=== PATIENT | female | born 1990 | race African-American/Black ===

== ENCOUNTER 2020-01-13 15:50 | Observation (INO) | payer MEDICAID, SELFPAY ==
[2020-01-14 03:30] VITALS: BMI 24.0
--- NOTE | 2020-01-14 03:34 | ECG_ITS ---
Test Reason : ALTER MENTAL Blood Pressure : / mmHG Vent. Rate : 083 BPM Atrial Rate : 083 BPM P-R Int : 136 ms QRS Dur : 074 ms QT Int : 416 ms P-R-T Axes : 060 027 055 degrees QTc Int : 488 ms Normal sinus rhythm Prolonged QT Abnormal ECG When compared with ECG of 17-AUG-2019 01:55, Nonspecific T wave abnormality is no longer Present Referred By: Rosalva Pennington Electronically Signed By:TYSON SANCHEZ
[2020-01-15] MEDS: diphenhydrAMINE HCL 50 MG/ML VIAL 25 MG IVPUSH (03:35)
[2020-01-15 04:00] VITALS: BP 165/85; PULSE 82; RESP 18; TEMP 36.6; O2SAT 100
[2020-01-15 08:00] VITALS: BP 149/80; PULSE 80; RESP 18; TEMP 36.7; O2SAT 100
[2020-01-15 09:10] VITALS: PULSE 81
[2020-01-15] MEDS: Insulin Lispro 100 UNIT/ML 3 ML VIAL SUBCUT ×2 (09:10→13:13)
[2020-01-15] MEDS: amLODIPine Besylate 10 MG TABLET PO (09:10)
[2020-01-15 09:11] VITALS: PULSE 81
[2020-01-15] MEDS: carvediloL 12.5 MG TABLET 37.5 MG PO (09:11)
[2020-01-15] MEDS: hydrOXYzine HCL 10 MG TABLET PO (09:12)
[2020-01-15] MEDS: Docusate Sodium 100 MG CAPSULE PO (09:12)
[2020-01-15] MEDS: Insulin Glargine,Hum.rec.anlog 100 UNIT/ML 10 ML VIAL 10 UNIT SUBCUT (09:12)
[2020-01-15] MEDS: Multivitamin TABLET 1 TAB PO (09:13)
[2020-01-15] MEDS: levETIRAcetam 500 MG TABLET 750 MG PO (09:13)
[2020-01-15] MEDS: 0.9 % Sodium Chloride Flush 3 ML SYRINGE 2 ML IVFLUSH ×3 (09:22→17:07)
[2020-01-15 09:47] LABS: Glucose, Whole Blood 485 mg/dL (60-115)
--- NOTE | 2020-01-15 10:36 | PM.PNNEP ---
Subjective Subjective Principal diagnosis: ESRD Interval history: Overall doing OK Had HD yesterday- uneventful Physical Exam Vital Signs and I&O and Narrative: Vital Signs and I&O: Vital Signs Temp 98.0 F 01/15/20 08:00 Pulse 81 01/15/20 09:11 Resp 18 01/15/20 08:00 BP 149/80 H 01/15/20 08:00 Pulse Ox 100 01/15/20 08:00 Intake & Output 01/14/20 01/15/20 01/15/20 18:59 06:59 18:59 Intake Total 240 / 240 240 / 240 Balance 240 / 240 240 / 240 Intake: Intake, Oral [place] unt 240 / 240 240 / 240 Other: Breakfast % Eate n 100% Urine Bathroom Body Mass Index 24.0 Const: General: cooperative HENMT: Head: Yes normal to inspection Neck: Neck: Yes supple Resp: Effort & Inspection: normal respiratory effort Cardio: Jugular venous distension: no JVD Heart sounds: no murmurs Skin: General skin exam: no rashes or lesions noted Neuro: Motor exam (neuro): no asterixis Assessment & Plan Assessment and plan (1) ESRD (end stage renal disease) on dialysis: Status: Chronic Assessment and Plan: HAd HD yesterday No s/s of uremia HAd again on Sunday Time Spent With Patient Time: Total time spent is greater than 50% in coordination of care (as documented) at patient's floor/unit and/or counseling patient:
[2020-01-15 11:19] LABS: Glucose, Whole Blood 225 mg/dL (60-115)
[2020-01-15 11:58] VITALS: BP 153/81; PULSE 82; RESP 18; TEMP 36.6; O2SAT 100
[2020-01-15 12:33] LABS: Anion Gap 19 (12-20); Blood Urea Nitrogen 33 mg/dL (9-16); Calcium 9.2 mg/dL (8.4-10.2); Carbon Dioxide 21 mmol/L (22-29); Chloride 95 mmol/L (96-108); Creatinine Clr Calc Pharmacy 9.9; Estimated Glomerular Filt Rate 7; Glucose Random 206 mg/dL (60-115); Potassium 4.5 mmol/l (3.3-5.1); Sodium 130 mmol/L (135-145)
--- NOTE | 2020-01-15 14:02 | PM.DS ---
DS: Providers Provider Date of admission: 01/13/20 15:50 Primary care physician: [facility] Consults: 01/14/20 03:37 Consult to Nephrology Routine Consulting Provider: Atul Burton Reason for consultation: Dialysis M, W, F Has provider been notified: Yes 01/14/20 03:39 Consult to Infectious Diseases Routine Consulting Provider: Griselda Castillo Reason for consultation: Right foot wound, on augmentin at home Has provider been notified: Yes DS: Diagnosis Discharge Diagnosis (1) ESRD (end stage renal disease) on dialysis: Status: Chronic (2) Hypoglycemia: Status: Acute (3) Hypothermia: Status: Acute DS: Summary Hospital Course Hospital Course: 29-year-old female with ESRD on hemodialysis admitted with hypoglycemia and seizure likely secondary to hypoglycemia and hypothermia, patient's blood glucose improved, hypothermia resolved, patient received hemodialysis, patient's hypoglycemia initially was resolved, again found to be hypoglycemia with blood glucose dropped to 19 on day of discharge, patient received 2 doses of dextrose 50 with improvement in blood sugar and repeat blood glucose was 110 mg , patient was making monitored for hypoglycemia, but patient refused to stay in the hospital, explained to patient hypoglycemia getting worse further and including and seizure, patient understands the risk, but still left against medical advise, patient was instructed to come to emergency room if she has any symptoms and instructed to check blood glucose frequently Time Spent with Patient Time attestation: Total time spent providing and/or coordinating discharge services: Physical Exam Vital Signs and I&O and Narrative: Vital Signs and I&O: Vital Signs Temp 97.8 F 01/15/20 11:58 Pulse 82 01/15/20 11:58 Resp 18 01/15/20 11:58 BP 153/81 H 01/15/20 11:58 Pulse Ox 100 01/15/20 11:58 Intake & Output 01/14/20 01/15/20 01/15/20 18:59 06:59 18:59 Intake Total 240 / 240 480 / 480 Balance 240 / 240 480 / 480 Intake: Intake, Oral [place] unt 240 / 240 480 / 480 Other: Breakfast % Eate n 100% Lunch % Eaten 100% Urine Bathroom Stool Bathroom Body Mass Index 24.0 Const: General: comfortable Resp: Effort & Inspection: normal respiratory effort DS: Data Data Completed and Pending Labs on day of discharge: Labs from last 24 hours 01/15/20 01/15/20 01/15/20 11:22 11:11 07:22 WBC RBC Hgb Hct MCV MCH MCHC RDW Coeff of [place] Plt Count MPV Immature Gran % (Auto) Neut % (Auto) Lymph % (Auto) Vance % (Auto) Eos % (Auto) Baso % (Auto) Abs Immat Gran (auto) Absolute Lymphs (auto) Absolute Monos (auto) Absolute Eos (auto) Absolute Basos (auto) Absolute Nucleated RBC Nucleated RBC % (auto) Absolute Neutrophils ESR PT INR APTT Sodium 130 L Potassium 4.5 Chloride 95 L Carbon Dioxide 21 L Bicarbonate Anion Gap 19 BUN 33 H Creatinine Estimated Creat Clear Estim Creat Clear Calc 9.9 Estimated GFR 7 Est GFR (Non-Af Amer) POC Glucose 225 H 485 H* Random Glucose 206 H Fasting Glucose Lactic Acid Calcium 9.2 Magnesium Total Bilirubin Direct Bilirubin AST ALT Alkaline Phosphatase Ammonia Creatine Kinase Troponin I High Sens C-Reactive Protein Total Protein Albumin Lipase TSH 3rd Generation Urine Color Urine Appearance Urine pH Ur Specific [place] Urine Protein Urine Glucose (UA) Urine Ketones Urine Blood Urine Nitrite Urine WBC (Auto) Urine RBC Urine WBC Ur Epithelial Cells Urine Bacteria Urine Yeast Salicylates Urine Opiates Screen Acetaminophen Ur Barbiturates Screen Phencyclidine Screen Ur Amphetamines Screen U Benzodiazepines Scrn Urine Cocaine Screen U Cannabinoids Screen Ethyl Alcohol 01/14/20 01/14/20 01/14/20 21:11 17:20 16:16 WBC RBC Hgb Hct MCV MCH MCHC RDW Coeff of [place] Plt Count MPV Immature Gran % (Auto) Neut % (Auto) Lymph % (Auto) Vance % (Auto) Eos % (Auto) Baso % (Auto) Abs Immat Gran (auto) Absolute Lymphs (auto) Absolute Monos (auto) Absolute Eos (auto) Absolute Basos (auto) Absolute Nucleated RBC Nucleated RBC % (auto) Absolute Neutrophils ESR PT INR APTT Sodium Potassium Chloride Carbon Dioxide Bicarbonate Anion Gap BUN Creatinine Estimated Creat Clear Estim Creat Clear Calc Estimated GFR Est GFR (Non-Af Amer) POC Glucose 372 H* 127 H 91 Random Glucose Fasting Glucose Lactic Acid Calcium Magnesium Total Bilirubin Direct Bilirubin AST ALT Alkaline Phosphatase Ammonia Creatine Kinase Troponin I High Sens C-Reactive Protein Total Protein Albumin Lipase TSH 3rd Generation Urine Color Urine Appearance Urine pH Ur Specific [place] Urine Protein Urine Glucose (UA) Urine Ketones Urine Blood Urine Nitrite Urine WBC (Auto) Urine RBC Urine WBC Ur Epithelial Cells Urine Bacteria Urine Yeast Salicylates Urine Opiates Screen Acetaminophen Ur Barbiturates Screen Phencyclidine Screen Ur Amphetamines Screen U Benzodiazepines Scrn Urine Cocaine Screen U Cannabinoids Screen Ethyl Alcohol 01/14/20 01/14/20 01/14/20 15:31 13:52 11:12 WBC RBC Hgb Hct MCV MCH MCHC RDW Coeff of [place] Plt Count MPV Immature Gran % (Auto) Neut % (Auto) Lymph % (Auto) Vance % (Auto) Eos % (Auto) Baso % (Auto) Abs Immat Gran (auto) Absolute Lymphs (auto) Absolute Monos (auto) Absolute Eos (auto) Absolute Basos (auto) Absolute Nucleated RBC Nucleated RBC % (auto) Absolute Neutrophils ESR PT INR APTT Sodium Potassium Chloride Carbon Dioxide Bicarbonate Anion Gap BUN Creatinine Estimated Creat Clear Estim Creat Clear Calc Estimated GFR Est GFR (Non-Af Amer) POC Glucose 113 70 324 H Random Glucose Fasting Glucose Lactic Acid Calcium Magnesium Total Bilirubin Direct Bilirubin AST ALT Alkaline Phosphatase Ammonia Creatine Kinase Troponin I High Sens C-Reactive Protein Total Protein Albumin Lipase TSH 3rd Generation Urine Color Urine Appearance Urine pH Ur Specific [place] Urine Protein Urine Glucose (UA) Urine Ketones Urine Blood Urine Nitrite Urine WBC (Auto) Urine RBC Urine WBC Ur Epithelial Cells Urine Bacteria Urine Yeast Salicylates Urine Opiates Screen Acetaminophen Ur Barbiturates Screen Phencyclidine Screen Ur Amphetamines Screen U Benzodiazepines Scrn Urine Cocaine Screen U Cannabinoids Screen Ethyl Alcohol 01/14/20 01/14/20 01/14/20 09:46 07:19 05:45 WBC 10.3 RBC 4.24 Hgb 11.1 L Hct 35.0 L MCV 82.5 MCH 26.2 L MCHC 31.7 RDW Coeff of [place] 22.5 H Plt Count 435 H MPV 10.7 Immature Gran % (Auto) 0.4 Neut % (Auto) 58.7 Lymph % (Auto) 30.6 Vance % (Auto) 7.0 Eos % (Auto) 2.4 Baso % (Auto) 0.9 Abs Immat Gran (auto) 0.04 H Absolute Lymphs (auto) 3.2 Absolute Monos (auto) 0.7 Absolute Eos (auto) 0.3 Absolute Basos (auto) 0.1 Absolute Nucleated RBC 0.000 Nucleated RBC % (auto) 0.0 Absolute Neutrophils 6.1 ESR PT INR APTT Sodium Potassium Chloride Carbon Dioxide Bicarbonate Anion Gap BUN Creatinine Estimated Creat Clear Estim Creat Clear Calc Estimated GFR Est GFR (Non-Af Amer) POC Glucose 427 H* 379 H* Random Glucose Fasting Glucose Lactic Acid Calcium Magnesium Total Bilirubin Direct Bilirubin AST ALT Alkaline Phosphatase Ammonia Creatine Kinase Troponin I High Sens C-Reactive Protein Total Protein Albumin Lipase TSH 3rd Generation Urine Color Urine Appearance Urine pH Ur Specific [place] Urine Protein Urine Glucose (UA) Urine Ketones Urine Blood Urine Nitrite Urine WBC (Auto) Urine RBC Urine WBC Ur Epithelial Cells Urine Bacteria Urine Yeast Salicylates Urine Opiates Screen Acetaminophen Ur Barbiturates Screen Phencyclidine Screen Ur Amphetamines Screen U Benzodiazepines Scrn Urine Cocaine Screen U Cannabinoids Screen Ethyl Alcohol 01/14/20 01/14/20 01/13/20 05:45 01:25 21:37 WBC RBC Hgb Hct MCV MCH MCHC RDW Coeff of [place] Plt Count MPV Immature Gran % (Auto) Neut % (Auto) Lymph % (Auto) Vance % (Auto) Eos % (Auto) Baso % (Auto) Abs Immat Gran (auto) Absolute Lymphs (auto) Absolute Monos (auto) Absolute Eos (auto) Absolute Basos (auto) Absolute Nucleated RBC Nucleated RBC % (auto) Absolute Neutrophils ESR PT INR APTT Sodium 132 L Potassium 5.6 H Chloride 90 L Carbon Dioxide Bicarbonate 22 Anion Gap 26 H BUN 58 H Creatinine 10.23 H* Estimated Creat Clear 6.6 Estim Creat Clear Calc Estimated GFR Est GFR (Non-Af Amer) 5 POC Glucose 86 170 H Random Glucose Fasting Glucose 370 H* D Lactic Acid Calcium 8.9 Magnesium Total Bilirubin Direct Bilirubin AST ALT Alkaline Phosphatase Ammonia Creatine Kinase Troponin I High Sens C-Reactive Protein Total Protein Albumin Lipase TSH 3rd Generation Urine Color Urine Appearance Urine pH Ur Specific [place] Urine Protein Urine Glucose (UA) Urine Ketones Urine Blood Urine Nitrite Urine WBC (Auto) Urine RBC Urine WBC Ur Epithelial Cells Urine Bacteria Urine Yeast Salicylates Urine Opiates Screen Acetaminophen Ur Barbiturates Screen Phencyclidine Screen Ur Amphetamines Screen U Benzodiazepines Scrn Urine Cocaine Screen U Cannabinoids Screen Ethyl Alcohol 01/13/20 01/13/20 01/13/20 17:44 17:44 17:43 WBC RBC Hgb Hct MCV MCH MCHC RDW Coeff of [place] Plt Count MPV Immature Gran % (Auto) Neut % (Auto) Lymph % (Auto) Vance % (Auto) Eos % (Auto) Baso % (Auto) Abs Immat Gran (auto) Absolute Lymphs (auto) Absolute Monos (auto) Absolute Eos (auto) Absolute Basos (auto) Absolute Nucleated RBC Nucleated RBC % (auto) Absolute Neutrophils ESR PT INR APTT Sodium Potassium Chloride Carbon Dioxide Bicarbonate Anion Gap BUN Creatinine Estimated Creat Clear Estim Creat Clear Calc Estimated GFR Est GFR (Non-Af Amer) POC Glucose 282 H Random Glucose Fasting Glucose Lactic Acid Calcium Magnesium Total Bilirubin Direct Bilirubin AST ALT Alkaline Phosphatase Ammonia Creatine Kinase Troponin I High Sens C-Reactive Protein Total Protein Albumin Lipase TSH 3rd Generation Urine Color YELLOW Urine Appearance HAZY Urine pH 8.5 H Ur Specific [place] 1.015 Urine Protein 3+ H Urine Glucose (UA) 500 H Urine Ketones NEG Urine Blood 1+ H Urine Nitrite NEG Urine WBC (Auto) NEG Urine RBC 1-4 Urine WBC 1-4 Ur Epithelial Cells 3+ Urine Bacteria TRACE Urine Yeast TRACE Salicylates Urine Opiates Screen NOT DETECTED Acetaminophen Ur Barbiturates Screen NOT DETECTED Phencyclidine Screen NOT DETECTED Ur Amphetamines Screen NOT DETECTED U Benzodiazepines Scrn NOT DETECTED Urine Cocaine Screen NOT DETECTED U Cannabinoids Screen NOT DETECTED Ethyl Alcohol 01/13/20 01/13/20 01/13/20 14:58 11:26 11:26 WBC RBC Hgb Hct MCV MCH MCHC RDW Coeff of [place] Plt Count MPV Immature Gran % (Auto) Neut % (Auto) Lymph % (Auto) Vance % (Auto) Eos % (Auto) Baso % (Auto) Abs Immat Gran (auto) Absolute Lymphs (auto) Absolute Monos (auto) Absolute Eos (auto) Absolute Basos (auto) Absolute Nucleated RBC Nucleated RBC % (auto) Absolute Neutrophils ESR 59 H PT 13.7 H INR 1.2 H APTT 45.7 H Sodium Potassium Chloride Carbon Dioxide Bicarbonate Anion Gap BUN Creatinine Estimated Creat Clear Estim Creat Clear Calc Estimated GFR Est GFR (Non-Af Amer) POC Glucose 265 H Random Glucose Fasting Glucose Lactic Acid Calcium Magnesium Total Bilirubin Direct Bilirubin AST ALT Alkaline Phosphatase Ammonia Creatine Kinase Troponin I High Sens C-Reactive Protein Total Protein Albumin Lipase TSH 3rd Generation Urine Color Urine Appearance Urine pH Ur Specific [place] Urine Protein Urine Glucose (UA) Urine Ketones Urine Blood Urine Nitrite Urine WBC (Auto) Urine RBC Urine WBC Ur Epithelial Cells Urine Bacteria Urine Yeast Salicylates Urine Opiates Screen Acetaminophen Ur Barbiturates Screen Phencyclidine Screen Ur Amphetamines Screen U Benzodiazepines Scrn Urine Cocaine Screen U Cannabinoids Screen Ethyl Alcohol 01/13/20 01/13/20 01/13/20 11:26 11:26 11:26 WBC 19.0 H RBC 5.08 Hgb 13.2 Hct 42.4 MCV 83.5 MCH 26.0 L MCHC 31.1 RDW Coeff of [place] 22.6 H Plt Count 468 H MPV 10.1 Immature Gran % (Auto) 0.6 H Neut % (Auto) 88.6 H Lymph % (Auto) 7.6 L Vance % (Auto) 2.2 Eos % (Auto) 0.6 Baso % (Auto) 0.4 Abs Immat Gran (auto) 0.12 H Absolute Lymphs (auto) 1.5 Absolute Monos (auto) 0.4 Absolute Eos (auto) 0.1 Absolute Basos (auto) 0.1 Absolute Nucleated RBC 0.000 Nucleated RBC % (auto) 0.0 Absolute Neutrophils 16.8 H ESR PT INR APTT Sodium Potassium Chloride Carbon Dioxide Bicarbonate Anion Gap BUN Creatinine Estimated Creat Clear Estim Creat Clear Calc Estimated GFR Est GFR (Non-Af Amer) POC Glucose Random Glucose Fasting Glucose Lactic Acid Calcium Magnesium Total Bilirubin Direct Bilirubin AST ALT Alkaline Phosphatase Ammonia Creatine Kinase Troponin I High Sens 5.3 C-Reactive Protein Total Protein Albumin Lipase TSH 3rd Generation Urine Color Urine Appearance Urine pH Ur Specific [place] Urine Protein Urine Glucose (UA) Urine Ketones Urine Blood Urine Nitrite Urine WBC (Auto) Urine RBC Urine WBC Ur Epithelial Cells Urine Bacteria Urine Yeast Salicylates Urine Opiates Screen Acetaminophen Ur Barbiturates Screen Phencyclidine Screen Ur Amphetamines Screen U Benzodiazepines Scrn Urine Cocaine Screen U Cannabinoids Screen Ethyl Alcohol < 10 01/13/20 01/13/20 01/13/20 11:26 11:26 11:26 WBC RBC Hgb Hct MCV MCH MCHC RDW Coeff of [place] Plt Count MPV Immature Gran % (Auto) Neut % (Auto) Lymph % (Auto) Vance % (Auto) Eos % (Auto) Baso % (Auto) Abs Immat Gran (auto) Absolute Lymphs (auto) Absolute Monos (auto) Absolute Eos (auto) Absolute Basos (auto) Absolute Nucleated RBC Nucleated RBC % (auto) Absolute Neutrophils ESR PT INR APTT Sodium Potassium Chloride Carbon Dioxide Bicarbonate Anion Gap BUN Creatinine Estimated Creat Clear Estim Creat Clear Calc Estimated GFR Est GFR (Non-Af Amer) POC Glucose Random Glucose Fasting Glucose Lactic Acid 1.3 Calcium Magnesium Total Bilirubin Direct Bilirubin AST ALT Alkaline Phosphatase Ammonia 33 Creatine Kinase 188 H Troponin I High Sens C-Reactive Protein Total Protein Albumin Lipase TSH 3rd Generation Urine Color Urine Appearance Urine pH Ur Specific [place] Urine Protein Urine Glucose (UA) Urine Ketones Urine Blood Urine Nitrite Urine WBC (Auto) Urine RBC Urine WBC Ur Epithelial Cells Urine Bacteria Urine Yeast Salicylates Urine Opiates Screen Acetaminophen Ur Barbiturates Screen Phencyclidine Screen Ur Amphetamines Screen U Benzodiazepines Scrn Urine Cocaine Screen U Cannabinoids Screen Ethyl Alcohol 01/13/20 01/13/20 11:26 10:34 WBC RBC Hgb Hct MCV MCH MCHC RDW Coeff of [place] Plt Count MPV Immature Gran % (Auto) Neut % (Auto) Lymph % (Auto) Vance % (Auto) Eos % (Auto) Baso % (Auto) Abs Immat Gran (auto) Absolute Lymphs (auto) Absolute Monos (auto) Absolute Eos (auto) Absolute Basos (auto) Absolute Nucleated RBC Nucleated RBC % (auto) Absolute Neutrophils ESR PT INR APTT Sodium 138 Potassium 5.0 Chloride 92 L Carbon Dioxide Bicarbonate 29 Anion Gap 22 H BUN 40 H Creatinine 8.53 H* Estimated Creat Clear 8.0 Estim Creat Clear Calc Estimated GFR Est GFR (Non-Af Amer) 6 POC Glucose 84 Random Glucose 144 H D Fasting Glucose Lactic Acid Calcium Magnesium 2.5 Total Bilirubin 0.5 Direct Bilirubin 0.2 AST 18 D ALT 14 Alkaline Phosphatase 143 H D Ammonia Creatine Kinase Troponin I High Sens C-Reactive Protein 1.85 H Total Protein 9.0 H Albumin 4.3 D Lipase 32 TSH 3rd Generation 1.83 Urine Color Urine Appearance Urine pH Ur Specific [place] Urine Protein Urine Glucose (UA) Urine Ketones Urine Blood Urine Nitrite Urine WBC (Auto) Urine RBC Urine WBC Ur Epithelial Cells Urine Bacteria Urine Yeast Salicylates < 5.0 L Urine Opiates Screen Acetaminophen < 1 Ur Barbiturates Screen Phencyclidine Screen Ur Amphetamines Screen U Benzodiazepines Scrn Urine Cocaine Screen U Cannabinoids Screen Ethyl Alcohol Discharge Plan Discharge Anticipated Discharge Date/Time: 01/15/20 13:58 Patient Disposition: Left Against Medical Advice Referrals: [facility] [Primary Care Provider] - Discharge Medications: Continued LiquaCel 100 15-100 gram-kcal/30 mL Liquid 30 ea PO BID RF: 0 amlodipine 10 mg Tablet 10 mg PO DAILY RF: 0 amoxicillin-pot clavulanate [Augmentin] 500-125 mg Tablet 1 tab PO Q24H RF: 0 carvedilol 25 mg Tablet 37.5 mg PO BID RF: 0 cetirizine 10 mg Tablet 10 mg PO DAILY RF: 0 cinacalcet 30 mg Tablet 30 mg PO MOWEFR@1000 RF: 0 docusate sodium 100 mg Capsule 100 mg PO DAILY RF: 0 ergocalciferol (vitamin D2) 1,250 mcg (50,000 unit) Capsule 1,250 mcg PO MO@1000 RF: 0 Lantus U-100 Insulin 100 unit/mL Solution 10 unit SUBCUT QAM RF: 0 hydroxyzine HCl 10 mg Tablet 10 mg PO TID RF: 0 multivitamin [Daily-Alyx] Tablet 1 tab PO DAILY RF: 0 levetiracetam 750 mg Tablet 750 mg PO BID RF: 0 insulin lispro [Humalog U-100 Insulin] 100 unit/mL Solution 1 sliding scale dose SUBCUT USEASDIRECTD RF: 0 Velphoro 500 mg Tablet,Chewable 500 mg PO TIDWMEAL RF: 0 Discharge Orders: Discharge Order (Routine); Ordered 01/16/20 Ordered By: Igor Ramirez Activity on Discharge: As tolerated Discharge Date/Time: 01/15/20 17:27 Care Plan Goals: see discharge instruction Health Concerns: see discharge instructions Plan of Treatment: see discharge instructions
[2020-01-15] MEDS: Dextrose 50 % 25 GM/50 ML SYRINGE IVPUSH ×2 (14:45→15:27)
[2020-01-15 14:48] LABS: Glucose, Whole Blood 19 mg/dL (60-115)
[2020-01-15 14:48] LABS: Glucose, Whole Blood 19 mg/dL (60-115)
--- NOTE | 2020-01-15 15:05 | P.PNIM_ITS ---
Subjective Subjective Date of Service: 01/15/20 Interval History: patient seen and examined at bedside patient reported feeling better patient became hypoglycemia later in the afternoon Physical Exam Vital Signs and I&O and Narrative: Vital Signs and I&O: Vital Signs Temp 97.8 F 01/15/20 11:58 Pulse 82 01/15/20 11:58 Resp 18 01/15/20 11:58 BP 153/81 H 01/15/20 11:58 Pulse Ox 100 01/15/20 11:58 Intake & Output 01/14/20 01/15/20 01/15/20 18:59 06:59 18:59 Intake Total 240 / 240 480 / 480 Balance 240 / 240 480 / 480 Intake: Intake, Oral Ramez unt 240 / 240 480 / 480 Other: Breakfast % Eate n 100% Lunch % Eaten 100% Urine Bathroom Stool Bathroom Body Mass Index 24.0 Resp: Effort & Inspection: normal respiratory effort Cardio: Jugular venous distension: no JVD GI: Inspection: Yes normal to inspection and Yes distended Objective Data Current Medications Generic Name Dose Route Start Last Admin Trade Name Keyonq PRN Reason Stop Dose Admin Acetaminophen 650 mg 01/15/20 00:01 Acetaminophen 325 Mg Tablet PO Q6H PRN FEVER/PAIN, MILD (SCALE 1-3) Amlodipine Besylate 10 mg 01/15/20 09:00 01/15/20 09:10 Amlodipine Besylate 10 Mg Tablet PO 10 mg DAILY [facility] Administration Protocol Carvedilol 37.5 mg 01/15/20 09:00 01/15/20 09:11 Carvedilol 12.5 Mg Tablet PO 37.5 mg BID [facility] Administration Protocol Cinacalcet 30 mg 01/16/20 09:00 Cinacalcet Hcl 30 Mg Tablet PO MOWEFR@0900 [facility] Dextrose 25 gm 01/15/20 14:58 Dextrose 50 % 25 Gm/50 Ml Syringe IVPUSH 01/15/20 14:59 STAT STA Dextrose 25 gm 01/15/20 14:58 Dextrose 50 % 25 Gm/50 Ml Syringe IVPUSH 01/15/20 14:59 STAT STA Diphenhydramine HCl 25 mg 01/15/20 00:01 01/15/20 03:35 Diphenhydramine Hcl 50 Mg/Ml Vial IVPUSH 25 mg Q8H PRN Administration Itching Docusate Sodium 100 mg 01/15/20 09:00 01/15/20 09:12 Docusate Sodium 100 Mg Capsule PO 100 mg DAILY [facility] Administration Ergocalciferol 1.25 mg 01/19/20 09:00 Ergocalciferol (Vitamin D2) 1.25 Mg Capsule PO Mo@0900 [facility] Heparin Sodium (Porcine) 5,000 unit 01/16/20 16:45 Heparin Sodium,Porcine 5,000 Unit/Ml Vial INTRACATH MOWEFR@1645 [facility] Heparin Sodium (Porcine) 5,000 unit 01/15/20 04:00 01/15/20 04:01 Heparin Sodium,Porcine 5,000 Unit/Ml Vial SUBCUT Not Given Q12H [facility] Hydroxyzine HCl 10 mg 01/15/20 09:00 01/15/20 09:12 Hydroxyzine Hcl 10 Mg Tablet PO 10 mg TID [facility] Administration Insulin Glargine 10 unit 01/15/20 09:00 01/15/20 09:12 Insulin Glargine,Hum.Rec.Anlog 100 Unit/Ml 10 Ml Vial SUBCUT 10 unit DAILY [facility] Administration Insulin Human Lispro 0 unit 01/15/20 08:00 01/15/20 13:13 Insulin Lispro 100 Unit/Ml 3 Ml Vial SUBCUT 6 unit QIDACHS [facility] Administration Protocol Levetiracetam 750 mg 01/15/20 09:00 01/15/20 09:13 Levetiracetam 500 Mg Tablet PO 750 mg BID [facility] Administration Multivitamins/Vitamin C 1 tab 01/15/20 09:00 01/15/20 09:13 Multivitamin Tablet PO 1 tab DAILY [facility] Administration Ondansetron HCl 4 mg 01/15/20 00:01 Ondansetron Hcl 4 Mg/2 Ml Vial IVPUSH Q8H PRN Nausea and Vomiting Oxycodone HCl 5 mg 01/15/20 00:01 Oxycodone Hcl Immed Release 5 Mg Tablet PO Q4H PRN Pain, Mild (Pain Scale 1-3) Senna 17.2 mg 01/15/20 00:01 Sennosides 8.6 Mg Tablet PO BEDTIME PRN Constipation Sodium Chloride 2 ml 01/15/20 00:00 01/15/20 09:22 0.9 % Sodium Chloride Flush 3 Ml Syringe IVFLUSH 2 ml QSHIFT [facility] Administration Labs CBC & Chem 7: 01/14/20 05:45 01/15/20 11:22 Labs: Laboratory Results - last 24 hr 01/13/20 01/13/20 01/13/20 10:34 11:26 11:26 MCV MCH MCHC RDW Coeff of [place] Plt Count MPV Immature Gran % (Auto) Neut % (Auto) Lymph % (Auto) Mayes % (Auto) Eos % (Auto) Baso % (Auto) Abs Immat Gran (auto) Absolute Lymphs (auto) Absolute Monos (auto) Absolute Eos (auto) Absolute Basos (auto) Absolute Nucleated RBC Nucleated RBC % (auto) Absolute Neutrophils ESR PT INR APTT Bicarbonate 29 Anion Gap 22 H Estimated Creat Clear 8.0 Estim Creat Clear Calc Estimated GFR Est GFR (Non-Af Amer) 6 POC Glucose 84 Random Glucose 144 H D Fasting Glucose Lactic Acid Calcium Magnesium 2.5 Total Bilirubin 0.5 Direct Bilirubin 0.2 AST 18 D ALT 14 Alkaline Phosphatase 143 H D Ammonia 33 Troponin I High Sens C-Reactive Protein 1.85 H Total Protein 9.0 H Albumin 4.3 D Lipase 32 TSH 3rd Generation 1.83 Urine Color Urine Appearance Urine pH Ur Specific [place] Urine Protein Urine Glucose (UA) Urine Ketones Urine Blood Urine Nitrite Urine WBC (Auto) Urine RBC Urine WBC Ur Epithelial Cells Urine Bacteria Urine Yeast Salicylates < 5.0 L Urine Opiates Screen Acetaminophen < 1 Ur Barbiturates Screen Phencyclidine Screen Ur Amphetamines Screen U Benzodiazepines Scrn Urine Cocaine Screen U Cannabinoids Screen Ethyl Alcohol 01/13/20 01/13/20 01/13/20 11:26 11:26 11:26 MCV MCH MCHC RDW Coeff of [place] Plt Count MPV Immature Gran % (Auto) Neut % (Auto) Lymph % (Auto) Mayes % (Auto) Eos % (Auto) Baso % (Auto) Abs Immat Gran (auto) Absolute Lymphs (auto) Absolute Monos (auto) Absolute Eos (auto) Absolute Basos (auto) Absolute Nucleated RBC Nucleated RBC % (auto) Absolute Neutrophils ESR PT INR APTT Bicarbonate Anion Gap Estimated Creat Clear Estim Creat Clear Calc Estimated GFR Est GFR (Non-Af Amer) POC Glucose Random Glucose Fasting Glucose Lactic Acid 1.3 Calcium Magnesium Total Bilirubin Direct Bilirubin AST ALT Alkaline Phosphatase Ammonia Troponin I High Sens 5.3 C-Reactive Protein Total Protein Albumin Lipase TSH 3rd Generation Urine Color Urine Appearance Urine pH Ur Specific [place] Urine Protein Urine Glucose (UA) Urine Ketones Urine Blood Urine Nitrite Urine WBC (Auto) Urine RBC Urine WBC Ur Epithelial Cells Urine Bacteria Urine Yeast Salicylates Urine Opiates Screen Acetaminophen Ur Barbiturates Screen Phencyclidine Screen Ur Amphetamines Screen U Benzodiazepines Scrn Urine Cocaine Screen U Cannabinoids Screen Ethyl Alcohol < 10 01/13/20 01/13/20 01/13/20 11:26 11:26 11:26 MCV 83.5 MCH 26.0 L MCHC 31.1 RDW Coeff of [place] 22.6 H Plt Count 468 H MPV 10.1 Immature Gran % (Auto) 0.6 H Neut % (Auto) 88.6 H Lymph % (Auto) 7.6 L Mayes % (Auto) 2.2 Eos % (Auto) 0.6 Baso % (Auto) 0.4 Abs Immat Gran (auto) 0.12 H Absolute Lymphs (auto) 1.5 Absolute Monos (auto) 0.4 Absolute Eos (auto) 0.1 Absolute Basos (auto) 0.1 Absolute Nucleated RBC 0.000 Nucleated RBC % (auto) 0.0 Absolute Neutrophils 16.8 H ESR 59 H PT 13.7 H INR 1.2 H APTT 45.7 H Bicarbonate Anion Gap Estimated Creat Clear Estim Creat Clear Calc Estimated GFR Est GFR (Non-Af Amer) POC Glucose Random Glucose Fasting Glucose Lactic Acid Calcium Magnesium Total Bilirubin Direct Bilirubin AST ALT Alkaline Phosphatase Ammonia Troponin I High Sens C-Reactive Protein Total Protein Albumin Lipase TSH 3rd Generation Urine Color Urine Appearance Urine pH Ur Specific [place] Urine Protein Urine Glucose (UA) Urine Ketones Urine Blood Urine Nitrite Urine WBC (Auto) Urine RBC Urine WBC Ur Epithelial Cells Urine Bacteria Urine Yeast Salicylates Urine Opiates Screen Acetaminophen Ur Barbiturates Screen Phencyclidine Screen Ur Amphetamines Screen U Benzodiazepines Scrn Urine Cocaine Screen U Cannabinoids Screen Ethyl Alcohol 01/13/20 01/13/20 01/13/20 14:58 17:43 17:44 MCV MCH MCHC RDW Coeff of [place] Plt Count MPV Immature Gran % (Auto) Neut % (Auto) Lymph % (Auto) Mayes % (Auto) Eos % (Auto) Baso % (Auto) Abs Immat Gran (auto) Absolute Lymphs (auto) Absolute Monos (auto) Absolute Eos (auto) Absolute Basos (auto) Absolute Nucleated RBC Nucleated RBC % (auto) Absolute Neutrophils ESR PT INR APTT Bicarbonate Anion Gap Estimated Creat Clear Estim Creat Clear Calc Estimated GFR Est GFR (Non-Af Amer) POC Glucose 265 H 282 H Random Glucose Fasting Glucose Lactic Acid Calcium Magnesium Total Bilirubin Direct Bilirubin AST ALT Alkaline Phosphatase Ammonia Troponin I High Sens C-Reactive Protein Total Protein Albumin Lipase TSH 3rd Generation Urine Color Urine Appearance Urine pH Ur Specific [place] Urine Protein Urine Glucose (UA) Urine Ketones Urine Blood Urine Nitrite Urine WBC (Auto) Urine RBC Urine WBC Ur Epithelial Cells Urine Bacteria Urine Yeast Salicylates Urine Opiates Screen NOT DETECTED Acetaminophen Ur Barbiturates Screen NOT DETECTED Phencyclidine Screen NOT DETECTED Ur Amphetamines Screen NOT DETECTED U Benzodiazepines Scrn NOT DETECTED Urine Cocaine Screen NOT DETECTED U Cannabinoids Screen NOT DETECTED Ethyl Alcohol 01/13/20 01/13/20 01/14/20 17:44 21:37 01:25 MCV MCH MCHC RDW Coeff of [place] Plt Count MPV Immature Gran % (Auto) Neut % (Auto) Lymph % (Auto) Mayes % (Auto) Eos % (Auto) Baso % (Auto) Abs Immat Gran (auto) Absolute Lymphs (auto) Absolute Monos (auto) Absolute Eos (auto) Absolute Basos (auto) Absolute Nucleated RBC Nucleated RBC % (auto) Absolute Neutrophils ESR PT INR APTT Bicarbonate Anion Gap Estimated Creat Clear Estim Creat Clear Calc Estimated GFR Est GFR (Non-Af Amer) POC Glucose 170 H 86 Random Glucose Fasting Glucose Lactic Acid Calcium Magnesium Total Bilirubin Direct Bilirubin AST ALT Alkaline Phosphatase Ammonia Troponin I High Sens C-Reactive Protein Total Protein Albumin Lipase TSH 3rd Generation Urine Color YELLOW Urine Appearance HAZY Urine pH 8.5 H Ur Specific [place] 1.015 Urine Protein 3+ H Urine Glucose (UA) 500 H Urine Ketones NEG Urine Blood 1+ H Urine Nitrite NEG Urine WBC (Auto) NEG Urine RBC 1-4 Urine WBC 1-4 Ur Epithelial Cells 3+ Urine Bacteria TRACE Urine Yeast TRACE Salicylates Urine Opiates Screen Acetaminophen Ur Barbiturates Screen Phencyclidine Screen Ur Amphetamines Screen U Benzodiazepines Scrn Urine Cocaine Screen U Cannabinoids Screen Ethyl Alcohol 01/14/20 01/14/20 01/14/20 05:45 05:45 07:19 MCV 82.5 MCH 26.2 L MCHC 31.7 RDW Coeff of [place] 22.5 H Plt Count 435 H MPV 10.7 Immature Gran % (Auto) 0.4 Neut % (Auto) 58.7 Lymph % (Auto) 30.6 Mayes % (Auto) 7.0 Eos % (Auto) 2.4 Baso % (Auto) 0.9 Abs Immat Gran (auto) 0.04 H Absolute Lymphs (auto) 3.2 Absolute Monos (auto) 0.7 Absolute Eos (auto) 0.3 Absolute Basos (auto) 0.1 Absolute Nucleated RBC 0.000 Nucleated RBC % (auto) 0.0 Absolute Neutrophils 6.1 ESR PT INR APTT Bicarbonate 22 Anion Gap 26 H Estimated Creat Clear 6.6 Estim Creat Clear Calc Estimated GFR Est GFR (Non-Af Amer) 5 POC Glucose 379 H* Random Glucose Fasting Glucose 370 H* D Lactic Acid Calcium 8.9 Magnesium Total Bilirubin Direct Bilirubin AST ALT Alkaline Phosphatase Ammonia Troponin I High Sens C-Reactive Protein Total Protein Albumin Lipase TSH 3rd Generation Urine Color Urine Appearance Urine pH Ur Specific [place] Urine Protein Urine Glucose (UA) Urine Ketones Urine Blood Urine Nitrite Urine WBC (Auto) Urine RBC Urine WBC Ur Epithelial Cells Urine Bacteria Urine Yeast Salicylates Urine Opiates Screen Acetaminophen Ur Barbiturates Screen Phencyclidine Screen Ur Amphetamines Screen U Benzodiazepines Scrn Urine Cocaine Screen U Cannabinoids Screen Ethyl Alcohol 01/14/20 01/14/20 01/14/20 09:46 11:12 13:52 MCV MCH MCHC RDW Coeff of [place] Plt Count MPV Immature Gran % (Auto) Neut % (Auto) Lymph % (Auto) Mayes % (Auto) Eos % (Auto) Baso % (Auto) Abs Immat Gran (auto) Absolute Lymphs (auto) Absolute Monos (auto) Absolute Eos (auto) Absolute Basos (auto) Absolute Nucleated RBC Nucleated RBC % (auto) Absolute Neutrophils ESR PT INR APTT Bicarbonate Anion Gap Estimated Creat Clear Estim Creat Clear Calc Estimated GFR Est GFR (Non-Af Amer) POC Glucose 427 H* 324 H 70 Random Glucose Fasting Glucose Lactic Acid Calcium Magnesium Total Bilirubin Direct Bilirubin AST ALT Alkaline Phosphatase Ammonia Troponin I High Sens C-Reactive Protein Total Protein Albumin Lipase TSH 3rd Generation Urine Color Urine Appearance Urine pH Ur Specific [place] Urine Protein Urine Glucose (UA) Urine Ketones Urine Blood Urine Nitrite Urine WBC (Auto) Urine RBC Urine WBC Ur Epithelial Cells Urine Bacteria Urine Yeast Salicylates Urine Opiates Screen Acetaminophen Ur Barbiturates Screen Phencyclidine Screen Ur Amphetamines Screen U Benzodiazepines Scrn Urine Cocaine Screen U Cannabinoids Screen Ethyl Alcohol 01/14/20 01/14/20 01/14/20 15:31 16:16 17:20 MCV MCH MCHC RDW Coeff of [place] Plt Count MPV Immature Gran % (Auto) Neut % (Auto) Lymph % (Auto) Mayes % (Auto) Eos % (Auto) Baso % (Auto) Abs Immat Gran (auto) Absolute Lymphs (auto) Absolute Monos (auto) Absolute Eos (auto) Absolute Basos (auto) Absolute Nucleated RBC Nucleated RBC % (auto) Absolute Neutrophils ESR PT INR APTT Bicarbonate Anion Gap Estimated Creat Clear Estim Creat Clear Calc Estimated GFR Est GFR (Non-Af Amer) POC Glucose 113 91 127 H Random Glucose Fasting Glucose Lactic Acid Calcium Magnesium Total Bilirubin Direct Bilirubin AST ALT Alkaline Phosphatase Ammonia Troponin I High Sens C-Reactive Protein Total Protein Albumin Lipase TSH 3rd Generation Urine Color Urine Appearance Urine pH Ur Specific [place] Urine Protein Urine Glucose (UA) Urine Ketones Urine Blood Urine Nitrite Urine WBC (Auto) Urine RBC Urine WBC Ur Epithelial Cells Urine Bacteria Urine Yeast Salicylates Urine Opiates Screen Acetaminophen Ur Barbiturates Screen Phencyclidine Screen Ur Amphetamines Screen U Benzodiazepines Scrn Urine Cocaine Screen U Cannabinoids Screen Ethyl Alcohol 01/14/20 01/15/20 01/15/20 21:11 07:22 11:11 MCV MCH MCHC RDW Coeff of [place] Plt Count MPV Immature Gran % (Auto) Neut % (Auto) Lymph % (Auto) Mayes % (Auto) Eos % (Auto) Baso % (Auto) Abs Immat Gran (auto) Absolute Lymphs (auto) Absolute Monos (auto) Absolute Eos (auto) Absolute Basos (auto) Absolute Nucleated RBC Nucleated RBC % (auto) Absolute Neutrophils ESR PT INR APTT Bicarbonate Anion Gap Estimated Creat Clear Estim Creat Clear Calc Estimated GFR Est GFR (Non-Af Amer) POC Glucose 372 H* 485 H* 225 H Random Glucose Fasting Glucose Lactic Acid Calcium Magnesium Total Bilirubin Direct Bilirubin AST ALT Alkaline Phosphatase Ammonia Troponin I High Sens C-Reactive Protein Total Protein Albumin Lipase TSH 3rd Generation Urine Color Urine Appearance Urine pH Ur Specific [place] Urine Protein Urine Glucose (UA) Urine Ketones Urine Blood Urine Nitrite Urine WBC (Auto) Urine RBC Urine WBC Ur Epithelial Cells Urine Bacteria Urine Yeast Salicylates Urine Opiates Screen Acetaminophen Ur Barbiturates Screen Phencyclidine Screen Ur Amphetamines Screen U Benzodiazepines Scrn Urine Cocaine Screen U Cannabinoids Screen Ethyl Alcohol 01/15/20 01/15/20 01/15/20 11:22 14:41 14:45 MCV MCH MCHC RDW Coeff of [place] Plt Count MPV Immature Gran % (Auto) Neut % (Auto) Lymph % (Auto) Mayes % (Auto) Eos % (Auto) Baso % (Auto) Abs Immat Gran (auto) Absolute Lymphs (auto) Absolute Monos (auto) Absolute Eos (auto) Absolute Basos (auto) Absolute Nucleated RBC Nucleated RBC % (auto) Absolute Neutrophils ESR PT INR APTT Bicarbonate Anion Gap 19 Estimated Creat Clear Estim Creat Clear Calc 9.9 Estimated GFR 7 Est GFR (Non-Af Amer) POC Glucose 19 L* 19 L* Random Glucose 206 H Fasting Glucose Lactic Acid Calcium 9.2 Magnesium Total Bilirubin Direct Bilirubin AST ALT Alkaline Phosphatase Ammonia Troponin I High Sens C-Reactive Protein Total Protein Albumin Lipase TSH 3rd Generation Urine Color Urine Appearance Urine pH Ur Specific [place] Urine Protein Urine Glucose (UA) Urine Ketones Urine Blood Urine Nitrite Urine WBC (Auto) Urine RBC Urine WBC Ur Epithelial Cells Urine Bacteria Urine Yeast Salicylates Urine Opiates Screen Acetaminophen Ur Barbiturates Screen Phencyclidine Screen Ur Amphetamines Screen U Benzodiazepines Scrn Urine Cocaine Screen U Cannabinoids Screen Ethyl Alcohol
[2020-01-15 15:20] LABS: Glucose, Whole Blood 124 mg/dL (60-115)
[2020-01-15 15:20] LABS: Glucose, Whole Blood 227 mg/dL (60-115)
[2020-01-15 15:41] VITALS: BP 136/78; PULSE 74; RESP 18; TEMP 36.4; O2SAT 100
--- NOTE | 2020-01-15 16:14 | PC.NURSE ---
poc prior to dc 19, pt symptomatic with hypoglycemia: diaphoretic and lethargic, remained alert. pt taking po orange juice. md colon aware, 2 amps d50 given as ordered. pt responded well, see labs for documentation. 227 after initial amp, 124 prior to second. pt alert and oriented x 3, dr colon notified. dc on hold at this time.
[2020-01-15 16:25] LABS: Glucose, Whole Blood 171 mg/dL (60-115)
--- NOTE | 2020-03-24 00:11 | CONS_ITS ---
DATE OF SERVICE: 01/14/2020 HISTORY OF PRESENT ILLNESS: I am asked to see this patient for evaluation for concern over infection of foot. The patient presents to the hospital with mental status changes, concern over hypoglycemia. She has end-stage renal disease and symptoms are present for a day. She has no nausea, vomiting, diarrhea, or rash. PAST MEDICAL HISTORY: Significant for end-stage renal disease, hypertension, and seizure. MEDICATIONS: Include insulin, Augmentin, and Tylenol. ALLERGIES: NO ANTIBIOTIC ALLERGIES. SOCIAL HISTORY: No smoking, alcohol, or HIV risk. FAMILY HISTORY: Noncontributory. REVIEW OF SYSTEMS: GENERAL: Fatigue. HEENT: Negative. LUNGS: Negative. HEART: Negative. ABDOMEN: Negative. EXTREMITIES: Negative. PHYSICAL EXAMINATION: VITAL SIGNS: Stable. Afebrile. HEENT: Pupils equally round, reactive to light and accommodation. Oropharynx clear. LUNGS: Clear. HEART: Regular rate and rhythm. ABDOMEN: Soft and nontender. EXTREMITIES: Nontender. There is a small lateral foot wound near 5th toe. SKIN: Clear. LABORATORY DATA: Shows creatinine is 4. White count is 8. X-ray, no acute osteomyelitis. IMPRESSION: 1. Hypoglycemia, likely cause of seizures. The patient has foot wound, does not appear to be osteomyelitis. 2. End-stage renal disease. 3. Allergies as listed. SUGGESTION: Continue Augmentin. Duration to be likely 10 days. Follow up wound care. MD MONIKA Grimm/[place] / [phone]
== END 2020-01-15 17:27 | disposition left against medical advice (07) ==
PROVIDERS: Admitting Provider Internal Medicine; Emergency Provider Emergency Medicine; Visit Provider Internal Medicine
DX: E11.649 Type 2 diabetes mellitus with hypoglycemia without coma (principal); E11.22 Type 2 diabetes mellitus with diabetic chronic kidney disease; N18.6 End stage renal disease; R41.82 Altered mental status, unspecified; I45.81 Long QT syndrome; T68.XXXA Hypothermia, initial encounter; Z88.8 Allergy status to other drugs, medicaments and biological substances; Z99.2 Dependence on renal dialysis; Z79.4 Long term (current) use of insulin; Z79.899 Other long term (current) drug therapy
CPT/HCPCS: 36415; 70450; 71045; 74176; 80048; 80051; 80076; 80307; 80320; 81001; 82140; 82550; 82565; 82947; 83605; 83690; 83735; 84443; 84484; 84520; 85025; 85610; 85652; 85730; 86140; 87040; 93005; 93010; 99219; G0480; J0692; J1200; J1953

== ENCOUNTER → 2020-05-04 13:55 | Outpatient (BNVA) | payer MEDICAID, SELFPAY | PROVIDERS: PCP Nurse Practitioner Family; Referring Provider Nurse Practitioner Family; Visit Provider Internal Medicine Endocrinology, Diabetes & Metabolism | DX: E10.42 Type 1 diabetes mellitus with diabetic polyneuropathy (principal); E10.649 Type 1 diabetes mellitus with hypoglycemia without coma; E10.22 Type 1 diabetes mellitus with diabetic chronic kidney disease; I12.9 Hypertensive chronic kidney disease with stage 1 through stage 4 chronic kidney disease, or unspecified chronic kidney disease; N18.6 End stage renal disease; Z99.2 Dependence on renal dialysis; E78.5 Hyperlipidemia, unspecified | CPT/HCPCS: 82947; 99212 ==

== ENCOUNTER → 2020-06-17 13:51 | Outpatient (BNVA) | payer MEDICAID, SELFPAY | PROVIDERS: PCP Internal Medicine; Visit Provider Dietitian, Registered ==

== ENCOUNTER 2020-09-27 12:32 | Outpatient (REF) | payer MEDICAID, SELFPAY ==
[2020-09-27 12:35] VITALS: BMI 25.7
[2020-09-27 12:36] VITALS: BP 172/97; PULSE 100; RESP 16; TEMP 36.6; O2SAT 98
== END 2020-09-27 12:33 | disposition home or self-care (01) ==
LOC: HO.MS 12:32
PROVIDERS: PCP Internal Medicine; Visit Provider Ophthalmology
PROC: (CPT 66821; principal; 2020-09-27 15:10)
DX: H26.492 Other secondary cataract, left eye (principal); E10.42 Type 1 diabetes mellitus with diabetic polyneuropathy; E10.22 Type 1 diabetes mellitus with diabetic chronic kidney disease; I12.0 Hypertensive chronic kidney disease with stage 5 chronic kidney disease or end stage renal disease; N18.6 End stage renal disease; Z79.4 Long term (current) use of insulin; Z79.899 Other long term (current) drug therapy; Z99.2 Dependence on renal dialysis
CPT/HCPCS: 66821

== ENCOUNTER 2021-02-10 14:46 | Outpatient (REF) | payer MEDICARE, MEDICAID, SELFPAY ==
--- NOTE | ~2021-02-10 | MM_ITS ---
EXAMINATION: MM DIAGNOSTIC DIGITAL BREAST TOMOSYNTHESIS, BILATERAL US DIAGNOSTIC ULTRASOUND BREAST, RIGHT CLINICAL INFORMATION: 30-year-old with palpable concern outer right breast, also noted at clinical exam. Burning pain outer right breast. No prior breast imaging. History insulin-dependent diabetes, hypertension, and renal vascular disease. Family history breast cancer maternal grandmother. The lifetime risk of breast cancer based on the Tyrer-Cuzick Model is 19.1%. COMPARISON: None (current study represents initial baseline exam). TECHNIQUE: Targeted ultrasound right breast is initially performed of the outer quadrants using grayscale imaging and color Doppler without and with harmonics. At real-time evaluation, comparison scanning outer left breast also performed by radiologist. Digital breast tomosynthesis is performed following the ultrasound. Bilateral craniocaudal and mediolateral oblique views are obtained along with computer-aided detection (CAD). Synthesized 2D images are generated from the tomosynthesis. FINDINGS: The breasts are extremely dense, which lowers the sensitivity of mammography (ACR BI-RADS breast composition Category d). There are numerous bilateral vascular calcifications consistent with the clinical history. There is no mass or architectural abnormality or suspicious calcifications. The skin contours are smooth. There is no coarsening of the Chris's ligaments or skin thickening. There are punctate densities overlying the skin at both axilla likely deodorant artifact. The axilla are otherwise unremarkable. Ultrasound demonstrates no cystic or solid mass or architectural abnormality. No focal duct ectasia. No skin thickening or edema tracking in soft tissue planes. Results are discussed with the patient at time of visit. MM/MM tomosynthesis diagnostic BI IMPRESSION: 1. No mammographic evidence of malignancy or inflammatory changes. 2. Unremarkable targeted right breast ultrasound. ASSESSMENT: BI-RADS 2: Benign RECOMMENDATION: 1. Patient should be managed based on the clinical impression. If clinically indicated, further evaluation may be considered with surgical consult. Decision to proceed with biopsy should be based on clinical grounds and degree of clinical concern. 2. Otherwise, annual bilateral mammography, beginning age 40 or earlier as clinical risk factors warrant. This patient's information was entered into a reminder system with a target due date for their next mammogram.
== END 2021-02-10 14:47 | disposition home or self-care (01) ==
LOC: HO.MAMMO 14:46
PROVIDERS: PCP Internal Medicine; Visit Provider Advanced Practice Midwife
DX: N63.13 Unspecified lump in the right breast, lower outer quadrant (principal)
CPT/HCPCS: 76642; 77062; 77066

== ENCOUNTER 2021-04-17 19:17 | Inpatient (IN) | payer MEDICARE, MEDICAID, SELFPAY ==
--- NOTE | ~2021-04-17 | XR_ITS ---
EXAMINATION: XR CHEST CLINICAL INFORMATION: Pneumonia. COMPARISON: Chest radiograph dated from 01/13/2020. TECHNIQUE: AP view of the chest was obtained. FINDINGS: Multifocal airspace opacities. Suspect small right pleural effusion. No pneumothorax. Stable appearance of the cardiomediastinal silhouette. No acute osseous findings. Left axillary/brachial vascular stents. XR/XR chest 1V IMPRESSION: Multifocal airspace opacities concerning for a diffuse infectious or inflammatory process. Small right pleural effusion.
--- NOTE | ~2021-04-17 | XR_ITS ---
EXAMINATION: XR CHEST CLINICAL INFORMATION: Follow-up opacities after dialysis COMPARISON: Previous chest x-ray 04/17/2021 TECHNIQUE: Frontal view of the chest was obtained. FINDINGS: The cardiac and mediastinal contours are stable. There is slight interval improvement in pulmonary venous redistribution and perihilar airspace disease compared to 04/17/2021 exam. This probably represents improving pulmonary edema. There are some small bilateral pleural effusions that appears new. Bony structures are unremarkable. Stents in the left upper arm are noted. XR/XR chest 1V IMPRESSION: Interval decrease in pulmonary venous redistribution and perihilar airspace disease probably representing improving pulmonary edema as opposed to pneumonia from 04/17/2021 exam. Small bilateral pleural effusions.
[2021-04-17 19:26] VITALS: BP 210/105; PULSE 81; RESP 20; O2SAT 97; BMI 25.3
[2021-04-17 19:29] LABS: Glucose, Whole Blood 124 mg/dL (60-115)
--- NOTE | 2021-04-17 19:39 | ED.AMS ---
HPI - Altered Mental Status General Chief Complaint: Recheck/Abnormal Lab/Rx Stated Complaint: unresponsive Time Seen by Provider: 04/17/21 19:30 Source: EMS Mode of arrival: EMS Limitations: altered mental status History of Present Illness HPI narrative: Patient diabetic with end-stage renal disease on hemodialysis supposed to get dialysis tomorrow was in driveway of [facility] when she passed out EMS came noticed her blood sugar less than 40 was given dextrose patient responded to it back to normal no seizure no injuries prior to this patient was not behaving normal patient according to patient did not take her insulin today. Patient already received COVID-19 vaccine no fever no cough no urinary complaints no nausea no vomiting Related Data Home Medications Medication Instructions Recorded Confirmed amino acids-protein hydrolysate 15 30 ea PO BID 01/14/20 04/18/21 gram-100 kcal/30 mL oral liquid (LiquaCel 100) amlodipine 10 mg tablet 10 mg PO DAILY 01/14/20 04/18/21 cetirizine 10 mg tablet 10 mg PO DAILY 01/14/20 04/18/21 cinacalcet 30 mg tablet 30 mg PO MOWEFR@1000 01/14/20 05/04/20 docusate sodium 100 mg capsule 100 mg PO DAILY 01/14/20 05/04/20 ergocalciferol (vitamin D2) 1,250 1,250 mcg PO MO@1000 01/14/20 04/18/21 mcg (50,000 unit) capsule hydroxyzine HCl 10 mg tablet 10 mg PO TID 01/14/20 04/18/21 levetiracetam 750 mg tablet 750 mg PO BID 01/14/20 04/18/21 multivitamin (Daily-Alyx) 1 tab PO DAILY 01/14/20 04/18/21 sucroferric oxyhydroxide 500 mg 500 mg PO TIDWMEAL 01/14/20 04/18/21 chewable tablet (Velphoro) carvedilol 25 mg tablet 12.5 mg PO BID tab 05/04/20 04/18/21 cinacalcet 30 mg tablet (Sensipar) 30 mg PO DAILY 05/04/20 04/18/21 insulin glargine 100 unit/mL 10 unit SUBCUT QAM ml 05/04/20 04/18/21 subcutaneous solution (Lantus U-100 Insulin) insulin lispro 100 unit/mL See Rx Instructions SUBCUT 05/04/20 04/18/21 subcutaneous solution (Humalog USEASDIRECTD ml U-100 Insulin) losartan 25 mg tablet 25 mg PO DAILY 05/04/20 04/18/21 sevelamer carbonate 800 mg tablet 800 mg PO TID 05/04/20 04/18/21 (Renvela) vitamin B complex-vitamin C 100 1 tab PO DAILY 05/04/20 04/18/21 mg-folic acid 1 mg tablet (Dialyvite) Previous Rx's Medication Instructions Recorded blood sugar diagnostic (FreeStyle #50 ea 05/04/20 Precision Ian Strips) flash glucose scanning reader #1 ea 05/04/20 (FreeStyle Lola 2 [place]) flash glucose sensor (FreeStyle #2 ea 05/04/20 Lola 2 Sensor) Allergies Allergy/AdvReac Type Severity Reaction Status Date / Time icodextrin Allergy Mild Rash Verified 05/04/20 14:21 CLOROXINE Allergy Unknown RASH Uncoded 01/13/20 11:01 Review of Systems Review of Systems: Yes all other systems are reviewed and are negative PMF Past Medical History Medical History Diabetes type 1, uncontrolled Diabetic polyneuropathy associated with type 1 diabetes mellitus Dyslipidemia ESRD (end stage renal disease) Hypertension Hypoglycemia due to type 1 diabetes mellitus 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 Surgical History History of hemodialysis Hx of amputation Hx of section Hx of eye surgery Family History Family History Father Diabetes mellitus Mother Thyroid disease Pre-diabetes HTN (hypertension) Acute depression Arthritis Social History Social History Alcohol intake: never Patient Tobacco Use Status: Never used Tobacco Use of substances other than those prescribed or required for medical reasons: No Advance Directives: No Advance Directives Information Provided: No Physical Exam Vital Signs: Vital Signs: Last Vital Signs Temp 98.5 F 04/17/21 21:28 Pulse 79 04/17/21 22:58 Resp 22 H 04/17/21 22:58 BP 188/100 H 04/17/21 22:58 Pulse Ox 97 04/17/21 22:58 BMI result Body Mass Index 25.3 Appearance: Alert. Oriented X3. No acute distress. Slow to respond Eyes: PERRLA, No Nystagmus ENT: Pharynx normal. Oral Mucosa moist Neck: Normal inspection. Neck supple. No carotid Doppler CVS: Normal heart rate and rhythm. Pulses normal. Respiratory: No respiratory distress. Equal air entry bilateral, no wheezing/rhonchi, bilateral rales++ Abdomen: Soft and nontender. Bowel sounds are present, no mass palpable, no CVA tenderness Skin: Skin warm and dry. Normal skin color. Normal skin turgor. Extremities: No lower extremity edema. No calf tenderness: Av shunt in the left arm Neuro: Oriented X 3. No motor deficit. No sensory deficit.No cerebellar signs , cranial nerves II-XII intact Course Reevaluation(s) Reevaluation #1: Patient diabetic renal failure lately been having low blood sugar noticed to have elevated WBC count says that she has not taken her insulin today and blood sugar persistently low will admit patient for pneumonia with hyperglycemia, although chest x-ray looks like infiltrate but clinically patient is fluid overloaded patient does make urine very little will give IV Lasix plan for dialysis tomorrow Time: 00:05 MDM - Altered Mental Status MDM Narrative Medical decision making narrative: Patient has significant hyoglycemia responded dextrose at this time blood sugar is 124 patient states that she has not taken her insulin today will watch check the other labs patient is more alert and awake at this time Lab Data Attestation: I reviewed the patient's lab results. Result diagrams: 04/17/21 21:46 04/17/21 21:46 Labs: Lab Results 04/17/21 04/17/21 04/17/21 Range/Units 19:25 20:39 21:26 WBC (4.8-10.8) X10*3/uL RBC (4.20-5.50) X10*6/uL Hgb (12.0-16.0) g/dl Hct (37.0-47.0) % MCV (80.0-98.0) fL MCH (27.0-33.0) pg MCHC (31.0-35.0) g/dl RDW (11.0-16.0) % Plt Count (160-400) X10*3/uL MPV (9.4-12.3) fL Immature Gran % (Auto) (0.0-0.4) % Neut % (Auto) (45-73) % Lymph % (Auto) (20-40) % [place] % (Auto) (2-11) % Eos % (Auto) (0-4) % Baso % (Auto) (0-2) % Lymph # (Auto) (1.2-4.9) X10*3/uL [place] # (Auto) (0.1-1.2) X10*3/uL Eos # (Auto) (0.0-0.4) X10*3/uL Baso # (Auto) (0.0-0.2) X10*3/uL Abs Immat Gran (auto) (0.00-0.03) X10*3/uL Absolute Neuts (auto) (2.0-8.3) x10*3/uL Absolute Nucleated RBC (0.0-0.012) X10*3/uL Nucleated RBC % (auto) (0.0-0.2) /100WBC Sodium (135-145) mmol/L Potassium (3.3-5.1) mmol/L Chloride (96-108) mmol/L Carbon Dioxide (22-29) mmol/L Anion Gap (12-20) BUN (9-16) mg/dL Creatinine (0.5-1.4) mg/dL Estim Creat Clear Calc Estimated GFR POC Glucose 124 H 54 L* 95 (60-115) mg/dL Random Glucose (60-115) mg/dL Lactic Acid (0.5-2.0) mmol/L Calcium (8.4-10.2) mg/dL Total Bilirubin (0.0-1.0) mg/dL AST (5-31) U/L ALT (0-31) U/L Alkaline Phosphatase (39-117) U/L Total Protein (6.5-8.0) g/dL Albumin (3.5-5.0) g/dL COVID-19 (CHRISTINE) (Negative) COVID-19 Clin Com 04/17/21 04/17/21 04/17/21 Range/Units 21:34 21:46 21:46 WBC 13.3 H (4.8-10.8) X10*3/uL RBC 4.02 L (4.20-5.50) X10*6/uL Hgb 12.8 (12.0-16.0) g/dl Hct 37.6 (37.0-47.0) % MCV 93.5 (80.0-98.0) fL MCH 31.8 (27.0-33.0) pg MCHC 34.0 (31.0-35.0) g/dl RDW 14.3 (11.0-16.0) % Plt Count 237 (160-400) X10*3/uL MPV 11.6 (9.4-12.3) fL Immature Gran % (Auto) 0.5 H (0.0-0.4) % Neut % (Auto) 75.8 H (45-73) % Lymph % (Auto) 17.8 L (20-40) % [place] % (Auto) 4.2 (2-11) % Eos % (Auto) 1.2 (0-4) % Baso % (Auto) 0.5 (0-2) % Lymph # (Auto) 2.4 (1.2-4.9) X10*3/uL [place] # (Auto) 0.6 (0.1-1.2) X10*3/uL Eos # (Auto) 0.2 (0.0-0.4) X10*3/uL Baso # (Auto) 0.1 (0.0-0.2) X10*3/uL Abs Immat Gran (auto) 0.07 H (0.00-0.03) X10*3/uL Absolute Neuts (auto) 10.1 H (2.0-8.3) x10*3/uL Absolute Nucleated RBC 0.030 H (0.0-0.012) X10*3/uL Nucleated RBC % (auto) 0.2 (0.0-0.2) /100WBC Sodium 132 L (135-145) mmol/L Potassium 4.3 (3.3-5.1) mmol/L Chloride 92 L (96-108) mmol/L Carbon Dioxide 26 (22-29) mmol/L Anion Gap 18 (12-20) BUN 60 H (9-16) mg/dL Creatinine 9.75 H* (0.5-1.4) mg/dL Estim Creat Clear Calc 7.1 Estimated GFR 5 POC Glucose (60-115) mg/dL Random Glucose 84 (60-115) mg/dL Lactic Acid (0.5-2.0) mmol/L Calcium 9.8 D (8.4-10.2) mg/dL Total Bilirubin 0.7 (0.0-1.0) mg/dL AST 21 (5-31) U/L ALT 26 (0-31) U/L Alkaline Phosphatase 206 H (39-117) U/L Total Protein 8.0 (6.5-8.0) g/dL Albumin 4.1 (3.5-5.0) g/dL COVID-19 (CHRISTINE) Negative (Negative) COVID-19 Clin Com See Note 04/17/21 Range/Units 21:46 WBC (4.8-10.8) X10*3/uL RBC (4.20-5.50) X10*6/uL Hgb (12.0-16.0) g/dl Hct (37.0-47.0) % MCV (80.0-98.0) fL MCH (27.0-33.0) pg MCHC (31.0-35.0) g/dl RDW (11.0-16.0) % Plt Count (160-400) X10*3/uL MPV (9.4-12.3) fL Immature Gran % (Auto) (0.0-0.4) % Neut % (Auto) (45-73) % Lymph % (Auto) (20-40) % [place] % (Auto) (2-11) % Eos % (Auto) (0-4) % Baso % (Auto) (0-2) % Lymph # (Auto) (1.2-4.9) X10*3/uL [place] # (Auto) (0.1-1.2) X10*3/uL Eos # (Auto) (0.0-0.4) X10*3/uL Baso # (Auto) (0.0-0.2) X10*3/uL Abs Immat Gran (auto) (0.00-0.03) X10*3/uL Absolute Neuts (auto) (2.0-8.3) x10*3/uL Absolute Nucleated RBC (0.0-0.012) X10*3/uL Nucleated RBC % (auto) (0.0-0.2) /100WBC Sodium (135-145) mmol/L Potassium (3.3-5.1) mmol/L Chloride (96-108) mmol/L Carbon Dioxide (22-29) mmol/L Anion Gap (12-20) BUN (9-16) mg/dL Creatinine (0.5-1.4) mg/dL Estim Creat Clear Calc Estimated GFR POC Glucose (60-115) mg/dL Random Glucose (60-115) mg/dL Lactic Acid 1.2 (0.5-2.0) mmol/L Calcium (8.4-10.2) mg/dL Total Bilirubin (0.0-1.0) mg/dL AST (5-31) U/L ALT (0-31) U/L Alkaline Phosphatase (39-117) U/L Total Protein (6.5-8.0) g/dL Albumin (3.5-5.0) g/dL COVID-19 (CHRISTINE) (Negative) COVID-19 Clin Com Discharge Plan Discharge Clinical Impression: ESRD (end stage renal disease) on dialysis, Hypoglycemia Bilateral pneumonia Qualifiers: Pneumonia type: due to unspecified organism Lung location: unspecified part of lung Qualified Code(s): J18.9 - Pneumonia, unspecified organism Clinical Impression: (Ruled Out): Diabetes type 1, uncontrolled Patient Disposition: Admitted As Inpatient
[2021-04-17 20:45] LABS: Glucose, Whole Blood 54 mg/dL (60-115)
[2021-04-17 21:28] VITALS: BP 208/107; PULSE 81; RESP 18; TEMP 36.9; O2SAT 91
[2021-04-17 21:47] VITALS: BP 208/109; PULSE 78; RESP 22; O2SAT 97
[2021-04-17 21:55] LABS: Glucose, Whole Blood 95 mg/dL (60-115)
[2021-04-17 21:55] LABS: MANUAL DIFF FLAG NO
[2021-04-17 21:57] LABS: Basophils Absolute Auto 0.1 X10*3/uL (0.0-0.2); Basophils Percent Auto 0.5 % (0-2); Eosinophils Absolute Auto 0.2 X10*3/uL (0.0-0.4); Eosinophils Percent Auto 1.2 % (0-4); Hematocrit 37.6 % (37.0-47.0); Hemoglobin 12.8 g/dl (12.0-16.0); Imm Gran Abs Auto 0.07 X10*3/uL (0.00-0.03); Imm Gran Pct Auto 0.5 % (0.0-0.4); Lymphocytes Absolute Auto 2.4 X10*3/uL (1.2-4.9); Lymphocytes Percent Auto 17.8 % (20-40); Mean Corpuscular Hemoglobin 31.8 pg (27.0-33.0); Mean Corpuscular Volume 93.5 fL (80.0-98.0); Mean Platelet Volume 11.6 fL (9.4-12.3); Monocytes Absolute Auto 0.6 X10*3/uL (0.1-1.2); Monocytes Percent Auto 4.2 % (2-11); NRBC Pct Auto 0.2 /100WBC (0.0-0.2); Neutrophils Absolute Auto 10.1 x10*3/uL (2.0-8.3); Neutrophils Percent Auto 75.8 % (45-73); Platelet Count 237 X10*3/uL (160-400); Red Blood Count 4.02 X10*6/uL (4.20-5.50); Red Cell Distribution Width 14.3 % (11.0-16.0); White Blood Count 13.3 X10*3/uL (4.8-10.8)
[2021-04-17 22:06] LABS: Lactic Acid 1.2 mmol/L (0.5-2.0)
[2021-04-17 22:08] LABS: COVID-19 Test Negative (Negative)
[2021-04-17 22:19] LABS: Alanine Aminotransferase 26 U/L (0-31); Albumin Level 4.1 g/dL (3.5-5.0); Alkaline Phosphatase 206 U/L (39-117); Anion Gap 18 (12-20); Aspartate Amino Transferase 21 U/L (5-31); Bilirubin Total 0.7 mg/dL (0.0-1.0); Blood Urea Nitrogen 60 mg/dL (9-16); Calcium 9.8 mg/dL (8.4-10.2); Carbon Dioxide 26 mmol/L (22-29); Chloride 92 mmol/L (96-108); Creatinine Clr Calc Pharmacy 7.1; Estimated Glomerular Filt Rate 5; Glucose Random 84 mg/dL (60-115); Potassium 4.3 mmol/L (3.3-5.1); Sodium 132 mmol/L (135-145)
[2021-04-17 22:52] VITALS: BP 206/103; PULSE 81
[2021-04-17] MEDS: hydrALAZINE HCl 20 MG/ML VIAL IVPUSH (22:52)
[2021-04-17] MEDS: cefTRIAXone sodium 1 GM in 0.9 % Sodium Chloride 50 ML IV (22:57)
[2021-04-17 22:58] VITALS: BP 188/100; PULSE 79; RESP 22; O2SAT 97
[2021-04-17] MEDS: Doxycycline Hyclate 100 MG in 0.9 % Sodium Chloride 250 ML 166.67 MG IV (23:53)
[2021-04-18] VITALS (9 sets, daily range): BP systolic 139–199; BP diastolic 76–102; PULSE 81–92; RESP 16–19; TEMP 36.6–36.8; O2SAT 95–99
--- NOTE | 2021-04-18 01:07 | P.HPHOSP_ITS ---
History of Present Illness Date of Service: 04/18/21 Chief Complaint: syncope 30F with pmh of DM type 1 (brittle), ESRD on HD, HTN, seizures, presented with syncope. patient is a vague historian. she reports several days of not feeling well . reports shortness of breath, fatigue, abdominal pain, loss of appetite. she was at a [facility] on day of presentation and prior to getting her food she syncopized. EMS noted glucose in the 40s, required dextrose infusion. patient was not reported to have had seizure. she did not take her insulin yet that day. in ED, was still hypoglycemic, given more dextrose, was lethargic. was noted to by hypoxic to 85% on room air and placed on oxygen, hypertensive with systolic BP 210, CXR with bilateral opacities, covid negative. Review of Systems Review of Systems: Constitutional: Denies fever, denies Chills Eyes: denies blurry vision ENT: denies sore throat CVS: denies chest pain Respiratory: dyspnea GI: abdominal pain : denies dysuria MSK: denies neck pain Skin: denies rash Neuro: denies specific motor weakness Psych: denies suicidal ideation Endocrine: denies heat/cold intolerance Hematologic: denies easy bleeding Allergy: denies hives [facility] Medical History Diabetes type 1, uncontrolled Diabetic polyneuropathy associated with type 1 diabetes mellitus Dyslipidemia ESRD (end stage renal disease) Hypertension Hypoglycemia due to type 1 diabetes mellitus 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 Family History Father Diabetes mellitus Mother Thyroid disease Pre-diabetes HTN (hypertension) Acute depression Arthritis Surgical History History of hemodialysis Hx of amputation Hx of section Hx of eye surgery Social History Alcohol intake: never Patient Tobacco Use Status: Never used Tobacco Use of substances other than those prescribed or required for medical reasons: No Advance Directives: No Advance Directives Information Provided: No Meds Allergies Allergy/AdvReac Type Severity Reaction Status Date / Time icodextrin Allergy Mild Rash Verified 05/04/20 14:21 CLOROXINE Allergy Unknown RASH Uncoded 01/13/20 11:01 Active Medications: Current Medications Amlodipine Besylate (Amlodipine Besylate 10 Mg Tablet) 10 mg PO DAILY [facility]; Protocol Carvedilol (Carvedilol 12.5 Mg Tablet) 12.5 mg PO BID [facility]; Protocol Cinacalcet (Cinacalcet Hcl 30 Mg Tablet) 30 mg PO DAILY [facility] Dextrose (Dextrose 50 % 25 Gm/50 Ml Vial) 25 gm IVPUSH Q15M PRN; Protocol PRN Reason: per Hypoglycemia Standing Ord. Ergocalciferol (Ergocalciferol (Vitamin D2) 1,250 Mcg Capsule) 1,250 mcg PO MO@1000 [facility] Glucose (Glucose Gel 15 Gm Gel..Gram.) 15 gm PO Q15M PRN; Protocol PRN Reason: per Hypoglycemia Standing Ord. Hydroxyzine HCl (Hydroxyzine Hcl 10 Mg Tablet) 10 mg PO TID [facility] Ceftriaxone Sodium 1 gm/ (Sodium Chloride) 50 mls @ 100 mls/hr IV Q24H [facility] Doxycycline Hyclate 100 mg/ (Sodium Chloride) 250 mls @ 166.67 mls/hr IV Q12H [facility] Insulin Human Lispro (Insulin Lispro 100 Unit/Ml 3 Ml Vial) 0 - 10 unit SUBCUT QIDACHS [facility]; Protocol Levetiracetam (Levetiracetam 250 Mg Tablet) 750 mg PO BID [facility] Loratadine (Loratadine 10 Mg Tablet) 10 mg PO DAILY [facility] Losartan Potassium (Losartan Potassium 25 Mg Tablet) 25 mg PO DAILY [facility]; Protocol Multivitamins/Vitamin C (Multivitamin Tablet) 1 tab PO DAILY [facility] Non-Formulary Medication (Amino Acids-Protein Hydrolys [Liquacel 100]) 30 each PO BID [facility] Non-Formulary Medication (Sucroferric Oxyhydroxide [Velphoro]) 500 mg PO TIDWM [facility] Sevelamer Carbonate (Sevelamer Carbonate Tablet 800 Mg Tablet) 800 mg PO TID [facility] Home Medications Medication Instructions Recorded Confirmed Last Taken Type amino acids-protein hydrolysate 15 30 ea PO BID 01/14/20 04/18/21 Unknown History gram-100 kcal/30 mL oral liquid (LiquaCel 100) amlodipine 10 mg tablet 10 mg PO DAILY 01/14/20 04/18/21 Unknown History cetirizine 10 mg tablet 10 mg PO DAILY 01/14/20 04/18/21 Unknown History cinacalcet 30 mg tablet 30 mg PO MOWEFR@1000 01/14/20 05/04/20 Unknown History docusate sodium 100 mg capsule 100 mg PO DAILY 01/14/20 05/04/20 Unknown History ergocalciferol (vitamin D2) 1,250 1,250 mcg PO MO@1000 01/14/20 04/18/21 Unknown History mcg (50,000 unit) capsule hydroxyzine HCl 10 mg tablet 10 mg PO TID 01/14/20 04/18/21 Unknown History levetiracetam 750 mg tablet 750 mg PO BID 01/14/20 04/18/21 Unknown History multivitamin (Daily-Alyx) 1 tab PO DAILY 01/14/20 04/18/21 Unknown History sucroferric oxyhydroxide 500 mg 500 mg PO TIDWMEAL 01/14/20 04/18/21 Unknown History chewable tablet (Velphoro) carvedilol 25 mg tablet 12.5 mg PO BID tab 05/04/20 04/18/21 Unknown History cinacalcet 30 mg tablet (Sensipar) 30 mg PO DAILY 05/04/20 04/18/21 Unknown History insulin glargine 100 unit/mL 10 unit SUBCUT QAM ml 05/04/20 04/18/21 Unknown History subcutaneous solution (Lantus U-100 Insulin) insulin lispro 100 unit/mL See Rx Instructions SUBCUT 05/04/20 04/18/21 Unknown History subcutaneous solution (Humalog USEASDIRECTD ml U-100 Insulin) losartan 25 mg tablet 25 mg PO DAILY 05/04/20 04/18/21 Unknown History sevelamer carbonate 800 mg tablet 800 mg PO TID 05/04/20 04/18/21 Unknown History (Renvela) vitamin B complex-vitamin C 100 1 tab PO DAILY 05/04/20 04/18/21 Unknown History mg-folic acid 1 mg tablet (Dialyvite) Physical Exam Vital Signs and Narrative: Vital Signs: Last Vital Signs Temp 98.5 F 04/17/21 21:28 Pulse 79 04/17/21 22:58 Resp 22 H 04/17/21 22:58 BP 188/100 H 04/17/21 22:58 Pulse Ox 97 04/17/21 22:58 BMI result Body Mass Index 25.3 General: ill appearing HEENT: atraumatic Neck: normal to visual inspection CVS: S1, S2, RRR Resp: CTA bilateral Chest: non tender GI: soft, non tender, non distended : no CVA tenderness Skin: no rashes Extremities: no edema Neuro: lethargic Oriented X3, grossly intact Psych: flat affect Results Labs CBC and Chem 7: 04/17/21 21:46 04/17/21 21:46 Labs: Laboratory Results - last 24 hr 04/17/21 04/17/21 04/17/21 19:25 20:39 21:26 MCV MCH MCHC RDW Plt Count MPV Immature Gran % (Auto) Neut % (Auto) Lymph % (Auto) [place] % (Auto) Eos % (Auto) Baso % (Auto) Lymph # (Auto) [place] # (Auto) Eos # (Auto) Baso # (Auto) Abs Immat Gran (auto) Absolute Neuts (auto) Absolute Nucleated RBC Nucleated RBC % (auto) Anion Gap Estim Creat Clear Calc Estimated GFR POC Glucose 124 H 54 L* 95 Random Glucose Lactic Acid Calcium Total Bilirubin AST ALT Alkaline Phosphatase Total Protein Albumin COVID-19 (CHRISTINE) COVID-Pivotshare 04/17/21 04/17/21 04/17/21 21:34 21:46 21:46 MCV 93.5 MCH 31.8 MCHC 34.0 RDW 14.3 Plt Count 237 MPV 11.6 Immature Gran % (Auto) 0.5 H Neut % (Auto) 75.8 H Lymph % (Auto) 17.8 L [place] % (Auto) 4.2 Eos % (Auto) 1.2 Baso % (Auto) 0.5 Lymph # (Auto) 2.4 [place] # (Auto) 0.6 Eos # (Auto) 0.2 Baso # (Auto) 0.1 Abs Immat Gran (auto) 0.07 H Absolute Neuts (auto) 10.1 H Absolute Nucleated RBC 0.030 H Nucleated RBC % (auto) 0.2 Anion Gap 18 Estim Creat Clear Calc 7.1 Estimated GFR 5 POC Glucose Random Glucose 84 Lactic Acid Calcium 9.8 D Total Bilirubin 0.7 AST 21 ALT 26 Alkaline Phosphatase 206 H Total Protein 8.0 Albumin 4.1 COVID-19 (CHRISTINE) Negative COVID-19 Clin Com See Note 04/17/21 21:46 MCV MCH MCHC RDW Plt Count MPV Immature Gran % (Auto) Neut % (Auto) Lymph % (Auto) [place] % (Auto) Eos % (Auto) Baso % (Auto) Lymph # (Auto) [place] # (Auto) Eos # (Auto) Baso # (Auto) Abs Immat Gran (auto) Absolute Neuts (auto) Absolute Nucleated RBC Nucleated RBC % (auto) Anion Gap Estim Creat Clear Calc Estimated GFR POC Glucose Random Glucose Lactic Acid 1.2 Calcium Total Bilirubin AST ALT Alkaline Phosphatase Total Protein Albumin COVID-19 (CHRISTINE) COVID-19 Clin Com Imaging Radiologist's Impressions: Impressions Chest X-Ray 04/17/21 21:24 IMPRESSION: Multifocal airspace opacities concerning for a diffuse infectious or inflammatory process. Small right pleural effusion. Assessment and Plan (1) Hypoglycemia: Status: Acute 30F presented with syncope found to have hypoglycemia, hypertensive urgeny, hypoxia syncope due to DM 1 with hypoglycemia monitor FS closely, patient is known to have brittle diabetes with history of both DKA and hypoglcyemia sliding scale insulin hypertensive urgency improved with iv hydralazine in ED cotninue coreg, losartan, amlodipine acute hypoxic respiratory failure possible bilateral pneumonia likely viral, less likel bacterial vs acute pulmonary edema from fluid overload in ESRD will cover empirically with rocephin, doxy, check resp viral panel, cultures nephro eval for HD wean o2 as toelrated ESRD HD phosphate binders epilepsy keppra dvt prophylaxis - heparin full code Quality Stroke Does the patient have a stroke diagnosis?: No VTE Prior VTE?: No VTE Risk Level:: Medical - moderate - high VTE Device Contraindication: Treatment Not Indicated VTE Drug Contraindication: N/A - Med Ordered
[2021-04-18] MEDS: Furosemide 100 MG/10 ML VIAL IVPUSH (01:26)
[2021-04-18] MEDS: carvediloL 12.5 MG TABLET PO (01:26)
[2021-04-18 07:54] LABS: Glucose, Whole Blood 145 mg/dL (60-115)
--- NOTE | 2021-04-18 08:20 | PHA.MEDREC ---
Pharmacy Consult ? Medication Reconciliation Pharmacy has reviewed the medication reconciliation completed by Adina. Multiple medications were enter and order that patient was not on including amlodpine, cetirizine, cinacalcet, vitamin d2. Carvediol was enter as 12.5 mg BID but patient take 25 mg BID. Losartan was enter as 25 mg daily but patient take 100 mg daily. Sevelamer was enter at 800 mg TID but patient take 2400 mg TIDAC. Valtrex and vitamin d3 were not included on the home medication list. Dr Pereira was informed. All medications were updated. Jolanta Ponce, pharmD
--- NOTE | 2021-04-18 08:56 | PC.NURSE ---
Patient only had coffee and toast for breakfast.
[2021-04-18] MEDS: levETIRAcetam 250 MG TABLET 750 MG PO ×2 (09:57→20:33)
[2021-04-18] MEDS: Losartan Potassium 50 MG TABLET 100 MG PO (09:58)
[2021-04-18] MEDS: Multivitamin TABLET 1 TAB PO (09:59)
[2021-04-18] MEDS: Cholecalciferol (Vitamin D3) 25 MCG TABLET PO (09:59)
[2021-04-18] MEDS: hydrOXYzine HCL 10 MG TABLET PO ×2 (10:00→20:33)
[2021-04-18] MEDS: Sevelamer Carbonate Tablet 800 MG TABLET 2400 MG PO ×2 (10:00→18:29)
[2021-04-18] MEDS: carvediloL 25 MG TABLET PO ×2 (10:00→20:33)
[2021-04-18] MEDS: Heparin Sodium,Porcine 5,000 UNIT/ML VIAL 5000 UNIT SUBCUT ×2 (10:02→18:31)
[2021-04-18] MEDS: Insulin Glargine,Hum.rec.anlog 100 UNIT/ML 10 ML VIAL 10 UNIT SUBCUT (10:02)
[2021-04-18] MEDS: diphenhydrAMINE HCL 50 MG/ML VIAL 25 MG IVPUSH ×2 (10:10→20:33)
--- NOTE | 2021-04-18 10:25 | MHC.CM.PN ---
CM MET WITH PT IN ED20. PT REPORTS SHE LIVES ALONE AND IS FULLY INDEPENDENT PT DENIES USE OF DME OR HOME/COMMUNITY SERVICES PT DECLINES TO COMPLETE A HCP PT REPORTS HER PCP IS AT [facility], SHE DOES NOT KNOW THE NAME IMM DELIVERED, ORIGINAL GIVEN TO PT, COPY SENT TO [facility] CURRENT DC PLAN IS HOME WITH NO SERVICES PT WILL SELF ARRANGE TRANSPORT
--- NOTE | 2021-04-18 11:26 | P.CONNP_ITS ---
History of Present Illness Reason for Consult Consult date: 04/18/21 Chief Complaint Chief complaint: Syncope hypoglycemia, hypoxia History of Present Illness Narrative: 30F with h/o DM type 1 (brittle), ESRD on HD, HTN, seizures, presented with syncope. patient is a vague historian. she reports several days of not feeling well . reports shortness of breath, fatigue, abdominal pain, loss of appetite. she was at a [facility] on day of presentation and prior to getting her food she syncopized. EMS noted glucose in the 40s, required dextrose infusion. patient was not reported to have had seizure. she did not take her insulin yet that day. in ED, was still hypoglycemic, given more dextrose, was lethargic. was noted to by hypoxic to 85% on room air and placed on oxygen, hypertensive with systolic BP 210, CXR with bilateral opacities, covid negative. She is due to dialysis today Usually gets HD at [facility] Review of Systems Review of Systems Constitutional: Denies fever, denies Chills Eyes: denies blurry vision ENT: denies sore throat CVS: denies chest pain Respiratory: dyspnea GI: abdominal pain : denies dysuria MSK: denies neck pain Skin: denies rash Neuro: denies specific motor weakness Psych: denies suicidal ideation Endocrine: denies heat/cold intolerance Hematologic: denies easy bleeding Allergy: denies hives Yes all other systems are reviewed and are negative [facility] Past Medical History Medical History Diabetes type 1, uncontrolled Diabetic polyneuropathy associated with type 1 diabetes mellitus Dyslipidemia ESRD (end stage renal disease) Hypertension Hypoglycemia due to type 1 diabetes mellitus 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 Family History Family History Father Diabetes mellitus Mother Thyroid disease Pre-diabetes HTN (hypertension) Acute depression Arthritis Surgical History Surgical History History of hemodialysis Hx of amputation Hx of section Hx of eye surgery Social History Social History Household Members: Significant Other and Children Housing: Apartment Do you presently have visiting nurse or other home services: No Alcohol intake: never Patient Tobacco Use Status: Never used Tobacco service: No Current occupational status: unemployed Meds Allergies Allergy/AdvReac Type Severity Reaction Status Date / Time icodextrin Allergy Mild Rash Verified 05/04/20 14:21 CLOROXINE Allergy Unknown RASH Uncoded 01/13/20 11:01 Active Medications: Current Medications Carvedilol (Carvedilol 25 Mg Tablet) 25 mg PO BID [facility]; Protocol Last Admin: 04/18/21 10:00 Dose: 25 mg Documented by: Dextrose (Dextrose 50 % 25 Gm/50 Ml Vial) 25 gm IVPUSH Q15M PRN; Protocol PRN Reason: per Hypoglycemia Standing Ord. Diphenhydramine HCl (Diphenhydramine Hcl 50 Mg/Ml Vial) 25 mg IVPUSH Q6H PRN PRN Reason: Allergic Reaction Last Admin: 04/18/21 10:10 Dose: 25 mg Documented by: Glucose (Glucose Gel 15 Gm Gel..Gram.) 15 gm PO Q15M PRN; Protocol PRN Reason: per Hypoglycemia Standing Ord. Heparin Sodium (Porcine) (Heparin Sodium,Porcine 5,000 Unit/Ml Vial) 5,000 unit SUBCUT Q8H [facility] Last Admin: 04/18/21 10:02 Dose: 5,000 unit Documented by: Hydroxyzine HCl (Hydroxyzine Hcl 10 Mg Tablet) 10 mg PO TID [facility] Last Admin: 04/18/21 10:00 Dose: 10 mg Documented by: Ceftriaxone Sodium 1 gm/ (Sodium Chloride) 50 mls @ 100 mls/hr IV Q24H [facility] Doxycycline Hyclate 100 mg/ (Sodium Chloride) 250 mls @ 166.67 mls/hr IV 0000,1200 [facility] Insulin Glargine (Insulin Glargine,Hum.Rec.Anlog 100 Unit/Ml 10 Ml Vial) 10 unit SUBCUT DAILY [facility] Last Admin: 04/18/21 10:02 Dose: 10 unit Documented by: Insulin Human Lispro (Insulin Lispro 100 Unit/Ml 3 Ml Vial) 0 - 10 unit SUBCUT QIDACHS [facility]; Protocol Last Admin: 04/18/21 07:41 Dose: Not Given Documented by: Levetiracetam (Levetiracetam 250 Mg Tablet) 750 mg PO BID [facility] Last Admin: 04/18/21 09:57 Dose: 750 mg Documented by: Losartan Potassium (Losartan Potassium 50 Mg Tablet) 100 mg PO DAILY [facility]; Protocol Last Admin: 04/18/21 09:58 Dose: 100 mg Documented by: Multivitamins/Vitamin C (Multivitamin Tablet) 1 tab PO DAILY [facility] Last Admin: 04/18/21 09:59 Dose: 1 tab Documented by: Pharmacy Consult (Consult Rx Perform Med Rec) 1 each MISCELLANE ONCE PRN PRN Reason: Consult order Sevelamer Carbonate (Sevelamer Carbonate Tablet 800 Mg Tablet) 2,400 mg PO TIDWM [facility] Last Admin: 04/18/21 10:00 Dose: 2,400 mg Documented by: Valacyclovir HCl (Valacycyclovir Hcl 500 Mg Tablet) 500 mg PO DAILY [facility] Last Admin: 04/18/21 10:00 Dose: 500 mg Documented by: Vitamin D (Cholecalciferol (Vitamin D3) 25 Mcg Tablet) 25 mcg PO DAILY [facility] Last Admin: 04/18/21 09:59 Dose: 25 mcg Documented by: Home Medications Medication Instructions Recorded Confirmed Last Taken Type hydroxyzine HCl 10 mg tablet 10 mg PO TID 01/14/20 04/18/21 04/17/21 History levetiracetam 750 mg tablet 750 mg PO BID 01/14/20 04/18/21 04/17/21 History multivitamin (Daily-Alyx) 1 tab PO DAILY 01/14/20 04/18/21 04/17/21 History insulin glargine 100 unit/mL 10 unit SUBCUT QAM ml 05/04/20 04/18/21 04/17/21 History subcutaneous solution (Lantus U-100 Insulin) insulin lispro 100 unit/mL See Protocol SUBCUT QIDACHS ml 05/04/20 04/18/21 04/17/21 History subcutaneous solution (Humalog U-100 Insulin) sevelamer carbonate 800 mg tablet 2,400 mg PO TIDAC 05/04/20 04/18/21 04/17/21 History (Renvela) acetaminophen 500 mg tablet 500 mg PO Q6H PRN 04/18/21 04/18/21 Unknown History carvedilol 25 mg tablet 25 mg PO BID 04/18/21 04/18/21 04/17/21 History cholecalciferol (vitamin D3) 25 25 mcg PO DAILY 01/03/22 01/03/22 01/02/21 H istory mcg (1,000 unit) tablet (Vitamin D3) losartan 100 mg tablet 1 tab PO DAILY 04/18/21 04/18/21 04/17/21 History valacyclovir 500 mg tablet 1 tab PO DAILY 04/18/21 04/18/21 04/17/21 History Physical Exam Vital Signs: Last Vital Signs Temp 97.8 F 04/18/21 11:15 Pulse 89 04/18/21 11:15 Resp 18 04/18/21 11:15 BP 199/90 H 04/18/21 11:15 Pulse Ox 95 04/18/21 11:15 BMI result Body Mass Index 25.3 Results Lab Results Result Diagrams: 04/19/21 07:03 04/19/21 07:03 Lab results: Chemistry 04/17/21 21:46 Sodium 132 L Potassium 4.3 Carbon Dioxide 26 BUN 60 H Creatinine 9.75 H* Calcium 9.8 D Hematology 04/17/21 21:46 WBC 13.3 H Hgb 12.8 Plt Count 237 Assessment and Plan (1) Hypoglycemia: Status: Acute (2) ESRD (end stage renal disease) on dialysis: Status: Chronic 30F presented with syncope found to have hypoglycemia, hypertensive urgency, hypoxia ESRD No overt s/s of uremia Will arrange for HD today Remove fluid as tolerated Syncope due to DM 1 with hypoglycemia monitor FS closely, patient is known to have brittle diabetes with history of davis th DKA and hypoglcyemia sliding scale insulin Accelerated HTN continue coreg, losartan, amlodipine Would Avoid IV anti hypertensives Bilateral pneumonia likely viral, less likely bacterial vs acute pulmonary edema from fluid overload in ESRD Remove fluid with HD and reassess Procedures Date of Service Date of Service: 04/18/21
--- NOTE | 2021-04-18 11:32 | PC.NURSE ---
rn to rn given to joao (overflow unit).
--- NOTE | 2021-04-18 13:01 | PC.NURSE ---
pt in dialysis at time medications due
[2021-04-18 18:14] LABS: Glucose, Whole Blood 129 mg/dL (60-115)
[2021-04-18] MEDS: amLODIPine Besylate 10 MG TABLET PO (18:29)
[2021-04-18] MEDS: cefTRIAXone sodium 1 GM in 0.9 % Sodium Chloride 50 ML IV (18:31)
[2021-04-18 20:25] LABS: Glucose, Whole Blood 148 mg/dL (60-115)
[2021-04-18] MEDS: Doxycycline Hyclate 100 MG in 0.9 % Sodium Chloride 250 ML 166.67 MG IV (20:32)
[2021-04-19] MEDS: Acetaminophen 325 MG TABLET 650 MG PO (02:57)
[2021-04-19 03:39] VITALS: BP 156/84; PULSE 98; RESP 18; TEMP 37.1; O2SAT 98
[2021-04-19 03:55] LABS: Glucose, Whole Blood 46 mg/dL (60-115)
[2021-04-19 04:03] LABS: Glucose, Whole Blood 59 mg/dL (60-115)
[2021-04-19 04:24] LABS: Glucose, Whole Blood 105 mg/dL (60-115)
[2021-04-19 07:01] VITALS: BP 161/76; PULSE 85; RESP 21; TEMP 37; O2SAT 95
[2021-04-19 07:19] LABS: Hemoglobin 11.5 g/dl (12.0-16.0); Mean Corpuscular HGB Conc 33.8 g/dl (31.0-35.0); Mean Corpuscular Hemoglobin 30.7 pg (27.0-33.0); Mean Corpuscular Volume 90.9 fL (80.0-98.0); Mean Platelet Volume 11.9 fL (9.4-12.3); NRBC Pct Auto 0.3 /100WBC (0.0-0.2); Platelet Count 217 X10*3/uL (160-400); Red Blood Count 3.74 X10*6/uL (4.20-5.50); Red Cell Distribution Width 14.4 % (11.0-16.0); White Blood Count 9.7 X10*3/uL (4.8-10.8)
[2021-04-19 07:23] LABS: Glucose, Whole Blood 252 mg/dL (60-115)
[2021-04-19 07:36] LABS: Anion Gap 16 (12-20); Blood Urea Nitrogen 29 mg/dL (9-16); Calcium 9.2 mg/dL (8.4-10.2); Carbon Dioxide 21 mmol/L (22-29); Chloride 96 mmol/L (96-108); Creatinine Clr Calc Pharmacy 9.8; Estimated Glomerular Filt Rate 7; Glucose Fasting 278 mg/dL (60-99); Potassium 5.1 mmol/L (3.3-5.1); Sodium 128 mmol/L (135-145)
[2021-04-19] MEDS: Doxycycline Hyclate 100 MG in 0.9 % Sodium Chloride 250 ML 166.67 MG IV ×2 (08:20→20:21)
[2021-04-19] MEDS: Heparin Sodium,Porcine 5,000 UNIT/ML VIAL 5000 UNIT SUBCUT ×2 (08:21→17:45)
[2021-04-19] MEDS: Insulin Lispro 100 UNIT/ML 3 ML VIAL SUBCUT ×3 (08:21→20:20)
[2021-04-19] MEDS: levETIRAcetam 250 MG TABLET 750 MG PO ×2 (08:22→20:19)
[2021-04-19] MEDS: Sevelamer Carbonate Tablet 800 MG TABLET 2400 MG PO ×3 (08:22→15:56)
[2021-04-19] MEDS: Losartan Potassium 50 MG TABLET 100 MG PO (08:23)
[2021-04-19] MEDS: Cholecalciferol (Vitamin D3) 25 MCG TABLET PO (08:23)
[2021-04-19] MEDS: carvediloL 25 MG TABLET PO ×2 (08:23→20:20)
[2021-04-19] MEDS: amLODIPine Besylate 10 MG TABLET PO (08:23)
[2021-04-19] MEDS: Multivitamin TABLET 1 TAB PO (08:23)
[2021-04-19] MEDS: hydrOXYzine HCL 10 MG TABLET PO ×2 (08:23→15:56)
--- NOTE | 2021-04-19 09:37 | MHC.CDI.CONC ---
CDI Concurrent Query Documentation Clarification: PHYSICIAN'S DOCUMENTATION REQUEST Date of Query: 04/19/21 0937 Patient Name: Natali Mtz Admit Date: 04/18/21 Dear Doctor, A review of the medical record indicates additional documentation may be needed. Please review below and update the documentation accordingly. Risk Factors/Clinical Indicators/Treatments LAB FINDINGS: sodium 128 L Based on the above, could you clarify in the Progress Notes the appropriate diagnosis, if significant, that supports the above abnormalities and additional evaluation, monitoring, and/or treatment rendered: Hyponatremia or other etiology of lab findings Labs indicate a diagnosis of (please specify) Other Unable to determine Use of terms such as suspected, likely, concern for, or probable (associated with a specific diagnosis that is being evaluated, monitored, or treated as if it exists) are acceptable and can be coded in the inpatient setting, when documented at the time of discharge. Thank you, Usha Monsalve [facility], CDIS Extension: [phone] Please use your independent medical judgment in providing your response. THIS QUERY IS PART OF THE PERMANENT MEDICAL RECORD Provider Response: Other Other Diagnosis: Hyponatremia
--- NOTE | 2021-04-19 10:26 | PM.PNNEP ---
Subjective Subjective Date of Service: 04/21/21 Interval history: Events noted Feels better Physical Exam Vital Signs: Vital Signs: Last Vital Signs Temp 98.6 F 04/19/21 07:01 Pulse 85 04/19/21 07:01 Resp 21 H 04/19/21 07:01 BP 161/76 H 04/19/21 07:01 Pulse Ox 95 04/19/21 07:01 BMI result Body Mass Index 25.3 Neck: Neck: Yes supple Resp: Auscultation: rhonchi Cardio: Jugular venous distension: no JVD Heart sounds: no murmurs and no rubs GI: Palpation (GI): Soft to palpation Auscultation: normal bowel sounds Neuro: Motor exam (neuro): no asterixis Objective Data Labs CBC & Chem 7: 04/20/21 05:59 04/20/21 05:59 Labs: Laboratory Results - last 24 hr 04/18/21 04/18/21 04/19/21 18:04 20:18 03:40 WBC RBC Hgb Hct MCV MCH MCHC RDW Plt Count MPV Absolute Nucleated RBC Nucleated RBC % (auto) Sodium Potassium Chloride Carbon Dioxide Anion Gap BUN Creatinine Estim Creat Clear Calc Estimated GFR POC Glucose 129 H 148 H 46 L* Fasting Glucose Calcium 04/19/21 04/19/21 04/19/21 03:59 04:21 07:02 WBC RBC Hgb Hct MCV MCH MCHC RDW Plt Count MPV Absolute Nucleated RBC Nucleated RBC % (auto) Sodium Potassium Chloride Carbon Dioxide Anion Gap BUN Creatinine Estim Creat Clear Calc Estimated GFR POC Glucose 59 L* 105 252 H Fasting Glucose Calcium 04/19/21 04/19/21 07:03 07:03 WBC 9.7 RBC 3.74 L Hgb 11.5 L Hct 34.0 L MCV 90.9 MCH 30.7 MCHC 33.8 RDW 14.4 Plt Count 217 MPV 11.9 Absolute Nucleated RBC 0.030 H Nucleated RBC % (auto) 0.3 H Sodium 128 L Potassium 5.1 Chloride 96 Carbon Dioxide 21 L Anion Gap 16 BUN 29 H D Creatinine 7.10 H* Estim Creat Clear Calc 9.8 Estimated GFR 7 POC Glucose Fasting Glucose 278 H Calcium 9.2 D Microbiology Microbiology Results: Microbiology 04/17/21 21:46 Blood - Venous Blood Culture - Preliminary No growth after 24 hours. 04/17/21 21:46 Blood - Venous Blood Culture - Preliminary No growth after 24 hours. Procedures Date of Service Date of Service: 04/19/21 Assessment & Plan Assessment and plan (1) Hypoglycemia: Status: Acute (2) ESRD (end stage renal disease) on dialysis: Status: Chronic Assessment and Plan: 30F presented with syncope found to have hypoglycemia, hypertensive urgency, hypoxia ESRD No overt s/s of uremia HD [facility] Remove fluid as tolerated Syncope due to DM 1 with hypoglycemia monitor FS closely, patient is known to have brittle diabetes with history of both DKA and hypoglcyemia sliding scale insulin Accelerated HTN continue coreg, losartan, amlodipine Would Avoid IV anti hypertensives Bilateral pneumonia likely viral, less likely bacterial vs acute pulmonary edema from fluid overload in ESRD Remove fluid with HD and reassess Mild hyponatremia Restrict PO water intake Time Spent With Patient Time: Total time spent is greater than 50% in coordination of care (as documented) at patient's floor/unit and/or counseling patient: Time with patient: 15 - 24 minutes Progress Note: Quality Stroke Does the patient have a stroke diagnosis?: No
[2021-04-19 10:56] VITALS: BP 176/89; PULSE 83; RESP 19; TEMP 36.6; O2SAT 95
[2021-04-19 11:12] LABS: Glucose, Whole Blood 242 mg/dL (60-115)
--- NOTE | 2021-04-19 12:10 | HO.PM.IMPN ---
Subjective Subjective Date of Service: 04/19/21 Interval History: the patient was seen and evaluated this morning Laying in bed, feels some room input still complaining of dyspnea with minimal exertion Developed hypoglycemia overnight No reported other overnight events. Systemic review: No fever, chills or weakness No chest pain, palpitation dyspnea on exertion and coughing No abdominal pain, nausea or vomiting No urinary symptoms No any rash or wounds Physical Exam Vital Signs: Vital Signs: Last Vital Signs Temp 97.9 F 04/19/21 10:56 Pulse 83 04/19/21 10:56 Resp 19 04/19/21 10:56 BP 176/89 H 04/19/21 10:56 Pulse Ox 95 04/19/21 10:56 BMI result Body Mass Index 25.3 Const: Other: Constitutional : Alert, oriented, not in distress Neck : Normal inspection, Supple Cardiovascular : RRR, S1 S2, no lower extremity edema Respiratory : fair bilateral air entry decreased at the bases with bilateral basal fine crackles Gastrointestinal: soft, lax, Normal bowel sounds, Non tender Skin : Warm, Dry Neurological : Alert & oriented x3, No focal deficit Objective Data Active Medications Amlodipine Besylate (Amlodipine Besylate 10 Mg Tablet) 10 mg PO DAILY [facility]; Protocol Last Admin: 04/19/21 08:23 Dose: 10 mg Documented by: CATHY Carvedilol (Carvedilol 25 Mg Tablet) 25 mg PO BID [facility]; Protocol Last Admin: 04/19/21 08:23 Dose: 25 mg Documented by: CATHY Dextrose (Dextrose 50 % 25 Gm/50 Ml Vial) 25 gm IVPUSH Q15M PRN; Protocol PRN Reason: per Hypoglycemia Standing Ord. Diphenhydramine HCl (Diphenhydramine Hcl 50 Mg/Ml Vial) 25 mg IVPUSH Q6H PRN PRN Reason: Allergic Reaction Last Admin: 04/18/21 20:33 Dose: 25 mg Documented by: DARCY Glucose (Glucose Gel 15 Gm Gel..Gram.) 15 gm PO Q15M PRN; Protocol PRN Reason: per Hypoglycemia Standing Ord. Heparin Sodium (Porcine) (Heparin Sodium,Porcine 5,000 Unit/Ml Vial) 5,000 unit SUBCUT Q8H [facility] Last Admin: 04/19/21 08:21 Dose: 5,000 unit Documented by: CATHY Hydroxyzine HCl (Hydroxyzine Hcl 10 Mg Tablet) 10 mg PO TID [facility] Last Admin: 04/19/21 08:23 Dose: 10 mg Documented by: CATHY Ceftriaxone Sodium 1 gm/ (Sodium Chloride) 50 mls @ 100 mls/hr IV Q24H [facility] Last Infusion: 04/18/21 19:48 Dose: 0 mls/hr Documented by: CATHY Doxycycline Hyclate 100 mg/ (Sodium Chloride) 250 mls @ 166.67 mls/hr IV 0800,2000 [facility] Last Admin: 04/19/21 08:20 Dose: 166.67 mls/hr Documented by: CATHY Insulin Glargine (Insulin Glargine,Hum.Rec.Anlog 100 Unit/Ml 10 Ml Vial) 5 unit SUBCUT DAILY [facility] Insulin Human Lispro (Insulin Lispro 100 Unit/Ml 3 Ml Vial) 0 - 10 unit SUBCUT QIDACHS [facility]; Protocol Last Admin: 04/19/21 08:21 Dose: 6 unit Documented by: CATHY Levetiracetam (Levetiracetam 250 Mg Tablet) 750 mg PO BID [facility] Last Admin: 04/19/21 08:22 Dose: 750 mg Documented by: CATHY Losartan Potassium (Losartan Potassium 50 Mg Tablet) 100 mg PO DAILY [facility]; Protocol Last Admin: 04/19/21 08:23 Dose: 100 mg Documented by: CATHY Multivitamins/Vitamin C (Multivitamin Tablet) 1 tab PO DAILY [facility] Last Admin: 04/19/21 08:23 Dose: 1 tab Documented by: CATHY Pharmacy Consult (Consult Rx Perform Med Rec) 1 each MISCELLANE ONCE PRN PRN Reason: Consult order Sevelamer Carbonate (Sevelamer Carbonate Tablet 800 Mg Tablet) 2,400 mg PO TIDWM [facility] Last Admin: 04/19/21 08:22 Dose: 2,400 mg Documented by: CATHY Valacyclovir HCl (Valacycyclovir Hcl 500 Mg Tablet) 500 mg PO DAILY [facility] Last Admin: 04/19/21 08:23 Dose: 500 mg Documented by: CATHY Vitamin D (Cholecalciferol (Vitamin D3) 25 Mcg Tablet) 25 mcg PO DAILY [facility] Last Admin: 04/19/21 08:23 Dose: 25 mcg Documented by: CATHY Labs CBC & Chem 7: 04/19/21 07:03 04/19/21 07:03 Labs: Laboratory Results - last 24 hr 04/18/21 04/18/21 04/19/21 18:04 20:18 03:40 MCV MCH MCHC RDW Plt Count MPV Absolute Nucleated RBC Nucleated RBC % (auto) Anion Gap Estim Creat Clear Calc Estimated GFR POC Glucose 129 H 148 H 46 L* Fasting Glucose Calcium 04/19/21 04/19/21 04/19/21 03:59 04:21 07:02 MCV MCH MCHC RDW Plt Count MPV Absolute Nucleated RBC Nucleated RBC % (auto) Anion Gap Estim Creat Clear Calc Estimated GFR POC Glucose 59 L* 105 252 H Fasting Glucose Calcium 04/19/21 04/19/21 04/19/21 07:03 07:03 10:56 MCV 90.9 MCH 30.7 MCHC 33.8 RDW 14.4 Plt Count 217 MPV 11.9 Absolute Nucleated RBC 0.030 H Nucleated RBC % (auto) 0.3 H Anion Gap 16 Estim Creat Clear Calc 9.8 Estimated GFR 7 POC Glucose 242 H Fasting Glucose 278 H Calcium 9.2 D Microbiology Microbiology Results: Microbiology 04/17/21 21:46 Blood Culture - Preliminary Blood - Venous No growth after 24 hours. 04/17/21 21:46 Blood Culture - Preliminary Blood - Venous No growth after 24 hours. Assessment and Plan (1) Bilateral pneumonia: Status: Acute (2) 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: Status: Acute (3) Hypertensive urgency: Status: Acute (4) Hyponatremia: Status: Acute Assessment and Plan: 30F presented with syncope found to have hypoglycemia, hypertensive urgeny, hypoxia DM 1 with hypoglycemia cut Lantus down to 5 units starting tomorrow, hold today patient is known to have brittle diabetes with history of both DKA and hypoglcyemia sliding scale insulin Hyponatremia Chronic, fluctuate between 128-133Depending on glucose readings To be corrected by dialysis Follow BMP hypertensive urgency improved with iv hydralazine in ED cotninue coreg, losartan Started on 10 mg amlodipine bilateral pneumonia continue rocephin, doxy negative cultures on room ESRD HD as scheduled, Nephrology following phosphate binders epilepsy keppra dvt prophylaxis - heparin full code Quality Stroke Does the patient have a stroke diagnosis?: No VTE Prior VTE?: No VTE Risk Level:: Medical - moderate - high VTE Device Contraindication: Treatment Not Indicated VTE Drug Contraindication: N/A - Med Ordered
[2021-04-19] MEDS: diphenhydrAMINE HCL 50 MG/ML VIAL 25 MG IVPUSH ×2 (12:53→18:53)
[2021-04-19 14:51] LABS: Glucose, Whole Blood 25 mg/dL (60-115)
[2021-04-19 15:00] LABS: Glucose, Whole Blood 321 mg/dL (60-115)
[2021-04-19 15:11] VITALS: BP 157/83; PULSE 78; RESP 20; TEMP 36.1; O2SAT 92
[2021-04-19 15:46] LABS: Glucose, Whole Blood 134 mg/dL (60-115)
[2021-04-19 15:46] LABS: Glucose, Whole Blood 147 mg/dL (60-115)
[2021-04-19 16:11] LABS: Glucose, Whole Blood 143 mg/dL (60-115)
[2021-04-19] MEDS: cefTRIAXone sodium 1 GM in 0.9 % Sodium Chloride 50 ML IV (17:44)
[2021-04-19 19:06] VITALS: BP 162/75; PULSE 82; RESP 20; TEMP 36.6; O2SAT 97
[2021-04-19 19:47] LABS: Glucose, Whole Blood 291 mg/dL (60-115)
--- NOTE | 2021-04-19 20:06 | PC.NURSE ---
Pt in bed and had increased drowsiness and lethargy. Pt drinking juice and states she feels her blood sugar is low. Pt drank two 120 ml orange juices. Pt had difficulty keeping eyes open. POC glucose checked and was 25 at 14:48. MD notified. [employer] Supervisor and MD at bedside. D50 IVP given. POC glucose at 14:56 was 321. Pt became alert, awake, eyes spontaneously open. Subsequent q15min POC glucose checked were 147, 134. PT condition improved, will monitor and pass on to next nurse.
[2021-04-19] MEDS: oxyCODONE HCl Immed Release 5 MG TABLET PO (20:45)
[2021-04-19 22:20] LABS: Glucose, Whole Blood 216 mg/dL (60-115)
[2021-04-19 23:34] VITALS: BP 163/86; PULSE 89; RESP 18; TEMP 37; O2SAT 93
[2021-04-20] MEDS: diphenhydrAMINE HCL 50 MG/ML VIAL 25 MG IVPUSH ×2 (00:20→08:39)
[2021-04-20 04:00] VITALS: BP 160/97; PULSE 76; RESP 20; TEMP 36.8; O2SAT 93
[2021-04-20 06:44] LABS: Hematocrit 33.5 % (37.0-47.0); Hemoglobin 11.4 g/dl (12.0-16.0); Mean Corpuscular Hemoglobin 31.5 pg (27.0-33.0); Mean Corpuscular Volume 92.5 fL (80.0-98.0); Mean Platelet Volume 12.3 fL (9.4-12.3); Platelet Count 193 X10*3/uL (160-400); Red Blood Count 3.62 X10*6/uL (4.20-5.50); Red Cell Distribution Width 14.2 % (11.0-16.0); White Blood Count 9.7 X10*3/uL (4.8-10.8)
[2021-04-20 06:48] LABS: Anion Gap 21 (12-20); Blood Urea Nitrogen 43 mg/dL (9-16); Calcium 9.2 mg/dL (8.4-10.2); Carbon Dioxide 16 mmol/L (22-29); Chloride 96 mmol/L (96-108); Creatinine Clr Calc Pharmacy 7.4; Estimated Glomerular Filt Rate 5; Glucose Random 300 mg/dL (60-115); Potassium 5.7 mmol/L (3.3-5.1); Sodium 127 mmol/L (135-145)
[2021-04-20 07:14] LABS: Glucose, Whole Blood 310 mg/dL (60-115)
[2021-04-20 07:16] VITALS: BP 160/77; PULSE 83; RESP 20; TEMP 37.1; O2SAT 94
[2021-04-20] MEDS: levETIRAcetam 250 MG TABLET 750 MG PO (08:18)
[2021-04-20] MEDS: Multivitamin TABLET 1 TAB PO (08:18)
[2021-04-20] MEDS: Sevelamer Carbonate Tablet 800 MG TABLET 2400 MG PO ×2 (08:18→12:06)
[2021-04-20] MEDS: Cholecalciferol (Vitamin D3) 25 MCG TABLET PO (08:18)
[2021-04-20] MEDS: Losartan Potassium 50 MG TABLET 100 MG PO (08:18)
[2021-04-20] MEDS: amLODIPine Besylate 10 MG TABLET PO (08:18)
[2021-04-20] MEDS: Insulin Glargine,Hum.rec.anlog 100 UNIT/ML 10 ML VIAL SUBCUT (08:19)
[2021-04-20] MEDS: Insulin Lispro 100 UNIT/ML 3 ML VIAL SUBCUT ×2 (08:19→12:06)
[2021-04-20] MEDS: carvediloL 25 MG TABLET PO (08:21)
[2021-04-20] MEDS: Doxycycline Hyclate 100 MG in 0.9 % Sodium Chloride 250 ML 166.67 MG IV (08:39)
--- NOTE | 2021-04-20 10:41 | PM.PNNEP ---
Subjective Subjective Date of Service: 04/21/21 Interval history: Events noted Physical Exam Vital Signs: Vital Signs: Last Vital Signs Temp 98.8 F 04/20/21 07:16 Pulse 83 04/20/21 07:16 Resp 20 04/20/21 07:16 BP 160/77 H 04/20/21 07:16 Pulse Ox 94 04/20/21 07:16 BMI result Body Mass Index 25.3 Neck: Neck: Yes supple Resp: Auscultation: rhonchi Cardio: Jugular venous distension: no JVD Heart sounds: no murmurs and no rubs GI: Palpation (GI): Soft to palpation Auscultation: normal bowel sounds Neuro: Motor exam (neuro): no asterixis Objective Data Labs CBC & Chem 7: 04/20/21 05:59 04/20/21 05:59 Labs: Laboratory Results - last 24 hr 04/19/21 04/19/21 04/19/21 10:56 14:48 14:56 WBC RBC Hgb Hct MCV MCH MCHC RDW Plt Count MPV Absolute Nucleated RBC Nucleated RBC % (auto) Sodium Potassium Chloride Carbon Dioxide Anion Gap BUN Creatinine Estim Creat Clear Calc Estimated GFR POC Glucose 242 H 25 L* 321 H Random Glucose Calcium 04/19/21 04/19/21 04/19/21 15:16 15:42 16:05 WBC RBC Hgb Hct MCV MCH MCHC RDW Plt Count MPV Absolute Nucleated RBC Nucleated RBC % (auto) Sodium Potassium Chloride Carbon Dioxide Anion Gap BUN Creatinine Estim Creat Clear Calc Estimated GFR POC Glucose 147 H 134 H 143 H Random Glucose Calcium 04/19/21 04/19/21 04/20/21 19:35 22:17 05:59 WBC 9.7 RBC 3.62 L Hgb 11.4 L Hct 33.5 L MCV 92.5 MCH 31.5 MCHC 34.0 RDW 14.2 Plt Count 193 MPV 12.3 Absolute Nucleated RBC 0.000 Nucleated RBC % (auto) 0.0 Sodium Potassium Chloride Carbon Dioxide Anion Gap BUN Creatinine Estim Creat Clear Calc Estimated GFR POC Glucose 291 H 216 H Random Glucose Calcium 04/20/21 04/20/21 05:59 07:10 WBC RBC Hgb Hct MCV MCH MCHC RDW Plt Count MPV Absolute Nucleated RBC Nucleated RBC % (auto) Sodium 127 L Potassium 5.7 H Chloride 96 Carbon Dioxide 16 L Anion Gap 21 H BUN 43 H Creatinine 9.34 H* Estim Creat Clear Calc 7.4 Estimated GFR 5 POC Glucose 310 H Random Glucose 300 H Calcium 9.2 Microbiology Microbiology Results: Microbiology 04/17/21 21:46 Blood - Venous Blood Culture - Preliminary No growth after 48 hours. 04/17/21 21:46 Blood - Venous Blood Culture - Preliminary No growth after 48 hours. Procedures Date of Service Date of Service: 04/20/21 Assessment & Plan Assessment and plan (1) Hypoglycemia: Status: Acute (2) ESRD (end stage renal disease) on dialysis: Status: Chronic Assessment and Plan: 30F presented with syncope found to have hypoglycemia, hypertensive urgency, hypoxia ESRD No overt s/s of uremia HD today Remove fluid as tolerated Syncope due to DM 1 with hypoglycemia monitor FS closely, patient is known to have brittle diabetes with history of both DKA and hypoglcyemia sliding scale insulin Accelerated HTN continue coreg, losartan, amlodipine Would Avoid IV anti hypertensives Watch BP after fluid removal with HD Bilateral pneumonia likely viral, less likely bacterial vs acute pulmonary edema from fluid overload in ESRD Remove fluid with HD and reassess Time Spent With Patient Time: Total time spent is greater than 50% in coordination of care (as documented) at patient's floor/unit and/or counseling patient: Time with patient: 15 - 24 minutes Progress Note: Quality Stroke Does the patient have a stroke diagnosis?: No
[2021-04-20 11:02] VITALS: BP 135/65; PULSE 83; RESP 20; TEMP 37.1; O2SAT 95
[2021-04-20 11:16] LABS: Glucose, Whole Blood 223 mg/dL (60-115)
--- NOTE | 2021-04-20 13:17 | PM.DS ---
DS: Providers Provider Date of Service: 04/20/21 Date of admission: 04/18/21 01:06 Primary care physician: Unknown Physician Consults: 04/18/21 01:03 Consult to Nephrology Routine Consulting Provider: Bc Posada Reason for consultation: esrd DS: Diagnosis Discharge Diagnosis (1) Hypoglycemia: Status: Acute (2) ESRD (end stage renal disease) on dialysis: Status: Chronic DS: Summary Hospital Course Hospital Course: Patient was admitted for acute hypoxic respiratory failure secondary to possible bilateral pneumonia viral versus bacterial and pulmonary edema in the setting of end-stage renal disease and hypertensive urgency, as well as syncope due to type 1 diabetes with hypoglycemia. Patient's sugars were monitored closely, patient has a known brittle diabetic. Sugars are much more stable now. For her hypertensive urgency she was given amlodipine, carvedilol, losartan. Her blood pressures have improved. For fluid overload she underwent hemodialysis which improved. Patient will be discharged home on 5 more days of doxycycline and continue new medication of amlodipine. Time Spent with Patient Time attestation: Total time spent providing and/or coordinating discharge services: Discharge coordination time: Greater than 30 minutes Quality: Stroke Does the patient have a stroke diagnosis?: No Physical Exam Vital Signs: Vital Signs: Last Vital Signs Temp 98.7 F 04/20/21 11:02 Pulse 83 04/20/21 11:02 Resp 20 04/20/21 11:02 BP 135/65 04/20/21 11:02 Pulse Ox 95 04/20/21 11:02 BMI result Body Mass Index 25.3 General: AO X 3, no acute distress Resp: CTA bilateral, no accessory muscles used CVS: S1,S2,RRR GI: soft, non tender, non distended Neuro: motor grossly intact, alert Psych: appropriate affect, appropriate insight DS: Data Data Completed and Pending Labs on day of discharge: Laboratory Results - last 24 hr 04/19/21 04/19/21 04/19/21 14:48 14:56 15:16 WBC RBC Hgb Hct MCV MCH MCHC RDW Plt Count MPV Absolute Nucleated RBC Nucleated RBC % (auto) Sodium Potassium Chloride Carbon Dioxide Anion Gap BUN Creatinine Estim Creat Clear Calc Estimated GFR POC Glucose 25 L* 321 H 147 H Random Glucose Calcium 04/19/21 04/19/21 04/19/21 15:42 16:05 19:35 WBC RBC Hgb Hct MCV MCH MCHC RDW Plt Count MPV Absolute Nucleated RBC Nucleated RBC % (auto) Sodium Potassium Chloride Carbon Dioxide Anion Gap BUN Creatinine Estim Creat Clear Calc Estimated GFR POC Glucose 134 H 143 H 291 H Random Glucose Calcium 04/19/21 04/20/21 04/20/21 22:17 05:59 05:59 WBC 9.7 RBC 3.62 L Hgb 11.4 L Hct 33.5 L MCV 92.5 MCH 31.5 MCHC 34.0 RDW 14.2 Plt Count 193 MPV 12.3 Absolute Nucleated RBC 0.000 Nucleated RBC % (auto) 0.0 Sodium 127 L Potassium 5.7 H Chloride 96 Carbon Dioxide 16 L Anion Gap 21 H BUN 43 H Creatinine 9.34 H* Estim Creat Clear Calc 7.4 Estimated GFR 5 POC Glucose 216 H Random Glucose 300 H Calcium 9.2 04/20/21 04/20/21 07:10 11:00 WBC RBC Hgb Hct MCV MCH MCHC RDW Plt Count MPV Absolute Nucleated RBC Nucleated RBC % (auto) Sodium Potassium Chloride Carbon Dioxide Anion Gap BUN Creatinine Estim Creat Clear Calc Estimated GFR POC Glucose 310 H 223 H Random Glucose Calcium Preliminary micro results at discharge 04/17/21 21:46 Blood Culture - Preliminary Blood - Venous No growth after 48 hours. 04/17/21 21:46 Blood Culture - Preliminary Blood - Venous No growth after 48 hours. Discharge Plan Discharge Patient Disposition: Home, Self-Care Discharge Diagnosis: hypoglycemia Referrals: Physician,Unknown J [Primary Care Provider] - 1 Week Discharge Medications: New amlodipine 10 mg Tablet 10 mg PO DAILY Qty: 30 RF: 0 doxycycline hyclate 100 mg capsule 100 mg PO BID Qty: 10 RF: 0 Continued hydroxyzine HCl 10 mg Tablet 10 mg PO TID RF: 0 multivitamin [Daily-Alyx] Tablet 1 tab PO DAILY RF: 0 levetiracetam 750 mg Tablet 750 mg PO BID RF: 0 insulin lispro [Humalog U-100 Insulin] 100 unit/mL solution See Protocol sliding scale dose SUBCUT QIDACHS RF: 0 valacyclovir 500 mg tablet 1 tab PO DAILY RF: 0 losartan 100 mg tablet 1 tab PO DAILY RF: 0 carvedilol 25 mg tablet 25 mg PO BID RF: 0 acetaminophen 500 mg Tablet 500 mg PO Q6H PRN (Reason: Pain) RF: 0 cholecalciferol (vitamin D3) [Vitamin D3] 25 mcg (1,000 unit) Tablet 25 mcg PO DAILY RF: 0 sevelamer carbonate [Renvela] 800 mg tablet 2,400 mg PO TIDAC RF: 0 Lantus U-100 Insulin 100 unit/mL solution 10 unit SUBCUT QAM RF: 0 (DME) FreeStyle Lola 2 Sensor Kit See Rx Instructions .ROUTE .MEDSUPPLY Qty: 2 RF: 12 (DME) FreeStyle Lola 2 [place] Misc See Rx Instructions .ROUTE .MEDSUPPLY Qty: 1 RF: 0 (DME) FreeStyle Precision Ian Strips Strip See Rx Instructions .ROUTE .MEDSUPPLY Qty: 50 RF: 7 Discharge Orders: Discharge Order (Routine); Ordered 04/20/21 Ordered By: Abhi Walsh Diet: advance to usual diet Activity on Discharge: As tolerated Stand Alone Forms: Patient Portal Discharge page Care Plan Goals: reocvery Health Concerns: fluid overload, htn, possible pneumonia, hypoglycemia Plan of Treatment: 5 more days doxy, monitor sugars, started on amldoipnie, follow up nephro Assessment: see above
--- NOTE | 2021-04-20 13:40 | MHC.CM.PN ---
Female 30 DX ESRD She is discharged today to home. No home services ordered or required. She has arranged for transportation home.
[2021-04-20 18:46] VITALS: BP 150/80; PULSE 88; RESP 15; TEMP 36.6; O2SAT 98
== END 2021-04-20 19:42 | disposition home or self-care (01) | DRG 682 ==
LOC: HO.ED 04-18 00:47 → HO.EDOVER 04-18 01:11 → HO.IMC 04-18 16:43
PROVIDERS: Student in an Organized Health Care Education/Training Program; Admitting Provider Internal Medicine; Emergency Provider Internal Medicine; PCP Internal Medicine; Visit Provider Internal Medicine
DX: I12.0 Hypertensive chronic kidney disease with stage 5 chronic kidney disease or end stage renal disease (principal); N18.6 End stage renal disease; J96.01 Acute respiratory failure with hypoxia; J18.9 Pneumonia, unspecified organism; E87.1 Hypo-osmolality and hyponatremia; I16.0 Hypertensive urgency; Z99.2 Dependence on renal dialysis; E10.649 Type 1 diabetes mellitus with hypoglycemia without coma; G40.909 Epilepsy, unspecified, not intractable, without status epilepticus; E10.22 Type 1 diabetes mellitus with diabetic chronic kidney disease; Z91.14 Patient's other noncompliance with medication regimen; Z20.822 Contact with and (suspected) exposure to COVID-19; Z79.4 Long term (current) use of insulin; Z79.899 Other long term (current) drug therapy
CPT/HCPCS: 36415; 71045; 80048; 80053; 82947; 83605; 85025; 85027; 87040; 87635; 90999; 99285; J0696; J1200; J1940

== ENCOUNTER 2021-06-02 04:07 | Inpatient (IN) | payer MEDICARE, MEDICAID, SELFPAY ==
[2021-06-02] VITALS (12 sets, daily range): BP systolic 124–207; BP diastolic 65–98; PULSE 67–82; RESP 13–23; TEMP 35.1–36.7; O2SAT 95–100; BMI 25.4; BMI 26.6
--- NOTE | ~2021-06-02 | XR_ITS ---
EXAMINATION: XR CHEST CLINICAL INFORMATION: Cough COMPARISON: 04/20/2021 TECHNIQUE: Frontal view of the chest was obtained. XR/XR chest 1V FINDINGS/IMPRESSION: Following venous congestion and mild interstitial edema. Small right pleural effusion and accompanying atelectasis. No pleural effusion on the left. No pneumothorax. No acute osseous abnormalities.
--- NOTE | ~2021-06-02 | CT_ITS ---
EXAMINATION: CT CHEST WITHOUT CONTRAST CLINICAL INFORMATION: Pneumonia versus pulmonary edema COMPARISON: Chest x-ray of same day and studies dating back to CT study of July 16, 2019 TECHNIQUE: Multidetector volumetric CT imaging of the chest was done. Axial MIP volume rendering provided. Sagittal and coronal reformatted images were obtained. This CT examination was performed using dose optimization techniques as appropriate, variously including the following: *Automated exposure control *Adjustment of mA and/or kV according to patient size (this includes techniques or standardized protocols for targeted exams where dose is matched to indication/reason for exam; i.e. extremities or head) *Use of iterative reconstruction technique DLP: 181 mGy-cm FINDINGS: LUNGS: Central airways are patent. There is some bronchial wall thickening present without evidence of bronchiectasis. There is a small right pleural effusion with basilar airspace disease. No evidence of airspace pulmonary edema. There may be some degree of interstitial edema. There is some thickening of the fissures which may be related to some fluid being present. There are some scattered sub-4 mm densities noted. There is a 5 mm calcified granuloma seen within the right lower lobe. A small calcified granulomas are scattered within the lungs bilaterally. Within the right upper lobe on image 96 of 404 in series #5 there is a 4.5 mm subpleural noncalcified density. MEDIASTINUM: There is some residual thymic tissue present. Visualized thyroid gland appears unremarkable. There are a few nonenlarged calcified mediastinal lymph nodes. Heart normal size. No pericardial effusion. No coronary artery calcifications appreciated. PLEURA: There is a small right pleural effusion. AXILLA: No lymphadenopathy. UPPER ABDOMEN: Splenic artery calcifications present. OSSEOUS STRUCTURES: No acute destructive bony lesions identified. CT/CT chest wo con IMPRESSION: Increased interstitial prominence consistent with some degree of interstitial edema with no airspace edema appreciated. Small right pleural effusion with basilar atelectasis. Old granulomatous disease.
[2021-06-02 04:22] LABS: Glucose, Whole Blood 114 mg/dL (60-115)
--- NOTE | 2021-06-02 04:26 | ECG_ITS ---
Test Reason : LOW BLOOD SUGAR Blood Pressure : / mmHG Vent. Rate : 067 BPM Atrial Rate : 067 BPM P-R Int : 156 ms QRS Dur : 074 ms QT Int : 512 ms P-R-T Axes : 058 024 030 degrees QTc Int : 541 ms Normal sinus rhythm Cannot rule out Inferior infarct , age undetermined Cannot rule out Anterior infarct , age undetermined Prolonged QT Abnormal ECG When compared with ECG of 13-JAN-2020 11:30, T wave amplitude has decreased in Anterior leads QT has lengthened Referred By: Marianne Prieto Electronically Signed By:OSMAN HUYNH MD
[2021-06-02 04:57] LABS: Basophils Absolute Auto 0.1 X10*3/uL (0.0-0.2); Basophils Percent Auto 0.3 % (0-2); Eosinophils Absolute Auto 0.2 X10*3/uL (0.0-0.4); Hemoglobin 11.1 g/dl (12.0-16.0); Imm Gran Abs Auto 0.05 X10*3/uL (0.00-0.03); Imm Gran Pct Auto 0.3 % (0.0-0.4); Lymphocytes Absolute Auto 1.8 X10*3/uL (1.2-4.9); Lymphocytes Percent Auto 10.4 % (20-40); MANUAL DIFF FLAG NO; Mean Corpuscular HGB Conc 34.7 g/dl (31.0-35.0); Mean Corpuscular Hemoglobin 31.6 pg (27.0-33.0); Mean Corpuscular Volume 91.2 fL (80.0-98.0); Mean Platelet Volume 12.5 fL (9.4-12.3); Monocytes Absolute Auto 0.6 X10*3/uL (0.1-1.2); Monocytes Percent Auto 3.7 % (2-11); Neutrophils Absolute Auto 14.6 x10*3/uL (2.0-8.3); Neutrophils Percent Auto 84.3 % (45-73); Platelet Count 202 X10*3/uL (160-400); Red Blood Count 3.51 X10*6/uL (4.20-5.50); Red Cell Distribution Width 13.6 % (11.0-16.0); White Blood Count 17.3 X10*3/uL (4.8-10.8)
[2021-06-02 05:06] LABS: Lactic Acid 0.9 mmol/L (0.5-2.0)
[2021-06-02 05:08] LABS: Acetone, serum QL Negative (Negative)
[2021-06-02 05:16] LABS: Alanine Aminotransferase 40 U/L (0-31); Albumin Level 3.7 g/dL (3.5-5.0); Alkaline Phosphatase 365 U/L (39-117); Anion Gap 18 (12-20); Aspartate Amino Transferase 39 U/L (5-31); B Type Natriuretic Peptide 2957 pg/mL (<100); Bilirubin Total 0.7 mg/dL (0.0-1.0); Blood Urea Nitrogen 36 mg/dL (9-16); Calcium 8.6 mg/dL (8.4-10.2); Carbon Dioxide 29 mmol/L (22-29); Chloride 94 mmol/L (96-108); Creatinine Clr Calc Pharmacy 10.4; Estimated Glomerular Filt Rate 7; Glucose Random 135 mg/dL (60-115); Lipase 18 U/L (8-78); Potassium 3.3 mmol/L (3.3-5.1); Sodium 138 mmol/L (135-145); Total Protein 7.7 g/dL (6.5-8.0)
[2021-06-02 05:20] LABS: HCG Quantitative < 2 mIU/mL
--- NOTE | 2021-06-02 05:25 | ED_ITS ---
HPI - General Adult General Chief complaint: Recheck/Abnormal Lab/Rx Stated complaint: hypoglycemia Time Seen by Provider: 06/02/21 04:26 Source: patient Mode of arrival: EMS History of Present Illness HPI narrative: 30-year-old female with history diabetes, ESRD on hemodialysis, who is brought in by EMS from home for point of care of 60 and patient stating ?I do not remember what happened?. Patient states that she has had no ability to use her glucose sensor due to change in insurance companies. She does endorse that she has recently been ill with pneumonia and is not been feeling well, complaints of body aches as well as feeling chilled. Related Data Home Medications Medication Instructions Recorded Confirmed hydroxyzine HCl 10 mg tablet 10 mg PO TID 01/14/20 04/18/21 levetiracetam 750 mg tablet 750 mg PO BID 01/14/20 04/18/21 multivitamin (Daily-Alyx) 1 tab PO DAILY 01/14/20 04/18/21 insulin glargine 100 unit/mL 10 unit SUBCUT QAM ml 05/04/20 04/18/21 subcutaneous solution (Lantus U-100 Insulin) insulin lispro 100 unit/mL See Protocol SUBCUT QIDACHS ml 05/04/20 04/18/21 subcutaneous solution (Humalog U-100 Insulin) sevelamer carbonate 800 mg tablet 2,400 mg PO TIDAC 05/04/20 04/18/21 (Renvela) acetaminophen 500 mg tablet 500 mg PO Q6H PRN 04/18/21 04/18/21 carvedilol 25 mg tablet 25 mg PO BID 04/18/21 04/18/21 cholecalciferol (vitamin D3) 25 25 mcg PO DAILY 04/18/21 04/18/21 mcg (1,000 unit) tablet (Vitamin D3) losartan 100 mg tablet 1 tab PO DAILY 04/18/21 04/18/21 valacyclovir 500 mg tablet 1 tab PO DAILY 04/18/21 04/18/21 Previous Rx's Medication Instructions Recorded blood sugar diagnostic (FreeStyle #50 ea 05/04/20 Precision Ian Strips) flash glucose scanning reader #1 ea 05/04/20 (FreeStyle Lola 2 [place]) flash glucose sensor (FreeStyle #2 ea 05/04/20 Lola 2 Sensor) amlodipine 10 mg tablet 10 mg PO DAILY #30 tab 04/20/21 doxycycline hyclate 100 mg capsule 100 mg PO BID #10 cap 04/20/21 Allergies Allergy/AdvReac Type Severity Reaction Status Date / Time icodextrin Allergy Mild Rash Verified 05/04/20 14:21 CLOROXINE Allergy Unknown RASH Uncoded 01/13/20 11:01 Review of Systems Review of Systems: Pertinent positives and negatives as stated in HPI 10 point review of systems is otherwise negative. [facility] Past Medical History Source: nursing notes reviewed Medical History Diabetes type 1, uncontrolled Diabetic polyneuropathy associated with type 1 diabetes mellitus Dyslipidemia ESRD (end stage renal disease) Hypertension Hypoglycemia due to type 1 diabetes mellitus 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 Surgical History History of hemodialysis Hx of amputation Hx of section Hx of eye surgery Family History Family History Father Diabetes mellitus Mother Thyroid disease Pre-diabetes HTN (hypertension) Acute depression Arthritis Social History Social History Household Members: Significant Other and Children Housing: Apartment Do you presently have visiting nurse or other home services: No Alcohol intake: never Patient Tobacco Use Status: Never used Tobacco Advance Directives: No Patient : No service: No Current occupational status: unemployed Physical Exam ED Vital Signs: Vital Signs - 24 hr 06/02/21 04:13 06/02/21 05:11 Temperature 95.1 F L Pulse Rate 67 67 Respiratory Rate 23 H 18 Blood Pressure 179/97 H 182/96 H Pulse Oximetry 98 98 BMI result Body Mass Index 25.4 VITAL SIGNS: Reviewed. GENERAL: Well developed, well nourished, in no acute distress. HEAD: Normocephalic/atraumatic EYES: PERRLA, EOMI OROPHARYNX: no oral lesions noted, posterior pharynx clear LUNGS: Normal breath sounds. No adventitious sounds or accessory muscle use. SpO2<98> CARDIOVASCULAR: Regular rate and rhythm without noted murmurs, no JVD or lower extremity edema. ABDOMEN: Soft, non-tender, non-distended with bowel sounds. No rigidity. No guarding. No palpable masses or hernias noted MUSCULOSKELETAL: No tenderness, deformities, or effusions noted on gross inspection; EXTREMITIES: No cyanosis, clubbing or edema; LEFT UPPER EXTREMITY: Fistula with both thrill and bruit noted SKIN: Inspection of the skin reveals no rashes NEUROLOGIC: Alert and oriented x 4. Strength and sensation to light touch were grossly intact x 4. Course Course Course Narrative: 30-year-old female with history and clinical presentation suggestive of possible infectious etiology as well as inability to use her glucose sensing system. Patient is otherwise awake and alert. 0530: Suspect infection. Review of all investigations significant for sepsis, pulmonary edema, hypoglycemia. Patient is otherwise hemodynamically stable and this case was discussed with the inpatient hospitalist who accepts admission. Medical Decision Making Lab Data Result diagrams: 06/02/21 04:51 06/02/21 04:51 Labs: Lab Results 06/02/21 06/02/21 06/02/21 Range/Units 04:18 04:51 04:51 WBC 17.3 H (4.8-10.8) X10*3/uL RBC 3.51 L (4.20-5.50) X10*6/uL Hgb 11.1 L (12.0-16.0) g/dl Hct 32.0 L (37.0-47.0) % MCV 91.2 (80.0-98.0) fL MCH 31.6 (27.0-33.0) pg MCHC 34.7 (31.0-35.0) g/dl RDW 13.6 (11.0-16.0) % Plt Count 202 (160-400) X10*3/uL MPV 12.5 H (9.4-12.3) fL Immature Gran % (Auto) 0.3 (0.0-0.4) % Neut % (Auto) 84.3 H (45-73) % Lymph % (Auto) 10.4 L (20-40) % Petroleum % (Auto) 3.7 (2-11) % Eos % (Auto) 1.0 (0-4) % Baso % (Auto) 0.3 (0-2) % Lymph # (Auto) 1.8 (1.2-4.9) X10*3/uL [place] # (Auto) 0.6 (0.1-1.2) X10*3/uL Eos # (Auto) 0.2 (0.0-0.4) X10*3/uL Baso # (Auto) 0.1 (0.0-0.2) X10*3/uL Abs Immat Gran (auto) 0.05 H (0.00-0.03) X10*3/uL Absolute Neuts (auto) 14.6 H (2.0-8.3) x10*3/uL Absolute Nucleated RBC 0.000 (0.0-0.012) X10*3/uL Nucleated RBC % (auto) 0.0 (0.0-0.2) /100WBC Sodium 138 (135-145) mmol/L Potassium 3.3 D (3.3-5.1) mmol/L Chloride 94 L (96-108) mmol/L Carbon Dioxide 29 (22-29) mmol/L Anion Gap 18 (12-20) BUN 36 H (9-16) mg/dL Creatinine 6.68 H* (0.5-1.4) mg/dL Estim Creat Clear Calc 10.4 Estimated GFR 7 POC Glucose 114 (60-115) mg/dL Random Glucose 135 H (60-115) mg/dL Lactic Acid (0.5-2.0) mmol/L Calcium 8.6 D (8.4-10.2) mg/dL Magnesium 2.0 (1.6-2.6) mg/dL Total Bilirubin 0.7 (0.0-1.0) mg/dL AST 39 H D (5-31) U/L ALT 40 H (0-31) U/L Alkaline Phosphatase 365 H D (39-117) U/L B-Natriuretic Peptide (<100) pg/mL Total Protein 7.7 (6.5-8.0) g/dL Albumin 3.7 (3.5-5.0) g/dL Lipase 18 (8-78) U/L Beta HCG, Quant < 2 mIU/mL Acetone, Qual Negative (Negative) 06/02/21 06/02/21 Range/Units 04:51 04:51 WBC (4.8-10.8) X10*3/uL RBC (4.20-5.50) X10*6/uL Hgb (12.0-16.0) g/dl Hct (37.0-47.0) % MCV (80.0-98.0) fL MCH (27.0-33.0) pg MCHC (31.0-35.0) g/dl RDW (11.0-16.0) % Plt Count (160-400) X10*3/uL MPV (9.4-12.3) fL Immature Gran % (Auto) (0.0-0.4) % Neut % (Auto) (45-73) % Lymph % (Auto) (20-40) % [place] % (Auto) (2-11) % Eos % (Auto) (0-4) % Baso % (Auto) (0-2) % Lymph # (Auto) (1.2-4.9) X10*3/uL [place] # (Auto) (0.1-1.2) X10*3/uL Eos # (Auto) (0.0-0.4) X10*3/uL Baso # (Auto) (0.0-0.2) X10*3/uL Abs Immat Gran (auto) (0.00-0.03) X10*3/uL Absolute Neuts (auto) (2.0-8.3) x10*3/uL Absolute Nucleated RBC (0.0-0.012) X10*3/uL Nucleated RBC % (auto) (0.0-0.2) /100WBC Sodium (135-145) mmol/L Potassium (3.3-5.1) mmol/L Chloride (96-108) mmol/L Carbon Dioxide (22-29) mmol/L Anion Gap (12-20) BUN (9-16) mg/dL Creatinine (0.5-1.4) mg/dL Estim Creat Clear Calc Estimated GFR POC Glucose (60-115) mg/dL Random Glucose (60-115) mg/dL Lactic Acid 0.9 (0.5-2.0) mmol/L Calcium (8.4-10.2) mg/dL Magnesium (1.6-2.6) mg/dL Total Bilirubin (0.0-1.0) mg/dL AST (5-31) U/L ALT (0-31) U/L Alkaline Phosphatase (39-117) U/L B-Natriuretic Peptide 2957 H (<100) pg/mL Total Protein (6.5-8.0) g/dL Albumin (3.5-5.0) g/dL Lipase (8-78) U/L Beta HCG, Quant mIU/mL Acetone, Qual (Negative) ECG Data Attestation: I personally reviewed and interpreted this ECG as follows: Prior ECG tracings: available for review Interpretation: Normal sinus rhythm, HR-67, no STEMI, HI/QRS within normal limits and noted prolonged QT. Critical Care Time Critical Care Time Critical Care Time: Yes Total Critical Care Time: 30 Attestation: I personally attest to this time spent taking care of the patient. Discharge Plan Discharge Clinical Impression: Hypoglycemia, ESRD (end stage renal disease) on dialysis, Sepsis, Pulmonary edema Patient Disposition: Admitted As Inpatient
[2021-06-02] MEDS: cefTRIAXone sodium 1 GM in 0.9 % Sodium Chloride 50 ML IV (05:43)
[2021-06-02] MEDS: Nitroglycerin 2 % Oint 1 GM Packet 0.5 INCH TRANSDERMA (05:47)
[2021-06-02 06:02] LABS: COVID-19 Test Negative (Negative)
[2021-06-02 07:12] LABS: Glucose, Whole Blood 210 mg/dL (60-115)
--- NOTE | 2021-06-02 10:03 | PHA.MEDREC ---
MED REC COMPLETE, NO ISSUES Pharmacy Consult ? Medication Reconciliation Pharmacy has completed the medication reconciliation.
[2021-06-02 11:13] LABS: Procalcitonin 1.48 ng/mL
--- NOTE | 2021-06-02 11:20 | PM.IMHP ---
History of Present Illness Date of Service: 06/02/21 Chief Complaint: low blood sugars, cough, shortness of breath This is a 30 yo F with a PMH of Type 1 DM, ESRD on HD MWF (since age 11), HTN, Epilepsy on Keppra who presents to the ED after a hypoglycemic episode this morning. Patient reports that her significant other attempted to wake her this morning but she was lethargic and has no recollection of the events. Paramdics were called and her sugars were around 60,. she was given dextrose/glucose and brought to the ED. She reports that she take 5 units of lantus on dilaysis days and 10 on non-dialysis days. She reports that she ate a normal meal at dinner time the evening prior. Upon further questiong, she reports that she has had a cough for the last 7-10 days, non-productive with no fevers or chills. She further endorses that she is being treated for a pnumonia and has been complaint with her antibiotics (Augmetin) as prescribed. She reports orthopnea symptoms and some exertional dyspnea. Upon arrival to the ED, she was noted to have Leukocytosis with a left shift (17 k, 14 bands). Her procalcitonin is elevated at 1.48. Her CXR shows mild venous congestion and mild interstitial edema. There is a small R pleural effusion with accomapnying atelectasis. She has had cultures drawn, given IV rocephin and admissions is requested. Review of Systems Review of Systems: negative except HPI [facility] Medical History Diabetes type 1, uncontrolled Diabetic polyneuropathy associated with type 1 diabetes mellitus Dyslipidemia ESRD (end stage renal disease) Hypertension Hypoglycemia due to type 1 diabetes mellitus 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 Family History Father Diabetes mellitus Mother Thyroid disease Pre-diabetes HTN (hypertension) Acute depression Arthritis Surgical History History of hemodialysis Hx of amputation Hx of section Hx of eye surgery Social History Household Members: Significant Other and Children Housing: Apartment Do you presently have visiting nurse or other home services: No Alcohol intake: never Patient Tobacco Use Status: Never used Tobacco Advance Directives: No Patient : No service: No Current occupational status: unemployed Meds Allergies Allergy/AdvReac Type Severity Reaction Status Date / Time icodextrin Allergy Mild Rash Verified 05/04/20 14:21 CLOROXINE Allergy Unknown RASH Uncoded 01/13/20 11:01 Active Medications: Current Medications Carvedilol (Carvedilol 12.5 Mg Tablet) 37.5 mg PO BID VASILE; Protocol Pharmacy Consult (Consult Rx Perform Med Rec) 1 each MISCELLANE ONCE PRN PRN Reason: Consult order Home Medications Medication Instructions Recorded Confirmed Last Taken Type levetiracetam 750 mg tablet 750 mg PO BID 01/14/20 06/02/21 04/17/21 History multivitamin (Daily-Alyx) 1 tab PO DAILY 01/14/20 06/02/21 04/17/21 History insulin glargine 100 unit/mL 10 unit SUBCUT SUTUTHSA@0900 ml 05/04/20 06/02/21 04/17/21 History subcutaneous solution (Lantus U-100 Insulin) carvedilol 25 mg tablet 37.5 mg PO BID 04/18/21 06/02/21 04/17/21 History cholecalciferol (vitamin D3) 25 25 mcg PO DAILY 04/18/21 06/02/21 04/17/20 History mcg (1,000 unit) tablet (Vitamin D3) losartan 100 mg tablet 1 tab PO BID 04/18/21 06/02/21 04/17/21 History valacyclovir 500 mg tablet 1 tab PO DAILY 04/18/21 06/02/21 04/17/21 History amoxicillin 875 mg-potassium 1 tab PO Q12H 06/02/21 06/02/21 Unknown History clavulanate 125 mg tablet cinacalcet 60 mg tablet (Sensipar) 60 mg PO MOWEFR@0800 06/02/21 06/02/21 Unknown History ferric citrate 210 mg iron tablet 420 mg PO TIDWM 06/02/21 06/02/21 Unknown History (Auryxia) fluticasone propionate 50 2 spray INTRANASAL DAILY 06/02/21 06/02/21 Unknown History mcg/actuation nasal spray,suspension insulin glargine 100 unit/mL (3 5 unit SUBCUT MOWEFR@0900 06/02/21 06/02/21 Unknown History mL) subcutaneous pen (Lantus Solostar U-100 Insulin) nifedipine 30 mg tablet,extended 30 mg PO DAILY 06/02/21 06/02/21 Unknown History release Physical Exam Vital Signs and Narrative: Vital Signs: Last Vital Signs Temp 95.2 F L 06/02/21 06:18 Pulse 78 06/02/21 11:11 Resp 13 06/02/21 11:11 BP 176/80 H 06/02/21 11:11 Pulse Ox 97 06/02/21 11:11 BMI result Body Mass Index 25.4 Const: Other: Constitutional - Awake and Alert, No apparent distress Eyes - PERRLA, EOMI Cardiovascular - S1S2, RRR, No edema Respiratory -Dim sounds on the R, otherwise clear lungs Gastrointestinal - NT / ND; +BS; No rebound or guarding - No CVA tenderness Extremities - no calf tenderness bilaterally, no swelling; LUE fistula +thrill/bruit Musculoskeletal - Normal inspection, normal ROM Skin - Warm/Dry Neurological - Alert & oriented x3, No focal deficit Psychological - Appropriate affect Results Labs CBC and Chem 7: 06/02/21 04:51 06/02/21 04:51 Labs: Laboratory Results - last 24 hr 06/02/21 06/02/21 06/02/21 04:18 04:51 04:51 MCV 91.2 MCH 31.6 MCHC 34.7 RDW 13.6 Plt Count 202 MPV 12.5 H Immature Gran % (Auto) 0.3 Neut % (Auto) 84.3 H Lymph % (Auto) 10.4 L [place] % (Auto) 3.7 Eos % (Auto) 1.0 Baso % (Auto) 0.3 Lymph # (Auto) 1.8 [place] # (Auto) 0.6 Eos # (Auto) 0.2 Baso # (Auto) 0.1 Abs Immat Gran (auto) 0.05 H Absolute Neuts (auto) 14.6 H Absolute Nucleated RBC 0.000 Nucleated RBC % (auto) 0.0 Anion Gap 18 Estim Creat Clear Calc 10.4 Estimated GFR 7 POC Glucose 114 Random Glucose 135 H Lactic Acid Calcium 8.6 D Magnesium 2.0 Total Bilirubin 0.7 AST 39 H D ALT 40 H Alkaline Phosphatase 365 H D B-Natriuretic Peptide Total Protein 7.7 Albumin 3.7 Lipase 18 Procalcitonin Beta HCG, Quant < 2 Acetone, Qual Negative COVID-19 (CHRISTINE) COVID-19 Clin Com 06/02/21 06/02/21 06/02/21 04:51 04:51 04:51 MCV MCH MCHC RDW Plt Count MPV Immature Gran % (Auto) Neut % (Auto) Lymph % (Auto) [place] % (Auto) Eos % (Auto) Baso % (Auto) Lymph # (Auto) [place] # (Auto) Eos # (Auto) Baso # (Auto) Abs Immat Gran (auto) Absolute Neuts (auto) Absolute Nucleated RBC Nucleated RBC % (auto) Anion Gap Estim Creat Clear Calc Estimated GFR POC Glucose Random Glucose Lactic Acid 0.9 Calcium Magnesium Total Bilirubin AST ALT Alkaline Phosphatase B-Natriuretic Peptide 2957 H Total Protein Albumin Lipase Procalcitonin 1.48 Beta HCG, Quant Acetone, Qual COVID-19 (CHRISTINE) COVID-19 Clin Com 06/02/21 06/02/21 05:40 07:04 MCV MCH MCHC RDW Plt Count MPV Immature Gran % (Auto) Neut % (Auto) Lymph % (Auto) [place] % (Auto) Eos % (Auto) Baso % (Auto) Lymph # (Auto) [place] # (Auto) Eos # (Auto) Baso # (Auto) Abs Immat Gran (auto) Absolute Neuts (auto) Absolute Nucleated RBC Nucleated RBC % (auto) Anion Gap Estim Creat Clear Calc Estimated GFR POC Glucose 210 H Random Glucose Lactic Acid Calcium Magnesium Total Bilirubin AST ALT Alkaline Phosphatase B-Natriuretic Peptide Total Protein Albumin Lipase Procalcitonin Beta HCG, Quant Acetone, Qual COVID-19 (CHRISTINE) Negative COVID-19 Clin Com See Note Imaging Radiologist's Impressions: Impressions Chest X-Ray 06/02/21 05:02 FINDINGS/IMPRESSION: Following venous congestion and mild interstitial edema. Small right pleural effusion and accompanying atelectasis. No pleural effusion on the left. No pneumothorax. No acute osseous abnormalities. Assessment and Plan (1) Hypoglycemia: Status: Acute (2) Pneumonia: Status: Acute Plan This is a 30 yo F with a PMH of Type 1 DM, ESRD on HD MWF (since age 11), HTN, Epilepsy on Keppra who presents to the ED after a hypoglycemic episode this morning. Her blood work and imaging studies indicate a possible infectious etiology. She will be admitted for further work up. 1. Hypoglycemia secondary to uncontrolled DM type 1 Hold long acting insulin POC QIDAC, use sliding scale Possibly related to acute infection as no changes in her insulin regime or diet reported 2. Possible Pneumonia She was being treated as an outpatient for this per history; Chest imaging shows an effusion, but no dense consolidation; However, the procalcitonin is elevated and she does have leukocytosis with bandemia. Will Check CT chest Cover with IV rocephin and doxycycline follow up cultures no evidence of sepsis at this time - her SCr is related to ESRD and not severe sepsis 3. Uncontrolled HTN reports compliance with all meds minus Noravsc which she ran out ago several days ago. resume baseline meds, if remains uncontrolled on these, will need further titration 4. Seizure disorder keppra 5. ESRD on HD MWF -- nephrology consulted continue baseline meds Full Code DVT pptx, subcut. Heparin Given her immune compromised status with ESRD/Type 1 DM with suspected pneumonia/infection + brittle DM, I anticipate 2 midnights in the hospital to treat and monitor response. Quality Stroke Does the patient have a stroke diagnosis?: No VTE Prior VTE?: No VTE Risk Level:: Medical - moderate - high VTE Device Contraindication: Treatment Not Indicated VTE Drug Contraindication: N/A - Med Ordered
[2021-06-02] MEDS: Losartan Potassium 50 MG TABLET 100 MG PO ×2 (12:01→21:38)
[2021-06-02] MEDS: Doxycycline Hyclate 100 MG in 0.9 % Sodium Chloride 250 ML 166.67 MG IV ×2 (12:01→22:58)
[2021-06-02] MEDS: carvediloL 12.5 MG TABLET 37.5 MG PO ×2 (12:01→21:39)
--- NOTE | 2021-06-02 12:21 | PC.NURSE ---
this nurse took over for bull RN, patient a&ox3, pt c/o itchiness-and requested benadryl which she takes at home and at dialysis, paged dr. cortez requesting order for patient, pt has lt av fistula + bruit/thrill, pt medicatd per order, iv antibiotics given per order, will continue to monitor.
[2021-06-02 13:02] LABS: Glucose, Whole Blood 149 mg/dL (60-115)
[2021-06-02] MEDS: Acetaminophen 325 MG TABLET 650 MG PO ×2 (13:59→19:27)
--- NOTE | 2021-06-02 14:05 | PC.NURSE ---
patient refused heparin, patient also refused po benadryl tablets and asked for the provider to order liquid po or ivp because tablets dont work for her. umang texted dr. cortez will continue to monitor.
[2021-06-02] MEDS: diphenhydrAMINE HCL 50 MG/ML VIAL 25 MG IVPUSH ×2 (15:13→21:36)
--- NOTE | 2021-06-02 15:19 | P.CONNP_ITS ---
History of Present Illness Reason for Consult Consult date: 06/02/21 Reason for consult: ESRD Chief Complaint Chief complaint: hypoglycemia, suspected pneumonia History of Present Illness Narrative: 30 yr old woman with ESRD on HD MWF Well dialyzed Admitted with an episode of hypoglycemia Last dialysis was yesterday ( sunday) Review of Systems Review of Systems negative except HPI PMFSH Past Medical History Medical History Diabetes type 1, uncontrolled Diabetic polyneuropathy associated with type 1 diabetes mellitus Dyslipidemia ESRD (end stage renal disease) Hypertension Hypoglycemia due to type 1 diabetes mellitus 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 Family History Family History Father Diabetes mellitus Mother Thyroid disease Pre-diabetes HTN (hypertension) Acute depression Arthritis Surgical History Surgical History History of hemodialysis Hx of amputation Hx of section Hx of eye surgery Social History Social History Household Members: Significant Other Housing: Apartment Do you presently have visiting nurse or other home services: No Alcohol intake: never Patient Tobacco Use Status: Never used Tobacco service: No Current occupational status: unemployed Meds Allergies Allergy/AdvReac Type Severity Reaction Status Date / Time icodextrin Allergy Mild Rash Verified 05/04/20 14:21 CLOROXINE Allergy Unknown RASH Uncoded 01/13/20 11:01 Active Medications: Current Medications Acetaminophen (Acetaminophen 325 Mg Tablet) 650 mg PO Q6H PRN PRN Reason: Pain, Mild (Pain Scale 1-3) Last Admin: 06/02/21 13:59 Dose: 650 mg Documented by: Carvedilol (Carvedilol 12.5 Mg Tablet) 37.5 mg PO BID [facility]; Protocol Last Admin: 06/02/21 12:01 Dose: 37.5 mg Documented by: Cinacalcet (Cinacalcet Hcl 30 Mg Tablet) 60 mg PO MOWEFR@0800 [facility] Heparin Sodium (Porcine) (Heparin Sodium,Porcine 5,000 Unit/Ml Vial) 5,000 unit SUBCUT Q8H [facility] Last Admin: 06/02/21 14:00 Dose: Not Given Documented by: Ceftriaxone Sodium 1 gm/ (Sodium Chloride) 50 mls @ 100 mls/hr IV Q12H [facility] Doxycycline Hyclate 100 mg/ (Sodium Chloride) 250 mls @ 166.67 mls/hr IV Q12H [facility] Last Infusion: 06/02/21 13:31 Dose: Infused Documented by: Levetiracetam (Levetiracetam 250 Mg Tablet) 750 mg PO BID [facility] Losartan Potassium (Losartan Potassium 50 Mg Tablet) 100 mg PO BID [facility]; Protocol Last Admin: 06/02/21 12:01 Dose: 100 mg Documented by: Pharmacy Consult (Consult Rx Perform Med Rec) 1 each MISCELLANE ONCE PRN PRN Reason: Consult order Sodium Chloride (0.9 % Sodium Chloride Flush 3 Ml Syringe) 3 ml IVFLUSH QSHIFT [facility] Last Admin: 06/02/21 15:16 Dose: Not Given Documented by: Valacyclovir HCl (Valacycyclovir Hcl 500 Mg Tablet) 500 mg PO DAILY [facility] Home Medications Medication Instructions Recorded Confirmed Last Taken Type levetiracetam 750 mg tablet 750 mg PO BID 01/14/20 06/02/21 04/17/21 History multivitamin (Daily-Alyx) 1 tab PO DAILY 01/14/20 06/02/21 04/17/21 History carvedilol 25 mg tablet 37.5 mg PO BID 04/18/21 06/02/21 04/17/21 History cholecalciferol (vitamin D3) 25 25 mcg PO DAILY 04/18/21 06/02/21 04/17/20 History mcg (1,000 unit) tablet (Vitamin D3) losartan 100 mg tablet 1 tab PO BID 04/18/21 06/02/21 04/17/21 History valacyclovir 500 mg tablet 1 tab PO DAILY 04/18/21 06/02/21 04/17/21 History cinacalcet 60 mg tablet (Sensipar) 60 mg PO MOWEFR@0800 06/02/21 06/02/21 Unknown History ferric citrate 210 mg iron tablet 420 mg PO TIDWM 06/02/21 06/02/21 Unknown History (Auryxia) fluticasone propionate 50 2 spray INTRANASAL DAILY 06/02/21 06/02/21 Unknown History mcg/actuation nasal spray,suspension insulin glargine 100 unit/mL (3 5 unit SUBCUT MOWEFR@0900 06/02/21 06/02/21 Unknown History mL) subcutaneous pen (Lantus Solostar U-100 Insulin) nifedipine 30 mg tablet,extended 30 mg PO DAILY 06/02/21 06/02/21 Unknown History release Physical Exam Vital Signs: Last Vital Signs Temp 95.2 F L 06/02/21 06:18 Pulse 79 06/02/21 13:45 Resp 22 H 06/02/21 13:45 BP 191/98 H 06/02/21 13:45 Pulse Ox 97 06/02/21 13:45 BMI result Body Mass Index 25.4 Const Other: Constitutional - Awake and Alert, No apparent distress Eyes - PERRLA, EOMI Cardiovascular - S1S2, RRR, No edema Respiratory -Dim sounds on the R, otherwise clear lungs Gastrointestinal - NT / ND; +BS; No rebound or guarding - No CVA tenderness Extremities - no calf tenderness bilaterally, no swelling; LUE fistula +thrill/bruit Musculoskeletal - Normal inspection, normal ROM Skin - Warm/Dry Neurological - Alert & oriented x3, No focal deficit Psychological - Appropriate affect Results Lab Results Result Diagrams: 06/03/21 05:43 06/03/21 05:43 Lab results: Chemistry 06/02/21 04:51 Sodium 138 Potassium 3.3 D Carbon Dioxide 29 BUN 36 H Creatinine 6.68 H* Calcium 8.6 D Hematology 06/02/21 04:51 WBC 17.3 H Hgb 11.1 L Plt Count 202 Assessment and Plan (1) Hypoglycemia: Status: Resolved (2) Pneumonia: Status: Acute Plan 30 yo F with a PMH of Type 1 DM, ESRD on HD MWF (since age 11), HTN, Epilepsy on Keppra who presents to the ED after a hypoglycemic episode this morning. Her blood work and imaging studies indicate a possible infectious etiology. She will be admitted for further work up. ESRD HD MWF No s/s of uremia HD via left AVG Uncontrolled HTN reports compliance with all meds minus Noravsc which she ran out ago several days ago. resume baseline meds, Remove fluid with HD and reassess Mild Anemia no need for Epogen today Procedures Date of Service Date of Service: 06/02/21
--- NOTE | 2021-06-02 15:51 | PC.NURSE ---
Pt received from main ER: Pt AOX4 and offers no complaints at this time. Heart sounds normal and lungs clear. R AV fistula noted to upper arm + bruit and +thrill Pt abd soft and non-tender. Pt appears to be slightly anxious with intermittent leg shaking.
--- NOTE | 2021-06-02 16:01 | PC.NURSE ---
Md Clark made aware of recently taken vitals: BP 196/98 and HR 81. New orders received for procardia and carrried out. Pt denies any current complaints. RN will continue to monitor.
[2021-06-02] MEDS: NIFEdipine ER 60 MG TAB.ER.24 PO (16:19)
[2021-06-02] MEDS: hydrALAZINE HCl 20 MG/ML VIAL 5 MG IVPUSH (17:42)
--- NOTE | 2021-06-02 17:42 | PC.NURSE ---
MD Clark made aware of repeat vitals: BP 207/96, HR 80- pt remains asymptomatic. Orders received for IVP hydralazine 5mg PRN. Orders carried out. RN will continue to monitor. Pt ambulatory to BR with steady gait.
[2021-06-02 18:08] LABS: Glucose, Whole Blood 330 mg/dL (60-115)
--- NOTE | 2021-06-02 18:21 | PC.NURSE ---
MD Clark made aware of vitals reassessment post hydralazine IVP: BP 212/101,HR 81- pt remains asymptomatic. No new orders received. RN cameron continue to monitor. also made aware of B/S 330. Order received for insulin sliding scale.
[2021-06-02] MEDS: Insulin Lispro 100 UNIT/ML 3 ML VIAL SUBCUT ×2 (18:27→21:38)
--- NOTE | 2021-06-02 19:01 | PC.NURSE ---
Assumed care of pt at 1900. Pt resting in bed, in NAD, respirations even and non-labored. Awaiting inpatient bed assignment
--- NOTE | 2021-06-02 20:39 | PC.NURSE ---
Report called to inpt RN. Pt to floor via wc in stable condition w/ all belongings
[2021-06-02 21:24] LABS: Glucose, Whole Blood 227 mg/dL (60-115)
[2021-06-02] MEDS: levETIRAcetam 250 MG TABLET 750 MG PO (21:39)
[2021-06-02] MEDS: 0.9 % Sodium Chloride Flush 3 ML SYRINGE IVFLUSH ×2 (21:41→22:57)
[2021-06-02 23:41] LABS: Glucose, Whole Blood 28 mg/dL (60-115)
[2021-06-02 23:55] LABS: Glucose, Whole Blood 36 mg/dL (60-115)
[2021-06-03] MEDS: Dextrose 50 % 25 GM/50 ML SYRINGE IVPUSH (00:06)
--- NOTE | 2021-06-03 00:16 | MHC.PIE ---
p; pt c/o feeling hot and wants poc checked. poc at 2333 28. pt alert and awake. oj x2 and pudding given. i; dr gama notified. new order dextrose 50 25mg iv prn, dextrose 50 po prn. p; poc at 2351 36. ojx2 given, pudding given. i; notified; given dextrose now. e; 0020 poc 154. will cont to monitor
[2021-06-03 00:25] LABS: Glucose, Whole Blood 154 mg/dL (60-115)
[2021-06-03 01:35] LABS: Glucose, Whole Blood 110 mg/dL (60-115)
[2021-06-03 03:04] LABS: Glucose, Whole Blood 103 mg/dL (60-115)
[2021-06-03 04:00] VITALS: BP 115/65; PULSE 72; RESP 16; TEMP 36.6; O2SAT 96
[2021-06-03] MEDS: cefTRIAXone sodium 1 GM in 0.9 % Sodium Chloride 50 ML IV ×2 (05:05→18:27)
[2021-06-03 05:06] LABS: Glucose, Whole Blood 183 mg/dL (60-115)
[2021-06-03 06:11] LABS: Hematocrit 29.3 % (37.0-47.0); Mean Corpuscular HGB Conc 34.1 g/dl (31.0-35.0); Mean Corpuscular Volume 90.7 fL (80.0-98.0); Mean Platelet Volume 12.1 fL (9.4-12.3); Platelet Count 199 X10*3/uL (160-400); Red Blood Count 3.23 X10*6/uL (4.20-5.50); Red Cell Distribution Width 13.7 % (11.0-16.0)
[2021-06-03 06:36] LABS: Anion Gap 22 (12-20); Blood Urea Nitrogen 55 mg/dL (9-16); Calcium 8.3 mg/dL (8.4-10.2); Carbon Dioxide 24 mmol/L (22-29); Chloride 93 mmol/L (96-108); Creatinine Clr Calc Pharmacy 8.2; Estimated Glomerular Filt Rate 6; Glucose Random 197 mg/dL (60-115); Potassium 4.6 mmol/L (3.3-5.1); Sodium 134 mmol/L (135-145)
[2021-06-03] MEDS: diphenhydrAMINE HCL 50 MG/ML VIAL 25 MG IVPUSH ×3 (06:38→21:13)
[2021-06-03 06:41] LABS: Glucose, Whole Blood 238 mg/dL (60-115)
[2021-06-03 07:17] VITALS: BP 118/70; PULSE 74; RESP 16; TEMP 36.1; O2SAT 96
[2021-06-03 08:01] LABS: Glucose, Whole Blood 254 mg/dL (60-115)
[2021-06-03] MEDS: 0.9 % Sodium Chloride Flush 3 ML SYRINGE IVFLUSH ×3 (08:04→21:06)
[2021-06-03] MEDS: Insulin Lispro 100 UNIT/ML 3 ML VIAL SUBCUT ×3 (08:04→21:05)
[2021-06-03] MEDS: levETIRAcetam 250 MG TABLET 750 MG PO ×2 (08:04→21:05)
[2021-06-03] MEDS: Losartan Potassium 50 MG TABLET 100 MG PO ×2 (08:05→21:05)
[2021-06-03] MEDS: NIFEdipine ER 60 MG TAB.ER.24 PO (08:05)
[2021-06-03] MEDS: carvediloL 12.5 MG TABLET 37.5 MG PO ×2 (08:05→21:05)
[2021-06-03 11:33] LABS: Glucose, Whole Blood 130 mg/dL (60-115)
[2021-06-03] MEDS: Cinacalcet HCl 30 MG TABLET 60 MG PO (12:28)
[2021-06-03] MEDS: Doxycycline Hyclate 100 MG in 0.9 % Sodium Chloride 250 ML 166.67 MG IV ×2 (12:57→23:28)
--- NOTE | 2021-06-03 13:00 | P.PNIM_ITS ---
Subjective Subjective Date of Service: 06/03/21 Interval History: seen and examined this morning reported orthopnea overnight had HD this am, still with some sob, dry cough denies fever, chills Review of Systems Review of Systems: Yes all other systems are reviewed and are negative Constitutional Constitutional: Denies chills and Denies fatigue Cardiovascular Cardiovascular: Denies chest pain and Reports dyspnea Respiratory Respiratory: Reports cough and Reports dyspnea Endocrine Endocrine: Denies fatigue Physical Exam Vital Signs: Vital Signs: Last Vital Signs Temp 96.9 F 06/03/21 07:17 Pulse 74 06/03/21 07:17 Resp 16 06/03/21 07:17 BP 118/70 06/03/21 07:17 Pulse Ox 96 06/03/21 07:17 BMI result Body Mass Index 26.6 Const: General: cooperative, comfortable, alert and awake Nutritional Appearance: average body habitus Eyes: Pupils: Equal, round and reactive pupils present Resp: Effort & Inspection: normal respiratory effort and able to speak in complete sentences Auscultation: clear to auscultation bilaterally Cardio: Rate: regular rate Heart sounds: S1 normal heart sound present and S2 normal heart sound present GI: Inspection: No distended Palpation (GI): Soft to palpation and nontender Neuro: Cranial nerves: Yes Equal, round and reactive pupils present Extrem: Other: no leg edema Objective Data Active Medications Acetaminophen (Acetaminophen 325 Mg Tablet) 650 mg PO Q6H PRN PRN Reason: Pain, Mild (Pain Scale 1-3) Last Admin: 06/02/21 19:27 Dose: 650 mg Documented by: ALEXANDR Carvedilol (Carvedilol 12.5 Mg Tablet) 37.5 mg PO BID [facility]; Protocol Last Admin: 06/03/21 08:05 Dose: 37.5 mg Documented by: MARYCRUZ Cinacalcet (Cinacalcet Hcl 30 Mg Tablet) 60 mg PO MOWEFR@0800 [facility] Last Admin: 06/03/21 12:28 Dose: 60 mg Documented by: MARYCRUZ Dextrose (Dextrose 50 % 25 Gm/50 Ml Syringe) 25 gm IVPUSH Q15M PRN; Protocol PRN Reason: per Hypoglycemia Standing Ord. Last Admin: 06/03/21 00:06 Dose: 25 gm Documented by: JHOAN Comments: overide per md request Glucose (Glucose Gel 15 Gm Gel..Gram.) 15 gm PO Q15M PRN; Protocol PRN Reason: per Hypoglycemia Standing Ord. Heparin Sodium (Porcine) (Heparin Sodium,Porcine 5,000 Unit/Ml Vial) 5,000 unit SUBCUT Q8H [facility] Last Admin: 06/03/21 12:44 Dose: Not Given Documented by: MARYCRUZ Non-Admin Reason: Patient Refused Hydralazine HCl (Hydralazine Hcl 20 Mg/Ml Vial) 5 mg IVPUSH Q6H PRN; Protocol PRN Reason: SBP>200 Last Admin: 06/02/21 17:42 Dose: 5 mg Documented by: TONO-MALANKUR Ceftriaxone Sodium 1 gm/ (Sodium Chloride) 50 mls @ 100 mls/hr IV Q12H [facility] Last Infusion: 06/03/21 05:37 Dose: 0 mls/hr Documented by: JHOAN Doxycycline Hyclate 100 mg/ (Sodium Chloride) 250 mls @ 166.67 mls/hr IV Q12H [facility] Last Infusion: 06/03/21 00:31 Dose: 0 mls/hr Documented by: JHOAN Insulin Human Lispro (Insulin Lispro 100 Unit/Ml 3 Ml Vial) 0 unit SUBCUT QIDACHS [facility]; Protocol Last Admin: 06/03/21 11:41 Dose: Not Given Documented by: MARYCRUZ Non-Admin Reason: No Insulin Coverage Levetiracetam (Levetiracetam 250 Mg Tablet) 750 mg PO BID [facility] Last Admin: 06/03/21 08:04 Dose: 750 mg Documented by: COTEMA Losartan Potassium (Losartan Potassium 50 Mg Tablet) 100 mg PO BID [facility]; Protocol Last Admin: 06/03/21 08:05 Dose: 100 mg Documented by: MEGAEMA Nifedipine (Nifedipine Er 60 Mg Tab.Er.24) 60 mg PO DAILY [facility]; Protocol Last Admin: 06/03/21 08:05 Dose: 60 mg Documented by: MARYCRUZ Pharmacy Consult (Consult Rx Perform Med Rec) 1 each MISCELLANE ONCE PRN PRN Reason: Consult order Sodium Chloride (0.9 % Sodium Chloride Flush 3 Ml Syringe) 3 ml IVFLUSH QSHIFT [facility] Last Admin: 06/03/21 08:04 Dose: 3 ml Documented by: COTEMA Valacyclovir HCl (Valacycyclovir Hcl 500 Mg Tablet) 500 mg PO DAILY [facility] Last Admin: 06/03/21 08:05 Dose: 500 mg Documented by: MARYCRUZ Labs CBC & Chem 7: 06/03/21 05:43 06/03/21 05:43 Labs: Laboratory Results - last 24 hr 06/02/21 06/02/21 06/02/21 12:57 18:05 21:16 MCV MCH MCHC RDW Plt Count MPV Absolute Nucleated RBC Nucleated RBC % (auto) Anion Gap Estim Creat Clear Calc Estimated GFR POC Glucose 149 H 330 H 227 H Random Glucose Calcium 06/02/21 06/02/21 06/03/21 23:33 23:51 00:20 MCV MCH MCHC RDW Plt Count MPV Absolute Nucleated RBC Nucleated RBC % (auto) Anion Gap Estim Creat Clear Calc Estimated GFR POC Glucose 28 L* 36 L* 154 H Random Glucose Calcium 06/03/21 06/03/21 06/03/21 01:30 02:59 05:02 MCV MCH MCHC RDW Plt Count MPV Absolute Nucleated RBC Nucleated RBC % (auto) Anion Gap Estim Creat Clear Calc Estimated GFR POC Glucose 110 103 183 H Random Glucose Calcium 06/03/21 06/03/21 06/03/21 05:43 05:43 06:36 MCV 90.7 MCH 31.0 MCHC 34.1 RDW 13.7 Plt Count 199 MPV 12.1 Absolute Nucleated RBC 0.000 Nucleated RBC % (auto) 0.0 Anion Gap 22 H Estim Creat Clear Calc 8.2 Estimated GFR 6 POC Glucose 238 H Random Glucose 197 H Calcium 8.3 L 06/03/21 06/03/21 07:19 11:29 MCV MCH MCHC RDW Plt Count MPV Absolute Nucleated RBC Nucleated RBC % (auto) Anion Gap Estim Creat Clear Calc Estimated GFR POC Glucose 254 H 130 H Random Glucose Calcium Microbiology Microbiology Results: Microbiology 06/02/21 04:52 Blood Culture - Preliminary Blood - Venous No growth after 24 hours. 06/02/21 04:51 Blood Culture - Preliminary Blood - Venous No growth after 24 hours. Assessment and Plan (1) Hypoglycemia: Status: Acute Plan This is a 30 yo F with a PMH of Type 1 DM, ESRD on HD MWF (since age 11), HTN, Epilepsy on Keppra who presents to the ED after a hypoglycemic episode this morning. Her blood work and imaging studies indicate a possible infectious etiology. She will be admitted for further work up. Hypoglycemia secondary to uncontrolled DM type 1 Hold long acting insulin POC QIDAC, use sliding scale Possibly related to acute infection as no changes in her insulin regime or diet reported Possible Pneumonia She was being treated as an outpatient for this per history; Chest imaging shows an effusion, but no dense consolidation; However, the procalcitonin is elevated and she does have leukocytosis with bandemia. Continue IV rocephin and doxycycline; likely d/c with ceftin/doxy for total 5 days blood cultures negative to date no evidence of sepsis at this time - her SCr is related to ESRD and not severe sepsis Uncontrolled HTN BP improved this am reports compliance with all meds minus Noravsc which she ran out ago several d ays ago. resume baseline meds, if remains uncontrolled on these, will need further titration Seizure disorder keppra ESRD on HD MWF -- nephrology consulted continue baseline meds Full Code DVT pptx, subcut. Heparin Attending: dr. cortez Quality Stroke Does the patient have a stroke diagnosis?: No VTE Prior VTE?: No VTE Risk Level:: Medical - moderate - high VTE Device Contraindication: Treatment Not Indicated VTE Drug Contraindication: N/A - Med Ordered
--- NOTE | 2021-06-03 14:15 | MHC.CM.PN ---
NURSE SHALE MINER NOTE ELECTRONIC MEDICAL RECORD REVIEWED ALONG WITH CASE DISUCSSED WITH STAFF NURSE , MET WITH PATIENT SHE LIVES WITH HER SIGNIFICANT OTHER SHE HAS A LITTLE GIRL AGE 6YRS BEING CARED FOR BY HER FATHER WHILE MOM IS HOSPITLAZED , EDDI IS ACTIVE , UUINDEPENDENT IN [facility] D[facility] AND MOBILITY , DRIVES A CARE , SHE IS NOT WORKING , SHE HAS HAD DIABETES SINCE THE AGE OF 11 YEARS , AND IS FOLLOWED BY THE [facility] M BELÉN DUNNSO IDS FOLLOWED BY [facility] [address] [place] [address] , SHE HAS NO VNA NO DME SERVICES IN THE HOME, EDUCATED ABOUT THE IMPORTANCE OF HAVING A HCP , HAS HAD THE COVID MODERNA X2 VACINATIONS DISCHARGE PLAN HOME NO ADDITIONAL SERVICES CITIZEN OF [place] [employer] ([facility]) [facility] FOR HER HEMODIALYSIS SCHEDULE PATIENT REPORTS FOR 8AM SHE DRIVES HERSELF THERE OR CAN TAKE THE PT-[facility] TRANSPORTATION IF NEEDED PCP DR BUCHANAN AT THE [facility]
--- NOTE | 2021-06-03 14:39 | PM.PNNEP ---
Subjective Subjective Date of Service: 06/03/21 Interval history: seen and examined no complaints Physical Exam Vital Signs: Vital Signs: Last Vital Signs Temp 96.9 F 06/03/21 07:17 Pulse 74 06/03/21 07:17 Resp 16 06/03/21 07:17 BP 118/70 06/03/21 07:17 Pulse Ox 96 06/03/21 07:17 BMI result Body Mass Index 26.6 Const: General: no acute distress HENMT: Head: Yes normocephalic and Yes atraumatic Neck: Neck: Yes supple Resp: Auscultation: diminished lung sounds Cardio: Heart sounds: S1 normal heart sound present and S2 normal heart sound present GI: Palpation (GI): Soft to palpation and nontender Psych: Appearance: grossly normal Objective Data Labs CBC & Chem 7: 06/03/21 05:43 06/03/21 05:43 Labs: Laboratory Results - last 24 hr 06/02/21 06/02/21 06/02/21 18:05 21:16 23:33 WBC RBC Hgb Hct MCV MCH MCHC RDW Plt Count MPV Absolute Nucleated RBC Nucleated RBC % (auto) Sodium Potassium Chloride Carbon Dioxide Anion Gap BUN Creatinine Estim Creat Clear Calc Estimated GFR POC Glucose 330 H 227 H 28 L* Random Glucose Calcium 06/02/21 06/03/21 06/03/21 23:51 00:20 01:30 WBC RBC Hgb Hct MCV MCH MCHC RDW Plt Count MPV Absolute Nucleated RBC Nucleated RBC % (auto) Sodium Potassium Chloride Carbon Dioxide Anion Gap BUN Creatinine Estim Creat Clear Calc Estimated GFR POC Glucose 36 L* 154 H 110 Random Glucose Calcium 06/03/21 06/03/21 06/03/21 02:59 05:02 05:43 WBC 9.0 RBC 3.23 L Hgb 10.0 L Hct 29.3 L MCV 90.7 MCH 31.0 MCHC 34.1 RDW 13.7 Plt Count 199 MPV 12.1 Absolute Nucleated RBC 0.000 Nucleated RBC % (auto) 0.0 Sodium Potassium Chloride Carbon Dioxide Anion Gap BUN Creatinine Estim Creat Clear Calc Estimated GFR POC Glucose 103 183 H Random Glucose Calcium 06/03/21 06/03/21 06/03/21 05:43 06:36 07:19 WBC RBC Hgb Hct MCV MCH MCHC RDW Plt Count MPV Absolute Nucleated RBC Nucleated RBC % (auto) Sodium 134 L Potassium 4.6 D Chloride 93 L Carbon Dioxide 24 Anion Gap 22 H BUN 55 H D Creatinine 8.55 H* Estim Creat Clear Calc 8.2 Estimated GFR 6 POC Glucose 238 H 254 H Random Glucose 197 H Calcium 8.3 L 06/03/21 11:29 WBC RBC Hgb Hct MCV MCH MCHC RDW Plt Count MPV Absolute Nucleated RBC Nucleated RBC % (auto) Sodium Potassium Chloride Carbon Dioxide Anion Gap BUN Creatinine Estim Creat Clear Calc Estimated GFR POC Glucose 130 H Random Glucose Calcium Microbiology Microbiology Results: Microbiology 06/02/21 04:52 Blood - Venous Blood Culture - Preliminary No growth after 24 hours. 06/02/21 04:51 Blood - Venous Blood Culture - Preliminary No growth after 24 hours. Procedures Date of Service Date of Service: 06/03/21 Assessment & Plan Assessment and plan (1) ESRD (end stage renal disease): Status: Acute (2) Pneumonia: Status: Acute (3) HTN (hypertension): Status: Acute (4) Anemia: Status: Acute Plan HD today optimize volume status Abx per primary team renal diet phosphate binders AMY per protocol Time Spent With Patient Time: Total time spent is greater than 50% in coordination of care (as documented) at patient's floor/unit and/or counseling patient: Progress Note: Quality Stroke Does the patient have a stroke diagnosis?: No
[2021-06-03 15:40] VITALS: BP 140/80; PULSE 73; RESP 18; TEMP 36.4; O2SAT 96
[2021-06-03 16:40] LABS: Glucose, Whole Blood 294 mg/dL (60-115)
[2021-06-03 19:10] VITALS: BP 160/96; PULSE 80; RESP 18; TEMP 36.6; O2SAT 97
[2021-06-03] MEDS: Acetaminophen 325 MG TABLET 650 MG PO (19:31)
[2021-06-03 20:07] LABS: Glucose, Whole Blood 253 mg/dL (60-115)
[2021-06-04] VITALS: BP 132/75; PULSE 75; RESP 16; TEMP 36.8; O2SAT 95
[2021-06-04 04:00] VITALS: BP 129/69; PULSE 72; RESP 16; TEMP 36.1; O2SAT 97
[2021-06-04] MEDS: cefTRIAXone sodium 1 GM in 0.9 % Sodium Chloride 50 ML IV (06:27)
[2021-06-04 07:51] VITALS: BP 144/78; PULSE 74; RESP 18; TEMP 36.2; O2SAT 96
[2021-06-04 08:03] LABS: Glucose, Whole Blood 270 mg/dL (60-115)
[2021-06-04] MEDS: Insulin Lispro 100 UNIT/ML 3 ML VIAL SUBCUT (08:29)
[2021-06-04] MEDS: levETIRAcetam 250 MG TABLET 750 MG PO (08:29)
[2021-06-04] MEDS: 0.9 % Sodium Chloride Flush 3 ML SYRINGE IVFLUSH (08:30)
[2021-06-04] MEDS: Losartan Potassium 50 MG TABLET 100 MG PO (08:30)
[2021-06-04] MEDS: carvediloL 12.5 MG TABLET 37.5 MG PO (08:30)
[2021-06-04] MEDS: NIFEdipine ER 60 MG TAB.ER.24 PO (08:30)
[2021-06-04] MEDS: diphenhydrAMINE HCL 50 MG/ML VIAL 25 MG IVPUSH (08:36)
--- NOTE | 2021-06-04 11:16 | PM.DS ---
DS: Providers Provider Date of Service: 06/04/21 <Mahsa Zabala NP - Last Filed: 06/04/21 11:28> Date of admission: 06/02/21 11:13 <Mahsa Zabala NP - Last Filed: 06/04/21 11:28> Primary care physician: Unknown Physician <Mahsa Zabala NP - Last Filed: 06/04/21 11:28> Consults: 06/02/21 10:13 Consult to Nephrology Routine Consulting Provider: Bc Posada Reason for consultation: ESRD <Mahsa Zabala NP - Last Filed: 06/04/21 11:28> Attending physician on discharge: Mushtaq Garber <Mahsa Zabala NP - Last Filed: 06/04/21 11:28> Discharging clinician: Mahsa Zabala <Mahsa Zabala NP - Last Filed: 06/04/21 11:28> DS: Diagnosis Discharge Diagnosis (1) Hypoglycemia: Status: Acute <Mahsa Zabala NP - Last Filed: 06/04/21 11:28> (2) Pneumonia: Status: Acute <Mahsa Zabala NP - Last Filed: 06/04/21 11:28> (3) ESRD (end stage renal disease): Status: Acute <Mahsa Zabala NP - Last Filed: 06/04/21 11:28> DS: Summary Hospital Course Hospital Course: HP as per admitting provider This is a 30 yo F with a PMH of Type 1 DM, ESRD on HD MWF (since age 11), HTN, Epilepsy on Keppra who presents to the ED after a hypoglycemic episode this morning. Patient reports that her significant other attempted to wake her this morning but she was lethargic and has no recollection of the events. Paramdics were called and her sugars were around 60,. she was given dextrose/glucose and brought to the ED. She reports that she take 5 units of lantus on dilaysis days and 10 on non-dialysis days. She reports that she ate a normal meal at dinner time the evening prior. Upon further questiong, she reports that she has had a cough for the last 7-10 days, non-productive with no fevers or chills. She further endorses that she is being treated for a pnumonia and has been complaint with her antibiotics (Augmetin) as prescribed. She reports orthopnea symptoms and some exertional dyspnea. Upon arrival to the ED, she was noted to have Leukocytosis with a left shift (17 k, 14 bands). Her procalcitonin is elevated at 1.48. Her CXR shows mild venous congestion and mild interstitial edema. There is a small R pleural effusion with accomapnying atelectasis. She has had cultures drawn, given IV rocephin and admissions is requested . Hypoglycemia secondary to uncontrolled DM type, Long acting insulin held with good effect. Sliding scale continued. Likely secondary to acute infection. CAP. Treated with Rocephin and Doxycycline. Blood cultures negative. Continue Ceftin and doxycycline for 4 more days. Uncontrolled HTN/ BP improved. Recume baseline medication. ESRD on HD MWF -- nephrology consulted. continue baseline meds <Mahsa Zabala NP - Last Filed: 06/04/21 11:28> Time Spent with Patient Time attestation: Total time spent providing and/or coordinating discharge services: <Mahsa Zabala NP - Last Filed: 06/04/21 11:28> Discharge coordination time: Greater than 30 minutes <Mahsa Zabala NP - Last Filed: 06/04/21 11:28> Quality: Stroke Does the patient have a stroke diagnosis?: No <Mahsa Zabala NP - Last Filed: 06/04/21 11:28> Physical Exam Vital Signs: Vital Signs: Last Vital Signs Temp 97.2 F 06/04/21 07:51 Pulse 74 06/04/21 07:51 Resp 18 06/04/21 07:51 BP 144/78 H 06/04/21 07:51 Pulse Ox 96 06/04/21 07:51 BMI result Body Mass Index 26.6 <Mahsa Zabala NP - Last Filed: 06/04/21 11:28> Appearing in no acute distress head is normocephalic atraumatic eyes pupils are PERRLA sclera is anicteric mouth throat mucous membranes are intact and moist neck is supple no lymphadenopathy, no JVD noted lung sounds are clear to auscultation heart regular rate rhythm, clear S1, S2 positive bowel sounds, abdomen is soft, nontender neuro patient is alert x3, no focal deficits <Mahsa Zabala NP - Last Filed: 06/04/21 11:28> DS: Data Data Completed and Pending Completed studies during hospitalization [Text1]: Procedures Performance of Urinary Filtration, Intermittent, Less than 6 Hours Per Day (04/18/21) <Mahsa Zabala NP - Last Filed: 06/04/21 11:28> Labs on day of discharge: Laboratory Results - last 24 hr 06/03/21 06/03/21 06/03/21 11:29 16:37 20:03 POC Glucose 130 H 294 H 253 H 06/04/21 07:53 POC Glucose 270 H Preliminary micro results at discharge 06/02/21 04:52 Blood Culture - Preliminary Blood - Venous No growth after 48 hours. 06/02/21 04:51 Blood Culture - Preliminary Blood - Venous No growth after 48 hours. <Mahsa Zabala NP - Last Filed: 06/04/21 11:28> Discharge Plan Discharge Anticipated Discharge Date/Time: 06/04/21 11:05 <Mahsa Zabala NP - Last Filed: 06/04/21 11:28> Patient Disposition: Home, Self-Care <Mahsa Zabala NP - Last Filed: 06/04/21 11:28> Discharge Diagnosis: Hypoglycemia CAP <Mahsa Zabala NP - Last Filed: 06/04/21 11:28> Referrals: [facility] [Other] - 1 Week (patient to self resume her hemodialysis schedule at [facility] hem dialysis tino Bai she reports she goes at 8am pcp [facility] ?DR ISIDRO , INSTRUCTED TO CALL FOR [facility] DISCHARGE FOLLOW UP TRANSPORTATION FAMILY ) <Mahsa Zabala NP - Last Filed: 06/04/21 11:28> Discharge Medications: New doxycycline hyclate 100 mg tablet 100 mg PO BID Qty: 8 0RF cefuroxime axetil 500 mg tablet 500 mg PO Q12H Qty: 8 0RF Continued multivitamin [Daily-Alyx] Tablet 1 tab PO DAILY 0RF levetiracetam 750 mg Tablet 750 mg PO BID 0RF Auryxia 210 mg iron Tablet 420 mg PO TIDWM 0RF Label Comments: PATIENT RECEIVED A SAMPLE FROM DIALYSIS Rx Instructions: administer with a meal nifedipine 30 mg Tablet Extended Release 30 mg PO DAILY 0RF fluticasone propionate 50 mcg/actuation [place],Suspension 2 spray INTRANASAL DAILY 0RF Rx Instructions: administer into each nostril cinacalcet [Sensipar] 60 mg Tablet 60 mg PO MOWEFR@0800 0RF Rx Instructions: PATIENT GETS THIS ON DIALYSIS DAYS ONLY Lantus Solostar U-100 Insulin 100 unit/mL (3 mL) Insulin Pen 5 unit SUBCUT MOWEFR@0900 0RF valacyclovir 500 mg tablet 1 tab PO DAILY 0RF losartan 100 mg tablet 1 tab PO BID 0RF carvedilol 25 mg tablet 37.5 mg PO BID 0RF cholecalciferol (vitamin D3) [Vitamin D3] 25 mcg (1,000 unit) Tablet 25 mcg PO DAILY 0RF (DME) FreeStyle Lola 2 Sensor Kit See Rx Instructions .ROUTE .MEDSUPPLY Qty: 2 12RF Rx Instructions: Every 14 days (DME) FreeStyle Lola 2 [place] Misc See Rx Instructions .ROUTE .MEDSUPPLY Qty: 1 0RF Rx Instructions: As directed (DME) FreeStyle Precision Ian Strips Strip See Rx Instructions .ROUTE .MEDSUPPLY Qty: 50 7RF Rx Instructions: once a day for calibration Changed Lantus U-100 Insulin 100 unit/mL solution 5 unit SUBCUT SUTUTHSA@0900 Qty: 0 0RF Discontinued amoxicillin-pot clavulanate [Augmentin] 875-125 mg Tablet 1 tab PO Q12H 0RF Rx Instructions: ORDERED FOR 10 DAY SUPPLY ON May <Mahsa Zabala NP - Last Filed: 06/04/21 11:28> Discharge Orders: Discharge Order (Routine); Ordered 06/04/21 Ordered By: Mahsa Zabala <Mahsa Zabala NP - Last Filed: 06/04/21 11:28> Diet: advance to usual diet <Mahsa Zabala NP - Last Filed: 06/04/21 11:28> Activity on Discharge: As tolerated <Mahsa Zabala NP - Last Filed: 06/04/21 11:28> Stand Alone Forms: Patient Portal Discharge page <Mahsa Zabala NP - Last Filed: 06/04/21 11:28> Care Plan Goals: Follow blood sugars closely to avoid hypoglycemia <CHARLES Johnson Last Filed: 06/04/21 11:28> Health Concerns: Hypoglycemia CAP <Mahsa Zabala NP - Last Filed: 06/04/21 11:28> Plan of Treatment: Continue antibiotics as prescribed follow up with your [employer] for diabetic medication management Sliding scale ? *111 to 150 Give (units):0 ? *151 to 200 Give (units):2 ? *201 to 250 Give (units):4 ? *251 to 300 Give (units):6 ? *301 to 350 Give (units):8 ? *Greater than 350 Give (units):10 <Mahsa Zabala NP - Last Filed: 06/04/21 11:28> Assessment: See discharge summary I personally saw and examined this patient and discussed discharge planning and disposition with FIELD SPEC and I agree with the above. <Mahsa Zabala NP - Last Filed: 06/04/21 11:28>
[2021-06-04 11:32] LABS: Glucose, Whole Blood 190 mg/dL (60-115)
== END 2021-06-04 12:24 | disposition home or self-care (01) | DRG 637 ==
LOC: HO.ED 07:33 → HO.EDOVER 11:24 → HO.S3 19:26
PROVIDERS: Physician Assistant Medical; Admitting Provider Family Medicine; Emergency Provider Student in an Organized Health Care Education/Training Program; PCP Internal Medicine; Visit Provider Nurse Practitioner Acute Care
DX: E10.649 Type 1 diabetes mellitus with hypoglycemia without coma (principal); J18.9 Pneumonia, unspecified organism; I12.0 Hypertensive chronic kidney disease with stage 5 chronic kidney disease or end stage renal disease; N18.6 End stage renal disease; G40.909 Epilepsy, unspecified, not intractable, without status epilepticus; D63.1 Anemia in chronic kidney disease; E10.42 Type 1 diabetes mellitus with diabetic polyneuropathy; E10.22 Type 1 diabetes mellitus with diabetic chronic kidney disease; Z99.2 Dependence on renal dialysis; Z91.19 Patient's noncompliance with other medical treatment and regimen; Z20.822 Contact with and (suspected) exposure to COVID-19; Z79.4 Long term (current) use of insulin; Z79.51 Long term (current) use of inhaled steroids; Z79.899 Other long term (current) drug therapy
CPT/HCPCS: 36415; 71045; 71250; 80048; 80053; 82009; 82947; 83605; 83690; 83735; 83880; 84145; 84702; 85025; 85027; 87040; 87635; 90999; 93005; 96365; 99284; 99285; J0696; J1200; Q0163

== ENCOUNTER 2021-07-25 20:51 | Inpatient (IN) | payer MEDICARE, MEDICAID, SELFPAY ==
--- NOTE | ~2021-07-25 | XR_ITS ---
EXAMINATION: XR CHEST CLINICAL INFORMATION: Altered mental status COMPARISON: CT chest and chest radiograph dated 06/02/2021 TECHNIQUE: Frontal view of the chest was obtained. FINDINGS: The heart appears mildly enlarged a right pleural effusion is present which has increased in size slightly still remains small. A tiny left pleural effusion may be present. There is mild upper zone redistribution and findings may represent CHF with interstitial edema. Similar findings were present previously. No focal consolidations. Incidental note made of bilateral supraspinatus tendon calcification consistent with rotator cuff disease. XR/XR chest 1V IMPRESSION: Small right effusion has increased in size with a tiny left effusion now present. There is still evidence of vascular congestion and mild interstitial edema.
--- NOTE | 2021-07-25 21:08 | ECG_ITS ---
Test Reason : AMS Blood Pressure : / mmHG Vent. Rate : 062 BPM Atrial Rate : 062 BPM P-R Int : 142 ms QRS Dur : 080 ms QT Int : 512 ms P-R-T Axes : 056 028 033 degrees QTc Int : 519 ms Normal sinus rhythm Cannot rule out Anterior infarct (cited on or before 02-JUN-2021) Abnormal ECG When compared with ECG of 02-JUN-2021 04:39, No significant change was found Referred By: Shawn Urrutia Electronically Signed By:Ricardo Nixon
[2021-07-25 21:12] LABS: Glucose, Whole Blood 101 mg/dL (60-115)
--- NOTE | 2021-07-25 21:13 | ED_ITS ---
HPI - Altered Mental Status General Chief Complaint: Altered Mental Status Stated Complaint: AMS Time Seen by Provider: 07/25/21 21:08 Source: patient and EMS Mode of arrival: EMS Limitations: no limitations History of Present Illness HPI narrative: Patient is 30 years old with past medical history of type 1 diabetes, end-stage renal disease on hemodialysis since age 11 hypertension epilepsy came here because of hypoglycemic episode after dialysis. Patient had dialysis today and she went home was found confused lethargic by her daughter who called the EMS EMS came and checked the blood sugar was 20 initially they gave Narcan as the eyes were pinpoint without any response. Patient started on dextrose 10 and became more awake patient takes 5 units of Lantus on dialysis day and 10 units on non dialysis days denies any fever chills cough. Patient was admitted to the hospital for similar presentation in 06/07 level patient was complaining of feeling cold rectal temperature was 93.1 degrees no witnessed seizures per EMS Related Data Home Medications Medication Instructions Recorded Confirmed levetiracetam 750 mg tablet 750 mg PO BID 01/14/20 06/02/21 multivitamin (Daily-Alyx) 1 tab PO DAILY 01/14/20 06/02/21 carvedilol 25 mg tablet 37.5 mg PO BID 04/18/21 06/02/21 cholecalciferol (vitamin D3) 25 25 mcg PO DAILY 04/18/21 06/02/21 mcg (1,000 unit) tablet (Vitamin D3) losartan 100 mg tablet 1 tab PO BID 04/18/21 06/02/21 valacyclovir 500 mg tablet 1 tab PO DAILY 04/18/21 06/02/21 cinacalcet 60 mg tablet (Sensipar) 60 mg PO MOWEFR@0800 06/02/21 06/02/21 ferric citrate 210 mg iron tablet 420 mg PO TIDWM 06/02/21 06/02/21 (Auryxia) fluticasone propionate 50 2 spray INTRANASAL DAILY 06/02/21 06/02/21 mcg/actuation nasal spray,suspension insulin glargine 100 unit/mL (3 5 unit SUBCUT MOWEFR@0900 06/02/21 06/02/21 mL) subcutaneous pen (Lantus Solostar U-100 Insulin) nifedipine 30 mg tablet,extended 30 mg PO DAILY 06/02/21 06/02/21 release Previous Rx's Medication Instructions Recorded blood sugar diagnostic (FreeStyle #50 ea 05/04/20 Precision Ian Strips) flash glucose scanning reader #1 ea 05/04/20 (FreeStyle Lola 2 [place]) flash glucose sensor (FreeStyle #2 ea 05/04/20 Lola 2 Sensor) cefuroxime axetil 500 mg tablet 500 mg PO Q12H #8 tab 06/04/21 doxycycline hyclate 100 mg tablet 100 mg PO BID #8 tab 06/04/21 insulin glargine 100 unit/mL 5 unit (0.05 mL) SUBCUT 06/04/21 subcutaneous solution (Lantus SUTUTHSA@0900 #0 ml U-100 Insulin) Allergies Allergy/AdvReac Type Severity Reaction Status Date / Time icodextrin Allergy Mild Rash Verified 05/04/20 14:21 CLOROXINE Allergy Unknown RASH Uncoded 01/13/20 11:01 Review of Systems Review of Systems: Patient poor historian does not want to share much details says she does not remember what happened Yes all other systems are reviewed and are negative REPLACED BY [facility] Past Medical History Medical History Anemia Diabetes type 1, uncontrolled Diabetic polyneuropathy associated with type 1 diabetes mellitus Dyslipidemia ESRD (end stage renal disease) ESRD (end stage renal disease) ESRD (end stage renal disease) on dialysis HTN (hypertension) Hypertension Hypoglycemia due to type 1 diabetes mellitus 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 Surgical History History of hemodialysis Hx of amputation Hx of section Hx of eye surgery Family History Family History Father Diabetes mellitus Mother Thyroid disease Pre-diabetes HTN (hypertension) Acute depression Arthritis Social History Social History Household Members: Significant Other Housing: Apartment Do you presently have visiting nurse or other home services: No Alcohol intake: never Patient Tobacco Use Status: Never used Tobacco Advance Directives: No Advance Directives Information Provided: No service: No Current occupational status: unemployed Physical Exam ED Vital Signs: Vital Signs - 24 hr 07/25/21 21:14 07/25/21 21:30 07/25/21 23:10 Temperature 97.9 F 93.1 F L Pulse Rate 60 62 66 Respiratory Rate 14 16 14 Blood Pressure 166/80 H 154/87 H 134/68 Pulse Oximetry 98 96 07/25/21 23:57 Temperature 97.4 F Pulse Rate 65 Respiratory Rate 16 Blood Pressure 149/75 H Pulse Oximetry 93 BMI result Body Mass Index 29.1 Appearance: Alert. Oriented X3. No acute distress. Lethargic and sleepy Eyes: PERRLA, ENT: Pharynx normal. Oral Mucosa moist Neck: Normal inspection. Neck supple. CVS: Normal heart rate and rhythm. Pulses normal. Respiratory: No respiratory distress. Equal air entry bilateral, no wheezing/rales/rhonchi Abdomen: Soft and nontender. Bowel sounds are present, no mass palpable, no CVA tenderness Skin: Skin warm and dry. Normal skin color. Normal skin turgor. Extremities: No lower extremity edema. No calf tenderness left arm fistula with bruit++ Neuro: Oriented X 3. No motor deficit. No sensory deficit.No cerebellar signs , cranial nerves II-XII intact MDM - Altered Mental Status MDM Narrative Medical decision making narrative: Patient with hypothermia and hypoglycemia on dialysis etiology not very clear possible bacteremia will admit patient to rule out bacteremia will give IV vancomycin and Rocephin Lab Data Attestation: I reviewed the patient's lab results. Result diagrams: 07/25/21 22:55 07/25/21 22:55 Labs: Lab Results 07/25/21 07/25/21 07/25/21 Range/Units 21:09 22:20 22:54 WBC (4.8-10.8) X10*3/uL RBC (4.20-5.50) X10*6/uL Hgb (12.0-16.0) g/dl Hct (37.0-47.0) % MCV (80.0-98.0) fL MCH (27.0-33.0) pg MCHC (31.0-35.0) g/dl RDW (11.0-16.0) % Plt Count (160-400) X10*3/uL MPV (9.4-12.3) fL Immature Gran % (Auto) (0.0-0.4) % Neut % (Auto) (45-73) % Lymph % (Auto) (20-40) % Jerome % (Auto) (2-11) % Eos % (Auto) (0-4) % Baso % (Auto) (0-2) % Lymph # (Auto) (1.2-4.9) X10*3/uL Jerome # (Auto) (0.1-1.2) X10*3/uL Eos # (Auto) (0.0-0.4) X10*3/uL Baso # (Auto) (0.0-0.2) X10*3/uL Abs Immat Gran (auto) (0.00-0.03) X10*3/uL Absolute Neuts (auto) (2.0-8.3) x10*3/uL Absolute Nucleated RBC (0.0-0.012) X10*3/uL Nucleated RBC % (auto) (0.0-0.2) /100WBC Sodium (135-145) mmol/L Potassium (3.3-5.1) mmol/L Chloride (96-108) mmol/L Carbon Dioxide (22-29) mmol/L Anion Gap (12-20) BUN (9-16) mg/dL Creatinine (0.5-1.4) mg/dL Estim Creat Clear Calc Estimated GFR POC Glucose 101 84 (60-115) mg/dL Random Glucose (60-115) mg/dL Lactic Acid (0.5-2.0) mmol/L Calcium (8.4-10.2) mg/dL Total Bilirubin (0.0-1.0) mg/dL AST (5-31) U/L ALT (0-31) U/L Alkaline Phosphatase (39-117) U/L Total Protein (6.5-8.0) g/dL Albumin (3.5-5.0) g/dL Influenza Type A (PCR) NEGATIVE (Negative) Influenza Type B (PCR) NEGATIVE (Negative) RSV RNA Qual (PCR) NEGATIVE (Negative) SARS-CoV-2 RNA (RT-PCR) NEGATIVE (Negative) 07/25/21 07/25/21 07/25/21 Range/Units 22:55 22:55 22:55 WBC 7.2 (4.8-10.8) X10*3/uL RBC 3.46 L (4.20-5.50) X10*6/uL Hgb 10.9 L (12.0-16.0) g/dl Hct 31.1 L (37.0-47.0) % MCV 89.9 (80.0-98.0) fL MCH 31.5 (27.0-33.0) pg MCHC 35.0 (31.0-35.0) g/dl RDW 13.3 (11.0-16.0) % Plt Count 190 (160-400) X10*3/uL MPV 12.3 (9.4-12.3) fL Immature Gran % (Auto) 0.4 (0.0-0.4) % Neut % (Auto) 80.4 H (45-73) % Lymph % (Auto) 12.6 L (20-40) % Jerome % (Auto) 5.3 (2-11) % Eos % (Auto) 1.0 (0-4) % Baso % (Auto) 0.3 (0-2) % Lymph # (Auto) 0.9 L (1.2-4.9) X10*3/uL Jerome # (Auto) 0.4 (0.1-1.2) X10*3/uL Eos # (Auto) 0.1 (0.0-0.4) X10*3/uL Baso # (Auto) 0.0 (0.0-0.2) X10*3/uL Abs Immat Gran (auto) 0.03 (0.00-0.03) X10*3/uL Absolute Neuts (auto) 5.8 (2.0-8.3) x10*3/uL Absolute Nucleated RBC 0.000 (0.0-0.012) X10*3/uL Nucleated RBC % (auto) 0.0 (0.0-0.2) /100WBC Sodium 139 (135-145) mmol/L Potassium 4.1 (3.3-5.1) mmol/L Chloride 94 L (96-108) mmol/L Carbon Dioxide 29 (22-29) mmol/L Anion Gap 20 (12-20) BUN 33 H (9-16) mg/dL Creatinine 5.64 H* (0.5-1.4) mg/dL Estim Creat Clear Calc 15.3 Estimated GFR 9 POC Glucose (60-115) mg/dL Random Glucose 80 (60-115) mg/dL Lactic Acid 0.8 (0.5-2.0) mmol/L Calcium 8.8 D (8.4-10.2) mg/dL Total Bilirubin 0.6 (0.0-1.0) mg/dL AST 33 H (5-31) U/L ALT 37 H (0-31) U/L Alkaline Phosphatase 463 H D (39-117) U/L Total Protein 7.4 (6.5-8.0) g/dL Albumin 3.6 (3.5-5.0) g/dL Influenza Type A (PCR) (Negative) Influenza Type B (PCR) (Negative) RSV RNA Qual (PCR) (Negative) SARS-CoV-2 RNA (RT-PCR) (Negative) Discharge Plan Discharge Clinical Impression: Hypoglycemia, Hypothermia Patient Disposition: Admitted As Inpatient
[2021-07-25 21:14] VITALS: BP 166/80; PULSE 60; RESP 14; TEMP 36.6; O2SAT 98; BMI 29.1
[2021-07-25 21:30] VITALS: BP 154/87; PULSE 62; RESP 16; TEMP 33.9; O2SAT 96
[2021-07-25 23:01] LABS: Glucose, Whole Blood 84 mg/dL (60-115)
[2021-07-25] MEDS: cefTRIAXone sodium 1 GM in 0.9 % Sodium Chloride 50 ML IV (23:01)
[2021-07-25 23:03] LABS: Basophils Percent Auto 0.3 % (0-2); Eosinophils Absolute Auto 0.1 X10*3/uL (0.0-0.4); Hematocrit 31.1 % (37.0-47.0); Hemoglobin 10.9 g/dl (12.0-16.0); Imm Gran Abs Auto 0.03 X10*3/uL (0.00-0.03); Imm Gran Pct Auto 0.4 % (0.0-0.4); Lymphocytes Absolute Auto 0.9 X10*3/uL (1.2-4.9); Lymphocytes Percent Auto 12.6 % (20-40); MANUAL DIFF FLAG NO; Mean Corpuscular Hemoglobin 31.5 pg (27.0-33.0); Mean Corpuscular Volume 89.9 fL (80.0-98.0); Mean Platelet Volume 12.3 fL (9.4-12.3); Monocytes Absolute Auto 0.4 X10*3/uL (0.1-1.2); Monocytes Percent Auto 5.3 % (2-11); Neutrophils Absolute Auto 5.8 x10*3/uL (2.0-8.3); Neutrophils Percent Auto 80.4 % (45-73); Platelet Count 190 X10*3/uL (160-400); Red Blood Count 3.46 X10*6/uL (4.20-5.50); Red Cell Distribution Width 13.3 % (11.0-16.0); White Blood Count 7.2 X10*3/uL (4.8-10.8)
[2021-07-25] MEDS: vancomycin HCL 1,000 MG in 0.9 % Sodium Chloride 250 ML 270 MG IV (23:04)
[2021-07-25 23:06] LABS: Influenza A PCR NEGATIVE (Negative); Influenza B PCR NEGATIVE (Negative); Resp Syncy Virus RNA Qual PCR NEGATIVE (Negative); SARS COV2 PCR INHOUSE NEGATIVE (Negative)
[2021-07-25 23:10] VITALS: BP 134/68; PULSE 66; RESP 14
[2021-07-25 23:16] LABS: Lactic Acid 0.8 mmol/L (0.5-2.0)
[2021-07-25 23:24] LABS: Alanine Aminotransferase 37 U/L (0-31); Albumin Level 3.6 g/dL (3.5-5.0); Alkaline Phosphatase 463 U/L (39-117); Anion Gap 20 (12-20); Aspartate Amino Transferase 33 U/L (5-31); Bilirubin Total 0.6 mg/dL (0.0-1.0); Blood Urea Nitrogen 33 mg/dL (9-16); Calcium 8.8 mg/dL (8.4-10.2); Carbon Dioxide 29 mmol/L (22-29); Chloride 94 mmol/L (96-108); Creatinine Clr Calc Pharmacy 15.3; Estimated Glomerular Filt Rate 9; Glucose Random 80 mg/dL (60-115); Potassium 4.1 mmol/L (3.3-5.1); Sodium 139 mmol/L (135-145); Total Protein 7.4 g/dL (6.5-8.0)
--- NOTE | 2021-07-25 23:48 | PC.NURSE ---
critical lab reported to RUTH ANN Sanz 5.6
[2021-07-25 23:57] VITALS: BP 149/75; PULSE 65; RESP 16; TEMP 36.3; O2SAT 93
[2021-07-26] VITALS (12 sets, daily range): BP systolic 177–216; BP diastolic 64–106; PULSE 81–86; RESP 10–24; TEMP 36.4–37.1; O2SAT 93–98
--- NOTE | 2021-07-26 | ECG_ITS ---
Test Reason : diabetes Blood Pressure : / mmHG Vent. Rate : 077 BPM Atrial Rate : 077 BPM P-R Int : 152 ms QRS Dur : 076 ms QT Int : 444 ms P-R-T Axes : 057 022 034 degrees QTc Int : 502 ms Normal sinus rhythm Cannot rule out Anterior infarct (cited on or before 02-JUN-2021) Prolonged QT Abnormal ECG When compared with ECG of 25-JUL-2021 21:24, No significant change was found Referred By: Stephan Winters Electronically Signed By:Ricardo Nixon
--- NOTE | 2021-07-26 05:28 | PC.NURSE ---
I assumed nursing care of Natali upon her arrival to bed 18. She arrived for evaluation of unresponsivesness/hypoglycemia. On arrival pt was somnolent but arousable to loud verbal stimuli. her blood sugar on arrival was 101 after EMS found her to have a blood sugar of 20 in the field and administered 500cc of D10 intravenously. Also, on arrival her rectal temp was 93. A Bairhugger was applied and within tow hours her body temperature returned to normal and we removed the Bairhugger. At this time she is alert, oriented x 3, calm and cooperative and makes eye contact with RN. Respirations are non-labored, no cyanosis, she speaks in full sentences, room air sat's are WNL. No nausea or vomiting. She has taken PO food and fluids without difficulty. We were initially unable to obtain IV access on this pt, therefore Mia RIVERA placed a L IJ #20 gauge without difficulty and labs were obtained and IVF's were administered. At this time pt is sitting upright attempting to contact family members. She is unsure why her blood sugar was 20 on EMS arrival, other than to say I had dialysis and my sugar always drops after dialysis to the point that when I get home from dialysis I eat a lot of carbs. She recalls eating food with her daughter before coming to the ER. We will continue to monitor Natali.
[2021-07-26 05:41] LABS: Glucose, Whole Blood 149 mg/dL (60-115)
--- NOTE | 2021-07-26 05:44 | PM.IMHP ---
History of Present Illness Date of Service: 07/26/21 Chief Complaint: Hypoglycemia 30-year-old female with a past medical history of hypertension, hyperlipidemia, diabetes, ESRD-on hemodialysis; history of hypoglycemic episodes; epilepsy, history of DKA presented to the hospital today with a chief complaint of confusion/drowsiness/lethargy. Upon questioning patient mentioned that the last thing she remembers was taking a nap with her daughter after she came back from her dialysis in the afternoon. Currently denies any symptoms. Denies any fever chills cough. Denies any GI symptoms. Mentions that she usually takes 5 units of Lantus on dialysis days and 10 units of Lantus on non dialysis days. denies taking any extra dose of insulin. Denies any chest pain or palpitations. Denies any seizure-like activity. Review of all other systems is negative except mentioned above ER course: Per ER team patient was sent to the hospital because patient was noted to be drowsy and lethargic by her daughter who called the ambulance; EMS people noted that her fingerstick glucose was 26 and has pinpoint pupils; given Narcan without any improvement and dextrose; denied noticing any seizures. Also noted to have a rectal temperature 93.1 degrees F; After presentation to the ER patient noted to have blood pressure of 154/87, temperature 93.1 degrees F, pulse rate 62; patient became more alert but still drowsy; no focal deficits noted; on labs noted to have he was a glucose of 84; CBC within the normal limits; chemistry noted to have sodium 139 potassium 4.1, creatinine 5.6, random glucose 80, mildly upper above normal limits of ALT AST. Elevated alk-phos. COVID-19 negative. Chest x-ray showed mild congestion. Concern for infection-given Zosyn empirically. Admitted to the hospital for further management [facility] Medical History Anemia Diabetes type 1, uncontrolled Diabetic polyneuropathy associated with type 1 diabetes mellitus Dyslipidemia ESRD (end stage renal disease) ESRD (end stage renal disease) ESRD (end stage renal disease) on dialysis HTN (hypertension) Hypertension Hypoglycemia due to type 1 diabetes mellitus 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 Family History Father Diabetes mellitus Mother Thyroid disease Pre-diabetes HTN (hypertension) Acute depression Arthritis Surgical History History of hemodialysis Hx of amputation Hx of section Hx of eye surgery Social History Household Members: Significant Other Housing: Apartment Do you presently have visiting nurse or other home services: No Alcohol intake: never Patient Tobacco Use Status: Never used Tobacco Use of substances other than those prescribed or required for medical reasons: No Advance Directives: No Advance Directives Information Provided: No service: No Current occupational status: unemployed Meds Allergies Allergy/AdvReac Type Severity Reaction Status Date / Time icodextrin Allergy Mild Rash Verified 05/04/20 14:21 CLOROXINE Allergy Unknown RASH Uncoded 01/13/20 11:01 Active Medications: Current Medications Acetaminophen (Acetaminophen 325 Mg Tablet) 650 mg PO Q6H PRN PRN Reason: Pain, Mild (Pain Scale 1-3) Dextrose (Dextrose 50 % 25 Gm/50 Ml Syringe) 25 gm IVPUSH Q15M PRN; Protocol PRN Reason: per Hypoglycemia Standing Ord. Glucose (Glucose Gel 15 Gm Gel..Gram.) 15 gm PO Q15M PRN; Protocol PRN Reason: per Hypoglycemia Standing Ord. Heparin Sodium (Porcine) (Heparin Sodium,Porcine 5,000 Unit/Ml Vial) 5,000 unit SUBCUT Q8H [facility] Hydralazine HCl (Hydralazine Hcl 20 Mg/Ml Vial) 5 mg IVPUSH Q4H PRN; Protocol PRN Reason: BP>170/90 Insulin Human Lispro (Insulin Lispro 100 Unit/Ml 3 Ml Vial) 0 unit SUBCUT QIDACHS [facility]; Protocol Melatonin (Melatonin 3 Mg Tablet) 6 mg PO BEDTIME PRN PRN Reason: Insomnia Senna (Sennosides 8.6 Mg Tablet) 17.2 mg PO BEDTIME PRN PRN Reason: Constipation Sodium Chloride (0.9 % Sodium Chloride Flush 3 Ml Syringe) 3 ml IVFLUSH [facility] Home Medications Medication Instructions Recorded Confirmed Last Taken Type levetiracetam 750 mg tablet 750 mg PO BID 01/14/20 07/26/21 04/17/21 History multivitamin (Daily-Alyx) 1 tab PO DAILY 01/14/20 07/26/2104/17/22 History carvedilol 25 mg tablet 37.5 mg PO BID 04/18/21 07/26/21 04/17/21 History losartan 100 mg tablet 1 tab PO BID 04/18/21 07/26/21 04/17/21 History valacyclovir 500 mg tablet 1 tab PO DAILY 04/18/21 07/26/21 04/17/21 History fluticasone propionate 50 2 spray INTRANASAL DAILY 06/02/21 07/26/21 Unknown History mcg/actuation nasal spray,suspension insulin glargine 100 unit/mL (3 5 unit SUBCUT MOWEFR@0900 06/02/21 07/26/21 Unknown History mL) subcutaneous pen (Lantus Solostar U-100 Insulin) nifedipine 30 mg tablet,extended 30 mg PO DAILY 06/02/21 07/26/21 Unknown History release Physical Exam Vital Signs and Narrative: Vital Signs: Last Vital Signs Temp 98.3 F 07/26/21 03:56 Pulse 83 07/26/21 03:56 Resp 16 07/26/21 03:56 BP 200/93 H 07/26/21 03:56 Pulse Ox 93 07/26/21 03:56 BMI result Body Mass Index 29.1 Gen: Appears be in no acute distress HEENT: NCAT, Moist mucosa. Pulmonary: Vesicular breath sounds, fair air entry CVS: Normal S1-S2 Abdomen: BS+, Soft, Nontender Extremities: Warm well perfused Neuro: Alert and awake. Results Labs CBC and Chem 7: 07/25/21 22:55 07/25/21 22:55 Labs: Laboratory Results - last 24 hr 07/25/21 07/25/21 07/25/21 21:09 22:20 22:54 MCV MCH MCHC RDW Plt Count MPV Immature Gran % (Auto) Neut % (Auto) Lymph % (Auto) [place] % (Auto) Eos % (Auto) Baso % (Auto) Lymph # (Auto) [place] # (Auto) Eos # (Auto) Baso # (Auto) Abs Immat Gran (auto) Absolute Neuts (auto) Absolute Nucleated RBC Nucleated RBC % (auto) Anion Gap Estim Creat Clear Calc Estimated GFR POC Glucose 101 84 Random Glucose Lactic Acid Calcium Total Bilirubin AST ALT Alkaline Phosphatase Total Protein Albumin Influenza Type A (PCR) NEGATIVE Influenza Type B (PCR) NEGATIVE RSV RNA Qual (PCR) NEGATIVE SARS-CoV-2 RNA (RT-PCR) NEGATIVE 07/25/21 07/25/21 07/25/21 22:55 22:55 22:55 MCV 89.9 MCH 31.5 MCHC 35.0 RDW 13.3 Plt Count 190 MPV 12.3 Immature Gran % (Auto) 0.4 Neut % (Auto) 80.4 H Lymph % (Auto) 12.6 L [place] % (Auto) 5.3 Eos % (Auto) 1.0 Baso % (Auto) 0.3 Lymph # (Auto) 0.9 L [place] # (Auto) 0.4 Eos # (Auto) 0.1 Baso # (Auto) 0.0 Abs Immat Gran (auto) 0.03 Absolute Neuts (auto) 5.8 Absolute Nucleated RBC 0.000 Nucleated RBC % (auto) 0.0 Anion Gap 20 Estim Creat Clear Calc 15.3 Estimated GFR 9 POC Glucose Random Glucose 80 Lactic Acid 0.8 Calcium 8.8 D Total Bilirubin 0.6 AST 33 H ALT 37 H Alkaline Phosphatase 463 H D Total Protein 7.4 Albumin 3.6 Influenza Type A (PCR) Influenza Type B (PCR) RSV RNA Qual (PCR) SARS-CoV-2 RNA (RT-PCR) 07/26/21 05:37 MCV MCH MCHC RDW Plt Count MPV Immature Gran % (Auto) Neut % (Auto) Lymph % (Auto) [place] % (Auto) Eos % (Auto) Baso % (Auto) Lymph # (Auto) [place] # (Auto) Eos # (Auto) Baso # (Auto) Abs Immat Gran (auto) Absolute Neuts (auto) Absolute Nucleated RBC Nucleated RBC % (auto) Anion Gap Estim Creat Clear Calc Estimated GFR POC Glucose 149 H Random Glucose Lactic Acid Calcium Total Bilirubin AST ALT Alkaline Phosphatase Total Protein Albumin Influenza Type A (PCR) Influenza Type B (PCR) RSV RNA Qual (PCR) SARS-CoV-2 RNA (RT-PCR) Imaging Radiologist's Impressions: Impressions Chest X-Ray 07/25/21 21:24 IMPRESSION: Small right effusion has increased in size with a tiny left effusion now present. There is still evidence of vascular congestion and mild interstitial edema. Assessment and Plan (1) Hypothermia: Status: Acute (2) Hypoglycemia: Status: Acute Plan 30-year-old female with a past medical history of hypertension, hyperlipidemia, diabetes, ESRD-on hemodialysis; history of hypoglycemic episodes; epilepsy, history of DKA presented to the hospital today with a chief complaint of confusion/drowsiness/lethargy. Noted to have hypothermia to 93.1 F, hypoglycemic to 20, mildly tachycardic; concern for infection. Admitted for further management. Hypothermia:? Infection. Unclear source. Chest x-ray negative. Patient makes very little urine. Denies any urinary symptoms. Empirically given Zosyn. Follow up cultures. Lactate within normal limits. No leukocytosis. Temperature normalized to 98.3f. Hypoglycemia: Patient has brittle diabetes. Has known history of hypoglycemia in the past. Patient is on small dose of Lantus. Will hold Lantus for now. Fingerstick glucose improving. Encourage p.o. diet. Patient did report that she ate food after she came back from a dialysis yesterday. Drowsiness/lethargy: In the setting of hypoglycemia. Currently patient is alert and awake. Oriented x3. Denies any symptoms. History of type 1 diabetes: Patient has known history of very brittle diabetes. Monitor fingerstick glucose -if remained stable; resume Lantus/insulin sliding scale. Emergency hypoglycemia protocol in place. Hypertensive urgency: Patient asymptomatic. Continue home losartan, nifedipine, carvedilol. Hydralazine p.r.n.. History of seizures: Continue home Keppra 750 mg b.i.d. DVT prophylaxis: Lovenox Code status: Full code Quality Stroke Does the patient have a stroke diagnosis?: No VTE Prior VTE?: No VTE Risk Level:: Medical - moderate - high VTE Device Contraindication: Treatment Not Indicated VTE Drug Contraindication: N/A - Med Ordered
[2021-07-26 06:38] LABS: Procalcitonin 1.09 ng/mL
[2021-07-26] MEDS: Heparin Sodium,Porcine 5,000 UNIT/ML VIAL 5000 UNIT SUBCUT (06:40)
[2021-07-26] MEDS: Piperacillin Sodium/Tazobactam 2.25 GM in 0.9 % Sodium Chloride 50 ML IV (06:41)
[2021-07-26 07:19] LABS: Glucose, Whole Blood 202 mg/dL (60-115)
[2021-07-26] MEDS: Insulin Lispro 100 UNIT/ML 3 ML VIAL SUBCUT ×3 (07:32→18:08)
[2021-07-26] MEDS: hydrALAZINE HCl 20 MG/ML VIAL 5 MG IVPUSH ×3 (07:33→19:50)
[2021-07-26] MEDS: 0.9 % Sodium Chloride Flush 3 ML SYRINGE IVFLUSH (07:35)
[2021-07-26] MEDS: Labetalol HCL 100 MG/20 ML VIAL 10 MG IVPUSH (08:50)
[2021-07-26] MEDS: diphenhydrAMINE HCL 50 MG/ML VIAL 25 MG IVPUSH ×3 (08:50→21:41)
--- NOTE | 2021-07-26 08:50 | PHA.MEDREC ---
Pharmacy Consult ? Medication Reconciliation Pharmacy has completed the medication reconciliation. Spoke with pt. takes different lantus doses based on dialysis days or not.
--- NOTE | 2021-07-26 10:34 | MHC.CM.PN ---
Met with patient in regards to discharge planning. Patient is primarily Marshallese speaking but is able to speak and understand Ukrainian. Patient is declining an land checker at this time. Patient lives alone, ambulates independently and goes to dialysis at [facility] in [place] on Mon, Weds and Fri. PCP verified. Copy of HCP obtained from [facility]. Patient received 3 Moderna vaccines. IMM explained and signed. Patient will arrange transportation home when medically stable. Continue to monitor for d/c needs.
[2021-07-26 13:06] LABS: Glucose, Whole Blood 242 mg/dL (60-115)
--- NOTE | 2021-07-26 14:57 | PC.NURSE ---
This ad copy writer spoke to Dr. Bey-reported to MD persistent hypertension-systolic BP's running 180-220-pt denies headache, burry vision-reported pt receiving Hydralazine 5 mg IV PRN at 2:14 p with no changes in BP-MD to put the in order for additional Hydralaizine 10 mg IV.
[2021-07-26] MEDS: Multivitamin TABLET 1 TAB PO (15:17)
[2021-07-26] MEDS: hydrALAZINE HCl 20 MG/ML VIAL 10 MG IVPUSH (15:17)
[2021-07-26] MEDS: valACYclovir HCL 500 MG TABLET PO (16:41)
[2021-07-26] MEDS: Fluticasone Propionate Nasal 16 GM SPRAY 2 SPRAY NOSTRIL-B (16:41)
--- NOTE | 2021-07-26 17:23 | PM.CNNEP ---
History of Present Illness Reason for Consult Consult date: 07/26/21 Reason for consult: ESRD Chief Complaint Chief complaint: hypoglycemia History of Present Illness Narrative: 30-year-old female with ESRD on hemodialysis ( MWF) presented to the hospital with confusion/drowsiness/lethargy.?Currently denies any symptoms.? Denies any fever chills cough.? Denies any GI symptoms. Mentions that she usually takes 5 units of Lantus on dialysis days and 10 units of Lantus on non dialysis days.? Denies taking any extra dose of insulin. Denies any chest pain or palpitations.?Denies any seizure-like activity.? EMS noted that her fingerstick glucose was 26 .She was admitted for further management. Nephrology has been consulted to assist in her clinical care during her current hospital stay. Review of Systems Review of Systems Yes all other systems are reviewed and are negative PMF Past Medical History Medical History Anemia Diabetes type 1, uncontrolled Diabetic polyneuropathy associated with type 1 diabetes mellitus Dyslipidemia ESRD (end stage renal disease) ESRD (end stage renal disease) ESRD (end stage renal disease) on dialysis HTN (hypertension) Hypertension Hypoglycemia due to type 1 diabetes mellitus 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 Family History Family History Father Diabetes mellitus Mother Thyroid disease Pre-diabetes HTN (hypertension) Acute depression Arthritis Surgical History Surgical History History of hemodialysis Hx of amputation Hx of section Hx of eye surgery Social History Social History Household Members: Significant Other Housing: Apartment Do you presently have visiting nurse or other home services: No Alcohol intake: never Patient Tobacco Use Status: Never used Tobacco Use of substances other than those prescribed or required for medical reasons: No Advance Directives: No Advance Directives Information Provided: No service: No Current occupational status: disabled Meds Allergies Allergy/AdvReac Type Severity Reaction Status Date / Time icodextrin Allergy Mild Rash Verified 05/04/20 14:21 CLOROXINE Allergy Unknown RASH Uncoded 01/13/20 11:01 Active Medications: Current Medications Acetaminophen (Acetaminophen 325 Mg Tablet) 650 mg PO Q6H PRN PRN Reason: Pain, Mild (Pain Scale 1-3) Carvedilol (Carvedilol 12.5 Mg Tablet) 37.5 mg PO BID [facility]; Protocol Dextrose (Dextrose 50 % 25 Gm/50 Ml Syringe) 25 gm IVPUSH Q15M PRN; Protocol PRN Reason: per Hypoglycemia Standing Ord. Diphenhydramine HCl (Diphenhydramine Hcl 50 Mg/Ml Vial) 25 mg IVPUSH Q6H PRN PRN Reason: itchyness Last Admin: 07/26/21 14:14 Dose: 25 mg Documented by: Fluticasone Propionate (Fluticasone Propionate Nasal 16 Gm [place]) 2 spray NOSTRIL-B DAILY [facility] Last Admin: 07/26/21 16:41 Dose: 2 spray Documented by: Glucose (Glucose Gel 15 Gm Gel..Gram.) 15 gm PO Q15M PRN; Protocol PRN Reason: per Hypoglycemia Standing Ord. Heparin Sodium (Porcine) (Heparin Sodium,Porcine 5,000 Unit/Ml Vial) 5,000 unit SUBCUT Q8H [facility] Last Admin: 07/26/21 13:20 Dose: Not Given Documented by: Hydralazine HCl (Hydralazine Hcl 20 Mg/Ml Vial) 5 mg IVPUSH Q4H PRN; Protocol PRN Reason: BP>170/90 Last Admin: 07/26/21 14:14 Dose: 5 mg Documented by: Hydralazine HCl (Hydralazine Hcl 50 Mg Tablet) 50 mg PO BID [facility]; Protocol Hydroxyzine HCl (Hydroxyzine Hcl 10 Mg Tablet) 10 mg PO TID PRN PRN Reason: Anxiety Insulin Glargine (Insulin Glargine,Hum.Rec.Anlog 100 Unit/Ml 10 Ml Vial) 10 unit SUBCUT SUTUTHSA@0900 [facility] Insulin Glargine (Insulin Glargine,Hum.Rec.Anlog 100 Unit/Ml 10 Ml Vial) 5 unit SUBCUT MOWEFR@0900 [facility] Insulin Human Lispro (Insulin Lispro 100 Unit/Ml 3 Ml Vial) 0.1 - 10 unit SUBCUT QIDACHS [facility]; Protocol Last Admin: 07/26/21 13:17 Dose: 4 unit Documented by: Levetiracetam (Levetiracetam 250 Mg Tablet) 750 mg PO BID [facility] Losartan Potassium (Losartan Potassium 50 Mg Tablet) 100 mg PO BID [facility]; Protocol Melatonin (Melatonin 3 Mg Tablet) 6 mg PO BEDTIME PRN PRN Reason: Insomnia Multivitamins/Vitamin C (Multivitamin Tablet) 1 tab PO DAILY [facility] Last Admin: 07/26/21 15:17 Dose: 1 tab Documented by: Nifedipine (Nifedipine Er 60 Mg Tab.Er.24) 60 mg PO DAILY [facility] Senna (Sennosides 8.6 Mg Tablet) 17.2 mg PO BEDTIME PRN PRN Reason: Constipation Sodium Chloride (0.9 % Sodium Chloride Flush 3 Ml Syringe) 3 ml IVFLUSH QSHIFT [facility] Last Admin: 07/26/21 17:18 Dose: Not Given Documented by: Valacyclovir HCl (Valacyclovir Hcl 500 Mg Tablet) 500 mg PO DAILY [facility] Last Admin: 07/26/21 16:41 Dose: 500 mg Documented by: Home Medications Medication Instructions Recorded Confirmed Last Taken Type levetiracetam 750 mg tablet 750 mg PO BID 01/14/20 07/26/21 07/25/21 History multivitamin (Daily-Alyx) 1 tab PO DAILY 01/14/20 07/26/21 07/25/21 History carvedilol 25 mg tablet 37.5 mg PO BID 04/18/21 07/26/21 07/25/21 History losartan 100 mg tablet 1 tab PO BID 04/18/21 07/26/21 07/25/21 History valacyclovir 500 mg tablet 1 tab PO DAILY 04/18/21 07/26/21 07/25/21 History fluticasone propionate 50 2 spray INTRANASAL DAILY 06/02/21 07/26/21 07/25/21 History mcg/actuation nasal spray,suspension insulin glargine 100 unit/mL (3 5 unit SUBCUT MOWEFR@0900 06/02/21 07/26/21 07/25/21 History mL) subcutaneous pen (Lantus Solostar U-100 Insulin) nifedipine 30 mg tablet,extended 60 mg PO DAILY 06/02/21 07/26/21 07/25/21 History release hydralazine 50 mg tablet 1 tab PO BID 07/26/21 07/26/21 07/25/21 History hydroxyzine HCl 10 mg tablet 1 tab PO TID PRN 07/26/21 07/26/21 Unknown History insulin glargine 100 unit/mL 10 unit SUBCUT BONILLA@0900 07/26/21 07/26/21 07/25/21 History subcutaneous solution (Lantus U-100 Insulin) Physical Exam Vital Signs: Last Vital Signs Temp 98.5 F 07/26/21 16:34 Pulse 84 07/26/21 16:34 Resp 19 07/26/21 16:34 BP 198/98 H 07/26/21 16:34 Pulse Ox 96 07/26/21 16:34 BMI result Body Mass Index 29.1 Const General: no acute distress Orientation/consciousness: patient oriented x3 Eyes EOM: EOMs intact bilaterally Neck Neck: Yes supple Resp Auscultation: diminished lung sounds Cardio Rate: regular rate GI Palpation (GI): Soft to palpation Neuro General: patient oriented x3 and moves all extremities Results Lab Results Result Diagrams: 07/25/21 22:55 07/25/21 22:55 Lab results: Chemistry 07/25/21 22:55 Sodium 139 Potassium 4.1 Carbon Dioxide 29 BUN 33 H Creatinine 5.64 H* Calcium 8.8 D Hematology 07/25/21 22:55 WBC 7.2 Hgb 10.9 L Plt Count 190 Assessment and Plan (1) ESRD (end stage renal disease) on dialysis: Status: Acute Plan Usually gets HD on MWF( DUe tomorrow- ordered) Renal Diet( 2 Gram Na/K/Phos restricted diet with fluid restriction) Phos binders with meals; Seizure medications after HD on HD days Increase hydralazine to 100 mg tid; May have increase Nifedipine Continue current dose of Coreg ; Losartan 100 mg daily Shall try to bring dry weight down; Shall closely F/U Procedures Date of Service Date of Service: 07/26/21
[2021-07-26 17:52] LABS: Glucose, Whole Blood > 600 mg/dL (60-115)
[2021-07-26 17:57] LABS: Glucose, Whole Blood > 600 mg/dL (60-115)
[2021-07-26] MEDS: Insulin Lispro 100 UNIT/ML 3 ML VIAL 7 UNIT SUBCUT (18:08)
--- NOTE | 2021-07-26 18:16 | PC.NURSE ---
Blood sugar reading HI on glucometer at 17:50. Dr. Garber notified via [employer]. Verbal order received to administer Humalog 17 units, recheck blood sugar in 1 hour. This senior grant writer administered Humalog 17 units to left upper arm.Pt denies s/s of hyperglycemia.
[2021-07-26] MEDS: NIFEdipine ER 60 MG TAB.ER.24 PO (18:32)
--- NOTE | 2021-07-26 19:44 | PC.NURSE ---
POC 596 Dr. Garber notified, awaiting new orders.
[2021-07-26 19:50] LABS: Glucose, Whole Blood 596 mg/dL (60-115)
[2021-07-26] MEDS: Losartan Potassium 50 MG TABLET 100 MG PO (20:25)
[2021-07-26] MEDS: carvediloL 12.5 MG TABLET 37.5 MG PO (20:26)
[2021-07-26] MEDS: levETIRAcetam 250 MG TABLET 750 MG PO (20:26)
[2021-07-26] MEDS: hydrALAZINE HCl 50 MG TABLET PO (20:26)
[2021-07-26] MEDS: Insulin Lispro 100 UNIT/ML 3 ML VIAL 10 UNIT SUBCUT (20:27)
[2021-07-26 21:05] LABS: Anion Gap 21 (12-20); Blood Urea Nitrogen 53 mg/dL (9-16); Calcium 8.5 mg/dL (8.4-10.2); Carbon Dioxide 24 mmol/L (22-29); Chloride 88 mmol/L (96-108); Estimated Glomerular Filt Rate 6; Glucose Random 723 mg/dL (60-115); Potassium 4.5 mmol/L (3.3-5.1); Sodium 128 mmol/L (135-145)
--- NOTE | 2021-07-26 21:15 | PC.NURSE ---
Critical lab value, glucose [address] Stephan Winters notified, awaiting new orders. Patient reports having dialysis yesterday and will have it again tomorrow.
[2021-07-26] MEDS: Insulin Regular, Human 100 UNIT/ML 3 ML VIAL 10 UNIT IVPUSH (21:41)
--- NOTE | 2021-07-26 22:41 | PM.EVENT ---
Event Note Date of Service: 07/26/21 Event Note: Hyperglycemia: Patient's glucose levels elevated to 700s. Bicarb 24, anion gap 21. Does not appear to be in DKA. Given regular insulin IV push. Patient has diabetes. Will monitor fingerstick glucose closely. Left forearm pain: Exam benign. Range of motion intact and other joints. Denies any chest pain per se. Will obtain EKG and cycle troponins. Morphine x1.
[2021-07-26] MEDS: Morphine Sulfate 2 MG/ML CARTRIDGE 1 MG IVPUSH (22:59)
[2021-07-26 23:09] LABS: Glucose, Whole Blood 443 mg/dL (60-115)
[2021-07-26 23:52] LABS: Troponin-I High Sensitivity 28.2 ng/L (<3.5-17.0)
[2021-07-27 00:30] VITALS: BP 137/71; PULSE 79; RESP 18; TEMP 36.6; O2SAT 98
[2021-07-27 01:05] LABS: Glucose, Whole Blood 202 mg/dL (60-115)
[2021-07-27 02:06] LABS: Troponin-I High Sensitivity 27.2 ng/L (<3.5-17.0)
[2021-07-27 02:26] VITALS: BP 119/63; PULSE 84; RESP 12; O2SAT 98
[2021-07-27] MEDS: 0.9 % Sodium Chloride Flush 3 ML SYRINGE IVFLUSH (02:27)
[2021-07-27 03:11] LABS: Glucose, Whole Blood 119 mg/dL (60-115)
[2021-07-27 05:11] LABS: Glucose, Whole Blood 182 mg/dL (60-115)
[2021-07-27 07:05] LABS: MANUAL DIFF FLAG NO
[2021-07-27 07:10] LABS: Glucose, Whole Blood 267 mg/dL (60-115)
[2021-07-27 07:18] LABS: Basophils Absolute Auto 0.1 X10*3/uL (0.0-0.2); Basophils Percent Auto 0.9 % (0-2); Eosinophils Absolute Auto 0.2 X10*3/uL (0.0-0.4); Eosinophils Percent Auto 2.3 % (0-4); Hematocrit 29.2 % (37.0-47.0); Hemoglobin 10.4 g/dl (12.0-16.0); Imm Gran Abs Auto 0.03 X10*3/uL (0.00-0.03); Imm Gran Pct Auto 0.4 % (0.0-0.4); Lymphocytes Absolute Auto 1.8 X10*3/uL (1.2-4.9); Lymphocytes Percent Auto 21.4 % (20-40); Mean Corpuscular HGB Conc 35.6 g/dl (31.0-35.0); Mean Corpuscular Hemoglobin 31.5 pg (27.0-33.0); Mean Corpuscular Volume 88.5 fL (80.0-98.0); Mean Platelet Volume 12.8 fL (9.4-12.3); Monocytes Absolute Auto 0.7 X10*3/uL (0.1-1.2); Monocytes Percent Auto 7.8 % (2-11); Neutrophils Absolute Auto 5.7 x10*3/uL (2.0-8.3); Neutrophils Percent Auto 67.2 % (45-73); Platelet Count 179 X10*3/uL (160-400); Red Cell Distribution Width 13.8 % (11.0-16.0); White Blood Count 8.4 X10*3/uL (4.8-10.8)
[2021-07-27 07:32] LABS: Anion Gap 23 (12-20); Blood Urea Nitrogen 59 mg/dL (9-16); Calcium 8.7 mg/dL (8.4-10.2); Carbon Dioxide 25 mmol/L (22-29); Chloride 90 mmol/L (96-108); Estimated Glomerular Filt Rate 5; Glucose Random 280 mg/dL (60-115); Potassium 4.7 mmol/L (3.3-5.1); Sodium 133 mmol/L (135-145)
[2021-07-27] MEDS: carvediloL 12.5 MG TABLET 37.5 MG PO (07:40)
[2021-07-27] MEDS: Losartan Potassium 50 MG TABLET 100 MG PO (07:41)
[2021-07-27] MEDS: levETIRAcetam 250 MG TABLET 750 MG PO (07:41)
[2021-07-27] MEDS: Insulin Lispro 100 UNIT/ML 3 ML VIAL SUBCUT (07:42)
[2021-07-27] MEDS: Multivitamin TABLET 1 TAB PO ×2 (07:42→16:28)
[2021-07-27] MEDS: Insulin Glargine,Hum.rec.anlog 100 UNIT/ML 10 ML VIAL 10 UNIT SUBCUT (07:43)
[2021-07-27] MEDS: Fluticasone Propionate Nasal 16 GM SPRAY 2 SPRAY NOSTRIL-B (07:48)
--- NOTE | 2021-07-27 08:40 | PC.NURSE ---
taken to dialysis via stretcher
--- NOTE | 2021-07-27 10:11 | PM.PNNEP ---
Subjective Subjective Date of Service: 07/27/21 Interval history: Seen on HD. BP well controlled. No new issues. Tolerating HD well Physical Exam Vital Signs: Vital Signs: Last Vital Signs Temp 98 F 07/27/21 00:30 Pulse 84 07/27/21 02:26 Resp 12 07/27/21 02:26 BP 119/63 07/27/21 02:26 Pulse Ox 98 07/27/21 02:26 BMI result Body Mass Index 29.1 Const: General: comfortable Orientation/consciousness: patient oriented x3 Eyes: EOM: EOMs intact bilaterally Resp: Auscultation: diminished lung sounds Cardio: Rate: regular rate GI: Palpation (GI): Soft to palpation Neuro: General: patient oriented x3 Objective Data Labs CBC & Chem 7: 07/27/21 06:49 07/27/21 06:49 Labs: Laboratory Results - last 24 hr 07/26/21 07/26/21 07/26/21 13:03 17:48 17:52 WBC RBC Hgb Hct MCV MCH MCHC RDW Plt Count MPV Immature Gran % (Auto) Neut % (Auto) Lymph % (Auto) Major % (Auto) Eos % (Auto) Baso % (Auto) Lymph # (Auto) Major # (Auto) Eos # (Auto) Baso # (Auto) Abs Immat Gran (auto) Absolute Neuts (auto) Absolute Nucleated RBC Nucleated RBC % (auto) Sodium Potassium Chloride Carbon Dioxide Anion Gap BUN Creatinine Estim Creat Clear Calc Estimated GFR POC Glucose 242 H > 600 H* > 600 H* Random Glucose Calcium Troponin I High Sens 07/26/21 07/26/21 07/26/21 19:37 20:26 22:55 WBC RBC Hgb Hct MCV MCH MCHC RDW Plt Count MPV Immature Gran % (Auto) Neut % (Auto) Lymph % (Auto) Major % (Auto) Eos % (Auto) Baso % (Auto) Lymph # (Auto) Major # (Auto) Eos # (Auto) Baso # (Auto) Abs Immat Gran (auto) Absolute Neuts (auto) Absolute Nucleated RBC Nucleated RBC % (auto) Sodium 128 L Potassium 4.5 Chloride 88 L Carbon Dioxide 24 Anion Gap 21 H BUN 53 H D Creatinine 7.84 H* Estim Creat Clear Calc 11.0 Estimated GFR 6 POC Glucose 596 H* 443 H* Random Glucose 723 H* D Calcium 8.5 Troponin I High Sens 07/26/21 07/27/21 07/27/21 23:11 01:01 01:36 WBC RBC Hgb Hct MCV MCH MCHC RDW Plt Count MPV Immature Gran % (Auto) Neut % (Auto) Lymph % (Auto) Major % (Auto) Eos % (Auto) Baso % (Auto) Lymph # (Auto) Major # (Auto) Eos # (Auto) Baso # (Auto) Abs Immat Gran (auto) Absolute Neuts (auto) Absolute Nucleated RBC Nucleated RBC % (auto) Sodium Potassium Chloride Carbon Dioxide Anion Gap BUN Creatinine Estim Creat Clear Calc Estimated GFR POC Glucose 202 H Random Glucose Calcium Troponin I High Sens 28.2 H 27.2 H 07/27/21 07/27/21 07/27/21 03:07 05:07 06:49 WBC 8.4 RBC 3.30 L Hgb 10.4 L Hct 29.2 L MCV 88.5 MCH 31.5 MCHC 35.6 H RDW 13.8 Plt Count 179 MPV 12.8 H Immature Gran % (Auto) 0.4 Neut % (Auto) 67.2 Lymph % (Auto) 21.4 Major % (Auto) 7.8 Eos % (Auto) 2.3 Baso % (Auto) 0.9 Lymph # (Auto) 1.8 Major # (Auto) 0.7 Eos # (Auto) 0.2 Baso # (Auto) 0.1 Abs Immat Gran (auto) 0.03 Absolute Neuts (auto) 5.7 Absolute Nucleated RBC 0.000 Nucleated RBC % (auto) 0.0 Sodium Potassium Chloride Carbon Dioxide Anion Gap BUN Creatinine Estim Creat Clear Calc Estimated GFR POC Glucose 119 H 182 H Random Glucose Calcium Troponin I High Sens 07/27/21 07/27/21 06:49 06:59 WBC RBC Hgb Hct MCV MCH MCHC RDW Plt Count MPV Immature Gran % (Auto) Neut % (Auto) Lymph % (Auto) Major % (Auto) Eos % (Auto) Baso % (Auto) Lymph # (Auto) Major # (Auto) Eos # (Auto) Baso # (Auto) Abs Immat Gran (auto) Absolute Neuts (auto) Absolute Nucleated RBC Nucleated RBC % (auto) Sodium 133 L Potassium 4.7 Chloride 90 L Carbon Dioxide 25 Anion Gap 23 H BUN 59 H Creatinine 8.58 H* Estim Creat Clear Calc 10.0 Estimated GFR 5 POC Glucose 267 H Random Glucose 280 H D Calcium 8.7 Troponin I High Sens Microbiology Microbiology Results: Microbiology 07/25/21 22:55 Blood - Venous Blood Culture - Preliminary No growth after 24 hours. 07/25/21 22:55 Blood - Venous Blood Culture - Preliminary No growth after 24 hours. Procedures Date of Service Date of Service: 07/27/21 Assessment & Plan Assessment and plan (1) ESRD (end stage renal disease) on dialysis: Status: Acute Assessment and Plan: Usually gets HD on MWF. Seen on HD AM Renal Diet( 2 Gram Na/K/Phos restricted diet with fluid restriction) Phos binders with meals; Seizure medications after HD on HD days Continue current dose of antihypertensive medications Shall try to bring dry weight down; Shall closely F/U Time Spent With Patient Time: Total time spent is greater than 50% in coordination of care (as documented) at patient's floor/unit and/or counseling patient: Progress Note: Quality Stroke Does the patient have a stroke diagnosis?: No
--- NOTE | 2021-07-27 11:45 | MHC.CM.PN ---
Pt will be discharging to home after completion of hemodialysis. She will contact family or friend to transport her to home. No additional needs or services have been identified.
[2021-07-27 13:35] LABS: Glucose, Whole Blood 129 mg/dL (60-115)
[2021-07-27 15:04] VITALS: BP 152/82; PULSE 75; RESP 13; TEMP 37; O2SAT 98
--- NOTE | 2021-07-27 15:38 | P.DS_ITS ---
DS: Providers Provider Date of Service: 07/27/21 Date of admission: 07/26/21 05:41 Primary care physician: Mt Hooker MD Consults: 07/26/21 10:20 Consult to Nephrology Routine Consulting Provider: Forrest Adamson Reason for consultation: uncontrolled HTN DS: Diagnosis Discharge Diagnosis (1) ESRD (end stage renal disease) on dialysis: Status: Acute DS: Summary Hospital Course Hospital Course: Chief Complaint: Hypoglycemia 30-year-old female with a past medical history of hypertension, hyperlipidemia, diabetes, ESRD-on hemodialysis; history of hypoglycemic episodes; epilepsy, history of DKA presented to the hospital today with a chief complaint of confusion/drowsiness/lethargy.? Upon questioning patient mentioned that the last thing she remembers was taking a nap with her daughter after she came back from her dialysis in the afternoon. Currently denies any symptoms.? Denies any fever chills cough.? Denies any GI symptoms. Mentions that she usually takes 5 units of Lantus on dialysis days and 10 units of Lantus on non dialysis days.? denies taking any extra dose of insulin.? Denies any chest pain or palpitations.? Denies any seizure-like activity.? Review of all other systems is negative except mentioned above ER course: Per ER team patient was sent to the hospital because patient was noted to be drowsy and lethargic by her daughter who called the ambulance; EMS people noted that her fingerstick glucose was 26 and has pinpoint pupils; given Narcan without any improvement and dextrose; denied noticing any seizures. Also noted to have a rectal temperature 93.1 degrees F; After presentation to the ER patient noted to have blood pressure of 154/87, temperature 93.1 degrees F, pulse rate 62; patient became more alert but still drowsy; no focal deficits noted; on labs noted to have he was a glucose of 84; CBC? within the normal limits; chemistry noted to have sodium 139 potassium 4.1, creatinine 5.6, random glucose 80, mildly upper above normal limits of ALT AST.? Elevated alk-phos.? COVID-19 negative.? Chest x-ray showed mild congestion.? Concern for infection-given Zosyn empirically.? Admitted to the hospital for further management Hospital course: Patient was admitted overnight, hypoglycemia and hypothermia resolved. There was no evidence of infection so antibiotics were discontinued. Her blood pressures were very high probably due to not taking her medications and improved once her blood pressure medication were restarted. She had dialysis on scheduled dialysis day. She Time Spent with Patient Time attestation: Total time spent providing and/or coordinating discharge services: Discharge coordination time: Greater than 30 minutes Quality: Safe Use of Opioids Does Pt have an Active Cancer Diagnosis on the Problem List?: No Quality: Stroke Does the patient have a stroke diagnosis?: No Physical Exam Vital Signs: Vital Signs: Last Vital Signs Temp 98.6 F 07/27/21 15:04 Pulse 75 07/27/21 15:04 Resp 13 07/27/21 15:04 BP 152/82 H 07/27/21 15:04 Pulse Ox 98 07/27/21 15:04 BMI result Body Mass Index 29.1 DS: Data Data Completed and Pending Completed studies during hospitalization [Text1]: Procedures Performance of Urinary Filtration, Intermittent, Less than 6 Hours Per Day (06/02/21) Labs on day of discharge: Laboratory Results - last 24 hr 07/26/21 07/26/21 07/26/21 17:48 17:52 19:37 WBC RBC Hgb Hct MCV MCH MCHC RDW Plt Count MPV Immature Gran % (Auto) Neut % (Auto) Lymph % (Auto) [place] % (Auto) Eos % (Auto) Baso % (Auto) Lymph # (Auto) [place] # (Auto) Eos # (Auto) Baso # (Auto) Abs Immat Gran (auto) Absolute Neuts (auto) Absolute Nucleated RBC Nucleated RBC % (auto) Sodium Potassium Chloride Carbon Dioxide Anion Gap BUN Creatinine Estim Creat Clear Calc Estimated GFR POC Glucose > 600 H* > 600 H* 596 H* Random Glucose Calcium Troponin I High Sens 07/26/21 07/26/21 07/26/21 20:26 22:55 23:11 WBC RBC Hgb Hct MCV MCH MCHC RDW Plt Count MPV Immature Gran % (Auto) Neut % (Auto) Lymph % (Auto) [place] % (Auto) Eos % (Auto) Baso % (Auto) Lymph # (Auto) [place] # (Auto) Eos # (Auto) Baso # (Auto) Abs Immat Gran (auto) Absolute Neuts (auto) Absolute Nucleated RBC Nucleated RBC % (auto) Sodium 128 L Potassium 4.5 Chloride 88 L Carbon Dioxide 24 Anion Gap 21 H BUN 53 H D Creatinine 7.84 H* Estim Creat Clear Calc 11.0 Estimated GFR 6 POC Glucose 443 H* Random Glucose 723 H* D Calcium 8.5 Troponin I High Sens 28.2 H 07/27/21 07/27/21 07/27/21 01:01 01:36 03:07 WBC RBC Hgb Hct MCV MCH MCHC RDW Plt Count MPV Immature Gran % (Auto) Neut % (Auto) Lymph % (Auto) [place] % (Auto) Eos % (Auto) Baso % (Auto) Lymph # (Auto) [place] # (Auto) Eos # (Auto) Baso # (Auto) Abs Immat Gran (auto) Absolute Neuts (auto) Absolute Nucleated RBC Nucleated RBC % (auto) Sodium Potassium Chloride Carbon Dioxide Anion Gap BUN Creatinine Estim Creat Clear Calc Estimated GFR POC Glucose 202 H 119 H Random Glucose Calcium Troponin I High Sens 27.2 H 07/27/21 07/27/21 07/27/21 05:07 06:49 06:49 WBC 8.4 RBC 3.30 L Hgb 10.4 L Hct 29.2 L MCV 88.5 MCH 31.5 MCHC 35.6 H RDW 13.8 Plt Count 179 MPV 12.8 H Immature Gran % (Auto) 0.4 Neut % (Auto) 67.2 Lymph % (Auto) 21.4 [place] % (Auto) 7.8 Eos % (Auto) 2.3 Baso % (Auto) 0.9 Lymph # (Auto) 1.8 [place] # (Auto) 0.7 Eos # (Auto) 0.2 Baso # (Auto) 0.1 Abs Immat Gran (auto) 0.03 Absolute Neuts (auto) 5.7 Absolute Nucleated RBC 0.000 Nucleated RBC % (auto) 0.0 Sodium 133 L Potassium 4.7 Chloride 90 L Carbon Dioxide 25 Anion Gap 23 H BUN 59 H Creatinine 8.58 H* Estim Creat Clear Calc 10.0 Estimated GFR 5 POC Glucose 182 H Random Glucose 280 H D Calcium 8.7 Troponin I High Sens 07/27/21 07/27/21 06:59 13:31 WBC RBC Hgb Hct MCV MCH MCHC RDW Plt Count MPV Immature Gran % (Auto) Neut % (Auto) Lymph % (Auto) [place] % (Auto) Eos % (Auto) Baso % (Auto) Lymph # (Auto) [place] # (Auto) Eos # (Auto) Baso # (Auto) Abs Immat Gran (auto) Absolute Neuts (auto) Absolute Nucleated RBC Nucleated RBC % (auto) Sodium Potassium Chloride Carbon Dioxide Anion Gap BUN Creatinine Estim Creat Clear Calc Estimated GFR POC Glucose 267 H 129 H Random Glucose Calcium Troponin I High Sens Preliminary micro results at discharge 07/25/21 22:55 Blood Culture - Preliminary Blood - Venous No growth after 24 hours. 07/25/21 22:55 Blood Culture - Preliminary Blood - Venous No growth after 24 hours. Discharge Plan Discharge Anticipated Discharge Date/Time: 07/27/21 15:34 Patient Disposition: Home, Self-Care Discharge Diagnosis: Hypoglycemia Referrals: Mt Hooker MD [Primary Care Provider] - 1 Week Discharge Medications: Continued multivitamin [Daily-Alyx] Tablet 1 tab PO DAILY 0RF levetiracetam 750 mg Tablet 750 mg PO BID 0RF nifedipine 30 mg Tablet Extended Release 60 mg PO DAILY 0RF fluticasone propionate 50 mcg/actuation [place],Suspension 2 spray INTRANASAL DAILY 0RF Rx Instructions: administer into each nostril Lantus Solostar U-100 Insulin 100 unit/mL (3 mL) Insulin Pen 5 unit SUBCUT MOWEFR@0900 0RF valacyclovir 500 mg tablet 1 tab PO DAILY 0RF losartan 100 mg tablet 1 tab PO BID 0RF carvedilol 25 mg tablet 37.5 mg PO BID 0RF hydralazine 50 mg tablet 1 tab PO BID 0RF hydroxyzine HCl 10 mg tablet 1 tab PO TID PRN (Reason: Anxiety) 0RF Lantus U-100 Insulin 100 unit/mL solution 10 unit SUBCUT SUTUTHSA@0900 0RF (DME) FreeStyle Lola 2 Sensor Kit See Rx Instructions .ROUTE .MEDSUPPLY Qty: 2 12RF Rx Instructions: Every 14 days (DME) FreeStyle Lola 2 [place] Misc See Rx Instructions .ROUTE .MEDSUPPLY Qty: 1 0RF Rx Instructions: As directed (DME) FreeStyle Precision Ian Strips Strip See Rx Instructions .ROUTE .MEDSUPPLY Qty: 50 7RF Rx Instructions: once a day for calibration Discharge Orders: Discharge Order (Routine); Ordered 07/27/21 Ordered By: Mushtaq Garber Diet: advance to usual diet Activity on Discharge: As tolerated Stand Alone Forms: Patient Portal Discharge page Care Plan Goals: prevent rehospitalization Health Concerns: Chronic kidney disease Plan of Treatment: Take all your medication as directed, follow up with dialsyis as usual Assessment: as
[2021-07-27] MEDS: Insulin Glargine,Hum.rec.anlog 100 UNIT/ML 10 ML VIAL SUBCUT (16:28)
== END 2021-07-27 19:04 | disposition home or self-care (01) | DRG 638 ==
LOC: HO.ED 07-26 00:39 → HO.EDOVER 07-26 06:00 → HO.IMC 07-27 09:05 → HO.EDOVER 07-27 09:11
PROVIDERS: Admitting Provider Hospitalist; Emergency Provider Internal Medicine; PCP Internal Medicine; Visit Provider Internal Medicine
DX: E10.649 Type 1 diabetes mellitus with hypoglycemia without coma (principal); I12.0 Hypertensive chronic kidney disease with stage 5 chronic kidney disease or end stage renal disease; G40.909 Epilepsy, unspecified, not intractable, without status epilepticus; R68.0 Hypothermia, not associated with low environmental temperature; I16.0 Hypertensive urgency; E10.65 Type 1 diabetes mellitus with hyperglycemia; N18.6 End stage renal disease; E10.22 Type 1 diabetes mellitus with diabetic chronic kidney disease; Z99.2 Dependence on renal dialysis; Z20.822 Contact with and (suspected) exposure to COVID-19; Z88.8 Allergy status to other drugs, medicaments and biological substances; Z79.4 Long term (current) use of insulin; Z79.51 Long term (current) use of inhaled steroids; Z79.899 Other long term (current) drug therapy
CPT/HCPCS: 0241U; 36415; 71045; 80048; 80053; 82947; 83605; 84145; 84484; 85025; 87040; 90999; 93005; 96365; 96375; 99285; J0696; J1200; J2270; J2543; J3370

== ENCOUNTER 2021-08-08 14:07 | Outpatient (REF) | payer MEDICARE, MEDICAID, SELFPAY ==
[2021-08-08 16:54] LABS: HCG Quantitative < 2 mIU/mL
== END 2021-08-08 14:08 | disposition home or self-care (01) ==
LOC: HO.LAB 14:07
PROVIDERS: PCP Internal Medicine; Visit Provider Advanced Practice Midwife
DX: E10.65 Type 1 diabetes mellitus with hyperglycemia (principal); N18.6 End stage renal disease; N92.6 Irregular menstruation, unspecified; Z99.2 Dependence on renal dialysis
CPT/HCPCS: 36415; 84702; 99202

== ENCOUNTER 2021-08-25 13:35 | Outpatient (REF) | payer MEDICARE, MEDICAID, SELFPAY ==
--- NOTE | ~2021-08-25 | US_ITS ---
EXAMINATION: US PELVIS CLINICAL INFORMATION: Irregular menstruation COMPARISON: CT abdomen pelvis 01/13/2020 TECHNIQUE: Ultrasound of the pelvis is performed using both transabdominal and transvaginal transducers along with Doppler. Transvaginal imaging is performed due to inadequate visualization transabdominally. FINDINGS: Uterus: The uterus is anteverted and measures 10.3 x 4.1 x 5.3 cm The double wall endometrial thickness is 0.6 cm. The uterus is smooth in contour and has normal myometrial echogenicity. There are multiple echogenic large calcifications. No visible fibroid. Adnexa: Both ovaries are visualized. There is normal color flow to the adnexa. There is no ovarian torsion. There is no pelvic ascites or fluid collection. Right ovary measures 2.7 x 2.0 x 1.8 CM and volume 5.1 mL. Left ovary measures 3.9 x 3.0 x 2.9 cm and volume 17.8 mL. There is a simple cyst measuring 2.5 x 2.7 x 2.8 cm. There is large amount of free fluid in the cul-de-sac US/US pelvic and transvaginal IMPRESSION: Simple left ovarian cyst. The uterus is unremarkable except for multiple large echogenic calcifications. No visible fibroid seen. Large amount of free fluid in the cul-de-sac.
== END 2021-08-25 13:36 | disposition home or self-care (01) ==
LOC: HO.US 13:35
PROVIDERS: Visit Provider Advanced Practice Midwife
DX: N92.6 Irregular menstruation, unspecified (principal); N83.292 Other ovarian cyst, left side
CPT/HCPCS: 76830; 76856

== ENCOUNTER → 2021-09-13 13:23 | Outpatient (BNVA) | payer MEDICARE, MEDICAID, SELFPAY | PROVIDERS: Visit Provider Advanced Practice Midwife | DX: Z13.89 Encounter for screening for other disorder (principal) | CPT/HCPCS: Q3014 ==

== ENCOUNTER → 2022-02-28 09:07 | Outpatient (BNVA) | payer MEDICARE, MEDICAID, SELFPAY | PROVIDERS: PCP Internal Medicine; Referring Provider Internal Medicine; Visit Provider Physician Assistant | DX: N18.6 End stage renal disease (principal); Z99.2 Dependence on renal dialysis | CPT/HCPCS: 99202 ==

== ENCOUNTER → 2022-03-14 09:23 | Outpatient (BNVA) | payer MEDICARE, MEDICAID, SELFPAY | PROVIDERS: PCP Internal Medicine; Visit Provider Surgery Vascular Surgery | DX: I83.11 Varicose veins of right lower extremity with inflammation (principal) | CPT/HCPCS: 99212 ==

== ENCOUNTER 2022-03-23 08:45 | Outpatient (REF) | payer MEDICARE, MEDICAID, SELFPAY ==
[2022-03-23 09:59] LABS: Cholesterol 198 mg/dL; HDL Cholesterol 76 mg/dL; LDL Cholesterol Calculated 108 mg/dl; Triglycerides 70 mg/dL
== END 2022-03-23 08:46 | disposition home or self-care (01) ==
LOC: HO.LAB 08:45
PROVIDERS: PCP Internal Medicine; Visit Provider Internal Medicine Endocrinology, Diabetes & Metabolism
DX: E10.65 Type 1 diabetes mellitus with hyperglycemia (principal)
CPT/HCPCS: 36415; 80061; 82947; 83036; 99212

== ENCOUNTER 2022-05-19 08:20 | Outpatient (REF) | payer MEDICARE, MEDICAID, SELFPAY ==
--- NOTE | ~2022-05-19 | US_ITS ---
EXAMINATION: US VENOUS BILATERAL LOWER EXTREMITIES (REFLUX EXAM) CLINICAL INDICATION: Leg pain and varicose veins. COMPARISON: None TECHNIQUE: Color flow triplex imaging and compression Doppler was performed to evaluate both the deep and the superficial systems bilaterally. To evaluate the superficial system, the examination was performed in the upright position. Color-flow Doppler ultrasound and compression ultrasound were utilized. In addition, maneuvers were utilized to demonstrate reflux. FINDINGS: 1. DEEP VENOUS ULTRASOUND OF THE RIGHT LOWER EXTREMITY: Respiratory variation, normal compression and augmented flow are noted in the right common femoral vein as well as the right popliteal vein and there is no evidence of deep venous thrombosis at these locations. There is no evidence of reflux in the deep system in either the common femoral vein or the popliteal vein. There is no evidence of a Calderon's cyst. 2. SUPERFICIAL ULTRASOUND WITH DOPPLER OF RIGHT LOWER EXTREMITY: The right great saphenous vein at the saphenofemoral junction measures 7 mm, at the proximal thigh 6 mm, at the mid thigh 3 mm, above the knee 3 mm, at the knee 4 mm, [id number] 2 mm, midcalf 2 mm and at the ankle measures 2 mm. There is 1.8 seconds of reflux seen below the knee. Duplicated Right Great Saphenous Vein: There is a lateral accessory saphenous measuring 3 mm without reflux. The right small saphenous vein measures 2 mm and shows no reflux. Accessory Vein of Giacomini: None Incompetent Perforators: None Varices Present: Varices are present which measure 0.3 cm. 3. DEEP VENOUS ULTRASOUND OF THE LEFT LOWER EXTREMITY: Respiratory variation, normal compression and augmented flow are noted in the left common femoral vein as well as the left popliteal vein and there is no evidence of deep venous thrombosis at these locations. There is no evidence of reflux in the deep system in either the common femoral vein or the popliteal vein. There is no evidence of a Calderon's cyst. 4. SUPERFICIAL ULTRASOUND WITH DOPPLER OF LEFT LOWER EXTREMITY: Left great saphenous vein at the saphenofemoral junction measures 7 mm, at the proximal thigh 6 mm, at the mid thigh 3 mm, above the knee 4 mm, at the knee 5 mm, [id number] 3 mm, midcalf 2 mm and at the ankle measures 2 mm. There is no reflux demonstrated in the left great saphenous vein. Duplicated Left Great Saphenous Vein: There is a 4 mm accessory lateral saphenous that does not reflux. The left small saphenous vein measures 4 mm and shows no reflux. Accessory Vein of Giacomini: None Incompetent Perforators: None. Varices Present: None US/US venous duplex LE BI IMPRESSION: 1. No evidence of reflux or thrombus in the common femoral veins or popliteal veins bilaterally. 2. The saphenous systems are competent bilaterally with the exception of 1.8 seconds in the right great saphenous below the knee.
== END 2022-05-19 08:21 | disposition home or self-care (01) ==
LOC: HO.US 08:20
PROVIDERS: PCP Internal Medicine; Visit Provider Surgery Vascular Surgery
DX: I83.11 Varicose veins of right lower extremity with inflammation (principal); I83.893 Varicose veins of bilateral lower extremities with other complications
CPT/HCPCS: 93970

== ENCOUNTER → 2022-06-08 14:36 | Outpatient (BNVA) | payer MEDICARE, MEDICAID, SELFPAY | PROVIDERS: PCP Internal Medicine; Visit Provider Surgery Vascular Surgery | DX: I83.11 Varicose veins of right lower extremity with inflammation (principal); I73.9 Peripheral vascular disease, unspecified; E10.65 Type 1 diabetes mellitus with hyperglycemia; E10.42 Type 1 diabetes mellitus with diabetic polyneuropathy; E10.22 Type 1 diabetes mellitus with diabetic chronic kidney disease; I12.0 Hypertensive chronic kidney disease with stage 5 chronic kidney disease or end stage renal disease; N18.6 End stage renal disease; Z99.2 Dependence on renal dialysis | CPT/HCPCS: 99212 ==

== ENCOUNTER 2022-06-13 09:42 | Outpatient (REF) | payer MEDICARE, MEDICAID, SELFPAY ==
--- NOTE | ~2022-06-13 | US_ITS ---
EXAMINATION: US LOWER EXTREMITY DUPLEX, BILATERAL CLINICAL INFORMATION: Peripheral vascular disease TECHNIQUE: Real-time ultrasound and Doppler techniques (integrating B-mode 2-D vascular images, Doppler spectral analysis and color flow Doppler imaging) were utilized to interrogate the lower extremities. COMPARISON: None FINDINGS: RIGHT LEG: Common femoral artery: 146 cm/s, Monophasic Profunda femoris artery: 110 cm/s, Monophasic Superficial femoral artery (proximal): 107 cm/s, Triphasic Superficial femoral artery (mid): 110 cm/s, Triphasic Superficial femoral artery (distal): 100 cm/s, Monophasic Popliteal artery: 91 cm/s, Monophasic Posterior tibial artery: 152 cm/s, Monophasic Peroneal artery: 62 cm/s, Monophasic LEFT LEG: Common femoral artery: 123 cm/s, Monophasic Profunda femoris artery: 86 cm/s, Monophasic Superficial femoral artery (proximal): 97 cm/s, Triphasic Superficial femoral artery (mid): 130 cm/s, Monophasic Superficial femoral artery (distal): 89.7 cm/s, Monophasic Popliteal artery: 92 cm/s, Monophasic Posterior tibial artery: 99 cm/s, Monophasic Peroneal artery: Occluded US/US KELLEN complete IMPRESSION: 1. Monophasic waveforms throughout bilateral lower extremities suggesting inflow disease. 2. Occluded left peroneal artery. 3. Elevated velocity in the right posterior tibial artery suggesting a mild stenosis. Nondiagnostic KELLEN due to inability to obtain left brachial blood pressure and calcified tibial vessels.
--- NOTE | ~2022-06-13 | US_ITS ---
EXAMINATION: US LOWER EXTREMITY DUPLEX, BILATERAL CLINICAL INFORMATION: Peripheral vascular disease TECHNIQUE: Real-time ultrasound and Doppler techniques (integrating B-mode 2-D vascular images, Doppler spectral analysis and color flow Doppler imaging) were utilized to interrogate the lower extremities. COMPARISON: None FINDINGS: RIGHT LEG: Common femoral artery: 146 cm/s, Monophasic Profunda femoris artery: 110 cm/s, Monophasic Superficial femoral artery (proximal): 107 cm/s, Triphasic Superficial femoral artery (mid): 110 cm/s, Triphasic Superficial femoral artery (distal): 100 cm/s, Monophasic Popliteal artery: 91 cm/s, Monophasic Posterior tibial artery: 152 cm/s, Monophasic Peroneal artery: 62 cm/s, Monophasic LEFT LEG: Common femoral artery: 123 cm/s, Monophasic Profunda femoris artery: 86 cm/s, Monophasic Superficial femoral artery (proximal): 97 cm/s, Triphasic Superficial femoral artery (mid): 130 cm/s, Monophasic Superficial femoral artery (distal): 89.7 cm/s, Monophasic Popliteal artery: 92 cm/s, Monophasic Posterior tibial artery: 99 cm/s, Monophasic Peroneal artery: Occluded US/US arterial duplex LE BI IMPRESSION: 1. Monophasic waveforms throughout bilateral lower extremities suggesting inflow disease. 2. Occluded left peroneal artery. 3. Elevated velocity in the right posterior tibial artery suggesting a mild stenosis. Nondiagnostic KELLEN due to inability to obtain left brachial blood pressure and calcified tibial vessels.
== END 2022-06-13 09:43 | disposition home or self-care (01) ==
LOC: HO.US 09:42
PROVIDERS: PCP Internal Medicine; Visit Provider Surgery Vascular Surgery
DX: I70.213 Atherosclerosis of native arteries of extremities with intermittent claudication, bilateral legs (principal)
CPT/HCPCS: 93923; 93925

== ENCOUNTER → 2022-07-25 10:31 | Outpatient (BNVA) | payer MEDICARE, MEDICAID, SELFPAY | PROVIDERS: PCP Internal Medicine; Visit Provider Internal Medicine Endocrinology, Diabetes & Metabolism | DX: E10.65 Type 1 diabetes mellitus with hyperglycemia (principal) | CPT/HCPCS: 82947; 83036; 99212 ==

== ENCOUNTER 2022-10-26 10:06 | Outpatient (AMB) | payer MEDICARE, MEDICAID, SELFPAY ==
[2022-10-26 10:11] VITALS: BP 108/62; PULSE 84; O2SAT 98; BMI 26.1
--- NOTE | 2022-10-26 10:11 | MHC.OFFVIS ---
Intake Vital Signs 10/26/22 10:11 Height 5 ft 1 in Weight 138 lb 0.15 oz BMI 26.1 BP 108/62 Blood Pressure Location Rt brachial Position Sitting Pulse 84 Pulse Source Pulse Oximeter Pulse Oximetry (%) 98 Oxygen Delivery Method Room Air Intake Visit Reasons: f/u Type 1 DM Intake Note: Patient present today to follow up on Type 1 Diabetes Mellitus. Patient receives DME supplies through: Last Diabetic Eye exam: 2021 Last Podiatry Visit: Doesn't see a channel man Random Glucose:431mg/dl 10:19 AM, 224 mg/dl 11:39 AM HgA1C: 9.7% Desolderer Required: No Accompanied by: Self / Same As Patient Allergies icodextrin Allergy (Mild, Verified 10/26/22 10:11) Rash CLOROXINE Allergy (Unknown, Uncoded 10/26/22 10:11) RASH Medication List - Last Reconciled 10/26/22 by Shiva Perez MD blood sugar diagnostic (FreeStyle Precision Ian Strips) once a day for calibration carvedilol 37.5 mg PO BID flash glucose scanning reader (FreeStyle Lola 2 [place]) As directed flash glucose sensor (FreeStyle Lola 2 Sensor kit) Every 14 days fluticasone propionate 50 mcg/actuation 2 sprays intranasal DAILY hydralazine 1 tab PO BID hydroxyzine HCl 1 tab PO TID PRN insulin aspart U-100 (Novolog U-100 Insulin aspart) 4-10 units TID insulin glargine (Lantus Solostar U-100 Insulin) 5 units subcut MOWEFR@0900 insulin glargine (Lantus U-100 Insulin) 10 units subcut SUTUTHSA@0900 lancets (FreeStyle Lancets) As directed 3 times a day levetiracetam 750 mg PO BID losartan 1 tab PO BID multivitamin (Daily-Alyx tablet) 1 tab PO DAILY nifedipine ER 60 mg PO DAILY nifedipine ER 90 mg PO DAILY sevelamer carbonate 2.4 grams PO TID HPI HPI Comments History of Present Illness Details 31year-old female today for follow-up visit, for diabetes type 1 management in the setting of end-stage renal disease. She has been using Lantus 10 units at bedtime and 5 units on dialysis days and Humalog 6-8 units with meals. Lola download from 10/03/2022 to 10/16/2022 shows Lola is active 77% of the time. Average glucose is 298 with G mi of 10.4% and variability 31.8%. 14% in target range with 83% hyperglycemia no hypoglycemia. Pattern shows hyperglycemia throughout the with increases after breakfast and after dinner Had hypoglycemia She has type 1 diabetes diagnosed at age 11. Diabetes has been complicated with diabetic nephropathy with end-stage renal disease and hemodialysis. She has diabetic neuropathy, hypertension dyslipidemia. She had recent amputation of the right food 4th and 5th toes. She has been on hemodialysis Sunday and Fridays for about 2 years. saw optho this yr last visit last yr. neds to make appt - no retinopathy Laboratory Tests 07/09/18 06/26/19 08/12/19 11:01 15:07 05:59 Hgb Hct Sodium Potassium Carbon Dioxide BUN Creatinine Estim Creat Clear Calc Random Glucose Fasting Glucose Hemoglobin A1c 9.3 Hgb A1c Fingerstic k 10.9 Calcium AST ALT 25-OH Vitamin D To komal 4.2 TSH 3rd Generation 01/13/20 01/14/20 01/14/20 11:26 05:45 05:45 Hgb 11.1 L Hct 35.0 L Sodium Potassium Carbon Dioxide BUN Creatinine 8.53 H* 10.23 H* Estim Creat Clear Calc Random Glucose Fasting Glucose 370 H* D Hemoglobin A1c Hgb A1c Fingerstic k Calcium AST 18 D ALT 14 25-OH Vitamin D To komal TSH 3rd Generation 1.83 01/15/20 11:22 Hgb Hct Sodium 130 L Potassium 4.5 Carbon Dioxide 21 L BUN 33 H Creatinine Estim Creat Clear Calc 9.9 Random Glucose 206 H Fasting Glucose Hemoglobin A1c Hgb A1c Fingerstic k Calcium 9.2 AST ALT 25-OH Vitamin D To komal [facility] 3rd Generation [facility] Medical History Anemia Diabetes type 1, uncontrolled Diabetic polyneuropathy associated with type 1 diabetes mellitus Dyslipidemia ESRD (end stage renal disease) ESRD (end stage renal disease) ESRD (end stage renal disease) on dialysis ESRD (end stage renal disease) on dialysis HTN (hypertension) Hypertension Hypoglycemia due to type 1 diabetes mellitus 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 Kidney failure Surgical History History of hemodialysis Hx of amputation Hx of section Hx of eye surgery Family History Father Diabetes mellitus Mother Thyroid disease Pre-diabetes HTN (hypertension) Acute depression Arthritis Social History Household Members: Significant Other Household Members Other:: / - 6 y/o daughter Housing: Apartment Do you presently have visiting nurse or other home services: No Alcohol intake: never Patient Tobacco Use Status: Never used Tobacco service: No Current occupational status: disabled Physical Exam Vital Signs: Last Vital Signs Pulse 84 10/26/22 10:11 BP 108/62 10/26/22 10:11 Pulse Ox 98 10/26/22 10:11 Oxygen Delivery Method Room Air 10/26/22 10:11 BMI result Body Mass Index 26.1 Absence of Cushingoid features. Absence of acromegalic features. Neck exam reveals nl size thyroid about 15 gms. No thyroid nodules palpable. No carotid bruits present. Lungs CTA. Heart S1 S2, Reg R/R. No M/R/ G. Skin exam reveals absence of vitiligo or acanthosis nigricans. Abdominal exam reveals Soft NT/ND with NA BS. No organomegaly present. Extrem Other: There is amputation of the right 4th and 5th toes. Visual exam of foot performed. No ulcerations or open lesions. No onchomycosis, no callouses.Pulses 2 + distally. Sensation intact to monofilament exam. Vibratory sensation sensed 10 seconds in right, 10 seconds in left with 128 Hz tuning fork Office Meds Humalog U-100 Insulin Performing Provider: Shiva Perez MD Administered by: Ivy Ng LPN on 10/26/22 10:44 Dose Route Admin Location Lot Number Expiration Date [facility] Director Of Restaurants 10 unit subcut right upper arm [id number] 01/25/24 8613-7121-85 [employer] Results AMB Hemoglobin A1c AMB Hemoglobin A1c 9.7 % Last Edit by Isamar Lopez MA on 10/26/22 10:29 Results Reviewed Results Reviewed: 10/26/22 10:19 Glucose, Whole Blood Routine 10/26/22 11:39 Glucose, Whole Blood Routine Laboratory Last Values Glucose (Clinic) 224 mg/dL (60-115) H 10/26/22 11:39 Hgb A1c (Clinic) 9.7 % (4.0-6.0) H 10/26/22 10:25 Assessment & Plan Assessment & Plan (1) Diabetes type 1, uncontrolled: Code(s): E10.65 - Type 1 diabetes mellitus with hyperglycemia Plan: This is a 32-year-old female with a history of type 1 diabetes longstanding treated with basal-bolus insulin with poor glycemic control and known microvascular complications namely diabetic nephropathy with end-stage renal disease and hemodialysis.and diabetic neuropathy. H The plan is to give 10 units of Humalog insulin now for point care >400 . Repeat point care was 224. Will increase Lantus to 14 units and have patient take an extra 2 or 3 units of Humalog prior to breakfast and dinner. Will reinstate Lola. Will also have her see our book salesman . I once again went over the correlation of poor glycemic control with progression of complications. We talked about possible integration of the Dexcom with tandem or Omnipod pump. . Orders: Orders AMB Insulin Lispro Injection Practice Supplied Today E10.65 - Type 1 diabetes mellitus with hyperglycemia AMB Hemoglobin A1c Today Z13.9 - Encounter for screening, unspecified Coding Level of Care Code Est Pt Level 4 (14455) Diagnoses Diabetes type 1, uncontrolled E10.65
[2022-10-26 10:23] LABS: Glucose, Whole Blood 431 mg/dL (60-115)
[2022-10-26 13:01] LABS: Glucose, Whole Blood 224 mg/dL (60-115)
== END 2022-10-26 10:42 | disposition home or self-care (01) ==
PROVIDERS: PCP Student in an Organized Health Care Education/Training Program; Visit Provider Internal Medicine Endocrinology, Diabetes & Metabolism
DX: E10.65 Type 1 diabetes mellitus with hyperglycemia (principal); Z13.9 Encounter for screening, unspecified
CPT/HCPCS: 99214

== ENCOUNTER → 2022-10-26 10:06 | Outpatient (BNVA) | payer MEDICARE, MEDICAID, SELFPAY | PROVIDERS: Visit Provider Internal Medicine Endocrinology, Diabetes & Metabolism | DX: E10.65 Type 1 diabetes mellitus with hyperglycemia (principal); Z79.4 Long term (current) use of insulin | CPT/HCPCS: 82947; 83036; 96372; 99212; J1815 ==

== ENCOUNTER 2022-11-09 09:18 | Outpatient (REF) | payer MEDICARE, MEDICAID, SELFPAY ==
--- NOTE | ~2022-11-09 | CT_ITS ---
EXAMINATION: CT ABDOMEN AND PELVIS WITHOUT CONTRAST CLINICAL INFORMATION: Ascites COMPARISON: CT abdomen pelvis from 01/13/2020, ultrasound pelvis from 08/25/2021, CT chest from nd 06/02/ TECHNIQUE: Multidetector volumetric imaging was performed from the superior aspect of the liver through the pubic symphysis. Sagittal and coronal reformatted images were obtained on the technologist's workstation. This CT examination was performed using dose optimization techniques as appropriate, variously including the following: *Automated exposure control *Adjustment of mA and/or kV according to patient size (this includes techniques or standardized protocols for targeted exams where dose is matched to indication/reason for exam; i.e. extremities or head) *Use of iterative reconstruction technique DLP: 370 mGy-cm FINDINGS: LUNG BASES: L-spine granuloma right lower lobe measuring 4 mm. A few partially visualized bilateral pulmonary nodules are redemonstrated in the right middle lobe measuring up to 2 mm, mostly subsolid stable. Slight tree-in-bud nodularity involving the right middle lobe which may reflect evolving infectious/inflammatory etiology. No pneumothorax. Valvular and coronary artery calcifications are noted. LIVER, GALLBLADDER, AND BILIARY TREE: Liver is mildly enlarged. No focal hepatic lesion or biliary ductal dilatation is present. The gallbladder is unremarkable with no evidence of radiopaque gallstones, gallbladder wall thickening, or obvious pericholecystic inflammatory changes. PANCREAS: Unremarkable. SPLEEN: Unremarkable. ADRENAL GLANDS: Unremarkable. KIDNEYS AND URETERS: The kidneys are normal in size, shape, and attenuation. No hydronephrosis, hydroureter, or calculi seen. No perinephric stranding. BLADDER: Unremarkable. GASTROINTESTINAL TRACT: Mild fecal loading throughout the colon. The small and large bowel are unremarkable. The appendix is unremarkable. PERITONEUM: No ascites noted. ABDOMINAL WALL: Small fat filled umbilical hernia. LYMPH NODES: A few mildly prominent though nonenlarged bilateral inguinal mesenteric and periaortic lymph nodes are noted, not enlarged per size criteria. VASCULAR: Severe atherosclerotic calcifications of all visualized vasculature, far advanced for patient's age. PELVIC VISCERA: Anteverted uterus. Left adnexal/ovarian hypodense focus measuring 2.6 cm. Findings are overwhelmingly likely to represent a normal ovarian follicle. No follow-up imaging recommended. OSSEOUS STRUCTURES: Unremarkable. CT/CT abdomen pelvis wo IV con IMPRESSION: 1. No acute process of the abdomen or pelvis identified. 2. A few partially visualized bilateral pulmonary nodules are redemonstrated in the right middle lobe measuring up to 2 mm, mostly subsolid stable. Slight tree-in-bud nodularity involving the right middle lobe which may reflect evolving versus resolving infectious/inflammatory etiology. 3. Severe atherosclerotic calcifications of all visualized vasculature, far advanced for patient's age. 4. Left adnexal/ovarian hypodense focus measuring 2.6 cm. Findings are overwhelmingly likely to represent a normal ovarian follicle. No follow-up imaging recommended. 5. No ascites visualized.
[2022-11-09] MEDS: Barium Sulfate Oral (Vanilla) 450 ML ORAL.SUSP 900 ML PO (12:13)
== END 2022-11-09 09:19 | disposition home or self-care (01) ==
LOC: HO.CT 09:18
PROVIDERS: PCP Student in an Organized Health Care Education/Training Program; Visit Provider Student in an Organized Health Care Education/Training Program
DX: R18.8 Other ascites (principal)
CPT/HCPCS: 74176

== ENCOUNTER 2022-11-21 16:30 | Outpatient (REF) | payer MEDICARE, MEDICAID, SELFPAY ==
[2022-11-21 16:44] LABS: MANUAL DIFF FLAG NO
[2022-11-21 18:00] LABS: Basophils Absolute Auto 0.1 X10*3/uL (0.0-0.2); Basophils Percent Auto 0.8 % (0-2); Eosinophils Absolute Auto 0.5 X10*3/uL (0.0-0.4); Eosinophils Percent Auto 4.5 % (0-4); Hematocrit 35.2 % (37.0-47.0); Hemoglobin 11.7 g/dl (12.0-16.0); Imm Gran Abs Auto 0.06 X10*3/uL (0.00-0.03); Imm Gran Pct Auto 0.5 % (0.0-0.4); Lymphocytes Absolute Auto 2.6 X10*3/uL (1.2-4.9); Lymphocytes Percent Auto 21.5 % (20-40); Mean Corpuscular HGB Conc 33.2 g/dl (31.0-35.0); Mean Corpuscular Hemoglobin 30.7 pg (27.0-33.0); Mean Corpuscular Volume 92.4 fL (80.0-98.0); Mean Platelet Volume 11.1 fL (9.4-12.3); Monocytes Absolute Auto 1.2 X10*3/uL (0.1-1.2); Monocytes Percent Auto 9.9 % (2-11); Neutrophils Absolute Auto 7.5 x10*3/uL (2.0-8.3); Neutrophils Percent Auto 62.8 % (45-73); Platelet Count 279 X10*3/uL (160-400); Red Blood Count 3.81 X10*6/uL (4.20-5.50); Red Cell Distribution Width 13.4 % (11.0-16.0); White Blood Count 11.9 X10*3/uL (4.8-10.8)
[2022-11-21 18:04] LABS: INTERNATIONAL NORM RATIO 1.2 (0.9-1.1); Prothrombin Time 14.2 SEC (11.1-13.3)
[2022-11-21 19:38] LABS: Alanine Aminotransferase 28 U/L (0-31); Alkaline Phosphatase 167 U/L (39-117); Anion Gap 19 (12-20); Aspartate Amino Transferase 23 U/L (5-31); Bilirubin Total 0.4 mg/dL (0.0-1.0); Blood Urea Nitrogen 42 mg/dL (9-16); Calcium 9.2 mg/dL (8.4-10.2); Carbon Dioxide 29 mmol/L (22-29); Chloride 90 mmol/L (96-108); Gamma Glutamyl Transpeptidase 116 U/L (7-33); Glucose Random 206 mg/dL (60-115); Potassium 4.2 mmol/L (3.3-5.1); Sodium 134 mmol/L (135-145); Total Protein 8.7 g/dL (6.5-8.0)
[2022-11-21 19:53] LABS: Estimated Glomerular Filt Rate 6
== END 2022-11-21 16:31 | disposition home or self-care (01) ==
LOC: HO.LAB 16:30
PROVIDERS: PCP Student in an Organized Health Care Education/Training Program; Visit Provider Internal Medicine
DX: R74.8 Abnormal levels of other serum enzymes (principal)
CPT/HCPCS: 36415; 80053; 82977; 85025; 85610

== ENCOUNTER 2023-01-25 08:54 | Outpatient (AMB) | payer MEDICARE, MEDICAID, SELFPAY ==
[2023-01-25 08:56] VITALS: BP 110/82; PULSE 88; BMI 26.6
--- NOTE | 2023-01-25 08:56 | A.OFFVIS_ITS ---
Intake Vital Signs 01/25/23 08:56 Height 5 ft 1 in Weight 140 lb 10.479 oz BMI 26.6 BP 110/82 Blood Pressure Location Lt brachial Position Sitting Pulse 88 Pulse Source Pulse Oximeter Intake Visit Reasons: DM Intake Note: Patient present today to follow up on Type 1 Diabetes Mellitus. Patient receives DME supplies through: [employer] Last Diabetic Eye exam: 11/2022 Last Podiatry Visit: None Random Glucose: 221mg/dl HgA1C: 10.6% Air Dispatcher Required: No Accompanied by: Self / Same As Patient Allergies icodextrin Allergy (Mild, Verified 01/25/23 09:08) Rash CLOROXINE Allergy (Unknown, Uncoded 10/26/22 10:11) RASH HPI HPI Comments History of Present Illness Details 32year-old female today for follow-up vi sit, for diabetes type 1 management in the setting of end-stage renal disease. She has been using Lantus 18 units at bedtime and 5 units on dialysis days and Humalog 6-8 units with meals. Lola download from 01/12/23-01/25/23 shows Lola is active 83% of the time. Ave rage glucose is 290 with G mi of 10.2% and variability 31.1%. 14% in target range with 86% hyperglycemia no hypoglycemia. Pattern shows hyperglycemia throughout the with increases after breakfast and after dinner Had rare hypoglycemia She has type 1 diabetes diagnosed at age 11. Diabetes has been complicated with diabetic nephropathy with end-stage renal disease and hemodialysis. She has di abetic neuropathy, hypertension dyslipidemia. She had recent amputation of the right food 4th and 5th toes. She has been on hemodialysis Sunday and Fridays for about 2 years. saw optho this yr last visit 2 mos ago . - no retinopathy Laboratory Tests 07/09/18 06/26/19 08/12/19 11:01 15:07 05:59 Hgb Hct Sodium Potassium Carbon Dioxide BUN Creatinine Estim Creat Clear Calc Random Glucose Fasting Glucose Hemoglobin A1c 9.3 Hgb A1c Fingerstic k 10.9 Calcium AST ALT 25-OH Vitamin D To komal 4.2 TSH 3rd Generation 01/13/20 01/14/20 01/14/20 11:26 05:45 05:45 Hgb 11.1 L Hct 35.0 L Sodium Potassium Carbon Dioxide BUN Creatinine 8.53 H* 10.23 H* Estim Creat Clear Calc Random Glucose Fasting Glucose 370 H* D Hemoglobin A1c Hgb A1c Fingerstic k Calcium AST 18 D ALT 14 25-OH Vitamin D To komal TSH 3rd Generation 1.83 01/15/20 11:22 Hgb Hct Sodium 130 L Potassium 4.5 Carbon Dioxide 21 L BUN 33 H Creatinine Estim Creat Clear Calc 9.9 Random Glucose 206 H Fasting Glucose Hemoglobin A1c Hgb A1c Fingerstic k Calcium 9.2 AST ALT 25-OH Vitamin D To komal TSH 3rd Generation [facility] Medical History Anemia Diabetes type 1, uncontrolled Diabetic polyneuropathy associated with type 1 diabetes mellitus Dyslipidemia ESRD (end stage renal disease) ESRD (end stage renal disease) ESRD (end stage renal disease) on dialysis ESRD (end stage renal disease) on dialysis HTN (hypertension) Hypertension Hypoglycemia due to type 1 diabetes mellitus 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 Kidney failure Surgical History History of hemodialysis Hx of amputation Hx of section Hx of eye surgery Family History Father Diabetes mellitus Mother Thyroid disease Pre-diabetes HTN (hypertension) Acute depression Arthritis Social History Household Members: Significant Other Household Members Other:: / - 6 y/o daughter Housing: Apartment Do you presently have visiting nurse or other home services: No Alcohol intake: never Patient Tobacco Use Status: Never used Tobacco service: No Current occupational status: disabled Physical Exam Absence of Cushingoid features. Absence of acromegalic features. Neck exam reveals nl size thyroid about 15 gms. No thyroid nodules palpable. No carotid bruits present. Lungs CTA. Heart S1 S2, Reg R/R. No M/R/ G. Skin exam reveals absence of vitiligo or acanthosis nigricans. Abdominal exam reveals Soft NT/ND with NA BS. No organomegaly present. Extrem Other: There is amputation of the right 4th and 5th toes. Visual exam of foot performed. No ulcerations or open lesions. No onchomycosis, no callouses.Pulses 2 + distally. Sensation intact to monofilament exam. Vibratory sensation sensed 10 seconds in right, 10 seconds in left with 128 Hz tuning fork Results AMB Hemoglobin A1c AMB Hemoglobin A1c 10.6 % Last Edit by Iliana Clifton on 01/25/23 09:15 Assessment & Plan Assessment & Plan (1) Diabetes type 1, uncontrolled: Code(s): E10.65 - Type 1 diabetes mellitus with hyperglycemia Plan: This is a 32-year-old female with a history of type 1 diabetes longstanding treated with basal-bolus insulin with poor glycemic control and known microvascular complications namely diabetic nephropathy with end-stage renal disease and hemodialysis.and diabetic neuropathy. H The plan is to increase Lantus to 18 units and by 4 units every 3 days to bring point care <180 fasting. . Will also have her see our tobacco prevention health educator . I once again went over the correlation of poor glycemic control with progression of complications. We talked about possible integration of the Dexcom with tandem or Omnipod pump. . Because, currently, there is no tobacco prevention health educator here and we are short staffed, I did refer the patient for 2nd opinion and follow-up to [facility] discuss pump initiation going forward Orders: Orders AMB Hemoglobin A1c Today E10.649 - Type 1 diabetes mellitus with hypoglycemia without coma Referrals Podiatry Referral E10.65 - Type 1 diabetes mellitus with hyperglycemia Endocrinology Referral E10.65 - Type 1 diabetes mellitus with hyperglycemia Coding Level of Care Code Est Pt Level 4 (36498) Diagnoses Diabetes type 1, uncontrolled E10.65
[2023-01-25 09:10] LABS: Glucose, Whole Blood 221 mg/dL (60-115)
== END 2023-01-25 09:17 | disposition home or self-care (01) ==
PROVIDERS: PCP Internal Medicine; Visit Provider Internal Medicine Endocrinology, Diabetes & Metabolism
DX: E10.65 Type 1 diabetes mellitus with hyperglycemia (principal); E10.649 Type 1 diabetes mellitus with hypoglycemia without coma
CPT/HCPCS: 99214

== ENCOUNTER → 2023-01-25 08:54 | Outpatient (BNVA) | payer MEDICARE, MEDICAID, SELFPAY | PROVIDERS: PCP Internal Medicine; Visit Provider Internal Medicine Endocrinology, Diabetes & Metabolism | DX: E10.65 Type 1 diabetes mellitus with hyperglycemia (principal) | CPT/HCPCS: 82947; 83036; 99212 ==

== ENCOUNTER 2023-02-08 10:46 | Outpatient (REF) | payer MEDICARE, MEDICAID, SELFPAY ==
[2023-02-08 11:40] LABS: MANUAL DIFF FLAG NO
[2023-02-08 11:43] LABS: Basophils Absolute Auto 0.1 X10*3/uL (0.0-0.2); Basophils Percent Auto 0.6 % (0-2); Eosinophils Absolute Auto 1.2 X10*3/uL (0.0-0.4); Eosinophils Percent Auto 9.3 % (0-4); Hematocrit 30.6 % (37.0-47.0); Imm Gran Abs Auto 0.06 X10*3/uL (0.00-0.03); Imm Gran Pct Auto 0.5 % (0.0-0.4); Lymphocytes Absolute Auto 2.6 X10*3/uL (1.2-4.9); Lymphocytes Percent Auto 19.6 % (20-40); Mean Corpuscular HGB Conc 32.7 g/dl (31.0-35.0); Mean Corpuscular Hemoglobin 30.5 pg (27.0-33.0); Mean Corpuscular Volume 93.3 fL (80.0-98.0); Mean Platelet Volume 10.7 fL (9.4-12.3); Monocytes Absolute Auto 1.1 X10*3/uL (0.1-1.2); Monocytes Percent Auto 8.1 % (2-11); Neutrophils Absolute Auto 8.1 x10*3/uL (2.0-8.3); Neutrophils Percent Auto 61.9 % (45-73); Platelet Count 379 X10*3/uL (160-400); Red Blood Count 3.28 X10*6/uL (4.20-5.50); Red Cell Distribution Width 14.6 % (11.0-16.0); White Blood Count 13.1 X10*3/uL (4.8-10.8)
[2023-02-08 12:26] LABS: HCG Quantitative < 2 mIU/mL; TSH reflex Free T4 0.27 uIU/mL (0.32-4.0)
[2023-02-08 13:01] LABS: Free T4 (Free Thyroxine) 1.49 ng/dL (0.71-1.85)
[2023-02-08 18:10] LABS: CT PCR NOT DETECTED (Not Detect.); NG PCR NOT DETECTED (Not Detect.)
[2023-02-09 14:10] LABS: BV Int Neg Control Negative (Negative); BV Int Pos Control Positive (Positive)
== END 2023-02-08 10:47 | disposition home or self-care (01) ==
LOC: HO.HHCL 10:46
PROVIDERS: Visit Provider Advanced Practice Midwife
DX: Z30.09 Encounter for other general counseling and advice on contraception (principal); N93.9 Abnormal uterine and vaginal bleeding, unspecified; Z20.2 Contact with and (suspected) exposure to infections with a predominantly sexual mode of transmission; N94.89 Other specified conditions associated with female genital organs and menstrual cycle
CPT/HCPCS: 0353U; 36415; 84439; 84443; 84702; 85025; 87480; 87510; 87660

== ENCOUNTER 2023-02-20 12:38 | Outpatient (REF) | payer MEDICARE, MEDICAID, SELFPAY ==
[2023-02-20 14:05] LABS: MANUAL DIFF FLAG NO
[2023-02-20 14:15] LABS: Basophils Absolute Auto 0.1 X10*3/uL (0.0-0.2); Basophils Percent Auto 0.9 % (0-2); Eosinophils Absolute Auto 0.6 X10*3/uL (0.0-0.4); Eosinophils Percent Auto 4.9 % (0-4); Hematocrit 33.1 % (37.0-47.0); Hemoglobin 10.8 g/dl (12.0-16.0); Imm Gran Abs Auto 0.05 X10*3/uL (0.00-0.03); Imm Gran Pct Auto 0.4 % (0.0-0.4); Lymphocytes Absolute Auto 2.4 X10*3/uL (1.2-4.9); Lymphocytes Percent Auto 18.9 % (20-40); Mean Corpuscular HGB Conc 32.6 g/dl (31.0-35.0); Mean Corpuscular Hemoglobin 30.5 pg (27.0-33.0); Mean Corpuscular Volume 93.5 fL (80.0-98.0); Mean Platelet Volume 10.7 fL (9.4-12.3); Monocytes Absolute Auto 0.8 X10*3/uL (0.1-1.2); Monocytes Percent Auto 6.4 % (2-11); Neutrophils Absolute Auto 8.8 x10*3/uL (2.0-8.3); Neutrophils Percent Auto 68.5 % (45-73); Platelet Count 391 X10*3/uL (160-400); Red Blood Count 3.54 X10*6/uL (4.20-5.50); Red Cell Distribution Width 14.4 % (11.0-16.0); White Blood Count 12.9 X10*3/uL (4.8-10.8)
[2023-02-20 14:58] LABS: Erythrocyte Sedimentation Rate 82 MM/HR (0-20)
[2023-02-22 02:20] LABS: Immunoglobulin E 61 kU/L (<OR=114)
== END 2023-02-20 12:39 | disposition home or self-care (01) ==
LOC: HO.LAB 12:38
PROVIDERS: PCP Student in an Organized Health Care Education/Training Program; Referring Provider Student in an Organized Health Care Education/Training Program; Visit Provider Hospitalist
DX: J45.909 Unspecified asthma, uncomplicated (principal); T78.40XA Allergy, unspecified, initial encounter; R91.8 Other nonspecific abnormal finding of lung field; N18.6 End stage renal disease; Z99.2 Dependence on renal dialysis; Z79.899 Other long term (current) drug therapy
CPT/HCPCS: 36415; 82785; 85025; 85652; 86003; 99202

== ENCOUNTER 2023-02-20 12:38 | Outpatient (AMB) | payer MEDICARE, MEDICAID, SELFPAY ==
[2023-02-20 13:17] VITALS: BP 130/78; PULSE 94; RESP 12; O2SAT 98; BMI 27.4
--- NOTE | 2023-02-20 13:17 | MHC.OFFVIS ---
Intake Vital Signs 02/20/23 13:17 Height 5 ft 1 in Weight 145 lb BMI 27.4 BP 130/78 Blood Pressure Location Rt brachial Position Sitting Respiration 12 Pulse 94 Pulse Source Pulse Oximeter Pulse Oximetry (%) 98 Oxygen Delivery Method Room Air Intake Visit Reasons: Abnormal CT scan Allergies icodextrin Allergy (Mild, Verified 02/20/23 13:20) Rash oxycodone Adverse Reaction (Severe, Verified 02/20/23 13:20) rash tramadol Adverse Reaction (Severe, Verified 02/20/23 13:20) rash CLOROXINE Allergy (Unknown, Uncoded 02/20/23 13:20) RASH Medication List - Last Reconciled 02/20/23 by Martha Teague LPN blood sugar diagnostic (Mobile [employer] Precision Ian Strips) once a day for calibration carvedilol 37.5 mg PO BID flash glucose scanning reader ([place] PaintStyle Lola 2 Chinle) As directed flash glucose sensor (FreeStyle Lola 2 Sensor kit) Every 14 days hydralazine 1 tab PO BID insulin aspart U-100 (Novolog U-100 Insulin aspart) 4-10 units TID insulin glargine (Lantus Solostar U-100 Insulin) 18 units (0.18 mL) subcut DAILY lancets (FreeStyle Lancets) As directed 3 times a day losartan 1 tab PO BID multivitamin (Daily-Alyx tablet) 1 tab PO DAILY nifedipine ER 90 mg PO DAILY HPI HPI Comments History of Present Illness Details the patient is here for pulmonary evaluation. The patient is a 32 year woman with known end-stage renal disease on dialysis who apparently has been evaluated for kidney transplantation. As part of the workup the patient did undergo CT scan of the abdomen noting some small right lower lobe pulmonary nodules on the lung windows. Some of the nodules appear to be more of 3 in but. Therefore, the patient was referred to Pulmonary. Currently patient denies any significant shortness of breath. She does have significant nasal congestion and she does have underlying allergies. She has a hard time breathing because of the significant nasal congestion. The patient had been receiving allergy shots in the past. She denies any significant wheezing. The patient does not have any inhalers at this time. I did review her CT scan of the chest demonstrating evidence of tree-in-bud suggesting bronchiolitis. It could have been related to a viral syndrome. The patient also had a CT scan of the chest from October 2021 which white also personally reviewed. At that point the patient had Significant right lower lobe pneumonia. no pulmonary nodules were identified but there were in the however by the airspace disease. The patient will need a formal CT scan of the chest in the near future. [facility] Medical History (Updated 02/20/23 @ 19:15 by Maico Zabala MD) Pulmonary nodules Chronic allergic rhinitis Allergies Kidney failure ESRD (end stage renal disease) on dialysis Anemia HTN (hypertension) ESRD (end stage renal disease) 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 Hypoglycemia due to type 1 diabetes mellitus Hypertension Dyslipidemia Diabetic polyneuropathy associated with type 1 diabetes mellitus Diabetes type 1, uncontrolled ESRD (end stage renal disease) on dialysis ESRD (end stage renal disease) Surgical History History of hemodialysis Hx of amputation Hx of eye surgery Hx of section Family History Father Diabetes mellitus Mother Thyroid disease Pre-diabetes HTN (hypertension) Acute depression Arthritis Social History Household Members: Significant Other Household Members Other:: / - 6 y/o daughter Housing: Apartment Do you presently have visiting nurse or other home services: No Alcohol intake: never Patient Tobacco Use Status: Never used Tobacco service: No Current occupational status: disabled Review of Systems Const Denies fever(s) Eyes Denies change in vision ENT Reports nasal congestion, Reports nasal discharge, Reports nasal obstruction and Reports post nasal drip Card Denies chest pain Resp Reports cough and Denies wheezing GI Reports no additional complaints Reports as per HPI Musc Reports no additional complaints Skin/Breast Denies rash Neuro Reports no additional complaints Binh/Lymph Denies lymphadenopathy Aller/Immun Denies wheezing Physical Exam Vital Signs: Last Vital Signs Pulse 94 02/20/23 13:17 Resp 12 02/20/23 13:17 BP 130/78 02/20/23 13:17 Pulse Ox 98 02/20/23 13:17 Oxygen Delivery Method Room Air 02/20/23 13:17 BMI result Body Mass Index 27.4 Const General: comfortable HEENT General nose exam: Abnormal mucous membranes and turbinates present erythematous and no nasal polyps Neck Neck: Yes supple Chest Chest palpation & inspection: normal inspection of the chest Resp Effort & Inspection: normal respiratory effort Auscultation: clear to auscultation bilaterally Cardio Heart sounds: S1 normal heart sound present and S2 normal heart sound present GI Palpation (GI): Soft to palpation Skin General skin exam: no rashes or lesions noted Extrem General: Yes no clubbing, cyanosis or edema Assessment & Plan Assessment & Plan (1) Chronic allergic rhinitis: Code(s): J30.9 - Allergic rhinitis, unspecified (2) Allergies: Code(s): T78.40XA - Allergy, unspecified, initial encounter Qualifiers: Encounter type: initial encounter Qualified Code(s): T78.40XA - Allergy, unspecified, initial encounter (3) Pulmonary nodules: Code(s): R91.8 - Other nonspecific abnormal finding of lung field Plan start claritin start Singulair start fluticasone nasal spray bloodwork/ allergy testing plan to repeat CT chest next year. We will schedule during her f/u consider pulmonary function studies F/U 2-3 months Orders: Orders Rast Allergen Today J30.9 - Allergic rhinitis, unspecified, T78.40XA - Allergy, unspecified, initial encounter Complete Blood Count Auto Diff Today J30.9 - Allergic rhinitis, unspecified, T78.40XA - Allergy, unspecified, initial encounter Erythrocyte Sedimentation Rate Today J30.9 - Allergic rhinitis, unspecified, T78.40XA - Allergy, unspecified, initial encounter Immunoglobulin E Today J30.9 - Allergic rhinitis, unspecified, T78.40XA - Allergy, unspecified, initial encounter Medications: New fluticasone propionate 50 mcg/actuation 2 sprays intranasal DAILY 30 days 15.8 mL 11RF J31.0 - Chronic rhinitis montelukast (Singulair) 10 mg PO BEDTIME 30 days 30 tabs 11RF J45.909 - Unspecified asthma, uncomplicated loratadine (Claritin) 10 mg PO DAILY 30 days 30 tabs 11RF J30.2 - Other seasonal allergic rhinitis, J45.909 - Unspecified asthma, uncomplicated Coding Level of Care Code New Pt Level 4 (25872) Diagnoses Chronic allergic rhinitis J30.9 Allergy, initial encounter T78.40XA Encounter type: initial encounter Pulmonary nodules R91.8 Time Spent (min) 35
== END 2023-02-20 13:47 | disposition home or self-care (01) ==
PROVIDERS: PCP Student in an Organized Health Care Education/Training Program; Referring Provider Student in an Organized Health Care Education/Training Program; Visit Provider Hospitalist
DX: J30.9 Allergic rhinitis, unspecified (principal); T78.40XA Allergy, unspecified, initial encounter; R91.8 Other nonspecific abnormal finding of lung field
CPT/HCPCS: 99204

== ENCOUNTER 2023-02-28 08:48 | Outpatient (REF) | payer MEDICARE, MEDICAID, SELFPAY ==
[2023-02-28 09:49] LABS: MANUAL DIFF FLAG NO
[2023-02-28 10:16] LABS: Basophils Absolute Auto 0.1 X10*3/uL (0.0-0.2); Basophils Percent Auto 0.6 % (0-2); Eosinophils Absolute Auto 0.6 X10*3/uL (0.0-0.4); Eosinophils Percent Auto 4.5 % (0-4); Hematocrit 30.5 % (37.0-47.0); Hemoglobin 9.9 g/dl (12.0-16.0); Imm Gran Abs Auto 0.04 X10*3/uL (0.00-0.03); Imm Gran Pct Auto 0.3 % (0.0-0.4); Lymphocytes Absolute Auto 2.4 X10*3/uL (1.2-4.9); Lymphocytes Percent Auto 18.4 % (20-40); Mean Corpuscular HGB Conc 32.5 g/dl (31.0-35.0); Mean Corpuscular Hemoglobin 30.3 pg (27.0-33.0); Mean Corpuscular Volume 93.3 fL (80.0-98.0); Mean Platelet Volume 11.3 fL (9.4-12.3); Monocytes Absolute Auto 0.8 X10*3/uL (0.1-1.2); Monocytes Percent Auto 6.3 % (2-11); Neutrophils Percent Auto 69.9 % (45-73); Platelet Count 264 X10*3/uL (160-400); Red Blood Count 3.27 X10*6/uL (4.20-5.50); Red Cell Distribution Width 14.6 % (11.0-16.0); White Blood Count 12.8 X10*3/uL (4.8-10.8)
[2023-02-28 11:07] LABS: HCG Quantitative < 2 mIU/mL; TSH reflex Free T4 0.99 uIU/mL (0.32-4.0)
[2023-03-06 20:18] LABS: Strongyloides Antibody IgG NEGATIVE
== END 2023-02-28 08:49 | disposition home or self-care (01) ==
LOC: HO.HHCL 08:48
PROVIDERS: Visit Provider Student in an Organized Health Care Education/Training Program
DX: D72.829 Elevated white blood cell count, unspecified (principal); N93.9 Abnormal uterine and vaginal bleeding, unspecified; N94.89 Other specified conditions associated with female genital organs and menstrual cycle; Z11.3 Encounter for screening for infections with a predominantly sexual mode of transmission; Z13.29 Encounter for screening for other suspected endocrine disorder
CPT/HCPCS: 36415; 84443; 84702; 85025; 86682

== ENCOUNTER 2023-03-15 10:30 | Outpatient (REF) | payer MEDICARE, MEDICAID, SELFPAY ==
--- NOTE | ~2023-03-15 | MM_ITS ---
EXAMINATION: MM DIAGNOSTIC DIGITAL BREAST TOMOSYNTHESIS, BILATERAL US BREAST LIMITED, BILATERAL MAMMOGRAPHY: CLINICAL INFORMATION: 32-year-old diabetic complaining of palpable foci of abnormality, 2 in the right breast and 2 in the left breast. These have been marked by BBs. COMPARISON: Mammography: 02/10/2021 TECHNIQUE: Digital breast tomosynthesis is performed in both the craniocaudal and mediolateral oblique views along with computer-aided detection (CAD). Synthesized 2D images are generated from the tomosynthesis. FINDINGS: The breasts are extremely dense, which lowers the sensitivity of mammography (ACR BI-RADS breast composition Category d). There are extensive vascular calcifications throughout both breasts, as well as dystrophic calcifications. Previously seen punctate pseudocalcifications in the axillary regions are no longer present. No definite correlate to the bilateral palpable foci of concern are identified on mammography in either breast. Parenchymal pattern is stable but extremely dense. No definite masses or areas of architectural distortion identified. No suspicious calcifications seen. ULTRASOUND: CLINICAL INFORMATION: 32-year-old diabetic complaining of palpable foci of abnormality, 2 in the right breast and 2 in the left breast. These have been marked by BBs. COMPARISON: None TECHNIQUE: Targeted sonographic evaluation was performed using a high frequency linear transducer. Attention was given to the palpable foci. Selected archived documentation. FINDINGS: RIGHT BREAST: There is no discrete mass or cystic abnormality. Extensively heterogeneous parenchyma is noted throughout the right breast, with alternating regions of hyper and hypoechoic foci in a configuration most consistent with extensive diabetic mastopathy. LEFT BREAST: There is no discrete mass or cystic abnormality. Extensively heterogeneous parenchyma is noted throughout the right breast, with alternating regions of hyper and hypoechoic foci in a configuration most consistent with extensive diabetic mastopathy. MM/MM tomosynthesis diagnostic BI IMPRESSION: There are no findings suspicious for malignancy in either breast. Extensive bilateral vascular and dystrophic calcifications, and extremely dense breast tissue present, which on ultrasound has a fairly characteristic appearance of diffuse diabetic mastopathy. There is no sonographic or mammographic correlate to the regions of palpable concern. These likely represent foci of diabetic mastopathy. Recommend clinical management. OVERALL ASSESSMENT: Mammography: BI-RADS 2 - Benign Findings Ultrasound: BI-RADS 2 - Benign Findings RECOMMENDATION: 1. Patient should be managed based on the clinical impression. Decision to proceed with biopsy should be based on clinical grounds and degree of clinical concern. 2. Otherwise, routine annual screening mammography. This patient's information was entered into a reminder system with a target due date for their next mammogram.
--- NOTE | ~2023-03-15 | US_ITS ---
EXAMINATION: US PELVIC COMPLETE WITH TV CLINICAL INFORMATION: Abnormal vaginal bleeding COMPARISON: Ultrasound pelvis on 08/25/2021 TECHNIQUE: Real-time transabdominal and transvaginal ultrasound scanning. FINDINGS: Transabdominal and transvaginal ultrasound examination of the pelvis were performed. Uterus: Anteverted; measuring 7.8 cm in length, 3.9 cm in AP diameter and 4.7 cm in width. Uterine cervix measures 4.4 cm in length. Hypoechoic fluid is seen in the cervical canal. Echotexture: Markedly heterogeneous echotexture with extensive echogenic foci compatible with calcifications Endometrial Thickness: 0.21 cm. Right ovary: 3.9 x 2.0 x 2.3 cm (SAG x AP x TRV), calculated volume of 9.5 mL, with normal echotexture. Previously 2.7 x 2.0 x 1.8 cm (SAG x AP x TRV), calculated volume of 5.1 mL Left ovary: 3.8 x 2.2 x 2.3 cm (SAG x AP x TRV), calculated volume of 9.8mL, with normal echotexture. Previously 3.9 x 3.0 x 2.9 cm (SAG x AP x TRV), calculated volume of 17.8 mL No free fluid is present. Limited view of the urinary bladder shows no abnormality. US/US pelvic and transvaginal IMPRESSION: 1. Interval development of markedly heterogeneous echotexture of uterus with possible extensive calcifications, but no discrete mass lesion could be found. 2. Interval appearance of trace hypoechoic fluid in the uterine cervix. 3. Unchanged Normal sonographic appearance of bilateral ovaries. 4. No abnormal pelvic fluid collection is seen.
== END 2023-03-15 10:31 | disposition home or self-care (01) ==
LOC: HO.US 10:30
PROVIDERS: PCP Student in an Organized Health Care Education/Training Program; Visit Provider Advanced Practice Midwife
DX: N93.9 Abnormal uterine and vaginal bleeding, unspecified (principal); N63.25 Unspecified lump in the left breast, overlapping quadrants; N63.15 Unspecified lump in the right breast, overlapping quadrants
CPT/HCPCS: 76642; 76830; 76856; 77062; 77066

== ENCOUNTER 2023-03-15 12:48 | Outpatient (REF) | payer MEDICARE, MEDICAID, SELFPAY | END 2023-03-15 12:49 | disposition home or self-care (01) | LOC: HO.MAMMO 12:48 | PROVIDERS: PCP Student in an Organized Health Care Education/Training Program; Visit Provider Advanced Practice Midwife | DX: Z13.89 Encounter for screening for other disorder (principal) ==

== ENCOUNTER → 2023-03-15 14:30 | Outpatient (BNV) | payer MEDICARE, MEDICAID, SELFPAY | PROVIDERS: PCP Student in an Organized Health Care Education/Training Program; Visit Provider Radiology Diagnostic Radiology | DX: R92.343 Mammographic extreme density, bilateral breasts (principal); R92.1 Mammographic calcification found on diagnostic imaging of breast; N60.11 Diffuse cystic mastopathy of right breast; N60.12 Diffuse cystic mastopathy of left breast | CPT/HCPCS: 76642; 77062; 77066 ==

== ENCOUNTER 2023-05-22 13:56 | Outpatient (REF) | payer MEDICARE, MEDICAID, SELFPAY ==
--- NOTE | ~2023-05-22 | US_ITS ---
EXAMINATION: US CHEST CLINICAL INFORMATION: Upper back lump COMPARISON: None available. TECHNIQUE: Targeted sonographic evaluation of area of palpable lump on the left FINDINGS: There is hypoechoic spindle-shaped 2.8 x 0.7 x 2.9 cm structure suggestive for an appearance of subcutaneous lipoma. The lesion is not vascular. US/US chest IMPRESSION: Subcutaneous lipoma.
== END 2023-05-22 13:57 | disposition home or self-care (01) ==
LOC: HO.US 13:56
PROVIDERS: PCP Student in an Organized Health Care Education/Training Program; Visit Provider Student in an Organized Health Care Education/Training Program
DX: R22.2 Localized swelling, mass and lump, trunk (principal)
CPT/HCPCS: 76604

== ENCOUNTER 2023-06-14 15:08 | Outpatient (AMB) | payer MEDICARE, MEDICAID, SELFPAY ==
--- NOTE | 2023-06-14 15:19 | A.OFFVIS_ITS ---
Intake Vital Signs 06/14/23 15:21 Height 5 ft 1 in Weight 140 lb BMI 26.4 BP 128/60 Blood Pressure Location Rt brachial Position Sitting Pulse 82 Pulse Source Pulse Oximeter Pulse Oximetry (%) 98 Oxygen Delivery Method Room Air Intake Visit Reasons: Pulmonary Nodules Rod Puller Required: No Allergies icodextrin Allergy (Mild, Verified 06/14/23 15:25) Rash oxycodone Adverse Reaction (Severe, Verified 06/14/23 15:25) rash tramadol Adverse Reaction (Severe, Verified 06/14/23 15:25) rash CLOROXINE Allergy (Unknown, Uncoded 06/14/23 15:25) RASH HPI HPI Comments History of Present Illness Details The patient is a 32 year woman with known end-stage renal disease on dialysis who apparently has been evaluated for kidney transplantation. As part of the workup the patient did undergo CT scan of the abdomen noting some small right lower lobe pulmonary nodules on the lung windows. Some of the nodules appear to be more of 3 in but. Therefore, the patient was referred to Pulmonary. Currently patient denies any significant shortness of breath. She does have significant nasal congestion and she does have underlying allergies. She has a hard time breathing because of the significant nasal congestion. The patient had been receiving allergy shots in the past. She denies any significant wheezing. The patient does not have any inhalers at this time. I did review her CT scan of the chest demonstrating evidence of tree-in-bud suggesting bronchiolitis. It could have been related to a viral syndrome. The patient also had a CT scan of the chest from October 2021 which white dulce mahmood reviewed. At that point the patient had Significant right lower lobe pneumonia. no pulmonary nodules were identified but there were in the however by the airspace disease. The patient will need a formal CT scan of the chest in the near future. 06/14/2023 the patient is here for a pulmonary follow-up visit. The patient overall has been feeling better. The singular in the antihistamine therapy has improved his her symptoms significantly. We did evaluate her blood work she continues to have this persistent eosinophilia consistent with eosinophilic asthma. based on the fact that she did better on the allergy medication she does not need to consider biologics at this time. Explained to her that if her symptoms were to worsen biologic injection will be very effective for her. In addition to that we did review her last CT scans. She had a CT scan back in 2021 demonstrating calcified and noncalcified pulmonary nodules and also the CT scan of the abdomen. Will plan to have her return in 6 months and will repeat the CT scan prior to that visit. Meantime she continues to form the peritoneal dialysis. She is still working closely with the [facility] Nephrology transplant team and still awaiting for a donor kidney. 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 Hypoglycemia due to type 1 diabetes mellitus Hypertension Dyslipidemia Diabetic polyneuropathy associated with type 1 diabetes mellitus Diabetes type 1, uncontrolled ESRD (end stage renal disease) on dialysis ESRD (end stage renal disease) Surgical History History of hemodialysis Hx of amputation Hx of eye surgery Hx of section Family History Father Diabetes mellitus Mother Thyroid disease Pre-diabetes HTN (hypertension) Acute depression Arthritis Social History Household Members: Significant Other Household Members Other:: / - 6 y/o daughter Housing: Apartment Do you presently have visiting nurse or other home services: No Alcohol intake: never Patient Tobacco Use Status: Never used Tobacco service: No Current occupational status: disabled Review of Systems Const Denies fever(s) Eyes Denies change in vision ENT Reports nasal congestion, Reports nasal discharge, Reports nasal obstruction and Reports post nasal drip Card Denies chest pain Resp Reports cough and Denies wheezing GI Reports no additional complaints Reports as per HPI Musc Reports no additional complaints Skin/Breast Denies rash Neuro Reports no additional complaints Binh/Lymph Denies lymphadenopathy Aller/Immun Denies wheezing Physical Exam Vital Signs: Last Vital Signs Pulse 82 06/14/23 15:21 BP 128/60 06/14/23 15:21 Pulse Ox 98 06/14/23 15:21 Oxygen Delivery Method Room Air 06/14/23 15:21 BMI result Body Mass Index 26.4 Const General: comfortable HEENT General nose exam: Abnormal mucous membranes and turbinates present erythematous and no nasal polyps Neck Neck: Yes supple Chest Chest palpation & inspection: normal inspection of the chest Resp Effort & Inspection: normal respiratory effort Auscultation: clear to auscultation bilaterally Cardio Heart sounds: S1 normal heart sound present and S2 normal heart sound present GI Palpation (GI): Soft to palpation Skin General skin exam: no rashes or lesions noted Extrem General: Yes no clubbing, cyanosis or edema Assessment & Plan Assessment & Plan (1) Chronic allergic rhinitis: Code(s): J30.9 - Allergic rhinitis, unspecified (2) Allergies: Code(s): T78.40XA - Allergy, unspecified, initial encounter Qualifiers: Encounter type: initial encounter Qualified Code(s): T78.40XA - Allergy, unspecified, initial encounter (3) Pulmonary nodules: Code(s): R91.8 - Other nonspecific abnormal finding of lung field Plan continue claritin continue Singulair continue fluticasone nasal spray bloodwork/ allergy testing CT chest in 6 months F/U 6 months Orders: Orders [address] chest wo IV con 5 Months R91.8 - Other nonspecific abnormal finding of lung field Coding Level of Care Code Est Pt Level 4 (29329) Diagnoses Chronic allergic rhinitis J30.9 Allergy, initial encounter T78.40XA Encounter type: initial encounter Pulmonary nodules R91.8 Time Spent (min) 17
[2023-06-14 15:21] VITALS: BP 128/60; PULSE 82; O2SAT 98; BMI 26.4
== END 2023-06-14 15:46 | disposition home or self-care (01) ==
PROVIDERS: PCP Student in an Organized Health Care Education/Training Program; Visit Provider Hospitalist
DX: J30.9 Allergic rhinitis, unspecified (principal); T78.40XA Allergy, unspecified, initial encounter; R91.8 Other nonspecific abnormal finding of lung field
CPT/HCPCS: 99214

== ENCOUNTER → 2023-06-14 15:08 | Outpatient (BNVA) | payer MEDICARE, MEDICAID, SELFPAY | PROVIDERS: PCP Student in an Organized Health Care Education/Training Program; Visit Provider Hospitalist | DX: R91.8 Other nonspecific abnormal finding of lung field (principal); J30.9 Allergic rhinitis, unspecified; Z79.899 Other long term (current) drug therapy | CPT/HCPCS: 99212 ==

== ENCOUNTER 2023-07-23 07:36 | Outpatient (REF) | payer MEDICARE, MEDICAID, SELFPAY ==
[2023-07-23 08:16] LABS: Cholesterol 168 mg/dL (<200); HDL Cholesterol 25 mg/dL (>40); LDL Cholesterol Calculated 91 mg/dL (<100); Triglycerides 260 mg/dL (<150)
== END 2023-07-23 07:37 | disposition home or self-care (01) ==
LOC: HO.LAB 07:36
PROVIDERS: PCP Student in an Organized Health Care Education/Training Program; Visit Provider Internal Medicine Endocrinology, Diabetes & Metabolism
DX: E10.65 Type 1 diabetes mellitus with hyperglycemia (principal)
CPT/HCPCS: 36415; 80061

== ENCOUNTER 2023-07-24 10:16 | Outpatient (AMB) | payer MEDICARE, MEDICAID, SELFPAY ==
[2023-07-24 10:20] VITALS: BP 122/86; PULSE 79; BMI 28.0
--- NOTE | 2023-07-24 10:20 | A.OFFVIS_ITS ---
Intake Vital Signs 07/24/23 10:20 Height 5 ft 1 in Weight 148 lb 2.41 oz BMI 28.0 BP 122/86 Blood Pressure Location Rt brachial Position Sitting Pulse 79 Pulse Source Pulse Oximeter Intake Visit Reasons: Type1 DM-confirmed Intake Note: Patient present today to follow up on Type 1 Diabetes Mellitus. Last Diabetic Eye exam: 06/2023 Last Podiatry Visit: 06/2023 Random Glucose:195 mg/dl HgA1C: 9.9% Expediter Service Order Required: No Accompanied by: Self / Same As Patient Allergies icodextrin Allergy (Mild, Verified 07/24/23 10:26) Rash oxycodone Adverse Reaction (Severe, Verified 07/24/23 10:26) rash tramadol Adverse Reaction (Severe, Verified 07/24/23 10:26) rash CLOROXINE Allergy (Unknown, Uncoded 07/24/23 10:26) RASH HPI HPI Comments History of Present Illness Details 32year-old female today for follow-up vi sit, for diabetes type 1 management in the setting of end-stage renal disease. She has been using Lantus 18 units at bedtime and 5 units on dialysis days and Humalog 6-8 units with meals. Unable to download Dexcom today Had rare hypoglycemia She has type 1 diabetes diagnosed at age 11. Diabetes has been complicated with diabetic nephropathy with end-stage renal disease and hemodialysis. She has diabetic neuropathy, hypertension dyslipidemia. She had recent amputation of the right food 4th and 5th toes. She has been on hemodialysis Sunday and Fridays for about 2 years. saw optho this yr last visit last mo . - no retinopathy Laboratory Tests 07/09/18 06/26/19 08/12/19 11:01 15:07 05:59 Hgb Hct Sodium Potassium Carbon Dioxide BUN Creatinine Estim Creat Clear Calc Random Glucose Fasting Glucose Hemoglobin A1c 9.3 Hgb A1c Fingerstic k 10.9 Calcium AST ALT 25-OH Vitamin D To komal 4.2 TSH 3rd Generation 01/13/20 01/14/20 01/14/20 11:26 05:45 05:45 Hgb 11.1 L Hct 35.0 L Sodium Potassium Carbon Dioxide BUN Creatinine 8.53 H* 10.23 H* Estim Creat Clear Calc Random Glucose Fasting Glucose 370 H* D Hemoglobin A1c Hgb A1c Fingerstic k Calcium AST 18 D ALT 14 25-OH Vitamin D To komal TSH 3rd Generation 1.83 01/15/20 11:22 Hgb Hct Sodium 130 L Potassium 4.5 Carbon Dioxide 21 L BUN 33 H Creatinine Estim Creat Clear Calc 9.9 Random Glucose 206 H Fasting Glucose Hemoglobin A1c Hgb A1c Fingerstic k Calcium 9.2 AST ALT 25-OH Vitamin D To komal TSH 3rd Generation [facility] Medical History (Updated 02/20/23 @ 19:15 by Maico Zabala MD) Pulmonary nodules Chronic allergic rhinitis Allergies Kidney failure ESRD (end stage renal disease) on dialysis Anemia HTN (hypertension) ESRD (end stage renal disease) 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 Hypoglycemia due to type 1 diabetes mellitus Hypertension Dyslipidemia Diabetic polyneuropathy associated with type 1 diabetes mellitus Diabetes type 1, uncontrolled ESRD (end stage renal disease) on dialysis ESRD (end stage renal disease) Surgical History History of hemodialysis Hx of amputation Hx of eye surgery Hx of section Family History Father Diabetes mellitus Mother Thyroid disease Pre-diabetes HTN (hypertension) Acute depression Arthritis Social History Household Members: Significant Other Household Members Other:: / - 6 y/o daughter Housing: Apartment Do you presently have visiting nurse or other home services: No Alcohol intake: never Patient Tobacco Use Status: Never used Tobacco service: No Current occupational status: disabled Physical Exam Vital Signs: Last Vital Signs Pulse 79 07/24/23 10:20 BP 122/86 07/24/23 10:20 BMI result Body Mass Index 28.0 Absence of Cushingoid features. Absence of acromegalic features. Neck exam reveals nl size thyroid about 15 gms. No thyroid nodules palpable. No carotid bruits present. Lungs CTA. Heart S1 S2, Reg R/R. No M/R/ G. Skin exam reveals absence of vitiligo or acanthosis nigricans. Abdominal exam reveals Soft NT/ND with NA BS. No organomegaly present. Extrem Other: There is amputation of the right 4th and 5th toes. Visual exam of foot performed. No ulcerations or open lesions. No onchomycosis, no callouses.Pulses 2 + distally. Sensation intact to monofilament exam. Vibratory sensation sensed 10 seconds in right, 10 seconds in left with 128 Hz tuning fork Results AMB Hemoglobin A1c AMB Hemoglobin A1c 9.9 % Last Edit by BUNNY Zambrano on 07/24/23 10:47 Results Reviewed Results Reviewed: Laboratory Last Values Glucose (Clinic) 195 mg/dL (60-115) H 07/24/23 10:29 Hgb A1c (Clinic) 9.9 % (4.0-6.0) H 07/24/23 10:31 Assessment & Plan Assessment & Plan (1) Diabetes type 1, uncontrolled: Code(s): E10.65 - Type 1 diabetes mellitus with hyperglycemia Plan: This is a 32-year-old female with a history of type 1 diabetes longstanding treated with basal-bolus insulin with poor glycemic control and known microvascular complications namely diabetic nephropathy with end-stage renal disease and hemodialysis.and diabetic neuropathy. Unfortunately, could not make any changes to insulin regimen today because of lack of data . However, once again told her to schedule appointment with the particle board supervisor here so that she can share her Dexcom and make adjustments to her insulin regimen and possibly discuss the idea of an insulin pump which would be helpful . Orders: Orders AMB Hemoglobin A1c Today E10.65 - Type 1 diabetes mellitus with hyperglycemia, Z13.9 - Encounter for screening, unspecified Referrals Diabetes Education Referral E10.65 - Type 1 diabetes mellitus with hyperglycemia Coding Level of Care Code Est Pt Level 4 (45805) Diagnoses Diabetes type 1, uncontrolled E10.65
[2023-07-24 10:33] LABS: Glucose, Whole Blood 195 mg/dL (60-115)
== END 2023-07-24 10:42 | disposition home or self-care (01) ==
PROVIDERS: PCP Student in an Organized Health Care Education/Training Program; Visit Provider Internal Medicine Endocrinology, Diabetes & Metabolism
DX: Z13.9 Encounter for screening, unspecified (principal); E10.65 Type 1 diabetes mellitus with hyperglycemia
CPT/HCPCS: 99214

== ENCOUNTER → 2023-07-24 10:16 | Outpatient (BNVA) | payer MEDICARE, MEDICAID, SELFPAY | PROVIDERS: PCP Student in an Organized Health Care Education/Training Program; Visit Provider Internal Medicine Endocrinology, Diabetes & Metabolism | DX: E10.65 Type 1 diabetes mellitus with hyperglycemia (principal) | CPT/HCPCS: 82947; 83036; 99212 ==

== ENCOUNTER 2023-08-09 10:48 | Outpatient (AMB) | payer MEDICARE, MEDICAID, SELFPAY ==
--- NOTE | 2023-08-09 11:23 | A.OFFVIS_ITS ---
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: T1DM/CONFIRMED Proration Clerk Required: No Accompanied by: Self / Same As Patient Allergies icodextrin Allergy (Mild, Verified 07/24/23 10:26) Rash oxycodone Adverse Reaction (Severe, Verified 07/24/23 10:26) rash tramadol Adverse Reaction (Severe, Verified 07/24/23 10:26) rash CLOROXINE Allergy (Unknown, Uncoded 07/24/23 10:26) RASH HPI Comprehensive Diabetes Asmnt Most Recent Diabetes Results: Hemoglobin A1c 9.3 % 08/12/19 Cholesterol 168 mg/dL (<200) 07/23/23 HDL Cholesterol 25 mg/dL (>40) L 07/23/23 Triglycerides 260 mg/dL (<150) H 07/23/23 Creatinine 8.04 mg/dL (0.5-1.4) H* 11/21/22 Blood Urea Nitrogen 42 mg/dL (9-16) H 11/21/22 Sodium 134 mmol/L (135-145) L 11/21/22 Potassium 4.2 mmol/L (3.3-5.1) 11/21/22 Chloride 90 mmol/L (96-108) L 11/21/22 Carbon Dioxide 29 mmol/L (22-29) 11/21/22 Calcium 9.2 mg/dL (8.4-10.2) 11/21/22 AST 23 U/L (5-31) 11/21/22 ALT 28 U/L (0-31) 11/21/22 Total Protein 8.7 g/dL (6.5-8.0) H 11/21/22 Albumin 4.0 g/dL (3.5-5.0) 11/21/22 [facility] Medical History (Updated 02/20/23 @ 19:15 by Maico Zabala MD) Pulmonary nodules Chronic allergic rhinitis Allergies Kidney failure ESRD (end stage renal disease) on dialysis Anemia HTN (hypertension) ESRD (end stage renal disease) 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 Hypoglycemia due to type 1 diabetes mellitus Hypertension Dyslipidemia Diabetic polyneuropathy associated with type 1 diabetes mellitus Diabetes type 1, uncontrolled ESRD (end stage renal disease) on dialysis ESRD (end stage renal disease) Surgical History History of hemodialysis Hx of amputation Hx of eye surgery Hx of section Family History Father Diabetes mellitus Mother Thyroid disease Pre-diabetes HTN (hypertension) Acute depression Arthritis Social History Household Members: Significant Other Household Members Other:: / - 6 y/o daughter Housing: Apartment Do you presently have visiting nurse or other home services: No Alcohol intake: never Patient Tobacco Use Status: Never used Tobacco service: No Current occupational status: disabled Assessment & Plan Assessment & Plan (1) 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 checks BG was Dexcom G6 Downloaded meter today? Yes Patient's average glucose for the past 14 days 300 mg/dL Patient above target 87% Patient below target 1% Patient at target 13% Patient? reports glycemic control as: Poor Most recent Hgb A1C: 9.9% July 2023 Frequency of low B-2 weekly Low BG treatment: glucose tabs Frequency of high BG: daily Does patient check Ketones? no Has pt been on a pump in the past? no Reviewed insulin pump basics today with Patient. Explained pros and cons of insulin pumps. Showed pt various pumps, infusion sets, and cgms currently available. Reviewed need to wear pump 24/7 and need to change infusion set every 3 days. Also stressed importance of frequent BG checks, 4x daily minimum or use pump that is integrated with CGM.? TDD: 44 units I:CHO 10 Sensitivity Factor: 1:35 Bolus calc nicole downloaded onto patient's phone Patient demonstrated motivation for continued insulin pump education and understands the need to complete education prior to starting insulin pump for best outcome. Will follow up for continued education. Next visit will include review of Advanced Carb Counting. Patient Instructions: Practice carb counting, using bolus calc nicole on phone for mealtime doses of insulin Increase Lantus to 27 units daily Follow-up with staff development educator in 2 weeks Coding Level of Care Code Est Pt Level 1 (39602) Diagnoses 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 E10.649
== END 2023-08-09 11:47 | disposition home or self-care (01) ==
PROVIDERS: PCP Student in an Organized Health Care Education/Training Program; Visit Provider Registered Nurse Diabetes Educator
DX: E10.649 Type 1 diabetes mellitus with hypoglycemia without coma (principal)

== ENCOUNTER → 2023-08-09 10:48 | Outpatient (BNVA) | payer MEDICARE, MEDICAID, SELFPAY | PROVIDERS: PCP Student in an Organized Health Care Education/Training Program; Visit Provider Registered Nurse Diabetes Educator | DX: Z46.81 Encounter for fitting and adjustment of insulin pump (principal); E10.649 Type 1 diabetes mellitus with hypoglycemia without coma | CPT/HCPCS: 99211 ==

== ENCOUNTER 2023-08-23 12:28 | Outpatient (AMB) | payer MEDICARE, MEDICAID, SELFPAY ==
--- NOTE | 2023-08-23 13:02 | A.OFFVIS_ITS ---
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: T1DM/Carb counting Customer Experience Manager Required: No Accompanied by: Self / Same As Patient Allergies icodextrin Allergy (Mild, Verified 07/24/23 10:26) Rash oxycodone Adverse Reaction (Severe, Verified 07/24/23 10:26) rash tramadol Adverse Reaction (Severe, Verified 07/24/23 10:26) rash CLOROXINE Allergy (Unknown, Uncoded 07/24/23 10:26) RASH HPI Comprehensive Diabetes Asmnt Most Recent Diabetes Results: Hemoglobin A1c 9.3 % 08/12/19 Cholesterol 168 mg/dL (<200) 07/23/23 HDL Cholesterol 25 mg/dL (>40) L 07/23/23 Triglycerides 260 mg/dL (<150) H 07/23/23 Creatinine 8.04 mg/dL (0.5-1.4) H* 11/21/22 Blood Urea Nitrogen 42 mg/dL (9-16) H 11/21/22 Sodium 134 mmol/L (135-145) L 11/21/22 Potassium 4.2 mmol/L (3.3-5.1) 11/21/22 Chloride 90 mmol/L (96-108) L 11/21/22 Carbon Dioxide 29 mmol/L (22-29) 11/21/22 Calcium 9.2 mg/dL (8.4-10.2) 11/21/22 AST 23 U/L (5-31) 11/21/22 ALT 28 U/L (0-31) 11/21/22 Total Protein 8.7 g/dL (6.5-8.0) H 11/21/22 Albumin 4.0 g/dL (3.5-5.0) 11/21/22 [facility] Medical History (Updated 02/20/23 @ 19:15 by Maico Zabala MD) Pulmonary nodules Chronic allergic rhinitis Allergies Kidney failure ESRD (end stage renal disease) on dialysis Anemia HTN (hypertension) ESRD (end stage renal disease) 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 Hypoglycemia due to type 1 diabetes mellitus Hypertension Dyslipidemia Diabetic polyneuropathy associated with type 1 diabetes mellitus Diabetes type 1, uncontrolled ESRD (end stage renal disease) on dialysis ESRD (end stage renal disease) Surgical History History of hemodialysis Hx of amputation Hx of eye surgery Hx of section Family History Father Diabetes mellitus Mother Thyroid disease Pre-diabetes HTN (hypertension) Acute depression Arthritis Social History Household Members: Significant Other Household Members Other:: / - 6 y/o daughter Housing: Apartment Do you presently have visiting nurse or other home services: No Alcohol intake: never Patient Tobacco Use Status: Never used Tobacco service: No Current occupational status: disabled Assessment & Plan Assessment & Plan (1) 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 Reviewed the basic principles of carbohydrate counting.? Insulin to carb ratio, and insulin sensitivity factor calculated based on rule of 450 for insulin to carb ratio, and rule of 1500 for insulin sensitivity factor. Instructed patient on the importance of accurate calculation of the amount of carbs per meal for optimal glucose control Reviewed how to calculate mealtime bolus with insulin to carb ratio Reviewed how to calculate correction dose with insulin sensitivity factor Patient's TDD estimate 50 units Insulin to Carbohydrate ratio:1:10 Correction factor:1:35 Patient did come in with insulin pump we did not have time to set it up today, we created [employer] account, and linked patient's account 2 [email or web address] ID: [email or web address] Patient given healthy plate handout, for resource for carbohydrate counting Encourage patient to fill out food logs, estimating carbohydrates at meals, noting glucose number prior to meal, and how many units of insulin taken prior to meals Pt able to calculated needed insulin based on estimated carbohydrate content Instructed patient that there may need to be adjustment to insulin to carb ratio and sensitivity factor based on blood glucose trends. Patient Instructions: Continue to practice with carb counting nicole Return in 2 weeks, for Omnipod 5 training. Be sure to bring insulin to that appt Coding Level of Care Code Est Pt Level 1 (92947) Diagnoses 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 E10.649
== END 2023-08-23 13:42 | disposition home or self-care (01) ==
PROVIDERS: PCP Student in an Organized Health Care Education/Training Program; Visit Provider Registered Nurse Diabetes Educator
DX: E10.649 Type 1 diabetes mellitus with hypoglycemia without coma (principal)

== ENCOUNTER → 2023-08-23 12:28 | Outpatient (BNVA) | payer MEDICARE, MEDICAID, SELFPAY | PROVIDERS: PCP Student in an Organized Health Care Education/Training Program; Visit Provider Registered Nurse Diabetes Educator | DX: E10.649 Type 1 diabetes mellitus with hypoglycemia without coma (principal) | CPT/HCPCS: 99211 ==

== ENCOUNTER 2023-09-04 12:09 | Outpatient (AMB) | payer MEDICARE, MEDICAID, SELFPAY ==
--- NOTE | 2023-09-04 13:21 | MHC.AMDMED ---
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: Omnipod pump training cont./LVM Commissioned Fire Officer Required: No Accompanied by: Self / Same As Patient Allergies icodextrin Allergy (Mild, Verified 07/24/23 10:26) Rash oxycodone Adverse Reaction (Severe, Verified 07/24/23 10:26) rash tramadol Adverse Reaction (Severe, Verified 07/24/23 10:26) rash CLOROXINE Allergy (Unknown, Uncoded 07/24/23 10:26) RASH HPI Comprehensive Diabetes Asmnt Most Recent Diabetes Results: Cholesterol 168 mg/dL (<200) 07/23/23 HDL Cholesterol 25 mg/dL (>40) L 07/23/23 Triglycerides 260 mg/dL (<150) H 07/23/23 [facility] Medical History (Updated 02/20/23 @ 19:15 by Maico Zabala MD) Pulmonary nodules Chronic allergic rhinitis Allergies Kidney failure ESRD (end stage renal disease) on dialysis Anemia HTN (hypertension) ESRD (end stage renal disease) 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 Hypoglycemia due to type 1 diabetes mellitus Hypertension Dyslipidemia Diabetic polyneuropathy associated with type 1 diabetes mellitus Diabetes type 1, uncontrolled ESRD (end stage renal disease) on dialysis ESRD (end stage renal disease) Surgical History History of hemodialysis Hx of amputation Hx of eye surgery Hx of section Family History Father Diabetes mellitus Mother Thyroid disease Pre-diabetes HTN (hypertension) Acute depression Arthritis Social History Household Members: Significant Other Household Members Other:: / - 6 y/o daughter Housing: Apartment Do you presently have visiting nurse or other home services: No Alcohol intake: never Patient Tobacco Use Status: Never used Tobacco service: No Current occupational status: disabled Assessment & Plan Assessment & Plan (1) 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 The following topics were reviewed today: -Pump therapy basic concepts: Basal/bolus, insulin to carb ratio, correction factor, insulin on board -Device settings: Bluetooth/mobile connection (if applicable), correct date and time, sound volume -CGM settings(if integrated system): CGM graft views and trend arrows, alerts and alarms, Start new sensor ??? High Alert: Off ??? Low Alert: 70 mg/dl Insulin delivery settings Program insulin to carb ratio, correction factor, target blood glucose, suspend or resume insulin delivery, bolus limit and basal limit settings Instructed patient to only use room temperature insulin, how to load cartridge or fill pod, with insulin. Fill tubing and cannula (if applicable) Inserting infusion set or starting pod Troubleshooting after starting new pod or inserting new insulin set: Occlusion, adhesive tape sensitivity, redness Check BG 2 hours after site change Safety information: Importance of a backup plan, for manual injections, proper prescriptions and emergency supplies ketone strips, and rules for testing for ketones Patient was able to insert insulin set today without difficulty. Patient understands the basic concepts of pump therapy, how to give insulin for meals and snacks, how to troubleshoot for hyper and hypoglycemia. Setting verified by CDCES Basal rate(s) (units/hour) : 12 AM? to 12 AM 1 units / hr Bolus setting Insulin Carbohydrate Ratio (s) 12 AM? to 12 AM 1:10 Correction Factor / Sensitivity Factor 12 AM? to 12 AM? 1:35 Active Insulin Time:? 4 hours Target(s): 12 AM? to 12 AM 120 mg/dL Correction Threshold 12 AM? to 12 AM 130 mg/dL Patient will follow up with CDE as instructed Patient will contact CDE with questions or concerns, patient given IT number to support in any technical issues related to insulin pump Patient Instructions: Patient will follow-up in 1 week Coding Level of Care Code Est Pt Level 1 (28396) Diagnoses 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 E10.649
== END 2023-09-04 13:28 | disposition home or self-care (01) ==
PROVIDERS: PCP Student in an Organized Health Care Education/Training Program; Visit Provider Registered Nurse Diabetes Educator
DX: E10.649 Type 1 diabetes mellitus with hypoglycemia without coma (principal)

== ENCOUNTER → 2023-09-04 12:09 | Outpatient (BNVA) | payer MEDICARE, MEDICAID, SELFPAY | PROVIDERS: PCP Student in an Organized Health Care Education/Training Program; Visit Provider Registered Nurse Diabetes Educator | DX: Z46.81 Encounter for fitting and adjustment of insulin pump (principal); E10.649 Type 1 diabetes mellitus with hypoglycemia without coma; Z79.4 Long term (current) use of insulin | CPT/HCPCS: 99211 ==

== ENCOUNTER 2023-09-06 10:27 | Outpatient (REF) | payer MEDICARE, MEDICAID, SELFPAY ==
[2023-09-06 10:48] LABS: MANUAL DIFF FLAG NO
[2023-09-06 11:34] LABS: Basophils Absolute Auto 0.1 X10*3/uL (0.0-0.2); Basophils Percent Auto 0.8 % (0-2); Eosinophils Absolute Auto 0.4 X10*3/uL (0.0-0.4); Eosinophils Percent Auto 3.5 % (0-4); Hematocrit 37.4 % (37.0-47.0); Hemoglobin 12.1 g/dl (12.0-16.0); Imm Gran Abs Auto 0.04 X10*3/uL (0.00-0.03); Imm Gran Pct Auto 0.4 % (0.0-0.4); Lymphocytes Absolute Auto 2.5 X10*3/uL (1.2-4.9); Mean Corpuscular HGB Conc 32.4 g/dl (31.0-35.0); Mean Corpuscular Hemoglobin 30.9 pg (27.0-33.0); Mean Corpuscular Volume 95.7 fL (80.0-98.0); Mean Platelet Volume 11.6 fL (9.4-12.3); Monocytes Absolute Auto 0.6 X10*3/uL (0.1-1.2); Monocytes Percent Auto 6.3 % (2-11); Neutrophils Absolute Auto 6.3 x10*3/uL (2.0-8.3); Platelet Count 227 X10*3/uL (160-400); Red Blood Count 3.91 X10*6/uL (4.20-5.50); Red Cell Distribution Width 14.2 % (11.0-16.0); White Blood Count 9.9 X10*3/uL (4.8-10.8)
[2023-09-06 11:39] LABS: Estimated Average Glucose 223 mg/dL; Hemoglobin A1c % 9.4 % (<6.0)
[2023-09-06 12:03] LABS: Alanine Aminotransferase 31 U/L (0-31); Alkaline Phosphatase 111 U/L (39-117); Anion Gap 19 (12-20); Aspartate Amino Transferase 26 U/L (5-31); Bilirubin Total 0.3 mg/dL (0.0-1.0); Blood Urea Nitrogen 22 mg/dL (9-16); Calcium 9.5 mg/dL (8.4-10.2); Carbon Dioxide 36 mmol/L (22-29); Chloride 90 mmol/L (96-108); Cholesterol 203 mg/dL (<200); Glucose Random 113 mg/dL (60-115); HDL Cholesterol 29 mg/dL (>40); LDL Cholesterol Calculated 123 mg/dL (<100); Potassium 4.4 mmol/L (3.3-5.1); Sodium 141 mmol/L (135-145); Total Protein 8.4 g/dL (6.5-8.0); Triglycerides 256 mg/dL (<150)
[2023-09-06 12:06] LABS: Estimated Glomerular Filt Rate 7
[2023-09-06 12:15] LABS: HBS Num1 146.61 mIU/mL (0-7.99); HBc Num1 0.12 S/CO (0.00-0.79); HBsAGNum1 0.23 S/CO (0.00-0.99); HIV AB/AG Nonreactive (Nonreactive); HIV Num 1 0.05 S/CO (0.00-0.99); Hepatitis B Core Antibody Nonreactive (Nonreactive); Hepatitis B Surface Antigen Negative (Negative); ~HepC Num1 0.14 S/CO (0.00-0.79); ~Hepatitis B Surface Antibody REACTIVE (Nonreactive); ~Hepatitis C Antibody Nonreactive (Nonreactive)
[2023-09-06 12:17] LABS: Syphilis Screen Nonreactive (Nonreactive)
[2023-09-06 12:21] LABS: TSH reflex Free T4 0.72 uIU/mL (0.32-4.0)
[2023-09-06 13:54] LABS: Folate 17.5 ng/mL (> or = 4.0); Vitamin B12 > 2000 pg/mL (200-900)
== END 2023-09-06 10:28 | disposition home or self-care (01) ==
LOC: HO.LAB 10:27
PROVIDERS: PCP Student in an Organized Health Care Education/Training Program; Visit Provider Student in an Organized Health Care Education/Training Program
DX: Z00.00 Encounter for general adult medical examination without abnormal findings (principal); Z11.59 Encounter for screening for other viral diseases; D72.829 Elevated white blood cell count, unspecified; Z72.89 Other problems related to lifestyle
CPT/HCPCS: 36415; 80053; 80061; 82607; 82746; 83036; 84443; 85025; 85027; 86704; 86706; 86780; 86803; 87340; 87389

== ENCOUNTER 2023-09-13 15:46 | Outpatient (AMB) | payer MEDICARE, MEDICAID, SELFPAY ==
--- NOTE | 2023-09-13 16:04 | A.OFFVIS_ITS ---
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: Pump review 60 minutes/lvm Allergies icodextrin Allergy (Mild, Verified 07/24/23 10:26) Rash oxycodone Adverse Reaction (Severe, Verified 07/24/23 10:26) rash tramadol Adverse Reaction (Severe, Verified 07/24/23 10:26) rash CLOROXINE Allergy (Unknown, Uncoded 07/24/23 10:26) RASH HPI Comprehensive Diabetes Asmnt Most Recent Diabetes Results: Cholesterol 203 mg/dL (<200) H 09/06/23 HDL Cholesterol 29 mg/dL (>40) L 09/06/23 Triglycerides 256 mg/dL (<150) H 09/06/23 Creatinine 6.66 mg/dL (0.5-1.4) H* 09/06/23 Blood Urea Nitrogen 22 mg/dL (9-16) H 09/06/23 Sodium 141 mmol/L (135-145) 09/06/23 Potassium 4.4 mmol/L (3.3-5.1) 09/06/23 Chloride 90 mmol/L (96-108) L 09/06/23 Carbon Dioxide 36 mmol/L (22-29) H 09/06/23 Calcium 9.5 mg/dL (8.4-10.2) 09/06/23 AST 26 U/L (5-31) 09/06/23 ALT 31 U/L (0-31) 09/06/23 Total Protein 8.4 g/dL (6.5-8.0) H 09/06/23 Albumin 4.0 g/dL (3.5-5.0) 09/06/23 [facility] Medical History (Updated 02/20/23 @ 19:15 by Maico Zabala MD) Pulmonary nodules Chronic allergic rhinitis Allergies Kidney failure ESRD (end stage renal disease) on dialysis Anemia HTN (hypertension) ESRD (end stage renal disease) 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 Hypoglycemia due to type 1 diabetes mellitus Hypertension Dyslipidemia Diabetic polyneuropathy associated with type 1 diabetes mellitus Diabetes type 1, uncontrolled ESRD (end stage renal disease) on dialysis ESRD (end stage renal disease) Surgical History History of hemodialysis Hx of amputation Hx of eye surgery Hx of section Family History Father Diabetes mellitus Mother Thyroid disease Pre-diabetes HTN (hypertension) Acute depression Arthritis Social History Household Members: Significant Other Household Members Other:: / - 6 y/o daughter Housing: Apartment Do you presently have visiting nurse or other home services: No Alcohol intake: never Patient Tobacco Use Status: Never used Tobacco service: No Current occupational status: disabled Assessment & Plan Assessment & Plan (1) 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 The following topics were reviewed today: - action time of rapid insulin - importance of bolusing 15 minutes before meals ??? High Alert: Off ??? Low Alert: 70 mg/dl CGM Patient above target 55% At target 45% Below target 0% Patient's average glucose for the past 7 days 204 mg/dL Even though patient's average glucose still above target range, 204 mg/dL is an improvement over previous average glucose of 303 mg/dL. Discussed with patient the importance of bolusing for meals 15 minutes before eating Patient does not eat frequently but is using the correction, we tightened the correction from 1-35 to 1-30 Reviewed with patient if hypoglycemic events increase, to contact art educator Reviewed rule of 15 to treat hypoglycemia Troubleshooting after starting new pod or inserting new insulin set: Occlusion, adhesive tape sensitivity, redness Check BG 2 hours after site change Safety information: Importance of a backup plan, for manual injections, proper prescriptions and emergency supplies ketone strips, and rules for testing for ketones Patient understands the basic concepts of pump therapy, how to give insulin for meals and snacks, how to troubleshoot for hyper and hypoglycemia. Setting verified by CDCES Basal rate(s) (units/hour) : 12 AM? to 12 AM 1 units / hr Bolus setting Insulin Carbohydrate Ratio (s) 12 AM? to 12 AM 1:10 Correction Factor / Sensitivity Factor 12 AM? to 12 AM? 1:35 New 12 AM? to 12 AM? 1:30 Active Insulin Time:? 4 hours Target(s): 12 AM? to 12 AM 120 mg/dL Correction Threshold 12 AM? to 12 AM 130 mg/dL Patient will follow up with CDE as instructed Patient will contact CDE with questions or concerns, patient given IT number to support in any technical issues related to insulin pump Coding Level of Care Code Est Pt Level 1 (28790) Diagnoses 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 E10.649
== END 2023-09-13 16:09 | disposition home or self-care (01) ==
PROVIDERS: PCP Student in an Organized Health Care Education/Training Program; Visit Provider Registered Nurse Diabetes Educator
DX: E10.649 Type 1 diabetes mellitus with hypoglycemia without coma (principal)

== ENCOUNTER → 2023-09-13 15:46 | Outpatient (BNVA) | payer MEDICARE, MEDICAID, SELFPAY | PROVIDERS: PCP Student in an Organized Health Care Education/Training Program; Visit Provider Registered Nurse Diabetes Educator | DX: Z46.81 Encounter for fitting and adjustment of insulin pump (principal); E10.649 Type 1 diabetes mellitus with hypoglycemia without coma; Z79.4 Long term (current) use of insulin | CPT/HCPCS: 99211 ==

== ENCOUNTER 2023-10-30 09:34 | Outpatient (REF) | payer MEDICARE, MEDICAID, SELFPAY | END 2023-10-30 09:35 | disposition home or self-care (01) | LOC: HO.LAB 09:34 | PROVIDERS: PCP Student in an Organized Health Care Education/Training Program; Visit Provider Internal Medicine Endocrinology, Diabetes & Metabolism | DX: E10.65 Type 1 diabetes mellitus with hyperglycemia (principal); E10.22 Type 1 diabetes mellitus with diabetic chronic kidney disease; N18.6 End stage renal disease; Z99.2 Dependence on renal dialysis; Z96.41 Presence of insulin pump (external) (internal) | CPT/HCPCS: 82947; 99212 ==

== ENCOUNTER 2023-10-30 10:01 | Outpatient (AMB) | payer MEDICARE, MEDICAID, SELFPAY ==
--- NOTE | 2023-10-30 10:04 | A.OFFVIS_ITS ---
Vital Signs 10/30/23 10:11 Height 5 ft 1 in Weight 145 lb 8.081 oz BMI 27.5 BP 114/70 Blood Pressure Location Rt brachial Position Sitting Pulse 75 Pulse Source Pulse Oximeter Intake Visit Reasons: T1DM/CONFIRMED Intake Note: New Patient presents today to establish treatment for Type 1 Diabetes Mellitus: Last Diabetic Eye exam: 06/2023 Last Podiatry Exam: 06/2023 Most recent HbA1c: 9.4%, 09/06/2023 Random Glucose- 184 mg/dL, Today Suction Plate Roller Hand Required: No Accompanied by: Self / Same As Patient Allergies icodextrin Allergy (Mild, Verified 10/30/23 10:05) Rash oxycodone Adverse Reaction (Severe, Verified 10/30/23 10:05) rash tramadol Adverse Reaction (Severe, Verified 10/30/23 10:05) rash CLOROXINE Allergy (Unknown, Uncoded 10/30/23 10:05) RASH HPI Comments Details: I sent you a on Tegretol GI from the now normal I just sent distant so it a have on chronic kidney failure you cover hemodialysis diet as well and either on dialysis anymore or actually he was on dialysis see just had low EGFR 80 year old okay on her own down Today in the office we discussed V-Go mealtime insulin patch which will deliver both basal and bolus insulin for 24 hours. The patient would be a good candidate and is interested in starting this. An order for the V-Go was sent to pharmacy and the patient agrees to schedule an appointment with Elena ARRIOLA for V-Go start up. Okay The patient was advised to make the following changes in medication: In sudden the dietitian facilities he has that is just it free he I just wanted to make sure I was in pain I follow your preference 33 year-old female today for follow-up visit, for diabetes type 1 management in the setting of end-stage renal disease. She was started on an omni pod 5 3 months ago. She reports she had a recent A1C of 9.4%. The staff was unable to download her pump today. She is putting in for activiy (exercise) when she corrects at dialysis which she states has take care of lows in dialysis. If her sugar is normal she has not been bolusing for meals. Avg glucose: 232 cgm active 94.7%. She states she has been using the sensor consistently now that she has a supply of sensors. The trend of her sugars is overall high after meals. She has not been bolusing when her sugars are in normal range she waits for them to become high and then boluses. G6 Download: GMI 8.9% [38 ] % very high (above 250) 33 % high (181-250) [28 ] % in range (70-180] Less than 1 % low (69-55) [Less than 1 ] % very low (below 54) Eighty-four Standard Deviation Previous settings: not confirmed today Basal rate(s) (units/hour) : 12 AM? to 12 AM 1 units / hr Bolus setting Insulin Carbohydrate Ratio (s) 12 AM? to 12 AM 1:10 Correction Factor / Sensitivity Factor 12 AM? to 12 AM? 1:35 New 12 AM? to 12 AM? 1:30 Active Insulin Time:? 4 hours Target(s): 12 AM? to 12 AM 120 mg/dL Correction Threshold 12 AM? to 12 AM 130 mg/dL Had rare hypoglycemia She has type 1 diabetes diagnosed at age 11. Diabetes has been complicated with diabetic nephropathy with end-stage renal disease and hemodialysis. She has diabetic neuropathy, hypertension dyslipidemia. 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 She sees the paper machine operator regularly. She has follow-up December 03. She recently had the nail on her right 1st toe removed. The paper machine operator had instructed her to apply an antibiotic cream for several weeks and after that time cleanse daily and cover with a Band-Aid. She states that she has no symptoms of infection to the area. She has been on hemodialysis Sunday and Fridays for about 2 years. saw optho this yr . - no retinopathy per patient reports [facility] Medical History Pulmonary nodules Chronic allergic rhinitis Allergies Kidney failure ESRD (end stage renal disease) on dialysis Anemia HTN (hypertension) ESRD (end stage renal disease) 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 Hypoglycemia due to type 1 diabetes mellitus Hypertension Dyslipidemia Diabetic polyneuropathy associated with type 1 diabetes mellitus Diabetes type 1, uncontrolled ESRD (end stage renal disease) on dialysis ESRD (end stage renal disease) Surgical History History of hemodialysis Hx of amputation Hx of eye surgery Hx of section Family History Father Diabetes mellitus Mother Thyroid disease Pre-diabetes HTN (hypertension) Acute depression Arthritis Social History Household Members: Significant Other Household Members Other:: / - 6 y/o daughter Housing: Apartment Do you presently have visiting nurse or other home services: No Alcohol intake: never Patient Tobacco Use Status: Never used Tobacco service: No Current occupational status: disabled Physical Exam Vital Signs: Last Vital Signs Pulse 75 10/30/23 10:11 BP 114/70 10/30/23 10:11 BMI result Body Mass Index 27.5 Const Other: Absence of Cushingoid features. Absence of acromegalic features. Neck exam reveals nl size thyroid about 15 gms. No thyroid nodules palpable. Heart S1 S2, Reg R/R. No M/R/ G. Skin exam reveals absence of vitiligo or acanthosis nigricans. Extrem Other: There is amputation of the right 4th and 5th toes. Visual exam of foot performed. No ulcerations or open lesions with exception of right 1st toe. Band-aid removed there is no nail. The area has good granulation tissue and there is no discharge or redness No onchomycosis, no callouses.Pulses 2 + distally. Sensation intact diminished monofilament exam. Results Reviewed Results Reviewed: Laboratory Last Values Glucose (Clinic) 184 mg/dL (60-115) H 10/30/23 10:17 Laboratory Tests 07/24/23 09/06/23 10:31 10:47 Potassium 4.4 Creatinine 6.66 H* Random Glucose 113 Estimat Average Glucose 223 Hgb A1c (Clinic) 9.9 H Hemoglobin A1c % 9.4 H Calcium 9.5 Total Bilirubin 0.3 AST 26 ALT 31 Alkaline Phosphatase 111 Triglycerides 256 H Cholesterol 203 H HDL Cholesterol 29 L Vitamin B12 > 2000 H TSH 0.72 Assessment & Plan Assessment & Plan (1) Diabetes type 1, uncontrolled: Code(s): E10.65 - Type 1 diabetes mellitus with hyperglycemia Category: Medical Plan: see below Plan This is a 33-year-old female with a history of type 1 diabetes longstanding previously treated with basal-bolus insulin who switched to omnipod insulin pump. She has had poor glycemic control and known microvascular complications namely diabetic nephropathy with end-stage renal disease and hemodialysis.and diabetic neuropathy. Her last A1c at dialysis was 9.4%. Dexcom sensor shows consistent trend of hyperglycemia with meals. She is entering her carbs but not until her sugars are highl and not before the meals. She was counseled to count carbohydrates prior to the meal and to enter them into the pump and deliver insulin prior to eating. She will do this consistently for 1 week and follow up with Elena ARRIOLA for review of pump download ad to get her account sharing with our office. If she is dropping post meal correction and her insulin to carb ratio can be adjusted at the next visit. She does report that her lows have greatly improved in dialysis with adding activity to her pump. Patient education: Rule of 15's The patient was counseled to achieve a target A1C of 7% (154 avg) the fasting blood sugars should be 90-130 in the morning and less than 180 two hours after meals. Risks of uncontrolled diabetes discussed with the patient. Need for bolus correction prior to eating. DKA prevention and high glucose protocol. Patient is anuric on HD and will need to purchase precision xtra otc in order to test for ketones. Coding Level of Care Code Est Pt Level 5 (36875) Complex EM visit Add On G2211 Diagnoses Diabetes type 1, uncontrolled E10.65 Time Spent (min) 60 Comment Time spent reviewing labs/previous provider notes, face to face, chart documentation
[2023-10-30 10:11] VITALS: BP 114/70; PULSE 75; BMI 27.5
[2023-10-30 10:22] LABS: Glucose, Whole Blood 184 mg/dL (60-115)
== END 2023-10-30 11:09 | disposition home or self-care (01) ==
PROVIDERS: PCP Student in an Organized Health Care Education/Training Program; Visit Provider Nurse Practitioner Adult Health
DX: E10.65 Type 1 diabetes mellitus with hyperglycemia (principal)
CPT/HCPCS: 99215; G2211; G2212

== ENCOUNTER 2023-11-01 09:10 | Outpatient (REF) | payer MEDICARE, MEDICAID, SELFPAY ==
--- NOTE | ~2023-11-01 | CT_ITS ---
EXAMINATION: CT CHEST WITHOUT CONTRAST CLINICAL INFORMATION: Other nonspecific abnormal finding of lung field. COMPARISON: CT chest 06/02/2021. TECHNIQUE: Multidetector volumetric CT imaging of the chest was done. Axial MIP volume rendering provided. Sagittal and coronal reformatted images were obtained. This CT examination was performed using dose optimization techniques as appropriate, variously including the following: *Automated exposure control *Adjustment of mA and/or kV according to patient size (this includes techniques or standardized protocols for targeted exams where dose is matched to indication/reason for exam; i.e. extremities or head) *Use of iterative reconstruction technique DLP: 155 mGy-cm Please note, due to [facility] contractual, systems, and staffing issues, an [facility] [place]ologist was not available for review and dictation of this case until 12/12/2023. FINDINGS: PULMONARY NODULES: -Numerous bilateral scattered micronodules, many calcified and consistent with granulomata, unchanged. -4 mm pleural nodule right upper lobe laterally (series 5, antral and 13), stable and unchanged. -6 mm pleural nodule superior segment left lower lobe posteriorly (series 5, image 150), stable and unchanged. -5 mm calcified granuloma right lower lobe (series 5, image 302), stable. -3 mm nodule left lower lobe posterolaterally (series 5, image 264), stable. LUNGS: -Tree-in-bud grouped nodules in the anterior right middle lobe, and posterior right lower lobe, as well as the posterior left lower lobe, consistent with endobronchial spread of infection. -Motion artifact limits detection of subtle findings in the left lower lobe and lingula. -Linear scarring or atelectasis medial left lower lobe. -Previously seen pleural effusions have resolved. Previously seen pulmonary edema has resolved. -Previously seen bronchial wall thickening has resolved. No bronchiectasis. MEDIASTINUM: -Minimal prominence of the thyroid gland without discrete nodule. -No abnormal lymphadenopathy in the mediastinum. A couple calcified nodes abutting the SVC. -Aorta is normal in caliber and course without aneurysm. -Triangular-shaped soft tissue density in the anterior mediastinum is consistent with residual thymus or thymic rebound. -Heart is mildly enlarged. Dense calcification of the mitral annulus. No pericardial effusion. -Mildly patulous esophagus. CORONARY ARTERY CALCIFICATION: Heavy three-vessel coronary calcification. AXILLA/CHEST WALL: No masses or abnormal lymph nodes. Numerous calcifications in the breasts which are quite dense, suggestive of diabetic mastopathy. UPPER ABDOMEN: -Heavy calcification of the arterial vasculature including the splenic artery, celiac artery, hepatic artery left gastric artery, and bilateral renal arteries. OSSEOUS STRUCTURES: Normal. CT/CT chest wo IV con IMPRESSION: 1. Scattered tyax-kq-tvl-type micronodules in the anterior right middle lobe, posterior right lower lobe, and posterior left lower lobe suggestive of endobronchial spread of infection. 2. Previously seen pulmonary edema with small pleural effusions as resolves. 3. Stable scattered micronodules, many of which are calcified granulomata. These are benign. No new or enlarging suspicious nodules. 4. Heavy coronary calcifications and extensive abdominal arterial calcifications in keeping with diabetes. 5. Evidence of prior granulomatous exposure. 6. Additional ancillary findings as discussed in the body of the report. Fleischner guidelines were followed. Electronically signed by: Michelet Troncoso MD 12/12/2023 01:12 PM EDT
== END 2023-11-01 09:11 | disposition home or self-care (01) ==
LOC: HO.CT 09:10
PROVIDERS: PCP Student in an Organized Health Care Education/Training Program; Visit Provider Hospitalist
DX: R91.8 Other nonspecific abnormal finding of lung field (principal)
CPT/HCPCS: 71250

== ENCOUNTER → 2023-11-01 10:08 | Outpatient (BNV) | payer MEDICARE, MEDICAID, SELFPAY | PROVIDERS: PCP Student in an Organized Health Care Education/Training Program; Visit Provider Radiology Diagnostic Radiology | DX: R91.8 Other nonspecific abnormal finding of lung field (principal) | CPT/HCPCS: 71250 ==

== ENCOUNTER 2023-11-13 14:25 | Outpatient (AMB) | payer MEDICARE, MEDICAID, SELFPAY ==
--- NOTE | 2023-11-13 14:34 | A.OFFVIS_ITS ---
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: Omnipod 5 Pneumatic Tube Fitter Required: No Accompanied by: Self / Same As Patient Allergies icodextrin Allergy (Mild, Verified 10/30/23 10:05) Rash oxycodone Adverse Reaction (Severe, Verified 10/30/23 10:05) rash tramadol Adverse Reaction (Severe, Verified 10/30/23 10:05) rash CLOROXINE Allergy (Unknown, Uncoded 10/30/23 10:05) RASH HPI Comprehensive Diabetes Asmnt Most Recent Diabetes Results: Hemoglobin A1c 9.3 % 08/12/19 Cholesterol 203 mg/dL (<200) H 09/06/23 HDL Cholesterol 29 mg/dL (>40) L 09/06/23 Triglycerides 256 mg/dL (<150) H 09/06/23 Creatinine 6.66 mg/dL (0.5-1.4) H* 09/06/23 Blood Urea Nitrogen 22 mg/dL (9-16) H 09/06/23 Sodium 141 mmol/L (135-145) 09/06/23 Potassium 4.4 mmol/L (3.3-5.1) 09/06/23 Chloride 90 mmol/L (96-108) L 09/06/23 Carbon Dioxide 36 mmol/L (22-29) H 09/06/23 Calcium 9.5 mg/dL (8.4-10.2) 09/06/23 AST 26 U/L (5-31) 09/06/23 ALT 31 U/L (0-31) 09/06/23 Total Protein 8.4 g/dL (6.5-8.0) H 09/06/23 Albumin 4.0 g/dL (3.5-5.0) 09/06/23 [facility] Medical History Pulmonary nodules Chronic allergic rhinitis Allergies Kidney failure ESRD (end stage renal disease) on dialysis Anemia HTN (hypertension) ESRD (end stage renal disease) 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 Hypoglycemia due to type 1 diabetes mellitus Hypertension Dyslipidemia Diabetic polyneuropathy associated with type 1 diabetes mellitus Diabetes type 1, uncontrolled ESRD (end stage renal disease) on dialysis ESRD (end stage renal disease) Surgical History History of hemodialysis Hx of amputation Hx of eye surgery Hx of section Family History Father Diabetes mellitus Mother Thyroid disease Pre-diabetes HTN (hypertension) Acute depression Arthritis Social History Household Members: Significant Other Household Members Other:: / - 6 y/o daughter Housing: Apartment Do you presently have visiting nurse or other home services: No Alcohol intake: never Patient Tobacco Use Status: Never used Tobacco service: No Current occupational status: disabled Assessment & Plan Assessment & Plan (1) 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 The following topics were reviewed today: - action time of rapid insulin - importance of bolusing 15 minutes before meals ??? High Alert: Off ??? Low Alert: 70 mg/dl CGM Patient above target 77% At target 22% Below target 1% Patient's average glucose for the past 14 days 258 mg/dL Patient rarely is bolusing for meals. when she does bolus for meals she generally boluses after her glucose is already increasing. reinforced with patient the importance of bolusing for meals 15 minutes before eating Patient is having some hypoglycemia after correcting adjusted correction factor see below explained to patient if he is going to be successful with insulin pump therapy it is important that she enter all carbohydrates into insulin pump before she eats Reviewed with patient if hypoglycemic events increase, to contact environmental educator Reviewed rule of 15 to treat hypoglycemia Troubleshooting after starting new pod or inserting new insulin set: Occlusion, adhesive tape sensitivity, redness Check BG 2 hours after site change Safety information: Importance of a backup plan, for manual injections, proper prescriptions and emergency supplies ketone strips, and rules for testing for ketones Patient understands the basic concepts of pump therapy, how to give insulin for meals and snacks, how to troubleshoot for hyper and hypoglycemia. Setting verified by CDCES Basal rate(s) (units/hour) : 12 AM? to 12 AM 1 units / hr Bolus setting Insulin Carbohydrate Ratio (s) 12 AM? to 12 AM 1:10 Correction Factor / Sensitivity Factor 12 AM? to 12 AM? 1:30 New 12 AM? to 12 AM? 1:32 Active Insulin Time:? 4 hours New 3.5 hours Target(s): 12 AM? to 12 AM 120 mg/dL Correction Threshold 12 AM? to 12 AM 120 mg/dL Patient will follow up with CDE as instructed Patient will contact CDE with questions or concerns, patient given IT number to support in any technical issues related to insulin pump Patient Instructions: patient will follow-up with environmental educator in 6 weeks Coding Level of Care Code Est Pt Level 1 (70989) Diagnoses 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 E10.649
== END 2023-11-13 15:03 | disposition home or self-care (01) ==
PROVIDERS: PCP Student in an Organized Health Care Education/Training Program; Visit Provider Registered Nurse Diabetes Educator
DX: E10.649 Type 1 diabetes mellitus with hypoglycemia without coma (principal)

== ENCOUNTER → 2023-11-13 14:25 | Outpatient (BNVA) | payer MEDICARE, MEDICAID, SELFPAY | PROVIDERS: PCP Student in an Organized Health Care Education/Training Program; Visit Provider Registered Nurse Diabetes Educator | DX: E10.649 Type 1 diabetes mellitus with hypoglycemia without coma (principal); E10.42 Type 1 diabetes mellitus with diabetic polyneuropathy; E10.65 Type 1 diabetes mellitus with hyperglycemia; E10.22 Type 1 diabetes mellitus with diabetic chronic kidney disease; I12.0 Hypertensive chronic kidney disease with stage 5 chronic kidney disease or end stage renal disease; N18.6 End stage renal disease; Z99.2 Dependence on renal dialysis; Z79.4 Long term (current) use of insulin; Z96.41 Presence of insulin pump (external) (internal); Z46.81 Encounter for fitting and adjustment of insulin pump | CPT/HCPCS: 99211 ==

== ENCOUNTER 2023-11-27 10:17 | Outpatient (AMB) | payer MEDICARE, MEDICAID, SELFPAY ==
--- NOTE | 2023-11-27 10:21 | A.OFFVIS_ITS ---
Vital Signs 11/27/23 10:23 Height 5 ft 1 in Weight 145 lb 8.081 oz BMI 27.5 BP 120/78 Blood Pressure Location Rt brachial Position Sitting Pulse 83 Pulse Source Pulse Oximeter Intake Visit Reasons: T1DM/LVM Intake Note: Patient presents today for a 4 weeks follow-up on Type 1 Diabetes Mellitus: Last Diabetic Eye exam: 06/2023 Last Podiatry Exam: 06/2023 Most recent HbA1c: 9.4%, 09/06/2023 Random Glucose- 182mg/dL, Today Core Stripper Required: No Accompanied by: Self / Same As Patient Allergies icodextrin Allergy (Mild, Verified 11/27/23 10:28) Rash oxycodone Adverse Reaction (Severe, Verified 11/27/23 10:28) rash tramadol Adverse Reaction (Severe, Verified 11/27/23 10:28) rash CLOROXINE Allergy (Unknown, Uncoded 11/27/23 10:28) RASH HPI Comments Details: 33 year-old female today for follow-up visit, for diabetes type 1 management in the setting of end-stage renal disease. She was started on an omni pod 5 3 months ago. She reports she had a recent A1C of 9.4%. Dexcom average glucose: [231 ] Glucose Managment indicator [ n/a] % TIme in range: Okay so see [ 39] % very high (above 250) [ 26 he takes computer] % high ?(181-250) [ 35] % in range ?(70-180] [0 ] % low (69-55) [0 ] % ?very low (below 54) [ 83] % TIme CGM Active Details [She is running high after meals and after not correcting for juice. She tends to eat one meal daily and has frequent juice throughout the day. Sh eis currently entering 27 carbs per day ] She has type 1 diabetes diagnosed at age 11. Diabetes has been complicated with diabetic nephropathy with end-stage renal disease and hemodialysis. She has diabetic neuropathy, hypertension dyslipidemia. 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 She sees the mold stamper regularly. She has follow-up December 03. She recently had the nail on her right 1st toe removed. The mold stamper had instructed her to apply an antibiotic cream for several weeks and after that time cleanse daily and cover with a Band-Aid. She states that she has no symptoms of infection to the area. She has been on hemodialysis Sunday and Fridays for about 2 years. saw optho this yr . - no retinopathy per patient reports Most Recent Diabetes Results: Hemoglobin A1c 9.3 % 08/12/19 Cholesterol 203 mg/dL (<200) H 09/06/23 HDL Cholesterol 29 mg/dL (>40) L 09/06/23 Triglycerides 256 mg/dL (<150) H 09/06/23 Creatinine 6.66 mg/dL (0.5-1.4) H* 09/06/23 Blood Urea Nitrogen 22 mg/dL (9-16) H 09/06/23 Sodium 141 mmol/L (135-145) 09/06/23 Potassium 4.4 mmol/L (3.3-5.1) 09/06/23 Chloride 90 mmol/L (96-108) L 09/06/23 Carbon Dioxide 36 mmol/L (22-29) H 09/06/23 Calcium 9.5 mg/dL (8.4-10.2) 09/06/23 AST 26 U/L (5-31) 09/06/23 ALT 31 U/L (0-31) 09/06/23 Total Protein 8.4 g/dL (6.5-8.0) H 09/06/23 Albumin 4.0 g/dL (3.5-5.0) 09/06/23 Basal rate(s) (units/hour) : 12 AM? to 12 AM 1 units / hr Bolus setting Insulin Carbohydrate Ratio (s) 12 AM? to 12 AM 1:10 New 9.5 Correction Factor / Sensitivity Factor 12 AM? to 12 AM? 1:32 NEW 1:30 Active Insulin Time:? 3.5 hours Target(s): 12 AM? to 12 AM 120 mg/dL Correction Threshold 12 AM? to 12 AM 120 mg/dL [facility] Medical History Pulmonary nodules Chronic allergic rhinitis Allergies Kidney failure ESRD (end stage renal disease) on dialysis Anemia HTN (hypertension) ESRD (end stage renal disease) 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 Hypoglycemia due to type 1 diabetes mellitus Hypertension Dyslipidemia Diabetic polyneuropathy associated with type 1 diabetes mellitus Diabetes type 1, uncontrolled ESRD (end stage renal disease) on dialysis ESRD (end stage renal disease) Surgical History History of hemodialysis Hx of amputation Hx of eye surgery Hx of section Family History Father Diabetes mellitus Mother Thyroid disease Pre-diabetes HTN (hypertension) Acute depression Arthritis Social History Household Members: Significant Other Household Members Other:: / - 6 y/o daughter Housing: Apartment Do you presently have visiting nurse or other home services: No Alcohol intake: never Patient Tobacco Use Status: Never used Tobacco service: No Current occupational status: disabled Physical Exam Vital Signs: Last Vital Signs Pulse 83 11/27/23 10:23 BP 120/78 11/27/23 10:23 BMI result Body Mass Index 27.5 Const Other: Absence of Cushingoid features. Absence of acromegalic features. Neck exam reveals nl size thyroid about 15 gms. No thyroid nodules palpable. No carotid bruits present. Heart S1 S2, Reg R/R. No M/R G. Skin exam reveals absence of vitiligo or acanthosis nigricans. Results Reviewed Results Reviewed: Laboratory Last Values Glucose (Clinic) 182 mg/dL (60-115) H 11/27/23 10:25 Laboratory Tests 07/24/23 09/06/23 10:31 10:47 Potassium 4.4 Hgb A1c (Clinic) 9.9 H Hemoglobin A1c % 9.4 H AST 26 ALT 31 Triglycerides 256 H Cholesterol 203 H LDL Cholesterol, Calc 123 H HDL Cholesterol 29 L TSH 0.72 Assessment & Plan Assessment & Plan (1) 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: Code(s): E10.649 - Type 1 diabetes mellitus with hypoglycemia without coma Category: Medical Plan: Type 1 diabetic on an insulin pump with the current average of 231. She is only entering 27 carbs per day. She was encouraged to eat several meals per day and to make sure she adds the carbohydrates for any juice and caloried beverages that she drinks. Her insulin to carb ratio and correction factor were adjusted to give her more insulin with her carbohydrates and she was encouraged to try to stay in auto mode at all times. Her current auto mode is 83 % of the time. She will return in several more weeks to readjust her settings based on her numbers. Coding Level of Care Code Est Pt Level 4 (95142) Complex EM visit Add On G2211 Diagnoses 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 E10.649 Time Spent (min) 30 Comment Time spent reviewing labs/provider notes, sensor reports, face to face, chart doc
[2023-11-27 10:23] VITALS: BP 120/78; PULSE 83; BMI 27.5
[2023-11-27 10:30] LABS: Glucose, Whole Blood 182 mg/dL (60-115)
== END 2023-11-27 12:39 | disposition home or self-care (01) ==
PROVIDERS: PCP Student in an Organized Health Care Education/Training Program; Visit Provider Nurse Practitioner Adult Health
DX: E10.649 Type 1 diabetes mellitus with hypoglycemia without coma (principal)
CPT/HCPCS: 99214; G2211

== ENCOUNTER → 2023-11-27 10:17 | Outpatient (BNVA) | payer MEDICARE, MEDICAID, SELFPAY | PROVIDERS: PCP Student in an Organized Health Care Education/Training Program; Visit Provider Nurse Practitioner Adult Health | DX: E10.65 Type 1 diabetes mellitus with hyperglycemia (principal); E10.649 Type 1 diabetes mellitus with hypoglycemia without coma; E10.21 Type 1 diabetes mellitus with diabetic nephropathy; E10.22 Type 1 diabetes mellitus with diabetic chronic kidney disease; E10.42 Type 1 diabetes mellitus with diabetic polyneuropathy; N18.6 End stage renal disease; Z99.2 Dependence on renal dialysis | CPT/HCPCS: 82947; 99212 ==

== ENCOUNTER 2023-12-13 10:50 | Outpatient (AMB) | payer MEDICARE, MEDICAID, SELFPAY ==
--- NOTE | 2023-12-13 11:04 | A.OFFVIS_ITS ---
Vital Signs 12/13/23 11:10 Height 5 ft 1 in Weight 149 lb 14.629 oz BMI 28.3 BP 122/74 Blood Pressure Location Rt brachial Position Sitting Pulse 92 Pulse Source Pulse Oximeter Intake Visit Reasons: Dm1 Intake Note: Patient presents today for a follow-up for Type 1 Diabetes Mellitus: Last Diabetic Eye exam: 06/2023 Last Podiatry Exam: 06/2023 Most recent HbA1c: 8.1%, 12/13/2023 Random Glucose- 163mg/dL, Today Acting Section Chief Required: No Accompanied by: Self / Same As Patient Allergies icodextrin Allergy (Mild, Verified 12/13/23 13:01) Rash oxycodone Adverse Reaction (Severe, Verified 12/13/23 13:01) rash tramadol Adverse Reaction (Severe, Verified 12/13/23 13:01) rash CLOROXINE Allergy (Unknown, Uncoded 12/13/23 13:01) RASH HPI Comments Details: 33 year-old female today for follow-up visit, for diabetes type 1 management in the setting of end-stage renal disease. She was started on an omni pod 5 3 months ago. A1C is the office today is 8.4%. This is down from July of 9.4% She has type 1 diabetes diagnosed at age 11. Diabetes has been complicated with diabetic nephropathy with end-stage renal disease and hemodialysis. She has diabetic neuropathy, hypertension dyslipidemia. 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 She sees the rental car porter regularly and was last seen earlier this month. She recently had the nail on her right 1st toe removed. The rental car porter had instructed her to apply an antibiotic cream for several weeks and after that time cleanse daily and cover with a Band-Aid. She states that she has no symptoms of infection to the area and this had resolved by the time she saw the rental car porter. Thin diffuse She has been on hemodialysis Sunday and Fridays for about 2 years. She had a full cardiac workup at [facility] 2 years ago and has been on the transplant list at [facility]. saw optho this yr . - no retinopathy per patient reports Most Recent Diabetes Results: Hemoglobin A1c 9.3 % 08/12/19 Cholesterol 203 mg/dL (<200) H 09/06/23 HDL Cholesterol 29 mg/dL (>40) L 09/06/23 Triglycerides 256 mg/dL (<150) H 09/06/23 Creatinine 6.66 mg/dL (0.5-1.4) H* 09/06/23 Blood Urea Nitrogen 22 mg/dL (9-16) H 09/06/23 Sodium 141 mmol/L (135-145) 09/06/23 Potassium 4.4 mmol/L (3.3-5.1) 09/06/23 Chloride 90 mmol/L (96-108) L 09/06/23 Carbon Dioxide 36 mmol/L (22-29) H 09/06/23 Calcium 9.5 mg/dL (8.4-10.2) 09/06/23 AST 26 U/L (5-31) 09/06/23 ALT 31 U/L (0-31) 09/06/23 Total Protein 8.4 g/dL (6.5-8.0) H 09/06/23 Albumin 4.0 g/dL (3.5-5.0) 09/06/23 Basal rate(s) (units/hour) : 12 AM? to 12 AM 1 units / hr Bolus setting Insulin Carbohydrate Ratio (s) 12 AM? to 12 AM 1:9 new 1.8 Correction Factor / Sensitivity Factor 12 AM? to 12 AM? 1:30 Active Insulin Time:? 3.5 hours Target(s): 12 AM? to 12 AM 120 mg/dL Correction Threshold 12 AM? to 12 AM 120 mg/dL [facility] Medical History (Updated 12/13/23 @ 13:34 by Maico Zabala MD) Dyspnea Pulmonary nodules Chronic allergic rhinitis Allergies Kidney failure ESRD (end stage renal disease) on dialysis Anemia HTN (hypertension) ESRD (end stage renal disease) 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 Hypoglycemia due to type 1 diabetes mellitus Hypertension Dyslipidemia Diabetic polyneuropathy associated with type 1 diabetes mellitus Diabetes type 1, uncontrolled ESRD (end stage renal disease) on dialysis ESRD (end stage renal disease) Surgical History History of hemodialysis Hx of amputation Hx of eye surgery Hx of section Family History Father Diabetes mellitus Mother Thyroid disease Pre-diabetes HTN (hypertension) Acute depression Arthritis Social History Household Members: Significant Other Household Members Other:: / - 6 y/o daughter Housing: Apartment Do you presently have visiting nurse or other home services: No Alcohol intake: never Patient Tobacco Use Status: Never used Tobacco service: No Current occupational status: disabled Physical Exam Vital Signs: Last Vital Signs Pulse 92 12/13/23 11:10 BP 122/74 12/13/23 11:10 BMI result Body Mass Index 28.3 Const Other: Absence of Cushingoid features. Absence of acromegalic features. Neck exam reveals nl size thyroid about 15 gms. No thyroid nodules palpable. Heart S1 S2, Reg R/R. No M/R G. Skin exam reveals absence of vitiligo or acanthosis nigricans. Extrem Other: Visual exam of foot performed. No ulcerations or open lesions. No onchomycosis, no callouses. No interdigit fissuring or maceration. Results AMB Hemoglobin A1c AMB Hemoglobin A1c 8.1 % Last Edit by BUNNY Aragon on 12/13/23 11:24 Results Reviewed Results Reviewed: Laboratory Last Values Glucose (Clinic) 163 mg/dL (60-115) H 12/13/23 11:15 Hgb A1c (Clinic) 8.1 % (4.0-6.0) H 12/13/23 11:06 Laboratory Tests 09/06/23 10:47 Plt Count 227 Potassium 4.4 Creatinine 6.66 H* Estimated GFR 7 Random Glucose 113 Estimat Average Glucose 223 Hemoglobin A1c % 9.4 H AST 26 ALT 31 Triglycerides 256 H Cholesterol 203 H LDL Cholesterol, Calc 123 H Vitamin B12 > 2000 H TSH 0.72 Assessment & Plan Assessment & Plan (1) Diabetes type 1, uncontrolled: Code(s): E10.65 - Type 1 diabetes mellitus with hyperglycemia Category: Medical Plan: Patient is a 33-year-old type 1 diabetic on an insulin pump with Dexcom sensor. Her most recent A1c is down to 8.1%. Changes were made to her pump to give him more insulin for carbohydrates which will lower her postprandial meal sugars. Plan The patient was counseled to achieve a target A1C of 7% (154 avg). Fasting blood sugars should be 90-130 in the morning and less than 180 two hours after meals. Reviewed the relationship between poor diabetic control and the developement of complications The patient was counseled to wear closed toe shoes, never walk barefooted and to inspect the feet daily. For any signs of infection or open wound patient should notify PCP or go to urgent care. Symptoms of DKA were reviewed: early: frequent urination, dry mouth, fatigue, feeling ill, severe symptoms: ketones in the urine, abdominal pain, nausea, vomiting and weakness. It is important to hydrate with sugar free liquids every 30 minutes and bring the sugars down to normal levels. Troubleshooting after starting new pod or inserting new insulin set: Occlusion, adhesive tape sensitivity, redness Check BG 2 hours after site change Safety information: Importance of a backup plan, for manual injections, proper prescriptions and emergency supplies ketone strips, and rules for testing for ketones Orders: Orders AMB Hemoglobin A1c Today E10.649 - Type 1 diabetes mellitus with hypoglycemia without coma Coding Level of Care Code Est Pt Level 5 (78877) Diagnoses Diabetes type 1, uncontrolled E10.65 Time Spent (min) 45 Comment Reviewing labs/provider notes, glucose sensor/pump reports, face to face, chart doc
[2023-12-13 11:10] VITALS: BP 122/74; PULSE 92; BMI 28.3
[2023-12-13 11:19] LABS: Glucose, Whole Blood 163 mg/dL (60-115)
== END 2023-12-13 11:49 | disposition home or self-care (01) ==
PROVIDERS: PCP Student in an Organized Health Care Education/Training Program; Visit Provider Nurse Practitioner Adult Health
DX: E10.65 Type 1 diabetes mellitus with hyperglycemia (principal); E10.649 Type 1 diabetes mellitus with hypoglycemia without coma
CPT/HCPCS: 99215

== ENCOUNTER → 2023-12-13 10:50 | Outpatient (BNVA) | payer MEDICARE, MEDICAID, SELFPAY | PROVIDERS: PCP Student in an Organized Health Care Education/Training Program; Visit Provider Nurse Practitioner Adult Health | DX: R06.09 Other forms of dyspnea (principal); J30.9 Allergic rhinitis, unspecified; T78.40XA Allergy, unspecified, initial encounter; R91.8 Other nonspecific abnormal finding of lung field; E10.65 Type 1 diabetes mellitus with hyperglycemia; E10.649 Type 1 diabetes mellitus with hypoglycemia without coma; E10.22 Type 1 diabetes mellitus with diabetic chronic kidney disease; E10.21 Type 1 diabetes mellitus with diabetic nephropathy; N18.6 End stage renal disease; Z99.2 Dependence on renal dialysis; Z79.4 Long term (current) use of insulin; Z96.41 Presence of insulin pump (external) (internal) | CPT/HCPCS: 82947; 83036; 99212 ==

== ENCOUNTER 2023-12-13 12:55 | Outpatient (AMB) | payer MEDICARE, MEDICAID, SELFPAY ==
--- NOTE | 2023-12-13 12:57 | A.OFFVIS_ITS ---
Vital Signs 12/13/23 12:59 Height 5 ft 1 in Weight 149 lb 14.629 oz BMI 28.3 BP 128/70 Blood Pressure Location Rt brachial Position Sitting Pulse 90 Pulse Source Pulse Oximeter Pulse Oximetry (%) 100 Oxygen Delivery Method Room Air Intake Visit Reasons: Pulmonary Nodules Button Facing Machine Operator Required: No Allergies icodextrin Allergy (Mild, Verified 12/13/23 13:01) Rash oxycodone Adverse Reaction (Severe, Verified 12/13/23 13:01) rash tramadol Adverse Reaction (Severe, Verified 12/13/23 13:01) rash CLOROXINE Allergy (Unknown, Uncoded 12/13/23 13:01) RASH HPI Comments Details: The patient is a 33 year woman with known end-stage renal disease on dialysis who apparently has been evaluated for kidney transplantation. As part of the workup the patient did undergo CT scan of the abdomen noting some small right lower lobe pulmonary nodules on the lung windows. Some of the nodules appear to be more of 3 in but. Therefore, the patient was referred to Pulmonary. Currently patient denies any significant shortness of breath. She does have significant nasal congestion and she does have underlying allergies. She has a hard time breathing because of the significant nasal congestion. The patient had been receiving allergy shots in the past. She denies any significant wheezing. The patient does not have any inhalers at this time. I did review her CT scan of the chest demonstrating evidence of tree-in-bud suggesting bronchiolitis. It could have been related to a viral syndrome. The patient also had a CT scan of the chest from October 2021 which white also personally reviewed. At that point the patient had Significant right lower lobe pneumonia. no pulmonary nodules were identified but there were in the however by the airspace disease. The patient will need a formal CT scan of the chest in the near future. 06/14/2023 the patient is here for a pulmonary follow-up visit. The patient overall has been feeling better. The singular in the antihistamine therapy has improved his her symptoms significantly. We did evaluate her blood work she continues to have this persistent eosinophilia consistent with eosinophilic asthma. based on the fact that she did better on the allergy medication she does not need to consider biologics at this time. Explained to her that if her symptoms were to worsen biologic injection will be very effective for her. In addition to that we did review her last CT scans. She had a CT scan back in 2021 demonstrating calcified and noncalcified pulmonary nodules and also the CT scan of the abdomen. Will plan to have her return in 6 months and will repeat the CT scan prior to that visit. Meantime she continues to form the peritoneal dialysis. She is still working closely with the [facility] transplant team and still awaiting for a donor kidney. 12/13/2023 the patient is here for a pulmonary follow-up visit. Overall she is doing okay. She does complaint of nasal congestion postnasal drip. Sometimes he can be embarrassing for her. Moderate severity. She does get some relief from the singular but not completely. She has been using her respiratory inhalers with good effect. She did have a CT scan of the chest which I personally reviewed. She does have pulmonary nodules. Also has some areas of calcifications likely secondary to her dialysis. She is working on her diabetes control now has an insulin pump and her hemoglobin A1c is improved. The pulmonary nodules do not appear to be concerning she does have some areas of bronchiolitis but minimal. I do not see anything on the CT scan that would explain her back pain. As unlikely to be related to any pleural or pulmonary manifestation. However, she does have some shortness of breath with activity. Sometimes shortness of breath and chest tightness. Will provide her with a rescue inhaler that she can use as needed. In the meantime she also have a pulm onary function study which will review when she comes back for follow-up. [facility] Medical History (Updated 12/13/23 @ 21:10 by Maico Zabala MD) Dyspnea Pulmonary nodules Chronic allergic rhinitis Allergies Kidney failure ESRD (end stage renal disease) on dialysis Anemia HTN (hypertension) ESRD (end stage renal disease) 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 Hypoglycemia due to type 1 diabetes mellitus Hypertension Dyslipidemia Diabetic polyneuropathy associated with type 1 diabetes mellitus Diabetes type 1, uncontrolled ESRD (end stage renal disease) on dialysis ESRD (end stage renal disease) Surgical History History of hemodialysis Hx of amputation Hx of eye surgery Hx of section Family History Father Diabetes mellitus Mother Thyroid disease Pre-diabetes HTN (hypertension) Acute depression Arthritis Social History Household Members: Significant Other Household Members Other:: / - 6 y/o daughter Housing: Apartment Do you presently have visiting nurse or other home services: No Alcohol intake: never Patient Tobacco Use Status: Never used Tobacco service: No Current occupational status: disabled Review of Systems Const Denies fever(s) Eyes Denies change in vision ENT Reports nasal congestion, Reports nasal discharge, Reports nasal obstruction and Reports post nasal drip Card Denies chest pain Resp Reports cough and Denies wheezing GI Reports no additional complaints Reports as per HPI Musc Reports no additional complaints Skin/Breast Denies rash Neuro Reports no additional complaints Binh/Lymph Denies lymphadenopathy Aller/Immun Denies wheezing Physical Exam Vital Signs: Last Vital Signs Pulse 90 12/13/23 12:59 BP 128/70 12/13/23 12:59 Pulse Ox 100 12/13/23 12:59 Oxygen Delivery Method Room Air 12/13/23 12:59 BMI result Body Mass Index 28.3 Const General: comfortable HEENT General nose exam: Abnormal mucous membranes and turbinates present erythematous and no nasal polyps Neck Neck: Yes supple Chest Chest palpation & inspection: normal inspection of the chest Resp Effort & Inspection: normal respiratory effort Auscultation: clear to auscultation bilaterally Cardio Heart sounds: S1 normal heart sound present and S2 normal heart sound present GI Palpation (GI): Soft to palpation Skin General skin exam: no rashes or lesions noted Extrem General: Yes no clubbing, cyanosis or edema Results AMB Hemoglobin A1c AMB Hemoglobin A1c 8.1 % Last Edit by BUNNY Aragon on 12/13/23 11:24 Assessment & Plan Assessment & Plan (1) Chronic allergic rhinitis: Code(s): J30.9 - Allergic rhinitis, unspecified Category: Medical (2) Allergies: Code(s): T78.40XA - Allergy, unspecified, initial encounter Category: Medical Qualifiers: Encounter type: initial encounter Qualified Code(s): T78.40XA - Allergy, unspecified, initial encounter (3) Pulmonary nodules: Code(s): R91.8 - Other nonspecific abnormal finding of lung field Category: Medical (4) Dyspnea: Code(s): R06.00 - Dyspnea, unspecified Category: Medical Qualifiers: Dyspnea type: dyspnea on exertion Qualified Code(s): R06.09 - Other forms of dyspnea Plan continue claritin continue Singulair continue fluticasone nasal spray start Ipratropium nasal spray MATI as needed PFTs F/U 4-6 months Orders: Orders PFT pulmonary function test Today R06.00 - Dyspnea, unspecified Medications: New ipratropium bromide administer into each nostril 2 sprays intranasal TID PRN 15 mL 6RF allergy symptoms levalbuterol tartrate 45 mcg/actuation 2 puffs inhalation Q4H PRN 15 ea 11RF for wheezing Refilled loratadine (Claritin) 10 mg PO DAILY 30 tabs 11RF 30 days J30.2 - Other seasonal allergic rhinitis, J45.909 - Unspecified asthma, uncomplicated Coding Level of Care Code Est Pt Level 4 (93987) Diagnoses Chronic allergic rhinitis J30.9 Allergy, initial encounter T78.40XA Encounter type: initial encounter Pulmonary nodules R91.8 Dyspnea on exertion R06.09 Dyspnea type: dyspnea on exertion Time Spent (min) 17
[2023-12-13 12:59] VITALS: BP 128/70; PULSE 90; O2SAT 100; BMI 28.3
== END 2023-12-13 13:35 | disposition home or self-care (01) ==
PROVIDERS: PCP Student in an Organized Health Care Education/Training Program; Visit Provider Hospitalist
DX: J30.9 Allergic rhinitis, unspecified (principal); T78.40XA Allergy, unspecified, initial encounter; R91.8 Other nonspecific abnormal finding of lung field; R06.09 Other forms of dyspnea
CPT/HCPCS: 99214

== ENCOUNTER 2023-12-25 10:49 | Outpatient (AMB) | payer MEDICARE, MEDICAID, SELFPAY ==
--- NOTE | 2023-12-25 11:20 | A.OFFVIS_ITS ---
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: 60 min-conf Crystal Inspector Required: No Accompanied by: Self / Same As Patient Allergies icodextrin Allergy (Mild, Verified 12/13/23 13:01) Rash oxycodone Adverse Reaction (Severe, Verified 12/13/23 13:01) rash tramadol Adverse Reaction (Severe, Verified 12/13/23 13:01) rash CLOROXINE Allergy (Unknown, Uncoded 12/13/23 13:01) RASH HPI Comprehensive Diabetes Asmnt Most Recent Diabetes Results: Hemoglobin A1c 9.3 % 08/12/19 Cholesterol 203 mg/dL (<200) H 09/06/23 HDL Cholesterol 29 mg/dL (>40) L 09/06/23 Triglycerides 256 mg/dL (<150) H 09/06/23 Creatinine 6.66 mg/dL (0.5-1.4) H* 09/06/23 Blood Urea Nitrogen 22 mg/dL (9-16) H 09/06/23 Sodium 141 mmol/L (135-145) 09/06/23 Potassium 4.4 mmol/L (3.3-5.1) 09/06/23 Chloride 90 mmol/L (96-108) L 09/06/23 Carbon Dioxide 36 mmol/L (22-29) H 09/06/23 Calcium 9.5 mg/dL (8.4-10.2) 09/06/23 AST 26 U/L (5-31) 09/06/23 ALT 31 U/L (0-31) 09/06/23 Total Protein 8.4 g/dL (6.5-8.0) H 09/06/23 Albumin 4.0 g/dL (3.5-5.0) 09/06/23 [facility] Medical History (Updated 12/13/23 @ 21:10 by Maico Zabala MD) Dyspnea Pulmonary nodules Chronic allergic rhinitis Allergies Kidney failure ESRD (end stage renal disease) on dialysis Anemia HTN (hypertension) ESRD (end stage renal disease) 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 Hypoglycemia due to type 1 diabetes mellitus Hypertension Dyslipidemia Diabetic polyneuropathy associated with type 1 diabetes mellitus Diabetes type 1, uncontrolled ESRD (end stage renal disease) on dialysis ESRD (end stage renal disease) Surgical History History of hemodialysis Hx of amputation Hx of eye surgery Hx of section Family History Father Diabetes mellitus Mother Thyroid disease Pre-diabetes HTN (hypertension) Acute depression Arthritis Social History Household Members: Significant Other Household Members Other:: / - 6 y/o daughter Housing: Apartment Do you presently have visiting nurse or other home services: No Alcohol intake: never Patient Tobacco Use Status: Never used Tobacco service: No Current occupational status: disabled Assessment & Plan Assessment & Plan (1) 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 The following topics were reviewed today: - activity mode - correcting high glucose numbers through insulin ??? High Alert: Off ??? Low Alert: 70 mg/dl CGM Patient above target 68% At target 31% Below target 1% Patient's average glucose for the past 14 days 235 mg/dL Automode 95% Patient is using Activity 37% of the time Patient continues to struggle bolusing for meals. when she does bolus for meals she generally boluses after her glucose is already increasing. Patient is also using activity mode when she feels her glucose levels are dropping to low. Suggested to patient is did of using activity mode we could change pump settings so she does not have to use the activity mode to try and prevent hypoglycemia. At this time patient wants to leave pump settings as they are Reinforced with patient the importance of bolusing for meals 15 minutes before eating Patient is having some hypoglycemia after correcting adjusted correction factor see below Explained to patient to be successful with insulin pump therapy it is important that she enter all carbohydrates into insulin pump before she eats, and does co rrection when glucose levels are elevated instead of waiting for insulin pump to correct high glucose. Reviewed with patient if hypoglycemic events increase, to contact personal development educator Reviewed rule of 15 to treat hypoglycemia Troubleshooting after starting new pod or inserting new insulin set: Occlusion, adhesive tape sensitivity, redness Check BG 2 hours after site change Safety information: Importance of a backup plan, for manual injections, proper prescriptions and emergency supplies ketone strips, and rules for testing for ketones Patient understands the basic concepts of pump therapy, how to give insulin for meals and snacks, how to troubleshoot for hyper and hypoglycemia. Setting verified by CDCES Basal rate(s) (units/hour) : 12 AM? to 12 AM 1.1 units / hr Bolus setting Insulin Carbohydrate Ratio (s) 12 AM? to 12 AM 1:8 Correction Factor / Sensitivity Factor 12 AM? to 12 AM? 1:30 Active Insulin Time:?3.5 hours Target(s): 12 AM? to 12 AM 120 mg/dL Correction Threshold 12 AM? to 12 AM 120 mg/dL Patient will follow up with CDE as instructed Patient will contact CDE with questions or concerns, patient given IT number to support in any technical issues related to insulin pump Patient Instructions: Patient will follow-up with personal development educator in 3 months Patient will contact personal development educator with questions or concerns Coding Level of Care Code Est Pt Level 1 (00085) Diagnoses 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 E10.649
== END 2023-12-25 11:21 | disposition home or self-care (01) ==
PROVIDERS: PCP Student in an Organized Health Care Education/Training Program; Visit Provider Registered Nurse Diabetes Educator
DX: E10.649 Type 1 diabetes mellitus with hypoglycemia without coma (principal)

== ENCOUNTER → 2023-12-25 10:49 | Outpatient (BNVA) | payer MEDICARE, MEDICAID, SELFPAY | PROVIDERS: PCP Student in an Organized Health Care Education/Training Program; Visit Provider Registered Nurse Diabetes Educator | DX: Z46.81 Encounter for fitting and adjustment of insulin pump (principal); E10.649 Type 1 diabetes mellitus with hypoglycemia without coma; Z79.4 Long term (current) use of insulin | CPT/HCPCS: 99211 ==

== ENCOUNTER 2024-01-24 09:53 | Outpatient (AMB) | payer MEDICARE, MEDICAID, SELFPAY ==
--- NOTE | 2024-01-24 10:01 | A.OFFVIS_ITS ---
Vital Signs 01/24/24 10:10 Height 5 ft 1 in Weight 145 lb 8.081 oz BMI 27.5 BP 132/78 Blood Pressure Location Rt brachial Position Sitting Pulse 75 Pulse Source Pulse Oximeter Intake Visit Reasons: dm/CONFIRMED Intake Note: Patient presents today for a follow-up for Type 1 Diabetes Mellitus: Last Diabetic Eye exam: 06/2023 Last Podiatry Exam: 06/2023 Most recent HbA1c: 8.1%, 12/13/2023 Random Glucose- 139mg/dL, Today Utility Sales And Service Manager Required: No Accompanied by: Self / Same As Patient Allergies icodextrin Allergy (Mild, Verified 01/24/24 10:14) Rash oxycodone Adverse Reaction (Severe, Verified 01/24/24 10:14) rash tramadol Adverse Reaction (Severe, Verified 01/24/24 10:14) rash CLOROXINE Allergy (Unknown, Uncoded 01/24/24 10:14) RASH HPI Comments Details: 33 year-old female today for follow-up visit, for diabetes type 1 management in the setting of end-stage renal disease. She was started on an omni pod earlier this year. Hgb A1C 12/08/23 8.1% This is down from July of 9.9% pre pump She has type 1 diabetes diagnosed at age 11. Diabetes has been complicated with diabetic nephropathy with end-stage renal disease and hemodialysis. She has diabetic neuropathy, hypertension dyslipidemia. Dexcom average glucose: [ 231] 14 day continuous glucose monitor report reviewed Days with CGM data [46.4 ] % TIme in ranges: 35 % very high (above 250) 32 % high ?(181-250) 32 % in range ?(70-180] 1 % low (69-55) 0 % ?very low (below 54) Auto mode 87% of the time entering in only 35 coverage per day Basal 57% 16.8 units bolus 43% 12.8 units total daily dose 29.6 Interpretation [ escalation in glucose with meals which she is often not entering carbs or entering the carbs after she rises. When she does have an increase postprandial the corrections do take her down to a good range] Basal rate(s) (units/hour) : 12 AM? to 12 AM 1.1 units / hr new 1.25 Bolus setting Insulin Carbohydrate Ratio (s) 12 AM? to 12 AM 1:8 new 1.7 Correction Factor / Sensitivity Factor 12 AM? to 12 AM? 1:30 Active Insulin Time:? 3.5 hours Target(s): 12 AM? to 12 AM 120 mg/dL Correction Threshold 12 AM? to 12 AM 120 mg/dL [facility] Medical History (Updated 12/13/23 @ 21:10 by Maico Zabala MD) Dyspnea Pulmonary nodules Chronic allergic rhinitis Allergies Kidney failure ESRD (end stage renal disease) on dialysis Anemia HTN (hypertension) ESRD (end stage renal disease) 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 Hypoglycemia due to type 1 diabetes mellitus Hypertension Dyslipidemia Diabetic polyneuropathy associated with type 1 diabetes mellitus Diabetes type 1, uncontrolled ESRD (end stage renal disease) on dialysis ESRD (end stage renal disease) Surgical History History of hemodialysis Hx of amputation Hx of eye surgery Hx of section Family History Father Diabetes mellitus Mother Thyroid disease Pre-diabetes HTN (hypertension) Acute depression Arthritis Social History Household Members: Significant Other Household Members Other:: / - 6 y/o daughter Housing: Apartment Do you presently have visiting nurse or other home services: No Alcohol intake: never Patient Tobacco Use Status: Never used Tobacco service: No Current occupational status: disabled Physical Exam Vital Signs: Last Vital Signs Pulse 75 01/24/24 10:10 BP 132/78 01/24/24 10:10 BMI result Body Mass Index 27.5 Const Other: Absence of Cushingoid features. Absence of acromegalic features. Neck exam reveals nl size thyroid about 15 gms. No thyroid nodules palpable. Skin exam reveals absence of vitiligo or acanthosis nigricans. No edema Office Procedures Glucose Monitoring Details Details: See HPI 80310 - Glucose monitoring, continuous-physician I&R Procedure code (CPT) selection complete Results Reviewed Results Reviewed: Laboratory Last Values Glucose (Clinic) 139 mg/dL (60-115) H 01/24/24 10:13 Assessment & Plan Assessment & Plan (1) Diabetes type 1, uncontrolled: Code(s): E10.65 - Type 1 diabetes mellitus with hyperglycemia Category: Medical Plan: Type 1 diabetic with end-stage renal disease on HD on [facility] transplant list presents for follow up visit. To slight instruction at her last visit she is not entering in all of her carbs in his only entering in 35 per day and these are often entered after her sugars start to rise. She reports she is comfortable with carb counting in his agreed to start entering the carbs 15 minutes before the today I increased her background so that if she has thrown out of auto mode she will get a more insulin in carb ratio was adjusted. She will call for adjustment if she is running too low and has a follow up with the Elena Centeno CDE as she is having some problems with the pump go into manual mode. She is anuric and I have ordered blood ketone monitor and strips. I will request a medical collections specialist do a prior authorization to obtain these. Orders: Orders AMB Glucose Monitoring Today E10.65 - Type 1 diabetes mellitus with hyperg lycemia Medications: New blood ketone glucose monitor (Precision Xtra Ketone-Glucose Monitor kit) prn glucose over 250, illness, nausea or vomiting 1 ea 0RF ketone blood test (Precision Xtra B-Ketone strips) prn glucose over 250, illness, nausea or vomiting 30 ea 3RF E10.65 - Type 1 diabetes mellitus with hyperglycemia Patient Instructions: Symptoms of DKA were reviewed: early: frequent urination, dry mouth, fatigue, feeling ill, severe symptoms: ketones in the urine, abdominal pain, nausea, vomiting and weakness. It is important to hydrate with sugar free liquids every 30 minutes and bring the sugars down to normal levels. Troubleshooting after starting new pod or inserting new insulin set: Occlusion, adhesive tape sensitivity, redness Check BG 2 hours after site change Safety information: Importance of a backup plan, for manual injections, proper prescriptions and emergency supplies ketone strips, and rules for testing for ketones Coding Level of Care Code Est Pt Level 4 (36137) Diagnoses Diabetes type 1, uncontrolled E10.65 CPT Codes Details - CPT: 80942 - Glucose monitoring, continuous-physician I&R ([id number]) Time Spent (min) 30 Comment Reviewing labs/provider notes, glucose sensor/pump reports, face to face, chart doc
[2024-01-24 10:10] VITALS: BP 132/78; PULSE 75; BMI 27.5
[2024-01-24 10:17] LABS: Glucose, Whole Blood 139 mg/dL (60-115)
== END 2024-01-24 10:35 | disposition home or self-care (01) ==
PROVIDERS: PCP Student in an Organized Health Care Education/Training Program; Visit Provider Nurse Practitioner Adult Health
DX: E10.65 Type 1 diabetes mellitus with hyperglycemia (principal)
CPT/HCPCS: 95251; 99214

== ENCOUNTER → 2024-01-24 09:53 | Outpatient (BNVA) | payer MEDICARE, MEDICAID, SELFPAY | PROVIDERS: PCP Student in an Organized Health Care Education/Training Program; Visit Provider Nurse Practitioner Adult Health | DX: E10.22 Type 1 diabetes mellitus with diabetic chronic kidney disease (principal); E10.21 Type 1 diabetes mellitus with diabetic nephropathy; E10.65 Type 1 diabetes mellitus with hyperglycemia; I12.0 Hypertensive chronic kidney disease with stage 5 chronic kidney disease or end stage renal disease; N18.6 End stage renal disease; Z99.2 Dependence on renal dialysis; E78.5 Hyperlipidemia, unspecified | CPT/HCPCS: 82947; 99212 ==

== ENCOUNTER 2024-02-28 09:19 | Outpatient (AMB) | payer MEDICARE, MEDICAID, SELFPAY ==
--- NOTE | 2024-02-27 07:57 | A.OFFVIS_ITS ---
Vital Signs 02/28/24 09:26 Height 5 ft 1 in Weight 144 lb 2.917 oz BMI 27.2 BP 144/84 H Blood Pressure Location Rt brachial Position Sitting Pulse 87 Pulse Source Pulse Oximeter Intake Visit Reasons: DM Intake Note: Patient present today to follow up on Type 1 Diabetes Mellitus. Last Diabetic Eye exam: 06/2023 Last Podiatry Visit: 06/2023 Random Glucose: 157 mg/dl HgA1C: 8.1% 12/13/23 Certified Master Safe Technician Required: No Accompanied by: Self / Same As Patient Allergies icodextrin Allergy (Mild, Verified 02/28/24 09:26) Rash oxycodone Adverse Reaction (Severe, Verified 02/28/24 09:26) rash tramadol Adverse Reaction (Severe, Verified 02/28/24 09:) rash CLOROXINE Allergy (Unknown, Uncoded 02/28/24 09:26) RASH HPI Comments Details: 33 year-old female today for follow-up visit, for diabetes type 1 management in the setting of end-stage renal disease. She was started on an omni pod earlier this year. Hgb A1C 12/08/23 8.1% This is down from July of 9.9% pre pump. She was last seen by myself 01/24/2024 at which time insulin pump settings were changed to give her more pre meal insulin. She has type 1 diabetes diagnosed at age 11. Diabetes has been complicated with diabetic nephropathy with end-stage renal disease and hemodialysis. She has diabetic neuropathy, hypertension dyslipidemia. The patient is in uric and was given a prescription last visit for precision blood ketone monitoring. She was unable to obtain this through her pharmacy. She has been on hemodialysis Sunday and Fridays for about 2 years. She had a full cardiac workup at [facility] 2 years ago and has been on the transplant list at [facility]. saw optho this yr - no retinopathy per patient reports Has neuropathy: Symptoms include numbness, tingling she is followed by Podiatry has an appt coming up Last LDL 123 not on statin contol: Dexcom average glucose: 227 14 day continuous glucose monitor report reviewed Glucose Managment indicator 8.7 % Days with CGM data 93 % TIme in ranges: 36 % very high (above 250) 25 % high ?(181-250) 38 % in range ?(70-180] 1 % low (69-55) Less than 1 % ?very low (below 54) 70 Standard Deviation Interpretation: Occasional low at 07:00 correction does bring her down to baseline and at times too low but does stay up for quite some time after meals. Basal rate(s) (units/hour) : 12 AM? to 12 AM 1.25units / hr Bolus setting Insulin Carbohydrate Ratio (s) 12 AM? to 12 AM 1:7 new Correction Factor / Sensitivity Factor 12 AM? to 12 AM? 1:30 new 1:32 Active Insulin Time:? 3.5 hours Target(s): 12 AM? to 12 AM 120 mg/dL Correction Threshold 12 AM? to 12 AM 120 mg/dL [facility] Medical History (Updated 12/13/23 @ 21:10 by Maico Zabala MD) Dyspnea Pulmonary nodules Chronic allergic rhinitis Allergies Kidney failure ESRD (end stage renal disease) on dialysis Anemia HTN (hypertension) ESRD (end stage renal disease) 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 Hypoglycemia due to type 1 diabetes mellitus Hypertension Dyslipidemia Diabetic polyneuropathy associated with type 1 diabetes mellitus Diabetes type 1, uncontrolled ESRD (end stage renal disease) on dialysis ESRD (end stage renal disease) Surgical History History of hemodialysis Hx of amputation Hx of eye surgery Hx of section Family History Father Diabetes mellitus Mother Thyroid disease Pre-diabetes HTN (hypertension) Acute depression Arthritis Social History Household Members: Significant Other Household Members Other:: / - 6 y/o daughter Housing: Apartment Do you presently have visiting nurse or other home services: No Alcohol intake: never Patient Tobacco Use Status: Never used Tobacco service: No Current occupational status: disabled Physical Exam Vital Signs: Last Vital Signs Pulse 87 02/28/24 09:26 BP 144/84 H 02/28/24 09:26 BMI result Body Mass Index 27.2 Const Other: Absence of Cushingoid features. Absence of acromegalic features. Neck exam reveals nl size thyroid about 15 gms. No thyroid nodules palpable. Heart S1 S2, Reg R/R. No M/R G. Skin exam reveals absence of vitiligo or acanthosis nigricans. Office Procedures Glucose Monitoring Details Details: See HPI 14811 - Glucose monitoring, continuous-physician I&R Procedure code (CPT) selection complete Results Reviewed Results Reviewed: Laboratory Last Values Glucose (Clinic) 157 mg/dL (60-115) H 02/28/24 09:31 Assessment & Plan Assessment & Plan (1) Diabetes type 1, uncontrolled: Code(s): E10.65 - Type 1 diabetes mellitus with hyperglycemia Category: Medical Plan: Type 1 diabetic with end-stage renal disease and neuropathy on HD on [facility] transplant list presents for follow up visit. Her A1cs have gradually been improving with the last 8.1 down from 9.9% Pump settings were changed to give her more pre meal insulin for carbohydrates but with a slight change in correction factor to prevent her from becoming low when she rises too high. She will follow up with Elena ARRIOLA in 4 weeks and see me the month afterwards. We will ask staff to submit a prior authorization for precision meter and blood ketone strips as she is anuric and has had prior history of DKA and is unable to use urine ketone test strips The patient had an opportunity to ask questions regarding treatment plan. The patient expressed understanding and agreement with the above treatment plan. The patient is aware they should contact our office by phone for worsening glucose readings or for any low blood sugars which may warrant a change in diabetes medication. Compliance is encouraged with medications and any followup testing/consults which may have been ordered. Orders: Orders AMB Glucose Monitoring Today E10.65 - Type 1 diabetes mellitus with hyperglycemia Patient Instructions: The patient was counseled to achieve a target A1C of 7% (154 avg). Fasting blood sugars should be 90-130 in the morning and less than 180 two hours after meals. Reviewed the relationship between poor diabetic control and the development of complications. Troubleshooting after starting new pod or inserting new insulin set: Occlusion, adhesive tape sensitivity, redness Check BG 2 hours after site change Safety information: Importance of a backup plan, for manual injections, proper prescriptions and emergency supplies ketone strips, and rules for testing for ketones Coding Level of Care Code Est Pt Level 4 (58165) Diagnoses Diabetes type 1, uncontrolled E10.65 CPT Codes Details - CPT: 86506 - Glucose monitoring, continuous-physician I&R ([id number]) Time Spent (min) 30 Comment Reviewing labs/provider notes, glucose sensor/pump reports, face to face, chart doc
[2024-02-28 09:26] VITALS: BP 144/84; PULSE 87; BMI 27.2
[2024-02-28 09:35] LABS: Glucose, Whole Blood 157 mg/dL (60-115)
== END 2024-02-28 09:42 | disposition home or self-care (01) ==
PROVIDERS: PCP Student in an Organized Health Care Education/Training Program; Visit Provider Nurse Practitioner Adult Health
DX: E10.65 Type 1 diabetes mellitus with hyperglycemia (principal)
CPT/HCPCS: 95251; 99214

== ENCOUNTER → 2024-02-28 09:19 | Outpatient (BNVA) | payer MEDICARE, MEDICAID, SELFPAY | PROVIDERS: PCP Student in an Organized Health Care Education/Training Program; Visit Provider Nurse Practitioner Adult Health | DX: E10.65 Type 1 diabetes mellitus with hyperglycemia (principal); E10.40 Type 1 diabetes mellitus with diabetic neuropathy, unspecified; E10.22 Type 1 diabetes mellitus with diabetic chronic kidney disease; N18.6 End stage renal disease | CPT/HCPCS: 82947; 99212 ==

== ENCOUNTER 2024-03-25 10:22 | Outpatient (AMB) | payer MEDICARE, MEDICAID, SELFPAY ==
--- NOTE | 2024-03-25 10:42 | A.OFFVIS_ITS ---
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: 30 min Adjudication Specialist Required: No Accompanied by: Self / Same As Patient Allergies icodextrin Allergy (Mild, Verified 02/28/24 09:) Rash oxycodone Adverse Reaction (Severe, Verified 02/28/24 09:) rash tramadol Adverse Reaction (Severe, Verified 02/28/24:) rash CLOROXINE Allergy (Unknown, Uncoded 02/28/24 09:) RASH HPI Comprehensive Diabetes Asmnt Most Recent Diabetes Results: Hemoglobin A1c 9.3 % 08/12/19 Cholesterol 203 mg/dL (<200) H 09/06/23 HDL Cholesterol 29 mg/dL (>40) L 09/06/23 Triglycerides 256 mg/dL (<150) H 09/06/23 Creatinine 6.66 mg/dL (0.5-1.4) H* 09/06/23 Blood Urea Nitrogen 22 mg/dL (9-16) H 09/06/23 Sodium 141 mmol/L (135-145) 09/06/23 Potassium 4.4 mmol/L (3.3-5.1) 09/06/23 Chloride 90 mmol/L (96-108) L 09/06/23 Carbon Dioxide 36 mmol/L (22-29) H 09/06/23 Calcium 9.5 mg/dL (8.4-10.2) 09/06/23 AST 26 U/L (5-31) 09/06/23 ALT 31 U/L (0-31) 09/06/23 Total Protein 8.4 g/dL (6.5-8.0) H 09/06/23 Albumin 4.0 g/dL (3.5-5.0) 09/06/23 [facility] Medical History (Updated 12/13/23 @ 21:10 by Maico Zabala MD) Dyspnea Pulmonary nodules Chronic allergic rhinitis Allergies Kidney failure ESRD (end stage renal disease) on dialysis Anemia HTN (hypertension) ESRD (end stage renal disease) 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 Hypoglycemia due to type 1 diabetes mellitus Hypertension Dyslipidemia Diabetic polyneuropathy associated with type 1 diabetes mellitus Diabetes type 1, uncontrolled ESRD (end stage renal disease) on dialysis ESRD (end stage renal disease) Surgical History History of hemodialysis Hx of amputation Hx of eye surgery Hx of section Family History Father Diabetes mellitus Mother Thyroid disease Pre-diabetes HTN (hypertension) Acute depression Arthritis Social History Household Members: Significant Other Household Members Other:: / - 6 y/o daughter Housing: Apartment Do you presently have visiting nurse or other home services: No Alcohol intake: never Patient Tobacco Use Status: Never used Tobacco service: No Current occupational status: disabled Assessment & Plan Assessment & Plan (1) Diabetes type 1, uncontrolled: Code(s): E10.65 - Type 1 diabetes mellitus with hyperglycemia Plan: Patient presents for pump training for Omnipod 5 pump and CGM training today. The following topics were reviewed today: - transitioning from Dexcom G6 to Dexcom G7 - importance of entering all carbohydrates into insulin pump ??? High Alert: Off ??? Low Alert: 70 mg/dl CGM Patient above target 66% At target 35% Below target 1% Patient's average glucose for the past 14 days 210 mg/dL Automode 99% Basal: 59% Bolus:41% Patient continues to struggle bolusing prior to meals. when she does bolus for meals she generally boluses after her glucose is already increasing. Reinforced with patient the importance of bolusing for meals 15 minutes before eating Patient is having some hypoglycemia after correcting adjusted correction factor see below Explained to patient to be successful with insulin pump therapy it is important that she enter all carbohydrates into insulin pump before she eats or drinks high carbohydrate fluids, and does correction when glucose levels are elevated instead of waiting for insulin pump to correct high glucose. Reviewed with patient if hypoglycemic events increase, to contact rn diabetes educator Reviewed rule of 15 to treat hypoglycemia Encourage patient to check to see if she is receiving pods that are compatible with Dexcom G7 sensors, when she has used remaining Dexcom G6 sensors and she has compatible pods we can upgrade to Dexcom G7 Troubleshooting after starting new pod or inserting new insulin set: Occlusion, adhesive tape sensitivity, redness Check BG 2 hours after site change Patient understands the basic concepts of pump therapy, how to give insulin for meals and snacks, how to troubleshoot for hyper and hypoglycemia. Setting verified by CDCES, no changes made to patient's pump settings at today's visit Basal rate(s) (units/hour) : 12 AM? to 12 AM 1.25 units / hr Bolus setting Insulin Carbohydrate Ratio (s) 12 AM? to 12 AM 1:6.8 Correction Factor / Sensitivity Factor 12 AM? to 12 AM? 1:32 Active Insulin Time:?3.5 hours Target(s): 12 AM? to 12 AM 120 mg/dL Correction Threshold 12 AM? to 12 AM 120 mg/dL Patient will follow up with CDE as instructed Patient will contact CDE with questions or concerns, patient given IT number to support in any technical issues related to insulin pump Patient Instructions: Patient will contact rn diabetes educator if she wishes to move appointment up to switch from Dexcom G6 to Dexcom G7 sensors Coding Level of Care Code Est Pt Level 1 (76215) Diagnoses Diabetes type 1, uncontrolled E10.65
--- OUTSIDE RECORDS SUMMARY | 2024-03-26 19:49 | XMS_ITS ---
Author Organization [facility] Address [address] [place] [address] Care Team Providers Care Foundation Maker Name Role Phone Dory Martin Unavailable [phone] Encounters Encounter Location Date Provider Diagnosis [facility] [address] [place] [address] 02/13/2023 Dory Martin Plan Of Treatment No Information Progress Notes * Mansoor MTZlDOB: 2 (33 yo F)Acc No.[id number]:02/13/2023 Progress Notes Patient:?Natali MTZ Provider:?Dory Martin DPM :1990???Age:32 Y???Sex:Female D ate:02/13/2023 [id number] Subjective: * Chief Complaints: * ??? * Medical History:? Objective: * Vitals:? Assessment: Plan: * Treatment: * Images: * The named appointment provid er may or may not be the originator of this progress note, and it is not deemed complete until electronically signed by the appointment provider. Sign off status: Pending * Provider:?Dory Martin DPM Date:? Generated for Enoc mckinney/Siri/Erickitting on:?03/26/2024 07:49 PM EST
--- OUTSIDE RECORDS SUMMARY | 2024-03-26 19:50 | XMS_ITS | Patient Health Record ---
Author Organization [facility] Address [address] [facility] [place] [address] Care Team Providers Care Counter Caser Name Role Phone Dory Martin Unavailable [phone] Reason For Referral No Information Plan Of Treatment No Information Insurance Providers Payer Name Payer Address Payer Phone Subscriber Number Group Number Insured Name Patient Relationship to Insured Coverage Start Date Coverage End Date Medicare National [employer] [address] [place] [address] [phone] Natali Mtz Self - patient is the insured
== END 2024-03-25 10:45 | disposition home or self-care (01) ==
PROVIDERS: PCP Student in an Organized Health Care Education/Training Program; Visit Provider Registered Nurse Diabetes Educator
DX: E10.65 Type 1 diabetes mellitus with hyperglycemia (principal)

== ENCOUNTER → 2024-03-25 10:22 | Outpatient (BNVA) | payer MEDICARE, MEDICAID, SELFPAY | PROVIDERS: PCP Student in an Organized Health Care Education/Training Program; Visit Provider Registered Nurse Diabetes Educator | DX: Z46.81 Encounter for fitting and adjustment of insulin pump (principal); E10.65 Type 1 diabetes mellitus with hyperglycemia | CPT/HCPCS: 99211 ==

== ENCOUNTER 2024-04-24 10:04 | Outpatient (AMB) | payer MEDICARE, MEDICAID, SELFPAY ==
[2024-04-24 10:06] VITALS: BP 132/86; PULSE 82; BMI 29.6
--- NOTE | 2024-04-24 10:06 | A.OFFVIS_ITS ---
Vital Signs 04/24/24 10:06 Height 5 ft 1 in Weight 156 lb 8.451 oz BMI 29.6 BP 132/86 Blood Pressure Location Rt brachial Position Sitting Pulse 82 Pulse Source Pulse Oximeter Intake Visit Reasons: DM Intake Note: Patient present today to follow up on Type 1 Diabetes Mellitus. Last Diabetic Eye exam: 06/2023 Last Podiatry Visit: 06/2023 Most Recent HgA1C: 8.0%, 04/24/2024 Random Glucose: 168 mg/dL, Today Customer Advocate Required: No Accompanied by: Self / Same As Patient Allergies icodextrin Allergy (Mild, Verified 02/28/24 09:26) Rash oxycodone Adverse Reaction (Severe, Verified 02/28/24 09:26) rash tramadol Adverse Reaction (Severe, Verified 02/28/24 09:26) rash CLOROXINE Allergy (Unknown, Uncoded 02/28/24 09:26) RASH HPI Comments Details: 33 year-old female today for follow-up visit, for diabetes type 1 management in the setting of end-stage renal disease. She was started on an omni pod earlier this year. Hgb A1C 12/08/23 8.1% This is down from July of 9.9% pre pump. She was last seen by myself 01/24/2024 at which time insulin pump settings were changed to give her more pre meal insulin. She has type 1 diabetes diagnosed at age 11. Diabetes has been complicated with diabetic nephropathy with end-stage renal disease and hemodialysis. She has diabetic neuropathy, hypertension dyslipidemia. The patient is in uric and was given a prescription last visit for precision blood ketone monitoring. She was unable to obtain this through her pharmacy. She has been on hemodialysis Sunday and Fridays for about 2 years. She had a full cardiac workup at [facility] 2 years ago and has been on the transplant list at [facility]. saw optho this yr - no retinopathy per patient reports Has neuropathy: Symptoms include numbness, tingling she is followed by Podiatry has an appt coming up Last LDL 123 not on statin contol: Dexcom average glucose: 211 14 day continuous glucose monitor report reviewed Glucose Managment indicator [ 8.4] % Days with CGM data 90 % TIme in ranges: 31 % very high (above 250) 28% high ?(181-250) 38% in range ?(70-180] 0 2 % low (69-55) [1] % ?very low (below 54) Interpretation she is having consistent postprandial elevations often triggered by not bolusing pre meal Auto mode 96% of the time average daily carbs 44.6 with 1.2 entries Total daily dose of insulin 35.2 Basal 65% 22.9 units Bolus 35% 12.3 units Basal rate(s) (units/hour) : 12 AM? to 12 AM 1.25units / hr Bolus setting Insulin Carbohydrate Ratio (s) 12 AM? to 12 AM 1:7 new Correction Factor / Sensitivity Factor 12 AM? to 12 AM? 1:30 new 1:32 Active Insulin Time:? 3.5 hours Target(s): 12 AM? to 12 AM 120 mg/dL Correction Threshold 12 AM? 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 Hypoglycemia due to type 1 diabetes mellitus Hypertension Dyslipidemia Diabetic polyneuropathy associated with type 1 diabetes mellitus Diabetes type 1, uncontrolled ESRD (end stage renal disease) on dialysis ESRD (end stage renal disease) Surgical History History of hemodialysis Hx of amputation Hx of eye surgery Hx of section Family History Father Diabetes mellitus Mother Thyroid disease Pre-diabetes HTN (hypertension) Acute depression Arthritis Social History Household Members: Significant Other Household Members Other:: / - 6 y/o daughter Housing: Apartment Do you presently have visiting nurse or other home services: No Alcohol intake: never Patient Tobacco Use Status: Never used Tobacco service: No Current occupational status: disabled Physical Exam Vital Signs: Last Vital Signs Pulse 82 04/24/24 10:06 BP 132/86 04/24/24 10:06 BMI result Body Mass Index 29.6 Results AMB Hemoglobin A1c AMB Hemoglobin A1c 8.0 % Last Edit by BUNNY Aragon on 04/24/24 10:22 Results Reviewed Results Reviewed: Laboratory Last Values Glucose (Clinic) 168 mg/dL (60-115) H 04/24/24 10:12 Hgb A1c (Clinic) 8.0 % (4.0-6.0) H 04/24/24 10:21 Assessment & Plan Assessment & Plan Orders: Orders AMB Hemoglobin A1c Today E10.65 - Type 1 diabetes mellitus with hyperglycemia Coding
[2024-04-24 10:16] LABS: Glucose, Whole Blood 168 mg/dL (60-115)
--- OUTSIDE RECORDS SUMMARY | 2024-04-24 10:36 | XMS_ITS | Patient Health Record ---
Author Organization [facility] choi Moran Address [address] [facility] [address] Care Team Providers Care Cryptographic Vulnerability Analyst Name Role Phone Dory Martin Unavailable [phone] Reason For Referral No Information Plan Of Treatment No Information Insurance Providers Payer Name Payer Address Payer Phone Subscriber Number Group Number Insured Name Patient Relationship to Insured Coverage Start Date Coverage End Date Medicare National [employer] [address] [place] [address] [phone] Natali Mtz Self - patient is the insured
--- OUTSIDE RECORDS SUMMARY | 2024-04-24 10:36 | XMS_ITS ---
Author Organization [facility] Address [address] [place] [address] Care Team Providers Care Consumer Insights Specialist Name Role Phone Dory Martin Unavailable [phone] Encounters Encounter Location Date Provider Diagnosis [facility] [address] [place] [address] 02/13/2023 Dory Martin Plan Of Treatment No Information Progress Notes * Mansoor MTZlDOB: 2 (33 yo F)Acc No.[id number]:02/13/2023 Progress Notes Patient:?Natali MTZ Provider:?Dory Mratin DPM :1990???Age:32 Y???Sex:Female D ate:02/13/2023 [place] Subjective: * Chief Complaints: * ??? * Medical History:? Objective: * Vitals:? Assessment: Plan: * Treatment: * Images: * The named appointment provid er may or may not be the originator of this progress note, and it is not deemed complete until electronically signed by the appointment provider. Sign off status: Pending * Provider:?Dory Martin DPM Date:? Generated for Enoc mckinney/Siri/Erickitting on:?04/24/2024 10:35 AM EST
== END 2024-04-24 10:51 | disposition home or self-care (01) ==
PROVIDERS: PCP Student in an Organized Health Care Education/Training Program; Visit Provider Nurse Practitioner Adult Health
DX: E10.65 Type 1 diabetes mellitus with hyperglycemia (principal)

== ENCOUNTER → 2024-04-24 10:04 | Outpatient (BNVA) | payer MEDICARE, MEDICAID, SELFPAY | PROVIDERS: PCP Student in an Organized Health Care Education/Training Program; Visit Provider Nurse Practitioner Adult Health | DX: E10.65 Type 1 diabetes mellitus with hyperglycemia (principal); Z46.81 Encounter for fitting and adjustment of insulin pump; E10.42 Type 1 diabetes mellitus with diabetic polyneuropathy; Z79.4 Long term (current) use of insulin; Z99.2 Dependence on renal dialysis | CPT/HCPCS: 82947; 83036; 99212 ==

== ENCOUNTER 2024-06-26 10:08 | Outpatient (AMB) | payer MEDICARE, MEDICAID, SELFPAY ==
--- NOTE | 2024-06-26 10:46 | MHC.AMDMED ---
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: 60 min Allergies icodextrin Allergy (Mild, Verified 06/26/24 10:16) Rash oxycodone Adverse Reaction (Severe, Verified 06/26/24 10:16) rash tramadol Adverse Reaction (Severe, Verified 06/26/24 10:16) rash CLOROXINE Allergy (Unknown, Uncoded 06/26/24 10:16) RASH HPI Comprehensive Diabetes Asmnt Most Recent Diabetes Results: Hemoglobin A1c 9.3 % 08/12/19 Cholesterol 203 mg/dL (<200) H 09/06/23 HDL Cholesterol 29 mg/dL (>40) L 09/06/23 Triglycerides 256 mg/dL (<150) H 09/06/23 Creatinine 6.66 mg/dL (0.5-1.4) H* 09/06/23 Blood Urea Nitrogen 22 mg/dL (9-16) H 09/06/23 Sodium 141 mmol/L (135-145) 09/06/23 Potassium 4.4 mmol/L (3.3-5.1) 09/06/23 Chloride 90 mmol/L (96-108) L 09/06/23 Carbon Dioxide 36 mmol/L (22-29) H 09/06/23 Calcium 9.5 mg/dL (8.4-10.2) 09/06/23 AST 26 U/L (5-31) 09/06/23 ALT 31 U/L (0-31) 09/06/23 Total Protein 8.4 g/dL (6.5-8.0) H 09/06/23 Albumin 4.0 g/dL (3.5-5.0) 09/06/23 [facility] Medical History Dyspnea Pulmonary nodules Chronic allergic rhinitis Allergies Kidney failure ESRD (end stage renal disease) on dialysis Anemia HTN (hypertension) ESRD (end stage renal disease) 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 Hypoglycemia due to type 1 diabetes mellitus Hypertension Dyslipidemia Diabetic polyneuropathy associated with type 1 diabetes mellitus Diabetes type 1, uncontrolled ESRD (end stage renal disease) on dialysis ESRD (end stage renal disease) Surgical History History of hemodialysis Hx of amputation Hx of eye surgery Hx of section Family History Father Diabetes mellitus Mother Thyroid disease Pre-diabetes HTN (hypertension) Acute depression Arthritis Social History Household Members: Significant Other Household Members Other:: / - 6 y/o daughter Housing: Apartment Do you presently have visiting nurse or other home services: No Alcohol intake: never Patient Tobacco Use Status: Never used Tobacco service: No Current occupational status: disabled Assessment & Plan Assessment & Plan (1) Diabetes type 1, uncontrolled: Code(s): E10.65 - Type 1 diabetes mellitus with hyperglycemia Plan: Patient presents for pump training for Omnipod 5 pump and CGM training today. The following topics were reviewed today: - transitioning from Dexcom G6 to Dexcom G7 - importance of entering all carbohydrates into insulin pump ??? High Alert: Off ??? Low Alert: 70 mg/dl Automode 99% Basal: 59% Bolus:41% Patient continues to struggle bolusing prior to meals. when she does bolus for meals she generally boluses after her glucose is already increasing. Reinforced with patient the importance of bolusing for meals 15 minutes before eating Show patient on Omnipod 5 orthotics prosthetics assistant how to switch from Dexcom G 6 sensor to Dexcom G7 sensor Troubleshooting after starting new pod or inserting new insulin set: Occlusion, adhesive tape sensitivity, redness Check BG 2 hours after site change Patient understands the basic concepts of pump therapy, how to give insulin for meals and snacks, how to troubleshoot for hyper and hypoglycemia. Setting verified by CDCES, no changes made to patient's pump settings at today's visit Basal rate(s) (units/hour) : 12 AM? to 12 AM 1.25 units / hr Bolus setting Insulin Carbohydrate Ratio (s) 12 AM? to 12 AM 1:6.2 Correction Factor / Sensitivity Factor 12 AM? to 12 AM? 1:30 Active Insulin Time:?3.5 hours Target(s): 12 AM? to 12 AM 120 mg/dL Correction Threshold 12 AM? to 12 AM 120 mg/dL Patient will follow up with CDE as instructed Patient will contact CDE with questions or concerns, patient given IT number to support in any technical issues related to insulin pump Coding Level of Care Code Est Pt Level 1 (12085) Diagnoses Diabetes type 1, uncontrolled E10.65
--- OUTSIDE RECORDS SUMMARY | 2024-06-26 12:34 | XMS_ITS | Encounter Summary ---
Author Organization [facility] Address [address] [place] [address] Care Team Providers Care Acetylene Gas Compressor Name Role Phone Ally Ferreira Primary Care Provider [phone] Encounter Details Date Type Department Care Team (Late st Contact Info) Description 02/09/2021 Orders Only [facility] Nuclear Medicine [address] [place] [id number] Shiva Duran MD [address] [place] [phone] Social History Tobacco Use Types Packs/Day Years Used Date Smoking Tobacco: Never Assessed Comments Unknown Sex and Gender Information Value Date Recorded Sex Assigned at Female 01/31/2024 11:22 AM EDT Legal Sex Female 1:45 PM EDT Gender Identity Female 03/04/2024 12:21 PM EST Sexual Orientation Straight 03/04/2024 12 :21 PM EST documented as of this encounter Plan of Treatment Upcoming Encounters Date Type Department Care Team (Late st Contact Info) Description 01/27/2025 11:00 AM EDT Social Work [facility] Renal Transplant [address] [place] [id number] Chani Vargas LICSW [address] [place] [phone] 02/24/2025 10:20 AM EST Follow-Up [facility] Renal Transplant [address] [place] [address] Vinicio Harris MD [address] [place] [address] documented as of this encounter Visit Diagnoses Not on filedocumented in this encounter Care Teams Acetylene Gas Compressor Relationship Specialty Start Date End Date Ally Ferreira [address] [place] [phone] PCP - General 02/04/24 documented as of this encounter
--- OUTSIDE RECORDS SUMMARY | 2024-06-26 12:34 | XMS_ITS | Encounter Summary ---
Author Organization [facility] Address [address] [place] [address] Phone Care Team Providers Care Business Services Coordinator Name Role Phone Azucena Bradley MD Primary Care Provider [phone] Reason for Visit * Reason Comments Med Refill Encounter Details Date Type Department Care Team (Late st Contact Info) Description 03/06/2021 Refill [facility] [address] [place] [address] Forrest Adamson MD Social History Tobacco Use Types Packs/Day Years Used Date Smoking Tobacco: Never Alcohol Use Standard Drinks/Week Comments No 0 (1 standard drink = 0.6 oz pur e alcohol) Comments Unknown Sex and Gender Information Value Date Recorded Sex Assigned at Not on file Legal Sex Female 5:10 PM EST Gender Identity Not on file Sexual Orientation Not on file documented as of this encounter Plan of Treatment Not on file documented as of this encounter Visit Diagnoses Not on filedocumented in this encounter Care Teams Business Services Coordinator Relationship Specialty Start Date End Date Azucena Bradley MD [address] [place] [address], [facility] [address] [place] [address] PCP - General Internal Medicine 01/22/24 documented as of this encounter
--- OUTSIDE RECORDS SUMMARY | 2024-06-26 12:34 | XMS_ITS | Encounter Summary ---
Author Organization [facility] Address [address] [place] [address] Care Team Providers Care Manager Casino Name Role Phone Mt Hooker MD Primary Care Provider + [phone] Reason for Visit * Reason Comments Wound Check Encounter Details Date Type Department Care Team ([facility] st Contact Info) Description 06/17/2024 10:15 AM EST Office Visit Orthopedic Surgery - [place] [address] [phone] Siva Lino DPM [address] [address] Controlled type 2 diabetes with neuropathy (CMS/HCC) (Primary Dx); Hammertoes of both feet; Dermatophytosis, nail; Ulcer of right heel, with fat layer exposed (CMS/HCC) Social History Tobacco Use Types Packs/Day Years Used Date Smoking Tobacco: Never Smokeless Tobacco: Never Alcohol Use Standard Drinks/Week Comments No 0 (1 standard drink = 0.6 oz pur e alcohol) Comments Unknown Sex and Gender Information Value Date Recorded Sex Assigned at Not on file Legal Sex Female 1:13 PM EST Gender Identity Not on file Sexual Orientation Not on file documented as of this encounter Last Filed Vital Signs Vital Sign Reading Time Taken Comments Blood Pressure - - Pulse - - Temperature - - Respiratory Rate - - Oxygen Saturation - - Inhaled Oxygen Concentration - - Weight 67.1 kg (148 lb) 06/17/2024 10:18 AM EST Height - - Body Mass Index 27.98 06/03/2024 10:29 AM EST documented in this encounter Progress Notes * Siva Lino DPM - 06/17/2024 10:15 AM EST Referring MD: Morro Last PCP visit: 03/29/2024 IDENTIFIER: @SARI@ Smith is a 33 y.o. year old female who presents for consultation. CC: Bilateral foot pain HPI: 33-year-old female returns office status post right foot wound debridement and offloading. Patient is kept the dressing clean dry and intact to the right foot. Patient notes that she been experiencing some pain within the digits due to thickness of her nails. Patient denies fever nausea vomit shortness of breath. Patient is here for evaluation treatment ROS: GENERAL: Pt denies nausea, fever, vomiting, chills, or shortness of breath. Pt in NAD. CARDIOLOGY: pt denies chest pain, palpitations LUNGS: pt denies shortness of breath MUSCULOSKELETAL: See HPI, otherwise no joint pain or swelling, back pain, or muscle pain. SKIN: see HPI, otherwise no lesions, rash or itching NEURO: No persistent headache, weakness or numbness The remainder of the review of systems is noncontributory PAST MEDICAL HISTORY: There is no problem list on file for this patient. SOCIAL HISTORY: Social History Tobacco Use Smoking status: Never Smokeless tobacco: Never Substance Use Topics Alcohol use: No ACTIVE MEDICATIONS: No outpatient medications have been marked as taking for the 06/17/24 encounter (Office Visit) with Siva Lino DPM. ALLERGIES: @ALL@ PHYSICAL EXAM: Weight 67.1 kg (148 lb). PODIATRIC EXAMINATION: GENERAL: Patient appears well nourished, with NAD. VASCULAR: Dorsalis pedis pulses are 2/4 bilaterally and Posterior tibial pulses are 2/4 bilaterally. Capillary filling time within normal limits the digits. No pallor on elevation or rubor on dependency. Positive hair growth. No varicosities. Denies rest pain or claudication pain. NEUROLOGICAL: Sharp/dull sensation diminished, protective sensation diminished on [place]. Multipleperipheral neuropathies bilaterally. ORTHOPEDIC: Good muscle strength 5/5 of all flexors and extensors. Dorsi flexion of ankle ,10 degrees, plantar flexion WNL. No muscle atrophy. 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 Contracture of digits 2 through 5 on the left with increased splitting at the sulcus of the fourth digit of the left foot with callus formation DERMATOLOGICAL:.Continued wound to the lateral heel of the right foot that is 0.5 cm in diameter with a hyperkeratotic rim. There is some undermining to the 12:00 to 3 o'clock position. No fluctuanceor purulence. No deep tracking past the subcutaneous base. Fibrogranular base Wound to the posterior aspect of the right leg over the mid substance of the Achilles tendon is healed with some overlying callus formation. BIOMECHANICS: STJ ROM wnl, MTJ ROM wnl, 1st MPJ ROM wnl. IMPRESSION: 1. Controlled type 2 diabetes with neuropathy (CMS/HCC) 2. Hammertoes of both feet 3. Dermatophytosis, nail 4. Ulcer of right heel, with fat layer exposed (CMS/HCC) PLAN: Pt was seen and examined, history reviewed. Patient was once again educated on the importance of keeping consistent tight glucose control in order to allow for the healing process to take place to the right foot and ankle wounds. Patient may noted that she understands but is having difficulty controlling the pain with proper diet and medication to control Patient was educated that the previous amputations of the fourth and fifth metatarsal are causing her foot to lean into a varus position and increasing pressure to the lateral heel. Patient was encouraged to wear more supportive wide set sneaker to position the foot properly and offload the lateralcolumn. Patient continues to have a wound to the lateral aspect of the foot but though it is decreased in size. Patient was instructed to continue with the offloading pads around the wound for daily activityfor the next 3 weeks and to return at that time. Open wound selective debridement of devitalized soft tissue, fibrin, epidermis, dermis, thru skin and subcutaneous tissue, first 20 sq cm or less, using sterile sharp dissection #15 scalpel blade of the right foot lateral heel wound. Pt. deferred anesthesia. . Devitalized tissue was not sent to pathology. Siva Lino DPM documented in this encounter Plan of Treatment Upcoming Encounters Date Type Department Care Team (Late st Contact Info) Description 07/01/2024 1:30 PM EDT Office Visit Orthopedic Surgery - [address] [phone] Siva Lino DPM [address] [address] 07/08/2024 10:30 AM EDT Office Visit Orthopedic Surgery - [place] [address] [phone] Siva Lino DPM [address] [address] documented as of this encounter Visit Diagnoses Diagnosis Controlled type 2 diabetes with neuropathy (CMS/HCC)- Primary Type II or unspecified type diabetes mellitus with neurological manifestations, not stated as uncontrolled Hammertoes of both feet Dermatophytosis, nail Dermatophytosis of nail Ulcer of right heel, with fat layer exposed (CMS/HCC) documented in this encounter Care Teams Manager Casino Relationship Specialty Start Date End Date Mt Hooker MD [address] [place] [phone] PCP - General Internal Medicine 09/26/21 documented as of this encounter
--- OUTSIDE RECORDS SUMMARY | 2024-06-26 12:34 | XMS_ITS | Clinical Summary ---
Author Organization [facility] Address [address] [place] [address] Phone Care Team Providers Care Crew Caller Name Role Phone Mt Hooker MD Primary Care Provider [phone] Allergies No known active allergies Medications CALCITRIOL ORAL Take by mouth. Active silver sulfADIAZINE (SILVADENE, SSD) 1 % cream Apply small amount to the wound once daily before dressing with bandaid 4 Active polyethylene glycol (Golytely) 236-22.74-6.74 -5.86 gram solution Take by mouth. Activ e METOPROLOL SUCCINATE ORAL Take by mouth. Active sevelamer carbonate (RENVELA) 800 mg tablet Take 800 mg by mouth 3 times daily (with meals). Active gabapentin (NEURONTIN) 100 mg capsule Take 100 mg by mouth daily. Active insulin glargine (Lantus U-100 Insulin) 100 unit/mL injection Inject into the skin. Active carvediloL (COREG) 25 mg tablet Take 25 mg by mouth 2 times daily (with meals). Active losartan (COZAAR) 50 mg tablet Take 50 mg by mouth daily. Active docusate sodium (COLACE) 100 mg capsule Take 100 mg by mouth 2 times daily. Active amLODIPine (NORVASC) 5 mg tablet Take 5 mg by mouth daily. Active acetaminophen (TYLENOL) 325 mg tablet Take 650 mg by mouth every 6 hours as needed. Active cholecalciferol (VITAMIN D-3) 5,000 Units tablet Take by mouth. Activ e valacyclovir HCl (VALACYCLOVIR ORAL) Take by mouth. Activ e insulin lispro in sterile water injection Inject into the skin. Active FUROSEMIDE ORAL Take by mouth. Active ammonium lactate (AmLactin) 12 % lotion Apply topically if needed for dry skin. 400 g 2 5 05/06/19 Active Encounters Date Type Department Care Team Description 06/17/2024 10:15 AM EST Office Visit Orthopedic Surgery [facility] [address] [phone] Siva Lino DPM Controlled type 2 diabetes with neuropathy (CMS/HCC) (Primary Dx); Hammertoes of both feet; Dermatophytosis, nail; Ulcer of right heel, with fat layer exposed (CMS/HCC) 06/10/2024 10:00 AM EST Office Visit Orthopedic Surgery [facility] [address] [phone] Siva Lino DPM Controlled type 2 diabetes with neuropathy (CMS/HCC) (Primary Dx); Ulcer of right heel, with fat layer exposed (CMS/HCC); Non-pressure chronic ulcer of right ankle with fat layer exposed (CMS/HCC) 06/03/2024 10:15 AM EST Office Visit Orthopedic Surgery [facility] [address] [phone] Siva Lino DPM Hammertoes of both feet (Primary Dx); Controlled type 2 diabetes with neuropathy (CMS/HCC); Ulcer of right heel, with fat layer exposed (CMS/HCC) 05/06/2024 1:00 PM EST Office Visit Orthopedic Surgery [facility] [address] [address] Siva Lino DPM Controlled type 2 diabetes with neuropathy (CMS/HCC) (Primary Dx); Hammertoes of both feet; Xerosis cutis; Ulcer of right heel, limited to breakdown of skin (CMS/HCC); Dermatophytosis, nail from Last 3 Months Immunizations Name Administration Dates Next Due COVID-19 (Moderna/Spikevax) 12yo and older 01/26 Moderna SARS-CoV-2 COVID-19, mRNA, LNP-S, preservative free 07/09/2020,05/26/2020 Medical History Medical History Date Comments Kidney failure DX:Kidney failur e Diabetes mellitus ([facility]) DX:D iabetes mellitus ([facility]) Diabetic neuropathy ([facility]) DX :Diabetic neuropathy ([facility]) Type 1 diabetes ([facility]) DX:Typ e 1 diabetes ([facility]) Hypertension DX:Hypertension Social History Tobacco Use Types Packs/Day Years Used Date Smoking Tobacco: Never Smokeless Tobacco: Never Tobacco Cessation:Counseling Given: Not Answered Alcohol Use Standard Drinks/Week Comments No 0 (1 standard drink = 0.6 oz pur e alcohol) Comments Unknown Sex and Gender Information Value Date Recorded Sex Assigned at Not on file Legal Sex Female 1:13 PM EST Gender Identity Not on file Sexual Orientation Not on file Obstetrics History Last Filed Vital Signs Vital Sign Reading Time Taken Comments Blood Pressure - - Pulse - - Temperature - - Respiratory Rate - - Oxygen Saturation - - Inhaled Oxygen Concentration - - Weight 67.1 kg (148 lb) 06/17/2024 10:18 AM EST Height 154.9 cm (5' 0.98 ) 06/03/2024 10:[address] Body Mass Index 27.98 06/03/2024 10:29 AM EST Plan of Treatment Upcoming Encounters Date Type Department Care Team (Late st Contact Info) Description 07/01/2024 1:30 PM EDT Office Visit Orthopedic Surgery [place] [address] [phone] Siva Lino DPM [address] [address] 07/08/2024 10:30 AM EDT Office Visit Orthopedic Surgery [facility] [address] [phone] Siva Lino DPM [address] [address] Health Maintenance Due Date Last Done Comments Diabetes: Annual Foot Exam 09/09/2001 Diabetes: Annual Retina Eye Exam 09/09/2001 Medicare Annual Wellness Visit 03/14/2022 Social Influencers of Health Screening 03/14/2022 Diabetes: Annual GFR (Glomerular Filtration Rate) 04/06/2023 04/06/2022 Diabetes: Annual Urine Albumin-Creatinine Ratio (uACR) 05/06/2024 Hypertension/CHF/CAD Annual BMP Blood Test 05/06/2024 04/06/2022 Depression Screening 07/30/2024 07/31/2023 Diabetes: Blood Sugar Control Test (HGBA1C) 10/21/2024 04/23/2024, 04/23/2024, 09/06/2023, Additional history exists Cervical Cancer Screening: Pap Smear 05/17/2026 05/17/2023 Cholesterol Screening (Lipid Panel) 04/23/2029 04/23/2024, 09/06/2023 DTaP,Tdap,and Td Vaccines (10 - Td or Tdap) 12/15/2029 12/16/2019, 03/24/2015, 01/31/2012, Additional history exists Pneumococcal Vaccine: Pediatrics (0 to 5 Years) and At-Risk Patients (6 to 64 Years) (3 of 3 - PCV20 or PCV21) 09/09/2041 04/26/2023, 08/21/2018, 08/02/2018, Additional history exists MMR Vaccines Completed 12/22/1992, 1992 HIB Vaccines Completed 05/05/1993, 12/1992, 12/22/1992 IPV Vaccines Completed 09/11/1995, 04/17, 02/22/1993, Additional history exists Varicella Vaccines Completed 07/06/2005, 12/27/2004 Meningococcal ACWY Vaccine Aged Out 04/26/2007 N o longer eligible based on patient's age to complete this topic HPV Vaccines Completed 03/31/2008, 02/14, 01/22/2007 Hepatitis B Vaccines Completed 04/16/2019, 09/27/2018, 07/29/2018, Additional history exists Hepatitis A Vaccines Aged Out 12/16/2019 No long er eligible based on patient's age to complete this topic HIV Screening Completed 09/06/2023 Hepatitis C Screening Completed 09/06/2023 , 10/13/2021, 11/30/2020, Additional history exists Influenza Vaccine Completed 02/08/2024, , 05/27/2019, Additional history exists COVID-19 Vaccine Completed 05/13/2024, , 01/26/2022, Additional history exists Meningococcal B Vacine Aged Out No lo nger eligible based on patient's age to complete this topic RSV Immunization Patients Under 20 months Aged Out No longer eligible based on patient's age to complete this topic Procedures Procedure Name Priority Date/Time Associated Diagnosis Comments HEMOGLOBIN A1C Routine 02/27/2023 ANNUAL BMP BLOOD TEST Routine 04/06/2022 HEPATITIS C SCREENING Routine 11/30/2020 from Last 3 Months or Most Recently Relevant to Health Maintenance Results * Annual BMP Blood Test (04/06/2022) Annual BMP Blood Test abstracted [facility] Provider HEALTH MAINTENANCE Final Result * Hepatitis C Screening (11/30/2020) Hepatitis C Screening abstracted Historical Provider HEALTH MAINTENANCE Final Result from Last 3 Months or Most Recently Relevant to Health Maintenance Insurance MEDICAID - [place] MEDICARE Care Teams Crew Caller Relationship Specialty Start Date End Date Mt Hooker MD [address] [place], [place] [address] [phone] PCP - General Internal Medicine 09/26/21
--- OUTSIDE RECORDS SUMMARY | 2024-06-26 12:34 | XMS_ITS | Encounter Summary ---
Author Organization [facility] Address [address] [facility] [address] [place] [address] Phone Care Team Providers Care Hoop Driving Machine Operator Helper Name Role Phone Azucena Bradley MD Primary Care Provider [phone] Reason for Visit * Reason Comments Med Refill Encounter Details Date Type Department Care Team (Late st Contact Info) Description 09/02/2023 Refill [facility] [address] [place] [address] [place] [phone] Paul Brothers MD [address] [facility] [address] [place] [phone] Social History Tobacco Use Types Packs/Day Years [...] on filedocumented in this encounter Care Teams Hoop Driving Machine Operator Helper Relationship Specialty Start Date End Date Azucena Bradley MD [address] [place] [address], Floor [address] [place] [address] PCP - General Internal Medicine 01/22/24 documented as of this encounter
--- OUTSIDE RECORDS SUMMARY | 2024-06-26 12:34 | XMS_ITS | Encounter Summary ---
Author Organization [facility] Address [address] [place] [address] Phone Care Team Providers Care Faculty Head Name Role Phone Azucena Bradley MD Primary Care Provider [phone] Reason for Visit * Reason Comments Med Refill Encounter Details Date Type Department Care Team (Late st Contact Info) Description 06/22/2022 Refill [facility] [address] [place] [address] [place] [phone] Forrest Adamson MD Social History Tobacco [...] on filedocumented in this encounter Care Teams Faculty Head Relationship Specialty Start Date End Date Azucena Bradley MD [address] [place] [address], [facility] 3 [place] [address] PCP - General Internal Medicine 01/22/24 documented as of this encounter
--- OUTSIDE RECORDS SUMMARY | 2024-06-26 12:34 | XMS_ITS | Patient Health Record ---
Author Organization [facility] Address [address] [place] [address] Care Team Providers Care Online Marketing Analyst Name Role Phone Dory Martin Unavailable [phone] Reason For Referral No Information Plan Of Treatment No Information Insurance Providers Payer Name Payer Address Payer Phone Subscriber Number Group Number Insured Name Patient Relationship to Insured Coverage Start Date Coverage End Date Medicare [employer] [address] [place] [address] Natali Mtz Self - patient is the insured
--- OUTSIDE RECORDS SUMMARY | 2024-06-26 12:34 | XMS_ITS | Encounter Summary ---
Author Organization [facility] Address [address] [facility] [address] [place] [address] Phone Care Team Providers Care Biomedical Field Service Engineer Name Role Phone Azucena Bradley MD Primary Care Provider [phone] Reason for Visit * Reason Comments Med Refill Encounter Details Date Type Department Care Team ([facility] st Contact Info) Description 06/04/2023 Refill [facility] [address] [place] [address] [place] [phone] Wesley Pagan MD [address] [facility] [address] [place] [phone] Social History Tobacco Use Types Packs/Day Years [...] on filedocumented in this encounter Care Teams Biomedical Field Service Engineer Relationship Specialty Start Date End Date Azucena Bradley MD [address] [place] [address], [address] [place] [address] PCP - General Internal Medicine 01/22/24 documented as of this encounter
--- OUTSIDE RECORDS SUMMARY | 2024-06-26 12:34 | XMS_ITS | Encounter Summary ---
Author Organization [facility] Address [address] [place] [address] Care Team Providers Care Mileage Clerk Name Role Phone Mt Hooker MD Primary Care Provider + [phone] Reason for Visit * Reason Comments DM Foot Care Poorly controlled ty pe 2 diabetes mellitus with neuropathy (HCC) (Primary Dx); Hammertoes of both feet; Dermatophytosis, nail Encounter Details Date Type Department Care Team (Late st Contact Info) Description 06/03/2024 10:15 AM EST Office Visit Orthopedic Surgery - [place] [address] [phone] Siva Lino, DPM [address] [address] Hammertoes of both feet (Primary Dx); Controlled [...] - - Weight 67.1 kg (148 lb) 06/03/2024 10:29 AM EST Height 154.9 cm (5' 0.98 ) 06/03/2024 10:29 AM Marcello DELGADO Body Mass Index 27.98 06/03/2024 10:29 AM EST documented in this encounter Progress Notes * Siva Lino DPM - 06/03/2024 10:15 AM EST Referring MD: Morro Last PCP visit: 03/29/2024 IDENTIFIER: @TITLE@ Smith is a 33 y.o. year old female who presents for consultation. CC: Bilateral foot pain HPI: Patient returns office with chief complaint of right foot wound. Patient is diabetic with on and off again controlled sugars with recent sugar as high as 20 to 50 mg/dL. Patient notes that she has continued to use a pumice stone and recently accidentally nicked the lateral aspect of her right heel.Patient notes that its gotten worse and was starting to drain. Patient is concerned that she has had amputation in the past secondary to clotting. Patient is here for evaluation treatment ROS: [...] Use Topics Alcohol use: No ACTIVE MEDICATIONS: Outpatient Medications Marked as Taking for the 06/03/24 encounter (Office Visit) with Siva Lino DPM Medication Sig Dispense Refill acetaminophen (TYLENOL) 325 mg tablet Take 650 mg by mouth every 6 hours as needed. amLODIPine (NORVASC) 5 mg tablet Take 5 mg by mouth daily. ammonium lactate (AmLactin) 12 % lotion Apply topically if needed for dry skin. 400 g 2 CALCITRIOL ORAL Take by mouth. carvediloL (COREG) 25 mg tablet Take 25 mg by mouth 2 times daily (with meals). cholecalciferol (VITAMIN D-3) 5,000 Units tablet Take by mouth. docusate sodium (COLACE) 100 mg capsule Take 100 mg by mouth 2 times daily. FUROSEMIDE ORAL Take by mouth. gabapentin (NEURONTIN) 100 mg capsule Take 100 mg by mouth daily. insulin glargine (Lantus U-100 Insulin) 100 unit/mL injection Inject into the skin. insulin lispro in sterile water injection Inject into the skin. losartan (COZAAR) 50 mg tablet Take 50 mg by mouth daily. METOPROLOL SUCCINATE ORAL Take by mouth. polyethylene glycol (Golytely) 236-22.74-6.74 -5.86 gram solution Take by mouth. sevelamer carbonate (RENVELA) 800 mg tablet Take 800 mg by mouth 3 times daily (with meals). silver sulfADIAZINE (SILVADENE, SSD) 1 % cream Apply small amount to the wound once daily before dressing with bandaid valacyclovir HCl (VALACYCLOVIR ORAL) Take by mouth. ALLERGIES: @ALL@ PHYSICAL EXAM: Height 1.549 m (60.98 ), weight 67.1 kg (148 lb). PODIATRIC EXAMINATION: GENERAL: Patient appears well nourished, with NAD. VASCULAR: Dorsalis pedis pulses are 2/4 bilaterally and Posterior tibial pulses are 2/4 bilaterally. Capillary filling time within normal limits the digits. No pallor on elevation or rubor on dependency. Positive hair growth. No varicosities. Denies rest pain or claudication pain. NEUROLOGICAL: Sharp/dull sensation diminished, protective sensation diminished on [place]. Multipleperipheral neuropathies bilaterally. ORTHOPEDIC: Good muscle strength 5/5 of all flexors and extensors. Dorsi flexion of ankle ,10 degrees, plantar flexion WNL. No muscle atrophy. 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 Contracture of digits 2 through 5 on the left with increased splitting at the sulcus of the fourth digit of the left foot with callus formation DERMATOLOGICAL:.Wound to the lateral heel of the right foot that is 1.5 cm in diameter with a hyperkeratotic rim. There is some undermining to the 12:00 to 3 o'clock position. No fluctuance or purulence. No deep tracking past the subcutaneous base. Fibrogranular base BIOMECHANICS: STJ ROM wnl, MTJ ROM wnl, 1st MPJ ROM wnl. IMPRESSION: 1. Hammertoes of both feet 2. Controlled type 2 diabetes with neuropathy (CMS/HCC) 3. Ulcer of right heel, with fat layer exposed (CMS/HCC) PLAN: Pt was seen and examined, history reviewed. Was educated on the importance of using ammonium lactate daily rather than a pumice stone for removing thickened or scaly tissue to the feet Patient was educated that with the wound present in her right foot she needs to focus on controlling her sugar as well as possible to limit nonhealing nature of the right lateral foot wound Patient has a new wound to the lateral aspect of the right foot. Patient instructed to keep an offloading pad and a dry sterile dressing with Betadine over the area. Patient's wound required debridement as described below. Patient will focus on decreasing pressure to the foot stay nonweightbearing is much as possible and will be reevaluated in 1 week .Open wound selective debridement of devitalized soft tissue, fibrin, epidermis, dermis, thru skin and subcutaneous tissue, first 20 sq cm or less, using sterile sharp dissection #15 scalpel blade ofthe right foot ulcer. Pt. deferred anesthesia. . Devitalized tissue was not sent to pathology. Siva Lino DPM documented in this encounter Plan of Treatment Upcoming Encounters Date Type Department Care Team (Late st Contact Info) Description 07/01/2024 1:30 PM EDT Office Visit Orthopedic Surgery [address] [phone] Siva Lino DPM [address] [phone] 07/08/2024 10:30 AM EDT Office Visit Orthopedic Surgery [address] [phone] Siva Lino DPM [address] [address] documented as of this encounter Visit Diagnoses Diagnosis Hammertoes of both feet- Primary Controlled type 2 diabetes with neuropathy (CMS/HCC) Type II or unspecified type diabetes mellitus with neurological manifestations, not stated as uncontrolled Ulcer of right heel, with fat layer exposed (CMS/HCC) documented in this encounter Care Teams Mileage Clerk Relationship Specialty Start Date End Date Mt Hooker MD [address] [place] [phone] PCP - General Internal Medicine 09/26/21 documented as of this encounter
--- OUTSIDE RECORDS SUMMARY | 2024-06-26 12:34 | XMS_ITS | Encounter Summary ---
Author Organization [facility] Address [address] [place] [address] Care Team Providers Care Tire Bladder Maker Name Role Phone Mt Hooker MD Primary Care Provider + [phone] Reason for Visit * Reason Comments DM Foot Care Encounter Details Date Type Department Care Team ([facility] st Contact Info) Description 06/10/2024 10:00 AM EST Office Visit Orthopedic Surgery - [place] [address] [phone] Siva Lino, DPM [address] [address] Controlled type 2 diabetes with neuropathy (CMS/HCC) (Primary Dx); Ulcer of right heel, with fat layer exposed (CMS/HCC); Non-pressure chronic ulcer of right ankle with fat layer exposed (CMS/HCC) Social History [...] - - Weight 67.1 kg (148 lb) 06/10/2024 10:17 AM EST Height - - Body Mass Index 27.98 06/03/2024 10:29 AM EST documented in this encounter Progress Notes * Siva Lino DPM - 06/10/2024 10:00 AM EST Referring MD: Morro Last PCP visit: 03/29/2024 IDENTIFIER: @TITLE@ Smith is a 33 y.o. year old female who presents for consultation. CC: Bilateral foot pain HPI: 33-year-old female returns office for right foot wound. Patient denies any fever nausea vomiting shortness of breath. Patient notes that she did use the offloading pad recently but did not use it consistently over the past week. Patient has a Band-Aid over the wound but is not using a dressing. Patient's most recent A1c is 7%. Patient notes her sugar does shoot up from a 122 at 250 throughout theday. Patient is not wearing supportive shoes. Patient is here for evaluation treatment ROS: [...] have been marked as taking for the 06/10/24 encounter (Office Visit) with Siva Lino DPM. [...] Sharp/dull sensation diminished, protective sensation diminished on [place]. Multipleperipheral neuropathies bilaterally. ORTHOPEDIC: Good muscle strength [...] the mid substance of the Achilles tendon that is 1.5 cm x 1 cm in size with a regular hyperkeratotic rim extending into the subcutaneous fibrogranular base. No purulence or necrosis. No malodor. No streaking cellulitis BIOMECHANICS: STJ ROM wnl, MTJ ROM wnl, 1st MPJ ROM wnl. IMPRESSION: 1. Controlled type 2 diabetes with neuropathy (CMS/HCC) 2. Ulcer of right heel, with fat layer exposed (CMS/HCC) 3. Non-pressure chronic ulcer of right ankle with fat layer exposed (CMS/HCC) PLAN: Pt [...] foot properly and offload the lateralcolumn. Patient has continued wound to the lateral aspect of the right foot. Patient instructed to keep an offloading pad and a dry sterile dressing with Betadine over the area. Patient's wounds required debridement as described below. Patient will focus on decreasing pressure to the foot stay nonweightbearing is much as possible and will be reevaluated in 1 week Open wound selective debridement of devitalized soft tissue, fibrin, epidermis, dermis, thru skin and subcutaneous tissue, first 20 sq cm or less, using sterile sharp dissection #15 scalpel blade of the right foot and posterior ankle ulcer. Pt. deferred anesthesia. . Devitalized tissue was not sentto pathology. Siva Lino DPM documented in this encounter Plan of Treatment Upcoming Encounters Date Type Department Care Team (Late st Contact Info) Description 07/01/2024 1:30 PM EDT Office Visit Orthopedic Surgery - [place] [address] [phone] Siva Lino DPM [address] [address] 07/08/2024 10:30 AM EDT Office Visit Orthopedic Surgery [place] [address] [phone] Siva Lino DPM [address] [address] documented as of this encounter Visit Diagnoses Diagnosis Controlled type 2 diabetes with neuropathy (CMS/HCC)- Primary Type II or unspecified type diabetes mellitus with neurological manifestations, not stated as uncontrolled Ulcer of right heel, with fat layer exposed (CMS/HCC) Non-pressure chronic ulcer of right ankle with fat layer exposed (CMS/HCC) documented in this encounter Care Teams Tire Bladder Maker Relationship Specialty Start Date End Date Mt Hooker MD [address] [place] [phone] PCP - General Internal Medicine 09/26/21 documented as of this encounter
--- OUTSIDE RECORDS SUMMARY | 2024-06-26 12:35 | XMS_ITS ---
Author Organization [facility] Address [address] [place] [address] Care Team Providers Care Gathering Machine Setter Name Role Phone Dory Martin Unavailable [phone] Encounters Encounter Location Date Provider Diagnosis [facility] [address] [place] [address] 02/13/2023 Dory Martin Plan Of Treatment No Information Progress Notes * Mansoor MTZlDOB: 2 (33 yo F)Acc No.[id number]:02/13/2023 Progress Notes Patient:?Natali MTZ Provider:?Dory Martin DPM :1990???Age:32 Y???Sex:Female D ate:02/13/2023 [id number] Subjective: * Chief Complaints: * ??? * Medical History:? Objective: * Vitals:? Assessment: Plan: * Treatment: * Images: * The named appointment provid er may or may not be the originator of this progress note, and it is not deemed complete until electronically signed by the appointment provider. Sign off status: Pending * Provider:?Dory Martin DPM Date:? Generated for Enoc mckinney/Siri/Erickitting on:?06/26/2024 12:34 PM EDT
--- OUTSIDE RECORDS SUMMARY | 2024-06-26 12:35 | XMS_ITS | Encounter Summary ---
Author Organization [facility] Address [address] [place] [phone] Phone Care Team Providers Care Prefabricator Name Role Phone Azucena Bradley MD Primary Care Provider [phone] Encounter Details Date Type Department Care Team (Late st Contact Info) Description 05/26/2024 Treatment [facility] [address] [phone] Edwina Min MD [address] [phone] Social History Tobacco Use Types Packs/Day Years [...] on file documented as of this encounter Miscellaneous Notes * Dialysis Note - Edwina Min MD - 05/26/2024 12:00 AM EST Patient: Natali Mtz : 1990 Note Type: Dialysis Rounds-Basic Service Date: 05/26/2024 This patient was personally seen for a basic visit as part of routine monthly dialysis care for end stage renal disease. Attending Machining Technician: EDWINA MIN MD Dialysis Location: DIALYSIS Schedule: Shift: 2 ADEQUACY ASSESSMENT Kt/V, Natural Log 1.89 (05/21/24) 1.86 (04/23/24) 1.75 (03/19/24) UREA REDUCTION RATIO (%) 78 (05/21/24) 77 (04/23/24) 76 (03/19/24) BUN 65 (05/21/24) 69 (04/23/24) 45 (03/19/24) BUN Post Dialysis 14 (05/21/24) 16 (04/23/24) 11 (03/19/24) Creatinine 10.37 (05/21/24) 9.26 (04/23/24) 9.30 (03/19/24) Bicarbonate (CO2) 27 (05/21/24) 23 (04/23/24) 25 (03/19/24) Sodium 135 (05/21/24) 134 (04/23/24) 133 (03/19/24) ANEMIA ASSESSMENT Hgb 11.3 (05/21/24) 10.0 (05/07/24) 9.2 (04/23/24) Iron Saturation (TSat) 25 (05/21/24) 31 (04/23/24) 17 (03/19/24) Ferritin 973 (05/21/24) 852 (04/23/24) 1,259 (02/20/24) Iron 46 (05/21/24) 60 (04/23/24) 31 (03/19/24) TIBC 186 (05/21/24) 193 (04/23/24) 186 (03/19/24) MCV 94.1 (05/21/24) 92.4 (04/23/24) 97.8 (03/19/24) Platelets 351 (05/21/24) 257 (04/23/24) 366 (03/19/24) BMM ASSESSMENT Calcium, Adjusted Total 10.0 05/21/24 9.3 04/23/24 9.3 03/19/24 Calcium 10.0 05/21/24 9.3 04/23/24 9.3 03/19/24 Phosphorus, Serum 7.8 05/21/24 9.1 05/07/24 8.0 04/23/24 Ca*PO4 78.0 05/21/24 74.4 04/23/24 67.0 03/19/24 PTH, Intact 404 04/23/24 412 02/20/24 Magnesium 2.6 05/21/24 2.3 04/23/24 2.1 03/19/24 Alkaline Phosphatase 138 05/21/24 163 04/23/24 176 03/19/24 Aluminum 7 04/23/24 NUTRITION ASSESSMENT Albumin 4.3 05/21/24 4.4 04/23/24 4.2 03/19/24 Potassium 5.0 05/21/24 5.7 04/23/24 5.2 03/19/24 Hemoglobin A1C 7.6 04/23/24 ADDITIONAL LABS White Blood Cells 14.0 (05/21/24) 9.8 (04/23/24) 12.2 (03/19/24) Cholesterol 130 (04/23/24) HDL 34 (04/23/24) LDL-Calc 81 (04/23/24) Triglycerides 75 (04/23/24) Hep B Surface Antibody 124 (04/23/24) Uric Acid 5.1 (04/23/24) ADDITIONAL COMMENT COMMENTS: 05/26/24 stable 05/28/24 incr bp and meds adj, incr phos binders 04/15/24 stable 04/18/24 doing well 12/19/23 Stable Awaiting [facility] xplant response to get her active xolant list 12/24/23 no new issues 12/31/23 stable 01/07/24 no new issues 01/21/24 c/o tingling and high K level, start lokema on TTS 01/28/24 stable 02/13/24 doing ok 02/18/24 stable 02/25/24 doing ok 03/03/24 stable 03/10/24 stable 03/17/24 no new issues 03/24/24 stable 04/08/24 stable 05/07/24 doing well, has appt with Dentist 05/16/24 stable Signed by: EDWINA MIN MD on 05/29/2024 at 06:04:42 AM documented in this encounter Plan of Treatment Not on file documented as of this encounter Visit Diagnoses Not on filedocumented in this encounter Care Teams Prefabricator Relationship Specialty Start Date End Date Azucena Bradley MD [address] [place] [address], [address] [place] [address] PCP - General Internal Medicine 01/22/24 documented as of this encounter
--- OUTSIDE RECORDS SUMMARY | 2024-06-26 12:35 | XMS_ITS | Encounter Summary ---
Author Organization [facility] Address [address] [place] [address] Phone Care Team Providers Care Digital Business Analyst Name Role Phone Azucena Bradley MD Primary Care Provider Reason for Visit * Reason Comments Med Refill Encounter Details Date Type Department Care Team (Late st Contact Info) Description 12/25/2021 Refill [facility] [address] [place] [phone] Forrest Adamson MD Social History Tobacco [...] on filedocumented in this encounter Care Teams Digital Business Analyst Relationship Specialty Start Date End Date Azucena Bradley MD [address] [place] [address], [facility] [address] [place] [address] PCP - General Internal Medicine 01/22/24 documented as of this encounter
--- OUTSIDE RECORDS SUMMARY | 2024-06-26 12:35 | XMS_ITS | Clinical Summary ---
Author Organization [employer] Address [address] [facility] [place] [address] Care Team Providers Care Tank Calibrator Name Role Phone Ally Ferreira MD Primary Care Pro vider Allergies Active Allergy Reactions Criticality Noted Date Comments Chlorhexidine 03/07/2022 Other reaction(s): skin sensitivity Other reaction(s): skin sensitivity Iodinated Contrast Media Itching 04/06/2022 Oxycodone Itching,Rash Low 10/13/2021 Skin irritation Tramadol 05/25/2022 Other reaction(s): seizures Medications * This document contains information received from the source organization and may not represent a complete record from that organization. Multiple Vitamin (Daily-Alyx Multivitamin) tablet Take 1 tablet by mouth in the morning. 022 Active hydrALAZINE (Apresoline) 100 MG tablet Take 0.5 tablets (50 mg) by mouth 2 times daily. 30 tablet 1 023 Active [facility] Saline Nasal Randolph 0.65 % nasal spray ADMINISTER 1 SPRAY INTO EACH NOSTRIL IF NEEDED FOR CONGESTION. 44 mL 1 023 Active pyridoxine (Vitamin B-6) 100 MG tablet Take 100 mg by mouth in the morning. 023 Active Cyanocobalamin 1000 MCG capsule Take 1 tablet by mouth in the morning. 90 capsule 024 Active folic acid (Folvite) 800 MCG tablet Take by mouth in the morning. Active carvedilol (Coreg) 25 MG tabletIndicatio ns:Primary hypertension TAKE 1 + 1/2 TABLET BY MOUTH TWICE A DAY WITH FOOD 270 tablet 1 02/29/2 024 Active NIFEdipine XL (Procardia XL) 90 MG 24 hr tabletIndicatio ns:Hypertension , unspecified type TAKE 1 TABLET BY MOUTH IN THE MORNING DO NOT CRUSH, CHEW, OR SPLIT. 90 tablet 1 Active Continuous Glucose Lithographic Artist (Dexcom G6 scale expert) device Use as directed. E10.65 Active Fiasp FlexTouch 100 UNIT/ML injection 4-10 UNITS SUBCUTANEOUSLY 3 TIMES A DAY Active Liletta, 52 MG, 20.1 MCG/DAY intrauterine device 52 mg by Intrauterine route. Active loratadine (Claritin) 10 MG tablet Take 10 mg by mouth in the morning. Active montelukast (Singulair) 10 MG tablet Take 10 mg by mouth at bedtime. Active LORazepam (Ativan) 0.5 MG tablet Take 0.5 mg by mouth Once per day. Active valACYclovir (Valtrex) 500 MG tabletIndicatio ns:History of SIVAKUMAR positive for HSV TAKE 1 TABLET BY MOUTH THREE TIMES A WEEK. GIVE 1 TABLET AFTER DIALYSIS WHEN GIVEN ON DIALYSIS DAY. 36 tablet 2 Active Insulin Disposable Pump (Omnipod 5 [id number] Pods Gen 5) misc 1 each every 3rd (third) day. Change pod every 72 hours Active ipratropium (Atrovent) 0.06 % nasal spray Administer 2 sprays into each nostril if needed in the morning, at noon, and at bedtime (allergies). Active levalbuterol (Xopenex) 45 MCG/ACT inhaler Inhale 2 puffs every 4 (four) hours if needed for wheezing. Active ammonium lactate (Lac-Hydrin) 12 % lotion Apply 1 Application. topically if needed for dry skin. Active Basaglar KwikPen 100 UNIT/ML pen Inject 24 Units under the skin Once per day. Active sevelamer carbonate (Renvela) 800 MG tablet Take 4 tablets by mouth with breakfast, with lunch, and with evening meal. Active Lokelma 10 g packet TAKE 10 GRAMS BY MOUTH 2X A WEEK ON NON DIALYSIS DAYS Active Velphoro 500 MG chewable tablet Chew 1 tablet with breakfast, with lunch, and with evening meal. Active pregabalin (Lyrica) 25 MG capsule Take 1 capsule (25 mg) by mouth 2 times daily. 60 capsule 025 2024 Active Amino Acid Infusion (Prosol) 20 % solution 023 2024 Discontinued(M ed list cleanup (will not trigger notification to Pharmacy)) calcium acetate (Phoslo) 667 MG capsule TAKE 1 CAPSULE BY MOUTH 4 (FOUR) TIMES A DAY (WITH MEALS AND SNACK) 023 2024 Discontinued(M ed list cleanup (will not trigger notification to Pharmacy)) Insulin Glargine-yfgn 100 UNIT/ML solution pen-injector INJECT 18 UNITS SUBCUTANEOUSLY DAILY 2024 Discontinued(M ed list cleanup (will not trigger notification to Pharmacy)) pregabalin (Lyrica) 25 MG capsule Take 1 capsule by mouth 2 times daily. 024 2024 Discontinued(R eorder (will not trigger notification to Pharmacy)) Active Problems Problem Noted Date Diagnosed Date Ascites 09/05/2023 Lung nodule seen on imaging study 01/11/2023 Assessment & Plan (01/11/2023 7:39 PM EDT): -CT ABDOMEN AND PELVIS WITHOUT CONTRAST 11/09/2022 LUNG BASES: L-spine granuloma right lower lobe measuring 4 mm. A few partially visualized bilateral pulmonary nodules are redemonstrated in the right middle lobe measuring up to 2 mm, mostly subsolid stable. Slight tree-in-bud nodularity involving the right middle lobe which may reflect evolving infectious/inflammatory etiology. No pneumothorax. Valvular and coronary artery calcifications are noted. LIVER, GALLBLADDER, AND BILIARY TREE: Liver is mildly enlarged. No focal hepatic lesion or biliary ductal dilatation is present. The gallbladder is unremarkable with no evidence of radiopaque gallstones, gallbladder wall thickening, or obvious pericholecystic inflammatory changes. PANCREAS: Unremarkable. SPLEEN: Unremarkable. ADRENAL GLANDS: Unremarkable. KIDNEYS AND URETERS: The kidneys are normal in size, shape, and attenuation. No hydronephrosis, hydroureter, or calculi seen. No perinephric stranding. BLADDER: Unremarkable. GASTROINTESTINAL TRACT: Mild fecal loading throughout the colon. The small and large bowel are unremarkable. The appendix is unremarkable. PERITONEUM: No ascites noted. ABDOMINAL WALL: Small fat filled umbilical hernia. LYMPH NODES: A few mildly prominent though nonenlarged bilateral inguinal mesenteric and periaortic lymph nodes are noted, not enlarged per size criteria. VASCULAR: Severe atherosclerotic calcifications of all visualized vasculature, far advanced for patient's age. PELVIC VISCERA: Anteverted uterus. Left adnexal/ovarian hypodense focus measuring 2.6 cm. Findings are overwhelmingly likely to represent a normal ovarian follicle. No follow-up imaging recommended. OSSEOUS STRUCTURES: Unremarkable. IMPRESSION: 1. No acute process of the abdomen or pelvis identified. 2. A few partially visualized bilateral pulmonary nodules are redemonstrated in the right middle lobe measuring up to 2 mm, mostly subsolid stable. Slight tree-in-bud nodularity involving the right middle lobe which may reflect evolving versus resolving infectious/inflammatory etiology. 3. Severe atherosclerotic calcifications of all visualized vasculature, far advanced for patient's age. 4. Left adnexal/ovarian hypodense focus measuring 2.6 cm. Findings are overwhelmingly likely to represent a normal ovarian follicle. No follow-up imaging recommended. 5. No ascites visualized. -pt denies any respiratory symptoms but with tree in bud findings and possible transplant in the future would like district claims manager to evaluate pt -referred today Seasonal allergies 01/11/2023 Assessment & Plan (01/11/2023 7:58 PM EDT): Reports seasonal allergies symptoms -px ocean spray,cetirizine 5 mg max 3 times a week Anemia 01/11/2023 Assessment & Plan (01/11/2023 8:03 PM EDT): 07/2022 Hb 9.9, AEC 597 Anemia from chronic dx f w ceramic saw tender -states getting tx w ceramic saw tender- removed from iron pills Peripheral vascular disorder 08/10/2022 Assessment & Plan (01/11/2023 8:06 PM EDT): -CT ABDOMEN AND PELVIS WITHOUT CONTRAST 11/09/2022 LUNG BASES: VASCULAR: Severe atherosclerotic calcifications of all visualized vasculature, far advanced for patient's age. PELVIC VISCERA: Anteverted uterus. Left adnexal/ovarian hypodense focus measuring 2.6 cm. Findings are overwhelmingly likely to represent a normal ovarian follicle. No follow-up imaging recommended. OSSEOUS STRUCTURES: Unremarkable. -pt reports to be following with vascular at [facility] --- ---- requested record to Yariel Verma -continue care w specialist -pt not on ASA nor statins -pathology from renal dx and w normal lipids from last labs in 07/2022 -will check vascular note if was rec by specialist Assessment & Plan (08/10/2022 12:44 PM EDT): f w vascular -reports recent visit was told to have normal LE US Overweight 08/10/2022 Assessment & Plan (08/10/2022 12:49 PM EDT): Advised pt to improve diet and exercise,discussed healthy life style -to see control system computer scientist referred by her endoc Abnormal EKG 08/10/2022 Assessment & Plan (01/11/2023 7:44 PM EDT): -EKG 07/2022 showed now acute ischemic findings there is QTC prolonged to 491 but noted in the past as well -states was seen by cards before unsure reason but w no major findings -found inconclusive stress test done in 2020 -Per pt has been seen by cards at [facility] -sounds possible was evaluated by cards in the ER in the past -- ---- requested record to Yariel Verma Assessment & Plan (08/10/2022 1:03 PM EDT): -EKG today showed now acute ischemic findings there is QTC prolonged to 491 but noted in the past as well -states was seen by cards before unsure reason but w no major findings -found inconclusive stress test done in 2020 -will discuss at next visit about cards referral Health care maintenance 08/10/2022 Assessment & Plan (01/11/2023 8:03 PM EDT): -pap smear last here 01/2021: ASCUS , NEG hpv-To repeat in 3 y -contraception: none-advised pt to start contraception pt interested in implatn option --referred today w Damaris. -reports hx of neg PPD done at her job in the past -vaccine: -tdap 2019 ,covid 19 monov x 3, Bivalent x1 , HPV x3, hep B x3-immune, [id number] x2 and later p13 in 2019 -will offer p20 in 2023,MMRx2,varicellax2,flu vaccine today ------- -from annual labs 07/2022 -Pt not produce urine so not able to get UA sample for Gn/Ch for screening but denies concern for infection -there is a note about cirrhosis hx??? 07/2022 Alk phos 246,AST 37,ALT 40 -f w GI--from last CT scan no findings of cirrhosis nor ascitis -will discuss w pt about this at next apt--- ---- requested record to Yariel Verma Assessment & Plan (08/10/2022 1:05 PM EDT): -labs x annual exam -not in fasting -pap smear last here 01/2021: ASCUS , NEG hpv-To repeat in 3 y -reports hx of neg PPD done at her job in the past -vaccine: ---tdap 2011-to offer at future visit ,covid 19 monov x 3, Bivalent x1 ( 01/2022) ---Will discuss about booster w Bivalent x chronic ESRD at nxt visit , HPV x3, hep B x3, [id number] x2 and later p13 in 2019 ,MMRx2,varicellax2 -will discuss about Contraception at her next apt -there is a note about cirrhosis hx??? -f w GI--has f up apt w GI in 11/2022-Will discuss about this w pt at her next apt ASCUS of cervix with negative high risk HPV 07/16 Assessment & Plan (08/10/2022 1:00 PM EDT): Pap smear 01/2021 ASCUS neg HPV---per guidelines to repeat in 3 years Anxiety 05/25/2022 Assessment & Plan (05/01/2023 1:13 PM EST): During IBH Consult Natali presenting with excessive worry/anxiety, difficulty controlling worry, easily fatigued, and difficulty concentrating/Mind going blank ; for a period of 18+ mo, for all symptoms in the context of illness or family illness. Natali endorsed chronic medic conditions that lead to anxiety and sense of isolation. She's currently waiting for kidney transplant and gets dialysis being this the main cause for anxiety and distress. PLAN: (check all that apply) New/Additional Services needed PCP management Off-site services for . Natali was offered same-day appointments with [facility]/intake. Patient prefers a referral outside the HC. If needed, clinician will be available during next physical appointment to provide extra support. Assessment & Plan (01/16/2023 8:35 AM EDT): Assessment: Patient with nervousness, trouble relaxing, restlessness and anxiety attacks (tight chest, feels as she can't breathe) in the context of current health (waiting to be placed on Kidney transplant list). Patient will benefit from a referral for OP therapy. At this time Natali Mtz meets criteria for Visit Diagnoses: Problem List Items Addressed This Visit Other Anxiety Patient ready to address current needs Yes Strengths include advocating for self PLAN: 1. Follow up with [facility]: Not recommended for follow-up 2. Patient goal is improve medical health 3. Behavioral Recommendations a. Will engage in therapy, once established b. Will continue complying with medical recommendations c. Utilize coping techniques provided d. May reach out to [facility], if needed Assessment & Plan (01/11/2023 7:57 PM EDT): Denies depression but feeling anxious for all her chronic dx -Referred today to -seen at office today -pt interested to start care as outpt Assessment & Plan (08/10/2022 12:50 PM EDT): Denies depression Referred today to -monitor ESRD on hemodialysis 05/25/2022 Assessment & Plan (01/11/2023 7:48 PM EDT): cara rowland ceramic saw tender on HD ( [facility]) In eval x renal/pancreatic transplant----however From note from transplant team in system from 12/27/2022: Major concern for transplant candidacy is the severe vascular disease as documented objectively by the abdominal/pelvic CT and surgical review. Overall, the risks of undergoing a transplant surpass the potential benefits for this patient. Therefore, the committee decided to decline for transplant. -Pt states was evaluated by vascular and was told that there is no contraindication for the transplant. -I called today CM from the hospital # [id number]-Fcfwck and discussed pt's concern to be taken out from transplant list . CM states she is in process to discuss w transplant team to see if decision can be reevaluated -pt will greatly benefit from pancreatic-renal transplant to improve survival in this young pt --Mahsa said that she will contact pt this week or max next with information --I gave my phone number to be contacted if needed as well advised pt to call if transplant is denied to investigate options for a second opinion . Assessment & Plan (08/10/2022 1:01 PM EDT): f w ceramic saw tender on HD ( [facility]) In eval x renal/pancreatic transplant Hypertension 05/25/2022 Assessment & Plan (01/11/2023 7:44 PM EDT): BP at home better controlled at home per pt and from all renal HD visit notes --here elevated today but not took this am yet meds EKG 07/2022 w only QTc prolongation to 491 w no ischemic changes -previous one QTc in was 483 in 2020 -Continue hydralazine 50 mg BID-BUT ONLY on days that is NOT having HD -her sessions are on --pt taking after checking BP -if low BP holds dose -continue losartan per pt taking 2 tab of 100 mg?? --px by her ceramic saw tender --advised pt to follow w her specialist to confirm dose of med Assessment & Plan (08/10/2022 12:41 PM EDT): BP at home per pt <140/90 Stopped hydralazine by her ceramic saw tender for hypotensive episodes after HD Currently denies any CV nor neurologic acute complaints w normal exam eKG today w only notde QTc prolongation to 491 w no ischemic changes -previous one QTc in was 483 in 2020 -resume hydralazine 50 mg to start daily but if BP elevated to go to BID BUT ONLY on days that is NOT having HD -her sessions are on -- -alarm signs and symptoms explained to pt -will need to clarify w pt if taking losartan ? -all meds refilled by her ceramic saw tender ,states dont need any meds refilled -f BP at her next apt -advised to check at home and bring readings Hyperlipidemia 09/06/2012 Proteinuria 01/09/2012 03/07/2023 DM (diabetes mellitus), type 1 with renal compli cations 04/16/1958 Assessment & Plan (01/11/2023 8:05 PM EDT): dxed w DM1 at age 11 y of age c/w nephropathy -ESRD on HD complicated w hypoglycemic events f w bilingual administrative assistant -Dr Morro Amor on novolog SS ( 6 to 8 u TID)and lantus 18 u HS Hb1AC capillary today is 12.3<---12, LDL 86,CBG elevated today at 235 -gas usage meter clerk referred today -ry has apt for 05/2023 -sent glucose tab-before and would discuss about gluconate at next visit x emergency -continue care w her bilingual administrative assistant -will hold on doing Changes per pt her CBGS are better controlled at home compare w before since incased lantus to 18 u from 10 ----will check w pt why not on insulin pump at next visit? -CBG elevated today at 235 but pt has not eat yet -pt states will get home and eat and will inj insulin then Assessment & Plan (08/10/2022 1:02 PM EDT): dxed w DM1 at age 11 y of age c/w nephropathy -ESRD on HD complicated w hypoglycemic events f w bilingual administrative assistant -Dr Morro Amor on novolog SS ( 6 to 8 u TID)and lantus 10 u HS --got today records of her last visit w endo in 07/2022 Hb1AC capillary 12 today --from last endo note had hb1AC in 07/2022 10.9? -gas usage meter clerk referred already by her bilingual administrative assistant -pd to abigail apt -opthalmo referral today Pt has continuous capillary glucose check marking bw 55 to 400s ----pt takes her readings to her endo office to do changes in meds -to take tomorrow to endo's office -Pd to see a electronic tech and control system computer scientist referred by her bilingual administrative assistant ----pt recently got the CGM by her endo and plan is to f up this week recent glucose to do changes and also in plan x insulin pump -today here in office had initially glucose in 180s but w her machine was in 50s and pt was feeling slight shaking -states its common for her to have this elevated and low CBgs ,gave here glucose gel and 30 m late still low so gave another gel---rechecked was in 100s-pt feeling well -alarm signs and symptoms discusses -sent glucose tab and would discuss about gluconate at next visit x emergency Resolved Problems Problem Noted Date Diagnosed Date Resolved Date Leukocytosis 04/28/2023 10/23/2023 Ear pain, right 08/10/2022 01/11/2023 Assessment & Plan (08/10/2022 12:38 PM EDT): Possible small swelling could be a tiny pimple forming ? No alarming findings -warm compresses -doxy BID x 5 days ESRD (end stage renal disease) on dialysis 05/25/2022 08/10/2022 Acute osteomyelitis of left foot 12/17/2019 08/10/2022 Encounters Date Type Department Care Team Description 06/26/2024 Orders Only GENERIC EXTERNAL DATA DEPARTMENT Provider, Generic External Data 06/23/2024 Telephone [facility] [address] [place] [id number] Ally Ferreira MD May recalls 06/03/2024 Refill [facility] [address] [place] [address] Ally Ferreira MD 05/30/2024 11:00 AM EST Telemedicine [facility] [address] [place] [address] Randi Marcelino, PharmD Type 1 diabetes mellitus with chronic kidney disease on chronic dialysis ([facility]) (Primary Dx); Hypertension, unspecified type; Hyperlipidemia, unspecified hyperlipidemia type 05/13/2024 10:30 AM EST Office Visit [facility] [place] [address] Rosy Dawson ANP Hospital discharge follow-up (Primary Dx); Hyperkalemia; Type 1 diabetes mellitus with chronic kidney disease on chronic dialysis ([facility]); Arm DVT (deep venous thromboembolism), acute, right ([facility]); ESRD on hemodialysis ([facility]); Elevated brain natriuretic peptide (BNP) level 05/13/2024 Travel 05/12/2024 Telephone [facility] [address] [place] [address] Ally Ferreira MD 04/25/2024 Telephone [facility] [address] [place] [address] Onur Rice PharmD [facility] Follow-up 04/24/2024 Orders Only GENERIC EXTERNAL DATA DEPARTMENT Provider, Generic External Data 04/19/2024 Refill [facility] [address] [facility] [place] [address] Ally Ferreira MD History of SIVAKUMAR positive for HSV 04/14/[address] [address] Ally Ferreira MD 04/07/2024 Patient Outreach [address] [address] Ally Ferreira MD Transition Of Care (Tcm) (HDF- Scheduled) 04/03/[address] [address] Lucie Hope RN 04/02/2024 Patient Outreach [address] [phone] Ally Ferreira MD Transition Of Care (Tcm) (HDF- unscheduled) from Last 3 Months Immunizations Name Administration Dates Next Due DTP 09/11/1995,01/23/1994 DTaP 09/11/1995,01/23/1994 DTaP / HiB / IPV 05/05/1993,02/22/1993, 3 HPV, Quadrivalent 03/31/2008,02/26/2007,01/23/20 07 Hep A, Adult 12/16/2019 Hep B, Adolescent or Pediatric 8,07/25/1996,10/24/1995,09/16 Hep B, Unspecified 04/16/2019,09/27/2018, 019 Hep B, adult 05/13/2007, 7,10/24/1995,09/16 IPV 09/11/1995 Influenza Whole 01/20/2015 Influenza injectable quadriv alent preservative free 01/11/2023 Influenza, IIV3, injectable 02/08/2024, 0,04/02/2014 Influenza, Split (incl. maria e fied surface antigen) 01/30/2013,01/08/2012 Influenza, Unspecified 01/30/2013,01/08/2012 MMR 12/22/1992,1992 Meningococcal ACWY, unspecified 04/26/2007 Meningococcal MCV4P ACYW-135 04/26/2007 Pfizer Covid-19 Vaccine 12+ 05/13/2024, 4 Pneumococcal Conjugate PCV 13 08/02/2018 Pneumococcal Conjugate PCV 20 04/26/2023 Pneumococcal Polysaccharide PPSV23 08/21/2018,,01/30/2013 TD (adult), 2 Lf tetanus tox oid, preservative free, adsorbed 12/27/2004 Td (adult), unspecified 12/27/2004 Tdap 12/16/2019,03/24/2015,01/31/2012 Varicella 07/06/2005,12/27/2004 Family History Medical History Relation Name Comments Diabetes type II Father unspecified ca Paternal Grandfather Relation Name Status Comments Father Paternal Grandfather Social History Tobacco Use Types Packs/Day Years Used Date Smoking Tobacco: Never Smokeless Tobacco: Never Tobacco Cessation:Counseling Given: Not Answered Alcohol Use Standard Drinks/Week Comments Not Currently 0 (1 standard drink = 0.6 oz pur e alcohol) Depression Answer Date Recorded Patient Health Questionnaire-9 Score 0 07/31/2023 Patient Health Questionnaire-9 Score 0 07/31/2023 Last PHQ-9: Questionnaire Data Not on file 0 07/31/2023 Housing Stability Answer Date Recorded What is your housing situation today? I have hermann miramontes 01/29/[address] you li ve. Do you have problems with any of the following? None of the above 01/29/2023 Food Insecurity Answer Date Recorded Within the past 12 months, y ou worried that your food would run out before you got money to buy more: Never True 01/29/2023 Within the past 12 months,th e food you bought just didn't last and you didn't have enough money to get more: Never True Transportation Answer Date Recorded In the past 12 months, has l ack of transportation kept you from medical appts, meetings, work or from getting things needed for daily living? No 01/29/2023 Utilities Answer Date Recorded In the past 12 months, has t he electric, gas, oil or water company threatened to shut off services in your home? No 01/29/2023 Depression Answer Date Recorded Patient Health Questionnaire-2 Score 0 07/31/2023 Comments No Sex and Gender Information Value Date Recorded Sex Assigned at Female 02/13/2022 10:17 AM EDT Legal Sex Female 10:17 AM EDT Gender Identity Female 02/13/2022 10:17 AM EDT Sexual Orientation Straight 04/26/2023 9: 30 AM EST Last Filed Vital Signs Vital Sign Reading Time Taken Comments Blood Pressure 169/85 05/13/2024 10:39 AM EST Pulse 88 05/13/2024 10:39 AM EST Temperature 36.3 ??C (97.3 ??F) 05/13/2024 1 0:39 AM EST Respiratory Rate 14 05/13/2024 10:3 9 AM EST Oxygen Saturation 98% 05/13/2024 10: 39 AM EST Inhaled Oxygen Concentration - - Weight 71.6 kg (157 lb 12.8 oz) 025 10:39 AM EST Height 154.9 cm (5' 1 ) 10/23/2023 11:4 0 AM EDT Body Mass Index 29.82 10/23/2023 11:40 AM EDT Plan of Treatment Upcoming Encounters Date Type Department Care Team (Late st Contact Info) Description 09/02/2024 10:15 AM EDT Office Visit [facility] [address] [place] [address] Ally Ferreira MD [address] [place], [place] [phone] Health Maintenance Due Date Last Done Comments Diabetes: Foot Exam 09/09/2001 Alcohol/Substance Use Screening 2003 Family Planning (PISQ) 09/09/2006 Diabetes: Hemoglobin A1C 12/07/2023 024, 04/26/2023, 01/11/2023, Additional history exists Eye Exam 06/18/2024 06/19/2023, 030 08/2023, 06/19/2023, Additional history exists SDOH Screening 07/18/2024 07/19/2023 Depression Screening 07/30/2024 07/31/2023, 07/31/19 24 Lipid Panel 09/05/2024 09/06/2023, 040 11/2023, 08/11/2022, Additional history exists Tobacco Screening 05/13/2025 05/13/2024 Cervical Cancer Screening 05/17/2028 HPV/Cotest 05/17/2028 02/03/2021 Pap Smear 05/17/2028 05/17/2023, 02/03/2021 DTaP/Tdap/Td Vaccines (9 - Td or Tdap) 12/15/2029 12/16/2019, 03/24/2015, 01/31/2012, Additional history exists Pneumococcal Vaccine: Pediatrics (0 to 5 Years) and At-Risk Patients (6 to 49) Years) (3 of 3 - PCV20 or PCV21) 09/09/2041 04/26/2023, 08/21/2018, 08/02/2018, Additional history exists Zoster Vaccines (1 of 2) 09/09/2041 RSV Patients and Patients Aged 60 years or older (1 - 1-dose 75+ series) 09/09/2066 HIB Vaccines Completed 05/05/1993, 12/1992, 12/22/1992 IPV Vaccines Completed 09/11/1995, 04/17, 02/22/1993, Additional history exists Meningococcal Vaccine Aged Out 04/26/2007, 008 No longer eligible based on patient's age to complete this topic HPV Vaccines Completed 03/31/2008, 02/14, 01/22/2007 Hepatitis B Vaccines Completed 04/16/2019, 09/27/2018, 07/29/2018, Additional history exists Hepatitis A Vaccines Aged Out 12/16/2019 No long er eligible based on patient's age to complete this topic HIV Screening Completed 09/06/2023, 08/11/2022 Hepatitis C Screening Completed 09/06/2023, 023 Influenza Vaccine Completed 02/08/2024, , 05/27/2019, Additional history exists COVID-19 Vaccine Completed 05/13/2024, , 01/26/2022, Additional history exists RSV under 20 months Aged Out No longe r eligible based on patient's age to complete this topic Rotavirus Vaccines Aged Out No longer eligible based on patient's age to complete this topic Procedures Procedure Name Priority Date/Time Associated Diagnosis Comments GLUCOSE, WHOLE BLOOD Routine 06/26/2024 10:22 AM EDT GLUCOSE, WHOLE BLOOD Routine 04/24/2024 10:12 AM EST HEPATITIS C AB W/REFL TO HCV RNA, QN, PCR Routine 09/06/2023 10:47 AM EDT Annual physical exam HIV 1/2 ANTIGEN/ANTIBODY, FOURTH GENERATION W/RFL Routine 09/06/2023 10:47 AM EDT Annual physical exam HEMOGLOBIN A1C Routine 09/06/2023 10:47 AM EDT Annual physical exam LIPID PANEL, STANDARD Routine 09/06/2023 10:47 AM EDT Annual physical exam PAP SMEAR Routine 05/17/2023 12:00 AM EST HPV MRNA E6/E7 Routine 02/03/2021 9:37 AM EDT from Last 3 Months or Most Recently Relevant to Health Maintenance Results * (ABNORMAL) Glucose, Whole Blood (06/26/2024 10:22 AM EDT) Only the most recent of2 resultswithin the time period is included. Glucose, Whole Blood 188(H) 60 - 115 mg/dL [facility] Comment:METER #: [id number] Testing performed in the Endocrinology Department [address] , [address], [facility]. 06/26/2024 10:2 2 AM EDT 06/26/2024 10:24 AM EDT us Generic External Data Provider LAB BLOOD ORDERAB LES Final Result Performing Organization Address [facility]/ZIP Co de Phone Number [facility] [address] [place] [address] [phone] * Hepatitis C Antibody with Reflex to HCV, RNA, Quantitative, Real-Time PCR (09/06/2023 10:47 AM EDT) Pathologist [facility] Hepatitis C Antibody Nonreactive Nonreactive [facility] Comment:Antibodies to HCV no t detected; does not exclude early acuteHCV infection. Blood Venous blood specimen / Unknown 09/06/2023 10:47 AM EDT 09/06/2023 10:47 AM EDT us Ally Ferguson MD LAB BLOOD ORDERAB LES Final Result Performing Organization Address [facility] Co de Phone Number [facility] [address] [place] [address] [phone] * HIV-1/2 Antigen and Antibodies, Fourth Generation, with Reflexes (09/06/2023 10:47 AM EDT) HIV AB/AG Nonreactive Nonreactive [facility] Comment:HIV-1 p24 Ag and/or HIV-1/HIV-2 Ab not detected.A test result that is nonreactive does not exclude thepossibility of exposure to or infection with HIV-1 and/orHIV-2. Nonreactive results in this assay for individualswith prior exposure to HIV-1 and/or HIV-2 may be due toantigen and antibody levels that are below the limit ofdetection of this assay.The scribleniThinkCERCA HIV Ag/Ab Combo assay result andsupplemental assay results should be interpreted inconjunction with the patient's clinical presentation,history and other laboratory results. If the results areinconsistent with clinical evidence, additional testing issuggested to confirm the result. Blood Venous blood specimen / Unknown 09/06/2023 10:47 AM EDT 09/06/2023 10:47 AM EDT us Ally Ferguson MD LAB BLOOD ORDERAB LES Final Result Performing Organization Address [facility] Co de Phone Number [facility] [address] [place] [address] [phone] * (ABNORMAL) Hemoglobin A1c (09/06/2023 10:47 AM EDT) Hemoglobin A1c 9.4(H) <6.0 % [facility] Comment:Hemoglobin A1C Refer ence Range Adults: 4.8 - 6.0 % Non diabetic: < 6.0 % Goal: < 7.0 %Additional Action Suggested: > 8.0 %Note: Hemoglobin A1c results are invalid for patients with abnormal amounts of HbF. Blood transfusions may impact the HbA1c concentration in the patient sample. Estimated Average Glucose 223 mg/dL [facility] Comment:eAG = Estimated ave rage glucose which is %A1C expressed asaverage glucose, using the formula of the [id number] Glucose study (ADAG), Diabetes Care, Vol.31,#8,Nov. 2007 Blood Venous blood specimen / Unknown 09/06/2023 10:47 AM EDT 09/06/2023 10:47 AM EDT us Ally Ferguson MD LAB BLOOD ORDERAB LES Final Result Performing Organization Address [facility] Co de Phone Number [facility] [address] [place] [phone] * (ABNORMAL) Lipid Panel, Standard (09/06/2023 10:47 AM EDT) Triglycerides 256(H) <150 mg/dL [facility] Comment:Desirable Triglyceri de: less than 150 mg/dLBorderline High Triglyceride 150-199 mg/dLHigh Triglyceride: 200-499 mg/dLVery High Triglyceride: greater than or equal to 5OO mg/dL Cholesterol 203(H) <200 mg/dL [facility] Comment:Desirable Cholestero l: less than 200 mg/dLBorderline High Cholesterol: 200-239 mg/dLHigh Cholesterol: greater than 239 mg/dL LDL Cholesterol Calculated 123(H) <100 mg/dL [facility] Comment:Desirable LDL: less than 100 mg/dLNear Optimal/Above Optimal LDL: 110- 129 mg/dLBorderline High LDL: 130-159 mg/dLHigh LDL: 160-189 mg/dLVery High LDL: greater than or equal to 190 mg/dL HDL Cholesterol 29(L) >40 mg/dL [facility] Comment:Desirable HDL: great er than 40 mg/dL Note: This HDL assay may give artificially low results in patients with liver disease. Blood Venous blood specimen / Unknown 09/06/2023 10:47 AM EDT 09/06/2023 10:47 AM EDT Ally Ferguson MD LAB BLOOD ORDERAB LES Final Result [facility] [address] [place] [phone] * Pap Smear (05/17/2023 12:00 AM EST) Swab us Historical Provider LAB CYTOLOGY ORDERABLES F inal Result [facility] [address] [place] [phone] * HPV mRNA E6/E7 (02/03/2021 9:37 AM EDT) HPV nRNA E6/E7 Not Detected Not Detected [facility] Comment: Methodology: Manager Floral-Mediated Amplification This assay detects E6/E7 viral messenger RNA (mRNA) from 14 high-risk HPV types (16,18,31,33,35,39,45,51,52,56,58,59,66,68). ? The analytical performance characteristics of this assay have been determined by [employer]. The modifications have not been cleared or approved by the FDA. This assay has been validated pursuant to the CLIA regulations and is used for clinical purposes. ?? For additional information, please refer to http://education.[employer]/faq/GPE392y2 (This link if provided for information/ educational purposes only.) HPV nRNA E6/E7 Not Detected Not Detected [facility] Comment: Methodology: Manager Floral-Mediated Amplification This assay detects E6/E7 viral messenger RNA (mRNA) from 14 high-risk HPV types (16,18,31,33,35,39,45,51,52,56,58,59,66,68). ? The analytical performance characteristics of this assay have been determined by [employer]. The modifications have not been cleared or approved by the FDA. This assay has been validated pursuant to the CLIA regulations and is used for clinical purposes. ?? For additional information, please refer to http://rubberit.[employer]/faq/ULJ395b8 (This link if provided for information/ educational purposes only.) 02/03/2021 9:37 AM EDT [facility] LAB BLOOD ORDERABLES Araceli maher Result [facility] [address] from Last 3 Months or Most Recently Relevant to Health Maintenance Insurance MEDICARE Care Teams Tank Calibrator Relationship Specialty Start Date End Date Ally Ferreira MD [address] [place] [phone] PCP - General Internal Medicine 07/25/22
--- OUTSIDE RECORDS SUMMARY | 2024-06-26 12:35 | XMS_ITS | Encounter Summary ---
Author Organization [employer] Address [address] [facility] 7 [place] [address] Care Team Providers Care Supervisor Filling And Packing Name Role Phone Ally Ferreira MD Primary Care Pro vider Reason for Visit * Reason Onset Date Comments c/b request 01/19/2023 Encounter Details Date Type Department Care Team ([facility] st Contact Info) Description 01/19/2023 Telephone [facility] [address] [place], [place] [phone] Ally Ferreira MD [address] [place] [address] c/b request Social History Tobacco Use Types Packs/Day Years Used Date Smoking Tobacco: Never Smokeless Tobacco: Never Alcohol Use Standard Drinks/Week Comments Not Currently 0 (1 standard drink = 0.6 oz pur e alcohol) Depression Answer Date Recorded Patient Health Questionnaire-9 Score 0 08/10/2022 Housing Stability Answer Date Recorded What is your housing situation today? I have hermann miramontes 01/20/[address] you li ve. Do you have problems with any of the following? None of the above 01/20/2023 Food Insecurity Answer Date Recorded Within the past 12 months, y ou worried that your food would run out before you got money to buy more: Never True 01/20/2023 Within the past 12 months,th e food you bought just didn't last and you didn't have enough money to get more: Never True 10/2022 Transportation Answer Date Recorded In the past 12 months, has l ack of transportation kept you from medical appts, meetings, work or from getting things needed for daily living? No 01/20/2023 Utilities Answer Date Recorded In the past 12 months, has t he electric, gas, oil or water company threatened to shut off services in your home? No 01/20/2023 Depression Answer Date Recorded Patient Health Questionnaire-2 Score 0 08/10/2022 Comments Unknown Sex and Gender Information Value Date Recorded Sex Assigned at Female 02/13/2022 10:17 AM EDT Legal Sex Female 10:17 AM EDT Gender Identity Female 02/13/2022 10:17 AM EDT Sexual Orientation Straight 04/26/2023 9: 30 AM EST documented as of this encounter Miscellaneous Notes * Telephone Encounter - Radha Hernandez RN - 01/29/2023 11:52 AM EDT Telephone call returned to patient in regards to below message. Patient stated she was not evaluated was just denied. Patient verbalized understanding and denied having any further questions or concerns at this time. * Telephone Encounter - Jessi Casey - 01/23/2023 3:14 PM EDT Tc from patient returning call back, in regards to kidney transplant denial. Patient states it was at [facility] that it was denied, due to vascular problems. * Telephone Encounter - Yasmin Krishna RN - 01/23/2023 10:59 AM EDT Telephone call to regarding the following message from Dr. Perry : Please can you check with pt denial was from [facility] or from [facility]? No answer. Message was left to return call to the green team nurses. * Telephone Encounter - Jacinta Porras - 01/19/2023 1:45 PM EDT Tc from pt advising PCP pt was denied for kidney transplant. Please contact pt at [phone] documented in this encounter Plan of Treatment Upcoming Encounters Date Type Department Care Team (Late st Contact Info) Description 09/02/2024 10:15 AM EDT Office Visit [facility] [address] [place] [address] Ally Ferreira MD [address] [place] [address] documented as of this encounter Visit Diagnoses Not on filedocumented in this encounter Additional Health Concerns Assessment Noted Time PHQ-9 Depression Total Score: 0 08/11/19 9:11 AM EDT documented as of this encounter Care Teams Supervisor Filling And Packing Relationship Specialty Start Date End Date Ally Ferreira MD [address] [place] [phone] PCP - General Internal Medicine 07/25/22 documented as of this encounter
--- OUTSIDE RECORDS SUMMARY | 2024-06-26 12:35 | XMS_ITS | Encounter Summary ---
Author Organization [facility] Address [address] [place] [phone] Phone Care Team Providers Care Fur Vault Attendant Name Role Phone Azucena Bradley MD Primary Care Provider + [phone] Encounter Details Date Type Department Care Team (Late st Contact Info) Description 06/13/2024 Treatment [facility]. [address] [phone] Edwina Min MD [address] [address] End stage renal disease; Dependence on renal dialysis Social History Tobacco Use Types Packs/Day Years [...] Dialysis Note - Edwina Min MD - 06/13/2024 12:00 AM EST Patient: Natali Mtz : 1990 Note Type: Dialysis Rounds-Basic Telehealth Service Date: 06/13/2024 Telehealth encounter using audiovisual technology, performed according to state requirements. Appropriate patient consent obtained. This patient was personally seen for a basic visit as part of routine monthly dialysis care for end stage renal disease. Attending Vehicle And Equipment Cleaner: EDWINA MIN MD Dialysis Location: [facility] Schedule: M-W-F Shift: 2 ADEQUACY ASSESSMENT Kt/V, Natural Log [...] 134 (04/23/24) 133 (03/19/24) ANEMIA ASSESSMENT Hgb 8.1 (06/09/24) 9.7 (06/04/24) 11.3 (05/21/24) Iron Saturation (TSat) 25 (05/21/24) 31 (04/23/24) [...] 05/21/24 9.3 04/23/24 9.3 03/19/24 Phosphorus, Serum 8.5 06/04/24 7.8 05/21/24 9.1 05/07/24 Ca*PO4 78.0 05/21/24 74.4 04/23/24 67.0 03/19/24 [...] bp and meds adj, incr phos binders 06/13/24 stable, msg sent to [facility] looking for update as to status 04/15/24 stable 04/18/24 doing well 12/19/23 Stable [...] stable Signed by: EDWINA MIN MD on 06/13/2024 at 10:25:21 PM documented in this encounter Plan of Treatment Not on file documented as of this encounter Visit Diagnoses Diagnosis End stage renal disease Dependence on renal dialysis documented in this encounter Care Teams Fur Vault Attendant Relationship Specialty Start Date End Date Azucena Bradley MD [address] [place] [address], Floor [address] [place] [address] PCP - General Internal Medicine 01/22/24 documented as of this encounter
--- OUTSIDE RECORDS SUMMARY | 2024-06-26 12:35 | XMS_ITS | Encounter Summary ---
Author Organization [employer] Address [address] 7t [place] [address] Care Team Providers Care Plant Associate Name Role Phone Ally Ferreira MD Primary Care Pro vider Reason for Visit * Reason Comments Med Refill Encounter Details Date Type Department Care Team ([facility] Contact Info) Description 09/02/2022 Refill [facility] [address] [place] [address] Blair Lopez AGNP Hypertension, unspecified type Social History Tobacco Use Types Packs/Day Years Used Date Smoking Tobacco: Never Smokeless Tobacco: Never Alcohol Use Standard Drinks/Week Comments Not Currently 0 (1 standard drink = 0.6 oz pur e alcohol) Depression Answer Date Recorded Patient Health Questionnaire-9 Score 0 08/10/2022 Depression Answer Date Recorded Patient Health Questionnaire-2 Score 0 08/10/2022 Comments Unknown Sex and Gender Information Value Date Recorded Sex Assigned at Female 02/13/2022 10:17 AM EDT Legal Sex Female 10:17 AM EDT Gender Identity Female 02/13/2022 10:17 AM EDT Sexual Orientation Straight 04/26/2023 9: 30 AM EST COVID-19 Exposure Response Date Recorded In the last 10 days, have yo u been in contact with someone who was confirmed or suspected to have Coronavirus/COVID-19? No / Unsure 08/10/2022 8:55 AM EDT documented as of this encounter Plan of Treatment Upcoming Encounters Date Type Department Care Team ([facility] Contact Info) Description 09/02/2024 10:15 AM EDT Office Visit [facility] [address] [place] [address] Ally Ferreira MD [address] [place] [address] documented as of this encounter Visit Diagnoses Diagnosis Hypertension, unspecified type documented in this encounter Additional Health Concerns Assessment Noted Time PHQ-9 Depression Total Score: 0 08/11/19 9:11 AM EDT documented as of this encounter Care Teams Plant Associate Relationship Specialty Start Date End Date Ally Ferreira MD [address] [place] [address] PCP - General Internal Medicine 07/25/22 documented as of this encounter
--- OUTSIDE RECORDS SUMMARY | 2024-06-26 12:35 | XMS_ITS | Encounter Summary ---
Author Organization [facility] Address [address] [place] [phone] Phone Care Team Providers Care Floatman Name Role Phone Azucena Bradley MD Primary Care Provider + [phone] Encounter Details Date Type Department Care Team (Late st Contact Info) Description 06/18/2024 Treatment [facility]. [address] [phone] Edwina Min MD [address] [phone] End stage renal disease; Dependence [...] Dialysis Note - Edwina Min MD - 06/18/2024 12:00 AM EST Patient: Natali Mtz : 1990 Note Type: Dialysis Rounds-Basic Telehealth Service Date: 06/18/2024 Telehealth encounter using audiovisual technology, performed according to state requirements. Appropriate patient consent obtained. This patient was personally seen for a basic visit as part of routine monthly dialysis care for end stage renal disease. Attending Director Workforce Management: EDWINA MIN MD Dialysis Location: [facility] Schedule: M-W-F Shift: 2 ADEQUACY [...] phos binders 06/13/24 stable, msg sent to [facility] looking for update as to status 06/18/24 stable 04/15/24 stable 04/18/24 doing well 12/19/23 Stable [...] stable Signed by: EDWINA MIN MD on 06/18/2024 at 01:19:38 PM documented in this encounter Plan of Treatment Not on file documented as of this encounter Visit Diagnoses Diagnosis End stage renal disease Dependence on renal dialysis documented in this encounter Care Teams Floatman Relationship Specialty Start Date End Date Azucena Bradley MD [address] [place] [address], Floor [address] [place] [address] PCP - General Internal Medicine 01/22/24 documented as of this encounter
--- OUTSIDE RECORDS SUMMARY | 2024-06-26 12:35 | XMS_ITS | Encounter Summary ---
Author Organization [employer] Address [address] [facility] 7 [place] [address] Care Team Providers Care Local Company Hazmat Driver Name Role Phone Ally Ferreira MD Primary Care Pro vider Reason for Visit * Reason Onset Date Comments May recalls 06/23/2024 Encounter Details Date Type Department Care Team ([facility] st Contact Info) Description 06/23/2024 Telephone [facility] [address] [place], [place] [phone] Ally Ferreira MD [address] [place] [address] May recalls Social History Tobacco Use Types Packs/Day Years [...] encounter Miscellaneous Notes * Telephone Encounter - Misty Gamez MA - 06/23/2024 3:37 PM EDT Telephone call to patient to schedule the following recall: Visit type: Physical Appointment notes: Physical Patient agree to appointment on 09/02/24 at 10:15 AM with [place]. documented in this encounter Plan of Treatment Upcoming Encounters Date Type Department Care Team (Late st Contact Info) Description 09/02/2024 10:15 AM EDT Office Visit [facility] [address] [place] [phone] Ally Ferreira MD [address] [place] [phone] documented as of this encounter Visit Diagnoses Not on filedocumented in this encounter Additional Health Concerns Assessment Noted Time PHQ-9 Depression Total Score: 0 07/31/19 24 11:09 AM EDT documented as of this encounter Care Teams Local Company Hazmat Driver Relationship Specialty Start Date End Date Ally Ferreira MD [address] [place] [phone] PCP - General Internal Medicine 07/25/22 documented as of this encounter
--- OUTSIDE RECORDS SUMMARY | 2024-06-26 12:35 | XMS_ITS | Encounter Summary ---
Author Organization [facility] Address [address] [place] [address] Care Team Providers Care Motor Vehicle Compliance Analyst Name Role Phone Ally Ferreira Primary Care Provider [phone] Encounter Details Date Type Department Care Team (Late st Contact Info) Description 12/02/2019 Orders Only [facility] Nuclear Medicine [address] [place] [phone] Sihva Duran MD [address] [place] [phone] Social History Tobacco Use Types Packs/Day Years [...] Description 01/27/2025 11:00 AM EDT Social Work [facility] Renal Transplant [address] [place] [address] Chani Vargas LICSW [address] [place] [address] 02/24/2025 10:20 AM EST Follow-Up [facility] Renal Transplant [address] [place] [address] Vinicio Harris MD [address] [place] [address] documented as of this encounter Visit Diagnoses Not on filedocumented in this encounter Care Teams Motor Vehicle Compliance Analyst Relationship Specialty Start Date End Date Ally Ferreira [address] [place] [phone] PCP - General 02/04/24 documented as of this encounter
--- OUTSIDE RECORDS SUMMARY | 2024-06-26 12:35 | XMS_ITS | Encounter Summary ---
Author Organization [facility] Address [address] [place] [phone] Phone Care Team Providers Care Garment Liner Name Role Phone Azucena Bradley MD Primary Care Provider [phone] Encounter Details Date Type Department Care Team (Late st Contact Info) Description 05/19/2024 Treatment [facility] [address] [phone] Edwina Min MD [address] [address] Social History Tobacco Use Types [...] Dialysis Note - Edwina Min MD - 05/19/2024 12:00 AM EST Patient: Natali Mtz : 1990 Note Type: Dialysis Rounds-Basic Service Date: 05/19/2024 This patient was personally seen for a basic visit as part of routine monthly dialysis care for end stage renal disease. Attending Fork Truck Operator: EDWINA MIN MD Dialysis Location: [facility] Schedule: Shift: 2 ADEQUACY ASSESSMENT Kt/V, [...] Uric Acid 5.1 (04/23/24) ADDITIONAL COMMENT COMMENTS: 05/19/24 stable 05/26/24 stable 05/28/24 incr bp and meds [...] stable Signed by: EDWINA MIN MD on 06/12/2024 at 03:33:46 AM documented in this encounter Plan of Treatment Not on file documented as of this encounter Visit Diagnoses Not on filedocumented in this encounter Care Teams Garment Liner Relationship Specialty Start Date End Date Azucena Bradley MD [address] [place] [address], Floor [address] [place] [address] PCP - General Internal Medicine 01/22/24 documented as of this encounter
--- OUTSIDE RECORDS SUMMARY | 2024-06-26 12:35 | XMS_ITS | Encounter Summary ---
Author Organization [facility] Address [address] [place] [address] Phone Care Team Providers Care Insurance Claims Clerk Name Role Phone Azucena Bradley MD Primary Care Provider [phone] Reason for Visit * Reason Comments Med Refill Encounter Details Date Type Department Care Team (Late st Contact Info) Description 12/24/2021 Refill [facility] [address] [place] [address] Forrest Adamson MD Social History Tobacco [...] on filedocumented in this encounter Care Teams Insurance Claims Clerk Relationship Specialty Start Date End Date Azucena Bradley MD [address] [place] [address], [facility] [address] [place] [address] PCP - General Internal Medicine 01/22/24 documented as of this encounter
--- OUTSIDE RECORDS SUMMARY | 2024-06-26 12:35 | XMS_ITS | Encounter Summary ---
Author Organization [facility] Address [address] [place] [address] Care Team Providers Care Correspondence Analyst Name Role Phone Ally Ferreira Primary Care Provider [phone] Encounter Details Date Type Department Care Team (Late st Contact Info) Description 06/20/2024 Orders Only [facility] Transplant Department [address] [place] [address] Sabina Velázquez RN [address] [place], [place] [phone] ESRD (end stage renal disease) (HCC) (Primary Dx); Pre-transplant evaluation for kidney transplant Social History Tobacco Use Types Packs/Day Years Used Date Smoking Tobacco: Never Passive Smoke Exposure: Never Alcohol Use Standard Drinks/Week Comments Never 0 (1 standard drink = 0.6 oz pur e alcohol) Comments No Sex and Gender Information Value [...] Description 01/27/2025 11:00 AM EDT Social Work [facility] Renal Transplant [address] [place] [address] Chani aVrgas LICSW [address] [place] [address] 02/24/2025 10:20 AM EST Follow-Up [facility] Renal Transplant [address] [place] [address] Vinicio Harris MD [address] [place], [place] [phone] documented as of this encounter Visit Diagnoses Diagnosis ESRD (end stage renal disease) (HCC)- Primary End stage renal disease Pre-transplant evaluation for kidney transplant documented in this encounter Care Teams Correspondence Analyst Relationship Specialty Start Date End Date Ally Ferreira [address] [place] [address] PCP - General 02/04/24 documented as of this encounter
--- OUTSIDE RECORDS SUMMARY | 2024-06-26 12:35 | XMS_ITS | Referral Summary ---
Author Organization [facility] Address [address] [place] [address] Care Team Providers Care Relay Checker Name Role Phone Ally Ferreira Primary Care Provider [phone] Encounters Date Type Department Care Team Description 06/20/2024 Orders Only [facility] Transplant Department [address] [place] [address] Sabina Velázquez, RUTH ANN ESRD (end stage renal disease) (HCC) (Primary Dx); Pre-transplant evaluation for kidney transplant 06/20/2024 Telephone [facility] Department [address] [place] [address] Sabina Velázquez RN 04/03/2024 Orders Only [facility] [address] [place] [address] Sabina Velázquez, RUTH ANN Pre-transplant evaluation for kidney transplant (Primary Dx); ESRD (end stage renal disease) (HCC) from Last 3 Months Allergies Active Allergy Reactions Criticality Noted Date Comments Chlorhexidine Photosensitivity rash 03/07/2022 Other reaction(s): skin sensitivity Other reaction(s): skin sensitivity Other reaction(s): skin sensitivity Iodinated Contrast Media Itching 04/06/2022 Oxycodone Itching,Other (see comments),Rash Low 10/13/2021 Skin irritation Tramadol Seizure High 05/25/2022 Other reaction(s): seizures Medications Freestyle lancets 28 gauge USE TO TEST SIX TIMES A DAY USE DIRECTED 30 DAYS 0 Active Lantus Solostar U-100 Insulin 100 unit/mL (3 mL) insulin pen Inject 18 units in the AM if no dialysis and only 5 units on dialysis days or as directed. 0 Active valACYclovir (VALTREX) 500 mg tablet Take 500 mg by mouth daily. 0 Active BD Ultra-Fine Melissa Pen Needle 4 mm x 32 g USE DIRECTED SIX TIMES A DAY USE DIRECTED 30 DAYS 0 Active carvediloL (COREG) 25 mg tablet 0 Active Daily-Alyx tablet Take 1 tablet by mouth daily. 0 Active acetaminophen (TYLENOL) 325 mg tablet Take 650 mg by mouth. Active Sensipar 30 mg tablet TAKE 1 TABLET BY MOUTH THREE TIMES A WEEK DIRECTED 0 Active calcium acetate,phosphat bind, (PHOSLO) 667 mg capsule Take 2,001 mg by mouth 3 times a day with meals. 3 Active NovoLOG U-100 Insulin aspart 100 unit/mL injection Inject under the skin 3 times a day with meals. Inject 4 units three times a day before meals plus 2 extra units for every 50 mg/dL above 150. 3 Active losartan (COZAAR) 50 mg tablet Take 50 mg by mouth once a day. Active NIFEdipine XL (PROCARDIA XL) 90 mg tablet Take 90 mg by mouth once a day. 3 Active flash glucose sensor (FreeStyle Lola 2 Sensor) kit Change sensor every 14 days. Active Dexcom G6 Sensor device Change sensor every 10 days. E10.65 9 each 3 10/17/2023 12:06 PM EDT 3 Active Dexcom G6 Transmitter device Use as directed. Change every 90 days. E10.65 1 each 3 3 Active Dexcom G6 Geek Squad Manager misc Use as directed. E10.65 1 each 03/06/2023 4:02 PM EST 3 Active loratadine (CLARITIN) 10 mg tablet SMARTSI Tablet(s) By Mouth Daily 4 Active Eliquis DVT-PE Treat 30D Start starter pack (74 tabs) TAKE 2 TABLETS BY MOUTH 2 TIMES A DAY X7 DAYS FOLLOWED BY 1 TABLET TWICE DAILY X23 DAYS 4 Active Active Problems Problem Noted Date Diagnosed Date Intra-dialytic hypotension 01/31/2024 Primary hypertension 03/02/2023 Assessment & Plan (03/02/2023 5:56 AM EST): Her pressure is good today . She is taking carvedilol 37.5 mg twice a day, nifedipine XL 90 mg a day, and losartan 50 mg a day. Diabetic nephropathy associa hannah with type 1 diabetes mellitus ([facility]) 03/02/2023 PAD (peripheral artery disease) 02/27/2023 Assessment & Plan (03/02/2023 5:55 AM EST): She is being seen today by vascular surgery. Assessment & Plan (02/27/2023 6:57 PM EST): She appears to be asymptomatic from her PAD with toe pressures above 100 mmHg and no new wounds or claudication symptoms. 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 She does not appear to have any vascular contraindications to undergoing transplant surgery. She seems to have significant reserve with respect to her perfusion. - No further vascular follow up necessary - No vascular contraindication to kidney transplantation Pre-transplant evaluation for kidney transplant 03/16/2022 ESRD (end stage renal disease) on dialysis Type 1 diabetes mellitus with hyperglycemia Assessment & Plan (03/02/2023 5:54 AM EST): Her diabetes is out of control with an A1c of 10.6% today. However, her A1c today is significantly better than her previous result of 12.3% from late December. We have no blood glucose data on her other than her random sugar of 299 mg/dL at 1PM today. She needs to use a CGM, so we can review her BG data. She met with ROGERS Guzman today and was shown how to use a DexCom G6. I will prescribe one for her and she will use her phone as the reader. This will allow us to see her data remotely, so we can review her blood sugars. She would be a good candidate to use a hybrid closed loop insulin delivery system. We discussed options and she is interested in trying one. She will discuss her choices further with diabetes education. I think she would be a good candidate for an iLet. Resolved Problems Problem Noted Date Diagnosed Date Resolved Date Acute osteomyelitis of left foot 12/17/2019 03/02/2023 Immunizations Immunization Administration Dates Next Due Covid-19 Monovalent Vaccine, Moderna, mRNA, PF 07/09/2020,05/26/2020 [id number] 05/05/1993,02/22/1993,12/22/1992 Diphtheria, Tetanus Toxoids and Acellular Pertussis Vaccine 09/11/1995,01/23/1994 Hep B, Unspecified 04/16/2019,09/27/2018, 019 Hepatitis A Vaccine, Adult Dosage 12/16/2019 Hepatitis B adult (ENGERIX-B/RECOMBIVAX HB ADULT) vaccine 1 mL IM 05/13/2007,07/25/1996,10/24/1995,09/16 Human Papilloma Virus Vaccin e, Quadrivalent 03/31/2008,02/26/2007,01/22/2007 Influenza, Trivalent, MDV, Injectable 04/02/2014 Influenza, Unspecified 01/30/2013,01/08/2012 Measles, Mumps, and Rubella Vaccine 12/22/1992,0 1992 Meningococcal Polysaccharide (Groups A, C, Y and W-135) Diphtheria Toxoid Conjugate Vaccine (MCV4P) 04/26/2007 Pneumococcal Conjugate Vacci ne, 13 Valent 08/02/2018 Pneumococcal Polysaccharide Vaccine, 23 Valent 04/16/2013,01/30/2013 Poliovirus Vaccine, Inactivated 09/11/1995 Tetanus Toxoid, Reduced Diph theria Toxoid, and Acellular Pertussis Vaccine, Adsorbed 12/16/2019,01/31/2012 Tetanus and Diphtheria Toxoi ds, Adsorbed, Preservative Free (2 Lf of Tetanus Toxoid and 2 Lf of Diphtheria Toxoid) 12/27/2004 Varicella Virus Vaccine 07/06/2005,12/27/2004 Social History Tobacco Use Types Packs/Day Years Used Date Smoking Tobacco: Never Passive Smoke Exposure: Never Tobacco Cessation:Counseling Given: Not Answered Alcohol Use Standard Drinks/Week Comments Never 0 (1 standard drink = 0.6 oz pur e alcohol) Comments No Sex and Gender Information Value Date Recorded Sex Assigned at Female 01/31/2024 11:22 AM EDT Legal Sex Female 1:45 PM EDT Gender Identity Female 03/04/2024 12:21 PM EST Sexual Orientation Straight 03/04/2024 12 :21 PM EST Last Filed Vital Signs Vital Sign Reading Time Taken Comments Blood Pressure 120/75 02/27/2024 2:48 PM EST Pulse 88 02/27/2024 2:48 PM EST Temperature 36.7 ??C (98.1 ??F) 02/21/2024 10:[address] Respiratory Rate 16 02/27/2024 2:48 PM EST Oxygen Saturation 98% 02/27/2024 2:48 PM EST Inhaled Oxygen Concentration - - Weight 67.1 kg (148 lb) 02/27/2024 2:48 PM EST Height 154.9 cm (5' 1 ) 02/27/2024 2:48 PM EST Body Mass Index 27.96 02/27/2024 2:48 PM EST Plan of Treatment Upcoming Encounters Date Type Department Care Team (Late st Contact Info) Description 01/27/2025 11:00 AM EDT Social Work [facility] [address] [place] [address] Chani Vargas LICSW [address] [place] [address] 02/24/2025 10:20 AM EST Follow-Up [facility] [address] [place] [address] Vinicio Harris MD [address] [place] [address] Procedures * Due to [place] state law, this organization might not be sharing negative HIV tests. Procedure Name Priority Date/Time Associated Diagnosis Comments HLA MONTHLY ANTIBODY IDENTIFICATION - CLASS I Routine 05/21/2024 1:23 PM EST Pre-transplant evaluation for kidney transplant ESRD (end stage renal disease) ([facility]) HLA MONTHYLY ANTIBODY IDENTIFICATION - CLASS II Routine 05/21/2024 1:23 PM EST Pre-transplant evaluation for kidney transplant ESRD (end stage renal disease) ([facility]) HLA MONTHYLY ANTIBODY IDENTIFICATION - CLASS II Routine 04/15/2024 11:01 AM EST Pre-transplant evaluation for kidney transplant ESRD (end stage renal disease) ([facility]) HLA MONTHLY ANTIBODY IDENTIFICATION - CLASS I Routine 04/15/2024 11:01 AM EST Pre-transplant evaluation for kidney transplant ESRD (end stage renal disease) ([facility]) POCT GLYCOSYLATED HEMOGLOBIN (HGB A1C) Routine 02/27/2023 1:05 PM EST BASIC METABOLIC PANEL, OUTSIDE LAB Routine 11/21/2022 HEPATITIS C ANTIBODY W/REFLEX TO HCV RNA, QUANTITATIVE PCR Routine 11/30/2020 11:09 AM EDT ESRD (end stage renal disease) on dialysis (CMS/HCC) (HCC) Pre-transplant evaluation for kidney transplant from Last 3 Months or Most Recently Relevant to Health Maintenance Results * Due to [place] state law, this organization might not be sharing negative HIV tests. * (ABNORMAL) POCT Glycosylated Hemoglobin (HGB A1C), interfaced (02/27/2023 1:05 PM EST) Hemoglobin A1C, POCT 10.6(H) <=5.6 % 02/27/2023 1:20 PM EST [facility] Comment: A1C Recommendation for Non- Adults with Diabetes: <7.0% ADA 2011 Standards of Medical Care in Diabetes Blood 02/27/2023 1:05 PM EST 02/27/2023 1:20 PM EST us Robert Meredith MD LAB POCT ORDERABLES - DEVICE Final Result [facility] [address] [place] [address], * (ABNORMAL) Basic Metabolic Panel, Outside Lab (11/21/2022) Sodium 134 mmol/L Potassium 4.2 Chloride 90 Carbon Dioxide 29 BUN 42(H) mg/dL Creatinine 8.04(H) mg/dL Calcium 9.2 mg/dL Blood Structure of peripheral vein / Unknown 11/21/2022 us Gucci Provider LAB BLOOD ORDERABLES Final R esult * Hepatitis C Antibody w/Reflex to HCV RNA, Quantitative PCR (11/30/2020 11:09 AM EDT) Hepatitis C Antibody NON-REACT JOSE RAFAEL NON-REACT JOSE RAFAEL 12/01/2020 8:37 AM EDT Topple Track [facility] Signal To Cut-Off 0.02 <1.00 12/01/2020 8:37 AM EDT [facility] Comment: HCV antibody was non-reactive. There is no laboratory evidence of HCV infection. In most cases, no further action is required. However, if recent HCV exposure is suspected, a test for HCV RNA (test code 45996) is suggested. For additional information please refer to http://education.STEERads/faq/HDR12g5 (This link is being provided for informational/ educational purposes only.) Blood Structure of peripheral vein / Unknown Venipuncture / Unknown 11/30/2020 11:09 AM EDT 11/30/2020 11:33 AM EDT Narrative [facility] - 12/01/2020 8:37 AM EDT [facility] Received Date: Stefan Robbins MD LAB BLOOD ORDERABLES Final Result [address] [facility], [place] [address], Topple Track [facility] [address] [place] [address], from Last 3 Months or Most Recently Relevant to Health Maintenance Insurance MEDICARE [facility] Advance Directives Documents on File Type Date Recorded Patient Quill Cleaner Expl anation Health Care Proxy 01/26/2023 10:42 AM 01/18/23 Health Care Proxy 12/11/2019 8:18 AM 11/30 Care Teams Relay Checker Relationship Specialty Start Date End Date Ally Ferreira [address] [place] [address] [phone] PCP - General 02/04/24
--- OUTSIDE RECORDS SUMMARY | 2024-06-26 12:35 | XMS_ITS | Encounter Summary ---
Author Organization [facility] Address [address] [place] [address] Phone Care Team Providers Care Bacon Stringer Name Role Phone Azucena Bradley MD Primary Care Provider [phone] Reason for Visit * Reason Comments Med Refill Encounter Details Date Type Department Care Team (Late st Contact Info) Description 06/14/2021 Refill [facility] [address] [place] [address] Forrest Adamson MD Social History [...] on filedocumented in this encounter Care Teams Bacon Stringer Relationship Specialty Start Date End Date Azucena Bradley MD [address] [place] [address], [facility] [address] [place] [address] PCP - General Internal Medicine 01/22/24 documented as of this encounter
--- OUTSIDE RECORDS SUMMARY | 2024-06-26 12:35 | XMS_ITS | Encounter Summary ---
Author Organization [employer] Address [address] [place] [address] Care Team Providers Care Marriage And Family Counselor Name Role Phone Ally Ferreira MD Primary Care Pro vider Reason for Visit * Reason Comments Med Refill Encounter Details Date Type Department Care Team ([facility] st Contact Info) Description 05/01/2023 Refill [facility] MEDICINE [address] [place], [place] [phone] Jen Lozoya, [facility] [address] [place] [address] Social History Tobacco Use Types Packs/Day Years [...] encounter Miscellaneous Notes * Telephone Encounter - Jen Lozoya CNM - 05/02/2023 9:11 AM EST Approving, but needs appt for additional refills. * Telephone Encounter - Jen Lozoya CNM - 05/02/2023 9:10 AM EST Please schedule followup with me. I did send in 3m supply of her pill. Thanks! documented in this encounter Plan of Treatment Upcoming Encounters Date Type Department Care Team (Late st Contact Info) Description 09/02/2024 10:15 AM EDT Office Visit [facility] MEDICINE [address] [place] [address] Ally Ferreira MD [address] [place] [address] documented as of this encounter Visit Diagnoses Not on filedocumented in this encounter Additional Health Concerns Assessment Noted Time PHQ-9 Depression Total Score: 0 08/11/19 9:11 AM EDT documented as of this encounter Care Teams Marriage And Family Counselor Relationship Specialty Start Date End Date Ally Ferreira MD [address] [place] [phone] PCP - General Internal Medicine 07/25/22 documented as of this encounter
--- OUTSIDE RECORDS SUMMARY | 2024-06-26 12:35 | XMS_ITS | Encounter Summary ---
Author Organization [employer] Address [address] [place] [address] Care Team Providers Care Air Export Operations Agent Name Role Phone Viri Wall Primary Care Provider [phone] Ally Ferreira MD Primary Care Pro vider Reason for Visit * Reason Comments Med Refill Encounter Details Date Type Department Care Team (Late st Contact Info) Description 06/06/[address] [facility] MEDICINE [address] [place] [address] Adelaide Cano DO [address] [place] [address] Social History Tobacco Use Types Packs/Day Years Used Date Smoking Tobacco: Never Smokeless Tobacco: Never Comments Unknown Sex and Gender Information Value Date Recorded Sex Assigned at Female 02/13/2022 10:17 AM EDT Legal Sex Female 10:17 AM EDT Gender Identity Female 02/13/2022 10:17 AM EDT Sexual Orientation Straight 04/26/2023 9 :30 AM EST COVID-19 Exposure Response Date Recorded In the last 10 days, have yo u been in contact with someone who was confirmed or suspected to have Coronavirus/COVID-19? No / Unsure 05/25/2022 10:22 AM EST documented as of this encounter Miscellaneous Notes * Telephone Encounter - Lucie Hope RN - 06/07/2022 9:33 AM EST T/C placed to pt via [place] [employer] Operator Carlos #[id number]. 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 Advised will update provider. documented in this encounter Plan of Treatment Upcoming Encounters Date Type Department Care Team (Late st Contact Info) Description 09/02/2024 10:15 AM EDT Office Visit [facility] MED[facility]INE [address] [place] [address] Ally Ferreira MD [address] [place] [address] [phone] documented as of this encounter Visit Diagnoses Not on filedocumented in this encounter Care Teams Air Export Operations Agent Relationship Specialty Start Date End Date Viri Wall FNP [address] [place] [address] [phone] PCP - General Family Medicine 06/06/22 07/24/22 Ally Ferreira MD [address] [place] [address] [phone] PCP - General Internal Medicine 07/25/22 documented as of this encounter
--- OUTSIDE RECORDS SUMMARY | 2024-06-26 12:35 | XMS_ITS | Encounter Summary ---
Author Organization [employer] Address [address] [facility] 7 [place] [address] Care Team Providers Care Big Data Lead Name Role Phone Ally Ferreira MD Primary Care Pro vider Reason for Visit * Reason Onset Date Comments Referral 05/01/2023 Encounter Details Date Type Department Care Team ([facility] st Contact Info) Description 05/01/2023 Telephone [facility] [address] [place], [place] [phone] Ally Ferreira MD [address] [place] [address] Referral Social History Tobacco Use Types Packs/Day Years [...] encounter Miscellaneous Notes * Telephone Encounter - Jacinta Porras - 05/01/2023 9:07 AM EST Tc from pt calling in regards to podiatry referral. Pt was advised by office, Dr. Casas has retired. documented in this encounter Plan of Treatment Upcoming Encounters Date Type Department Care Team (Late st Contact Info) Description 09/02/2024 10:15 AM EDT Office Visit [facility] [address] [place] [phone] Ally Ferreira MD [address] [place] [address] documented as of this encounter Visit Diagnoses Not on filedocumented in this encounter Additional Health Concerns Assessment Noted Time PHQ-9 Depression Total Score: 0 08/11/19 9:11 AM EDT documented as of this encounter Care Teams Big Data Lead Relationship Specialty Start Date End Date Ally Ferreira MD [address] [place] [phone] PCP - General Internal Medicine 07/25/22 documented as of this encounter
--- OUTSIDE RECORDS SUMMARY | 2024-06-26 12:35 | XMS_ITS | Encounter Summary ---
Author Organization [email or web address] Address [address] [place] [address] [address] [place] [address] Care Team Providers Care Marzipan Maker Name Role Phone Ally Ferreira MD Primary Care Pro vider Reason for Visit * Reason Comments Med Change Request Encounter Details Date Type Department Care Team (Late Contact Info) Description 01/13/2023 Refill [facility] MEDICINE [address] [place] [address] [phone] Ally Ferreira MD [address] [place] [address] [phone] Social History Tobacco Use Types Packs/Day Years [...] AM EST documented as of this encounter Plan of Treatment Upcoming Encounters Date Type Department Care Team (Late Contact Info) Description 09/02/2024 10:15 AM EDT Office Visit [facility] MEDICINE [address] [place] [address] [phone] Ally Ferreira MD [address] [place], [place] [phone] documented as of this encounter Visit Diagnoses Not on filedocumented in this encounter Additional Health Concerns Assessment Noted Time PHQ-9 Depression Total Score: 0 08/11/19 9:11 AM EDT documented as of this encounter Care Teams Marzipan Maker Relationship Specialty Start Date End Date Ally Ferreira MD [address] [place] [id number] PCP - General Internal Medicine 07/25/22 documented as of this encounter
--- OUTSIDE RECORDS SUMMARY | 2024-06-26 12:35 | XMS_ITS | Encounter Summary ---
Author Organization [employer] Address [address] [place] [address] Care Team Providers Care Store Merchandiser Name Role Phone Ally Ferreira MD Primary Care Pro vider Encounter Details Date Type Department Care Team (Late st Contact Info) Description 06/26/2024 Orders Only GENERIC EXTERNAL DATA DEPARTMENT Provider, Generic External Data Social History Tobacco Use Types Packs/Day Years [...] Description 09/02/2024 10:15 AM EDT Office Visit [facility] MED[facility]INE [address] [place] [address] Ally Ferreira MD [address] [place], [place] [phone] documented as of this encounter Procedures Procedure Name Priority Date/Time Associated Diagnosis Comments GLUCOSE, WHOLE BLOOD Routine 06/26/2024 10:22 AM EDT documented in this encounter Results * (ABNORMAL) Glucose, Whole Blood (06/26/2024 10:22 AM EDT) Glucose, Whole Blood 188(H) 60 - 115 mg/dL [facility] Comment:METER #: [id number] Testing performed in the Endocrinology Department [address] , [address], [facility]. 06/26/2024 10:2 2 AM EDT 06/26/2024 10:24 AM EDT us Generic External Data Provider LAB BLOOD ORDERAB LES Final Result [facility] [address] [place] [phone] [phone] documented in this encounter Visit Diagnoses Not on filedocumented in this encounter Additional Health Concerns Assessment Noted Time PHQ-9 Depression Total Score: 0 07/31/19 24 11:09 AM EDT documented as of this encounter Care Teams Store Merchandiser Relationship Specialty Start Date End Date Ally Ferreira MD [address] [place] [phone] PCP - General Internal Medicine 07/25/22 documented as of this encounter
--- OUTSIDE RECORDS SUMMARY | 2024-06-26 12:35 | XMS_ITS | Encounter Summary ---
Author Organization [employer] Address [address] [place] [address] 7 [place] [address] Care Team Providers Care Visual C Developer Name Role Phone Ally Ferreira MD Primary Care Pro vider Reason for Visit * Consultation (Routine) - Authorized Specialty Diagnoses / Procedures Referred By Contac t Referred To Contact Pharmacy Diagnoses Type 1 diabetes mellitus with chronic kidney disease on chronic dialysis (CMS/HCC) Rosy Dawson, ZUHAIR [address] [place] [address] Phone: tel: fax: Referral ID Status Reason Start Date Expiration Date Visits Requested Visits Authorized [id number] Authorized Continuity of Care 05/13/2024 05/13/2025 6 6 Encounter Details Date Type Department Care Team (Latest Contact Info) Description 05/30/2024 11:00 AM EST Telemedicine [facility] [address] [place] [address] Randi Marcelino, IgnacioD [address] [place], [place] [phone] Type 1 diabetes mellitus with chronic kidney disease on chronic dialysis ([facility]/HCC) (Primary Dx); Hypertension, unspecified type; Hyperlipidemia, unspecified hyperlipidemia type Social History Tobacco Use Types Packs/Day [...] AM EST documented as of this encounter Progress Notes * Randi Marcelino PharmD - 05/30/2024 11:00 AM EST Pharmacy Consult Visit Type: MTM Visit Pharmacist: Randi Marcelino PharmD Referral Diagnosis: E10.22,N18.6,Z99.2 (ICD-10-CM) - Type 1 diabetes mellitus with chronic kidney disease on chronic dialysis ([facility]) Referral Expiration: 05/13/2025 Referring Provider: ZUHAIR Galvin Pharmacy Recommendations for Provider: Begin medboxes per patient request. Please contact medbox pharmacist with any medication changes (initiations, discontinuation, dose adjustments). Please consider assessing BP. If BP remains > 140/90 mmHg, can consider initiation of clonidine 0.1 mg twice daily and reassessing BP in 1 week Please consider initiation of atorvastatin 10 mg once daily, followed by FLP + LFT in 4 to 12 weeks 2023 ADA standards of care state it may be reasonable to initiate statin therapy in people with diabetes aged 20-39 years with additional ASCVD risk factors (hyperlipidemia, hypertension, overweight,CKD) Background/ Visit Intake Natali Mtz is a 33 y.o. patient here for a new patient visit. Visit completed over the phone. Allergies: is allergic to chlorhexidine, iodinated contrast media, tramadol, and oxycodone. Preferred Pharmacy: [facility]/pharmacy #[id number] [place] [address] Medbox: No. Assessment & Plan Adherence: History: Medication Reconciliation: Denies use of the following medications that are active in [facility] medlist: Folic acid: patient denies use Amino acid infusion solution: denies use Insulin glargine: reports using Basaglar Kwikpen OTC medication, vitamin, supplement use: denies Adherence: Medication Organization: Takes from vials Reports satisfaction with vials and declines interest in [facility] medbox program Missed doses: Denies missed doses Read/Write: Yes, in Ukrainian Goals of therapy: Improve adherence & minimize missed doses (<2 missed doses/week) Recommendations/Monitoring: Pharmacy updated medlist in [facility] to match patients current medication use Chronic Kidney Disease (stage 5 (eGFR <15)) Pharmacologic Therapy: Sevelamer 800 mg by mouth three times daily Lokelma 10 grams by mouth 2 times per week on nondialysis days Velphoro 500 mg by mouth three times daily History Patient following with transplant (Adam Carrero RN) on 05/16/2024 and is being considered for renal transplantation Labs monitoring: Lab Results Component Value Date EGFR 7 09/06/2023 EGFR 6 (L) 08/11/2022 EGFR 9 07/25/2021 CREATININE 6.66 (HH) 09/06/2023 CREATININE 8.95 (H) 08/11/2022 CREATININE 5.64 (HH) 07/25/2021 CrCl (AdjBW = 11.0 mL/min on 09/06/2023 Goals of Therapy: Ensure safe & appropriate medication use in the setting of declining renal function. Plan: Pharmacist reviewed current medications for renal dose adjustments Pharmacy contacted [facility] pulmonology 2 times (message left with Benji) to recommend a dose reduction of loratadine from 10 mg once daily to 10 mg every 48 hours (prescribed by Maico Zabala MD), recommended per [facility] as the medication is not dialyzable Hyperlipidemia Pharmacologic Therapy: none History: Patient was previously taking atorvastatin, however there is no note as to why it was discontinued Patient reports the medication was discontinued because their cholesterol levels were good and denies MARIO Patient reports that they are open to restarting statin therapy if needed Lab monitoring: Lab Results Component Value Date CHOL 203 (H) 09/06/2023 LDLCHOLCAL 123 (H) 09/06/2023 HDL 29 (L) 09/06/2023 TRIG 256 (H) 09/06/2023 AST 26 09/06/2023 ALT 31 09/06/2023 ALKPHOS 246 (H) 08/11/2022 The ASCVD Risk score (Sami DK, et al., 2019) failed to calculate for the following reasons: The 2019 ASCVD risk score is only valid for ages 40 to 79 Goals of Therapy: ACC/AHA 2018 Cholesterol Guidelines: Ensure evidence based and safe use of medications for primary prevention of ASCVD. Plan: Please consider initiation of atorvastatin 10 mg once daily, followed by FLP + LFT in 4 to 12 weeks 2023 ADA standards of care state it may be reasonable to initiate statin therapy in people with diabetes aged 20-39 years with additional ASCVD risk factors (hyperlipidemia, hypertension, overweight,CKD) Education Pharmacy educated the patient on the importance of HDL and provided guidance on dietary considerations to help increase HDL levels Hypertension: Pharmacologic Therapy: Carvedilol 37.5 mg by mouth twice daily Nifedipine 90 mg by mouth once daily History: Pertinent negatives include chest pain, head ache, blurry vision. Recent Blood Pressure values: BP Readings from Last 4 Encounters: 05/13/24 (!) 169/85 10/23/23 (!) 159/84 07/31/23 110/80 04/26/23 122/70 Pulse Readings from Last 4 Encounters: 05/13/24 88 10/23/23 86 07/31/23 76 04/26/23 81 Lab monitoring Lab Results Component Value Date NA 141 09/06/2023 K 4.4 09/06/2023 CREATININE 6.66 (HH) 09/06/2023 EGFR 7 09/06/2023 Goals of Therapy per JNC 8: Achieve & maintain BP <140/90mmHg Plan: Please consider assessing BP. If BP remains > 140/90 mmHg, can consider initiation of clonidine 0.1 mg twice daily and reassessing BP in 1 week Education: Counseling provided to SMBP Type 1 Diabetes Pharmacologic Therapy: Fiasp Flextouch 100 unit/mL: 4 to 10 units subcutaneously 3 times daily Basaglar Kwikpen 100 unit/mL: 24 units subcutaneously once daily History: Per PCP progress note (10/23/2023) vitamin B12 was elevated as of 08/2023 and cyanocobalamin was reduced from daily to weekly Plan to recheck in 3 months and if B12 remains elevated will discontinue supplementation Patient reports taking vitamin B12 daily Patient follows with [facility] (Elena Centeno RN), last appointment 03/25/2024 Per encounter note, the patient struggles with bolusing prior to meals and entering all carbohydrates into their insulin pump, which has resulted in hypoglycemia Per transplant services note, A1C 8.3% on 05/15/2024 SMBG: Patient reports testing daily. Reports average BG range 150 to 200 mg/dL Lab monitoring: Lab Results Component Value Date K 4.4 09/06/2023 NA 141 09/06/2023 VITB12 >2,000 (H) 09/06/2023 CREATININE 6.66 (HH) 09/06/2023 EGFR 7 09/06/2023 HGBA1C 9.4 (H) 09/06/2023 HGBA1C 10.7 (A) 04/26/2023 HGBA1C 12.3 (A) 01/11/2023 Additional recommendations per ADA: On ACEI/ARB: No On Aspirin: No On Statin: No Dental exam in the past 6 months: unknown Eye Exam in the past 12 months: Yes, 06/19/2023 Goals of therapy: Per the ADA Standards of Medical Care in Diabetes - 2023 Achieve A1c of <7% while also minimizing episodes of hypoBG (<70 mg/dL) Plan: Patient was reminded to complete pending B12. Patient is agreeable to taking vitamin B12 weekly, not daily Patient due for annual Urine microalbumin. Pharmacist ordered via standing order Education: Discussed role of A1c monitoring, A1c and SMBG goals Immunizations History: Immunization History Administered Date(s) Administered DTP 01/23/1994, 09/11/1995 DTaP 01/23/1994, 09/11/1995 DTaP / HiB / IPV 12/22/1992, 02/22/1993, 05/05/1993 HPV, Quadrivalent 01/22/2007, 02/26/2007, 03/31/2008 Hep A, Adult 12/16/2019 Hep B, Adolescent or Pediatric 09/17/1995, 10/24/1995, 07/25/1996, 05/13/2007 Hep B, Unspecified 07/29/2018, 09/27/2018, 04/16/2019 Hep B, adult 09/17/1995, 10/24/1995, 07/25/1996, 05/13/2007 IPV 09/11/1995 Influenza Whole 01/20/2015 Influenza injectable quadrivalent preservative free 01/11/2023 Influenza, IIV3, injectable 04/02/2014, 05/27/2019, 02/08/2024 Influenza, Split (incl. purified surface antigen) 01/08/2012, 01/30/2013 Influenza, Unspecified 01/08/2012, 01/30/2013 MMR 1992, 12/22/1992 Meningococcal ACWY, unspecified 04/26/2007 Meningococcal MCV4P ACYW-135 04/26/2007 Moderna Covid-19 Vaccine 12+ 05/26/2020, 07/09/2020, 03/30/2021 Pfizer Covid-19 Vaccine 12+ 06/12/2023, 05/13/2024 Pfizer Covid-19 Vaccine 12+ Bivalent 01/26/2022 Pneumococcal Conjugate PCV 13 08/02/2018 Pneumococcal Conjugate PCV 20 04/26/2023 Pneumococcal Polysaccharide PPSV23 01/30/2013, 04/16/2013, 08/21/2018 TD (adult), 2 Lf tetanus toxoid, preservative free, adsorbed 12/27/2004 Td (adult), unspecified 12/27/2004 Tdap 01/31/2012, 03/24/2015, 12/16/2019 Varicella 12/27/2004, 07/06/2005 Goals of therapy: Ensure patient is up to date per the CDC Adult Immunization Schedule. Assessment/Plan: Plan: Pharmacist reviewed immunization record and no vaccination gaps exist at this time. Patient Action Plan At this time patient does not have a need to follow-up with the MTM Program. If further medication therapy management is needed, please consider referring patient back. Thank you for your care in this patient. Continue to adhere to medication Monitor blood sugar and blood pressure as directed Receive all recommended vaccinations Complete pending vitamin B12 and urine microalbumin at [facility] lab Attend follow up appointments documented in this encounter Plan of Treatment Upcoming Encounters Date Type Department Care Team (Late st Contact Info) Description 09/02/2024 10:15 AM EDT Office Visit [facility] [address] [place] [address] Ally Ferreira MD [address] [place], [place] [phone] Scheduled Orders Name Type Priority Associated Diagnoses Orde r Schedule Albumin, Random Urine W/Creatinine Lab Routine Type 1 diabetes mellitus with chronic kidney disease on chronic dialysis ([facility]) Expected: 06/10/2024 (Approximate), Expires: 05/29/2025 documented as of this encounter Visit Diagnoses Diagnosis Type 1 diabetes mellitus with chronic kidney disease on chronic dialysis ([facility])- Primary Hypertension, unspecified type Hyperlipidemia, unspecified hyperlipidemia type documented in this encounter Additional Health Concerns Assessment Noted Time PHQ-9 Depression Total Score: 0 07/31/19 24 11:09 AM EDT documented as of this encounter Care Teams Visual C Developer Relationship Specialty Start Date End Date Ally Ferreira MD [address] [place] [address] PCP - General Internal Medicine 07/25/22 documented as of this encounter
--- OUTSIDE RECORDS SUMMARY | 2024-06-26 12:35 | XMS_ITS ---
Author Organization [facility] Address [address] [place] [address] Care Team Providers Care University Manager Name Role Phone Ally Ferreira Primary Care Provider [phone] Transplant Episode Kidney Candidate [facility] ([place], [place]) - [facility] waitlisted on 12/29/2019 Marked as Active on 03/21/2023 Kidney CoordinatorTadwain Velázquez RN Email: N/A Scores Score Value Updated Exceptions/Reas ons CPRA 3 06/23/2024 EPTS (Calc) 35 06/26/2024 [place] Organ Diagnosis Organ Primary Contributory Kidney Diabetes Mellitus - Type I Infection History Noted Survival Infection Treatment Organism Resolved 12/17/2019 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/02/2023 Care Team Name Role Phone Fax Email Sabina Velázquez RN Kidney Coordinator [phone] N/A Vinicio Harris MD Inclusion Internship [phone] [email or web address] [facility] Spinner Operator [phone] [email or web address] Forrest Adamson Referring Physician [phone] N/A Events Pre-Transplant Referred: 06/26/2019 Evaluation began: 12/01/2019 Committee: 12/03/2019 UNOS qualified: 07/15/2018 Center waitlisted: 12/29/2019 Dialysis History Dialysis History Start End Type Comments Center 07/15/2018 In-center Hemodialysis [facility] A [facility] Dialysis Center Information Center Phone Fax Address JOANIE [facility] [phone] [address] [facility] [address] SHANIQUE CONSTANTINO [address]
--- OUTSIDE RECORDS SUMMARY | 2024-06-26 12:35 | XMS_ITS | Encounter Summary ---
Author Organization [employer] Address [address] [place] [address] Care Team Providers Care Tire Finisher Name Role Phone Viri Wall Primary Care Provider [phone] Ally Ferreira MD Primary Care Pro vider Reason for Visit * Reason Comments Med Refill Encounter Details Date Type Department Care Team (Late st Contact Info) Description 06/06/2022 Refill [facility] [address] [place], [place] [phone] Name, MD Dain [address] [place] [address] Primary hypertension (Primary Dx) Social History Tobacco Use Types Packs/Day Years [...] encounter Miscellaneous Notes * Telephone Encounter - LIZZETH Aguillon - 06/06/2022 3:38 PM EST Approving, but needs appt for additional refills. documented in this encounter Plan of Treatment Upcoming Encounters Date Type Department Care Team (Late st Contact Info) Description 09/02/2024 10:15 AM EDT Office Visit [facility] [address] [place] [address] Ally Ferreira MD [address] [place], [place] [phone] documented as of this encounter Visit Diagnoses Diagnosis Primary hypertension- Primary Unspecified essential hypertension documented in this encounter Care Teams Tire Finisher Relationship Specialty Start Date End Date Viri Wall FNP [address] [place] [address] [phone] PCP - General Family Medicine 06/06/22 07/24/22 Ally Ferreira MD [address] [place] [address] [phone] PCP - General Internal Medicine 07/25/22 documented as of this encounter
--- OUTSIDE RECORDS SUMMARY | 2024-06-26 12:35 | XMS_ITS | Encounter Summary ---
Author Organization [facility] Address [address] [place] [address] Care Team Providers Care Fiberglass Roller Name Role Phone Ally Ferreira Primary Care Provider [phone] Encounter Details Date Type Department Care Team (Late st Contact Info) Description 02/22/2024 Orders Only [facility] Nuclear Medicine [address] [place] [address] Victor Manuel Corado MD PhD [address] [place], [place] [phone] Social History Tobacco Use Types Packs/Day Years [...] Description 01/27/2025 11:00 AM EDT Social Work [facility] Renal Transplant [address] [place] [address] Chani Vargas LICSW [address] [place] [address] 02/24/2025 10:20 AM EST Follow-Up [facility] Renal Transplant [address] [place] [address] Vinicio Harris MD [address] [place] [address] documented as of this encounter Visit Diagnoses Not on filedocumented in this encounter Care Teams Fiberglass Roller Relationship Specialty Start Date End Date Ally Ferreira [address] [place] [address] PCP - General 02/04/24 documented as of this encounter
--- OUTSIDE RECORDS SUMMARY | 2024-06-26 12:35 | XMS_ITS | Encounter Summary ---
Author Organization [facility] Address [address] [place] [address] Care Team Providers Care Acute Care Registered Nurse Name Role Phone Ally Ferreira Primary Care Provider [phone] Encounter Details Date Type Department Care Team (Late st Contact Info) Description 01/11/2021 Orders Only [facility] Nuclear Medicine [address] [place] [address] Shiva Duran MD [address] [place] [address] Social History Tobacco Use Types Packs/Day Years [...] Description 01/27/2025 11:00 AM EDT Social Work [facility] Renal Transplant [address] [place] [address] Chani Vargas LICSW [address] [place] [address] 02/24/2025 10:20 AM EST Follow-Up [facility] Renal Transplant [address] [place] [address] Vinicio Harris MD [address] [place] [address] documented as of this encounter Visit Diagnoses Not on filedocumented in this encounter Care Teams Acute Care Registered Nurse Relationship Specialty Start Date End Date Ally Ferreira [address] [place] [address] PCP - General 02/04/24 documented as of this encounter
--- OUTSIDE RECORDS SUMMARY | 2024-06-26 12:35 | XMS_ITS | Encounter Summary ---
Author Organization [facility] Address [address] [place] [phone] Phone Care Team Providers Care Oracle Erp Architect Name Role Phone Azucena Bradley MD Primary Care Provider [phone] Encounter Details Date Type Department Care Team (Late st Contact Info) Description 05/28/2024 Treatment [facility] [address] [phone] Edwina Min MD [address] [address] Social History Tobacco Use Types [...] Dialysis Note - Edwina Min MD - 05/28/2024 12:00 AM EST Patient: Natali Mtz : 1990 Note Type: Dialysis Rounds-Comp Service Date: 05/28/2024 This patient was personally seen for a complete visit as part of routine monthly dialysis care for end stage renal disease. Attending Tactical Air Defense Controller: EDWINA MIN MD Dialysis Location: [facility] Schedule: Shift: 2 ADEQUACY ASSESSMENT Kt/V, [...] by: EDWINA MIN MD on 05/29/2024 at 06:04:29 AM documented in this encounter Plan of Treatment Not on file documented as of this encounter Visit Diagnoses Not on filedocumented in this encounter Care Teams Oracle Erp Architect Relationship Specialty Start Date End Date Azucena Bradley MD [address] [place] [address], Floor [address] [place] [address] PCP - General Internal Medicine 01/22/24 documented as of this encounter
--- OUTSIDE RECORDS SUMMARY | 2024-06-26 12:35 | XMS_ITS | Encounter Summary ---
Author Organization [employer] Address [address] [place] [address] 7 [place] [address] Care Team Providers Care Clinical Staff Rn Name Role Phone Ally Ferreira MD Primary Care Pro vider Reason for Visit * Reason Comments Med Refill Encounter Details Date Type Department Care Team (Late Contact Info) Description 09/02/2022 Refill [facility] [address] [place], [place] [phone] Ally Ferreira MD [address] [place] [address] Social History Tobacco Use Types Packs/Day Years [...] Description 09/02/2024 10:15 AM EDT Office Visit [facility] [address] [place] [address] Ally Ferreira MD [address] [place] [address] documented as of this encounter Visit Diagnoses Not on filedocumented in this encounter Additional Health Concerns Assessment Noted Time PHQ-9 Depression Total Score: 0 08/11/19 9:11 AM EDT documented as of this encounter Care Teams Clinical Staff Rn Relationship Specialty Start Date End Date Ally Ferreira MD [address] [place] [address] PCP - General Internal Medicine 07/25/22 documented as of this encounter
--- OUTSIDE RECORDS SUMMARY | 2024-06-26 12:35 | XMS_ITS | Encounter Summary ---
Author Organization [facility] Address [address] [place] [address] Care Team Providers Care Behavior Specialist Name Role Phone Ally Ferreira Primary Care Provider [phone] Encounter Details Date Type Department Care Team (Late st Contact Info) Description 05/07/2023 Orders Only [facility] Nuclear Medicine [address] [place] [address] Shiva Duran MD [address] [place] [address] Social History Tobacco Use Types Packs/Day Years Used Date Smoking Tobacco: Never Passive Smoke Exposure: Never Comments Unknown Sex and Gender Information [...] Description 01/27/2025 11:00 AM EDT Social Work [facility] Renal Transplant [address] [place] [address] Chani Vagras LICSW [address] [place] [address] 02/24/2025 10:20 AM EST Follow-Up [facility] Renal Transplant [address] [place] [address] Vinicio Harris MD [address] [place] [address] documented as of this encounter Visit Diagnoses Not on filedocumented in this encounter Care Teams Behavior Specialist Relationship Specialty Start Date End Date Ally Ferreira [address] [place] [address] PCP - General 02/04/24 documented as of this encounter
--- OUTSIDE RECORDS SUMMARY | 2024-06-26 12:35 | XMS_ITS | Encounter Summary ---
Author Organization [facility] Address [address] [place] [address] Care Team Providers Care Safety Instructor Name Role Phone Ally Ferreira Primary Care Provider [phone] Encounter Details Date Type Department Care Team (Late Contact Info) Description 06/20/2024 Telephone [facility] Transplant Department [address] [place], [place] [phone] Sabina Velázquez RN [address] [place], [place] [phone] Social History Tobacco Use Types Packs/Day Years [...] PM EST documented as of this encounter Miscellaneous Notes * Telephone Encounter - Sabina Velázquez RN - 06/20/2024 4:05 PM EST Called [facility] to follow up on delinquent Monthly Sample for transplant and [facility]. Detailed message left with request to draw the sample as soon as possible if it has notbeen drawn. One time order placed documented in this encounter Plan of Treatment Upcoming Encounters Date Type Department Care Team (Late st Contact Info) Description 01/27/2025 11:00 AM EDT Social Work [facility] Renal Transplant [address] [place] [address] Chani Vargas LICSW [address] [place] [address] 02/24/2025 10:20 AM EST Follow-Up [facility] Renal Transplant [address] [place] [address] Vinicio Harris MD [address] [place] [address] documented as of this encounter Visit Diagnoses Not on filedocumented in this encounter Care Teams Safety Instructor Relationship Specialty Start Date End Date Ally Ferreira [address] [place] [address] PCP - General 02/04/24 documented as of this encounter
--- OUTSIDE RECORDS SUMMARY | 2024-06-26 12:35 | XMS_ITS | Clinical Summary ---
Author Organization [facility] Address [address] [place] [address] Care Team Providers Care Sales Administration Specialist Name Role Phone Ally Ferreira Primary Care Provider [phone] Allergies Active Allergy Reactions Criticality Noted Date [...] 1 each 3 3 Active Dexcom G6 Integrated Campaign Manager misc Use as directed. E10.65 1 [...] associa hannah with type 1 diabetes mellitus ([facility]) 03/02/2023 PAD (peripheral artery disease) 02/27/2023 Assessment [...] Acute osteomyelitis of left foot 12/17/2019 03/02/2023 Encounters Date Type Department Care Team Description 06/20/2024 Orders Only [facility] Transplant Department [address] [place] [address] Sabina Velázquez, RN ESRD (end stage renal disease) (HCC) (Primary Dx); Pre-transplant evaluation for kidney transplant 06/20/2024 Telephone [facility] Transplant Department [address] [place] [address] Sabina Velázquez, RN 04/03/2024 Orders Only [facility] Transplant Department [address] [place] [address] Sabina Velázquez, RN Pre-transplant evaluation for kidney transplant (Primary Dx); ESRD (end stage renal disease) (HCC) from Last 3 Months Immunizations Immunization Administration Dates Next Due Covid-19 Monovalent Vaccine, Moderna, mRNA, PF 07/09/2020,05/26/2020 [id number] 05/05/1993,02/22/1993,12/22/1992 Diphtheria, Tetanus Toxoids and Acellular Pertussis [...] Diphtheria Toxoid) 12/27/2004 Varicella Virus Vaccine 07/06/2005,12/27/2004 Family History Medical History Relation Name Comments Diabetes type I Father Relation Name Status Comments Father Social History Tobacco Use Types Packs/Day Years [...] Description 01/27/2025 11:00 AM EDT Social Work [facility] Renal Transplant [address] [place] [address] Chani Vargas LICSW [address] [place] [address] 02/24/2025 10:20 AM EST Follow-Up [facility] Renal Transplant [address] [place] [address] Vinicio Harris MD [address] [place] [address] Health Maintenance Due Date Last Done Comments HPV and Pap Smear 1991 Medicare AWV 09/09/1992 Ophthalmology Exam 09/09/2001 Alcohol/Substance Use Screening 04/16/2024 Depression Screening and Follow-Up 04/16/2024 Social Drivers of Health Kalie ual Screening 04/16/2024 Hemoglobin A1C 07/22/2024 04/23/2024, 02/14, 01/11/2023, Additional history exists Basic Metabolic Panel 09/05/2024 09/06/2023 , 11/21/2022, 04/06/2022, Additional history exists Cervical Cancer Screening 05/17/2026 Pap Smear 05/17/2026 05/17/2023 DTaP,Tdap,and Td Vaccines (9 - Td or Tdap) 12/15/2029 12/16/2019, 03/24/2015, 01/31/2012, Additional history exists Pneumococcal Vaccine: Pediat lucero (0-5 Years) and At-Risk Patients (6-50 Years) (3 of 3 - PCV20 or PCV21) 09/09/2041 04/26/2023, 08/21/2018, 08/02/2018, Additional history exists RSV Vaccine (60+ years old a nd patients) (1 - 1-dose 75+ series) 09/09/2066 Varicella Vaccines Completed 07/06/2005, 12/27/2004 Hepatitis B Vaccines Completed 04/16/2019, 09/27/2018, 07/29/2018, Additional history exists HIV Screening Completed 09/06/2023, 11/14, 12/01/2019 Hepatitis C Screening Completed 09/06/2023 , 10/13/2021, 11/30/2020, Additional history exists Influenza Vaccine Completed 02/08/2024, , 05/27/2019, Additional history exists COVID-19 Vaccine Completed 05/13/2024, , 01/26/2022, Additional history exists Procedures * Due to [place] state law, this organization might not be sharing negative HIV tests. Procedure Name Priority Date/Time Associated Diagnosis Comments HLA MONTHLY ANTIBODY IDENTIFICATION - CLASS I Routine 05/21/2024 1:23 PM EST Pre-transplant evaluation for kidney transplant ESRD (end stage renal disease) ([facility]) HLA MONTHYLY ANTIBODY IDENTIFICATION - CLASS II Routine 05/21/2024 1:23 PM EST Pre-transplant evaluation for kidney transplant ESRD (end stage renal disease) ([facility]) HLA MONTHYLY ANTIBODY IDENTIFICATION - CLASS II Routine 04/15/2024 11:01 AM EST Pre-transplant evaluation for kidney transplant ESRD (end stage renal disease) ([facility]) HLA MONTHLY ANTIBODY IDENTIFICATION - CLASS I Routine 04/15/2024 11:01 AM EST Pre-transplant evaluation for kidney transplant ESRD (end stage renal disease) ([facility]) POCT GLYCOSYLATED HEMOGLOBIN (HGB A1C) Routine 02/27/2023 1:05 PM EST BASIC METABOLIC PANEL, OUTSIDE LAB Routine 11/21/2022 HEPATITIS C ANTIBODY W/REFLEX TO HCV RNA, QUANTITATIVE PCR Routine 11/30/2020 11:09 AM EDT ESRD (end stage renal disease) on dialysis (CMS/HCC) (HCC) Pre-transplant evaluation for kidney transplant from Last 3 Months or Most Recently Relevant to Health Maintenance Results * Due to [place] state law, this organization might not be sharing negative HIV tests. * (ABNORMAL) POCT Glycosylated Hemoglobin (HGB A1C), interfaced (02/27/2023 1:05 PM EST) Hemoglobin A1C, POCT 10.6(H) <=5.6 % 02/27/2023 1:20 PM EST [facility] Comment: A1C Recommendation for Non- Adults with Diabetes: <7.0% ADA 2011 Standards of Medical Care in Diabetes Blood 02/27/2023 1:05 PM EST 02/27/2023 1:20 PM EST Robert Meredith MD LAB POCT ORDERABLES - DEVICE Final Result [facility], [facility] [address] [place] [address], * (ABNORMAL) Basic Metabolic Panel, Outside Lab [...] NON-REACT JOSE RAFAEL 12/01/2020 8:37 AM EDT [employer] Signal To Cut-Off 0.02 <1.00 12/01/2020 8:37 AM EDT [employer] Comment: HCV antibody was non-reactive. There is no laboratory evidence of HCV infection. In most cases, no further action is required. However, if recent HCV exposure is suspected, a test for HCV RNA (test code 45373) is suggested. For additional information please refer to http://education.[employer]vestigo/faq/NIH94i2 (This link is being provided for informational/ educational purposes only.) Blood Structure of peripheral vein / Unknown Venipuncture / Unknown 11/30/2020 11:09 AM EDT 11/30/2020 11:33 AM EDT Narrative [facility] - 12/01/2020 8:37 AM EDT [facility] Received Date: Stefan Robbins MD LAB BLOOD ORDERABLES Final Result [facility] [address], [place] [address], [employer] [facility] [address], [place] [address], from Last 3 Months or Most Recently Relevant to Health Maintenance Insurance MEDICARE [facility] MEDICARE [facility] Advance Directives Documents on File Type Date Recorded Patient Maintenance Services Dispatcher Expl anation Health Care Proxy 01/26/2023 10:42 AM 01/18/23 Health Care Proxy 12/11/2019 8:18 AM 11/30 Care Teams Sales Administration Specialist Relationship Specialty Start Date End Date Ally Ferreira [address] [place] [address] [phone] PCP - General 02/04/24
--- OUTSIDE RECORDS SUMMARY | 2024-06-26 12:35 | XMS_ITS | Encounter Summary ---
Author Organization [employer] Address [address] [place] [address] Care Team Providers Care Warehouse Technician Name Role Phone Ally Ferreira MD Primary Care Pro vider Reason for Visit * Reason Onset Date Comments New Med Request 06/03/2024 Encounter Details Date Type Department Care Team (Late st Contact Info) Description 06/03/2024 Refill [facility] [address] [place], [place] [phone] Ally Ferreira MD [address] [place] [address] Social History Tobacco Use Types Packs/Day Years [...] encounter Miscellaneous Notes * Telephone Encounter - Candy Brito RN - 06/03/2024 1:25 PM EST TC placed to pt who is requesting a refill on the pregabalin (Lyrica) 25 MG capsules. This medication was prescribed by [facility] during recent hospital stay from 03/31-04/01. 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 The pt does confirm that this medication has been helping her symptoms and ADL's have been much easier. This is documented under [facility] appt the pt had with Rosy Dawson on 05/13/2024. Pt has never been prescribed this by a [facility] provider and Rosy Dawson and Dr. Perry are outof the office. Will send this to covering provider for review. * Telephone Encounter - Jessica Concepcion - 06/03/2024 11:40 AM EST Tc from pt requesting medication pregabalin (Lyrica) 25 MG capsule as she has taken it before and will like to keep taking medication as it helps her out pt indicate. documented in this encounter Plan of Treatment Upcoming Encounters Date Type Department Care Team (Late st Contact Info) Description 09/02/2024 10:15 AM EDT Office Visit [facility] [address] [place] [phone] Ally Ferreira MD [address] [place] [address] documented as of this encounter Visit Diagnoses Not on filedocumented in this encounter Additional Health Concerns Assessment Noted Time PHQ-9 Depression Total Score: 0 07/31/19 24 11:09 AM EDT documented as of this encounter Care Teams Warehouse Technician Relationship Specialty Start Date End Date Ally Ferreira MD [address] [place], [place] [phone] PCP - General Internal Medicine 07/25/22 documented as of this encounter
--- OUTSIDE RECORDS SUMMARY | 2024-06-26 12:36 | XMS_ITS | Clinical Summary ---
Author Organization [facility] Address [address] [place] [phone] Phone Care Team Providers Care Mathematics Professor Name Role Phone Azucena Bradley MD Primary Care Provider [phone] Medications losartan (COZAAR) 50 MG tablet TAKE 1 TABLET BY MOUTH TWICE A DAY 60 tablet 3 1 Active lactulose (CHRONULAC) 10 GM/15ML solution TAKE 30 ML BY MOUTH ONCE A DAY 946 mL 3 1 Active NIFEdipine XL (PROCARDIA XL) 30 MG 24 hr tablet TAKE 1 TABLET BY MOUTH EVERY DAY 30 tablet 1 2 Active valACYclovir (VALTREX) 500 MG tablet Take 1 tablet by mouth 1 (one) time Active NIFEdipine XL (Procardia XL) 90 MG 24 hr tablet Take 1 tablet by mouth in the morning and 1 tablet in the evening. 1 Active losartan (COZAAR) 100 MG tablet TAKE 1 TABLET BY MOUTH TWICE A DAY 1 Active losartan (COZAAR) 25 MG tablet Take 1 tablet by mouth in the morning and 1 tablet in the evening. 0 Active levETIRAcetam (KEPPRA) 750 MG tablet Take 1 tablet by mouth 0 Active insulin lispro (HumaLOG) 100 UNIT/ML injection Comments: Filled Date: Mar 21 2019 12:00AM Patient Notes: sliding scale diabetes mellitus Duration: 28 9 Active Insulin Lispro (HumaLOG) 100 UNIT/ML solution See Instructions, Subcutaneous Injection 3 times a day before meals per sliding scale, 2-6 units 100-159: 2 units 160-219: 3 units 220-279: 4 units 280-339: 5 units 340-400: 6 units Call provider if sugar is higher, # 10 mL, 11 Refills, Maintena... 0 Active insulin glargine (Lantus) 100 UNIT/ML injection Inject 12 Units under the skin at bed time 9 Active hydrALAZINE 25 MG tablet Take 50 mg by mouth 2 Active escitalopram (LEXAPRO) 5 MG tablet Take 5 mg by mouth 2 Active Docusate Sodium (DSS) 100 MG capsule Take 100 mg by mouth 9 Active Multiple Vitamins-Iron (DAILY-JULIUS/IRO N/BETA-CAROTENE PO) Take 1 tablet by mouth 9 Active Nutritional Supplements (Boost Glucose Control) liquid Take 237 mL by mouth 1 (one) time each day 7110 mL 11 2 Active hydrOXYzine (ATARAX) 10 MG tablet TAKE 1 TABLET BY MOUTH THREE TIMES A DAY 270 tablet 1 3 Active hydrALAZINE 100 MG tablet TAKE 1 TABLET BY MOUTH IN THE MORNING AND 1 TABLET IN THE EVENING AND 1 TABLET BEFORE BEDTIME. DO ALL THIS FOR 90 DOSES. 270 tablet 1 3 Active Multiple Vitamin (Daily-Julius Multivitamin) tablet TAKE 1 TABLET BY MOUTH EVERY DAY 90 tablet 3 3 Active losartan (COZAAR) 100 MG tablet TAKE 1 TABLET BY MOUTH TWICE A DAY 180 tablet 3 3 Active LORazepam (ATIVAN) 0.5 MG tablet TAKE 1 TABLET BY MOUTH EVERY DAY NEEDED 15 tablet 4 Active Encounters Date Type Department Care Team Description 06/18/2024 Treatment [facility] [address] [phone] Atul Burton MD End stage renal disease; Dependence on renal dialysis 06/13/2024 Treatment [facility] [address] [phone] Atul Burton MD End stage renal disease; Dependence on renal dialysis 05/28/2024 Treatment [facility] [address] [phone] Atul Burton MD 05/26/2024 Treatment [facility] [address] [phone] Atul Burton MD 05/21/2024 Orders Only [facility] [address] [phone] Atul Burton MD 05/19/2024 Treatment [facility] [address] [phone] Atul Burton MD 05/16/2024 Treatment [facility] [address] [phone] Atul Burton MD 05/14/2024 Treatment [facility] [address] [phone] Atul Burton MD 05/07/2024 Treatment [facility] [address] [phone] Atul Burton MD 04/18/2024 Treatment [facility] [address] [phone] Atul Burton MD 04/15/2024 Treatment [facility] [address] [phone] Atul Burton MD 04/08/2024 Treatment [facility] [address] [phone] Atul Burton MD from Last 3 Months Family History Medical History Relation Comments Diabetes Father Relation Status Comments Father Alive Mother Alive Social History Tobacco Use Types Packs/Day Years Used Date Smoking Tobacco: Never Alcohol Use Standard Drinks/Week Comments No 0 (1 standard drink = 0.6 oz pur e alcohol) Comments Unknown Sex and Gender Information Value Date Recorded Sex Assigned at Not on file Legal Sex Female 5:10 PM EST Gender Identity Not on file Sexual Orientation Not on file Last Filed Vital Signs Vital Sign Reading Time Taken Comments Blood Pressure 130/80 07/10/2018 12:01 PM EDT Pulse 88 07/10/2018 12:01 PM EDT Temperature - - Respiratory Rate - - Oxygen Saturation - - Inhaled Oxygen Concentration - - Weight 67.6 kg (149 lb) 07/10/2018 12:01 PM EDT Height 154.9 cm (5' 1 ) 07/10/2018 12:01 PM EDT Body Mass Index 28.15 07/10/2018 12:01 PM EDT Plan of Treatment Health Maintenance Due Date Last Done Comments Hepatitis B Vaccine (5 of 5 - Risk Dialysis 4-dose series) 04/16/2020 04/16/2019, 09/27/2018, 07/29/2018, Additional history exists Diabetes: Ophthalmology Exam 05/17/2020 Diabetes: Pedal Pulse Checked 05/17/2020 Diabetes: Sensory Foot Exam 05/17/2020 Diabetes: Visual Foot Exam 05/17/2020 Influenza Vaccine (#1) 2023 3, 01/20/2015, 01/30/2013, Additional history exists Diabetes: Hemoglobin A1C 07/22/2024 025, 09/06/2023, 02/27/2023, Additional history exists Pneumococcal Vaccine: Pediat rics (0 to 5 Years) and At-Risk Patients (6 to 64 Years) Completed 04/26/2023, 08/21/2018, 08/02/2018, Additional history exists Procedures Procedure Name Priority Date/Time Associated Diagnosis Comments TRANSFERRIN SATURATION Routine 3:00 AM EST PROTEIN, TOTAL, SERUM Routine 06/18/2024 3:00 AM EST LIH (HC) Routine 06/18/2024 3:00 AM EST MAGNESIUM Routine 06/18/2024 3:00 AM EST ELECTROLYTE PANEL Routine 06/18/2024 3:0 0 AM EST GLUCOSE, RANDOM Routine 06/18/2024 3:00 AM EST LACTATE DEHYDROGENASE Routine 06/18/2024 3:00 AM EST CREATININE, SERUM Routine 06/18/2024 3:0 0 AM EST AST Routine 06/18/2024 3:00 AM EST ALT Routine 06/18/2024 3:00 AM EST ALKALINE PHOSPHATASE Routine 06/18/2024 3:00 AM EST BILIRUBIN, TOTAL Routine 06/18/2024 3:00 AM EST CALCIUM PHOSPHORUS PRODUCT, ADJUSTED (HC) Routine 06/18/2024 3:00 AM EST FERRITIN Routine 06/18/2024 3:00 AM EST CBC AND DIFFERENTIAL Routine 06/18/2024 3:00 AM EST KT/V NATURAL LOG, URR (HC) Routine 06/18/2024 3:00 AM EST HEMOGLOBIN Routine 06/09/2024 3:00 AM EST PHOSPHATE ( PHOSPHORUS) Routine 06/04/2024 3:00 AM EST LIH (HC) Routine 06/04/2024 3:00 AM EST HEMOGLOBIN Routine 06/04/2024 3:00 AM EST TRANSFERRIN SATURATION Routine 3:00 AM EST MAGNESIUM Routine 05/21/2024 3:00 AM EST PROTEIN, TOTAL, SERUM Routine 05/21/2024 3:00 AM EST ELECTROLYTE PANEL Routine 05/21/2024 3:0 0 AM EST LACTATE DEHYDROGENASE Routine 05/21/2024 3:00 AM EST LIH (HC) Routine 05/21/2024 3:00 AM EST GLUCOSE, RANDOM Routine 05/21/2024 3:00 AM EST CREATININE, SERUM Routine 05/21/2024 3:0 0 AM EST AST Routine 05/21/2024 3:00 AM EST BILIRUBIN, TOTAL Routine 05/21/2024 3:00 AM EST ALKALINE PHOSPHATASE Routine 05/21/2024 3:00 AM EST ALT Routine 05/21/2024 3:00 AM EST CALCIUM PHOSPHORUS PRODUCT, ADJUSTED (HC) Routine 05/21/2024 3:00 AM EST FERRITIN Routine 05/21/2024 3:00 AM EST KT/V NATURAL LOG, URR (HC) Routine 05/21/2024 3:00 AM EST CBC AND DIFFERENTIAL Routine 05/21/2024 3:00 AM EST PHOSPHATE ( PHOSPHORUS) Routine 05/07/2024 3:00 AM EST LIH (HC) Routine 05/07/2024 3:00 AM EST HEMOGLOBIN Routine 05/07/2024 3:00 AM EST ALUMINUM LEVEL Routine 04/23/2024 3:00 AM EST HEPATITIS B SURFACE ANTIGEN W/REFL CONFIRM Routine 04/23/2024 3:00 AM EST HEPATITIS C ABS W/REFLEX RNA DETECTR Routine 04/23/2024 3:00 AM EST CONFIRMATION TEST HCV Routine 04/23/2024 3:00 AM EST FERRITIN Routine 04/23/2024 3:00 AM EST HEPATITIS B SURFACE ANTIBODY QUANT Routine 04/23/2024 3:00 AM EST PTH, INTACT Routine 04/23/2024 3:00 AM EST PROTEIN, TOTAL, SERUM Routine 04/23/2024 3:00 AM EST URIC ACID Routine 04/23/2024 3:00 AM EST TRANSFERRIN SATURATION Routine 3:00 AM EST MAGNESIUM Routine 04/23/2024 3:00 AM EST ELECTROLYTE PANEL Routine 04/23/2024 3:0 0 AM EST LIPID PANEL Routine 04/23/2024 3:00 AM EST LIH (HC) Routine 04/23/2024 3:00 AM EST LACTATE DEHYDROGENASE Routine 04/23/2024 3:00 AM EST GLUCOSE, RANDOM Routine 04/23/2024 3:00 AM EST BILIRUBIN, TOTAL Routine 04/23/2024 3:00 AM EST CREATININE, SERUM Routine 04/23/2024 3:0 0 AM EST AST Routine 04/23/2024 3:00 AM EST ALT Routine 04/23/2024 3:00 AM EST CALCIUM PHOSPHORUS PRODUCT, ADJUSTED (HC) Routine 04/23/2024 3:00 AM EST ALKALINE PHOSPHATASE Routine 04/23/2024 3:00 AM EST KT/V NATURAL LOG, URR (HC) Routine 04/23/2024 3:00 AM EST HEMOGLOBIN A1C Routine 04/23/2024 3:00 AM EST CBC AND DIFFERENTIAL Routine 04/23/2024 3:00 AM EST LIH (HC) Routine 04/02/2024 3:00 AM EST PHOSPHATE ( PHOSPHORUS) Routine 04/02/2024 3:00 AM EST HEMOGLOBIN Routine 04/02/2024 3:00 AM EST from Last 3 Months Results * LIH (06/18/2024 3:00 AM EST) Only the most recent of6 resultswithin the time period is included. Lipemia Normal Normal [facility] Icterus Normal Normal [facility] Hemolysis Normal Normal [facility] 06/18/2024 3:00 AM EST 06/19/2024 2:53 PM EST us Atul Burton MD LAB [id number] SOLICITED RESULTS Final Result [facility] [address] [place] [address] * (ABNORMAL) Kt/V Natural Log, URR (06/18/2024 3:00 AM EST) Only the most recent of3 resultswithin the time period is included. Treatment Time 207 min [facility] Pre-Weight, lb 72.8 kg [facility] Post-Weight, lb 69.1 kg [facility] Ultrafiltration Rate 16(H) <=13 mL/kg/hr [facility] Comment: Recommend achieving Ultrafiltration Rate (UFR) <=10 mL/kg/hr References: Naomy BRITO et al. Kidney Int. 2010; 79(2):250-257 BUN 50(H) 7 - 25 mg/dL [facility] BUN Post Dialysis 14 7 - 25 mg/dL [facility] UREA REDUCTION RATIO (%) 72 >=65 % [facility] Kt/V Natural Log 1.54 >=1.2 [facility] 06/18/2024 3:00 AM EST 06/19/2024 2:50 PM EST Atul Burton MD LAB [id number] SOLICITED RESULTS Final Result Performing Organization Address [facility] [place] Co de Phone Number [facility] [address] [place] [address] * (ABNORMAL) Calcium Phosphorus Product, Adjusted (06/18/2024 3:00 AM EST) Only the most recent of3 resultswithin the time period is included. Albumin 4.2 3.6 - 5.4 g/dL [facility] Calcium 10.1 8.6 - 10.3 mg/dL [facility] Phosphorus, Serum 6.7(H) 2.5 - 5.0 mg/dL [facility] Ca*PO4 67.7(A) <55.0 mg2/dL2 [facility] Calcium, Adjusted Total 10.1 8.6 - 10.3 mg/dL [facility] CA*PO4 CORRCTD 67.7(A) <55.0 mg2/dL2 [facility] 06/18/2024 3:00 AM EST 06/19/2024 2:53 PM EST Atul Burton MD LAB [id number] SOLICITED RESULTS Final Result Performing Organization Address [facility] [place] de Phone Number [facility] [address] [place] [address] * (ABNORMAL) TSAT (06/18/2024 3:00 AM EST) Only the most recent of3 resultswithin the time period is included. Iron 47(L) 50 - 170 ug/dL [facility] Transferrin 112(L) 250 - 380 mg/dL [facility] TIBC 157(L) 211 - 406 ug/dL [facility] Iron Saturation (TSat) 30 22 - 52 % [facility] 06/18/2024 3:00 AM EST 06/19/2024 2:53 PM EST Atul Burton MD LAB BLOOD ORDERABLES Final Re sult Performing Organization Address City/[facility] Co de Phone Number [facility] [address] [place] [address] * (ABNORMAL) CBC and Differential (06/18/2024 3:00 AM EST) Only the most recent of3 resultswithin the time period is included. DIFFERENTIAL MANUAL, 2 Not Indicated [facility] White Blood Cells 13.6(H) 4.0 - 10.0 K/uL [facility] RBC 2.81(L) 3.93 - 5.22 M/uL [facility] Hgb 8.4(L) 11.2 - 15.7 g/dL [facility] Hemoglobin x 3 25.2(L) 33.6 - 47.1 g/dL [facility] Hematocrit 26.1(L) 34.1 - 44.9 % [facility] MCV 92.9 79.4 - 94.8 fL [facility] MCH 29.9 25.6 - 32.2 pg [facility] MCHC 32.2 32.2 - 35.5 g/dL [facility] Platelets 325 182 - 369 K/uL [facility] RDW 16.6(H) 11.7 - 14.4 % [facility] Neutrophils Relative 72.7(H) 34.0 - 71.1 % [facility] Lymphocytes Relative 14.6(L) 19.3 - 51.7 % [facility] Monocytes 6.0 4.7 - 12.5 % [facility] Eosinophils Relative 5.3 0.7 - 5.8 % [facility] Basophils Relative 0.8 0.1 - 1.2 % [facility] Immature Granulocytes 0.6 0.0 - 1.0 % [facility] 06/18/2024 3:00 AM EST 06/19/2024 3:27 PM EST Atul Burton MD LAB BLOOD ORDERABLES Final Re sult Performing Organization Address City/[facility]/ZIP Co de Phone Number [facility] [address] [place] [address] * ALT (06/18/2024 3:00 AM EST) Only the most recent of3 resultswithin the time period is included. ALT (SGPT) 18 10 - 49 U/L [facility] 06/18/2024 3:00 AM EST 06/19/2024 2:53 PM EST Atul Burton MD LAB BLOOD ORDERABLES Final Re sult Performing Organization Address [facility] [place] Co de Phone Number [facility] [address] [place] [address] * AST (06/18/2024 3:00 AM EST) Only the most recent of3 resultswithin the time period is included. AST (SGOT) 15 <34 U/L [facility] 06/18/2024 3:00 AM EST 06/19/2024 2:53 PM EST Atul Burton MD LAB BLOOD ORDERABLES Final Re sult Performing Organization Address [facility] [place]/[facility] Co de Phone Number [facility] [address] [address] * Protein, total (06/18/2024 3:00 AM EST) Only the most recent of3 resultswithin the time period is included. Total Protein 7.6 6.4 - 8.9 g/dL [facility] 06/18/2024 3:00 AM EST 06/19/2024 2:53 PM EST Atul Burton MD LAB BLOOD ORDERABLES Final Re sult Performing Organization Address [facility] [place] Co de Phone Number [facility] [address] [address] * Alkaline phosphatase (06/18/2024 3:00 AM EST) Only the most recent of3 resultswithin the time period is included. Alkaline Phosphatase 111 46 - 116 U/L [facility] 06/18/2024 3:00 AM EST 06/19/2024 2:53 PM EST us Atul Burton MD LAB BLOOD ORDERABLES Final Re sult Performing Organization Address [facility] [place] Co de Phone Number [facility] [address] [place] [address] * Magnesium (06/18/2024 3:00 AM EST) Only the most recent of3 resultswithin the time period is included. Magnesium 2.4 1.9 - 2.7 mg/dL [facility] 06/18/2024 3:00 AM EST 06/19/2024 2:53 PM EST us Atul Burton MD LAB BLOOD ORDERABLES Final Re sult Performing Organization Address [facility] de Phone Number [facility] [address] [place] [address] * (ABNORMAL) Lactate dehydrogenase (06/18/2024 3:00 AM EST) Only the most recent of3 resultswithin the time period is included. LDH 283(H) 120 - 246 U/L [facility] 06/18/2024 3:00 AM EST 06/19/2024 2:53 PM EST us Atul Burton MD LAB BLOOD ORDERABLES Final Re sult Performing Organization Address [facility] [place] de Phone Number [facility] [address] [place] [address] * (ABNORMAL) Glucose, random (06/18/2024 3:00 AM EST) Only the most recent of3 resultswithin the time period is included. Glucose 182(H) 74 - 109 mg/dL [facility] 06/18/2024 3:00 AM EST 06/19/2024 2:53 PM EST us Atul Burton MD LAB BLOOD ORDERABLES Final Re sult Performing Organization Address [facility] [place] de Phone Number [facility] [address] [place] [address] * (ABNORMAL) Ferritin (06/18/2024 3:00 AM EST) Only the most recent of3 resultswithin the time period is included. Ferritin 1,023(H) 10 - 291 ng/mL [facility] 06/18/2024 3:00 AM EST 06/19/2024 2:53 PM EST Atul Burton MD LAB BLOOD ORDERABLES Final Re sult Performing Organization Address [facility] de Phone Number [facility] [address] [place] [address] * (ABNORMAL) Creatinine, serum (06/18/2024 3:00 AM EST) Only the most recent of3 resultswithin the time period is included. Creatinine 10.15(H) 0.55 - 1.02 mg/dL [facility] 06/18/2024 3:00 AM EST 06/19/2024 2:53 PM EST Atul Burton MD LAB BLOOD ORDERABLES Final Re sult Performing Organization Address [facility] de Phone Number [facility] [address] [place] [address] * (ABNORMAL) Bilirubin, total (06/18/2024 3:00 AM EST) Only the most recent of3 resultswithin the time period is included. Total Bilirubin <0.2(L) 0.3 - 1.2 mg/dL [facility] 06/18/2024 3:00 AM EST 06/19/2024 2:53 PM EST Atul Burton MD LAB BLOOD ORDERABLES Final Re sult Performing Organization Address [facility] [place] de Phone Number [facility] [address] [place] [address] * (ABNORMAL) Electrolyte panel (06/18/2024 3:00 AM EST) Only the most recent of3 resultswithin the time period is included. Sodium 136 136 - 145 mEq/L [facility] Potassium 5.4(H) 3.4 - 5.0 mEq/L [facility] Chloride 93(L) 98 - 107 mEq/L [facility] Bicarbonate (CO2) 28 21 - 31 mEq/L [facility] Anion Gap 15(H) 3 - 14 mEq/L [facility] 06/18/2024 3:00 AM EST 06/19/2024 2:53 PM EST us Atul Burton MD LAB BLOOD ORDERABLES Final Re sult Performing Organization Address [facility] [place] Co de Phone Number [facility] [address] [place] [address] * (ABNORMAL) Hemoglobin (06/09/2024 3:00 AM EST) Only the most recent of4 resultswithin the time period is included. Hgb 8.1(L) 11.2 - 15.7 g/dL [facility] Hemoglobin x 3 24.3(L) 33.6 - 47.1 g/dL [facility] 06/09/2024 3:00 AM EST 06/10/2024 12:25 PM EST us Atul Burton MD LAB BLOOD ORDERABLES Final Re sult Performing Organization Address [facility] Co de Phone Number [facility] [address] [place] [address] * (ABNORMAL) Phosphorus (06/04/2024 3:00 AM EST) Only the most recent of3 resultswithin the time period is included. Phosphorus, Serum 8.5(H) 2.5 - 5.0 mg/dL [facility] 06/04/2024 3:00 AM EST 06/06/2024 12:39 PM EST us Atul Burton MD LAB BLOOD ORDERABLES Final Re sult Performing Organization Address City/[facility]/ZIP Co de Phone Number [facility] [address] [place] [address] * Confirmation Test HCV (04/23/2024 3:00 AM EST) Pathologist [facility] Hep C Ab Confirmation Not needed [facility] 04/23/2024 3:00 AM EST 04/24/2024 1:05 PM EST Atul Burton MD LAB BLOOD ORDERABLES Final Re sult Performing Organization Address [facility] [place] de Phone Number [facility] [address] [place] [address] * HEPATITIS C ABS W/REFLEX RNA DETECTR (04/23/2024 3:00 AM EST) Pathologist [facility] Hep C Virus Ab Non-Reacti ve Non-Reacti ve [facility] 04/23/2024 3:00 AM EST 04/24/2024 1:15 PM EST Atul Burton MD LAB [id number] SOLICITED RESULTS Final Result Performing Organization Address [facility] de Phone Number [facility] [address] [place] [address] * Hepatitis B Surface Ag w/Reflex Confirmation (04/23/2024 3:00 AM EST) Pathologist [facility] Hep B Surface Antigen Negative Negative [facility] 04/23/2024 3:00 AM EST 04/24/2024 1:15 PM EST Atul Burton MD LAB BLOOD ORDERABLES Final Re sult Performing Organization Address [facility] [place] de Phone Number [facility] [address] [place] [address] * Aluminum level (04/23/2024 3:00 AM EST) Pathologist [facility] Aluminum 7 1 - 20 ug/L [facility] 04/23/2024 3:00 AM EST 04/24/2024 1:14 PM EST us Atul Burton MD LAB BLOOD ORDERABLES Final Re sult Performing Organization Address [facility] de Phone Number [facility] [address] [place] [address] * Hepatitis B Surface Antibody (04/23/2024 3:00 AM EST) Hep B Surface Antibody 124 mIU/mL [facility] Comment: Interpretation: <10: No Immunity >=10: Probable Immunity 04/23/2024 3:00 AM EST 04/24/2024 1:15 PM EST Atul Burton MD LAB BLOOD ORDERABLES Final Re sult Performing Organization Address [facility] Phone Number [facility] [address] [place] [address] * Uric Acid (04/23/2024 3:00 AM EST) Uric Acid 5.1 2.3 - 6.6 mg/dL [facility] 04/23/2024 3:00 AM EST 04/24/2024 1:15 PM EST Atul Burton MD LAB BLOOD ORDERABLES Final Re sult Performing Organization Address [facility] Phone Number [facility] [address] [place] [address] * PTH, Intact (04/23/2024 3:00 AM EST) PTH, Intact 404 160 - 721 pg/mL [facility] Comment: Suggested (KDIGO) ESRD maintenance range is two to nine times the upper normal limit (80.1 pg/mL) for the laboratory. 04/23/2024 3:00 AM EST 04/24/2024 1:15 PM EST us Atul Burton MD LAB BLOOD ORDERABLES Final Re sult Performing Organization Address [facility] de Phone Number [facility] [address] [place] [address] * (ABNORMAL) Hemoglobin A1c (04/23/2024 3:00 AM EST) Hemoglobin A1C 7.6(H) <5.7 % [facility] Comment: Methodology: Enzymatic HbA1c (NGSP %) ?Suggested Diagnosis >6.4% ? Diabetic 5.7-6.4% ?Pre-Diabetic <5.7% ? Non-Diabetic Diabetic Glucose Control Evaluation: Therapeutic action suggested at >8.0% ADA recommends a glycemic goal of <7.0% 04/23/2024 3:00 AM EST 04/24/2024 1:05 PM EST us Atul Burton MD LAB BLOOD ORDERABLES Final Re sult Performing Organization Address [facility] [place] de Phone Number [facility] [address] [place] [address] * (ABNORMAL) Lipid panel (04/23/2024 3:00 AM EST) Cholesterol 130 <200 mg/dL [facility] Comment: Optimal: ?<200 Borderline: ? 200-239 Higher Risk: ?>239 Triglycerides 75 <150 mg/dL [facility] Comment: Optimal: ?<150 Borderline High: ??150-199 High: ? 200-499 Very High: ?>499 HDL 34(A) >59 mg/dL [facility] Comment: Desirable: ?>59 Higher Risk: ?<40 LDL-Calc 81 <100 mg/dL [facility] Comment: Optimal: ?<100 Above Optimal: ?100-129 Borderline High: ??130-159 High: ? 160-189 Very High: ?>189 VLDL Cholesterol Moody 15 <30 mg/dL [facility] Comment: Optimal: ?<30 Borderline High: ??30-39 High: ? 40-99 Very High: ?>99 Chol/HDL Ratio 3.8(A) <3.3 [facility] Comment: Optimal: ?<3.3 Higher Risk: ?>6.2 04/23/2024 3:00 AM EST 04/24/2024 1:15 PM EST us Atul Burton MD LAB BLOOD ORDERABLES Final Re sult [facility] [address] [place] [address] from Last 3 Months Insurance [place] Care Teams Mathematics Professor Relationship Specialty Start Date End Date Azucena Bradley MD [address] [place] [address], [address] [place] [address] PCP - General Internal Medicine 01/22/24
== END 2024-06-26 10:48 | disposition home or self-care (01) ==
LOC: HO.ENCR 10:09
PROVIDERS: PCP Student in an Organized Health Care Education/Training Program; Visit Provider Registered Nurse Diabetes Educator
DX: E10.65 Type 1 diabetes mellitus with hyperglycemia (principal)

== ENCOUNTER 2024-06-26 10:08 | Outpatient (AMB) | payer MEDICARE, MEDICAID, SELFPAY ==
--- NOTE | 2024-06-25 14:48 | A.OFFVIS_ITS ---
Vital Signs 06/26/24 10:16 Height 5 ft 1 in Weight 154 lb 5.177 oz BMI 29.2 BP 120/78 Blood Pressure Location Rt brachial Position Sitting Pulse 96 Pulse Source Pulse Oximeter Pulse Oximetry (%) 96 Oxygen Delivery Method Room Air Intake Visit Reasons: DM Intake Note: Patient present today to follow up on Type 1 Diabetes Mellitus. Last Diabetic Eye exam: 06/2023 Last Podiatry Visit: 06/2023 Most Recent HgA1C: 8.0%, 04/24/2024 Random Glucose: 188 mg/dL, Today Piano Builder Required: No Accompanied by: Self / Same As Patient Allergies icodextrin Allergy (Mild, Verified 06/26/24 10:16) Rash oxycodone Adverse Reaction (Severe, Verified 06/26/24 10:16) rash tramadol Adverse Reaction (Severe, Verified 06/26/24 10:16) rash CLOROXINE Allergy (Unknown, Uncoded 06/26/24 10:16) RASH HPI Comments Details: 33 year-old female today for follow-up visit, for diabetes type 1 management in the setting of end-stage renal disease. She was started on an omni pod earlier last year. Hgb A1C 04/24/24 8% 12/08/23 8.1% This is down from July of 9.9% pre pump. She was last seen by myself 04/24/24 and has appt with cde today She has type 1 diabetes diagnosed at age 11. Diabetes has been complicated with diabetic nephropathy with end-stage renal disease and hemodialysis. She has diabetic neuropathy, hypertension dyslipidemia. The patient is anuric. She has been on hemodialysis Sunday and Fridays for several years.. She had a full cardiac workup at [facility] 2 years ago and has been on the transplant list at [facility]. saw optho 07/07 - no retinopathy per patient reports She will schedule seen at [facility] Has neuropathy: Symptoms include numbness, tingling she is followed by Podiatry tingling much better since on pregalabin Last LDL 123 not on statin contol: IUD not planning for she would like to wait for transplant first seen at [facility] regulary has appt next month Dexcom average glucose: 220 14 day continuous glucose monitor report reviewed Glucose Managment indicator 8.7 % Days with CGM data 91.6 % TIme in ranges: 30 % very high (above 250) 37 % high ?(181-250) 33 % in range ?(70-180] 0 % low (69-55) 0 % ?very low (below 54) Interpretation [ overall readings 60 points higher than target with some bumps after meals] Interpretation she is having consistent postprandial elevations often triggered by not bolusing pre meal Auto mode 96% of the time average daily carbs 44.6 with 1.2 entries Total daily dose of insulin 35.2 Basal 65% 22.9 units Bolus 35% 12.3 units Basal rate(s) (units/hour) : 12 AM? to 12 AM 1.25units / hr Bolus setting Insulin Carbohydrate Ratio (s) 12 AM? to 12 AM 1:6.8 New 6.2 Correction Factor / Sensitivity Factor 12 AM? to 12 AM? 1:32 NEW 3.0 Active Insulin Time:? 3.5 hours Target(s): 12 AM? to 12 AM 120 mg/dL Correction Threshold 12 AM? 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 Hypoglycemia due to type 1 diabetes mellitus Hypertension Dyslipidemia Diabetic polyneuropathy associated with type 1 diabetes mellitus Diabetes type 1, uncontrolled ESRD (end stage renal disease) on dialysis ESRD (end stage renal disease) Surgical History History of hemodialysis Hx of amputation Hx of eye surgery Hx of section Family History Father Diabetes mellitus Mother Thyroid disease Pre-diabetes HTN (hypertension) Acute depression Arthritis Social History Household Members: Significant Other Household Members Other:: / - 6 y/o daughter Housing: Apartment Do you presently have visiting nurse or other home services: No Alcohol intake: never Patient Tobacco Use Status: Never used Tobacco service: No Current occupational status: disabled Physical Exam Vital Signs: Last Vital Signs Pulse 96 06/26/24 10:16 BP 120/78 06/26/24 10:16 Pulse Ox 96 06/26/24 10:16 Oxygen Delivery Method Room Air 06/26/24 10:16 BMI result Body Mass Index 29.2 Const Other: Absence of Cushingoid features. Absence of acromegalic features. Heart S1 S2, Reg R/R. No M/R G. Skin exam reveals absence of vitiligo or acanthosis nigricans. No edema Office Procedures Glucose Monitoring Details Details: see hpi 55079 - Glucose monitoring, continuous-physician I&R Procedure code (CPT) selection complete Results Reviewed Results Reviewed: Laboratory Last Values Glucose (Clinic) 188 mg/dL (60-115) H 06/26/24 10:22 Assessment & Plan Assessment & Plan (1) Diabetes type 1, uncontrolled: Code(s): E10.65 - Type 1 diabetes mellitus with hyperglycemia Category: Medical Plan: 33-year-old type 1 diabetic with end-stage renal disease on hemodialysi s/transplant list, neuropathy and hypoglycemia unawareness on an insulin pump. A1C 8% 04/24/24 Settings changed to reduce glucose after meals. Neuropathy doing better on Lyrica. She will schedule eye exam at [facility]. The patient had an opportunity to ask questions regarding treatment plan. The patient expressed understanding and agreement with the above treatment plan. The patient is aware they should contact our office by phone for worsening glucose readings or for any low blood sugars which may warrant a change in diabetes medication. Compliance is encouraged with medications and any followup testing/consults which may have been ordered. Orders: Orders Fructosamine 06/25/24 E10.65 - Type 1 diabetes mellitus with hyperglycemia AMB Glucose Monitoring Today E10.65 - Type 1 diabetes mellitus with hyperglycemia Coding Level of Care Code Est Pt Level 3 (29749) Complex EM visit Add On G2211 Diagnoses Diabetes type 1, uncontrolled E10.65 CPT Codes Details - CPT: 36109 - Glucose monitoring, continuous-physician I&R ([id number]) Time Spent (min) 20 Comment Reviewing labs/provider notes, glucose sensor/pump reports, face to face, chart doc
[2024-06-26 10:16] VITALS: BP 120/78; PULSE 96; O2SAT 96; BMI 29.2
[2024-06-26 10:25] LABS: Glucose, Whole Blood 188 mg/dL (60-115)
== END 2024-06-26 10:47 | disposition home or self-care (01) ==
LOC: HO.ENCR 10:09
PROVIDERS: PCP Student in an Organized Health Care Education/Training Program; Visit Provider Nurse Practitioner Adult Health
DX: E10.65 Type 1 diabetes mellitus with hyperglycemia (principal)
CPT/HCPCS: 95251; 99213; G2211

== ENCOUNTER → 2024-06-26 10:08 | Outpatient (BNVA) | payer MEDICARE, MEDICAID, SELFPAY | PROVIDERS: PCP Student in an Organized Health Care Education/Training Program; Visit Provider Registered Nurse Diabetes Educator | DX: E10.65 Type 1 diabetes mellitus with hyperglycemia (principal) | CPT/HCPCS: 82947; 99211; 99212 ==

== ENCOUNTER 2024-07-03 11:02 | Outpatient (REF) | payer MEDICARE, MEDICAID, SELFPAY ==
--- NOTE | 2024-07-03 11:24 | PFT_ITS ---
Flows: FEV1: 60 % of predicted at 1.71 L FVC: 54 % of predicted at 1.82 L FEV1/FVC: 94 % Bronchodilator response: Present in small to medium airways only Volumes: Total lung capacity: 65 % of predicted at 3.02 L Residual volume: 112 % of predicted at 1.21 L Slow vital capacity: 50 % of predicted at 1.82 L Expiratory reserve volume: 20 % of predicted at 0.23 L Diffusion capacity: Moderately decreased, corrects to normal after adjustment for alveolar ventilation. Impression: Moderate restrictive ventilatory defect with bronchodilator response present in small to medium airways only. Decreased expiratory reserve volume suggests extrathoracic restriction likely secondary to abdominal obesity. Combination of restrictive ventilatory defect with decreased diffusion capacity suggests underlying pulmonary parenchymal disease. Clinical correlation is advised. [facility]
[2024-07-03 12:02] VITALS: PULSE 86; O2SAT 99
--- OUTSIDE RECORDS SUMMARY | 2024-07-03 13:02 | XMS_ITS | Encounter Summary ---
Author Organization [facility] Address [address] [place] [phone] Phone Care Team Providers Care Commercial Parts Professional Name Role Phone Azucena Bradley MD Primary Care Provider [phone] Encounter Details Date Type Department Care Team (Late st Contact Info) Description 05/19/2024 Treatment [facility] [address] [address] Edwina Min MD [address] [address] Social History Tobacco Use Types [...] care for end stage renal disease. Attending Automotive Parts Interpreter: EDWINA MIN MD Dialysis Location: [facility] Schedule: Shift: 2 ADEQUACY [...] on filedocumented in this encounter Care Teams Commercial Parts Professional Relationship Specialty Start Date End Date Azucena Bradley MD [address] [place] [address], Floor 3 [place] [address] PCP - General Internal Medicine 01/22/24 documented as of this encounter
--- OUTSIDE RECORDS SUMMARY | 2024-07-03 13:02 | XMS_ITS | Encounter Summary ---
Author Organization [facility] Address [address] [place] [address] Care Team Providers Care Html Web Developer Name Role Phone Mt Hooker MD Primary Care Provider + [phone] Reason for Visit * Reason Comments DM Foot Care Poorly controlled ty pe 2 diabetes mellitus with neuropathy (HCC) (Primary Dx); Hammertoes of both feet; Dermatophytosis, nail Encounter Details Date Type Department Care Team (Late st Contact Info) Description 07/01/2024 1:30 PM EDT Office Visit Orthopedic Surgery - [place] [address] [phone] Siva Lino, DPM [address] [address] Poorly controlled type 2 diabetes mellitus with neuropathy (CMS/HCC) (Primary Dx); Neuropathy; Callus; Localized edema; Hammertoes of both feet; Ulcer of right heel, with fat layer [...] - - Weight 67.1 kg (148 lb) 07/01/2024 1:54 PM EDT Height 154.9 cm (5' 0.98 ) 07/01/2024 1:54 PM ED T Body Mass Index 27.98 07/01/2024 1:54 PM EDT documented in this encounter Progress Notes * Siva Lino DPM - 07/01/2024 1:30 PM EDT Referring MD: Morro Last PCP visit: 03/29/2024 IDENTIFIER: @TITLE@ Smith is a 33 y.o. year old female who presents for consultation. CC: Bilateral foot pain HPI: 73-year-old female returns office for chief complaint of the right lateral foot wound. Patient has been keeping an offloading pad to the area and notes her pain has subsided. Patient notes that the Scar tissue over the previous amputation site has been increasingly painful wearing close toed shoes and socks. Patient is here for evaluation treatment ROS: [...] Outpatient Medications Marked as Taking for the 07/01/24 encounter (Office Visit) with Siva Lino DPM [...] Sharp/dull sensation diminished, protective sensation diminished on [place]. Multipleperipheral neuropathies bilaterally. ORTHOPEDIC: Good muscle strength 5/5 of all flexors and extensors. Dorsi flexion of ankle ,10 degrees, plantar flexion WNL. No muscle atrophy. 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 Contracture of digits 2 through 5 on the left with increased splitting at the sulcus of the fourth digit of the left foot with callus formation DERMATOLOGICAL:.There is a small remaining area of subcutaneous tissue over the lateral portion of the right heel. Skin has mostly healed. Granular eschar overlying the wound. No streaking cellulitisor clinical signs of infection Wound is healed to the posterior aspect of the right Achilles BIOMECHANICS: Patient ambulates with increased pressure over the lateral aspect of the right foot IMPRESSION: 1. Poorly controlled type 2 diabetes mellitus with neuropathy (CMS/HCC) 2. Neuropathy 3. Callus 4. Localized edema 5. Hammertoes of both feet 6. Ulcer of right heel, with fat layer [...] diet and medication to control Patient was once again educated that due to the multitude of amputations her foot is sliding to thesupinated position during stance which is causing increased pressure to the lateral calcaneal area and continuing to reopen the wound. Patient was given a prescription for diabetic shoe with Plastizote insole in order to create a lateral flange to keep the foot in proper positioning when ambulating. Patient continues to have a wound to [...] Upcoming Encounters Date Type Department Care Team ([facility] Contact Info) Description 08/19/2024 10:30 AM EDT Office Visit Orthopedic Surgery - [place] [address] [phone] Siva Lino DPM [address] [address] documented as of this encounter Visit Diagnoses Diagnosis Poorly controlled type 2 diabetes mellitus with neuropathy (CMS/HCC)- Primary Neuropathy Mononeuritis of unspecified site Callus Corns and callosities Localized edema Edema Hammertoes of both feet Ulcer of right heel, with fat layer exposed (CMS/HCC) documented in this encounter Orders General Supply Count Last Ordered Date First Or dered Date DIABETIC CUSTOM MOLDED SHOE WITH INSERTS 1 07/01/2024 documented in this encounter Care Teams Html Web Developer Relationship Specialty Start Date End Date Mt Hooker MD [address] [place] [phone] PCP - General Internal Medicine 09/26/21 documented as of this encounter
--- OUTSIDE RECORDS SUMMARY | 2024-07-03 13:02 | XMS_ITS | Patient Health Record ---
Author Organization [facility] Address [address] [facility] [place] [address] Care Team Providers Care Compliance Program Manager Name Role Phone Dory Martin Unavailable [phone] Reason For Referral No Information Plan Of Treatment No Information Insurance Providers Payer Name Payer Address Payer Phone Subscriber Number Group Number Insured Name Patient Relationship to Insured Coverage Start Date Coverage End Date Medicare National [employer] [address] [place] [address] [phone] Natali Mtz Self - patient is the insured
--- OUTSIDE RECORDS SUMMARY | 2024-07-03 13:02 | XMS_ITS | Encounter Summary ---
Author Organization [facility] Address [address] [place] [phone] Phone Care Team Providers Care Fashion Marketer Name Role Phone Azucena Bradley MD Primary Care Provider + [phone] Encounter Details Date Type Department Care Team (Late st Contact Info) Description 06/18/2024 Treatment [facility]. [address] [phone] Edwina Min MD [address] [address] End stage renal disease; Dependence [...] care for end stage renal disease. Attending Coach Cleaner: EDWINA MIN MD Dialysis Location: [facility] Schedule: M-W-F Shift: 2 ADEQUACY ASSESSMENT [...] phos binders 06/13/24 stable, msg sent to [facility] looking for update as to status [...] dialysis documented in this encounter Care Teams Fashion Marketer Relationship Specialty Start Date End Date Azucena Bradley MD [address] [place] [address], Floor 3 [place] [address] PCP - General Internal Medicine 01/22/24 documented as of this encounter
--- OUTSIDE RECORDS SUMMARY | 2024-07-03 13:02 | XMS_ITS | Clinical Summary ---
Author Organization [facility] Address 175 [place] [address] Phone Care Team Providers Care Time Clock Inspector Name Role Phone Mt Hooker MD Primary Care Provider [phone] Allergies No known active allergies Medications CALCITRIOL [...] dry skin. 400 g 2 5 05/06/19 26 Active Encounters Date Type Department Care Team Description 07/01/2024 1:30 PM EDT Office Visit Orthopedic Surgery [facility] [address] [phone] Siva Lino DPM Poorly controlled type 2 diabetes mellitus with neuropathy (CMS/HCC) (Primary Dx); Neuropathy; Callus; Localized edema; Hammertoes of both feet; Ulcer of right heel, with fat layer exposed (CMS/HCC) 06/17/2024 10:15 AM EST Office Visit Orthopedic Surgery [place] [address] [address] Siva Lino DPTristin Controlled type 2 diabetes with neuropathy (CMS/HCC) (Primary Dx); Hammertoes of both feet; Dermatophytosis, nail; Ulcer of right heel, with fat layer exposed (CMS/HCC) 06/10/2024 10:00 AM EST Office Visit Orthopedic [facility] [address] [address] Siva Lino DPTristin Controlled type 2 diabetes with neuropathy (CMS/HCC) (Primary Dx); Ulcer of right heel, with fat layer exposed (CMS/HCC); Non-pressure chronic ulcer of right ankle with fat layer exposed (CMS/HCC) 06/03/2024 10:15 AM EST Office Visit Orthopedic Surgery [facility] [address] [phone] Siva Lino, DPM Hammertoes of both feet (Primary Dx); Controlled type 2 diabetes with neuropathy (CMS/HCC); Ulcer of right heel, with fat layer exposed (CMS/HCC) 05/06/2024 1:00 PM EST Office Visit Orthopedic Surgery [facility] [address] [phone] Siva Lino DPTristin Controlled type 2 diabetes with neuropathy (CMS/HCC) (Primary Dx); Hammertoes of both feet; Xerosis cutis; Ulcer of right heel, limited to breakdown of skin ([facility]); Dermatophytosis, nail from Last 3 Months Immunizations Name Administration Dates Next Due COVID-19 (Moderna/Spikevax) 12yo and older 01/26 Moderna SARS-CoV-2 COVID-19, mRNA, LNP-S, preservative free 07/09/2020,05/26/2020 Medical History Medical History Date Comments Kidney failure DX:Kidney failur e Diabetes mellitus ([facility]) DX:D iabetes mellitus ([facility]) Diabetic neuropathy ([facility]) DX :Diabetic neuropathy ([facility]) Type 1 diabetes ([facility]) DX:Typ e 1 diabetes ([facility]) Hypertension DX:Hypertension Social History Tobacco Use [...] Mass Index 27.98 07/01/2024 1:54 PM EDT Plan of Treatment Upcoming Encounters Date Type Department Care Team (Late st Contact Info) Description 08/19/2024 10:30 AM EDT Office Visit Orthopedic Surgery - [place] [address] [address] Siva Lino DPM 175 [facility] 250 [place] [address] Health Maintenance Due Date Last Done Comments [...] Test (04/06/2022) Annual BMP Blood Test abstracted [facility] Provider HEALTH MAINTENANCE Final Result * Hepatitis C Screening (11/30/2020) Hepatitis C Screening abstracted Historical Provider MD HEALTH MAINTENANCE Final Result from Last 3 Months or Most Recently Relevant to Health Maintenance Insurance MEDICAID - [place] MEDICARE Care Teams Time Clock Inspector Relationship Specialty Start Date End Date Mt Hooker MD [address] [place] [address] [place] [phone] PCP - General Internal Medicine 09/26/21
--- OUTSIDE RECORDS SUMMARY | 2024-07-03 13:02 | XMS_ITS | Clinical Summary ---
Author Organization [facility] Address [address] [place] [address] Care Team Providers Care Odd Piece Checker Name Role Phone Ally Ferreira Primary Care Provider [phone] Allergies Active Allergy Reactions Criticality Noted Date [...] 1 each 3 3 Active Dexcom G6 Learning Coordinator misc Use as directed. E10.65 1 each [...] associa hannah with type 1 diabetes mellitus 03/02/2023 PAD (peripheral artery disease) 02/27/2023 Assessment [...] Department Care Team Description 06/20/2024 Orders Only [facility] Transplant Department [address] [place] [address] Sabina Velázquez, RN ESRD (end stage renal disease) (Primary Dx); Pre-transplant evaluation for kidney transplant 06/20/2024 Telephone [facility] Transplant Department [address] [place] [address] Sabina Velázquez, RN from Last 3 Months Immunizations Immunization Administration Dates Next Due Covid-19 Monovalent Vaccine, Moderna, mRNA, PF 07/09/2020,05/26/2020 GHbX-Eby-SFR 05/05/1993,02/22/1993,12/22/1992 Diphtheria, Tetanus Toxoids and Acellular Pertussis [...] Description 01/27/2025 11:00 AM EDT Social Work [facility] Renal Transplant [address] [place] [address] Chani Vargas LICSW [address] [place] [address] 02/24/2025 10:20 AM EST Follow-Up [facility] Renal Transplant [address] [place] [address] Vinicio Harris MD [address] [place] [address] Health Maintenance Due Date Last Done Comments [...] Additional history exists Procedures * Due to [place] state law, this organization might not be sharing negative HIV tests. Procedure Name Priority Date/Time Associated Diagnosis Comments HLA MONTHLY ANTIBODY IDENTIFICATION - CLASS I Routine 06/20/2024 11:40 AM EST ESRD (end stage renal disease) Pre-transplant evaluation for kidney transplant HLA MONTHLY ANTIBODY IDENTIFICATION - CLASS I Routine 05/21/2024 1:23 PM EST Pre-transplant evaluation for kidney transplant ESRD (end stage renal disease) HLA MONTHYLY ANTIBODY IDENTIFICATION - CLASS II Routine 05/21/2024 1:23 PM EST Pre-transplant evaluation for kidney transplant ESRD (end stage renal disease) HLA MONTHYLY ANTIBODY IDENTIFICATION - CLASS II Routine 04/15/2024 11:01 AM EST Pre-transplant evaluation for kidney transplant ESRD (end stage renal disease) HLA MONTHLY ANTIBODY IDENTIFICATION - CLASS I Routine 04/15/2024 11:01 AM EST Pre-transplant evaluation for kidney transplant ESRD (end stage renal disease) POCT GLYCOSYLATED HEMOGLOBIN (HGB A1C) Routine 02/27/2023 1:05 PM EST BASIC METABOLIC PANEL, OUTSIDE LAB Routine 11/21/2022 HEPATITIS C ANTIBODY W/REFLEX TO HCV RNA, QUANTITATIVE PCR Routine 11/30/2020 11:09 AM EDT ESRD (end stage renal disease) on dialysis Pre-transplant evaluation for kidney transplant from Last 3 Months or Most Recently Relevant to Health Maintenance Results * Due to [place] state law, this organization might not be sharing negative HIV tests. * (ABNORMAL) POCT Glycosylated Hemoglobin (HGB A1C), interfaced (02/27/2023 1:05 PM EST) Pathologist [facility] Hemoglobin A1C, POCT 10.6(H) <=5.6 % 02/27/2023 1:20 PM EST [facility] Comment: A1C Recommendation for Non- Adults with Diabetes: <7.0% ADA 2011 Standards of Medical Care in Diabetes Blood 02/27/2023 1:05 PM EST 02/27/2023 1:20 PM EST Robert Meredith MD LAB POCT ORDERABLES - DEVICE Final Result [facility], POC [address] [place] [address], * (ABNORMAL) Basic Metabolic Panel, Outside Lab (11/21/2022) Pathologist [facility] Sodium 134 mmol/L Potassium 4.2 Chloride 90 Carbon Dioxide 29 BUN 42(H) mg/dL Creatinine 8.04(H) mg/dL Calcium 9.2 mg/dL Blood Structure of peripheral vein / Unknown 11/21/2022 Unknown Provider LAB BLOOD ORDERABLES Final R esult * Hepatitis C Antibody w/Reflex to HCV RNA, Quantitative PCR (11/30/2020 11:09 AM EDT) Hepatitis C Antibody NON-REACT JOSE RAFAEL NON-REACT JOSE RAFAEL 12/01/2020 8:37 AM EDT [employer] [facility] Signal To Cut-Off 0.02 <1.00 12/01/2020 8:37 AM EDT [employer] [facility] Comment: HCV antibody was non-reactive. There is no laboratory evidence of HCV infection. In most cases, no further action is required. However, if recent HCV exposure is suspected, a test for HCV RNA (test code 86668) is suggested. For additional information please refer to http://education.Trapmine/faq/NUF56g1 (This link is being provided for informational/ educational purposes only.) Blood Structure of peripheral vein / Unknown Venipuncture / Unknown 11/30/2020 11:09 AM EDT 11/30/2020 11:33 AM EDT Narrative [facility] - 12/01/2020 8:37 AM EDT [facility] Received Date: Stefan Robbins MD LAB BLOOD ORDERABLES Final Result [facility] [address] [facility] [address] [facility], [place] [address], [employer] [facility] [address] [facility] 3rd Floor, [place] [address], from Last 3 Months or Most Recently Relevant to Health Maintenance Insurance MEDICARE [facility] MEDICARE [facility] Advance Directives Documents on File Type Date Recorded Patient School Photographs Detailer Expl anation Health Care Proxy 01/26/2023 10:42 AM 01/18/23 Health Care Proxy 12/11/2019 8:18 AM 11/30 Care Teams Odd Piece Checker Relationship Specialty Start Date End Date Ally Ferreira [address] [place] [address] PCP - General 02/04/24
--- OUTSIDE RECORDS SUMMARY | 2024-07-03 13:02 | XMS_ITS | Encounter Summary ---
Author Organization [facility] Address [address] [facility] [address] [place] [address] Phone Care Team Providers Care Inspector Open Die Name Role Phone Azucena Bradley MD Primary Care Provider [phone] Reason for Visit * Reason Comments Med Refill Encounter Details Date Type Department Care Team (Late st Contact Info) Description 09/02/2023 Refill [facility] [address] [place] [address] [place] [phone] Paul Brothers MD [address] [facility] [address] [place] [phone] Social History Tobacco Use Types Packs/Day Years [...] on filedocumented in this encounter Care Teams Inspector Open Die Relationship Specialty Start Date End Date Azucena Bradley MD [address] [place] [address], Floor 3 [place] [address] PCP - General Internal Medicine 01/22/24 documented as of this encounter
--- OUTSIDE RECORDS SUMMARY | 2024-07-03 13:02 | XMS_ITS | Encounter Summary ---
Author Organization [facility] Address [address] [place] [phone] Phone Care Team Providers Care Hemmer Automatic Name Role Phone Azucena Bradley MD Primary Care Provider [phone] Encounter Details Date Type Department Care Team (Late st Contact Info) Description 06/30/2024 Treatment [facility]. [address] [address] Edwina Min MD [address] [address] End stage renal disease; Dependence [...] Dialysis Note - Edwina Min MD - 06/30/2024 12:00 AM EDT Patient: Natali Mtz : 1990 Note Type: Dialysis Rounds-Comp Service Date: 06/30/2024 This patient was personally seen for a complete visit as part of routine monthly dialysis care for end stage renal disease. Attending Podiatry Assistant: EDWINA MIN MD Dialysis Location: [facility] Schedule: Shift: 2 ADEQUACY ASSESSMENT Kt/V, Natural Log 1.54 (06/18/24) 1.89 (05/21/24) 1.86 (04/23/24) UREA REDUCTION RATIO (%) 72 (06/18/24) 78 (05/21/24) 77 (04/23/24) BUN 50 (06/18/24) 65 (05/21/24) 69 (04/23/24) BUN Post Dialysis 14 (06/18/24) 14 (05/21/24) 16 (04/23/24) Creatinine 10.15 (06/18/24) 10.37 (05/21/24) 9.26 (04/23/24) Bicarbonate (CO2) 28 (06/18/24) 27 (05/21/24) 23 (04/23/24) Sodium 136 (06/18/24) 135 (05/21/24) 134 (04/23/24) ANEMIA ASSESSMENT Hgb 8.4 (06/18/24) 8.1 (06/09/24) 9.7 (06/04/24) Iron Saturation (TSat) 30 (06/18/24) 25 (05/21/24) 31 (04/23/24) Ferritin 1,023 (06/18/24) 973 (05/21/24) 852 (04/23/24) Iron 47 (06/18/24) 46 (05/21/24) 60 (04/23/24) TIBC 157 (06/18/24) 186 (05/21/24) 193 (04/23/24) MCV 92.9 (06/18/24) 94.1 (05/21/24) 92.4 (04/23/24) Platelets 325 (06/18/24) 351 (05/21/24) 257 (04/23/24) BMM ASSESSMENT Calcium, Adjusted Total 10.1 06/18/24 10.0 05/21/24 9.3 04/23/24 Calcium 10.1 06/18/24 10.0 05/21/24 9.3 04/23/24 Phosphorus, Serum 6.7 06/18/24 8.5 06/04/24 7.8 05/21/24 Ca*PO4 67.7 06/18/24 78.0 05/21/24 74.4 04/23/24 PTH, Intact 404 04/23/24 412 02/20/24 Magnesium 2.4 06/18/24 2.6 05/21/24 2.3 04/23/24 Alkaline Phosphatase 111 06/18/24 138 05/21/24 163 04/23/24 Aluminum 7 04/23/24 NUTRITION ASSESSMENT Albumin 4.2 06/18/24 4.3 05/21/24 4.4 04/23/24 Potassium 5.4 06/18/24 5.0 05/21/24 5.7 04/23/24 Hemoglobin A1C 7.6 04/23/24 ADDITIONAL LABS White Blood Cells 13.6 (06/18/24) 14.0 (05/21/24) 9.8 (04/23/24) Cholesterol 130 (04/23/24) HDL 34 (04/23/24) LDL-Calc 81 (04/23/24) Triglycerides 75 (04/23/24) Hep B Surface Antibody 124 (04/23/24) Uric Acid 5.1 (04/23/24) ADDITIONAL COMMENT COMMENTS: 05/26/24 stable 05/28/24 incr bp and meds adj, incr phos binders 06/13/24 stable, msg sent to [facility] looking for update as to status 06/18/24 stable 06/30/24 doing ok, getting w/u to get on xplannt list 04/15/24 stable 04/18/24 doing well 12/19/23 Stable [...] stable Signed by: EDWINA MIN MD on 06/30/2024 at 05:46:17 PM documented in this encounter Plan of Treatment Not on file documented as of this encounter Visit Diagnoses Diagnosis End stage renal disease Dependence on renal dialysis documented in this encounter Care Teams Hemmer Automatic Relationship Specialty Start Date End Date Azucena Bradley MD [address] [place] [address], Floor 3 [place] [address] PCP - General Internal Medicine 01/22/24 documented as of this encounter
--- OUTSIDE RECORDS SUMMARY | 2024-07-03 13:02 | XMS_ITS | Encounter Summary ---
Author Organization [facility] Address [address] [facility] [address] [place] [address] Phone Care Team Providers Care Pole Cutter Name Role Phone Azucena Bradley MD Primary Care Provider [phone] Reason for Visit * Reason Comments Med Refill Encounter Details Date Type Department Care Team ([facility] st Contact Info) Description 06/04/2023 Refill [facility] [address] [place] [address] [place] [phone] Wesley Pagan MD [address] [facility] [address] [place] [phone] Social History Tobacco Use Types Packs/Day Years [...] on filedocumented in this encounter Care Teams Pole Cutter Relationship Specialty Start Date End Date Azucean Bradley MD [address] [place] [address], Floor 3 [place] [address] PCP - General Internal Medicine 01/22/24 documented as of this encounter
--- OUTSIDE RECORDS SUMMARY | 2024-07-03 13:02 | XMS_ITS | Encounter Summary ---
Author Organization [facility] Address [address] [place] [address] Care Team Providers Care Trademark Attorney Name Role Phone Ally Ferreira Primary Care Provider [phone] Encounter Details Date Type Department Care Team (Late st Contact Info) Description 05/07/2023 Orders Only [facility] Nuclear Medicine [address] [place] [address] Shiva Duran MD [address] [place] [address] Social History Tobacco Use Types Packs/Day Years [...] Description 01/27/2025 11:00 AM EDT Social Work [facility] Renal Transplant [address] [place] [address] Chani Vargas LICSW [address] [place] [address] 02/24/2025 10:20 AM EST Follow-Up [facility] Renal Transplant [address] [place] [address] Vinicio Harris MD [address] [place] [address] documented as of this encounter Visit Diagnoses Not on filedocumented in this encounter Care Teams Trademark Attorney Relationship Specialty Start Date End Date Ally Ferreira [address] [place] [address] PCP - General 02/04/24 documented as of this encounter
--- OUTSIDE RECORDS SUMMARY | 2024-07-03 13:02 | XMS_ITS | Encounter Summary ---
Author Organization [facility] Address [address] [place] [address] Care Team Providers Care Drama Director Name Role Phone Mt Hookre MD Primary Care Provider + [phone] Reason for Visit * Reason Comments DM Foot Care Encounter Details Date Type Department Care Team ([facility] st Contact Info) Description 06/10/2024 10:00 AM EST Office Visit Orthopedic Surgery - [place] [address] [phone] Siva Lino, DPM [address] [address] Controlled type 2 diabetes with neuropathy (CMS/HCC) [...] Sharp/dull sensation diminished, protective sensation diminished on [place]. Multipleperipheral neuropathies bilaterally. ORTHOPEDIC: Good muscle strength [...] AM EDT Office Visit Orthopedic Surgery - [place] [address] [phone] Siva Lino DPM [address] [address] documented as of this encounter Visit Diagnoses Diagnosis Controlled type 2 diabetes with neuropathy (CMS/HCC)- Primary Type II or unspecified type diabetes mellitus with neurological manifestations, not stated as uncontrolled Ulcer of right heel, with fat layer exposed (CMS/HCC) Non-pressure chronic ulcer of right ankle with fat layer exposed (CMS/HCC) documented in this encounter Care Teams Drama Director Relationship Specialty Start Date End Date Mt Hooker MD [address] [place] [phone] PCP - General Internal Medicine 09/26/21 documented as of this encounter
--- OUTSIDE RECORDS SUMMARY | 2024-07-03 13:02 | XMS_ITS | Encounter Summary ---
Author Organization [facility] Address [address] [place] [address] Phone Care Team Providers Care Healthcare Interpreter Name Role Phone Azucena Bradley MD Primary Care Provider Reason for Visit * Reason Comments Med Refill Encounter Details Date Type Department Care Team (Late st Contact Info) Description 06/22/2022 Refill [facility] [address] [place] [address] Forrest Adamson MD Social History Tobacco [...] on filedocumented in this encounter Care Teams Healthcare Interpreter Relationship Specialty Start Date End Date Azucena Bradley MD [address] [place] [address], [facility] 3 [place] [address] PCP - General Internal Medicine 01/22/24 documented as of this encounter
--- OUTSIDE RECORDS SUMMARY | 2024-07-03 13:02 | XMS_ITS | Encounter Summary ---
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 Multipleperipheral neuropathies bilaterally. ORTHOPEDIC: Good muscle strength [...] AM EDT Office Visit Orthopedic Surgery - [place] [address] [phone] Siva Lino DPM [address] [address] documented as of this encounter Visit Diagnoses Diagnosis Hammertoes of both feet- Primary Controlled type 2 diabetes with neuropathy (CMS/HCC) Type II or unspecified type diabetes mellitus with neurological manifestations, not stated as uncontrolled Ulcer of right heel, with fat layer exposed (CMS/HCC) documented in this encounter Care Teams Coating Mixer Tender Relationship Specialty Start Date End Date Mt Hooker MD [address] [place] [phone] PCP - General Internal Medicine 09/26/21 documented as of this encounter
--- OUTSIDE RECORDS SUMMARY | 2024-07-03 13:02 | XMS_ITS | Encounter Summary ---
Author Organization [facility] Address [address] [place] [address] Phone Care Team Providers Care Bran Mixer Name Role Phone Azucena Bradley MD Primary Care Provider [phone] Reason for Visit * Reason Comments Med Refill Encounter Details Date Type Department Care Team (Late st Contact Info) Description 03/06/2021 Refill [facility] [address] [place] [address] Forrest Adamson MD Social History Tobacco [...] on filedocumented in this encounter Care Teams Bran Mixer Relationship Specialty Start Date End Date Azucena Bradley MD [address] [place] [address], [facility] 3 [place] [address] PCP - General Internal Medicine 01/22/24 documented as of this encounter
--- OUTSIDE RECORDS SUMMARY | 2024-07-03 13:02 | XMS_ITS | Encounter Summary ---
Author Organization [facility] Address [address] [place] [address] Care Team Providers Care Park Interpreter Name Role Phone Ally Ferreira Primary Care Provider [phone] Encounter Details Date Type Department Care Team (Late st Contact Info) Description 02/09/2021 Orders Only [facility] Nuclear Medicine [address] [place] [address] Shiva Duran MD [address] [place] [address] Social History Tobacco Use Types Packs/Day Years [...] Description 01/27/2025 11:00 AM EDT Social Work [facility] Renal Transplant [address] [place] [address] Chani Vargas LICSW [address] [place] [address] 02/24/2025 10:20 AM EST Follow-Up [facility] Renal Transplant [address] [place] [address] Vinicio Harris MD 55 [place] [address] documented as of this encounter Visit Diagnoses Not on filedocumented in this encounter Care Teams Park Interpreter Relationship Specialty Start Date End Date Ally Ferreira [address] [place] [address] PCP - General 02/04/24 documented as of this encounter
--- OUTSIDE RECORDS SUMMARY | 2024-07-03 13:02 | XMS_ITS | Encounter Summary ---
Author Organization [facility] Address [address] [place] [phone] Phone Care Team Providers Care Communications Clerk Name Role Phone Azucena Bradley MD Primary Care Provider + [phone] Encounter Details Date Type Department Care Team (Late st Contact Info) Description 06/13/2024 Treatment [facility]. [address] [address] Edwina Min MD [address] [address] End stage renal disease; Dependence [...] care for end stage renal disease. Attending Help Desk Consultant: EDWINA MIN MD Dialysis Location: [facility] DIALYSIS Schedule: M-W-F Shift: 2 ADEQUACY ASSESSMENT [...] dialysis documented in this encounter Care Teams Communications Clerk Relationship Specialty Start Date End Date Azucena Bradley MD [address] [place] [address], Floor [address] [place] [address] PCP - General Internal Medicine 01/22/24 documented as of this encounter
--- OUTSIDE RECORDS SUMMARY | 2024-07-03 13:02 | XMS_ITS | Encounter Summary ---
Author Organization [facility] Address [address] [place] [address] Care Team Providers Care Pyrometer Mechanic Name Role Phone Mt Hooker MD Primary Care Provider + [phone] Reason for Visit * Reason Comments Wound Check Encounter Details Date Type Department Care Team ([facility] st Contact Info) Description 06/17/2024 10:15 AM EST Office Visit Orthopedic Surgery - [place] [address] [phone] Siva Lino DPM [address] [address] Controlled type 2 diabetes with neuropathy (CMS/HCC) [...] Sharp/dull sensation diminished, protective sensation diminished on [place]. Multipleperipheral neuropathies bilaterally. ORTHOPEDIC: Good muscle strength [...] AM EDT Office Visit Orthopedic Surgery - [address] [phone] Siva Lino, DPTristin 175 [facility] 250 [place] [address] documented as of this encounter Visit Diagnoses Diagnosis Controlled type 2 diabetes with neuropathy (CMS/HCC)- Primary Type II or unspecified type diabetes mellitus with neurological manifestations, not stated as uncontrolled Hammertoes of both feet Dermatophytosis, nail Dermatophytosis of nail Ulcer of right heel, with fat layer exposed (CMS/[facility]) documented in this encounter Care Teams Pyrometer Mechanic Relationship Specialty Start Date End Date Mt Hooker MD 230 [facility] 1 [place] [phone] PCP - General Internal Medicine 09/26/21 documented as of this encounter
--- OUTSIDE RECORDS SUMMARY | 2024-07-03 13:03 | XMS_ITS | Encounter Summary ---
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) Rosy Dawson, ZUHAIR [address] [place] [address] Phone: tel: fax: Referral ID Status Reason Start Date Expiration Date Visits Requested Visits Authorized [id number] Authorized Continuity of Care 05/13/2024 05/13/2025 6 6 Encounter Details Date Type Department Care Team (Latest Contact Info) Description 05/30/2024 11:00 AM EST Telemedicine [facility] MEDICINE 230 [place] [address] Randi Marcelino, IgnacioD 230 [place], [place] [phone] Type 1 diabetes mellitus with chronic kidney disease on chronic dialysis ([facility]/HCC) (Primary Dx); Hypertension, unspecified type; Hyperlipidemia, unspecified [...] with chronic kidney disease on chronic dialysis ([facility]) Referral Expiration: 05/13/2025 Referring Provider: ZUHAIR Galvin [...] contrast media, tramadol, and oxycodone. Preferred Pharmacy: [facility]/pharmacy #[id number] [place] [address] Medbox: No. Assessment & Plan Adherence: History: Medication Reconciliation: Denies use of the following medications that are active in [facility] medlist: Folic acid: patient denies use Amino acid infusion solution: denies use Insulin glargine: reports using Basaglar Kwikpen OTC medication, vitamin, supplement use: denies Adherence: Medication Organization: Takes from vials Reports satisfaction with vials and declines interest in [facility] medbox program Missed doses: Denies missed doses Read/Write: Yes, in [place] Goals of therapy: Improve adherence & minimize missed doses (<2 missed doses/week) Recommendations/Monitoring: Pharmacy updated medlist in [facility] to match patients current medication use Chronic [...] medications for renal dose adjustments Pharmacy contacted [facility] pulmonology 2 times (message left with [...] taking vitamin B12 daily Patient follows with [facility] (Elena Centeno RN), last appointment 03/25/2024 [...] pending vitamin B12 and urine microalbumin at [facility] lab Attend follow up appointments documented in this encounter Plan of Treatment Upcoming Encounters Date Type Department Care Team (Late st Contact Info) Description 09/02/2024 10:15 AM EDT Office Visit [facility] MEDICINE [address] [place] [address] Ally Ferreira MD 230 [place], [place] [phone] Scheduled Orders Name Type Priority Associated Diagnoses Orde r Schedule Albumin, Random Urine W/Creatinine Lab Routine Type 1 diabetes mellitus with chronic kidney disease on chronic dialysis ([facility]) Expected: 06/10/2024 (Approximate), Expires: 05/29/2025 documented as of this encounter Visit Diagnoses Diagnosis Type 1 diabetes mellitus with chronic kidney disease on chronic dialysis ([facility])- Primary Hypertension, unspecified type Hyperlipidemia, unspecified hyperlipidemia type documented in this encounter Additional Health Concerns Assessment Noted Time PHQ-9 Depression Total Score: 0 07/31/19 24 11:09 AM EDT documented as of this encounter Care Teams Automotive Light Mechanic Relationship Specialty Start Date End Date Ally Ferreira MD [address] [place] [address] PCP - General Internal Medicine 07/25/22 documented as of this encounter
--- OUTSIDE RECORDS SUMMARY | 2024-07-03 13:03 | XMS_ITS | Encounter Summary ---
Author Organization [facility] Address [address] [place] [address] Care Team Providers Care Bark Scaler Name Role Phone Ally Ferreira Primary Care Provider [phone] Encounter Details Date Type Department Care Team (Late st Contact Info) Description 06/20/2024 Orders Only [facility] Transplant Department [address] [place] [address] Sabina Velázquez RN 55 [place], [place] [phone] ESRD (end stage renal disease) (Primary Dx); [...] Description 01/27/2025 11:00 AM EDT Social Work [facility] Renal Transplant [address] [place] [phone] Chani Vargas LICSW 55 [place] [address] 02/24/2025 10:20 AM EST Follow-Up [facility] Renal Transplant [address] [place], [place] [phone] Vinicio Harris MD [address] [place], [place] [phone] documented as of this encounter Procedures * Due to [place] state law, this organization might not be sharing negative HIV tests. Procedure Name Priority Date/Time Associated Diagnosis Comments HLA MONTHLY ANTIBODY IDENTIFICATION - CLASS I Routine 06/20/2024 11:40 AM EST ESRD (end stage renal disease) Pre-transplant evaluation for kidney transplant documented in this encounter Visit Diagnoses Diagnosis ESRD (end stage renal disease) (HCC)- Primary End stage renal disease Pre-transplant evaluation for kidney transplant documented in this encounter Care Teams Bark Scaler Relationship Specialty Start Date End Date Ally Ferreira [address] [place] [address] PCP - General 02/04/24 documented as of this encounter
--- OUTSIDE RECORDS SUMMARY | 2024-07-03 13:03 | XMS_ITS | Encounter Summary ---
Author Organization [employer] [facility] Address [address] 7[address] [place] [address] Care Team Providers Care Hand Mixer Name Role Phone Ally Ferreira MD Primary [...] 10:15 AM EDT Office Visit [facility] MED[facility]INE 230 [place] [address] Ally Ferreira MD 230 [place], [place] [phone] documented as of this encounter Procedures Procedure Name Priority Date/Time Associated Diagnosis Comments GLUCOSE, WHOLE BLOOD Routine 06/26/2024 10:22 AM EDT documented in this encounter Results * (ABNORMAL) Glucose, Whole Blood (06/26/2024 10:22 AM EDT) Glucose, Whole Blood 188(H) 60 - 115 mg/dL [facility] Comment:METER #: [id number] Testing performed in the Endocrinology Department [address] , [address], [facility]. 06/26/2024 10:2 2 AM EDT 06/26/2024 10:24 AM EDT us Generic External Data Provider LAB BLOOD ORDERAB LES Final Result [facility] [address] [place] [phone] documented in this encounter Visit Diagnoses Not on filedocumented in this encounter Additional Health Concerns Assessment Noted Time PHQ-9 Depression Total Score: 0 07/31/19 24 11:09 AM EDT documented as of this encounter Care Teams Hand Mixer Relationship Specialty Start Date End Date Ally Ferreira MD [address] [place] [address] PCP - General Internal Medicine 07/25/22 documented as of this encounter
--- OUTSIDE RECORDS SUMMARY | 2024-07-03 13:03 | XMS_ITS | Encounter Summary ---
Author Organization [facility] Address [address] [place] [address] 7 [place] [address] Care Team Providers Care Stack Clerk Name Role Phone Ally Ferreira MD Primary Care Pro vider Reason for Visit * Reason Comments Med Refill Encounter Details Date Type Department Care Team (Late Contact Info) Description 09/02/2022 Refill [facility] MEDICINE [address] [place], [place] [phone] Ally Ferreira MD 230 [place] [address] Social History Tobacco Use Types Packs/Day Years [...] 10:15 AM EDT Office Visit [facility] MEDICINE [address] [place] [address] Ally Ferreira MD 230 [place] [address] documented as of this encounter Visit Diagnoses Not on filedocumented in this encounter Additional Health Concerns Assessment Noted Time PHQ-9 Depression Total Score: 0 08/11/19 9:11 AM EDT documented as of this encounter Care Teams Stack Clerk Relationship Specialty Start Date End Date Ally Ferreira MD [address] [place] [address] PCP - General Internal Medicine 07/25/22 documented as of this encounter
--- OUTSIDE RECORDS SUMMARY | 2024-07-03 13:03 | XMS_ITS | Encounter Summary ---
Author Organization [facility] Address [address] [place] [address] Care Team Providers Care Patrol Inspector Name Role Phone Ally Ferreira Primary Care Provider [phone] Encounter Details Date Type Department Care Team (Late st Contact Info) Description 01/11/2021 Orders Only [facility] Nuclear Medicine [address] [place] [address] Shiva Duran MD [address] [place] [address] Social History Tobacco Use Types Packs/Day Years [...] Description 01/27/2025 11:00 AM EDT Social Work [facility] Renal Transplant [address] [place] [address] Chani Vargas LICSW [address] [place] [address] 02/24/2025 10:20 AM EST Follow-Up [facility] Renal Transplant [address] [place] [address] Vinicio Harris MD 55 [place] [address] documented as of this encounter Visit Diagnoses Not on filedocumented in this encounter Care Teams Patrol Inspector Relationship Specialty Start Date End Date Ally Ferreira [address] [place] [address] PCP - General 02/04/24 documented as of this encounter
--- OUTSIDE RECORDS SUMMARY | 2024-07-03 13:03 | XMS_ITS | Clinical Summary ---
Author Organization [employer] Address [address] [place] [address] Care Team Providers Care Motor Vehicle Lecturer Name Role Phone Ally Ferreira MD Primary [...] 1 tablet by mouth in the morning. 12/27/19 22 Active hydrALAZINE (Apresoline) 100 MG tablet Take 0.5 tablets (50 mg) by mouth 2 times daily. 30 tablet 1 08/11/19 23 Active [facility] Saline Nasal Flanagan 0.65 % nasal spray ADMINISTER 1 SPRAY INTO EACH NOSTRIL IF NEEDED FOR CONGESTION. 44 mL 1 03/20/20 23 Active pyridoxine (Vitamin B-6) 100 MG tablet Take 100 mg by mouth in the morning. 03/10/20 23 Active Cyanocobalamin 1000 MCG capsule Take 1 tablet by mouth in the morning. 90 capsule 04/26/19 24 Active folic acid (Folvite) 800 MCG tablet Take by mouth in the morning. Active carvedilol (Coreg) 25 MG tabletIndication s:Primary hypertension TAKE 1 + 1/2 TABLET BY MOUTH TWICE A DAY WITH FOOD 270 tablet 1 06/14/19 24 Active NIFEdipine XL (Procardia XL) 90 MG 24 hr tabletIndication s:Hypertension, unspecified type TAKE 1 TABLET BY MOUTH IN THE MORNING DO NOT CRUSH, CHEW, OR SPLIT. 90 tablet 1 06/14/19 24 Active Continuous Glucose Press Clippings Cutter And Paster (Dexcom G6 manufacturing support engineer) device Use as directed. E10.65 03/02/20 23 Active Fiasp FlexTouch 100 UNIT/ML injection 4-10 UNITS SUBCUTANEOUSLY 3 TIMES A DAY 07/17/19 24 Active Liletta, 52 MG, 20.1 MCG/DAY intrauterine device 52 mg by Intrauterine route. 05/17/19 24 Active loratadine (Claritin) 10 MG tablet Take 10 mg by mouth in the morning. 04/11/20 23 Active montelukast (Singulair) 10 MG tablet Take 10 mg by mouth at bedtime. 05/20/19 24 Active LORazepam (Ativan) 0.5 MG tablet Take 0.5 mg by mouth Once per day. Active valACYclovir (Valtrex) 500 MG tabletIndication s:History of SIVAKUMAR positive for HSV TAKE 1 TABLET BY MOUTH THREE TIMES A WEEK. GIVE 1 TABLET AFTER DIALYSIS WHEN GIVEN ON DIALYSIS DAY. 36 tablet 2 04/21/19 25 Active Insulin Disposable Pump (Omnipod 5 [id number] Pods Gen 5) misc 1 each every 3rd (third) day. Change pod every 72 hours 04/01/20 24 Active ipratropium (Atrovent) 0.06 % nasal spray Administer 2 sprays into each nostril if needed in the morning, at noon, and at bedtime (allergies). 03/20/20 24 Active levalbuterol (Xopenex) 45 MCG/ACT inhaler Inhale 2 puffs every 4 (four) hours if needed for wheezing. 12/13/19 24 Active ammonium lactate (Lac-Hydrin) 12 % lotion Apply 1 Application. topically if needed for dry skin. 05/06/19 25 Active Basaglar KwikPen 100 UNIT/ML pen Inject 24 Units under the skin Once per day. 05/22/19 25 Active sevelamer carbonate (Renvela) 800 MG tablet Take 4 tablets by mouth with breakfast, with lunch, and with evening meal. 09/02/19 24 Active Lokelma 10 g packet TAKE 10 GRAMS BY MOUTH 2X A WEEK ON NON DIALYSIS DAYS 01/21/20 24 Active Velphoro 500 MG chewable tablet Chew 1 tablet with breakfast, with lunch, and with evening meal. 02/21/20 24 Active pregabalin (Lyrica) 25 MG capsule Take 1 capsule (25 mg) by mouth 2 times daily. 60 capsule 06/03/19 25 025 Active Active Problems Problem Noted Date Diagnosed [...] possible transplant in the future would like solar sales estimator to evaluate pt -referred today Seasonal allergies 01/11/2023 Assessment & Plan (01/11/2023 7:58 PM EDT): Reports seasonal allergies symptoms -px ocean spray,cetirizine 5 mg max 3 times a week Anemia 01/11/2023 Assessment & Plan (01/11/2023 8:03 PM EDT): 07/2022 Hb 9.9, AEC 597 Anemia from chronic dx f w forge helper -states getting tx w forge helper- removed from iron pills Peripheral vascular disorder [...] reports to be following with vascular at [facility] --- ---- requested record to Yariel Verma [...] and exercise,discussed healthy life style -to see manufacturing engineer supervisor referred by her endoc Abnormal EKG 08/10/2022 Assessment & Plan (01/11/2023 7:44 PM EDT): -EKG 07/2022 showed now acute ischemic findings there is QTC prolonged to 491 but noted in the past as well -states was seen by cards before unsure reason but w no major findings -found inconclusive stress test done in 2020 -Per pt has been seen by cards at [facility] -sounds possible was evaluated by cards [...] interested in implatn option --referred today w Andrea -reports hx of neg PPD done at her job in the past -vaccine: -tdap 2020 ,covid 19 monov x 3, Bivalent x1 , HPV x3, hep B x3-immune, [id number] x2 and later p13 in 2018 -will offer p20 in 2023,MMRx2,varicellax2,flu vaccine today [...] visit , HPV x3, hep B x3, [id number] x2 and later p13 in 2019 ,MMRx2,varicellax2 [...] Services needed PCP management Off-site services for [facility] was offered same-day appointments with [facility]/intake. Patient [...] self PLAN: 1. Follow up with [facility]: Not recommended for follow-up 2. Patient goal [...] Plan (01/11/2023 7:48 PM EDT): cara rowland forge helper on HD ( [place]) In eval x [...] called today CM from the hospital # [id number] and discussed pt's concern to be taken out from transplant list . EMILY states she is in process to discuss [...] Plan (08/10/2022 1:01 PM EDT): f w forge helper on HD ( ) In eval x renal/pancreatic transplant Hypertension 05/25/2022 [...] tab of 100 mg?? --px by her forge helper --advised pt to follow w her specialist to confirm dose of med Assessment & Plan (08/10/2022 12:41 PM EDT): BP at home per pt <140/90 Stopped hydralazine by her forge helper for hypotensive episodes after HD Currently denies [...] NOT having HD -her sessions are on -alarm signs and symptoms explained to pt -will need to clarify w pt if taking losartan ? -all meds refilled by her forge helper ,states dont need any meds refilled -f BP at her next apt -advised to check at home and bring readings Hyperlipidemia 09/06/2012 Proteinuria 01/09/2012 03/07/2023 DM (diabetes mellitus), type 1 with renal compli cations 04/16/1958 Assessment & Plan (01/11/2023 8:05 PM EDT): dxed w DM1 at age 11 y of age c/w nephropathy -ESRD on HD complicated w hypoglycemic events f w supervisor orchard -Dr Morro Amor on novolog SS ( 6 to 8 u TID)and lantus 18 u HS Hb1AC capillary today is 12.3<---12, LDL 86,CBG elevated today at 235 -stitcher utility referred today -opthalmo has apt for 05/2023 -sent glucose tab-before and would discuss about gluconate at next visit x emergency -continue care w her supervisor orchard -will hold on doing Changes per pt [...] HD complicated w hypoglycemic events f w supervisor orchard -Dr Morro Amor on novolog SS ( 6 to 8 u TID)and lantus 10 u HS --got today records of her last visit w endo in 07/2022 Hb1AC capillary 12 today --from last endo note had hb1AC in 07/2022 10.9? -stitcher utility referred already by her supervisor orchard -pd to abigail apt -opthalmo referral today Pt has continuous capillary glucose check marking bw 55 to 400s ----pt takes her readings to her endo office to do changes in meds -to take tomorrow to endo's office -Pd to see a coal trimmer machine operator and manufacturing engineer supervisor referred by her supervisor orchard ----pt recently got the CGM by her [...] Encounters Date Type Department Care Team Description 06/27/2024 Population Health Risk Score [facility] () Department [address] [phone] Provider, Population Health Generic 06/26/2024 Orders Only GENERIC EXTERNAL DATA DEPARTMENT Provider, Generic External Data 06/23/[address] [address] Ally Ferreira MD May recalls 06/03/[address] [address] Ally Ferreira MD 05/30/2024 11:00 AM EST Telemedicine [address] [address] Randi Marcelino, Trinh Type 1 diabetes mellitus with chronic kidney disease on chronic dialysis ([facility]) (Primary Dx); Hypertension, unspecified type; Hyperlipidemia, unspecified hyperlipidemia type 05/13/2024 10:30 AM EST Office Visit [address] [address] Rosy Dawson ANP Hospital discharge follow-up (Primary Dx); Hyperkalemia; Type 1 diabetes mellitus with chronic kidney disease on chronic dialysis ([facility]); Arm DVT (deep venous thromboembolism), acute, right ([facility]); ESRD on hemodialysis ([facility]); Elevated brain natriuretic peptide (BNP) level 05/13/2024 Travel 05/12/[address] [address] Ally Ferreira MD 04/25/[address] [address] Onur Rice PharmD [facility] Follow-up 04/24/2024 Orders Only GENERIC EXTERNAL DATA DEPARTMENT Provider, Generic External Data 04/19/[address] [address] Ally Ferreira MD History of SIVAKUMAR positive for HSV 04/14/[address] [phone] Ally Ferreira MD 04/07/2024 Patient Outreach [address] [phone] Ally Ferreira MD Transition Of Care (Tcm) (HDF- Scheduled) from Last 3 Months Immunizations Name Administration [...] [id number]-135 04/26/2007 Pfizer Covid-19 Vaccine 12+ 05/13/2024, Pneumococcal Conjugate PCV 13 08/02/2018 Pneumococcal Conjugate [...] [facility] [address] [place] [address] [phone] Ally Ferreira MD [address] [place], [place] [phone] Health Maintenance Due Date Last Done Comments Diabetes: Foot Exam 09/09/2001 Alcohol/Substance Use Screening 2003 Family Planning (PISQ) 09/09/2006 Diabetes: Hemoglobin A1C 12/07/2023 024, 04/26/2023, 01/11/2023, Additional history exists Eye Exam 06/18/2024 06/19/2023, 03/0 08/2023, 06/19/2023, Additional history exists SDOH Screening 07/18/2024 07/19/2023 Depression Screening 07/30/2024 07/31/2023, 07/31/19 24 Lipid Panel 09/05/2024 09/06/2023, 04/0 11/2023, 08/11/2022, Additional history exists Tobacco Screening [...] Whole Blood 188(H) 60 - 115 mg/dL [facility] Comment:METER #: [id number] Testing performed in the Endocrinology Department [address] , [address], [facility]. 06/26/2024 10:2 2 AM EDT 06/26/2024 10:24 AM EDT us Generic External Data Provider LAB BLOOD ORDERAB LES Final Result [facility] [address] [place] [phone] * Hepatitis C Antibody with Reflex to HCV, RNA, Quantitative, Real-Time PCR (09/06/2023 10:47 AM EDT) Hepatitis C Antibody Nonreactive Nonreactive [facility] Comment:Antibodies to HCV no t detected; does not exclude early acuteHCV infection. Blood Venous blood specimen / Unknown 09/06/2023 10:47 AM EDT 09/06/2023 10:47 AM EDT us Ally Ferguson MD LAB BLOOD ORDERAB LES Final Result Performing Organization Address [facility] Co de Phone Number [facility] [address] [place] [phone] * HIV-1/2 Antigen and Antibodies, Fourth Generation, with Reflexes (09/06/2023 10:47 AM EDT) HIV AB/AG Nonreactive Nonreactive [facility] Comment:HIV-1 p24 Ag and/or HIV-1/HIV-2 Ab not detected.A test result that is nonreactive does not exclude thepossibility of exposure to or infection with HIV-1 and/orHIV-2. Nonreactive results in this assay for individualswith prior exposure to HIV-1 and/or HIV-2 may be due toantigen and antibody levels that are below the limit ofdetection of this assay.The [facility] HIV Ag/Ab Combo assay result andsupplemental assay results should be interpreted inconjunction with the patient's clinical presentation,history and other laboratory results. If the results areinconsistent with clinical evidence, additional testing issuggested to confirm the result. Blood Venous blood specimen / Unknown 09/06/2023 10:47 AM EDT 09/06/2023 10:47 AM EDT us Ally Ferguson MD LAB BLOOD ORDERAB LES Final Result Performing Organization Address [facility]/ZIP Co de Phone Number [facility] [address] [place] [phone] * (ABNORMAL) Hemoglobin A1c (09/06/2023 10:47 AM EDT) Hemoglobin A1c 9.4(H) <6.0 % [facility] Comment:Hemoglobin A1C Refer ence Range Adults: 4.8 - 6.0 % Non diabetic: < 6.0 % Goal: < 7.0 %Additional Action Suggested: > 8.0 %Note: Hemoglobin A1c results are invalid for patients with abnormal amounts of HbF. Blood transfusions may impact the HbA1c concentration in the patient sample. Estimated Average Glucose 223 mg/dL [facility] Comment:eAG = Estimated ave rage glucose which is %A1C expressed asaverage glucose, using the formula of the N3J-TzhxsivTewtmya Glucose study (ADAG), Diabetes Care, Vol.31,#8,2007 Blood Venous blood specimen / Unknown 09/06/2023 10:47 AM EDT 09/06/2023 10:47 AM EDT us Ally Ferguson MD LAB BLOOD ORDERAB LES Final Result [facility] [address] [place] [phone] * (ABNORMAL) Lipid Panel, Standard (09/06/2023 10:47 AM EDT) Triglycerides 256(H) <150 mg/dL [facility] Comment:Desirable Triglyceri de: less than 150 mg/dLBorderline High Triglyceride 150-199 mg/dLHigh Triglyceride: 200-499 mg/dLVery High Triglyceride: greater than or equal to 5OO mg/dL Cholesterol 203(H) <200 mg/dL [facility] Comment:Desirable Cholestero l: less than 200 mg/dLBorderline High Cholesterol: 200-239 mg/dLHigh Cholesterol: greater than 239 mg/dL LDL Cholesterol Calculated 123(H) <100 mg/dL [facility] Comment:Desirable LDL: less than 100 mg/dLNear Optimal/Above Optimal LDL: 110- 129 mg/dLBorderline High LDL: 130-159 mg/dLHigh LDL: 160-189 mg/dLVery High LDL: greater than or equal to 190 mg/dL HDL Cholesterol 29(L) >40 mg/dL [facility] Comment:Desirable HDL: great er than 40 mg/dL Note: This HDL assay may give artificially low results in patients with liver disease. Blood Venous blood specimen / Unknown 09/06/2023 10:47 AM EDT 09/06/2023 10:47 AM EDT Ally Ferguson MD LAB BLOOD ORDERAB LES Final Result [facility] [address] [place] [phone] * Pap Smear (05/17/2023 12:00 AM EST) Swab [place]olia Provider LAB CYTOLOGY ORDERABLES F inal Result Performing Organization Address City/[facility]/ZIP Co de Phone Number [facility] [address] [place] [address] * HPV mRNA E6/E7 (02/03/2021 9:37 AM EDT) HPV nRNA E6/E7 Not Detected Not Detected [facility] Comment: Methodology: Stock Broker-Mediated Amplification This assay detects E6/E7 viral messenger RNA (mRNA) from 14 high-risk HPV types (16,18,31,33,35,39,45,51,52,56,58,59,66,68). ? The analytical performance characteristics of this assay have been determined by [employer]. The modifications have not been cleared or approved by the FDA. This assay has been validated pursuant to the CLIA regulations and is used for clinical purposes. ?? For additional information, please refer to http://education.weezim.com/faq/HZZ486p3 (This link if provided for information/ educational purposes only.) HPV nRNA E6/E7 Not Detected Not Detected [facility] Comment: Methodology: Stock Broker-Mediated Amplification This assay detects E6/E7 viral messenger RNA (mRNA) from 14 high-risk HPV types (16,18,31,33,35,39,45,51,52,56,58,59,66,68). ? The analytical performance characteristics of this assay have been determined by [employer]. The modifications have not been cleared or approved by the FDA. This assay has been validated pursuant to the CLIA regulations and is used for clinical purposes. ?? For additional information, please refer to http://education.Max-Viz.inDinero/faq/JBN695t4 (This link if provided for information/ educational purposes only.) 02/03/2021 9:37 AM EDT us Jen Darell CNM LAB BLOOD ORDERABLES Araceli nika Result [facility] [address] from Last 3 Months or Most Recently Relevant to Health Maintenance Insurance [facility] STANDARD MEDICARE Care Teams Motor Vehicle Lecturer Relationship Specialty Start Date End Date Ally Ferreira MD [address] [place] [address] [phone] PCP - General Internal Medicine 07/25/22
--- OUTSIDE RECORDS SUMMARY | 2024-07-03 13:03 | XMS_ITS | Encounter Summary ---
Author Organization [employer] Address [address] [place] [address] Care Team Providers Care Grass Farm Laborer Name Role Phone Ally Ferreira MD Primary Care Pro vider Reason for Visit * Reason Comments Med Refill Encounter Details Date Type Department Care Team ([facility] st Contact Info) Description 05/01/2023 Refill [facility] [address] [place], [place] [phone] Jen Lozoya, [facility] [address] [place] [address] Social History Tobacco Use Types Packs/Day Years [...] Description 09/02/2024 10:15 AM EDT Office Visit [facility] [address] [place] [phone] Ally Ferreira MD [address] [place] [phone] documented as of this encounter Visit Diagnoses Not on filedocumented in this encounter Additional Health Concerns Assessment Noted Time PHQ-9 Depression Total Score: 0 08/11/19 9:11 AM EDT documented as of this encounter Care Teams Grass Farm Laborer Relationship Specialty Start Date End Date Ally Ferreira MD [address] [place] [phone] PCP - General Internal Medicine 07/25/22 documented as of this encounter
--- OUTSIDE RECORDS SUMMARY | 2024-07-03 13:03 | XMS_ITS | Encounter Summary ---
Author Organization [employer] Address [address] [facility] [address] 7 [place] [address] Care Team Providers Care Transporter Radiology Name Role Phone Ally Ferreira MD Primary Care Pro vider Reason for Visit * Reason Onset Date Comments c/b request 01/19/2023 Encounter Details Date Type Department Care Team ([facility] st Contact Info) Description 01/19/2023 Telephone [facility] [address] [place], [place] [phone] Ally Ferreira MD [address] [place] [address] c/b request Social History Tobacco Use Types [...] transplant denial. Patient states it was at [facility] that it was denied, due to vascular problems. * Telephone Encounter - Yasmin Krishna RN - 01/23/2023 10:59 AM EDT Telephone call to regarding the following message from Dr. Perry : Please can you check with pt denial was from [facility] or from [facility]? No answer. Message was left to return call to the green team nurses. * Telephone Encounter - Jacinta Porras - 01/19/2023 1:45 PM EDT Tc from pt advising PCP pt was denied for kidney transplant. Please contact pt at [phone] documented in this encounter Plan of Treatment Upcoming Encounters Date Type Department Care Team (Late st Contact Info) Description 09/02/2024 10:15 AM EDT Office Visit [facility] [address] [place] [address] Ally Ferreira MD [address] [place] [address] documented as of this encounter Visit Diagnoses Not on filedocumented in this encounter Additional Health Concerns Assessment Noted Time PHQ-9 Depression Total Score: 0 08/11/19 9:11 AM EDT documented as of this encounter Care Teams Transporter Radiology Relationship Specialty Start Date End Date Ally Ferreira MD [address] [place] [phone] PCP - General Internal Medicine 07/25/22 documented as of this encounter
--- OUTSIDE RECORDS SUMMARY | 2024-07-03 13:03 | XMS_ITS ---
Author Organization [facility] Address [address] [place] [address] Care Team Providers Care Assistant Engineer Name Role Phone Dory Martin Unavailable [phone] Encounters Encounter Location Date Provider Diagnosis [facility] [address] [place] [address] 02/13/2023 Dory Martin Plan Of Treatment No Information Progress Notes * Mansoor MTZlDOB: 2 (33 yo F)Acc No.[id number]:02/13/2023 Progress Notes Patient:?Natali MTZ Provider:?Dory Martin DPM :1990???Age:32 Y???Sex:Female D ate:02/13/2023 [facility] Subjective: * Chief Complaints: * ??? * Medical History:? Objective: * Vitals:? Assessment: Plan: * Treatment: * Images: * The named appointment provid er may or may not be the originator of this progress note, and it is not deemed complete until electronically signed by the appointment provider. Sign off status: Pending * Provider:?Dory Martin DPM Date:? Generated for Enoc mckinney/Siri/Erickitting on:?07/03/2024 01:02 PM EDT
--- OUTSIDE RECORDS SUMMARY | 2024-07-03 13:03 | XMS_ITS | Encounter Summary ---
Author Organization [facility] Address [address] [place] [address] Care Team Providers Care Navy Material Inspector Name Role Phone Ally Ferreira Primary Care Provider [phone] Encounter Details Date Type Department Care Team (Late st Contact Info) Description 12/02/2019 Orders Only [facility] Nuclear Medicine [address] [place] [address] Shiva Duran MD [address] [place] [phone] Social History Tobacco Use Types Packs/Day Years [...] Description 01/27/2025 11:00 AM EDT Social Work [facility] Renal Transplant [address] [place] [address] Chani Vargas LICSW [address] [place] [address] 02/24/2025 10:20 AM EST Follow-Up [facility] Renal Transplant [address] [place] [address] Vinicio Harris MD [address] [place] [address] documented as of this encounter Visit Diagnoses Not on filedocumented in this encounter Care Teams Navy Material Inspector Relationship Specialty Start Date End Date Ally Ferreira [address] [place] [phone] PCP - General 02/04/24 documented as of this encounter
--- OUTSIDE RECORDS SUMMARY | 2024-07-03 13:03 | XMS_ITS | Encounter Summary ---
Author Organization [facility] Address [address] [place] [address] Care Team Providers Care Mandarin Speaking Nanny Name Role Phone Ally Ferreira Primary Care Provider [phone] Encounter Details Date Type Department Care Team (Late st Contact Info) Description 02/22/2024 Orders Only [facility] Nuclear Medicine [address] [place] [phone] Victor Manuel Corado MD PhD [address] [place], [place] [phone] Social History Tobacco Use Types Packs/Day Years [...] EDT Social Work [facility] Renal Transplant [address] [place] [address] Chani Vargas LICSW [address] [place] [address] 02/24/2025 10:20 AM EST Follow-Up [facility] Renal Transplant [address] [place] [address] Vinicio Harris MD [address] [place] [address] documented as of this encounter Visit Diagnoses Not on filedocumented in this encounter Care Teams Mandarin Speaking Nanny Relationship Specialty Start Date End Date Ally Ferreira [address] [place] [phone] PCP - General 02/04/24 documented as of this encounter
--- OUTSIDE RECORDS SUMMARY | 2024-07-03 13:03 | XMS_ITS | Encounter Summary ---
Author Organization [facility] Address [address] [place] [address] Phone Care Team Providers Care Falafel Cart Cook Name Role Phone Azucena Bradley MD Primary Care Provider [phone] Reason for Visit * Reason Comments Med Refill Encounter Details Date Type Department Care Team (Late st Contact Info) Description 12/25/2021 Refill [facility] [address] [place] [address] Forrest Adamson MD Social History Tobacco [...] on filedocumented in this encounter Care Teams Falafel Cart Cook Relationship Specialty Start Date End Date Azucena Bradley MD [address] [place] [address], [facility] [address] [place] [address] PCP - General Internal Medicine 01/22/24 documented as of this encounter
--- OUTSIDE RECORDS SUMMARY | 2024-07-03 13:03 | XMS_ITS | Encounter Summary ---
Author Organization [employer] Address 75 [facility] 7 [place] [address] Care Team Providers Care Waterproofing Mixer Name Role Phone Ally Ferreira MD Primary Care Pro vider Reason for Visit * Reason Onset Date Comments May recalls 06/23/2024 Encounter Details Date Type Department Care Team ([facility] st Contact Info) Description 06/23/2024 Telephone [facility] MEDICINE [address] [place], [place] [phone] Ally Ferreira MD [address] [place] [address] May recalls Social History Tobacco Use Types [...] Description 09/02/2024 10:15 AM EDT Office Visit [facility] [address] [place] [address] Ally Ferreira MD [address] [place] [phone] documented as of this encounter Visit Diagnoses Not on filedocumented in this encounter Additional Health Concerns Assessment Noted Time PHQ-9 Depression Total Score: 0 07/31/19 24 11:09 AM EDT documented as of this encounter Care Teams Waterproofing Mixer Relationship Specialty Start Date End Date Ally Ferreira MD [address] [place] [phone] PCP - General Internal Medicine 07/25/22 documented as of this encounter
--- OUTSIDE RECORDS SUMMARY | 2024-07-03 13:03 | XMS_ITS | Encounter Summary ---
Author Organization [employer] Address 75 [facility] 7 [place] [address] Care Team Providers Care Regasification Plant Operator Name Role Phone Ally Ferreira MD Primary Care Pro vider Reason for Visit * Reason Onset Date Comments New Med Request 06/03/2024 Encounter Details Date Type Department Care Team (Late st Contact Info) Description 06/03/2024 Refill [facility] MEDICINE [address] [place], [place] [phone] Ally Ferreira MD [address] [place] [address] Social History Tobacco Use Types Packs/Day Years [...] MG capsules. This medication was prescribed by [facility] during recent hospital stay from 03/31-04/01. 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 The pt does confirm that this medication has been helping her symptoms and ADL's have been much easier. This is documented under HD[facility] appt the pt had with Rosy Dawson on 05/13/2024. Pt has never been prescribed this by a [facility] provider and Rosy Dawson and Dr. Perry [...] Description 09/02/2024 10:15 AM EDT Office Visit [facility] MEDICINE [address] [place] [address] Ally Ferreira MD [address] [place] [address] documented as of this encounter Visit Diagnoses Not on filedocumented in this encounter Additional Health Concerns Assessment Noted Time PHQ-9 Depression Total Score: 0 07/31/19 24 11:09 AM EDT documented as of this encounter Care Teams Regasification Plant Operator Relationship Specialty Start Date End Date Ally Ferreira MD [address] [place], [place] [phone] PCP - General Internal Medicine 07/25/22 documented as of this encounter
--- OUTSIDE RECORDS SUMMARY | 2024-07-03 13:03 | XMS_ITS | Encounter Summary ---
Author Organization [employer] Address 75 [facility] 7t [place] [address] Care Team Providers Care Cmo Name Role Phone Duke Viri LIZZETH Primary Care Provider [phone] Ally Ferreira MD Primary Care Pro vider Reason for Visit * Reason Comments Med Refill Encounter Details Date Type Department Care Team (Late st Contact Info) Description 06/06/2022 Refill [facility] MEDICINE 230 [place] [address] Adelaide Cano DO [address] [place] [address] Social History Tobacco Use Types Packs/Day Years [...] AM EST T/C placed to pt via [employer] #[id number]. 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 Advised will update provider. documented in this encounter Plan of Treatment Upcoming Encounters Date Type Department Care Team (Late st Contact Info) Description 09/02/2024 10:15 AM EDT Office Visit [facility] MEDICINE [address] [place] [address] Ally Ferreira MD [address] [place] [address] [phone] documented as of this encounter Visit Diagnoses Not on filedocumented in this encounter Care Teams Cmo Relationship Specialty Start Date End Date Viri Wall FNP [address] [place] [address] [phone] PCP - General Family Medicine 06/06/22 07/24/22 Ally Ferreira MD [address] [place] [address] [phone] PCP - General Internal Medicine 07/25/22 documented as of this encounter
--- OUTSIDE RECORDS SUMMARY | 2024-07-03 13:03 | XMS_ITS | Encounter Summary ---
Author Organization [employer] Address 75 [facility] 7 [place] [address] Care Team Providers Care Doughnut Icer Machine Name Role Phone Ally Ferreira MD Primary Care Pro vider Reason for Visit * Reason Onset Date Comments Referral 05/01/2023 Encounter Details Date Type Department Care Team ([facility] st Contact Info) Description 05/01/2023 Telephone [facility] MEDICINE [address] [place], [place] [phone] Ally Ferreira MD 230 [place] [address] Referral Social History Tobacco Use Types Packs/Day [...] Description 09/02/2024 10:15 AM EDT Office Visit [facility] MED[facility]INE [address] [place] [address] Ally Ferreira MD [address] [place] [phone] documented as of this encounter Visit Diagnoses Not on filedocumented in this encounter Additional Health Concerns Assessment Noted Time PHQ-9 Depression Total Score: 0 08/11/19 9:11 AM EDT documented as of this encounter Care Teams Doughnut Icer Machine Relationship Specialty Start Date End Date Ally Ferreira MD [address] [place] [phone] PCP - General Internal Medicine 07/25/22 documented as of this encounter
--- OUTSIDE RECORDS SUMMARY | 2024-07-03 13:03 | XMS_ITS | Encounter Summary ---
Author Organization [facility] Address [address] [place] [address] Phone Care Team Providers Care Character Impersonator Name Role Phone Azucena Bradley MD Primary Care Provider [phone] Reason for Visit * Reason Comments Med Refill Encounter Details Date Type Department Care Team (Late st Contact Info) Description 12/24/2021 Refill [facility] [address] [place] [address] Forrest Adamson MD Social History Tobacco [...] on filedocumented in this encounter Care Teams Character Impersonator Relationship Specialty Start Date End Date Azucena Bradley MD [address] [place] [address], [facility] 3 [place] [address] PCP - General Internal Medicine 01/22/24 documented as of this encounter
--- OUTSIDE RECORDS SUMMARY | 2024-07-03 13:03 | XMS_ITS | Encounter Summary ---
Author Organization [facility] Address [address] [place] [address] Phone Care Team Providers Care Telecommunication Tower Technician Name Role Phone Azucena Bradley MD Primary Care Provider [phone] Reason for Visit * Reason Comments Med Refill Encounter Details Date Type Department Care Team (Late st Contact Info) Description 06/14/2021 Refill [facility] [address] [place] [address] Forrest Adamson MD Social History Tobacco [...] on filedocumented in this encounter Care Teams Telecommunication Tower Technician Relationship Specialty Start Date End Date Azucena Bradley MD [address] [place] [address], [facility] 3 [place] [address] PCP - General Internal Medicine 01/22/24 documented as of this encounter
--- OUTSIDE RECORDS SUMMARY | 2024-07-03 13:03 | XMS_ITS | Encounter Summary ---
Author Organization [facility] Address [address] [place] [address] Care Team Providers Care Hearing Aid Technician Name Role Phone Ally Ferreira Primary Care Provider [phone] Encounter Details Date Type Department Care Team (Late Contact Info) Description 06/20/2024 Telephone [facility] Transplant Department [address] [place], [place] [phone] Sabina Velázquez RN 55 [place], [place] [phone] Social History Tobacco Use Types Packs/Day Years [...] RN - 06/20/2024 4:05 PM EST Called [facility] to follow up on delinquent Monthly Sample for transplant and went [employer] mail. Detailed message left with request to draw the sample as soon as possible if it has notbeen drawn. One time order placed documented in this encounter Plan of Treatment Upcoming Encounters Date Type Department Care Team (Late st Contact Info) Description 01/27/2025 11:00 AM EDT Social Work [facility]plant [address] [place] [address] Chani Vargas LICSW 55 [place] [address] 02/24/2025 10:20 AM EST Follow-Up [facility]plant [address] [place] [address] Vinicio Harris MD 55 [place] [address] documented as of this encounter Visit Diagnoses Not on filedocumented in this encounter Care Teams Hearing Aid Technician Relationship Specialty Start Date End Date Ally Ferreira [address] [place] [phone] PCP - General 02/04/24 documented as of this encounter
--- OUTSIDE RECORDS SUMMARY | 2024-07-03 13:03 | XMS_ITS | Encounter Summary ---
Author Organization [employer] [facility] Address 75 [facility] 7t [place] [address] Care Team Providers Care Master Cook Name Role Phone Ally Ferreira MD Primary Care Pro vider Encounter Details Date Type Department Care Team ([facility] st Contact Info) Description 06/27/2024 Population Health Risk Score [facility] (C3) Department 75 [facility] 7 [place] [address] Provider, Population Health Generic Social History Tobacco Use Types Packs/Day Years [...] [facility] MED[facility]INE [address] [place] [address] [phone] Ally Ferreira MD [address] [place] [address] [phone] documented as of this encounter Visit Diagnoses Not on filedocumented in this encounter Additional Health Concerns Assessment Noted Time PHQ-9 Depression Total Score: 0 07/31/19 24 11:09 AM EDT documented as of this encounter Care Teams Master Cook Relationship Specialty Start Date End Date Ally Ferreira MD [address] [place] [address] [phone] PCP - General Internal Medicine 07/25/22 documented as of this encounter
--- OUTSIDE RECORDS SUMMARY | 2024-07-03 13:03 | XMS_ITS | Clinical Summary ---
Author Organization [facility] Address [address] [place] [phone] Phone Care Team Providers Care Leaf Sorter Name Role Phone Azucena Bradley MD Primary Care Provider [phone] Medications losartan (COZAAR) 50 MG tablet TAKE [...] Encounters Date Type Department Care Team Description 07/02/2024 Treatment [facility] [address] [phone] Atul Burton MD End stage renal disease; Dependence on renal dialysis 06/30/2024 Treatment [facility] [address] [phone] Atul Burton MD End stage renal disease; Dependence on renal dialysis 06/18/2024 Treatment [facility] [address] [phone] Atul Burton MD End stage renal disease; Dependence on renal dialysis 06/13/2024 Treatment [facility] [address] [address] Atul Burton MD End stage renal disease; Dependence on renal dialysis 05/28/2024 Treatment [facility] [address] [address] Atul Burton MD 05/26/2024 Treatment [facility] [address] [address] Atul Burton MD 05/21/2024 Orders Only [facility] [address] [address] Atul Burton MD 05/19/2024 Treatment [facility] [address] [address] Atul Burton MD 05/16/2024 Treatment [facility] [address] [address] Atul Burton MD 05/14/2024 Treatment [facility] [address] [address] Atul Burton MD 05/07/2024 Treatment [facility] [address] [address] Atul Burton MD 04/18/2024 Treatment [facility] [address] [address] Atul Burton MD 04/15/2024 Treatment [facility] [address] [address] Atul Burton MD 04/08/2024 Treatment [facility] 3550 [facility] 204 [place] [address] Atul Burton MD from Last 3 Months [...] Procedure Name Priority Date/Time Associated Diagnosis Comments [facility] () Routine 06/30/2024 3:00 AM EDT PHOSPHATE ( PHOSPHORUS) Routine 06/30/2024 3:00 AM EDT TRANSFERRIN SATURATION Routine 3:00 AM EST PROTEIN, [...] AND DIFFERENTIAL Routine 04/23/2024 3:00 AM EST from Last 3 Months Results * LIH (06/30/2024 3:00 AM EDT) Only the most recent of6 resultswithin the time period is included. Lipemia Normal Normal [facility] Icterus Normal Normal [facility] Hemolysis Normal Normal [facility] 06/30/2024 3:00 AM EDT 07/01/2024 12:12 PM EDT us Atul Burton MD LAB [id number] SOLICITED RESULTS Final Result [facility]PS [facility] [address] [place] [address] * (ABNORMAL) Phosphorus (06/30/2024 3:00 AM EDT) Only the most recent of3 resultswithin the time period is included. Phosphorus, Serum 10.1(H) 2.5 - 5.0 mg/dL [facility] 06/30/2024 3:00 AM EDT 07/01/2024 12:12 PM EDT Atul Burton MD LAB BLOOD ORDERABLES Final Re sult Performing Organization Address [facility]/ZIP Co de Phone Number [facility] [address] [place] [address] * (ABNORMAL) Kt/V Natural Log, URR (06/18/2024 [...] 2:50 PM EST Atul Burton MD LAB [id number] SOLICITED RESULTS Final Result Performing Organization Address [facility]/ZIP Co de Phone Number [facility] [address] [place] [address] * (ABNORMAL) Calcium Phosphorus Product, Adjusted (06/18/2024 [...] 3:00 AM EST 06/19/2024 2:53 PM EST Autl Burton MD LAB [id number] SOLICITED RESULTS Final Result Performing Organization Address [facility] de Phone Number [facility] [address] [place] [address] * (ABNORMAL) TSAT (06/18/2024 3:00 AM EST) Only the most recent of3 resultswithin the time period is included. Pathologist [facility] Iron 47(L) 50 - 170 ug/dL [facility] Transferrin 112(L) 250 - 380 mg/dL [facility] TIBC 157(L) 211 - 406 ug/dL [facility] Iron Saturation (TSat) 30 22 - 52 % [facility] 06/18/2024 3:00 AM EST 06/19/2024 2:53 PM EST Atul Burton MD LAB BLOOD ORDERABLES Final Re sult Performing Organization Address [facility] de Phone Number [facility] [address] [place] [address] * (ABNORMAL) CBC and Differential (06/18/2024 3:00 [...] ORDERABLES Final Re sult Performing Organization Address [facility] de Phone Number [facility] [address] [place] [address] * ALT (06/18/2024 3:00 AM EST) Only the most recent of3 resultswithin the time period is included. ALT (SGPT) 18 10 - 49 U/L [facility] 06/18/2024 3:00 AM EST 06/19/2024 2:53 PM EST Atul Burton MD LAB BLOOD ORDERABLES Final Re sult Performing Organization Address [facility] de Phone Number [facility] [address] [place] [address] * AST (06/18/2024 3:00 AM EST) Only the most recent of3 resultswithin the time period is included. AST (SGOT) 15 <34 U/L [facility] 06/18/2024 3:00 AM EST 06/19/2024 2:53 PM EST Atul Burton MD LAB BLOOD ORDERABLES Final Re sult Performing Organization Address [facility] Co de Phone Number [facility] [address] [place] [address] * Protein, total (06/18/2024 3:00 AM EST) Only the most recent of3 resultswithin the time period is included. Total Protein 7.6 6.4 - 8.9 g/dL [facility] 06/18/2024 3:00 AM EST 06/19/2024 2:53 PM EST Atul Burton MD LAB BLOOD ORDERABLES Final Re sult Performing Organization Address [facility] de Phone Number [facility] [address] [place] [address] * Alkaline phosphatase (06/18/2024 3:00 AM EST) Only the most recent of3 resultswithin the time period is included. Alkaline Phosphatase 111 46 - 116 U/L [facility] 06/18/2024 3:00 AM EST 06/19/2024 2:53 PM EST Atul Burton MD LAB BLOOD ORDERABLES Final Re sult Performing Organization Address [facility] de Phone Number [facility] [address] [place] [address] * Magnesium (06/18/2024 3:00 AM EST) Only the most recent of3 resultswithin the time period is included. Magnesium 2.4 1.9 - 2.7 mg/dL [facility] 06/18/2024 3:00 AM EST 06/19/2024 2:53 PM EST Atul Burton MD LAB BLOOD ORDERABLES Final Re sult Performing Organization Address [facility] Co de Phone Number [facility] [address] [place] [address] * (ABNORMAL) Lactate dehydrogenase (06/18/2024 3:00 AM EST) Only the most recent of3 resultswithin the time period is included. LDH 283(H) 120 - 246 U/L [facility] 06/18/2024 3:00 AM EST 06/19/2024 2:53 PM EST Atul Burton MD LAB BLOOD ORDERABLES Final Re sult Performing Organization Address [facility] Co de Phone Number [facility] [address] [place] [address] * (ABNORMAL) Glucose, random (06/18/2024 3:00 AM EST) Only the most recent of3 resultswithin the time period is included. Glucose 182(H) 74 - 109 mg/dL [facility] 06/18/2024 3:00 AM EST 06/19/2024 2:53 PM EST Atul Burton MD LAB BLOOD ORDERABLES Final Re sult Performing Organization Address [facility] de Phone Number [facility] [address] [place] [address] * (ABNORMAL) Ferritin (06/18/2024 3:00 AM EST) Only the most recent of3 resultswithin the time period is included. Ferritin 1,023(H) 10 - 291 ng/mL [facility] 06/18/2024 3:0 0 AM EST 06/19/2024 2:53 PM EST Atul Burton MD LAB BLOOD ORDERABLES Final Re sult Performing Organization Address [facility] de Phone Number [facility] [address] [place] [address] * (ABNORMAL) Creatinine, serum (06/18/2024 3:00 AM EST) Only the most recent of3 resultswithin the time period is included. Creatinine 10.15(H) 0.55 - 1.02 mg/dL [facility] 06/18/2024 3:00 AM EST 06/19/2024 2:53 PM EST Atul Burton MD LAB BLOOD ORDERABLES Final Re sult Performing Organization Address [facility] de Phone Number [facility] [address] [place] [address] * (ABNORMAL) Bilirubin, total (06/18/2024 3:00 AM EST) Only the most recent of3 resultswithin the time period is included. Total Bilirubin <0.2(L) 0.3 - 1.2 mg/dL [facility] 06/18/2024 3:00 AM EST 06/19/2024 2:53 PM EST Atul Burton MD LAB BLOOD ORDERABLES Final Re sult Performing Organization Address [facility] de Phone Number [facility] [address] [place] [address] * (ABNORMAL) Electrolyte panel (06/18/2024 3:00 AM [...] ORDERABLES Final Re sult Performing Organization Address [facility] de Phone Number [facility] [address] [place] [address] * (ABNORMAL) Hemoglobin (06/09/2024 3:00 AM EST) Only the most recent of3 resultswithin the time period is included. [facility] Hgb 8.1(L) 11.2 - 15.7 g/dL [facility] Hemoglobin x 3 24.3(L) 33.6 - 47.1 g/dL [facility] 06/09/2024 3:00 AM EST 06/10/2024 12:25 PM EST Atul Burton MD LAB BLOOD ORDERABLES Final Re sult Performing Organization Address [facility] de Phone Number [facility] [address] [place] [address] * Confirmation Test HCV (04/23/2024 3:00 AM EST) [facility] Hep C Ab Confirmation Not needed [facility] 04/23/2024 3:00 AM EST 04/24/2024 1:05 PM EST Atul Burton MD LAB BLOOD ORDERABLES Final Re sult Performing Organization Address [facility] de Phone Number [facility] [address] [place] [address] * HEPATITIS C ABS W/REFLEX RNA DETECTR (04/23/2024 3:00 AM EST) [facility] Hep C Virus Ab Non-Reacti ve Non-Reacti ve [facility] 04/23/2024 3:00 AM EST 04/24/2024 1:15 PM EST Atul Burton MD LAB [id number] SOLICITED RESULTS Final Result Performing Organization Address [facility] de Phone Number [facility] [address] [place] [address] * Hepatitis B Surface Ag w/Reflex Confirmation (04/23/2024 3:00 AM EST) [facility] Hep B Surface Antigen Negative Negative [facility] 04/23/2024 3:00 AM EST 04/24/2024 1:15 PM EST us Atul Burton MD LAB BLOOD ORDERABLES Final Re sult Performing Organization Address [facility]/ZIP Co de Phone Number [facility] [address] [place] [address] * Aluminum level (04/23/2024 3:00 AM EST) Aluminum 7 1 - 20 ug/L [facility] 04/23/2024 3:00 AM EST 04/24/2024 1:14 PM EST Atul Burton MD LAB BLOOD ORDERABLES Final Re sult Performing Organization Address [facility] Co de Phone Number [facility] [address] [place] [address] * Hepatitis B Surface Antibody (04/23/2024 3:00 AM EST) Hep B Surface Antibody 124 mIU/mL [facility] Comment: Interpretation: <10: No Immunity >=10: Probable Immunity 04/23/2024 3:00 AM EST 04/24/2024 1:15 PM EST Atul Burton MD LAB BLOOD ORDERABLES Final Re sult Performing Organization Address [facility] de Phone Number [facility] [address] [place] [address] * Uric Acid (04/23/2024 3:00 AM EST) Uric Acid 5.1 2.3 - 6.6 mg/dL [facility] 04/23/2024 3:00 AM EST 04/24/2024 1:15 PM EST Atul Burton MD LAB BLOOD ORDERABLES Final Re sult Performing Organization Address [facility] Co de Phone Number [facility] [address] [place] [address] * PTH, Intact (04/23/2024 3:00 AM EST) PTH, Intact 404 160 - 721 pg/mL [facility] Comment: Suggested (KDIGO) ESRD maintenance range is two to nine times the upper normal limit (80.1 pg/mL) for the laboratory. 04/23/2024 3:00 AM EST 04/24/2024 1:15 PM EST Atul Burotn MD LAB BLOOD ORDERABLES Final Re sult Performing Organization Address [facility] de Phone Number [facility] [address] [place] [address] * (ABNORMAL) Hemoglobin A1c (04/23/2024 3:00 AM [...] ORDERABLES Final Re sult Performing Organization Address [facility] de Phone Number [facility] [address] [place] [address] * (ABNORMAL) Lipid panel (04/23/2024 3:00 AM [...] Final Re sult [facility] [address] [place] [address] from Last 3 Months Insurance [place]ICAID [place] MEDICARE [place]ICAID [place] MEDICARE Care Teams Leaf Sorter Relationship Specialty Start Date End Date Azucena Bradley MD [address] [place] [address], Floor [address] [place] [address] PCP - General Internal Medicine 01/22/24
--- OUTSIDE RECORDS SUMMARY | 2024-07-03 13:03 | XMS_ITS | Encounter Summary ---
Author Organization [employer] Address [address] [place] [address] [facility] [place] [address] Care Team Providers Care Pier Master Name Role Phone Ally Ferreira MD Primary Care Pro vider Reason for Visit * Reason Comments Med Change Request Encounter Details Date Type Department Care Team (Late Contact Info) Description 01/13/2023 Refill [facility] [address] [place] [address] [phone] Ally Ferreira MD [address] [place] [address] [phone] Social History Tobacco Use Types Packs/Day Years [...] Description 09/02/2024 10:15 AM EDT Office Visit [facility] [address] [place] [address] [phone] Ally Ferreira MD [address] [place], [place] [phone] documented as of this encounter Visit Diagnoses Not on filedocumented in this encounter Additional Health Concerns Assessment Noted Time PHQ-9 Depression Total Score: 0 08/11/19 9:11 AM EDT documented as of this encounter Care Teams Pier Master Relationship Specialty Start Date End Date Ally Ferreira MD [address] [place] [id number] PCP - General Internal Medicine 07/25/22 documented as of this encounter
--- OUTSIDE RECORDS SUMMARY | 2024-07-03 13:03 | XMS_ITS | Encounter Summary ---
Author Organization [employer] Address [address] 7[address] [place] [address] Care Team Providers Care Cell Tender Name Role Phone Viri Wall Primary Care Provider [phone] Ally Ferreira MD Primary Care Pro vider Reason for Visit * Reason Comments Med Refill Encounter Details Date Type Department Care Team (Late st Contact Info) Description 06/06/2022 Refill [facility] [address] [place], [place] [phone] Name, MD Dain [address] [place] [address] Primary hypertension (Primary Dx) Social History Tobacco [...] Description 09/02/2024 10:15 AM EDT Office Visit [facility] [address] [place] [address] Ally Ferreira MD [address] [place], [place] [phone] documented as of this encounter Visit Diagnoses Diagnosis Primary hypertension- Primary Unspecified essential hypertension documented in this encounter Care Teams Cell Tender Relationship Specialty Start Date End Date Viri Wall FNP [address] [place] [address] [phone] PCP - General Family Medicine 06/06/22 07/24/22 Ally Ferreira MD [address] [place] [address] [phone] PCP - General Internal Medicine 07/25/22 documented as of this encounter
--- OUTSIDE RECORDS SUMMARY | 2024-07-03 13:03 | XMS_ITS | Encounter Summary ---
Author Organization [employer] Address [address] [facility] [address] 7[address] [place] [address] Care Team Providers Care Gear Technician Name Role Phone Ally Ferreira MD Primary Care Pro vider Reason for Visit * Reason Comments Med Refill Encounter Details Date Type Department Care Team ([facility] Contact Info) Description 09/02/2022 Refill [facility] [address] [place] [address] Blair Lopez AGNP Hypertension, unspecified [...] Upcoming Encounters Date Type Department Care Team ([facility] Contact Info) Description 09/02/2024 10:15 AM EDT Office Visit [facility] [address] [place] [address] Ally Ferreira MD [address] [place] [address] documented as of this encounter Visit Diagnoses Diagnosis Hypertension, unspecified type documented in this encounter Additional Health Concerns Assessment Noted Time PHQ-9 Depression Total Score: 0 08/11/19 9:11 AM EDT documented as of this encounter Care Teams Gear Technician Relationship Specialty Start Date End Date Ally Ferreira MD [address] [place] [address] PCP - General Internal Medicine 07/25/22 documented as of this encounter
--- OUTSIDE RECORDS SUMMARY | 2024-07-03 13:03 | XMS_ITS | Referral Summary ---
Author Organization [facility] Address [address] [place] [address] Care Team Providers Care Tomographic Tech Name Role Phone Ally Ferreira Primary Care Provider [phone] Encounters Date Type Department Care Team Description 06/20/2024 Orders Only [facility] Transplant Department [address] [place] [address] Sabina Velázquez RN ESRD (end stage renal disease) (Primary Dx); Pre-transplant evaluation for kidney transplant 06/20/2024 Telephone [facility] Transplant Department [address] [place], [place] [phone] Sabina Velázquez RN from Last 3 Months Allergies Active Allergy [...] 1 each 3 3 Active Dexcom G6 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 E10.65 1 each [...] Covid-19 Monovalent Vaccine, Moderna, mRNA, PF 07/09/2020,05/26/2020 [id number] 05/05/1993,02/22/1993,12/22/1992 Diphtheria, Tetanus Toxoids and Acellular Pertussis [...] Description 01/27/2025 11:00 AM EDT Social Work [facility] Renal Transplant [address] [place] [address] Chani Vargas LICSW [address] [place] [address] 02/24/2025 10:20 AM EST Follow-Up [facility] Renal Transplant [address] [place] [address] Vinicio Harris MD [address] [place] [address] Procedures * Due to [place] state law, this organization might not be [...] to Health Maintenance Results * Due to [place] state law, this organization might not be sharing negative HIV tests. * (ABNORMAL) POCT Glycosylated Hemoglobin (HGB A1C), interfaced (02/27/2023 1:05 PM EST) Hemoglobin A1C, POCT 10.6(H) <=5.6 % 02/27/2023 1:20 PM EST [facility] Comment: A1C Recommendation for Non- Adults with Diabetes: <7.0% ADA 2011 Standards of Medical Care in Diabetes Blood 02/27/2023 1:05 PM EST 02/27/2023 1:20 PM EST us Robert Meredith MD LAB POCT ORDERABLES - DEVICE Final Result [facility], POC [address] [place] [address], * (ABNORMAL) Basic Metabolic Panel, Outside Lab (11/21/2022) Sodium 134 mmol/L Potassium 4.2 Chloride 90 Carbon Dioxide 29 BUN 42(H) mg/dL Creatinine 8.04(H) mg/dL Calcium 9.2 mg/dL Blood Structure of peripheral vein / Unknown 11/21/2022 us Unknown Provider LAB BLOOD ORDERABLES Final R esult * Hepatitis C Antibody w/Reflex to HCV RNA, Quantitative PCR (11/30/2020 11:09 AM EDT) Hepatitis C Antibody NON-REACT JOSE RAFAEL NON-REACT JOSE RAFAEL 12/01/2020 8:37 AM EDT [facility] Signal To Cut-Off 0.02 <1.00 12/01/2020 8:37 AM EDT [facility] Comment: HCV antibody was non-reactive. There is no laboratory evidence of HCV infection. In most cases, no further action is required. However, if recent HCV exposure is suspected, a test for HCV RNA (test code 71713) is suggested. For additional information please refer to http://education.FX Bridge/faq/ZZY32v4 (This link is being provided for informational/ educational purposes only.) Blood Structure of peripheral vein / Unknown Venipuncture / Unknown 11/30/2020 11:09 AM EDT 11/30/2020 11:33 AM EDT [facility] DILIP GILLETTE - 12/01/2020 8:37 AM EDT [facility] Received Date: Stefan Robbins MD LAB BLOOD ORDERABLES Final Result [facility] [address] [facility] 3rd [address], [place] [address], 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
--- OUTSIDE RECORDS SUMMARY | 2024-07-03 13:03 | XMS_ITS ---
Author Organization [facility] Address [address] [place] [address] Care Team Providers Care Nursing Care Partner Name Role Phone Ally Ferreira Primary Care Provider [phone] Transplant Episode Kidney Candidate [facility] ([place], [place]) - [facility] waitlisted on 12/29/2019 Marked as Active on 03/21/2023 Kidney CoordinatorTadwain Velázquez RN Email: N/A Scores Score Value Updated Exceptions/Reas ons CPRA 3 06/23/2024 EPTS (Calc) 35 07/03/2024 [place] Organ Diagnosis Organ Primary Contributory Kidney Diabetes Mellitus - Type I Infection History Noted Survival Infection Treatment Organism Resolved 12/17/2019 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 Geriatric Case Manager [phone] [email or web address] Forrest Adamson Referring Physician [phone] N/A Events Pre-Transplant Referred: 06/26/2019 Evaluation began: 12/01/2019 Committee: 12/03/2019 [facility] qualified: 07/15/2018 Center waitlisted: 12/29/2019 Dialysis History Dialysis History Start End Type Comments Center 07/15/2018 In-center Hemodialysis [facility] Dialysis Center Information Center Phone Fax Address [facility] [phone] [address] [facility] [address] SH[place] [address]
--- OUTSIDE RECORDS SUMMARY | 2024-07-03 13:03 | XMS_ITS | Encounter Summary ---
Author Organization [facility] Address [address] [place] [phone] Phone Care Team Providers Care Weigher Bulker Name Role Phone Azucena Bradley MD Primary Care Provider [phone] Encounter Details Date Type Department Care Team (Late st Contact Info) Description 07/02/2024 Treatment [facility]. [address] [address] Edwina Min MD [address] [address] End stage renal disease; Dependence [...] Dialysis Note - Edwina Min MD - 07/02/2024 12:00 AM EDT Patient: Natali Mtz : 1990 Note Type: Dialysis Rounds-Basic Service Date: 07/02/2024 This patient was personally seen for a basic visit as part of routine monthly dialysis care for end stage renal disease. Attending Clay Artisan: EDWINA MIN MD Dialysis Location: [facility] Schedule: Shift: 2 ADEQUACY ASSESSMENT Kt/V, [...] 06/18/24 10.0 05/21/24 9.3 04/23/24 Phosphorus, Serum 10.1 06/30/24 6.7 06/18/24 8.5 06/04/24 Ca*PO4 67.7 06/18/24 78.0 05/21/24 74.4 04/23/24 [...] getting w/u to get on xplannt list 07/02/24 stable 04/15/24 stable 04/18/24 doing well 12/19/23 [...] stable Signed by: EDWINA MIN MD on 07/03/2024 at 04:37:34 AM documented in this encounter Plan of Treatment Not on file documented as of this encounter Visit Diagnoses Diagnosis End stage renal disease Dependence on renal dialysis documented in this encounter Care Teams Weigher Bulker Relationship Specialty Start Date End Date Azucena Bradley MD [address] [place] [address], Floor [address] [place] [address] PCP - General Internal Medicine 01/22/24 documented as of this encounter
== END 2024-07-03 11:03 | disposition home or self-care (01) ==
LOC: HO.RESP 11:02
PROVIDERS: PCP Student in an Organized Health Care Education/Training Program; Visit Provider Hospitalist
DX: R06.00 Dyspnea, unspecified (principal)
CPT/HCPCS: 94010; 94640; 94727; 94729

== ENCOUNTER → 2024-07-03 11:24 | Outpatient (BNV) | payer MEDICARE, MEDICAID, SELFPAY | PROVIDERS: PCP Student in an Organized Health Care Education/Training Program; Visit Provider Internal Medicine Pulmonary Disease | DX: R06.00 Dyspnea, unspecified (principal) | CPT/HCPCS: 94060; 94727; 94729 ==

== ENCOUNTER 2024-07-17 10:24 | Outpatient (AMB) | payer MEDICARE, MEDICAID, SELFPAY ==
[2024-07-17 10:35] VITALS: BP 102/68; PULSE 83; O2SAT 99; BMI 29.8
--- NOTE | 2024-07-17 10:35 | A.OFFVIS_ITS ---
Vital Signs 07/17/24 10:35 Height 5 ft 1 in Weight 157 lb 10.088 oz BMI 29.8 BP 102/68 Blood Pressure Location Lt brachial Position Sitting Pulse 83 Pulse Source Pulse Oximeter Pulse Oximetry (%) 99 Oxygen Delivery Method Room Air Intake Visit Reasons: Pulmonary Nodules Grounds Manager Required: No Allergies icodextrin Allergy (Mild, Verified 07/17/24 10:37) Rash oxycodone Adverse Reaction (Severe, Verified 07/17/24 10:37) rash tramadol Adverse Reaction (Severe, Verified 07/17/24 10:37) rash CLOROXINE Allergy (Unknown, Uncoded 07/17/24 10:37) RASH HPI Comments Details: The patient is a 33 year woman with known end-stage renal disease on dialysis who apparently has been evaluated for kidney transplantation. As part of the workup the patient did undergo CT scan of the abdomen noting some small right lower lobe pulmonary nodules on the lung windows. Some of the nodules appear to be more of 3 in but. Therefore, the patient was referred to Pulmonary. Currently patient denies any significant shortness of breath. She does have significant nasal congestion and she does have underlying allergies. She has a hard time breathing because of the significant nasal congestion. The patient had been receiving allergy shots in the past. She denies any significant wheezing. The patient does not have any inhalers at this time. I did review her CT scan of the chest demonstrating evidence of tree-in-bud suggesting bronchiolitis. It could have been related to a viral syndrome. The patient also had a CT scan of the chest from October 2021 which white also personally reviewed. At that point the patient had Significant right lower lobe pneumonia. no pulmonary nodules were identified but there were in the however by the airspace disease. The patient will need a formal CT scan of the chest in the near future. 06/14/2023 the patient is here for a pulmonary follow-up visit. The patient overall has been feeling better. The singular in the antihistamine therapy has improved his her symptoms significantly. We did evaluate her blood work she continues to have this persistent eosinophilia consistent with eosinophilic asthma. based on the fact that she did better on the allergy medication she does not need to consider biologics at this time. Explained to her that if her symptoms were to worsen biologic injection will be very effective for her. In addition to that we did review her last CT scans. She had a CT scan back in 2021 demonstrating calcified and noncalcified pulmonary nodules and also the CT scan of the abdomen. Will plan to have her return in 6 months and will repeat the CT scan prior to that visit. Meantime she continues to form the peritoneal dialysis. She is still working closely with the [email or web address] Nephrology transplant team and still awaiting for a donor kidney. 12/13/2023 the patient is here for a pulmonary follow-up visit. Overall she is doing okay. She does complaint of nasal congestion postnasal drip. Sometimes he can be embarrassing for her. Moderate severity. She does get some relief from the singular but not completely. She has been using her respiratory inhalers with good effect. She did have a CT scan of the chest which I personally reviewed. She does have pulmonary nodules. Also has some areas of calcifications likely secondary to her dialysis. She is working on her diabetes control now has an insulin pump and her hemoglobin A1c is improved. The pulmonary nodules do not appear to be concerning she does have some areas of bronchiolitis but minimal. I do not see anything on the CT scan that would explain her back pain. As unlikely to be related to any pleural or pulmonary manifestation. However, she does have some shortness of breath with activity. Sometimes shortness of breath and chest tightness. Will provide her with a rescue inhaler that she can use as needed. In the meantime she also have a pulmonary function study which will review when she comes back for follow-up. 07/17/2024 the patient is here for a pulmonary follow-up visit. Patient continues to have significant respiratory symptoms. Significant nasal obstruction moderate severity and has hard time breathing through her nose. She also has a postnasal drip. She also complains of chest tightness and wheezing. She does use her rescue medication, albuterol but she does not have a maintenance inhaler. She also try the ipratropium nasal spray. She already tried and failed the fluticasone. She did have some allergies noted. The patient needs to start maintenance inhalers at this time. In addition to that she will continue with her allergy medication. She had been taking Zyrtec daily. Will increase it to twice a day. We have to be careful with her dialysis days. In addition to that will have her get some blood work to monitor and check her allergy levels. With her significant uncontrolled asthma and chronic rhinitis he may be a good candidate for biologic therapy. 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 Hypoglycemia due to type 1 diabetes mellitus Hypertension Dyslipidemia Diabetic polyneuropathy associated with type 1 diabetes mellitus Diabetes type 1, uncontrolled ESRD (end stage renal disease) on dialysis ESRD (end stage renal disease) Surgical History History of hemodialysis Hx of amputation Hx of eye surgery Hx of section Family History Father Diabetes mellitus Mother Thyroid disease Pre-diabetes HTN (hypertension) Acute depression Arthritis Social History Household Members: Significant Other Household Members Other:: / - 6 y/o daughter Housing: Apartment Do you presently have visiting nurse or other home services: No Alcohol intake: never Patient Tobacco Use Status: Never used Tobacco service: No Current occupational status: disabled Review of Systems Const Denies fever(s) Eyes Denies change in vision ENT Reports nasal congestion, Reports nasal discharge, Reports nasal obstruction and Reports post nasal drip Card Denies chest pain Resp Reports cough and Denies wheezing GI Reports no additional complaints Reports as per HPI Musc Reports no additional complaints Skin/Breast Denies rash Neuro Reports no additional complaints Binh/Lymph Denies lymphadenopathy Aller/Immun Denies wheezing Physical Exam Vital Signs: Last Vital Signs Pulse 83 07/17/24 10:35 BP 102/68 07/17/24 10:35 Pulse Ox 99 07/17/24 10:35 Oxygen Delivery Method Room Air 07/17/24 10:35 BMI result Body Mass Index 29.8 Const General: comfortable HEENT General nose exam: Abnormal mucous membranes and turbinates present erythematous and no nasal polyps Neck Neck: Yes supple Chest Chest palpation & inspection: normal inspection of the chest Resp Effort & Inspection: normal respiratory effort and prolonged expiratory phase Auscultation: diminished lung sounds Cardio Heart sounds: S1 normal heart sound present and S2 normal heart sound present GI Palpation (GI): Soft to palpation Skin General skin exam: no rashes or lesions noted Extrem General: Yes no clubbing, cyanosis or edema Assessment & Plan Assessment & Plan (1) Chronic allergic rhinitis: Code(s): J30.9 - Allergic rhinitis, unspecified Category: Medical (2) Allergies: Code(s): T78.40XA - Allergy, unspecified, initial encounter Category: Medical Qualifiers: Encounter type: initial encounter Qualified Code(s): T78.40XA - Allergy, unspecified, initial encounter (3) Pulmonary nodules: Code(s): R91.8 - Other nonspecific abnormal finding of lung field Category: Medical (4) Dyspnea: Code(s): R06.00 - Dyspnea, unspecified Category: Medical Qualifiers: Dyspnea type: dyspnea on exertion Qualified Code(s): R06.09 - Other forms of dyspnea (5) Asthma: Code(s): J45.909 - Unspecified asthma, uncomplicated Category: Medical Qualifiers: Asthma complication type: uncomplicated Asthma persistence: persistent Asthma severity: moderate Qualified Code(s): J45.40 - Moderate persistent asthma, uncomplicated Plan start Adhair HFA start Astelin nasal spray start flonase afrin x days continue claritin continue Singulair stop Ipratropium nasal spray MATI as needed bloodwork F/U 4-6 months Orders: Orders Resp Allergy Profile Region I 07/17/24 J30.9 - Allergic rhinitis, unspecified, R91.1 - Solitary pulmonary nodule, R91.8 - Other nonspecific abnormal finding of lung field, T78.40XA - Allergy, unspecified, initial encounter Immunoglobulin G Subclasses 07/17/24 J30.9 - Allergic rhinitis, unspecified, R91.8 - Other nonspecific abnormal finding of lung field, T78.40XA - Allergy, unspecified, initial encounter Erythrocyte Sedimentation Rate 07/17/24 J30.9 - Allergic rhinitis, unspecified, R91.8 - Other nonspecific abnormal finding of lung field, T78.40XA - Allergy, unspecified, initial encounter Complete Blood Count Auto Diff 07/17/24 J30.9 - Allergic rhinitis, unspecified, R91.8 - Other nonspecific abnormal finding of lung field, T78.40XA - Allergy, unspecified, initial encounter Immunoglobulins,IgG IgA IgM 07/17/24 J30.9 - Allergic rhinitis, unspecified, R91.8 - Other nonspecific abnormal finding of lung field, T78.40XA - Allergy, unspecified, initial encounter Immunoglobulin E 07/17/24 J30.9 - Allergic rhinitis, unspecified, R91.8 - Other nonspecific abnormal finding of lung field, T78.40XA - Allergy, unspecified, initial encounter Medications: New budesonide-formoterol 160-4.5 mcg/actuation (Symbicort) 2 puffs inhalation BID 10.2 grams 11RF 30 days J44.89 - Other specified chronic obstructive pulmonary disease albuterol sulfate 90 mcg/actuation 2 inhalations inhalation Q6H PRN 18 grams 12RF shortness of breath or wheezing 30 days J44.9 - Chronic obstructive pulmonary disease, unspecified oxymetazoline 0.05% (Afrin (oxymetazoline)) 2 sprays intranasal Q12H PRN 22 mL 0RF nasal congestion 5 days azelastine administer into each nostril 2 sprays intranasal BID 30 mL 6RF 30 days fluticasone propionate 50 mcg/actuation 2 sprays intranasal DAILY 15.8 mL 11RF 30 days J31.0 - Chronic rhinitis Changed From cetirizine (Zyrtec) 10 mg PO Q OTHER DAY 30 days 15 tabs 6RF allergy symptoms To cetirizine (Zyrtec) 10 mg PO BID 60 tabs 1RF allergy symptoms 30 days Coding Level of Care Code Est Pt Level 4 (44114) Diagnoses Chronic allergic rhinitis J30.9 Allergy, initial encounter T78.40XA Encounter type: initial encounter Pulmonary nodules R91.8 Dyspnea on exertion R06.09 Dyspnea type: dyspnea on exertion Moderate persistent asthma without complication J45.40 Asthma complication type: uncomplicated Asthma persistence: persistent Asthma severity: moderate Time Spent (min) 16
--- OUTSIDE RECORDS SUMMARY | 2024-07-17 11:25 | XMS_ITS | Encounter Summary ---
Author Organization [facility] Address [address] [place] [phone] Phone Care Team Providers Care Garment Manufacturing Supervisor Name Role Phone Azucena Bradley MD Primary Care Provider [phone] Encounter Details Date Type Department Care Team (Late st Contact Info) Description 07/16/2024 Treatment [facility]. [address] [address] Edwina Min MD [address] [address] End stage renal disease; Dependence [...] Dialysis Note - Edwina Min MD - 07/16/2024 12:00 AM EDT Patient: Natali Mtz : 1990 Note Type: Dialysis Rounds-Comp Service Date: 07/16/2024 This patient was personally seen for a complete visit as part of routine monthly dialysis care for end stage renal disease. Attending Occupational Analyst: EDWINA MIN Dialysis Location: [facility] Schedule: Shift: 2 OVERVIEW Patient is stable. ADEQUACY ASSESSMENT Kt/V, Natural Log 1.54 (06/18/24) 1.89 (05/21/24) 1.86 (04/23/24) UREA REDUCTION RATIO (%) 72 (06/18/24) 78 (05/21/24) 77 (04/23/24) BUN 50 (06/18/24) 65 (05/21/24) 69 (04/23/24) BUN Post Dialysis 14 (06/18/24) 14 (05/21/24) 16 (04/23/24) Creatinine 10.15 (06/18/24) 10.37 (05/21/24) 9.26 (04/23/24) Bicarbonate (CO2) 28 (06/18/24) 27 (05/21/24) 23 (04/23/24) Sodium 136 (06/18/24) 135 (05/21/24) 134 (04/23/24) ANEMIA ASSESSMENT Hgb 9.5 (07/11/24) 8.6 (07/02/24) 8.4 (06/18/24) Iron Saturation (TSat) 30 (06/18/24) 25 (05/21/24) [...] to get on xplannt list 07/02/24 stable 07/07/24 stable 07/16/24 no new issues 04/15/24 stable 04/18/24 doing well 12/19/23 Stable [...] stable Signed by: EDWINA MIN MD on 07/16/2024 at 09:15:16 PM Transcribed by: EDWINA MIN MD on 07/16/2024 at 09:15:16 PM documented in this encounter Plan of Treatment Not on file documented as of this encounter Visit Diagnoses Diagnosis End stage renal disease Dependence on renal dialysis documented in this encounter Care Teams Garment Manufacturing Supervisor Relationship Specialty Start Date End Date Azucena Bradley MD [address] [place] [address], [address] [place] [address] PCP - General Internal Medicine 01/22/24 documented as of this encounter
--- OUTSIDE RECORDS SUMMARY | 2024-07-17 11:25 | XMS_ITS | Clinical Summary ---
Author Organization [employer] Address [address] 7t [place] [address] Care Team Providers Care Analytical Manager Name Role Phone Ally Ferreira MD Primary [...] tablet 1 023 Active [facility] Saline Nasal [place] 0.65 % nasal spray ADMINISTER 1 SPRAY [...] FOOD 270 tablet 1 02/29/2 024 Active Continuous Glucose Litigation Assistant (Dexcom G6 grooming assistant) device Use as directed. E10.65 Active Fiasp [...] 2 Active Insulin Disposable Pump (Omnipod 5 OvhU3C5 Pods Gen 5) misc 1 each every [...] times daily. 60 capsule 025 2024 Active NIFEdipine XL (Procardia XL) 90 MG 24 hr tabletIndicatio ns:Hypertension , unspecified type TAKE 1 TABLET BY MOUTH EVERY MORNING. SWALLOW WHOLE. 90 tablet 025 Active NIFEdipine XL (Procardia XL) 90 MG 24 hr tabletIndicatio ns:Hypertension , unspecified type TAKE 1 TABLET BY MOUTH IN THE MORNING DO NOT CRUSH, CHEW, OR SPLIT. 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 -states getting tx w cancer registrar- removed from iron pills Peripheral vascular disorder [...] reports to be following with vascular at [facility] --- ---- requested record to Yariel Verma [...] and exercise,discussed healthy life style -to see paper coater referred by her endoc Abnormal EKG 08/10/2022 Assessment & Plan (01/11/2023 7:44 PM EDT): -EKG 07/2022 showed now acute ischemic findings there is QTC prolonged to 491 but noted in the past as well -states was seen by cards before unsure reason but w no major findings -found inconclusive stress test done in 2020 -Per pt has been seen by cards at [facility] -sounds possible was evaluated by cards [...] pt interested in implatn option --referred today kashif Mendez -reports hx of neg PPD done at her job in the past -vaccine: -tdap 2020 ,covid 19 monov x 3, Bivalent x1 , HPV x3, hep B x3-immune, [id number] x2 and later p13 in 2019 -will [...] visit , HPV x3, hep B x3, [id number] x2 and later p13 in 2019 ,MMRx2,varicellax2 [...] Services needed PCP management Off-site services for [facility]. [place] was offered same-day appointments with [facility]/intake. [...] for self PLAN: 1. Follow up with [facility]: Not recommended for follow-up 2. 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 --px by her cancer registrar --advised pt to follow w her specialist to confirm dose of med Assessment & Plan (08/10/2022 12:41 PM EDT): BP at home per pt <140/90 Stopped hydralazine by her cancer registrar for hypotensive episodes after HD Currently denies [...] losartan ? -all meds refilled by her cancer registrar ,states dont need any meds refilled -f BP at her next apt -advised to check at home and bring readings Hyperlipidemia 09/06/2012 Proteinuria 01/09/2012 03/07/2023 DM (diabetes mellitus), type 1 with renal compli cations 04/16/1958 Assessment & Plan (01/11/2023 8:05 PM EDT): dxed w DM1 at age 11 y of age c/w nephropathy -ESRD on HD complicated w hypoglycemic events f w rn intern -Dr Morro Amor on novolog SS ( 6 to 8 u TID)and lantus 18 u HS Hb1AC capillary today is 12.3<---12, LDL 86,CBG elevated today at 235 -shake out worker referred today -opthalmo has apt for 05/2023 -sent glucose tab-before and would discuss about gluconate at next visit x emergency -continue care w her rn intern -will hold on doing Changes per pt [...] HD complicated w hypoglycemic events f w rn intern -Dr Morro Amor on novolog SS ( 6 to 8 u TID)and lantus 10 u HS --got today records of her last visit w endo in 07/2022 Hb1AC capillary 12 today --from last endo note had hb1AC in 07/2022 10.9? -shake out worker referred already by her rn intern -pd to abigail apt -opthalmo referral today Pt has continuous capillary glucose check marking bw 55 to 400s ----pt takes her readings to her endo office to do changes in meds -to take tomorrow to endo's office -Pd to see a nursing educator and paper coater referred by her rn intern ----pt recently got the CGM by her [...] Encounters Date Type Department Care Team Description 07/14/2024 Refill [facility] MED[facility] [address] [facility] [place] [address] Ally Ferreira MD Hypertension, unspecified type 06/27/2024 Population Health Risk Score [facility] ([facility] Department [address] [phone] Provider, Population Health Generic 06/26/2024 Orders Only GENERIC EXTERNAL DATA DEPARTMENT Provider, Generic External Data 06/23/2024 Telephone [facility] MED[facility]INE [facility] [place] [address] Ally Ferreira MD May recalls 06/03/2024 Refill [facility] MEDICINE [address] [facility] [place] [address] Ally Ferreira MD 05/30/2024 11:00 AM EST Telemedicine [facility] MEDICINE [facility] [place] [address] Randi Marcelino, Trinh Type 1 diabetes mellitus with chronic kidney disease on chronic dialysis ([facility]) (Primary Dx); Hypertension, unspecified type; Hyperlipidemia, unspecified hyperlipidemia type 05/13/2024 10:30 AM EST Office Visit [facility] [place] [address] Rosy Dawson ANP Hospital discharge follow-up (Primary Dx); Hyperkalemia; Type 1 diabetes mellitus with chronic kidney disease on chronic dialysis ([facility]); Arm DVT (deep venous thromboembolism), acute, right ([facility]); ESRD on hemodialysis ([facility]); Elevated brain natriuretic peptide (BNP) level 05/13/2024 Travel 05/12/2024 Telephone [facility] MEDICINE [address] [place] [address] Ally Ferreira MD 04/25/2024 Telephone [facility] [address] [place] [address] Onur Rice PharmD Hospital Follow-up 04/24/2024 Orders Only GENERIC EXTERNAL DATA DEPARTMENT Provider, Generic External Data 04/19/2024 Refill [facility] [address] [place], [place] [phone] Ally Ferreira MD History of SIVAKUMAR positive for HSV from Last 3 Months Immunizations Name Administration [...] AM EDT Office Visit [facility] MEDICINE [address] [place] [phone] Ally Ferreira MD [address] [place] [address] Health Maintenance Due Date Last Done Comments [...] Whole Blood 188(H) 60 - 115 mg/dL [facility] Comment:METER #: [id number] Testing performed in the Endocrinology Department [address] , [address], [facility]. 06/26/2024 10:2 2 AM EDT 06/26/2024 10:24 AM EDT us Generic External Data Provider LAB BLOOD ORDERAB LES Final Result [facility] [address] [place] [phone] * Hepatitis C Antibody with Reflex to HCV, RNA, Quantitative, Real-Time PCR (09/06/2023 10:47 AM EDT) Pathologist [facility] Hepatitis C Antibody Nonreactive Nonreactive [facility] Comment:Antibodies to HCV no t detected; does not exclude early acuteHCV infection. Blood Venous blood specimen / Unknown 09/06/2023 10:47 AM EDT 09/06/2023 10:47 AM EDT us Ally Ferguson MD LAB BLOOD ORDERAB LES Final Result Performing Organization Address City/[facility]/ZIP Co de Phone Number [facility] [address] [place] [phone] * HIV-1/2 Antigen and Antibodies, Fourth Generation, with Reflexes (09/06/2023 10:47 AM EDT) HIV AB/AG Nonreactive Nonreactive [facility] Comment:HIV-1 p24 Ag and/or HIV-1/HIV-2 Ab not detected.A test result that is nonreactive does not exclude thepossibility of exposure to or infection with HIV-1 and/orHIV-2. Nonreactive results in this assay for individualswith prior exposure to HIV-1 and/or HIV-2 may be due toantigen and antibody levels that are below the limit ofdetection of this assay.[employer] HIV Ag/Ab Combo assay result andsupplemental assay results should be interpreted inconjunction with the patient's clinical presentation,history and other laboratory results. If the results areinconsistent with clinical evidence, additional testing issuggested to confirm the result. Blood Venous blood specimen / Unknown 09/06/2023 10:47 AM EDT 09/06/2023 10:47 AM EDT us Ally Ferguson MD LAB BLOOD ORDERAB LES Final Result Performing Organization Address [facility]/ZIP Co de Phone Number [facility] [address] [place] [address] [phone] * (ABNORMAL) Hemoglobin A1c (09/06/2023 10:47 AM EDT) Hemoglobin A1c 9.4(H) <6.0 % [facility] Comment:Hemoglobin A1C Refer ence Range Adults: 4.8 - 6.0 % Non diabetic: < 6.0 % Goal: < 7.0 %Additional Action Suggested: > 8.0 %Note: Hemoglobin A1c results are invalid for patients with abnormal amounts of HbF. Blood transfusions may impact the HbA1c concentration in the patient sample. Estimated Average Glucose 223 mg/dL [facility] Comment:eAG = Estimated ave rage glucose which is %A1C expressed asaverage glucose, using the formula of the S3O-MedsjzuYmoyzeg Glucose study (ADAG), Diabetes Care, Vol.31,#8,Nov. 2007 Blood Venous blood specimen / Unknown 09/06/2023 10:47 AM EDT 09/06/2023 10:47 AM EDT us Ally Ferguson MD LAB BLOOD ORDERAB LES Final Result [facility] [address] [place] [phone] * (ABNORMAL) Lipid Panel, Standard (09/06/2023 10:47 AM EDT) Triglycerides 256(H) <150 mg/dL [facility] Comment:Desirable Triglyceri de: less than 150 mg/dLBorderline High Triglyceride 150-199 mg/dLHigh Triglyceride: 200-499 mg/dLVery High Triglyceride: greater than or equal to 5OO mg/dL Cholesterol 203(H) <200 mg/dL [facility] Comment:Desirable Cholestero l: less than 200 mg/dLBorderline High Cholesterol: 200-239 mg/dLHigh Cholesterol: greater than 239 mg/dL LDL Cholesterol Calculated 123(H) <100 mg/dL [facility] Comment:Desirable LDL: less than 100 mg/dLNear Optimal/Above Optimal LDL: 110- 129 mg/dLBorderline High LDL: 130-159 mg/dLHigh LDL: 160-189 mg/dLVery High LDL: greater than or equal to 190 mg/dL HDL Cholesterol 29(L) >40 mg/dL [facility] Comment:Desirable HDL: great er than 40 mg/dL Note: This HDL assay may give artificially low results in patients with liver disease. Blood Venous blood specimen / Unknown 09/06/2023 10:47 AM EDT 09/06/2023 10:47 AM EDT Ally Ferguson MD LAB BLOOD ORDERAB LES Final Result [facility] [address] [place] [phone] [phone] * Pap Smear (05/17/2023 12:00 AM EST) Swab [facility] Provider LAB CYTOLOGY ORDERABLES F inal Result Performing Organization Address City/[facility]/ZIP Co de Phone Number [facility] [address] [place] [address] * HPV mRNA E6/E7 (02/03/2021 9:37 AM EDT) HPV nRNA E6/E7 Not Detected Not Detected [facility] [facility] Comment: Methodology: Director Advertising-Mediated Amplification This assay detects E6/E7 viral messenger RNA (mRNA) from 14 high-risk HPV types (16,18,31,33,35,39,45,51,52,56,58,59,66,68). ? The analytical performance characteristics of this assay have been determined by [employer]. The modifications have not been cleared or approved by the FDA. This assay has been validated pursuant to the CLIA regulations and is used for clinical purposes. ?? For additional information, please refer to http://education.[employer]faq/GBC498j7 (This link if provided for information/ educational purposes only.) HPV nRNA E6/E7 Not Detected Not Detected [employer] [facility] Comment: Methodology: Director Advertising-Mediated Amplification This assay detects E6/E7 viral messenger RNA (mRNA) from 14 high-risk HPV types (16,18,31,33,35,39,45,51,52,56,58,59,66,68). ? The analytical performance characteristics of this assay have been determined by [employer]. The modifications have not been cleared or approved by the FDA. This assay has been validated pursuant to the CLIA regulations and is used for clinical purposes. ?? For additional information, please refer to http://education.[employer]faq/DSZ826w3 (This link if provided for information/ educational purposes only.) 02/03/2021 9:37 AM EDT us Jen [facility] LAB BLOOD ORDERABLES Araceli maher Result [facility] Critical access hospital Anywhere [address] from Last 3 Months or Most Recently Relevant to Health Maintenance [place] [address] STANDARD MEDICARE Care Teams Analytical Manager Relationship Specialty Start Date End Date Ally Ferreira MD [address] [place] [phone] PCP - General Internal Medicine 07/25/22
--- OUTSIDE RECORDS SUMMARY | 2024-07-17 11:25 | XMS_ITS | Encounter Summary ---
Demographics Address [address] [place] [address] Mobile Phone Home Phone Preferred Language Italian Marital Status Gnosticism Affiliation Unknown Race White Ethnic Group Unknown Author Organization [facility] Address [address] [place] [address] Care Team Providers Care Student Activities Director Name Role Phone Ally Ferreira Primary Care Provider [phone] Encounter Details Date Type Department Care Team (Late st Contact Info) Description 01/11/2021 Orders Only [facility] Nuclear Medicine [address] [place] [address] Shiva Duran MD [address] [place] [address] Social History Tobacco Use Types Packs/Day Years [...] Care Team (Late st Contact Info) Description 02/05/2025 11:00 AM EDT Follow-Up [facility] Renal Transplant [address] [place] [address] Vinicio Harris MD [address] [place] [address] 02/05/2025 11:45 AM EDT Follow-Up [facility] Renal Transplant [address] [place] [address] 02/05/2025 12:30 PM EDT Social Work [facility] Renal Transplant [address] [place] [address] Michelet Swartz documented as of this encounter Visit Diagnoses Not on filedocumented in this encounter Care Teams Student Activities Director Relationship Specialty Start Date End Date Ally Ferreira [address] [place] [phone] PCP - General 02/04/24 documented as of this encounter
--- OUTSIDE RECORDS SUMMARY | 2024-07-17 11:25 | XMS_ITS | Patient Health Record ---
Author Organization [facility] Address [address] [place] [address] Care Team Providers Care Health Facilities Surveyor Name Role Phone Dory Martin Unavailable [phone] Reason For Referral No Information Plan Of Treatment No Information Insurance Providers Payer Name Payer Address Payer Phone Subscriber Number Group Number Insured Name Patient Relationship to Insured Coverage Start Date Coverage End Date Medicare National Govt Svcs Inc [address] [place] [address] [phone] Natali Mtz Self - patient is the insured
--- OUTSIDE RECORDS SUMMARY | 2024-07-17 11:25 | XMS_ITS | Encounter Summary ---
Author Organization [facility] Address [address] [place] [address] Phone Care Team Providers Care Angle Roll Operator Name Role Phone Azucena Bradley MD Primary Care Provider [phone] Reason for Visit * Reason Comments Med Refill Encounter Details Date Type Department Care Team (Late st Contact Info) Description 03/06/2021 Refill [facility] [address] [place] [address] Forrest Adamson MD Social History Tobacco [...] on filedocumented in this encounter Care Teams Angle Roll Operator Relationship Specialty Start Date End Date Azucena Bradley MD [address] [place] [address], [facility] [address] [place] [address] PCP - General Internal Medicine 01/22/24 documented as of this encounter
--- OUTSIDE RECORDS SUMMARY | 2024-07-17 11:25 | XMS_ITS | Encounter Summary ---
Author Organization [employer] Address [address] [place] [address] 7 [place] [address] Care Team Providers Care Tourist Camp Attendant Name Role Phone Ally Ferreira MD Primary Care Pro vider Reason for Visit * Reason Comments Med Refill Encounter Details Date Type Department Care Team (Late Contact Info) Description 09/02/2022 Refill [facility] MEDICINE [address] [place], [place] [phone] Ally Ferreira MD [address] [place] [address] Social History Tobacco Use Types Packs/Day Years [...] Description 09/02/2024 10:15 AM EDT Office Visit [facility] MEDICINE [address] [place] [address] Ally Ferreira MD [address] [place] [address] documented as of this encounter Visit Diagnoses Not on filedocumented in this encounter Additional Health Concerns Assessment Noted Time PHQ-9 Depression Total Score: 0 08/11/19 9:11 AM EDT documented as of this encounter Care Teams Tourist Camp Attendant Relationship Specialty Start Date End Date Ally Ferreira MD [address] [place] [address] PCP - General Internal Medicine 07/25/22 documented as of this encounter
--- OUTSIDE RECORDS SUMMARY | 2024-07-17 11:25 | XMS_ITS | Encounter Summary ---
Author Organization [employer] Address [address] [facility] 7 [place] [address] Care Team Providers Care Modern And Contemporary Art Curator Name Role Phone Ally Ferreira MD Primary Care Pro vider Reason for Visit * Reason Onset Date Comments Referral 05/01/2023 Encounter Details Date Type Department Care Team ([facility] st Contact Info) Description 05/01/2023 Telephone [facility] MEDICINE [address] [place], [place] [phone] Ally Ferreira MD [address] [place] [address] Referral Social History Tobacco Use Types Packs/Day [...] AM EDT Office Visit [facility] MEDICINE [address] [place] [address] Ally Ferreira MD [address] [place] [phone] documented as of this encounter Visit Diagnoses Not on filedocumented in this encounter Additional Health Concerns Assessment Noted Time PHQ-9 Depression Total Score: 0 08/11/19 9:11 AM EDT documented as of this encounter Care Teams Modern And Contemporary Art Curator Relationship Specialty Start Date End Date Ally Ferreira MD [address] [place] [phone] PCP - General Internal Medicine 07/25/22 documented as of this encounter
--- OUTSIDE RECORDS SUMMARY | 2024-07-17 11:25 | XMS_ITS | Encounter Summary ---
Author Organization [employer] Address [address] 7t [place] [address] Care Team Providers Care Social Worker Delinquency Prevention Name Role Phone Viri Wall Primary Care Provider [phone] Ally Ferreira MD Primary Care Pro vider Reason for Visit * Reason Comments Med Refill Encounter Details Date Type Department Care Team (Late st Contact Info) Description 06/06/2022 Refill [facility] MEDICINE [address] [place], [place] [phone] Name, MD Dain [address] [place] [address] Primary hypertension (Primary Dx) Social History Tobacco [...] Description 09/02/2024 10:15 AM EDT Office Visit [facility]ICINE [address] [place] [address] Ally Ferreira MD [address] [place], [place] [phone] documented as of this encounter Visit Diagnoses Diagnosis Primary hypertension- Primary Unspecified essential hypertension documented in this encounter Care Teams Social Worker Delinquency Prevention Relationship Specialty Start Date End Date Viri Wall FNP [address] [place] [address] [phone] PCP - General Family Medicine 06/06/22 07/24/22 Ally Ferreira MD [address] [place] [address] [phone] PCP - General Internal Medicine 07/25/22 documented as of this encounter
--- OUTSIDE RECORDS SUMMARY | 2024-07-17 11:25 | XMS_ITS | Encounter Summary ---
Author Organization [employer] Address [address] [place] [address] [address] [place] [address] Care Team Providers Care Nanotechnology Engineering Technician Name Role Phone Ally Ferreira MD Primary Care Pro vider Reason for Visit * Reason Comments Med Change Request Encounter Details Date Type Department Care Team (Late Contact Info) Description 01/13/2023 Refill [facility] MEDICINE [address] [place] [address] [phone] Ally Ferreira MD [address] [place] [address] [phone] Social History Tobacco Use Types Packs/Day Years [...] Description 09/02/2024 10:15 AM EDT Office Visit [facility] MEDICINE [address] [place] [address] [phone] Ally Ferreira MD [address] [place], [place] [phone] documented as of this encounter Visit Diagnoses Not on filedocumented in this encounter Additional Health Concerns Assessment Noted Time PHQ-9 Depression Total Score: 0 08/11/19 9:11 AM EDT documented as of this encounter Care Teams Nanotechnology Engineering Technician Relationship Specialty Start Date End Date Ally Ferreira MD [address] [place] [phone] PCP - General Internal Medicine 07/25/22 documented as of this encounter
--- OUTSIDE RECORDS SUMMARY | 2024-07-17 11:25 | XMS_ITS | Encounter Summary ---
Author Organization [facility] Address [address] [place] [address] Phone Care Team Providers Care News Reporter Name Role Phone Azucena Bradley MD Primary Care Provider [phone] Reason for Visit * Reason Comments Med Refill Encounter Details Date Type Department Care Team (Late st Contact Info) Description 12/25/2021 Refill [facility] [address] [place] [address] Forrest Adamson MD Social History Tobacco [...] on filedocumented in this encounter Care Teams News Reporter Relationship Specialty Start Date End Date Azucena Bradley MD [address] [place] [address], [facility] 3 [place] [address] PCP - General Internal Medicine 01/22/24 documented as of this encounter
--- OUTSIDE RECORDS SUMMARY | 2024-07-17 11:25 | XMS_ITS | Clinical Summary ---
Demographics Address [address] [place] [address] Mobile Phone Home Phone Preferred Language Kazakh Marital Status Catholic Affiliation Unknown Race White Ethnic Group Unknown Author Organization [facility] Address [address] [place] [address] Care Team Providers Care Pricing Actuary Name Role Phone Ally Ferreira Primary Care Provider [phone] Allergies Active Allergy Reactions Criticality Noted Date [...] mouth 3 times a day with meals. 05/11/202 3 Active NovoLOG U-100 Insulin aspart 100 [...] 1 each 3 3 Active Dexcom G6 Vamp Presser misc Use as directed. E10.65 1 each [...] Encounters Date Type Department Care Team Description 07/10/2024 Telephone [facility] Transplant Department [address] [place] [address] Sabina Velázquez, RN 06/20/2024 Orders Only [facility] Transplant Department [address] [place] [address] Sabina Velázquez, RN ESRD (end stage renal disease) (Primary Dx); Pre-transplant evaluation for kidney transplant 06/20/2024 Telephone [facility] Transplant Department [address] [place] [address] Sabina Velázquez, RN from Last 3 Months Immunizations Immunization Administration Dates Next Due Covid-19 Monovalent Vaccine, Moderna, mRNA, PF 07/09/2020,05/26/2020 [id number] 05/05/1993,02/22/1993,12/22/1992 Diphtheria, Tetanus Toxoids and Acellular Pertussis [...] Info) Description 02/05/2025 11:00 AM EDT Follow-Up [facility] Renal Transplant [address] [place] [address] Vinicio Harris MD [address] [place] [address] 02/05/2025 11:45 AM EDT Follow-Up [facility] Renal Transplant [address] [place] [address] 02/05/2025 12:30 PM EDT Social Work [facility] Renal Transplant [address] [place] [address] Michelet Swartz Health Maintenance Due Date Last Done Comments [...] Additional history exists HIV Screening Completed 09/06/2023, 08/15, 08/11/2022, Additional history exists Hepatitis C Screening Completed 09/06/2023 , 10/13/2021, 11/30/2020, Additional history exists Influenza Vaccine Completed 02/08/2024, , 05/27/2019, Additional history exists COVID-19 Vaccine Completed 05/13/2024, , 01/26/2022, Additional history exists Procedures * Due to [place] state law, this organization might not be sharing negative HIV tests. Procedure Name Priority Date/Time Associated Diagnosis Comments HLA MONTHYLY ANTIBODY IDENTIFICATION - CLASS II Routine 06/20/2024 11:40 AM EST ESRD (end stage renal disease) (HCC) Pre-transplant evaluation for kidney transplant HLA MONTHLY [...] to Health Maintenance Results * Due to [place] state law, this organization might not be sharing negative HIV tests. * (ABNORMAL) POCT Glycosylated Hemoglobin (HGB A1C), interfaced (02/27/2023 1:05 PM EST) Hemoglobin A1C, POCT 10.6(H) <=5.6 % 02/27/2023 1:20 PM EST [facility] Comment: A1C Recommendation for Non- Adults with Diabetes: <7.0% ADA 2011 Standards of Medical Care in Diabetes Blood 02/27/2023 1:05 PM EST 02/27/2023 1:20 PM EST us Robert Meredith MD LAB POCT ORDERABLES - DEVICE Final Result [facility], POC [address] [place] [address], * (ABNORMAL) Basic Metabolic Panel, Outside Lab [...] NON-REACT JOSE RAFAEL 12/01/2020 8:37 AM EDT [employer] Signal To Cut-Off 0.02 <1.00 12/01/2020 8:37 AM EDT [employer] Comment: HCV antibody was non-reactive. There is no laboratory evidence of HCV infection. In most cases, no further action is required. However, if recent HCV exposure is suspected, a test for HCV RNA (test code 90036) is suggested. For additional information please refer to http://[employer]/faq/MNR99y1 (This link is being provided for informational/ educational purposes only.) Blood Structure of peripheral vein / Unknown Venipuncture / Unknown 11/30/2020 11:09 AM EDT 11/30/2020 11:33 AM EDT Narrative [facility]ILIP GILLETTE - 12/01/2020 8:37 AM EDT [facility] Received Date: Stefan Robbins MD LAB BLOOD ORDERABLES Final Result [facility] [address] [facility] 3rd Floor, [place] [address], [employer] [facility] [address] [facility] 3rd Floor, [place] [address], from Last 3 Months or Most Recently Relevant to Health Maintenance Insurance * Guarantor: Natali Mtz Account Type Relation to Patient Date of Phone Billing Address Personal/Family Self 1990 [address] [place] [address] MEDICARE [facility] * Guarantor: Natali Mtz Account Type Relation to Patient Date of Phone Billing Address Transplant Self 1990 [address] [place] [address] MEDICARE [facility] Advance Directives Documents on File Type Date Recorded Patient Remedy Developer Expl anation Health Care Proxy 01/26/2023 10:42 AM 01/18/23 Health Care Proxy 12/11/2019 8:18 AM 11/30 Care Teams Pricing Actuary Relationship Specialty Start Date End Date Ally Ferreira [address] [place] [address] PCP - General 02/04/24
--- OUTSIDE RECORDS SUMMARY | 2024-07-17 11:25 | XMS_ITS | Encounter Summary ---
Author Organization [facility] Address [address] [facility] [address] [place] [address] Phone Care Team Providers Care Customer Retention Specialist Name Role Phone Azucena Bradley MD Primary Care Provider [phone] Reason for Visit * Reason Comments Med Refill Encounter Details Date Type Department Care Team (Late st Contact Info) Description 09/02/2023 Refill [facility] [address] [place] [phone] Paul Brothers MD [address] [facility] 204 [place] [phone] Social History Tobacco Use Types Packs/Day Years [...] on filedocumented in this encounter Care Teams Customer Retention Specialist Relationship Specialty Start Date End Date Azucena Bradley MD [address] [place] [address], Floor 3 [place] [address] PCP - General Internal Medicine 01/22/24 documented as of this encounter
--- OUTSIDE RECORDS SUMMARY | 2024-07-17 11:25 | XMS_ITS | Encounter Summary ---
Author Organization [employer] Address [address] [facility] [address] 7t [place] [address] Care Team Providers Care Grill Attendant Name Role Phone Ally Ferreira MD Primary Care Pro vider Reason for Visit * Reason Comments Med Refill Encounter Details Date Type Department Care Team ([facility] st Contact Info) Description 05/01/2023 Refill [facility] MEDICINE [address] [place], [place] [phone] Jen Lozoya, [facility] [address] [place] [address] Social History Tobacco Use Types Packs/Day Years [...] 10:15 AM EDT Office Visit [facility] MEDICINE [address] [place] [address] Ally Ferreira MD [address] [place] [address] documented as of this encounter Visit Diagnoses Not on filedocumented in this encounter Additional Health Concerns Assessment Noted Time PHQ-9 Depression Total Score: 0 08/11/19 9:11 AM EDT documented as of this encounter Care Teams Grill Attendant Relationship Specialty Start Date End Date Ally Ferreira MD [address] [place] [address] PCP - General Internal Medicine 07/25/22 documented as of this encounter
--- OUTSIDE RECORDS SUMMARY | 2024-07-17 11:25 | XMS_ITS | Encounter Summary ---
Author Organization [facility] Address [address] [place] [address] Phone Care Team Providers Care Bread Slicer Machine Name Role Phone Azucena Bradley MD Primary Care Provider [phone] Reason for Visit * Reason Comments Med Refill Encounter Details Date Type Department Care Team (Late st Contact Info) Description 12/24/2021 Refill [facility] [address] [place] [address] Forrest Adamson MD Social History Tobacco [...] on filedocumented in this encounter Care Teams Bread Slicer Machine Relationship Specialty Start Date End Date Azucena Bradley MD [address] [place] [address], [facility] 3 [place] [address] PCP - General Internal Medicine 01/22/24 documented as of this encounter
--- OUTSIDE RECORDS SUMMARY | 2024-07-17 11:25 | XMS_ITS | Referral Summary ---
Demographics Address [address] [place] [address] Mobile Phone Home Phone Preferred Language Lebanese Marital Status Restorationism Affiliation Unknown Race White Ethnic Group Unknown Author Organization [facility] Address [address] [place] [address] Care Team Providers Care Rail Flaw Detector Operator Name Role Phone Ally Ferreira Primary Care Provider [phone] Encounters Date Type Department Care Team Description 07/10/2024 Telephone [facility] Transplant Department [address] [place] [address] Sabina Velázquez RN 06/20/2024 Orders Only [facility] Transplant Department [address] [place] [address] Sabina Velázquez RN ESRD (end stage renal disease) (Primary Dx); Pre-transplant evaluation for kidney transplant 06/20/2024 Telephone [facility] Transplant Department [address] [place] [phone] Sabina Velázquez RN from Last 3 Months [...] 1 each 3 3 Active Dexcom G6 Shank Faker misc Use as directed. E10.65 1 each [...] Covid-19 Monovalent Vaccine, Moderna, mRNA, PF 07/09/2020,05/26/2020 [id number] 05/05/1993,02/22/1993,12/22/1992 Diphtheria, Tetanus Toxoids and Acellular Pertussis [...] Info) Description 02/05/2025 11:00 AM EDT Follow-Up [facility] Renal Transplant [address] [place] [address] Vinicio Harris MD 55 [place] [address] 02/05/2025 11:45 AM EDT Follow-Up [facility] Renal Transplant [address] [place] [address] 02/05/2025 12:30 PM EDT Social Work [facility] Renal Transplant [address] [place] [address] Michelet Swartz Procedures * Due to [place] state law, this organization might not be [...] to Health Maintenance Results * Due to [place] state law, this organization might not be sharing negative HIV tests. * (ABNORMAL) POCT Glycosylated Hemoglobin (HGB A1C), interfaced (02/27/2023 1:05 PM EST) Hemoglobin A1C, POCT 10.6(H) <=5.6 % 02/27/2023 1:20 PM EST [facility] Comment: A1C Recommendation for Non- Adults with Diabetes: <7.0% ADA 2011 Standards of Medical Care in Diabetes Blood 02/27/2023 1:05 PM EST 02/27/2023 1:20 PM EST us Robert Meredith MD LAB POCT ORDERABLES - DEVICE Final Result [facility], POC [address] [place] [address], * (ABNORMAL) Basic Metabolic Panel, Outside Lab [...] NON-REACT JOSE RAFAEL 12/01/2020 8:37 AM EDT [employer] [facility] Signal To Cut-Off 0.02 <1.00 12/01/2020 8:37 AM EDT [facility] Comment: HCV antibody was non-reactive. There is no laboratory evidence of HCV infection. In most cases, no further action is required. However, if recent HCV exposure is suspected, a test for HCV RNA (test code 77022) is suggested. For additional information please refer to http://education.[employer] Show/faq/SYY19l6 (This link is being provided for informational/ educational purposes only.) Blood Structure of peripheral vein / Unknown Venipuncture / Unknown 11/30/2020 11:09 AM EDT 11/30/2020 11:33 AM EDT [facility] 12/01/2020 8:37 AM EDT [facility] Received Date: Stefan Robbins MD LAB BLOOD ORDERABLES Final Result [facility] [address] [facility] 3rd Floor, [place] [address], [facility] [address] [facility] 3rd Floor, [place] [address], from Last 3 Months or Most Recently Relevant to Health Maintenance Insurance * Guarantor: Natali Mtz Account Type Relation to Patient Date of Phone Billing Address Personal/Family Self 1990 [address] [place] [address] MEDICARE [facility] * Guarantor: Natali Mtz Account Type Relation to Patient Date of Phone Billing Address Transplant Self 1990 [address] [place] [address] MEDICARE [facility] Advance Directives Documents on File Type Date Recorded Patient Plastic Boat Buffer Expl anation Health Care Proxy 01/26/2023 10:42 AM 01/18/23 Health Care Proxy 12/11/2019 8:18 AM 11/30 Care Teams Rail Flaw Detector Operator Relationship Specialty Start Date End Date Ally Ferreira [address] [place] [address] PCP - General 02/04/24
--- OUTSIDE RECORDS SUMMARY | 2024-07-17 11:25 | XMS_ITS | Encounter Summary ---
Author Organization [employer] Address [address] [facility] [address] 7t [place] [address] Care Team Providers Care Global Safety Officer Name Role Phone Ally Ferreira MD Primary Care Pro vider Reason for Visit * Reason Comments Med Refill Encounter Details Date Type Department Care Team ([facility] Contact Info) Description 09/02/[address] [facility] MEDICINE [address] [place] [address] Blair Lopez AGNP Hypertension, unspecified [...] Upcoming Encounters Date Type Department Care Team ([facility] Contact Info) Description 09/02/2024 10:15 AM EDT Office Visit [facility] MEDICINE [address] [place] [address] Ally Ferreira MD [address] [place] [address] documented as of this encounter Visit Diagnoses Diagnosis Hypertension, unspecified type documented in this encounter Additional Health Concerns Assessment Noted Time PHQ-9 Depression Total Score: 0 08/11/19 9:11 AM EDT documented as of this encounter Care Teams Global Safety Officer Relationship Specialty Start Date End Date Ally Ferreira MD [address] [place] [address] PCP - General Internal Medicine 07/25/22 documented as of this encounter
--- OUTSIDE RECORDS SUMMARY | 2024-07-17 11:25 | XMS_ITS ---
Demographics Address [address] [place] [address] Mobile Phone Home Phone Preferred Language Nepali Marital Status Cheondoism Affiliation Unknown Race White Ethnic Group Unknown Author Organization [facility] Address [address] [place] [address] Care Team Providers Care K 12 Principal Name Role Phone Ally Ferreira Primary Care Provider [phone] Transplant Episode Kidney Candidate [facility] ([place], [place]) [facility] waitlisted on 12/29/2019 Marked as Active on 03/21/2023 Kidney CoordinatorTadwain Velázquez RN Email: N/A Scores Score Value Updated Exceptions/Reas ons CPRA 3 06/23/2024 EPTS (Calc) 35 07/17/2024 [place] Organ Diagnosis Organ Primary Contributory Kidney Diabetes Mellitus - Type I Infection History Noted Survival Infection Treatment Organism Resolved 12/17/2019 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/02/2023 Care Team Name Role Phone Fax Email Sabina Velázquez RN Kidney Coordinator [phone] N/A Vinicio Harris MD Cloth Drier [phone] [email or web address] Strategic Debriefing Officer [phone] [email or web address] Forrest Adamson Referring Physician [phone] N/A Events Pre-Transplant Referred: 06/26/2019 Evaluation began: 12/01/2019 Committee: 12/03/2019 [facility] qualified: 07/15/2018 Center waitlisted: 12/29/2019 Dialysis History Dialysis History Start End Type Comments Center 07/15/2018 In-center Hemodialysis M/W/F [facility] Dialysis Center Information Center Phone Fax Address [facility] [phone] [place] [address] [address] SHANIQUE CONSTANTINO [address]
--- OUTSIDE RECORDS SUMMARY | 2024-07-17 11:25 | XMS_ITS | Encounter Summary ---
Author Organization [facility] Address [address] [place] [address] Phone Care Team Providers Care Commercial Estimator Name Role Phone Azucena Bradley MD Primary Care Provider [phone] Reason for Visit * Reason Comments Med Refill Encounter Details Date Type Department Care Team (Late st Contact Info) Description 06/14/2021 Refill [facility] [address] [place] [address] Forrest Adamson MD Social History [...] filedocumented in this encounter Care Teams Commercial Estimator Relationship Specialty Start Date End Date Azucena Bradley MD [address] [place] [address], [facility] 3 [place] [address] PCP - General Internal Medicine 01/22/24 documented as of this encounter
--- OUTSIDE RECORDS SUMMARY | 2024-07-17 11:25 | XMS_ITS | Encounter Summary ---
Demographics Address [address] [place] [address] Mobile Phone Home Phone Preferred Language Sami Marital Status Muslim Affiliation Unknown Race White Ethnic Group Unknown Author Organization [facility] Address [address] [place] [address] Care Team Providers Care Manufacturing Electrician Name Role Phone Ally Ferreira Primary Care Provider [phone] Encounter Details Date Type Department Care Team (Late st Contact Info) Description 02/22/2024 Orders Only [facility] Nuclear Medicine [address] [place] [phone] Victor Manuel Corado MD PhD [address] [place], [place] [phone] Social History Tobacco Use Types Packs/Day Years [...] Info) Description 02/05/2025 11:00 AM EDT Follow-Up [facility] Renal Transplant [address] [place], [place] [phone] Vinicio Harris MD [address] [place], [place] [phone] 02/05/2025 11:45 AM EDT Follow-Up [facility] Renal Transplant [address] [place] [address] 02/05/2025 12:30 PM EDT Social Work [facility] Renal Transplant [address] [place] [address] Michelet Swartz documented as of this encounter Visit Diagnoses Not on filedocumented in this encounter Care Teams Manufacturing Electrician Relationship Specialty Start Date End Date Ally Ferreira [address] [place] [address] PCP - General 02/04/24 documented as of this encounter
--- OUTSIDE RECORDS SUMMARY | 2024-07-17 11:25 | XMS_ITS | Encounter Summary ---
Demographics Address [address] [place] [address] Mobile Phone Home Phone Preferred Language French Marital Status Adventism Affiliation Unknown Race White Ethnic Group Unknown Author Organization [facility] Address [address] [place] [address] Care Team Providers Care Banking Services Officer Name Role Phone Ally Ferreira Primary Care Provider [phone] Encounter Details Date Type Department Care Team (Late st Contact Info) Description 05/07/2023 Orders Only [facility] Nuclear Medicine [address] [place] [address] Shiva Duran MD [address] [place] [address] Social History Tobacco Use Types Packs/Day Years [...] Info) Description 02/05/2025 11:00 AM EDT Follow-Up [facility] Renal Transplant [address] [place] [address] Vinicio Harris MD [address] [place] [address] 02/05/2025 11:45 AM EDT Follow-Up [facility] Renal Transplant [address] [place] [address] 02/05/2025 12:30 PM EDT Social Work [facility] Renal Transplant [address] [place] [address] Michelet Swartz documented as of this encounter Visit Diagnoses Not on filedocumented in this encounter Care Teams Banking Services Officer Relationship Specialty Start Date End Date Ally Ferreira [address] [place] [address] PCP - General 02/04/24 documented as of this encounter
--- OUTSIDE RECORDS SUMMARY | 2024-07-17 11:25 | XMS_ITS | Encounter Summary ---
Author Organization [facility] Address [address] [place] [address] Care Team Providers Care Napper Grinder Name Role Phone Ally Ferreira Primary Care Provider [phone] Encounter Details Date Type Department Care Team (Late st Contact Info) Description 02/09/2021 Orders Only [facility] Nuclear Medicine [address] [place] [address] Shiva Duran MD [address] [place] [address] Social History Tobacco Use Types Packs/Day Years [...] Info) Description 02/05/2025 11:00 AM EDT Follow-Up [facility] Renal Transplant [address] [place] [address] Vinicio Harris MD [address] [place] [address] 02/05/2025 11:45 AM EDT Follow-Up [facility] Renal Transplant [address] [place] [address] 02/05/2025 12:30 PM EDT Social Work [facility] Renal Transplant [address] [place] [address] Michelet Swartz documented as of this encounter Visit Diagnoses Not on filedocumented in this encounter Care Teams Napper Grinder Relationship Specialty Start Date End Date Ally Ferreira [address] [place] [address] PCP - General 02/04/24 documented as of this encounter
--- OUTSIDE RECORDS SUMMARY | 2024-07-17 11:25 | XMS_ITS | Encounter Summary ---
Author Organization [facility] Address [address] [facility] [address] [place] [address] Phone Care Team Providers Care Patent Legal Assistant Name Role Phone Azucena Bradley MD Primary Care Provider Reason for Visit * Reason Comments Med Refill Encounter Details Date Type Department Care Team ([facility] st Contact Info) Description 06/04/2023 Refill [facility] [address] [place] [phone] Wesley Pagan MD [address] [facility] [address] [place] [phone] Social History Tobacco Use Types Packs/Day Years [...] on filedocumented in this encounter Care Teams Patent Legal Assistant Relationship Specialty Start Date End Date Azucena Bradley MD [address] [place] [address], Floor [address] [place] [address] PCP - General Internal Medicine 01/22/24 documented as of this encounter
--- OUTSIDE RECORDS SUMMARY | 2024-07-17 11:25 | XMS_ITS | Encounter Summary ---
Author Organization [employer] Address [address] [facility] [address] [place] [address] Care Team Providers Care Reamer Hand Name Role Phone Viri Wall Primary Care Provider [phone] Ally Ferreira MD Primary Care Pro vider Reason for Visit * Reason Comments Med Refill Encounter Details Date Type Department Care Team (Late st Contact Info) Description 06/06/2022 Refill [facility] [address] [place] [address] Adelaide Cano DO [address] [place] [address] Social History Tobacco Use Types Packs/Day Years [...] AM EST T/C placed to pt via [facility] Worker Carlos #[id number]. 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 Advised will update provider. documented in this encounter Plan of Treatment Upcoming Encounters Date Type Department Care Team (Late st Contact Info) Description 09/02/2024 10:15 AM EDT Office Visit [facility] [address] [place] [phone] Ally Ferreira MD [address] [place] [address] [phone] documented as of this encounter Visit Diagnoses Not on filedocumented in this encounter Care Teams Reamer Hand Relationship Specialty Start Date End Date Viri Wall FNP [address] [place] [address] [phone] PCP - General Family Medicine 06/06/22 07/24/22 Ally Ferreira MD [address] [place] [address] [phone] PCP - General Internal Medicine 07/25/22 documented as of this encounter
--- OUTSIDE RECORDS SUMMARY | 2024-07-17 11:25 | XMS_ITS ---
Author Organization [facility] Address [address] [place] [address] Care Team Providers Care Armature Winder Repair Helper Name Role Phone Dory Martin Unavailable [phone] Encounters Encounter Location Date Provider Diagnosis [facility] [address] [place] [address] 02/13/2023 Dory Martin Plan Of Treatment No Information Progress Notes * Mansoor MTZlDOB: 2 (33 yo F)Acc No.[id number]:02/13/2023 Progress Notes Patient:?Natali MTZ Provider:?Dory Martin DPM :1990???Age:32 Y???Sex:Female D ate:02/13/2023 [id number] Subjective: * Chief Complaints: * ??? * Medical History:? Objective: * Vitals:? Assessment: Plan: * Treatment: * Images: * The named appointment provid er may or may not be the originator of this progress note, and it is not deemed complete until electronically signed by the appointment provider. Sign off status: Pending * Provider:?Dory Martin DPM Date:? Generated for Enoc mckinney/Siri/Erickitting on:?07/17/2024 11:25 AM EDT
--- OUTSIDE RECORDS SUMMARY | 2024-07-17 11:25 | XMS_ITS | Clinical Summary ---
Author Organization [facility] Address [address] [place] [address] Phone Care Team Providers Care Auto Vinyl Top Installer Name Role Phone Mt Hooker MD Primary Care Provider [phone] Allergies No known active allergies Medications CALCITRIOL [...] 1:30 PM EDT Office Visit Orthopedic Surgery [facility] [address] [address] Siva Lino DPM Poorly controlled type 2 diabetes mellitus with neuropathy (CMS/HCC) (Primary Dx); Neuropathy; Callus; Localized edema; Hammertoes of both feet; Ulcer of right heel, with fat layer exposed (CMS/HCC) 06/17/2024 10:15 AM EST Office Visit Orthopedic [place] [address] [address] Siva Lino DPTristin Controlled type 2 diabetes with neuropathy (CMS/HCC) (Primary Dx); Hammertoes of both feet; Dermatophytosis, nail; Ulcer of right heel, with fat layer exposed (CMS/HCC) 06/10/2024 10:00 AM EST Office Visit Orthopedic [facility] [address] [address] Siva Lino DPTristin Controlled type 2 diabetes with neuropathy (CMS/HCC) (Primary Dx); Ulcer of right heel, with fat layer exposed (CMS/HCC); Non-pressure chronic ulcer of right ankle with fat layer exposed (CMS/HCC) 06/03/2024 10:15 AM EST Office Visit Orthopedic Surgery [facility] [address] [address] Siva Lino, DPM Hammertoes of both feet (Primary Dx); Controlled type 2 diabetes with neuropathy (CMS/HCC); Ulcer of right heel, with fat layer exposed (CMS/HCC) 05/06/2024 1:00 PM EST Office Visit Orthopedic Surgery [facility] [address] [address] Siva Lino DPTristin Controlled type 2 diabetes with neuropathy (CMS/HCC) (Primary Dx); Hammertoes of both feet; Xerosis cutis; Ulcer of right heel, limited to breakdown of skin ([facility]); Dermatophytosis, nail from Last 3 Months Immunizations Name Administration Dates Next Due COVID-19 (Moderna/Spikevax) 12yo and older 01/26 Moderna SARS-CoV-2 COVID-19, mRNA, LNP-S, preservative free 07/09/2020,05/26/2020 Medical History Medical History Date Comments Kidney failure DX:Kidney failur e Diabetes mellitus ([facility]) DX:D iabetes mellitus ([facility]) Diabetic neuropathy ([facility]) DX :Diabetic neuropathy ([facility]) Type 1 diabetes ([facility]) DX:Typ e 1 diabetes ([facility]) Hypertension DX:Hypertension Social History Tobacco Use Types [...] AM EDT Office Visit [facility] [place] [address] [address] Siva Lino DPM 175 [facility] 250 [place] [address] Health Maintenance Due Date Last Done Comments [...] Test (04/06/2022) Annual BMP Blood Test abstracted [facility] Provider HEALTH MAINTENANCE Final Result * Hepatitis C Screening (11/30/2020) Hepatitis C Screening abstracted Historical Provider MD HEALTH MAINTENANCE Final Result from Last 3 Months or Most Recently Relevant to Health Maintenance Insurance MEDICAID - [place] MEDICARE Care Teams Auto Vinyl Top Installer Relationship Specialty Start Date End Date Mt Hooker MD [address] [place] [address] [place] [phone] PCP - General Internal Medicine 09/26/21
--- OUTSIDE RECORDS SUMMARY | 2024-07-17 11:25 | XMS_ITS | Encounter Summary ---
Author Organization [facility] Address [address] [place] [address] Phone Care Team Providers Care Inspector Wire Products Name Role Phone Azucena Bradley MD Primary Care Provider Reason for Visit * Reason Comments Med Refill Encounter Details Date Type Department Care Team (Late st Contact Info) Description 06/22/2022 Refill [facility] [address] [place] [address] Forrest Adamson MD Social History Tobacco [...] filedocumented in this encounter Care Teams Inspector Wire Products Relationship Specialty Start Date End Date Azucena Bradley MD [address] [place] [address], [facility] [address] [place] [address] PCP - General Internal Medicine 01/22/24 documented as of this encounter
--- OUTSIDE RECORDS SUMMARY | 2024-07-17 11:25 | XMS_ITS | Encounter Summary ---
Author Organization [employer] Address [address] [facility] 7 [place] [address] Care Team Providers Care Rn Access Name Role Phone Ally Ferreira MD Primary Care Pro vider Reason for Visit * Reason Onset Date Comments c/b request 01/19/2023 Encounter Details Date Type Department Care Team ([facility] st Contact Info) Description 01/19/2023 Telephone [facility] [address] [place], [place] [phone] Ally Ferreira MD [address] [place] [address] c/b request Social History Tobacco Use Types [...] transplant denial. Patient states it was at [facility] that it was denied, due to vascular problems. * Telephone Encounter - Yasmin Krishna RN - 01/23/2023 10:59 AM EDT Telephone call to regarding the following message from Dr. Perry : Please can you check with pt denial was from [facility] or from [facility]? No answer. Message was left to return call to the green team nurses. * Telephone Encounter - Jacinta Porras - 01/19/2023 1:45 PM EDT Tc from pt advising PCP pt was denied for kidney transplant. Please contact pt at [phone] documented in this encounter Plan of Treatment Upcoming Encounters Date Type Department Care Team (Late st Contact Info) Description 09/02/2024 10:15 AM EDT Office Visit [facility] [address] [place] [address] Ally Ferreira MD [address] [place] [address] documented as of this encounter Visit Diagnoses Not on filedocumented in this encounter Additional Health Concerns Assessment Noted Time PHQ-9 Depression Total Score: 0 08/11/19 9:11 AM EDT documented as of this encounter Care Teams Rn Access Relationship Specialty Start Date End Date Ally Ferreira MD [address] [place] [phone] PCP - General Internal Medicine 07/25/22 documented as of this encounter
--- OUTSIDE RECORDS SUMMARY | 2024-07-17 11:25 | XMS_ITS | Encounter Summary ---
Author Organization [employer] Address [address] [facility] 7 [place] [address] Care Team Providers Care Feeder Catcher Name Role Phone Ally Ferreira MD Primary Care Pro vider Reason for Visit * Reason Comments Med Refill Encounter Details Date Type Department Care Team (Late st Contact Info) Description 07/14/2024 Refill [facility] [address] [place], [place] [phone] Ally Ferreira MD [address] [place] [address] Hypertension, unspecified type Social History Tobacco Use [...] Description 09/02/2024 10:15 AM EDT Office Visit [facility] [address] [place] [phone] Ally Ferreira MD [address] [place] [phone] documented as of this encounter Visit Diagnoses Diagnosis Hypertension, unspecified type documented in this encounter Additional Health Concerns Assessment Noted Time PHQ-9 Depression Total Score: 0 07/31/19 24 11:09 AM EDT documented as of this encounter Care Teams Feeder Catcher Relationship Specialty Start Date End Date Ally Ferreira MD [address] [place] [phone] PCP - General Internal Medicine 07/25/22 documented as of this encounter
--- OUTSIDE RECORDS SUMMARY | 2024-07-17 11:25 | XMS_ITS | Encounter Summary ---
Demographics Address [address] [place] [address] Mobile Phone Home Phone Preferred Language Maltese Marital Status Mormonism Affiliation Unknown Race White Ethnic Group Unknown Author Organization [facility] Address [address] [place] [address] Care Team Providers Care Meat Process Worker Name Role Phone Ally Ferreira Primary Care Provider [phone] Encounter Details Date Type Department Care Team (Late st Contact Info) Description 12/02/2019 Orders Only [facility] Nuclear Medicine [address] [place] [address] Shiva Duran MD [address] [place] [address] Social History Tobacco Use Types Packs/Day Years [...] Info) Description 02/05/2025 11:00 AM EDT Follow-Up [facility] Renal Transplant [address] [place] [address] Vinicio Harris MD [address] [place] [address] 02/05/2025 11:45 AM EDT Follow-Up [facility]al Transplant [address] [place] [address] 02/05/2025 12:30 PM EDT Social Work [facility] Renal Transplant [address] [place] [address] Michelet Swartz documented as of this encounter Visit Diagnoses Not on filedocumented in this encounter Care Teams Meat Process Worker Relationship Specialty Start Date End Date Ally Ferreira [address] [place] [phone] PCP - General 02/04/24 documented as of this encounter
--- OUTSIDE RECORDS SUMMARY | 2024-07-17 11:26 | XMS_ITS | Clinical Summary ---
Author Organization [facility] Address [address] [place] [phone] Phone Care Team Providers Care Senior Cisco Network Engineer Name Role Phone Azucena Bradley MD Primary Care Provider [phone] Medications losartan (COZAAR) 50 MG tablet TAKE [...] Encounters Date Type Department Care Team Description 07/16/2024 Treatment [facility] [address] [place] [phone] Atul Burton MD End stage renal disease; Dependence on renal dialysis 07/07/2024 Treatment [facility] [address] [phone] Atul Burton MD End stage renal disease; Dependence on renal dialysis 07/02/2024 Treatment [facility] [address] [phone] Atul Burton MD End stage renal disease; Dependence on renal dialysis 06/30/2024 Treatment [facility] [address] [phone] Atul Burton MD End stage renal disease; Dependence on renal dialysis 06/18/2024 Treatment [facility] [address] [phone] Atul Burton MD End stage renal disease; Dependence on renal dialysis 06/13/2024 Treatment [facility] [address] [phone] Atul Burton MD End stage renal disease; Dependence on renal dialysis 05/28/2024 Treatment [facility] [address] [phone] Atul Burton MD 05/26/2024 Treatment [facility] [address] [phone] Atul Burton MD 05/21/2024 Orders Only [facility] [address] [phone] Atul uBrton MD 05/19/2024 Treatment [facility] [address] [phone] Atul Burton MD 05/16/2024 Treatment [facility] [address] [phone] Atul Burton MD 05/14/2024 Treatment [facility] [address] [phone] Atul Burton MD 05/07/2024 Treatment [facility] [address] [address] Atul Burton MD 04/18/2024 Treatment [facility] [address] [phone] Atul Burton MD from Last 3 Months [...] Exam 05/17/2020 Diabetes: Visual Foot Exam 05/17/2020 Diabetes: Hemoglobin A1C 07/22/2024 025, 09/06/2023, 02/27/2023, Additional history exists Influenza Vaccine (Season Ended) 2024 01/11/2023, 01/20/2015, 01/30/2013, Additional history exists Pneumococcal Vaccine: Pediat rics (0 to 5 Years) and At-Risk Patients (6 to 64 Years) Completed 04/26/2023, 08/21/2018, 08/02/2018, Additional history exists Procedures Procedure Name Priority Date/Time Associated Diagnosis Comments HEMOGLOBIN Routine 07/11/2024 3:00 AM EDT HEMOGLOBIN Routine 07/02/2024 3:00 AM EDT LIH (HC) Routine 06/30/2024 3:00 AM EDT PHOSPHATE ( [...] EST from Last 3 Months Results * (ABNORMAL) Hemoglobin (07/11/2024 3:00 AM EDT) Only the most recent of5 resultswithin the time period is included. Hgb 9.5(L) 11.2 - 15.7 g/dL [facility] Hemoglobin x 3 28.5(L) 33.6 - 47.1 g/dL [facility] 07/11/2024 3:00 AM EDT 07/12/2024 1:26 PM EDT us Atul Burton MD LAB BLOOD ORDERABLES Final Re sult Performing Organization Address [facility] Co de Phone Number [facility] [address] [place] [address] * LIH (06/30/2024 3:00 AM EDT) Only the most recent of6 resultswithin the time period is included. Lipemia Normal Normal [facility] Icterus Normal Normal [facility] Hemolysis Normal Normal [facility] 06/30/2024 3:00 AM EDT 07/01/2024 12:12 PM EDT Atul Burton MD LAB [id number] SOLICITED RESULTS Final Result Performing Organization Address [facility] de Phone Number [facility] [address] [place] [address] * (ABNORMAL) Phosphorus (06/30/2024 3:00 AM EDT) Only the most recent of3 resultswithin the time period is included. Phosphorus, Serum 10.1(H) 2.5 - 5.0 mg/dL [facility] 06/30/2024 3:00 AM EDT 07/01/2024 12:12 PM EDT Atul Burton MD LAB BLOOD ORDERABLES Final Re sult Performing Organization Address [facility] de Phone Number [facility] [address] [place] [address] * (ABNORMAL) Kt/V Natural Log, URR (06/18/2024 [...] 2:50 PM EST Atul Burton MD LAB [id number] SOLICITED RESULTS Final Result Performing Organization Address [facility] Co de Phone Number [facility] [address] [place] [address] * (ABNORMAL) Calcium Phosphorus Product, Adjusted (06/18/2024 [...] 2:53 PM EST Atul Burton MD LAB [id number] SOLICITED RESULTS Final Result Performing Organization Address [facility] de Phone Number [facility] [address] [place] [address] * (ABNORMAL) TSAT (06/18/2024 3:00 AM EST) [...] ORDERABLES Final Re sult Performing Organization Address [facility] Co de Phone Number [facility] [address] [place] [address] * (ABNORMAL) CBC and Differential (06/18/2024 3:00 [...] ORDERABLES Final Re sult Performing Organization Address [facility]/ZIP Co de Phone Number [facility] [address] [place] [address] * ALT (06/18/2024 3:00 AM EST) Only the most recent of3 resultswithin the time period is included. ALT (SGPT) 18 10 - 49 U/L [facility] 06/18/2024 3:00 AM EST 06/19/2024 2:53 PM EST Atul Burton MD LAB BLOOD ORDERABLES Final Re sult Performing Organization Address [facility] Co de Phone Number [facility] [address] [place] [address] * AST (06/18/2024 3:00 AM EST) Only the most recent of3 resultswithin the time period is included. AST (SGOT) 15 <34 U/L [facility] 06/18/2024 3:00 AM EST 06/19/2024 2:53 PM EST Atul Burton MD LAB BLOOD ORDERABLES Final Re sult Performing Organization Address [facility] Co de Phone Number [facility] [address] [address] * Protein, total (06/18/2024 3:00 AM EST) Only the most recent of3 resultswithin the time period is included. Total Protein 7.6 6.4 - 8.9 g/dL [facility] 06/18/2024 3:00 AM EST 06/19/2024 2:53 PM EST Atul Burton MD LAB BLOOD ORDERABLES Final Re sult Performing Organization Address [facility] Co de Phone Number [facility] [address] [address] * Alkaline phosphatase (06/18/2024 3:00 AM EST) Only the most recent of3 resultswithin the time period is included. Alkaline Phosphatase 111 46 - 116 U/L [facility] 06/18/2024 3:00 AM EST 06/19/2024 2:53 PM EST us Atul Burton MD LAB BLOOD ORDERABLES Final Re sult Performing Organization Address [facility] Co de Phone Number [facility] [address] [place] [address] * Magnesium (06/18/2024 3:00 AM EST) Only the most recent of3 resultswithin the time period is included. Magnesium 2.4 1.9 - 2.7 mg/dL [facility] 06/18/2024 3:00 AM EST 06/19/2024 2:53 PM EST us Atul Burton MD LAB BLOOD ORDERABLES Final Re sult Performing Organization Address [facility] de Phone Number [facility] [address] [place] [address] * (ABNORMAL) Lactate dehydrogenase (06/18/2024 3:00 AM EST) Only the most recent of3 resultswithin the time period is included. LDH 283(H) 120 - 246 U/L [facility] 06/18/2024 3:00 AM EST 06/19/2024 2:53 PM EST us Atul Burton MD LAB BLOOD ORDERABLES Final Re sult Performing Organization Address [facility] de Phone Number [facility] [address] [place] [address] * (ABNORMAL) Glucose, random (06/18/2024 3:00 AM EST) Only the most recent of3 resultswithin the time period is included. Glucose 182(H) 74 - 109 mg/dL [facility] 06/18/2024 3:00 AM EST 06/19/2024 2:53 PM EST us Atul Burton MD LAB BLOOD ORDERABLES Final Re sult Performing Organization Address [facility] de Phone Number [facility] [address] [place] [address] * (ABNORMAL) Ferritin (06/18/2024 3:00 AM EST) Only the most recent of3 resultswithin the time period is included. Ferritin 1,023(H) 10 - 291 ng/mL [facility] 06/18/2024 3:00 AM EST 06/19/2024 2:53 PM EST Atul Burton MD LAB BLOOD ORDERABLES Final Re sult Performing Organization Address [facility] de Phone Number [facility] [address] [place] [address] * (ABNORMAL) Creatinine, serum (06/18/2024 3:00 AM EST) Only the most recent of3 resultswithin the time period is included. Creatinine 10.15(H) 0.55 - 1.02 mg/dL [facility] 06/18/2024 3:00 AM EST 06/19/2024 2:53 PM EST Atul Burton MD LAB BLOOD ORDERABLES Final Re sult Performing Organization Address [facility] de Phone Number [facility] [address] [place] [address] * (ABNORMAL) Bilirubin, total (06/18/2024 3:00 AM EST) Only the most recent of3 resultswithin the time period is included. Total Bilirubin <0.2(L) 0.3 - 1.2 mg/dL [facility] 06/18/2024 3:00 AM EST 06/19/2024 2:53 PM EST Atul Burton MD LAB BLOOD ORDERABLES Final Re sult Performing Organization Address [facility] de Phone Number [facility] [address] [place] [address] * (ABNORMAL) Electrolyte panel (06/18/2024 3:00 AM [...] ORDERABLES Final Re sult Performing Organization Address [facility] de Phone Number [facility] [address] [place] [address] * Confirmation Test HCV (04/23/2024 3:00 AM EST) Pathologist [facility] Hep C Ab Confirmation Not needed [facility] 04/23/2024 3:00 AM EST 04/24/2024 1:05 PM EST Atul Burton MD LAB BLOOD ORDERABLES Final Re sult Performing Organization Address [facility] de Phone Number [facility] [address] [place] [address] * HEPATITIS C ABS W/REFLEX RNA DETECTR (04/23/2024 3:00 AM EST) Pathologist [facility] Hep C Virus Ab Non-Reacti ve Non-Reacti ve [facility] 04/23/2024 3:00 AM EST 04/24/2024 1:15 PM EST us Atul Burton MD LAB [id number] SOLICITED RESULTS Final Result Performing Organization Address [facility] de Phone Number [facility] [address] [place] [address] * Hepatitis B Surface Ag w/Reflex Confirmation (04/23/2024 3:00 AM EST) Hep B Surface Antigen Negative Negative [facility] 04/23/2024 3:00 AM EST 04/24/2024 1:15 PM EST Atul Burton MD LAB BLOOD ORDERABLES Final Re sult Performing Organization Address [facility] de Phone Number [facility] [address] [place] [address] * Aluminum level (04/23/2024 3:00 AM EST) Aluminum 7 1 - 20 ug/L [facility] 04/23/2024 3:00 AM EST 04/24/2024 1:14 PM EST Atul Burton MD LAB BLOOD ORDERABLES Final Re sult Performing Organization Address [facility] de Phone Number [facility] [address] [place] [address] * Hepatitis B Surface Antibody (04/23/2024 3:00 AM EST) Hep B Surface Antibody 124 mIU/mL [facility] Comment: Interpretation: <10: No Immunity >=10: Probable Immunity 04/23/2024 3:00 AM EST 04/24/2024 1:15 PM EST Atul Burton MD LAB BLOOD ORDERABLES Final Re sult Performing Organization Address [facility] de Phone Number [facility] [address] [place] [address] * Uric Acid (04/23/2024 3:00 AM EST) Uric Acid 5.1 2.3 - 6.6 mg/dL [facility] 04/23/2024 3:00 AM EST 04/24/2024 1:15 PM EST Atul Burton MD LAB BLOOD ORDERABLES Final Re sult Performing Organization Address [facility] de Phone Number [facility] [address] [place] [address] * PTH, Intact (04/23/2024 3:00 AM EST) PTH, Intact 404 160 - 721 pg/mL [facility] Comment: Suggested (KDIGO) ESRD maintenance range is two to nine times the upper normal limit (80.1 pg/mL) for the laboratory. 04/23/2024 3:00 AM EST 04/24/2024 1:15 PM EST Atul Burton MD LAB BLOOD ORDERABLES Final Re sult Performing Organization Address [facility] de Phone Number [facility] [address] [place] [address] * (ABNORMAL) Hemoglobin A1c (04/23/2024 3:00 AM [...] ORDERABLES Final Re sult Performing Organization Address [facility] de Phone Number [facility] [address] [place] [address] * (ABNORMAL) Lipid panel (04/23/2024 3:00 AM [...] Final Re sult [facility] [address] [place] [address] from Last 3 Months Insurance [place] Member Subscriber Plan / Payer ( fective 2020-) Name:Natali Mtz Relation to Subscriber:Self Name:Natali Mtz Payer ID:Not on file Group ID:Not on file Type:Not on file Address: [place] [phone] MEDICARE Care Teams Senior Cisco Network Engineer Relationship Specialty Start Date End Date Azucena Bradley MD [facility], Floor [address] [place] [address] PCP - General Internal Medicine 01/22/24
== END 2024-07-17 10:55 | disposition home or self-care (01) ==
LOC: HO.HPS 10:25
PROVIDERS: PCP Student in an Organized Health Care Education/Training Program; Visit Provider Hospitalist
DX: J30.9 Allergic rhinitis, unspecified (principal); T78.40XA Allergy, unspecified, initial encounter; R91.8 Other nonspecific abnormal finding of lung field; R06.09 Other forms of dyspnea; J45.40 Moderate persistent asthma, uncomplicated
CPT/HCPCS: 99214

== ENCOUNTER 2024-07-17 10:24 | Outpatient (REF) | payer MEDICARE, MEDICAID, SELFPAY ==
[2024-07-17 11:20] LABS: MANUAL DIFF FLAG NO
[2024-07-17 11:55] LABS: Basophils Absolute Auto 0.1 X10*3/uL (0.0-0.2); Basophils Percent Auto 0.9 % (0-2); Eosinophils Absolute Auto 0.9 X10*3/uL (0.0-0.4); Eosinophils Percent Auto 6.4 % (0-4); Hematocrit 29.7 % (37.0-47.0); Hemoglobin 9.7 g/dl (12.0-16.0); Imm Gran Abs Auto 0.09 X10*3/uL (0.00-0.03); Imm Gran Pct Auto 0.6 % (0.0-0.4); Lymphocytes Percent Auto 13.6 % (20-40); Mean Corpuscular HGB Conc 32.7 g/dl (31.0-35.0); Mean Corpuscular Hemoglobin 30.3 pg (27.0-33.0); Mean Corpuscular Volume 92.8 fL (80.0-98.0); Monocytes Absolute Auto 1.1 X10*3/uL (0.1-1.2); Monocytes Percent Auto 7.2 % (2-11); Neutrophils Absolute Auto 10.5 x10*3/uL (2.0-8.3); Neutrophils Percent Auto 71.3 % (45-73); Platelet Count 296 X10*3/uL (160-400); Red Cell Distribution Width 15.9 % (11.0-16.0); White Blood Count 14.8 X10*3/uL (4.8-10.8)
--- OUTSIDE RECORDS SUMMARY | 2024-07-17 12:20 | XMS_ITS | Clinical Summary ---
Demographics Address [address] [place] [address] Mobile Phone Home Phone Preferred Language Tongan Marital Status Sabianist Affiliation Unknown Race White Ethnic Group Unknown Author Organization [facility] Address [address] [place] [address] Care Team Providers Care Rabbit Fancier Name Role Phone Ally Ferreira Primary Care Provider [phone] Allergies Active Allergy Reactions Criticality Noted Date [...] 1 each 3 3 Active Dexcom G6 Mathematical Engineering Technician misc Use as directed. E10.65 1 each [...] Type Department Care Team Description 07/10/2024 Telephone [facility] Transplant Department [address] [place] [address] Sabina Velázquez, RN 06/20/2024 Orders Only [facility] Transplant Department [address] [place] [address] Sabina Velázquez, RN ESRD (end stage renal disease) (Primary Dx); Pre-transplant evaluation for kidney transplant 06/20/2024 Telephone [facility] Transplant Department [address] [place] [address] Sabina Velázquez, RN from Last 3 Months Immunizations Immunization Administration Dates Next Due Covid-19 Monovalent Vaccine, Moderna, mRNA, PF 07/09/2020,05/26/2020 [id number] 05/05/1993,02/22/1993,12/22/1992 Diphtheria, Tetanus Toxoids and Acellular Pertussis [...] Info) Description 02/05/2025 11:00 AM EDT Follow-Up [facility] Renal Transplant [address] [place] [address] Vinicio Harris MD [address] [place] [address] 02/05/2025 11:45 AM EDT Follow-Up [facility] Renal Transplant [address] [place] [address] 02/05/2025 12:30 PM EDT Social Work [facility] Ren[facility] Transplant [address] [place] [address] Michelet Swartz Health Maintenance Due Date Last [...] Additional history exists Procedures * Due to [place] state law, [...] 10.6(H) <=5.6 % 02/27/2023 1:20 PM EST [facility] Comment: A1C Recommendation for Non- Adults with Diabetes: <7.0% ADA 2011 Standards of Medical Care in Diabetes Blood 02/27/2023 1:05 PM EST 02/27/2023 1:20 PM EST us Robert Meredith MD LAB POCT ORDERABLES - DEVICE Final Result [facility], POC [address] [place] [address], * (ABNORMAL) Basic Metabolic Panel, Outside Lab [...] NON-REACT JOSE RAFAEL 12/01/2020 8:37 AM EDT [facility] Signal To Cut-Off 0.02 <1.00 12/01/2020 8:37 AM EDT [facility] Comment: HCV antibody was non-reactive. There is no laboratory evidence of HCV infection. In most cases, no further action is required. However, if recent HCV exposure is suspected, a test for HCV RNA (test code 86935) is suggested. For additional information please refer to http://[employer].Blipify/faq/UOA36g6 (This link is being provided for informational/ educational purposes only.) Blood Structure of peripheral vein / Unknown Venipuncture / Unknown 11/30/2020 11:09 AM EDT 11/30/2020 11:33 AM EDT Narrative DILIP GILLETTE - 12/01/2020 8:37 AM EDT [facility] Received Date: Stefan Robbins MD LAB BLOOD ORDERABLES Final Result [facility] [address]rd [address], [place] [address], Speak With Me [facility] [address] [facility] [address]rd [address], [place] [address], from Last 3 Months or Most Recently Relevant to Health Maintenance Insurance * Guarantor: Natali Mtz Account Type Relation to Patient Date of Phone Billing Address Personal/Family Self 1990 [address] [place] [address] MEDICARE [facility] * Guarantor: Natali Mtz Account Type Relation to Patient Date of Phone Billing Address Transplant Self 1990 [address] [place] [address] MEDICARE [facility] Advance Directives Documents on File Type Date Recorded Patient Business Development Specialist Expl anation Health Care Proxy 01/26/2023 10:42 AM 01/18/23 Health Care Proxy 12/11/2019 8:18 AM 11/30 Care Teams Rabbit Fancier Relationship Specialty Start Date End Date Ally Ferreira [address] [place] [address] PCP - General 02/04/24
--- OUTSIDE RECORDS SUMMARY | 2024-07-17 12:20 | XMS_ITS | Encounter Summary ---
Author Organization [facility] Address [address] [place] [address] Care Team Providers Care Textile Machinery Instructor Name Role Phone Ally Ferreira Primary Care Provider [phone] Encounter Details Date Type Department Care Team (Late st Contact Info) Description 02/09/2021 Orders Only [facility] Nuclear Medicine [address] [place] [address] Shiva Duran MD [address] [place] [address] Social History Tobacco Use Types Packs/Day Years [...] Info) Description 02/05/2025 11:00 AM EDT Follow-Up [facility] Renal Transplant [address] [place] [address] Vinicio Harris MD [address] [place] [address] 02/05/2025 11:45 AM EDT Follow-Up [facility] Renal Transplant [address] [place] [address] 02/05/2025 12:30 PM EDT Social Work [facility] Renal Transplant [address] [place] [address] Michelet Swartz documented as of this encounter Visit Diagnoses Not on filedocumented in this encounter Care Teams Textile Machinery Instructor Relationship Specialty Start Date End Date Ally Ferreira [address] [place] [phone] PCP - General 02/04/24 documented as of this encounter
--- OUTSIDE RECORDS SUMMARY | 2024-07-17 12:20 | XMS_ITS | Encounter Summary ---
Author Organization [employer] Address [address] [facility] 7 [place] [address] Care Team Providers Care Hunting Sales Associate Name Role Phone Ally Ferreira MD Primary Care Pro vider Reason for Visit * Reason Onset Date Comments c/b request 01/19/2023 Encounter Details Date Type Department Care Team ([facility] st Contact Info) Description 01/19/2023 Telephone [facility] [address] [place], [place] [phone] Ally Ferreira MD [address] [place] [address] c/b request Social History Tobacco Use Types [...] transplant denial. Patient states it was at [facility] that it was denied, due to vascular problems. * Telephone Encounter - Yasmin Krishna RN - 01/23/2023 10:59 AM EDT Telephone call to regarding the following message from Dr. Perry : Please can you check with pt denial was from [facility] or from [facility]? No answer. Message was left to return call to the green team nurses. * Telephone Encounter - Jacinta Porras - 01/19/2023 1:45 PM EDT Tc from pt advising PCP pt was denied for kidney transplant. Please contact pt at [phone] documented in this encounter Plan of Treatment Upcoming Encounters Date Type Department Care Team (Late st Contact Info) Description 09/02/2024 10:15 AM EDT Office Visit [facility] [address] [place] [address] Ally Ferreira MD [address] [place] [address] documented as of this encounter Visit Diagnoses Not on filedocumented in this encounter Additional Health Concerns Assessment Noted Time PHQ-9 Depression Total Score: 0 08/11/19 9:11 AM EDT documented as of this encounter Care Teams Hunting Sales Associate Relationship Specialty Start Date End Date Ally Ferreira MD [address] [place] [address] PCP - General Internal Medicine 07/25/22 documented as of this encounter
--- OUTSIDE RECORDS SUMMARY | 2024-07-17 12:20 | XMS_ITS | Encounter Summary ---
Demographics Address [address] [place] [address] Mobile Phone Home Phone Preferred Language Welsh Marital Status Mu-Ism Affiliation Unknown Race White Ethnic Group Unknown Author Organization [facility] Address [address] [place] [address] Care Team Providers Care Evp Chief Exploration Officer Name Role Phone Ally Ferriera Primary Care Provider [phone] Encounter Details Date Type Department Care Team (Late st Contact Info) Description 05/07/2023 Orders Only [facility] Nuclear Medicine [address] [place] [address] Shiva Duran MD [address] [place] [address] Social History Tobacco Use Types Packs/Day Years [...] Info) Description 02/05/2025 11:00 AM EDT Follow-Up [facility] Renal Transplant [address] [place] [address] Vinicio Harris MD [address] [place] [address] 02/05/2025 11:45 AM EDT Follow-Up [facility] Renal Transplant [address] [place] [address] 02/05/2025 12:30 PM EDT Social Work [facility]al Transplant [address] [place] [address] Michelet Swartz documented as of this encounter Visit Diagnoses Not on filedocumented in this encounter Care Teams Evp Chief Exploration Officer Relationship Specialty Start Date End Date Ally Ferreira [address] [place] [phone] PCP - General 02/04/24 documented as of this encounter
--- OUTSIDE RECORDS SUMMARY | 2024-07-17 12:20 | XMS_ITS | Referral Summary ---
Demographics Address [address] [place] [address] Mobile Phone Home Phone Preferred Language Dutch Marital Status Anglican Affiliation Unknown Race White Ethnic Group Unknown Author Organization [facility] Address [address] [place] [address] Care Team Providers Care Black Powder Glazing Operator Name Role Phone Ally Ferreira Primary Care Provider [phone] Encounters Date Type Department Care Team Description 07/10/2024 Telephone [facility] Transplant Department [address] [place] [address] Sabina Velázquez RN 06/20/2024 Orders Only [facility] Transplant Department [address] [place] [address] Sabina Velázquez RN ESRD (end stage renal disease) (Primary Dx); Pre-transplant evaluation for kidney transplant 06/20/2024 Telephone [facility] Transplant Department [address] [place] [address] [phone] Sabina Velázquez RN from Last 3 Months [...] 1 each 3 3 Active Dexcom G6 Professional Employer Consultant misc Use as directed. E10.65 1 each [...] Covid-19 Monovalent Vaccine, Moderna, mRNA, PF 07/09/2020,05/26/2020 [id number] 05/05/1993,02/22/1993,12/22/1992 Diphtheria, Tetanus Toxoids and Acellular Pertussis [...] Info) Description 02/05/2025 11:00 AM EDT Follow-Up [facility] Renal Transplant [address] [place] [address] Vinicio Harris MD [address] [place] [address] 02/05/2025 11:45 AM EDT Follow-Up [facility] Renal Transplant [address] [place] [address] 02/05/2025 12:30 PM EDT Social Work [facility] Renal Transplant [address] [place] [address] Michelet Swartz Procedures * Due to [place] state law, this organization might not be [...] to Health Maintenance Results * Due to [place] state law, this organization might not be sharing negative HIV tests. * (ABNORMAL) POCT Glycosylated Hemoglobin (HGB A1C), interfaced (02/27/2023 1:05 PM EST) Hemoglobin A1C, POCT 10.6(H) <=5.6 % 02/27/2023 1:20 PM EST [facility] Comment: A1C Recommendation for Non- Adults with Diabetes: <7.0% ADA 2011 Standards of Medical Care in Diabetes Blood 02/27/2023 1:05 PM EST 02/27/2023 1:20 PM EST us Robert Meredith MD LAB POCT ORDERABLES - DEVICE Final Result [facility], POC [address] [place] [address], * (ABNORMAL) Basic Metabolic Panel, Outside Lab [...] NON-REACT JOSE RAFAEL 12/01/2020 8:37 AM EDT [employer] [facility] Signal To Cut-Off 0.02 <1.00 12/01/2020 8:37 AM EDT [employer] [facility] Comment: HCV antibody was non-reactive. There is no laboratory evidence of HCV infection. In most cases, no further action is required. However, if recent HCV exposure is suspected, a test for HCV RNA (test code 65062) is suggested. For additional information please refer to http://education.People [employer]/faq/QCD02s4 (This link is being provided for informational/ educational purposes only.) Blood Structure of peripheral vein / Unknown Venipuncture / Unknown 11/30/2020 11:09 AM EDT 11/30/2020 11:33 AM EDT [facility] 12/01/2020 8:37 AM EDT [facility] Received Date: Stefan Robbins MD LAB BLOOD ORDERABLES Final Result [facility] [address] [facility] 3rd Floor, [place] [address], [employer] [facility] [address] [facility] 3rd Floor, [place] [address], from Last 3 Months or Most Recently Relevant to Health Maintenance Insurance * Guarantor: Natali Mtz Account Type Relation to Patient Date of Phone Billing Address Personal/Family Self 1990 [address] [place] [address] MEDICARE [facility] * Guarantor: Natali Mtz Account Type Relation to Patient Date of Phone Billing Address Transplant Self 1990 [address] [place] [address] MEDICARE [facility] Advance Directives Documents on File Type Date Recorded Patient Worm Sorter Expl anation Health Care Proxy 01/26/2023 10:42 AM 01/18/23 Health Care Proxy 12/11/2019 8:18 AM 11/30 Care Teams Black Powder Glazing Operator Relationship Specialty Start Date End Date Ally Ferreira [address] [place] [address] PCP - General 02/04/24
--- OUTSIDE RECORDS SUMMARY | 2024-07-17 12:20 | XMS_ITS | Encounter Summary ---
Demographics Address [address] [place] [address] Mobile Phone Home Phone Preferred Language Occitan Marital Status Scientologist Affiliation Unknown Race White Ethnic Group Unknown Author Organization [facility] Address [address] [place] [address] Care Team Providers Care Wet Finisher Wool Name Role Phone Ally Ferreira Primary Care Provider [phone] Encounter Details Date Type Department Care Team (Late st Contact Info) Description 01/11/2021 Orders Only [facility] Nuclear Medicine [address] [place] [address] Shiva Duran MD [address] [place] [address] Social History Tobacco Use Types Packs/Day Years [...] Info) Description 02/05/2025 11:00 AM EDT Follow-Up [facility] Renal Transplant [address] [place] [address] Vinicio Harris MD [address] [place] [address] 02/05/2025 11:45 AM EDT Follow-Up [facility] Renal Transplant [address] [place] [address] 02/05/2025 12:30 PM EDT Social Work [facility] Renal Transplant [address] [place] [address] Michelet Swartz documented as of this encounter Visit Diagnoses Not on filedocumented in this encounter Care Teams Wet Finisher Wool Relationship Specialty Start Date End Date Ally Ferreira [address] [place] [address] PCP - General 02/04/24 documented as of this encounter
--- OUTSIDE RECORDS SUMMARY | 2024-07-17 12:20 | XMS_ITS | Encounter Summary ---
Author Organization [facility] Address [address] [place] [address] Phone Care Team Providers Care Dough Puncher Name Role Phone Azucena Bradley MD Primary Care Provider [phone] Encounter Details Date Type Department Care Team (Late st Contact Info) Description 07/16/2024 Treatment [facility]. [address] [address] Edwina Min MD [address] [address] End stage renal disease; Dependence [...] care for end stage renal disease. Attending Upper Doubler: EDWINA MIN Dialysis Location: [facility] DIAL[facility] Schedule: Shift: 2 OVERVIEW Patient is [...] dialysis documented in this encounter Care Teams Dough Puncher Relationship Specialty Start Date End Date Azucena Bradley MD [address] [place] [address], Floor 3 [place] [address] PCP - General Internal Medicine 01/22/24 documented as of this encounter
--- OUTSIDE RECORDS SUMMARY | 2024-07-17 12:20 | XMS_ITS | Encounter Summary ---
Author Organization [facility] Address [address] [facility] [address] [place] [address] Phone Care Team Providers Care Shank Burnisher Name Role Phone Azucena Bradley MD Primary Care Provider Reason for Visit * Reason Comments Med Refill Encounter Details Date Type Department Care Team ([facility] st Contact Info) Description 06/04/2023 Refill [facility] [address] [place] [phone] Wesley Pagan MD [address] [facility] [address] [place] [phone] Social History Tobacco Use Types Packs/Day Years [...] on filedocumented in this encounter Care Teams Shank Burnisher Relationship Specialty Start Date End Date Azucena Bradley MD [address] [place] [address], Floor 3 [place] [address] PCP - General Internal Medicine 01/22/24 documented as of this encounter
--- OUTSIDE RECORDS SUMMARY | 2024-07-17 12:20 | XMS_ITS | Encounter Summary ---
Author Organization [facility] Address [address] [place] [address] Phone Care Team Providers Care Student Services Coordinator Name Role Phone Azucena Bradley MD Primary Care Provider [phone] Reason for Visit * Reason Comments Med Refill Encounter Details Date Type Department Care Team (Late st Contact Info) Description 06/22/2022 Refill [facility] [address] [place] [address] [place] [address] Forrest Adamson MD Social History Tobacco [...] filedocumented in this encounter Care Teams Student Services Coordinator Relationship Specialty Start Date End Date Azucena Bradley MD [address] [place] [address], [facility] 3 [place] [address] PCP - General Internal Medicine 01/22/24 documented as of this encounter
--- OUTSIDE RECORDS SUMMARY | 2024-07-17 12:20 | XMS_ITS ---
Demographics Address [address] [place] [address] Mobile Phone Home Phone Preferred Language Japanese Marital Status Tenriism Affiliation Unknown Race White Ethnic Group Unknown Author Organization [facility] Address [address] [place] [address] Care Team Providers Care Preanalytics Team Lead Name Role Phone Ally Ferreira Primary Care Provider [phone] Transplant Episode Kidney Candidate [facility] ([place], [place]) [facility] waitlisted on 12/29/2019 Marked as Active on 03/21/2023 Kidney CoordinatorTadwain Velázquez RN Email: N/A Scores Score Value Updated Exceptions/Reas ons CPRA 3 06/23/2024 EPTS (Calc) 35 07/17/2024 [place] Organ Diagnosis Organ Primary Contributory Kidney Diabetes Mellitus - Type I Infection History Noted Survival Infection Treatment Organism Resolved 12/17/2019 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/02/2023 Care Team Name Role Phone Fax Email Sabina Velázquez RN Kidney Coordinator [phone] N/A Vinicio Harris MD Knockdown Man [phone] [email or web address] [email or web address] Reporting Consultant [phone] [email or web address] Forrest Adamson Referring Physician [phone] N/A Events Pre-Transplant Referred: 06/26/2019 Evaluation began: 12/01/2019 Committee: 12/03/2019 UNOS qualified: 07/15/2018 Center waitlisted: 12/29/2019 Dialysis History Dialysis History Start End Type Comments Center 07/15/2018 In-center Hemodialysis M/W/F SRINI Kaur [facility] Information Center Phone Fax Address [facility] [phone] [place] [address] [address] SHANIQUE CONSTANTINO [address]
--- OUTSIDE RECORDS SUMMARY | 2024-07-17 12:20 | XMS_ITS | Encounter Summary ---
Demographics Address [address] [place] [address] Mobile Phone Home Phone Preferred Language Slovak Marital Status Caodaism Affiliation Unknown Race White Ethnic Group Unknown Author Organization [facility] Address [address] [place] [address] Care Team Providers Care Residential Treatment Counselor Name Role Phone Ally Ferreira Primary Care Provider [phone] Encounter Details Date Type Department Care Team (Late st Contact Info) Description 12/02/2019 Orders Only [facility] Nuclear Medicine [address] [place] [address] Shiva Duran MD [address] [place] [address] Social History Tobacco Use Types Packs/Day Years [...] Info) Description 02/05/2025 11:00 AM EDT Follow-Up [facility] Renal Transplant [address] [place] [address] Vinicio Harris MD [address] [place] [address] 02/05/2025 11:45 AM EDT Follow-Up [facility] Renal Transplant [address] [place] [address] 02/05/2025 12:30 PM EDT Social Work [facility] Renal Transplant [address] [place] [address] Michelet Swartz documented as of this encounter Visit Diagnoses Not on filedocumented in this encounter Care Teams Residential Treatment Counselor Relationship Specialty Start Date End Date Ally Ferreira [address] [place] [address] PCP - General 02/04/24 documented as of this encounter
--- OUTSIDE RECORDS SUMMARY | 2024-07-17 12:20 | XMS_ITS | Encounter Summary ---
Author Organization [facility] Address [address] [facility] [address] [place] [address] Phone Care Team Providers Care Jig Worker Name Role Phone Azucena Bradley MD Primary Care Provider [phone] Reason for Visit * Reason Comments Med Refill Encounter Details Date Type Department Care Team (Late st Contact Info) Description 09/02/2023 Refill [facility] [address] [place] [phone] Paul Brothers MD [address] [facility] [address] [place] [phone] Social History Tobacco Use Types Packs/Day Years [...] on filedocumented in this encounter Care Teams Jig Worker Relationship Specialty Start Date End Date Azucena Bradley MD [address] [place] [address], Floor 3 [place] [address] PCP - General Internal Medicine 01/22/24 documented as of this encounter
--- OUTSIDE RECORDS SUMMARY | 2024-07-17 12:20 | XMS_ITS | Encounter Summary ---
Author Organization [employer] Address [address] [place] [address] [facility] [place] [address] Care Team Providers Care Videogame Designer Name Role Phone Ally Ferreira MD Primary Care Pro vider Reason for Visit * Reason Comments Med Change Request Encounter Details Date Type Department Care Team (Late Contact Info) Description 01/13/2023 Refill [facility] MEDICINE [address] [place] [address] [phone] Ally Ferreira MD [address] [place] [address] [phone] Social History Tobacco Use Types Packs/Day Years [...] Description 09/02/2024 10:15 AM EDT Office Visit [facility] MEDICINE [address] [place] [address] [phone] Ally Ferreira MD [address] [place], [place] [phone] documented as of this encounter Visit Diagnoses Not on filedocumented in this encounter Additional Health Concerns Assessment Noted Time PHQ-9 Depression Total Score: 0 08/11/19 9:11 AM EDT documented as of this encounter Care Teams Videogame Designer Relationship Specialty Start Date End Date Ally Ferreira MD [address] [place] [address] PCP - General Internal Medicine 07/25/22 documented as of this encounter
--- OUTSIDE RECORDS SUMMARY | 2024-07-17 12:20 | XMS_ITS | Encounter Summary ---
Author Organization [employer] Address [address] [facility] [address] 7[address] [place] [address] Care Team Providers Care Supervisor Whipped Topping Name Role Phone Ally Ferreira MD Primary Care Pro vider Encounter Details Date Type Department Care Team (Late st Contact Info) Description 07/17/2024 Orders Only GENERIC EXTERNAL DATA DEPARTMENT Provider, [...] EDT Office Visit [facility] MEDICINE [address] [place], [place] [phone] Ally Ferreira MD [address] [place] [address] documented as of this encounter Procedures Procedure Name Priority Date/Time Associated Diagnosis Comments CBC WITH AUTO DIFFERENTIAL Routine 07/17/2024 11:19 AM EDT documented in this encounter Results * (ABNORMAL) CBC auto differential (07/17/2024 11:19 AM EDT) White Blood Count 14.8(H) 4.8 - 10.8 X10*3/uL [facility] Red Blood Count 3.20(L) 4.20 - 5.50 X10*6/uL [facility] Hemoglobin 9.7(L) 12.0 - 16.0 g/dl [facility] Hematocrit 29.7(L) 37.0 - 47.0 % [facility] Mean Corpuscular Volume 92.8 80.0 - 98.0 fL [facility] Mean Corpuscular Hemoglobin 30.3 27.0 - 33.0 pg [facility] Mean Corpuscular HGB Conc 32.7 31.0 - 35.0 g/dl [facility] Red Cell Distribution Width 15.9 11.0 - 16.0 % [facility] Platelet Count 296 160 - 400 X10*3/uL [facility] Mean Platelet Volume 11.0 9.4 - 12.3 fL [facility] Neutrophils Percent Auto 71.3 45 - 73 % [facility] Imm Gran Pct Auto 0.6(H) 0.0 - 0.4 % [facility] Lymphocytes Percent Auto 13.6(L) 20 - 40 % [facility] Monocytes Percent Auto 7.2 2 - 11 % [facility] Eosinophils Percent Auto 6.4(H) 0 - 4 % [facility] Basophils Percent Auto 0.9 0 - 2 % [facility] NRBC Pct Auto 0.0 0.0 - 0.2 /100WBC [facility] Neutrophils Absolute Auto 10.5(H) 2.0 - 8.3 x10*3/uL [facility] Imm Gran Abs Auto 0.09(H) 0.00 - 0.03 X10*3/uL [facility] Lymphocytes Absolute Auto 2.0 1.2 - 4.9 X10*3/uL [facility] Monocytes Absolute Auto 1.1 0.1 - 1.2 X10*3/uL [facility] Eosinophils Absolute Auto 0.9(H) 0.0 - 0.4 X10*3/uL [facility] Basophils Absolute Auto 0.1 0.0 - 0.2 X10*3/uL [facility] NRBC Abs Auto 0.000 0.0 - 0.012 X10*3/uL [facility] 07/17/2024 11:1 9 AM EDT 07/17/2024 11:19 AM EDT us Generic External Data Provider LAB BLOOD ORDERAB LES Final Result [facility] [address] [place] [address] [phone] documented in this encounter Visit Diagnoses Not on filedocumented in this encounter Additional Health Concerns Assessment Noted Time PHQ-9 Depression Total Score: 0 07/31/19 24 11:09 AM EDT documented as of this encounter Care Teams Supervisor Whipped Topping Relationship Specialty Start Date End Date Ally Ferreira MD [address] [place] [address] PCP - General Internal Medicine 07/25/22 documented as of this encounter
--- OUTSIDE RECORDS SUMMARY | 2024-07-17 12:20 | XMS_ITS | Encounter Summary ---
Author Organization [facility] Address [address] [place] [address] Phone Care Team Providers Care Wire Photo Operator Name Role Phone Azucena Bradley MD Primary Care Provider [phone] Reason for Visit * Reason Comments Med Refill Encounter Details Date Type Department Care Team (Late st Contact Info) Description 03/06/2021 Refill [facility] [address] [place] [address] [place] [address] Forrest Adamson MD Social History Tobacco [...] on filedocumented in this encounter Care Teams Wire Photo Operator Relationship Specialty Start Date End Date Azucena Bradley MD [address] [place] [address], [facility] 3 [place] [address] PCP - General Internal Medicine 01/22/24 documented as of this encounter
--- OUTSIDE RECORDS SUMMARY | 2024-07-17 12:20 | XMS_ITS | Encounter Summary ---
Demographics Address [address] [place] [address] Mobile Phone Home Phone Preferred Language Luxembourgish Marital Status Church Affiliation Unknown Race White Ethnic Group Unknown Author Organization [facility] Address [address] [place] [address] Care Team Providers Care Associate Juvenile Court Judge Name Role Phone Ally Ferreira Primary Care Provider [phone] Encounter Details Date Type Department Care Team (Late st Contact Info) Description 02/22/2024 Orders Only [facility] Nuclear Medicine [address] [place] [address] [phone] Victor Manuel Corado MD PhD [address] [place], [place] [phone] Social History Tobacco Use Types Packs/Day Years [...] Info) Description 02/05/2025 11:00 AM EDT Follow-Up [facility] Renal Transplant [address] [place], [place] [phone] Vinicio Harris MD [address] [place], [place] [phone] 02/05/2025 11:45 AM EDT Follow-Up [facility] Renal Transplant [address] [place] [address] 02/05/2025 12:30 PM EDT Social Work [facility] Renal Transplant [address] [place] [address] Michelet Swartz documented as of this encounter Visit Diagnoses Not on filedocumented in this encounter Care Teams Associate Juvenile Court Judge Relationship Specialty Start Date End Date Ally Ferreira [address] [place] [address] PCP - General 02/04/24 documented as of this encounter
--- OUTSIDE RECORDS SUMMARY | 2024-07-17 12:20 | XMS_ITS | Clinical Summary ---
Author Organization [facility] Address [address] [place] [address] Phone Care Team Providers Care Php Programmer Name Role Phone Mt Hooker MD Primary Care Provider [phone] Allergies No known active allergies Medications CALCITRIOL [...] 1:30 PM EDT Office Visit Orthopedic [facility] [address] [address] Siva Lino DPM Poorly controlled type 2 diabetes mellitus with neuropathy (CMS/HCC) (Primary Dx); Neuropathy; Callus; Localized edema; Hammertoes of both feet; Ulcer of right heel, with fat layer exposed (CMS/HCC) 06/17/2024 10:15 AM EST Office Visit Orthopedic Surgery [place] [address] [address] Siva Lino DPTristin Controlled type 2 diabetes with neuropathy (CMS/HCC) (Primary Dx); Hammertoes of both feet; Dermatophytosis, nail; Ulcer of right heel, with fat layer exposed (CMS/HCC) 06/10/2024 10:00 AM EST Office Visit Orthopedic [facility] [address] [address] Siva Lino DPTristin Controlled type 2 diabetes with neuropathy (CMS/HCC) (Primary Dx); Ulcer of right heel, with fat layer exposed (CMS/HCC); Non-pressure chronic ulcer of right ankle with fat layer exposed (CMS/HCC) 06/03/2024 10:15 AM EST Office Visit Orthopedic Surgery [facility] [address] [address] Siva Lino, DPM Hammertoes of both feet (Primary Dx); Controlled type 2 diabetes with neuropathy (CMS/HCC); Ulcer of right heel, with fat layer exposed (CMS/HCC) 05/06/2024 1:00 PM EST Office Visit Orthopedic Surgery [facility] [address] [address] Siva Lino DPTristin Controlled type 2 diabetes with neuropathy (CMS/HCC) (Primary Dx); Hammertoes of both feet; Xerosis cutis; Ulcer of right heel, limited to breakdown of skin ([facility]); Dermatophytosis, nail from Last 3 Months Immunizations Name Administration Dates Next Due COVID-19 (Moderna/Spikevax) 12yo and older 01/26 Moderna SARS-CoV-2 COVID-19, mRNA, LNP-S, preservative free 07/09/2020,05/26/2020 Medical History Medical History Date Comments Kidney failure DX:Kidney failur e Diabetes mellitus ([facility]) DX:D iabetes mellitus ([facility]) Diabetic neuropathy ([facility]) DX :Diabetic neuropathy ([facility]) Type 1 diabetes ([facility]) DX:Typ e 1 diabetes ([facility]) Hypertension DX:Hypertension Social History Tobacco Use [...] AM EDT Office Visit [facility] [place] [address] [address] Siva Lino DPM 175 [facility] 250 [place] [address] Health Maintenance Due Date Last Done Comments [...] Test (04/06/2022) Annual BMP Blood Test abstracted [facility] Provider HEALTH MAINTENANCE Final Result * Hepatitis C Screening (11/30/2020) Hepatitis C Screening abstracted Historical Provider MD HEALTH MAINTENANCE Final Result from Last 3 Months or Most Recently Relevant to Health Maintenance Insurance MEDICAID - [place] MEDICARE Care Teams Php Programmer Relationship Specialty Start Date End Date Mt Hooker MD [address] [place] [address] [place] [phone] PCP - General Internal Medicine 09/26/21
--- OUTSIDE RECORDS SUMMARY | 2024-07-17 12:20 | XMS_ITS | Encounter Summary ---
Author Organization [employer] Address [address] [facility] 7 [place] [address] Care Team Providers Care Animal Care Specialist Name Role Phone Ally Ferreira MD Primary Care Pro vider Reason for Visit * Reason Comments Med Refill Encounter Details Date Type Department Care Team (Late st Contact Info) Description 07/14/2024 Refill [facility] [address] [place], [place] [phone] Ally Ferreira MD [address] [place] [address] Hypertension, unspecified type Social History Tobacco Use [...] Description 09/02/2024 10:15 AM EDT Office Visit [facility] [address] [place] [phone] Ally Ferreira MD [address] [place] [phone] documented as of this encounter Visit Diagnoses Diagnosis Hypertension, unspecified type documented in this encounter Additional Health Concerns Assessment Noted Time PHQ-9 Depression Total Score: 0 07/31/19 24 11:09 AM EDT documented as of this encounter Care Teams Animal Care Specialist Relationship Specialty Start Date End Date lAly Ferreira MD [address] [place] [phone] PCP - General Internal Medicine 07/25/22 documented as of this encounter
--- OUTSIDE RECORDS SUMMARY | 2024-07-17 12:21 | XMS_ITS | Encounter Summary ---
Author Organization [facility] Address [address] [place] [address] Phone Care Team Providers Care Spool Sorter Name Role Phone Azucena Bradley MD Primary Care Provider [phone] Reason for Visit * Reason Comments Med Refill Encounter Details Date Type Department Care Team (Late st Contact Info) Description 12/24/2021 Refill [facility] [address] [place] [address] Forrest Adamson MD Social History [...] on filedocumented in this encounter Care Teams Spool Sorter Relationship Specialty Start Date End Date Azucena Bradley MD [address] [place] [address], [facility] [address] [place] [address] PCP - General Internal Medicine 01/22/24 documented as of this encounter
--- OUTSIDE RECORDS SUMMARY | 2024-07-17 12:21 | XMS_ITS | Clinical Summary ---
Author Organization [employer] Address [address] [facility] [address] 7t [place] [address] Care Team Providers Care Concrete Pouring Supervisor Name Role Phone Ally Ferreira MD Primary [...] tablet 1 023 Active [facility] Saline Nasal Seibert 0.65 % nasal spray ADMINISTER 1 SPRAY [...] tablet 1 02/29/2 024 Active Continuous Glucose License Clerk (Dexcom G6 car porter) device Use as directed. 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 -states getting tx w career development coordinator/teacher- removed from iron pills Peripheral vascular disorder [...] reports to be following with vascular at [facility] --- ---- requested record to [...] and exercise,discussed healthy life style -to see linen room custodian referred by her endoc Abnormal EKG 08/10/2022 Assessment & Plan (01/11/2023 7:44 PM EDT): -EKG 07/2022 showed now acute ischemic findings there is QTC prolonged to 491 but noted in the past as well -states was seen by cards before unsure reason but w no major findings -found inconclusive stress test done in 2020 -Per pt has been seen by cards at [facility] -sounds possible was evaluated by cards [...] x1 , HPV x3, hep B x3-immune, x2 and later p13 in 2019 -will [...] visit , HPV x3, hep B x3, x2 and later p13 in 2019 ,MMRx2,varicellax2 [...] self PLAN: 1. Follow up with [facility]: Not recommended for follow-up 2. 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 --px by her career development coordinator/teacher --advised pt to follow w her specialist to confirm dose of med Assessment & Plan (08/10/2022 12:41 PM EDT): BP at home per pt <140/90 Stopped hydralazine by her career development coordinator/teacher for hypotensive episodes after HD Currently denies [...] losartan ? -all meds refilled by her career development coordinator/teacher ,states dont need any meds refilled -f BP at her next apt -advised to check at home and bring readings Hyperlipidemia 09/06/2012 Proteinuria 01/09/2012 03/07/2023 DM (diabetes mellitus), type 1 with renal compli cations 04/16/1958 Assessment & Plan (01/11/2023 8:05 PM EDT): dxed w DM1 at age 11 y of age c/w nephropathy -ESRD on HD complicated w hypoglycemic events f w laboratory clerk -Dr Morro Amor on novolog SS ( 6 to 8 u TID)and lantus 18 u HS Hb1AC capillary today is 12.3<---12, LDL 86,CBG elevated today at 235 -registry np referred today -opthalmo has apt for 05/2023 -sent glucose tab-before and would discuss about gluconate at next visit x emergency -continue care w her laboratory clerk -will hold on doing Changes per pt [...] HD complicated w hypoglycemic events f w laboratory clerk -Dr Morro Amor on novolog SS ( 6 to 8 u TID)and lantus 10 u HS --got today records of her last visit w endo in 07/2022 Hb1AC capillary 12 today --from last endo note had hb1AC in 07/2022 10.9? -registry np referred already by her laboratory clerk -pd to abigail apt -opthalmo referral today Pt has continuous capillary glucose check marking bw 55 to 400s ----pt takes her readings to her endo office to do changes in meds -to take tomorrow to endo's office -Pd to see a certified diabetes educator and linen room custodian referred by her laboratory clerk ----pt recently got the CGM by her [...] Encounters Date Type Department Care Team Description 07/17/2024 Orders Only GENERIC EXTERNAL DATA DEPARTMENT Provider, Generic External Data 07/14/2024 Refill [facility] [place] [address] Ally Ferreira MD Hypertension, unspecified type 06/27/2024 Population Health Risk Score [facility] Department [address] [phone] Provider, Population Health Generic 06/26/2024 Orders Only GENERIC EXTERNAL DATA DEPARTMENT Provider, Generic External Data 06/23/2024 Telephone [facility] [address] [place] [address] Ally Ferreira MD May recalls 06/03/2024 Refill [facility] [place] [address] Ally Ferreira MD 05/30/2024 11:00 AM EST Telemedicine [facility] [address] Randi Marcelino, PharmD Type 1 diabetes mellitus with chronic kidney disease on chronic dialysis ([facility]) (Primary Dx); Hypertension, unspecified type; Hyperlipidemia, unspecified hyperlipidemia type 05/13/2024 10:30 AM EST Office [place] [facility] [address] Rosy Dawson ANP Hospital discharge follow-up (Primary Dx); Hyperkalemia; Type 1 diabetes mellitus with chronic kidney disease on chronic dialysis ([facility]); Arm DVT (deep venous thromboembolism), acute, right ([facility]); ESRD on hemodialysis ([facility]); Elevated brain natriuretic peptide (BNP) level 05/13/2024 Travel 05/12/2024 Telephone [facility] [address] [place], [place] [phone] Ally Ferreira MD 04/25/2024 Telephone [facility] [address] [place] [address] Onur Rice PharmD Hospital Follow-up 04/24/2024 Orders Only GENERIC EXTERNAL DATA DEPARTMENT Provider, Generic External Data 04/19/2024 Refill [facility] [address] [place] [address] Ally Ferreira MD History of SIVAKUMAR positive [...] 09/02/2024 10:15 AM EDT Office Visit [facility] [address] [place] [address] [phone] Ally Ferreira MD [address] [place], [place] [phone] Health Maintenance Due Date Last Done Comments [...] AUTO DIFFERENTIAL Routine 07/17/2024 11:19 AM EDT GLUCOSE, WHOLE BLOOD Routine 06/26/2024 10:22 AM [...] Relevant to Health Maintenance Results * (ABNORMAL) CBC auto differential (07/17/2024 11:19 AM EDT) White Blood Count 14.8(H) 4.8 - 10.8 X10*3/uL [facility] Red Blood Count 3.20(L) 4.20 - 5.50 X10*6/uL [facility] Hemoglobin 9.7(L) 12.0 - 16.0 g/dl [facility] Hematocrit 29.7(L) 37.0 - 47.0 % [facility] Mean Corpuscular Volume 92.8 80.0 - 98.0 fL [facility] Mean Corpuscular Hemoglobin 30.3 27.0 - 33.0 pg [facility] Mean Corpuscular HGB Conc 32.7 31.0 - 35.0 g/dl [facility] Red Cell Distribution Width 15.9 11.0 - 16.0 % [facility] Platelet Count 296 160 - 400 X10*3/uL [facility] Mean Platelet Volume 11.0 9.4 - 12.3 fL [facility] Neutrophils Percent Auto 71.3 45 - 73 % [facility] Imm Gran Pct Auto 0.6(H) 0.0 - 0.4 % [facility] Lymphocytes Percent Auto 13.6(L) 20 - 40 % [facility] Monocytes Percent Auto 7.2 2 - 11 % [facility] Eosinophils Percent Auto 6.4(H) 0 - 4 % [facility] Basophils Percent Auto 0.9 0 - 2 % [facility] NRBC Pct Auto 0.0 0.0 - 0.2 /100WBC [facility] Neutrophils Absolute Auto 10.5(H) 2.0 - 8.3 x10*3/uL [facility] Imm Gran Abs Auto 0.09(H) 0.00 - 0.03 X10*3/uL [facility] Lymphocytes Absolute Auto 2.0 1.2 - 4.9 X10*3/uL [facility] Monocytes Absolute Auto 1.1 0.1 - 1.2 X10*3/uL [facility] Eosinophils Absolute Auto 0.9(H) 0.0 - 0.4 X10*3/uL [facility] Basophils Absolute Auto 0.1 0.0 - 0.2 X10*3/uL [facility] NRBC Abs Auto 0.000 0.0 - 0.012 X10*3/uL [facility] 07/17/2024 11:1 9 AM EDT 07/17/2024 11:19 AM EDT us Generic External Data Provider LAB BLOOD ORDERAB LES Final Result [facility] [address] [place] [phone] [phone] * (ABNORMAL) Glucose, Whole Blood (06/26/2024 10:22 AM EDT) Only the most recent of2 resultswithin the time period is included. Glucose, Whole Blood 188(H) 60 - 115 mg/dL [facility] Comment:METER #: [id number] Testing performed in the Endocrinology Department [address] , [address], [facility]. 06/26/2024 10:2 2 AM EDT 06/26/2024 10:24 AM EDT us Generic External Data Provider LAB BLOOD ORDERAB LES Final Result Performing Organization Address [facility]/ZIP Co de Phone Number [facility] [address] [place] [address] [phone] * Hepatitis C Antibody with Reflex to HCV, RNA, Quantitative, Real-Time PCR (09/06/2023 10:47 AM EDT) Pathologist [facility] Hepatitis C Antibody Nonreactive Nonreactive [facility] Comment:Antibodies to HCV no t detected; does not exclude early acuteHCV infection. Blood Venous blood specimen / Unknown 09/06/2023 10:47 AM EDT 09/06/2023 10:47 AM EDT us Ally Ferguson MD LAB BLOOD ORDERAB LES Final Result Performing Organization Address [facility]/ZIP Co de Phone Number [facility] [address] [place] [address] [phone] * HIV-1/2 Antigen and Antibodies, Fourth Generation, with Reflexes (09/06/2023 10:47 AM EDT) HIV AB/AG Nonreactive Nonreactive [facility] Comment:HIV-1 p24 Ag and/or HIV-1/HIV-2 Ab not detected.A test result that is nonreactive does not exclude thepossibility of exposure to or infection with HIV-1 and/orHIV-2. Nonreactive results in this assay for individualswith prior exposure to HIV-1 and/or HIV-2 may be due toantigen and antibody levels that are below the limit ofdetection of this assay.[employer] HIV Ag/Ab Combo assay result andsupplemental assay results should be interpreted inconjunction with the patient's clinical presentation,history and other laboratory results. If the results areinconsistent with clinical evidence, additional testing issuggested to confirm the result. Blood Venous blood specimen / Unknown 09/06/2023 10:47 AM EDT 09/06/2023 10:47 AM EDT us Ally Ferguson MD LAB BLOOD ORDERAB LES Final Result Performing Organization Address [facility] Co de Phone Number [facility] [address] [place] [address] [phone] * (ABNORMAL) Hemoglobin A1c (09/06/2023 10:47 AM EDT) Hemoglobin A1c 9.4(H) <6.0 % [facility] Comment:Hemoglobin A1C Refer ence Range Adults: 4.8 - 6.0 % Non diabetic: < 6.0 % Goal: < 7.0 %Additional Action Suggested: > 8.0 %Note: Hemoglobin A1c results are invalid for patients with abnormal amounts of HbF. Blood transfusions may impact the HbA1c concentration in the patient sample. Estimated Average Glucose 223 mg/dL [facility] Comment:eAG = Estimated ave rage glucose which is %A1C expressed asaverage glucose, using the formula of the L4N-AqoyeasHwxsheg Glucose study (ADAG), Diabetes Care, Vol.31,#8,Nov. 2007 Blood Venous blood specimen / Unknown 09/06/2023 10:47 AM EDT 09/06/2023 10:47 AM EDT us Ally Ferguson MD LAB BLOOD ORDERAB LES Final Result Performing Organization Address [facility] Co de Phone Number [facility] [address] [place] [phone] * (ABNORMAL) Lipid Panel, Standard (09/06/2023 10:47 AM EDT) Triglycerides 256(H) <150 mg/dL [facility] Comment:Desirable Triglyceri de: less than 150 mg/dLBorderline High Triglyceride 150-199 mg/dLHigh Triglyceride: 200-499 mg/dLVery High Triglyceride: greater than or equal to 5OO mg/dL Cholesterol 203(H) <200 mg/dL [facility] Comment:Desirable Cholestero l: less than 200 mg/dLBorderline High Cholesterol: 200-239 mg/dLHigh Cholesterol: greater than 239 mg/dL LDL Cholesterol Calculated 123(H) <100 mg/dL [facility] Comment:Desirable LDL: less than 100 mg/dLNear Optimal/Above Optimal LDL: 110- 129 mg/dLBorderline High LDL: 130-159 mg/dLHigh LDL: 160-189 mg/dLVery High LDL: greater than or equal to 190 mg/dL HDL Cholesterol 29(L) >40 mg/dL [facility] Comment:Desirable HDL: great er than 40 mg/dL Note: This HDL assay may give artificially low results in patients with liver disease. Blood Venous blood specimen / Unknown 09/06/2023 10:47 AM EDT 09/06/2023 10:47 AM EDT Ally Ferguson MD LAB BLOOD ORDERAB LES Final Result [facility] [address] [place] [address] [phone] * Pap Smear (05/17/2023 12:00 AM EST) Swab us Historical Provider LAB CYTOLOGY ORDERABLES F inal Result [facility] [address] [place] [phone] * HPV mRNA E6/E7 (02/03/2021 9:37 AM EDT) HPV nRNA E6/E7 Not Detected Not Detected [facility] Comment: Methodology: [employer]-Mediated Amplification This assay detects E6/E7 viral messenger RNA (mRNA) from 14 high-risk HPV types (16,18,31,33,35,39,45,51,52,56,58,59,66,68). ? The analytical performance characteristics of this assay have been determined by [employer]. The modifications have not been cleared or approved by the FDA. This assay has been validated pursuant to the CLIA regulations and is used for clinical purposes. ?? For additional information, please refer to http://[employer].Support Your App/faq/XUZ874a2 (This link if provided for information/ educational purposes only.) HPV nRNA E6/E7 Not Detected Not Detected [facility] Comment: Methodology: [employer]-Mediated Amplification This assay detects E6/E7 viral messenger RNA (mRNA) from 14 high-risk HPV types (16,18,31,33,35,39,45,51,52,56,58,59,66,68). ? The analytical performance characteristics of this assay have been determined by [employer]. The modifications have not been cleared or approved by the FDA. This assay has been validated pursuant to the CLIA regulations and is used for clinical purposes. ?? For additional information, please refer to http://[employer].Support Your App/faq/RUI009x4 (This link if provided for information/ educational purposes only.) 02/03/2021 9:37 AM EDT us Jen Lozoya [facility] LAB BLOOD ORDERABLES Araceli maher Result [facility] [address] from Last 3 Months or Most Recently Relevant to Health Maintenance Insurance MEDICARE Care Teams Concrete Pouring Supervisor Relationship Specialty Start Date End Date Ally Ferreira MD [address] [place] [phone] PCP - General Internal Medicine 07/25/22
--- OUTSIDE RECORDS SUMMARY | 2024-07-17 12:21 | XMS_ITS | Encounter Summary ---
Author Organization [employer] Address [address] [place] [address] Care Team Providers Care Apprentice Instrument Technician Name Role Phone Ally Ferreira MD Primary Care Pro vider Reason for Visit * Reason Comments Med Refill Encounter Details Date Type Department Care Team ([facility] Contact Info) Description 09/02/2022 Refill [facility] [address] [place] [address] Blair Lopez AGNP Hypertension, unspecified [...] Upcoming Encounters Date Type Department Care Team ([facility] Contact Info) Description 09/02/2024 10:15 AM EDT Office Visit [facility] [address] [place] [address] Ally Ferreira MD [address] [place] [address] documented as of this encounter Visit Diagnoses Diagnosis Hypertension, unspecified type documented in this encounter Additional Health Concerns Assessment Noted Time PHQ-9 Depression Total Score: 0 08/11/19 9:11 AM EDT documented as of this encounter Care Teams Apprentice Instrument Technician Relationship Specialty Start Date End Date Ally Ferreira MD [address] [place] [address] PCP - General Internal Medicine 07/25/22 documented as of this encounter
--- OUTSIDE RECORDS SUMMARY | 2024-07-17 12:21 | XMS_ITS | Encounter Summary ---
Author Organization [facility] Address [address] [place] [address] Phone Care Team Providers Care Chief Investment Officer Name Role Phone Azucena Bradley MD Primary Care Provider [phone] Reason for Visit * Reason Comments Med Refill Encounter Details Date Type Department Care Team (Late st Contact Info) Description 06/14/2021 Refill [facility] [address] [place] [address] Forrest Adamson MD Social History Tobacco [...] on filedocumented in this encounter Care Teams Chief Investment Officer Relationship Specialty Start Date End Date Azucena Bradley MD [address] [place] [address], [facility] [address] [place] [address] PCP - General Internal Medicine 01/22/24 documented as of this encounter
--- OUTSIDE RECORDS SUMMARY | 2024-07-17 12:21 | XMS_ITS | Encounter Summary ---
Author Organization [employer] Address [address] [place] [address] Care Team Providers Care Sawdust Machine Operator Name Role Phone Viri Wall Primary Care Provider [phone] Ally Ferreira MD Primary Care Pro vider Reason for Visit * Reason Comments Med Refill Encounter Details Date Type Department Care Team (Late st Contact Info) Description 06/06/2022 Refill [facility] [address] [place] [address] Adelaide Cano DO [address] [place] [address] Social History Tobacco Use Types Packs/Day Years [...] AM EST T/C placed to pt via [facility] Carlos #[id number]. 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 Advised will update provider. documented in this encounter Plan of Treatment Upcoming Encounters Date Type Department Care Team (Late st Contact Info) Description 09/02/2024 10:15 AM EDT Office Visit [facility] [address] [place] [phone] Ally Ferreira MD [address] [place] [address] [phone] documented as of this encounter Visit Diagnoses Not on filedocumented in this encounter Care Teams Sawdust Machine Operator Relationship Specialty Start Date End Date Viri Wall FNP [address] [place] [address] [phone] PCP - General Family Medicine 06/06/22 07/24/22 Ally Ferreira MD [address] [place] [address] [phone] PCP - General Internal Medicine 07/25/22 documented as of this encounter
--- OUTSIDE RECORDS SUMMARY | 2024-07-17 12:21 | XMS_ITS | Clinical Summary ---
Author Organization [facility] Address [address] [place] [phone] Phone Care Team Providers Care Wharf Hand Name Role Phone Azucena Bradley MD Primary Care Provider [phone] Medications losartan (COZAAR) 50 MG tablet TAKE [...] 07/16/2024 Treatment [facility] [address] [place] [phone] Atul Burton MD End stage renal disease; Dependence on renal dialysis 07/07/2024 Treatment [facility] [address] [phone] Atul Burton MD End stage renal disease; Dependence on renal dialysis 07/02/2024 Treatment [facility] [address] [phone] Atul Burton MD End stage renal disease; Dependence on renal dialysis 06/30/2024 Treatment [facility] [address] [phone] Atul Burton MD End stage renal disease; Dependence on renal dialysis 06/18/2024 Treatment [facility] [address] [address] Atul Burton MD End stage renal disease; Dependence on renal dialysis 06/13/2024 Treatment [facility] [address] [address] Atul Burton MD End stage renal disease; Dependence on renal dialysis 05/28/2024 Treatment [facility] [address] [phone] Atul Burton MD 05/26/2024 Treatment [facility] [address] [phone] Atul Burton MD 05/21/2024 Orders Only [facility] [address] [phone] Atul Burtno MD 05/19/2024 Treatment [facility] [address] [phone] Atul Burton MD 05/16/2024 Treatment [facility] [address] [phone] Atul Burton MD 05/14/2024 Treatment [facility] [address] [address] Atul Burton MD 05/07/2024 Treatment [facility] [address] [phone] Atul Burton MD 04/18/2024 Treatment [facility] [address] [phone] Atul Burton MD from Last 3 Months [...] ORDERABLES Final Re sult Performing Organization Address [facility] Co de Phone Number [facility] [address] [place] [address] * LIH (06/30/2024 3:00 AM EDT) Only the most recent of6 resultswithin the time period is included. Lipemia Normal Normal [facility] Icterus Normal Normal [facility] Hemolysis Normal Normal [facility] 06/30/2024 3:00 AM EDT 07/01/2024 12:12 PM EDT Atul Burton MD LAB [id number] SOLICITED RESULTS Final Result Performing Organization Address [facility] de Phone Number [facility] [address] [place] [address] * (ABNORMAL) Phosphorus (06/30/2024 3:00 AM EDT) Only the most recent of3 resultswithin the time period is included. Phosphorus, Serum 10.1(H) 2.5 - 5.0 mg/dL [facility] 06/30/2024 3:00 AM EDT 07/01/2024 12:12 PM EDT Atul Burton MD LAB BLOOD ORDERABLES Final Re sult Performing Organization Address [facility] de Phone Number [facility] [address] [place] [address] * (ABNORMAL) Kt/V Natural Log, URR (06/18/2024 [...] 2:50 PM EST Atul Burton MD LAB [id number] SOLICITED RESULTS Final Result Performing Organization Address [facility] Co de Phone Number [facility] [address] [place] [address] * (ABNORMAL) Calcium Phosphorus Product, Adjusted (06/18/2024 [...] 2:53 PM EST Atul Burton MD LAB [id number] SOLICITED RESULTS Final Result Performing Organization Address [facility] de Phone Number [facility] [address] [place] [address] * (ABNORMAL) TSAT (06/18/2024 3:00 AM EST) [...] ORDERABLES Final Re sult Performing Organization Address City/[facility] Co de Phone Number [facility] [address] [place] [address] * (ABNORMAL) CBC and Differential (06/18/2024 3:00 [...] ORDERABLES Final Re sult Performing Organization Address City/[facility]/ZIP Co de Phone Number [facility] [address] [place] [address] * ALT (06/18/2024 3:00 AM EST) Only the most recent of3 resultswithin the time period is included. ALT (SGPT) 18 10 - 49 U/L [facility] 06/18/2024 3:00 AM EST 06/19/2024 2:53 PM EST Atul Burton MD LAB BLOOD ORDERABLES Final Re sult Performing Organization Address [facility] Co de Phone Number [facility] [address] [place] [address] * AST (06/18/2024 3:00 AM EST) Only the most recent of3 resultswithin the time period is included. AST (SGOT) 15 <34 U/L [facility] 06/18/2024 3:00 AM EST 06/19/2024 2:53 PM EST Atlu Burton MD LAB BLOOD ORDERABLES Final Re sult Performing Organization Address [facility] Co de Phone Number [facility] [address] [address] * Protein, total (06/18/2024 3:00 AM EST) Only the most recent of3 resultswithin the time period is included. Total Protein 7.6 6.4 - 8.9 g/dL [facility] 06/18/2024 3:00 AM EST 06/19/2024 2:53 PM EST Atul Burton MD LAB BLOOD ORDERABLES Final Re sult Performing Organization Address [facility] Co de Phone Number [facility] [address] [address] * Alkaline phosphatase (06/18/2024 3:00 AM EST) Only the most recent of3 resultswithin the time period is included. Alkaline Phosphatase 111 46 - 116 U/L [facility] 06/18/2024 3:00 AM EST 06/19/2024 2:53 PM EST us Atul Burton MD LAB BLOOD ORDERABLES Final Re sult Performing Organization Address [facility] Co de Phone Number [facility] [address] [place] [address] * Magnesium (06/18/2024 3:00 AM EST) Only the most recent of3 resultswithin the time period is included. Magnesium 2.4 1.9 - 2.7 mg/dL [facility] 06/18/2024 3:00 AM EST 06/19/2024 2:53 PM EST us Atul Burton MD LAB BLOOD ORDERABLES Final Re sult Performing Organization Address [facility] de Phone Number [facility] [address] [place] [address] * (ABNORMAL) Lactate dehydrogenase (06/18/2024 3:00 AM EST) Only the most recent of3 resultswithin the time period is included. LDH 283(H) 120 - 246 U/L [facility] 06/18/2024 3:00 AM EST 06/19/2024 2:53 PM EST us Atul Burton MD LAB BLOOD ORDERABLES Final Re sult Performing Organization Address [facility] de Phone Number [facility] [address] [place] [address] * (ABNORMAL) Glucose, random (06/18/2024 3:00 AM EST) Only the most recent of3 resultswithin the time period is included. Glucose 182(H) 74 - 109 mg/dL [facility] 06/18/2024 3:00 AM EST 06/19/2024 2:53 PM EST us Atul Burton MD LAB BLOOD ORDERABLES Final Re sult Performing Organization Address [facility] de Phone Number [facility] [address] [place] [address] * (ABNORMAL) Ferritin (06/18/2024 3:00 AM EST) Only the most recent of3 resultswithin the time period is included. Ferritin 1,023(H) 10 - 291 ng/mL [facility] 06/18/2024 3:00 AM EST 06/19/2024 2:53 PM EST Atul Burton MD LAB BLOOD ORDERABLES Final Re sult Performing Organization Address [facility] de Phone Number [facility] [address] [place] [address] * (ABNORMAL) Creatinine, serum (06/18/2024 3:00 AM EST) Only the most recent of3 resultswithin the time period is included. Creatinine 10.15(H) 0.55 - 1.02 mg/dL [facility] 06/18/2024 3:00 AM EST 06/19/2024 2:53 PM EST Atul Burton MD LAB BLOOD ORDERABLES Final Re sult Performing Organization Address [facility] de Phone Number [facility] [address] [place] [address] * (ABNORMAL) Bilirubin, total (06/18/2024 3:00 AM EST) Only the most recent of3 resultswithin the time period is included. Total Bilirubin <0.2(L) 0.3 - 1.2 mg/dL [facility] 06/18/2024 3:00 AM EST 06/19/2024 2:53 PM EST Atul Burton MD LAB BLOOD ORDERABLES Final Re sult Performing Organization Address [facility] de Phone Number [facility] [address] [place] [address] * (ABNORMAL) Electrolyte panel (06/18/2024 3:00 AM [...] ORDERABLES Final Re sult Performing Organization Address [facility] de Phone Number [facility] [address] [place] [address] * Confirmation Test HCV (04/23/2024 3:00 AM EST) Pathologist [facility] Hep C Ab Confirmation Not needed [facility] 04/23/2024 3:00 AM EST 04/24/2024 1:05 PM EST Atul Burton MD LAB BLOOD ORDERABLES Final Re sult Performing Organization Address [facility] de Phone Number [facility] [address] [place] [address] * HEPATITIS C ABS W/REFLEX RNA DETECTR (04/23/2024 3:00 AM EST) Pathologist [facility] Hep C Virus Ab Non-Reacti ve Non-Reacti ve [facility] 04/23/2024 3:00 AM EST 04/24/2024 1:15 PM EST us Atul Burton MD LAB [id number] SOLICITED RESULTS Final Result Performing Organization Address [facility] de Phone Number [facility] [address] [place] [address] * Hepatitis B Surface Ag w/Reflex Confirmation (04/23/2024 3:00 AM EST) Hep B Surface Antigen Negative Negative [facility] 04/23/2024 3:00 AM EST 04/24/2024 1:15 PM EST Atul Burton MD LAB BLOOD ORDERABLES Final Re sult Performing Organization Address [facility] de Phone Number [facility] [address] [place] [address] * Aluminum level (04/23/2024 3:00 AM EST) Aluminum 7 1 - 20 ug/L [facility] 04/23/2024 3:00 AM EST 04/24/2024 1:14 PM EST Atul Burton MD LAB BLOOD ORDERABLES Final Re sult Performing Organization Address [facility] de Phone Number [facility] [address] [place] [address] * Hepatitis B Surface Antibody (04/23/2024 3:00 AM EST) Hep B Surface Antibody 124 mIU/mL [facility] Comment: Interpretation: <10: No Immunity >=10: Probable Immunity 04/23/2024 3:00 AM EST 04/24/2024 1:15 PM EST Atul Burton MD LAB BLOOD ORDERABLES Final Re sult Performing Organization Address [facility] de Phone Number [facility] [address] [place] [address] * Uric Acid (04/23/2024 3:00 AM EST) Uric Acid 5.1 2.3 - 6.6 mg/dL [facility] 04/23/2024 3:00 AM EST 04/24/2024 1:15 PM EST Atul Burton MD LAB BLOOD ORDERABLES Final Re sult Performing Organization Address [facility] de Phone Number [facility] [address] [place] [address] * PTH, Intact (04/23/2024 3:00 AM EST) PTH, Intact 404 160 - 721 pg/mL [facility] Comment: Suggested (KDIGO) ESRD maintenance range is two to nine times the upper normal limit (80.1 pg/mL) for the laboratory. 04/23/2024 3:00 AM EST 04/24/2024 1:15 PM EST Atul Burton MD LAB BLOOD ORDERABLES Final Re sult Performing Organization Address [facility] de Phone Number [facility] [address] [place] [address] * (ABNORMAL) Hemoglobin A1c (04/23/2024 3:00 AM [...] Re sult Performing Organization Address [facility] de Phone Number [facility] [address] [place] [address] * (ABNORMAL) Lipid panel (04/23/2024 3:00 AM [...] Final Re sult [facility] [address] [place] [address] from Last 3 Months Insurance [place] Member Subscriber Plan / Payer ( fective 2020-) Name:Natali Mtz Relation to Subscriber:Self Name:Natali Mtz Payer ID:Not on file Group ID:Not on file Type:Not on file Address: [place] [id number] MEDICARE Care Teams Wharf Hand Relationship Specialty Start Date End Date Azucena Bradley MD [facility], Floor [address] [place] [address] PCP - General Internal Medicine 01/22/24
--- OUTSIDE RECORDS SUMMARY | 2024-07-17 12:21 | XMS_ITS | Encounter Summary ---
Author Organization [facility] Address [address] [place] [address] Phone Care Team Providers Care Counseling Center Director Name Role Phone Azucena Bradley MD Primary Care Provider [phone] Reason for Visit * Reason Comments Med Refill Encounter Details Date Type Department Care Team (Late st Contact Info) Description 12/25/2021 Refill [facility] [address] [place] [address] Forrest Adamson MD Social History Tobacco [...] on filedocumented in this encounter Care Teams Counseling Center Director Relationship Specialty Start Date End Date Azucena Bradley MD [address] [place] [address], [facility] [address] [place] [address] PCP - General Internal Medicine 01/22/24 documented as of this encounter
--- OUTSIDE RECORDS SUMMARY | 2024-07-17 12:21 | XMS_ITS | Encounter Summary ---
Author Organization [employer] Address [address] 7[address] [place] [address] Care Team Providers Care Commercial Pest Control Technician Name Role Phone Viri Wall Primary Care Provider [phone] Ally Ferreira MD Primary Care Pro vider Reason for Visit * Reason Comments Med Refill Encounter Details Date Type Department Care Team (Late st Contact Info) Description 06/06/2022 Refill [facility] [address] [place], [place] [phone] Name, MD Dain [address] [place] [address] Primary hypertension (Primary Dx) Social History Tobacco [...] 09/02/2024 10:15 AM EDT Office Visit [facility] [address] [place] [address] Ally Ferreira MD [address] [place], [place] [phone] documented as of this encounter Visit Diagnoses Diagnosis Primary hypertension- Primary Unspecified essential hypertension documented in this encounter Care Teams Commercial Pest Control Technician Relationship Specialty Start Date End Date Viri Wall FNP [address] [place] [address] [phone] PCP - General Family Medicine 06/06/22 07/24/22 Ally Ferreira MD [address] [place] [address] [phone] PCP - General Internal Medicine 07/25/22 documented as of this encounter
--- OUTSIDE RECORDS SUMMARY | 2024-07-17 12:21 | XMS_ITS | Encounter Summary ---
Author Organization [employer] Address [address] [facility] 7 [place] [address] Care Team Providers Care Transplant Case Manager Name Role Phone Ally Ferreira MD Primary Care Pro vider Reason for Visit * Reason Onset Date Comments Referral 05/01/2023 Encounter Details Date Type Department Care Team ([facility] st Contact Info) Description 05/01/2023 Telephone [facility] [address] [place], [place] [phone] Ally Ferreira MD [address] [place] [address] Referral Social History Tobacco Use Types Packs/Day [...] 10:15 AM EDT Office Visit [facility] [address] [place] [address] Ally Ferreira MD [address] [place] [address] documented as of this encounter Visit Diagnoses Not on filedocumented in this encounter Additional Health Concerns Assessment Noted Time PHQ-9 Depression Total Score: 0 08/11/19 9:11 AM EDT documented as of this encounter Care Teams Transplant Case Manager Relationship Specialty Start Date End Date Ally Ferreira MD [address] [place] [phone] PCP - General Internal Medicine 07/25/22 documented as of this encounter
--- OUTSIDE RECORDS SUMMARY | 2024-07-17 12:21 | XMS_ITS | Encounter Summary ---
Author Organization [employer] Address [address] [place] [address] 7 [place] [address] Care Team Providers Care Customer Service Trainer Name Role Phone Ally Ferreira MD Primary Care Pro vider Reason for Visit * Reason Comments Med Refill Encounter Details Date Type Department Care Team (Late Contact Info) Description 09/02/2022 Refill [facility] [address] [place], [place] [phone] Ally Ferreira MD [address] [place] [address] Social History Tobacco Use Types Packs/Day Years [...] Description 09/02/2024 10:15 AM EDT Office Visit [facility] [address] [place] [address] Ally Ferreira MD [address] [place] [phone] documented as of this encounter Visit Diagnoses Not on filedocumented in this encounter Additional Health Concerns Assessment Noted Time PHQ-9 Depression Total Score: 0 08/11/19 9:11 AM EDT documented as of this encounter Care Teams Customer Service Trainer Relationship Specialty Start Date End Date Ally Ferreira MD [address] [place] [address] PCP - General Internal Medicine 07/25/22 documented as of this encounter
--- OUTSIDE RECORDS SUMMARY | 2024-07-17 12:21 | XMS_ITS | Encounter Summary ---
Author Organization [employer] Address [address] 7[address] [place] [address] Care Team Providers Care Crusher Dry Ground Mica Name Role Phone Ally Ferreira MD Primary Care Pro vider Reason for Visit * Reason Comments Med Refill Encounter Details Date Type Department Care Team ([facility] st Contact Info) Description 05/01/2023 Refill [facility] [address] [place], [place] [phone] Jen Lozoya, [facility] [address] [place] [address] Social History Tobacco Use Types Packs/Day Years [...] Description 09/02/2024 10:15 AM EDT Office Visit [facility] [address] [place] [address] Ally Ferreira MD [address] [place] [address] documented as of this encounter Visit Diagnoses Not on filedocumented in this encounter Additional Health Concerns Assessment Noted Time PHQ-9 Depression Total Score: 0 08/11/19 9:11 AM EDT documented as of this encounter Care Teams Crusher Dry Ground Mica Relationship Specialty Start Date End Date Ally Ferreira MD [address] [place] [phone] PCP - General Internal Medicine 07/25/22 documented as of this encounter
[2024-07-17 12:29] LABS: Erythrocyte Sedimentation Rate 93 MM/HR (0-20)
[2024-07-18 20:08] LABS: IgA 462 mg/dL (47-310); IgG 1801 mg/dL (600-1640); IgM 106 mg/dL (50-300)
[2024-07-21 12:48] LABS: Fructosamine 510 umol/L (205-285)
[2024-07-21 15:23] LABS: Immunoglobulin G Subclass 1 734 mg/dL (382-929); Immunoglobulin G Subclass 2 724 mg/dL (241-700); Immunoglobulin G Subclass 3 96 mg/dL (22-178); Immunoglobulin G Subclass 4 37.1 mg/dL (4-86); Immunoglobulin G Total 1628 mg/dL (600-1640)
[2024-07-23 02:43] LABS: Class Alternaria alternata 0; Class Aspergillus fumigatus 0; Class Bermuda Grass 0; Class Birch 2; Class Cat Dander 0; Class Cladosporium herbarum 0; Class Cockroach 0; Class Common Ragweed 1; Class Cottonwood 0; Class Derm. pterony 2; Class Dermatophagoides farinae 2; Class Dog Dander 2; Class Elm 0; Class Maple Box Elder 0; Class Mountain Cedar 0; Class Mouse Urine Protein 0; Class Mugwort 1; Class Oak 2; Class Penicillium crysogenum 0; Class Rough Pigweed 0; Class Sheep Sorrel 0; Class Sycamore 0; Class Timothy Grass 0/1; Class Walnut Tree 0; Class White Ash 0; Class White Mulberry 0; D001 IgE D pteronyssinus 1.56 kU/L; D002 - IgE D farinae 1.28 kU/L; E001 - IgE Cat Dander <0.10 kU/L; E005 - IgE Dog Dander 1.19 kU/L; E072-IgE Mouse Urine <0.10 kU/L; G002 IgE Bermuda Grass <0.10 kU/L; G006 - IgE Timothy Grass 0.21 kU/L; I006-IgE Cockroach, German <0.10 kU/L; Immunoglobulin E 86 kU/L (<OR=114); M001 IgE Penicillium chrysogen <0.10 kU/L; M002 - IgE Cladosporium herbar <0.10 kU/L; M003 - IgE Aspergillus fumigat <0.10 kU/L; M006 - IgE Alternaria alternat <0.10 kU/L; T001 IgE Maple/Box Elder <0.10 kU/L; T003 IgE Common Silver Birch 1.57 kU/L; T006 - IgE Cedar, Mountain <0.10 kU/L; T007 - IgE Oak, White 1.46 kU/L; T008 IgE Elm, American <0.10 kU/L; T010 - IgE Walnut <0.10 kU/L; T011 - IgE Maple Leaf Sycamore <0.10 kU/L; T014 - IgE Cottonwood <0.10 kU/L; T015 - IgE Ash, White <0.10 kU/L; T070 - IgE White Mulberry <0.10 kU/L; W001 - IgE Ragweed, Short 0.67 kU/L; W006 - IgE Mugwort 0.41 kU/L; W014 IgE Pigweed, Common <0.10 kU/L; W018 IgE Sheep Sorrel <0.10 kU/L
== END 2024-07-17 10:25 | disposition home or self-care (01) ==
LOC: HO.LAB 10:24
PROVIDERS: Nurse Practitioner Adult Health; PCP Student in an Organized Health Care Education/Training Program; Visit Provider Hospitalist
DX: R91.1 Solitary pulmonary nodule (principal); T78.40XA Allergy, unspecified, initial encounter; J30.9 Allergic rhinitis, unspecified; R91.8 Other nonspecific abnormal finding of lung field; E10.65 Type 1 diabetes mellitus with hyperglycemia; J45.40 Moderate persistent asthma, uncomplicated
CPT/HCPCS: 36415; 82784; 82785; 82985; 85025; 85652; 86003; 99212

== ENCOUNTER 2024-07-24 12:58 | Outpatient (REF) | payer MEDICARE, MEDICAID, SELFPAY ==
--- NOTE | ~2024-07-24 | XR_ITS ---
EXAMINATION: XR FOOT, RIGHT CLINICAL INFORMATION: chronic ulcer right foot, patient is diabetic COMPARISON: None available. TECHNIQUE: AP, lateral, and oblique views of the right foot. FINDINGS: Has been prior resection of the fourth and fifth digits at the level of the proximal metatarsals. There has been partial resection of the third digit at the proximal phalanx level, versus resorptive changes related to old healed osteomyelitis . Normal bone mineralization. No fracture, dislocation, or suspicious bone lesion. No radiographic evidence of osteomyelitis or focal region of osteopenia. The midfoot and hindfoot have a normal imaging appearance. Soft tissue ulceration evident involving the lateral plantar heel. No subcutaneous emphysema. There are diffuse soft tissue vascular calcifications. XR/XR foot RT min 3V IMPRESSION: 1. Postop changes as detailed. 2. Soft tissue ulcer in the lateral plantar heel region. 3. No radiographic evidence of acute osteomyelitis. Electronically signed by: Michelet Troncoso MD 07/24/2024 03:27 PM EDT
--- OUTSIDE RECORDS SUMMARY | 2024-07-24 15:39 | XMS_ITS | Patient Health Record ---
Author Organization [facility] Address [address] [facility] [place] [address] Care Team Providers Care Animal Cytologist Name Role Phone Dory Martin Unavailable [phone] Reason For Referral No Information Plan Of Treatment No Information Insurance Providers Payer Name Payer Address Payer Phone Subscriber Number Group Number Insured Name Patient Relationship to Insured Coverage Start Date Coverage End Date Medicare National [employer] [address] [place] [address] Natali Mtz Self - patient is the insured
--- OUTSIDE RECORDS SUMMARY | 2024-07-24 15:39 | XMS_ITS | Clinical Summary ---
Author Organization [facility] Address [address] [place] [address] Phone Care Team Providers Care Ice Carver Name Role Phone Mt Hooker MD Primary Care Provider [phone] Allergies No known active allergies Medications CALCITRIOL [...] Orthopedic [facility] [address] [phone] Siva Lino DPTristin Poorly controlled type 2 diabetes mellitus with neuropathy (CMS/HCC V24, CMS/HCC V28) (Primary Dx); Neuropathy; Callus; Localized edema; Hammertoes of both feet; Ulcer of right heel, with fat layer exposed (CMS/HCC V24, CMS/HCC V28) 06/17/2024 10:15 AM EST Office Visit [facility] [address] [phone] Siva Lino, DPM Controlled type 2 diabetes with neuropathy (CMS/HCC V24, CMS/HCC V28) (Primary Dx); Hammertoes of both feet; Dermatophytosis, nail; Ulcer of right heel, with fat layer exposed (CMS/HCC V24, CMS/HCC V28) 06/10/2024 10:00 AM EST Office Visit [facility] [address] [phone] Siva Lino A, DPM Controlled type 2 diabetes with neuropathy (CMS/HCC V24, CMS/HCC V28) (Primary Dx); Ulcer of right heel, with fat layer exposed (CMS/HCC V24, CMS/HCC V28); Non-pressure chronic ulcer of right ankle with fat layer exposed (CMS/HCC V24, CMS/HCC V28) 06/03/2024 10:15 AM EST Office Visit [facility] [address] [phone] Siva Lino, DPM Hammertoes of both feet (Primary Dx); Controlled type 2 diabetes with neuropathy (CMS/HCC V24, CMS/HCC V28); Ulcer of right heel, with fat layer exposed (CMS/HCC V24, CMS/HCC V28) 05/06/2024 1:00 PM EST Office Visit Orthopedic [facility] [address] [facility] [address] [place] [phone] Siva Lino, HATTIE Controlled type 2 diabetes with neuropathy ([facility] V24, [facility] V28) (Primary Dx); Hammertoes of both feet; Xerosis cutis; Ulcer of right heel, limited to breakdown of skin ([facility] V24, [facility] V28); Dermatophytosis, nail from Last 3 Months Immunizations Name Administration Dates Next Due COVID-19 (Moderna/Spikevax) 12yo and older 01/26 Moderna SARS-CoV-2 COVID-19, mRNA, LNP-S, preservative free 07/09/2020,05/26/2020 Medical History Medical History Date Comments Kidney failure DX:Kidney failur e Diabetes mellitus ([facility] V24, [facility] V28) DX:Diabetes mellitus (HCC) Diabetic neuropathy ([facility] V24, [facility] V28) DX:Diabetic neuropathy (HCC) Type 1 diabetes ([facility] V24, [facility] V28) DX:Type 1 diabetes ([facility]) Hypertension DX:Hypertension Social History Tobacco Use Types [...] 10:30 AM EDT Office Visit [facility]opedic [facility] 250 175 [facility] 250 [place] [phone] Siva Lino, DPM [address] [facility] [address] [place] [address] Health Maintenance Due Date Last Done Comments [...] , 01/26/2022, Additional history exists Meningococcal B Vaccine Aged Out No l onger eligible based on patient's age to complete [...] Recently Relevant to Health Maintenance Results * Hemoglobin A1c (02/27/2023) [facility] Hemoglobin A1C 0.0 % Comment:no interpretation, a bstracted Blood Venous blood specimen / Unknown Historical Provider LAB BLOOD ORDERABLES Araceli l Result * Annual BMP Blood Test (04/06/2022) Pathologist [facility] Annual BMP Blood Test abstracted Historical Provider HEALTH MAINTENANCE Final Result * Hepatitis C Screening (11/30/2020) Pathologist [facility] Hepatitis C Screening abstracted Historical Provider HEALTH MAINTENANCE Final Result from Last 3 Months or Most Recently Relevant to Health Maintenance Insurance MEDICA[place] - [place] MEDICARE Care Teams Ice Carver Relationship Specialty Start Date End Date Mt Hooker MD [address] [place] [phone] PCP - General Internal Medicine 09/26/21
--- OUTSIDE RECORDS SUMMARY | 2024-07-24 15:39 | XMS_ITS | Encounter Summary ---
Author Organization [facility] Address [address] [place] [address] Care Team Providers Care Outside Rigger Name Role Phone Ally Ferreira Primary Care Provider [phone] Encounter Details Date Type Department Care Team (Late st Contact Info) Description 02/09/2021 Orders Only [facility] Nuclear Medicine [address] [place] [address] Shiva Duran MD [address] [place] [address] Social History Tobacco Use Types Packs/Day Years [...] Info) Description 02/05/2025 11:00 AM EDT Follow-Up [facility] Renal Transplant [address] [place] [address] Vinicio Harris MD [address] [place] [address] 02/05/2025 11:45 AM EDT Follow-Up [facility] Renal Transplant [address] [place] [address] 02/05/2025 12:30 PM EDT Social Work [facility] Renal Transplant [address] [place] [address] Michelet Swartz documented as of this encounter Visit Diagnoses Not on filedocumented in this encounter Care Teams Outside Rigger Relationship Specialty Start Date End Date Ally Ferreira [address] [place] [address] PCP - General 02/04/24 documented as of this encounter
--- OUTSIDE RECORDS SUMMARY | 2024-07-24 15:39 | XMS_ITS | Encounter Summary ---
Author Organization [facility] Address [address] [facility] [address] [place] [address] Phone Care Team Providers Care Fashion Model Name Role Phone Azucena Bradley MD Primary Care Provider [phone] Reason for Visit * Reason Comments Med Refill Encounter Details Date Type Department Care Team ([facility] st Contact Info) Description 06/04/2023 Refill [facility] [address] [place] [phone] Wesley Pagan MD [address] [facility] [address] [place] [phone] Social History Tobacco Use Types Packs/Day Years [...] on filedocumented in this encounter Care Teams Fashion Model Relationship Specialty Start Date End Date Azucena Bradley MD [address] [place] [address], Floor [address] [place] [address] PCP - General Internal Medicine 01/22/24 documented as of this encounter
--- OUTSIDE RECORDS SUMMARY | 2024-07-24 15:39 | XMS_ITS | Encounter Summary ---
Author Organization [facility] Address [address] [place] [address] Phone Care Team Providers Care Maintenance Controller Name Role Phone Azucena Bradley MD Primary Care Provider [phone] Reason for Visit * Reason Comments Med Refill Encounter Details Date Type Department Care Team (Late st Contact Info) Description 03/06/2021 Refill [facility] [address] [place] [address] Forrest Adamson MD Social History Tobacco [...] on filedocumented in this encounter Care Teams Maintenance Controller Relationship Specialty Start Date End Date Azucena Bradley MD [address] [place] [address], [facility] 3 [place] [address] PCP - General Internal Medicine 01/22/24 documented as of this encounter
--- OUTSIDE RECORDS SUMMARY | 2024-07-24 15:39 | XMS_ITS | Encounter Summary ---
Author Organization [employer] Address [address] [facility] 7t [place] [address] Care Team Providers Care Police Magistrate Name Role Phone Ally Ferreira MD Primary Care Pro vider Encounter Details Date Type Department Care Team (Late st Contact Info) Description 07/23/2024 Telephone [facility] MEDICINE [address] [place], [place] [phone] Ally Ferreira MD [address] [place] [address] Social History Tobacco Use Types Packs/Day Years [...] encounter Miscellaneous Notes * Telephone Encounter - Jody Le - 07/23/2024 4:31 PM EDT Tc from pt requesting appointment for wound. Pt stated she is on her way. Authorization Rep advise [facility] hours. documented in this encounter Plan of Treatment Upcoming Encounters Date Type Department Care Team (Late st Contact Info) Description 09/02/2024 10:15 AM EDT Office Visit [facility] [address] [place] [phone] Ally Ferreira MD [address] [place] [address] documented as of this encounter Visit Diagnoses Not on filedocumented in this encounter Additional Health Concerns Assessment Noted Time PHQ-9 Depression Total Score: 0 07/31/19 24 11:09 AM EDT documented as of this encounter Care Teams Police Magistrate Relationship Specialty Start Date End Date Ally Ferreira MD [address] [place], [place] [phone] PCP - General Internal Medicine 07/25/22 documented as of this encounter
--- OUTSIDE RECORDS SUMMARY | 2024-07-24 15:39 | XMS_ITS | Encounter Summary ---
Author Organization [facility] Address [address] [facility] [address] [place] [address] Phone Care Team Providers Care Bilingual Administrative Assistant Name Role Phone Azucena Bradley MD Primary Care Provider [phone] Reason for Visit * Reason Comments Med Refill Encounter Details Date Type Department Care Team (Late st Contact Info) Description 09/02/2023 Refill [facility] [address] [place] [phone] Paul Brothers MD [address] [facility] [address] [place] [phone] Social History Tobacco Use Types Packs/Day Years [...] on filedocumented in this encounter Care Teams Bilingual Administrative Assistant Relationship Specialty Start Date End Date Azucena Bradley MD [address] [place] [address], Floor 3 [place] [address] PCP - General Internal Medicine 01/22/24 documented as of this encounter
--- OUTSIDE RECORDS SUMMARY | 2024-07-24 15:39 | XMS_ITS | Encounter Summary ---
Author Organization [employer] Address [address] [facility] [address] 7t [place] [address] Care Team Providers Care [employer] Name Role Phone Ally Ferreira MD Primary Care Pro vider Reason for Visit * Reason Comments Wound Check Encounter Details Date Type Department Care Team (Late st Contact Info) Description 07/23/2024 5:20 PM EDT Office Visit [facility] [address] [place] [address] [phone] Kaur Hernandez MD [address] [place] [address] Ulcer of right foot with fat layer exposed (CMS/HCC) (Primary Dx) Social History Tobacco Use Types [...] AM EST documented as of this encounter Last Filed Vital Signs Vital Sign Reading Time Taken Comments Blood Pressure 163/73 07/23/2024 4:58 PM EDT Pulse 88 07/23/2024 4:58 PM EDT Temperature 36.3 ??C (97.4 ??F) 07/23/2024 4:58 PM ED T Respiratory Rate - - Oxygen Saturation 98% 07/23/2024 4:58 PM EDT Inhaled Oxygen Concentration - - Weight 70.8 kg (156 lb) 07/23/2024 4:58 PM EDT Height 154.9 cm (5' 1 ) 07/23/2024 4:58 PM EDT Body Mass Index 29.48 07/23/2024 4:58 PM EDT documented in this encounter Progress Notes * Kaur Hernandez MD - 07/23/2024 5:20 PM EDT Images from the original note were not included. SUBJECTIVE: Natali Mtz is a 33 y.o. year old female who presents for Walk In Center/foot wound . Denies recent illness, injury, or hospitalization. Acute Concerns: Patient complaining of persistent right foot ulceration for more than 4 weeks that is not improvingdespite daily dressing changes. She has mild right foot pain especially with ambulation, no fever, minimal ulcer discharge. She has been seen by area plant manager that reportedly discharged her to continue daily dressings. Her last A1c this week was 7.4 Social History Social History Narrative Not on file Patient Active Problem List Diagnosis Anxiety ESRD on hemodialysis ([facility]) Hyperlipidemia Hypertension DM (diabetes mellitus), type 1 with renal complications ([facility]) Peripheral vascular disorder ([facility]) Overweight Abnormal EKG Health care maintenance ASCUS of cervix with negative high risk HPV Lung nodule seen on imaging study Seasonal allergies Anemia Proteinuria Ascites Ulcer of right foot with fat layer exposed ([facility]) Family History Problem Relation Name Age of Onset Diabetes type II Father Other (unspecified ca) Paternal Grandfather Review of Systems Constitutional: Negative for chills, fatigue and fever. HENT: Negative for congestion, ear pain, nosebleeds, rhinorrhea, sinus pressure, sore throat and trouble swallowing. Eyes: Negative for pain and discharge. Respiratory: Negative for cough, chest tightness and shortness of breath. Cardiovascular: Negative for chest pain, palpitations and leg swelling. Gastrointestinal: Negative for abdominal pain, blood in stool, constipation, diarrhea and nausea. Endocrine: Negative for polydipsia and polyuria. Genitourinary: Negative for dysuria, frequency, genital sores, pelvic pain and vaginal discharge. Musculoskeletal: Negative for back pain and neck pain. Skin: Positive for wound. Negative for rash. Allergic/Immunologic: Negative for environmental allergies. Neurological: Negative for dizziness, seizures, weakness, light-headedness and headaches. Hematological: Negative for adenopathy. Psychiatric/Behavioral: Negative for agitation, behavioral problems, self-injury and suicidal ideas. OBJECTIVE: Vitals: 07/23/24 1658 BP: (!) 163/73 Pulse: 88 Temp: 97.4 ??F (36.3 ??C) SpO2: 98% Physical Exam Constitutional: Appearance: Normal appearance. HENT: Right Ear: Tympanic membrane and ear canal normal. Left Ear: Tympanic membrane and ear canal normal. Mouth/Throat: Mouth: Mucous membranes are moist. Pharynx: No oropharyngeal exudate or posterior oropharyngeal erythema. Eyes: Pupils: Pupils are equal, round, and reactive to light. Cardiovascular: Rate and Rhythm: Normal rate and regular rhythm. Pulses: Dorsalis pedis pulses are 2+ on the right side and 2+ on the left side. Posterior tibial pulses are 2+ on the right side and 2+ on the left side. Heart sounds: No murmur heard. Pulmonary: Breath sounds: Normal breath sounds. No wheezing. Abdominal: General: Bowel sounds are normal. Palpations: Abdomen is soft. Tenderness: There is no abdominal tenderness. Musculoskeletal: General: No tenderness. Normal range of motion. Cervical back: Normal range of motion. No tenderness. Right foot: No deformity. Left foot: No deformity. Right Lower Extremity: (4th and 5th toe) Feet: Right foot: Protective Sensation: 7 sites tested. 7 sites sensed. Skin integrity: Ulcer (1 x0.8 oval ulceration on the lateral aspect of right heel. The fibrinous material in the center, no foul-smelling and with peripheral callous, no erythema. Extreme heel dryness. No interdigital maceration or lesions) and dry skin present. No fissure. Toenail Condition: Right toenails are normal. Left foot: Protective Sensation: 7 sites tested. 7 sites sensed. Skin integrity: Callus and dry skin present. No ulcer or fissure. Toenail Condition: Left toenails are normal. Skin: General: Skin is warm. Neurological: General: No focal deficit present. Mental Status: She is alert and oriented to person, place, and time. Psychiatric: Mood and Affect: Mood normal. Problem List Items Addressed This Visit Ulcer of right foot with fat layer exposed (CMS/HCC) - Primary I do not see any signs of infection at this time, will order x-rays to check for bone changes. Follow-up with PCP Also dressing done by nurse today, she will continue doing dressings daily with topical antibiotic. Advised to use only soap and water, avoid Betadine solutions on the ulcer Advised to wear heel cushion to avoid friction on affected area Follow-up with PCP next month or earlier as needed Recommended importance of tight control of diabetes Relevant Orders XR Foot 3+ Views Right Follow Up: Current Outpatient Medications on File Prior to Visit Medication Sig Dispense Refill ammonium lactate (Lac-Hydrin) 12 % lotion Apply 1 Application. topically if needed for dry skin. Basaglar KwikPen 100 UNIT/ML pen Inject 24 Units under the skin Once per day. carvedilol (Coreg) 25 MG tablet TAKE 1 + 1/2 TABLET BY MOUTH TWICE A DAY WITH FOOD 270 tablet 1 Continuous Glucose Batch Records Clerk (Dexcom G6 load tester) device Use as directed. E10.65 [facility] Saline Nasal [place] 0.65 % nasal spray ADMINISTER 1 SPRAY INTO EACH NOSTRIL IF NEEDED FOR CONGESTION. 44 mL 1 Cyanocobalamin 1000 MCG capsule Take 1 tablet by mouth in the morning. 90 capsule 0 Fiasp FlexTouch 100 UNIT/ML injection 4-10 UNITS SUBCUTANEOUSLY 3 TIMES A DAY folic acid (Folvite) 800 MCG tablet Take by mouth in the morning. hydrALAZINE (Apresoline) 100 MG tablet Take 0.5 tablets (50 mg) by mouth 2 times daily. 30 tablet 1 Insulin Disposable Pump (Omnipod 5 [id number] Pods Gen 5) misc 1 each every 3rd (third) day. Change pod every 72 hours ipratropium (Atrovent) 0.06 % nasal spray Administer 2 sprays into each nostril if needed in the morning, at noon, and at bedtime (allergies). levalbuterol (Xopenex) 45 MCG/ACT inhaler Inhale 2 puffs every 4 (four) hours if needed for wheezing. Liletta, 52 MG, 20.1 MCG/DAY intrauterine device 52 mg by Intrauterine route. Lokelma 10 g packet TAKE 10 GRAMS BY MOUTH 2X A WEEK ON NON DIALYSIS DAYS loratadine (Claritin) 10 MG tablet Take 10 mg by mouth in the morning. LORazepam (Ativan) 0.5 MG tablet Take 0.5 mg by mouth Once per day. montelukast (Singulair) 10 MG tablet Take 10 mg by mouth at bedtime. Multiple Vitamin (Daily-Alyx Multivitamin) tablet Take 1 tablet by mouth in the morning. NIFEdipine XL (Procardia XL) 90 MG 24 hr tablet TAKE 1 TABLET BY MOUTH EVERY MORNING. SWALLOW WHOLE. 90 tablet 0 pregabalin (Lyrica) 25 MG capsule Take 1 capsule (25 mg) by mouth 2 times daily. 60 capsule 0 pyridoxine (Vitamin B-6) 100 MG tablet Take 100 mg by mouth in the morning. sevelamer carbonate (Renvela) 800 MG tablet Take 4 tablets by mouth with breakfast, with lunch, andwith evening meal. valACYclovir (Valtrex) 500 MG tablet TAKE 1 TABLET BY MOUTH THREE TIMES A WEEK. GIVE 1 TABLET AFTERDIALYSIS WHEN GIVEN ON DIALYSIS DAY. 36 tablet 2 Velphoro 500 MG chewable tablet Chew 1 tablet with breakfast, with lunch, and with evening meal. No current facility-administered medications on file prior to visit. * Bettye Llamas RN - 07/23/2024 5:20 PM EDTAssociated Order(s): Wound Care Post-Procedure Diagnose(s): Ulcer of right foot with fat layer exposed (CMS/HCC) Patient ID: Natali Mtz is a 33 y.o. female. Wound Care Date/Time: 07/23/2024 5:51 PM Performed by: Bettye Llamas RN Authorized by: Kaur Hernandez MD Consent: Consent obtained: Verbal Consent given by: Patient Procedure details: Wound location: Foot Foot location: R heel Dressing: Dressing applied: 2x2 Wrapped with: Dean 2 inch Post-procedure details: Procedure completion: Tolerated Comments: Pt with diabetic ulcer on right heel. Covered with sterile 2x2 gauze and wrapped with 1in stretch gauze to secure bandage. Went over wound care instructions. Advised to clean once daily with warm water and antibacterial soap, dry completely and cover with sterile dressing. Do not use rubbing alcohol, iodine, or hydrogen peroxide as this can kill good bacteria and delay wound healing. If S/Sx of infection (ie pustulant drainage, warmth, erythema, fever) come back to [facility] or call C. Try to keep pressure off of it if possible. documented in this encounter Miscellaneous Notes * Assessment & Plan Note - Kaur Hernandez MD - 07/23/2024 5:50 PM EDT Associated Problem(s): Ulcer of right foot with fat layer exposed (CMS/HCC) I do not see any signs of infection at this time, will order x-rays to check for bone changes. Follow-up with PCP Also dressing done by nurse today, she will continue doing dressings daily with topical antibiotic. Advised to use only soap and water, avoid Betadine solutions on the ulcer Advised to wear heel cushion to avoid friction on affected area Follow-up with PCP next month or earlier as needed Recommended importance of tight control of diabetes documented in this encounter Plan of Treatment Upcoming Encounters Date Type Department Care Team (Late st Contact Info) Description 09/02/2024 10:15 AM EDT Office Visit [facility] [address] [facility] [place] [address] Ally Ferreira MD [address] [place] [address] documented as of this encounter Procedures Procedure Name Priority Date/Time Associated Diagnosis Comments XR FOOT 3+ VIEWS RIGHT Routine 07/24/2024 1:06 PM EDT Ulcer of right foot with fat layer exposed (CMS/HCC) WOUND CARE Routine 07/23/2024 5:51 PM EDT Ulcer of right foot with fat layer exposed (CMS/HCC) documented in this encounter Results * XR Foot 3+ Views Right (07/24/2024 1:06 PM EDT) Anatomical Region Laterality Modality Lower Extremities, Foot Right [facility] 07/24/2024 1:06 PM EDT Narrative 07/24/2024 3:30 PM EDT ? [facility] ?[address] ?[place] [address] ?XRay Report ? Signed ? Patient: Smith,Natali L ?MR#: [id number] ?? 0620 ? : 1990 ?Acct:[id number] ? Age/Sex: 33 / F ?ADM Date: 07/24/24 ? Loc: HO.XRAY ? Attending Dr: Kaur Hernandez MD ? Ordering Physician: Kaur Hernandez MD ?? Date of Service: 07/24/24 ?? Procedure(s): XR foot RT min 3V ?? Accession Number(s): [id number] ? cc: Kaur Hernandez MD; Ally Ferreiar MD ? EXAMINATION: ?? XR FOOT, RIGHT ? CLINICAL INFORMATION: ?? chronic ulcer right foot, patient is diabetic ? COMPARISON: ?? None available. ? TECHNIQUE: ?? AP, lateral, and oblique views of the right foot. ? FINDINGS: ?? Has been prior resection of the fourth and fifth digits at the level of ?? the proximal metatarsals. ?? There has been partial resection of the third digit at the proximal ?? phalanx level, versus resorptive changes related to old healed ?? osteomyelitis . ?? Normal bone mineralization. No fracture, dislocation, or suspicious ?? bone lesion. ?? No radiographic evidence of osteomyelitis or focal region of ?? osteopenia. ?? The midfoot and hindfoot have a normal imaging appearance. ? Soft tissue ulceration evident involving the lateral plantar heel. No ?? subcutaneous emphysema. ?? There are diffuse soft tissue vascular calcifications. ? XR/XR foot RT min 3V ?? IMPRESSION: ?? 1. Postop changes as detailed. ?? 2. Soft tissue ulcer in the lateral plantar heel region. ?? 3. No radiographic evidence of acute osteomyelitis. ? Electronically signed by: ??Michelet Troncoso MD ??07/24/2024 03:27 PM EDT RP ? Dictated By: ?Michelet Troncoso MD ? Signed By: ?<Electronically signed by Michelet Troncoso MD in OV> ?07/24/24 1527 ? DD/ 1306 ? TD/TT: 07/24/24 1318 ? Aerospace Project Engineer: ? Procedure Note Chino Perkins - 07/24/2024 [place] [address] XRay Report Signed Patient: Natali Mtz LMR#: [id number] 0620 : 1990Acct:[id number] Age/Sex: 33 / FADM Date: 07/24/24 Loc: [facility] Attending Dr: Kaur Hernandez MD Ordering Physician: Kaur Hernandez MD Date of Service: 07/24/24 Procedure(s): XR foot RT min 3V Accession Number(s): [id number] cc: Kaur Hernandez MD; Ally Ferreira MD EXAMINATION: XR FOOT, RIGHT CLINICAL INFORMATION: chronic ulcer right foot, patient is diabetic COMPARISON: None available. TECHNIQUE: AP, lateral, and oblique views of the right foot. FINDINGS: Has been prior resection of the fourth and fifth digits at the level of the proximal metatarsals. There has been partial resection of the third digit at the proximal phalanx level, versus resorptive changes related to old healed osteomyelitis . Normal bone mineralization. No fracture, dislocation, or suspicious bone lesion. No radiographic evidence of osteomyelitis or focal region of osteopenia. The midfoot and hindfoot have a normal imaging appearance. Soft tissue ulceration evident involving the lateral plantar heel. No subcutaneous emphysema. There are diffuse soft tissue vascular calcifications. XR/XR foot RT min 3V IMPRESSION: 1. Postop changes as detailed. 2. Soft tissue ulcer in the lateral plantar heel region. 3. No radiographic evidence of acute osteomyelitis. Electronically signed by: Michelet Troncoso MD 07/24/2024 03:27 PM EDT RP Dictated By: Michelet Troncoso MD Signed By: <Electronically signed by Michelet Troncoso MD in OV> 07/24/24 1527 DD/ 1306 TD/TT: 07/24/24 1318 Aerospace Project Engineer: Kaur Hernandez MD IMG XR PROCEDURES Final Result * Wound Care (07/23/2024 5:51 PM EDT) Bettye House RN - 07/23/2024 5:51 PM EDT Bettye Llamas RN ? 07/23/2024 ??6:22 PM Wound Care Date/Time: 07/23/2024 5:51 PM Performed by: Bettye Llamas RN Authorized by: Kaur Hernandez MD ?? Consent: ??Consent obtained: ??Verbal ??Consent given by: ??Patient Procedure details: ??Wound location: ??Foot ??Foot location: ??R heel Dressing: ??Dressing applied: ??2x2 ??Wrapped with: ??Dean 2 inch Post-procedure details: ??Procedure completion: ??Tolerated Comments: ?? Pt with diabetic ulcer on right heel. Covered with sterile 2x2 gauze and wrapped with 1in stretch gauze to secure bandage. Went over wound care instructions. Advised to clean once daily with warm water and antibacterial soap, dry completely and cover with sterile dressing. Do not use rubbing alcohol, iodine, or hydrogen peroxide as this can kill good bacteria and delay wound healing. If S/Sx of infection (ie pustulant drainage, warmth, erythema, fever) come back to WIC or call HHC. Try to keep pressure off of it if possible. us Kaur Hernandez MD IN CLINIC/BEDSIDE ORDERA BLES Final Result documented in this encounter Visit Diagnoses Diagnosis Ulcer of right foot with fat layer exposed (CMS/HCC)- Primary documented in this encounter Additional Health Concerns Assessment Noted Time PHQ-9 Depression Total Score: 0 07/31/19 24 11:09 AM EDT documented as of this encounter Care Teams [employer] Relationship Specialty Start Date End Date Ally Ferreira MD [address] [place] [address] PCP - General Internal Medicine 07/25/22 documented as of this encounter
--- OUTSIDE RECORDS SUMMARY | 2024-07-24 15:39 | XMS_ITS | Encounter Summary ---
Author Organization [facility] Address [address] [place] [address] Phone Care Team Providers Care Consulting Practice Manager Name Role Phone Azucena Bradley MD Primary Care Provider [phone] Reason for Visit * Reason Comments Med Refill Encounter Details Date Type Department Care Team (Late st Contact Info) Description 06/22/2022 Refill [facility] [address] [place] [address] Forrest Adamson MD Social History Tobacco [...] on filedocumented in this encounter Care Teams Consulting Practice Manager Relationship Specialty Start Date End Date Azucena Bradley MD [address] [place] [address], [facility] 3 [place] [address] PCP - General Internal Medicine 01/22/24 documented as of this encounter
--- OUTSIDE RECORDS SUMMARY | 2024-07-24 15:40 | XMS_ITS | Clinical Summary ---
Author Organization [employer] Address [address] [place] [address] Care Team Providers Care Fur Sewer Name Role Phone Ally Ferreira MD Primary [...] tablet 1 023 Active [facility] Saline Nasal [place] 0.65 % nasal spray ADMINISTER 1 SPRAY [...] tablet 1 02/29/2 024 Active Continuous Glucose Residential Builder (Dexcom G6 computer technician) device Use as directed. E10.65 Active Fiasp [...] 2 Active Insulin Disposable Pump (Omnipod 5 FelB6U4 Pods Gen 5) misc 1 each every [...] MOUTH EVERY MORNING. SWALLOW WHOLE. 90 tablet Active neomycin-bacitr acin-polymyxin (Neosporin) 5-400-5000 ointment Apply topically 2 times daily. 14.2 g Active NIFEdipine XL (Procardia XL) 90 MG 24 hr tabletIndicatio ns:Hypertension , unspecified type TAKE 1 TABLET BY MOUTH IN THE MORNING DO NOT CRUSH, CHEW, OR SPLIT. 90 tablet 1 024 2024 Discontinued Active Problems Problem Noted Date Diagnosed Date Ulcer of right foot with fat layer exposed 07/23 Assessment & Plan (07/23/2024 5:50 PM EDT): I do not see any signs of [...] Recommended importance of tight control of diabetes Ascites 09/05/2023 Lung nodule seen on imaging [...] possible transplant in the future would like dye blender to evaluate pt -referred today Seasonal allergies 01/11/2023 Assessment & Plan (01/11/2023 7:58 PM EDT): Reports seasonal allergies symptoms -px ocean spray,cetirizine 5 mg max 3 times a week Anemia 01/11/2023 Assessment & Plan (01/11/2023 8:03 PM EDT): 07/2022 Hb 9.9, AEC 597 Anemia from chronic dx f w application support developer -states getting tx w application support developer- removed from iron pills Peripheral vascular disorder [...] reports to be following with vascular at [facility] --- ---- requested record to Yariel Verma [...] and exercise,discussed healthy life style -to see accounting bookkeeper referred by her endoc Abnormal EKG 08/10/2022 Assessment & Plan (01/11/2023 7:44 PM EDT): -EKG 07/2022 showed now acute ischemic findings there is QTC prolonged to 491 but noted in the past as well -states was seen by cards before unsure reason but w no major findings -found inconclusive stress test done in 2020 -Per pt has been seen by cards at [facility] -sounds possible was evaluated by cards [...] interested in implatn option --referred today w ConorKelleyMilka. -reports hx of neg PPD done at her job in the past -vaccine: -tdap 2019 ,covid 19 monov x 3, Bivalent x1 , HPV x3, hep B x3-immune, [id number] x2 and later p13 in 2018 -will [...] visit , HPV x3, hep B x3, [id number] x2 and later p13 in 2019 ,MMRx2,varicellax2 [...] . Natali was offered [facility]-day appointments [facility]. Patient prefers a referral outside the HC. [...] & Plan (01/11/2023 7:48 PM EDT): cara w application support developer on HD ( EstelleWEstelle) In eval x renal/pancreatic transplant----however From note [...] called today CM from the hospital # [phone] and discussed pt's concern to be taken [...] Assessment & Plan (08/10/2022 1:01 PM EDT): cara w application support developer on HD ( Kwesi) In eval x renal/pancreatic transplant Hypertension 05/25/2022 [...] NOT having HD -her sessions are on -Estelle--pt taking after checking BP -if low BP holds dose -continue losartan per pt taking 2 tab of 100 mg?? --px by her application support developer --advised pt to follow w her specialist to confirm dose of med Assessment & Plan (08/10/2022 12:41 PM EDT): BP at home per pt <140/90 Stopped hydralazine by her application support developer for hypotensive episodes after HD Currently denies [...] losartan ? -all meds refilled by her application support developer ,states dont need any meds refilled -f BP at her next apt -advised to check at home and bring readings Hyperlipidemia 09/06/2012 Proteinuria 01/09/2012 03/07/2023 DM (diabetes mellitus), type 1 with renal compli cations 04/16/1958 Assessment & Plan (01/11/2023 8:05 PM EDT): dxed w DM1 at age 11 y of age c/w nephropathy -ESRD on HD complicated w hypoglycemic events f w campaign specialist -Dr Morro Amor on novolog SS ( 6 to 8 u TID)and lantus 18 u HS Hb1AC capillary today is 12.3<---12, LDL 86,CBG elevated today at 235 -cupola tapper referred today -opthalmo has apt for 05/2023 -sent glucose tab-before and would discuss about gluconate at next visit x emergency -continue care w her campaign specialist -will hold on doing Changes per pt [...] HD complicated w hypoglycemic events f w campaign specialist -Dr Morro Amor on novolog SS ( 6 to 8 u TID)and lantus 10 u HS --got today records of her last visit w endo in 07/2022 Hb1AC capillary 12 today --from last endo note had hb1AC in 07/2022 10.9? -cupola tapper referred already by her campaign specialist -pd to abigail bryant -opthalmo referral today Pt has continuous capillary glucose check marking bw 55 to 400s ----pt takes her readings to her endo office to do changes in meds -to take tomorrow to endo's office -Pd to see a community engagement leader and accounting bookkeeper referred by her campaign specialist ----pt recently got the CGM by her [...] Encounters Date Type Department Care Team Description 07/23/2024 5:20 PM EDT Office Visit [facility] [address] [place] [address] Kaur Hernandez MD Ulcer of right foot with fat layer exposed (CMS/HCC) (Primary Dx) 07/23/2024 Telephone [facility] [address] [place] [address] Ally Ferreira MD 07/17/2024 Orders Only GENERIC EXTERNAL DATA DEPARTMENT Provider, Generic External Data 07/14/2024 Refill [facility] [address] [place] [address] Ally Ferreira MD Hypertension, unspecified type 06/27/2024 Population Health Risk Score [facility] (C3) Department [address] [phone] Provider, Population Health Generic 06/26/2024 Orders Only GENERIC EXTERNAL DATA DEPARTMENT Provider, Generic External Data 06/23/2024 Telephone [facility] [address] [place] [address] Ally Ferreira MD August recalls 06/03/2024 Refill [facility] [address] [place] [address] Ally Ferreira MD 05/30/2024 11:00 AM EST Telemedicine [facility] [place] [place] [address] Randi Marcelino, PharmD Type 1 diabetes mellitus with chronic kidney disease on chronic dialysis (CMS/HCC) (Primary Dx); Hypertension, unspecified type; Hyperlipidemia, unspecified hyperlipidemia type 05/13/2024 10:30 AM EST Office Visit [facility] [place] [address] Rosy Dawson ANP Hospital discharge follow-up (Primary Dx); Hyperkalemia; Type 1 diabetes mellitus with chronic kidney disease on chronic dialysis (CMS/HCC); Arm DVT (deep venous thromboembolism), acute, right (CMS/HCC); ESRD on hemodialysis (CMS/[facility]); Elevated brain natriuretic peptide (BNP) level 05/13/2024 Travel 05/12/2024 Telephone [facility] [place] [place] [address] Ally Ferreira MD 04/25/2024 Telephone [facility] [facility] [place] [address] Onur Rice, [facility] Follow-up from Last 3 Months Immunizations Name Administration [...] 07/23/2024 4:58 PM ED T Respiratory Rate 14 05/13/2024 10:39 AM EST Oxygen Saturation 98% 07/23/2024 4:58 PM EDT Inhaled Oxygen Concentration - - Weight 70.8 kg (156 lb) 07/23/2024 4:58 PM EDT Height 154.9 cm (5' 1 ) 07/23/2024 4:58 PM EDT Body Mass Index 29.48 07/23/2024 4:58 PM EDT Plan of Treatment Upcoming Encounters Date Type Department Care Team (Late st Contact Info) Description 09/02/2024 10:15 AM EDT Office Visit [facility] [address] [place] [address] Ally Ferreira MD [address] [place], [place] [phone] Health Maintenance Due Date Last Done Comments Alcohol/Substance Use Screening 2003 Family Planning (PISQ) 09/09/2006 Diabetes: Hemoglobin A1C 12/07/2023 024, 04/26/2023, 01/11/2023, Additional history exists Eye Exam 06/18/2024 06/19/2023, 03/0 08/2023, 06/19/2023, Additional history exists SDOH Screening 07/18/2024 07/19/2023 Depression Screening 07/30/2024 07/31/2023, 07/31/19 24 Lipid Panel 09/05/2024 09/06/2023, 040 11/2023, 08/11/2022, Additional history exists Diabetes: Foot Exam 07/23/2025 07/23/2024, 07/23/2024, 07/23/2024, Additional history exists Tobacco Screening 07/23/2025 07/23/2024 Cervical Cancer Screening 05/17/2028 HPV/Cotest 05/17/2028 02/03/2021 [...] Comments XR FOOT 3+ VIEWS RIGHT Routine 1:06 PM EDT Ulcer of right foot with fat layer exposed (CMS/HCC) WOUND CARE Routine 07/23/2024 5:51 PM EDT Ulcer of right foot with fat layer exposed (CMS/HCC) RESPIRATORY ALLERGY PROFILE REGION I Routine 07/17/2024 11:19 AM EDT IMMUNOGLOBULIN E Routine 07/17/2024 11:1 9 AM EDT IMMUNOGLOBULIN G SUBCLASSES PANEL Routine 07/17/2024 11:19 AM EDT FRUCTOSAMINE Routine 07/17/2024 11:19 AM EDT IMMUNOGLOBULINS, QUANTITATIVE, IGA, IGG, IGM Routine 07/17/2024 11:19 AM EDT SED RATE BY MODIFIED WESTERGREN Routine 07/17/2024 11:19 AM EDT CBC WITH AUTO DIFFERENTIAL Routine 07/17/2024 11:19 AM EDT GLUCOSE, WHOLE BLOOD Routine 06/26/2024 10:22 AM EDT HEPATITIS C AB W/REFL TO HCV RNA, [...] Recently Relevant to Health Maintenance Results * XR Foot 3+ Views Right (07/24/2024 1:06 PM EDT) Anatomical Region Laterality Modality Lower Extremities, Foot Right [facility] 07/24/2024 1:06 PM EDT Narrative 07/24/2024 3:30 PM EDT ? [facility] [place] ?[address] ?[place] [address] ?XRay Report ? Signed ? Patient: Smith,Natali L ?MR#: [id number] ?? 0620 ? : 1990 ?Acct:[id number] ? Age/Sex: 33 / F ?ADM Date: 04/10/25 ? Loc: HO.XRAY ? Attending Dr: Kaur Hernandez MD ? Ordering Physician: Kaur Hernandez MD ?? Date of Service: 07/24/24 ?? Procedure(s): XR foot RT min 3V ?? Accession Number(s): [id number] ? cc: Kaur Hernandez MD; Ally Ferreira MD ? EXAMINATION: ?? XR FOOT, RIGHT [...] DD/ 1306 ? TD/TT: 07/24/24 1318 ? Apartment Maintenance: ? Procedure Note Chino Perkins - 07/24/[address] [address] XRay Report Signed Patient: Natali Mtz LMR#: [id number] 0620 : 1990Acct:[id number] Age/Sex: 33 / FADM Date: 07/24/24 Loc: DWAIN Attending Dr: Kaur Hernandez MD Ordering Physician: Kaur Hernandez MD Date of Service: 07/24/24 Procedure(s): XR foot RT min 3V Accession Number(s): [id number] cc: Kaur Hernandez MD; Ally Ferreira MD [...] Michelet Troncoso MD 07/24/2024 03:27 PM EDT Dictated By: Michelet Troncoso MD Signed By: <Electronically signed by Michelet Troncoso MD in OV> 07/24/24 1527 DD/ 1306 TD/TT: 07/24/24 1318 Apartment Maintenance: Kaur Hernandez MD IMG XR PROCEDURES Final Result * Wound Care (07/23/2024 5:51 PM EDT) Narrative Bettye Llamas RN - 07/23/2024 5:51 PM EDT Bettye [...] drainage, warmth, erythema, fever) come back to [facility] or call [facility]. Try to keep pressure off of it if possible. us Kaur Hernandez MD IN CLINIC/BEDSIDE ORDERA BLES Final Result * (ABNORMAL) Respiratory Allergy Profile Region I (07/17/2024 11:19 AM EDT) Mouse Urine Proteins (E72) IgE <0.10 kU/L [facility] Class 0 [facility] Cockroach (I6) IgE <0.10 kU/L [facility] Class 0 [facility] Dermatophagoides farinae (D2) IgE 1.28(A) kU/L [facility] Class 2 [facility] Cat Dander (E1) IgE <0.10 kU/L [facility] Class 0 [facility] Comment:THIS TEST WAS PERFOR MED AT:[employer] [address] [phone] HUNTER MD Dog Dander (E5) IgE 1.19(A) kU/L [facility] Class 2 [facility] Comment:THIS TEST WAS PERFOR MED AT:[employer] [place] [phone] HUNTER MD Faisal Grass (G6) IgE 0.21(A) kU/L [facility] Class 0/1 [facility] Cladosporium herbarum (M2) IgE <0.10 kU/L [facility] Class 0 [facility] Aspergillus Fumigatis (M3) IgE <0.10 kU/L [facility] Class 0 [facility] Alternaria alternata (M6) IgE <0.10 kU/L [facility] Class 0 [facility] Comment:THIS TEST WAS PERFOR MED AT:[employer] [place] [phone] Parminder WILCOX Stone[place] (t6) IgE <0.10 kU/L [facility] Class 0 [facility] [place] (T7) IgE 1.46(A) kU/L [facility] Class 2 [facility] [place] Tree (T10) IgE <0.10 kU/L [facility] Class 0 [facility] [place] (T11) IgE <0.10 kU/L [facility] Class 0 [facility] [place] (T14) IgE <0.10 kU/L [facility] Class 0 [facility] [place] (t15) IgE <0.10 kU/L [facility] Class 0 [facility] [place] (T70) IgE <0.10 kU/L [facility] Class 0 [facility] Common Ragweed (Short) (W1) IgE 0.67(A) kU/L [facility] Class 1 [facility] Mugwort (w6) IgE 0.41(A) kU/L [facility] Class 1 [facility] Dermatophagoides pteronyssinus (D1) IgE 1.56(A) kU/L [facility] Class 2 [facility] Berm[place] Grass (g2) IgE <0.10 kU/L [facility] Class 0 [facility] Penicillium Notatum (M1) IgE <0.10 kU/L [facility] Class 0 [facility] Birch (T3) IgE 1.57(A) kU/L [facility] Class 2 [facility] Elm (t8) IgE <0.10 kU/L [facility] Class 0 [facility] Maple (Vigo) (T1) IgE <0.10 kU/L [facility] Class 0 [facility] Rough Pigweed (W14) IgE <0.10 kU/L [facility] Class 0 [facility] Sheep Maple [place] (W18) IgE <0.10 kU/L [facility] Class 0 [facility] Allergen Comment See Below [facility] Comment: Specific ?Level of AllergenIGE Class ?kU/L ? Specific IGE Antibody ----- ? --------- ?0 ?<0.10 ? Absent/Undetectable ??0/1 ?0.10-0.34 ? Very Low Level ??1 ?0.35-0.69 ? Low Level ??2 ?0.70-3.49 ? Moderate Level ??3 ?3.50-17.4 ? High Level ??4 ?17.5-49.9 ? Very High Level ??5 ?50-100 ?Very High Level ??6 ?>100 ?Very High LevelThe clinical relevance of allergen results of0.10-0.34 kU/L are undetermined and intended forspecialist use.Allergens denoted with a include results usingone or more analyte specific reagents. In thosecases, the test was developed and its analyticalperformance characteristics have been determined by[employer]. It has not been cleared or approvedby the U.S. Food and Drug Administration. This assayhas been validated pursuant to the CLIA regulationsand is used for clinical purposes.THIS TEST WAS PERFORMED AT:[employer] [place] [address] ??[phone] HUNTER MD 07/17/2024 11:1 9 AM EDT 07/17/2024 11:19 AM EDT us Generic External Data Provider LAB BLOOD ORDERAB LES Final Result [facility] [address] [place] [phone] [phone] * (ABNORMAL) CBC auto differential (07/17/2024 11:19 AM EDT) White Blood Count 14.8(H) 4.8 - 10.8 X10*3/uL [facility] Red Blood Count 3.20(L) 4.20 - 5.50 X10*6/uL [facility] Hemoglobin 9.7(L) 12.0 - 16.0 g/dl [facility] Hematocrit 29.7(L) 37.0 - 47.0 % [facility] Mean Corpuscular Volume 92.8 80.0 - 98.0 fL [facility] Mean Corpuscular Hemoglobin 30.3 27.0 - 33.0 pg [facility] Mean Corpuscular HGB Conc 32.7 31.0 - 35.0 g/dl [facility] Red Cell Distribution Width 15.9 11.0 - 16.0 % [facility] Platelet Count 296 160 - 400 X10*3/uL [facility] Mean Platelet Volume 11.0 9.4 - 12.3 fL [facility] Neutrophils Percent Auto 71.3 45 - 73 % [facility] Imm Gran Pct Auto 0.6(H) 0.0 - 0.4 % [facility] Lymphocytes Percent Auto 13.6(L) 20 - 40 % [facility] Monocytes Percent Auto 7.2 2 - 11 % [facility] Eosinophils Percent Auto 6.4(H) 0 - 4 % [facility] Basophils Percent Auto 0.9 0 - 2 % [facility] NRBC Pct Auto 0.0 0.0 - 0.2 /100WBC [facility] Neutrophils Absolute Auto 10.5(H) 2.0 - 8.3 x10*3/uL [facility] Imm Gran Abs Auto 0.09(H) 0.00 - 0.03 X10*3/uL [facility] Lymphocytes Absolute Auto 2.0 1.2 - 4.9 X10*3/uL [facility] Monocytes Absolute Auto 1.1 0.1 - 1.2 X10*3/uL [facility] Eosinophils Absolute Auto 0.9(H) 0.0 - 0.4 X10*3/uL [facility] Basophils Absolute Auto 0.1 0.0 - 0.2 X10*3/uL [facility] NRBC Abs Auto 0.000 0.0 - 0.012 X10*3/uL [facility] 07/17/2024 11:1 9 AM EDT 07/17/2024 11:19 AM EDT us Generic External Data Provider LAB BLOOD ORDERAB LES Final Result [facility] [address] [place] [phone] * (ABNORMAL) Fructosamine (07/17/2024 11:19 AM EDT) Fructosamine 510(A) 205 - 285 umol/L [facility] Comment:THIS TEST WAS PERFOR MED AT:[employer]/[facility] [place] [phone] BENITEZ MD,PHD 07/17/2024 11:1 9 AM EDT 07/17/2024 11:19 AM EDT us Generic External Data Provider LAB BLOOD ORDERAB LES Final Result Performing Organization Address [facility] Co de Phone Number [facility] [address] [place] [phone] * (ABNORMAL) Immunoglobulin G Subclasses Panel (07/17/2024 11:19 AM EDT) IgG Subclass 1 734 382 - 929 mg/dL [facility] IgG Subclass 2 724(A) 241 - 700 mg/dL [facility] IgG Subclass 3 96 22 - 178 mg/dL [facility] IgG Subclass 4 37.1 4 - 86 mg/dL [facility] Immunoglobulin G, Serum 1628 600 - 1640 mg/dL [facility] Comment:THIS TEST WAS PERFOR MED AT:[facility] [place] [phone] HUNTER MD 07/17/2024 11:1 9 AM EDT 07/17/2024 11:19 AM EDT Generic External Data Provider LAB BLOOD ORDERAB LES Final Result Performing Organization Address [facility] Co de Phone Number [facility] [address] [place] [phone] * (ABNORMAL) Sed Rate by Modified Usharen (07/17/2024 11:19 AM EDT) Erythrocyte Sedimentation Rate 93(H) 0 - 20 MM/HR [facility] Comment:Patients with polycy themia and many hemoglobin abnormalitiesmay have depressed sed rates whereas patients with anemiamay have elevated sed rates. 07/17/2024 11:1 9 AM EDT 07/17/2024 11:19 AM EDT Generic External Data Provider LAB BLOOD ORDERAB LES Final Result Performing Organization Address [facility] Co de Phone Number [facility] [address] [place] [phone] * (ABNORMAL) Immunoglobulins, Quantitative, IgA, IgG, IgM (07/17/2024 11:19 AM EDT) IMMUNOGLOBULIN G 1801(A) 600 - 1640 mg/dL [facility] IMMUNOGLOBULIN A 462(A) 47 - 310 mg/dL [facility] Immunoglobulin M 106 50 - 300 mg/dL [facility] Comment:THIS TEST WAS PERFOR MED AT:[facility] [employer] [place] [phone] HUNTER MD 07/17/2024 11:1 9 AM EDT 07/17/2024 11:19 AM EDT us Generic External Data Provider LAB BLOOD ORDERAB LES Final Result Performing Organization Address City/[facility]/ZIP Co de Phone Number [facility] [address] [place] [phone] * Immunoglobulin E (07/17/2024 11:19 AM EDT) Pathologist [facility] Immunoglobulin E 86 <KC=358 kU/L [facility] 07/17/2024 11:1 9 AM EDT 07/17/2024 11:19 AM EDT us Generic External Data Provider LAB BLOOD ORDERAB LES Final Result Performing Organization Address City/[facility]/ZIP Co de Phone Number [facility] [address] [place] [phone] * (ABNORMAL) Glucose, Whole Blood (06/26/2024 10:22 AM EDT) Glucose, Whole Blood 188(H) 60 - 115 mg/dL [facility] Comment:METER #: [id number] Testing performed in the Endocrinology Department [address] , [address], [facility]. 06/26/2024 10:2 2 AM EDT 06/26/2024 10:24 AM EDT us Generic External Data Provider LAB BLOOD ORDERAB LES Final Result Performing Organization Address [facility] Co de Phone Number [facility] [address] [place] [phone] * Hepatitis C Antibody with Reflex to HCV, RNA, Quantitative, Real-Time PCR (09/06/2023 10:47 AM EDT) Hepatitis C Antibody Nonreactive Nonreactive [facility] Comment:Antibodies to HCV no t detected; does not exclude early acuteHCV infection. Blood Venous blood specimen / Unknown 09/06/2023 10:47 AM EDT 09/06/2023 10:47 AM EDT Ally Ferguson MD LAB BLOOD ORDERAB LES Final Result Performing Organization Address [facility] Co de Phone Number [facility] [address] [place] [phone] * HIV-1/2 Antigen and Antibodies, Fourth Generation, with Reflexes (09/06/2023 10:47 AM EDT) HIV AB/AG Nonreactive Nonreactive [facility] Comment:HIV-1 p24 Ag and/or HIV-1/HIV-2 Ab not detected.A test result that is nonreactive does not exclude thepossibility of exposure to or infection with HIV-1 and/orHIV-2. Nonreactive results in this assay for individualswith prior exposure to HIV-1 and/or HIV-2 may be due toantigen and antibody levels that are below the limit ofdetection of this assay.The [employer] HIV Ag/Ab Combo assay result andsupplemental assay results should be interpreted inconjunction with the patient's clinical presentation,history and other laboratory results. If the results areinconsistent with clinical evidence, additional testing issuggested to confirm the result. Blood Venous blood specimen / Unknown 09/06/2023 10:47 AM EDT 09/06/2023 10:47 AM EDT Ally Ferguson MD LAB BLOOD ORDERAB LES Final Result Performing Organization Address [facility]/ZIP Co de Phone Number [facility] [address] [place] [phone] * (ABNORMAL) Hemoglobin A1c (09/06/2023 10:47 AM EDT) Hemoglobin A1c 9.4(H) <6.0 % [facility] Comment:Hemoglobin A1C Refer ence Range Adults: 4.8 - 6.0 % Non diabetic: < 6.0 % Goal: < 7.0 %Additional Action Suggested: > 8.0 %Note: Hemoglobin A1c results are invalid for patients with abnormal amounts of HbF. Blood transfusions may impact the HbA1c concentration in the patient sample. Estimated Average Glucose 223 mg/dL [facility] Comment:eAG = Estimated ave rage glucose which is %A1C expressed asaverage glucose, using the formula of the P9X-UrmjqgkDyvzedk Glucose study (ADAG), Diabetes Care, Vol.31,#8,Nov. 2007 Blood Venous blood specimen / Unknown 09/06/2023 10:47 AM EDT 09/06/2023 10:47 AM EDT us Ally Ferguson MD LAB BLOOD ORDERAB LES Final Result Performing Organization Address [facility] Co de Phone Number [facility] [address] [place] [phone] * (ABNORMAL) Lipid Panel, Standard (09/06/2023 10:47 AM EDT) Triglycerides 256(H) <150 mg/dL [facility] [facility] Comment:Desirable Triglyceri de: less than 150 mg/dLBorderline High Triglyceride 150-199 mg/dLHigh Triglyceride: 200-499 mg/dLVery High Triglyceride: greater than or equal to 5OO mg/dL Cholesterol 203(H) <200 mg/dL [facility] Comment:Desirable Cholestero l: less than 200 mg/dLBorderline High Cholesterol: 200-239 mg/dLHigh Cholesterol: greater than 239 mg/dL LDL Cholesterol Calculated 123(H) <100 mg/dL [facility] Comment:Desirable LDL: less than 100 mg/dLNear Optimal/Above Optimal LDL: 110- 129 mg/dLBorderline High LDL: 130-159 mg/dLHigh LDL: 160-189 mg/dLVery High LDL: greater than or equal to 190 mg/dL HDL Cholesterol 29(L) >40 mg/dL [facility] Comment:Desirable HDL: great er than 40 mg/dL Note: This HDL assay may give artificially low results in patients with liver disease. Blood Venous blood specimen / Unknown 09/06/2023 10:47 AM EDT 09/06/2023 10:47 AM EDT Ally Ferguson MD LAB BLOOD ORDERAB LES Final Result Performing Organization Address City/[facility]/ZIP Co de Phone Number [facility] [address] [place] [phone] * Pap Smear (05/17/2023 12:00 AM EST) Swab [facility] Provider LAB CYTOLOGY ORDERABLES F inal Result Performing Organization Address City/[facility]/ZIP Co de Phone Number [facility] [address] [place] [phone] * HPV mRNA E6/E7 (02/03/2021 9:37 AM EDT) HPV nRNA E6/E7 Not Detected Not Detected [facility] Comment: Methodology: Retail Office Manager-Mediated Amplification This assay detects E6/E7 viral messenger RNA (mRNA) from 14 high-risk HPV types (16,18,31,33,35,39,45,51,52,56,58,59,66,68). ? The analytical performance characteristics of this assay have been determined by [employer]. The modifications have not been cleared or approved by the FDA. This assay has been validated pursuant to the CLIA regulations and is used for clinical purposes. ?? For additional information, please refer to http://education.Insightpool/faq/RDF068l6 (This link if provided for information/ educational purposes only.) HPV nRNA E6/E7 Not Detected Not Detected [facility] Comment: Methodology: Retail Office Manager-Mediated Amplification This assay detects E6/E7 viral messenger RNA (mRNA) from 14 high-risk HPV types (16,18,31,33,35,39,45,51,52,56,58,59,66,68). ? The analytical performance characteristics of this assay have been determined by [employer]. The modifications have not been cleared or approved by the FDA. This assay has been validated pursuant to the CLIA regulations and is used for clinical purposes. ?? For additional information, please refer to http://education.buildabrand.Paymetric/faq/EKN388m3 (This link if provided for information/ educational purposes only.) 02/03/2021 9:37 AM EDT us Jen [facility] LAB BLOOD ORDERABLES Araceli maher Result [facility] [address] from Last 3 Months or Most Recently Relevant to Health Maintenance Insurance [facility] STANDARD MEDICARE Care Teams Fur Sewer Relationship Specialty Start Date End Date Ally Ferreira MD [address] [place] [phone] PCP - General Internal Medicine 07/25/22
--- OUTSIDE RECORDS SUMMARY | 2024-07-24 15:40 | XMS_ITS | Clinical Summary ---
Demographics Address [address] [place] [address] Mobile Phone Home Phone Preferred Language Serbian Marital Status Baptist Affiliation Unknown Race White Ethnic Group Unknown Author Organization [facility] Address [address] [place] [address] Care Team Providers Care Cook Ice Cream Name Role Phone Ally Ferreira Primary Care Provider [phone] Allergies Active Allergy Reactions Criticality Noted Date [...] 1 each 3 3 Active Dexcom G6 Assistant Hvac Mechanic misc Use as directed. E10.65 1 each [...] Type Department Care Team Description 07/10/2024 Telephone [facility] Transplant Department [address] [place] [address] Sabina Velázquez, RN 06/20/2024 Orders Only [facility] Transplant Department [address] [place] [address] Sabina Velázquez, RN ESRD (end stage renal disease) (Primary Dx); Pre-transplant evaluation for kidney transplant 06/20/2024 Telephone [facility] Transplant Department [address] [place] [address] Sabina Velázquez, RN from Last 3 Months Immunizations Immunization Administration Dates Next Due Covid-19 Monovalent Vaccine, Moderna, mRNA, PF 07/09/2020,05/26/2020 FAjF-Djw-AID 05/05/1993,02/22/1993,12/22/1992 Diphtheria, Tetanus Toxoids and Acellular Pertussis [...] Description 02/05/2025 11:00 AM EDT Follow-Up [facility] Renal Transplant [address] [place] [address] Vinicio Harris MD [address] [place] [address] 02/05/2025 11:45 AM EDT Follow-Up [facility] Renal Transplant [address] [place] [address] 02/05/2025 12:30 PM EDT Social Work [facility] Renal Transplant [address] [place] [address] Michelet Swartz Health Maintenance Due Date Last Done Comments HPV and Pap Smear 1990 Medicare AWV 09/09/1992 Ophthalmology Exam 09/09/2001 Alcohol/Substance Use Screening 04/16/2024 Depression Screening and Follow-Up 04/16/2024 Social Drivers of Health Kalie ual Screening 04/16/2024 Basic Metabolic Panel 09/05/2024 09/06/2023 , 11/21/2022, 04/06/2022, Additional history exists Hemoglobin A1C 10/15/2024 07/16/2024, 11/2024, 02/27/2023, Additional history exists Cervical Cancer Screening 05/17/2026 [...] Additional history exists Procedures * Due to [place] state law, this organization might not be [...] to Health Maintenance Results * Due to [place] state law, this organization might not be sharing negative HIV tests. * (ABNORMAL) POCT Glycosylated Hemoglobin (HGB A1C), interfaced (02/27/2023 1:05 PM EST) Hemoglobin A1C, POCT 10.6(H) <=5.6 % 02/27/2023 1:20 PM EST [facility] Comment: A1C Recommendation for Non- Adults with Diabetes: <7.0% ADA 2011 Standards of Medical Care in Diabetes Blood 02/27/2023 1:05 PM EST 02/27/2023 1:20 PM EST us Robert Meredith MD LAB POCT ORDERABLES - DEVICE Final Result [facility] [address] [place] [address], * (ABNORMAL) Basic Metabolic Panel, Outside Lab [...] NON-REACT JOSE RAFAEL 12/01/2020 8:37 AM EDT [employer] Signal To Cut-Off 0.02 <1.00 12/01/2020 8:37 AM EDT [employer] Comment: HCV antibody was non-reactive. There is no laboratory evidence of HCV infection. In most cases, no further action is required. However, if recent HCV exposure is suspected, a test for HCV RNA (test code 80616) is suggested. For additional information please refer to http://Outsell.[employer]/faq/JAO34q9 (This link is being provided for informational/ educational purposes only.) Blood Structure of peripheral vein / Unknown Venipuncture / Unknown 11/30/2020 11:09 AM EDT 11/30/2020 11:33 AM EDT Narrative DILIP GILLETTE - 12/01/2020 8:37 AM EDT [facility] Received Date: Stefan Robbins MD LAB BLOOD ORDERABLES Final Result [facility] [address] [facility] [address], [place] [address], [facility] [address] [facility] [address], [place] [address], from Last 3 Months or Most Recently Relevant to Health Maintenance Insurance * Guarantor: Natali Mtz Account Type Relation to Patient Date of Phone Billing Address Personal/Family Self 1990 [address] [place] [address] MEDICARE [facility] * Guarantor: Natali Mtz Account Type Relation to Patient Date of Phone Billing Address Transplant Self 1990 [address] [place] [address] MEDICARE [facility] Advance Directives Documents on File Type Date Recorded Patient Charge Hand Expl anation Health Care Proxy 01/26/2023 10:42 AM 01/18/23 Health Care Proxy 12/11/2019 8:18 AM 11/30 Care Teams Cook Ice Cream Relationship Specialty Start Date End Date Ally Ferreira [address] [place] [address] PCP - General 02/04/24
--- OUTSIDE RECORDS SUMMARY | 2024-07-24 15:40 | XMS_ITS | Encounter Summary ---
Author Organization [facility] Address [address] [place] [phone] Phone Care Team Providers Care Building Dismantler Name Role Phone Azucena Bradley MD Primary Care Provider [phone] Encounter Details Date Type Department Care Team (Late st Contact Info) Description 07/18/2024 Treatment [facility] [address] [address] Edwina Min MD [address] [address] End stage renal disease; Dependence [...] Dialysis Note - Edwina Min MD - 07/18/2024 12:00 AM EDT BASIC NOTE Patient: Natali Mtz : 1990 Note Author: EDWINA MIN MD Service Date: 07/18/2024 This patient was personally seen for a basic visit as part of routine monthly dialysis care for end stage renal disease. Attending Vacuum Cleaner Repairer: EDWINA MIN Dialysis Location: [facility] Schedule: Shift: 2 ADEQUACY ASSESSMENT Kt/V, [...] stable 07/07/24 stable 07/16/24 no new issues 07/18/24 stable 04/15/24 stable 04/18/24 doing well 12/19/23 [...] stable Signed by: EDWINA MIN MD on 07/18/2024 at 06:16:43 PM Transcribed by: EDWINA MIN MD on 07/18/2024 at 06:16:43 PM documented in this encounter Plan of Treatment Not on file documented as of this encounter Visit Diagnoses Diagnosis End stage renal disease Dependence on renal dialysis documented in this encounter Care Teams Building Dismantler Relationship Specialty Start Date End Date Azucena Bradley MD [address] [place] [address], Floor [address] [place] [address] PCP - General Internal Medicine 01/22/24 documented as of this encounter
--- OUTSIDE RECORDS SUMMARY | 2024-07-24 15:40 | XMS_ITS | Encounter Summary ---
Demographics Address [address] [place] [address] Mobile Phone Home Phone Preferred Language Telugu Marital Status Mosque Affiliation Unknown Race White Ethnic Group Unknown Author Organization [facility] Address [address] [place] [address] Care Team Providers Care Crop And Soil Scientist Name Role Phone Ally Ferreira Primary Care Provider [phone] Encounter Details Date Type Department Care Team (Late st Contact Info) Description 05/07/2023 Orders Only [facility] Nuclear Medicine [address] [place] [address] Shiva Duran MD [address] [place] [address] Social History Tobacco Use Types Packs/Day Years [...] Info) Description 02/05/2025 11:00 AM EDT Follow-Up [facility] Renal Transplant [address] [place] [address] Vinicio Harris MD [address] [place] [address] 02/05/2025 11:45 AM EDT Follow-Up [facility] Renal Transplant [address] [place] [address] 02/05/2025 12:30 PM EDT Social Work [facility] Renal Transplant [address] [place] [address] Michelet Swartz documented as of this encounter Visit Diagnoses Not on filedocumented in this encounter Care Teams Crop And Soil Scientist Relationship Specialty Start Date End Date Ally Ferreira [address] [place] [address] PCP - General 02/04/24 documented as of this encounter
--- OUTSIDE RECORDS SUMMARY | 2024-07-24 15:40 | XMS_ITS | Encounter Summary ---
Author Organization [facility] Address [address] [place] [address] Phone Care Team Providers Care Professor Of Food Biochemistry Name Role Phone Azucena Bradley MD Primary Care Provider [phone] Reason for Visit * Reason Comments Med Refill Encounter Details Date Type Department Care Team (Late st Contact Info) Description 12/25/2021 Refill [facility] [address] [place] [address] Forrest Adamson MD Social History Tobacco [...] on filedocumented in this encounter Care Teams Professor Of Food Biochemistry Relationship Specialty Start Date End Date Azucena Bradley MD [address] [place] [address], [facility] [address] [place] [address] PCP - General Internal Medicine 01/22/24 documented as of this encounter
--- OUTSIDE RECORDS SUMMARY | 2024-07-24 15:40 | XMS_ITS | Encounter Summary ---
Author Organization [employer] Address [address] [place] [address] 7 [place] [address] Care Team Providers Care Academic Affairs Specialist Name Role Phone Ally Ferreira MD Primary Care Pro vider Reason for Visit * Reason Comments Med Refill Encounter Details Date Type Department Care Team (Late Contact Info) Description 09/02/2022 Refill [facility] MEDICINE [address] [place], [place] [phone] Ally Ferreira MD [address] [place] [address] Social History Tobacco Use Types Packs/Day Years [...] 10:15 AM EDT Office Visit [facility] [address] [place] [address] Ally Ferreira MD [address] [place] [address] documented as of this encounter Visit Diagnoses Not on filedocumented in this encounter Additional Health Concerns Assessment Noted Time PHQ-9 Depression Total Score: 0 08/11/19 9:11 AM EDT documented as of this encounter Care Teams Academic Affairs Specialist Relationship Specialty Start Date End Date Ally Ferreira MD [address] [place] [address] PCP - General Internal Medicine 07/25/22 documented as of this encounter
--- OUTSIDE RECORDS SUMMARY | 2024-07-24 15:40 | XMS_ITS | Encounter Summary ---
Author Organization [employer] Address [address] 7[address] [place] [address] Care Team Providers Care Curtain Inspector Name Role Phone Viri Wall Primary Care Provider [phone] Ally Ferreira MD Primary Care Pro vider Reason for Visit * Reason Comments Med Refill Encounter Details Date Type Department Care Team (Late st Contact Info) Description 06/06/2022 Refill [facility] [address] [place], [place] [phone] Name, MD Dain [address] [place] [address] Primary hypertension (Primary Dx) Social History Tobacco [...] 10:15 AM EDT Office Visit [facility] [address] [place] [address] Ally Ferreira MD [address] [place], [place] [phone] documented as of this encounter Visit Diagnoses Diagnosis Primary hypertension- Primary Unspecified essential hypertension documented in this encounter Care Teams Curtain Inspector Relationship Specialty Start Date End Date Viri Wall FNP [address] [place] [address] [phone] PCP - General Family Medicine 06/06/22 07/24/22 Ally Ferreira MD [address] [place] [address] [phone] PCP - General Internal Medicine 07/25/22 documented as of this encounter
--- OUTSIDE RECORDS SUMMARY | 2024-07-24 15:40 | XMS_ITS | Encounter Summary ---
Author Organization [email or web address] Address [address] [facility] 7 [place] [address] Care Team Providers Care Assistant Professor Of Business Name Role Phone Ally Ferreira MD Primary Care Pro vider Reason for Visit * Reason Onset Date Comments Referral 05/01/2023 Encounter Details Date Type Department Care Team ([facility] st Contact Info) Description 05/01/2023 Telephone [facility] MEDICINE [address] [place], [place] [phone] Ally Ferreira MD [address] [place] [address] Referral Social History Tobacco Use Types Packs/Day [...] 10:15 AM EDT Office Visit [facility] [address] [place] [address] Ally Ferreira MD [address] [place] [address] documented as of this encounter Visit Diagnoses Not on filedocumented in this encounter Additional Health Concerns Assessment Noted Time PHQ-9 Depression Total Score: 0 08/11/19 9:11 AM EDT documented as of this encounter Care Teams Assistant Professor Of Business Relationship Specialty Start Date End Date Ally Ferreira MD [address] [place] [address] PCP - General Internal Medicine 07/25/22 documented as of this encounter
--- OUTSIDE RECORDS SUMMARY | 2024-07-24 15:40 | XMS_ITS | Encounter Summary ---
Demographics Address [address] [place] [address] Mobile Phone Home Phone Preferred Language Uzbek Marital Status Evangelical Affiliation Unknown Race White Ethnic Group Unknown Author Organization [facility] Address [address] [place] [address] Care Team Providers Care Miner Helper Name Role Phone Ally Ferreira Primary Care Provider [phone] Encounter Details Date Type Department Care Team (Late st Contact Info) Description 12/02/2019 Orders Only [facility] Nuclear Medicine [address] [place] [address] Shiva Duran MD [address] [place] [address] Social History Tobacco Use Types Packs/Day Years [...] Info) Description 02/05/2025 11:00 AM EDT Follow-Up [facility] Renal Transplant [address] [place] [address] Vinicio Harris MD [address] [place] [address] 02/05/2025 11:45 AM EDT Follow-Up [facility] Renal Transplant [address] [place] [address] 02/05/2025 12:30 PM EDT Social Work [facility] Renal Transplant [address] [place] [address] Michelet Swartz documented as of this encounter Visit Diagnoses Not on filedocumented in this encounter Care Teams Miner Helper Relationship Specialty Start Date End Date Ally Ferreira [address] [place] [phone] PCP - General 02/04/24 documented as of this encounter
--- OUTSIDE RECORDS SUMMARY | 2024-07-24 15:40 | XMS_ITS ---
Demographics Address [address] [place] [address] Mobile Phone Home Phone Preferred Language German Marital Status Judaism Affiliation Unknown Race White Ethnic Group Unknown Author Organization [facility] Address [address] [place] [address] Care Team Providers Care Lab Tester Name Role Phone Ally Ferreira Primary Care Provider [phone] Transplant Episode Kidney Candidate [facility] ([place], [place]) [facility] waitlisted on 12/29/2019 Marked as Active on 03/21/2023 Kidney CoordinatorTadwain Velázquez RN Email: N/A Scores Score Value Updated Exceptions/Reas ons CPRA 0 07/21/2024 EPTS (Calc) 35 07/24/2024 [place] Organ Diagnosis Organ Primary Contributory Kidney Diabetes Mellitus - Type I Infection History Noted Survival Infection Treatment Organism Resolved 12/17/2019 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 Vargas [facility] Senior Sales Operations Manager [phone] [email or web address] Forrest Adamson Referring Physician [phone] N/A Events Pre-Transplant Referred: 06/26/2019 Evaluation began: 12/01/2019 Committee: 12/03/2019 [facility] qualified: 07/15/2018 Center waitlisted: 12/29/2019 Dialysis History Dialysis History Start End Type Comments Center 07/15/2018 In-center Hemodialysis M/W/F SRINI Kaur [facility] D[facility] Information Center Phone Fax Address [facility] [phone] [place] [address] [address] SHANIQUE CONSTANTINO [address]
--- OUTSIDE RECORDS SUMMARY | 2024-07-24 15:40 | XMS_ITS | Encounter Summary ---
Author Organization [employer] Address [address] [facility] 7 [place] [address] Care Team Providers Care Hammer Shop Supervisor Name Role Phone Ally Ferreira MD Primary Care Pro vider Reason for Visit * Reason Onset Date Comments c/b request 01/19/2023 Encounter Details Date Type Department Care Team ([facility] st Contact Info) Description 01/19/2023 Telephone [facility] MEDICINE [address] [place], [place] [phone] Ally Ferreira MD [address] [place] [address] c/b request Social History Tobacco Use Types [...] transplant denial. Patient states it was at [facility] that it was denied, due to vascular problems. * Telephone Encounter - Yasmin Kirshna RN - 01/23/2023 10:59 AM EDT Telephone call to regarding the following message from Dr. Perry : Please can you check with pt denial was from [facility] or from [facility]? No answer. Message was left to return call to the green team nurses. * Telephone Encounter - Jacinta Porras - 01/19/2023 1:45 PM EDT Tc from pt advising PCP pt was denied for kidney transplant. Please contact pt at [phone] documented in this encounter Plan of Treatment Upcoming Encounters Date Type Department Care Team (Late st Contact Info) Description 09/02/2024 10:15 AM EDT Office Visit [facility] [address] [place] [address] Ally Ferreira MD [address] [place] [address] documented as of this encounter Visit Diagnoses Not on filedocumented in this encounter Additional Health Concerns Assessment Noted Time PHQ-9 Depression Total Score: 0 08/11/19 9:11 AM EDT documented as of this encounter Care Teams Hammer Shop Supervisor Relationship Specialty Start Date End Date Ally Ferreira MD [address] [place] [address] PCP - General Internal Medicine 07/25/22 documented as of this encounter
--- OUTSIDE RECORDS SUMMARY | 2024-07-24 15:40 | XMS_ITS | Referral Summary ---
Demographics Address [address] [place] [address] Mobile Phone Home Phone Preferred Language Togolese Marital Status Faith Affiliation Unknown Race White Ethnic Group Unknown Author Organization [facility] Address [address] [place] [address] Care Team Providers Care Projection Engineer Name Role Phone Ally Ferreira Primary Care Provider [phone] Encounters Date Type Department Care Team Description 07/10/2024 Telephone [facility] Transplant Department [address] [place] [phone] Sabina Velázquez RN 06/20/2024 Orders Only [facility] Transplant Department [address] [place] [address] Sabina Velázquez RN ESRD (end stage renal disease) (Primary Dx); Pre-transplant evaluation for kidney transplant 06/20/2024 Telephone [facility] Transplant Department [address] [place] [address] [phone] Sabina Velázquez RN from Last 3 Months [...] 1 each 3 3 Active Dexcom G6 Cad Developer misc Use as directed. E10.65 1 each [...] Covid-19 Monovalent Vaccine, Moderna, mRNA, PF 07/09/2020,05/26/2020 [id number] 05/05/1993,02/22/1993,12/22/1992 Diphtheria, Tetanus Toxoids and Acellular Pertussis [...] Info) Description 02/05/2025 11:00 AM EDT Follow-Up [facility] Renal Transplant [address] [place] [address] Vinicio Harris MD [address] [place] [address] 02/05/2025 11:45 AM EDT Follow-Up [facility] Renal Transplant [address] [place] [address] 02/05/2025 12:30 PM EDT Social Work [facility] Renal Transplant [address] [place] [address] Michelet Swartz Procedures * Due to [place] state law, [...] 10.6(H) <=5.6 % 02/27/2023 1:20 PM EST [facility] Comment: A1C Recommendation for Non- Adults with Diabetes: <7.0% ADA 2011 Standards of Medical Care in Diabetes Blood 02/27/2023 1:05 PM EST 02/27/2023 1:20 PM EST us Robert Meredith MD LAB POCT ORDERABLES - DEVICE Final Result [facility], POC [address] [place] [address], * (ABNORMAL) Basic Metabolic Panel, Outside Lab [...] NON-REACT JOSE RAFAEL 12/01/2020 8:37 AM EDT [facility] Signal To Cut-Off 0.02 <1.00 12/01/2020 8:37 AM EDT [facility] Comment: HCV antibody was non-reactive. There is no laboratory evidence of HCV infection. In most cases, no further action is required. However, if recent HCV exposure is suspected, a test for HCV RNA (test code 24565) is suggested. For additional information please refer to http://education.[employer]/faq/HXQ54g8 (This link is being provided for informational/ educational purposes only.) Blood Structure of peripheral vein / Unknown Venipuncture / Unknown 11/30/2020 11:09 AM EDT 11/30/2020 11:33 AM EDT [facility] 12/01/2020 8:37 AM EDT [facility] Received Date: Stefan Robbins MD LAB BLOOD ORDERABLES Final Result [facility] [address] [facility] [address], [place] [address], [employer] [facility] [address] [facility] [address], [place] [address], from Last 3 Months or Most Recently Relevant to Health Maintenance Insurance * Guarantor: Natali Mtz Account Type Relation to Patient Date of Phone Billing Address Personal/Family Self 1990 [address] [place] [address] MEDICARE [facility] * Guarantor: Natail Mtz Account Type Relation to Patient Date of Phone Billing Address Transplant Self 1990 [address] [place] [address] MEDICARE [facility] Advance Directives Documents on File Type Date Recorded Patient Offset Platemaker Expl anation Health Care Proxy 01/26/2023 10:42 AM 01/18/23 Health Care Proxy 12/11/2019 8:18 AM 11/30 Care Teams Projection Engineer Relationship Specialty Start Date End Date Ally Ferreira [address] [place] [id number] PCP - General 02/04/24
--- OUTSIDE RECORDS SUMMARY | 2024-07-24 15:40 | XMS_ITS | Encounter Summary ---
Author Organization [employer] Address [address] [place] [address] Care Team Providers Care Curve Cleaner Name Role Phone Ally Ferreira MD Primary Care Pro vider Reason for Visit * Reason Comments Med Refill Encounter Details Date Type Department Care Team ([facility] st Contact Info) Description 05/01/2023 Refill [facility] [address] [place], [place] [phone] Jen Lozoya, [facility] [address] [place] [address] Social History Tobacco Use Types Packs/Day Years [...] Description 09/02/2024 10:15 AM EDT Office Visit [facility] [address] [place] [address] Ally Ferreira MD [address] [place] [phone] documented as of this encounter Visit Diagnoses Not on filedocumented in this encounter Additional Health Concerns Assessment Noted Time PHQ-9 Depression Total Score: 0 08/11/19 9:11 AM EDT documented as of this encounter Care Teams Curve Cleaner Relationship Specialty Start Date End Date Ally Ferreira MD [address] [place] [id number] PCP - General Internal Medicine 07/25/22 documented as of this encounter
--- OUTSIDE RECORDS SUMMARY | 2024-07-24 15:40 | XMS_ITS | Encounter Summary ---
Demographics Address [address] [place] [address] Mobile Phone Home Phone Preferred Language Romanian Marital Status Holiness Affiliation Unknown Race White Ethnic Group Unknown Author Organization [facility] Address [address] [place] [address] Care Team Providers Care President [place] Name Role Phone Ally Ferreira Primary Care Provider [phone] Encounter Details Date Type Department Care Team (Late st Contact Info) Description 02/22/2024 Orders Only [facility] Nuclear Medicine [address] [place] [address] [phone] Victor Manuel Corado MD PhD [address] [place], [place] [phone] Social History Tobacco Use Types Packs/Day Years [...] Info) Description 02/05/2025 11:00 AM EDT Follow-Up [facility] Renal Transplant [address] [place], [place] [phone] Vinicio Harris MD [address] [place], [place] [phone] 02/05/2025 11:45 AM EDT Follow-Up [facility] Renal Transplant [address] [place] [address] 02/05/2025 12:30 PM EDT Social Work [facility] Renal Transplant [address] [place] [address] Michelet Swartz documented as of this encounter Visit Diagnoses Not on filedocumented in this encounter Care Teams President [place] Relationship Specialty Start Date End Date Ally Ferreira [address] [place] [phone] PCP - General 02/04/24 documented as of this encounter
--- OUTSIDE RECORDS SUMMARY | 2024-07-24 15:40 | XMS_ITS | Encounter Summary ---
Author Organization [facility] Address [address] [place] [address] Phone Care Team Providers Care Submarine Operator Name Role Phone Azucena Bradley MD Primary Care Provider [phone] Reason for Visit * Reason Comments Med Refill Encounter Details Date Type Department Care Team (Late st Contact Info) Description 12/24/2021 Refill [facility] [address] [place] [address] Forrest Adamson MD Social History [...] on filedocumented in this encounter Care Teams Submarine Operator Relationship Specialty Start Date End Date Azucena Bradley MD [address] [place] [address], [facility] [address] [place] [address] PCP - General Internal Medicine 01/22/24 documented as of this encounter
--- OUTSIDE RECORDS SUMMARY | 2024-07-24 15:40 | XMS_ITS | Encounter Summary ---
Author Organization [employer] Address [address] [place] [address] [facility] [place] [place] [address] Care Team Providers Care Glue Specialty Supervisor Name Role Phone Ally Ferreira MD Primary Care Pro vider Reason for Visit * Reason Comments Med Change Request Encounter Details Date Type Department Care Team (Late Contact Info) Description 01/13/2023 Refill [facility] MEDICINE [address] [place] [address] [phone] Ally Ferreira MD [address] [place] [address] [phone] Social History Tobacco Use Types Packs/Day Years [...] Description 09/02/2024 10:15 AM EDT Office Visit [facility] MEDICINE [address] [place] [address] [phone] Ally Ferreira MD [address] [place], [place] [phone] documented as of this encounter Visit Diagnoses Not on filedocumented in this encounter Additional Health Concerns Assessment Noted Time PHQ-9 Depression Total Score: 0 08/11/19 9:11 AM EDT documented as of this encounter Care Teams Glue Specialty Supervisor Relationship Specialty Start Date End Date Ally Ferreira MD [address] [place] [address] PCP - General Internal Medicine 07/25/22 documented as of this encounter
--- OUTSIDE RECORDS SUMMARY | 2024-07-24 15:40 | XMS_ITS | Encounter Summary ---
Author Organization [employer] Address [address] [facility] [address] [facility] [address] [facility] [address] [address] [place] [address] Care Team Providers Care Color Paste Mixer Name Role Phone Viri Wall Primary Care Provider [phone] Ally Ferreira MD Primary Care Pro vider Reason for Visit * Reason Comments Med Refill Encounter Details Date Type Department Care Team (Late st Contact Info) Description 06/06/2022 Refill [facility] [address] [place] [address] Adelaide Cano DO [address] [place] [address] Social History Tobacco Use Types Packs/Day Years [...] AM EST T/C placed to pt via [facility] Carlos #[id number]. 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 Advised will update provider. documented in this encounter Plan of Treatment Upcoming Encounters Date Type Department Care Team (Late st Contact Info) Description 09/02/2024 10:15 AM EDT Office Visit [facility] [address] [place] [address] Ally Ferreira MD [address] [place] [address] [phone] documented as of this encounter Visit Diagnoses Not on filedocumented in this encounter Care Teams Color Paste Mixer Relationship Specialty Start Date End Date Viri Wall FNP [address] [place] [address] [phone] PCP - General Family Medicine 06/06/22 07/24/22 Ally Ferreira MD [address] [place] [address] [phone] PCP - General Internal Medicine 07/25/22 documented as of this encounter
--- OUTSIDE RECORDS SUMMARY | 2024-07-24 15:40 | XMS_ITS | Encounter Summary ---
Author Organization [employer] Address [address] [place] [address] Care Team Providers Care Rn Icu Name Role Phone Ally Ferreira MD Primary Care Pro vider Reason for Visit * Reason Comments Med Refill Encounter Details Date Type Department Care Team ([facility] Contact Info) Description 09/02/[address] [facility] [address] [place] [address] Blair Lopez AGNP Hypertension, unspecified [...] Upcoming Encounters Date Type Department Care Team ([facility] Contact Info) Description 09/02/2024 10:15 AM EDT Office Visit [facility] [address] [place] [address] Ally Ferreira MD [address] [place] [address] documented as of this encounter Visit Diagnoses Diagnosis Hypertension, unspecified type documented in this encounter Additional Health Concerns Assessment Noted Time PHQ-9 Depression Total Score: 0 08/11/19 9:11 AM EDT documented as of this encounter Care Teams Rn Icu Relationship Specialty Start Date End Date Ally Ferreira MD [address] [place] [address] PCP - General Internal Medicine 07/25/22 documented as of this encounter
--- OUTSIDE RECORDS SUMMARY | 2024-07-24 15:40 | XMS_ITS ---
Author Organization [facility] Address [address] [place] [address] Care Team Providers Care Qa Consultant Name Role Phone Dory Martin Unavailable [phone] Encounters Encounter Location Date Provider Diagnosis [facility] [address] [place] [address] 02/13/2023 Dory Martin Plan Of Treatment No Information Progress Notes * Mansoor MTZlDOB: 2 (33 yo F)Acc No.[id number]:02/13/2023 Progress Notes Patient:?Natali MTZ Provider:?Dory Martin DPM :1990???Age:32 Y???Sex:Female D ate:02/13/2023 [facility] Subjective: * Chief Complaints: * ??? * Medical History:? Objective: * Vitals:? Assessment: Plan: * Treatment: * Images: * The named appointment provid er may or may not be the originator of this progress note, and it is not deemed complete until electronically signed by the appointment provider. Sign off status: Pending * Provider:?Dory Martin DPM Date:? Generated for Enoc mckinney/Siri/Erickitting on:?07/24/2024 03:40 PM EDT
--- OUTSIDE RECORDS SUMMARY | 2024-07-24 15:40 | XMS_ITS | Encounter Summary ---
Demographics Address [address] [place] [address] Mobile Phone Home Phone Preferred Language Portuguese Marital Status Sabianism Affiliation Unknown Race White Ethnic Group Unknown Author Organization [facility] Address [address] [place] [address] Care Team Providers Care Plant Associate Name Role Phone Ally Ferreira Primary Care Provider [phone] Encounter Details Date Type Department Care Team (Late st Contact Info) Description 01/11/2021 Orders Only [facility] Nuclear Medicine [address] [place] [address] Shiva Duran MD [address] [place] [address] Social History Tobacco Use Types Packs/Day Years [...] Info) Description 02/05/2025 11:00 AM EDT Follow-Up [facility] Renal Transplant [address] [place] [address] Vinicio Harris MD [address] [place] [address] 02/05/2025 11:45 AM EDT Follow-Up [facility] Renal Transplant [address] [place] [address] 02/05/2025 12:30 PM EDT Social Work [facility] Renal Transplant [address] [place] [address] Michelet Swartz documented as of this encounter Visit Diagnoses Not on filedocumented in this encounter Care Teams Plant Associate Relationship Specialty Start Date End Date Ally Ferreira [address] [place] [phone] PCP - General 02/04/24 documented as of this encounter
--- OUTSIDE RECORDS SUMMARY | 2024-07-24 15:40 | XMS_ITS | Encounter Summary ---
Author Organization [facility] Address [address] [place] [address] Phone Care Team Providers Care Vocational Childcare Teacher Name Role Phone Azucena Bradley MD Primary Care Provider [phone] Reason for Visit * Reason Comments Med Refill Encounter Details Date Type Department Care Team (Late st Contact Info) Description 06/14/2021 Refill [facility] [address] [place] [address] Forrest Adamson MD Social History Tobacco [...] on filedocumented in this encounter Care Teams Vocational Childcare Teacher Relationship Specialty Start Date End Date Azucena Bradley MD [address] [place] [address], [facility] [address] [place] [address] PCP - General Internal Medicine 01/22/24 documented as of this encounter
--- OUTSIDE RECORDS SUMMARY | 2024-07-24 15:41 | XMS_ITS | Clinical Summary ---
Author Organization [facility] Address [address] [place] [phone] Phone Care Team Providers Care Flower Shop Manager Name Role Phone Azucena Bradley MD Primary Care Provider + [phone] Medications losartan (COZAAR) 50 MG tablet TAKE [...] Encounters Date Type Department Care Team Description 07/18/2024 Treatment [facility] [address] [place] [phone] Atul Burton MD End stage renal disease; Dependence on renal dialysis 07/16/2024 Treatment [facility] [address] [phone] Atul Burton MD End stage renal disease; Dependence on renal dialysis 07/07/2024 Treatment [facility] [address] [phone] Atul Burton MD End stage renal disease; Dependence on renal dialysis 07/02/2024 Treatment [facility] [address] [phone] Atul Burton MD End stage renal disease; Dependence on renal dialysis 06/30/2024 Treatment [facility] [address] [address] Atul Burton MD End stage renal disease; Dependence on renal dialysis 06/18/2024 Treatment [facility] [address] [phone] Atul Burton MD End stage renal disease; Dependence on renal dialysis 06/13/2024 Treatment [facility] [address] [address] Atul Burton MD End stage renal disease; Dependence on renal dialysis 05/28/2024 Treatment [facility] [address] [phone] Atul Burton MD 05/26/2024 Treatment [facility] [address] [phone] Atul Burton MD 05/21/2024 Orders Only [facility] [address] [phone] Atul Burton MD 05/19/2024 Treatment [facility] [address] [phone] Atul Burton MD 05/16/2024 Treatment [facility] [address] [address] Atul Burton MD 05/14/2024 Treatment [facility] [address] [address] Atul Burton MD 05/07/2024 Treatment [facility] [address] [place] [address] Atul Burton MD from Last 3 Months [...] Visual Foot Exam 05/17/2020 Diabetes: Hemoglobin A1C 10/15/2024 04/ 025, 04/23/2024, 09/06/2023, Additional history exists Influenza Vaccine (Season Ended) 2024 01/11/2023, 01/20/2015, 01/30/2013, Additional history exists Pneumococcal Vaccine: Peds ( 0 to 5 Years) and At-Risk Patients (6 to 49 Years) Completed 04/26/2023, 08/21/2018, 08/02/2018, Additional history exists Procedures Procedure Name Priority Date/Time Associated Diagnosis Comments PROTEIN, TOTAL, SERUM Routine 07/16/2024 3:00 AM EDT TRANSFERRIN SATURATION Routine 3:00 AM EDT MAGNESIUM Routine 07/16/2024 3:00 AM EDT ELECTROLYTE PANEL Routine 07/16/2024 3:0 0 AM EDT LIPID PANEL Routine 07/16/2024 3:00 AM EDT LIH (HC) Routine 07/16/2024 3:00 AM EDT CREATININE, SERUM Routine 07/16/2024 3:0 0 AM EDT LACTATE DEHYDROGENASE Routine 07/16/2024 3:00 AM EDT GLUCOSE, RANDOM Routine 07/16/2024 3:00 AM EDT BILIRUBIN, TOTAL Routine 07/16/2024 3:00 AM EDT AST Routine 07/16/2024 3:00 AM EDT ALKALINE PHOSPHATASE Routine 07/16/2024 3:00 AM EDT ALT Routine 07/16/2024 3:00 AM EDT CALCIUM PHOSPHORUS PRODUCT, ADJUSTED (HC) Routine 07/16/2024 3:00 AM EDT FERRITIN Routine 07/16/2024 3:00 AM EDT PTH, INTACT Routine 07/16/2024 3:00 AM EDT HEMOGLOBIN A1C Routine 07/16/2024 3:00 AM EDT CBC AND DIFFERENTIAL Routine 07/16/2024 3:00 AM EDT KT/V NATURAL LOG, URR (HC) Routine 07/16/2024 3:00 AM EDT HEMOGLOBIN Routine 07/11/2024 3:00 AM EDT HEMOGLOBIN [...] EST HEMOGLOBIN Routine 05/07/2024 3:00 AM EST from Last 3 Months Results * LIH (07/16/2024 3:00 AM EDT) Only the most recent of6 resultswithin the time period is included. Lipemia Normal Normal [facility] Icterus Normal Normal [facility] Hemolysis Normal Normal [facility] 07/16/2024 3:00 AM EDT 07/18/2024 5:47 PM EDT us Atul Burton MD LAB [id number] SOLICITED RESULTS Final Result [facility] [address] [place] [address] * (ABNORMAL) Kt/V Natural Log, URR (07/16/2024 3:00 AM EDT) Only the most recent of3 resultswithin the time period is included. Treatment Time 226 min [facility] Pre-Weight, lb 71.8 kg [facility] Post-Weight, lb 69.2 kg [facility] Ultrafiltration Rate 10 <=13 mL/kg/hr [facility] Comment: Recommend achieving Ultrafiltration Rate (UFR) <=10 mL/kg/hr References: Naomy BRITO et al. Kidney Int. 2011 [place]; 79(2):250-257 BUN 70(H) 7 - 25 mg/dL [facility] BUN Post Dialysis 16 7 - 25 mg/dL [facility] UREA REDUCTION RATIO (%) 77 >=65 % [facility] Kt/V Natural Log 1.74 >=1.2 [facility] 07/16/2024 3:00 AM EDT 07/18/2024 4:57 PM EDT Atul Burton MD LAB [id number] SOLICITED RESULTS Final Result Performing Organization Address City/[facility]/ZIP Co de Phone Number [facility] [address] [place] [address] * (ABNORMAL) Calcium Phosphorus Product, Adjusted (07/16/2024 3:00 AM EDT) Only the most recent of3 resultswithin the time period is included. Albumin 4.4 3.6 - 5.4 g/dL [facility] Calcium 9.5 8.6 - 10.3 mg/dL [facility] Phosphorus, Serum 10.6(H) 2.5 - 5.0 mg/dL [facility] Ca*PO4 100.7(A) <55.0 mg2/dL2 [facility] Calcium, Adjusted Total 9.5 8.6 - 10.3 mg/dL [facility] CA*PO4 CORRCTD 100.7(A) <55.0 mg2/dL2 [facility] 07/16/2024 3:00 AM EDT 07/18/2024 5:47 PM EDT Atul Burton MD LAB [id number] SOLICITED RESULTS Final Result Performing Organization Address [facility]/ZIP Co de Phone Number [facility] [address] [place] [address] * (ABNORMAL) TSAT (07/16/2024 3:00 AM EDT) Only the most recent of3 resultswithin the time period is included. Iron 49(L) 50 - 170 ug/dL [facility] Transferrin 126(L) 250 - 380 mg/dL [facility] TIBC 176(L) 211 - 406 ug/dL [facility] Iron Saturation (TSat) 28 22 - 52 % [facility] 07/16/2024 3:00 AM EDT 07/18/2024 5:47 PM EDT Atul Burton MD LAB BLOOD ORDERABLES Final Re sult [facility] [address] [place] [address] * (ABNORMAL) CBC and Differential (07/16/2024 3:00 AM EDT) Only the most recent of3 resultswithin the time period is included. DIFFERENTIAL MANUAL, 2 Not Indicated [facility] White Blood Cells 14.2(H) 4.0 - 10.0 K/uL [facility] RBC 3.23(L) 3.93 - 5.22 M/uL [facility] Hgb 9.8(L) 11.2 - 15.7 g/dL [facility] Hemoglobin x 3 29.4(L) 33.6 - 47.1 g/dL [facility] Hematocrit 31.4(L) 34.1 - 44.9 % [facility] MCV 97.2(H) 79.4 - 94.8 fL [facility] MCH 30.3 25.6 - 32.2 pg [facility] MCHC 31.2(L) 32.2 - 35.5 g/dL [facility] Platelets 294 182 - 369 K/uL [facility] RDW 16.1(H) 11.7 - 14.4 % [facility] Neutrophils Relative 70.7 34.0 - 71.1 % [facility] Lymphocytes Relative 17.0(L) 19.3 - 51.7 % [facility] Monocytes 7.5 4.7 - 12.5 % [facility] Eosinophils Relative 3.5 0.7 - 5.8 % [facility] Basophils Relative 0.7 0.1 - 1.2 % [facility] Immature Granulocytes 0.6 0.0 - 1.0 % [facility] 07/16/2024 3:00 AM EDT 07/18/2024 5:43 PM EDT Atul Burton MD LAB BLOOD ORDERABLES Final Re sult Performing Organization Address [facility] Co de Phone Number [facility] [address] [place] [address] * ALT (07/16/2024 3:00 AM EDT) Only the most recent of3 resultswithin the time period is included. ALT (SGPT) 14 10 - 49 U/L [facility] 07/16/2024 3:00 AM EDT 07/18/2024 5:47 PM EDT Atul Burton MD LAB BLOOD ORDERABLES Final Re sult Performing Organization Address [facility] de Phone Number [facility] [address] [place] [address] * AST (07/16/2024 3:00 AM EDT) Only the most recent of3 resultswithin the time period is included. AST (SGOT) 17 <34 U/L [facility] 07/16/2024 3:00 AM EDT 07/18/2024 5:47 PM EDT Atul Burton MD LAB BLOOD ORDERABLES Final Re sult Performing Organization Address [facility] de Phone Number [facility] [address] [place] [address] * Protein, total (07/16/2024 3:00 AM EDT) Only the most recent of3 resultswithin the time period is included. Total Protein 7.9 6.4 - 8.9 g/dL [facility] 07/16/2024 3:00 AM EDT 07/18/2024 5:47 PM EDT us Atul Burton MD LAB BLOOD ORDERABLES Final Re sult Performing Organization Address [facility] Co de Phone Number [facility] [address] [place] [address] * (ABNORMAL) Alkaline phosphatase (07/16/2024 3:00 AM EDT) Only the most recent of3 resultswithin the time period is included. Alkaline Phosphatase 125(H) 46 - 116 U/L [facility] 07/16/2024 3:00 AM EDT 07/18/2024 5:47 PM EDT Atul Burton MD LAB BLOOD ORDERABLES Final Re sult Performing Organization Address [facility] Co de Phone Number [facility] [address] [place] [address] * PTH, Intact (07/16/2024 3:00 AM EDT) Pathologist [facility] PTH, Intact 364 160 - 721 pg/mL [facility] Comment: Suggested (KDIGO) ESRD maintenance range is two to nine times the upper normal limit (80.1 pg/mL) for the laboratory. 07/16/2024 3:00 AM EDT 07/18/2024 5:47 PM EDT Atul Burton MD LAB BLOOD ORDERABLES Final Re sult Performing Organization Address [facility] de Phone Number [facility] [address] [place] [address] * Magnesium (07/16/2024 3:00 AM EDT) Only the most recent of3 resultswithin the time period is included. Pathologist [facility] Magnesium 2.6 1.9 - 2.7 mg/dL [facility] 07/16/2024 3:00 AM EDT 07/18/2024 5:47 PM EDT Atul Burton MD LAB BLOOD ORDERABLES Final Re sult Performing Organization Address [facility] de Phone Number [facility] [address] [place] [address] * (ABNORMAL) Lactate dehydrogenase (07/16/2024 3:00 AM EDT) Only the most recent of3 resultswithin the time period is included. LDH 417(H) 120 - 246 U/L [facility] 07/16/2024 3:00 AM EDT 07/18/2024 5:47 PM EDT Atul Burton MD LAB BLOOD ORDERABLES Final Re sult Performing Organization Address [facility] de Phone Number [facility] [address] [place] [address] * (ABNORMAL) Hemoglobin A1c (07/16/2024 3:00 AM EDT) Hemoglobin A1C 7.4(H) <5.7 % [facility] Comment: Methodology: Enzymatic HbA1c (NGSP %) ?Suggested Diagnosis >6.4% ? Diabetic 5.7-6.4% ?Pre-Diabetic <5.7% ? Non-Diabetic Diabetic Glucose Control Evaluation: Therapeutic action suggested at >8.0% ADA recommends a glycemic goal of <7.0% 07/16/2024 3:00 AM EDT 07/18/2024 5:43 PM EDT Atul Burton MD LAB BLOOD ORDERABLES Final Re sult Performing Organization Address [facility] de Phone Number [facility] [address] [place] [address] * (ABNORMAL) Glucose, random (07/16/2024 3:00 AM EDT) Only the most recent of3 resultswithin the time period is included. Glucose 138(H) 74 - 109 mg/dL [facility] 07/16/2024 3:00 AM EDT 07/18/2024 5:47 PM EDT Atul Burton MD LAB BLOOD ORDERABLES Final Re sult Performing Organization Address [facility] de Phone Number [facility] [address] [place] [address] * (ABNORMAL) Ferritin (07/16/2024 3:00 AM EDT) Only the most recent of3 resultswithin the time period is included. Ferritin 1,075(H) 10 - 291 ng/mL [facility] 07/16/2024 3:00 AM EDT 07/18/2024 5:47 PM EDT Atul Burton MD LAB BLOOD ORDERABLES Final Re sult Performing Organization Address [facility] Co de Phone Number [facility] [address] [place] [address] * (ABNORMAL) Creatinine, serum (07/16/2024 3:00 AM EDT) Only the most recent of3 resultswithin the time period is included. Creatinine 11.13(H) 0.55 - 1.02 mg/dL [facility] 07/16/2024 3:00 AM EDT 07/18/2024 5:47 PM EDT Atul Burton MD LAB BLOOD ORDERABLES Final Re sult Performing Organization Address [facility] Co de Phone Number [facility] [address] [place] [address] * (ABNORMAL) Bilirubin, total (07/16/2024 3:00 AM EDT) Only the most recent of3 resultswithin the time period is included. Total Bilirubin <0.2(L) 0.3 - 1.2 mg/dL [facility] 07/16/2024 3:00 AM EDT 07/18/2024 5:47 PM EDT Atul Burton MD LAB BLOOD ORDERABLES Final Re sult Performing Organization Address [facility] Co de Phone Number [facility] [address] [place] [address] * (ABNORMAL) Lipid panel (07/16/2024 3:00 AM EDT) Cholesterol 168 <200 mg/dL [facility] Comment: Optimal: ?<200 Borderline: ? 200-239 Higher Risk: ?>239 Triglycerides 212(A) <150 mg/dL [facility] Comment: Optimal: ?<150 Borderline High: ??150-199 High: ? 200-499 Very High: ?>499 HDL 29(A) >59 mg/dL [facility] Comment: Desirable: ?>59 Higher Risk: ?<40 LDL-Calc 97 <100 mg/dL [facility] Comment: Optimal: ?<100 Above Optimal: ?100-129 Borderline High: ??130-159 High: ? 160-189 Very High: ?>189 VLDL Cholesterol Moody 42(A) <30 mg/dL [facility] Comment: Optimal: ?<30 Borderline High: ??30-39 High: ? 40-99 Very High: ?>99 Chol/HDL Ratio 5.8(A) <3.3 [facility] Comment: Optimal: ?<3.3 Higher Risk: ?>6.2 07/16/2024 3:00 AM EDT 07/18/2024 5:47 PM EDT us Atul Burton MD LAB BLOOD ORDERABLES Final Re sult [facility] [address] [place] [address] * (ABNORMAL) Electrolyte panel (07/16/2024 3:00 AM EDT) Only the most recent of3 resultswithin the time period is included. Sodium 134(L) 136 - 145 mEq/L [facility] Potassium 5.2(H) 3.4 - 5.0 mEq/L [facility] Chloride 96(L) 98 - 107 mEq/L [facility] Bicarbonate (CO2) 17(L) 21 - 31 mEq/L [facility] Anion Gap 21(H) 3 - 14 mEq/L [facility] 07/16/2024 3:00 AM EDT 07/18/2024 5:47 PM EDT Atul Burton MD LAB BLOOD ORDERABLES Final Re sult Performing Organization Address [facility] Co de Phone Number [facility] [address] [place] [address] * (ABNORMAL) Hemoglobin (07/11/2024 3:00 AM EDT) Only the most recent of5 resultswithin the time period is included. Hgb 9.5(L) 11.2 - 15.7 g/dL [facility] Hemoglobin x 3 28.5(L) 33.6 - 47.1 g/dL [facility] 07/11/2024 3:00 AM EDT 07/12/2024 1:26 PM EDT Atul Burton MD LAB BLOOD ORDERABLES Final Re sult Performing Organization Address [facility] Co de Phone Number [facility] [address] [place] [address] * (ABNORMAL) Phosphorus (06/30/2024 3:00 AM EDT) Only the most recent of3 resultswithin the time period is included. Phosphorus, Serum 10.1(H) 2.5 - 5.0 mg/dL [facility] 06/30/2024 3:00 AM EDT 07/01/2024 12:12 PM EDT Atul Burton MD LAB BLOOD ORDERABLES Final Re sult Performing Organization Address [facility] Co de Phone Number [facility] [address] [place] [address] from Last 3 Months Insurance [place] / Payer (Ef fective 2020-) Name:Mansoor Mtzl L Relation to Subscriber:Self Name:Mansoor Mtzl L Payer ID:Not on file Group ID:Not on file Type:Not on file Address: [address] [place] Plan / Payer (Ef fective 2020-) Name:Mansoor Mtzl L Relation to Subscriber:Self Name:Mansoor Mtzl L Payer ID:Not on file Group ID:Not on file Type:Not on file Address: [address] [place] [address] Care Teams Flower Shop Manager Relationship Specialty Start Date End Date Azucena Bradley MD [address] [place] [address], Floor [address] [place] [address] PCP - General Internal Medicine 01/22/24
== END 2024-07-24 12:59 | disposition home or self-care (01) ==
LOC: HO.XRAY 12:58
PROVIDERS: PCP Student in an Organized Health Care Education/Training Program; Visit Provider Internal Medicine
DX: L97.512 Non-pressure chronic ulcer of other part of right foot with fat layer exposed (principal)
CPT/HCPCS: 73630

== ENCOUNTER → 2024-07-24 13:06 | Outpatient (BNV) | payer MEDICARE, MEDICAID, SELFPAY | PROVIDERS: PCP Student in an Organized Health Care Education/Training Program; Visit Provider Radiology Diagnostic Radiology | DX: L97.519 Non-pressure chronic ulcer of other part of right foot with unspecified severity (principal); E11.9 Type 2 diabetes mellitus without complications | CPT/HCPCS: 73630 ==

== ENCOUNTER 2024-07-25 15:46 | Outpatient (AMB) | payer MEDICARE, MEDICAID, SELFPAY ==
--- OUTSIDE RECORDS SUMMARY | 2024-07-25 15:49 | XMS_ITS | Patient Health Record ---
Author Organization [facility] Address [address] [place] [address] Care Team Providers Care Property Underwriter Name Role Phone Dory Martin Unavailable [phone] Reason For Referral No Information Plan Of Treatment No Information Insurance Providers Payer Name Payer Address Payer Phone Subscriber Number Group Number Insured Name Patient Relationship to Insured Coverage Start Date Coverage End Date Medicare National [employer] [address] [place] [address] Natali Mtz Self - patient is the insured
--- OUTSIDE RECORDS SUMMARY | 2024-07-25 15:49 | XMS_ITS | Encounter Summary ---
Author Organization [facility] Address [address] [facility] [address] [place] [address] Phone Care Team Providers Care Liquor Department Manager Name Role Phone Azucena Bradley MD Primary Care Provider [phone] Reason for Visit * Reason Comments Med Refill Encounter Details Date Type Department Care Team (Late st Contact Info) Description 09/02/2023 Refill [facility] [address] [place] [phone] Paul Brothers MD [address] [facility] [address] [place] [phone] Social History Tobacco Use Types Packs/Day Years [...] on filedocumented in this encounter Care Teams Liquor Department Manager Relationship Specialty Start Date End Date Azucena Bradley MD [address] [place] [address], Floor [address] [place] [address] PCP - General Internal Medicine 01/22/24 documented as of this encounter
--- OUTSIDE RECORDS SUMMARY | 2024-07-25 15:49 | XMS_ITS | Referral Summary ---
Demographics Address [address] [place] [address] Mobile Phone Home Phone Preferred Language Tanzanian Marital Status Hindu Affiliation Unknown Race White Ethnic Group Unknown Author Organization [facility] Address [address] [place] [address] Care Team Providers Care Medical Radiation Dosimetrist Name Role Phone Ally Ferreira Primary Care Provider [phone] Encounters Date Type Department Care Team Description 07/10/2024 Telephone [facility] Transplant Department [address] [place] [phone] Sabina Velázquez RN 06/20/2024 Orders Only [facility] Transplant Department [address] [place] [address] Sabina Velázquez RN ESRD (end stage renal disease) (Primary Dx); Pre-transplant evaluation for kidney transplant 06/20/2024 Telephone [facility] Transplant Department [address] [place] [phone] Sabina Velázquez RN from Last 3 Months [...] 1 each 3 3 Active Dexcom G6 Sausage Mixer misc Use as directed. E10.65 1 each [...] Covid-19 Monovalent Vaccine, Moderna, mRNA, PF 07/09/2020,05/26/2020 [id number] 05/05/1993,02/22/1993,12/22/1992 Diphtheria, Tetanus Toxoids and Acellular Pertussis [...] Info) Description 02/05/2025 11:00 AM EDT Follow-Up [facility] Renal Transplant [address] [place] [address] Vinicio Harris MD [address] [place] [address] 02/05/2025 11:45 AM EDT Follow-Up [facility] Renal Transplant [address] [place] [address] 02/05/2025 12:30 PM EDT Social Work [facility] Transplant [address] [place] [address] Michelet Swartz Procedures * Due to [place] state law, this organization might not be [...] to Health Maintenance Results * Due to [place] state law, this organization might not be sharing negative HIV tests. * (ABNORMAL) POCT Glycosylated Hemoglobin (HGB A1C), interfaced (02/27/2023 1:05 PM EST) Hemoglobin A1C, POCT 10.6(H) <=5.6 % 02/27/2023 1:20 PM EST [facility] Comment: A1C Recommendation for Non- Adults with Diabetes: <7.0% ADA 2011 Standards of Medical Care in Diabetes Blood 02/27/2023 1:05 PM EST 02/27/2023 1:20 PM EST us Robert Meredith MD LAB POCT ORDERABLES - DEVICE Final Result [facility] [address] [place] [address], * (ABNORMAL) Basic Metabolic Panel, Outside Lab [...] NON-REACT JOSE RAFAEL 12/01/2020 8:37 AM EDT [facility] Signal To Cut-Off 0.02 <1.00 12/01/2020 8:37 AM EDT Front Flip [facility] Comment: HCV antibody was non-reactive. There is no laboratory evidence of HCV infection. In most cases, no further action is required. However, if recent HCV exposure is suspected, a test for HCV RNA (test code 09760) is suggested. For additional information please refer to http://education.[employer]/faq/ERP42y2 (This link is being provided for informational/ educational purposes only.) Blood Structure of peripheral vein / Unknown Venipuncture / Unknown 11/30/2020 11:09 AM EDT 11/30/2020 11:33 AM EDT [facility] 12/01/2020 8:37 AM EDT [facility] Received Date: Stefan Robbins MD LAB BLOOD ORDERABLES Final Result [facility] [address] [facility] [address], [place] [address], [facility] [address] [facility] [address], [place] [address], from Last 3 Months or Most Recently Relevant to Health Maintenance Insurance * Guarantor: Natali Mtz Account Type Relation to Patient Date of Phone Billing Address Personal/Family Self 1990 [address] [place] [address] MEDICARE [facility] * Guarantor: Natali Mtz Account Type Relation to Patient Date of Phone Billing Address Transplant Self 1990 [address] [place] [address] MEDICARE [facility] Advance Directives Documents on File Type Date Recorded Patient Leather Worker Expl anation Health Care Proxy 01/26/2023 10:42 AM 01/18/23 Health Care Proxy 12/11/2019 8:18 AM 11/30 Care Teams Medical Radiation Dosimetrist Relationship Specialty Start Date End Date Ally Ferreira [address] [place] [address] PCP - General 02/04/24
--- OUTSIDE RECORDS SUMMARY | 2024-07-25 15:49 | XMS_ITS | Encounter Summary ---
Author Organization [facility] Address [address] [place] [address] Care Team Providers Care Electronic System Engineer Name Role Phone Ally Ferreira Primary Care Provider [phone] Encounter Details Date Type Department Care Team (Late st Contact Info) Description 02/09/2021 Orders Only [facility] Nuclear Medicine [address] [place] [address] Shiva Duran MD [address] [place] [address] Social History Tobacco Use Types Packs/Day Years [...] Info) Description 02/05/2025 11:00 AM EDT Follow-Up [facility] Renal Transplant [address] [place] [address] Vinicio Harris MD [address] [place] [address] 02/05/2025 11:45 AM EDT Follow-Up [facility] Renal Transplant [address] [place] [address] 02/05/2025 12:30 PM EDT Social Work [facility] Renal Transplant [address] [place] [address] Michelet Swartz documented as of this encounter Visit Diagnoses Not on filedocumented in this encounter Care Teams Electronic System Engineer Relationship Specialty Start Date End Date Ally Ferreira [address] [place] [address] PCP - General 02/04/24 documented as of this encounter
--- OUTSIDE RECORDS SUMMARY | 2024-07-25 15:49 | XMS_ITS | Encounter Summary ---
Author Organization [employer] Address [address] [facility] 7t [place] [address] Care Team Providers Care Early Childhood Aide Classroom Name Role Phone Ally Ferreira MD Primary Care Pro vider Encounter Details Date Type Department Care Team (Late st Contact Info) Description 07/23/2024 Telephone [facility] [address] [place], [place] [phone] Ally Ferreira MD [address] [place] [address] Social History Tobacco Use Types Packs/Day Years [...] Pt stated she is on her way. Regional Vice President Life Sales advise [facility] hours. documented in this encounter Plan of Treatment Upcoming Encounters Date Type Department Care Team (Late st Contact Info) Description 09/02/2024 10:15 AM EDT Office Visit [facility] [address] [place] [address] [phone] Ally Ferreira MD [address] [place] [phone] documented as of this encounter Visit Diagnoses Not on filedocumented in this encounter Additional Health Concerns Assessment Noted Time PHQ-9 Depression Total Score: 0 07/31/19 24 11:09 AM EDT documented as of this encounter Care Teams Early Childhood Aide Classroom Relationship Specialty Start Date End Date Ally Ferreira MD [address] [place], [place] [phone] PCP - General Internal Medicine 07/25/22 documented as of this encounter
--- OUTSIDE RECORDS SUMMARY | 2024-07-25 15:49 | XMS_ITS | Encounter Summary ---
Author Organization [facility] Address [address] [place] [address] Phone Care Team Providers Care Wood Turner Name Role Phone Azucena Bradley MD Primary Care Provider [phone] Reason for Visit * Reason Comments Med Refill Encounter Details Date Type Department Care Team (Late st Contact Info) Description 03/06/2021 Refill [facility] [address] [place] [address] Forrest Adamson MD Social History Tobacco [...] on filedocumented in this encounter Care Teams Wood Turner Relationship Specialty Start Date End Date Azucena Bradley MD [address] [place] [address], [facility] 3 [place] [address] PCP - General Internal Medicine 01/22/24 documented as of this encounter
--- OUTSIDE RECORDS SUMMARY | 2024-07-25 15:49 | XMS_ITS | Clinical Summary ---
Demographics Address [address] [place] [address] Mobile Phone Home Phone Preferred Language Sudanese Marital Status Holiness Affiliation Unknown Race White Ethnic Group Unknown Author Organization [facility] Address [address] [place] [address] Care Team Providers Care Passenger Vessel Chef Name Role Phone Ally Ferreira Primary Care Provider [phone] Allergies Active Allergy Reactions Criticality Noted Date [...] 1 each 3 3 Active Dexcom G6 Multi Sensor Operator misc Use as directed. E10.65 1 each [...] Type Department Care Team Description 07/10/2024 Telephone [facility] Transplant Department [address] [place] [address] Sabina Velázquez, RN 06/20/2024 Orders Only [facility] Transplant Department [address] [place] [address] Sabina Velázquez, RN ESRD (end stage renal disease) (Primary Dx); Pre-transplant evaluation for kidney transplant 06/20/2024 Telephone [facility] Transplant Department [address] [place] [address] Sabina Velázquez, RN from Last 3 Months Immunizations Immunization Administration Dates Next Due Covid-19 Monovalent Vaccine, Moderna, mRNA, PF 07/09/2020,05/26/2020 [id number] 05/05/1993,02/22/1993,12/22/1992 Diphtheria, Tetanus Toxoids and Acellular Pertussis [...] Info) Description 02/05/2025 11:00 AM EDT Follow-Up [facility] Renal Transplant [address] [place] [address] Vinicio Harris MD [address] [place] [address] 02/05/2025 11:45 AM EDT Follow-Up [facility] Renal Transplant [address] [place] [address] 02/05/2025 12:30 PM EDT Social Work [facility] Renal Transplant [address] [place] [address] Michelet Swartz Health Maintenance Due Date Last [...] Additional history exists Procedures * Due to [place] state law, this organization might not be [...] to Health Maintenance Results * Due to [place] state law, this organization might not be sharing negative HIV tests. * (ABNORMAL) POCT Glycosylated Hemoglobin (HGB A1C), interfaced (02/27/2023 1:05 PM EST) Hemoglobin A1C, POCT 10.6(H) <=5.6 % 02/27/2023 1:20 PM EST [facility] Comment: A1C Recommendation for Non- Adults with Diabetes: <7.0% ADA 2011 Standards of Medical Care in Diabetes Blood 02/27/2023 1:05 PM EST 02/27/2023 1:20 PM EST us Robert Meredith MD LAB POCT ORDERABLES - DEVICE Final Result [facility], POC [address] [place] [address], * (ABNORMAL) Basic Metabolic Panel, Outside Lab [...] NON-REACT JOSE RAFAEL 12/01/2020 8:37 AM EDT [facility] Signal To Cut-Off 0.02 <1.00 12/01/2020 8:37 AM EDT [facility] Comment: HCV antibody was non-reactive. There is no laboratory evidence of HCV infection. In most cases, no further action is required. However, if recent HCV exposure is suspected, a test for HCV RNA (test code 24819) is suggested. For additional information please refer to [email or web address].Guarnic/faq/[email or web address] (This link is being provided for informational/ educational purposes only.) Blood Structure of peripheral vein / Unknown Venipuncture / Unknown 11/30/2020 11:09 AM EDT 11/30/2020 11:33 AM EDT Narrative DIL[facility] GILLETTE - 12/01/2020 8:37 AM EDT [facility] Received Date: Stefan Robbins MD LAB BLOOD ORDERABLES Final Result [facility] [address] [facility] 3rd Floor, [place] [address], [facility] [address] [facility] 3rd Floor, [place] [address], from Last 3 Months or Most Recently Relevant to Health Maintenance Insurance * Guarantor: Natali Mtz Account Type Relation to Patient Date of Phone Billing Address Personal/Family Self 1990 [address] [place] [address] MEDICARE [facility] * Guarantor: Natali Mtz Account Type Relation to Patient Date of Phone Billing Address Transplant Self 1990 [address] [place] [address] MEDICARE [facility] Advance Directives Documents on File Type Date Recorded Patient Student Services Advisor Expl anation Health Care Proxy 01/26/2023 10:42 AM 01/18/23 Health Care Proxy 12/11/2019 8:18 AM 11/30 Care Teams Passenger Vessel Chef Relationship Specialty Start Date End Date Ally Ferreira [address] [place] [address] PCP - General 02/04/24
--- OUTSIDE RECORDS SUMMARY | 2024-07-25 15:49 | XMS_ITS | Encounter Summary ---
Author Organization [facility] Address [address] [facility] [address] [place] [address] Phone Care Team Providers Care Re Recording Mixer Name Role Phone Azucena Bradley MD Primary Care Provider [phone] Reason for Visit * Reason Comments Med Refill Encounter Details Date Type Department Care Team ([facility] st Contact Info) Description 06/04/2023 Refill [facility] [address] [place] [phone] Wesley Pagan MD [address] [facility] [address] [place] [phone] Social History Tobacco Use Types Packs/Day Years [...] on filedocumented in this encounter Care Teams Re Recording Mixer Relationship Specialty Start Date End Date Azucena Bradley MD [address] [place] [address], Floor [address] [place] [address] PCP - General Internal Medicine 01/22/24 documented as of this encounter
--- OUTSIDE RECORDS SUMMARY | 2024-07-25 15:49 | XMS_ITS | Encounter Summary ---
Author Organization [employer] Address [address] [facility] [address] 7t [place] [address] Care Team Providers Care Storage Battery Charger Name Role Phone Ally Ferreira MD Primary Care Pro vider Reason for Visit * Reason Comments Wound Check Encounter Details Date Type Department Care Team (Late st Contact Info) Description 07/23/2024 5:20 PM EDT Office Visit [facility] [address] [place] [phone] Kaur Hernandez MD [address] [place] [address] Ulcer of right foot with fat layer [...] ulcer discharge. She has been seen by visual merchandising associate that reportedly discharged her to continue daily dressings. Her last A1c this week was 7.4 Social History Social History Narrative Not on file Patient Active Problem List Diagnosis Anxiety ESRD on hemodialysis ([facility]) Hyperlipidemia Hypertension DM (diabetes mellitus), type 1 with renal complications ([facility]) Peripheral vascular disorder ([facility]) Overweight Abnormal EKG Health care maintenance ASCUS of cervix with negative high risk HPV Lung nodule seen on imaging study Seasonal allergies Anemia Proteinuria Ascites Ulcer of right foot with fat layer exposed ([facility]) Family History Problem Relation Name Age of [...] WITH FOOD 270 tablet 1 Continuous Glucose Lift Slab Operator (Dexcom G6 staff radiographer) device Use as directed. E10.65 [facility] Saline Nasal Gaffney 0.65 % nasal spray ADMINISTER 1 SPRAY [...] tablet 1 Insulin Disposable Pump (Omnipod 5 [id number] Pods Gen 5) misc 1 each every [...] drainage, warmth, erythema, fever) come back to [facility] or call C. Try to keep pressure [...] Description 09/02/2024 10:15 AM EDT Office Visit [facility] [address] [facility] [place] [address] Ally Ferreira MD [address] [place] [address] documented as of this encounter Procedures Procedure [...] Laterality Modality Lower Extremities, Foot Right [facility] 07/24/2024 1:06 PM EDT Narrative 07/24/2024 3:30 PM EDT ? [facility] ?[address] ?[place]ise [place] [address] ?XRay Report ? Signed ? Patient: Smith,Natali L ?MR#: [id number] ?? 0620 ? : 1990 ?Acct:[id number] ? Age/Sex: 33 / F ?ADM Date: 07/24/24 ? Loc: HO.XRAY ? Attending Dr: Kaur Hernandez MD ? Ordering Physician: Kaur Hernandez MD ?? Date of Service: 07/24/24 ?? Procedure(s): XR foot RT min 3V ?? Accession Number(s): [id number] ? cc: Kaur Hernandez MD; Ally Ferreira [...] DD/ 1306 ? TD/TT: 07/24/24 1318 ? Ski Lift Attendant: ? Procedure Note Chino Perkins - 07/24/2024 [place] [address] XRay Report Signed Patient: Natali Mtz LMR#: [id number] 0620 : 1990Acct:[id number] Age/Sex: 33 / FADM Date: 07/24/24 Loc: [facility]WAIN Attending Dr: Kaur Hernandez MD Ordering Physician: Kaur Hernandez MD Date of Service: 07/24/24 Procedure(s): XR foot RT min 3V Accession Number(s): [id number] cc: Kaur Hernandez MD; Ally Ferreira MD [...] 07/24/24 1527 DD/ 1306 TD/TT: 07/24/24 1318 Ski Lift Attendant: Kaur Hernandez MD IMG XR PROCEDURES Final [...] documented as of this encounter Care Teams Storage Battery Charger Relationship Specialty Start Date End Date Ally Ferreira MD [address] [place] [address] PCP - General Internal Medicine 07/25/22 documented as of this encounter
--- OUTSIDE RECORDS SUMMARY | 2024-07-25 15:49 | XMS_ITS | Encounter Summary ---
Author Organization [facility] Address [address] [place] [address] Care Team Providers Care Reinforcing Iron Worker Helper Name Role Phone Ally Ferreira Primary Care Provider [phone] Encounter Details Date Type Department Care Team (Late st Contact Info) Description 05/07/2023 Orders Only [facility] Nuclear Medicine [address] [place] [address] Shiva Duran MD [address] [place] [address] Social History Tobacco Use Types Packs/Day Years [...] Info) Description 02/05/2025 11:00 AM EDT Follow-Up [facility] Renal Transplant [address] [place] [address] Vinicio Harris MD [address] [place] [address] 02/05/2025 11:45 AM EDT Follow-Up [facility] Renal Transplant [address] [place] [address] 02/05/2025 12:30 PM EDT Social Work [facility] Renal Transplant [address] [place] [address] Michelet Swartz documented as of this encounter Visit Diagnoses Not on filedocumented in this encounter Care Teams Reinforcing Iron Worker Helper Relationship Specialty Start Date End Date Ally Ferreira [address] [place] [address] PCP - General 02/04/24 documented as of this encounter
--- OUTSIDE RECORDS SUMMARY | 2024-07-25 15:49 | XMS_ITS | Encounter Summary ---
Author Organization [facility] Address [address] [place] [address] Phone Care Team Providers Care Director Internal Communications Name Role Phone Azucena Bradley MD Primary Care Provider [phone] Reason for Visit * Reason Comments Med Refill Encounter Details Date Type Department Care Team (Late st Contact Info) Description 06/22/2022 Refill [facility] [address] [place] [address] Forrest Adamson MD Social History Tobacco [...] on filedocumented in this encounter Care Teams Director Internal Communications Relationship Specialty Start Date End Date Azucena Bradley MD [address] [place] [address], [facility] 3 [place] [address] PCP - General Internal Medicine 01/22/24 documented as of this encounter
--- OUTSIDE RECORDS SUMMARY | 2024-07-25 15:49 | XMS_ITS | Clinical Summary ---
Author Organization [address] [facility] Address [address] [place] [address] Phone Care Team Providers Care Healthcare Educator Name Role Phone Mt Hooker MD Primary Care Provider [phone] Allergies No known active allergies Medications CALCITRIOL [...] 1:30 PM EDT Office Visit Orthopedic [facility] [address] [phone] Siva Lino DPTristin Poorly controlled type 2 diabetes mellitus with neuropathy (CMS/HCC V24, CMS/HCC V28) (Primary Dx); Neuropathy; Callus; Localized edema; Hammertoes of both feet; Ulcer of right heel, with fat layer exposed (CMS/HCC V24, CMS/HCC V28) 06/17/2024 10:15 AM EST Office Visit [facility]opedic [facility] [address] [phone] Siva Lino, DPM Controlled type 2 diabetes with neuropathy (CMS/HCC V24, CMS/HCC V28) (Primary Dx); Hammertoes of both feet; Dermatophytosis, nail; Ulcer of right heel, with fat layer exposed (CMS/HCC V24, CMS/HCC V28) 06/10/2024 10:00 AM EST Office Visit Orthopedic [facility] [address] [phone] Siva Lino A, DPM Controlled type 2 diabetes with neuropathy (CMS/HCC V24, CMS/HCC V28) (Primary Dx); Ulcer of right heel, with fat layer exposed (CMS/HCC V24, CMS/HCC V28); Non-pressure chronic ulcer of right ankle with fat layer exposed (CMS/HCC V24, CMS/HCC V28) 06/03/2024 10:15 AM EST Office Visit Orthopedic [facility] [address] [phone] Siva Lino, DPM Hammertoes of both feet (Primary Dx); Controlled type 2 diabetes with neuropathy (CMS/HCC V24, CMS/HCC V28); Ulcer of right heel, with fat layer exposed (CMS/HCC V24, CMS/HCC V28) 05/06/2024 1:00 PM EST Office Visit Orthopedic Surgery [facility] [address] [facility] [address] [place] [phone] Siva Lino, HATTIE Controlled type 2 diabetes with neuropathy ([facility] V24, [facility] V28) (Primary Dx); Hammertoes of both feet; Xerosis cutis; Ulcer of right heel, limited to breakdown of skin ([facility] V24, [facility] V28); Dermatophytosis, nail from Last 3 Months Immunizations Name Administration Dates Next Due COVID-19 (Moderna/Spikevax) 12yo and older 01/26 Moderna SARS-CoV-2 COVID-19, mRNA, LNP-S, preservative free 07/09/2020,05/26/2020 Medical History Medical History Date Comments Kidney failure DX:Kidney failur e Diabetes mellitus ([facility] V24, [facility] V28) DX:Diabetes mellitus (HCC) Diabetic neuropathy ([facility] V24, [facility] V28) DX:Diabetic neuropathy (HCC) Type 1 diabetes ([facility] V24, [facility] V28) DX:Type 1 diabetes ([facility]) Hypertension DX:Hypertension Social History Tobacco Use Types [...] 10:30 AM EDT Office Visit Orthopedic [facility] 250 175 [facility] 250 [place] [phone] Siva Lino, DPM 175 [facility] 250 [place] [address] Health Maintenance Due Date Last Done Comments [...] Health Maintenance Results * Hemoglobin A1c (02/27/2023) [facility] Hemoglobin A1C 0.0 % Comment:no interpretation, a bstracted Blood Venous blood specimen / Unknown Historical Provider LAB BLOOD ORDERABLES Araceli l Result * Annual BMP Blood Test (04/06/2022) Pathologist [facility] Annual BMP Blood Test abstracted Historical Provider HEALTH MAINTENANCE Final Result * Hepatitis C Screening (11/30/2020) Pathologist [facility] Hepatitis C Screening abstracted Historical Provider HEALTH MAINTENANCE Final Result from Last 3 Months or Most Recently Relevant to Health Maintenance Insurance MEDICAID - [place] MEDICARE Care Teams Healthcare Educator Relationship Specialty Start Date End Date Mt Hooker MD [address] [place] [phone] PCP - General Internal Medicine 09/26/21
--- OUTSIDE RECORDS SUMMARY | 2024-07-25 15:50 | XMS_ITS | Encounter Summary ---
Author Organization [facility] Address [address] [place] [address] Care Team Providers Care Advanced Practice Nurse Psychotherapist Name Role Phone Ally Ferreira Primary Care Provider [phone] Encounter Details Date Type Department Care Team (Late st Contact Info) Description 01/11/2021 Orders Only [facility] Nuclear Medicine [address] [place] [address] Shiva Duran MD [address] [place] [address] Social History Tobacco Use Types Packs/Day Years [...] Info) Description 02/05/2025 11:00 AM EDT Follow-Up [facility] Renal Transplant [address] [place] [address] Vinicio Harris MD [address] [place] [address] 02/05/2025 11:45 AM EDT Follow-Up [facility] Renal Transplant [address] [place] [address] 02/05/2025 12:30 PM EDT Social Work [facility] Renal Transplant [address] [place] [address] Michelet Swartz documented as of this encounter Visit Diagnoses Not on filedocumented in this encounter Care Teams Advanced Practice Nurse Psychotherapist Relationship Specialty Start Date End Date Ally Ferreira [address] [place] [address] PCP - General 02/04/24 documented as of this encounter
--- OUTSIDE RECORDS SUMMARY | 2024-07-25 15:50 | XMS_ITS | Clinical Summary ---
Author Organization [employer] Address [address] [place] [address] Care Team Providers Care Blanker Press Operator Name Role Phone Ally Ferreira MD [...] tablet 1 023 Active [facility] Saline Nasal [place] 0.65 % nasal spray ADMINISTER 1 SPRAY [...] tablet 1 02/29/2 024 Active Continuous Glucose Window Shade Cloth Sewer (Dexcom G6 warehouse receiver) device Use as directed. E10.65 Active Fiasp [...] 2 Active Insulin Disposable Pump (Omnipod 5 EvyI6N5 Pods Gen 5) misc 1 each every [...] possible transplant in the future would like hide mill worker to evaluate pt -referred today Seasonal allergies 01/11/2023 Assessment & Plan (01/11/2023 7:58 PM EDT): Reports seasonal allergies symptoms -px ocean spray,cetirizine 5 mg max 3 times a week Anemia 01/11/2023 Assessment & Plan (01/11/2023 8:03 PM EDT): 07/2022 Hb 9.9, AEC 597 Anemia from chronic dx f w special education supervisor -states getting tx w special education supervisor- removed from iron pills Peripheral vascular disorder [...] reports to be following with vascular at [facility] --- ---- requested record to Yariel [...] and exercise,discussed healthy life style -to see special education supervisor referred by her endoc Abnormal EKG 08/10/2022 Assessment & Plan (01/11/2023 7:44 PM EDT): -EKG 07/2022 showed now acute ischemic findings there is QTC prolonged to 491 but noted in the past as well -states was seen by cards before unsure reason but w no major findings -found inconclusive stress test done in 2020 -Per pt has been seen by cards at [facility] -sounds possible was evaluated by [...] x1 , HPV x3, hep B x3-immune, appspuigc54 x2 and later p13 in 2018 -will [...] visit , HPV x3, hep B x3, [id number] x2 and later p13 in 2019 ,MMRx2,varicellax2 [...] . Natali was offered same-day appointments with N/[facility]. Patient prefers a referral outside the [...] for self PLAN: 1. Follow up with [facility]: Not recommended for follow-up 2. Patient goal [...] Plan (01/11/2023 7:48 PM EDT): cara w special education supervisor on HD ( [facility]) In eval x [...] called today CM from the hospital # [id number] and discussed pt's concern to be taken [...] Plan (08/10/2022 1:01 PM EDT): cara w special education supervisor on HD ( Kwesi) In eval x [...] tab of 100 mg?? --px by her special education supervisor --advised pt to follow w her specialist to confirm dose of med Assessment & Plan (08/10/2022 12:41 PM EDT): BP at home per pt <140/90 Stopped hydralazine by her special education supervisor for hypotensive episodes after HD Currently denies [...] losartan ? -all meds refilled by her special education supervisor ,states dont need any meds refilled -f BP at her next apt -advised to check at home and bring readings Hyperlipidemia 09/06/2012 Proteinuria 01/09/2012 03/07/2023 DM (diabetes mellitus), type 1 with renal compli cations 04/16/1958 Assessment & Plan (01/11/2023 8:05 PM EDT): dxed w DM1 at age 11 y of age c/w nephropathy -ESRD on HD complicated w hypoglycemic events f w emergency room physician -Dr Morro Amor on novolog SS ( 6 to 8 u TID)and lantus 18 u HS Hb1AC capillary today is 12.3<---12, LDL 86,CBG elevated today at 235 -pediatric intensive physician referred today -opthalmo has apt for 05/2023 -sent glucose tab-before and would discuss about gluconate at next visit x emergency -continue care w her emergency room physician -will hold on doing Changes per pt [...] HD complicated w hypoglycemic events f w emergency room physician -Dr Morro Amor on novolog SS ( 6 to 8 u TID)and lantus 10 u HS --got today records of her last visit w endo in 07/2022 Hb1AC capillary 12 today --from last endo note had hb1AC in 07/2022 10.9? -pediatric intensive physician referred already by her emergency room physician -pd to abigail bryant -opthalmo referral today Pt has continuous capillary glucose check marking bw 55 to 400s ----pt takes her readings to her endo office to do changes in meds -to take tomorrow to endo's office -Pd to see a health educator and special education supervisor referred by her emergency room physician ----pt recently got the CGM by her [...] Description 07/23/2024 5:20 PM EDT Office Visit [facility] [address] [place] [address] Kaur Hernandez MD Ulcer of right foot with fat layer exposed (CMS/HCC) (Primary Dx) 07/23/[address] [facility] MED[facility] [address] [place] [address] Ally Ferreira MD 07/17/2024 Orders Only GENERIC EXTERNAL DATA DEPARTMENT Provider, Generic External Data 07/14/[address] [facility] [address] [place] [address] Ally Ferreira MD Hypertension, unspecified type 06/27/2024 Population Health Risk Score [facility] (C[facility]) Department [address] [phone] Provider, Population Health Generic 06/26/2024 Orders Only GENERIC EXTERNAL DATA DEPARTMENT Provider, Generic External Data 06/23/[address] [facility] [address] [place] [address] Ally Ferreira MD August recalls 06/03/[address] [facility] [address] [place] [address] Ally Ferreira MD 05/30/2024 11:00 AM EST Telemedicine [facility] [address] [facility] [place] [address] Randi Marcelino, PharmD Type 1 diabetes mellitus with chronic kidney disease on chronic dialysis (CMS/HCC) (Primary Dx); Hypertension, unspecified type; Hyperlipidemia, unspecified hyperlipidemia type 05/13/2024 10:30 AM EST Office Visit [facility] [address] [facility] [place] [address] Rosy Dawson ANP Hospital discharge follow-up (Primary Dx); Hyperkalemia; Type 1 diabetes mellitus with chronic kidney disease on chronic dialysis (CMS/HCC); Arm DVT (deep venous thromboembolism), acute, right (CMS/HCC); ESRD on hemodialysis (CMS/[facility]); Elevated brain natriuretic peptide (BNP) level 05/13/2024 Travel 05/12/[address] [facility] [address] [facility] [place] [address] Ally Ferreira MD from Last 3 Months Immunizations Name Administration [...] AM EDT Office Visit [facility] [address] [place] [phone] Ally Ferreira MD [address] [place] [address] Health Maintenance Due Date Last Done Comments Alcohol/Substance Use Screening 2003 Family Planning (PISQ) 09/09/2006 Diabetes: Hemoglobin A1C 12/07/2023 024, 04/26/2023, 01/11/2023, Additional history exists Eye Exam 06/18/2024 06/19/2023, 0 08/2023, 06/19/2023, Additional history exists SDOH Screening 07/18/2024 07/19/2023 Depression Screening 07/30/2024 07/31/2023, 07/31/19 24 Lipid Panel 09/05/2024 09/06/2023, 0 11/2023, 08/11/2022, Additional history exists Diabetes: Foot [...] Laterality Modality Lower Extremities, Foot Right [facility] 07/24/2024 1:06 PM EDT Narrative 07/24/2024 3:30 PM EDT ? [facility] ?[address] ?[place] [address] ?XRay Report ? Signed ? Patient: Smith,Natali L ?MR#: [id number] ?? 0620 ? : 1990 ?Acct:[id number] ? Age/Sex: 33 / F ?ADM Date: // ? Loc: HO.XRAY ? Attending Dr: Kaur Hernandez MD ? Ordering Physician: Kaur Hernandez MD ?? Date of Service: 07/24/24 ?? Procedure(s): XR foot RT min 3V ?? Accession Number(s): [id number] ? cc: Kaur Hernandez MD; Ally Ferreira [...] DD/ 1306 ? TD/TT: 07/24/24 1318 ? Marker Shipments: ? Procedure Note Darrylramosjosejames, Image - 07/24/2024 [place] [address] XRay Report Signed Patient: Natali Mtz LMR#: [id number] [id number] : 1990Acct:[id number] Age/Sex: 33 / FADM Date: 07/24/24 Loc: HO.TOÑITO Attending Dr: Kaur Hernandez MD Ordering Physician: Kaur Hernandez MD Date of Service: 07/24/24 Procedure(s): XR foot RT min 3V Accession Number(s): [id number] cc: Kaur Hernandez MD; Ally Ferreira MD [...] 07/24/24 1527 DD/ 1306 TD/TT: 07/24/24 1318 Marker Shipments: Kaur Hernandez MD IMG XR PROCEDURES Final [...] drainage, warmth, erythema, fever) come back to [facility] or call C. Try to keep pressure off of it if possible. us Kaur Hernandez MD IN CLINIC/BEDSIDE ORDERA BLES Final Result * (ABNORMAL) Respiratory Allergy Profile Region I (07/17/2024 11:19 AM EDT) Mouse Urine Proteins (E72) IgE <0.10 kU/L [facility] Class 0 [facility] Cockroach (I6) IgE <0.10 kU/L [facility] Class 0 [facility] Dermatophagoides farinae (D2) IgE 1.28(A) kU/L [facility] Class 2 [facility] Cat Dander (E1) IgE <0.10 kU/L [facility] Class 0 [facility] Comment:THIS TEST WAS PERFOR MED AT:[employer] [place] [phone] HUNTER MD Dog Dander (E5) IgE 1.19(A) kU/L [facility] Class 2 [facility] Comment:THIS TEST WAS PERFOR MED AT:[employer] [place] [address]SPVOQAYDEN HUNTER MD Faisal Grass (G6) IgE 0.21(A) kU/L [facility] Class 0/1 [facility] Cladosporium herbarum (M2) IgE <0.10 kU/L [facility] Class 0 [facility] Aspergillus Fumigatis (M3) IgE <0.10 kU/L [facility] Class 0 [facility] Alternaria alternata (M6) IgE <0.10 kU/L [facility] Class 0 [facility] Comment:THIS TEST WAS PERFOR MED AT:[employer] [address] [place] [address]GURAHAYDEN HUNTER MD [place] (t6) IgE <0.10 kU/L [facility] Class 0 [facility] [place] (T7) IgE 1.46(A) kU/L [facility] Class 2 [facility] [place] Tree (T10) IgE <0.10 kU/L [facility] Class 0 [facility] [place] (T11) IgE <0.10 kU/L [facility] Class 0 [facility] [place] (T14) IgE <0.10 kU/L [facility] Class 0 [facility] [place] (t15) IgE <0.10 kU/L [facility] Class 0 [facility] [place] (T70) IgE <0.10 kU/L [facility] Class 0 [facility] Common Ragweed (Short) (W1) IgE 0.67(A) kU/L [facility] Class 1 [facility] Mugwort (w6) IgE 0.41(A) kU/L [facility] Class 1 [facility] Dermatophagoides pteronyssinus (D1) IgE 1.56(A) kU/L [facility] Class 2 [facility] Berm[place] Grass (g2) IgE <0.10 kU/L [facility] Class 0 [facility] Penicillium Notatum (M1) IgE <0.10 kU/L [facility] Class 0 [facility] Birch (T3) IgE 1.57(A) kU/L [facility] Class 2 [facility] Elm (t8) IgE <0.10 kU/L [facility] Class 0 [facility] Maple (Shawnee) (T1) IgE <0.10 kU/L [facility] Class 0 [facility] Rough Pigweed (W14) IgE <0.10 kU/L [facility] Class 0 [facility] Sheep Hecker (W18) IgE <0.10 kU/L [facility] Class 0 [facility] Allergen Comment See Below [facility] Comment: Specific ?Level of [...] and its analyticalperformance characteristics have been determined byThe [employer] (AMI). It has not been cleared or approvedby the U.S. Food and Drug Administration. This assayhas been validated pursuant to the CLIA regulationsand is used for clinical purposes.THIS TEST WAS PERFORMED AT:[employer] [place] [address] ??[phone] HUNTER MD 07/17/2024 11:1 9 AM EDT 07/17/2024 11:19 AM EDT us Generic External Data Provider LAB BLOOD ORDERAB LES Final Result [facility] [address] [place] [phone] * (ABNORMAL) CBC auto differential (07/17/2024 11:19 AM EDT) White Blood Count 14.8(H) 4.8 - 10.8 X10*3/uL [facility] Red Blood Count 3.20(L) 4.20 - 5.50 X10*6/uL [facility] Hemoglobin 9.7(L) 12.0 - 16.0 g/dl [facility] Hematocrit 29.7(L) 37.0 - 47.0 % [facility] Mean Corpuscular Volume 92.8 80.0 - 98.0 fL [facility] Mean Corpuscular Hemoglobin 30.3 27.0 - 33.0 pg [facility] Mean Corpuscular HGB Conc 32.7 31.0 - 35.0 g/dl [facility] Red Cell Distribution Width 15.9 11.0 - 16.0 % [facility] Platelet Count 296 160 - 400 X10*3/uL [facility] Mean Platelet Volume 11.0 9.4 - 12.3 fL [facility] Neutrophils Percent Auto 71.3 45 - 73 % [facility] Imm Gran Pct Auto 0.6(H) 0.0 - 0.4 % [facility] Lymphocytes Percent Auto 13.6(L) 20 - 40 % [facility] Monocytes Percent Auto 7.2 2 - 11 % [facility] Eosinophils Percent Auto 6.4(H) 0 - 4 % [facility] Basophils Percent Auto 0.9 0 - 2 % [facility] NRBC Pct Auto 0.0 0.0 - 0.2 /100WBC [facility] Neutrophils Absolute Auto 10.5(H) 2.0 - 8.3 x10*3/uL [facility] Imm Gran Abs Auto 0.09(H) 0.00 - 0.03 X10*3/uL [facility] Lymphocytes Absolute Auto 2.0 1.2 - 4.9 X10*3/uL [facility] Monocytes Absolute Auto 1.1 0.1 - 1.2 X10*3/uL [facility] Eosinophils Absolute Auto 0.9(H) 0.0 - 0.4 X10*3/uL [facility] Basophils Absolute Auto 0.1 0.0 - 0.2 X10*3/uL [facility] NRBC Abs Auto 0.000 0.0 - 0.012 X10*3/uL [facility] 07/17/2024 11:1 9 AM EDT 07/17/2024 11:19 AM EDT us Generic External Data Provider LAB BLOOD ORDERAB LES Final Result Performing Organization Address City/[facility]/ZIP Co de Phone Number [facility] [address] [place] [phone] * (ABNORMAL) Fructosamine (07/17/2024 11:19 AM EDT) Fructosamine 510(A) 205 - 285 umol/L [facility] Comment:THIS TEST WAS PERFOR MED AT:[employer]/[facility] [place] [address]KJFFDGKANAYA BENITEZ MD,PHD 07/17/2024 11:1 9 AM EDT 07/17/2024 11:19 AM EDT us Generic External Data Provider LAB BLOOD ORDERAB LES Final Result Performing Organization Address City/[facility]/ZIP Co de Phone Number [facility] [address] [place] [phone] * (ABNORMAL) Immunoglobulin G Subclasses Panel (07/17/2024 11:19 AM EDT) Pathologist [facility] IgG Subclass 1 734 382 - 929 mg/dL [facility] IgG Subclass 2 724(A) 241 - 700 mg/dL [facility] IgG Subclass 3 96 22 - 178 mg/dL [facility] IgG Subclass 4 37.1 4 - 86 mg/dL [facility] Immunoglobulin G, Serum 1628 600 - 1640 mg/dL [facility] Comment:THIS TEST WAS PERFOR MED AT:[employer] [place] [phone] HUNTER MD 07/17/2024 11:1 9 AM EDT 07/17/2024 11:19 AM EDT Generic External Data Provider LAB BLOOD ORDERAB LES Final Result Performing Organization Address [facility]/ZIP Co de Phone Number [facility] [address] [place] [phone] * (ABNORMAL) Sed Rate by Modified Quincyergren (07/17/2024 11:19 AM EDT) [facility] Erythrocyte Sedimentation Rate 93(H) 0 - 20 MM/HR [facility] Comment:Patients with polycy themia and many hemoglobin abnormalitiesmay have depressed sed rates whereas patients with anemiamay have elevated sed rates. 07/17/2024 11:1 9 AM EDT 07/17/2024 11:19 AM EDT us Generic External Data Provider LAB BLOOD ORDERAB LES Final Result Performing Organization Address [facility] Co de Phone Number [facility] [address] [place] [phone] * (ABNORMAL) Immunoglobulins, Quantitative, IgA, IgG, IgM (07/17/2024 11:19 AM EDT) Pathologist [facility] IMMUNOGLOBULIN G 1801(A) 600 - 1640 mg/dL [facility] IMMUNOGLOBULIN A 462(A) 47 - 310 mg/dL [facility] Immunoglobulin M 106 50 - 300 mg/dL [facility] Comment:THIS TEST WAS PERFOR MED AT:[employer] [place] [phone] HUNTER MD 07/17/2024 11:1 9 AM EDT 07/17/2024 11:19 AM EDT us Generic External Data Provider LAB BLOOD ORDERAB LES Final Result Performing Organization Address [facility] Co de Phone Number [facility] [address] [place] [phone] * Immunoglobulin E (07/17/2024 11:19 AM EDT) Immunoglobulin E 86 <IP=343 kU/L [facility] 07/17/2024 11:1 9 AM EDT 07/17/2024 11:19 AM EDT Generic External Data Provider LAB BLOOD ORDERAB LES Final Result Performing Organization Address [facility] de Phone Number [facility] [address] [place] [phone] * (ABNORMAL) Glucose, Whole Blood (06/26/2024 10:22 AM EDT) Glucose, Whole Blood 188(H) 60 - 115 mg/dL [facility] Comment:METER #: [id number] Testing performed in the Endocrinology Department [address] , [address], [facility]. 06/26/2024 10:2 2 AM EDT 06/26/2024 10:24 AM EDT us Generic External Data Provider LAB BLOOD ORDERAB LES Final Result Performing Organization Address [facility] de Phone Number [facility] [address] [place] [phone] * Hepatitis C Antibody with Reflex to HCV, RNA, Quantitative, Real-Time PCR (09/06/2023 10:47 AM EDT) [facility] Hepatitis C Antibody Nonreactive Nonreactive [facility] Comment:Antibodies to HCV no t detected; does not exclude early acuteHCV infection. Blood Venous blood specimen / Unknown 09/06/2023 10:47 AM EDT 09/06/2023 10:47 AM EDT Ally Ferguson MD LAB BLOOD ORDERAB LES Final Result Performing Organization Address [facility] Co de Phone Number [facility] [address] [place] [phone] * HIV-1/2 Antigen and Antibodies, Fourth Generation, with Reflexes (09/06/2023 10:47 AM EDT) [facility] HIV AB/AG Nonreactive Nonreactive [facility] Comment:HIV-1 p24 Ag and/or HIV-1/HIV-2 Ab not detected.A test result that is nonreactive does not exclude thepossibility of exposure to or infection with HIV-1 and/orHIV-2. Nonreactive results in this assay for individualswith prior exposure to HIV-1 and/or HIV-2 may be due toantigen and antibody levels that are below the limit ofdetection of this assay.The [email or web address] HIV Ag/Ab Combo assay result andsupplemental assay results should be interpreted inconjunction with the patient's clinical presentation,history and other laboratory results. If the results areinconsistent with clinical evidence, additional testing issuggested to confirm the result. Blood Venous blood specimen / Unknown 09/06/2023 10:47 AM EDT 09/06/2023 10:47 AM EDT us Ally Ferguson MD LAB BLOOD ORDERAB LES Final Result Performing Organization Address City/[facility]/ZIP Co de Phone Number [facility] [address] [place] [address] [place] [phone] * (ABNORMAL) Hemoglobin A1c (09/06/2023 10:47 AM EDT) Hemoglobin A1c 9.4(H) <6.0 % [facility] Comment:Hemoglobin A1C Refer ence Range Adults: 4.8 - 6.0 % Non diabetic: < 6.0 % Goal: < 7.0 %Additional Action Suggested: > 8.0 %Note: Hemoglobin A1c results are invalid for patients with abnormal amounts of HbF. Blood transfusions may impact the HbA1c concentration in the patient sample. Estimated Average Glucose 223 mg/dL [facility] Comment:eAG = Estimated ave rage glucose which is %A1C expressed asaverage glucose, using the formula of the X3F-PmqzwigSqvlgfq Glucose study (ADAG), Diabetes Care, Vol.31,#8,Nov. 2007 Blood Venous blood specimen / Unknown 09/06/2023 10:47 AM EDT 09/06/2023 10:47 AM EDT us Ally Ferguson MD LAB BLOOD ORDERAB LES Final Result [facility] [address] [place] [phone] * (ABNORMAL) Lipid Panel, Standard (09/06/2023 10:47 AM EDT) Triglycerides 256(H) <150 mg/dL [facility] Comment:Desirable Triglyceri de: less than 150 mg/dLBorderline High Triglyceride 150-199 mg/dLHigh Triglyceride: 200-499 mg/dLVery High Triglyceride: greater than or equal to 5OO mg/dL Cholesterol 203(H) <200 mg/dL [facility] Comment:Desirable Cholestero l: less than 200 mg/dLBorderline High Cholesterol: 200-239 mg/dLHigh Cholesterol: greater than 239 mg/dL LDL Cholesterol Calculated 123(H) <100 mg/dL [facility] Comment:Desirable LDL: less than 100 mg/dLNear Optimal/Above Optimal LDL: 110- 129 mg/dLBorderline High LDL: 130-159 mg/dLHigh LDL: 160-189 mg/dLVery High LDL: greater than or equal to 190 mg/dL HDL Cholesterol 29(L) >40 mg/dL [facility] Comment:Desirable HDL: great er than 40 mg/dL Note: This HDL assay may give artificially low results in patients with liver disease. Blood Venous blood specimen / Unknown 09/06/2023 10:47 AM EDT 09/06/2023 10:47 AM EDT Ally Fergsuon MD LAB BLOOD ORDERAB LES Final Result [facility] [address] [place] [phone] * Pap Smear (05/17/2023 12:00 AM EST) Swab [facility] Provider LAB CYTOLOGY ORDERABLES F inal Result [facility] [address] [place] [address] * HPV mRNA E6/E7 (02/03/2021 9:37 AM EDT) HPV nRNA E6/E7 Not Detected Not Detected [facility] Comment: Methodology: Superintendent Stevedoring-Mediated Amplification This assay detects E6/E7 viral messenger RNA (mRNA) from 14 high-risk HPV types (16,18,31,33,35,39,45,51,52,56,58,59,66,68). ? The analytical performance characteristics of this assay have been determined by [employer] ([employer]). The modifications have not been cleared or approved by the FDA. This assay has been validated pursuant to the CLIA regulations and is used for clinical purposes. ?? For additional information, please refer to http://education.[employer]/faq/RQY003p6 (This link if provided for information/ educational purposes only.) HPV nRNA E6/E7 Not Detected Not Detected [facility] Comment: Methodology: Superintendent Stevedoring-Mediated Amplification This assay detects E6/E7 viral messenger RNA (mRNA) from 14 high-risk HPV types (16,18,31,33,35,39,45,51,52,56,58,59,66,68). ? The analytical performance characteristics of this assay have been determined by [employer] ([employer]). The modifications have not been cleared or approved by the FDA. This assay has been validated pursuant to the CLIA regulations and is used for clinical purposes. ?? For additional information, please refer to http://education.[employer]/faq/CMS684i7 (This link if provided for information/ educational purposes only.) 02/03/2021 9:37 AM EDT us Jen Lozoya CNM LAB BLOOD ORDERABLES Araceli maher Result [facility] [address] from Last 3 Months or Most Recently Relevant to Health Maintenance Insurance [facility] STANDARD MEDICARE Care Teams Blanker Press Operator Relationship Specialty Start Date End Date Ally Ferreira MD [address] [place] [phone] PCP - General Internal Medicine 07/25/22
--- OUTSIDE RECORDS SUMMARY | 2024-07-25 15:50 | XMS_ITS | Encounter Summary ---
Author Organization [facility] Address [address] [place] [address] Phone Care Team Providers Care Intensive Care Unit Nurse Name Role Phone Azucena Bradley MD Primary Care Provider [phone] Reason for Visit * Reason Comments Med Refill Encounter Details Date Type Department Care Team (Late st Contact Info) Description 12/24/2021 Refill [facility] [address] [place] [address] Forrest Adamson MD Social History Tobacco [...] on filedocumented in this encounter Care Teams Intensive Care Unit Nurse Relationship Specialty Start Date End Date Azucena Bradley MD [address] [place] [address], [facility] 3 [place] [address] PCP - General Internal Medicine 01/22/24 documented as of this encounter
--- OUTSIDE RECORDS SUMMARY | 2024-07-25 15:50 | XMS_ITS | Encounter Summary ---
Author Organization [employer] Address 75 [facility] 7 [place] [address] Care Team Providers Care Bleach Tester Name Role Phone Ally Ferreira MD Primary Care Pro vider Reason for Visit * Reason Onset Date Comments Referral 05/01/2023 Encounter Details Date Type Department Care Team ([facility] st Contact Info) Description 05/01/2023 Telephone [facility] MEDICINE [address] [place], [place] [phone] Ally Ferreira MD 230 [place] [address] Referral Social History Tobacco Use Types Packs/Day [...] Description 09/02/2024 10:15 AM EDT Office Visit [facility] MEDICINE [address] [place] [address] Ally Ferreira MD [address] [place] [address] documented as of this encounter Visit Diagnoses Not on filedocumented in this encounter Additional Health Concerns Assessment Noted Time PHQ-9 Depression Total Score: 0 08/11/19 9:11 AM EDT documented as of this encounter Care Teams Bleach Tester Relationship Specialty Start Date End Date Ally Ferreira MD [address] [place] [address] PCP - General Internal Medicine 07/25/22 documented as of this encounter
--- OUTSIDE RECORDS SUMMARY | 2024-07-25 15:50 | XMS_ITS | Encounter Summary ---
Demographics Address [address] [place] [address] Mobile Phone Home Phone Preferred Language Irish Marital Status Nondenominational Affiliation Unknown Race White Ethnic Group Unknown Author Organization [facility] Address [address] [place] [address] Care Team Providers Care Assembler Adjuster Name Role Phone Ally Ferreira Primary Care Provider [phone] Encounter Details Date Type Department Care Team (Late st Contact Info) Description 02/22/2024 Orders Only [facility] Nuclear Medicine [address] [place] [address] [phone] Victor Manuel Corado MD PhD [address] [place], [place] [phone] Social History Tobacco Use Types Packs/Day Years [...] Info) Description 02/05/2025 11:00 AM EDT Follow-Up [facility] Renal Transplant 55 [place], [place] [phone] Vinicio Harris MD [address] [place], [place] [phone] 02/05/2025 11:45 AM EDT Follow-Up [facility] Transplant 55 [place] [address] 02/05/2025 12:30 PM EDT Social Work [facility] Renal Transplant [address] [place] [address] Michelet Swartz documented as of this encounter Visit Diagnoses Not on filedocumented in this encounter Care Teams Assembler Adjuster Relationship Specialty Start Date End Date Ally Ferreira [address] [place] [address] PCP - General 02/04/24 documented as of this encounter
--- OUTSIDE RECORDS SUMMARY | 2024-07-25 15:50 | XMS_ITS | Encounter Summary ---
Author Organization [employer] Address [address] [facility] [address] 7t [place] [address] Care Team Providers Care Window Glass Cutter Off Name Role Phone Ally Ferreira MD Primary Care Pro vider Reason for Visit * Reason Comments Med Refill Encounter Details Date Type Department Care Team ([facility] Contact Info) Description 09/02/2022 Refill [facility] MEDICINE [address] [place] [address] Blair Lopez AGNP Hypertension, unspecified [...] Upcoming Encounters Date Type Department Care Team ([facility] Contact Info) Description 09/02/2024 10:15 AM EDT Office Visit [facility] MEDICINE [address] [place] [address] Ally Ferreira MD 230 [place] [address] documented as of this encounter Visit Diagnoses Diagnosis Hypertension, unspecified type documented in this encounter Additional Health Concerns Assessment Noted Time PHQ-9 Depression Total Score: 0 08/11/19 9:11 AM EDT documented as of this encounter Care Teams Window Glass Cutter Off Relationship Specialty Start Date End Date Ally Ferreira MD [address] [place] [address] PCP - General Internal Medicine 07/25/22 documented as of this encounter
--- OUTSIDE RECORDS SUMMARY | 2024-07-25 15:50 | XMS_ITS | Clinical Summary ---
Author Organization [facility] Address [address] [place] [phone] Phone Care Team Providers Care Linker Up Name Role Phone Azucena Bradley MD Primary Care Provider [phone] Medications losartan (COZAAR) 50 MG tablet TAKE [...] 07/18/2024 Treatment [facility] [address] [place] [phone] Atul Burton MD End stage renal disease; Dependence on renal dialysis 07/16/2024 Treatment [facility] [address] [phone] Atul Burton MD End stage renal disease; Dependence on renal dialysis 07/07/2024 Treatment [facility] [address] [phone] Atul Burton MD End stage renal disease; Dependence on renal dialysis 07/02/2024 Treatment [facility] [address] [address] Atul Burton MD End stage renal disease; Dependence on renal dialysis 06/30/2024 Treatment [facility] [address] [phone] Atul Burton MD End stage renal disease; Dependence on renal dialysis 06/18/2024 Treatment [facility] [address] [phone] Atul Burton MD End stage renal disease; Dependence on renal dialysis 06/13/2024 Treatment [facility] [address] [address] Atul Burton MD End stage renal disease; Dependence on renal dialysis 05/28/2024 Treatment [facility] [address] [address] Atul Burton MD 05/26/2024 Treatment [facility] [address] [phone] Atul Burton MD 05/21/2024 Orders Only [facility] [address] [address] Atul Burton MD 05/19/2024 Treatment [facility] [address] [phone] Atul Burton MD 05/16/2024 Treatment [facility] [address] [address] Atul Burton MD 05/14/2024 Treatment [facility] [address] [address] Atul Burton MD 05/07/2024 Treatment [facility] [address] [place] [address] Atul Burton MD from Last 3 Months [...] PM EDT us Atul Burton MD LAB [id number] SOLICITED RESULTS Final Result [facility] [address] [place] [address] * (ABNORMAL) Kt/V Natural Log, URR (07/16/2024 [...] 4:57 PM EDT Atul Burton MD LAB [id number] SOLICITED RESULTS Final Result Performing Organization Address City/[facility]/ZIP Co de Phone Number [facility] [address] [place] [address] * (ABNORMAL) Calcium Phosphorus Product, Adjusted (07/16/2024 [...] 5:47 PM EDT Atul Burton MD LAB [id number] SOLICITED RESULTS Final Result Performing Organization Address [facility]/ZIP Co de Phone Number [facility] [address] [place] [address] * (ABNORMAL) TSAT (07/16/2024 3:00 AM EDT) [...] Final Re sult [facility] [address] [place] [address] * (ABNORMAL) CBC and Differential (07/16/2024 3:00 [...] ORDERABLES Final Re sult Performing Organization Address [facility] Co de Phone Number [facility] [address] [place] [address] * ALT (07/16/2024 3:00 AM EDT) Only the most recent of3 resultswithin the time period is included. ALT (SGPT) 14 10 - 49 U/L [facility] 07/16/2024 3:00 AM EDT 07/18/2024 5:47 PM EDT Atul Burton MD LAB BLOOD ORDERABLES Final Re sult Performing Organization Address [facility] de Phone Number [facility] [address] [place] [address] * AST (07/16/2024 3:00 AM EDT) Only the most recent of3 resultswithin the time period is included. AST (SGOT) 17 <34 U/L [facility] 07/16/2024 3:00 AM EDT 07/18/2024 5:47 PM EDT Atul Burton MD LAB BLOOD ORDERABLES Final Re sult Performing Organization Address [facility] de Phone Number [facility] [address] [place] [address] * Protein, total (07/16/2024 3:00 AM EDT) Only the most recent of3 resultswithin the time period is included. Total Protein 7.9 6.4 - 8.9 g/dL [facility] 07/16/2024 3:00 AM EDT 07/18/2024 5:47 PM EDT us Atul Burton MD LAB BLOOD ORDERABLES Final Re sult Performing Organization Address [facility] Co de Phone Number [facility] [address] [place] [address] * (ABNORMAL) Alkaline phosphatase (07/16/2024 3:00 AM EDT) Only the most recent of3 resultswithin the time period is included. Alkaline Phosphatase 125(H) 46 - 116 U/L [facility] 07/16/2024 3:00 AM EDT 07/18/2024 5:47 PM EDT Atul Burton MD LAB BLOOD ORDERABLES Final Re sult Performing Organization Address [facility] Co de Phone Number [facility] [address] [place] [address] * PTH, Intact (07/16/2024 3:00 AM EDT) Pathologist [facility] PTH, Intact 364 160 - 721 pg/mL [facility] Comment: Suggested (KDIGO) ESRD maintenance range is two to nine times the upper normal limit (80.1 pg/mL) for the laboratory. 07/16/2024 3:00 AM EDT 07/18/2024 5:47 PM EDT Atul Burton MD LAB BLOOD ORDERABLES Final Re sult Performing Organization Address [facility] de Phone Number [facility] [address] [place] [address] * Magnesium (07/16/2024 3:00 AM EDT) Only the most recent of3 resultswithin the time period is included. Pathologist [facility] Magnesium 2.6 1.9 - 2.7 mg/dL [facility] 07/16/2024 3:00 AM EDT 07/18/2024 5:47 PM EDT Atul Burton MD LAB BLOOD ORDERABLES Final Re sult Performing Organization Address [facility] de Phone Number [facility] [address] [place] [address] * (ABNORMAL) Lactate dehydrogenase (07/16/2024 3:00 AM EDT) Only the most recent of3 resultswithin the time period is included. LDH 417(H) 120 - 246 U/L [facility] 07/16/2024 3:00 AM EDT 07/18/2024 5:47 PM EDT Atul Burton MD LAB BLOOD ORDERABLES Final Re sult Performing Organization Address [facility] de Phone Number [facility] [address] [place] [address] * (ABNORMAL) Hemoglobin A1c (07/16/2024 3:00 AM [...] ORDERABLES Final Re sult Performing Organization Address [facility] de Phone Number [facility] [address] [place] [address] * (ABNORMAL) Glucose, random (07/16/2024 3:00 AM EDT) Only the most recent of3 resultswithin the time period is included. Glucose 138(H) 74 - 109 mg/dL [facility] 07/16/2024 3:00 AM EDT 07/18/2024 5:47 PM EDT Atul Burton MD LAB BLOOD ORDERABLES Final Re sult Performing Organization Address [facility] de Phone Number [facility] [address] [place] [address] * (ABNORMAL) Ferritin (07/16/2024 3:00 AM EDT) Only the most recent of3 resultswithin the time period is included. Ferritin 1,075(H) 10 - 291 ng/mL [facility] 07/16/2024 3:00 AM EDT 07/18/2024 5:47 PM EDT Atul Burton MD LAB BLOOD ORDERABLES Final Re sult Performing Organization Address [facility] Co de Phone Number [facility] [address] [place] [address] * (ABNORMAL) Creatinine, serum (07/16/2024 3:00 AM EDT) Only the most recent of3 resultswithin the time period is included. Creatinine 11.13(H) 0.55 - 1.02 mg/dL [facility] 07/16/2024 3:00 AM EDT 07/18/2024 5:47 PM EDT Atul Burton MD LAB BLOOD ORDERABLES Final Re sult Performing Organization Address [facility] Co de Phone Number [facility] [address] [place] [address] * (ABNORMAL) Bilirubin, total (07/16/2024 3:00 AM EDT) Only the most recent of3 resultswithin the time period is included. Total Bilirubin <0.2(L) 0.3 - 1.2 mg/dL [facility] 07/16/2024 3:00 AM EDT 07/18/2024 5:47 PM EDT Atul Burton MD LAB BLOOD ORDERABLES Final Re sult Performing Organization Address [facility] Co de Phone Number [facility] [address] [place] [address] * (ABNORMAL) Lipid panel (07/16/2024 3:00 AM [...] Final Re sult [facility] [address] [place] [address] * (ABNORMAL) Electrolyte panel (07/16/2024 3:00 AM [...] ORDERABLES Final Re sult Performing Organization Address [facility] Co de Phone Number [facility] [address] [place] [address] * (ABNORMAL) Hemoglobin (07/11/2024 3:00 AM EDT) Only the most recent of5 resultswithin the time period is included. Hgb 9.5(L) 11.2 - 15.7 g/dL [facility] Hemoglobin x 3 28.5(L) 33.6 - 47.1 g/dL [facility] 07/11/2024 3:00 AM EDT 07/12/2024 1:26 PM EDT Atul Burton MD LAB BLOOD ORDERABLES Final Re sult Performing Organization Address [facility] Co de Phone Number [facility] [address] [place] [address] * (ABNORMAL) Phosphorus (06/30/2024 3:00 AM EDT) Only the most recent of3 resultswithin the time period is included. Phosphorus, Serum 10.1(H) 2.5 - 5.0 mg/dL [facility] 06/30/2024 3:00 AM EDT 07/01/2024 12:12 PM EDT Atul Burton MD LAB BLOOD ORDERABLES Final Re sult Performing Organization Address [facility] Co de Phone Number [facility] [address] [place] [address] from Last 3 Months Insurance [place] Member Subscriber Plan / Payer (Ef fective 2020-) Name:Mansoor Mtzl L Relation to Subscriber:Self Name:Mansoor Mtzl L Payer ID:Not on file Group ID:Not on file Type:Not on file Address: [address] Medicare Medicaid [place] Member Subscriber Plan / Payer (Ef fective 2020-) Name:Mansoor Mtzl L Relation to Subscriber:Self Name:Mansoor Mtzl L Payer ID:Not on file Group ID:Not on file Type:Not on file Address: [address] [place] [phone] Care Teams Linker Up Relationship Specialty Start Date End Date Azucena Bradley MD [address] [place] [address], Floor [address] [place] [address] PCP - General Internal Medicine 01/22/24
--- OUTSIDE RECORDS SUMMARY | 2024-07-25 15:50 | XMS_ITS | Encounter Summary ---
Author Organization [employer] Address [address] [place] [address] [facility] [place] [address] Care Team Providers Care Bi Developer Name Role Phone Ally Ferreira MD Primary Care Pro vider Reason for Visit * Reason Comments Med Change Request Encounter Details Date Type Department Care Team (Late Contact Info) Description 01/13/2023 Refill [facility] MEDICINE [address] [place] [address] [phone] Ally Ferreira MD [address] [place] [address] [phone] Social History Tobacco Use Types Packs/Day Years [...] Description 09/02/2024 10:15 AM EDT Office Visit [facility] MEDICINE [address] [place] [address] [phone] Ally Ferreira MD [address] [place], [place] [phone] documented as of this encounter Visit Diagnoses Not on filedocumented in this encounter Additional Health Concerns Assessment Noted Time PHQ-9 Depression Total Score: 0 08/11/19 9:11 AM EDT documented as of this encounter Care Teams Bi Developer Relationship Specialty Start Date End Date Ally Ferreira MD [address] [place] [address] PCP - General Internal Medicine 07/25/22 documented as of this encounter
--- OUTSIDE RECORDS SUMMARY | 2024-07-25 15:50 | XMS_ITS | Encounter Summary ---
Author Organization [employer] Address [address] [place] [address] 7 [place] [address] Care Team Providers Care Target Network Analyst Name Role Phone Ally Ferreira MD Primary Care Pro vider Reason for Visit * Reason Comments Med Refill Encounter Details Date Type Department Care Team (Late Contact Info) Description 09/02/2022 Refill [facility] MEDICINE [address] [place], [place] [phone] Ally Ferreira MD [address] [place] [address] Social History Tobacco Use Types Packs/Day Years [...] Description 09/02/2024 10:15 AM EDT Office Visit [facility] MEDICINE [address] [place] [address] Ally Ferreira MD [address] [place] [address] documented as of this encounter Visit Diagnoses Not on filedocumented in this encounter Additional Health Concerns Assessment Noted Time PHQ-9 Depression Total Score: 0 08/11/19 9:11 AM EDT documented as of this encounter Care Teams Target Network Analyst Relationship Specialty Start Date End Date Ally Ferreira MD [address] [place] [address] PCP - General Internal Medicine 07/25/22 documented as of this encounter
--- OUTSIDE RECORDS SUMMARY | 2024-07-25 15:50 | XMS_ITS ---
Author Organization [facility] Address [address] [place] [address] Care Team Providers Care Director Software Name Role Phone Dory Martin Unavailable [phone] Encounters Encounter Location Date Provider Diagnosis [facility] [address] [place] [address] 02/13/2023 Dory Martin Plan Of Treatment No Information Progress Notes * Mansoor MTZlDOB: 2 (33 yo F)Acc No.[id number]:02/13/2023 Progress Notes Patient:?Natali MTZ Provider:?Dory Martin DPM :1990???Age:32 Y???Sex:Female D ate:02/13/2023 [facility] Subjective: * Chief Complaints: * ??? * Medical History:? Objective: * Vitals:? Assessment: Plan: * Treatment: * Images: * The named appointment provid er may or may not be the originator of this progress note, and it is not deemed complete until electronically signed by the appointment provider. Sign off status: Pending * Provider:?Dory Martin DPM Date:? Generated for Enoc mckinney/Siri/Erickitting on:?07/25/2024 03:49 PM EDT
--- OUTSIDE RECORDS SUMMARY | 2024-07-25 15:50 | XMS_ITS | Encounter Summary ---
Author Organization [facility] Address [address] [place] [address] Phone Care Team Providers Care Loading Supervisor Name Role Phone Azucena Bradley MD Primary Care Provider Reason for Visit * Reason Comments Med Refill Encounter Details Date Type Department Care Team (Late st Contact Info) Description 12/25/2021 Refill [facility] [address] [place] [phone] Forrest Adamson MD Social History [...] on filedocumented in this encounter Care Teams Loading Supervisor Relationship Specialty Start Date End Date Azucena Bradley MD [address] [place] [address], [facility] 3 [place] [address] PCP - General Internal Medicine 01/22/24 documented as of this encounter
--- OUTSIDE RECORDS SUMMARY | 2024-07-25 15:50 | XMS_ITS | Encounter Summary ---
Author Organization [employer] Address [address] [facility] [address] 7t [place] [address] Care Team Providers Care Independent Beauty Consultant Name Role Phone Ally Ferreira MD Primary Care Pro vider Reason for Visit * Reason Comments Med Refill Encounter Details Date Type Department Care Team ([facility] st Contact Info) Description 05/01/2023 Refill [facility] MEDICINE [address] [place], [place] [phone] Jen Lozoya, [facility] [address] [place] [address] Social History Tobacco Use Types Packs/Day Years [...] AM EDT Office Visit [facility] MEDICINE [address] [place] [phone] Ally Ferreira MD [address] [place] [phone] documented as of this encounter Visit Diagnoses Not on filedocumented in this encounter Additional Health Concerns Assessment Noted Time PHQ-9 Depression Total Score: 0 08/11/19 9:11 AM EDT documented as of this encounter Care Teams Independent Beauty Consultant Relationship Specialty Start Date End Date Ally Ferreira MD [address] [place] [address] PCP - General Internal Medicine 07/25/22 documented as of this encounter
--- OUTSIDE RECORDS SUMMARY | 2024-07-25 15:50 | XMS_ITS | Encounter Summary ---
Author Organization [employer] Address [address] [facility] [address] 7[address] [place] [address] Care Team Providers Care Surfacer Name Role Phone Viri Wall Primary Care Provider [phone] Ally Ferreira MD Primary Care Pro vider Reason for Visit * Reason Comments Med Refill Encounter Details Date Type Department Care Team (Late st Contact Info) Description 06/06/2022 Refill [facility] MEDICINE 230 [place] [address] Adelaide Cano DO [address] [place] [address] Social History Tobacco Use Types Packs/Day Years [...] AM EST T/C placed to pt via [employer] Directional Surveyor Carlos #[id number]. 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 Advised will update provider. documented in this encounter Plan of Treatment Upcoming Encounters Date Type Department Care Team (Late st Contact Info) Description 09/02/2024 10:15 AM EDT Office Visit [facility] MEDICINE [address] [place] [address] Ally Ferreira MD [address] [place] [address] [phone] documented as of this encounter Visit Diagnoses Not on filedocumented in this encounter Care Teams Surfacer Relationship Specialty Start Date End Date Viri Wall FNP [address] [place] [address] [phone] PCP - General Family Medicine 06/06/22 07/24/22 Ally Ferreira MD [address] [place] [address] [phone] PCP - General Internal Medicine 07/25/22 documented as of this encounter
--- OUTSIDE RECORDS SUMMARY | 2024-07-25 15:50 | XMS_ITS ---
Demographics Address [address] [place] [address] Mobile Phone Home Phone Preferred Language Burkinan Marital Status Oriental Orthodox Affiliation Unknown Race White Ethnic Group Unknown Author Organization [facility] Address [address] [place] [address] Care Team Providers Care Manager Story Name Role Phone Ally Ferreira Primary Care Provider [phone] Transplant Episode Kidney Candidate [facility] ([place], [place]) [facility] waitlisted on 12/29/2019 Marked as Active on 03/21/2023 Kidney CoordinatorTadwain Velázquez RN Email: N/A Scores Score Value Updated Exceptions/Reas ons CPRA 0 07/21/2024 EPTS (Calc) 35 07/25/2024 Three Affiliated Organ Diagnosis Organ Primary Contributory Kidney Diabetes Mellitus - Type I Infection History Noted Survival Infection Treatment Organism Resolved 12/17/2019 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/02/2023 Care Team Name Role Phone Fax Email Sabina Velázquez RN Kidney Coordinator [phone] N/A Vinicio Harris MD Print Production Coordinator [phone] [email or web address] Residential Program Coordinator [phone] [email or web address] Forrest Adamson Referring Physician [phone] N/A Events Pre-Transplant Referred: 06/26/2019 Evaluation began: 12/01/2019 Committee: 12/03/2019 UNOS qualified: 07/15/2018 Center waitlisted: 12/29/2019 Dialysis History Dialysis History Start End Type Comments Center 07/15/2018 In-center Hemodialysis M/W/F [facility] D[facility] Center Information Center Phone Fax Address [facility] [phone] [place] [address] [address] SHANIQUE CONSTANTINO [id number]
--- OUTSIDE RECORDS SUMMARY | 2024-07-25 15:50 | XMS_ITS | Encounter Summary ---
Author Organization [facility] Address [address] [place] [address] Phone Care Team Providers Care Custom Miller Name Role Phone Azucena Bradley MD Primary Care Provider [phone] Reason for Visit * Reason Comments Med Refill Encounter Details Date Type Department Care Team (Late st Contact Info) Description 06/14/2021 Refill [facility] [address] [place] [address] Forrest Adamson MD Social History Tobacco [...] on filedocumented in this encounter Care Teams Custom Miller Relationship Specialty Start Date End Date Azucena Bradley MD [address] [place] [address], [facility] [address] [place] [address] PCP - General Internal Medicine 01/22/24 documented as of this encounter
--- OUTSIDE RECORDS SUMMARY | 2024-07-25 15:50 | XMS_ITS | Encounter Summary ---
Demographics Address [address] [place] [address] Mobile Phone Home Phone Preferred Language Thai Marital Status Rastafarian Affiliation Unknown Race White Ethnic Group Unknown Author Organization [facility] Address [address] [place] [address] Care Team Providers Care Dental Appliance Mechanic Name Role Phone Ally Ferreira Primary Care Provider [phone] Encounter Details Date Type Department Care Team (Late st Contact Info) Description 12/02/2019 Orders Only [facility] Nuclear Medicine [address] [place] [address] Shiva Duran MD [address] [place] [address] Social History Tobacco Use Types Packs/Day Years [...] Info) Description 02/05/2025 11:00 AM EDT Follow-Up [facility] Renal Transplant [address] [place] [address] Vinicio Harris MD [address] [place] [address] 02/05/2025 11:45 AM EDT Follow-Up [facility] Renal Transplant [address] [place] [address] 02/05/2025 12:30 PM EDT Social Work [facility] Renal Transplant [address] [place] [address] Michelet Swartz documented as of this encounter Visit Diagnoses Not on filedocumented in this encounter Care Teams Dental Appliance Mechanic Relationship Specialty Start Date End Date Ally Ferreira [address] [place] [address] PCP - General 02/04/24 documented as of this encounter
--- OUTSIDE RECORDS SUMMARY | 2024-07-25 15:50 | XMS_ITS | Encounter Summary ---
Author Organization [employer] Address [address] [place] [address] Care Team Providers Care Acting Manager Name Role Phone Viri Wall Primary Care Provider [phone] Ally Ferreira MD Primary Care Pro vider Reason for Visit * Reason Comments Med Refill Encounter Details Date Type Department Care Team (Late st Contact Info) Description 06/06/[address] [facility] MEDICINE [address] [place], [place] [phone] Name, MD Dain [address] [place] [address] Primary hypertension (Primary Dx) Social History Tobacco [...] [facility] [address] [place] [address] Ally Ferreira MD [address] [place], [place] [phone] documented as of this encounter Visit Diagnoses Diagnosis Primary hypertension- Primary Unspecified essential hypertension documented in this encounter Care Teams Acting Manager Relationship Specialty Start Date End Date Viri Wall FNP [address] [address] [phone] PCP - General Family Medicine 06/06/22 07/24/22 Ally Ferreira MD [address] [place] [address] [phone] PCP - General Internal Medicine 07/25/22 documented as of this encounter
--- OUTSIDE RECORDS SUMMARY | 2024-07-25 15:50 | XMS_ITS | Encounter Summary ---
Author Organization [employer] Address [address] [facility] 7 [place] [address] Care Team Providers Care Nurse Practitioner Physician Assistant Name Role Phone Ally Ferreira MD Primary Care Pro vider Reason for Visit * Reason Onset Date Comments c/b request 01/19/2023 Encounter Details Date Type Department Care Team ([facility] st Contact Info) Description 01/19/2023 Telephone [facility] MEDICINE [address] [place], [place] [phone] Ally Ferreira MD [address] [place] [address] c/b request Social History Tobacco Use Types [...] was from [facility] or from [facility]? No answer. Message was left to return call to the green team nurses. * Telephone Encounter - Jacinta Porras - 01/19/2023 1:45 PM EDT Tc from pt advising PCP pt was denied for kidney transplant. Please contact pt at [phone] documented in this encounter Plan of Treatment Upcoming Encounters Date Type Department Care Team (Late st Contact Info) Description 09/02/2024 10:15 AM EDT Office Visit [facility] MEDICINE [address] [place] [address] Ally Ferreira MD [address] [place] [address] documented as of this encounter Visit Diagnoses Not on filedocumented in this encounter Additional Health Concerns Assessment Noted Time PHQ-9 Depression Total Score: 0 08/11/19 9:11 AM EDT documented as of this encounter Care Teams Nurse Practitioner Physician Assistant Relationship Specialty Start Date End Date Ally Ferreira MD [address] [place] [id number] PCP - General Internal Medicine 07/25/22 documented as of this encounter
--- NOTE | 2024-07-25 15:52 | MHC.OFFVIS ---
Vital Signs 07/25/24 16:01 Height 5 ft 1 in Weight 151 lb 7.321 oz BMI 28.6 BP 94/64 Blood Pressure Location Rt brachial Position Sitting Pulse 86 Pulse Source Pulse Oximeter Pulse Oximetry (%) 98 Oxygen Delivery Method Room Air Intake Visit Reasons: Pump adjustment Intake Note: Patient present today for Type 1 DM. Last Diabetic Eye exam: 2023 Last Podiatry Visit: Patient states she was recently seen sometime this month. Random Glucose: 272 mg/dl HgA1C: 7.4% 07/16/2024 in Dialysis [place] Tally Clerk Required: No Accompanied by: Daughter Allergies icodextrin Allergy (Mild, Verified 08/07/24 11:39) Rash oxycodone Adverse Reaction (Severe, Verified 08/07/24 11:39) rash tramadol Adverse Reaction (Severe, Verified 08/07/24 11:39) rash CLOROXINE Allergy (Unknown, Uncoded 08/07/24 11:39) RASH HPI Comments Details: 33 year-old female today for follow-up visit, for diabetes type 1 management in the setting of end-stage renal disease. She was started on an omni pod earlier last year. Hgb A1C 07/25/24 %, 04/24/24 8% 12/08/23 8.1% This is down from July of 9.9% pre pump. She was last seen by myself 04/24/24 and has appt with cde today She has type 1 diabetes diagnosed at age 11. Diabetes has been complicated with diabetic nephropathy with end-stage renal disease and hemodialysis. She has diabetic neuropathy, hypertension dyslipidemia. The patient is anuric. She has been on hemodialysis Sunday and Fridays for several years.. She had a full cardiac workup at [facility] 2 years ago and has been on the transplant list at [facility]. saw optho 07/07 - no retinopathy per patient reports She will schedule through at [facility] Has neuropathy: Symptoms include numbness, tingling she is followed by Podiatry tingling much better since on pregalabin Last LDL 123 not on statin contol: IUD not planning for she would like to wait for transplant first seen at [facility] regulary has appt next month She recently changed from an omnipod to ilet pump and is doing much better with improved glycemic control [facility] Medical History (Updated 08/07/24 @ 13:27 by Tami Mcguire NP) Foot ulcer Asthma Dyspnea Pulmonary nodules Chronic allergic rhinitis Allergies Kidney failure ESRD (end stage renal disease) on dialysis Anemia HTN (hypertension) ESRD (end stage renal disease) 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 Hypoglycemia due to type 1 diabetes mellitus Hypertension Dyslipidemia Diabetic polyneuropathy associated with type 1 diabetes mellitus Diabetes type 1, uncontrolled ESRD (end stage renal disease) on dialysis ESRD (end stage renal disease) Surgical History History of hemodialysis Hx of amputation Hx of eye surgery Hx of section Family History Father Diabetes mellitus Mother Thyroid disease Pre-diabetes HTN (hypertension) Acute depression Arthritis Social History Household Members: Significant Other Household Members Other:: / - 6 y/o daughter Housing: Apartment Do you presently have visiting nurse or other home services: No Alcohol intake: never Patient Tobacco Use Status: Never used Tobacco service: No Current occupational status: disabled Physical Exam Vital Signs: Last Vital Signs Pulse 86 07/25/24 16:01 BP 94/64 07/25/24 16:01 Pulse Ox 98 07/25/24 16:01 Oxygen Delivery Method Room Air 07/25/24 16:01 BMI result Body Mass Index 28.6 Const Other: Absence of Cushingoid features. Absence of acromegalic features. Neck exam reveals nl size thyroid about 15 gms. No thyroid nodules palpable. Heart S1 S2, Reg R/R. No M/R G. Skin exam reveals absence of vitiligo or acanthosis nigricans. Results Reviewed Results Reviewed: Laboratory Last Values Glucose (Clinic) 272 mg/dL (60-115) H 07/25/24 16:07 Assessment & Plan Assessment & Plan (1) Diabetes type 1, uncontrolled: Code(s): E10.65 - Type 1 diabetes mellitus with hyperglycemia Category: Medical Plan: Type 1 diabetic with significant improvement in glycemic control since switching over to an ilet insulin pump. Hypoglycemia precautions reviewed The patient had an opportunity to ask questions regarding treatment plan. The patient expressed understanding and agreement with the above treatment plan. The patient is aware they should contact our office by phone for worsening glucose readings or for any low blood sugars which may warrant a change in diabetes medication. Compliance is encouraged with medications and any followup testing/consults which may have been ordered. Patient Instructions: Symptoms of DKA (diabetic ketoacidosis): early: frequent urination, dry mouth, fatigue, feeling ill, severe symptoms: ketones in the urine, abdominal pain, nausea, vomiting and weakness. It is important to hydrate with sugar free liquids every 15-30 minutes and bring the sugars down to normal levels. If you are moderate or severe with ketones or unable to bring glucose to less than 200, go to the emergency room. Troubleshooting after starting new pod or inserting new insulin set: Occlusion, adhesive tape sensitivity, redness Check BG 2 hours after site change Safety information: Importance of a backup plan, for manual injections, proper prescriptions and emergency supplies ketone strips, and rules for testing for ketones Patient was counseled that if she does not have an active sensor paired with her pump that she needs to manually enter her glucose readings every 4 hours her pump will stop operating. Coding Level of Care Code Est Pt Level 4 (99207) Complex EM visit Add On G2211 Diagnoses Diabetes type 1, uncontrolled E10.65
[2024-07-25 16:01] VITALS: BP 94/64; PULSE 86; O2SAT 98; BMI 28.6
[2024-07-25 16:21] LABS: Glucose, Whole Blood 272 mg/dL (60-115)
== END 2024-07-25 16:28 | disposition home or self-care (01) ==
LOC: HO.ENCR 15:47
PROVIDERS: PCP Student in an Organized Health Care Education/Training Program; Visit Provider Nurse Practitioner Adult Health
DX: E10.65 Type 1 diabetes mellitus with hyperglycemia (principal)
CPT/HCPCS: 99214; G2211

== ENCOUNTER → 2024-07-25 15:46 | Outpatient (BNVA) | payer MEDICARE, MEDICAID, SELFPAY | PROVIDERS: PCP Student in an Organized Health Care Education/Training Program; Visit Provider Nurse Practitioner Adult Health | DX: E10.65 Type 1 diabetes mellitus with hyperglycemia (principal); Z46.81 Encounter for fitting and adjustment of insulin pump; Z79.4 Long term (current) use of insulin | CPT/HCPCS: 82947; 99212 ==

== ENCOUNTER 2024-08-07 11:21 | Outpatient (AMB) | payer MEDICARE, MEDICAID, SELFPAY ==
--- NOTE | 2024-08-07 08:19 | A.OFFVIS_ITS ---
Vital Signs 08/07/24 11:30 Height 5 ft 1 in Weight 156 lb 8.451 oz BMI 29.6 BP 100/60 Blood Pressure Location Rt brachial Position Sitting Pulse 85 Pulse Source Pulse Oximeter Pulse Oximetry (%) 97 Intake Visit Reasons: DM Intake Note: Patient present today to follow up on Type 1 Diabetes Mellitus. Patient c/o of an open ulcer in her right foot, requesting to be seen in the wound care dept. Last Diabetic Eye exam: 06/2023 Last Podiatry Visit: 06/2023 Most Recent HgA1C: 7.4% 07/16/2024 in Dialysis Random Glucose: 299 mg/dL, Today Shank Cementer Hand Required: No Accompanied by: Daughter Allergies icodextrin Allergy (Mild, Verified 08/07/24 11:39) Rash oxycodone Adverse Reaction (Severe, Verified 08/07/24 11:39) rash tramadol Adverse Reaction (Severe, Verified 08/07/24 11:39) rash CLOROXINE Allergy (Unknown, Uncoded 08/07/24 11:39) RASH HPI Comments Details: 33 year-old female today for follow-up visit, for diabetes type 1 management in the setting of end-stage renal disease. She was started on an omni pod earlier last year. Hgb A1C 07/16/24 7.4%(in dialysis), 04/24/24 8% 12/08/23 8.1% This is down from July of 9.9% pre pump. She was last seen by myself 04/24/24 and has appt with cde today She has type 1 diabetes diagnosed at age 11. Diabetes has been complicated with diabetic nephropathy with end-stage renal disease and hemodialysis. She has diabetic neuropathy, hypertension dyslipidemia. The patient is anuric. She has been on hemodialysis Sunday and Fridays for several years.. She had a full cardiac workup at [facility] 2 years ago and has been on the transplant list at [facility]. saw optho 3/24 - no retinopathy per patient reports She will schedule through at [facility] Has neuropathy: Symptoms include numbness, tingling she is followed by Podiatry tingling much better since on pregalabin. She has a diabetic foot ulcer on her right heel, She was applying a cream prescribed by podiatry and felt a burning sensation, she now has an open area. Last LDL 123 1 year ago not on statin labs ordered by pcp contol: IUD not planning for she would like to wait for transplant first seen at [facility] regulary has appt next month Dexcom average glucose: 246 14 day continuous glucose monitor report reviewed Days with CGM data 80 % TIme in ranges: Forty-five % very high (above 250) 29 % high ?(181-250) 25 % in range ?(70-180] 1 % low (69-55) 0 % ?very low (below 54) Interpretation; readings consistently above target. She is entering in 65 carbs per day which she states his accurate. She does not always enter her carbs before the meal and subsequently has high glucose to 300 which do correct down after she had applies correction. Total daily dose of insulin 35.7 74% basal 26.3 units 26% 9.4 bolus She overrides insulin correction 70% of the time. Basal rate(s) (units/hour) : 12 AM? to 12 AM 1.25units / hr Bolus setting Insulin Carbohydrate Ratio (s) 12 AM? to 12 AM 1:6.0 New 5.5 Correction Factor / Sensitivity Factor 12 AM? to 12 AM? 1:30 Active Insulin Time:? 2.5 hours changed o 2.0 Target(s): 12 AM? to 12 AM 120 mg/dL new 110 Correction Threshold 12 AM? to 12 AM 120 mg/dL new [facility] Medical History (Updated 08/07/24 @ 13:27 by Tami Mcguire NP) Foot ulcer Asthma Dyspnea Pulmonary nodules Chronic allergic rhinitis Allergies Kidney failure ESRD (end stage renal disease) on dialysis Anemia HTN (hypertension) ESRD (end stage renal disease) 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 Hypoglycemia due to type 1 diabetes mellitus Hypertension Dyslipidemia Diabetic polyneuropathy associated with type 1 diabetes mellitus Diabetes type 1, uncontrolled ESRD (end stage renal disease) on dialysis ESRD (end stage renal disease) Surgical History History of hemodialysis Hx of amputation Hx of eye surgery Hx of section Family History Father Diabetes mellitus Mother Thyroid disease Pre-diabetes HTN (hypertension) Acute depression Arthritis Social History Household Members: Significant Other Household Members Other:: / - 6 y/o daughter Housing: Apartment Do you presently have visiting nurse or other home services: No Alcohol intake: never Patient Tobacco Use Status: Never used Tobacco service: No Current occupational status: disabled Physical Exam Vital Signs: Last Vital Signs Pulse 85 08/07/24 11:30 BP 100/60 08/07/24 11:30 Pulse Ox 97 08/07/24 11:30 BMI result Body Mass Index 29.6 Const Other: Absence of Cushingoid features. Absence of acromegalic features. Neck exam reveals nl size thyroid about 15 gms. No thyroid nodules palpable. Heart S1 S2, Reg R/R. No M/R G. Skin exam reveals absence of vitiligo or acanthosis nigricans. Visual exam of foot performed. No ulcerations or open lesions. No inter digit maceration or fissuring. No onychomycosis, no callouses. Sensation intact to monofilament exam. Vibratory sensation is normal with 128 Hz tuning fork. Right foot to toe amputation. Heel ulcer approximately 1 inch stage 3 no s/s infection, no purulence/redness Results Reviewed Results Reviewed: Laboratory Last Values Glucose (Clinic) 299 mg/dL (60-115) H 08/07/24 11:32 Assessment & Plan Assessment & Plan (1) Diabetes type 1, uncontrolled: Code(s): E10.65 - Type 1 diabetes mellitus with hyperglycemia Category: Medical Plan: 33-year-old type 1 diabetic with end-stage renal disease on HD awaiting kidney transplant, neuropathy with labile glucose on Omnipod insulin pump. The patient is consistently elevates after meals when she does not apply carbohydrates prior to the meal. She was asked to consistently do this and to try to enter her carbs 15-20 minutes before the meal. Insulin settings changed today to give her more preprandial insulin. (2) Foot ulcer: Code(s): L97.509 - Non-pressure chronic ulcer of other part of unspecified foot with unspecified severity Category: Medical Plan: She has a new foot ulcer on her right heel. She reports it started after applying a cream prescribed by Podiatry. She has covering it with a gauze daily. will refer to wound clinic Orders: Referrals Wound Care Referral E11.621 - Type 2 diabetes mellitus with foot ulcer, L97.509 - Non-pressure chronic ulcer of other part of unspecified foot with unspecified severity Patient Instructions: The patient was counseled to achieve a target A1C of 7% (154 avg). Fasting blood sugars should be 90-130 in the morning and less than 180 two hours after meals. Reviewed the relationship between poor diabetic control and the development of complications. Check your feet daily looking for any signs of infection, drainage, redness, ulceration and seek medical attention if this occurs. Break in shoes gradually and do not wear open-toed shoes or walk stocking footed or barefooted. Coding Level of Care Code Est Pt Level 4 (95753) Complex EM visit Add On G2211 Diagnoses Diabetes type 1, uncontrolled E10.65 Foot ulcer L97.509 Time Spent (min) 30 Comment Reviewing labs/provider notes, glucose sensor/pump reports, face to face, chart doc
[2024-08-07 11:30] VITALS: BP 100/60; PULSE 85; O2SAT 97; BMI 29.6
[2024-08-07 11:39] LABS: Glucose, Whole Blood 299 mg/dL (60-115)
--- OUTSIDE RECORDS SUMMARY | 2024-08-07 13:36 | XMS_ITS | Patient Health Record ---
Author Organization [facility] Address [address] [facility] [place] [address] Care Team Providers Care Delivery Motorcycle Driver Name Role Phone Dory Martin Unavailable [phone] Reason For Referral No Information Plan Of Treatment No Information Insurance Providers Payer Name Payer Address Payer Phone Subscriber Number Group Number Insured Name Patient Relationship to Insured Coverage Start Date Coverage End Date Medicare National [employer] [address] [place] [address] Natali Mtz Self - patient is the insured
--- OUTSIDE RECORDS SUMMARY | 2024-08-07 13:36 | XMS_ITS | Encounter Summary ---
Demographics Address [address] [place] [address] Mobile Phone Home Phone Preferred Language Malay Marital Status Episcopalian Affiliation Unknown Race White Ethnic Group Unknown Author Organization [facility] Address [address] [place] [address] Care Team Providers Care Chief Counsel Name Role Phone Ally Ferreira Primary Care Provider [phone] Encounter Details Date Type Department Care Team (Late st Contact Info) Description 02/22/2024 Orders Only [facility] Nuclear Medicine [address] [place] [address] [phone] Victor Manuel Corado MD PhD [address] [place], [place] [phone] Social History Tobacco Use Types Packs/Day Years [...] Info) Description 02/05/2025 11:00 AM EDT Follow-Up [facility] Renal Transplant [address] [place], [place] [phone] Vinicio Harris MD [address] [place], [place] [phone] 02/05/2025 11:45 AM EDT Follow-Up [facility] Transplant [address] [place] [address] 02/05/2025 12:30 PM EDT Social Work [facility] [address] [place] [address] Michelet Swartz documented as of this encounter Visit Diagnoses Not on filedocumented in this encounter Care Teams Chief Counsel Relationship Specialty Start Date End Date Ally Ferreira [address] [place] [address] PCP - General 02/04/24 documented as of this encounter
--- OUTSIDE RECORDS SUMMARY | 2024-08-07 13:36 | XMS_ITS | Clinical Summary ---
Author Organization 175 [facility] Address 175 [place] [address] Phone Care Team Providers Care Miller Head Name Role Phone Mt Hooker MD Primary Care Provider [phone] Allergies No known active allergies Medications CALCITRIOL [...] 1:30 PM EDT Office Visit Orthopedic Surgery [facility] [address] [phone] Siva Lino DPTristin Poorly controlled type 2 diabetes mellitus with neuropathy (CMS/HCC V24, CMS/HCC V28) (Primary Dx); Neuropathy; Callus; Localized edema; Hammertoes of both feet; Ulcer of right heel, with fat layer exposed (CMS/HCC V24, CMS/HCC V28) 06/17/2024 10:15 AM EST Office Visit Orthopedic Surgery [facility] [address] [phone] Siva Lino, DPM Controlled type 2 diabetes with neuropathy (CMS/HCC V24, CMS/HCC V28) (Primary Dx); Hammertoes of both feet; Dermatophytosis, nail; Ulcer of right heel, with fat layer exposed (CMS/HCC V24, CMS/HCC V28) 06/10/2024 10:00 AM EST Office Visit Orthopedic Surgery [facility] [address] [phone] Siva Lino A, DPM Controlled type 2 diabetes with neuropathy (CMS/HCC V24, CMS/HCC V28) (Primary Dx); Ulcer of right heel, with fat layer exposed (CMS/HCC V24, CMS/HCC V28); Non-pressure chronic ulcer of right ankle with fat layer exposed (CMS/HCC V24, CMS/HCC V28) 06/03/2024 10:15 AM EST Office Visit Orthopedic [facility] [address] [phone] Siva Lino, DPM Hammertoes of both feet (Primary Dx); Controlled type 2 diabetes with neuropathy (CMS/HCC V24, CMS/HCC V28); Ulcer of right heel, with fat layer exposed (CMS/HCC V24, CMS/HCC V28) from Last 3 Months Immunizations Name Administration Dates Next Due COVID-19 (Moderna/Spikevax) 12yo and older 01/26 Moderna SARS-CoV-2 COVID-19, mRNA, LNP-S, preservative free 07/09/2020,05/26/2020 Medical History Medical History Date Comments Kidney failure DX:Kidney failur e Diabetes mellitus ([facility] V24, [facility] V28) DX:Diabetes mellitus (HCC) Diabetic neuropathy ([facility] V24, [facility] V28) DX:Diabetic neuropathy ([facility]) Type 1 diabetes ([facility] V24, [facility] V28) DX:Type 1 diabetes ([facility]) [...] AM EDT Office Visit Orthopedic Surgery - [place] [address] [phone] Siva Lino DPM 175 [facility] [address] [place] [phone] Health Maintenance Due Date Last Done Comments [...] Health Maintenance Results * Hemoglobin A1c (02/27/2023) Pathologist [facility] Hemoglobin A1C 0.0 % Comment:no interpretation, a bstracted Blood Venous blood specimen / Unknown Result [facility] Provider LAB BLOOD ORDERABLES Araceli l Result * Annual BMP Blood Test (04/06/2022) Pathologist [facility] Annual BMP Blood Test abstracted [facility] Provider HEALTH MAINTENANCE Final Result * Hepatitis C Screening (11/30/2020) Pathologist [facility] Hepatitis C Screening abstracted [facility] Provider HEALTH MAINTENANCE Final Result from Last 3 Months or Most Recently Relevant to Health Maintenance Insurance MEDICAID - [place] MEDICARE Care Teams Miller Head Relationship Specialty Start Date End Date Mt Hooker MD [address] [place] [phone] PCP - General Internal Medicine 09/26/21
--- OUTSIDE RECORDS SUMMARY | 2024-08-07 13:36 | XMS_ITS | Encounter Summary ---
Author Organization [employer] Address 75 [facility] 7t [place] [address] Care Team Providers Care Canine Service Instructor Trainer Name Role Phone Ally Ferreira MD Primary Care Pro vider Encounter Details Date Type Department Care Team (Late st Contact Info) Description 07/23/2024 Telephone [facility] [address] [place], [place] [phone] Ally Ferreira MD [address] [place] [address] Social History Tobacco Use Types Packs/Day Years [...] Pt stated she is on her way. Pediatric Np advise [facility] hours. documented in this encounter Plan of Treatment Upcoming Encounters Date Type Department Care Team (Late st Contact Info) Description 09/02/2024 10:15 AM EDT Office Visit [facility]INE [address] [place] [address] [phone] Ally Ferreira MD [address] [place] [address] documented as of this encounter Visit Diagnoses Not on filedocumented in this encounter Additional Health Concerns Assessment Noted Time PHQ-9 Depression Total Score: 0 07/31/19 24 11:09 AM EDT documented as of this encounter Care Teams Canine Service Instructor Trainer Relationship Specialty Start Date End Date Ally Ferreira MD [address] [place], [place] [phone] PCP - General Internal Medicine 07/25/22 documented as of this encounter
--- OUTSIDE RECORDS SUMMARY | 2024-08-07 13:36 | XMS_ITS | Encounter Summary ---
Author Organization [facility] Address [address] [place] [address] Care Team Providers Care Forging Press Operator Name Role Phone Ally Ferreira Primary Care Provider [phone] Encounter Details Date Type Department Care Team (Late st Contact Info) Description 02/09/2021 Orders Only [facility] Nuclear Medicine [address] [place] [address] Shiva Duran MD [address] [place] [address] Social History Tobacco Use Types Packs/Day Years [...] Info) Description 02/05/2025 11:00 AM EDT Follow-Up [facility] Renal Transplant [address] [place] [address] Vinicio Harris MD [address] [place] [address] 02/05/2025 11:45 AM EDT Follow-Up [facility] Renal Transplant [address] [place] [address] 02/05/2025 12:30 PM EDT Social Work [facility] Renal Transplant [address] [place] [address] Michelet Swartz documented as of this encounter Visit Diagnoses Not on filedocumented in this encounter Care Teams Forging Press Operator Relationship Specialty Start Date End Date Ally Ferreira [address] [place] [address] PCP - General 02/04/24 documented as of this encounter
--- OUTSIDE RECORDS SUMMARY | 2024-08-07 13:36 | XMS_ITS | Encounter Summary ---
Author Organization [facility] Address [address] [place] [address] Phone Care Team Providers Care Deputy Fire Marshal Name Role Phone Azucena Bradley MD Primary Care Provider Reason for Visit * Reason Comments Med Refill Encounter Details Date Type Department Care Team (Late st Contact Info) Description 06/22/2022 Refill [facility] [address] [place] [address] Forrest Adamson MD Social History [...] on filedocumented in this encounter Care Teams Deputy Fire Marshal Relationship Specialty Start Date End Date Azucena Bradley MD [address] [place] [address], [facility] 3 [place] [address] PCP - General Internal Medicine 01/22/24 documented as of this encounter
--- OUTSIDE RECORDS SUMMARY | 2024-08-07 13:36 | XMS_ITS | Encounter Summary ---
Author Organization [employer] Address 75 [facility] 7 [place] [address] Care Team Providers Care Best Worker Name Role Phone Ally Ferreira MD Primary Care Pro vider Reason for Visit * Reason Onset Date Comments c/b request 01/19/2023 Encounter Details Date Type Department Care Team ([facility] st Contact Info) Description 01/19/2023 Telephone [facility] [address] [place], [place] [phone] Ally Ferreira MD [address] [place] [address] c/b request Social History Tobacco Use Types [...] transplant denial. Patient states it was at [facility] that it was denied, due to vascular problems. * Telephone Encounter - Yasmin Krishna RN - 01/23/2023 10:59 AM EDT Telephone call to regarding the following message from Dr. Perry : Please can you check with pt denial was from [facility] or from [facility]? No answer. Message was left to return call to the green team nurses. * Telephone Encounter - Jacinta Porras - 01/19/2023 1:45 PM EDT Tc from pt advising PCP pt was denied for kidney transplant. Please contact pt at [phone] documented in this encounter Plan of Treatment Upcoming Encounters Date Type Department Care Team (Late st Contact Info) Description 09/02/2024 10:15 AM EDT Office Visit [facility] [address] [place] [address] Ally Ferreira MD [address] [place] [address] documented as of this encounter Visit Diagnoses Not on filedocumented in this encounter Additional Health Concerns Assessment Noted Time PHQ-9 Depression Total Score: 0 08/11/19 9:11 AM EDT documented as of this encounter Care Teams Best Worker Relationship Specialty Start Date End Date Ally Ferreira MD [address] [place] [address] PCP - General Internal Medicine 07/25/22 documented as of this encounter
--- OUTSIDE RECORDS SUMMARY | 2024-08-07 13:36 | XMS_ITS ---
Demographics Address [address] [place] [address] Mobile Phone Home Phone Preferred Language Afghan Marital Status Caodaism Affiliation Unknown Race White Ethnic Group Unknown Author Organization [facility] Address [address] [place] [address] Care Team Providers Care Programming Specialist Name Role Phone Ally Ferreira Primary Care Provider [phone] Transplant Episode Kidney Candidate [facility] ([place], [place]) [facility] waitlisted on 12/29/2019 Marked as Active on 03/21/2023 Kidney CoordinatorTadwain Velázquez RN Email: N/A Scores Score Value Updated Exceptions/Reas ons CPRA 0 07/21/2024 EPTS (Calc) 35 08/07/2024 [place] Organ Diagnosis Organ Primary Contributory Kidney Diabetes Mellitus - Type I Infection History Noted Survival Infection Treatment Organism Resolved 12/17/2019 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 Implementation Lead [phone] [email or web address] Forrest Adamson Referring Physician [phone] N/A Events Pre-Transplant Referred: 06/26/2019 Evaluation began: 12/01/2019 Committee: 12/03/2019 UNOS qualified: 07/15/2018 Center waitlisted: 12/29/2019 Dialysis History Dialysis History Start End Type Comments Center 07/15/2018 In-center Hemodialysis M/W/F SRINI Kaur [facility] Information Center Phone Fax Address [facility] [phone] [place] [address] [address] SHANIQUE CONSTANTINO [address]
--- OUTSIDE RECORDS SUMMARY | 2024-08-07 13:36 | XMS_ITS | Encounter Summary ---
Demographics Address [address] [place] [address] Mobile Phone Home Phone Preferred Language Occitan Marital Status Restorationism Affiliation Unknown Race White Ethnic Group Unknown Author Organization [facility] Address [address] [place] [address] Care Team Providers Care Document Review Attorney Name Role Phone Ally Ferreira Primary Care Provider [phone] Encounter Details Date Type Department Care Team (Late st Contact Info) Description 12/02/2019 Orders Only [facility] Nuclear Medicine [address] [place] [address] Shiva Duran MD [address] [place] [address] Social History Tobacco Use Types Packs/Day Years [...] Info) Description 02/05/2025 11:00 AM EDT Follow-Up [facility] Renal Transplant [address] [place] [address] Vinicio Harris MD [address] [place] [address] 02/05/2025 11:45 AM EDT Follow-Up [facility] Renal Transplant [address] [place] [address] 02/05/2025 12:30 PM EDT Social Work [facility] Renal Transplant [address] [place] [address] Michelet Swartz documented as of this encounter Visit Diagnoses Not on filedocumented in this encounter Care Teams Document Review Attorney Relationship Specialty Start Date End Date Ally Ferreira [address] [place] [address] PCP - General 02/04/24 documented as of this encounter
--- OUTSIDE RECORDS SUMMARY | 2024-08-07 13:36 | XMS_ITS | Referral Summary ---
Demographics Address [address] [place] [address] Mobile Phone Home Phone Preferred Language Jordanian Marital Status Tenriism Affiliation Unknown Race White Ethnic Group Unknown Author Organization [facility] Address [address] [place] [address] Care Team Providers Care Professor Of Poultry Science Name Role Phone Ally Ferreira Primary Care Provider [phone] Encounters Date Type Department Care Team Description 07/10/2024 Telephone [facility] Transplant Department [address] [place] [address] Sabina Velázquez RN 06/20/2024 Orders Only [facility] Transplant Department [address] [place] [address] Sabina Velázquez RN ESRD (end stage renal disease) (Primary Dx); Pre-transplant evaluation for kidney transplant 06/20/2024 Telephone [facility] Transplant Department [address] [place] [address] [phone] Sabina Velázquez RN from Last 3 Months [...] 1 each 3 3 Active Dexcom G6 Electrical Electronics Engineers misc Use as directed. E10.65 1 each [...] Covid-19 Monovalent Vaccine, Moderna, mRNA, PF 07/09/2020,05/26/2020 [id number] 05/05/1993,02/22/1993,12/22/1992 Diphtheria, Tetanus Toxoids and Acellular Pertussis [...] 11:00 AM EDT Follow-Up [facility] Renal Transplant [address] [place] [address] Vinicio Harris MD [address] [place] [address] 02/05/2025 11:45 AM EDT Follow-Up [facility] Renal Transplant [address] [place] [address] 02/05/2025 12:30 PM EDT Social Work [facility] Renal Transplant [address] [place] [address] Michelet Swartz Procedures * Due to [place] state law, this organization might not be sharing negative HIV tests. Procedure Name Priority Date/Time Associated Diagnosis Comments HLA MONTHLY ANTIBODY IDENTIFICATION - CLASS I Routine 07/21/2024 10:17 AM EDT Pre-transplant evaluation for kidney transplant ESRD (end stage renal disease) ([facility]) HLA MONTHYLY ANTIBODY IDENTIFICATION - CLASS II Routine 07/21/2024 10:17 AM EDT Pre-transplant evaluation for kidney transplant ESRD (end stage renal disease) (HCC) HLA MONTHYLY ANTIBODY IDENTIFICATION - CLASS II [...] to Health Maintenance Results * Due to [place] state law, this organization might not be sharing negative HIV tests. * (ABNORMAL) POCT Glycosylated Hemoglobin (HGB A1C), interfaced (02/27/2023 1:05 PM EST) Hemoglobin A1C, POCT 10.6(H) <=5.6 % 02/27/2023 1:20 PM EST [facility] Comment: A1C Recommendation for Non- Adults with Diabetes: <7.0% ADA 2011 Standards of Medical Care in Diabetes Blood 02/27/2023 1:05 PM EST 02/27/2023 1:20 PM EST us Robert Meredith MD LAB POCT ORDERABLES - DEVICE Final Result [facility], POC [address] [place] [address], * (ABNORMAL) Basic Metabolic Panel, Outside Lab [...] NON-REACT JOSE RAFAEL 12/01/2020 8:37 AM EDT [facility] Signal To Cut-Off 0.02 <1.00 12/01/2020 8:37 AM EDT [employer] [facility] Comment: HCV antibody was non-reactive. There is no laboratory evidence of HCV infection. In most cases, no further action is required. However, if recent HCV exposure is suspected, a test for HCV RNA (test code 96409) is suggested. For additional information please refer to http://education.MedGRC/faq/CON05t6 (This link is being provided for informational/ educational purposes only.) Blood Structure of peripheral vein / Unknown Venipuncture / Unknown 11/30/2020 11:09 AM EDT 11/30/2020 11:33 AM EDT Narrative [facility] - 12/01/2020 8:37 AM EDT [facility] Received Date: Stefan Robbins MD LAB BLOOD ORDERABLES Final Result [facility] [address] [facility] 3rd Floor, [place] [address], [place] [phone] [facility] [address] [facility] 3rd Floor, [place] [address], [place] [phone] from Last 3 Months or Most Recently Relevant to Health Maintenance Insurance * Guarantor: Natali Mtz Account Type Relation to Patient Date of Phone Billing Address Personal/Family Self 1990 [address] [place] [address] MEDICARE [facility] * Guarantor: Natali Mtz Account Type Relation to Patient Date of Phone Billing Address Transplant Self 1990 [address] [place] [address] MEDICARE [facility] Advance Directives Documents on File Type Date Recorded Patient Harness Mender Expl anation Health Care Proxy 01/26/2023 10:42 AM 01/18/23 Health Care Proxy 12/11/2019 8:18 AM 11/30 Care Teams Professor Of Poultry Science Relationship Specialty Start Date End Date Ally Ferreira [address] [place] [address] PCP - General 02/04/24
--- OUTSIDE RECORDS SUMMARY | 2024-08-07 13:36 | XMS_ITS ---
Author Organization [facility] Address [address] [place] [address] Care Team Providers Care Corrugator Operator Helper Name Role Phone Dory Martin Unavailable [phone] Encounters Encounter Location Date Provider Diagnosis [facility] [address] [place] [address] 02/13/2023 Dory Martin Plan Of Treatment No Information Progress Notes * Mansoor MTZlDOB: 2 (33 yo F)Acc No.[id number]:02/13/2023 Progress Notes Patient:?Natali MTZ Provider:?Dory Martin DPM :1990???Age:32 Y???Sex:Female D ate:02/13/2023 [facility] Subjective: * Chief Complaints: * ??? * Medical History:? Objective: * Vitals:? Assessment: Plan: * Treatment: * Images: * The named appointment provid er may or may not be the originator of this progress note, and it is not deemed complete until electronically signed by the appointment provider. Sign off status: Pending * Provider:?Dory Martin DPM Date:? Generated for Enoc mckinney/Siri/Erickitting on:?08/07/2024 01:36 PM EDT
--- OUTSIDE RECORDS SUMMARY | 2024-08-07 13:36 | XMS_ITS | Encounter Summary ---
Author Organization [employer] Address [address] [place] [address] [facility] [place] [address] Care Team Providers Care Buttonholer Name Role Phone Ally Ferreira MD Primary Care Pro vider Reason for Visit * Reason Comments Med Change Request Encounter Details Date Type Department Care Team (Late Contact Info) Description 01/13/2023 Refill [facility] [address] [place] [address] [phone] Ally Ferreira MD [address] [place] [address] [phone] Social History Tobacco Use Types Packs/Day Years [...] 10:15 AM EDT Office Visit [facility] [address] [place] [address] [phone] Ally Ferreira MD [address] [place], [place] [phone] documented as of this encounter Visit Diagnoses Not on filedocumented in this encounter Additional Health Concerns Assessment Noted Time PHQ-9 Depression Total Score: 0 08/11/19 9:11 AM EDT documented as of this encounter Care Teams Buttonholer Relationship Specialty Start Date End Date Ally Ferreira MD [address] [place] [address] PCP - General Internal Medicine 07/25/22 documented as of this encounter
--- OUTSIDE RECORDS SUMMARY | 2024-08-07 13:36 | XMS_ITS | Encounter Summary ---
Author Organization [facility] Address [address] [place] [address] Phone Care Team Providers Care Box Worker Name Role Phone Azucean Bradley MD Primary Care Provider [phone] Reason for Visit * Reason Comments Med Refill Encounter Details Date Type Department Care Team (Late st Contact Info) Description 03/06/2021 Refill [facility] [address] [place] [phone] Forrets Adamson MD Social History Tobacco Use Types [...] on filedocumented in this encounter Care Teams Box Worker Relationship Specialty Start Date End Date Azucena Bradley MD [address] [place] [address], [facility] 3 [place] [address] PCP - General Internal Medicine 01/22/24 documented as of this encounter
--- OUTSIDE RECORDS SUMMARY | 2024-08-07 13:36 | XMS_ITS | Encounter Summary ---
Author Organization [facility] Address [address] [facility] [address] [place] [address] Phone Care Team Providers Care Correctional Agency Director Name Role Phone Azucena Bradley MD Primary Care Provider [phone] Reason for Visit * Reason Comments Med Refill Encounter Details Date Type Department Care Team ([facility] st Contact Info) Description 06/04/2023 Refill [facility] [address] [place] [phone] Wesley Pagan MD [address] [facility] [address] [place] [phone] Social History Tobacco Use Types Packs/Day Years [...] on filedocumented in this encounter Care Teams Correctional Agency Director Relationship Specialty Start Date End Date Azucena Bradley MD [address] [place] [address], Floor 3 [place] [address] PCP - General Internal Medicine 01/22/24 documented as of this encounter
--- OUTSIDE RECORDS SUMMARY | 2024-08-07 13:36 | XMS_ITS | Clinical Summary ---
Demographics Address [address] [place] [address] Mobile Phone Home Phone Preferred Language Kenyan Marital Status Gnosticist Affiliation Unknown Race White Ethnic Group Unknown Author Organization [facility] Address [address] [place] [address] Care Team Providers Care Senior Quantity Surveyor Name Role Phone Ally Ferreira Primary Care Provider [phone] Allergies Active Allergy Reactions Criticality Noted Date [...] 1 each 3 3 Active Dexcom G6 Net Developer Architect misc Use as directed. E10.65 1 each [...] Type Department Care Team Description 07/10/2024 Telephone [facility] Transplant Department [address] [place] [address] Sabina Velázquez, RN 06/20/2024 Orders Only [facility] Transplant Department [address] [place] [address] Sabina Velázquez, RN ESRD (end stage renal disease) (Primary Dx); Pre-transplant evaluation for kidney transplant 06/20/2024 Telephone [facility] Transplant Department [address] [place] [address] Sabina Velázquez, RN from Last 3 Months Immunizations Immunization Administration Dates Next Due Covid-19 Monovalent Vaccine, Moderna, mRNA, PF 07/09/2020,05/26/2020 [id number] 05/05/1993,02/22/1993,12/22/1992 Diphtheria, Tetanus Toxoids and Acellular Pertussis [...] Info) Description 02/05/2025 11:00 AM EDT Follow-Up [facility] Renal Transplant [address] [place] [address] Vinicio Harris MD [address] [place] [address] 02/05/2025 11:45 AM EDT Follow-Up [facility] Renal Transplant [address] [place] [address] 02/05/2025 12:30 PM EDT Social Work [facility] Renal Transplant [address] [place] [address] Michelet Swartz Health Maintenance Due Date Last [...] Additional history exists Procedures * Due to [place] state law, this organization might not be sharing negative HIV tests. Procedure Name Priority Date/Time Associated Diagnosis Comments HLA MONTHLY ANTIBODY IDENTIFICATION - CLASS I Routine 07/21/2024 10:17 AM EDT Pre-transplant evaluation for kidney transplant ESRD (end stage renal disease) ([facility]) HLA MONTHYLY ANTIBODY IDENTIFICATION - CLASS II Routine 07/21/2024 10:17 AM EDT Pre-transplant evaluation for kidney transplant ESRD (end stage renal disease) ([facility]) HLA MONTHYLY ANTIBODY IDENTIFICATION - CLASS II Routine 06/20/2024 11:40 AM EST ESRD (end stage renal disease) ([facility]) Pre-transplant evaluation for kidney transplant HLA MONTHLY [...] 10.6(H) <=5.6 % 02/27/2023 1:20 PM EST [facility], [facility] Comment: A1C Recommendation for Non- Adults with Diabetes: <7.0% ADA 2011 Standards of Medical Care in Diabetes Blood 02/27/2023 1:05 PM EST 02/27/2023 1:20 PM EST us Robert Meredith MD LAB POCT ORDERABLES - DEVICE Final Result [facility], POC [address] [place] [address], * (ABNORMAL) Basic Metabolic Panel, Outside Lab [...] NON-REACT JOSE RAFAEL 12/01/2020 8:37 AM EDT [facility] Signal To Cut-Off 0.02 <1.00 12/01/2020 8:37 AM EDT [facility] Comment: HCV antibody was non-reactive. There is no laboratory evidence of HCV infection. In most cases, no further action is required. However, if recent HCV exposure is suspected, a test for HCV RNA (test code 12622) is suggested. For additional information please refer to http://education.tarpipe/faq/KGF20u3 (This link is being provided for informational/ educational purposes only.) Blood Structure of peripheral vein / Unknown Venipuncture / Unknown 11/30/2020 11:09 AM EDT 11/30/2020 11:33 AM EDT Narrative [facility] - 12/01/2020 8:37 AM EDT [facility] Received Date: Stefan Robbins MD LAB BLOOD ORDERABLES Final Result [facility] [address] [facility] 3rd Floor, [place] [address], [place] [phone] [facility] [address], [place] [address], from Last 3 Months or Most Recently Relevant to Health Maintenance Insurance * Guarantor: Natali Mtz Account Type Relation to Patient Date of Phone Billing Address Personal/Family Self 1990 [address] [place] [address] MEDICARE * Guarantor: Mansoor Mtzl Account Type Relation to Patient Date of Phone Billing Address Transplant Self 1990 [address] [place] [address] [place] [id number] Advance Directives Documents on File Type Date Recorded Patient Sales Route Driver Expl anation Health Care Proxy 01/26/2023 10:42 AM 01/18/23 Health Care Proxy 12/11/2019 8:18 AM 11/30 Care Teams Senior Quantity Surveyor Relationship Specialty Start Date End Date Ally Ferreira [address] [place] [address] PCP - General 02/04/24
--- OUTSIDE RECORDS SUMMARY | 2024-08-07 13:36 | XMS_ITS | Encounter Summary ---
Author Organization [employer] Address [address] 7[address] [place] [address] Care Team Providers Care Terminal System Operator Name Role Phone Ally Ferreira MD Primary Care Pro vider Encounter Details Date Type Department Care Team (Late st Contact Info) Description 08/07/2024 Orders Only GENERIC EXTERNAL DATA DEPARTMENT Provider, [...] Visit [facility] [address] [place] [address] Ally Ferreira MD [address] [place], [place] [phone] documented as of this encounter Procedures Procedure Name Priority Date/Time Associated Diagnosis Comments GLUCOSE, WHOLE BLOOD Routine 08/07/2024 11:32 AM EDT documented in this encounter Results * (ABNORMAL) Glucose, Whole Blood (08/07/2024 11:32 AM EDT) Glucose, Whole Blood 299(H) 60 - 115 mg/dL [facility] Comment:METER #: [id number] 5Testing performed in the Endocrinology Department [address] , [address], [facility]. 08/07/2024 11:3 2 AM EDT 08/07/2024 11:39 AM EDT us Generic External Data Provider LAB BLOOD ORDERAB LES Final Result [facility] [address] [place] [address] [phone] documented in this encounter Visit Diagnoses Not on filedocumented in this encounter Additional Health Concerns Assessment Noted Time PHQ-9 Depression Total Score: 0 07/31/19 24 11:09 AM EDT documented as of this encounter Care Teams Terminal System Operator Relationship Specialty Start Date End Date Ally Ferreira MD [address] [place] [address] PCP - General Internal Medicine 07/25/22 documented as of this encounter
--- OUTSIDE RECORDS SUMMARY | 2024-08-07 13:36 | XMS_ITS | Encounter Summary ---
Author Organization [facility] Address [address] [facility] [address] [place] [address] Phone Care Team Providers Care Finished Stock Inspector Name Role Phone Azucena Bradley MD Primary Care Provider [phone] Reason for Visit * Reason Comments Med Refill Encounter Details Date Type Department Care Team (Late st Contact Info) Description 09/02/2023 Refill [facility] [address] [place] [phone] Paul Brothers MD [address] [facility] [address] [place] [phone] Social History Tobacco Use Types Packs/Day Years [...] on filedocumented in this encounter Care Teams Finished Stock Inspector Relationship Specialty Start Date End Date Azucena Bradley MD [address] [place] [address], Floor [address] [place] [address] PCP - General Internal Medicine 01/22/24 documented as of this encounter
--- OUTSIDE RECORDS SUMMARY | 2024-08-07 13:36 | XMS_ITS | Encounter Summary ---
Author Organization [facility] Address [address] [place] [address] Care Team Providers Care Roadability Machine Operator Name Role Phone Ally Ferreira Primary Care Provider [phone] Encounter Details Date Type Department Care Team (Late st Contact Info) Description 01/11/2021 Orders Only [facility] Nuclear Medicine [address] [place] [address] Shiva Duran MD [address] [place] [address] Social History Tobacco Use Types Packs/Day Years [...] Info) Description 02/05/2025 11:00 AM EDT Follow-Up [facility] Renal Transplant [address] [place] [address] Vinicio Harris MD [address] [place] [address] 02/05/2025 11:45 AM EDT Follow-Up [facility] Renal Transplant [address] [place] [address] 02/05/2025 12:30 PM EDT Social Work [facility] Renal Transplant [address] [place] [address] Michelet Swartz documented as of this encounter Visit Diagnoses Not on filedocumented in this encounter Care Teams Roadability Machine Operator Relationship Specialty Start Date End Date Ally Ferreira [address] [place] [address] PCP - General 02/04/24 documented as of this encounter
--- OUTSIDE RECORDS SUMMARY | 2024-08-07 13:36 | XMS_ITS | Encounter Summary ---
Author Organization [facility] Address [address] [place] [address] Care Team Providers Care Braze Operator Name Role Phone Ally Ferreira Primary Care Provider [phone] Encounter Details Date Type Department Care Team (Late st Contact Info) Description 05/07/2023 Orders Only [facility] Nuclear Medicine [address] [place] [address] Shiva Duran MD [address] [place] [address] Social History Tobacco Use Types Packs/Day Years [...] Info) Description 02/05/2025 11:00 AM EDT Follow-Up [facility] Renal Transplant [address] [place] [address] Vinicio Harris MD [address] [place] [address] 02/05/2025 11:45 AM EDT Follow-Up [facility] Renal Transplant [address] [place] [address] 02/05/2025 12:30 PM EDT Social Work [facility] Renal Transplant [address] [place] [address] Michelet Swartz documented as of this encounter Visit Diagnoses Not on filedocumented in this encounter Care Teams Braze Operator Relationship Specialty Start Date End Date Ally Ferreira [address] [place] [address] PCP - General 02/04/24 documented as of this encounter
--- OUTSIDE RECORDS SUMMARY | 2024-08-07 13:37 | XMS_ITS | Clinical Summary ---
Author Organization [facility] Address [address] [place] [phone] Phone Care Team Providers Care Book Or Script Editor Name Role Phone Azucena Bradley MD Primary Care Provider [phone] Medications losartan (COZAAR) 50 MG tablet TAKE [...] 07/18/2024 Treatment [facility] [address] [place] [phone] Atul Burton MD End stage renal disease; Dependence on renal dialysis 07/16/2024 Treatment [facility] [address] [phone] Atul Burton MD End stage renal disease; Dependence on renal dialysis 07/07/2024 Treatment [facility] [address] [phone] Atul Burton MD End stage renal disease; Dependence on renal dialysis 07/02/2024 Treatment [facility] [address] [address] Atul Burton MD End stage renal disease; Dependence on renal dialysis 06/30/2024 Treatment [facility] [address] [address] Atul Burton MD End stage renal disease; Dependence on renal dialysis 06/18/2024 Treatment [facility] [address] [phone] Atul Burton MD End stage renal disease; Dependence on renal dialysis 06/13/2024 Treatment [facility] [address] [address] Atul Burton MD End stage renal disease; Dependence on renal dialysis 05/28/2024 Treatment [facility] [address] [address] Atul Burton MD 05/26/2024 Treatment [facility] [address] [phone] Atul Burton MD 05/21/2024 Orders Only [facility] [address] [phone] Atul Burton MD 05/19/2024 Treatment [facility] [address] [address] Atul Burton MD 05/16/2024 Treatment [facility] [address] [address] Atul Burton MD 05/14/2024 Treatment [facility] [address] [phone] Atul Burton MD from Last 3 Months [...] Foot Exam 05/17/2020 Diabetes: Hemoglobin A1C 10/15/2024 025, 04/23/2024, 09/06/2023, Additional history exists Influenza Vaccine (Season Ended) 2024 01/11/2023, 01/20/2015, 01/30/2013, Additional history exists Pneumococcal Vaccine: 50+ Years Discontinued 04/26/2023, 08/21/2018, 08/02/2018, Additional history exists Pneumococcal Vaccine: Peds ( 0 to 5 Years) and At-Risk Patients (6 to 49 Years) Completed 04/26/2023, 08/21/2018, 08/02/2018, Additional history exists Procedures Procedure Name Priority Date/Time Associated Diagnosis Comments HEMOGLOBIN Routine 07/30/2024 3:00 AM EDT LIH (HC) Routine 07/30/2024 3:00 AM EDT CALCIUM PHOSPHORUS PRODUCT, ADJUSTED (HC) Routine 07/30/2024 3:00 AM EDT PROTEIN, TOTAL, SERUM Routine 07/16/2024 3:00 AM [...] AND DIFFERENTIAL Routine 05/21/2024 3:00 AM EST from Last 3 Months Results * LIH (07/30/2024 3:00 AM EDT) Only the most recent of6 resultswithin the time period is included. Lipemia Normal Normal [facility] Icterus Normal Normal [facility] Hemolysis Normal Normal [facility] 07/30/2024 3:00 AM EDT 07/31/2024 12:41 PM EDT us Atul Burton MD LAB [id number] SOLICITED RESULTS Final Result [facility] [address] [place] [address] * (ABNORMAL) Calcium Phosphorus Product, Adjusted (07/30/2024 3:00 AM EDT) Only the most recent of4 resultswithin the time period is included. Albumin 4.2 3.6 - 5.4 g/dL [facility] Calcium 9.2 8.6 - 10.3 mg/dL [facility] Phosphorus, Serum 9.0(H) 2.5 - 5.0 mg/dL [facility] Ca*PO4 82.8(A) <55.0 mg2/dL2 [facility] Calcium, Adjusted Total 9.2 8.6 - 10.3 mg/dL [facility] CA*PO4 CORRCTD 82.8(A) <55.0 mg2/dL2 [facility] 07/30/2024 3:00 AM EDT 07/31/2024 12:41 PM EDT Atul Burton MD LAB [id number] SOLICITED RESULTS Final Result Performing Organization Address [facility] Co de Phone Number [facility] [address] [place] [address] * (ABNORMAL) Hemoglobin (07/30/2024 3:00 AM EDT) Only the most recent of5 resultswithin the time period is included. Pathologist [facility] Hgb 10.0(L) 11.2 - 15.7 g/dL [facility] Hemoglobin x 3 30.0(L) 33.6 - 47.1 g/dL [facility] 07/30/2024 3:00 AM EDT 07/31/2024 12:54 PM EDT Atul Burton MD LAB BLOOD ORDERABLES Final Re sult Performing Organization Address [facility] de Phone Number [facility] [address] [place] [address] * (ABNORMAL) Kt/V Natural Log, URR (07/16/2024 3:00 AM EDT) Only the most recent of3 resultswithin the time period is included. Pathologist [facility] Treatment Time 226 min [facility] Pre-Weight, lb 71.8 kg [facility] Post-Weight, lb 69.2 kg [facility] Ultrafiltration Rate 10 <=13 mL/kg/hr [facility] Comment: Recommend achieving Ultrafiltration Rate (UFR) <=10 mL/kg/hr References: Naomy BRITO et al. Kidney Int. 2010; 79(2):250-257 BUN 70(H) 7 - 25 mg/dL [facility] BUN Post Dialysis 16 7 - 25 mg/dL [facility] UREA REDUCTION RATIO (%) 77 >=65 % [facility] Kt/V Natural Log 1.74 >=1.2 [facility] 07/16/2024 3:00 AM EDT 07/18/2024 4:57 PM EDT Atul Burton MD LAB [id number] SOLICITED RESULTS Final Result Performing Organization Address [facility] de Phone Number [facility] [address] [place] [address] * (ABNORMAL) TSAT (07/16/2024 3:00 AM EDT) [...] ORDERABLES Final Re sult Performing Organization Address [facility] de Phone Number [facility] [address] [place] [address] * (ABNORMAL) CBC and Differential (07/16/2024 3:00 [...] ORDERABLES Final Re sult Performing Organization Address [facility] de Phone Number [facility] [address] [place] [address] * ALT (07/16/2024 3:00 AM EDT) Only the most recent of3 resultswithin the time period is included. ALT (SGPT) 14 10 - 49 U/L [facility] 07/16/2024 3:00 AM EDT 07/18/2024 5:47 PM EDT Atul Burton MD LAB BLOOD ORDERABLES Final Re sult Performing Organization Address [facility] de Phone Number [facility] [address] [place] [address] * AST (07/16/2024 3:00 AM EDT) Only the most recent of3 resultswithin the time period is included. AST (SGOT) 17 <34 U/L [facility] 07/16/2024 3:00 AM EDT 07/18/2024 5:47 PM EDT Atul Burton MD LAB BLOOD ORDERABLES Final Re sult Performing Organization Address [facility] de Phone Number [facility] [address] [place] [address] * Protein, total (07/16/2024 3:00 AM EDT) Only the most recent of3 resultswithin the time period is included. Total Protein 7.9 6.4 - 8.9 g/dL [facility] 07/16/2024 3:00 AM EDT 07/18/2024 5:47 PM EDT Atul Burton MD LAB BLOOD ORDERABLES Final Re sult Performing Organization Address [facility] Co de Phone Number [facility] [address] [place] [address] * (ABNORMAL) Alkaline phosphatase (07/16/2024 3:00 AM EDT) Only the most recent of3 resultswithin the time period is included. Alkaline Phosphatase 125(H) 46 - 116 U/L [facility] 07/16/2024 3:00 AM EDT 07/18/2024 5:47 PM EDT Atul Burton MD LAB BLOOD ORDERABLES Final Re sult Performing Organization Address [facility] de Phone Number [facility] [address] [place] [address] * PTH, Intact (07/16/2024 3:00 AM EDT) PTH, Intact 364 160 - 721 pg/mL [facility] Comment: Suggested (KDIGO) ESRD maintenance range is two to nine times the upper normal limit (80.1 pg/mL) for the laboratory. 07/16/2024 3:00 AM EDT 07/18/2024 5:47 PM EDT Atul Burton MD LAB BLOOD ORDERABLES Final Re sult Performing Organization Address [facility] Co de Phone Number [facility] [address] [place] [address] * Magnesium (07/16/2024 3:00 AM EDT) Only the most recent of3 resultswithin the time period is included. Magnesium 2.6 1.9 - 2.7 mg/dL [facility] 07/16/2024 3:00 AM EDT 07/18/2024 5:47 PM EDT Atul Burton MD LAB BLOOD ORDERABLES Final Re sult Performing Organization Address [facility] de Phone Number [facility] [address] [place] [address] * (ABNORMAL) Lactate dehydrogenase (07/16/2024 3:00 AM EDT) Only the most recent of3 resultswithin the time period is included. LDH 417(H) 120 - 246 U/L [facility] 07/16/2024 3:00 AM EDT 07/18/2024 5:47 PM EDT Atul Burton MD LAB BLOOD ORDERABLES Final Re sult Performing Organization Address [facility] de Phone Number [facility] [address] [place] [address] * (ABNORMAL) Hemoglobin A1c (07/16/2024 3:00 AM [...] Final Re sult [facility] [address] [place] [address] * (ABNORMAL) Glucose, random (07/16/2024 3:00 AM EDT) Only the most recent of3 resultswithin the time period is included. Glucose 138(H) 74 - 109 mg/dL [facility] 07/16/2024 3:00 AM EDT 07/18/2024 5:47 PM EDT Atul Burton MD LAB BLOOD ORDERABLES Final Re sult Performing Organization Address [facility] Co de Phone Number [facility] [address] [place] [address] * (ABNORMAL) Ferritin (07/16/2024 3:00 AM EDT) Only the most recent of3 resultswithin the time period is included. Ferritin 1,075(H) 10 - 291 ng/mL [facility] 07/16/2024 3:00 AM EDT 07/18/2024 5:47 PM EDT Atul Burton MD LAB BLOOD ORDERABLES Final Re sult Performing Organization Address [facility] Co de Phone Number [facility] [address] [place] [address] * (ABNORMAL) Creatinine, serum (07/16/2024 3:00 AM EDT) Only the most recent of3 resultswithin the time period is included. Creatinine 11.13(H) 0.55 - 1.02 mg/dL [facility] 07/16/2024 3:00 AM EDT 07/18/2024 5:47 PM EDT Atul Burton MD LAB BLOOD ORDERABLES Final Re sult Performing Organization Address [facility] Co de Phone Number [facility] [address] [place] [address] * (ABNORMAL) Bilirubin, total (07/16/2024 3:00 AM EDT) Only the most recent of3 resultswithin the time period is included. Total Bilirubin <0.2(L) 0.3 - 1.2 mg/dL [facility] 07/16/2024 3:00 AM EDT 07/18/2024 5:47 PM EDT us Atul Burton MD LAB BLOOD ORDERABLES Final Re sult [facility] [address] [place] [address] * (ABNORMAL) Lipid panel (07/16/2024 3:00 AM [...] ORDERABLES Final Re sult Performing Organization Address [facility] de Phone Number [facility] [address] [place] [address] * (ABNORMAL) Electrolyte panel (07/16/2024 3:00 AM [...] ORDERABLES Final Re sult Performing Organization Address [facility] de Phone Number [facility] [address] [place] [address] * (ABNORMAL) Phosphorus (06/30/2024 3:00 AM EDT) Only the most recent of2 resultswithin the time period is included. Phosphorus, Serum 10.1(H) 2.5 - 5.0 mg/dL [facility] 06/30/2024 3:00 AM EDT 07/01/2024 12:12 PM EDT Atul Burton MD LAB BLOOD ORDERABLES Final Re sult Performing Organization Address [facility] de Phone Number [facility] [address] [place] [address] from Last 3 Months Insurance Medicaid [place] Medicare Medicaid [place] Medicare Care Teams Book Or Script Editor Relationship Specialty Start Date End Date Azucena Bradley MD [address] [place] [address], Floor [address] [place] [address] PCP - General Internal Medicine 01/22/24
--- OUTSIDE RECORDS SUMMARY | 2024-08-07 13:37 | XMS_ITS | Encounter Summary ---
Author Organization [facility] Address [address] [place] [address] [place] [address] Phone Care Team Providers Care Roll Capper Name Role Phone Azucena Bradley MD Primary Care Provider Reason for Visit * Reason Comments Med Refill Encounter Details Date Type Department Care Team (Late st Contact Info) Description 12/25/2021 Refill [facility] [address] [place] [address] [place] [phone] Forrest Adamson MD Social History [...] on filedocumented in this encounter Care Teams Roll Capper Relationship Specialty Start Date End Date Azucena Bradley MD [address] [place] [address], [facility] [address] [place] [address] PCP - General Internal Medicine 01/22/24 documented as of this encounter
--- OUTSIDE RECORDS SUMMARY | 2024-08-07 13:37 | XMS_ITS | Clinical Summary ---
Author Organization [employer] Address [address] [place] [address] Care Team Providers Care Product Development Worker Name Role Phone Ally Ferreira MD [...] tablet 1 023 Active [facility] Saline Nasal [place] 0.65 % nasal spray ADMINISTER 1 SPRAY [...] tablet 1 02/29/2 024 Active Continuous Glucose Agricultural Economics Teacher (Dexcom G6 green ware caster) device Use as directed. E10.65 Active Fiasp [...] 2 Active Insulin Disposable Pump (Omnipod 5 YreQ3D4 Pods Gen 5) misc 1 each every [...] with lunch, and with evening meal. Active NIFEdipine XL (Procardia XL) 90 MG 24 hr tabletIndicatio ns:Hypertension , unspecified type TAKE 1 TABLET BY MOUTH EVERY MORNING. SWALLOW WHOLE. 90 tablet Active neomycin-bacitr acin-polymyxin (Neosporin) 5-400-5000 ointment Apply topically 2 times daily. 14.2 g Active pregabalin (Lyrica) 25 MG capsule TAKE 1 CAPSULE (25 MG) BY MOUTH 2 TIMES DAILY. 60 capsule Active NIFEdipine XL (Procardia XL) 90 MG 24 hr tabletIndicatio ns:Hypertension , unspecified type TAKE 1 TABLET BY MOUTH IN THE MORNING DO NOT CRUSH, CHEW, OR SPLIT. 90 tablet 1 024 2024 Discontinued pregabalin (Lyrica) 25 MG capsule Take 1 capsule (25 mg) by mouth 2 times daily. 60 capsule 025 2024 Discontinued Active Problems Problem Noted Date [...] possible transplant in the future would like mine deputy to evaluate pt -referred today Seasonal allergies 01/11/2023 Assessment & Plan (01/11/2023 7:58 PM EDT): Reports seasonal allergies symptoms -px ocean spray,cetirizine 5 mg max 3 times a week Anemia 01/11/2023 Assessment & Plan (01/11/2023 8:03 PM EDT): 07/2022 Hb 9.9, AEC 597 Anemia from chronic dx f w electrical design technologist -states getting tx w electrical design technologist- removed from iron pills Peripheral vascular disorder [...] reports to be following with vascular at [facility] --- ---- requested record to [...] and exercise,discussed healthy life style -to see chemical test engineer referred by her endoc Abnormal EKG 08/10/2022 Assessment & Plan (01/11/2023 7:44 PM EDT): -EKG 07/2022 showed now acute ischemic findings there is QTC prolonged to 491 but noted in the past as well -states was seen by cards before unsure reason but w no major findings -found inconclusive stress test done in 2020 -Per pt has been seen by cards at [facility] -sounds possible was evaluated by cards in [...] x1 , HPV x3, hep B x3-immune, [id number] x2 and later p13 in 2018 -will [...] visit , HPV x3, hep B x3, [id number] x2 and later p13 in 2018 ,MMRx2,varicellax2 -will discuss about Contraception at her next apt -there is a note about cirrhosis hx??? -f w GI--has f up apt w GI in 11/2022-Will discuss about this w pt at her next apt ASCUS of cervix with negative high risk HPV 04/2 10/2022 Assessment & Plan (08/10/2022 1:00 PM EDT): [...] for self PLAN: 1. Follow up with [facility]: Not recommended for follow-up 2. 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 --px by her electrical design technologist --advised pt to follow w her specialist to confirm dose of med Assessment & Plan (08/10/2022 12:41 PM EDT): BP at home per pt <140/90 Stopped hydralazine by her electrical design technologist for hypotensive episodes after HD Currently denies [...] losartan ? -all meds refilled by her electrical design technologist ,states dont need any meds refilled -f BP at her next apt -advised to check at home and bring readings Hyperlipidemia 09/06/2012 Proteinuria 01/09/2012 03/07/2023 DM (diabetes mellitus), type 1 with renal compli cations 04/16/1958 Assessment & Plan (01/11/2023 8:05 PM EDT): dxed w DM1 at age 11 y of age c/w nephropathy -ESRD on HD complicated w hypoglycemic events f w manager academic -Dr Morro Amor on novolog SS ( 6 to 8 u TID)and lantus 18 u HS Hb1AC capillary today is 12.3<---12, LDL 86,CBG elevated today at 235 -liquor store manager referred today -opthalmo has apt for 05/2023 -sent glucose tab-before and would discuss about gluconate at next visit x emergency -continue care w her manager academic -will hold on doing Changes per pt [...] HD complicated w hypoglycemic events f w manager academic -Dr Morro Amor on novolog SS ( 6 to 8 u TID)and lantus 10 u HS --got today records of her last visit w endo in 07/2022 Hb1AC capillary 12 today --from last endo note had hb1AC in 07/2022 10.9? -liquor store manager referred already by her manager academic -pd to abigail apt -opthalmo referral today Pt has continuous capillary glucose check marking bw 55 to 400s ----pt takes her readings to her endo office to do changes in meds -to take tomorrow to endo's office -Pd to see a account supervisor and chemical test engineer referred by her manager academic ----pt recently got the CGM by her [...] Encounters Date Type Department Care Team Description 08/07/2024 Orders Only GENERIC EXTERNAL DATA DEPARTMENT Provider, Generic External Data 07/30/2024 Refill [facility] [address] [place] [address] Name, MD Dain 07/25/2024 Orders Only GENERIC EXTERNAL DATA DEPARTMENT Provider, Generic External Data 07/23/2024 5:20 PM EDT Office Visit [facility] [address] Kaur Hernandez MD Ulcer of right foot with fat layer exposed (CMS/HCC) (Primary Dx) 07/23/2024 Telephone [facility] [place] [address] Ally Ferreira MD 07/17/2024 Orders Only GENERIC EXTERNAL DATA DEPARTMENT Provider, Generic External Data 07/14/2024 Refill [facility] [place] [address] Ally Ferreira MD Hypertension, unspecified type 06/27/2024 Population Health Risk Score [facility] () Department [address] [place] [phone] Provider, Population Health Generic 06/26/2024 Orders Only GENERIC EXTERNAL DATA DEPARTMENT Provider, Generic External Data 06/23/2024 Telephone [facility] [place] [address] Ally Ferreira MD August recalls 06/03/2024 Refill [facility] [place] [address] Ally Ferreira MD 05/30/2024 11:00 AM EST Telemedicine [facility] [place] [address] Randi Marcelino PharmD Type 1 diabetes mellitus with chronic kidney disease on chronic dialysis ([facility]) (Primary Dx); Hypertension, unspecified type; Hyperlipidemia, unspecified hyperlipidemia type 05/13/2024 10:30 AM EST Office Visit [facility] [place] [address] Rosy Dawson ANP Hospital discharge follow-up (Primary Dx); Hyperkalemia; Type 1 diabetes mellitus with chronic kidney disease on chronic dialysis (CMS/HCC); Arm DVT (deep venous thromboembolism), acute, right ([facility]/HCC); ESRD on hemodialysis ([facility]/HCC); Elevated brain natriuretic peptide (BNP) level 05/13/2024 Travel 05/12/2024 Telephone [facility] [place] [address] Ally Ferreira MD from Last 3 Months [...] Description 09/02/2024 10:15 AM EDT Office Visit [facility] [address] [place] [phone] Ally Ferreira MD [address] [place] [address] Health Maintenance Due Date Last Done Comments Alcohol/Substance Use Screening 2003 Family Planning (PISQ) 09/09/2006 Diabetes: Hemoglobin A1C 12/07/2023 024, 04/26/2023, 01/11/2023, Additional history exists Eye Exam 06/18/2024 06/19/2023, 03/0 08/2023, 06/19/2023, Additional history exists SDOH Screening 07/18/2024 07/19/2023 Depression Screening 07/30/2024 07/31/2023, 07/31/19 24 Lipid Panel 09/05/2024 09/06/2023, 04/0 11/2023, 08/11/2022, Additional history exists Diabetes: Foot [...] WHOLE BLOOD Routine 08/07/2024 11:32 AM EDT GLUCOSE, WHOLE BLOOD Routine 07/25/2024 4:07 PM EDT XR FOOT 3+ VIEWS RIGHT Routine 1:06 PM EDT Ulcer of right foot with fat layer exposed (CMS/HCC) WOUND CARE Routine 07/23/2024 5:51 PM EDT Ulcer of right foot with fat layer exposed (CMS/HCC) RAST ALLERGEN (NON ORDERABLE) Routine 07/17/2024 11:19 AM EDT RESPIRATORY ALLERGY PROFILE REGION I Routine 07/17/2024 [...] Maintenance Results * (ABNORMAL) Glucose, Whole Blood (08/07/2024 11:32 AM EDT) Only the most recent of3 resultswithin the time period is included. Glucose, Whole Blood 299(H) 60 - 115 mg/dL [facility] Comment:METER #: [id number] 5Testing performed in the Endocrinology Department [address], [place]. 08/07/2024 11:3 2 AM EDT 08/07/2024 11:39 AM EDT us Generic External Data Provider LAB BLOOD ORDERAB LES Final Result [facility] [address] [place] [address] [phone] * XR Foot 3+ Views Right (07/24/2024 1:06 PM EDT) Anatomical Region Laterality Modality Lower Extremities, Foot Right Radiogra phic Imaging 07/24/2024 1:06 PM EDT Narrative 07/24/2024 3:30 PM EDT ? [facility] ?[address] ?[place] [phone] ?XRay Report ? Signed ? Patient: Smith,Natali L ?MR#: [id number] ?? 0620 ? : 1990 ?Acct:[id number] ? Age/Sex: 33 / F ?ADM Date: 07/24/24 ? Loc: HO.XRAY ? Attending Dr: Kaur Hernandez MD ? Ordering Physician: Kaur Hernandez MD ?? Date of Service: 07/24/24 ?? Procedure(s): XR foot RT min 3V ?? Accession Number(s): [id number] ? cc: Kaur Hernandez MD; Ally Ferreira [...] DD/ 1306 ? TD/TT: 07/24/24 1318 ? Field Mechanical Meter Tester: ? Procedure Note Gregorio, Image - 07/24/2024 [place] [address] XRay Report Signed Patient: Natali Mtz LMR#: [id number] 0620 : 1990Acct:[id number] Age/Sex: 33 / FADM Date: 07/24/24 Loc: DWAIN Attending Dr: Kaur Hernandez MD Ordering Physician: Kaur Hernandez MD Date of Service: 07/24/24 Procedure(s): XR foot RT min 3V Accession Number(s): [id number] cc: Kaur Hernandez MD; Ally Ferreira MD [...] 07/24/24 1527 DD/ 1306 TD/TT: 07/24/24 1318 Field Mechanical Meter Tester: us Kaur Hernandez MD IMG XR PROCEDURES Final [...] fever) come back to [facility] or call C. Try to keep pressure off of it if possible. us Kaur Hernandez MD IN CLINIC/BEDSIDE ORDERA BLES Final Result * Rast Allergen (07/17/2024 11:19 AM EDT) Rast Allergen SEE NOTE [facility] Comment:SEE SCANNED RESULTS IN EMR 07/17/2024 11:1 9 AM EDT 07/17/2024 11:19 AM EDT Narrative [facility] - 08/07/2024 11:53 AM EDT DOG DANDER REFLEX us Generic External Data Provider HISTORICAL/NON OR DERABLE LABS Final Result [facility] [address] [place] [address] [phone] * (ABNORMAL) Respiratory Allergy Profile Region I (07/17/2024 11:19 AM EDT) Mouse Urine Proteins (E72) IgE <0.10 kU/L [facility] Class 0 [facility] Cockroach (I6) IgE <0.10 kU/L [facility] Class 0 [facility] Dermatophagoides farinae (D2) IgE 1.28(A) kU/L [facility] Class 2 [facility] Cat Dander (E1) IgE <0.10 kU/L [facility] Class 0 [facility] Comment:THIS TEST WAS PERFOR MED AT:[address] [place] [phone] HUNTER MD Dog Dander (E5) IgE 1.19(A) kU/L [facility] Class 2 [facility] Comment:THIS TEST WAS PERFOR MED AT:[address] [place] [phone] HUNTER MD Faisal Grass (G6) IgE 0.21(A) kU/L [facility] Class 0/1 [facility] Cladosporium herbarum (M2) IgE <0.10 kU/L [facility] Class 0 [facility] Aspergillus Fumigatis (M3) IgE <0.10 kU/L [facility] Class 0 [facility] Alternaria alternata (M6) IgE <0.10 kU/L [facility] Class 0 [facility] Comment:THIS TEST WAS PERFOR MED AT:[address] [place] [phone] HUNTER MD [place] (t6) IgE <0.10 kU/L [facility] Class 0 [facility] [place] (T7) IgE 1.46(A) kU/L [facility] Class 2 [facility] [place] (T10) IgE <0.10 kU/L [facility] Class 0 [facility] [place] (T11) IgE <0.10 kU/L [facility] Class 0 [facility] Denali (T14) IgE <0.10 kU/L [facility] Class 0 [facility] [place] (t15) IgE <0.10 kU/L [facility] Class 0 [facility] [place] (T70) IgE <0.10 kU/L [facility] Class 0 [facility] Common Ragweed (Short) (W1) IgE 0.67(A) kU/L [facility] Class 1 [facility] Mugwort (w6) IgE 0.41(A) kU/L [facility] Class 1 [facility] Dermatophagoides pteronyssinus (D1) IgE 1.56(A) kU/L [facility] Class 2 [facility] B[place] Grass (g2) IgE <0.10 kU/L [facility] Class 0 [facility] Penicillium Notatum (M1) IgE <0.10 kU/L [facility] Class 0 [facility] Birch (T3) IgE 1.57(A) kU/L [facility] Class 2 [facility] Elm (t8) IgE <0.10 kU/L [facility] Class 0 [facility] Maple (Camp) (T1) IgE <0.10 kU/L [facility] Class 0 [facility] Rough Pigweed (W14) IgE <0.10 kU/L [facility] Class 0 [facility] Sheep Ambia (W18) IgE <0.10 kU/L [facility] Class 0 [facility] Allergen Comment See Below [facility] Comment: Specific ?Level of AllergenIGE [...] and its analyticalperformance characteristics have been determined [employer]. It has not been cleared or approvedby the U.S. Food and Drug Administration. This assayhas been validated pursuant to the CLIA regulationsand is used for clinical purposes.THIS TEST WAS PERFORMED AT:[address] [place] [address] ??[phone] HUNTER MD 07/17/2024 11:1 9 AM EDT 07/17/2024 11:19 AM EDT us Generic External Data Provider LAB BLOOD ORDERAB LES Final Result [facility] [address] [place] [phone] * (ABNORMAL) CBC auto differential (07/17/2024 11:19 AM EDT) White Blood Count 14.8(H) 4.8 - 10.8 X10*3/uL [facility] Red Blood Count 3.20(L) 4.20 - 5.50 X10*6/uL [facility] Hemoglobin 9.7(L) 12.0 - 16.0 g/dl [facility] Hematocrit 29.7(L) 37.0 - 47.0 % [facility] Mean Corpuscular Volume 92.8 80.0 - 98.0 fL [facility] Mean Corpuscular Hemoglobin 30.3 27.0 - 33.0 pg [facility] Mean Corpuscular HGB Conc 32.7 31.0 - 35.0 g/dl [facility] Red Cell Distribution Width 15.9 11.0 - 16.0 % [facility] Platelet Count 296 160 - 400 X10*3/uL [facility] Mean Platelet Volume 11.0 9.4 - 12.3 fL [facility] Neutrophils Percent Auto 71.3 45 - 73 % [facility] Imm Gran Pct Auto 0.6(H) 0.0 - 0.4 % [facility] Lymphocytes Percent Auto 13.6(L) 20 - 40 % [facility] Monocytes Percent Auto 7.2 2 - 11 % [facility] Eosinophils Percent Auto 6.4(H) 0 - 4 % [facility] Basophils Percent Auto 0.9 0 - 2 % [facility] NRBC Pct Auto 0.0 0.0 - 0.2 /100WBC [facility] Neutrophils Absolute Auto 10.5(H) 2.0 - 8.3 x10*3/uL [facility] Imm Gran Abs Auto 0.09(H) 0.00 - 0.03 X10*3/uL [facility] Lymphocytes Absolute Auto 2.0 1.2 - 4.9 X10*3/uL [facility] Monocytes Absolute Auto 1.1 0.1 - 1.2 X10*3/uL [facility] Eosinophils Absolute Auto 0.9(H) 0.0 - 0.4 X10*3/uL [facility] Basophils Absolute Auto 0.1 0.0 - 0.2 X10*3/uL [facility] NRBC Abs Auto 0.000 0.0 - 0.012 X10*3/uL [facility] 07/17/2024 11:1 9 AM EDT 07/17/2024 11:19 AM EDT us Generic External Data Provider LAB BLOOD ORDERAB LES Final Result [facility] [address] [place] [phone] * (ABNORMAL) Fructosamine (07/17/2024 11:19 AM EDT) Fructosamine 510(A) 205 - 285 umol/L [facility] Comment:THIS TEST WAS PERFOR MED AT:[employer] [place] [phone] BENITEZ MD,PHD 07/17/2024 11:1 9 AM EDT 07/17/2024 11:19 AM EDT us Generic External Data Provider LAB BLOOD ORDERAB LES Final Result Performing Organization Address [facility] de Phone Number [facility] [address] [place] [phone] * (ABNORMAL) Immunoglobulin G Subclasses Panel (07/17/2024 11:19 AM EDT) IgG Subclass 1 734 382 - 929 mg/dL [facility] IgG Subclass 2 724(A) 241 - 700 mg/dL [facility] IgG Subclass 3 96 22 - 178 mg/dL [facility] IgG Subclass 4 37.1 4 - 86 mg/dL [facility] Immunoglobulin G, Serum 1628 600 - 1640 mg/dL [facility] Comment:THIS TEST WAS PERFOR MED AT:[address] [place] [phone] HUNTER MD 07/17/2024 11:1 9 AM EDT 07/17/2024 11:19 AM EDT Generic External Data Provider LAB BLOOD ORDERAB LES Final Result Performing Organization Address [facility] Number [facility] [address] [place] [phone] * (ABNORMAL) Sed Rate by Modified Den (07/17/2024 11:19 AM EDT) Erythrocyte Sedimentation Rate 93(H) 0 - 20 MM/HR [facility] Comment:Patients with polycy themia and many hemoglobin abnormalitiesmay have depressed sed rates whereas patients with anemiamay have elevated sed rates. 07/17/2024 11:1 9 AM EDT 07/17/2024 11:19 AM EDT Generic External Data Provider LAB BLOOD ORDERAB LES Final Result Performing Organization Address [facility] Co de Phone Number [facility] [address] [place] [phone] * (ABNORMAL) Immunoglobulins, Quantitative, IgA, IgG, IgM (07/17/2024 11:19 AM EDT) Pathologist [facility] IMMUNOGLOBULIN G 1801(A) 600 - 1640 mg/dL [facility] IMMUNOGLOBULIN A 462(A) 47 - 310 mg/dL [facility] Immunoglobulin M 106 50 - 300 mg/dL [facility] Comment:THIS TEST WAS PERFOR MED AT:[address] [place] [phone] HUNTER MD 07/17/2024 11:1 9 AM EDT 07/17/2024 11:19 AM EDT Generic External Data Provider LAB BLOOD ORDERAB LES Final Result Performing Organization Address [facility] Co de Phone Number [facility] [address] [place] [phone] * Immunoglobulin E (07/17/2024 11:19 AM EDT) Pathologist [facility] Immunoglobulin E 86 <CY=891 kU/L [facility] 07/17/2024 11:1 9 AM EDT 07/17/2024 11:19 AM EDT Generic External Data Provider LAB BLOOD ORDERAB LES Final Result Performing Organization Address [facility] Co de Phone Number [facility] [address] [place] [phone] * Hepatitis C Antibody with Reflex to HCV, RNA, Quantitative, Real-Time PCR (09/06/2023 10:47 AM EDT) Pathologist [facility] Hepatitis C Antibody Nonreactive Nonreactive [facility] Comment:Antibodies to HCV no t detected; does not exclude early acuteHCV infection. Blood Venous blood specimen / Unknown 09/06/2023 10:47 AM EDT 09/06/2023 10:47 AM EDT us Ally Ferguson MD LAB BLOOD ORDERAB LES Final Result Performing Organization Address [facility] Co de Phone Number [facility] [address] [place] [phone] * HIV-1/2 Antigen and Antibodies, Fourth Generation, with Reflexes (09/06/2023 10:47 AM EDT) HIV AB/AG Nonreactive Nonreactive [facility] Comment:HIV-1 p24 Ag and/or HIV-1/HIV-2 Ab not detected.A test result that is nonreactive does not exclude thepossibility of exposure to or infection with HIV-1 and/orHIV-2. Nonreactive results in this assay for individualswith prior exposure to HIV-1 and/or HIV-2 may be due toantigen and antibody levels that are below the limit ofdetection of this assay.The [employer] HIV Ag/Ab Combo assay result andsupplemental assay results should be interpreted inconjunction with the patient's clinical presentation,history and other laboratory results. If the results areinconsistent with clinical evidence, additional testing issuggested to confirm the result. Blood Venous blood specimen / Unknown 09/06/2023 10:47 AM EDT 09/06/2023 10:47 AM EDT us Ally Ferguson MD LAB BLOOD ORDERAB LES Final Result Performing Organization Address [facility] Co de Phone Number [facility] [address] [place] [phone] * (ABNORMAL) Hemoglobin A1c (09/06/2023 10:47 AM EDT) Hemoglobin A1c 9.4(H) <6.0 % [facility] Comment:Hemoglobin A1C Refer ence Range Adults: 4.8 - 6.0 % Non diabetic: < 6.0 % Goal: < 7.0 %Additional Action Suggested: > 8.0 %Note: Hemoglobin A1c results are invalid for patients with abnormal amounts of HbF. Blood transfusions may impact the HbA1c concentration in the patient sample. Estimated Average Glucose 223 mg/dL [facility] Comment:eAG = Estimated ave rage glucose which is %A1C expressed asaverage glucose, using the formula of the Z2V-LvqpovnBcapcrn Glucose study (ADAG), Diabetes Care, Vol.31,#8,Nov. 2007 Blood Venous blood specimen / Unknown 09/06/2023 10:47 AM EDT 09/06/2023 10:47 AM EDT us Ally Ferguson MD LAB BLOOD ORDERAB LES Final Result [facility] [address] [place] [phone] * (ABNORMAL) Lipid Panel, Standard (09/06/2023 10:47 AM EDT) Triglycerides 256(H) <150 mg/dL [facility] Comment:Desirable Triglyceri de: less than 150 mg/dLBorderline High Triglyceride 150-199 mg/dLHigh Triglyceride: 200-499 mg/dLVery High Triglyceride: greater than or equal to 5OO mg/dL Cholesterol 203(H) <200 mg/dL [facility] Comment:Desirable Cholestero l: less than 200 mg/dLBorderline High Cholesterol: 200-239 mg/dLHigh Cholesterol: greater than 239 mg/dL LDL Cholesterol Calculated 123(H) <100 mg/dL [facility] Comment:Desirable LDL: less than 100 mg/dLNear Optimal/Above Optimal LDL: 110- 129 mg/dLBorderline High LDL: 130-159 mg/dLHigh LDL: 160-189 mg/dLVery High LDL: greater than or equal to 190 mg/dL HDL Cholesterol 29(L) >40 mg/dL [facility] Comment:Desirable HDL: great er than 40 mg/dL Note: This HDL assay may give artificially low results in patients with liver disease. Blood Venous blood specimen / Unknown 09/06/2023 10:47 AM EDT 09/06/2023 10:47 AM EDT Ally Ferguson MD LAB BLOOD ORDERAB LES Final Result [facility] [address] [place] [phone] * Pap Smear (05/17/2023 12:00 AM EST) Swab Historical Provider LAB CYTOLOGY ORDERABLES F inal Result [facility] [address] [place] [address] * HPV mRNA E6/E7 (02/03/2021 9:37 AM EDT) HPV nRNA E6/E7 Not Detected Not Detected [facility] Comment: Methodology: Fire Patroller-Mediated Amplification This assay detects E6/E7 viral messenger RNA (mRNA) from 14 high-risk HPV types (16,18,31,33,35,39,45,51,52,56,58,59,66,68). ? The analytical performance characteristics of this assay have been determined by [employer]. The modifications have not been cleared or approved by the FDA. This assay has been validated pursuant to the CLIA regulations and is used for clinical purposes. ?? For additional information, please refer to http://[employer]/faq/SSI674d0 (This link if provided for information/ educational purposes only.) HPV nRNA E6/E7 Not Detected Not Detected [facility] Comment: Methodology: Fire Patroller-Mediated Amplification This assay detects E6/E7 viral messenger RNA (mRNA) from 14 high-risk HPV types (16,18,31,33,35,39,45,51,52,56,58,59,66,68). ? The analytical performance characteristics of this assay have been determined by [employer]. The modifications have not been cleared or approved by the FDA. This assay has been validated pursuant to the CLIA regulations and is used for clinical purposes. ?? For additional information, please refer to http://[employer]/faq/DST942a4 (This link if provided for information/ educational purposes only.) 02/03/2021 9:37 AM EDT us Jen Lozoya CN LAB BLOOD ORDERABLES Araceli nika Result [facility] [address] from Last 3 Months or Most Recently Relevant to Health Maintenance Insurance [facility] STANDARD [place] [phone] Care Teams Product Development Worker Relationship Specialty Start Date End Date Ally Ferreira MD [address] [place] [id number] PCP - General Internal Medicine 07/25/22
--- OUTSIDE RECORDS SUMMARY | 2024-08-07 13:37 | XMS_ITS | Encounter Summary ---
Author Organization [facility] Address [address] [place] [address] Phone Care Team Providers Care Oxygen Tank Filler Name Role Phone Azucena Bradley MD Primary Care Provider [phone] Reason for Visit * Reason Comments Med Refill Encounter Details Date Type Department Care Team (Late st Contact Info) Description 06/14/2021 Refill [facility] [address] [place] [address] Forrest Adamson MD Social History [...] on filedocumented in this encounter Care Teams Oxygen Tank Filler Relationship Specialty Start Date End Date Azucena Bradley MD [address] [place] [address], [facility] 3 [place] [address] PCP - General Internal Medicine 01/22/24 documented as of this encounter
--- OUTSIDE RECORDS SUMMARY | 2024-08-07 13:37 | XMS_ITS | Encounter Summary ---
Author Organization [employer] Address [address] [facility] [address] [facility] [address] [place] [address] Care Team Providers Care Marble Rubber Name Role Phone Duke Virijohn MOREAU Primary Care Provider [phone] Ally Ferreira MD Primary Care Pro vider Reason for Visit * Reason Comments Med Refill Encounter Details Date Type Department Care Team (Late st Contact Info) Description 06/06/2022 Refill [facility] 230 [place] [address] Adelaide Cano DO 230 [place] [address] Social History Tobacco Use Types Packs/Day Years [...] AM EST T/C placed to pt via [facility] #[id number]. 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 Advised will update provider. documented in this encounter Plan of Treatment Upcoming Encounters Date Type Department Care Team (Late st Contact Info) Description 09/02/2024 10:15 AM EDT Office Visit [facility] [address] [place] [phone] Ally Ferreira MD [address] [place] [address] [phone] documented as of this encounter Visit Diagnoses Not on filedocumented in this encounter Care Teams Marble Rubber Relationship Specialty Start Date End Date Viri Wall FNP [address] [place] [address] [phone] PCP - General Family Medicine 06/06/22 07/24/22 Ally Ferreira MD [address] [place] [address] [phone] PCP - General Internal Medicine 07/25/22 documented as of this encounter
--- OUTSIDE RECORDS SUMMARY | 2024-08-07 13:37 | XMS_ITS | Encounter Summary ---
Author Organization [employer] Address [address] [facility] [address] [facility] [address] 7[address] [place] [address] Care Team Providers Care Belt Press Operator Name Role Phone Viri Wall Primary Care Provider [phone] Ally Ferreira MD Primary Care Pro vider Reason for Visit * Reason Comments Med Refill Encounter Details Date Type Department Care Team (Late st Contact Info) Description 06/06/2022 Refill [facility] 230 [place], [place] [phone] Name, MD Dain 230 [place] [address] Primary hypertension (Primary Dx) Social History Tobacco [...] Description 09/02/2024 10:15 AM EDT Office Visit [facility] [address] [place] [address] Ally Ferreira MD 230 [place], [place] [phone] documented as of this encounter Visit Diagnoses Diagnosis Primary hypertension- Primary Unspecified essential hypertension documented in this encounter Care Teams Belt Press Operator Relationship Specialty Start Date End Date Viri Wall FNP [address] [place] [address] [phone] PCP - General Family Medicine 06/06/22 07/24/22 Ally Ferreira MD [address] [place] [address] [id number] PCP - General Internal Medicine 07/25/22 documented as of this encounter
--- OUTSIDE RECORDS SUMMARY | 2024-08-07 13:37 | XMS_ITS | Encounter Summary ---
Author Organization [employer] Address [address] [place] [address] 7 [place] [address] Care Team Providers Care Tow Truck Operator Name Role Phone Ally Ferreira MD Primary Care Pro vider Reason for Visit * Reason Comments Med Refill Encounter Details Date Type Department Care Team (Late Contact Info) Description 09/02/2022 Refill [facility] 230 [place], [place] [phone] Ally Ferreira MD 230 [place] [address] Social History Tobacco Use Types Packs/Day Years [...] Description 09/02/2024 10:15 AM EDT Office Visit [facility] 230 [place] [address] Ally Ferreira MD 230 [place] [address] documented as of this encounter Visit Diagnoses Not on filedocumented in this encounter Additional Health Concerns Assessment Noted Time PHQ-9 Depression Total Score: 0 08/11/19 9:11 AM EDT documented as of this encounter Care Teams Tow Truck Operator Relationship Specialty Start Date End Date Ally Ferreira MD 230 [place] [address] PCP - General Internal Medicine 07/25/22 documented as of this encounter
--- OUTSIDE RECORDS SUMMARY | 2024-08-07 13:37 | XMS_ITS | Encounter Summary ---
Author Organization [employer] Address [address] [employer] [address] 7 [place] [address] Care Team Providers Care Telephone Appointment Clerk Name Role Phone Ally Ferreira MD Primary Care Pro vider Reason for Visit * Reason Onset Date Comments Referral 05/01/2023 Encounter Details Date Type Department Care Team ([facility] st Contact Info) Description 05/01/2023 Telephone [facility] 230 [place], [place] [phone] Ally Ferreira MD 230 [place] [address] Referral Social History Tobacco Use Types Packs/Day [...] Office Visit [facility] [address] [place] [phone] Ally Ferreira MD [address] [place] [phone] documented as of this encounter Visit Diagnoses Not on filedocumented in this encounter Additional Health Concerns Assessment Noted Time PHQ-9 Depression Total Score: 0 08/11/19 9:11 AM EDT documented as of this encounter Care Teams Telephone Appointment Clerk Relationship Specialty Start Date End Date Ally Ferreira MD [address] [place] [id number] PCP - General Internal Medicine 07/25/22 documented as of this encounter
--- OUTSIDE RECORDS SUMMARY | 2024-08-07 13:37 | XMS_ITS | Encounter Summary ---
Author Organization [facility] Address [address] [place] [address] Phone Care Team Providers Care Drum Drier Operator Name Role Phone Azucena Bradley MD Primary Care Provider Reason for Visit * Reason Comments Med Refill Encounter Details Date Type Department Care Team (Late st Contact Info) Description 12/24/2021 Refill [facility] [address] [place] [address] Forrest Adamson MD Social History Tobacco [...] on filedocumented in this encounter Care Teams Drum Drier Operator Relationship Specialty Start Date End Date Azucena Bradley MD [address] [place] [address], [facility] [address] [place] [address] PCP - General Internal Medicine 01/22/24 documented as of this encounter
--- OUTSIDE RECORDS SUMMARY | 2024-08-07 13:37 | XMS_ITS | Encounter Summary ---
Author Organization [employer] Address [address] [place] [address] Care Team Providers Care Financial Solutions Advisor Name Role Phone Ally Ferreira MD Primary Care Pro vider Reason for Visit * Reason Comments Med Refill Encounter Details Date Type Department Care Team ([facility] st Contact Info) Description 05/01/2023 Refill [facility] 230 [place], [place] [phone] Jen Lozoya, [facility] 230 [place] [address] Social History Tobacco Use Types Packs/Day Years [...] Description 09/02/2024 10:15 AM EDT Office Visit [facility] [address] [place] [phone] Ally Ferreira MD [address] [place] [phone] documented as of this encounter Visit Diagnoses Not on filedocumented in this encounter Additional Health Concerns Assessment Noted Time PHQ-9 Depression Total Score: 0 08/11/19 9:11 AM EDT documented as of this encounter Care Teams Financial Solutions Advisor Relationship Specialty Start Date End Date Ally Ferreira MD [address] [place] [id number] PCP - General Internal Medicine 07/25/22 documented as of this encounter
--- OUTSIDE RECORDS SUMMARY | 2024-08-07 13:37 | XMS_ITS | Encounter Summary ---
Author Organization [employer] Address [address] [facility] [address] [place] [address] Care Team Providers Care Wheel Assembler Name Role Phone Ally Ferreira MD Primary Care Pro vider Reason for Visit * Reason Comments Med Refill Encounter Details Date Type Department Care Team ([facility] Contact Info) Description 09/02/2022 Refill [facility] 230 [place] [address] Blair Lopez AGNP Hypertension, unspecified [...] Upcoming Encounters Date Type Department Care Team ([facility] Contact Info) Description 09/02/2024 10:15 AM EDT Office Visit [facility] 230 [place] [address] Ally Ferreira MD 230 [place] [address] documented as of this encounter Visit Diagnoses Diagnosis Hypertension, unspecified type documented in this encounter Additional Health Concerns Assessment Noted Time PHQ-9 Depression Total Score: 0 08/11/19 9:11 AM EDT documented as of this encounter Care Teams Wheel Assembler Relationship Specialty Start Date End Date Ally Ferreira MD 230 [place] [address] PCP - General Internal Medicine 07/25/22 documented as of this encounter
== END 2024-08-07 12:09 | disposition home or self-care (01) ==
LOC: HO.ENCR 11:21
PROVIDERS: PCP Student in an Organized Health Care Education/Training Program; Visit Provider Nurse Practitioner Adult Health
DX: E10.65 Type 1 diabetes mellitus with hyperglycemia (principal); L97.509 Non-pressure chronic ulcer of other part of unspecified foot with unspecified severity
CPT/HCPCS: 99214; G2211

== ENCOUNTER → 2024-08-07 11:21 | Outpatient (BNVA) | payer MEDICARE, MEDICAID, SELFPAY | PROVIDERS: PCP Student in an Organized Health Care Education/Training Program; Visit Provider Nurse Practitioner Adult Health | DX: E10.65 Type 1 diabetes mellitus with hyperglycemia (principal); E10.22 Type 1 diabetes mellitus with diabetic chronic kidney disease; E10.621 Type 1 diabetes mellitus with foot ulcer; N18.6 End stage renal disease; L97.509 Non-pressure chronic ulcer of other part of unspecified foot with unspecified severity; Z99.2 Dependence on renal dialysis; Z79.4 Long term (current) use of insulin; Z96.41 Presence of insulin pump (external) (internal) | CPT/HCPCS: 82947; 99212 ==

== ENCOUNTER 2024-09-09 11:02 | Outpatient (AMB) | payer MEDICARE, MEDICAID, SELFPAY ==
[2024-09-09 11:30] VITALS: BMI 29.5
--- NOTE | 2024-09-09 11:30 | A.OFFVIS_ITS ---
Vital Signs 09/09/24 11:30 Height 5 ft 1 in Weight 156 lb BMI 29.5 Intake Visit Reasons: new non-healing wound Intake Note: follow up for new wound on Right LE x 2 months. Changes dressing daily. Facilities Technician Required: No Accompanied by: Self / Same As Patient Allergies icodextrin Allergy (Mild, Verified 09/09/24 11:33) Rash oxycodone Adverse Reaction (Severe, Verified 09/09/24 11:33) rash tramadol Adverse Reaction (Severe, Verified 09/09/24 11:33) rash CLOROXINE Allergy (Unknown, Uncoded 09/09/24 11:33) RASH HPI HPI new non-healing wound: Details: Natali, a very pleasant 34yo female patient, is presenting today on referral from PCP for concerns of a nonhealing wound on the right heel/foot. She has an extensive medical hx including type I DM and ESRD on HD on //. She denies any injuries to the foot/heel. She is [facility] for [facility] care. She states the site hurts intermittently, mostly when being touched/dressed. She states she is having intermittent clear discharge and bleeding. Complaints include pain over the right heel/foot, swelling of lower extremities, and fatigue of the lower extremities. It has been affecting their daily activities including walking, standing, and physical activity. It is noted more so in the right leg. Most recent A1C is 7.4% on 07/16/24. She is on the transplant list with [facility]. Patient denies any previous venous surgery or injections. Patient denies any history of DVT/ PE. Patient denies any history of phlebitis. Trial of compression includes - elevation and compression socks have been helpful They now present for vascular evaluation regarding their varicose veins. [facility] Medical History Foot ulcer Asthma Dyspnea Pulmonary nodules Chronic allergic rhinitis Allergies Kidney failure ESRD (end stage renal disease) on dialysis Anemia HTN (hypertension) ESRD (end stage renal disease) 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 Hypoglycemia due to type 1 diabetes mellitus Hypertension Dyslipidemia Diabetic polyneuropathy associated with type 1 diabetes mellitus Diabetes type 1, uncontrolled ESRD (end stage renal disease) on dialysis ESRD (end stage renal disease) Surgical History History of hemodialysis Hx of amputation Hx of eye surgery Hx of section Family History Father Diabetes mellitus Mother Thyroid disease Pre-diabetes HTN (hypertension) Acute depression Arthritis Social History Household Members: Significant Other Household Members Other:: / - 6 y/o daughter Housing: Apartment Do you presently have visiting nurse or other home services: No Alcohol intake: never Patient Tobacco Use Status: Never used Tobacco service: No Current occupational status: disabled Review of Systems Const Reports as per HPI and Denies weakness ENT Reports Normal hearing present and Denies dizziness Card Reports as per HPI, Denies chest pain, Denies chest pain at rest, Denies chest p ain with activity, Denies dyspnea and Denies dyspnea on exertion Resp Reports as per HPI, Denies cough, Denies dyspnea and Denies dyspnea on exertion GI Reports as per HPI, Denies abdominal pain, Denies nausea and Denies vomiting Musc Denies numbness Skin/Breast Reports as per HPI, Denies erythema and Denies wounds Neuro Reports Normal hearing present, Denies dizziness, Denies numbness, Denies Sensory deficit (Neuro) and Denies weakness Psych Reports no additional complaints Endo Reports no additional complaints Physical Exam Vital Signs: BMI result Body Mass Index 29.5 Const General: healthy appearing and no acute distress Orientation/consciousness: patient oriented x3 HEENT Head: Yes normal to inspection Ears: hearing grossly normal bilaterally Mouth: Normal oral and palatal mucosa present Resp Effort & Inspection: normal respiratory effort and able to speak in complete sentences Auscultation: clear to auscultation bilaterally Cardio Jugular venous distension: no JVD Rate: regular rate Rhythm: regular rhythm Heart sounds: S1 normal heart sound present and S2 normal heart sound present Bruits: no abdominal aortic bruits, no carotid bruits, no femoral bruits and no renal bruits Peripheral pulses: Peripheral pulses 2+ throughout GI Inspection: Yes normal to inspection Palpation (GI): No Abdominal aortic bruit present Skin General skin exam: no rashes or lesions noted Wounds: no wounds Hair: normal Neuro General: patient oriented x3 Cranial nerves: Yes Normal hearing present Cognition (Neuro): normal cognition Gait exam (Neuro): Normal gait present Motor exam (neuro): 5/5 motor strength present throughout Sensory Exam: No Sensory deficit (Neuro) Extrem Other: Right heel/foot: bandaged; not taken down. Palpable DP pulse. Trace peripheral edema noted. CEAP: C - 3 E - primary A - superficial P - reflux General: Yes normal to inspection, Yes full ROM, Yes capillary refill normal and Yes normal gait Assessment & Plan Assessment & Plan (1) Varicose veins of both lower extremities with inflammation: Code(s): I83.11 - Varicose veins of right lower extremity with inflammation; I83.12 - Varicose veins of left lower extremity with inflammation Category: Medical Plan: Natali is presenting today on referral from her PCP for concerns of a nonhealing ulcer on her right foot/heel. She is seen by the [facility], whom is treating it with cream, which she states is helping, and bandage changes daily. In short, the patient has evidence of venous insufficiency. I have discussed the pathophysiology with the patient. In addition I have provided informational material regarding venous disease to the patient. We have discussed conservative measures including compression, elevation, and exercise. I have taken the liberty of ordering venous insufficiency testing with the patient. They will follow up with me after testing. The patient had an opportunity to ask questions regarding the treatment plan. All questions were answered. Imaging studies, laboratory studies and physical exam results were discussed and reviewed in detail. No major barriers to understanding were identified. The patient expressed understanding and agreement with the above treatment plan. The patient is aware they should contact our office by phone for worsening of the current condition or the appearance of new symptoms. Thank you for allowing me to participate in the vascular care of this patient. If you have any questions or concerns regarding the treatment for the above condition please do not hesitate to contact me. The office telephone contact is [phone]. This note is constructed using voice recognition software. While every effort has been made to ensure accuracy, chamber magistrate errors may have been included. Thank you for allowing me to participate in the care of your patient. Yours sincerely, ALFREDO Centeno Orders: Orders US venous duplex LE BI 1 Week I83.11 - Varicose veins of right lower extremity with inflammation, I83.12 - Varicose veins of left lower extremity with inf lammation Coding Level of Care Code New Pt Level 4 (48882) Diagnoses Varicose veins of both lower extremities with inflammation I83.11; I83.12
--- OUTSIDE RECORDS SUMMARY | 2024-09-09 11:51 | XMS_ITS | Encounter Summary ---
Author Organization [facility] Address [address] [place] [address] Phone Care Team Providers Care Truck Headlight Assembler Name Role Phone Azucena Bradley MD Primary Care Provider [phone] Reason for Visit * Reason Comments Med Refill Encounter Details Date Type Department Care Team ([facility] st Contact Info) Description 06/04/2023 Refill [facility] [address] [place] [phone] Wesley Pagan MD [address] [facility] [address] [place] [phone] Social History Tobacco Use Types Packs/Day Years [...] on filedocumented in this encounter Care Teams Truck Headlight Assembler Relationship Specialty Start Date End Date Azucena Bradley MD [address] [place] [address], Floor [address] [place] [address] PCP - General Internal Medicine 01/22/24 documented as of this encounter
== END 2024-09-09 11:52 | disposition home or self-care (01) ==
LOC: HO.HVS 11:03
PROVIDERS: PCP Student in an Organized Health Care Education/Training Program; Visit Provider Physician Assistant Surgical
DX: I83.11 Varicose veins of right lower extremity with inflammation (principal); I83.12 Varicose veins of left lower extremity with inflammation
CPT/HCPCS: 99204

== ENCOUNTER → 2024-09-09 11:02 | Outpatient (BNVA) | payer MEDICARE, MEDICAID, SELFPAY | PROVIDERS: PCP Student in an Organized Health Care Education/Training Program; Visit Provider Physician Assistant Surgical | DX: I83.11 Varicose veins of right lower extremity with inflammation (principal); I83.12 Varicose veins of left lower extremity with inflammation | CPT/HCPCS: 99202 ==

== ENCOUNTER 2024-09-25 10:47 | Outpatient (AMB) | payer MEDICARE, MEDICAID, SELFPAY ==
--- NOTE | 2024-09-25 10:12 | A.OFFVIS_ITS ---
Vital Signs 09/25/24 11:15 Height 5 ft 1 in Weight 154 lb 5.177 oz BMI 29.2 BP 118/70 Blood Pressure Location Rt brachial Position Sitting Pulse 86 Pulse Source Pulse Oximeter Pulse Oximetry (%) 96 Oxygen Delivery Method Room Air Intake Visit Reasons: T1DM Intake Note: Patient present today to follow up on Type 1 Diabetes Mellitus. Last Diabetic Eye exam: 06/2023 Last Podiatry Visit: 06/2023, (saw [facility] wound care recently for her open ulcer) Most Recent HgA1C: 7.4% Patient stated it was done on 07/16/2024 at Dialysis Random Glucose: 239 mg/dL, Today Ride Operator Required: No Accompanied by: Self / Same As Patient Allergies icodextrin Allergy (Mild, Verified 09/25/24 11:14) Rash oxycodone Adverse Reaction (Severe, Verified 09/25/24 11:14) rash tramadol Adverse Reaction (Severe, Verified 09/25/24 11:14) rash CLOROXINE Allergy (Unknown, Uncoded 09/25/24 11:14) RASH HPI Comments Details: 34 year-old female today for follow-up visit, for diabetes type 1 management in the setting of end-stage renal disease. She was started on an omni pod earlier last year. Hgb A1C 07/16/24 7.4%(in dialysis), 04/24/24 8% 12/08/23 8.1% This is down from July of 9.9% pre pump. She has type 1 diabetes diagnosed at age 11. Diabetes has been complicated with diabetic nephropathy with end-stage renal disease and hemodialysis. She has diabetic neuropathy, hypertension dyslipidemia. The patient is anuric. She has been on hemodialysis Sunday and Fridays for several years.. She had a full cardiac workup at [facility] 2 years ago and has been on the transplant list at [facility]. saw optho 07/07 - no retinopathy per patient reports She will schedule through at [facility] Has neuropathy: Symptoms include numbness, tingling she is followed by Podiatry tingling much better since on pregalabin. She has a diabetic foot ulcer on her right heel, She was applying a cream prescribed by podiatry and felt a burning sensation.She is now being followed by the wound care clinic and has recently seen vascular surgery, She has f/u next week in wound care. Was being seen weekly, now every other week. Last LDL 123 1 year ago not on statin labs ordered by pcp contol: IUD not planning for she would like to wait for transplant first seen at [facility] regulary has appt next month Dexcom average glucose: 220 14 day continuous glucose monitor report reviewed Glucose Managment indicator 8.6 % Days with CGM data 87 % TIme in ranges: 33 % very high (above 250) 32 % high ?(181-250) 34 % in range ?(70-180] 1 % low (69-55) 0 % ?very low (below 54) Interpretation sensor 65 points above target with postprandial elevations. Correction factor at times brings her down too much. She is entering 87 carbs per day which he believes is accurate In auto mode 97% of the time 68% of insulin 23.7 units by basal 32% 11.1 units by bolus Total daily dose of insulin 34.8 Basal rate(s) (units/hour) : 12 AM? to 12 AM 1.25units / hr Bolus setting Insulin Carbohydrate Ratio (s) 12 AM? to 12 AM 1:5.5 new 5.0 Correction Factor / Sensitivity Factor 12 AM? to 12 AM? 1:30 new 33 Active Insulin Time:? 2.0 Target(s): 12 AM? to 12 AM 110 mg/dL Correction Threshold 12 AM? 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 Hypoglycemia due to type 1 diabetes mellitus Hypertension Dyslipidemia Diabetic polyneuropathy associated with type 1 diabetes mellitus Diabetes type 1, uncontrolled ESRD (end stage renal disease) on dialysis ESRD (end stage renal disease) Surgical History History of hemodialysis Hx of amputation Hx of eye surgery Hx of section Family History Father Diabetes mellitus Mother Thyroid disease Pre-diabetes HTN (hypertension) Acute depression Arthritis Social History Household Members: Significant Other Household Members Other:: / - 6 y/o daughter Housing: Apartment Do you presently have visiting nurse or other home services: No Alcohol intake: never Patient Tobacco Use Status: Never used Tobacco service: No Current occupational status: disabled Physical Exam Vital Signs: Last Vital Signs Pulse 86 09/25/24 11:15 BP 118/70 09/25/24 11:15 Pulse Ox 96 09/25/24 11:15 Oxygen Delivery Method Room Air 09/25/24 11:15 BMI result Body Mass Index 29.2 Const Other: Absence of Cushingoid features. Absence of acromegalic features. Neck exam reveals nl size thyroid about 15 gms. No thyroid nodules palpable. No carotid bruits present. Lungs CTA. Heart S1 S2, Reg R/R. No M/R G. Skin exam reveals absence of vitiligo or acanthosis nigricans. No edema Absence of Cushingoid features. Absence of acromegalic features. Neck exam reveals nl size thyroid about 15 gms. No thyroid nodules palpable. Heart S1 S2, Reg R/R. No M/R G. Skin exam reveals absence of vitiligo or acanthosis nigricans. Visual exam of foot performed. No ulcerations or open lesions. No inter digit maceration or fissuring. No onychomycosis, no callouses. Sensation intact to monofilament exam. Vibratory sensation is normal with 128 Hz tuning fork. Right foot to toe amputation. Heel ulcer size diminishing, superficial no s/s infection, no purulence/redness Results Reviewed Results Reviewed: Laboratory Last Values Glucose (Clinic) 239 mg/dL (60-115) H 09/25/24 11:19 Assessment & Plan Assessment & Plan (1) Diabetes type 1, uncontrolled: Code(s): E10.65 - Type 1 diabetes mellitus with hyperglycemia Category: Medical Plan: 34-year-old type 1 diabetic with diabetic neuropathy, resolving heel ulcer end stage renal disease on an omnipod insulin pump. Carb ratio decreased to allow more pre meal insulin. She can adjust furthur down to 4.5 he is still having postprandial highs. The patient had an opportunity to ask questions regarding treatment plan. The patient expressed understanding and agreement with the above treatment plan. The patient is aware they should contact our office by phone for worsening glucose readings or for any low blood sugars which may warrant a change in diabetes medication. Compliance is encouraged with medications and any followup testing/consults which may have been ordered. Patient Instructions: The patient was counseled to achieve a target A1C of 7% (154 avg). Fasting blood sugars should be 90-130 in the morning and less than 180 two hours after meals. Reviewed the relationship between poor diabetic control and the development of complications. Check your feet daily looking for any signs of infection, drainage, redness, ulceration and seek medical attention if this occurs. Break in shoes gradually and do not wear open-toed shoes or walk stocking footed or barefooted. Always carry a source of sugar Coding Level of Care Code Est Pt Level 4 (11231) Complex EM visit Add On G2211 Diagnoses Diabetes type 1, uncontrolled E10.65 Time Spent (min) 30 Comment Time spent reviewing labs/provider notes, face to face, chart doc
[2024-09-25 11:15] VITALS: BP 118/70; PULSE 86; O2SAT 96; BMI 29.2
[2024-09-25 11:22] LABS: Glucose, Whole Blood 239 mg/dL (60-115)
--- OUTSIDE RECORDS SUMMARY | 2024-09-25 12:40 | XMS_ITS | Encounter Summary ---
Author Organization [facility] Address [address] [facility] [address] [place] [address] Phone Care Team Providers Care Instructional Resource Teacher Name Role Phone Azucena Bradley MD Primary Care Provider [phone] Reason for Visit * Reason Comments Med Refill Encounter Details Date Type Department Care Team ([facility] st Contact Info) Description 06/04/2023 Refill [facility] [address] [place] [address] [place] [phone] Wesley Pagan MD [address] [facility] [address] [place] [phone] Social History Tobacco Use Types Packs/Day Years [...] on filedocumented in this encounter Care Teams Instructional Resource Teacher Relationship Specialty Start Date End Date Azucena Bradley MD [address] [place] [address], [address] [place] [address] PCP - General Internal Medicine 01/22/24 documented as of this encounter
== END 2024-09-25 11:37 | disposition home or self-care (01) ==
LOC: HO.ENCR 10:47
PROVIDERS: PCP Student in an Organized Health Care Education/Training Program; Visit Provider Nurse Practitioner Adult Health
DX: E10.65 Type 1 diabetes mellitus with hyperglycemia (principal)
CPT/HCPCS: 99214; G2211

== ENCOUNTER → 2024-09-25 10:47 | Outpatient (BNVA) | payer MEDICARE, MEDICAID, SELFPAY | PROVIDERS: PCP Student in an Organized Health Care Education/Training Program; Visit Provider Nurse Practitioner Adult Health | DX: Z46.81 Encounter for fitting and adjustment of insulin pump (principal); E10.65 Type 1 diabetes mellitus with hyperglycemia; Z79.4 Long term (current) use of insulin | CPT/HCPCS: 82947; 99212 ==

== ENCOUNTER 2024-10-09 10:14 | Outpatient (REF) | payer MEDICARE, MEDICAID, SELFPAY ==
--- NOTE | ~2024-10-09 | US_ITS ---
EXAMINATION: US LOWER EXTREMITY VENOUS (REFLUX EXAM), BILATERAL CLINICAL INFORMATION: Varicose veins of right lower extremity with inflammation. COMPARISON: None. TECHNIQUE: Color flow triplex imaging and compression Doppler was performed to evaluate the superficial systems bilaterally. To evaluate the superficial system, the examination was performed in the upright position. Color-flow Doppler ultrasound and compression ultrasound were utilized. In addition, maneuvers were utilized to demonstrate reflux. FINDINGS: 1. SUPERFICIAL ULTRASOUND WITH DOPPLER OF RIGHT LOWER EXTREMITY: GREAT SAPHENOUS VEIN: Saphenofemoral Junction: 0.8 cm; Reflux: 0 ms Proximal Thigh: 0.6 cm; Reflux: 0 ms Mid Thigh: 0.4 cm; Reflux: 0 ms Distal Thigh: 0.5 cm; Reflux: 0 ms At Knee: 0.6 cm; Reflux: 0 ms Proximal Calf: 0.3 cm; Reflux: 0 ms Mid Calf: 0.3 cm; Reflux: 0 ms Distal Calf: 0.2 cm; Reflux: 0 ms DUPLICATED MEDIAL GREAT SAPHENOUS VEIN: None imaged. DUPLICATED LATERAL GREAT SAPHENOUS VEIN: None imaged. SMALL SAPHENOUS VEIN: Saphenopopliteal Junction: 0.2 cm; Reflux: 0 ms Proximal: 0.4 cm; Reflux: 0 ms Distal: 0.3 cm; Reflux: 0 ms VEIN OF GIACOMINI: None imaged. PERFORATORS: Location: [place] Size: 0.2 cm. Reflux: None. VARICOSITIES (greater than or equal to 3 mm): None. 2. SUPERFICIAL ULTRASOUND WITH DOPPLER OF LEFT LOWER EXTREMITY: GREAT SAPHENOUS VEIN: Saphenofemoral Junction: 0.5 cm; Reflux: 0 ms Proximal Thigh: 0.3 cm; Reflux: 0 ms Mid Thigh: 0.3 cm; Reflux: 0 ms Distal Thigh: 0.5 cm; Reflux: 0 ms At Knee: 0.5 cm; Reflux: 0 ms Proximal Calf: 0.2 cm; Reflux: 0 ms Mid Calf: 0.2 cm; Reflux: 0 ms Distal Calf: 0.3 cm; Reflux: 0 ms DUPLICATED MEDIAL GREAT SAPHENOUS VEIN: None imaged. DUPLICATED LATERAL GREAT SAPHENOUS VEIN: SFJ: 0.3 cm, no reflux. Mid thigh: 0.2 cm, no reflux. SMALL SAPHENOUS VEIN: Saphenopopliteal Junction: 0.4 cm; Reflux: 0 ms Proximal: 0.2 cm; Reflux: 0 ms Distal: 0.2 cm; Reflux: 0 ms VEIN OF GIACOMINI: None imaged. PERFORATORS: Location: Mid calf Size: 0.2 cm. Reflux: None. VARICOSITIES (greater than or equal to 3 mm): None imaged. US/US venous duplex LE BI IMPRESSION: RIGHT: 1. No significant superficial system venous reflux identified right lower extremity. 2. No significant varicosities seen. LEFT: 1. No significant superficial system venous reflux identified left lower extremity. 2. No significant varicosities seen. Electronically signed by: Michelet Troncoso MD 10/09/2024 02:02 PM EDT
--- OUTSIDE RECORDS SUMMARY | 2024-10-09 11:49 | XMS_ITS | Encounter Summary ---
Author Organization [facility] Address [address] [facility] [address] [place] [address] Phone Care Team Providers Care Recreation Leader Name Role Phone Azucena Bradley MD Primary Care Provider [phone] Reason for Visit * Reason Comments Med Refill Encounter Details Date Type Department Care Team ([facility] st Contact Info) Description 06/04/2023 Refill [facility] [address] [place] [address] [place] [phone] Wesley Pagan MD [address] [facility] [address] [place] [phone] Social History Tobacco Use Types Packs/Day Years [...] on filedocumented in this encounter Care Teams Recreation Leader Relationship Specialty Start Date End Date Azucena Bradley MD [address] [place] [address], Floor 3 [place] [address] PCP - General Internal Medicine 01/22/24 documented as of this encounter
== END 2024-10-09 10:15 | disposition home or self-care (01) ==
LOC: HO.US 10:14
PROVIDERS: PCP Student in an Organized Health Care Education/Training Program; Visit Provider Physician Assistant Surgical
DX: I83.11 Varicose veins of right lower extremity with inflammation (principal); I83.12 Varicose veins of left lower extremity with inflammation
CPT/HCPCS: 93970

== ENCOUNTER → 2024-10-09 10:15 | Outpatient (BNV) | payer MEDICARE, MEDICAID, SELFPAY | PROVIDERS: PCP Student in an Organized Health Care Education/Training Program; Visit Provider Radiology Diagnostic Radiology | DX: I83.813 Varicose veins of bilateral lower extremities with pain (principal) | CPT/HCPCS: 93970 ==

== ENCOUNTER 2024-10-16 10:24 | Outpatient (AMB) | payer MEDICARE, MEDICAID, SELFPAY ==
--- NOTE | 2024-10-16 10:32 | A.OFFVIS_ITS ---
Intake Visit Reasons: follow up s/p US 10/09/24 Intake Note: Patient presents for follow up 10/09/24 US. No complaints. Accompanied by: Daughter Allergies icodextrin Allergy (Mild, Verified 10/16/24 10:33) Rash oxycodone Adverse Reaction (Severe, Verified 10/16/24 10:33) rash tramadol Adverse Reaction (Severe, Verified 10/16/24 10:33) rash CLOROXINE Allergy (Unknown, Uncoded 09/25/24 11:14) RASH HPI HPI follow up s/p US 10/09/24: Details: Natali is presenting today on a follow up to US, performed on 10/09. She continues with the wound on her right heel/foot and continues with Wound Care. She continues with HD on MWF. She has no new concerns today. 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 Hypoglycemia due to type 1 diabetes mellitus Hypertension Dyslipidemia Diabetic polyneuropathy associated with type 1 diabetes mellitus Diabetes type 1, uncontrolled ESRD (end stage renal disease) on dialysis ESRD (end stage renal disease) Surgical History History of hemodialysis Hx of amputation Hx of eye surgery Hx of section Family History Father Diabetes mellitus Mother Thyroid disease Pre-diabetes HTN (hypertension) Acute depression Arthritis Social History Household Members: Significant Other Household Members Other:: / - 6 y/o daughter Housing: Apartment Do you presently have visiting nurse or other home services: No Alcohol intake: never Patient Tobacco Use Status: Never used Tobacco service: No Current occupational status: disabled Review of Systems Const Reports as per HPI and Denies weakness ENT Reports Normal hearing present and Denies dizziness Card Reports as per HPI, Denies chest pain, Denies chest pain at rest, Denies chest pain with activity, Denies dyspnea and Denies dyspnea on exertion Resp Reports as per HPI, Denies cough, Denies dyspnea and Denies dyspnea on exertion GI Reports as per HPI, Denies abdominal pain, Denies nausea and Denies vomiting Musc Denies numbness Skin/Breast Reports as per HPI, Denies erythema and Denies wounds Neuro Reports Normal hearing present, Denies dizziness, Denies numbness, Denies Sensory deficit (Neuro) and Denies weakness Psych Reports no additional complaints Endo Reports no additional complaints Physical Exam Const General: healthy appearing and no acute distress Orientation/consciousness: patient oriented x3 HEENT Head: Yes normal to inspection Ears: hearing grossly normal bilaterally Mouth: Normal oral and palatal mucosa present Resp Effort & Inspection: normal respiratory effort and able to speak in complete sentences Auscultation: clear to auscultation bilaterally Cardio Jugular venous distension: no JVD Rate: regular rate Rhythm: regular rhythm Heart sounds: S1 normal heart sound present and S2 normal heart sound present Bruits: no abdominal aortic bruits, no carotid bruits, no femoral bruits and no renal bruits Peripheral pulses: Peripheral pulses 2+ throughout GI Inspection: Yes normal to inspection Palpation (GI): No Abdominal aortic bruit present Skin General skin exam: no rashes or lesions noted Wounds: no wounds Hair: normal Neuro General: patient oriented x3 Cranial nerves: Yes Normal hearing present Cognition (Neuro): normal cognition Gait exam (Neuro): Normal gait present Motor exam (neuro): 5/5 motor strength present throughout Sensory Exam: No Sensory deficit (Neuro) Extrem Other: Right heel/foot: bandaged; not taken down. Palpable DP pulse. Trace peripheral edema noted. General: Yes normal to inspection, Yes full ROM, Yes capillary refill normal and Yes normal gait Results Reviewed Results Reviewed: Brief summary of venous insufficiency testing is as follows: right great saphenous vein: negative right small saphenous vein: negative right accessory vein: none present left great saphenous vein: negative left small saphenous vein: negative left accessory vein: none present Please note there is no evidence of any venous aneurysms or significant tortuosity Assessment & Plan Assessment & Plan (1) Varicose veins of right lower extremity with inflammation: Code(s): I83.11 - Varicose veins of right lower extremity with inflammation Category: Medical Plan: Natali is presenting today for a follow up to US, performed on 10/09. The US was negative for insufficiency. She continues with wound care. We discussed continuing with the dressing changes/care that they recommend. We discussed continuing with conservative measures. I discussed with her that if any vascular concerns arise in the future or has any new wounds, to reach back out to us. We discussed the importance of blood sugar control. She is on the transplant list for [facility]. Thank you for allowing us to participate in the patient's care. If there are any questions or concerns, please do not hesitate to reach out to us. Coding Level of Care Code Est Pt Level 4 (58826) Diagnoses Varicose veins of right lower extremity with inflammation I83.11 Comment review of US
--- OUTSIDE RECORDS SUMMARY | 2024-10-16 11:07 | XMS_ITS | Encounter Summary ---
Author Organization [facility] Address [address] [facility] [address] [place] [address] Phone Care Team Providers Care Nanotechnologist Name Role Phone Azucena Bradley MD Primary Care Provider Reason for Visit * Reason Comments Med Refill Encounter Details Date Type Department Care Team ([facility] st Contact Info) Description 06/04/2023 Refill [facility] [address] [place] [address] [place] [phone] Wesley Pagan MD [address] [facility] [address] [place] [phone] Social History Tobacco Use Types Packs/Day Years [...] on filedocumented in this encounter Care Teams Nanotechnologist Relationship Specialty Start Date End Date Azucena Bradley MD [address] [place] [address], Floor [address] [place] [address] PCP - General Internal Medicine 01/22/24 documented as of this encounter
--- OUTSIDE RECORDS SUMMARY | 2024-10-16 11:08 | XMS_ITS | Encounter Summary ---
Demographics Address [address] [place] [address] Mobile Phone Home Phone Preferred Language Sami Marital Status Christian Affiliation Unknown Race White Ethnic Group Unknown Author Organization [facility] Address [address] [place] [address] Care Team Providers Care Learning Disabled Teacher Name Role Phone Ally Ferreira Primary Care Provider [phone] Encounter Details Date Type Department Care Team (Late st Contact Info) Description 02/09/2021 Orders Only [facility] Nuclear Medicine [address] [place] [phone] Shiva Druan MD [address] [place] [id number] Social History Tobacco Use Types Packs/Day Years [...] Info) Description 02/05/2025 11:00 AM EDT Follow-Up [facility] Renal Transplant [address] [place] [address] Vinicio Harris MD [address] [place] [address] 02/05/2025 11:45 AM EDT Follow-Up [facility] Renal Transplant [address] [place] [address] 02/05/2025 12:30 PM EDT Social Work [facility] Renal Transplant [address] [place] [address] Michelet Swartz documented as of this encounter Visit Diagnoses Not on filedocumented in this encounter Care Teams Learning Disabled Teacher Relationship Specialty Start Date End Date Ally Ferreira [address] [place] [address] PCP - General 02/04/24 documented as of this encounter
--- OUTSIDE RECORDS SUMMARY | 2024-10-16 11:08 | XMS_ITS | Encounter Summary ---
Author Organization [employer] Address [address] [facility] 7 [place] [address] Care Team Providers Care And Drying Supervisor Cooking Casing Name Role Phone Ally Ferreira MD Primary Care Pro vider Encounter Details Date Type Department Care Team ([facility] st Contact Info) Description 07/23/2024 Telephone [facility] MEDICINE [address] [place], [place] [phone] Ally Ferreira MD [address] [place], [place] [phone] Social History Tobacco Use Types Packs/Day Years [...] Pt stated she is on her way. Commercial Credit Specialist advise [facility] hours. documented in this encounter Plan of Treatment Upcoming Encounters Date Type Department Care Team (Late st Contact Info) Description 11/04/2024 10:00 AM EDT Office Visit [facility] MEDICINE [address] [place] [address] Ally Ferreira MD [address] [place] [address] 11/25/2024 1:00 PM EDT Office Visit [facility] OPTOMETRY [address] [place] [address] Abelardo, Antoinette, OD [address] [place] [address] documented as of this encounter Visit Diagnoses Not on filedocumented in this encounter Additional Health Concerns Assessment Noted Time PHQ-9 Depression Total Score: 0 07/31/19 24 11:09 AM EDT documented as of this encounter Care Teams And Drying Supervisor Cooking Casing Relationship Specialty Start Date End Date Ally Ferreira MD [address] [place] [address] PCP - General Internal Medicine 07/25/22 documented as of this encounter
== END 2024-10-16 10:48 | disposition home or self-care (01) ==
LOC: HO.HVS 10:25
PROVIDERS: PCP Student in an Organized Health Care Education/Training Program; Visit Provider Physician Assistant Surgical
DX: I83.11 Varicose veins of right lower extremity with inflammation (principal)
CPT/HCPCS: 99214

== ENCOUNTER → 2024-10-16 10:24 | Outpatient (BNVA) | payer MEDICARE, MEDICAID, SELFPAY | PROVIDERS: PCP Student in an Organized Health Care Education/Training Program; Visit Provider Physician Assistant Surgical | DX: I83.11 Varicose veins of right lower extremity with inflammation (principal) | CPT/HCPCS: 99212 ==

== ENCOUNTER 2024-10-21 12:33 | Outpatient (AMB) | payer MEDICARE, MEDICAID, SELFPAY ==
--- NOTE | 2024-10-21 12:57 | A.OFFVIS_ITS ---
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: T1DM Gyro Compass Tester Required: No Accompanied by: Self / Same As Patient Allergies icodextrin Allergy (Mild, Verified 10/16/24 10:33) Rash oxycodone Adverse Reaction (Severe, Verified 10/16/24 10:33) rash tramadol Adverse Reaction (Severe, Verified 10/16/24 10:33) rash CLOROXINE Allergy (Unknown, Uncoded 09/25/24 11:14) RASH HPI Comprehensive Diabetes Asmnt Most Recent Diabetes Results: 2 Hemoglobin A1c 9.3 % 08/12/19 Cholesterol, (<200) 203 mg/dL H 09/06/23 HDL Cholesterol, (>40) 29 mg/dL L 09/06/23 Triglycerides, (<150) 256 mg/dL H 09/06/23 Creatinine, (0.5-1.4) 6.66 mg/dL H* 09/06/23 BUN, (9-16) 22 mg/dL H 09/06/23 Sodium, (135-145) 141 mmol/L 09/06/23 Potassium, (3.3-5.1) 4.4 mmol/L 09/06/23 Chloride, (96-108) 90 mmol/L L 09/06/23 Carbon Dioxide, (22-29) 36 mmol/L H 09/06/23 Calcium, (8.4-10.2) 9.5 mg/dL 09/06/23 AST, (5-31) 26 U/L 09/06/23 ALT, (0-31) 31 U/L 09/06/23 Total Protein, (6.5-8.0) 8.4 g/dL H 09/06/23 Albumin, (3.5-5.0) 4.0 g/dL 09/06/23 [facility] Medical History Foot ulcer Asthma Dyspnea Pulmonary nodules Chronic allergic rhinitis Allergies Kidney failure ESRD (end stage renal disease) on dialysis Anemia HTN (hypertension) ESRD (end stage renal disease) 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 Hypoglycemia due to type 1 diabetes mellitus Hypertension Dyslipidemia Diabetic polyneuropathy associated with type 1 diabetes mellitus Diabetes type 1, uncontrolled ESRD (end stage renal disease) on dialysis ESRD (end stage renal disease) Surgical History History of hemodialysis Hx of amputation Hx of eye surgery Hx of section Family History Father Diabetes mellitus Mother Thyroid disease Pre-diabetes HTN (hypertension) Acute depression Arthritis Social History Household Members: Significant Other Household Members Other:: / - 6 y/o daughter Housing: Apartment Do you presently have visiting nurse or other home services: No Alcohol intake: never Patient Tobacco Use Status: Never used Tobacco service: No Current occupational status: disabled Assessment & Plan Assessment & Plan (1) Diabetes type 1, uncontrolled: Code(s): E10.65 - Type 1 diabetes mellitus with hyperglycemia Plan Automode 99% Basal: 59% Bolus:41% Patient continues to struggle bolusing prior to meals. when she does bolus for meals she generally boluses after her glucose is already increasing. Explained to patient that in order to get better control of glucose she needs to consistently enter carbs before meals and when glucose levels are high to correct hyperglycemia. Explained to patient that pump keeps track of the amount of insulin that it is given her, so she does not need to reduce recommended boluses in order to avoid hypoglycemia. If patient is concerned about hypoglycemia we can adjust pump settings. We can not adjust pump settings until we have a better idea about how current ratios are working. Patient agreed to work towards entering carbs at meals, and correcting high glucose levels Reinforced with patient the importance of bolusing for meals 15 minutes before eating Showed patient on Omnipod 5 evp managing director how to switch from Dexcom G 6 sensor to Dexcom G7 sensor Troubleshooting after starting new pod or inserting new insulin set: Occlusion, adhesive tape sensitivity, redness Check BG 2 hours after site change Patient understands the basic concepts of pump therapy, how to give insulin for meals and snacks, how to troubleshoot for hyper and hypoglycemia. Setting verified by CDCES, no changes made to patient's pump settings at today's visit Basal rate(s) (units/hour) : 12 AM? to 12 AM 1.25 units / hr Bolus setting Insulin Carbohydrate Ratio (s) 12 AM? to 12 AM 1:5 Correction Factor / Sensitivity Factor 12 AM? to 12 AM? 1:33 Active Insulin Time:?2 hours Target(s): 12 AM? to 12 AM 110 mg/dL Correction Threshold 12 AM? to 12 AM 110 mg/dL Patient will follow up with CDE as instructed Patient will contact CDE with questions or concerns, patient given IT number to support in any technical issues related to insulin pump Coding Level of Care Code Est Pt Level 1 (71344) Diagnoses Diabetes type 1, uncontrolled E10.65
--- OUTSIDE RECORDS SUMMARY | 2024-10-21 13:18 | XMS_ITS | Encounter Summary ---
Demographics Address [address] [place] [address] Mobile Phone Home Phone Preferred Language Malay Marital Status Congregation Affiliation Unknown Race White Ethnic Group Unknown Author Organization [facility] Address [address] [place] [address] Care Team Providers Care Field Evidence Technician Name Role Phone Ally Ferreira Primary Care Provider [phone] Encounter Details Date Type Department Care Team (Late st Contact Info) Description 02/09/2021 Orders Only [facility] Nuclear Medicine [address] [place] [phone] Shiva Duran MD [address] [place] [phone] Social History Tobacco Use Types Packs/Day Years [...] Info) Description 02/05/2025 11:00 AM EDT Follow-Up [facility] [address] [place] [phone] Vinicio Harris MD [address] [place] [address] 02/05/2025 11:45 AM EDT Follow-Up [facility] [address] [place] [phone] 02/05/2025 12:30 PM EDT Social Work [facility] [address] [place] [address] Michelet Swartz documented as of this encounter Visit Diagnoses Not on filedocumented in this encounter Care Teams Field Evidence Technician Relationship Specialty Start Date End Date Ally Ferreira [address] [place] [phone] PCP - General 02/04/24 documented as of this encounter
--- OUTSIDE RECORDS SUMMARY | 2024-10-21 13:18 | XMS_ITS | Clinical Summary ---
Author Organization [address] [facility] Address [address] [place] [address] Phone Care Team Providers Care Alley Tender Name Role Phone Mt Hooker MD Primary Care Provider [phone] Allergies No known active allergies Medications CALCITRIOL [...] Encounters Date Type Department Care Team Description 08/19/2024 10:30 AM EDT Office Visit Orthopedic Surgery [facility] [address] [place] [phone] Siva Lino, HATTIE Controlled type 2 diabetes with neuropathy ([facility] V24, [facility] V28) (Primary Dx); Ulcer of right heel, with fat layer exposed ([facility] V24, [facility] V28); Hammertoes of both feet; Dermatophytosis, nail from Last 3 Months Immunizations Name Administration Dates Next Due COVID-19 (Moderna/Spikevax) 12yo and older 01/26 Moderna SARS-CoV-2 COVID-19, mRNA, LNP-S, preservative free 07/09/2020,05/26/2020 Medical History Medical History Date Comments Kidney failure DX:Kidney failur e Diabetes mellitus ([facility] V24, [facility] V28) DX:Diabetes mellitus (HCC) Diabetic neuropathy ([facility] V24, [facility] V28) DX:Diabetic neuropathy (HCC) Type 1 diabetes ([facility] V24, [facility] V28) DX:Type 1 diabetes ([facility]) Hypertension DX:Hypertension Social History Tobacco Use Types [...] - - Weight 67.1 kg (148 lb) 08/19/2024 10:37 AM EDT Height 154.9 cm (5' 0.98 ) 08/19/2024 10:37 AM E DT Body Mass Index 27.98 08/19/2024 10:37 AM EDT Plan of Treatment Upcoming Encounters Date Type Department Care Team (Late st Contact Info) Description 10/23/2024 1:45 PM EDT Office Visit Orthopedic Surgery - [facility] [address] [facility] [address] [place] [phone] Siva Lino, DPM 175 [facility] [address] [place] [address] Health Maintenance Due Date Last Done Comments Diabetes: Annual Foot Exam 09/09/2001 Diabetes: Annual Retina Eye Exam 09/09/2001 Medicare Annual Wellness Visit 03/14/2022 Social Influencers of Health Screening 03/14/2022 Diabetes: Annual GFR (Glomerular Filtration Rate) 04/06/2023 04/06/2022 Diabetes: Annual Urine Albumin-Creatinine Ratio (uACR) 05/06/2024 Hypertension/CHF/CAD Annual BMP Blood Test 05/06/2024 04/06/2022 Depression Screening 07/30/2024 07/31/2023 Influenza Vaccine (#1) 2024 , 01/11/2023, 05/27/2019, Additional history exists Diabetes: Blood Sugar Control Test (HGBA1C) 01/15/2025 07/16/2024, 07/16/2024, 04/23/2024, Additional history exists Cervical Cancer Screening: Pap Smear 05/17/2026 05/17/2023 Cholesterol Screening (Lipid Panel) 07/16/2029 07/16/2024, 04/23/2024, 09/06/2023 DTaP,Tdap,and Td Vaccines (10 - Td or Tdap) 12/15/2029 12/16/2019, 03/24/2015, 01/31/2012, Additional history exists Pneumococcal Vaccine: Pediatrics (0 to 5 Years) and At-Risk Patients (6 to 49 Years) (3 of 3 - PCV20 or [...] 09/06/2023 , 10/13/2021, 11/30/2020, Additional history exists COVID-19 Vaccine Completed 05/13/2024, [...] Health Maintenance Results * Hemoglobin A1c (02/27/2023) [facility] Hemoglobin A1C 0.0 % Comment:no interpretation, a bstracted Blood Venous blood specimen / Unknown Historical Provider LAB BLOOD ORDERABLES Araceli l Result * Annual BMP Blood Test (04/06/2022) [facility] Annual BMP Blood Test abstracted Historical Provider HEALTH MAINTENANCE Final Result * Hepatitis C Screening (11/30/2020) [facility] Hepatitis C Screening abstracted Historical Provider HEALTH MAINTENANCE Final Result from Last 3 Months or Most Recently Relevant to Health Maintenance Insurance MEDICAID - [place] MEDICARE Care Teams Alley Tender Relationship Specialty Start Date End Date Mt Hooker MD [address] [place] [phone] PCP - General Internal Medicine 09/26/21
--- OUTSIDE RECORDS SUMMARY | 2024-10-21 13:18 | XMS_ITS | Encounter Summary ---
Author Organization [employer] Address [address] [facility] 7 [place] [address] Care Team Providers Care Sewage Disposal Engineer Name Role Phone Ally Ferreira MD Primary Care Pro vider Encounter Details Date Type Department Care Team ([facility] st Contact Info) Description 07/23/2024 Telephone [facility] MEDICINE [address] [place], [place] [phone] Ally Ferreira MD [address] [place], [place] [phone] Social History Tobacco Use Types Packs/Day Years [...] Pt stated she is on her way. Cake Froster advise [facility] hours. documented in this encounter Plan of Treatment Upcoming Encounters Date Type Department Care Team (Late st Contact Info) Description 11/04/2024 10:00 AM EDT Office Visit [facility] MEDICINE [address] [place] [address] Ally Ferreira MD [address] [place] [address] 11/25/2024 1:00 PM EDT Office Visit [facility] OPTOMETRY [address] [place] [address] Abelardo, Antoinette, OD [address] [place] [address] documented as of this encounter Visit Diagnoses Not on filedocumented in this encounter Additional Health Concerns Assessment Noted Time PHQ-9 Depression Total Score: 0 07/31/19 24 11:09 AM EDT documented as of this encounter Care Teams Sewage Disposal Engineer Relationship Specialty Start Date End Date Ally Ferreira MD [address] [place] [address] PCP - General Internal Medicine 07/25/22 documented as of this encounter
--- OUTSIDE RECORDS SUMMARY | 2024-10-21 13:18 | XMS_ITS | Encounter Summary ---
Author Organization [facility] Address [address] [facility] [address] [place] [address] Phone Care Team Providers Care Buckle Stringer Name Role Phone Azucena Bradley MD Primary Care Provider [phone] Reason for Visit * Reason Comments Med Refill Encounter Details Date Type Department Care Team ([facility] st Contact Info) Description 06/04/2023 Refill [facility] [address] [place] [phone] Wesley Pagan MD [address] [facility] [address] [place] [phone] Social History Tobacco Use Types Packs/Day Years [...] on filedocumented in this encounter Care Teams Buckle Stringer Relationship Specialty Start Date End Date Azucena Bradley MD [address] [place] [address], Floor [address] [place] [address] PCP - General Internal Medicine 01/22/24 documented as of this encounter
== END 2024-10-21 12:58 | disposition home or self-care (01) ==
LOC: HO.ENCR 12:33
PROVIDERS: PCP Student in an Organized Health Care Education/Training Program; Visit Provider Registered Nurse Diabetes Educator
DX: E10.65 Type 1 diabetes mellitus with hyperglycemia (principal)

== ENCOUNTER → 2024-10-21 12:33 | Outpatient (BNVA) | payer MEDICARE, MEDICAID, SELFPAY | PROVIDERS: PCP Student in an Organized Health Care Education/Training Program; Visit Provider Registered Nurse Diabetes Educator | DX: E10.65 Type 1 diabetes mellitus with hyperglycemia (principal); Z96.41 Presence of insulin pump (external) (internal); E10.40 Type 1 diabetes mellitus with diabetic neuropathy, unspecified; E10.22 Type 1 diabetes mellitus with diabetic chronic kidney disease; I12.0 Hypertensive chronic kidney disease with stage 5 chronic kidney disease or end stage renal disease; N18.6 End stage renal disease; Z99.2 Dependence on renal dialysis | CPT/HCPCS: 99211 ==

== ENCOUNTER 2024-11-18 10:26 | Outpatient (AMB) | payer MEDICARE, MEDICAID, SELFPAY ==
[2024-11-18 10:27] VITALS: BP 116/60; PULSE 88; O2SAT 96; BMI 29.6
--- NOTE | 2024-11-18 10:27 | A.OFFVIS_ITS ---
Vital Signs 11/18/24 10:27 Height 5 ft 1 in Weight 156 lb 8.451 oz BMI 29.6 BP 116/60 Blood Pressure Location Rt brachial Position Sitting Pulse 88 Pulse Source Pulse Oximeter Pulse Oximetry (%) 96 Oxygen Delivery Method Room Air Intake Visit Reasons: Pulmonary Nodules Allergies icodextrin Allergy (Mild, Verified 11/18/24 10:32) Rash oxycodone Adverse Reaction (Severe, Verified 11/18/24 10:32) rash tramadol Adverse Reaction (Severe, Verified 11/18/24 10:32) rash CLOROXINE Allergy (Unknown, Uncoded 09/25/24 11:14) RASH HPI Comments Details: The patient is a 34 year woman with known end-stage renal disease on dialysis who apparently has been evaluated for kidney transplantation. As part of the workup the patient did undergo CT scan of the abdomen noting some small right lower lobe pulmonary nodules on the lung windows. Some of the nodules appear to be more of 3 in but. Therefore, the patient was referred to Pulmonary. Currently patient denies any significant shortness of breath. She does have significant nasal congestion and she does have underlying allergies. She has a hard time breathing because of the significant nasal congestion. The patient had been receiving allergy shots in the past. She denies any significant wheezing. The patient does not have any inhalers at this time. I did review her CT scan of the chest demonstrating evidence of tree-in-bud suggesting bronchiolitis. It could have been related to a viral syndrome. The patient also had a CT scan of the chest from October 2021 which white also personally reviewed. At that point the patient had Significant right lower lobe pneumonia. no pulmonary nodules were identified but there were in the however by the airspace disease. The patient will need a formal CT scan of the chest in the near future. 06/14/2023 the patient is here for a pulmonary follow-up visit. The patient overall has been feeling better. The singular in the antihistamine therapy has improved his her symptoms significantly. We did evaluate her blood work she continues to have this persistent eosinophilia consistent with eosinophilic asthma. based on the fact that she did better on the allergy medication she does not need to consider biologics at this time. Explained to her that if her symptoms were to worsen biologic injection will be very effective for her. In addition to that we did review her last CT scans. She had a CT scan back in 2021 demonstrating calcified and noncalcified pulmonary nodules and also the CT scan of the abdomen. Will plan to have her return in 6 months and will repeat the CT scan prior to that visit. Meantime she continues to form the peritoneal dialysis. She is still working closely with the [facility] transplant team and still awaiting for a donor kidney. 12/13/2023 the patient is here for a pulmonary follow-up visit. Overall she is doing okay. She does complaint of nasal congestion postnasal drip. Sometimes he can be embarrassing for her. Moderate severity. She does get some relief from the singular but not completely. She has been using her respiratory inhalers with good effect. She did have a CT scan of the chest which I personally reviewed. She does have pulmonary nodules. Also has some areas of calcifications likely secondary to her dialysis. She is working on her diabetes control now has an insulin pump and her hemoglobin A1c is improved. The pulmonary nodules do not appear to be concerning she does have some areas of bronchiolitis but minimal. I do not see anything on the CT scan that would explain her back pain. As unlikely to be related to any pleural or pulmonary manifestation. However, she does have some shortness of breath with activity. Sometimes shortness of breath and chest tightness. Will provide her with a rescue inhaler that she can use as needed. In the meantime she also have a pulmonary function study which will review when she comes back for follow-up. 07/17/2024 the patient is here for a pulmonary follow-up visit. Patient continues to have significant respiratory symptoms. Significant nasal obstruction moderate severity and has hard time breathing through her nose. She also has a postnasal drip. She also complains of chest tightness and wheezing. She does use her rescue medication, albuterol but she does not have a maintenance inhaler. She also try the ipratropium nasal spray. She already tried and failed the fluticasone. She did have some allergies noted. The patient needs to start maintenance inhalers at this time. In addition to that she will continue with her allergy medication. She had been taking Zyrtec daily. Will increase it to twice a day. We have to be careful with her dialysis days. In addition to that will have her get some blood work to monitor and check her allergy levels. With her significant uncontrolled asthma and chronic rhinitis he may be a good candidate for biologic therapy. 11/18/2024 the patient is here for a pulmonary follow-up visit. Overall she is doing fairly okay. Although she does complain of her nasal congestion and postnasal drip and cough. It bothers her. She did try some nasal sprays but they were not really effective for her. In the meantime she has been using her respiratory inhalers with good effect. Denies any significant shortness of breath with activity or wheezing. The patient did have a CT scan back in December 2023 which we personally reviewed demonstrating some small pulmonary nodules in addition to that she does have some tree-in-bud appearance. Very minimal. However, the patient is currently on dialysis and looking to be placed on the renal transplant list so therefore we need to make sure the nodule are stable and make sure she does not have an ongoing infectious process. Will go ahead and treat her with doxycycline for potential sinusitis and also will get another repeat CAT scan to review the findings. The patient will follow-up sometime in the fall will look at the CAT scan together see if any additional interventions are required. She will be seeing Allergy and I believe she also may benefit from laryngoscopy from ENT. 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 Hypoglycemia due to type 1 diabetes mellitus Hypertension Dyslipidemia Diabetic polyneuropathy associated with type 1 diabetes mellitus Diabetes type 1, uncontrolled ESRD (end stage renal disease) on dialysis ESRD (end stage renal disease) Surgical History History of hemodialysis Hx of amputation Hx of eye surgery Hx of section Family History Father Diabetes mellitus Mother Thyroid disease Pre-diabetes HTN (hypertension) Acute depression Arthritis Social History Household Members: Significant Other Household Members Other:: / - 6 y/o daughter Housing: Apartment Do you presently have visiting nurse or other home services: No Alcohol intake: never Patient Tobacco Use Status: Never used Tobacco service: No Current occupational status: disabled Review of Systems Const Denies fever(s) Eyes Denies change in vision ENT Reports nasal congestion, Reports nasal discharge, Reports nasal obstruction and Reports post nasal drip Card Denies chest pain Resp Reports cough and Denies wheezing GI Reports no additional complaints Reports as per HPI Musc Reports no additional complaints Skin/Breast Denies rash Neuro Reports no additional complaints Binh/Lymph Denies lymphadenopathy Aller/Immun Denies wheezing Physical Exam Vital Signs: Last Vital Signs Pulse 88 11/18/24 10:27 BP 116/60 11/18/24 10:27 Pulse Ox 96 11/18/24 10:27 Oxygen Delivery Method Room Air 11/18/24 10:27 BMI result Body Mass Index 29.6 Const General: comfortable HEENT General nose exam: Abnormal mucous membranes and turbinates present erythematous and no nasal polyps Neck Neck: Yes supple Chest Chest palpation & inspection: normal inspection of the chest Resp Effort & Inspection: normal respiratory effort and prolonged expiratory phase Auscultation: diminished lung sounds Cardio Heart sounds: S1 normal heart sound present and S2 normal heart sound present GI Palpation (GI): Soft to palpation Skin General skin exam: no rashes or lesions noted Extrem General: Yes no clubbing, cyanosis or edema Assessment & Plan Assessment & Plan (1) Chronic allergic rhinitis: Code(s): J30.9 - Allergic rhinitis, unspecified Category: Medical (2) Allergies: Code(s): T78.40XA - Allergy, unspecified, initial encounter Category: Medical Qualifiers: Encounter type: initial encounter Qualified Code(s): T78.40XA - Allergy, unspecified, initial encounter (3) Pulmonary nodules: Code(s): R91.8 - Other nonspecific abnormal finding of lung field Category: Medical (4) Dyspnea: Code(s): R06.00 - Dyspnea, unspecified Category: Medical Qualifiers: Dyspnea type: dyspnea on exertion Qualified Code(s): R06.09 - Other forms of dyspnea (5) Asthma: Code(s): J45.909 - Unspecified asthma, uncomplicated Category: Medical Qualifiers: Asthma complication type: uncomplicated Asthma persistence: persistent Asthma severity: moderate Qualified Code(s): J45.40 - Moderate persistent asthma, uncomplicated Plan Advair HFA continue flonase continue claritin continue Singulair MATI as needed CT chest Doxycycline for sinusitis F/U 4-6 months Orders: Orders CT chest wo IV con Today R91.8 - Other nonspecific abnormal finding of lung field Medications: New doxycycline monohydrate 100 mg PO BID 28 tabs 0RF 14 days Coding Level of Care Code Est Pt Level 4 (41877) Complex EM visit Add On G2211 Diagnoses Chronic allergic rhinitis J30.9 Allergy, initial encounter T78.40XA Encounter type: initial encounter Pulmonary nodules R91.8 Dyspnea on exertion R06.09 Dyspnea type: dyspnea on exertion Moderate persistent asthma without complication J45.40 Asthma complication type: uncomplicated Asthma persistence: persistent Asthma severity: moderate Time Spent (min) 17
--- OUTSIDE RECORDS SUMMARY | 2024-11-18 11:07 | XMS_ITS | Encounter Summary ---
Demographics Address [address] [place] [address] Mobile Phone Home Phone Preferred Language Armenian Marital Status Zoroastrian Affiliation Unknown Race White Ethnic Group Unknown Author Organization [facility] Address [address] [place] [address] Care Team Providers Care Marker Machine Name Role Phone Ally Ferreira Primary Care Provider [phone] Encounter Details Date Type Department Care Team (Late st Contact Info) Description 02/09/2021 Orders Only [facility] Nuclear Medicine [address] [place] [address] Shiva Duran MD [address] [place] [address] Social History Tobacco Use Types Packs/Day Years [...] Info) Description 02/05/2025 11:00 AM EDT Follow-Up [facility] Renal Transplant [address] [place] [address] Vinicio Harris MD [address] [place] [address] 02/05/2025 11:45 AM EDT Follow-Up [facility] Renal Transplant [address] [place] [address] 02/05/2025 12:30 PM EDT Social Work [facility] Renal Transplant [address] [place] [address] Michelet Swartz documented as of this encounter Visit Diagnoses Not on filedocumented in this encounter Care Teams Marker Machine Relationship Specialty Start Date End Date Ally Ferreira [address] [place] [address] PCP - General 02/04/24 documented as of this encounter
--- OUTSIDE RECORDS SUMMARY | 2024-11-18 11:07 | XMS_ITS | Encounter Summary ---
Author Organization [facility] Address [address] [facility] [address] [place] [address] Phone Care Team Providers Care Tint Layer Name Role Phone Azucena Bradley MD Primary Care Provider Reason for Visit * Reason Comments Med Refill Encounter Details Date Type Department Care Team ([facility] st Contact Info) Description 06/04/2023 Refill [facility] [address] [place] [phone] Wesley Pagan MD [address] [facility] [address] [place] [phone] Social History Tobacco Use Types Packs/Day Years [...] on filedocumented in this encounter Care Teams Tint Layer Relationship Specialty Start Date End Date Azucena Bradley MD [address] [place] [address], Floor 3 [place] [address] PCP - General Internal Medicine 01/22/24 documented as of this encounter
--- OUTSIDE RECORDS SUMMARY | 2024-11-18 11:07 | XMS_ITS | Encounter Summary ---
Author Organization [employer] Address [address] 7t [place] [address] Care Team Providers Care Conventional Mortgage Underwriter Name Role Phone Ally Ferreira MD Primary Care Pro vider Reason for Visit * Reason Comments Med Refill Encounter Details Date Type Department Care Team ([facility] st Contact Info) Description 11/09/2024 Refill [facility] MEDICINE [address] [place], [place] [phone] Kaur Hernandez MD [address] [place] [address] Hypertension, unspecified type Social History Tobacco Use Types Packs/Day Years Used Date Smoking Tobacco: Never Smokeless Tobacco: Never Alcohol Use Standard Drinks/Week Comments Not Currently 0 (1 standard drink = 0.6 oz pur e alcohol) Depression Answer Date Recorded Patient Health Questionnaire-9 Score 0 09/02/2024 Patient Health Questionnaire-9 Score 0 09/02/2024 Last PHQ-9: Questionnaire Data Not on file 0 09/02/2024 Housing Stability Answer Date Recorded What is your housing situation today? I have hermann miramontes 08/26/[address] you li ve. Do you have problems with any of the following? None of the above 08/26/2024 Food Insecurity Answer Date Recorded Within the past 12 months, y ou worried that your food would run out before you got money to buy more: Never True 08/26/2024 Within the past 12 months,th e food you bought just didn't last and you didn't have enough money to get more: Never True Transportation Answer Date Recorded In the past 12 months, has l ack of transportation kept you from medical appts, meetings, work or from getting things needed for daily living? No 08/26/2024 Utilities Answer Date Recorded In the past 12 months, has t he electric, gas, oil or water company threatened to shut off services in your home? No 08/26/2024 Depression Answer Date Recorded Patient Health Questionnaire-2 Score 0 09/02/2024 Internet Access Answer Date Recorded Internet Access Q1 Yes 08/26/2024 Internet Access Q2 Not on file 08/26/2024 Comments No Sex and Gender Information Value Date Recorded Sex Assigned at Female 02/13/2022 10:17 AM EDT Legal Sex Female 10:17 AM EDT Gender Identity Female 02/13/2022 10:17 AM EDT Sexual Orientation Straight 04/26/2023 9: 30 AM EST documented as of this encounter Plan of Treatment Upcoming Encounters Date Type Department Care Team (Late st Contact Info) Description 11/25/2024 1:00 PM EDT Office Visit [facility] OPTOMETRY [address] [place], [place] [phone] Antoinette Zhou, OD [address] [place] [address] documented as of this encounter Visit Diagnoses Diagnosis Hypertension, unspecified type documented in this encounter Additional Health Concerns Assessment Noted Time PHQ-9 Depression Total Score: 0 09/03/19 25 10:22 AM EDT documented as of this encounter Care Teams Conventional Mortgage Underwriter Relationship Specialty Start Date End Date Ally Ferreira MD [address] [place] [address] PCP - General Internal Medicine 07/25/22 documented as of this encounter
--- OUTSIDE RECORDS SUMMARY | 2024-11-18 11:07 | XMS_ITS | Clinical Summary ---
Author Organization [facility] Address [address] [place] [address] Phone Care Team Providers Care Wheel Braider Name Role Phone Mt Hooker MD Primary Care Provider [phone] Allergies No known active allergies Medications CALCITRIOL [...] Encounters Date Type Department Care Team Description 10/23/2024 1:45 PM EDT Office Visit Orthopedic Surgery [facility] [address] [phone] Siva Lino DPM Controlled type 2 diabetes with neuropathy ([facility] V24, [facility] V28) (Primary Dx); Ulcer of right heel, with fat layer exposed ([facility] V24, [facility] V28); Hammertoes of both feet; Dermatophytosis, nail 08/19/2024 10:30 AM EDT Office Visit Orthopedic Surgery [facility] [address] [phone] Siva Lino DPM Controlled type 2 diabetes with neuropathy ([facility] V24, [facility] V28) (Primary Dx); Ulcer of right heel, with fat layer exposed ([facility] V24, [facility] V28); Hammertoes of both feet; Dermatophytosis, nail from Last 3 Months Immunizations Name Administration Dates Next Due COVID-19 (Moderna/Spikevax) 12yo and older 01/26 Moderna SARS-CoV-2 COVID-19, mRNA, LNP-S, preservative free 07/09/2020,05/26/2020 Medical History Medical History Date Comments Kidney failure DX:Kidney failur e Diabetes mellitus ([facility] V24, [facility] V28) DX:Diabetes mellitus (HCC) Diabetic neuropathy ([facility] V24, [facility] V28) DX:Diabetic neuropathy (HCC) Type 1 diabetes ([facility] V24, [facility] V28) DX:Type 1 diabetes (HCC) Hypertension DX:Hypertension Social History Tobacco Use Types [...] Care Team (Late st Contact Info) Description 12/25/2024 9:15 AM EDT Office Visit Orthopedic Surgery - [place] [address] [phone] Siva Lino DPM [address] [address] Health Maintenance Due Date Last Done Comments Diabetes: Annual Foot Exam 09/09/2001 Diabetes: Annual Retina Eye Exam 09/09/2001 Medicare Annual Wellness Visit 03/14/2022 Social Influencers of Health Screening 03/14/2022 Diabetes: Annual GFR (Glomerular Filtration Rate) 04/06/2023 04/06/2022 Depression Screening 04/16/2024 Diabetes: Annual Urine Albumin-Creatinine Ratio (uACR) 05/06/2024 Hypertension/CHF/CAD Annual BMP Blood Test 05/06/2024 04/06/2022 Influenza Vaccine (#1) 2024 , 01/11/2023, 05/27/2019, Additional history exists Diabetes: Blood Sugar Control Test (HGBA1C) 04/17/2025 10/15/2024, 10/15/2024, 07/16/2024, Additional history exists Cervical Cancer Screening: Pap Smear 05/17/2026 05/17/2023 Cholesterol Screening (Lipid Panel) 10/15/2029 10/15/2024, 07/16/2024, 04/23/2024, Additional history exists DTaP,Tdap,and Td Vaccines (10 - Td or [...] Test (04/06/2022) Annual BMP Blood Test abstracted us Historical Provider HEALTH MAINTENANCE Final Result * Hepatitis C Screening (11/30/2020) Hepatitis C Screening abstracted us Historical Provider HEALTH MAINTENANCE Final Result from Last 3 Months or Most Recently Relevant to Health Maintenance Insurance MEDICAID - [place] MEDICARE Care Teams Wheel Braider Relationship Specialty Start Date End Date Mt Hooker MD [address] [place] [address] [place] [phone] PCP - General Internal Medicine 09/26/21
--- OUTSIDE RECORDS SUMMARY | 2024-11-18 11:07 | XMS_ITS | Encounter Summary ---
Author Organization [facility] Address [address] [place] [address] Phone Care Team Providers Care Speech Pathology Teacher Name Role Phone Pcp, Unknown Primary Care Provider Unavailabl e Encounter Details Date Type Department Care Team (Late st Contact Info) Description 03/07/2022 Procedure Pass [facility] Imaging - RF/IR [address] [facility], 2nd [place] [address] Social History Tobacco Use Types Packs/Day Years Used Date Smoking Tobacco: Never Smokeless Tobacco: Never Alcohol Use Standard Drinks/Week Comments Not Currently 0 (1 standard drink = 0.6 oz pur e alcohol) Comments Unknown Sex and Gender Information Value Date Recorded Sex Assigned at Female 06/01/2021 11:48 AM EST Legal Sex Female 11:29 AM EST Gender Identity Female 06/01/2021 11:48 AM EST Sexual Orientation Straight 06/01/2021 11 :48 AM EST documented as of this encounter Plan of Treatment Not on file documented as of this encounter Visit Diagnoses Not on filedocumented in this encounter Care Teams Speech Pathology Teacher Relationship Specialty Start Date End Date Pcp, Unknown PCP - General 07/29/21 documented as of this encounter Additional Source Comments The information contained in this document represents components of the legal health record. It is not the complete legal health record.[facility]
== END 2024-11-18 11:33 | disposition home or self-care (01) ==
LOC: HO.HPS 10:27
PROVIDERS: PCP Student in an Organized Health Care Education/Training Program; Visit Provider Hospitalist
DX: J30.9 Allergic rhinitis, unspecified (principal); T78.40XA Allergy, unspecified, initial encounter; R91.8 Other nonspecific abnormal finding of lung field; R06.09 Other forms of dyspnea; J45.40 Moderate persistent asthma, uncomplicated
CPT/HCPCS: 99214; G2211

== ENCOUNTER → 2024-11-18 10:26 | Outpatient (BNVA) | payer MEDICARE, MEDICAID, SELFPAY | PROVIDERS: PCP Student in an Organized Health Care Education/Training Program; Visit Provider Hospitalist | DX: J45.40 Moderate persistent asthma, uncomplicated (principal); T78.40XD Allergy, unspecified, subsequent encounter; J30.9 Allergic rhinitis, unspecified; R91.8 Other nonspecific abnormal finding of lung field; R06.09 Other forms of dyspnea | CPT/HCPCS: 99212 ==

== ENCOUNTER 2024-12-02 13:00 | Outpatient (RCR) | payer MEDICARE, MEDICAID, SELFPAY ==
--- NOTE | ~2024-12-02 | XR_ITS ---
EXAMINATION: XR FOOT, RIGHT CLINICAL INFORMATION: NONHEALING WOUND COMPARISON: July 24, 2024 TECHNIQUE: AP, lateral, and oblique views of the right foot. 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 No new erosive changes are present. However, there is evidence of mature appearing periosteal new bone formation along the lateral base of the fifth metatarsal tuberosity. Moderate atherosclerotic calcifications are present. There appears to be soft tissue ulceration lateral to the base of the fifth metatarsal and calcaneal tuberosity. XR/XR foot RT min 3V IMPRESSION: Skin ulcerations in the lateral midfoot and lateral heel with mature appearing periosteal bone formation involving the fifth metatarsal tuberosity. No erosive changes are evident. Electronically signed by: Denis Yen MD 12/02/2024 04:43 PM EDT
[2024-12-02 16:46] LABS: MANUAL DIFF FLAG NO
[2024-12-02 17:39] LABS: Hematocrit 31.2 % (37.0-47.0); Hemoglobin 9.8 g/dl (12.0-16.0); Imm Gran Abs Auto 0.12 X10*3/uL (0.00-0.03); Imm Gran Pct Auto 0.6 % (0.0-0.4); Lymphocytes Absolute Auto 2.0 X10*3/uL (1.2-4.9); Mean Corpuscular HGB Conc 31.4 g/dl (31.0-35.0); Mean Corpuscular Hemoglobin 28.7 pg (27.0-33.0); Mean Corpuscular Volume 91.5 fL (80.0-98.0); NRBC Abs Auto 0.000 X10*3/uL (0.0-0.012); NRBC Pct Auto 0.0 /100WBC (0.0-0.2); Red Blood Count 3.41 X10*6/uL (4.20-5.50); White Blood Count 19.7 X10*3/uL (4.8-10.8)
[2024-12-02 17:47] LABS: Platelet Count 456 X10*3/uL (160-400)
[2024-12-02 18:10] LABS: Procalcitonin 1.25 ng/mL
== END 2025-01-13 16:14 | disposition other institution (70) ==
LOC: HO.WCC 13:00
PROVIDERS: PCP Student in an Organized Health Care Education/Training Program; Visit Provider Surgery Surgical Oncology
DX: E10.621 Type 1 diabetes mellitus with foot ulcer (principal); E10.51 Type 1 diabetes mellitus with diabetic peripheral angiopathy without gangrene; I70.234 Atherosclerosis of native arteries of right leg with ulceration of heel and midfoot; L97.412 Non-pressure chronic ulcer of right heel and midfoot with fat layer exposed; L89.894 Pressure ulcer of other site, stage 4; B95.8 Unspecified staphylococcus as the cause of diseases classified elsewhere; L84 Corns and callosities; E10.22 Type 1 diabetes mellitus with diabetic chronic kidney disease; E10.40 Type 1 diabetes mellitus with diabetic neuropathy, unspecified; I12.0 Hypertensive chronic kidney disease with stage 5 chronic kidney disease or end stage renal disease; N18.6 End stage renal disease; Z99.2 Dependence on renal dialysis; Z79.2 Long term (current) use of antibiotics
CPT/HCPCS: 11042; 11043; 36415; 73630; 84145; 85025; 85652; 86140; 87070; 87073; 87077; 87147; 87186; 87205; 97597; 99213

== ENCOUNTER 2024-12-02 15:38 | Outpatient (REF) | payer MEDICARE, MEDICAID, SELFPAY ==
--- OUTSIDE RECORDS SUMMARY | 2024-12-02 16:57 | XMS_ITS | Clinical Summary ---
Author Organization 175 [facility] Address [address] [place] [address] Phone Care Team Providers Care Christmas Bell Ringer Name Role Phone Mt Hooker MD Primary Care Provider [phone] Allergies No known active allergies Medications CALCITRIOL [...] 1:45 PM EDT Office Visit Orthopedic Surgery [facility] [address] [place] [phone] Siva Lino, HATTIE Controlled type 2 diabetes with neuropathy ([facility] V24, [facility] V28) (Primary Dx); Ulcer of right heel, with fat layer exposed ([facility] V24, [facility] V28); Hammertoes of both feet; Dermatophytosis, nail from Last 3 Months Immunizations Name Administration Dates Next Due COVID-19 (Moderna/Spikevax) 12yo and older 01/26 Moderna SARS-CoV-2 COVID-19, mRNA, LNP-S, preservative free 07/09/2020,05/26/2020 Medical History Medical History Date Comments Kidney failure DX:Kidney failur e Diabetes mellitus ([facility] V24, [facility] V28) DX:Diabetes mellitus (HCC) Diabetic neuropathy ([facility] V24, [facility] V28) DX:Diabetic neuropathy (HCC) Type 1 diabetes ([facility] V24, [facility] V28) DX:Type 1 diabetes ([facility]) Hypertension DX:Hypertension Social History Tobacco [...] AM EDT Office Visit Orthopedic Surgery - [place] 250 175 [facility] 250 [place] [phone] Siva Lino, HATTIE 175 [facility] [address] [place] [address] Health Maintenance Due Date Last Done Comments [...] Test (04/06/2022) Annual BMP Blood Test abstracted Historical Provider HEALTH MAINTENANCE Final Result * Hepatitis C Screening (11/30/2020) Hepatitis C Screening abstracted Historical Provider HEALTH MAINTENANCE Final Result from Last 3 Months or Most Recently Relevant to Health Maintenance Insurance [place]ICA[place] - [place]ICARE Care Teams Christmas Bell Ringer Relationship Specialty Start Date End Date Mt Hooker MD [address] [place] [phone] PCP - General Internal Medicine 09/26/21
--- OUTSIDE RECORDS SUMMARY | 2024-12-02 16:57 | XMS_ITS | Encounter Summary ---
Author Organization [employer] Address [address] [facility] [address] [place] [address] Care Team Providers Care Senior Occupational Therapist Name Role Phone Ally Ferreira MD Primary Care Pro vider Reason for Visit * Reason Comments Med Refill Encounter Details Date Type Department Care Team ([facility] st Contact Info) Description 11/09/2024 Refill [facility] MEDICINE [address] [place], [place] [phone] Kaur Hernandez MD [address] [place] [address] Hypertension, unspecified type Social History Tobacco Use [...] is your housing situation today? I have hermanngrzegorz miramontes 08/26/[address] you [...] Care Team (Late st Contact Info) Description 06/02/2025 1:00 PM EST Office Visit [facility] OPTOMETRY [address] [place], [place] [phone] Antoinette Zhou, OD 230 [place] [address] documented as of this encounter Visit Diagnoses Diagnosis Hypertension, unspecified type documented in this encounter Additional Health Concerns Assessment Noted Time PHQ-9 Depression Total Score: 0 09/03/19 25 10:22 AM EDT documented as of this encounter Care Teams Senior Occupational Therapist Relationship Specialty Start Date End Date Ally Ferreira MD [address] [place], [place] [phone] PCP - General Internal Medicine 07/25/22 documented as of this encounter
--- OUTSIDE RECORDS SUMMARY | 2024-12-02 16:57 | XMS_ITS | Encounter Summary ---
Author Organization [facility] Address [address] [facility] [address] [place] [address] Phone Care Team Providers Care Software Program Manager Name Role Phone Azucena Bradley MD Primary Care Provider [phone] Reason for Visit * Reason Comments Med Refill Encounter Details Date Type Department Care Team ([facility] st Contact Info) Description 06/04/2023 Refill [facility] [address] [place] [phone] Wesley Pagan MD [address] [facility] 204 [place] [phone] Social History Tobacco Use Types Packs/Day Years [...] on filedocumented in this encounter Care Teams Software Program Manager Relationship Specialty Start Date End Date Azucena Bradley MD [address] [place] [address], Floor 3 [place] [address] PCP - General Internal Medicine 01/22/24 documented as of this encounter
--- OUTSIDE RECORDS SUMMARY | 2024-12-02 16:57 | XMS_ITS | Encounter Summary ---
Demographics Address [address] [place] [address] Mobile Phone Home Phone Preferred Language Faroese Marital Status Taoist Affiliation Unknown Race White Ethnic Group Unknown Author Organization [facility] Address [address] [place] [address] Care Team Providers Care Boat Assembler Name Role Phone Ally Ferreira Primary Care Provider [phone] Encounter Details Date Type Department Care Team (Late st Contact Info) Description 02/09/2021 Orders Only [facility] Nuclear Medicine [address] [place] [address] Shiva Duran MD [address] [place] [address] Social History Tobacco Use Types Packs/Day Years [...] Care Team (Late st Contact Info) Description 12/17/2024 1:45 PM EDT Appointment [facility] ACC Vascular Lab [address] [place] [address] 12/17/2024 3:00 PM EDT Follow-Up [facility] Vascular Surgery [address] [place] [address] Hamper Maker Machine: Marilin Lane MD [address] [place] [address] 02/05/2025 11:00 AM EDT Follow-Up [facility] Renal Transplant [address] [place] [address] Vinicio Harris MD [address] [place] [address] 02/05/2025 11:45 AM EDT Follow-Up [facility] Renal Transplant [address] [place] [address] 02/05/2025 12:30 PM EDT Social Work [facility] Renal Transplant [address] [place] [address] Michelet Swartz documented as of this encounter Visit Diagnoses Not on filedocumented in this encounter Care Teams Boat Assembler Relationship Specialty Start Date End Date Ally Ferreira [address] [place] [address] PCP - General 02/04/24 documented as of this encounter
--- OUTSIDE RECORDS SUMMARY | 2024-12-02 16:57 | XMS_ITS | Encounter Summary ---
Author Organization [facility] Address [address] [place] [address] Phone Care Team Providers Care Manufacturing Project Manager Name Role Phone Pcp, Unknown Primary Care Provider Unavailabl e Encounter Details Date Type Department Care Team (Late st Contact Info) Description 03/07/2022 Procedure Pass [facility] Imaging - RF/IR [address] [facility], 2nd [place] [address] Social History Tobacco Use Types Packs/Day Years [...] filedocumented in this encounter Care Teams Manufacturing Project Manager Relationship Specialty Start Date End Date Pcp, Unknown PCP - General 07/29/21 documented as of this encounter Additional Source Comments The information contained in this document represents components of the legal health record. It is not the complete legal health record.[facility]
[2024-12-02 18:16] LABS: Folate 10.9 ng/mL (> or = 4.0); Vitamin B12 903 pg/mL (200-900)
[2024-12-03 08:29] LABS: HBS Num1 89.90 mIU/mL (0-7.99); HBsAGNum1 0.49 S/CO (0.00-0.99); HIV Num 1 0.05 S/CO (0.00-0.99); Hepatitis B Surface Antigen Negative (Negative); ~Hepatitis B Surface Antibody REACTIVE (Nonreactive)
[2024-12-03 08:41] LABS: Syphilis Screen Nonreactive (Nonreactive)
[2024-12-05 01:03] LABS: TS Negative Control Passed; TS Panel A 0; TS Panel B 0; TS Positive Control Passed; TSpotTB Negative (Negative)
[2024-12-06 16:28] LABS: Index Value 0.05 (<0.50)
[2024-12-13 02:43] LABS: IgE Antibody (Anti-IgE IgG) 13 ng/mL (<168)
== END 2024-12-02 15:39 | disposition home or self-care (01) ==
LOC: HO.LAB 15:38
PROVIDERS: PCP Student in an Organized Health Care Education/Training Program; Visit Provider Student in an Organized Health Care Education/Training Program
DX: Z11.1 Encounter for screening for respiratory tuberculosis (principal); Z01.84 Encounter for antibody response examination; Z11.59 Encounter for screening for other viral diseases; A64 Unspecified sexually transmitted disease; D72.10 Eosinophilia, unspecified; R91.8 Other nonspecific abnormal finding of lung field; Z72.89 Other problems related to lifestyle
CPT/HCPCS: 36415; 82607; 82746; 83520; 84443; 85027; 86003; 86481; 86682; 86706; 86780; 87305; 87340; 87389

== ENCOUNTER → 2024-12-02 15:48 | Outpatient (BNV) | payer MEDICARE, MEDICAID, SELFPAY | PROVIDERS: PCP Student in an Organized Health Care Education/Training Program; Visit Provider Radiology Diagnostic Radiology | DX: L97.419 Non-pressure chronic ulcer of right heel and midfoot with unspecified severity (principal) | CPT/HCPCS: 73630 ==

== ENCOUNTER 2025-01-05 06:29 | Outpatient (REF) | payer MEDICARE, MEDICAID, SELFPAY ==
--- OUTSIDE RECORDS SUMMARY | 2025-01-07 17:54 | XMS_ITS | Encounter Summary ---
Author Organization [employer] Address [address] 7t [place] [address] Care Team Providers Care Inspector Aide Name Role Phone Ally Ferreira MD Primary Care Pro vider Encounter Details Date Type Department Care Team (Late st Contact Info) Description 01/05/2025 Telephone [facility] 230 [place], [place] [phone] Radha Feliciano [place] Social History Tobacco Use Types Packs/Day Years [...] Miscellaneous Notes * Telephone Encounter - Radha Feliciano [place] - 01/05/2025 9:48 AM EDT tried callling pt to book a [email or web address] answer left a vm documented in this encounter Plan of Treatment Upcoming Encounters Date Type Department Care Team (Late st Contact Info) Description 01/29/2025 1:45 PM EDT Office Visit [facility] MEDICINE 230 [place] [address] Ally Ferreira MD [address] [place] [address] 06/02/2025 1:00 PM EST Office Visit [facility] OPTOMETRY [address] [place] [address] Abelardo, Antoinette, OD 230 [place] [address] documented as of this encounter Visit Diagnoses Not on filedocumented in this encounter Additional Health Concerns Assessment Noted Time PHQ-9 Depression Total Score: 0 09/03/19 10:22 AM EDT documented as of this encounter Care Teams Inspector Aide Relationship Specialty Start Date End Date Ally Ferreira MD [address] [place] [address] PCP - General Internal Medicine [facility] documented as of this encounter
--- OUTSIDE RECORDS SUMMARY | 2025-01-07 17:54 | XMS_ITS | Encounter Summary ---
Author Organization [facility] Address [address] [place] [address] [place] [address] Phone Care Team Providers Care Apparel Embroidery Digitizer Name Role Phone Azucena Bradley MD Primary Care Provider [phone] Reason for Visit * Reason Comments Med Refill Encounter Details Date Type Department Care Team (Late st Contact Info) Description 06/22/2022 Refill [facility] [address] [place] [address] [place] [address] Forrest Adamson MD Social History [...] on filedocumented in this encounter Care Teams Apparel Embroidery Digitizer Relationship Specialty Start Date End Date Azucena Brdaley MD [address] [place] [address], [facility] 3 [place] [address] PCP - General Internal Medicine 01/22/24 documented as of this encounter
--- OUTSIDE RECORDS SUMMARY | 2025-01-07 17:54 | XMS_ITS | Encounter Summary ---
Demographics Address [address] [place] [address] Mobile Phone Home Phone Preferred Language Yakut Marital Status Sabianism Affiliation Unknown Race White Ethnic Group Unknown Author Organization [facility] Address [address] [place] [address] Care Team Providers Care Combatant Swimmer Name Role Phone Ally Ferreira Primary Care Provider [phone] Encounter Details Date Type Department Care Team (Late st Contact Info) Description 02/09/2021 Orders Only [facility] Nuclear Medicine [address] [place] [address] Shiva Duran MD [address] [place] [address] Social History Tobacco Use Types Packs/Day Years [...] Info) Description 02/05/2025 11:00 AM EDT Follow-Up [facility] Renal Transplant [address] [place] [address] Vinicio Harris MD 55 [place] [address] 02/05/2025 11:45 AM EDT Follow-Up [facility] Renal Transplant [address] [place] [address] 02/05/2025 12:30 PM EDT Social Work [facility] Renal Transplant [address] [place] [address] Michelet Swartz documented as of this encounter Visit Diagnoses Not on filedocumented in this encounter Care Teams Combatant Swimmer Relationship Specialty Start Date End Date Ally Ferreira [address] [place] [address] PCP - General 02/04/24 documented as of this encounter
--- OUTSIDE RECORDS SUMMARY | 2025-01-07 17:54 | XMS_ITS | Encounter Summary ---
Author Organization [employer] Address [address] [place] [address] 7 [place] [address] Care Team Providers Care Drying Machine Tender Name Role Phone Ally Ferreira MD Primary Care Pro vider Reason for Visit * Reason Onset Date Comments Durable Medical Equipment 01/05/2025 Encounter Details Date Type Department Care Team (Late st Contact Info) Description 01/05/2025 Telephone [facility] MEDICINE [address] [place], [place] [phone] Ally Ferreira MD 230 [place] [address] Durable Medical Equipment Social History Tobacco Use Types Packs/Day Years [...] encounter Miscellaneous Notes * Telephone Encounter - Bethany Montaño RN - 01/06/2025 1:30 PM EDT Called pt in AM, no answer, left voicemail to call back [facility]. Called in PM x2, phone not in service. Will task to call again. * Telephone Encounter - Regina Morin - 01/05/2025 3:32 PM EDT Please see message below and advise. If agree, please provide dx and notes to support the need. Thank you * Telephone Encounter - Dain Rothman - 01/05/2025 2:28 PM EDT Tc from pt requesting Vashe wound wash and Santyl. Any questions contact pt at [phone] documented in this encounter Plan of Treatment Upcoming Encounters Date Type Department Care Team ([facility] st Contact Info) Description 01/29/2025 1:45 PM EDT Office Visit [facility] MEDICINE [address] [place] [address] Ally Ferreira MD 230 [place], [place] [phone] 06/02/2025 1:00 PM EST Office Visit [facility] OPTOMETRY [address] [place], [place] [phone] Abelardo, Antoinette, OD 230 [place], [place] [phone] documented as of this encounter Visit Diagnoses Not on filedocumented in this encounter Additional Health Concerns Assessment Noted Time PHQ-9 Depression Total Score: 0 09/03/19 10:22 AM EDT documented as of this encounter Care Teams Drying Machine Tender Relationship Specialty Start Date End Date Ally Ferreira MD 230 [place], [place] [phone] PCP - General Internal Medicine [facility] documented as of this encounter
--- OUTSIDE RECORDS SUMMARY | 2025-01-07 17:54 | XMS_ITS | Encounter Summary ---
Author Organization [facility] Address [address] [facility] [address] [place] [address] Phone Care Team Providers Care Silverware Washer Name Role Phone Azucena Bradley MD Primary Care Provider [phone] Reason for Visit * Reason Comments Med Refill Encounter Details Date Type Department Care Team ([facility] st Contact Info) Description 06/04/2023 Refill [facility] [address] [place] [phone] Wesley Pagan MD [address] [facility] [address] [place] [phone] Social History Tobacco Use Types Packs/Day Years [...] on filedocumented in this encounter Care Teams Silverware Washer Relationship Specialty Start Date End Date Azucena Bradley MD [address] [place] [address], Floor 3 [place] [address] PCP - General Internal Medicine 01/22/24 documented as of this encounter
--- OUTSIDE RECORDS SUMMARY | 2025-01-07 17:54 | XMS_ITS | Encounter Summary ---
Author Organization [employer] Address [address] [facility] [address] 7t [place] [address] Care Team Providers Care Financial Aid Coordinator Name Role Phone Ally Ferreira MD Primary Care Pro vider Reason for Visit * Reason Comments Med Refill Encounter Details Date Type Department Care Team ([facility] st Contact Info) Description 01/04/2025 Refill [facility] MEDICINE 230 [place], [place] [phone] Greg Stovall MD 230 [place] [address] History of SIVAKUMAR positive for HSV Social History Tobacco Use Types Packs/Day Years [...] Description 01/29/2025 1:45 PM EDT Office Visit [facility] MEDICINE [address] [place] [address] Ally Ferreira MD 230 [place] [address] 06/02/2025 1:00 PM EST Office Visit [facility] OPTOMETRY [address] [place] [address] Abelardo, Antoinette, OD 230 [place] [address] documented as of this encounter Visit Diagnoses Diagnosis History of SIVAKUMAR positive for HSV documented in this encounter Additional Health Concerns Assessment Noted Time PHQ-9 Depression Total Score: 0 09/03/19 10:22 AM EDT documented as of this encounter Care Teams Financial Aid Coordinator Relationship Specialty Start Date End Date Ally Ferreira MD 230 [place] [address] PCP - General Internal Medicine 07[facility] documented as of this encounter
--- OUTSIDE RECORDS SUMMARY | 2025-01-07 17:54 | XMS_ITS | Encounter Summary ---
Demographics Address [address] [place] [address] Mobile Phone Home Phone Preferred Language Turkish Marital Status Amish Affiliation Unknown Race White Ethnic Group Unknown Author Organization [facility] Address [address] [place] [address] Care Team Providers Care Imaging Specialist Name Role Phone Ally Ferreira Primary Care Provider [phone] Encounter Details Date Type Department Care Team (Late st Contact Info) Description 12/06/2024 myChart Message [facility] Renal Transplant [address] [place] [address] Sabina Velázquez, RUTH ANN [address] [place], [place] [phone] Your Recent Visit Social History Tobacco Use Types Packs/Day Years [...] Info) Description 02/05/2025 11:00 AM EDT Follow-Up [facility] Transplant [address] [place], [place] [phone] Vinicio Harris MD 55 [place], [place] [phone] 02/05/2025 11:45 AM EDT Follow-Up [facility] Transplant [address] [place] [address] 02/05/2025 12:30 PM EDT Social Work [facility] [address] [place] [address] Michelet Swartz documented as of this encounter Visit Diagnoses Not on filedocumented in this encounter Care Teams Imaging Specialist Relationship Specialty Start Date End Date Ally Ferreira [address] [place] [address] PCP - General 02/04/24 documented as of this encounter
--- OUTSIDE RECORDS SUMMARY | 2025-01-07 17:54 | XMS_ITS | Encounter Summary ---
Author Organization [employer] Address [address] [place] [address] 7 [place] [address] Care Team Providers Care Oil Spot Washer Name Role Phone Ally Ferreira MD Primary Care Pro vider Reason for Visit * Reason Onset Date Comments Lab Orders 12/02/2024 Encounter Details Date Type Department Care Team ([facility] st Contact Info) Description 12/02/[address] [facility] MEDICINE 230 [place], [place] [phone] Ally Ferreira MD 230 [place] [address] Lab Orders Social History Tobacco Use Types Packs/Day Years [...] Telephone Encounter - Bethany Montaño RN - 01/02/2025 3:47 PM EDT Called pt who reports having sputum cups but unsure how to use them for labs. Called [facility] main lab who said pt to produce sputum sample 1x daily in the AM for 3 days. Pt should take a deep breath, cough deeply, and then spit into the cup, okay to place in fridge until all 3 samples processed and then bring to [facility] lab. Pt should label each with name//date/time. Called pt and advised of this,pt verbalized understanding. HDF scheduled soonest available with Dr Perry per pt dialysis schedule. * Telephone Encounter - Bettye Llamas RN - 12/31/2024 9:29 AM EDT Pt was [facility] at [facility] 12/07-12/24 where she was treated for malfunctioning of the left upper extremity AV graft with a clot. She has had a permacath placed in the right IJ on the . Per CareEverywhere she is currently admitted at [facility] since 12/29 for a Hgb of 4.1 5 days after transfusion at which time Hgb was 7.1. Will retask to check and see if discharged in a few days as it doesn't appear there is any plan fordischarge at this time. * Telephone Encounter - Bethany Montaño RN - 12/29/2024 3:02 PM EDT Spoke with PCP Dr. Perry in office. 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 Placed lab slips at front end loader driver for clam picker or mailing once pt out of hospital. Will task to call. * Telephone Encounter - Bettye Llamas RN - 12/03/2024 11:57 AM EDT Pt presented to the lab and completed them 20 minutes after this message was sent. * Telephone Encounter - Zohaib Zabala - 12/02/2024 4:27 PM EDT Tc from pt requesting a call back to clarify on how pcp would want her to complete the labs. documented in this encounter Plan of Treatment Upcoming Encounters Date Type Department Care Team (Late st Contact Info) Description 01/29/2025 1:45 PM EDT Office Visit [facility] MEDICINE [address] [place] [address] Ally Ferreira MD 230 [place] [address] 06/02/2025 1:00 PM EST Office Visit [facility] OPTOMETRY [address] [place] [address] Antoinette Zhou, OD 230 [place] [address] documented as of this encounter Visit Diagnoses Not on filedocumented in this encounter Additional Health Concerns Assessment Noted Time PHQ-9 Depression Total Score: 0 09/03/19 10:22 AM EDT documented as of this encounter Care Teams Oil Spot Washer Relationship Specialty Start Date End Date Ally Ferreira MD [address] [place] [address] PCP - General Internal Medicine 07/25/22 [facility] documented as of this encounter
--- OUTSIDE RECORDS SUMMARY | 2025-01-07 17:54 | XMS_ITS | Encounter Summary ---
Demographics Address [address] [place] [address] Mobile Phone Home Phone Preferred Language Spanish Marital Status Sikhism Affiliation Unknown Race White Ethnic Group Unknown Author Organization [facility] Address [address] [place] [address] Care Team Providers Care Gifted Teacher Name Role Phone Ally Ferreira Primary Care Provider [phone] Encounter Details Date Type Department Care Team (Late st Contact Info) Description 12/02/2019 Orders Only [facility] Nuclear Medicine 55 [place] [address] Shiva Duran MD 55 [place] [address] Social History Tobacco Use Types Packs/Day Years [...] Info) Description 02/05/2025 11:00 AM EDT Follow-Up [facility] Renal Transplant [address] [place] [address] Vinicio Harris MD 55 [place] [address] 02/05/2025 11:45 AM EDT Follow-Up [facility] Renal Transplant 55 [place] [address] 02/05/2025 12:30 PM EDT Social Work [facility] Renal Transplant [address] [place] [address] Michelet Swartz documented as of this encounter Visit Diagnoses Not on filedocumented in this encounter Care Teams Gifted Teacher Relationship Specialty Start Date End Date Ally Ferreira [address] [place] [address] PCP - General 02/04/24 documented as of this encounter
--- OUTSIDE RECORDS SUMMARY | 2025-01-07 17:54 | XMS_ITS | Encounter Summary ---
Author Organization [facility] Address [address] [facility] [address] [place] [address] Phone Care Team Providers Care Customs Import Specialist Name Role Phone Azucena Bradley MD Primary Care Provider [phone] Reason for Visit * Reason Comments Med Refill Encounter Details Date Type Department Care Team (Late st Contact Info) Description 09/02/2023 Refill [facility] [address] [place] [phone] Paul Brothers MD [address] [facility] [address] [place] [phone] Social History Tobacco Use Types Packs/Day Years [...] on filedocumented in this encounter Care Teams Customs Import Specialist Relationship Specialty Start Date End Date Azucena Bradley MD [address] [place] [address], Floor 3 [place] [address] PCP - General Internal Medicine 01/22/24 documented as of this encounter
--- OUTSIDE RECORDS SUMMARY | 2025-01-07 17:54 | XMS_ITS | Clinical Summary ---
Author Organization [facility] Address [address] [place] [address] Phone Care Team Providers Care Director Name Role Phone Mt Hooker MD Primary Care Provider [phone] Allergies No known active allergies Medications CALCITRIOL [...] 1:45 PM EDT Office Visit Orthopedic [facility] [address] [place] [phone] Siva Lino, HATTIE Controlled type 2 diabetes with neuropathy ([facility] V24, [facility] V28) (Primary Dx); Ulcer of right heel, with fat layer exposed ([facility] V24, [facility] V28); Hammertoes of both feet; Dermatophytosis, nail from Last 3 Months Immunizations Name Administration Dates Next Due COVID-19 (Moderna/Spikevax) 12yo and older 01/26 Moderna SARS-CoV-2 COVID-19, mRNA, LNP-S, preservative free 07/09/2020,05/26/2020 Medical History Medical History Date Comments Kidney failure DX:Kidney failur e Diabetes mellitus ([facility] V24, [facility] V28) DX:Diabetes mellitus (HCC) Diabetic neuropathy ([facility] V24, [facility] V28) DX:Diabetic neuropathy (HCC) Type 1 diabetes ([facility] V24, [facility] V28) DX:Type 1 diabetes ([facility]) Hypertension DX:Hypertension Social History Tobacco Use Types [...] 08/19/2024 10:37 AM EDT Plan of Treatment Health Maintenance Due [...] 04/26/2023, 08/21/2018, 08/02/2018, Additional history exists RSV Immunization Adult Patients (1 - 1-dose 75+ series) 09/09/2066 MMR Vaccines Completed 12/22/1992, 1992 HIB Vaccines [...] Test (04/06/2022) Annual BMP Blood Test abstracted [facility] Provider HEALTH MAINTENANCE Final Result * Hepatitis C Screening (11/30/2020) Hepatitis C Screening abstracted Historical Provider HEALTH MAINTENANCE Final Result from Last 3 Months or Most Recently Relevant to Health Maintenance Insurance MEDICAID - [place] MEDICARE Care Teams Director Relationship Specialty Start Date End Date Mt Hooker MD [address] [place] [phone] PCP - General Internal Medicine 09/26/21
--- OUTSIDE RECORDS SUMMARY | 2025-01-07 17:54 | XMS_ITS | Encounter Summary ---
Author Organization [employer] Address [address] [place] [address] 7 [place] [address] Care Team Providers Care Solder Deposit Operator Name Role Phone Ally Ferreira MD Primary Care Pro vider Reason for Visit * Reason Comments Transition Of Care (Tcm) HDF scheduled a nd SDOH completed on 08/26/24 Encounter Details Date Type Department Care Team (Late st Contact Info) Description 01/02/2025 Patient Outreach [facility] MEDICINE [address] [place] [address] Ally Ferreira MD [address] [place] [address] Transition Of Care (Tcm) (HDF scheduled and SDOH completed on 08/26/24 ) Social History Tobacco Use Types Packs/Day Years [...] as of this encounter Miscellaneous Notes * Significant Event - Sheridan Newsome - 01/02/2025 9:39 AM EDT 01/02/25 0935 Hospital Discharges and Admission for [facility] Type of Visit Hospital Admission Date of Admission/Visit 12/29/24 Date of Discharge 01/01/25 Facility [facility] Diagnosis Shortness of Breath, Dependence on renal dialysis Fluid overload, End stage renal disease Disposition Discharged Home Follow-Up Actions Follow-Up Needed Provider appointment Follow-Up Outcome Spoke to Patient;Booked Appointment Initial Contact Date 01/02/25 H[place]IE benton outbound call to patient for HDF outreach. Patient's name and were confirmed. Patient educated on the importance of follow up with provider following inpatient admission. Patient offered an HDF appt. Patient is agreeable to an appointment and has been scheduled for 01/29/25 at 1:45pm with Dr. Perry. Insurance verified prior to scheduling. Patient also notified that [facility] will be reaching out to them via telephone prior to their scheduled appointment in order to review their medications in preparation for their appointment. Patient advised to bring to appointment a photo id and insurance card. Patient provided with education on contacting the Health Center with any questions or concerns prior to the scheduled appointment. Patient educated on extended clinic hours on Mondays and Wednesdays, and Walk-In Urgent Care Located in [facility]. Patient provided with after-hours line for [facility], , which offer night time triage service and option to transfer to mammal control agent provider if needed. CC will request Discharge summary to be scanned into chart. Biggest concern for appointment at this time is no concerns. Appropriate screenings completed in anticipation of appointment. documented in this encounter Plan of Treatment Upcoming Encounters Date Type Department Care Team (Late st Contact Info) Description 01/29/2025 1:45 PM EDT Office Visit [facility] MEDICINE [address] [place], [place] [phone] Ally Ferreira MD [address] [place] [address] 06/02/2025 1:00 PM EST Office Visit [facility] OPTOMETRY [address] [place], [place] [phone] Abelardo, Antoinette, OD 230 [place] [address] documented as of this encounter Visit Diagnoses Not on filedocumented in this encounter Additional Health Concerns Assessment Noted Time PHQ-9 Depression Total Score: 0 09/03/19 10:22 AM EDT documented as of this encounter Care Teams Solder Deposit Operator Relationship Specialty Start Date End Date Ally Ferreira MD [address] [place] [address] [phone] PCP - General Internal Medicine 07/25/22 [facility] documented as of this encounter
--- OUTSIDE RECORDS SUMMARY | 2025-01-07 17:54 | XMS_ITS | Encounter Summary ---
Author Organization [employer] Address [address] [place] [address] 7 [place] [address] Care Team Providers Care Animal Breeder Name Role Phone Ally Ferreira MD Primary Care Pro vider Reason for Visit * Reason Onset Date Comments Med Refill 01/05/2025 Encounter Details Date Type Department Care Team (Late st Contact Info) Description 01/05/2025 Telephone [facility] MEDICINE [address] [place], [place] [phone] Ally Ferreira MD 230 [place] [address] Med Refill Social History Tobacco Use Types Packs/Day Years [...] Telephone Encounter - Bethany Montaño RN - 01/07/2025 2:29 PM EDT Telephone call x3 to pt in regards to wound care supplies request and iron supplement request per messages below. No answer, left voicemail to call back [facility]. * Telephone Encounter - Bethany Montaño RN - 01/06/2025 1:36 PM EDT Called pt in AM, no answer, left voicemail to call back [facility]. Called in PM x2, phone not in service. Will task to call again. * Telephone Encounter - Stephanie Silverio LPN - 01/05/2025 2:38 PM EDT Please review medication is not on current med list * Telephone Encounter - Dain Rothman - 01/05/2025 2:33 PM EDT TC from pt requesting medication refill. Medications needing refill : ferrous sulfate (fe tablet) 325 (65 fe) mg ec tablet To be sent to: [facility]/pharmacy #[id number] - [place], [place] - [address] [facility] [facility] [address]EXT TO JOSÉ MANUELCarmen documented in this encounter Plan of Treatment Upcoming Encounters Date Type Department Care Team (Late st Contact Info) Description 01/29/2025 1:45 PM EDT Office Visit [facility] MEDICINE [address] [place] [address] Ally Ferreira MD 230 [place] [address] 06/02/2025 1:00 PM EST Office Visit [facility] OPTOMETRY [address] [place] [address] Abelardo, Antoinette, OD 230 [place] [address] documented as of this encounter Visit Diagnoses Not on filedocumented in this encounter Additional Health Concerns Assessment Noted Time PHQ-9 Depression Total Score: 0 09/03/19 10:22 AM EDT documented as of this encounter Care Teams Animal Breeder Relationship Specialty Start Date End Date Ally Ferreira MD [address] [place] [address] PCP - General Internal Medicine 07/25[facility]22 [facility] documented as of this encounter
--- OUTSIDE RECORDS SUMMARY | 2025-01-07 17:54 | XMS_ITS | Encounter Summary ---
Author Organization [employer] Address [address] 7[address] [place] [address] Care Team Providers Care School Bus Driver/Mechanic Name Role Phone Ally Ferreira MD Primary Care Pro vider Reason for Visit * Reason Onset Date Comments Results 12/05/2024 Encounter Details Date Type Department Care Team ([facility] st Contact Info) Description 12/05/2024 Results Follow-Up [facility] MEDICINE [address] [place] [address] Bettye Llamas, RN 230 [place] [address] Rast Allergen Social History Tobacco Use Types Packs/Day Years [...] encounter Miscellaneous Notes * Telephone Encounter - Bettye Llamas RN - 12/05/2024 1:23 PM EDT Scanned in under media tab for PCP review * Telephone Encounter - Bettye Llamas RN - 12/05/2024 1:17 PM EDT ----- Message from Ally Ferguson MD sent at 12/05/2024 11:58 AM EDT ----- Please can you check can not find this result in media Thanks ----- Message ----- From: Interface, Lab Results In Sent: 12/05/2024 8:27 AM EDT To: Ally Ferguson MD documented in this encounter Plan of Treatment Upcoming Encounters Date Type Department Care Team (Late st Contact Info) Description 01/29/2025 1:45 PM EDT Office Visit [facility] MEDICINE [address] [place] [address] Ally Ferreira MD 230 [place] [address] 06/02/2025 1:00 PM EST Office Visit [facility] OPTOMETRY [address] [place] [address] Antoinette Zhou, OD 230 [place], [place] [phone] documented as of this encounter Visit Diagnoses Not on filedocumented in this encounter Additional Health Concerns Assessment Noted Time PHQ-9 Depression Total Score: 0 09/03/19 10:22 AM EDT documented as of this encounter Care Teams School Bus Driver/Mechanic Relationship Specialty Start Date End Date Ally Ferreira MD 230 [place], [place] [phone] PCP - General Internal Medicine 07/25/22 [facility] documented as of this encounter
--- OUTSIDE RECORDS SUMMARY | 2025-01-07 17:54 | XMS_ITS | Encounter Summary ---
Author Organization [employer] Address [address] 7t [place] [address] Care Team Providers Care Preventive Medicine Physician Name Role Phone Ally Ferreira MD Primary Care Pro vider Reason for Visit * Reason Comments Med Refill Encounter Details Date Type Department Care Team ([facility] st Contact Info) Description 11/09/2024 Refill [facility] MEDICINE [address] [place], [place] [phone] Kaur Hernandez MD 230 [place] [address] Hypertension, unspecified type Social History Tobacco Use [...] Description 01/29/2025 1:45 PM EDT Office Visit [facility] MEDICINE [address] [place] [address] Ally Ferreira MD 230 [place] [address] 06/02/2025 1:00 PM EST Office Visit [facility] OPTOMETRY [address] [place] [address] Abelardo, Antoinette, OD 230 [place] [address] documented as of this encounter Visit Diagnoses Diagnosis Hypertension, unspecified type documented in this encounter Additional Health Concerns Assessment Noted Time PHQ-9 Depression Total Score: 0 09/03/19 10:22 AM EDT documented as of this encounter Care Teams Preventive Medicine Physician Relationship Specialty Start Date End Date Ally Ferreira MD [address] [place] [address] PCP - General Internal Medicine 07/25[facility]22 [facility] documented as of this encounter
--- OUTSIDE RECORDS SUMMARY | 2025-01-07 17:54 | XMS_ITS | Encounter Summary ---
Author Organization [employer] Address [address] [place] [address] 7 [place] [address] Care Team Providers Care Financial Dealers Name Role Phone Ally Ferreira MD Primary Care Pro vider Reason for Visit * Reason Comments Med Change Request Encounter Details Date Type Department Care Team (Late Contact Info) Description 01/13/2023 Refill [facility] MEDICINE [address] [place] [address] [phone] Ally Ferreira MD [address] [place] [address] [phone] Social History Tobacco Use Types Packs/Day Years [...] Department Care Team (Late Contact Info) Description 01/29/2025 1:45 PM EDT Office Visit [facility] MEDICINE [address] [place] [address] [phone] Ally Ferreira MD 230 [place], [place] [phone] 06/02/2025 1:00 PM EST Office Visit [facility] OPTOMETRY [address] [place], [place] [phone] Antoinette Zhou, OD 230 [place] [address] documented as of this encounter Visit Diagnoses Not on filedocumented in this encounter Additional Health Concerns Assessment Noted Time PHQ-9 Depression Total Score: 0 08/11/19 23 9:11 AM EDT documented as of this encounter Care Teams Financial Dealers Relationship Specialty Start Date End Date Ally Ferreira MD [address] [place] [address] PCP - General Internal Medicine [facility] documented as of this encounter
--- OUTSIDE RECORDS SUMMARY | 2025-01-07 17:54 | XMS_ITS | Encounter Summary ---
Author Organization [employer] Address [address] 7t [place] [address] Care Team Providers Care Signal Worker Helper Name Role Phone Ally Ferreira MD Primary Care Pro vider Reason for Visit * Reason Comments Med Refill Encounter Details Date Type Department Care Team ([facility] st Contact Info) Description 12/04/2024 Refill [facility] MEDICINE [address] [place], [place] [phone] Greg Stovall MD [address] [place] [address] History of SIVAKUMAR positive for HSV Social [...] Description 01/29/2025 1:45 PM EDT Office Visit [facility] MEDICINE [address] [place] [address] Ally Ferreira MD 230 [place] [address] 06/02/2025 1:00 PM EST Office Visit [facility] OPTOMETRY [address] [place] [address] Abelardo, Antoinette, OD 230 [place] [address] documented as of this encounter Visit Diagnoses Diagnosis History of SIVAKUMAR positive for HSV documented in this encounter Additional Health Concerns Assessment Noted Time PHQ-9 Depression Total Score: 0 09/03/19 10:22 AM EDT documented as of this encounter Care Teams Signal Worker Helper Relationship Specialty Start Date End Date Ally Ferreira MD [address] [place] [address] PCP - General Internal Medicine 07/[facility]22 [facility] documented as of this encounter
--- OUTSIDE RECORDS SUMMARY | 2025-01-07 17:54 | XMS_ITS | Clinical Summary ---
Demographics Address [address] [place] [address] Mobile Phone Home Phone Preferred Language Citizen Of [place] Marital Status Sabianism Affiliation Unknown Race White Ethnic Group Unknown Author Organization [facility] Address [address] [place] [address] Care Team Providers Care Radiation Protection Engineer Name Role Phone Ally Ferreira Primary Care Provider [phone] Allergies Active Allergy Reactions Criticality Noted Date [...] 1 each 3 3 Active Dexcom G6 Chief Nursing Officer misc Use as directed. E10.65 1 each [...] Encounters Date Type Department Care Team Description 12/22/2024 Telephone [facility] Transplant Department [address] [place] [address] Sabina Velázquez, RN 12/06/2024 myChart Message [facility] Renal Transplant [address] [place] [address] Sabina Velázquez, RN Your Recent Visit 11/20/2024 Orders Only [facility] Building Vascular Surgery [address] [place] [address] Collection Analyst: Marilin Lane MD PAD (peripheral artery disease) (HCC) (Primary Dx) 11/05/2024 myChart Message [facility] Renal Transplant [address] [place] [address] Sabina Velázquez, RN Your Recent Visit 10/10/2024 Orders Only [facility] Transplant Department [address] [place] [address] Sabina Velázquez, RN ESRD (end stage renal disease) (HCC) (Primary Dx); Pre-transplant evaluation for kidney transplant from Last 3 Months Immunizations Immunization Administration Dates Next Due Covid-19 Monovalent Vaccine, Moderna, mRNA, PF 07/09/2020,05/26/2020 [id number] 05/05/1993,02/22/1993,12/22/1992 Diphtheria, Tetanus Toxoids and Acellular Pertussis [...] 88 02/27/2024 2:48 PM EST Temperature 36.7 C (98.1 F) 02/21/2024 10:30 AM EST Respiratory Rate 16 02/27/2024 2:48 PM EST [...] Info) Description 02/05/2025 11:00 AM EDT Follow-Up [facility] Renal Transplant [address] [place] [address] Vinicoi Harris MD 55 [place] [address] 02/05/2025 11:45 AM EDT Follow-Up [facility] Renal Transplant [address] [place] [address] 02/05/2025 12:30 PM EDT Social Work [facility] Renal Transplant [address] [place] [address] Michelet Swartz Health Maintenance Due Date Last Done Comments HPV and Pap Smear 1990 Medicare AWV 09/09/1992 Ophthalmology Exam 09/09/2001 Alcohol/Substance Use Screening 04/16/2024 Depression Screening and Follow-Up 04/16/2024 Social Drivers of Health Kalie ual Screening 04/16/2024 Basic Metabolic Panel 09/05/2024 09/06/2023 , 11/21/2022, 04/06/2022, Additional history exists Influenza Vaccine (#1) 2024 , 01/11/2023, 05/27/2019, Additional history exists Hemoglobin A1C 01/15/2025 10/15/2024, 04/0 05/2024, 04/23/2024, Additional history exists Cervical Cancer Screening 05/17/2026 [...] history exists Procedures * Due to [place] state law, this organization might not be sharing negative HIV tests. Procedure Name Priority Date/Time Associated Diagnosis Comments HLA MONTHLY ANTIBODY IDENTIFICATION - CLASS I Routine 11/10/2024 10:45 AM EDT ESRD (end stage renal disease) (HCC) Pre-transplant evaluation for kidney transplant HLA MONTHYLY ANTIBODY IDENTIFICATION - CLASS II Routine 11/10/2024 10:45 AM EDT ESRD (end stage renal disease) (HCC) Pre-transplant evaluation for kidney transplant GOLD TOP Routine 10/08/2024 12:59 PM EDT Pre-transplant evaluation for kidney transplant EXTRA TUBES Routine 10/08/2024 12:59 PM EDT Pre-transplant evaluation for kidney transplant HLA MONTHYLY ANTIBODY IDENTIFICATION - CLASS II Routine 10/08/2024 12:59 PM EDT ESRD (end stage renal disease) (HCC) Pre-transplant evaluation for kidney transplant HLA MONTHLY ANTIBODY IDENTIFICATION - CLASS I Routine 10/08/2024 12:59 PM EDT ESRD (end stage renal disease) (HCC) Pre-transplant evaluation for kidney transplant POCT GLYCOSYLATED HEMOGLOBIN (HGB A1C) Routine 02/27/2023 1:05 PM EST BASIC METABOLIC PANEL, OUTSIDE LAB Routine 11/21/2022 HEPATITIS C ANTIBODY W/REFLEX TO HCV RNA, QUANTITATIVE PCR Routine 11/30/2020 11:09 AM EDT ESRD (end stage renal disease) on dialysis Pre-transplant evaluation for kidney transplant from Last 3 Months or Most Recently Relevant to Health Maintenance Results * Due to [place] state law, this organization might not be sharing negative HIV tests. * [facility] Top (10/08/2024 12:59 PM EDT) Extra Tube Hold for add-ons. 10/10/2024 7:05 PM EDT [facility] Comment:Auto resulted. Blood Structure of peripheral vein / Unknown 10/08/2024 12:59 PM EDT 10/10/2024 2:34 PM EDT us Vinicio Harris MD LAB BLOOD ORDERABLES Araceli maher Result [facility] [address] [place] [address], * (ABNORMAL) POCT Glycosylated Hemoglobin (HGB A1C), interfaced (02/27/2023 1:05 PM EST) Hemoglobin A1C, POCT 10.6(H) <=5.6 % 02/27/2023 1:20 PM EST [facility] Comment: A1C Recommendation for Non- Adults with Diabetes: <7.0% ADA 2011 Standards of Medical Care in Diabetes Blood 02/27/2023 1:05 PM EST 02/27/2023 1:20 PM EST us Robert Meredith MD LAB POCT ORDERABLES - DEVICE Final Result [facility] [address] [place] [address], * (ABNORMAL) Basic Metabolic Panel, Outside Lab [...] NON-REACT JOSE RAFAEL 12/01/2020 8:37 AM EDT [facility] Signal To Cut-Off 0.02 <1.00 12/01/2020 8:37 AM EDT [employer] [facility] Comment: HCV antibody was non-reactive. There is no laboratory evidence of HCV infection. In most cases, no further action is required. However, if recent HCV exposure is suspected, a test for HCV RNA (test code 98391) is suggested. For additional information please refer to http://education.Hotelbar/faq/NPL05e3 (This link is being provided for informational/ educational purposes only.) Blood Structure of peripheral vein / Unknown Venipuncture / Unknown 11/30/2020 11:09 AM EDT 11/30/2020 11:33 AM EDT Narrative [facility] - 12/01/2020 8:37 AM EDT [facility] Received Date:[id number] Stefna Robbins MD LAB BLOOD ORDERABLES Final Result [facility] [address] [facility] 3rd Floor, [place] [address], [place] [phone] [facility] [address], [place] [address], [place] [phone] from Last 3 Months or Most Recently Relevant to Health Maintenance Insurance * Guarantor: Natali Mtz Account Type Relation to Patient Date of Phone Billing Address Personal/Family Self 1990 [address] [place] [address] MEDICARE [facility] * Guarantor: Irene Mtzsol Account Type Relation to Patient Date of Phone Billing Address Transplant Self 1990 [address] [place] [address] MEDICARE [facility] Advance Directives Documents on File Type Date Recorded Patient Timber Supervisor Expl anation Health Care Proxy 01/26/2023 10:42 AM 01/18/23 Health Care Proxy 12/11/2019 8:18 AM 11/30 Care Teams Radiation Protection Engineer Relationship Specialty Start Date End Date Ally Ferreira [address] [place] [address] PCP - General 02/04/24
--- OUTSIDE RECORDS SUMMARY | 2025-01-07 17:54 | XMS_ITS | Encounter Summary ---
Author Organization [employer] Address [address] [place] [address] 7 [place] [address] Care Team Providers Care Curriculum Counselor Name Role Phone Ally Ferreira MD Primary Care Pro vider Reason for Visit * Reason Onset Date Comments FYI 01/02/2025 Encounter Details Date Type Department Care Team ([facility] Contact Info) Description 01/02/2025 Telephone [facility] MEDICINE [address] [place], [place] [phone] Ally Ferreira MD [address] [place] [address] FYI Social History Tobacco Use Types Packs/Day Years [...] Encounter - Bethany Montaño RN - 01/02/2025 3:28 PM EDT Noted. * Telephone Encounter - Russell Lockhart - 01/02/2025 10:14 AM EDT Tc from [place] with [facility] calling to reported today pt had dialysis was unable to get temporary receptionist of care Maria Luisa will go tomorrow to assist pt. Just a Maria Luisa LOPEZ contact info [phone] documented in this encounter Plan of Treatment Upcoming Encounters Date Type Department Care Team ([facility] Contact Info) Description 01/29/2025 1:45 PM EDT Office Visit [facility] MEDICINE [address] [place] [address] Ally Ferreira MD [address] [place] [address] 06/02/2025 1:00 PM EST Office Visit [facility] OPTOMETRY [address] [place], [place] [phone] Antoinette Zhou, LILLIANA [address] [place] [address] documented as of this encounter Visit Diagnoses Not on filedocumented in this encounter Additional Health Concerns Assessment Noted Time PHQ-9 Depression Total Score: 0 09/03/19 10:22 AM EDT documented as of this encounter Care Teams Curriculum Counselor Relationship Specialty Start Date End Date Ally Ferreira MD [address] [place] [address] PCP - General Internal Medicine 07/25/22 [facility] documented as of this encounter
--- OUTSIDE RECORDS SUMMARY | 2025-01-07 17:54 | XMS_ITS | Encounter Summary ---
Author Organization [employer] Address [address] [place] [address] 7 [place] [address] Care Team Providers Care Digital Forensics Investigator Name Role Phone Ally Ferreira MD Primary Care Pro vider Reason for Visit * Reason Onset Date Comments c/b request 01/19/2023 Encounter Details Date Type Department Care Team ([facility] st Contact Info) Description 01/19/2023 Telephone [facility] MEDICINE [address] [place] [address] Ally Ferreira MD [address] [place] [address] c/b request Social History Tobacco Use Types [...] Miscellaneous Notes * Telephone Encounter - Radha Hrenandez RN - 01/29/2023 11:52 AM EDT Telephone [...] transplant denial. Patient states it was at [facility] that it was denied, due to vascular problems. * Telephone Encounter - Yasmin Krishna RN - 01/23/2023 10:59 AM EDT Telephone call to regarding the following message from Dr. Perry : Please can you check with pt denial was from [facility] or from [facility]? No answer. Message was left to return call to the green team nurses. * Telephone Encounter - Jacinta Porras - 01/19/2023 1:45 PM EDT Tc from pt advising PCP pt was denied for kidney transplant. Please contact pt at [phone] documented in this encounter Plan of Treatment Upcoming Encounters Date Type Department Care Team (Late st Contact Info) Description 01/29/2025 1:45 PM EDT Office Visit [facility] MEDICINE [address] [place] [address] Ally Ferreira MD [address] [place] [address] 06/02/2025 1:00 PM EST Office Visit [facility] OPTOMETRY [address] [place] [address] Antoinette Zhou, OD [address] [place] [address] documented as of this encounter Visit Diagnoses Not on filedocumented in this encounter Additional Health Concerns Assessment Noted Time PHQ-9 Depression Total Score: 0 08/11/19 23 9:11 AM EDT documented as of this encounter Care Teams Digital Forensics Investigator Relationship Specialty Start Date End Date Ally Ferreira MD [address] [place], [place] [phone] PCP - General Internal Medicine [facility]22 [facility] documented as of this encounter
--- OUTSIDE RECORDS SUMMARY | 2025-01-07 17:54 | XMS_ITS | Encounter Summary ---
Author Organization [employer] Address [address] [place] [address] 7 [place] [address] Care Team Providers Care Crewman Armoured Personnel Carrier M113 Name Role Phone Ally Ferreira MD Primary Care Pro vider Reason for Visit * Reason Onset Date Comments call back needed 01/05/2025 Encounter Details Date Type Department Care Team ([facility] st Contact Info) Description 01/05/2025 Telephone [facility] MEDICINE [address] [place], [place] [phone] Ally Ferreira MD [address] [place] [address] call back needed Social History Tobacco Use Types Packs/Day Years [...] Encounter - Bethany Montaño RN - 01/06/2025 1:56 PM EDT Called [facility] [place]. Advised her per Dr. Perry to call vascular surgery for reference on wound care orders. Advised her that pt also seeing wound care. Gwendolyn states she doesn't think pt has seen vascular but advised her pt is following with them and has appointment 01/15/25. Gwendolyn verbalized understanding. After additional research, saw that pt following with wound care (saw 1 notefrom 09/07 for right diabetic ulcer) and podiatry Dr espana (saw seen 10/23/24). Advised her to call [facility] wound care, gave phone number. Gwendolyn verbalized understanding. * Telephone Encounter - Bethany Montaño RN - 01/06/2025 9:26 AM EDT Telephone call returned to Gwendolyn who was not at home and unable to confirm pt demographics for HIPAA. She asked for call back later, explained will try. * Telephone Encounter - Trenton Lau - 01/05/2025 8:46 AM EDT TC from [place] with [facility] wanted to reports pt resumed nursing services and wouldlike to discuss pt's wounds. Reports patient has a lot of tissue surrounding her wounds. Wants to know what pt should be using / doing ? documented in this encounter Plan of Treatment Upcoming Encounters Date Type Department Care Team (Late st Contact Info) Description 01/29/2025 1:45 PM EDT Office Visit [facility] MEDICINE [address] [place] [address] Ally Ferreira MD [address] [place] [address] 06/02/2025 1:00 PM EST Office Visit [facility] OPTOMETRY [address] [place] [address] Abelardo, Antoinette, OD [address] [place] [address] documented as of this encounter Visit Diagnoses Not on filedocumented in this encounter Additional Health Concerns Assessment Noted Time PHQ-9 Depression Total Score: 0 09/03/19 10:22 AM EDT documented as of this encounter Care Teams Crewman Armoured Personnel Carrier M113 Relationship Specialty Start Date End Date lAly Ferreira MD [address] [place] [address] PCP - General Internal Medicine [facility] documented as of this encounter
--- OUTSIDE RECORDS SUMMARY | 2025-01-07 17:54 | XMS_ITS | Encounter Summary ---
Demographics Address [address] [place] [address] Mobile Phone Home Phone Preferred Language Kyrgyz Marital Status Episcopal Affiliation Unknown Race White Ethnic Group Unknown Author Organization [facility] Address [address] [place] [address] Care Team Providers Care Sole Filler Name Role Phone Ally Ferreira Primary Care Provider [phone] Encounter Details Date Type Department Care Team (Late st Contact Info) Description 05/07/2023 Orders Only [facility] Nuclear Medicine [address] [place] [address] Shiva Duran MD [address] [place] [address] Social History Tobacco Use Types Packs/Day Years [...] Info) Description 02/05/2025 11:00 AM EDT Follow-Up [facility] Renal Transplant [address] [place] [address] Vinicio Harris MD [address] [place] [address] 02/05/2025 11:45 AM EDT Follow-Up [facility] Renal Transplant [address] [place] [address] 02/05/2025 12:30 PM EDT Social Work [facility] Renal Transplant [address] [place] [address] Michelet Swartz documented as of this encounter Visit Diagnoses Not on filedocumented in this encounter Care Teams Sole Filler Relationship Specialty Start Date End Date Ally Ferreira [address] [place] [address] PCP - General 02/04/24 documented as of this encounter
--- OUTSIDE RECORDS SUMMARY | 2025-01-07 17:54 | XMS_ITS | Encounter Summary ---
Author Organization [facility] Address [address] [place] [address] Phone Care Team Providers Care Medical Transport Specialist Name Role Phone Azucena Bradley MD Primary Care Provider Reason for Visit * Reason Comments Med Refill Encounter Details Date Type Department Care Team (Late st Contact Info) Description 03/06/2021 Refill [facility] [address] [place] [address] Forrest Adamson MD Social History Tobacco [...] on filedocumented in this encounter Care Teams Medical Transport Specialist Relationship Specialty Start Date End Date Azucena Bradley MD [address] [place] [address], [facility] [address] [place] [address] PCP - General Internal Medicine 01/22/24 documented as of this encounter
--- OUTSIDE RECORDS SUMMARY | 2025-01-07 17:54 | XMS_ITS ---
Demographics Address [address] [place] [address] Mobile Phone Home Phone Preferred Language Congolese Marital Status Faith Affiliation Unknown Race White Ethnic Group Unknown Author Organization [facility] Address [address] [place] [address] Care Team Providers Care Parts Room Associate Name Role Phone Ally Ferreira Primary Care Provider [phone] Transplant Episode Kidney Candidate [facility] ([place], [place]) - [facility] waitlisted on 12/29/2019 Marked as Inactive on 12/22/2024 Reason: Temporarily too Sick Kidney CoordinatorSabina Velázquez RN Email: N/A Scores Score Value Updated Exceptions/Reas ons CPRA 3 09/22/2024 EPTS (Calc) 37 01/07/2025 Ruby Organ Diagnosis Organ Primary Contributory Kidney Diabetes Mellitus - Type I Infection History Noted Survival Infection Treatment Organism Resolved 12/17/2019 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 Biosecurity Officer [phone] [email or web address] Forrest Adamson Referring Physician [phone] N/A Events Pre-Transplant Referred: 06/26/2019 Evaluation began: 12/01/2019 Committee: 12/03/2019 [facility] qualified: 07/15/2018 Center waitlisted: 12/29/2019 Appointments (12/07/2024 - 02/06/2025) When With Visit Type Description 02/05/2025 Transplant - Milka Swartz Follow Up 02/05/2025 Transplant Follow Up 02/05/2025 Transplant - Caren Harris Follow Up Dialysis History Dialysis History Start End Type Comments Center 07/15/2018 In-center Hemodialysis M/W/F SRINI Kaur [facility] Dialysis Center Information Center Phone Fax Address JO[facility] [phone] [place] [address] [address] SHANIQUE CONSTANTINO [address]
--- OUTSIDE RECORDS SUMMARY | 2025-01-07 17:54 | XMS_ITS | Encounter Summary ---
Author Organization [facility] Address [address] [place] [address] Care Team Providers Care Operations Section Manager Name Role Phone Ally Ferreira Primary Care Provider [phone] Encounter Details Date Type Department Care Team (Late st Contact Info) Description 02/22/2024 Orders Only [facility] Nuclear Medicine [address] [place] [phone] Victor Manuel Corado MD PhD [address] [place] [phone] Social History Tobacco Use Types Packs/Day Years [...] Info) Description 02/05/2025 11:00 AM EDT Follow-Up [facility] Transplant [address] [place] [phone] Vinicio Harris MD [address] [place] [phone] 02/05/2025 11:45 AM EDT Follow-Up [facility]plant [address] [place] [address] 02/05/2025 12:30 PM EDT Social Work [facility] [address] [place] [address] Michelet Swartz documented as of this encounter Visit Diagnoses Not on filedocumented in this encounter Care Teams Operations Section Manager Relationship Specialty Start Date End Date Ally Ferreira [address] [place] [id number] PCP - General 02/04/24 documented as of this encounter
--- OUTSIDE RECORDS SUMMARY | 2025-01-07 17:55 | XMS_ITS | Encounter Summary ---
Author Organization [facility] Address [address] [place] [address] Phone Care Team Providers Care Teletype Clerk Name Role Phone Azucena Bradley MD Primary Care Provider Reason for Visit * Reason Comments Med Refill Encounter Details Date Type Department Care Team (Late st Contact Info) Description 12/25/2021 Refill [facility] [address] [place] [address] Forrest Adamson MD Social History [...] on filedocumented in this encounter Care Teams Teletype Clerk Relationship Specialty Start Date End Date Azucena Bradley MD [address] [place] [address], [facility] [address] [place] [address] PCP - General Internal Medicine 01/22/24 documented as of this encounter
--- OUTSIDE RECORDS SUMMARY | 2025-01-07 17:55 | XMS_ITS | Encounter Summary ---
Author Organization [employer] Address [address] [place] [address] Care Team Providers Care Counsel Name Role Phone [facility] Primary Care Provider [phone] Ally Ferreira MD Primary Care Pro vider Reason for Visit * Reason Comments Med Refill Encounter Details Date Type Department Care Team (Late st Contact Info) Description 06/06/2022 Refill [facility] [address] [place], [place] [phone] Adelaide Cano DO [address] [place], [place] [phone] Social History Tobacco Use Types Packs/Day Years [...] AM EST T/C placed to pt via [place] [employer] Client Manager Carlos #[id number]. 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 Advised will update provider. documented in this encounter Plan of Treatment Upcoming Encounters Date Type Department Care Team (Late st Contact Info) Description 01/29/2025 1:45 PM EDT Office Visit [facility] [address] [place] [address] Ally Ferreira MD [address] [place] [address] 06/02/2025 1:00 PM EST Office Visit [facility] [address] [place], [place] [phone] nAtoinette Zhou OD [address] [place] [address] documented as of this encounter Visit Diagnoses Not on filedocumented in this encounter Care Teams Counsel Relationship Specialty Start Date End Date Viri Wall FNP [address] [place] [phone] PCP - General Family Medicine 06/06/22 07/24/22 Ally Ferreira MD [address] [place] [address] [phone] PCP - General Internal Medicine [facility] documented as of this encounter
--- OUTSIDE RECORDS SUMMARY | 2025-01-07 17:55 | XMS_ITS | Clinical Summary ---
Author Organization [facility] Address [address] [place] [address] Care Team Providers Care Typewriter Repairer Name Role Phone Ally Ferreira MD Primary [...] by mouth in the morning. 022 Active [facility] Saline Nasal [place] 0.65 % nasal spray ADMINISTER 1 SPRAY [...] Take by mouth in the morning. Active Continuous Glucose Tray Setter (Dexcom G6 trade show coordinator) device Use as directed. E10.65 023 Active Fiasp FlexTouch 100 UNIT/ML injection 4-10 UNITS SUBCUTANEOUSLY 3 TIMES A DAY 024 Active Liletta, 52 MG, 20.1 MCG/DAY intrauterine device 52 mg by Intrauterine route. 024 Active loratadine (Claritin) 10 MG tablet Take 10 mg by mouth in the morning. 023 Active montelukast (Singulair) 10 MG tablet Take 10 mg by mouth at bedtime. Active Insulin Disposable Pump (Omnipod 5 [id number] Pods Gen 5) misc 1 each every 3rd (third) day. Change pod every 72 hours Active ipratropium (Atrovent) 0.06 % nasal spray Administer 2 sprays into each nostril if needed in the morning, at noon, and at bedtime (allergies). Active levalbuterol (Xopenex) 45 MCG/ACT inhaler Inhale 2 puffs every 4 (four) hours if needed for wheezing. Active sevelamer carbonate (Renvela) 800 MG tablet Take 4 tablets by mouth with breakfast, with lunch, and with evening meal. Active Lokelma 10 g packet TAKE 10 GRAMS BY MOUTH 2X A WEEK ON NON DIALYSIS DAYS Active pregabalin (Lyrica) 25 MG capsule TAKE 1 CAPSULE (25 MG) BY MOUTH 2 TIMES DAILY. 60 capsule Active Ventolin HFA 108 (90 Base) MCG/ACT inhaler INHALE 2 PUFFS INTO LUNGS EVERY 6 HOURS NEEDED FOR SHORTNESS OF BREATH OR WHEEZING FOR 30 DAYS Active Azelastine HCl 137 MCG/SPRAY solution INSTILL 2 SPRAY INTRANASALLY 2 TIMES A DAY FOR 30 DAYS ADMINISTER INTO EACH NOSTRIL Active Calcium Antacid Extra Strength 750 MG chewable tablet CHEW & SWALLOW 1 TABLET BY MOUTH 3 TIMES A DAY WITH MEALS Active cetirizine (ZyrTEC) 10 MG tablet TAKE 1 TABLET BY MOUTH 2 TIMES A DAY FOR ALLERGY SYMPTOMS FOR 90 DAYS Active doxycycline (Adoxa) 100 MG tablet Active Breo Ellipta 100-25 MCG/ACT aerosol powder INHALE 1 PUFF INTO LUNGS DAILY FOR 30 DAYS Active Insulin Aspart 100 UNIT/ML solution FOR 30 DAYS UP TO 60 UNITS DAILY VIA PUMP SUBCUTANEOUSLY USE DIRECTED Active hydrALAZINE (Apresoline) 50 MG tablet Take 1 tablet by mouth 2 times daily. 025 Active NIFEdipine XL (Procardia XL) 90 MG 24 hr tabletIndicatio ns:Hypertension , unspecified type TAKE 1 TABLET BY MOUTH EVERY MORNING. SWALLOW WHOLE. 90 tablet 1 025 Active carvedilol (Coreg) 25 MG tabletIndicatio ns:Primary hypertension TAKE 1 + 1/2 TABLET BY MOUTH TWICE A DAY WITH FOOD 270 tablet 1 025 Active valACYclovir (Valtrex) 500 MG tabletIndicatio ns:History of SIVAKUMAR positive for HSV TAKE 1 TABLET BY MOUTH THREE TIMES A WEEK. GIVE 1 TABLET AFTER DIALYSIS WHEN GIVEN ON DIALYSIS DAY. 36 tablet 2 025 Active valACYclovir (Valtrex) 500 MG tabletIndicatio ns:History of SIVAKUMAR positive for HSV TAKE 1 TABLET BY MOUTH THREE TIMES A WEEK. GIVE 1 TABLET AFTER DIALYSIS WHEN GIVEN ON DIALYSIS DAY. 36 tablet 2 025 2024 Discontinued Active Problems Problem Noted Date Diagnosed Date Allergic rhinitis 09/03/2024 Ulcer of right foot with fat layer [...] of tight control of diabetes Ascites 09/05/2023 Other eosinophilia 04/28/2023 Lung nodule seen on imaging study 01/11/2023 [...] possible transplant in the future would like safe deposit box rental clerk to evaluate pt -referred today Seasonal allergies 01/11/2023 Assessment & Plan (01/11/2023 7:58 PM EDT): Reports seasonal allergies symptoms -px ocean spray,cetirizine 5 mg max 3 times a week Anemia 01/11/2023 Assessment & Plan (01/11/2023 8:03 PM EDT): 07/2022 Hb 9.9, AEC 597 Anemia from chronic dx f w small business consultant -states getting tx w small business consultant- removed from iron pills Peripheral vascular disorder [...] reports to be following with vascular at [facility] --- ---- requested record to Yariel Verma [...] and exercise,discussed healthy life style -to see client delivery manager referred by her endoc Abnormal EKG 08/10/2022 Assessment & Plan (01/11/2023 7:44 PM EDT): -EKG 07/2022 showed now acute ischemic findings there is QTC prolonged to 491 but noted in the past as well -states was seen by cards before unsure reason but w no major findings -found inconclusive stress test done in 2020 -Per pt has been seen by cards at [facility] -sounds possible was evaluated by cards in [...] x1 , HPV x3, hep B x3-immune, [id number] x2 and later p13 in 2018 -will [...] visit , HPV x3, hep B x3, [id number] x2 and later p13 in 2019 ,MMRx2,varicellax2 [...] for self PLAN: 1. Follow up with [facility]: Not recommended for follow-up 2. 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 --px by her small business consultant --advised pt to follow w her specialist to confirm dose of med Assessment & Plan (08/10/2022 12:41 PM EDT): BP at home per pt <140/90 Stopped hydralazine by her small business consultant for hypotensive episodes after HD Currently denies [...] NOT having HD -her sessions are on -W-F -alarm signs and symptoms explained to pt -will need to clarify w pt if taking losartan ? -all meds refilled by her small business consultant ,states dont need any meds refilled -f BP at her next apt -advised to check at home and bring readings Hyperlipidemia 09/06/2012 Proteinuria 01/09/2012 03/07/2023 DM (diabetes mellitus), type 1 with renal compli cations 04/16/1958 Assessment & Plan (01/11/2023 8:05 PM EDT): dxed w DM1 at age 11 y of age c/w nephropathy -ESRD on HD complicated w hypoglycemic events f w textile scrap salvager -Dr Morro Amor on novolog SS ( 6 to 8 u TID)and lantus 18 u HS Hb1AC capillary today is 12.3<---12, LDL 86,CBG elevated today at 235 -tube coater referred today -opthalmo has apt for 05/2023 -sent glucose tab-before and would discuss about gluconate at next visit x emergency -continue care w her textile scrap salvager -will hold on doing Changes per pt [...] HD complicated w hypoglycemic events f w textile scrap salvager -Dr Morro Amor on novolog SS ( 6 to 8 u TID)and lantus 10 u HS --got today records of her last visit w endo in 07/2022 Hb1AC capillary 12 today --from last endo note had hb1AC in 07/2022 10.9? -tube coater referred already by her textile scrap salvager -pd to abigail apt -opthalmo referral today Pt has continuous capillary glucose check marking bw 55 to 400s ----pt takes her readings to her endo office to do changes in meds -to take tomorrow to endo's office -Pd to see a licensed certified orthotist and client delivery manager referred by her textile scrap salvager ----pt recently got the CGM by her [...] Problem Noted Date Diagnosed Date Resolved Date Ear pain, right 08/10/2022 01/11/2023 Assessment & Plan (08/10/2022 12:38 PM EDT): Possible small swelling could be a tiny pimple forming ? No alarming findings -warm compresses -doxy BID x 5 days ESRD (end stage renal disease) on dialysis 05/25/2022 08/10/2022 Acute osteomyelitis of left foot 12/17/2019 08/10/2022 Encounters Date Type Department Care Team Description 01/05/2025 Telephone [facility] [address] [place] [address] Ally Ferreira MD Med Refill 01/05/2025 Telephone [facility] [address] [place] [address] Ally Ferreira MD Durable Medical Equipment 01/05/2025 Telephone [facility] [address] [facility] [place] [address] Tyrell Felicianocy VIRA 01/05/2025 Telephone [facility] [address] [place] [address] Ally Ferreira MD call back needed 01/04/2025 Refill [facility] [address] [facility] [place] [address] Greg Stovall MD History of SIVAKUMAR positive for HSV 01/02/2025 Telephone [facility] [address] [place] [address] Ally Ferreira MD FYI 01/02/2025 Patient Outreach [facility] [address] [facility] [place] [address] Ally Ferreira MD Transition Of Care (Tcm) (HDF scheduled and SDOH completed on 08/26/24 ) 12/25/2024 Patient Outreach [facility] [address] [facility] [place] [address] Ally Ferreira MD Transition Of Care (Tcm) (HDF- Unscheduled ) 12/22/20[address] [place] [address] Ally Ferreira MD Verbal Order call back 12/05/2024 Results Follow-Up [facility] [address] [place] [address] Bettye Llamas, RN Rast Allergen 12/04/2024 Refill [facility] [address] [place] [address] Ally Ferreira MD Primary hypertension 12/04/2024 Refill [facility] [address] [place] [address] Greg Stovall MD History of SIVAKUMAR positive for HSV 12/04/2024 Refill [facility] [address] [place] [address] Karu Hernandez MD Hypertension, unspecified type; Primary hypertension 12/02/2024 Orders Only [facility] External Provider, [facility] 12/02/2024 Telephone [facility] [address] [place] [address] Ally Ferreira MD Lab Orders 11/26/2024 Telephone [facility] [address] [place] [address] Ally Ferreira MD oct recall 11/25/2024 1:00 PM EDT Office Visit [facility] [address] [place] [address] Abelardo, Antoinette, OD 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 ([facility]) (Primary Dx); Epiretinal membrane (ERM) of both eyes; COGENERATION OPERATOR (central serous retinopathy), left; Pseudophakia of both eyes; Presbyopia 11/25/2024 Travel 11/24/2024 Travel 11/09/2024 Refill [facility] [address] [place] [address] Kaur Hernandez MD Hypertension, unspecified type 11/04/2024 10:00 AM EDT Office Visit [facility] [address] [place] [address] Ally Ferreira MD Allergic rhinitis due to other allergic trigger, unspecified seasonality (Primary Dx); Lung nodule seen on imaging study; Ulcer of right foot with fat layer exposed ([facility]); Health care maintenance; ESRD on hemodialysis ([facility]); Type 1 diabetes mellitus with chronic kidney disease on chronic dialysis ([facility]); Seasonal allergies; Hypertension, unspecified type 11/04/2024 Travel 11/03/2024 Telephone [facility] [address] [place], [place] [phone] Ally Ferreira MD Chart Prep 10/28/2024 Patient Outreach [facility] [address] [place], [place] [phone] Ally Ferreira MD Pre-visit Planning (SDOH unable to reach M) 10/18/2024 Refill [facility] [address] [place] [address] Greg Stovall MD History of SIVAKUMAR positive for HSV 10/18/2024 Refill [facility] [address] [place] [address] Ally Ferreira MD History of SIVAKUMAR positive for HSV from Last 3 Months Immunizations Immunization Administration Dates Next Due DTP 09/11/1995,01/23/1994 DTaP [...] Sign Reading Time Taken Comments Blood Pressure 100/56 11/04/2024 10:14 AM EDT Pulse 54 11/04/2024 10:14 AM EDT Temperature 36.2 C (97.1 F) 11/04/2024 10:14 AM EDT Respiratory Rate 20 11/04/2024 10:14 AM EDT Oxygen Saturation 96% 09/02/2024 10:20 AM EDT Inhaled Oxygen Concentration - - Weight 70.8 kg (156 lb) 11/04/2024 10:14 AM EDT Height 154.9 cm (5' 1 ) 11/04/2024 10:14 AM EDT Body Mass Index 29.48 11/04/2024 10:14 AM EDT Plan of Treatment Upcoming Encounters Date Type Department Care Team (Late st Contact Info) Description 01/29/2025 1:45 PM EDT Office Visit [facility] [address] [place] [address] Ally Ferreira MD [address] [place] [address] 06/02/2025 1:00 PM EST Office Visit [facility] OPT[facility] [address] [place] [address] Antoinette Zhou, OD [address] [place] [address] Health Maintenance Due Date Last Done Comments Family Planning (PISQ) 09/09/2006 Lipid Panel 09/05/2024 09/06/2023, 04/11/2023, 08/11/2022, Additional history exists Influenza Vaccine (#1) 2024 , 01/11/2023, 01/11/2023, Additional history exists Diabetes: Hemoglobin A1C 01/15/20252 025, 07/16/2024, 09/06/2023, Additional history exists Diabetes: Foot Exam 07/23/2025 07/23/2024, 07/23/2024, 07/23/2024, Additional history exists SDOH Screening 08/26/2025 08/26/2024 Alcohol/Substance Use Screening 09/02/2025 09/02/2024 Depression Screening 09/02/2025 09/02/2024, 09/03/19 25 Disability Screening 09/02/2025 09/02/2024 Eye Exam 11/25/2025 11/25/2024, 11/14, 11/25/2024, Additional history exists Tobacco Screening 11/25/2025 11/25/2024 Cervical Cancer Screening 05/17/2028 HPV/Cotest 05/17/2028 02/03/2021 Pap Smear 05/17/2028 05/17/2023, 02/03/2021 DTaP/Tdap/Td Vaccines (9 - Td or Tdap) 12/15/2029 12/16/2019, 03/24/2015, 01/31/2012, Additional history exists Pneumococcal Vaccine: Pediatrics (0 to 5 Years) and At-Risk Patients (6 to 49) Years (3 of 3 - PCV20 or PCV21) [...] on patient's age to complete this topic Hepatitis C Screening Completed 09/06/2023, 023 COVID-19 Vaccine Completed 05/13/2024, , 01/26/2022, Additional history exists HIV Screening Completed 12/02/2024, 08/15, 08/11/2022 Meningococcal B Vaccine Aged Out No l onger eligible based on patient's age to complete this topic RSV under 20 months Aged Out No longe r eligible based on patient's age to complete this topic Rotavirus Vaccines Aged Out No longer eligible based on patient's age to complete this topic Procedures Procedure Name Priority Date/Time Associated Diagnosis Comments RAST ALLERGEN (NON ORDERABLE) Routine 12/02/2024 4:42 PM EDT ASPERGILLUS GALACTOMANNAN AG BY EIA Routine 12/02/2024 4:42 PM EDT Eosinophilia, unspecified type Lung nodules IGE ANTIBODY (ANTI IGE IGG) Routine 12/02/2024 4:42 PM EDT Eosinophilia, unspecified type Lung nodules T-SPOT(R).TB Routine 12/02/2024 4:42 PM EDT Health care maintenance STRONGYLOIDES AB IGG Routine 12/02/2024 4:42 PM EDT Eosinophilia, unspecified type VITAMIN B12/FOLATE, SERUM PANEL Routine 12/02/2024 4:42 PM EDT Health care maintenance TSH W/REFLEX TO FT4 Routine 12/02/2024 4 :42 PM EDT Health care maintenance SYPHILIS SCREEN Routine 12/02/2024 4:42 PM EDT Health care maintenance HIV 1/2 ANTIGEN/ANTIBODY, FOURTH GENERATION W/RFL Routine 12/02/2024 4:42 PM EDT Health care maintenance HEPATITIS B SURFACE ANTIBODY, QUALITATIVE Routine 12/02/2024 4:42 PM EDT Health care maintenance Unspecified sexually transmitted disease HEPATITIS B SURFACE ANTIGEN, EIA Routine 12/02/2024 4:42 PM EDT Health care maintenance Unspecified sexually transmitted disease XR FOOT 3+ VIEWS RIGHT Routine 3:48 PM EDT OCT, RETINA - OU - BOTH EYES Routine 11/25/2024 3:26 PM EDT Epiretinal membrane (ERM) of both eyes HM HEMOGLOBIN A1C Routine 10/15/2024 VASC US LOWER EXTREMITY VENOUS DUPLEX BILATERAL Routine 10/09/2024 10:30 AM EDT HEPATITIS C AB W/REFL TO HCV RNA, QN, PCR Routine 09/06/2023 10:47 AM EDT Annual physical exam LIPID PANEL, STANDARD Routine 09/06/2023 10:47 AM EDT Annual physical exam PAP SMEAR Routine 05/17/2023 12:00 AM EST HPV MRNA E6/E7 Routine 02/03/2021 9:37 AM EDT from Last 3 Months or Most Recently Relevant to Health Maintenance Results * Rast Allergen (12/02/2024 4:42 PM EDT) [facility] Rast Allergen SEE NOTE [facility] Comment:SEE SCANNED IN EMR 12/02/2024 4:42 PM EDT 12/05/2024 4:42 PM EDT Ally Ferguson MD HISTORICAL/NON OR DERABLE LABS Final Result [facility] [address] [place] [phone] * Syphilis Screen (12/02/2024 4:42 PM EDT) [facility] Syphilis Screen Nonreactive Nonreactive [facility] Blood 12/02/2024 4:42 PM EDT 12/02/2024 4:42 PM EDT Ally Ferguson MD LAB BLOOD ORDERAB LES Final Result Performing Organization Address [facility]/ZIP Co de Phone Number [facility] [address] [place] [phone] * Aspergillus Antigen, EIA, Serum (12/02/2024 4:42 PM EDT) [facility] Aspergillus AG, EIA, Serum Not Detected Not Detected [facility] Comment:A negative result do es not exclude invasiveaspergillosis. Follow-up testing may beindicated for high-risk patients.An Index <0.50 is considered to be negative.An Index >=0.50 is considered to be positive.A positive result for patients being treated withpiperacillin-tazobactam and other beta-lactamantibiotics such as amoxicillin-clavulanate may isabel false positive due to cross reactivity and shouldbe viewed in conjunction with all clinical findings.Positive results with this assay has also been reportedin patients infected with Penicillium marneffei andCryptococcus.THIS TEST WAS PERFORMED AT:[employer] [id number] [place] [address]GMJVFGQANAYA BENITEZ MD,PHD Index Value 0.05 <0.50 [facility] Blood 12/02/2024 4:42 PM EDT 12/02/2024 4:42 PM EDT us Ally Ferguson MD LAB BLOOD ORDERAB LES Final Result [facility] [address] [place] [phone] * (ABNORMAL) Vitamin B12 (Cobalamin) and Folate Panel, Serum (12/02/2024 4:42 PM EDT) Pathologist [facility] Vitamin B12 903(H) 200 - 900 pg/mL [facility] Comment:NORMAL 200-900 PG/ML INDETERMINATE 160-199 PG/ML DEFICIENT < 160 PG/ML Folate 10.9 > or = 4.0 ng/mL [facility] Comment:Reference Values:> o r = 4.0 ng/mL< 4.0 ng/mL suggests folate deficiency Methotrexate, aminopterin and folinic acid(leucovorin) are chemotherapeutic agents whose molecularstructures are similar to folate; therefore, the Architectfolate assay cannot be used for patients using these drugs. Blood 12/02/2024 4:42 PM EDT 12/02/2024 4:42 PM EDT Ally Ferguson MD LAB BLOOD ORDERAB LES Final Result [facility] [address] [place] [address] [phone] * T-SPOT??.TB (12/02/2024 4:42 PM EDT) T Spot TB Negative Negative [facility] Comment:A negative test resu lt does not exclude the possibilityof exposure to or infection with Mycobacteriumtuberculosis (M. tuberculosis). Patients with recentexposure to TB infected individuals exhibiting anegative T-SPOT.TB result should be considered forretesting within 6 weeks or if other relevant clinicalsymptoms indicate. Results from T-SPOT.TB testing mustbe used in conjunction with each individual'sepidemiological history, current medical status,and results of other diagnostic evaluations.The T-SPOT.TB test is qualitative and results arereported as positive, borderline, or negative, giventhat the test controls perform as expected. In linewith the Centers for Disease Control and Prevention's2010 recommendation to report quantitative measurementsalongside the qualitative result, the laboratoryprovides spot counts for informational purposes only.The T-SPOT.TB test should not be interpreted as aquantitative test. TS PANEL A 0 [facility] TS PANEL B 0 [facility] Negative Control Passed [facility] Positive Control Passed [facility] Comment:For additional infor mation, please refer [email or web address]/faq/[email or web address](This link is being provided for informational/educational purposes only.)THIS TEST WAS PERFORMED AT:[employer]/[id number] [place] [address]SYPDEREANAYA BENITEZ MD,PHD 12/02/2024 4:42 PM EDT 12/02/2024 4:42 PM EDT us Ally Ferguson MD LAB BLOOD ORDERAB LES Final Result Performing Organization Address [facility]/ZIP Co de Phone Number [facility] [address] [place] [phone] * TSH with Reflex to Free T4 (12/02/2024 4:42 PM EDT) TSH reflex Free T4 0.93 0.32 - 4.0 uIU/mL [facility] Blood 12/02/2024 4:42 PM EDT 12/02/2024 4:42 PM EDT Ally Ferguson MD LAB BLOOD ORDERAB LES Final Result Performing Organization Address [facility] Co ky Phone Number [facility] [address] [place] [phone] * Strongyloides Antibody (IgG) (12/02/2024 4:42 PM EDT) Strongyloides Antibody IgG NEGATIVE [facility] Comment:REFERENCE RANGE: NEG ATIVEStrongyloides stercoralis is a parasiticNematode found in tropical and subtropicalregions. Because of low larval densities infeces, stool examination is a relativelyinsensitive diagnostic test; antibody detectionoffers increased sensitivity. Patients withlatent infections who are immunosuppressed orreceiving immunosuppressive therapy are at riskof life- threatening hyperinfection. Significantcrossreactivity may be observed in otherhelminth infections.THIS TEST WAS PERFORMED AT:[employer] [id number] [facility] [place] [address]ZJXWUSOHA LYONS MD,PHD,DIANA Blood Venous blood specimen / Unknown 12/02/2024 4:42 PM EDT 12/02/2024 4:42 PM EDT Ally Ferguson MD LAB BLOOD ORDERAB LES Final Result Performing Organization Address [facility] Co de Phone Number [facility] [address] [place] [phone] * IgE Antibody (Anti-IgE IgG) (12/02/2024 4:42 PM EDT) [facility] IgE Antibody (Anti-IgE IgG) 13 <168 ng/mL [facility] Comment:This test was develo ped and its analytical performancecharacteristics have been determined by [employer].It has not been cleared or approved by the FDA. This assayhas been validated pursuant to the CLIA regulations and isused for clinical purposes.THIS TEST WAS PERFORMED AT:[employer] [id number] [facility] [place] [address]AVLMSSOHA LYONS MD,PHD,DIANA Blood Venous blood specimen / Unknown 12/02/2024 4:42 PM EDT 12/02/2024 4:42 PM EDT Ally Ferguson MD LAB BLOOD ORDERAB LES Final Result [facility] [address] [place] [phone] * Hepatitis B surface antigen, EIA (12/02/2024 4:42 PM EDT) [facility] Hepatitis B Surface Ag Negative Negative [facility] Blood Venous blood specimen / Unknown 12/02/2024 4:42 PM EDT 12/02/2024 4:42 PM EDT Ally Ferguson MD LAB BLOOD ORDERAB LES Final Result [facility] [address] [place] [phone] [phone] * HIV-1/2 Antigen and Antibodies, Fourth Generation, with Reflexes (12/02/2024 4:42 PM EDT) [facility] HIV AB/AG Nonreactive Nonreactive [facility] Comment:HIV-1 p24 Ag and/or HIV-1/HIV-2 Ab not detected.A test result that is nonreactive does not exclude thepossibility of exposure to or infection with HIV-1 and/orHIV-2. Nonreactive results in this assay for individualswith prior exposure to HIV-1 and/or HIV-2 may be due toantigen and antibody levels that are below the limit ofdetection of this assay.The [facility] HIV Ag/Ab Combo assay result andsupplemental assay results should be interpreted inconjunction with the patient's clinical presentation,history and other laboratory results. If the results areinconsistent with clinical evidence, additional testing issuggested to confirm the result. Blood Venous blood specimen / Unknown 12/02/2024 4:42 PM EDT 12/02/2024 4:42 PM EDT us Ally Ferguson MD LAB BLOOD ORDERAB LES Final Result Performing Organization Address City/[facility]/ZIP Co de Phone Number [facility] [address] [place] [phone] * Hepatitis B Surface Antibody, Qualitative (12/02/2024 4:42 PM EDT) ~Hepatitis B Surface Antibody REACTIVE Nonreactive [facility] Comment:REACTIVE: > 11.99 mI U/mL Blood Venous blood specimen / Unknown 12/02/2024 4:42 PM EDT 12/02/2024 4:42 PM EDT us Ally Ferguson MD LAB BLOOD ORDERAB LES Final Result Performing Organization Address City/[facility]/ZIP Co de Phone Number [facility] [address] [place] [phone] * XR Foot 3+ Views Right (12/02/2024 3:48 PM EDT) Anatomical Region Laterality Modality Lower Extremities, Foot Right [facility] 12/02/2024 3:48 PM EDT Narrative 12/02/2024 4:46 PM EDT [facility] [address] [place] [phone] XRay Report Signed Patient: Natali Mtz MR#: [id number] : 1990 Acct:[id number] Age/Sex: 34 / F ADM Date: 12/02/24 Loc: [facility] Attending Dr: Marianne Cartwright MD Ordering Physician: Marianne Cartwright MD Date of Service: 12/02/24 Procedure(s): XR foot RT min 3V Accession Number(s): [id number] cc: Marianne Cartwright MD; Ally Ferreira MD EXAMINATION: XR FOOT, RIGHT CLINICAL INFORMATION: NONHEALING WOUND COMPARISON: July 24, 2024 TECHNIQUE: AP, lateral, and oblique views of the right foot. 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 No new erosive changes are present. However, there is evidence of mature appearing periosteal new bone formation along the lateral base of the fifth metatarsal tuberosity. Moderate atherosclerotic calcifications are present. There appears to be soft tissue ulceration lateral to the base of the fifth metatarsal and calcaneal tuberosity. XR/XR foot RT min 3V IMPRESSION: Skin ulcerations in the lateral midfoot and lateral heel with mature appearing periosteal bone formation involving the fifth metatarsal tuberosity. No erosive changes are evident. Electronically signed by: Denis Yen MD 12/02/2024 04:43 PM EDT Dictated By: Denis Yen MD Signed By: <Electronically signed by Denis Yen MD in OV> 12/02/24 1643 DD/ 1548 TD/TT: 12/02/24 1554 Polyethylene Combiner: Procedure Note Donotuseinterpreter, Image - 12/02/2024 [facility] [address] [place] [phone] XRay Report Signed Patient: Natali Mtz LMR#: [id number] : 1990Acct:[id number] Age/Sex: 34 / FADM Date: 12/02/24 Loc: [facility] Attending Dr: Marianne Cartwright MD Ordering Physician: Marianne Cartwright MD Date of Service: 12/02/24 Procedure(s): XR foot RT min 3V Accession Number(s): [id number] cc: Marianne Cartwright MD; Ally Ferreira MD EXAMINATION: XR FOOT, RIGHT CLINICAL INFORMATION: NONHEALING WOUND COMPARISON: July 24, 2024 TECHNIQUE: AP, lateral, and oblique views of the right foot. 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 No new erosive changes are present. However, there is evidence of mature appearing periosteal new bone formation along the lateral base of the fifth metatarsal tuberosity. Moderate atherosclerotic calcifications are present. There appears to be soft tissue ulceration lateral to the base of the fifth metatarsal and calcaneal tuberosity. XR/XR foot RT min 3V IMPRESSION: Skin ulcerations in the lateral midfoot and lateral heel with mature appearing periosteal bone formation involving the fifth metatarsal tuberosity. No erosive changes are evident. Electronically signed by: Denis Yen MD 12/02/2024 04:43 PM EDT Dictated By: Denis Yen MD Signed By: <Electronically signed by Denis Yen MD in OV> 12/02/24 1643 DD/ 1548 TD/TT: 12/02/24 1554 Polyethylene Combiner: [facility] External Provider IMG XR PROCEDURES Final Result * OCT, Retina - OU - Both Eyes (11/25/2024 3:26 PM EDT) Narrative Tato Zhoun, OD - 11/25/2024 3:26 PM EDT Images from the original result were not included. OCT MACULA INTERPRETATION Optical Coherence Tomography Interpretation Report Measurements: OD OS Macula Thickness 184 microns 171 microns Test findings: OD: Normal foveal contour, epiretinal membrane (ERM) throughout macula, cystoid macular edema (CME) just inferotemporal to fovea, no retinal pigment epithelium (RPE) disruption, no subretinal fluid (SRF) OS: Distorted foveal contour, epiretinal membrane (ERM) throughout macula, no cystoid macular edema (CME), no retinal pigment epithelium (RPE) disruption, 3 pigment epithelial detachments inferior to fovea Impression and Plan: Mild non-proliferative diabetic retinopathy (NPDR) with mild cystoid macular edema (CME) in the right eye. 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 Will have patient monitor vision with amsler grid. Will also monitor here in 6 months. Antoinette Abelardo OD OPHTH TOMOGRAPHY Final Result * (ABNORMAL) Hemoglobin A1c (10/15/2024) Hemoglobin A1C 8.0(A) 4.0 - 5.7 % Piedad Montse Salgado - 10/15/2024 See labs under care everywhere with matching A1c date Historical Provider HEALTH MAINTENANCE Final Result * VASC US Lower Extremity Venous Duplex Bilateral (10/09/2024 10:30 AM EDT) 10/09/2024 10:3 0 AM EDT [facility] - 10/09/2024 2:05 PM EDT [address] [address] Ultrasound Report Signed Patient: Natali Mtz MR#: [id number] [id number] : 1990 Acct:[id number] Age/Sex: 34 / F ADM Date: 10/09/24 Loc: HO. Attending Dr: Lucie Kilpatrick PA-C Ordering Physician: Lucie Kilpatrick PA-C Date of Service: 10/09/24 Procedure(s): US venous duplex LE Accession Number(s): [id number] cc: Lucie Kilpatrick PA-C; Ally Ferreira MD EXAMINATION: US LOWER EXTREMITY VENOUS (REFLUX EXAM), BILATERAL CLINICAL INFORMATION: Varicose veins of right lower extremity with inflammation. COMPARISON: None. TECHNIQUE: Color flow triplex imaging and compression Doppler was performed to evaluate the superficial systems bilaterally. To evaluate the superficial system, the examination was performed in the upright position. Color-flow Doppler ultrasound and compression ultrasound were utilized. In addition, maneuvers were utilized to demonstrate reflux. FINDINGS: 1. SUPERFICIAL ULTRASOUND WITH DOPPLER OF RIGHT LOWER EXTREMITY: GREAT SAPHENOUS VEIN: Saphenofemoral Junction: 0.8 cm; Reflux: 0 ms Proximal Thigh: 0.6 cm; Reflux: 0 ms Mid Thigh: 0.4 cm; Reflux: 0 ms Distal Thigh: 0.5 cm; Reflux: 0 ms At Knee: 0.6 cm; Reflux: 0 ms Proximal Calf: 0.3 cm; Reflux: 0 ms Mid Calf: 0.3 cm; Reflux: 0 ms Distal Calf: 0.2 cm; Reflux: 0 ms DUPLICATED MEDIAL GREAT SAPHENOUS VEIN: None imaged. DUPLICATED LATERAL GREAT SAPHENOUS VEIN: None imaged. SMALL SAPHENOUS VEIN: Saphenopopliteal Junction: 0.2 cm; Reflux: 0 ms Proximal: 0.4 cm; Reflux: 0 ms Distal: 0.3 cm; Reflux: 0 ms VEIN OF GIACOMINI: None imaged. PERFORATORS: Location: [place] Size: 0.2 cm. Reflux: None. VARICOSITIES (greater than or equal to 3 mm): None. 2. SUPERFICIAL ULTRASOUND WITH DOPPLER OF LEFT LOWER EXTREMITY: GREAT SAPHENOUS VEIN: Saphenofemoral Junction: 0.5 cm; Reflux: 0 ms Proximal Thigh: 0.3 cm; Reflux: 0 ms Mid Thigh: 0.3 cm; Reflux: 0 ms Distal Thigh: 0.5 cm; Reflux: 0 ms At Knee: 0.5 cm; Reflux: 0 ms Proximal Calf: 0.2 cm; Reflux: 0 ms Mid Calf: 0.2 cm; Reflux: 0 ms Distal Calf: 0.3 cm; Reflux: 0 ms DUPLICATED MEDIAL GREAT SAPHENOUS VEIN: None imaged. DUPLICATED LATERAL GREAT SAPHENOUS VEIN: SFJ: 0.3 cm, no reflux. Mid thigh: 0.2 cm, no reflux. SMALL SAPHENOUS VEIN: Saphenopopliteal Junction: 0.4 cm; Reflux: 0 ms Proximal: 0.2 cm; Reflux: 0 ms Distal: 0.2 cm; Reflux: 0 ms VEIN OF GIACOMINI: None imaged. PERFORATORS: Location: Mid calf Size: 0.2 cm. Reflux: None. VARICOSITIES (greater than or equal to 3 mm): None imaged. US/US venous duplex LE BI IMPRESSION: RIGHT: 1. No significant superficial system venous reflux identified right lower extremity. 2. No significant varicosities seen. LEFT: 1. No significant superficial system venous reflux identified left lower extremity. 2. No significant varicosities seen. Electronically signed by: Michelet Troncoso MD 10/09/2024 02:02 PM EDT Dictated By: Michelet Troncoso MD Signed By: <Electronically signed by Michelet Troncoso MD in OV> 10/09/24 1402 DD/ 1030 TD/TT: 10/09/24 1056 Polyethylene Combiner: Procedure Note Donotuseinterpreter, Image - 10/09/2024 [place] [address] Ultrasound Report Signed Patient: Natali Mtz LMR#: [id number] : 1990Acct:[id number] Age/Sex: 34 / FADM Date: 10/09/24 Loc: .US Attending Dr: Lucie Kilpatrick PA-C Ordering Physician: Lucie Kilpatrick PA-C Date of Service: 10/09/24 Procedure(s): US venous duplex LE BI Accession Number(s): [id number] cc: Lucie Kilpatrick PA-C; Ally Ferreira MD EXAMINATION: US LOWER EXTREMITY VENOUS (REFLUX EXAM), BILATERAL CLINICAL INFORMATION: Varicose veins of right lower extremity with inflammation. COMPARISON: None. TECHNIQUE: Color flow triplex imaging and compression Doppler was performed to evaluate the superficial systems bilaterally. To evaluate the superficial system, the examination was performed in the upright position. Color-flow Doppler ultrasound and compression ultrasound were utilized. In addition, maneuvers were utilized to demonstrate reflux. FINDINGS: 1. SUPERFICIAL ULTRASOUND WITH DOPPLER OF RIGHT LOWER EXTREMITY: GREAT SAPHENOUS VEIN: Saphenofemoral Junction: 0.8 cm; Reflux: 0 ms Proximal Thigh: 0.6 cm; Reflux: 0 ms Mid Thigh: 0.4 cm; Reflux: 0 ms Distal Thigh: 0.5 cm; Reflux: 0 ms At Knee: 0.6 cm; Reflux: 0 ms Proximal Calf: 0.3 cm; Reflux: 0 ms Mid Calf: 0.3 cm; Reflux: 0 ms Distal Calf: 0.2 cm; Reflux: 0 ms DUPLICATED MEDIAL GREAT SAPHENOUS VEIN: None imaged. DUPLICATED LATERAL GREAT SAPHENOUS VEIN: None imaged. SMALL SAPHENOUS VEIN: Saphenopopliteal Junction: 0.2 cm; Reflux: 0 ms Proximal: 0.4 cm; Reflux: 0 ms Distal: 0.3 cm; Reflux: 0 ms VEIN OF GIACOMINI: None imaged. PERFORATORS: Location: [place] Size: 0.2 cm. Reflux: None. VARICOSITIES (greater than or equal to 3 mm): None. 2. SUPERFICIAL ULTRASOUND WITH DOPPLER OF LEFT LOWER EXTREMITY: GREAT SAPHENOUS VEIN: Saphenofemoral Junction: 0.5 cm; Reflux: 0 ms Proximal Thigh: 0.3 cm; Reflux: 0 ms Mid Thigh: 0.3 cm; Reflux: 0 ms Distal Thigh: 0.5 cm; Reflux: 0 ms At Knee: 0.5 cm; Reflux: 0 ms Proximal Calf: 0.2 cm; Reflux: 0 ms Mid Calf: 0.2 cm; Reflux: 0 ms Distal Calf: 0.3 cm; Reflux: 0 ms DUPLICATED MEDIAL GREAT SAPHENOUS VEIN: None imaged. DUPLICATED LATERAL GREAT SAPHENOUS VEIN: SFJ: 0.3 cm, no reflux. Mid thigh: 0.2 cm, no reflux. SMALL SAPHENOUS VEIN: Saphenopopliteal Junction: 0.4 cm; Reflux: 0 ms Proximal: 0.2 cm; Reflux: 0 ms Distal: 0.2 cm; Reflux: 0 ms VEIN OF GIACOMINI: None imaged. PERFORATORS: Location: Mid calf Size: 0.2 cm. Reflux: None. VARICOSITIES (greater than or equal to 3 mm): None imaged. US/US venous duplex LE BI IMPRESSION: RIGHT: 1. No significant superficial system venous reflux identified right lower extremity. 2. No significant varicosities seen. LEFT: 1. No significant superficial system venous reflux identified left lower extremity. 2. No significant varicosities seen. Electronically signed by: Michelet Troncoso MD 10/09/2024 02:02 PM EDT Dictated By: Michelet Troncoso MD Signed By: <Electronically signed by Michelet Troncoso MD in OV> 10/09/24 1402 DD/ 1030 TD/TT: 10/09/24 1056 Polyethylene Combiner: us [facility] External Provider CV VASC ULAR PROCEDURES Final Result Performing Organization Address City/[facility]/ZIP Co de Phone Number [facility] [address] [place] [address] * Hepatitis C Antibody with Reflex to HCV, RNA, Quantitative, Real-Time PCR (09/06/2023 10:47 AM EDT) Hepatitis C Antibody Nonreactive Nonreactive [facility] Comment:Antibodies to HCV no t detected; does not exclude early acuteHCV infection. Blood Venous blood specimen / Unknown 09/06/2023 10:47 AM EDT 09/06/2023 10:47 AM EDT Ally Ferguson MD LAB BLOOD ORDERAB LES Final Result [facility] [address] [place] [phone] * (ABNORMAL) Lipid Panel, Standard (09/06/2023 10:47 AM EDT) Triglycerides 256(H) <150 mg/dL [facility] Comment:Desirable Triglyceri de: less than 150 mg/dLBorderline High Triglyceride 150-199 mg/dLHigh Triglyceride: 200-499 mg/dLVery High Triglyceride: greater than or equal to 5OO mg/dL Cholesterol 203(H) <200 mg/dL [facility] Comment:Desirable Cholestero l: less than 200 mg/dLBorderline High Cholesterol: 200-239 mg/dLHigh Cholesterol: greater than 239 mg/dL LDL Cholesterol Calculated 123(H) <100 mg/dL [facility] Comment:Desirable LDL: less than 100 mg/dLNear Optimal/Above Optimal LDL: 110- 129 mg/dLBorderline High LDL: 130-159 mg/dLHigh LDL: 160-189 mg/dLVery High LDL: greater than or equal to 190 mg/dL HDL Cholesterol 29(L) >40 mg/dL [facility] Comment:Desirable HDL: great er than 40 mg/dL Note: This HDL assay may give artificially low results in patients with liver disease. Blood Venous blood specimen / Unknown 09/06/2023 10:47 AM EDT 09/06/2023 10:47 AM EDT Ally Ferguson MD LAB BLOOD ORDERAB LES Final Result [facility] [address] [place] [phone] * Pap Smear (05/17/2023 12:00 AM EST) Swab Magnolia Gardiner MD LAB CYTOLOGY ORDERABLES F inal Result Performing Organization Address City/[facility]/ZIP Co de Phone Number [facility] [address] [place] [phone] * HPV mRNA E6/E7 (02/03/2021 9:37 AM EDT) HPV nRNA E6/E7 Not Detected Not Detected [facility] Comment: Methodology: Dietary Cook-Mediated Amplification This assay detects E6/E7 viral messenger RNA (mRNA) from 14 high-risk HPV types (16,18,31,33,35,39,45,51,52,56,58,59,66,68). The analytical performance characteristics of this assay have been determined by [employer]. The modifications have not been cleared or approved by the FDA. This assay has been validated pursuant to the CLIA regulations and is used for clinical purposes. For additional information, please refer to http://education.YouEye.com/faq/NPP821r5 (This link if provided for information/ educational purposes only.) HPV nRNA E6/E7 Not Detected Not Detected [facility] Comment: Methodology: Dietary Cook-Mediated Amplification This assay detects E6/E7 viral messenger RNA (mRNA) from 14 high-risk HPV types (16,18,31,33,35,39,45,51,52,56,58,59,66,68). The analytical performance characteristics of this assay have been determined by [employer]. The modifications have not been cleared or approved by the FDA. This assay has been validated pursuant to the CLIA regulations and is used for clinical purposes. For additional information, please refer to http://education.GoNogging/faq/XFI432e8 (This link if provided for information/ educational purposes only.) 02/03/2021 9:37 AM EDT us Jen Lozoya [facility] LAB BLOOD ORDERABLES Araceli maher Result [facility] [address] from Last 3 Months or Most Recently Relevant to Health Maintenance Insurance [employer] Care Teams Typewriter Repairer Relationship Specialty Start Date End Date Ally Ferreira MD [address] [place] [phone] PCP - General Internal Medicine 07/25/22 [facility] 12/25/24
--- OUTSIDE RECORDS SUMMARY | 2025-01-07 17:55 | XMS_ITS | Encounter Summary ---
Author Organization [employer] Address [address] [place] [address] 7 [place] [address] Care Team Providers Care Hardware Assembler Name Role Phone Ally Ferreira MD Primary Care Pro vider Reason for Visit * Reason Onset Date Comments Referral 05/01/2023 Encounter Details Date Type Department Care Team ([facility] st Contact Info) Description 05/01/2023 Telephone [facility] MEDICINE [address] [place], [place] [phone] Ally Ferreira MD [address] [place], [place] [phone] Referral Social History Tobacco Use Types Packs/Day [...] AM EST documented as of this encounter Functional Status * Over the last 2 weeks, how often have you been bothered by any of the following problems? Question Answer Date of Assessment Author Feeling nervous, anxious, or on edge 3 05/01/2023 12:38 PM Santa Perales Not being able to stop or control worrying 2 05/01/2023 12:38 PM Santa Perales Worrying too much about different things 2 05/01/2023 12:38 PM Santa Perales Trouble relaxing 0 05/01/2023 12:38 PM Allie Perales Being so restless that it is hard to sit still 2 05/01/2023 12:38 PM Santa Perales Becoming easily annoyed or irritable 0 05/01/2023 12:38 PM Santa Perales Feeling afraid as if somethi ng awful might happen 1 05/01/2023 12:38 PM Santa Perales LISA-7 Total Score 10 05/01/2023 12:38 PM Allie Perales documented as of this encounter Miscellaneous Notes * Telephone Encounter - Jacinta Porras - 05/01/2023 9:07 AM EST Tc from pt calling in regards to podiatry referral. Pt was advised by office, Dr. Casas has retired. documented in this encounter Plan of Treatment Upcoming Encounters Date Type Department Care Team (Late st Contact Info) Description 01/29/2025 1:45 PM EDT Office Visit [facility] MEDICINE [address] [place] [phone] Ally Ferreira MD [address] [place] [address] 06/02/2025 1:00 PM EST Office Visit [facility] OPTOMETRY [address] [place], [place] [phone] Antoinette Zhou, OD [address] [place], [place] [phone] documented as of this encounter Visit Diagnoses Not on filedocumented in this encounter Additional Health Concerns Assessment Noted Time PHQ-9 Depression Total Score: 0 08/11/19 23 9:11 AM EDT documented as of this encounter Care Teams Hardware Assembler Relationship Specialty Start Date End Date Ally Ferreira MD [address] [place], [place] [phone] PCP - General Internal Medicine 07/25/22 [facility] 12/25/24 documented as of this encounter
--- OUTSIDE RECORDS SUMMARY | 2025-01-07 17:55 | XMS_ITS | Encounter Summary ---
Author Organization [employer] Address [address] [place] [address] 7 [place] [address] Care Team Providers Care Can Tender Name Role Phone Ally Ferreira MD Primary Care Pro vider Reason for Visit * Reason Comments Med Refill Encounter Details Date Type Department Care Team (Late Contact Info) Description 09/02/2022 Refill [facility] MEDICINE [address] [place], [place] [phone] Ally Ferreira MD [address] [place] [address] Social History Tobacco Use Types Packs/Day Years [...] Description 01/29/2025 1:45 PM EDT Office Visit [facility] MEDICINE [address] [place] [address] Ally Ferreira MD [address] [place] [phone] 06/02/2025 1:00 PM EST Office Visit [facility] OPTOMETRY [address] [place], [place] [phone] Antoinette Zhou, OD [address] [place], [place] [phone] documented as of this encounter Visit Diagnoses Not on filedocumented in this encounter Additional Health Concerns Assessment Noted Time PHQ-9 Depression Total Score: 0 08/11/19 23 9:11 AM EDT documented as of this encounter Care Teams Can Tender Relationship Specialty Start Date End Date Ally Ferreira MD [address] [place], [place] [phone] PCP - General Internal Medicine 07/25/22 [facility] 12/25/24 documented as of this encounter
--- OUTSIDE RECORDS SUMMARY | 2025-01-07 17:55 | XMS_ITS | Clinical Summary ---
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 Active cinacalcet (SENSIPAR) 30 mg tablet Take 30 mg by mouth 3 (three) times a week on Sunday, Sunday, Sunday. Active multivitamin Liqd Take 5 mL by mouth daily. Active NIFEdipine (PROCARDIA XL) 90 MG 24 hr tablet Take 90 mg by mouth daily. Active valACYclovir (VALTREX) 500 MG tablet Take 500 mg by mouth daily. Active acetaminophen (TYLENOL) 325 mg tablet Take 650 mg by mouth every 6 (six) hours as needed. Active aspirin 81 MG EC tablet Take 81 mg by mouth daily. Active clopidogrel (PLAVIX) 75 mg tablet Take 75 mg by mouth daily. Active calcitriol (ROCALTROL) 0.25 MCG capsule Take 0.25 mcg by mouth 3 (three) times a week on Sunday, Sunday, Sunday. Active cetirizine (ZYRTEC) 10 MG tablet Take 10 mg by mouth daily. Active folic acid (FOLVITE) 1 MG tablet Take 1 mg by mouth daily. Active hydrALAZINE (APRESOLINE) 10 MG tablet Take 10 mg by mouth 2 (two) times a day. Active montelukast (SINGULAIR) 10 mg tablet Take 10 mg by mouth nightly at bedtime. Active sevelamer carbonate (RENVELA) 800 mg tablet Take 3,200 mg by mouth 3 (three) times a day with meals. Active cefepime (MAXIPIME) 2 gram/50 mL IVPB Inject 2,000 mg into the vein 3 (three) times a week on Sunday, Sunday, Sunday. After dialysis Active miconazole 2 % Oint Apply topically 2 (two) times a day. 56 g 01/02/20 25 Active insulin aspart U-100 (NOVOLOG) 100 unit/mL injection vial Inject 1 Units under the skin daily. Continue your insulin pump at prior dosing 01/02/20 25 Active ferrous sulfate 325 mg (65 mg iliamna iron) tablet Take 1 tablet (325 mg total) by mouth 3 (three) times a week on Sunday, Sunday, Sunday. 12 tablet 01/03/20 25 Active pregabalin (LYRICA) 25 MG capsule Take 1 capsule (25 mg total) by mouth daily. 01/02/20 25 Active insulin lispro (ADMELOG, HUMALOG) 100 unit/mL injection vial Inject under the skin 3 (three) times a day before meals. 025 Discontinued(No longer taking) insulin glargine (LANTUS) 100 unit/mL injection vial Inject 10 Units under the skin nightly at bedtime. 025 Discontinued(No longer taking) losartan (COZAAR) 50 MG tablet Take 50 mg by mouth daily. 025 Discontinued(No longer taking) pregabalin (LYRICA) 25 MG capsule Take 25 mg by mouth 2 (two) times a day. 025 Discontinued pyridoxine, vitamin B6, (B-6) 50 MG tablet Take 50 mg by mouth daily. 025 Discontinued(St op Taking at Discharge) Active Problems Problem Noted Date Diagnosed Date Anemia, unspecified type 12/29/2024 Assessment & Plan (01/01/2025 7:44 AM EDT): Unclear source Hb holding post RBCs, will defer to medicine if need for CLINICAL TRIAL COORDINATOR eval. Assessment & Plan (12/31/2024 3:49 PM EDT): Natali's last H&H from [facility] on the was 7.5 and 23.4. She did have 1 unit of packed red blood cells during that admission. She had 3 units here with return of Hbg to >7. She was started on aspirin and Plavix during that hospital stay after vascular procedures including cutdown and repair of the brachial artery, thrombectomy with complete division of an angio and patch angioplasty on December 09. She also had placement of a permacath in the right upper chest wall. No obvious signs of bleeding at this time. Hold the aspirin and Plavix for right now until we are certain things are stabilized. EGD performed today without evidence of UGIB. DW Dr Quintero, with that drop in H/H, any Gi bleeding would be clinically apparent. Discussed with Natali and her partner, she has some bleeding vaginally but it is markedly better than it has been in the past due to a progesterone IUD. They have no concerns that she is losing significant blood from there. No other bruising or bleeding. The only other place that was bothersome after her recent hospital stay with the left thigh but there is no swelling or pain there to suggest a significant bleeding. Discussed with Dr. Galeana, we will transfuse her 1 more unit today to get her above 7 and then she can follow-up as an outpatient. Will do a noncontrast CAT scan of the abdomen pelvis just to make sure there is no evidence for retroperitoneal bleed. Avoiding contrast with the renal issues and history of itching. We should be able to see 2 or 3 units of blood if she has bled into the retroperitoneum. Assessment & Plan (12/31/2024 10:22 AM EDT): Unclear source, possible CLINICAL TRIAL COORDINATOR related medicine on board broaden differential possible need of CT scan rule out retroperitoneal hematoma. Assessment & Plan (12/30/2024 8:53 AM EDT): Multifactorial with occult GI bleed playing a role going for EGD this morning. Assessment & Plan (12/31/2024 1:07 AM EDT): Natali's last H&H from [facility] on the was 7.5 and 23.4. She did have 1 unit of packed red blood cells during that admission. Do not have access to other labs. She was ordered 3 units of packed red blood cells in the ER and is currently on the second unit while at dialysis. Nurse reports no obvious bleeding or bruising. She was started on aspirin and Plavix during that hospital stay after vascular procedures including cutdown and repair of the brachial artery, thrombectomy with complete division of an angio and patch angioplasty on December 09. She also had placement of a permacath in the right upper chest wall. No obvious signs of bleeding at this time. Hold the aspirin and Plavix for right now until we are certain things are stabilized. EGD performed today without evidence of UGIB. Continue PPI daily. Monitor hemoglobin daily. Assessment & Plan (12/29/2024 10:54 AM EDT): Natali's last H&H from [facility] on the 10th was 7.5 and 23.4. She did have 1 unit of packed red blood cells during that admission. Do not have access to other labs. She was ordered 3 units of packed red blood cells in the ER and is currently on the second unit while at dialysis. Nurse reports no obvious bleeding or bruising. She was started on aspirin and Plavix during that hospital stay after vascular procedures including cutdown and repair of the brachial artery, thrombectomy with complete division of an angio and patch angioplasty on December 09. She also had placement of a permacath in the right upper chest wall. No obvious signs of bleeding at this time. Will check FIT testing, hold the aspirin and Plavix for right now until we are certain things are stabilized. ESRD on dialysis 12/29/2024 Assessment & Plan (01/01/2025 7:44 AM EDT): Continue HD on MWF tolerating dialysis well via PermCath. - Continue above antihypertensives - Continue sevelamer 3200 mg TID, Sensipar 30 mg MWF, and calcitriol 0.25 mcg MWF - Renal diet - [facility] ID recommending IV cefepime 2 gm with/after HD x 6 weeks (end date of 01/23/25). -Follows closely with vascular surgery at [facility]. - Outpatient f/u with Vascular re fistula creation - please dose reduce antibiotics/medications as appropriate for eGFR -Discharged to follow-up with her outpatient nephrology team Pal BRENNAN and vascular surgery. Assessment & Plan (12/31/2024 3:49 PM EDT): Appreciate Dr. Galeana seeing the patient. Will follow his guidance on her medications related to dialysis as well. Had dialysis this am, feeling reaonably well, just weak. Assessment & Plan (12/31/2024 10:22 AM EDT): Continue HD on MWF tolerating dialysis well via PermCath. - Continue above antihypertensives - Continue sevelamer 3200 mg TID, Sensipar 30 mg MWF, and calcitriol 0.25 mcg MWF - Renal diet - [facility]ast[facility] HOGAN recommending IV cefepime 2 gm with/after HD x 6 weeks (end date of 01/23/25). -Follows closely with vascular surgery at [facility]. - Outpatient f/u with Vascular re fistula creation - please dose reduce antibiotics/medications as appropriate for eGFR -Discharged to follow-up with her outpatient nephrology team Pal BRENNAN and vascular surgery. Assessment & Plan (12/30/2024 8:53 AM EDT): Continue HD on MWF schedule patient is signed consent hepatitis B surface antigen , plan to dialyze tomorrow. - Continue above antihypertensives - Continue sevelamer 3200 mg TID, Sensipar 30 mg MWF, and calcitriol 0.25 mcg MWF - Renal diet - [facility] ID recommending IV cefepime 2 gm with/after HD x 6 weeks (end date of 01/23/25). Arranged at outpatient HD unit on 12/22. -Follows closely with vascular surgery at [facility]. - Outpatient f/u with Vascular re fistula creation - please dose reduce antibiotics/medications as appropriate for eGFR -Discharged to follow-up with her outpatient nephrology team Pal BRENNAN and vascular surgery. Assessment & Plan (12/31/2024 1:07 AM EDT): Appreciate Dr. Galeana seeing the patient. Will follow his guidance on her medications related to dialysis as well Assessment & Plan (12/29/2024 10:54 AM EDT): Appreciate Dr. Galeana seeing the patient. She is having dialysis currently. Will follow his guidance on her medications related to dialysis as well Osteomyelitis of right foot 12/29/2024 Assessment & Plan (01/01/2025 7:44 AM EDT): Evaluation follows with ID and vascular surgery at [facility] if need be may benefit from transferring for further care. Assessment & Plan (12/31/2024 3:49 PM EDT): Natali is currently on cefepime on Wednesdays and Fridays postdialysis for right heel osteomyelitis. Apparently cultures grew Pseudomonas. She has follow- up with the ID team scheduled for the . We will continue that plan for now. She has 2 open wounds on the right foot,for the past 3 months with poor access to resources. Wound care nurse recommended surgical evaluation. Surgery consulted. Assessment & Plan (12/31/2024 10:22 AM EDT): Evaluation follows with ID and vascular surgery at [facility] if need be may benefit from transferring for further care. Assessment & Plan (12/31/2024 5:06 AM EDT): 34-year-old female with type 1 diabetes and end-stage renal disease on dialysis with known diabetic foot wounds that are being actively managed by [facility] infectious disease and vascular surgery. Patient currently receiving cefepime 3 times a week with dialysis and has reportedly an appointment tomorrow the with [facility] infectious disease. Patient notes that the wound appears much improved from her recent hospitalization at [facility]. 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 We discussed potential surgical debridement as well as her past discussions with her surgical team regarding potential BKA. At this time patient states that any surgical intervention she would want performed by her primary surgical team at [facility]. Recommendations- Continue local wound care and IV abx. Follow up with her primary surgical/infection disease team at [facility] as scheduled. Assessment & Plan (12/30/2024 8:53 AM EDT): Evaluation follows with ID and vascular surgery at [facility] if need be may benefit from transferring for further care. Assessment & Plan (12/31/2024 1:07 AM EDT): Natali is currently on cefepime on Wednesdays and Fridays postdialysis for right heel osteomyelitis. Apparently cultures grew Pseudomonas. She has follow- up with the ID team scheduled for the . We will continue that plan for now. She has 2 open wounds on the right foot,for the past 3 months with poor access to resources. Wound care nurse recommended surgical evaluation. Surgery consulted. Assessment & Plan (12/29/2024 10:54 AM EDT): Natali is currently on cefepime on Wednesdays and Fridays postdialysis for right heel osteomyelitis. Apparently cultures grew Pseudomonas. She has follow- up with the ID team scheduled for the . We will continue that plan for now. She has 2 open wounds on the right foot and we will have our wound team continue to follow as well. Hypertension secondary to other renal disorders 12/29/2024 Assessment & Plan (01/01/2025 7:44 AM EDT): Continue to monitor on current medication Quality Clinical Documentation: Assessment & Plan (12/31/2024 3:49 PM EDT): We will plan to continue her outpatient regimen assuming pressures are stable anemia Assessment & Plan (12/31/2024 10:22 AM EDT): Continue to monitor on current medication Assessment & Plan (12/30/2024 8:53 AM EDT): Assessment & Plan (12/30/2024 8:14 AM EDT): We will plan to continue her outpatient regimen assuming pressures are stable anemia Assessment & Plan (12/29/2024 10:54 AM EDT): We will plan to continue her outpatient regimen assuming pressures are stable anemia Pre-transplant evaluation for end stage renal di sease 10/14/2021 Uncontrolled type 1 diabetes mellitus with ESRD (end-stage renal disease) 10/14/2021 Assessment & Plan (12/31/2024 3:45 PM EDT): Natali was previously on Lantus and short acting insulin. They use that briefly while at [facility] but then had her return to her pump. She has supplies and has been using her pump while here. Peripheral vascular disease 10/14/2021 Encounters Date Type Department Care Team Description 01/01/2025 Refill [facility] [address] [place] [id number] Kiet Hidalgo MD Med Change Request 12/31/2024 Procedure Pass [facility], Ct Scan - [address] [address] 12/30/2024 12:45 PM EDT - 12/30/2024 1:00 PM EDT Surgery [facility] Endoscopy Admitting Dept Virtual Department [address] [place] [id number] Dany Quintero MD ESOPHAGOGASTRODUODENOSCOPY 12/30/2024 9:35 AM EDT Anesthesia Event [facility] Endoscopy Admitting Dept Virtual Department [address] [place] [phone] Ney Krishnamurthy MD 12/30/2024 Procedure Pass [facility] Endoscopy Admitting Dept Virtual Department [address] [place] [phone] 12/29/2024 2:52 AM EDT - 01/01/2025 12:38 PM EDT Hospital Encounter [facility] [address] [id number] Ximena Kang MD Hampson, Brian S, DO Arepally, Sandeep, MD Miskovsky, Glenn E, MD Discharge Disposition: Home-Health Care Svc from Last 3 Months Family History Medical History Relation Comments No Known Problems Daughter Kidney disease Father Asthma Mother Diabetes Mother Relation Status Comments Brother Alive Daughter Alive Father Alive Maternal Aunt Alive Mother Alive Social History Tobacco Use Types Packs/Day Years Used Date Smoking Tobacco: Never Smokeless Tobacco: Never Tobacco Cessation:Counseling Given: Not Answered Alcohol Use Standard Drinks/Week Comments Not Currently 0 (1 standard drink = 0.6 oz pur e alcohol) Education Answer Date Recorded Are you interested in more education? Not on sofiya e 08/12/2022 Are you concerned about learning? Not on file 08/12/2022 No 08/12/2022 No 08/12/2022 Food Answer Date Recorded Within the past 6 months we worried whether our food would run out before we got money to buy more. Never True 12/29/2024 Within the past 6 months the food we bought just didn't last and we didn't have enough money to get more. Never True Residential Stability Answer Date Recor ded What is your housing situation today? I have hermann sing 12/29/2024 How many times have you moved in the past 12 sun th? One time 12/29/2024 Paying for Meds Answer Date Recorded Do you have trouble paying for medicines? Yes 12/29/2024 Paying Utility Bills Answer Date Record ed Do you have trouble paying your heating or elect ricity bill? No 12/29/2024 Transportation Answer Date Recorded Has the lack of transportati on kept you from medical appointments or from getting medications? No 12/29/2024 Digital Access Answer Date Recorded No 12/29/2024 Yes 12/29/2024 Do you have reliable internet access at home? Ye s 12/29/2024 Do you have a device (e.g., phone, tablet, computer) with a working camera? Yes 12/29/2024 Intimate Partner Violence Answer Date R ecorded Are you denied basic needs s uch as food, clothing, or medical care? No 12/30/2024 In the past 12 months have y ou been in a relationship with a person who hurts, threatens, or tries to control you? No 12/30/2024 Are you denied basic needs s uch as food, clothing, or medical care? No 12/30/2024 In the past 12 months have y ou been in a relationship with a person who hurts, threatens, or tries to control you? No 12/30/2024 Comments Unknown Sex and Gender Information Value Date Recorded Sex Assigned at Female 06/01/2021 11:48 AM EST Legal Sex Female 11:29 AM EST Gender Identity Female 06/01/2021 11:48 AM EST Sexual Orientation Straight 06/01/2021 11 :48 AM EST Last Filed Vital Signs Vital Sign Reading Time Taken Comments Blood Pressure 154/76 01/01/2025 8:02 AM EDT Pulse 85 01/01/2025 8:02 AM EDT Temperature 37 C (98.6 F) 01/01/2025 8:02 AM EDT Respiratory Rate 19 01/01/2025 8:02 AM EDT Oxygen Saturation 98% 01/01/2025 8:02 AM EDT Inhaled Oxygen Concentration - - Weight 69.9 kg (154 lb) 12/29/2024 3:05 AM EDT Height 154.9 cm (5' 1 ) 12/29/2024 3:05 AM EDT Body Mass Index 29.1 12/29/2024 3:05 AM EDT Plan of Treatment Health Maintenance Due Date Last Done Comments DEPRESSION SCREENING 2003 BLOOD PRESSURE 02/07/2023 08/08/2022 INFLUENZA VACCINE (#1) 2024 , 01/20/2015, 04/02/2014 COVID-19 VACCINE ( season) 2024 03/30/2021, 07/09/2020, 05/26/2020 HEMOGLOBIN A1C 04/17/2025 10/15/2024, 07/0 05/2024, 07/16/2024, Additional history exists LIPID PANEL 10/15/2025 10/15/2024, 09/06/2023 DIABETIC EYE EXAM 11/25/2025 11/25/2024 PAP SMEAR 05/17/2026 05/17/2023 Adult Td,Tdap Booster 12/15/2029 12/16/2019 , 03/24/2015, 01/31/2012, Additional history exists PNEUMOCOCCAL VACCINES (0-49 years) (3 of 3 - PCV20 or PCV21) 09/09/2041 08/21/2018, 08/02/2018, 04/16/2013, Additional history exists HIB VACCINES Completed 05/05/1993, 12/1992, 12/22/1992 MENINGOCOCCAL VACCINES (ACWY) Aged Out 04/26/2007 No longer eligible based on patient's age to complete this topic HEPATITIS A VACCINES Aged Out 12/16/2019 No long er eligible based on patient's age to complete this topic HIV ONE-TIME SCREENING (18-65 YEARS) Completed 10/13/2021 SMOKING STATUS SCREENING (Once After 26 Yrs) Completed 03/07/2022 HEPATITIS C SCREENING Completed 11/07/2024 , 04/23/2024, 10/13/2021, Additional history exists MENINGOCOCCAL VACCINES (B) Aged Out N o longer eligible based on patient's age to complete this topic Medical Devices Not on file Procedures Procedure Name Priority Date/Time Associated Diagnosis Comments OUTSIDE LAB 01/02/2025 OUTSIDE LAB 01/02/2025 OUTSIDE IMAGING 01/02/2025 OUTSIDE IMAGING 01/02/2025 OUTSIDE PROCEDURE 01/02/2025 OUTSIDE PROCEDURE 01/02/2025 OUTSIDE PROCEDURE 01/02/2025 POCT GLUCOSE Routine 01/01/2025 7:46 AM EDT PHOSPHORUS Routine 01/01/2025 5:32 AM EDT MAGNESIUM Routine 01/01/2025 5:32 AM EDT COMPREHENSIVE METABOLIC PANEL Routine 5:32 AM EDT CBC Routine 01/01/2025 5:32 AM EDT POCT GLUCOSE Routine 12/31/2024 7:51 PM EDT TRANSFUSE RED BLOOD CELLS Routine 2024 5:[address] ABDOMEN/PELVIS WITHOUT CONTRAST Routine 12/31/2024 4:22 PM EDT POCT GLUCOSE Routine 12/31/2024 12:01 PM EDT POCT GLUCOSE Routine 12/31/2024 7:35 AM EDT PHOSPHORUS Routine 12/31/2024 6:00 AM EDT MAGNESIUM Routine 12/31/2024 6:00 AM EDT COMPREHENSIVE METABOLIC PANEL Routine 6:00 AM EDT CBC Routine 12/31/2024 6:00 AM EDT POCT GLUCOSE Routine 12/30/2024 7:32 PM EDT POCT GLUCOSE Routine 12/30/2024 4:30 PM EDT POCT GLUCOSE Routine 12/30/2024 11:41 AM EDT ESOPHAGOGASTRODUODENOSCOPY 12/30 9:35 AM EDT egd ENDOSCOPY PROCEDURE 12/30/2024 9:30 AM EDT POCT GLUCOSE Routine 12/30/2024 7:53 AM EDT CBC Routine 12/30/2024 6:29 AM EDT BASIC METABOLIC PANEL Routine 12/30/2024 6:29 AM EDT POCT GLUCOSE Routine 12/29/2024 8:48 PM EDT CBC Timed 12/29/2024 6:19 PM EDT POCT GLUCOSE Routine 12/29/2024 4:39 PM EDT POCT GLUCOSE Routine 12/29/2024 1:02 PM EDT HC BLOOD OCCULT FECAL HGB DE TER IA QUAL FECES 1-3 Routine 12/29/2024 12:33 PM EDT TRANSFUSE RED BLOOD CELLS STAT 2024 12:00 PM EDT TRANSFUSE RED BLOOD CELLS STAT 2024 9:37 AM EDT CBC AND DIFFERENTIAL Routine 12/29/2024 9:17 AM EDT HAPTOGLOBIN Routine 12/29/2024 8:07 AM EDT HEPATITIS B SURFACE ANTIGEN STAT 12/15 8:07 AM EDT TRANSFUSE RED BLOOD CELLS STAT 2024 7:10 AM EDT IP CONSULT TO WOUND NURSE Routine 2024 7:02 AM EDT LACTIC ACID (LACTATE) STAT 12/29/2024 6:26 AM EDT TROPONIN STAT 12/29/2024 6:26 AM EDT BLOOD CULTURE, ROUTINE STAT 6:26 AM EDT BLOOD CULTURE, ROUTINE STAT 6:26 AM EDT TYPE AND SCREEN (ABO,RH,ANTI BODY SCREEN) STAT 12/29/2024 5:13 AM EDT LFTS (HEPATIC PANEL) Routine 12/29/2024 5:13 AM EDT BASIC METABOLIC PANEL STAT 12/29/2024 5:13 AM EDT TROPONIN STAT 12/29/2024 5:13 AM EDT XR FOOT 3 OR MORE VIEWS (RIGHT) Routine 12/29/2024 3:48 AM EDT XR CHEST PORTABLE Routine 12/29/2024 3:48 AM EDT ECG 12-LEAD STAT 12/29/2024 3:14 AM EDT COVID PANDEMIC RESPIRATORY V IRAL ORDER (PRO) STAT 12/29/2024 3:14 AM EDT C-REACTIVE PROTEIN STAT 12/29/2024 3:12 AM EDT NT-PROBNP STAT 12/29/2024 3:12 AM EDT MAGNESIUM STAT 12/29/2024 3:12 AM EDT PT-INR STAT 12/29/2024 3:12 AM EDT HCG, SERUM QUALITATIVE STAT 3:12 AM EDT BASIC METABOLIC PANEL STAT 12/29/2024 3:12 AM EDT CBC AND DIFFERENTIAL STAT 12/29/2024 3:12 AM EDT ABO2F - 2ND TYPE (NEW SAMPLE) STAT 3:10 AM EDT POCT GLUCOSE Routine 12/29/2024 3:01 AM EDT HEMOGLOBIN A1C Routine 10/13/2021 12:35 PM EDT Pre-transplant evaluation for end stage renal disease HEPATITIS C ANTIBODY, QUALITATIVE Routine 10/13/2021 12:35 PM EDT Need for hepatitis C screening test Pre-transplant evaluation for end stage renal disease from Last 3 Months or Most Recently Relevant to Health Maintenance Results * Outside Imaging Report Only (01/02/2025) us Scanning Interface Provider IMG XR CHEST Araceli l Result * Outside Imaging Report Only (01/02/2025) us Scanning Interface Provider IMG XR CHEST Araceli l Result * Outside Procedure (01/02/2025) us Scanning Interface Provider PROCEDURE/MINOR SURG ICAL PERFORMABLES Final Result * Outside Procedure (01/02/2025) us Scanning Interface Provider PROCEDURE/MINOR SURG ICAL PERFORMABLES Final Result * Outside Procedure (01/02/2025) us Scanning Interface Provider PROCEDURE/MINOR SURG ICAL PERFORMABLES Final Result * Outside Lab (01/02/2025) Only the most recent of2 resultswithin the time period is included. us Scanning Interface Provider LAB BLOOD ORDERABLES Final Result * (ABNORMAL) POCT Glucose (01/01/2025 7:46 AM EDT) Only the most recent of12 resultswithin the time period is included. [facility] Glucose, POCT 105(H) 70 - 100 mg/dL [facility] 01/01/2025 7:46 AM EDT 01/01/2025 7:48 AM EDT us Kiet Hidalgo MD POINT OF CARE TEST ORDERABL ES Final Result Performing Organization Address City/State/[facility] Co de Phone Number [address] [address] * (ABNORMAL) Comprehensive metabolic panel (01/01/2025 5:32 AM EDT) Only the most recent of2 resultswithin the time period is included. SODIUM 137 133 - 146 mmol/L [facility] POTASSIUM 4.2 3.3 - 5.1 mmol/L [facility] CHLORIDE 96 96 - 108 mmol/L [facility] CO2 23 21 - 35 mmol/L [facility] BUN 26(H) 6 - 19 mg/dL [facility] CREATININE 5.80(H) 0.5 - 1.5 mg/dL [facility] GLUCOSE 111(H) 70 - 99 mg/dL [facility] ALBUMIN 3.8(L) 3.9 - 4.8 g/dL [facility] TOTAL PROTEIN 8.3(H) 6.5 - 8.0 g/dL [facility] CALCIUM 9.6 8.4 - 10.3 mg/dL [facility] ALKALINE PHOSPHATASE 117 39 - 117 U/L [facility] TOTAL BILIRUBIN 0.3 0.0 - 1.2 mg/dL [facility] AST 17 0 - 37 U/L [facility] ALT 10 0 - 40 U/L [facility] GLOBULIN 4.5 1 - 4.8 g/dL [facility] EGFR 9(L) >59 mL/min/1.7 3m2 [facility] Comment:Estimated glomerular filtration rate calculated using the CKD-EPI refit equation. ANION GAP 22(H) 10 - 20 mmol/L [facility] Blood 01/01/2025 5:32 AM EDT 01/01/2025 6:41 AM EDT us Isiah Brooks MD LAB BLOOD ORDERABLES Final R esult Performing Organization Address City/State/[facility] Co de Phone Number [address] [address] * (ABNORMAL) CBC (01/01/2025 5:32 AM EDT) Only the most recent of4 resultswithin the time period is included. WBC 21.45(H) 4.00 - 11.00 K/uL [facility] RBC 3.01(L) 4.00 - 5.20 M/uL [facility] HGB 9.1(L) 12.0 - 16.0 g/dL [facility] Comment:Patient transfused. HCT 28.1(L) 36.0 - 46.0 % [facility] PLT 367 150 - 450 K/uL [facility] MCV 93.4 80.0 - 100.0 fL [facility] MCH 30.2 27.0 - 31.0 pg [facility] MCHC 32.4 32.0 - 36.0 g/dL [facility] RDW 15.5(H) 11.5 - 14.5 % [facility] MPV 11.1 8.4 - 12.0 fL [facility] NRBC 0.00 0.00 /100 WBCs [facility] ABSOLUTE NRBC 0.00 0.00 K/uL [facility] Blood 01/01/2025 5:32 AM EDT 01/01/2025 6:41 AM EDT us Isiah Brooks MD LAB BLOOD ORDERABLES Final R esult Performing Organization Address [facility] de Phone Number [address] [address] * (ABNORMAL) Phosphorus (01/01/2025 5:32 AM EDT) Only the most recent of2 resultswithin the time period is included. PHOSPHORUS 6.4(H) 2.7 - 4.5 mg/dL [facility] Blood 01/01/2025 5:32 AM EDT 01/01/2025 6:41 AM EDT Isiah Brooks MD LAB BLOOD ORDERABLES Final R esult Performing Organization Address [facility] de Phone Number [address] [address] * Magnesium (01/01/2025 5:32 AM EDT) Only the most recent of3 resultswithin the time period is included. MAGNESIUM 2.6 1.6 - 2.6 mg/dL [facility] Blood 01/01/2025 5:32 AM EDT 01/01/2025 6:41 AM EDT us Isiah Brooks MD LAB BLOOD ORDERABLES Final R esult Performing Organization Address [facility] de Phone Number [address] [address] * Transfuse RBC (12/31/2024 9:30 PM EDT) Only the most recent of4 resultswithin the time period is included. us Kiet Hidalgo MD NURSING TREATMENT ORDERABLE S - BLOOD ADMIN Final Result Performing Organization Address [facility] de Phone Number ACU[facility]PLUS * CT ABDOMEN/PELVIS WITHOUT CONTRAST (12/31/2024 4:22 PM EDT) Anatomical Region Laterality Modality Abdomen, Pelvis Computed Tomogra phy 12/31/2024 4:32 PM EDT Impressions 12/31/2024 5:53 PM EDT 1. No evidence of intra-abdominal or retroperitoneal bleeding. Extensive vascular calcification in keeping with diagnoses of diabetes, hypertension and end-stage renal disease. 3. No concerning incidental abnormality. Narrative 12/31/2024 5:[address] ABDOMEN/PELVIS WITHOUT CONTRAST Referring clinician's provided indication for this examination in Epic: * Anemia; recent drop in H/H without obvious cause in pt with ESRD, vascular disease and recent start of ASA/Plavix. Would be significant bleed, 2-3 units. ? retroperitoneal findings. Additional clinical information: Diabetic patient with hypertension and dialysis dependent renal failure. TECHNIQUE: Multidetector-row CT of the abdomen and pelvis was performed without intravenous contrast using tailored dose modulation techniques. Images were reconstructed in the axial, coronal, and sagittal planes. COMPARISON: CT abdomen and pelvis with oral contrast 11/09/2022. ABSENCE OF INTRAVENOUS CONTRAST DECREASES SENSITIVITY FOR DETECTION OF FOCAL LESIONS AND VASCULAR PATHOLOGY. FINDINGS: Lower Chest: Linear opacities toward the lung bases, left greater than right, immediately adjacent to the diaphragm; therefore, suggestive of atelectasis. Fine reticular nodular opacities evident posterior medial lower lobes, right greater the left. No effusion. Mitral anal is calcification. Tip of dialysis catheter projects into the right atrium. Liver: No discernible mass. No hepatomegaly, surface irregularity or adjacent ascites. Biliary: Nondistended gallbladder. Faint dependent opacities are not well characterized. No calcified gallstones. No biliary dilation. Spleen: Normal size and shape. No splenomegaly or focal lesions. Pancreas: Branching parenchymal calcification, possibly vascular. No mass or cystic change. No adjacent fat stranding. Adrenal Glands: Normal. No nodules. Kidneys/Ureters: No mass, definite calculi or hydronephrosis. Normal caliber ureters. Bowel: Intestines are nondilated and without mural thickening or adjacent fat stranding. Peritoneum/Retroperitoneum: No mass, ascites or focal fluid collection. No ectopic gas. Lymph Nodes: Normal. No lymphadenopathy. Pelvic Organs/Bladder: T-shaped IUD projects within mid uterus and endometrial cavity. No identifiable mass or fluid collection. Vessels: Extensive vascular calcification affecting larger and smaller vessels particularly throughout celiac axis, mesenteric vessels, iliac vessels, renal arteries, hepatic artery and uterine and ovarian arteries. Bones/Soft Tissues: No fracture or aggressive focal bony lesion. Procedure Note Danyel Hodgson MD - 12/31/2024 CT ABDOMEN/PELVIS WITHOUT CONTRAST Referring clinician's provided indication for this examination in Epic: *Anemia; recent drop in H/H without obvious cause in pt with ESRD, vasculardisease and recent start of ASA/Plavix. Would be significant bleed, 2-3units. ? retroperitoneal findings. Additional clinical information: Diabetic patient with hypertension anddialysis dependent renal failure. TECHNIQUE: Multidetector-row CT of the abdomen and pelvis was performedwithout intravenous contrast using tailored dose modulation techniques.Images were reconstructed in the axial, coronal, and sagittal planes. COMPARISON: CT abdomen and pelvis with oral contrast 11/09/2022. ABSENCE OF INTRAVENOUS CONTRAST DECREASES SENSITIVITY FOR DETECTION OFFOCAL LESIONS AND VASCULAR PATHOLOGY. FINDINGS: Lower Chest: Linear opacities toward the lung bases, left greater thanright, immediately adjacent to the diaphragm; therefore, suggestive ofatelectasis. Fine reticular nodular opacities evident posterior mediallower lobes, right greater the left. No effusion. Mitral anal iscalcification. Tip of dialysis catheter projects into the right atrium. Liver: No discernible mass. No hepatomegaly, surface irregularity oradjacent ascites. Biliary: Nondistended gallbladder. Faint dependent opacities are not wellcharacterized. No calcified gallstones. No biliary dilation. Spleen: Normal size and shape. No splenomegaly or focal lesions. Pancreas: Branching parenchymal calcification, possibly vascular. No massor cystic change. No adjacent fat stranding. Adrenal Glands: Normal. No nodules. Kidneys/Ureters: No mass, definite calculi or hydronephrosis. Normalcaliber ureters. Bowel: Intestines are nondilated and without mural thickening or adjacentfat stranding. Peritoneum/Retroperitoneum: No mass, ascites or focal fluid collection. Noectopic gas. Lymph Nodes: Normal. No lymphadenopathy. Pelvic Organs/Bladder: T-shaped IUD projects within mid uterus andendometrial cavity. No identifiable mass or fluid collection. Vessels: Extensive vascular calcification affecting larger and smallervessels particularly throughout celiac axis, mesenteric vessels, iliacvessels, renal arteries, hepatic artery and uterine and ovarianarteries. Bones/Soft Tissues: No fracture or aggressive focal bony lesion. IMPRESSION: 1. No evidence of intra-abdominal or retroperitoneal bleeding. Extensive vascular calcification in keeping with diagnoses of diabetes,hypertension and end-stage renal disease. 3. No concerning incidental abnormality. 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 Risks specifically discussed include but are not limited to medication reactions, missed lesions, bleeding, perforation, or the need for emergent surgery. Throughout the procedure, the patient's blood pressure, pulse, end-tidal CO2, and oxygensaturations were monitored continuously. The Olympus gastroscope [id number]-HQ190 #1 was introduced through the mouth, and advanced to the second partof duodenum. The upper GI endoscopy was accomplished without difficulty. The patient tolerated the procedure well. Complications: No immediate complications. Estimated blood loss:None. Findings: The examined duodenum was normal. A small hiatal hernia was present. A few localized small erosions with no stigmata of recent bleeding were found in the gastric antrum. The exam of the stomach was otherwise normal. LA Grade B (one or more mucosal breaks greater than5 mm, not extending between the tops of two mucosal folds) esophagitis with no bleeding was found. The exam of the esophagus was otherwise normal. Impression: - Normal examined duodenum. - Small hiatal hernia. - Erosive gastropathy with no stigmata of recent bleeding. - LA Grade B esophagitis with no bleeding. - No specimens collected. Recommendation: - Return patient to hospital [facility] for ongoing care. - Advance diet as tolerated. - Keep on daily PPI - Look for other sources of anemia, patient mentions vaginalbleeding DANY QUINTERO MD, 12/30/2024 9:48:09 AM This report has been signed electronically. Number of Addenda: 0 Note Initiated On: 12/30/2024 9:30 AM Procedure Code(s): --- Professional --- 59033, Esophagogastroduodenoscopy, flexible, transoral; diagnostic, including collection of specimen(s) by brushing or washing, when performed (separate procedure) --- Technical --- 44767, Esophagogastroduodenoscopy, flexible, transoral; diagnostic, including collection of specimen(s) by brushing or washing, when performed (separate procedure) Diagnosis Code(s): --- Professional --- K44.9, Diaphragmatic hernia without obstruction or gangrene K31.89, Other diseases of stomach and duodenum K20.90, Esophagitis, unspecified without bleeding D50.0, Iron deficiency anemia secondary to bloodloss (chronic) --- Technical --- K44.9, Diaphragmatic hernia without obstruction or gangrene K31.89, Other diseases of stomach and duodenum K20.90, Esophagitis, unspecified without bleeding D50.0, Iron deficiency anemia secondary to bloodloss (chronic) CPT copyright 2021 [employer]. All rights reserved. The codes documented in this report are preliminary and upon hand sander reviewmay be revised to meet current compliance requirements. Procedure Date: 12/30/2024 9:30:[address] [place] [address] us Ally Ferguson MD GI PROCEDURE ORDE RABLES Final Result * (ABNORMAL) Basic metabolic panel (12/30/2024 6:29 AM EDT) Only the most recent of3 resultswithin the time period is included. SODIUM 133 133 - 146 mmol/L [facility] CHLORIDE 96 96 - 108 mmol/L [facility] POTASSIUM 5.3(H) 3.3 - 5.1 mmol/L [facility] Comment:Specimen slightly he molyzed, result may be falsely elevated. CO2 21 21 - 35 mmol/L [facility] BUN 32(H) 6 - 19 mg/dL [facility] CREATININE 6.50(HH) 0.5 - 1.5 mg/dL [facility] Comment: Critical value: Results called to and read back by: HENNY Vázquez RN, 0800,[facility] GLUCOSE 89 70 - 99 mg/dL [facility] CALCIUM 9.4 8.4 - 10.3 mg/dL [facility] EGFR 8(L) >59 mL/min/1.7 3m2 [facility] Comment:Estimated glomerular filtration rate calculated using the CKD-EPI refit equation. ANION GAP 21(H) 10 - 20 mmol/L [facility] Blood 12/30/2024 6:29 AM EDT 12/30/2024 7:09 AM EDT us Kiet Hidalgo MD LAB BLOOD ORDERABLES Final Result [address] [address] * (ABNORMAL) Fecal immunochemical test x1 (FIT) (12/29/2024 12:33 PM EDT) Pathologist [facility] [place] Immuno Fecal Occult Positive(A ) Negative [facility] Stool (Stool) 12/29/2024 12: 33 PM EDT 12/29/2024 1:00 PM EDT us Kiet Hidalgo MD BODY FLUIDS AND STOOLS YARA CONLEY Final Result Performing Organization Address [facility]/ZIP Co de Phone Number [address] [address] * (ABNORMAL) CBC and differential (12/29/2024 9:17 AM EDT) Only the most recent of2 resultswithin the time period is included. [facility] WBC 18.82(H) 4.00 - 11.00 K/uL [facility] RBC 1.69(L) 4.00 - 5.20 M/uL [facility] HGB 5.1(LL) 12.0 - 16.0 g/dL [facility] Comment: Repeated and verified Checked sample for clots This result has been called to Peter Armendariz by [id number] on 12/29/2024 10:51:33, and has been read back. HCT 15.7(L) 36.0 - 46.0 % [facility] PLT 297 150 - 450 K/uL [facility] MCV 92.9 80.0 - 100.0 fL [facility] MCH 30.2 27.0 - 31.0 pg [facility] MCHC 32.5 32.0 - 36.0 g/dL [facility] RDW 17.0(H) 11.5 - 14.5 % [facility] MPV 11.7 8.4 - 12.0 fL [facility] NRBC 0.00 0.00 /100 WBCs [facility] ABSOLUTE NRBC 0.00 0.00 K/uL [facility] DIFF METHOD Auto [facility] NEUTS 76.6(H) 48.0 - 76.0 % [facility] LYMPHS 10.1(L) 18.0 - 41.0 % [facility] MONOS 7.6 4.0 - 11.0 % [facility] EOS 3.9 0.0 - 5.0 % [facility] BASOS 0.4 0.0 - 1.5 % [facility] Granulocytes, immature (%) 1.4(H) 0.0 - 0.9 % [facility] ABSOLUTE NEUTS 14.41(H) 1.92 - 7.60 K/uL [facility] ABSOLUTE LYMPHS 1.91 0.72 - 4.10 K/uL [facility] ABSOLUTE MONOS 1.43(H) 0.16 - 1.10 K/uL [facility] ABSOLUTE EOS 0.73(H) 0.00 - 0.50 K/uL [facility] ABSOLUTE BASOS 0.08 0.00 - 0.15 K/uL [facility] Granulocytes, immature 0.26(H) 0.00 - 0.09 K/uL [facility] Blood 12/29/2024 9:17 AM EDT 12/29/2024 9:31 AM EDT Nadir Galeana MD LAB BLOOD ORDERABLES Final Resul t Performing Organization Address City/[facility] Co de Phone Number [address] [address] * Hepatitis B surface antigen (12/29/2024 8:07 AM EDT) HBV SURFACE ANTIGEN NON-REACTI VE NON-REACTI VE [facility] Blood 12/29/2024 8:07 AM EDT 12/29/2024 9:29 AM EDT Nadir Galeana MD LAB BLOOD ORDERABLES Final Resul t Performing Organization Address [facility] Co de Phone Number [address] [address] * (ABNORMAL) Haptoglobin (12/29/2024 8:07 AM EDT) HAPTOGLOBIN 244(H) 30 - 200 mg/dL [facility] 12/29/2024 8:07 AM EDT 12/29/2024 9:29 AM EDT us Nadir Galeana MD LAB BLOOD ORDERABLES Final Resul t [address] [address] * Blood Culture, Routine (12/29/2024 6:26 AM EDT) Only the most recent of2 resultswithin the time period is included. Special Requests None 12/29/2024 5:22 AM EDT [facility] BLOOD CULTURE NO GROWTH 5 DAYS 01/03/2025 7:01 AM EDT [facility] Blood (Blood) 12/29/2024 6:2 6 AM EDT 12/29/2024 6:43 AM EDT us Ximena Kang MD MICROBIOLOGY - GENERAL ORDER LULA Final Result Performing Organization Address [facility] Co de Phone Number [address] [address] * (ABNORMAL) Troponin (12/29/2024 6:26 AM EDT) Only the most recent of2 resultswithin the time period is included. Troponin-T, HS Gen5 154(H) 0 - 9 ng/L [facility] Blood 12/29/2024 6:26 AM EDT 12/29/2024 6:47 AM EDT us Ximena Kang MD LAB BLOOD ORDERABLES Final R esult Performing Organization Address City/[facility]/ZIP Co de Phone Number [address] [address] * Lactate (12/29/2024 6:26 AM EDT) LACTATE 1.87 0.50 - 2.20 mmol/L [facility] Blood 12/29/2024 6:26 AM EDT 12/29/2024 6:35 AM EDT Ximena Kang MD LAB BLOOD ORDERABLES Final R esult Performing Organization Address City/[facility] Co de Phone Number [address] [address] * (ABNORMAL) LFTs (hepatic panel) (12/29/2024 5:13 AM EDT) Pathologist [facility] [place] ALKALINE PHOSPHATASE 108 39 - 117 U/L [facility] TOTAL BILIRUBIN 0.4 0.0 - 1.2 mg/dL [facility] DIRECT BILIRUBIN <0.1 0.0 - 0.2 mg/dL [facility] Bilirubin (Indirect) NOT CALCULATED 0 - 1.5 mg/dL [facility] AST 21 0 - 37 U/L [facility] ALT 14 0 - 40 U/L [facility] TOTAL PROTEIN 7.9 6.5 - 8.0 g/dL [facility] ALBUMIN 3.8(L) 3.9 - 4.8 g/dL [facility] GLOBULIN 4.1 1 - 4.8 g/dL [facility] A/G Ratio 0.93(L) 1.00 - 4.80 RATIO [facility] 12/29/2024 5:13 AM EDT 12/29/2024 5:51 AM EDT us Ximena Kang MD LAB BLOOD ORDERABLES Final R esult Performing Organization Address City/[facility]/ZIP Co de Phone Number [address] [address] * Type and Screen (ABO,Rh,Antibody Screen) (12/29/2024 5:13 AM EDT) ABO/Rh O Positive [facility] Antibody Screen Negative [facility] Expiration Date of Sample 01/01/2025,2 359 [facility] Unit Number [id number] 2 [facility] Component Type RBC LR [facility] Product Code N9684T38 [facility] Unit Division 00 [facility] Product Status ISSUED,[facility] Unit Number [id number] [facility] Component Type APHER RBC LR C2 [facility] Product Code [id number] [facility] Unit Division 00 [facility] Product Status ISSUED,[facility] Unit Number [id number] 7 [facility] Component Type APHER RBC LR C1 [facility] Product Code [id number] [facility] Unit Division 00 [facility] Product Status ISSUED,[facility] Unit Number [id number] 8 [facility] Component Type RBC LR [facility] Product Code [id number] [facility] Unit Division 00 [facility] Product Status ISSUED,[facility] Resulting Agency [facility] Blood 12/29/2024 5:13 AM EDT 12/29/2024 5:53 AM EDT us Ximena Kang MD BLOOD BANK TEST ORDERABLES F inal Result Performing Organization Address City/State/[facility] Co de Phone Number [address] [address] * XR FOOT 3 OR MORE VIEWS (RIGHT) (12/29/2024 3:48 AM EDT) Anatomical Region Laterality Modality Foot Right Computed Radiogr aphy 12/29/2024 4:23 AM EDT Impressions 12/29/2024 4:26 AM EDT FINDINGS/IMPRESSION: 1. No displaced fracture or malalignment of the foot. Partial ray resection of the fourth and fifth digits. 2. There is partial erosion or resection of the third proximal and middle phalanges. No soft tissue gas is identified. 3. There is a soft tissue defect lateral to the fifth metatarsal base and of the heel without bony erosion or sclerosis to suggest osteomyelitis, but radiographs are relatively limited for osteomyelitis evaluation. 4. Diffuse soft tissue swelling of the forefoot. Peripheral atherosclerosis. Narrative 12/29/2024 4:26 AM EDT XR FOOT 3 OR MORE VIEWS (RIGHT) Referring clinician's provided indication for this examination in [facility]: Infection COMPARISON: None. Procedure Note Uriel Chandra MD - 12/29/2024 XR FOOT 3 OR MORE VIEWS (RIGHT) Referring clinician's provided indication for this examination in [facility]:Infection COMPARISON: None. IMPRESSION: FINDINGS/IMPRESSION: 1. No displaced fracture or malalignment of the foot. Partial rayresection of the fourth and fifth digits. 2. There is partial erosion or resection of the third proximal and middlephalanges. No soft tissue gas is identified. 3. There is a soft tissue defect lateral to the fifth metatarsal base andof the heel without bony erosion or sclerosis to suggest osteomyelitis,but radiographs are relatively limited for osteomyelitis evaluation. 4. Diffuse soft tissue swelling of the forefoot. Peripheralatherosclerosis. Ximena Kang MD IMG XR LOWER EXTREMITY Final Result * XR Chest Portable (12/29/2024 3:48 AM EDT) Anatomical Region Laterality Modality Chest Computed Radiogr aphy 12/29/2024 4:22 AM EDT Impressions 12/29/2024 4:24 AM EDT Cardiomegaly with prominence of the pulmonary interstitium as can be seen with pulmonary edema. This can be correlated with NT-proBNP. Narrative 12/29/2024 4:24 AM EDT XR CHEST PORTABLE Referring clinician's provided indication for this examination in [facility]: Dyspnea (Shortness of Breath) COMPARISON: CT chest from November 09, 2022 FINDINGS: Devices/Tubes/Lines: Right IJ dual-lumen central venous catheter with tip projecting over the right atrium. Lungs: Diffuse prominence interstitial markings. No focal consolidation. Pleura: No pleural effusion or pneumothorax. Heart/Mediastinum: Cardiac silhouette is enlarged. Bones/Soft Tissues: No significant abnormality. Procedure Note Stew Gray MD - 09/15/2025 XR CHEST PORTABLE Referring clinician's provided indication for this examination in [facility]:Dyspnea (Shortness of Breath) COMPARISON: CT chest from November 09, 2022 FINDINGS: Devices/Tubes/Lines: Right IJ dual-lumen central venous catheter with tipprojecting over the right atrium. Lungs: Diffuse prominence interstitial markings. No focal consolidation. Pleura: No pleural effusion or pneumothorax. Heart/Mediastinum: Cardiac silhouette is enlarged. Bones/Soft Tissues: No significant abnormality. IMPRESSION: Cardiomegaly with prominence of the pulmonary interstitium as can be seenwith pulmonary edema. This can be correlated with NT-proBNP. us Ximena Kang MD IMG XR CHEST Final Result * ECG 12-LEAD (12/29/2024 3:14 AM EDT) Ventricular Rate EKG/MIN 100 BPM [facility] Atrial Rate 100 BPM [facility] RI Interval 122 ms [facility] QRS Duration 76 ms [facility] QT Interval 368 ms [facility] QTC Interval 474 ms [facility] P Mccarley 54 degrees [facility] R Wave M[place]arley -2 degrees [facility] T Wave M[place]ar[place] 63 degrees [facility] 12/29/2024 3:14 AM EDT 12/29/2024 8:44 AM EDT Narrative [facility] - 12/29/2024 8:44 AM EDT Normal sinus rhythm Normal ECG No previous ECGs available Confirmed by José Tian ([id number]) on 12/29/2024 8:44:23 AM us Ximena Kang MD ECG ORDERABLES Final Result [facility] * COVID Pandemic Respiratory Viral Order (PRO) (12/29/2024 3:14 AM EDT) Test Ordered Rapid COVID has been ordered [facility] Specimen Source/Description NASAL [facility] SARS-CoV 2 (COVID-19) PCR Not Detected Not Detected [facility] Comment: SARS-CoV-2 not detected Negative results do not preclude SARS-CoV-2 infection and should not be used as the sole basis for patient management decisions. Negative results must be combined with clinical observations, patient history, and epidemiological information. Other (Nasopharyngeal swab) 12/29/2024 3:14 AM EDT 12/29/2024 3:29 AM EDT Ximena Kang MD BODY FLUIDS AND STOOLS ORDER LULA Final Result Performing Organization Address [facility] Hospital/[facility] Co de Phone Number [address] [address] * HCG, serum qualitative (12/29/2024 3:12 AM EDT) HCG, QUALITATIVE Negative Negative IU/L [facility] Blood 12/29/2024 3:12 AM EDT 12/29/2024 3:30 AM EDT Result [facility] Ximena Kang MD LAB BLOOD ORDERABLES Final R esult Performing Organization Address [facility] de Phone Number [address] [address] * (ABNORMAL) PT-INR (12/29/2024 3:12 AM EDT) PT 13.9(H) 10.2 - 12.9 sec [facility] INR 1.1 0.9 - 1.1 [facility] Comment:Therapeutic range fo r oral Vitamin K antagonists: 2.0-3.5 Blood 12/29/2024 3:12 AM EDT 12/29/2024 3:30 AM EDT Ximena Kang MD LAB BLOOD ORDERABLES Final R esult Performing Organization Address [facility] Co de Phone Number [address] [address] * (ABNORMAL) C-Reactive Protein (12/29/2024 3:12 AM EDT) C REACTIVE PROTEIN 45.9(H) 0.0 - 4.0 mg/L [facility] Blood 12/29/2024 3:12 AM EDT 12/29/2024 3:30 AM EDT Ximena Kang MD LAB BLOOD ORDERABLES Final R esult Performing Organization Address [facility]/ZIP Co de Phone Number [address] [address] * (ABNORMAL) NT-proBNP (12/29/2024 3:12 AM EDT) NT-PROBNP 12,850(H) 0 - 125 pg/mL [facility] Blood 12/29/2024 3:12 AM EDT 12/29/2024 3:30 AM EDT Ximena Kang MD LAB BLOOD ORDERABLES Final R esult Performing Organization Address [facility]/ZIP Co de Phone Number [address] [address] * 2nd Type (New Sample) (12/29/2024 3:10 AM EDT) ABO/Rh O Positive [facility] Resulting Agency [facility] 12/29/2024 3:10 AM EDT 12/29/2024 6:07 AM EDT Ximena Kang MD BLOOD BANK TEST ORDERABLES F inal Result Performing Organization Address City/[facility] Co de Phone Number [address] [address] from Last 3 Months Additional Health Concerns Infection Onset Date Last Indicated CoV-Risk 12/29/2024 12/29/2024 Insurance MEDICARE PART A & [place] [facility] [place] [facility] [place] [id number] MEDICARE PART A & [place] [id number] MEDICARE PART A & [place] [phone] MEDICARE PART A & [facility] Advance Directives For more information, please contact: [phone] (9AM - 5PM [facility], Sunday-Sunday) * Full Code (Latest Code Status on File) Date Activated Date Inactivated Comments 12/30/2024 9:55 AM Question Answer Comments Code Status Confirmed With: Patient 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 It is not the complete legal health record.[facility]
--- OUTSIDE RECORDS SUMMARY | 2025-01-07 17:55 | XMS_ITS | Encounter Summary ---
Author Organization [employer] Address [address] [facility] 7t [place] [address] Care Team Providers Care Structural Engineering Technician Name Role Phone Ally Ferreira MD Primary Care Pro vider Reason for Visit * Reason Comments Med Refill Encounter Details Date Type Department Care Team ([facility] Contact Info) Description 09/02/2022 Refill [facility] [address] [place] [address] Blair Lopez AGNP Hypertension, unspecified [...] Upcoming Encounters Date Type Department Care Team ([facility] Contact Info) Description 01/29/2025 1:45 PM EDT Office Visit [facility] [address] [place] [address] Ally Ferreira MD [address] [place] [address] 06/02/2025 1:00 PM EST Office Visit [facility] OPTOMETRY [address] [place], [place] [phone] Abelardo, Megan, OD [address] [place], [place] [phone] documented as of this encounter Visit Diagnoses Diagnosis Hypertension, unspecified type documented in this encounter Additional Health Concerns Assessment Noted Time PHQ-9 Depression Total Score: 0 08/11/19 23 9:11 AM EDT documented as of this encounter Care Teams Structural Engineering Technician Relationship Specialty Start Date End Date Ally Ferreira MD [address] [place], [place] [phone] PCP - General Internal Medicine [facility] documented as of this encounter
--- OUTSIDE RECORDS SUMMARY | 2025-01-07 17:55 | XMS_ITS | Encounter Summary ---
Author Organization [facility] Address [address] [place] [address] Phone Care Team Providers Care Dispute Specialist Name Role Phone Ally Ferreira MD Primary Care Pro vider Encounter Details Date Type Department Care Team (Late st Contact Info) Description 12/31/2024 Procedure Pass [facility], Ct Scan - [facility] [address] [place] [address] Social History Tobacco Use Types Packs/Day Years [...] have you moved in the past 12 mon ths? One time 12/29/2024 Paying for Meds Answer [...] filedocumented in this encounter Additional Health Concerns Infection Onset Date Last Indicated Resolved Time CoV-Risk 12/29/2024 12/29/2024 documented as of this encounter Care Teams Dispute Specialist Relationship Specialty Start Date End Date Ally Ferreira MD [address] [place] [address] PCP - General Internal Medicine 12/29/24 documented as of this encounter Additional Source Comments The information contained in this document represents components of the legal health record. It is not the complete legal health record.[facility]
--- OUTSIDE RECORDS SUMMARY | 2025-01-07 17:55 | XMS_ITS | Encounter Summary ---
Author Organization [facility] Address [address] [place] [address] Phone Care Team Providers Care Clinical Data Associate Name Role Phone Azucena Bradley MD Primary Care Provider [phone] Reason for Visit * Reason Comments Med Refill Encounter Details Date Type Department Care Team (Late st Contact Info) Description 06/14/2021 Refill [facility] [address] [place] [phone] Forrest Adamson MD Social History [...] on filedocumented in this encounter Care Teams Clinical Data Associate Relationship Specialty Start Date End Date Azucena Bradley MD [address] [place] [address], [facility] [address] [place] [address] PCP - General Internal Medicine 01/22/24 documented as of this encounter
--- OUTSIDE RECORDS SUMMARY | 2025-01-07 17:55 | XMS_ITS | Encounter Summary ---
Author Organization [employer] Address [address] 7[address] [place] [address] Care Team Providers Care Commercial Pest Control Representative Name Role Phone Viri Wall Primary Care Provider [phone] Ally Ferreira MD Primary Care Pro vider Reason for Visit * Reason Comments Med Refill Encounter Details Date Type Department Care Team (Late st Contact Info) Description 06/06/2022 Refill [facility] [address] [place], [place] [phone] Name, MD Dain [address] [place], [place] [phone] Primary hypertension (Primary Dx) Social History Tobacco [...] 1:45 PM EDT Office Visit [facility] [address] [place] [address] Ally Ferreira MD [address] [place] [address] 06/02/2025 1:00 PM EST Office Visit [facility] OPTOMETRY [address] [place] [address] Antoinette Zhou, OD [address] [place] [address] documented as of this encounter Visit Diagnoses Diagnosis Primary hypertension- Primary Unspecified essential hypertension documented in this encounter Care Teams Commercial Pest Control Representative Relationship Specialty Start Date End Date Viri Wall FNP [address] [place] [address] PCP - General Family Medicine 06/06/22 07/24/22 Ally Ferreira MD [address] [place] [address] PCP - General Internal Medicine 07/25/22 [facility] documented as of this encounter
--- OUTSIDE RECORDS SUMMARY | 2025-01-07 17:55 | XMS_ITS | Encounter Summary ---
Author Organization [employer] Address [address] [place] [address] Care Team Providers Care Life Sciences Teacher Name Role Phone Ally Ferreira MD Primary Care Pro vider Reason for Visit * Reason Comments Med Refill Encounter Details Date Type Department Care Team ([facility] st Contact Info) Description 05/01/2023 Refill [facility] [address] [place], [place] [phone] Jen Lozoya, VIVIAN [address] [place] [address] Social History Tobacco Use Types Packs/Day Years [...] Office Visit [facility] MEDICINE [address] [place] [address] Ally Ferreira MD [address] [place] [address] 06/02/2025 1:00 PM EST Office Visit [facility] OPTOMETRY [address] [place] [address] Abelardo, Antoinette, OD [address] [place] [address] documented as of this encounter Visit Diagnoses Not on filedocumented in this encounter Additional Health Concerns Assessment Noted Time PHQ-9 Depression Total Score: 0 08/11/19 23 9:11 AM EDT documented as of this encounter Care Teams Life Sciences Teacher Relationship Specialty Start Date End Date Ally Ferreira MD [address] [place] [address] PCP - General Internal Medicine 07/25/22 [facility] 12/25/24 documented as of this encounter
--- OUTSIDE RECORDS SUMMARY | 2025-01-07 17:55 | XMS_ITS | Encounter Summary ---
Author Organization [facility] Address [address] [place] [address] Phone Care Team Providers Care Rn Endoscopy Name Role Phone Azucena Bradley MD Primary Care Provider Reason for Visit * Reason Comments Med Refill Encounter Details Date Type Department Care Team (Late st Contact Info) Description 12/24/2021 Refill [facility] [address] [place] [phone] Forrest Adamson MD Social History [...] on filedocumented in this encounter Care Teams Rn Endoscopy Relationship Specialty Start Date End Date Azucena Bradley MD [address] [place] [address], [facility] 3 [place] [address] PCP - General Internal Medicine 01/22/24 documented as of this encounter
--- OUTSIDE RECORDS SUMMARY | 2025-01-07 17:55 | XMS_ITS | Encounter Summary ---
Author Organization [facility] Address [email or web address] [place] [address] Phone Care Team Providers Care Entry Level Chemist Name Role Phone Ally Ferreira MD Primary Care Pro vider Reason for Visit * Reason Comments Med Change Request Encounter Details Date Type Department Care Team (Late st Contact Info) Description 01/01/2025 Refill [facility] [address] [place] [address] Kiet Hidalgo MD [address] [place] [address] Med Change Request Social History Tobacco Use Types Packs/Day Years [...] housing situation today? I have hermann miramontes 12/29/2024 How many times have you moved [...] documented as of this encounter Care Teams Entry Level Chemist Relationship Specialty Start Date End Date Ally Ferreira MD [address] [place] [address] PCP - General Internal Medicine 12/29/24 documented as of this encounter Additional Source Comments The information contained in this document represents components of the legal health record. It is not the complete legal health record.[facility]
--- OUTSIDE RECORDS SUMMARY | 2025-01-07 17:55 | XMS_ITS | Encounter Summary ---
Author Organization [facility] Address [address] [place] [address] Phone Care Team Providers Care Splicing Machine Operator Name Role Phone Pcp, Unknown Primary Care Provider Ally Hernandez MD Primary Care Pro vider Encounter Details Date Type Department Care Team (Late st Contact Info) Description 03/07/2022 Procedure Pass [facility] [address] [facility], 2nd [place] [address] Social History Tobacco Use Types Packs/Day Years [...] documented as of this encounter Care Teams Splicing Machine Operator Relationship Specialty Start Date End Date Pcp, Unknown PCP - General 07/29/21 12/28/24 Ally Ferreira MD [address] [place] [address] PCP - General Internal Medicine 12/29/24 documented as of this encounter Additional Source Comments The information contained in this document represents components of the legal health record. It is not the complete legal health record.[facility]
--- OUTSIDE RECORDS SUMMARY | 2025-01-07 17:55 | XMS_ITS | Encounter Summary ---
Demographics Address [address] [place] [address] Mobile Phone Home Phone Preferred Language Maltese Marital Status Jain Affiliation Unknown Race White Ethnic Group Unknown Author Organization [facility] Address [address] [place] [address] Care Team Providers Care Teenage Babysitter Name Role Phone Ally Ferreira Primary Care Provider [phone] Encounter Details Date Type Department Care Team (Late st Contact Info) Description 01/11/2021 Orders Only [facility] Nuclear Medicine [address] [place] [address] Shiva Duran MD [address] [place] [address] Social History Tobacco Use Types Packs/Day Years [...] Info) Description 02/05/2025 11:00 AM EDT Follow-Up [facility] Renal Transplant [address] [place] [address] Vinicio Harris MD [address] [place] [address] 02/05/2025 11:45 AM EDT Follow-Up [facility] Renal Transplant [address] [place] [address] 02/05/2025 12:30 PM EDT Social Work [facility] Renal Transplant [address] [place] [address] Michelet Swartz documented as of this encounter Visit Diagnoses Not on filedocumented in this encounter Care Teams Teenage Babysitter Relationship Specialty Start Date End Date Ally Ferreira [address] [place] [phone] PCP - General 02/04/24 documented as of this encounter
--- OUTSIDE RECORDS SUMMARY | 2025-01-07 17:55 | XMS_ITS | Encounter Summary ---
Author Organization [facility] Address [address] [place] [address] Phone Care Team Providers Care Engineering Group Leader Name Role Phone Ally Ferreira MD Primary Care Pro vider Encounter Details Date Type Department Care Team (Late st Contact Info) Description 12/30/2024 Procedure Pass [facility] Endoscopy Admitting Dept Virtual Department [address] [place] [address] Social History Tobacco Use Types Packs/Day Years [...] documented as of this encounter Care Teams Engineering Group Leader Relationship Specialty Start Date End Date Ally Ferreira MD [address] [place] [address] PCP - General Internal Medicine 12/29/24 documented as of this encounter Additional Source Comments The information contained in this document represents components of the legal health record. It is not the complete legal health record.[facility]
--- OUTSIDE RECORDS SUMMARY | 2025-01-07 17:55 | XMS_ITS | Clinical Summary ---
Author Organization [facility] Address [address] [place] [phone] Phone Care Team Providers Care Site Medical Director Name Role Phone Azucena Bradley MD Primary Care Provider + [phone] Medications losartan (COZAAR) 50 MG tablet TAKE [...] Encounters Date Type Department Care Team Description 12/01/2024 Treatment [facility] [address] [phone] Atul Burton MD End stage renal disease; Dependence on renal dialysis 11/24/2024 Treatment [facility] [address] [phone] Atul Burton MD End stage renal disease; Dependence on renal dialysis 11/19/2024 Orders Only [facility] [address] [place] [phone] Atul Burton MD 11/17/2024 Treatment [facility] [address] [phone] Atul Burton MD End stage renal disease; Dependence on renal dialysis 11/14/2024 Treatment [facility] [address] [phone] Atul Burton MD End stage renal disease; Dependence on renal dialysis 11/14/2024 Treatment [facility] [address] [facility] [address] [place] [address] Atul Burton MD End stage renal disease; Dependence on renal dialysis 11/10/2024 Treatment [facility] [address] [phone] Atul Burton MD End stage renal disease; Dependence on renal dialysis 10/29/2024 Treatment [facility] [address] [phone] Atul Burton MD End stage renal disease; Dependence on renal dialysis 10/20/2024 Treatment [facility] [address] [phone] Atul Burton MD End stage renal disease; Dependence on renal dialysis 10/15/2024 Treatment [facility] [address] [phone] Atul Burton MD End stage renal disease; Dependence on renal dialysis from Last 3 Months Family History Medical [...] Visual Foot Exam 05/17/2020 Influenza Vaccine (#1) 2024 3, 01/20/2015, 01/30/2013, Additional history exists Diabetes: Hemoglobin A1C 01/15/2025 025, 07/16/2024, 04/23/2024, Additional history exists Pneumococcal Vaccine: 50+ Years Discontinued 04/26/2023, 08/21/2018, 08/02/2018, Additional history exists Pneumococcal Vaccine: Peds ( 0 to 5 Years) and At-Risk Patients (6 to 49 Years) Completed 04/26/2023, 08/21/2018, 08/02/2018, Additional history exists Procedures Procedure Name Priority Date/Time Associated Diagnosis Comments FERRITIN Routine 01/02/2025 3:00 AM EDT TRANSFERRIN SATURATION Routine 3:00 AM EDT PROTEIN, TOTAL, SERUM Routine 01/02/2025 3:00 AM EDT ELECTROLYTE PANEL Routine 01/02/2025 3:0 0 AM EDT LIH (HC) Routine 01/02/2025 3:00 AM EDT MAGNESIUM Routine 01/02/2025 3:00 AM EDT GLUCOSE, RANDOM Routine 01/02/2025 3:00 AM EDT LACTATE DEHYDROGENASE Routine 01/02/2025 3:00 AM EDT AST Routine 01/02/2025 3:00 AM EDT ALT Routine 01/02/2025 3:00 AM EDT ALKALINE PHOSPHATASE Routine 01/02/2025 3:00 AM EDT BILIRUBIN, TOTAL Routine 01/02/2025 3:00 AM EDT CREATININE, SERUM Routine 01/02/2025 3:0 0 AM EDT CALCIUM PHOSPHORUS PRODUCT, ADJUSTED (HC) Routine 01/02/2025 3:00 AM EDT HEMOGLOBIN Routine 01/02/2025 3:00 AM EDT UNSPUN TUBE (HC) Routine 12/26/2024 3:00 AM EDT KT/V NATURAL LOG, URR (HC) Routine 12/26/2024 3:00 AM EDT CBC AND DIFFERENTIAL Routine 12/26/2024 3:00 AM EDT HEMOGLOBIN Routine 12/03/2024 3:00 AM EDT CBC AND DIFFERENTIAL Routine 11/21/2024 3:00 AM EDT TRANSFERRIN SATURATION Routine 3:00 AM EDT PROTEIN, TOTAL, SERUM Routine 11/19/2024 3:00 AM EDT ELECTROLYTE PANEL Routine 11/19/2024 3:0 0 AM EDT LIH (HC) Routine 11/19/2024 3:00 AM EDT MAGNESIUM Routine 11/19/2024 3:00 AM EDT LACTATE DEHYDROGENASE Routine 11/19/2024 3:00 AM EDT GLUCOSE, RANDOM Routine 11/19/2024 3:00 AM EDT CREATININE, SERUM Routine 11/19/2024 3:0 0 AM EDT BUN/CREATININE RATIO Routine 11/19/2024 3:00 AM EDT BILIRUBIN, TOTAL Routine 11/19/2024 3:00 AM EDT AST Routine 11/19/2024 3:00 AM EDT ALKALINE PHOSPHATASE Routine 11/19/2024 3:00 AM EDT CALCIUM PHOSPHORUS PRODUCT, ADJUSTED (HC) Routine 11/19/2024 3:00 AM EDT ALT Routine 11/19/2024 3:00 AM EDT PTH, INTACT Routine 11/19/2024 3:00 AM EDT FERRITIN Routine 11/19/2024 3:00 AM EDT KT/V NATURAL LOG, URR (HC) Routine 11/19/2024 3:00 AM EDT CBC AND DIFFERENTIAL Routine 11/19/2024 3:00 AM EDT CONFIRMATION TEST HCV Routine 11/07/2024 3:00 AM EDT HEPATITIS C ABS W/REFLEX RNA DETECTR Routine 11/07/2024 3:00 AM EDT HEMOGLOBIN Routine 11/05/2024 3:00 AM EDT HEMOGLOBIN Routine 10/31/2024 3:00 AM EDT HEMOGLOBIN Routine 10/29/2024 3:00 AM EDT LIH (HC) Routine 10/29/2024 3:00 AM EDT CALCIUM PHOSPHORUS PRODUCT, ADJUSTED (HC) Routine 10/29/2024 3:00 AM EDT MAGNESIUM Routine 10/15/2024 3:00 AM EDT TRANSFERRIN SATURATION Routine 3:00 AM EDT PROTEIN, TOTAL, SERUM Routine 10/15/2024 3:00 AM EDT ELECTROLYTE PANEL Routine 10/15/2024 3:0 0 AM EDT LIH (HC) Routine 10/15/2024 3:00 AM EDT LACTATE DEHYDROGENASE Routine 10/15/2024 3:00 AM EDT LIPID PANEL Routine 10/15/2024 3:00 AM EDT CREATININE, SERUM Routine 10/15/2024 3:0 0 AM EDT GLUCOSE, RANDOM Routine 10/15/2024 3:00 AM EDT BUN/CREATININE RATIO Routine 10/15/2024 3:00 AM EDT BILIRUBIN, TOTAL Routine 10/15/2024 3:00 AM EDT ALKALINE PHOSPHATASE Routine 10/15/2024 3:00 AM EDT AST Routine 10/15/2024 3:00 AM EDT ALT Routine 10/15/2024 3:00 AM EDT CALCIUM PHOSPHORUS PRODUCT, ADJUSTED (HC) Routine 10/15/2024 3:00 AM EDT PTH, INTACT Routine 10/15/2024 3:00 AM EDT FERRITIN Routine 10/15/2024 3:00 AM EDT HEMOGLOBIN A1C Routine 10/15/2024 3:00 AM EDT CBC AND DIFFERENTIAL Routine 10/15/2024 3:00 AM EDT KT/V NATURAL LOG, URR (HC) Routine 10/15/2024 3:00 AM EDT from Last 3 Months Results * LIH (01/02/2025 3:00 AM EDT) Only the most recent of4 resultswithin the time period is included. Lipemia Normal Normal [facility] Icterus Normal Normal [facility] Hemolysis Normal Normal [facility] 01/02/2025 3:00 AM EDT 01/03/2025 12:54 PM EDT us Atul Burton MD LAB [id number] SOLICITED RESULTS Final Result [facility] [address] [place] [address] * (ABNORMAL) Calcium Phosphorus Product, Adjusted (01/02/2025 3:00 AM EDT) Only the most recent of4 resultswithin the time period is included. Albumin 3.9 3.6 - 5.4 g/dL [facility] Calcium 9.3 8.6 - 10.3 mg/dL [facility] Phosphorus, Serum 6.8(H) 2.5 - 5.0 mg/dL [facility] Ca*PO4 63.2(A) <55.0 mg2/dL2 [facility] Calcium, Adjusted Total 9.4 8.6 - 10.3 mg/dL [facility] CA*PO4 CORRCTD 63.9(A) <55.0 mg2/dL2 [facility] 01/02/2025 3:00 AM EDT 01/03/2025 12:54 PM EDT Atul Burton MD LAB [id number] SOLICITED RESULTS Final Result Performing Organization Address [facility] de Phone Number [facility] [address] [place] [address] * (ABNORMAL) TSAT (01/02/2025 3:00 AM EDT) Only the most recent of3 resultswithin the time period is included. Iron 28(L) 50 - 170 ug/dL [facility] Transferrin 96(L) 250 - 380 mg/dL [facility] TIBC 134(L) 211 - 406 ug/dL [facility] Iron Saturation (TSat) 21(L) 22 - 52 % [facility] 01/02/2025 3:0 0 AM EDT 01/03/2025 12:54 PM EDT Atul Burton MD LAB BLOOD ORDERABLES Final Re sult Performing Organization Address [facility] de Phone Number [facility] [address] [place] [address] * (ABNORMAL) Hemoglobin (01/02/2025 3:00 AM EDT) Only the most recent of5 resultswithin the time period is included. Hgb 8.9(L) 11.2 - 15.7 g/dL [facility] Hemoglobin x 3 26.7(L) 33.6 - 47.1 g/dL [facility] 01/02/2025 3:00 AM EDT 01/03/2025 12:54 PM EDT Atul uBrton MD LAB BLOOD ORDERABLES Final Re sult Performing Organization Address [facility] de Phone Number [facility] [address] [place] [address] * ALT (01/02/2025 3:00 AM EDT) Only the most recent of3 resultswithin the time period is included. ALT (SGPT) 11 10 - 49 U/L [facility] 01/02/2025 3:00 AM EDT 01/03/2025 12:54 PM EDT Atul Burton MD LAB BLOOD ORDERABLES Final Re sult Performing Organization Address [facility] Co de Phone Number [facility] [address] [place] [address] * AST (01/02/2025 3:00 AM EDT) Only the most recent of3 resultswithin the time period is included. AST (SGOT) 20 <34 U/L [facility] 01/02/2025 3:00 AM EDT 01/03/2025 12:54 PM EDT Atul Burton MD LAB BLOOD ORDERABLES Final Re sult Performing Organization Address [facility] de Phone Number [facility] [address] [place] [address] * Protein, total (01/02/2025 3:00 AM EDT) Only the most recent of3 resultswithin the time period is included. Total Protein 7.4 6.4 - 8.9 g/dL [facility] 01/02/2025 3:00 AM EDT 01/03/2025 12:54 PM EDT Atul Burton MD LAB BLOOD ORDERABLES Final Re sult Performing Organization Address [facility] de Phone Number [facility] [address] [place] [address] * (ABNORMAL) Alkaline phosphatase (01/02/2025 3:00 AM EDT) Only the most recent of3 resultswithin the time period is included. Alkaline Phosphatase 126(H) 46 - 116 U/L [facility] 01/02/2025 3:00 AM EDT 01/03/2025 12:54 PM EDT Atul Burton MD LAB BLOOD ORDERABLES Final Re sult Performing Organization Address [facility] Co de Phone Number [facility] [address] [place] [address] * Magnesium (01/02/2025 3:00 AM EDT) Only the most recent of3 resultswithin the time period is included. Magnesium 2.4 1.9 - 2.7 mg/dL [facility] 01/02/2025 3:00 AM EDT 01/03/2025 12:54 PM EDT Atul Burton MD LAB BLOOD ORDERABLES Final Re sult Performing Organization Address [facility] de Phone Number [facility] [address] [place] [address] * (ABNORMAL) Lactate dehydrogenase (01/02/2025 3:00 AM EDT) Only the most recent of3 resultswithin the time period is included. LDH 393(H) 120 - 246 U/L [facility] 01/02/2025 3:00 AM EDT 01/03/2025 12:54 PM EDT Atul Burton MD LAB BLOOD ORDERABLES Final Re sult Performing Organization Address [facility] de Phone Number [facility] [address] [place] [address] * (ABNORMAL) Glucose, random (01/02/2025 3:00 AM EDT) Only the most recent of3 resultswithin the time period is included. Glucose 216(H) 70 - 99 mg/dL [facility] Comment: ADA guidelines outline the following fasting glucose ranges: Normal: <100 Prediabetes: 100-125 Diabetes: >125 01/02/2025 3:00 AM EDT 01/03/2025 12:54 PM EDT us Atul Burton MD LAB BLOOD ORDERABLES Final Re sult Performing Organization Address [facility] Co de Phone Number [facility] [address] [place] [address] * (ABNORMAL) Ferritin (01/02/2025 3:00 AM EDT) Only the most recent of3 resultswithin the time period is included. Ferritin 1,416(H) 10 - 291 ng/mL [facility] 01/02/2025 3:00 AM EDT 01/03/2025 12:54 PM EDT Atul Burton MD LAB BLOOD ORDERABLES Final Re sult Performing Organization Address [facility] de Phone Number [facility] [address] [place] [address] * (ABNORMAL) Creatinine, serum (01/02/2025 3:00 AM EDT) Only the most recent of3 resultswithin the time period is included. Creatinine 8.08(H) 0.55 - 1.02 mg/dL [facility] 01/02/2025 3:00 AM EDT 01/03/2025 12:54 PM EDT Atul Burton MD LAB BLOOD ORDERABLES Final Re sult Performing Organization Address [facility] de Phone Number [facility] [address] [place] [address] * (ABNORMAL) Bilirubin, total (01/02/2025 3:00 AM EDT) Only the most recent of3 resultswithin the time period is included. Total Bilirubin <0.2(L) 0.3 - 1.2 mg/dL [facility] 01/02/2025 3:00 AM EDT 01/03/2025 12:54 PM EDT Atul Burton MD LAB BLOOD ORDERABLES Final Re sult Performing Organization Address [facility] de Phone Number [facility] [address] [place] [address] * (ABNORMAL) Electrolyte panel (01/02/2025 3:00 AM EDT) Only the most recent of3 resultswithin the time period is included. Sodium 134(L) 136 - 145 mEq/L [facility] Potassium 4.0 3.4 - 5.0 mEq/L [facility] Chloride 97(L) 98 - 107 mEq/L [facility] Bicarbonate (CO2) 22 21 - 31 mEq/L [facility] Anion Gap 15(H) 3 - 14 mEq/L [facility] 01/02/2025 3:00 AM EDT 01/03/2025 12:54 PM EDT Atul Burton MD LAB BLOOD ORDERABLES Final Re sult Performing Organization Address [facility] de Phone Number [facility] [address] [place] [address] * Unspun Tube (12/26/2024 3:00 AM EDT) Pathologist [facility] Unspun Tube [place] [facility] Comment:Received uncentrifug ed specimen. Unable to perform testing. 12/26/2024 3:00 AM EDT Atul Burton MD LAB [id number] SOLICITED RESULTS Final Result Performing Organization Address [facility] de Phone Number [facility] [address] [place] [address] * Kt/V Natural Log, URR (12/26/2024 3:00 AM EDT) Only the most recent of3 resultswithin the time period is included. Treatment Time 183 min [facility] Pre-Weight, lb 69.1 kg [facility] Post-Weight, lb 68.6 kg [facility] Ultrafiltration Rate 2 <=13 mL/kg/hr [facility] Comment: Recommend achieving Ultrafiltration Rate (UFR) <=10 mL/kg/hr References: Naomy BRITO et al. Kidney Int. 2010; 79(2):250-257 BUN Test Canceled mg/dL [facility] BUN Post Dialysis 11 7 - 25 mg/dL [facility] 12/26/2024 3:00 AM EDT 12/27/2024 1:43 PM EDT us Atul Burton MD LAB HISTORICAL-CONVE RSIONS-UNSOLICITED RESULTS Edited Result - Final [facility] [address] [place] [address] * (ABNORMAL) CBC and Differential (12/26/2024 3:00 AM EDT) Only the most recent of4 resultswithin the time period is included. DIFFERENTIAL MANUAL, 2 Not Indicated [facility] White Blood Cells 21.2(HH) 4.0 - 10.0 K/uL [facility] Comment:Verified by repeat a nalysis RBC 2.17(L) 3.93 - 5.22 M/uL [facility] Hgb 6.5(L) 11.2 - 15.7 g/dL [facility] Hemoglobin x 3 19.5(L) 33.6 - 47.1 g/dL [facility] Hematocrit 21.0(L) 34.1 - 44.9 % [facility] MCV 96.8(H) 79.4 - 94.8 fL [facility] MCH 30.0 25.6 - 32.2 pg [facility] MCHC 31.0(L) 32.2 - 35.5 g/dL [facility] RDW 16.7(H) 11.7 - 14.4 % [facility] Platelets 419(H) 182 - 369 K/uL [facility] MPV 12.2 9.2 - 12.8 fL [facility] Neutrophils Relative 73.7(H) 34.0 - 71.1 % [facility] Lymphocytes Relative 10.4(L) 19.3 - 51.7 % [facility] Monocytes 7.1 4.7 - 12.5 % [facility] Eosinophils Relative 5.6 0.7 - 5.8 % [facility] Basophils Relative 0.8 0.1 - 1.2 % [facility] Immature Granulocytes 2.4(H) 0.0 - 1.0 % [facility] 12/26/2024 3:00 AM EDT 12/27/2024 1:53 PM EDT Atul Burton MD LAB BLOOD ORDERABLES Final Re sult Performing Organization Address [facility] de Phone Number [facility] [address] [place] [address] * BUN/CREATININE RATIO (11/19/2024 3:00 AM EDT) Only the most recent of2 resultswithin the time period is included. BUN/Creatinine Ratio 4.3 <=23.0 [facility] 11/19/2024 3:00 AM EDT 11/20/2024 12:21 PM EDT Atul Burton MD LAB [id number] SOLICITED RESULTS Final Result Performing Organization Address [facility] de Phone Number [facility] [address] [place] [address] * PTH, Intact (11/19/2024 3:00 AM EDT) Only the most recent of2 resultswithin the time period is included. PTH, Intact 615 160 - 721 pg/mL [facility] Comment: Suggested (KDIGO) ESRD maintenance range is two to nine times the upper normal limit (80.1 pg/mL) for the laboratory. 11/19/2024 3:00 AM EDT 11/20/2024 12:21 PM EDT Atul Burton MD LAB BLOOD ORDERABLES Final Re sult Performing Organization Address [facility] Co de Phone Number [facility] [address] [place] [address] * Confirmation Test HCV (11/07/2024 3:00 AM EDT) Hep C Ab Confirmation Not needed [facility] 11/07/2024 3:00 AM EDT 11/08/2024 1:05 PM EDT Atul Burton MD LAB BLOOD ORDERABLES Final Re sult Performing Organization Address [facility] de Phone Number [facility] [address] [place] [address] * HEPATITIS C ABS W/REFLEX RNA DETECTR (11/07/2024 3:00 AM EDT) Hep C Virus Ab Non-Reacti ve Non-Reacti ve [facility] 11/07/2024 3:00 AM EDT 11/08/2024 1:00 PM EDT Atul Burton MD LAB [id number] SOLICITED RESULTS Final Result Performing Organization Address [facility] de Phone Number [facility] [address] [place] [address] * (ABNORMAL) Hemoglobin A1c (10/15/2024 3:00 AM EDT) Hemoglobin A1C 8.0(H) <5.7 % [facility] Comment: Methodology: Enzymatic Normal: <5.7% Prediabetes: 5.7-6.4% Diabetes: >6.4% Diabetic Glucose Control Evaluation: Therapeutic action suggested at >8.0% ADA recommends a glycemic goal of <7.0% 10/15/2024 3:00 AM EDT 10/16/2024 12:12 PM EDT Atul Burton MD LAB BLOOD ORDERABLES Final Re sult Performing Organization Address [facility] de Phone Number [facility] [address] [place] [address] * (ABNORMAL) Lipid panel (10/15/2024 3:00 AM EDT) Cholesterol 153 mg/dL [facility] Comment: Optimal: <200 Borderline: 200-239 High Risk: >239 Triglycerides 204(H) mg/dL [facility] Comment: Optimal: <150 Borderline: 150-200 High Risk: >200 HDL 15(L) mg/dL [facility] Comment: Optimal: >59 Borderline: 40-59 High Risk: <40 LDL-Calc 97 mg/dL [facility] Comment: Optimal: <100 Borderline: 100-159 High Risk: >159 VLDL Cholesterol Moody 41(H) mg/dL [facility] Comment: Optimal: <30 Borderline: 30-40 High Risk: >40 Chol/HDL Ratio 10.2(H) [facility] Comment: Optimal: <3.3 High Risk: >6.2 10/15/2024 3:00 AM EDT 10/16/2024 12:12 PM EDT us Atul Burton MD LAB BLOOD ORDERABLES Final Re sult [facility] [address] [place] [address] from Last 3 Months Insurance Medicaid [place] Medicare Medicaid [place] Medicare Medicare Medicaid [place] Care Teams Site Medical Director Relationship Specialty Start Date End Date Azucena Bradley MD [address] [place] [address], Floor [address] [place] [address] PCP - General Internal Medicine 01/22/24
== END 2025-01-05 06:30 | disposition home or self-care (01) ==
LOC: HO.LNP 06:29
PROVIDERS: Visit Provider Student in an Organized Health Care Education/Training Program
DX: R91.8 Other nonspecific abnormal finding of lung field (principal)
CPT/HCPCS: 87116; 87206

== ENCOUNTER 2025-01-06 18:30 | Outpatient (REF) | payer MEDICARE, MEDICAID, SELFPAY | END 2025-01-06 18:31 | disposition home or self-care (01) | LOC: HO.LNP 18:30 | PROVIDERS: Visit Provider Student in an Organized Health Care Education/Training Program | DX: R91.8 Other nonspecific abnormal finding of lung field (principal) | CPT/HCPCS: 87116; 87206 ==

== ENCOUNTER 2025-01-07 06:24 | Outpatient (REF) | payer MEDICARE, MEDICAID, SELFPAY | END 2025-01-07 06:25 | disposition home or self-care (01) | LOC: HO.HHCLNP 06:24 | PROVIDERS: Visit Provider Student in an Organized Health Care Education/Training Program | DX: R91.8 Other nonspecific abnormal finding of lung field (principal) | CPT/HCPCS: 87116; 87206 ==

== ENCOUNTER 2025-02-03 12:03 | Outpatient (AMB) | payer MEDICARE, MEDICAID, SELFPAY ==
--- NOTE | 2025-02-03 12:05 | MHC.OFFVIS ---
Vital Signs 02/03/25 12:14 Height 5 ft 1 in BP 144/74 H Blood Pressure Location Rt brachial Position Sitting BP not taken reason Medical Reason Pulse 83 Pulse Source Pulse Oximeter Pulse Oximetry (%) 98 Oxygen Delivery Method Room Air Intake Visit Reasons: T1DM Intake Note: Patient present today to follow up on Type 1 Diabetes Mellitus/Insulin Pump: Last Diabetic Eye exam: Pt does not recall when, stated a few months ago. Last Podiatry Visit: 08/14/2024, [facility], care for right foot ulcer. Most Recent HgA1C: 6.9% , 02/03/2025 Random Glucose: 224 mg/dL, Today Special Systems Technician Required: No Accompanied by: Self / Same As Patient Allergies icodextrin Allergy (Mild, Verified 02/03/25 12:13) Rash oxycodone Adverse Reaction (Severe, Verified 02/03/25 12:13) rash tramadol Adverse Reaction (Severe, Verified 02/03/25 12:13) rash CLOROXINE Allergy (Unknown, Uncoded 02/03/25 12:13) RASH HPI Comments Details: 34 year-old female today for follow-up visit, for diabetes type 1 management in the setting of end-stage renal disease. She was started on an omni pod earlier 2023.? Last seen by Tami on.. This is my first time seen the patient. She reports feeling overall well now but she was in the hospital until 01/19 when she underwent BKA, she was discharged 3 days ago. She reports that when she was in the hospital did not allow her to use the pump. Measures carbs appropriately but Override the pump 100% due to fear of going high She enters carbs prior to meals, sometimes she forgets She has type 1 diabetes diagnosed at age 11. Diabetes has been complicated with diabetic nephropathy with end-stage renal disease and hemodialysis.? She has diabetic neuropathy, hypertension? dyslipidemia. The patient is anuric. She has been on hemodialysis Sunday and Fridays for several years.. Lows: no saw Optho: This year? - no retinopathy per patient reports Has neuropathy:? Symptoms include numbness, tingling she is followed by Podiatry tingling much better since on pregabalin. No history of CVA, [place]. S/p R BKA 01/19/25, due to osteomyelitis Diet: reports eating salads, chicken, seafood, etc. Vague Exercise:?not currently due to BKA control: IUD not planning for ? she would like to wait for transplant first? seen at [facility] regulary has appt next month? Pump settings: Basal rate(s) (units/hour) : 12 AM? to 12 AM? 1.25units / hr ?? Bolus setting Insulin Carbohydrate Ratio (s)? 12 AM? to 12 AM? 1:5 Correction Factor / Sensitivity Factor? 12 AM? to 12 AM? 1:45 Active Insulin Time:? 2.0 Target(s): 12 AM? to 12 AM? 110 mg/dL? Correction Threshold? 12 AM? to 12 AM 110 mg/dL?? changes pumps Q3days Changes Dexcom every 15 days Physical exam General: Well appearing. NAD. Neck/Thyroid: Thyroid not visibly enlarged CV: RRR, no murmur. No edema. Resp:Lungs clear to auscultation bilaterally Abdomen: Soft, nontender. nondistended Extremities/Neuro: Status post right BKA Labs Laboratory Tests 12/02/24 02/03/25 02/03/25 16:42 12:15 12:22 Hgb 9.8 L Glucose (Clinic) 224 H Hgb A1c (Clinic) 6.9 H TSH 0.93 CGM data: Highs can be atributed to osteomyelitis and recent stress from surgery. From the CGM data, an average blood glucose of 230 is slightly higher than the CGM predicted GMI: 9.6% versus 8.8% [facility] Medical History (Updated 02/03/25 @ 13:24 by Moshe Avila MD) Foot ulcer Asthma Dyspnea Pulmonary nodules Chronic allergic rhinitis Allergies Kidney failure ESRD (end stage renal disease) on dialysis Anemia HTN (hypertension) ESRD (end stage renal disease) 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 Hypoglycemia due to type 1 diabetes mellitus Hypertension Dyslipidemia Diabetic polyneuropathy associated with type 1 diabetes mellitus Diabetes type 1, uncontrolled ESRD (end stage renal disease) on dialysis ESRD (end stage renal disease) Surgical History (Updated 02/03/25 @ 12:13 by BUNNY Aragon) History of below-knee amputation of right lower extremity History of hemodialysis Hx of amputation Hx of eye surgery Hx of section Family History Father Diabetes mellitus Mother Thyroid disease Pre-diabetes HTN (hypertension) Acute depression Arthritis Social History Household Members: Significant Other Household Members Other:: / - 6 y/o daughter Housing: Apartment Do you presently have visiting nurse or other home services: No Alcohol intake: never Patient Tobacco Use Status: Never used Tobacco service: No Current occupational status: disabled Physical Exam Vital Signs: Last Vital Signs Pulse 83 02/03/25 12:14 BP 144/74 H 02/03/25 12:14 Pulse Ox 98 02/03/25 12:14 Oxygen Delivery Method Room Air 02/03/25 12:14 Office Procedures Glucose Monitoring Details Details: See [facility] [address] - Glucose Monitoring, continuous Procedure code (CPT) selection complete Results AMB Hemoglobin A1c AMB Hemoglobin A1c 6.9 % Last Edit by BUNNY Aragon on 02/03/25 12:27 Results Reviewed Results Reviewed: Laboratory Last Values Glucose (Clinic) 224 mg/dL (60-115) H 02/03/25 12:15 Hgb A1c (Clinic) 6.9 % (4.0-6.0) H 02/03/25 12:22 Assessment & Plan Assessment & Plan (1) Diabetes type 1, uncontrolled: Code(s): E10.65 - Type 1 diabetes mellitus with hyperglycemia Category: Medical Qualifiers: Glycemic state: with hyperglycemia Qualified Code(s): E10.65 - Type 1 diabetes mellitus with hyperglycemia (2) Long-term insulin use: Code(s): Z79.4 - exterminator termite (current) use of insulin Category: Medical Plan Type 1 diabetes with hyperglycemia Patient most recent A1c is 6.9%, but we note that this may not be accurate in the setting of chronic anemia due to CKD. Usually I estimate A1c based on patient's 14 days blood glucose hours from CGM, but given that the patient was hospitalized and was not using her CGM/pump, that data is also not available. It is reasonable to assume at this point that part of the hypoglycemia is due to the stress of osteomyelitis and surgery. I did notice that the patient was supposed to have some changes in her pump that I did not see reflected when I review her pump, and we made the changes now. Plan We made the changes to insulin pump as previously agree with the patient the last office visit Discussed with the patient about the importance of insulin timing Advised the patient to bolus 15 minutes prior to all meals We also talked about how tired influence her blood sugar control Advised the patient to follow-up with Podiatry and Ophthalmology periodically for early screen of complications Pump settings: Basal rate(s) (units/hour) : 12 AM? to 12 AM? 1.25units / hr ?? Bolus setting Insulin Carbohydrate Ratio (s)? 12 AM? to 12 AM? 1:5.5 ? new 4.5 Correction Factor / Sensitivity Factor? 12 AM? to 12 AM? 1:30? new 33 Active Insulin Time:? 2.0 Target(s): 12 AM? to 12 AM? 110 mg/dL? Correction Threshold? 12 AM? to 12 AM 110 mg/dL?? Pump failure instructions I noticed that the patient is receiving a total daily dose of 15.7 units, but she is heavily dependent on basal that she is not bolusing and she had no use the pump for long enough, then this isn't motor vehicle representative this. Based on previous home logs: Basal 18 units-57% of the time Bolus 13.6 units-40% of the time In case of insulin pump failure Give Lantus 16 units daily Orders: Orders AMB Hemoglobin A1c Today E10.65 - Type 1 diabetes mellitus with hyperglycemia AMB Glucose Monitoring Today E10.65 - Type 1 diabetes mellitus with hyperglycemia Coding Level of Care Code Est Pt Level 4 (00871) Diagnoses Uncontrolled type 1 diabetes mellitus with hyperglycemia E10.65 Glycemic state: with hyperglycemia Long-term insulin use Z79.4 CPT Codes Details - CPT: 39113 - Glucose Monitoring, continuous ([id number]) Time Spent (min) 45 Comment Time spent on review of previous records, history, exam/plan and patient education.
[2025-02-03 12:14] VITALS: BP 144/74; PULSE 83; O2SAT 98
[2025-02-03 12:23] LABS: Glucose, Whole Blood 224 mg/dL (60-115)
--- OUTSIDE RECORDS SUMMARY | 2025-02-03 15:30 | XMS_ITS | Encounter Summary ---
Demographics Address [address] [place] [address] Mobile Phone Home Phone Preferred Language Vietnamese Marital Status Mandaen Affiliation Unknown Race White Ethnic Group Unknown Author Organization [facility] Address [address] [place] [address] Care Team Providers Care Milk Drying Machine Operator Name Role Phone Ally Ferreira Primary Care Provider [phone] Encounter Details Date Type Department Care Team (Late st Contact Info) Description 02/02/2025 Orders Only [facility] Transplant Department [address] [place] [address] Sabina Velázquez RN [address] [place], [place] [phone] ESRD (end stage renal disease) (Primary Dx); [...] Team (Late st Contact Info) Description 02/05/2025 10:15 AM EDT Follow-Up [facility] Renal Transplant [address] [place] [address] Antolin Cortes MD PhD [address] [place] [address] 02/05/2025 11:00 AM EDT Follow-Up [facility] Renal Transplant [address] [place] [address] Vinicio Harris MD [address] [place] [address] 02/05/2025 11:45 AM EDT Social Work [facility] Renal Transplant [address] [place] [address] Michelet Swartz documented as of this encounter Visit Diagnoses Diagnosis ESRD (end stage renal disease)- Primary End stage renal disease Pre-transplant evaluation for kidney transplant documented in this encounter Care Teams Milk Drying Machine Operator Relationship Specialty Start Date End Date Ally Ferreira [address] [place] [address] PCP - General 02/04/24 documented as of this encounter
--- OUTSIDE RECORDS SUMMARY | 2025-02-03 15:30 | XMS_ITS | Encounter Summary ---
Demographics Address [address] [place] [address] Mobile Phone Home Phone Preferred Language Frisian Marital Status Buddhism Affiliation Unknown Race White Ethnic Group Unknown Author Organization [facility] Address [address] [place] [address] Care Team Providers Care Superintendent Operations Division Name Role Phone Ally Ferreira Primary Care Provider [phone] Encounter Details Date Type Department Care Team (Late st Contact Info) Description 01/11/2021 Orders Only [facility] Nuclear Medicine [address] [place] [address] Shiva Duran MD [address] [place] [address] Social History Tobacco Use Types Packs/Day Years [...] Info) Description 02/05/2025 10:15 AM EDT Follow-Up [facility] Renal Transplant [address] [place] [address] Antolin Cortes MD PhD [address] [place] [address] 02/05/2025 11:00 AM EDT Follow-Up [facility] Renal Transplant [address] [place] [address] Vinicio Harris MD [address] [place] [address] 02/05/2025 11:45 AM EDT Social Work [facility] Renal Transplant [address] [place] [address] Michelet Swartz documented as of this encounter Visit Diagnoses Not on filedocumented in this encounter Care Teams Superintendent Operations Division Relationship Specialty Start Date End Date Ally Ferreira [address] [place] [address] PCP - General 02/04/24 documented as of this encounter
--- OUTSIDE RECORDS SUMMARY | 2025-02-03 15:30 | XMS_ITS | Encounter Summary ---
Author Organization [facility] Address [address] [place] [address] Phone Care Team Providers Care Medical Record Transcriber Name Role Phone Pcp, Unknown Primary Care Provider Ally Hernandez MD Primary Care Pro vider Encounter Details Date Type Department Care Team (Late st Contact Info) Description 03/07/2022 Procedure Pass [facility] - RF[facility]IR [address] [facility] [address] [place] [address] Social History Tobacco Use Types Packs/Day Years [...] Last Indicated Resolved Time CoV-Risk 12/29/2024 12/29/2024 01/09/2025 1:23 AM EDT documented as of this encounter Care Teams Medical Record Transcriber Relationship Specialty Start Date End Date Pcp, Unknown PCP - General 07/29/21 12/28/24 Ally Ferreira MD [address] [place] [address] PCP - General Internal Medicine 12/29/24 documented as of this encounter Additional Source Comments The information contained in this document represents components of the legal health record. It is not the complete legal health record.[facility]
--- OUTSIDE RECORDS SUMMARY | 2025-02-03 15:30 | XMS_ITS | Encounter Summary ---
Demographics Address [address] [place] [address] Mobile Phone Home Phone Preferred Language Tajik Marital Status Yarsani Affiliation Unknown Race White Ethnic Group Unknown Author Organization [facility] Address [address] [place] [address] Care Team Providers Care Licensing And Registration Director Name Role Phone Ally Ferreira Primary Care Provider [phone] Encounter Details Date Type Department Care Team (Late st Contact Info) Description 02/09/2021 Orders Only [facility] Nuclear Medicine [address] [place] [address] Shiva Duran MD [address] [place] [address] Social History Tobacco Use Types Packs/Day Years [...] Info) Description 02/05/2025 10:15 AM EDT Follow-Up [facility] Renal Transplant [address] [place] [address] Antolin Cortes MD PhD [address] [place] [address] 02/05/2025 11:00 AM EDT Follow-Up [facility] Renal Transplant [address] [place] [address] Vinicio Harris MD [address] [place] [address] 02/05/2025 11:45 AM EDT Social Work [facility] Renal Transplant [address] [place] [address] Michelet Swartz documented as of this encounter Visit Diagnoses Not on filedocumented in this encounter Care Teams Licensing And Registration Director Relationship Specialty Start Date End Date Ally Ferreira [address] [place] [address] PCP - General 02/04/24 documented as of this encounter
--- OUTSIDE RECORDS SUMMARY | 2025-02-03 15:30 | XMS_ITS | Encounter Summary ---
Demographics Address [address] [place] [address] Mobile Phone Home Phone Preferred Language Sami Marital Status Hinduism Affiliation Unknown Race White Ethnic Group Unknown Author Organization [facility] Address [address] [place] [address] Care Team Providers Care Finance Assistant Name Role Phone Ally Ferreira Primary Care Provider [phone] Encounter Details Date Type Department Care Team (Late st Contact Info) Description 12/02/2019 Orders Only [facility] Nuclear Medicine [address] [place] [address] Shiva Duran MD [address] [place] [address] Social History Tobacco Use Types Packs/Day Years [...] Info) Description 02/05/2025 10:15 AM EDT Follow-Up [facility] Renal Transplant [address] [place] [address] Antolin Cortes MD PhD [address] [place] [address] 02/05/2025 11:00 AM EDT Follow-Up [facility] Renal Transplant [address] [place] [address] Vinicio Harris MD [address] [place] [address] 02/05/2025 11:45 AM EDT Social Work [facility] Renal Transplant [address] [place] [address] Michelet Swartz documented as of this encounter Visit Diagnoses Not on filedocumented in this encounter Care Teams Finance Assistant Relationship Specialty Start Date End Date Ally Ferreira [address] [place] [address] PCP - General 02/04/24 documented as of this encounter
--- OUTSIDE RECORDS SUMMARY | 2025-02-03 15:30 | XMS_ITS | Clinical Summary ---
Demographics Address [address] [place] [address] Mobile Phone Home Phone Preferred Language Maltese Marital Status Church Affiliation Unknown Race White Ethnic Group Unknown Author Organization [facility] Address [address] [place] [address] Care Team Providers Care Tube Teller Name Role Phone Ally Ferreira Primary Care Provider [phone] Allergies Active Allergy Reactions Criticality Noted Date [...] 1 each 3 3 Active Dexcom G6 Tearoom Hostess misc Use as directed. E10.65 1 each [...] Encounters Date Type Department Care Team Description 02/02/2025 Orders Only [facility] Transplant Department [address] [place] [address] Sabina Velázquez, RN ESRD (end stage renal disease) (Primary Dx); Pre-transplant evaluation for kidney transplant 02/02/2025 Telephone [facility] Transplant Department [address] [place] [address] Sabina Velázquez, RUTH ANN 01/29/2025 Orders Only [facility] Transplant Department [address] [place] [address] Sabina Velázquez, RN ESRD (end stage renal disease) (Primary Dx); Pre-transplant evaluation for kidney transplant 12/22/2024 Telephone [facility] Transplant Department [address] [place] [address] Sabina Velázquez, RUTH ANN 12/06/2024 [employer] Message [facility] Renal Transplant [address] [place] [address] Sabina Velázquez, RN Your Recent Visit 11/20/2024 Orders Only [facility] Vascular Surgery [address] [place] [address] Potato Seed Cutter: Marilin Lane MD PAD (peripheral artery disease) (Primary Dx) 11/05/2024 [employer] Message [facility] Renal Transplant [address] [place] [address] Sabina Velázquez, RN Your Recent Visit from Last 3 Months Immunizations Immunization Administration Dates Next Due Covid-19 Monovalent Vaccine, Moderna, mRNA, PF 07/09/2020,05/26/2020 [id number] 05/05/1993,02/22/1993,12/22/1992 Diphtheria, Tetanus Toxoids and Acellular Pertussis [...] Info) Description 02/05/2025 10:15 AM EDT Follow-Up [facility] Renal Transplant [address] [place] [address] Antolin Cortes MD PhD [address] [place] [address] 02/05/2025 11:00 AM EDT Follow-Up [facility] Renal Transplant [address] [place] [address] Vinicio Harris MD [address] [place] [address] 02/05/2025 11:45 AM EDT Social Work [facility] Renal Transplant [address] [place] [address] Michelet Swartz Health Maintenance Due Date Last Done Comments HPV and Pap Smear 1990 Medicare AWV 09/09/1992 Ophthalmology Exam 09/09/2001 Alcohol/Substance Use Screening 04/16/2024 Depression Screening and Follow-Up 04/16/2024 Social Drivers of Health Kalie ual Screening 04/16/2024 COVID-19 Vaccine (2024-2 6 season) 2024 05/13/2024, 06/12/2023, 01/26/2022, Additional history exists Influenza Vaccine (#1) 2024 , 01/11/2023, 05/27/2019, Additional history exists Hemoglobin A1C 05/02/2025 01/30/2025, 07/0 05/2024, 07/16/2024, Additional history exists Basic Metabolic Panel 01/01/2026 01/01/2025 , 12/31/2024, 12/30/2024, Additional history exists Cervical Cancer Screening 05/17/2026 [...] 04/16/2019, 09/27/2018, 07/29/2018, Additional history exists Hepatitis C Screening Completed 09/06/2023 , 10/13/2021, 11/30/2020, Additional history exists HIV Screening Completed 12/02/2024, 11/14, 09/06/2023, Additional history exists Procedures * Due to [place] [employer] law, this organization might not be sharing [...] to Health Maintenance Results * Due to [place] state law, this organization might not be sharing negative HIV tests. * (ABNORMAL) POCT Glycosylated Hemoglobin (HGB A1C), interfaced (02/27/2023 1:05 PM EST) Hemoglobin A1C, POCT 10.6(H) <=5.6 % 02/27/2023 1:20 PM EST [facility], POC Comment: A1C Recommendation for Non- Adults with Diabetes: <7.0% ADA 2011 Standards of Medical Care in Diabetes Blood 02/27/2023 1:05 PM EST 02/27/2023 1:20 PM EST us Robert Meredith MD LAB POCT ORDERABLES - DEVICE Final Result [facility], POC [address] [place] [address], [place] * (ABNORMAL) Basic Metabolic Panel, Outside Lab (11/21/2022) Sodium 134 mmol/L Potassium 4.2 Chloride 90 Carbon Dioxide 29 BUN 42(H) mg/dL Creatinine 8.04(H) mg/dL Calcium 9.2 mg/dL Blood Structure of peripheral vein / Unknown 11/21/2022 us Unknown Provider LAB BLOOD ORDERABLES Final R esult * Hepatitis C Antibody w/Reflex to HCV RNA, Quantitative PCR (11/30/2020 11:09 AM EDT) Hepatitis C Antibody NON-REACT JOSE ARFAEL NON-REACT JOSE RAFAEL 12/01/2020 8:37 AM EDT [employer] [facility] Signal To Cut-Off 0.02 <1.00 12/01/2020 8:37 AM EDT [facility] Comment: HCV antibody was non-reactive. There is no laboratory evidence of HCV infection. In most cases, no further action is required. However, if recent HCV exposure is suspected, a test for HCV RNA (test code 36248) is suggested. For additional information please refer to http://education.Immunovaccine/faq/BZF17l9 (This link is being provided for informational/ educational purposes only.) Blood Structure of peripheral vein / Unknown Venipuncture / Unknown 11/30/2020 11:09 AM EDT 11/30/2020 11:33 AM EDT Narrative [facility] - 12/01/2020 8:37 AM EDT [facility] Received Date: us Stefan Robbins MD LAB BLOOD ORDERABLES Final Result [facility] [address] [facility] [address], [place] [address], [employer] [facility] [address] [facility] [address], [place] [address], [place] [phone] from Last 3 Months or Most Recently Relevant to Health Maintenance Insurance * Guarantor: Irene Mtzsol Account Type Relation to Patient Date of Phone Billing Address Personal/Family Self 1990 [address] [place] [address] [facility] * Guarantor: Irene Mtzsol Account Type Relation to Patient Date of Phone Billing Address Transplant Self 1990 [address] [place], [place] [id number] MEDICARE [facility] Advance Directives Documents on File Type Date Recorded Patient Nipple Threader Expl anation Health Care Proxy 01/26/2023 10:42 AM 01/18/23 Health Care Proxy 12/11/2019 8:18 AM 11/30 Care Teams Tube Teller Relationship Specialty Start Date End Date Ally Ferreira [address] [place] [address] PCP - General 02/04/24
--- OUTSIDE RECORDS SUMMARY | 2025-02-03 15:30 | XMS_ITS | Encounter Summary ---
Author Organization [facility] Address [address] [place] [address] Phone Care Team Providers Care Sanitizer Name Role Phone Ally Ferreira MD Primary Care Pro vider Encounter Details Date Type Department Care Team (Late st Contact Info) Description 12/31/2024 Procedure Pass [facility], Ct Scan - [facility] [address] [place] [address] Social History Tobacco Use Types Packs/Day Years [...] documented as of this encounter Care Teams Sanitizer Relationship Specialty Start Date End Date Ally Ferreira MD [address] [place] [address] PCP - General Internal Medicine 12/29/24 documented as of this encounter Additional Source Comments The information contained in this document represents components of the legal health record. It is not the complete legal health record.[facility]
--- OUTSIDE RECORDS SUMMARY | 2025-02-03 15:30 | XMS_ITS | Encounter Summary ---
Author Organization [facility] Address [address] [place] [address] Phone Care Team Providers Care Rotor Casting Machine Operator Name Role Phone Ally Ferreira MD Primary Care Pro vider Reason for Visit * Reason Comments Med Change Request Encounter Details Date Type Department Care Team (Late st Contact Info) Description 01/01/2025 Refill [facility] [address] [place] [address] Kiet Hidalgo MD [address] [place] [address] Med Change Request Social History Tobacco Use [...] documented as of this encounter Care Teams Rotor Casting Machine Operator Relationship Specialty Start Date End Date Ally Ferreira MD [address] [place] [address] PCP - General Internal Medicine 12/29/24 documented as of this encounter Additional Source Comments The information contained in this document represents components of the legal health record. It is not the complete legal health record.[facility]
--- OUTSIDE RECORDS SUMMARY | 2025-02-03 15:30 | XMS_ITS | Encounter Summary ---
Demographics Address [address] [place] [address] Mobile Phone Home Phone Preferred Language Korean Marital Status Episcopalian Affiliation Unknown Race White Ethnic Group Unknown Author Organization [facility] Address [address] [place] [address] Care Team Providers Care Instructor Industrial Design Name Role Phone Ally Ferreira Primary Care Provider [phone] Encounter Details Date Type Department Care Team (Late st Contact Info) Description 01/29/2025 Orders Only [facility] Transplant Department [address] [place] [address] Sabina Velázquez RN [address] [place], [place] [id number] ESRD (end stage renal disease) (Primary Dx); [...] Info) Description 02/05/2025 10:15 AM EDT Follow-Up [facility] Renal Transplant [address] [place] [address] Antolin Cortes MD PhD [address] [place] [address] 02/05/2025 11:00 AM EDT Follow-Up [facility] Renal Transplant [address] [place] [address] Vinicio Harris MD [address] [place] [address] 02/05/2025 11:45 AM EDT Social Work [facility] Renal Transplant [address] [place] [address] Michelet Swartz Scheduled Orders Name Type Priority Associated Diagnoses Orde r Schedule Hepatitis A Antibody, Total Lab Routine ESRD (end stage renal disease) Pre-transplant evaluation for kidney transplant Expected: 01/29/2025, Expires: 01/29/2026 Hepatitis B Core Antibody, Total Lab Routine ESRD (end stage renal disease) Pre-transplant evaluation for kidney transplant Expected: 01/29/2025, Expires: 01/29/2026 Hepatitis B Surface Antigen W/Confirmation Lab Routine ESRD (end stage renal disease) Pre-transplant evaluation for kidney transplant Expected: 01/29/2025, Expires: 01/29/2026 Hepatitis B Surface Antibody Lab Routine ESRD (end stage renal disease) Pre-transplant evaluation for kidney transplant Expected: 01/29/2025, Expires: 01/29/2026 Hepatitis C Antibody w/Reflex to HCV RNA, Quantitative PCR Lab Routine ESRD (end stage renal disease) Pre-transplant evaluation for kidney transplant Expected: 01/29/2025, Expires: 01/29/2026 HIV-1/2 Antigen/Antibodies 4th Generation w/Reflex Lab Routine ESRD (end stage renal disease) Pre-transplant evaluation for kidney transplant Expected: 01/29/2025, Expires: 01/29/2026 RPR (Diagnosis) w/Reflex to Titer & TPPA Confirm Lab Routine ESRD (end stage renal disease) Pre-transplant evaluation for kidney transplant Expected: 01/29/2025, Expires: 01/29/2026 XR Chest 2 vw. Standard Imaging Routine ESRD (end stage renal disease) Pre-transplant evaluation for kidney transplant Expected: 01/29/2025, Expires: 03/31/2026 documented as of this encounter Visit Diagnoses Diagnosis ESRD (end stage renal disease)- Primary End stage renal disease Pre-transplant evaluation for kidney transplant documented in this encounter Care Teams Instructor Industrial Design Relationship Specialty Start Date End Date Ally Ferreira [address] [place] [id number] PCP - General 02/04/24 documented as of this encounter
--- OUTSIDE RECORDS SUMMARY | 2025-02-03 15:30 | XMS_ITS | Encounter Summary ---
Author Organization [facility] Address [address] [place] [address] Phone Care Team Providers Care Lay Out And Detail Drafter Name Role Phone Ally Ferreira MD Primary Care Pro vider Encounter Details Date Type Department Care Team (Late st Contact Info) Description 12/30/2024 Procedure Pass [facility] Endoscopy Admitting Dept Virtual Department [address] [place] [address] Social History Tobacco Use Types Packs/Day Years [...] documented as of this encounter Care Teams Lay Out And Detail Drafter Relationship Specialty Start Date End Date Ally Ferreira MD [address] [place] [address] PCP - General Internal Medicine 12/29/24 documented as of this encounter Additional Source Comments The information contained in this document represents components of the legal health record. It is not the complete legal health record.[facility]
--- OUTSIDE RECORDS SUMMARY | 2025-02-03 15:30 | XMS_ITS | Encounter Summary ---
Demographics Address [address] [place] [address] Mobile Phone Home Phone Preferred Language Azeri Marital Status Adventism Affiliation Unknown Race White Ethnic Group Unknown Author Organization [facility] Address [address] [place] [address] Care Team Providers Care Car Framer Name Role Phone Ally Ferreira Primary Care Provider [phone] Encounter Details Date Type Department Care Team (Late st Contact Info) Description 02/22/2024 Orders Only [facility] Nuclear Medicine [address] [place] [address] Victor Manuel Corado MD PhD [address] [place] [address] Social History Tobacco Use Types Packs/Day Years [...] Info) Description 02/05/2025 10:15 AM EDT Follow-Up [facility] Renal Transplant [address] [place] [address] Antolin Cortes MD PhD [address] [place] [address] 02/05/2025 11:00 AM EDT Follow-Up [facility] Renal Transplant [address] [place] [address] Vinicio Harris MD [address] [place] [address] 02/05/2025 11:45 AM EDT Social Work [facility] Renal Transplant [address] [place] [address] Michelet Swartz documented as of this encounter Visit Diagnoses Not on filedocumented in this encounter Care Teams Car Framer Relationship Specialty Start Date End Date Ally Ferreira [address] [place] [address] PCP - General 02/04/24 documented as of this encounter
--- OUTSIDE RECORDS SUMMARY | 2025-02-03 15:30 | XMS_ITS | Encounter Summary ---
Author Organization [facility] Address [address] [place] [address] Phone Care Team Providers Care Bible Reader Name Role Phone Ally Ferreira MD Primary Care Pro vider Reason for Visit * Reason Comments Med Change Request Encounter Details Date Type Department Care Team (Late st Contact Info) Description 01/08/2025 Refill [facility] [address] [place] [address] Kiet Hidalgo MD [address] [place] [address] Med Change Request Social History Tobacco Use [...] documented as of this encounter Care Teams Bible Reader Relationship Specialty Start Date End Date Ally Ferreira MD [address] [place] [address] PCP - General Internal Medicine 12/29/24 documented as of this encounter Additional Source Comments The information contained in this document represents components of the legal health record. It is not the complete legal health record.[facility]
--- OUTSIDE RECORDS SUMMARY | 2025-02-03 15:30 | XMS_ITS | Encounter Summary ---
Demographics Address [address] [place] [address] Mobile Phone Home Phone Preferred Language Maori Marital Status Lutheran Affiliation Unknown Race White Ethnic Group Unknown Author Organization [facility] Address [address] [place] [address] Care Team Providers Care Benefits Advisor Name Role Phone Ally Ferreira Primary Care Provider [phone] Encounter Details Date Type Department Care Team (Late st Contact Info) Description 02/02/2025 Telephone [facility] Transplant Department [address] [place] [address] Sabina Velázquez RN [address] [place] [address] Social History Tobacco Use Types Packs/Day Years [...] encounter Miscellaneous Notes * Telephone Encounter - Tyler Toney - 02/02/2025 2:41 PM EDT I spoke with the patient to confirm her appointment. documented in this encounter Plan of Treatment Upcoming Encounters Date Type Department Care Team (Late st Contact Info) Description 02/05/2025 10:15 AM EDT Follow-Up [facility] Renal Transplant [address] [place] [address] Antolin Cortes MD PhD [address] [place] [address] 02/05/2025 11:00 AM EDT Follow-Up [facility] Renal Transplant [address] [place], [place] [phone] Vinicio Harris MD [address] [place], [place] [phone] 02/05/2025 11:45 AM EDT Social Work [facility] Renal Transplant [address] [place] [address] Michelet Swartz documented as of this encounter Visit Diagnoses Not on filedocumented in this encounter Care Teams Benefits Advisor Relationship Specialty Start Date End Date Ally Ferreira [address] [place] [address] PCP - General 02/04/24 documented as of this encounter
--- OUTSIDE RECORDS SUMMARY | 2025-02-03 15:30 | XMS_ITS ---
Demographics Address [address] [place] [address] Mobile Phone Home Phone Preferred Language Pashto Marital Status Voodoo Affiliation Unknown Race White Ethnic Group Unknown Author Organization [facility] Address [address] [place] [address] Care Team Providers Care Water Service Dispatcher Name Role Phone Ally Ferreira Primary Care Provider [phone] Transplant Episode Kidney Candidate [facility] ([place], [place]) - [facility] waitlisted on 12/29/2019 Marked as Inactive on 12/22/2024 Reason: Temporarily too Sick Kidney CoordinatorSabina Velázquez RN Email: N/A Scores Score Value Updated Exceptions/Reas ons CPRA 3 09/22/2024 EPTS (Calc) 37 02/03/2025 [place] Organ Diagnosis Organ Primary Contributory Kidney Diabetes Mellitus - Type I Infection History Noted Survival Infection Treatment Organism Resolved 12/17/2019 Acute osteomyelitis of left foot 03/02/2023 Care Team Name Role Phone Fax Email Sabina Velázquez RN Kidney Coordinator [phone] N/A Vinicio Harris MD Nurse Private Duty [phone] [email or web address] Vargas [facility] Osd Clerk [phone] [email or web address] Forrest Adamson Referring Physician [phone] N/A Events Pre-Transplant Referred: 06/26/2019 Evaluation began: 12/01/2019 Committee: 12/03/2019 [facility] qualified: 07/15/2018 Center waitlisted: 12/29/2019 Appointments (01/04/2025 - 03/06/2025) When With Visit Type Description 02/05/2025 Transplant - [place], R Follow Up 02/05/2025 Transplant - Sophia B Follow Up 02/05/2025 Transplant - Caren Harris Follow Up Dialysis History Dialysis History Start End Type Comments Center 07/15/2018 In-center Hemodialysis M/W/F SRINI [facility] Dialysis Center Information Center Phone Fax Address [facility] [phone] [place] [address] [address] [facility] [address]
--- OUTSIDE RECORDS SUMMARY | 2025-02-03 15:31 | XMS_ITS | Clinical Summary ---
Author Organization [facility] Address [address] [place] [address] Phone Care Team Providers Care Permastone Installer Name Role Phone Ally Ferreira MD Primary [...] 2 (two) times a day. 56 g 5 Active insulin aspart U-100 (NOVOLOG) 100 unit/mL injection vial Inject 1 Units under the skin daily. Continue your insulin pump at prior dosing 5 Active ferrous sulfate 325 mg (65 mg cabazon iron) tablet Take 1 tablet (325 mg total) by mouth 3 (three) times a week on Sunday, Sunday, Sunday. 12 tablet 5 Active pregabalin (LYRICA) 25 MG capsule Take 1 capsule (25 mg total) by mouth daily. 5 Active Active Problems Problem Noted Date Diagnosed Date Anemia, unspecified type 12/29/2024 Assessment & Plan (01/01/2025 7:44 AM EDT): Unclear source Hb holding post RBCs, will defer to medicine if need for PRECISION MACHINING INSTRUCTOR eval. Assessment & Plan (12/31/2024 3:49 PM EDT): Natali's last H&H from [facility] on the was 7.5 and 23.4. She [...] (12/31/2024 10:22 AM EDT): Unclear source, possible PRECISION MACHINING INSTRUCTOR related medicine on board broaden differential possible need of CT scan rule out retroperitoneal hematoma. Assessment & Plan (12/30/2024 8:53 AM EDT): Multifactorial with occult GI bleed playing a role going for EGD this morning. Assessment & Plan (12/31/2024 1:07 AM EDT): Natali's last H&H from [facility] on the was 7.5 and 23.4. She [...] 10:54 AM EDT): Natali's last H&H from [facility] on the was 7.5 and 23.4. She [...] 0.25 mcg MWF - Renal diet - [facility] ID recommending IV cefepime 2 gm with/after HD x 6 weeks (end date of 01/23/25). -Follows closely with vascular surgery at [facility]. - Outpatient f/u with Vascular re fistula creation - please dose reduce antibiotics/medications as appropriate for eGFR -Discharged to follow-up with her outpatient nephrology team [facility] ID and vascular surgery. Assessment & Plan (12/31/2024 [...] 0.25 mcg MWF - Renal diet - [facility] ID recommending IV cefepime 2 gm with/after HD x 6 weeks (end date of 01/23/25). -Follows closely with vascular surgery at [facility]. - Outpatient f/u with Vascular re fistula creation - please dose reduce antibiotics/medications as appropriate for eGFR -Discharged to follow-up with her outpatient nephrology team [facility] ID and vascular surgery. Assessment & Plan (12/30/2024 8:53 AM EDT): Continue HD on MWF schedule patient is signed consent hepatitis B surface antigen , plan to dialyze tomorrow. - Continue above antihypertensives - Continue sevelamer 3200 mg TID, Sensipar 30 mg MWF, and calcitriol 0.25 mcg MWF - Renal diet - [facility] ID recommending IV cefepime 2 gm with/after HD x 6 weeks (end date of 01/23/25). Arranged at outpatient HD unit on 12/22. -Follows closely with vascular surgery at [facility]. - Outpatient f/u with Vascular re fistula creation - please dose reduce antibiotics/medications as appropriate for eGFR -Discharged to follow-up with her outpatient nephrology team [facility] EDISON and vascular surgery. Assessment & Plan (12/31/2024 [...] follows with ID and vascular surgery at [facility] if need be may benefit from transferring [...] follows with ID and vascular surgery at [facility] if need be may benefit from transferring for further care. Assessment & Plan (12/31/2024 5:06 AM EDT): 34-year-old female with type 1 diabetes and end-stage renal disease on dialysis with known diabetic foot wounds that are being actively managed by [facility] infectious disease and vascular surgery. Patient currently receiving cefepime 3 times a week with dialysis and has reportedly an appointment tomorrow the with [facility] infectious disease. Patient notes that the wound appears much improved from her recent hospitalization at [facility]. 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 We discussed potential surgical debridement as well as her past discussions with her surgical team regarding potential BKA. At this time patient states that any surgical intervention she would want performed by her primary surgical team at [facility]. Recommendations- Continue local wound care and IV abx. Follow up with her primary surgical/infection disease team at [facility] as scheduled. Assessment & Plan (12/30/2024 8:53 AM EDT): Evaluation follows with ID and vascular surgery at [facility] if need be may benefit from transferring [...] insulin. They use that briefly while at [facility] but then had her return to her pump. She has supplies and has been using her pump while here. Peripheral vascular disease 10/14/2021 Encounters Date Type Department Care Team Description 01/08/2025 Refill [facility] [address] [place] [id number] Kiet Hidalgo MD Med Change Request 01/01/2025 Refill [facility] [address] [place] [id number] Kiet Hidalgo MD Med Change Request 12/31/2024 Procedure Pass [facility], Ct Scan - [address] [address] 12/30/2024 12:45 PM EDT - 12/30/2024 1:00 PM EDT Surgery [facility] Endoscopy Admitting Dept Virtual Department [address] [place] [phone] Dany Quintero MD ESOPHAGOGASTRODUODENOSCOPY 12/30/2024 9:35 AM EDT Anesthesia Event [facility] Ad[facility] Virtual Department [address] [place] [phone] Ney Krishnamurthy MD 12/30/2024 Procedure Pass [facility] Endoscopy Admitting Dept Virtual Department [address] [place] [address] 12/29/2024 2:52 AM EDT - 01/01/2025 12:38 PM EDT Hospital Encounter [facility] [address] [place] [address] Ximena Kang MD Hampson, Brian S, Isiah Denis MD Miskovsky, Glenn E, MD Discharge Disposition: [...] you moved in the past 12 sun ths? One time 12/29/2024 Paying for Meds [...] of12 resultswithin the time period is included. Glucose, POCT 105(H) 70 - 100 mg/dL [facility] 01/01/2025 7:46 AM EDT 01/01/2025 7:48 AM EDT us Kiet Hidalgo MD POINT OF CARE TEST ORDERABL ES Final Result [address] [id number] * (ABNORMAL) Comprehensive metabolic panel (01/01/2025 5:32 AM EDT) Only the most recent of2 resultswithin the time period is included. [facility] SODIUM 137 133 - 146 mmol/L [facility] POTASSIUM 4.2 3.3 - 5.1 mmol/L [facility] CHLORIDE 96 96 - 108 mmol/L [facility] CO2 23 21 - 35 mmol/L [facility] BUN 26(H) 6 - 19 mg/dL [facility] CREATININE 5.80(H) 0.5 - 1.5 mg/dL [facility] GLUCOSE 111(H) 70 - 99 mg/dL [facility] ALBUMIN 3.8(L) 3.9 - 4.8 g/dL [facility] TOTAL PROTEIN 8.3(H) 6.5 - 8.0 g/dL [facility] CALCIUM 9.6 8.4 - 10.3 mg/dL [facility] ALKALINE PHOSPHATASE 117 39 - 117 U/L [facility] TOTAL BILIRUBIN 0.3 0.0 - 1.2 mg/dL [facility] AST 17 0 - 37 U/L [facility] ALT 10 0 - 40 U/L [facility] GLOBULIN 4.5 1 - 4.8 g/dL [facility] EGFR 9(L) >59 mL/min/1.7 3m2 [facility] Comment:Estimated glomerular filtration rate calculated using the CKD-EPI refit equation. ANION GAP 22(H) 10 - 20 mmol/L [facility] Blood 01/01/2025 5:32 AM EDT 01/01/2025 6:41 AM EDT Isiah Brooks MD LAB BLOOD ORDERABLES Final R esult Performing Organization Address [facility] Co de Phone Number [address] [address] * (ABNORMAL) CBC (01/01/2025 5:32 AM EDT) Only the most recent of4 resultswithin the time period is included. WBC 21.45(H) 4.00 - 11.00 K/uL [facility] RBC 3.01(L) 4.00 - 5.20 M/uL [facility] HGB 9.1(L) 12.0 - 16.0 g/dL [facility] Comment:Patient transfused. HCT 28.1(L) 36.0 - 46.0 % [facility] PLT 367 150 - 450 K/uL [facility] MCV 93.4 80.0 - 100.0 fL [facility] MCH 30.2 27.0 - 31.0 pg [facility] MCHC 32.4 32.0 - 36.0 g/dL [facility] RDW 15.5(H) 11.5 - 14.5 % [facility] MPV 11.1 8.4 - 12.0 fL [facility] NRBC 0.00 0.00 /100 WBCs [facility] ABSOLUTE NRBC 0.00 0.00 K/uL [facility] Blood 01/01/2025 5:32 AM EDT 01/01/2025 6:41 AM EDT Isiah Brooks MD LAB BLOOD ORDERABLES Final R esult Performing Organization Address City/[facility]/ZIP Co de Phone Number [address] [address] * (ABNORMAL) Phosphorus (01/01/2025 5:32 AM EDT) Only the most recent of2 resultswithin the time period is included. PHOSPHORUS 6.4(H) 2.7 - 4.5 mg/dL [facility] Blood 01/01/2025 5:32 AM EDT 01/01/2025 6:41 AM EDT Isiah Brooks MD LAB BLOOD ORDERABLES Final R esult Performing Organization Address [facility] de Phone Number [address] [address] * Magnesium (01/01/2025 5:32 AM EDT) Only the most recent of3 resultswithin the time period is included. MAGNESIUM 2.6 1.6 - 2.6 mg/dL [facility] Blood 01/01/2025 5:32 AM EDT 01/01/2025 6:41 AM EDT Isiah Brooks MD LAB BLOOD ORDERABLES Final R esult Performing Organization Address [facility] de Phone Number [address] [address] * Transfuse RBC (12/31/2024 9:30 PM EDT) Only the most recent of4 resultswithin the time period is included. Kiet Hidalgo MD NURSING TREATMENT ORDERABLE S - BLOOD ADMIN Final Result Performing Organization Address [facility] de Phone Number [facility] * CT [...] clinician's provided indication for this examination in [facility]: * Anemia; recent drop in H/H without [...] clinician's provided indication for this examination in [facility]: *Anemia; recent drop in H/H without obvious [...] Quintero MD - 12/30/2024 9:30 AM EDT [facility] Patient Name: Natali Mtz Attending MD:: DANY QUINTERO MD, , Procedure Date: 12/30/2024 9:30 AM Date of : 1990 Age: 34 Admit Type: Outpatient Gender: Female Room: [place] [address] Referring MD: Ally Ferguson Exam Type: Upper [...] 9:30 AM Procedure Code(s): --- Professional --- 19621, Esophagogastroduodenoscopy, flexible, transoral; diagnostic, including collection of specimen(s) by brushing or washing, when performed (separate procedure) --- Technical --- 46462, Esophagogastroduodenoscopy, flexible, transoral; diagnostic, including collection of [...] secondary to bloodloss (chronic) CPT copyright 2021 [employer]. All rights reserved. The codes documented in this report are preliminary and upon clinical coder reviewmay be revised to meet current compliance requirements. Procedure Date: 12/30/2024 9:30:[address] [place] [id number] us Ally Ferguson MD GI PROCEDURE ORDMarcello CONLEY Final Result * (ABNORMAL) Basic metabolic panel (12/30/2024 6:29 AM EDT) Only the most recent of3 resultswithin the time period is included. SODIUM 133 133 - 146 mmol/L [facility] CHLORIDE 96 96 - 108 mmol/L [facility] POTASSIUM 5.3(H) 3.3 - 5.1 mmol/L [facility] Comment:Specimen slightly he molyzed, result may be falsely elevated. CO2 21 21 - 35 mmol/L [facility] BUN 32(H) 6 - 19 mg/dL [facility] CREATININE 6.50(HH) 0.5 - 1.5 mg/dL [facility] Comment: Critical value: Results called to and read back by: HENNY Vázquez RN, 0800,[facility] GLUCOSE 89 70 - 99 mg/dL [facility] CALCIUM 9.4 8.4 - 10.3 mg/dL [facility] EGFR 8(L) >59 mL/min/1.7 3m2 [facility] Comment:Estimated glomerular filtration rate calculated using the CKD-EPI refit equation. ANION GAP 21(H) 10 - 20 mmol/L [facility] Blood 12/30/2024 6:29 AM EDT 12/30/2024 7:09 AM EDT us Kiet Hidalgo MD LAB BLOOD ORDERABLES Final Result [address] [address] * (ABNORMAL) Fecal immunochemical test x1 (FIT) (12/29/2024 12:33 PM EDT) Immuno Fecal Occult Positive(A ) Negative [facility] Stool (Stool) 12/29/2024 12: 33 PM EDT 12/29/2024 1:00 PM EDT us Kiet Hidalgo MD BODY FLUIDS AND STOOLS YARA [place] Final Result [facility] [address] [place] [address] * (ABNORMAL) CBC and differential (12/29/2024 9:17 AM EDT) Only the most recent of2 resultswithin the time period is included. WBC 18.82(H) 4.00 - 11.00 K/uL [facility] RBC 1.69(L) 4.00 - 5.20 M/uL [facility] HGB 5.1(LL) 12.0 - 16.0 g/dL [facility] Comment: Repeated and verified Checked sample for clots This result has been called to Peter Armendariz by [id number] on 12/29/2024 10:51:33, and has been read back. HCT 15.7(L) 36.0 - 46.0 % [facility] PLT 297 150 - 450 K/uL [facility] MCV 92.9 80.0 - 100.0 fL [facility] MCH 30.2 27.0 - 31.0 pg [facility] MCHC 32.5 32.0 - 36.0 g/dL [facility] RDW 17.0(H) 11.5 - 14.5 % [facility] MPV 11.7 8.4 - 12.0 fL [facility] NRBC 0.00 0.00 /100 WBCs [facility] ABSOLUTE NRBC 0.00 0.00 K/uL [facility] DIFF METHOD Auto [facility] NEUTS 76.6(H) 48.0 - 76.0 % [facility] LYMPHS 10.1(L) 18.0 - 41.0 % [facility] MONOS 7.6 4.0 - 11.0 % [facility] EOS 3.9 0.0 - 5.0 % [facility] BASOS 0.4 0.0 - 1.5 % [facility] Granulocytes, immature (%) 1.4(H) 0.0 - 0.9 % [facility] ABSOLUTE NEUTS 14.41(H) 1.92 - 7.60 K/uL [facility] ABSOLUTE LYMPHS 1.91 0.72 - 4.10 K/uL [facility] ABSOLUTE MONOS 1.43(H) 0.16 - 1.10 K/uL [facility] ABSOLUTE EOS 0.73(H) 0.00 - 0.50 K/uL [facility] ABSOLUTE BASOS 0.08 0.00 - 0.15 K/uL [facility] Granulocytes, immature 0.26(H) 0.00 - 0.09 K/uL [facility] Blood 12/29/2024 9:17 AM EDT 12/29/2024 9:31 AM EDT us Nadir Galeana MD LAB BLOOD ORDERABLES Final Resul t Performing Organization Address City/[facility] Co de Phone Number [address] [address] * Hepatitis B surface antigen (12/29/2024 8:07 AM EDT) HBV SURFACE ANTIGEN NON-REACTI VE NON-REACTI VE [facility] Blood 12/29/2024 8:07 AM EDT 12/29/2024 9:29 AM EDT us Nadir Galeana MD LAB BLOOD ORDERABLES Final Resul t Performing Organization Address [facility] Co de Phone Number [address] [address] * (ABNORMAL) Haptoglobin (12/29/2024 8:07 AM EDT) HAPTOGLOBIN 244(H) 30 - 200 mg/dL [facility] 12/29/2024 8:07 AM EDT 12/29/2024 9:29 AM EDT us Nadir Galeana MD LAB BLOOD ORDERABLES Final Resul t Performing Organization Address City/[facility]/ZIP Co de Phone Number [address] [address] * Blood Culture, Routine (12/29/2024 6:26 AM EDT) Only the most recent of2 resultswithin the time period is included. Special Requests None 12/29/2024 5:22 AM EDT [facility] BLOOD CULTURE NO GROWTH 5 DAYS 01/03/2025 7:01 AM EDT [facility] Blood (Blood) 12/29/2024 6:2 6 AM EDT 12/29/2024 6:43 AM EDT Ximena Kang MD MICROBIOLOGY - GENERAL ORDER LULA Final Result Performing Organization Address [facility] Co de Phone Number [address] [address] * (ABNORMAL) Troponin (12/29/2024 6:26 AM EDT) Only the most recent of2 resultswithin the time period is included. Troponin-T, HS Gen5 154(H) 0 - 9 ng/L [facility] Blood 12/29/2024 6:26 AM EDT 12/29/2024 6:47 AM EDT Ximena Kang MD LAB BLOOD ORDERABLES Final R esult Performing Organization Address [facility] Co de Phone Number [address] [address] * Lactate (12/29/2024 6:26 AM EDT) LACTATE 1.87 0.50 - 2.20 mmol/L [facility] Blood 12/29/2024 6:26 AM EDT 12/29/2024 6:35 AM EDT Ximena Kang MD LAB BLOOD ORDERABLES Final R esult Performing Organization Address [facility] Co de Phone Number [address] [address] * (ABNORMAL) LFTs (hepatic panel) (12/29/2024 5:13 AM EDT) ALKALINE PHOSPHATASE 108 39 - 117 U/L [facility] TOTAL BILIRUBIN 0.4 0.0 - 1.2 mg/dL [facility] DIRECT BILIRUBIN <0.1 0.0 - 0.2 mg/dL [facility] Bilirubin (Indirect) NOT CALCULATED 0 - 1.5 mg/dL [facility] AST 21 0 - 37 U/L [facility] ALT 14 0 - 40 U/L [facility] TOTAL PROTEIN 7.9 6.5 - 8.0 g/dL [facility] ALBUMIN 3.8(L) 3.9 - 4.8 g/dL [facility] GLOBULIN 4.1 1 - 4.8 g/dL [facility] A/G Ratio 0.93(L) 1.00 - 4.80 RATIO [facility] 12/29/2024 5:13 AM EDT 12/29/2024 5:51 AM EDT us Ximena Kang MD LAB BLOOD ORDERABLES Final R esult [address] [address] * Type and Screen (ABO,Rh,Antibody Screen) (12/29/2024 5:13 AM EDT) ABO/Rh O Positive [facility] Antibody Screen Negative [facility] Expiration Date of Sample 01/01/2025,2 359 [facility] Unit Number [id number] [facility] Component Type RBC LR [facility] Product Code [id number] [facility] Unit Division 00 [facility] Product Status ISSUED,FINAL [facility] Unit [facility] [id number] 9 [facility] Component Type APHER RBC LR C2 [facility] Product Code [id number] [facility] Unit Division 00 [facility] Product Status ISSUED,[facility] Unit [facility] [id number] 7 [facility] Component Type APHER RBC LR C1 [facility] Product Code [id number] [facility] Unit Division 00 [facility] Product Status ISSUED,FINAL [facility] Unit [facility] [id number] [facility] Component Type RBC LR [facility] Product [facility] [id number] [facility] Unit Division 00 [facility] Product Status ISSUED,FINAL [facility] Resulting Agency [facility] Blood 12/29/2024 5:13 AM EDT 12/29/2024 5:53 AM EDT us Ximena Kang MD BLOOD BANK TEST ORDERABLES F inal Result [facility] [address] [place] [address] * XR FOOT 3 OR MORE VIEWS [...] clinician's provided indication for this examination in [facility]: Infection COMPARISON: None. Procedure Note Uriel Chandra MD - 12/29/2024 XR FOOT 3 OR MORE VIEWS (RIGHT) Referring clinician's provided indication for this examination in Epic:Infection COMPARISON: None. IMPRESSION: FINDINGS/IMPRESSION: 1. No displaced [...] soft tissue swelling of the forefoot. Peripheralatherosclerosis. us Ximena Kang MD IMG XR LOWER EXTREMITY [...] clinician's provided indication for this examination in [facility]: Dyspnea (Shortness of Breath) COMPARISON: CT chest from November 09, 2022 FINDINGS: Devices/Tubes/Lines: Right IJ dual-lumen central venous catheter with tip projecting over the right atrium. Lungs: Diffuse prominence interstitial markings. No focal consolidation. Pleura: No pleural effusion or pneumothorax. Heart/Mediastinum: Cardiac silhouette is enlarged. Bones/Soft Tissues: No significant abnormality. Procedure Note Stew Gray MD - 12/29/2024 XR CHEST PORTABLE Referring clinician's provided indication for this examination in [facility]:Dyspnea (Shortness of Breath) COMPARISON: CT chest from [...] edema. This can be correlated with NT-proBNP. Ximena Kang MD IMG XR CHEST Final Result * ECG 12-LEAD (12/29/2024 3:14 AM EDT) Ventricular Rate EKG/MIN 100 BPM [facility] Atrial Rate 100 BPM [facility] [place] Interval 122 ms [facility] QRS Duration 76 ms [facility] QT Interval 368 ms [facility] QTC Interval 474 ms [facility] P Mesa 54 degrees [facility] R Wave [place] -2 degrees [facility] T Wave [place] 63 degrees [facility] 12/29/2024 3:14 AM EDT 12/29/2024 8:44 AM EDT Narrative [facility] - 12/29/2024 8:44 AM EDT Normal sinus rhythm Normal ECG No previous ECGs available Confirmed by José Tian ([id number]) on 12/29/2024 8:44:23 AM Ximena Kang MD ECG ORDERABLES Final Result Performing Organization Address City/[facility] Co de Phone Number [email or web address] * COVID Pandemic Respiratory Viral Order (PRO) (12/29/2024 3:14 AM EDT) Test Ordered Rapid COVID has been ordered [facility] Specimen Source/Description NASAL [facility] SARS-CoV 2 (COVID-19) PCR Not Detected Not Detected [facility] Comment: SARS-CoV-2 not detected Negative results do not preclude SARS-CoV-2 infection and should not be used as the sole basis for patient management decisions. Negative results must be combined with clinical observations, patient history, and epidemiological information. Other (Nasopharyngeal swab) 12/29/2024 3:14 AM EDT 12/29/2024 3:29 AM EDT Ximena Kang MD BODY FLUIDS AND STOOLS ORDER LULA Final Result Performing Organization Address City/[facility]/ZIP Co de Phone Number [address] [address] * HCG, serum qualitative (12/29/2024 3:12 AM EDT) HCG, QUALITATIVE Negative Negative IU/L [facility] Blood 12/29/2024 3:12 AM EDT 12/29/2024 3:30 AM EDT Ximena Kang MD LAB BLOOD ORDERABLES Final R esult [address] [address] * (ABNORMAL) PT-INR (12/29/2024 3:12 AM EDT) Pathologist [facility] PT 13.9(H) 10.2 - 12.9 sec [facility] INR 1.1 0.9 - 1.1 [facility] Comment:Therapeutic range fo r oral Vitamin K antagonists: 2.0-3.5 Blood 12/29/2024 3:12 AM EDT 12/29/2024 3:30 AM EDT Ximena Kang MD LAB BLOOD ORDERABLES Final R esult Performing Organization Address [facility]/ZIP Co de Phone Number [address] [address] * (ABNORMAL) C-Reactive Protein (12/29/2024 3:12 AM EDT) Pathologist [facility] C REACTIVE PROTEIN 45.9(H) 0.0 - 4.0 mg/L [facility] Blood 12/29/2024 3:12 AM EDT 12/29/2024 3:30 AM EDT Ximena Kang MD LAB BLOOD ORDERABLES Final R esult Performing Organization Address City/[facility]/ZIP Co de Phone Number [address] [address] * (ABNORMAL) NT-proBNP (12/29/2024 3:12 AM EDT) NT-PROBNP 12,850(H) 0 - 125 pg/mL [facility] Blood 12/29/2024 3:12 AM EDT 12/29/2024 3:30 AM EDT Ximena Kang MD LAB BLOOD ORDERABLES Final R esult Performing Organization Address [facility]/ZIP Co de Phone Number [address] [address] * 2nd Type (New Sample) (12/29/2024 3:10 AM EDT) ABO/Rh O Positive [facility] Resulting Agency [facility] 12/29/2024 3:10 AM EDT 12/29/2024 6:07 AM EDT Ximena Kang MD BLOOD BANK TEST ORDERABLES F inal Result Performing Organization Address [facility] Co de Phone Number [address] [address] * (ABNORMAL) Hemoglobin A1c (10/13/2021 12:35 PM EDT) HEMOGLOBIN A1C 11.0(H) 4.3 - 5.6 % [facility] Comment:HbA1c levels 5.7-6.4 % represent pre-diabetes, indicating impaired glucose control and an increased risk of developing diabetes compared with lower HbA1c levels. The diagnostic HbA1c level for diabetes is 6.5% or greater. CALC MEAN BLD GLUC 269 mg/dL [facility] Comment:There is no establis hed normal range for the Calculated Mean Blood Glucose (CMBG), however a HbA1c of 5.6% (upper limit of normal) represents a CMBG of 114 mg/dL. The diagnostic hemoglobin A1c level for diabetes is greater than or equal to 6.5% which represents a CMBG greater than or equal to 140 mg/dL. 10/13/2021 12:3 5 PM EDT 10/13/2021 3:42 PM EDT us Alysha Gong MD LAB BLOOD ORDERABLES Final Result [facility] [address] [place] [address] from Last 3 Months or Most Recently Relevant to Health Maintenance Insurance MEDICARE PART A & B [facility] MEDICARE PART A & [facility] [place] [facility] PART A & B HEALTH MEDICARE PART A & [place] [address] [address] [address] MEDICARE PART A & [place] B [facility] Advance Directives For more information, please contact: [phone] (9AM - 5PM [facility], Sunday-Sunday) * Full Code (Latest Code Status on File) Date Activated Date Inactivated Comments 12/30/2024 9:55 AM Question Answer Comments Code Status Confirmed With: Patient Care Teams Permastone Installer Relationship Specialty Start Date End Date Ally Ferreira MD [address] [place] [address] PCP - General Internal Medicine 12/29/24 Additional Source Comments The information contained in this document represents components of the legal health record. It is not the complete legal health record.[facility]
--- OUTSIDE RECORDS SUMMARY | 2025-02-03 15:31 | XMS_ITS | Encounter Summary ---
Demographics Address [address] [place] [address] Mobile Phone Home Phone Preferred Language Maori Marital Status Anabaptist Affiliation Unknown Race White Ethnic Group Unknown Author Organization [facility] [place] Address [address] [place] [address] Care Team Providers Care Stained Glass Painter Name Role Phone Ally Ferreira Primary Care Provider [phone] Encounter Details Date Type Department Care Team (Late st Contact Info) Description 05/07/2023 Orders Only [facility] Nuclear Medicine [address] [place] [address] Shiva Duran MD [address] [place] [address] Social History Tobacco Use Types Packs/Day Years [...] [facility]al Trans[facility] [address] [place] [address] Antolin Cortes MD PhD [address] [place] [address] 02/05/2025 11:00 AM EDT Follow-Up [facility] Renal Transplant [address] [place] [address] Vinicio Harris MD [address] [place] [address] 02/05/2025 11:45 AM EDT Social Work [facility] Renal Transplant [address] [place] [address] Michelet Swartz documented as of this encounter Visit Diagnoses Not on filedocumented in this encounter Care Teams Stained Glass Painter Relationship Specialty Start Date End Date Ally Ferreira [address] [place] [address] PCP - General 02/04/24 documented as of this encounter
== END 2025-02-03 13:09 | disposition home or self-care (01) ==
LOC: HO.ENCR 12:04
PROVIDERS: PCP Student in an Organized Health Care Education/Training Program; Visit Provider Student in an Organized Health Care Education/Training Program
DX: E10.65 Type 1 diabetes mellitus with hyperglycemia (principal); Z79.4 Long term (current) use of insulin
CPT/HCPCS: 99214

== ENCOUNTER → 2025-02-03 12:03 | Outpatient (BNVA) | payer MEDICARE, MEDICAID, SELFPAY | PROVIDERS: PCP Student in an Organized Health Care Education/Training Program; Visit Provider Student in an Organized Health Care Education/Training Program | DX: E10.65 Type 1 diabetes mellitus with hyperglycemia (principal); Z79.4 Long term (current) use of insulin | CPT/HCPCS: 82947; 83036; 95250; 99212 ==

== ENCOUNTER 2025-02-12 16:24 | Outpatient (REF) | payer MEDICARE, MEDICAID, SELFPAY ==
--- NOTE | ~2025-02-12 | CT_ITS ---
CLINICAL HISTORY: R91.8 - Other nonspecific abnormal finding of lung field CT chest without contrast Comparison: CT/REG/KS/SR - CT CHEST WITHOUT IV CONTRAST - 11/01/23 10:12 EDT Findings: The heart is normal size. Calcification of the coronary vasculature. The visualized thyroid and mediastinum are unremarkable. No evidence of pneumonia or edema. Stable bilateral pulmonary nodules. For example, no change in the 5 mm subpleural nodule within the superior segment left lower lobe posteriorly ( image 47 ). Stable mild scattered regions of tree-in-bud opacity ( for example within the right lower lobe posteriorly on image 66). The visualized upper abdomen is unremarkable. The bones are intact. IMPRESSION: 1. Stable bilateral pulmonary nodules and tree-in-bud pulmonary opacities. 2. Coronary artery disease. This document has been electronically signed by: Clover Garcia MD on 02/13/2025 15:28:43
--- OUTSIDE RECORDS SUMMARY | 2025-02-12 18:20 | XMS_ITS | Encounter Summary ---
Author Organization [facility] Address [address] [place] [address] Care Team Providers Care Casing Cleaner Name Role Phone Ally Ferreira Primary Care Provider [phone] Encounter Details Date Type Department Care Team (Late st Contact Info) Description 12/02/2019 Orders Only [facility] Nuclear Medicine [address] [place] [address] Shiva Duran MD [address] [place] [address] Social History Tobacco Use Types Packs/Day Years [...] Care Team (Late st Contact Info) Description 02/02/2026 10:40 AM EDT Follow-Up [facility] Renal Transplant [address] [place] [address] Vinicio Harris MD [address] [place] [address] 02/02/2026 11:00 AM EDT Social Work [facility] Renal Transplant [address] [place] [address] Chani Vargas LICSW [address] [place] [address] documented as of this encounter Visit Diagnoses Not on filedocumented in this encounter Care Teams Casing Cleaner Relationship Specialty Start Date End Date Ally Ferreira [address] [place] [address] PCP - General 02/04/24 documented as of this encounter
--- OUTSIDE RECORDS SUMMARY | 2025-02-12 18:20 | XMS_ITS | Encounter Summary ---
Author Organization [facility] Address [address] [place] [address] Care Team Providers Care Game Programer Name Role Phone Ally Ferreira Primary Care Provider [phone] Encounter Details Date Type Department Care Team (Late st Contact Info) Description 05/07/2023 Orders Only [facility] Nuclear Medicine [address] [place] [address] Shiva Duran MD [address] [place] [address] Social History Tobacco Use Types Packs/Day Years [...] Info) Description 02/02/2026 10:40 AM EDT Follow-Up [facility] Renal Transplant [address] [place] [address] Vinicio Harris MD [address] [place] [address] 02/02/2026 11:00 AM EDT Social Work [facility] Renal Transplant [address] [place] [address] Chnai Vargas LICSW [address] [place] [address] documented as of this encounter Visit Diagnoses Not on filedocumented in this encounter Care Teams Game Programer Relationship Specialty Start Date End Date Ally Ferreira [address] [place] [address] PCP - General 02/04/24 documented as of this encounter
--- OUTSIDE RECORDS SUMMARY | 2025-02-12 18:20 | XMS_ITS ---
Author Organization [facility] Address [address] [place] [address] Care Team Providers Care Locks Tender Name Role Phone Ally Ferreira Primary Care Provider [phone] Transplant Episode Kidney Candidate [facility] [place] waitlisted on 12/29/2019 Marked as Inactive on 12/22/2024 Reason: Temporarily too Sick Kidney CoordinatorSabina Velázquez RN Email: N/A Scores Score Value Updated Exceptions/Reas ons CPRA 3 09/22/2024 EPTS (Calc) 37 02/12/2025 [place] Organ Diagnosis Organ Primary Contributory Kidney Diabetes Mellitus - Type I Infection History Noted Survival Infection Treatment Organism Resolved 12/17/2019 Acute osteomyelitis of left foot 03/02/2023 Care Team Name Role Phone Fax Email Sabina Velázquez RN Kidney Coordinator [phone] N/A Vinicio Harris MD Peach Grower [phone] [email or web address] [email or web address] [facility] Account Service Associate [phone] [email or web address] Forrest Adamson Referring Physician [phone] N/A Events Pre-Transplant Referred: 06/26/2019 Evaluation began: 12/01/2019 Committee: 12/03/2019 [facility] qualified: 07/15/2018 Center waitlisted: 12/29/2019 Appointments (01/13/2025 - 03/15/2025) When With Visit Type Description 02/05/2025 Transplant - [place], R Follow Up 02/05/2025 Transplant - Ana Cristina Cortes Follow Up ESR D (end stage renal disease) (Primary Dx); Peripheral vascular disease 02/05/2025 Transplant - Caren Harris Follow Up Dialysis History Dialysis History Start End Type Comments Center 07/15/2018 In-center Hemodialysis M/W/F SRINI [facility] Dialysis Center Information Center Phone Fax Address [facility] [phone] [address] [facility] [address] [facility] [address]
--- OUTSIDE RECORDS SUMMARY | 2025-02-12 18:20 | XMS_ITS | Encounter Summary ---
Author Organization [facility] Address [address] [place] [address] Phone Care Team Providers Care Nascar Pit Crew Person Name Role Phone Azucena Bradley MD Primary Care Provider [phone] Reason for Visit * Reason Comments Med Refill Encounter Details Date Type Department Care Team (Late st Contact Info) Description 03/06/2021 Refill [facility] [address] [place] [address] Forrest Adamson MD Social History [...] on filedocumented in this encounter Care Teams Nascar Pit Crew Person Relationship Specialty Start Date End Date Azucena Bradley MD [address] [place] [address], [facility] [address] [place] [address] PCP - General Internal Medicine 01/22/24 documented as of this encounter
--- OUTSIDE RECORDS SUMMARY | 2025-02-12 18:20 | XMS_ITS | Encounter Summary ---
Author Organization [facility] Address [address] [place] [address] Care Team Providers Care Riveter Name Role Phone Ally Ferreira Primary Care Provider [phone] Encounter Details Date Type Department Care Team (Late st Contact Info) Description 01/11/2021 Orders Only [facility] Nuclear Medicine [address] [place] [address] Shiva Duran MD [address] [place] [address] Social History Tobacco Use Types Packs/Day Years [...] Info) Description 02/02/2026 10:40 AM EDT Follow-Up [facility] Renal Transplant [address] [place] [address] Vinicio Harris MD [address] [place] [address] 02/02/2026 11:00 AM EDT Social Work [facility] Renal Transplant [address] [place] [address] Chani Vargas LICSW [address] [place] [address] documented as of this encounter Visit Diagnoses Not on filedocumented in this encounter Care Teams Riveter Relationship Specialty Start Date End Date Ally Ferreira [address] [place] [address] PCP - General 02/04/24 documented as of this encounter
--- OUTSIDE RECORDS SUMMARY | 2025-02-12 18:20 | XMS_ITS | Encounter Summary ---
Author Organization [facility] Address [address] [place] [address] Care Team Providers Care Advanced Clinical Specialist Name Role Phone Ally Ferreira Primary Care Provider [phone] Encounter Details Date Type Department Care Team (Late st Contact Info) Description 02/09/2021 Orders Only [facility] Nuclear Medicine [address] [place] [address] Shiva Duran MD [address] [place] [address] Social History Tobacco Use Types Packs/Day Years [...] Info) Description 02/02/2026 10:40 AM EDT Follow-Up [facility] Renal Transplant [address] [place] [address] Vinicio Harris MD [address] [place] [address] 02/02/2026 11:00 AM EDT Social Work [facility] Renal Transplant [address] [place] [address] Chani Vargas LICSW [address] [place] [address] documented as of this encounter Visit Diagnoses Not on filedocumented in this encounter Care Teams Advanced Clinical Specialist Relationship Specialty Start Date End Date Ally Ferreira [address] [place] [address] PCP - General 02/04/24 documented as of this encounter
--- OUTSIDE RECORDS SUMMARY | 2025-02-12 18:21 | XMS_ITS | Encounter Summary ---
Author Organization [employer] Address [address] [place] [address] 7 [place] [address] Care Team Providers Care Manager Garage Name Role Phone Ally Ferreira MD Primary Care Pro vider Reason for Visit * Reason Onset Date Comments c/b request 01/19/2023 Encounter Details Date Type Department Care Team ([facility] st Contact Info) Description 01/19/2023 Telephone [facility] [address] [place] [address] Ally Ferreira MD [address] [place] [address] c/b request Social History Tobacco Use Types [...] transplant denial. Patient states it was at [facility] that it was denied, due to vascular problems. * Telephone Encounter - Yasmin Krishna RN - 01/23/2023 10:59 AM EDT Telephone call to regarding the following message from Dr. Perry : Please can you check with pt denial was from [facility] or from [facility]? No answer. Message was left to return call to the green team nurses. * Telephone Encounter - Jacinta Porras - 01/19/2023 1:45 PM EDT Tc from pt advising PCP pt was denied for kidney transplant. Please contact pt at [phone] documented in this encounter Plan of Treatment Upcoming Encounters Date Type Department Care Team (Late st Contact Info) Description 06/02/2025 1:00 PM EST Office Visit [facility] [address] [place], [place] [address] Abelardo, Antoinette, OD [address] [place], [place] [phone] documented as of this encounter Visit Diagnoses Not on filedocumented in this encounter Additional Health Concerns Assessment Noted Time PHQ-9 Depression Total Score: 0 08/11/19 23 9:11 AM EDT documented as of this encounter Care Teams Manager Garage Relationship Specialty Start Date End Date Ally Ferreira MD [address] [place], [place] [phone] PCP - General Internal Medicine [facility] documented as of this encounter
--- OUTSIDE RECORDS SUMMARY | 2025-02-12 18:21 | XMS_ITS | Encounter Summary ---
Author Organization [email or web address] Address [address] [place] [address] [address] [place] [address] Care Team Providers Care Printed Circuit Board Panels Deburrer Name Role Phone Ally Ferreira MD Primary Care Pro vider Reason for Visit * Reason Comments Med Refill Encounter Details Date Type Department Care Team (Late Contact Info) Description 09/02/2022 Refill [facility] [address] [place], [place] [phone] Ally Ferreira MD [address] [place] [address] Social History Tobacco Use Types Packs/Day Years [...] Department Care Team (Late Contact Info) Description 06/02/2025 1:00 PM EST Office Visit [facility] [address] [place] [address] Antoinette Zhou, OD [address] [place], [place] [phone] documented as of this encounter Visit Diagnoses Not on filedocumented in this encounter Additional Health Concerns Assessment Noted Time PHQ-9 Depression Total Score: 0 08/11/19 9:11 AM EDT documented as of this encounter Care Teams Printed Circuit Board Panels Deburrer Relationship Specialty Start Date End Date Ally Ferreira MD [address] [place], [place] [phone] PCP - General Internal Medicine 07/25/22 [facility] documented as of this encounter
--- OUTSIDE RECORDS SUMMARY | 2025-02-12 18:21 | XMS_ITS | Encounter Summary ---
Author Organization [employer] Address [address] [place] [address] Care Team Providers Care Truck Rental Service Attendant Name Role Phone Ally Ferreira MD Primary Care Pro vider Reason for Visit * Reason Comments Med Refill Encounter Details Date Type Department Care Team ([facility] Contact Info) Description 09/02/2022 Refill [facility] [address] [place], [place] [phone] Blair Lopez AGNP Hypertension, unspecified type Social [...] Upcoming Encounters Date Type Department Care Team ([facility] Contact Info) Description 06/02/2025 1:00 PM EST Office Visit [facility] [address] [place], [place] [phone] Antoinette Zhou, OD [address] [place] [address] documented as of this encounter Visit Diagnoses Diagnosis Hypertension, unspecified type documented in this encounter Additional Health Concerns Assessment Noted Time PHQ-9 Depression Total Score: 0 08/11/19 23 9:11 AM EDT documented as of this encounter Care Teams Truck Rental Service Attendant Relationship Specialty Start Date End Date Ally Ferreira MD [address] [place] [address] PCP - General Internal Medicine 07/25/22 [facility] 12/25/24 documented as of this encounter
--- OUTSIDE RECORDS SUMMARY | 2025-02-12 18:21 | XMS_ITS | Clinical Summary ---
Author Organization Located Within [facility] Address [address] [place] [address] Phone Care Team Providers Care Staffing Clerk Name Role Phone Ally Ferreira MD [...] Active ferrous sulfate 325 mg (65 mg [place] iron) tablet Take 1 tablet (325 mg [...] will defer to medicine if need for STAFF INTERPRETER eval. Assessment & Plan (12/31/2024 3:49 PM EDT): Natali's last H&H from [facility] on the was 7.5 and 23.4. [...] (12/31/2024 10:22 AM EDT): Unclear source, possible STAFF INTERPRETER related medicine on board broaden differential possible need of CT scan rule out retroperitoneal hematoma. Assessment & Plan (12/30/2024 8:53 AM EDT): Multifactorial with occult GI bleed playing a role going for EGD this morning. Assessment & Plan (12/31/2024 1:07 AM EDT): Natali's last H&H from [facility] on the was 7.5 and 23.4. [...] 10:54 AM EDT): Natali's last H&H from [facility] on the was 7.5 and 23.4. [...] 0.25 mcg MWF - Renal diet - [facility] ID recommending IV cefepime 2 gm with/after HD x 6 weeks (end date of 01/23/25). -Follows closely with vascular surgery at [facility]. - Outpatient f/u with Vascular re fistula creation - please dose reduce antibiotics/medications as appropriate for eGFR -Discharged to follow-up with her outpatient nephrology team [facility] ID and vascular surgery. Assessment & [...] 0.25 mcg MWF - Renal diet - [facility] ID recommending IV cefepime 2 gm with/after HD x 6 weeks (end date of 01/23/25). -Follows closely with vascular surgery at [facility]. - Outpatient f/u with Vascular re fistula creation - please dose reduce antibiotics/medications as appropriate for eGFR -Discharged to follow-up with her outpatient nephrology team [facility] ID and vascular surgery. Assessment & Plan (12/30/2024 8:53 AM EDT): Continue HD on MWF schedule patient is signed consent hepatitis B surface antigen , plan to dialyze tomorrow. - Continue above antihypertensives - Continue sevelamer 3200 mg TID, Sensipar 30 mg MWF, and calcitriol 0.25 mcg MWF - Renal diet - [facility] ID recommending IV cefepime 2 gm with/after HD x 6 weeks (end date of 01/23/25). Arranged at outpatient HD unit on 12/22. -Follows closely with vascular surgery at [facility]. - Outpatient f/u with Vascular re fistula creation - please dose reduce antibiotics/medications as appropriate for eGFR -Discharged to follow-up with her outpatient nephrology team [facility] EDISON and vascular surgery. Assessment & [...] follows with ID and vascular surgery at [facility] if need be may benefit from [...] follows with ID and vascular surgery at [facility] if need be may benefit from transferring for further care. Assessment & Plan (12/31/2024 5:06 AM EDT): 34-year-old female with type 1 diabetes and end-stage renal disease on dialysis with known diabetic foot wounds that are being actively managed by [facility] infectious disease and vascular surgery. Patient currently receiving cefepime 3 times a week with dialysis and has reportedly an appointment tomorrow the with [facility] infectious disease. Patient notes that the wound appears much improved from her recent hospitalization at [facility]. 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 We discussed potential surgical debridement as well as her past discussions with her surgical team regarding potential BKA. At this time patient states that any surgical intervention she would want performed by her primary surgical team at [facility]. Recommendations- Continue local wound care and IV abx. Follow up with her primary surgical/infection disease team at [facility] as scheduled. Assessment & Plan (12/30/2024 8:53 AM EDT): Evaluation follows with ID and vascular surgery at [facility] if need be may benefit from [...] insulin. They use that briefly while at [facility] but then had her return to her pump. She has supplies and has been using her pump while here. Peripheral vascular disease 10/14/2021 Encounters Date Type Department Care Team Description 01/08/2025 Refill [facility] [address] [place] [address] Kiet Hidalgo MD Med Change Request 01/01/2025 Refill [facility] [address] [place] [address] Kiet Hidalgo MD Med Change Request 12/31/2024 Procedure Pass [facility], Ct Scan - [address] [address] 12/30/2024 12:45 PM EDT - 12/30/2024 1:00 PM EDT Surgery [facility] Endoscopy Admitting Dept Virtual Department [address] [place] [address] Dany Quintero MD ESOPHAGOGASTRODUODENOSCOPY 12/30/2024 9:35 AM EDT Anesthesia Event [facility] Admitting Dept Virtual Department [address] [place] [address] Ney Krishnamurthy MD 12/30/2024 Procedure Pass [facility] Endoscopy Admitting Dept Virtual Department [address] [place] [address] 12/29/2024 2:52 AM EDT - 01/01/2025 12:38 PM EDT Hospital Encounter [facility] [address] [place] [address] Ximena Kang MD Hampson, Brian S, Isiah [...] Glucose, POCT 105(H) 70 - 100 mg/dL [facility] 01/01/2025 7:46 AM EDT 01/01/2025 7:48 AM EDT us Kiet Hidalgo MD POINT OF CARE TEST ORDERABL ES Final Result [address] [id number] * (ABNORMAL) Comprehensive metabolic panel (01/01/2025 5:32 AM EDT) Only the most recent of2 resultswithin the time period is included. [facility] SODIUM 137 133 - 146 mmol/L [facility] POTASSIUM 4.2 3.3 - 5.1 mmol/L [facility] CHLORIDE 96 96 - 108 mmol/L [facility] CO2 23 21 - 35 mmol/L [facility] BUN 26(H) 6 - 19 mg/dL [facility] CREATININE 5.80(H) 0.5 - 1.5 mg/dL [facility] GLUCOSE 111(H) 70 - 99 mg/dL [facility] ALBUMIN 3.8(L) 3.9 - 4.8 g/dL [facility] TOTAL PROTEIN 8.3(H) 6.5 - 8.0 g/dL [facility] CALCIUM 9.6 8.4 - 10.3 mg/dL [facility] ALKALINE PHOSPHATASE 117 39 - 117 U/L [facility] TOTAL BILIRUBIN 0.3 0.0 - 1.2 mg/dL [facility] AST 17 0 - 37 U/L [facility] ALT 10 0 - 40 U/L [facility] GLOBULIN 4.5 1 - 4.8 g/dL [facility] EGFR 9(L) >59 mL/min/1.7 3m2 [facility] Comment:Estimated glomerular filtration rate calculated using the CKD-EPI refit equation. ANION GAP 22(H) 10 - 20 mmol/L [facility] Blood 01/01/2025 5:32 AM EDT 01/01/2025 6:41 AM EDT Isiah Brooks MD LAB BLOOD ORDERABLES Final R esult Performing Organization Address [facility] Co de Phone Number [address] [address] * (ABNORMAL) CBC (01/01/2025 5:32 AM EDT) Only the most recent of4 resultswithin the time period is included. WBC 21.45(H) 4.00 - 11.00 K/uL [facility] RBC 3.01(L) 4.00 - 5.20 M/uL [facility] HGB 9.1(L) 12.0 - 16.0 g/dL [facility] Comment:Patient transfused. HCT 28.1(L) 36.0 - 46.0 % [facility] PLT 367 150 - 450 K/uL [facility] MCV 93.4 80.0 - 100.0 fL [facility] MCH 30.2 27.0 - 31.0 pg [facility] MCHC 32.4 32.0 - 36.0 g/dL [facility] RDW 15.5(H) 11.5 - 14.5 % [facility] MPV 11.1 8.4 - 12.0 fL [facility] NRBC 0.00 0.00 /100 WBCs [facility] ABSOLUTE NRBC 0.00 0.00 K/uL [facility] Blood 01/01/2025 5:32 AM EDT 01/01/2025 6:41 AM EDT Isiah Brooks MD LAB BLOOD ORDERABLES Final R esult Performing Organization Address City/[facility]/ZIP Co de Phone Number [address] [address] * (ABNORMAL) Phosphorus (01/01/2025 5:32 AM EDT) Only the most recent of2 resultswithin the time period is included. PHOSPHORUS 6.4(H) 2.7 - 4.5 mg/dL [facility] Blood 01/01/2025 5:32 AM EDT 01/01/2025 6:41 AM EDT Isiah Brooks MD LAB BLOOD ORDERABLES Final R esult Performing Organization Address [facility] de Phone Number [address] [address] * Magnesium (01/01/2025 5:32 AM EDT) Only the most recent of3 resultswithin the time period is included. MAGNESIUM 2.6 1.6 - 2.6 mg/dL [facility] Blood 01/01/2025 5:32 AM EDT 01/01/2025 6:41 AM EDT Isiah Brooks MD LAB BLOOD ORDERABLES Final R esult Performing Organization Address [facility] de Phone Number [address] [address] * Transfuse RBC (12/31/2024 9:30 PM EDT) Only the most recent of4 resultswithin the time period is included. Kiet Hidalgo MD NURSING TREATMENT ORDERABLE S - BLOOD ADMIN Final Result Performing Organization Address [facility] de Phone Number [facility] * CT ABDOMEN/PELVIS [...] clinician's provided indication for this examination in [facility]: * Anemia; recent drop in H/H [...] clinician's provided indication for this examination in [facility]: *Anemia; recent drop in H/H without [...] Quintero MD - 12/30/2024 9:30 AM EDT [facility] Patient Name: Natali Mtz Attending MD:: DANY QUINTERO MD, , Procedure Date: 12/30/2024 9:30 AM Date of : 1990 Age: 34 Admit Type: Outpatient Gender: Female Room: [place] [address] Referring MD: Ally Ferguson Exam Type: Upper [...] 9:30 AM Procedure Code(s): --- Professional --- 01978, Esophagogastroduodenoscopy, flexible, transoral; diagnostic, including collection of specimen(s) by brushing or washing, when performed (separate procedure) --- Technical --- 91374, Esophagogastroduodenoscopy, flexible, transoral; diagnostic, including collection of [...] secondary to bloodloss (chronic) CPT copyright 2021 [employer]. All rights reserved. The codes documented in this report are preliminary and upon branch sales manager reviewmay be revised to meet current compliance requirements. Procedure Date: 12/30/2024 9:30:[address] [place] [address] us Ally Ferguson MD GI PROCEDURE ORDMarcello CONLEY Final Result * (ABNORMAL) Basic metabolic panel (12/30/2024 6:29 AM EDT) Only the most recent of3 resultswithin the time period is included. SODIUM 133 133 - 146 mmol/L [facility] CHLORIDE 96 96 - 108 mmol/L [facility] POTASSIUM 5.3(H) 3.3 - 5.1 mmol/L [facility] Comment:Specimen slightly he molyzed, result may be falsely elevated. CO2 21 21 - 35 mmol/L [facility] BUN 32(H) 6 - 19 mg/dL [facility] CREATININE 6.50(HH) 0.5 - 1.5 mg/dL [facility] Comment: Critical value: Results called to and read back by: HENNY Vázquez RN, 0800,[facility] GLUCOSE 89 70 - 99 mg/dL [facility] CALCIUM 9.4 8.4 - 10.3 mg/dL [facility] EGFR 8(L) >59 mL/min/1.7 3m2 [facility] Comment:Estimated glomerular filtration rate calculated using the CKD-EPI refit equation. ANION GAP 21(H) 10 - 20 mmol/L [facility] Blood 12/30/2024 6:29 AM EDT 12/30/2024 7:09 AM EDT us Kiet Hidalgo MD LAB BLOOD ORDERABLES Final Result [address] [address] * (ABNORMAL) Fecal immunochemical test x1 (FIT) (12/29/2024 12:33 PM EDT) Immuno Fecal Occult Positive(A ) Negative [facility] Stool (Stool) 12/29/2024 12: 33 PM EDT 12/29/2024 1:00 PM EDT us Kiet Hidalgo MD BODY FLUIDS AND STOOLS YARA CONLEY Final Result [facility] [address] [place] [address] * (ABNORMAL) CBC and differential (12/29/2024 9:17 AM EDT) Only the most recent of2 resultswithin the time period is included. WBC 18.82(H) 4.00 - 11.00 K/uL [facility] RBC 1.69(L) 4.00 - 5.20 M/uL [facility] HGB 5.1(LL) 12.0 - 16.0 g/dL [facility] Comment: Repeated and verified Checked sample for clots This result has been called to Peter Armendariz by [email or web address] on 12/29/2024 10:51:33, and has been read back. HCT 15.7(L) 36.0 - 46.0 % [facility] PLT 297 150 - 450 K/uL [facility] MCV 92.9 80.0 - 100.0 fL [facility] MCH 30.2 27.0 - 31.0 pg [facility] MCHC 32.5 32.0 - 36.0 g/dL [facility] RDW 17.0(H) 11.5 - 14.5 % [facility] MPV 11.7 8.4 - 12.0 fL [facility] NRBC 0.00 0.00 /100 WBCs [facility] ABSOLUTE NRBC 0.00 0.00 K/uL [facility] DIFF METHOD Auto [facility] NEUTS 76.6(H) 48.0 - 76.0 % [facility] LYMPHS 10.1(L) 18.0 - 41.0 % [facility] MONOS 7.6 4.0 - 11.0 % [facility] EOS 3.9 0.0 - 5.0 % [facility] BASOS 0.4 0.0 - 1.5 % [facility] Granulocytes, immature (%) 1.4(H) 0.0 - 0.9 % [facility] ABSOLUTE NEUTS 14.41(H) 1.92 - 7.60 K/uL [facility] ABSOLUTE LYMPHS 1.91 0.72 - 4.10 K/uL [facility] ABSOLUTE MONOS 1.43(H) 0.16 - 1.10 K/uL [facility] ABSOLUTE EOS 0.73(H) 0.00 - 0.50 K/uL [facility] ABSOLUTE BASOS 0.08 0.00 - 0.15 K/uL [facility] Granulocytes, immature 0.26(H) 0.00 - 0.09 K/uL [facility] Blood 12/29/2024 9:17 AM EDT 12/29/2024 9:31 AM EDT us Nadir Galeana MD LAB BLOOD ORDERABLES Final Resul t Performing Organization Address City/[facility] Co de Phone Number [address] [address] * Hepatitis B surface antigen (12/29/2024 8:07 AM EDT) HBV SURFACE ANTIGEN NON-REACTI VE NON-REACTI VE [facility] Blood 12/29/2024 8:07 AM EDT 12/29/2024 9:29 AM EDT us Nadir Galeana MD LAB BLOOD ORDERABLES Final Resul t Performing Organization Address [facility] Co de Phone Number [address] [address] * (ABNORMAL) Haptoglobin (12/29/2024 8:07 AM EDT) HAPTOGLOBIN 244(H) 30 - 200 mg/dL [facility] 12/29/2024 8:07 AM EDT 12/29/2024 9:29 AM EDT us Nadir Galeana MD LAB BLOOD ORDERABLES Final Resul t Performing Organization Address City/[facility]/ZIP Co de Phone Number [address] [address] * Blood Culture, Routine (12/29/2024 6:26 AM EDT) Only the most recent of2 resultswithin the time period is included. Special Requests None 12/29/2024 5:22 AM EDT [facility] BLOOD CULTURE NO GROWTH 5 DAYS 01/03/2025 7:01 AM EDT [facility] Blood (Blood) 12/29/2024 6:2 6 AM EDT 12/29/2024 6:43 AM EDT Ximena Kang MD MICROBIOLOGY - GENERAL ORDER LULA Final Result Performing Organization Address [facility] Co de Phone Number [address] [address] * (ABNORMAL) Troponin (12/29/2024 6:26 AM EDT) Only the most recent of2 resultswithin the time period is included. Troponin-T, HS Gen5 154(H) 0 - 9 ng/L [facility] Blood 12/29/2024 6:26 AM EDT 12/29/2024 6:47 AM EDT Ximena Kang MD LAB BLOOD ORDERABLES Final R esult Performing Organization Address [facility] Co de Phone Number [address] [address] * Lactate (12/29/2024 6:26 AM EDT) LACTATE 1.87 0.50 - 2.20 mmol/L [facility] Blood 12/29/2024 6:26 AM EDT 12/29/2024 6:35 AM EDT Ximena Kang MD LAB BLOOD ORDERABLES Final R esult Performing Organization Address [facility] Co de Phone Number [address] [address] * (ABNORMAL) LFTs (hepatic panel) (12/29/2024 5:13 AM EDT) ALKALINE PHOSPHATASE 108 39 - 117 U/L [facility] TOTAL BILIRUBIN 0.4 0.0 - 1.2 mg/dL [facility] DIRECT BILIRUBIN <0.1 0.0 - 0.2 mg/dL [facility] Bilirubin (Indirect) NOT CALCULATED 0 - 1.5 mg/dL [facility] AST 21 0 - 37 U/L [facility] ALT 14 0 - 40 U/L [facility] TOTAL PROTEIN 7.9 6.5 - 8.0 g/dL [facility] ALBUMIN 3.8(L) 3.9 - 4.8 g/dL [facility] GLOBULIN 4.1 1 - 4.8 g/dL [facility] A/G Ratio 0.93(L) 1.00 - 4.80 RATIO [facility] 12/29/2024 5:13 AM EDT 12/29/2024 5:51 AM EDT us Ximena Kang MD LAB BLOOD ORDERABLES Final R esult [address] [address] * Type and Screen (ABO,Rh,Antibody Screen) (12/29/2024 5:13 AM EDT) ABO/Rh O Positive [facility] Antibody Screen Negative [facility] Expiration Date of Sample 01/01/2025,2 359 [facility] Unit Number [id number] [facility] Component Type RBC LR [facility] Product Code [id number] [facility] Unit Division 00 [facility] Product Status ISSUED,FINAL [facility] Unit Number [id number] [facility] Component Type APHER RBC LR C2 [facility] Product Code [id number] [facility] Unit Division 00 [facility] Product Status [facility]UED,[facility] Unit Number [id number] 7 [facility] Component Type APHER RBC LR C1 [facility] Product Code [id number] [facility] Unit Division 00 [facility] Product Status ISSUED,[facility] Unit Number [id number] [facility] Component Type RBC LR [facility] Product Code [id number] [facility] Unit Division 00 [facility] Product Status ISSUED,FINAL [facility] Resulting Agency [facility] Blood 12/29/2024 5:13 AM EDT 12/29/2024 5:53 AM EDT us Ximena Kang MD BLOOD BANK TEST ORDERABLES F inal Result [facility] [address] [place] [address] * XR FOOT 3 OR MORE VIEWS [...] clinician's provided indication for this examination in [facility]: Infection COMPARISON: None. Procedure Note Uriel [...] clinician's provided indication for this examination in [facility]: Dyspnea (Shortness of Breath) COMPARISON: CT [...] clinician's provided indication for this examination in [facility]:Dyspnea (Shortness of Breath) COMPARISON: CT chest [...] BPM [facility] Atrial Rate 100 [facility] WY Interval 122 ms [facility] QRS Duration 76 ms [facility] QT Interval 368 ms [facility] QTC Interval 474 ms [facility] P Palmer 54 degrees [facility] R Wave Palmer -2 degrees [facility] T Wave Palmer 63 degrees [facility] 12/29/2024 3:14 AM EDT 12/29/2024 8:44 AM EDT Narrative [facility] - 12/29/2024 8:44 AM EDT Normal sinus rhythm Normal ECG No previous ECGs available Confirmed by José Tian ([id number]) on 12/29/2024 8:44:23 AM Ximena Kang MD ECG ORDERABLES Final Result Performing Organization Address City/[facility] Co de Phone Number [email or web address] * COVID Pandemic Respiratory Viral Order (PRO) (12/29/2024 3:14 AM EDT) Test Ordered Rapid COVID has been ordered [facility] Specimen Source/Description NASAL [facility] SARS-CoV 2 (COVID-19) PCR Not Detected Not Detected [facility] Comment: SARS-CoV-2 not detected Negative results do not preclude SARS-CoV-2 infection and should not be used as the sole basis for patient management decisions. Negative results must be combined with clinical observations, patient history, and epidemiological information. Other (Nasopharyngeal swab) 12/29/2024 3:14 AM EDT 12/29/2024 3:29 AM EDT Ximena Kang MD BODY FLUIDS AND STOOLS ORDER LULA Final Result Performing Organization Address City/[facility]/ZIP Co de Phone Number [address] [address] * HCG, serum qualitative (12/29/2024 3:12 AM EDT) HCG, QUALITATIVE Negative Negative IU/L [facility] Blood 12/29/2024 3:12 AM EDT 12/29/2024 3:30 AM EDT Ximena Kang MD LAB BLOOD ORDERABLES Final R esult [address] [address] * (ABNORMAL) PT-INR (12/29/2024 3:12 AM EDT) Pathologist [facility] PT 13.9(H) 10.2 - 12.9 sec [facility] INR 1.1 0.9 - 1.1 [facility] Comment:Therapeutic range fo r oral Vitamin K antagonists: 2.0-3.5 Blood 12/29/2024 3:12 AM EDT 12/29/2024 3:30 AM EDT Ximena Kang MD LAB BLOOD ORDERABLES Final R esult Performing Organization Address [facility]/ZIP Co de Phone Number [address] [address] * (ABNORMAL) C-Reactive Protein (12/29/2024 3:12 AM EDT) Pathologist [facility] C REACTIVE PROTEIN 45.9(H) 0.0 - 4.0 mg/L [facility] Blood 12/29/2024 3:12 AM EDT 12/29/2024 3:30 AM EDT Ximena Kang MD LAB BLOOD ORDERABLES Final R esult Performing Organization Address City/[facility]/ZIP Co de Phone Number [address] [address] * (ABNORMAL) NT-proBNP (12/29/2024 3:12 AM EDT) NT-PROBNP 12,850(H) 0 - 125 pg/mL [facility] Blood 12/29/2024 3:12 AM EDT 12/29/2024 3:30 AM EDT Ximena Kang MD LAB BLOOD ORDERABLES Final R esult Performing Organization Address City/[facility]/ZIP Co de Phone Number [address] [address] * 2nd Type (New Sample) (12/29/2024 3:10 AM EDT) Pathologist [facility] ABO/Rh O Positive [facility] Resulting Agency [facility] 12/29/2024 3:10 AM EDT 12/29/2024 6:07 AM EDT Ximena Kang MD BLOOD BANK TEST ORDERABLES F inal Result Performing Organization Address [facility] Co de Phone Number [address] [address] * Hepatitis C antibody, qualitative (10/13/2021 12:35 PM EDT) Pathologist [facility] HCV ANTIBODY Negative Negative [facility] Comment:Antibodies to HCV no t detected. Does not exclude the possibility of exposure to HCV. 10/13/2021 12:3 5 PM EDT 10/13/2021 3:41 PM EDT Alysha Gong MD LAB BLOOD ORDERABLES Final Result Performing Organization Address City/[facility]/ZIP Co de Phone Number [address] [address] * (ABNORMAL) Hemoglobin A1c (10/13/2021 12:35 PM EDT) HEMOGLOBIN A1C 11.0(H) 4.3 - 5.6 % [facility] Comment:HbA1c levels 5.7-6.4 % represent pre-diabetes, indicating impaired glucose control and an increased risk of developing diabetes compared with lower HbA1c levels. The diagnostic HbA1c level for diabetes is 6.5% or greater. CALC MEAN BLD GLUC 269 mg/dL [facility] Comment:There is no establis hed normal [...] Gong MD LAB BLOOD ORDERABLES Final Result [facility] [address] [place] [address] from Last 3 Months or Most Recently Relevant to Health Maintenance Insurance MEDICARE PART A & B [facility] MEDICARE PART A & B [place] PART A & B [facility] MEDIC[facility] PART A & [facility] [place] [phone] MEDICARE PART [place] [address] MEDICARE PART A & B [facility] [place] [address] MEDICARE PART A & B [facility] MEDICARE PART A & B [facility] MEDICARE PART A & B [place] A & B [facility] [place] [phone] Advance Directives For more information, please contact: [phone] (9AM - 5PM [facility], Sunday-Sunday) * Full Code (Latest Code Status on File) Date Activated Date Inactivated Comments 12/30/2024 9:55 AM Question Answer Comments Code Status Confirmed With: Patient Care Teams Staffing Clerk Relationship Specialty Start Date End Date Ally Ferreira MD [address] [place] [id number] PCP - General Internal Medicine 12/29/24 Additional Source Comments The information contained in this document represents components of the legal health record. It is not the complete legal health record.Located Within [facility]
--- OUTSIDE RECORDS SUMMARY | 2025-02-12 18:21 | XMS_ITS | Clinical Summary ---
Author Organization [facility] Address [address] [place] [address] Care Team Providers Care Core Blower Operator Name Role Phone Ally Ferreira Primary Care Provider [phone] Allergies Active Allergy Reactions Criticality Noted Date [...] 1 each 3 3 Active Dexcom G6 Disbursement Clerk misc Use as directed. E10.65 1 each [...] Encounters Date Type Department Care Team Description 02/05/2025 11:00 AM EDT Follow-Up [facility] Renal Transplant [address] [place] [address] Vinicio Harris MD 02/05/2025 10:15 AM EDT Social Work [facility] Renal Transplant [address] [place] [address] Michelet Swartz 02/05/2025 9:30 AM EDT Follow-Up [facility] Renal Transplant [address] [place] [address] Antolin Cortes MD PhD ESRD (end stage renal disease) (Primary Dx); Peripheral vascular disease 02/02/2025 Orders Only [facility] Transplant Department [address] [place] [address] Sabina Velázquez, RUTH ANN ESRD (end stage renal disease) (Primary Dx); Pre-transplant evaluation for kidney transplant 02/02/2025 Telephone [facility] Transplant Department [address] [place] [address] Sabina Velázquez, RUTH ANN 01/29/2025 Orders Only [facility] Transplant Department [address] [place] [address] Sabina Velázquez, RUTH ANN ESRD (end stage renal disease) (Primary Dx); Pre-transplant evaluation for kidney transplant 12/22/2024 Telephone [facility] Transplant Department [address] [place] [address] Sabina Velázquez, RUTH ANN 12/06/2024 myChart Message [facility] Renal Transplant [address] [place] [address] Sabina Velázquez, RUTH ANN Your Recent Visit 11/20/2024 Orders Only [facility] Vascular Surgery [address] [place] [address] Nurses' Association Executive Director: Marilin Lane MD PAD (peripheral artery disease) (Primary Dx) from Last 3 Months Immunizations Immunization Administration Dates Next Due Covid-19 Monovalent Vaccine, Moderna, mRNA, PF 07/09/2020,05/26/2020 [id number] 05/05/1993,02/22/1993,12/22/1992 Diphtheria, Tetanus Toxoids and Acellular Pertussis [...] Sign Reading Time Taken Comments Blood Pressure 129/78 02/05/2025 9:57 AM EDT Pulse 80 02/05/2025 9:57 AM EDT Temperature 36.9 C (98.4 F) 02/05/2025 9:57 AM EDT Respiratory Rate 18 02/05/2025 9:57 AM EDT Oxygen Saturation 99% 02/05/2025 9:57 AM EDT Inhaled Oxygen Concentration - - Weight 64 kg (141 lb 1.5 oz) 02/05/2025 9:57 AM EDT Height 154.9 cm (5' 1 ) 02/27/2024 2:48 PM EST Body Mass Index 26.66 02/27/2024 2:48 PM EST Plan of Treatment Upcoming Encounters Date Type Department Care Team (Late st Contact Info) Description 02/02/2026 10:40 AM EDT Follow-Up [facility] Renal Transplant [address] [place] [address] Vinicio Harris MD [address] [place] [address] 02/02/2026 11:00 AM EDT Social Work [facility] Renal Transplant [address] [place] [address] Chani Vargas LICSW [address] [place], [place] [phone] Health Maintenance Due Date Last Done Comments HPV and Pap Smear 1991 Medicare AWV 09/09/1992 Ophthalmology Exam 09/09/2001 Alcohol/Substance Use Screening 04/16/2024 Depression Screening and Follow-Up 04/16/2024 Social Drivers of Health Kalie ual Screening 04/16/2024 COVID-19 Vaccine (2024-2 6 season) 2024 05/13/2024, 06/12/2023, 01/26/2022, Additional history exists Hemoglobin A1C 05/02/2025 01/30/2025, [...] Completed 12/02/2024, 11/14, 09/06/2023, Additional history exists Influenza Vaccine Completed 01/07/2025, , 01/11/2023, Additional history exists Procedures * Due to [place] [employer] law, this organization might not be sharing negative HIV tests. Procedure Name Priority Date/Time Associated Diagnosis Comments HLA MONTHYLY ANTIBODY IDENTIFICATION - CLASS II Routine 01/30/2025 8:00 AM EDT ESRD (end stage renal disease) Pre-transplant evaluation for kidney transplant HLA MONTHLY ANTIBODY IDENTIFICATION - CLASS I Routine 01/30/2025 8:00 AM EDT ESRD (end stage renal disease) Pre-transplant evaluation for kidney transplant POCT GLYCOSYLATED HEMOGLOBIN (HGB A1C) Routine 02/27/2023 1:05 PM EST BASIC METABOLIC PANEL, OUTSIDE LAB Routine 11/21/2022 HEPATITIS C ANTIBODY W/REFLEX TO HCV RNA, QUANTITATIVE PCR Routine 11/30/2020 11:09 AM EDT ESRD (end stage renal disease) on dialysis Pre-transplant evaluation for kidney transplant from Last 3 Months or Most Recently Relevant to Health Maintenance Results * Due to [place] [employer] law, this organization might not be sharing negative HIV tests. * (ABNORMAL) POCT Glycosylated Hemoglobin (HGB A1C), interfaced (02/27/2023 1:05 PM EST) Hemoglobin A1C, POCT 10.6(H) <=5.6 % 02/27/2023 1:20 PM EST [facility], POC Comment: A1C Recommendation for Non- Adults with Diabetes: <7.0% ADA 2011 Standards of Medical Care in Diabetes Blood 02/27/2023 1:05 PM EST 02/27/2023 1:20 PM EST us Robert Meredith MD LAB POCT ORDERABLES - DEVICE Final Result Performing Organization Address [facility]/State/ZIP Co de Phone Number [facility], POC [address] [place] [address], [place] * (ABNORMAL) Basic Metabolic Panel, Outside [...] NON-REACT JOSE RAFAEL 12/01/2020 8:37 AM EDT Spor Signal To Cut-Off 0.02 <1.00 12/01/2020 8:37 AM EDT Spor Comment: HCV antibody was non-reactive. There is no laboratory evidence of HCV infection. In most cases, no further action is required. However, if recent HCV exposure is suspected, a test for HCV RNA (test code 27363) is suggested. For additional information please refer to http://education.MusicNow/faq/CHB17l1 (This link is being provided for informational/ educational purposes only.) Blood Structure of peripheral vein / Unknown Venipuncture / Unknown 11/30/2020 11:09 AM EDT 11/30/2020 11:33 AM EDT Narrative [facility] - 12/01/2020 8:37 AM EDT [facility] Received Date: us Stefan Robbins MD LAB BLOOD ORDERABLES Final Result [facility] [place] [address], [address] [place] [address], [place] [phone] [facility] [address], [address] [place] [address], [place] [phone] from Last 3 Months or Most Recently Relevant to Health Maintenance Insurance MEDICARE Member Subscriber Plan / Payer (Ef fective 2020-Present) Name:[employer] Member ID:[id number] Relation to Subscriber:Self Name:[employer] Subscriber ID:[id number] Payer ID:[id number] Group ID:Not on file Type:Not on file Address: [address] MEDICARE 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
--- OUTSIDE RECORDS SUMMARY | 2025-02-12 18:21 | XMS_ITS | Encounter Summary ---
Author Organization [facility] Address [address] [place] [address] Phone Care Team Providers Care Tetryl Blender Operator Name Role Phone Azucena Bradley MD Primary Care Provider [phone] Reason for Visit * Reason Comments Med Refill Encounter Details Date Type Department Care Team (Late st Contact Info) Description 06/14/2021 Refill [facility] [address] [place] [address] Forrest Adamson MD Social History Tobacco [...] on filedocumented in this encounter Care Teams Tetryl Blender Operator Relationship Specialty Start Date End Date Azucena Bradley MD [address] [place] [address], [facility] [address] [place] [address] PCP - General Internal Medicine 01/22/24 documented as of this encounter
--- OUTSIDE RECORDS SUMMARY | 2025-02-12 18:21 | XMS_ITS | Encounter Summary ---
Author Organization [facility] Address [address] [place] [address] Care Team Providers Care Second Worker Name Role Phone Ally Ferreira Primary Care Provider [phone] Encounter Details Date Type Department Care Team (Late Contact Info) Description 02/22/2024 Orders Only [facility] Nuclear Medicine [address] [place] [address] Victor Manuel Corado MD PhD [address] [place] [address] Social History Tobacco Use Types Packs/Day Years [...] Info) Description 02/02/2026 10:40 AM EDT Follow-Up [facility] Renal Transplant [address] [place] [address] Vinicio Harris MD [address] [place] [address] 02/02/2026 11:00 AM EDT Social Work [facility] Renal Transplant [address] [place] [address] Chani Vargas, [address] [address] documented as of this encounter Visit Diagnoses Not on filedocumented in this encounter Care Teams Second Worker Relationship Specialty Start Date End Date Ally Ferreira [address] [place] [address] PCP - General 02/04/24 documented as of this encounter
--- OUTSIDE RECORDS SUMMARY | 2025-02-12 18:21 | XMS_ITS | Encounter Summary ---
Author Organization [employer] Address [address] [place] [address] Care Team Providers Care Enterprise Mobility Architect Name Role Phone Viri Wall Primary Care Provider [phone] Ally Ferreira MD Primary Care Pro vider Reason for Visit * Reason Comments Med Refill Encounter Details Date Type Department Care Team (Late st Contact Info) Description 06/06/2022 Refill [facility] MEDICINE [address] [place], [place] [phone] Name, MD Dain [address] [place], [place] [phone] Primary hypertension (Primary Dx) Social History Tobacco [...] Description 06/02/2025 1:00 PM EST Office Visit [facility] OPTOMETRY [address] [place] [address] Antoinette Zhou, OD [address] [place], [place] [phone] documented as of this encounter Visit Diagnoses Diagnosis Primary hypertension- Primary Unspecified essential hypertension documented in this encounter Care Teams Enterprise Mobility Architect Relationship Specialty Start Date End Date Viri Wall FNP [address] [place], [place] [phone] PCP - General Family Medicine 06/06/22 07/24/22 Ally Ferreira MD [address] [place], [place] [phone] PCP - General Internal Medicine 07[facility]22 [facility] documented as of this encounter
--- OUTSIDE RECORDS SUMMARY | 2025-02-12 18:21 | XMS_ITS | Encounter Summary ---
Author Organization [employer] Address [address] [place] [address] Care Team Providers Care Recycling Operator Name Role Phone Ally Ferreira MD Primary Care Pro vider Reason for Visit * Reason Comments Med Refill Encounter Details Date Type Department Care Team ([facility] st Contact Info) Description 11/09/2024 Refill [facility] MEDICINE [address] [place], [place] [phone] Kaur Hernandez MD [address] [place] [address] Hypertension, unspecified type Social History Tobacco Use [...] Description 06/02/2025 1:00 PM EST Office Visit [facility] OPTOMETRY [address] [place], [place] [phone] Antoinette Zhou, OD [address] [place] [address] documented as of this encounter Visit Diagnoses Diagnosis Hypertension, unspecified type documented in this encounter Additional Health Concerns Assessment Noted Time PHQ-9 Depression Total Score: 0 09/03/19 10:22 AM EDT documented as of this encounter Care Teams Recycling Operator Relationship Specialty Start Date End Date Ally Ferreira MD [address] [place] [address] PCP - General Internal Medicine [facility] documented as of this encounter
--- OUTSIDE RECORDS SUMMARY | 2025-02-12 18:21 | XMS_ITS | Encounter Summary ---
Author Organization [employer] Address [address] [place] [address] Care Team Providers Care Lugger Name Role Phone [facility] MOREAU Primary Care Provider [phone] Ally Ferreira MD Primary Care Pro vider Reason for Visit * Reason Comments Med Refill Encounter Details Date Type Department Care Team (Late st Contact Info) Description 06/06/2022 Refill [facility] MEDICINE [address] [place], [place] [phone] Adelaide Cano DO [address] [place], [place] [phone] Social History Tobacco Use Types Packs/Day Years [...] AM EST T/C placed to pt via [facility] [employer] #[id number]. 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 Advised will update provider. documented in this encounter Plan of Treatment Upcoming Encounters Date Type Department Care Team (Late st Contact Info) Description 06/02/2025 1:00 PM EST Office Visit [facility] OPTOMETRY [address] [place], [place] [phone] Antoinette Zhou, OD [address] [place] [address] documented as of this encounter Visit Diagnoses Not on filedocumented in this encounter Care Teams Lugger Relationship Specialty Start Date End Date Viri Wall FNP [address] [place], [place] [phone] PCP - General Family Medicine 06/06/22 07/24/22 Ally Ferreira MD [address] [place], [place] [phone] PCP - General Internal Medicine [facility] documented as of this encounter
--- OUTSIDE RECORDS SUMMARY | 2025-02-12 18:21 | XMS_ITS | Encounter Summary ---
Author Organization [employer] Address [address] [place] [address] Care Team Providers Care Mobile Home Mechanic Name Role Phone Ally Ferreira MD Primary Care Pro vider Reason for Visit * Reason Comments Med Refill Encounter Details Date Type Department Care Team ([facility] st Contact Info) Description 12/04/2024 Refill [facility] MEDICINE [address] [place], [place] [phone] Greg Stovall MD [address] [place] [address] History of SIVAKUMAR positive for HSV Social [...] Description 06/02/2025 1:00 PM EST Office Visit [facility] OPTOMETRY [address] [place], [place] [phone] Antoinette Zhou, OD [address] [place] [address] documented as of this encounter Visit Diagnoses Diagnosis History of SIVAKUMAR positive for HSV documented in this encounter Additional Health Concerns Assessment Noted Time PHQ-9 Depression Total Score: 0 09/03/19 10:22 AM EDT documented as of this encounter Care Teams Mobile Home Mechanic Relationship Specialty Start Date End Date Ally Ferreira MD [address] [place] [address] PCP - General Internal Medicine 07/25/22 [facility] 12/25/24 documented as of this encounter
--- OUTSIDE RECORDS SUMMARY | 2025-02-12 18:21 | XMS_ITS | Encounter Summary ---
Author Organization [employer] Address [address] [place] [address] 7 [place] [address] Care Team Providers Care Embroidery Designer Name Role Phone Ally Ferreira MD Primary Care Pro vider Reason for Visit * Reason Onset Date Comments Nurse Triage 02/12/2025 Encounter Details Date Type Department Care Team ([facility] st Contact Info) Description 02/12/2025 Telephone [facility] MEDICINE [address] [place], [place] [phone] Ally Ferreira MD [address] [place] [address] Nurse Triage Social History Tobacco Use Types Packs/Day Years [...] Orientation Straight 04/26/2023 9 :30 AM EST documented as of this encounter Miscellaneous Notes * Telephone Encounter - Bettye Llamas RN - 02/12/2025 1:30 PM EDT Telephone call returned to pt. No answer, left v/m. * Telephone Encounter - Russell Lockhart - 02/12/2025 11:33 AM EDT Symptom: Hand or Wrist Pain - Not From Injury Outcome: Schedule an appointment to be seen within 24 hours Reason: Caller denied all higher acuity questions The caller accepted this outcome. documented in this encounter Plan of Treatment Upcoming Encounters Date Type Department Care Team (Late st Contact Info) Description 06/02/2025 1:00 PM EST Office Visit [facility] OPTOMETRY [address] [place] [address] Antoinette Zhou, OD [address] [place] [address] documented as of this encounter Visit Diagnoses Not on filedocumented in this encounter Additional Health Concerns Assessment Noted Time PHQ-9 Depression Total Score: 0 09/03/19 25 10:22 AM EDT documented as of this encounter Care Teams Embroidery Designer Relationship Specialty Start Date End Date Ally Ferreira MD [address] [place] [address] PCP - General Internal Medicine 07[facility] documented as of this encounter
--- OUTSIDE RECORDS SUMMARY | 2025-02-12 18:21 | XMS_ITS | Clinical Summary ---
Author Organization [facility] Address [address] [place] [address] Phone Care Team Providers Care Voice Studies Director Name Role Phone Mt Hooker MD Primary Care Provider [phone] Allergies No known active allergies Medications CALCITRIOL [...] 400 g 2 5 05/06/19 26 Active Immunizations Immunization Administration Dates Next Due COVID-19 (Moderna/Spikevax) 12yo and older 01/26 Moderna SARS-CoV-2 COVID-19, mRNA, LNP-S, preservative free 07/09/2020,05/26/2020 Medical History Medical History Date Comments Kidney failure DX:Kidney failur e Diabetes mellitus ([facility] V24, [facility] V28) DX:Diabetes mellitus (HCC) Diabetic neuropathy ([facility] V24, [facility] V28) DX:Diabetic neuropathy (HCC) Type 1 diabetes ([facility] V24, [facility] V28) DX:Type 1 diabetes ([facility]) Hypertension DX:Hypertension Social History Tobacco [...] Maintenance Results * Hemoglobin A1c (02/27/2023) Pathologist [facility] Hemoglobin A1C 0.0 % Comment:no interpretation, a bstracted Blood Venous blood specimen / Unknown [facility] Provider LAB BLOOD ORDERABLES Araceli l Result * Annual BMP Blood Test (04/06/2022) Pathologist [facility] Annual BMP Blood Test abstracted [facility] Provider HEALTH MAINTENANCE Final Result * Hepatitis C Screening (11/30/2020) Pathologist [facility] Hepatitis C Screening abstracted [facility] Provider HEALTH MAINTENANCE Final Result from Last 3 Months or Most Recently Relevant to Health Maintenance Insurance MEDICAID - [place] MEDICARE Care Teams Voice Studies Director Relationship Specialty Start Date End Date Mt Hooker MD [address] [place] [phone] PCP - General Internal Medicine 09/26/21
--- OUTSIDE RECORDS SUMMARY | 2025-02-12 18:21 | XMS_ITS | Clinical Summary ---
Author Organization [facility] Address [address] [place] [phone] Phone Care Team Providers Care Vacuum Pan Operator Name Role Phone Azucena Bradley MD Primary Care Provider + [phone] Medications losartan (COZAAR) 50 MG tablet TAKE [...] Encounters Date Type Department Care Team Description 01/12/2025 Treatment [facility] [address] [place] [phone] Atul Burton MD End stage renal disease; Dependence on renal dialysis 01/07/2025 Treatment [facility] [address] [place] [phone] Atul Burton MD End stage renal disease; Dependence on renal dialysis 12/01/2024 Treatment [facility] [address] [place] [phone] Atul Burton MD End stage renal disease; Dependence on renal dialysis 11/24/2024 Treatment [facility] [place] [address] [facility] [address] [place] [phone] Atul Burton MD End stage renal disease; Dependence on renal dialysis 11/19/2024 Orders Only [facility] [address] [place] [phone] Atul Burton MD 11/17/2024 Treatment [facility] [address] [place] [phone] Atul Burton MD End stage renal disease; Dependence on renal dialysis 11/14/2024 Treatment [facility] [address] [place] [phone] Atul Burton MD End stage renal disease; Dependence on renal dialysis 11/14/2024 Treatment [facility] [address] [facility] [address] [place] [phone] Atul Burton MD End stage renal disease; [...] 01/30/2013, Additional history exists Diabetes: Hemoglobin A1C 05/02/2025 025, 10/15/2024, 07/16/2024, Additional history exists Pneumococcal Vaccine: 50+ Years Discontinued 04/26/2023, 08/21/2018, 08/02/2018, Additional history exists Pneumococcal Vaccine: Peds ( 0 to 5 Years) and At-Risk Patients (6 to 49 Years) Completed 04/26/2023, 08/21/2018, 08/02/2018, Additional history exists Procedures Procedure Name Priority Date/Time Associated Diagnosis Comments HEMOGLOBIN Routine 02/11/2025 3:00 AM EDT CALCIUM, ADJUSTED W ALBUMIN Routine 02/04/2025 3:00 AM EDT PHOSPHATE ( PHOSPHORUS) Routine 02/04/2025 3:00 AM EDT LIH () Routine 02/04/2025 3:00 AM EDT KT/V NATURAL LOG, URR () Routine 02/04/2025 3:00 AM EDT PROTEIN, TOTAL, SERUM Routine 01/30/2025 3:00 AM EDT MAGNESIUM Routine 01/30/2025 3:00 AM EDT TRANSFERRIN SATURATION Routine 3:00 AM EDT ELECTROLYTE PANEL Routine 01/30/2025 3:0 0 AM EDT LIPID PANEL Routine 01/30/2025 3:00 AM EDT LIH (HC) Routine 01/30/2025 3:00 AM EDT LACTATE DEHYDROGENASE Routine 01/30/2025 3:00 AM EDT BUN/CREATININE RATIO Routine 01/30/2025 3:00 AM EDT CREATININE, SERUM Routine 01/30/2025 3:0 0 AM EDT GLUCOSE, RANDOM Routine 01/30/2025 3:00 AM EDT BILIRUBIN, TOTAL Routine 01/30/2025 3:00 AM EDT AST Routine 01/30/2025 3:00 AM EDT ALT Routine 01/30/2025 3:00 AM EDT ALKALINE PHOSPHATASE Routine 01/30/2025 3:00 AM EDT CALCIUM PHOSPHORUS PRODUCT, ADJUSTED (HC) Routine 01/30/2025 3:00 AM EDT FERRITIN Routine 01/30/2025 3:00 AM EDT PTH, INTACT Routine 01/30/2025 3:00 AM EDT HEMOGLOBIN A1C Routine 01/30/2025 3:00 AM EDT CBC AND DIFFERENTIAL Routine 01/30/2025 3:00 AM EDT KT/V NATURAL LOG, URR (HC) Routine 01/30/2025 3:00 AM EDT HEMOGLOBIN Routine 01/09/2025 3:00 AM EDT HEMOGLOBIN Routine 01/07/2025 3:00 AM EDT LIH (HC) Routine 01/07/2025 3:00 AM EDT KT/V NATURAL LOG, URR (HC) Routine 01/07/2025 3:00 AM EDT FERRITIN Routine 01/02/2025 3:00 AM EDT TRANSFERRIN [...] AND DIFFERENTIAL Routine 11/19/2024 3:00 AM EDT from Last 3 Months Results * (ABNORMAL) Hemoglobin (02/11/2025 3:00 AM EDT) Only the most recent of5 resultswithin the time period is included. Hgb 8.6(L) 11.2 - 15.7 g/dL [facility] Hemoglobin x 3 25.8(L) 33.6 - 47.1 g/dL [facility] 02/11/2025 3:00 AM EDT 02/12/2025 12:36 PM EDT Atul Burton MD LAB BLOOD ORDERABLES Final Re sult Performing Organization Address [facility]/ZIP Co de Phone Number [facility] [address] [place] [address] * LIH (02/04/2025 3:00 AM EDT) Only the most recent of5 resultswithin the time period is included. Lipemia Normal Normal [facility] Icterus Normal Normal [facility] Hemolysis Normal Normal [facility] 02/04/2025 3:00 AM EDT 02/05/2025 2:10 PM EDT us Atul Burton MD LAB [id number] SOLICITED RESULTS Final Result Performing Organization Address City/[facility]/ZIP Co de Phone Number [facility] [address] [place] [address] * (ABNORMAL) Kt/V Natural Log, URR (02/04/2025 3:00 AM EDT) Only the most recent of5 resultswithin the time period is included. [facility] Treatment Time 190 min [facility] Pre-Weight, lb 61.5 kg [facility] Post-Weight, lb 58.9 kg [facility] BUN Post Dialysis 8 7 - 25 mg/dL [facility] BUN 31(H) 7 - 25 mg/dL [facility] UREA REDUCTION RATIO (%) 74 >=65 % [facility] Kt/V Natural Log 1.59 >=1.2 [facility] Ultrafiltration Rate 14(H) <=13 mL/kg/hr [facility] Comment: Recommend achieving Ultrafiltration Rate (UFR) <=10 mL/kg/hr References: Naomy BRITO et al. Kidney Int. 2010; 79(2):250-257 02/04/2025 3:00 AM EDT 02/05/2025 1:50 PM EDT us Atul Burton MD LAB HISTORICAL-CONVE RSIONS-UNSOLICITED RESULTS Edited Result - Final Performing Organization Address City/[facility]/ZIP Co de Phone Number [facility] [address] [place] [address] * Calcium, Adjusted w Albumin (02/04/2025 3:00 AM EDT) [facility] Calcium 10.3 8.6 - 10.3 mg/dL [facility] Albumin 4.3 3.6 - 5.4 g/dL [facility] Calcium, Adjusted Total 10.3 8.6 - 10.3 mg/dL [facility] 02/04/2025 3:00 AM EDT 02/05/2025 2:10 PM EDT us Atul Burton MD LAB BLOOD ORDERABLES Final Re sult [facility] [address] [place] [address] * (ABNORMAL) Phosphorus (02/04/2025 3:00 AM EDT) Phosphorus, Serum 6.5(H) 2.5 - 5.0 mg/dL [facility] 02/04/2025 3:00 AM EDT 02/05/2025 2:10 PM EDT us Atul Burton MD LAB BLOOD ORDERABLES Final Re sult Performing Organization Address [facility] Co de Phone Number [facility] [address] [place] [address] * (ABNORMAL) Calcium Phosphorus Product, Adjusted (01/30/2025 3:00 AM EDT) Only the most recent of3 resultswithin the time period is included. Albumin 4.1 3.6 - 5.4 g/dL [facility] Calcium 10.3 8.6 - 10.3 mg/dL [facility] Phosphorus, Serum 7.5(H) 2.5 - 5.0 mg/dL [facility] Ca*PO4 77.2(A) <55.0 mg2/dL2 [facility] Calcium, Adjusted Total 10.3 8.6 - 10.3 mg/dL [facility] CA*PO4 CORRCTD 77.2(A) <55.0 mg2/dL2 [facility] 01/30/2025 3:00 AM EDT 01/31/2025 2:23 PM EDT us Atul Burton MD LAB [id number] SOLICITED RESULTS Final Result Performing Organization Address [facility] Co de Phone Number [facility] [address] [place] [address] * BUN/CREATININE RATIO (01/30/2025 3:00 AM EDT) Only the most recent of2 resultswithin the time period is included. BUN/Creatinine Ratio 2.7 <=23.0 [facility] 01/30/2025 3:00 AM EDT 01/31/2025 2:23 PM EDT us Atul Burton MD LAB [id number] SOLICITED RESULTS Final Result Performing Organization Address [facility] Co de Phone Number [facility] [address] [place] [address] * (ABNORMAL) TSAT (01/30/2025 3:00 AM EDT) Only the most recent of3 resultswithin the time period is included. Pathologist [facility] Iron 24(L) 50 - 170 ug/dL [facility] Transferrin 106(L) 250 - 380 mg/dL [facility] TIBC 148(L) 211 - 406 ug/dL [facility] Iron Saturation (TSat) 16(L) 22 - 52 % [facility] 01/30/2025 3:00 AM EDT 01/31/2025 2:23 PM EDT us Atul Burton MD LAB BLOOD ORDERABLES Final Re sult Performing Organization Address [facility] de Phone Number [facility] [address] [place] [address] * (ABNORMAL) CBC and Differential (01/30/2025 3:00 AM EDT) Only the most recent of4 resultswithin the time period is included. [facility] DIFFERENTIAL MANUAL, 2 Not Indicated [facility] White Blood Cells 15.6(H) 4.0 - 10.0 K/uL [facility] RBC 2.53(L) 3.93 - 5.22 M/uL [facility] Hgb 7.3(L) 11.2 - 15.7 g/dL [facility] Hemoglobin x 3 21.9(L) 33.6 - 47.1 g/dL [facility] Hematocrit 24.4(L) 34.1 - 44.9 % [facility] MCV 96.4(H) 79.4 - 94.8 fL [facility] MCH 28.9 25.6 - 32.2 pg [facility] MCHC 29.9(L) 32.2 - 35.5 g/dL [facility] RDW 14.4 11.7 - 14.4 % [facility] Platelets 579(H) 182 - 369 K/uL [facility] MPV 11.6 9.2 - 12.8 fL [facility] Neutrophils Relative 73.6(H) 34.0 - 71.1 % [facility] Lymphocytes Relative 11.3(L) 19.3 - 51.7 % [facility] Monocytes 5.9 4.7 - 12.5 % [facility] Eosinophils Relative 7.3(H) 0.7 - 5.8 % [facility] Basophils Relative 0.6 0.1 - 1.2 % [facility] Immature Granulocytes 1.3(H) 0.0 - 1.0 % [facility] 01/30/2025 3:00 AM EDT 01/31/2025 2:23 PM EDT us Atul Burton MD LAB BLOOD ORDERABLES Final Re sult Performing Organization Address [facility] Co de Phone Number [facility] [address] [place] [address] * ALT (01/30/2025 3:00 AM EDT) Only the most recent of3 resultswithin the time period is included. ALT (SGPT) 18 10 - 49 U/L [facility] 01/30/2025 3:00 AM EDT 01/31/2025 2:23 PM EDT us Atul Burton MD LAB BLOOD ORDERABLES Final Re sult Performing Organization Address [facility] de Phone Number [facility] [address] [place] [address] * AST (01/30/2025 3:00 AM EDT) Only the most recent of3 resultswithin the time period is included. AST (SGOT) 17 <34 U/L [facility] 01/30/2025 3:00 AM EDT 01/31/2025 2:23 PM EDT us Atul Burton MD LAB BLOOD ORDERABLES Final Re sult Performing Organization Address [facility] de Phone Number [facility] [address] [place] [address] * Protein, total (01/30/2025 3:00 AM EDT) Only the most recent of3 resultswithin the time period is included. Total Protein 8.2 6.4 - 8.9 g/dL [facility] 01/30/2025 3:00 AM EDT 01/31/2025 2:23 PM EDT Atul Burton MD LAB BLOOD ORDERABLES Final Re sult Performing Organization Address [facility] Co de Phone Number [facility] [address] [place] [address] * (ABNORMAL) Alkaline phosphatase (01/30/2025 3:00 AM EDT) Only the most recent of3 resultswithin the time period is included. Alkaline Phosphatase 131(H) 46 - 116 U/L [facility] 01/30/2025 3:00 AM EDT 01/31/2025 2:23 PM EDT Atul Burton MD LAB BLOOD ORDERABLES Final Re sult Performing Organization Address [facility] de Phone Number [facility] [address] [place] [address] * (ABNORMAL) PTH, Intact (01/30/2025 3:00 AM EDT) Only the most recent of2 resultswithin the time period is included. PTH, Intact 132(L) 160 - 721 pg/mL [facility] Comment: Suggested (KDIGO) ESRD maintenance range is two to nine times the upper normal limit (80.1 pg/mL) for the laboratory. 01/30/2025 3:00 AM EDT 01/31/2025 2:23 PM EDT Atul Burton MD LAB BLOOD ORDERABLES Final Re sult Performing Organization Address [facility] de Phone Number [facility] [address] [place] [address] * Magnesium (01/30/2025 3:00 AM EDT) Only the most recent of3 resultswithin the time period is included. Magnesium 2.5 1.9 - 2.7 mg/dL [facility] 01/30/2025 3:00 AM EDT 01/31/2025 2:23 PM EDT Atul Burton MD LAB BLOOD ORDERABLES Final Re sult Performing Organization Address [facility] de Phone Number [facility] [address] [place] [address] * Lactate dehydrogenase (01/30/2025 3:00 AM EDT) Only the most recent of3 resultswithin the time period is included. LDH 236 120 - 246 U/L [facility] 01/30/2025 3:00 AM EDT 01/31/2025 2:23 PM EDT Atul Burton MD LAB BLOOD ORDERABLES Final Re sult Performing Organization Address [facility] de Phone Number [facility] [address] [place] [address] * (ABNORMAL) Hemoglobin A1c (01/30/2025 3:00 AM EDT) Pathologist [facility] Hemoglobin A1C 6.6(H) <5.7 % [facility] Comment: Methodology: Enzymatic Normal: <5.7% Prediabetes: 5.7-6.4% Diabetes: >6.4% Diabetic Glucose Control Evaluation: Therapeutic action suggested at >8.0% ADA recommends a glycemic goal of <7.0% 01/30/2025 3:00 AM EDT 01/31/2025 2:23 PM EDT Atul Burton MD LAB BLOOD ORDERABLES Final Re sult Performing Organization Address [facility] de Phone Number [facility] [address] [place] [address] * (ABNORMAL) Glucose, random (01/30/2025 3:00 AM EDT) Only the most recent of3 resultswithin the time period is included. Pathologist [facility] Glucose 129(H) 70 - 99 mg/dL [facility] Comment: ADA guidelines outline the following fasting glucose ranges: Normal: <100 Prediabetes: 100-125 Diabetes: >125 01/30/2025 3:00 AM EDT 01/31/2025 2:23 PM EDT Atul Burton MD LAB BLOOD ORDERABLES Final Re sult Performing Organization Address [facility] de Phone Number [facility] [address] [place] [address] * (ABNORMAL) Ferritin (01/30/2025 3:00 AM EDT) Only the most recent of3 resultswithin the time period is included. [facility] Ferritin 1,583(H) 10 - 291 ng/mL [facility] 01/30/2025 3:00 AM EDT 01/31/2025 2:23 PM EDT Atul Burton MD LAB BLOOD ORDERABLES Final Re sult Performing Organization Address [facility] de Phone Number [facility] [address] [place] [address] * (ABNORMAL) Creatinine, serum (01/30/2025 3:00 AM EDT) Only the most recent of3 resultswithin the time period is included. [facility] Creatinine 9.26(H) 0.55 - 1.02 mg/dL [facility] 01/30/2025 3:00 AM EDT 01/31/2025 2:23 PM EDT Atul Burton MD LAB BLOOD ORDERABLES Final Re sult Performing Organization Address [facility] de Phone Number [facility] [address] [place] [address] * (ABNORMAL) Bilirubin, total (01/30/2025 3:00 AM EDT) Only the most recent of3 resultswithin the time period is included. Pathologist [facility] Total Bilirubin <0.2(L) 0.3 - 1.2 mg/dL [facility] 01/30/2025 3:00 AM EDT 01/31/2025 2:23 PM EDT us Atul Burton MD LAB BLOOD ORDERABLES Final Re sult Performing Organization Address [facility] de Phone Number [facility] [address] [place] [address] * (ABNORMAL) Lipid panel (01/30/2025 3:00 AM EDT) Cholesterol 157 mg/dL [facility] Comment: Optimal: <200 Borderline: 200-239 High Risk: >239 Triglycerides 286(H) mg/dL [facility] Comment: Optimal: <150 Borderline: 150-200 High Risk: >200 HDL 30(L) mg/dL [facility] Comment: Optimal: >59 Borderline: 40-59 High Risk: <40 LDL-Calc 70 mg/dL [facility] Comment: Optimal: <100 Borderline: 100-159 High Risk: >159 VLDL Cholesterol Moody 57(H) mg/dL [facility] Comment: Optimal: <30 Borderline: 30-40 High Risk: >40 Chol/HDL Ratio 5.2(H) [facility] Comment: Optimal: <3.3 High Risk: >6.2 01/30/2025 3:00 AM EDT 01/31/2025 2:23 PM EDT us Atul Burton MD LAB BLOOD ORDERABLES Final Re sult Performing Organization Address [facility] de Phone Number [facility] [address] [place] [address] * (ABNORMAL) Electrolyte panel (01/30/2025 3:00 AM EDT) Only the most recent of3 resultswithin the time period is included. Sodium 138 136 - 145 mEq/L [facility] Potassium 5.0 3.4 - 5.0 mEq/L [facility] Chloride 97(L) 98 - 107 mEq/L [facility] Bicarbonate (CO2) 19(L) 21 - 31 mEq/L [facility] Anion Gap 22(H) 3 - 14 mEq/L [facility] 01/30/2025 3:00 AM EDT 01/31/2025 2:23 PM EDT Atul Burton MD LAB BLOOD ORDERABLES Final Re sult [facility] [address] [place] [address] * Unspun Tube (12/26/2024 3:00 AM EDT) Unspun Tube [place] [facility] Comment:Received uncentrifug ed specimen. Unable to perform testing. 12/26/2024 3:00 AM EDT Atul Burton MD LAB [id number] SOLICITED RESULTS Final Result Performing Organization Address [facility] Co de Phone Number [facility] [address] [place] [address] from Last 3 Months Insurance [place] Care Teams Vacuum Pan Operator Relationship Specialty Start Date End Date Azucena Bradley MD [address] [place] [address], [address] [place] [address] PCP - General Internal Medicine 01/22/24
--- OUTSIDE RECORDS SUMMARY | 2025-02-12 18:21 | XMS_ITS | Clinical Summary ---
Author Organization [employer] Address [address] [place] [address] Care Team Providers Care Chief Chemist Name Role Phone Ally Ferreira MD [...] the morning. 022 Active [facility] Saline Nasal [place] 0.65 % nasal spray ADMINISTER 1 SPRAY [...] mouth in the morning. 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 E10.65 023 Active Liletta, 52 MG, 20.1 MCG/DAY intrauterine device 52 mg by Intrauterine route. 024 Active loratadine (Claritin) 10 MG tablet Take 10 mg by mouth in the morning. 023 Active montelukast (Singulair) 10 MG tablet Take 10 mg by mouth at bedtime. Active Insulin Disposable Pump (Omnipod 5 SxoD1D8 Pods Gen 5) misc 1 each every [...] A WEEK ON NON DIALYSIS DAYS Active Ventolin HFA 108 (90 Base) MCG/ACT [...] ON DIALYSIS DAY. 36 tablet 2 Active aspirin 81 MG EC tablet Take 1 tablet by mouth Once per day. 025 Active clopidogrel (Plavix) 75 MG tablet Take 1 tablet by mouth Once per day. 025 Active cinacalcet (Sensipar) 30 MG tablet Take 1 tablet by mouth 3 (three) times a week. Active HYDROmorphone (Dilaudid) 4 MG tablet Take 1 tablet by mouth every 4 (four) hours if needed for severe pain. 025 Active calcitriol (Rocaltrol) 0.25 MCG capsule Take 0.25 mcg by mouth 3 (three) times a week. Active pregabalin (Lyrica) 25 MG capsule Take 1 capsule (25 mg) by mouth 3 (three) times a week. Take 1 tab after hemodialysis on dialysis days -pt receiving HD 3 times a week 12 capsule 2 025 Active Fiasp FlexTouch 100 UNIT/ML injection 4-10 UNITS SUBCUTANEOUSLY 3 TIMES A DAY 024 2024 Discontinued(M ed list cleanup (will not trigger notification to Pharmacy)) pregabalin (Lyrica) 25 MG capsule TAKE 1 CAPSULE (25 MG) BY MOUTH 2 TIMES DAILY. 60 capsule 025 2024 Discontinued(R eorder (will not trigger notification to Pharmacy)) Active Problems Problem Noted Date Diagnosed Date Allergic rhinitis 09/03/2024 Ulcer of right foot with fat layer exposed (CMS/ HCC) 07/23/2024 Assessment & Plan (07/23/2024 5:50 PM EDT): [...] possible transplant in the future would like senior storage engineer to evaluate pt -referred today Seasonal allergies 01/11/2023 Assessment & Plan (01/11/2023 7:58 PM EDT): Reports seasonal allergies symptoms -px ocean spray,cetirizine 5 mg max 3 times a week Anemia 01/11/2023 Assessment & Plan (01/11/2023 8:03 PM EDT): 07/2022 Hb 9.9, AEC 597 Anemia from chronic dx f w program counselor -states getting tx w program counselor- removed from iron pills Peripheral vascular disorder [...] reports to be following with vascular at [facility] --- ---- requested record to Yariel [...] and exercise,discussed healthy life style -to see delicatessen store manager referred by her endoc Abnormal EKG 08/10/2022 Assessment & Plan (01/11/2023 7:44 PM EDT): -EKG 07/2022 showed now acute ischemic findings there is QTC prolonged to 491 but noted in the past as well -states was seen by cards before unsure reason but w no major findings -found inconclusive stress test done in 2020 -Per pt has been seen by cards at [facility] -sounds possible was evaluated by cards in [...] B x3-immune, x2 and later p13 in 2018 -will [...] visit , HPV x3, hep B x3, [id number] x2 and later p13 in 2019 ,MMRx2,varicellax2 [...] Services needed PCP management Off-site services for Kelley Hurst was offered same-day appointments with [facility]/intake. [...] for self PLAN: 1. Follow up with [facility]: Not recommended for follow-up 2. Patient goal [...] Referred today to -monitor ESRD on hemodialysis ([facility]) 05/25/2022 Assessment & Plan (01/11/2023 7:48 PM EDT): cara rowland program counselor on HD ( [place]) In eval x [...] called today CM from the hospital # [id number] and discussed pt's concern to be taken [...] Plan (08/10/2022 1:01 PM EDT): f w program counselor on HD ( ) In eval x [...] tab of 100 mg?? --px by her program counselor --advised pt to follow w her specialist to confirm dose of med Assessment & Plan (08/10/2022 12:41 PM EDT): BP at home per pt <140/90 Stopped hydralazine by her program counselor for hypotensive episodes after HD Currently denies [...] losartan ? -all meds refilled by her program counselor ,states dont need any meds refilled -f BP at her next apt -advised to check at home and bring readings Hyperlipidemia 09/06/2012 Proteinuria 01/09/2012 03/07/2023 DM (diabetes mellitus), type 1 with renal compli cations 04/16/1958 Assessment & Plan (01/11/2023 8:05 PM EDT): dxed w DM1 at age 11 y of age c/w nephropathy -ESRD on HD complicated w hypoglycemic events f w hse advisor -Dr Morro Amor on novolog SS ( 6 to 8 u TID)and lantus 18 u HS Hb1AC capillary today is 12.3<---12, LDL 86,CBG elevated today at 235 -tenoner operator referred today -ry has apt for 05/2023 -sent glucose tab-before and would discuss about gluconate at next visit x emergency -continue care w her hse advisor -will hold on doing Changes per pt [...] HD complicated w hypoglycemic events f w hse advisor -Dr Morro Amor on novolog SS ( 6 to 8 u TID)and lantus 10 u HS --got today records of her last visit w endo in 07/2022 Hb1AC capillary 12 today --from last endo note had hb1AC in 07/2022 10.9? -tenoner operator referred already by her hse advisor -pd to abigail apt -opthalmo referral today Pt has continuous capillary glucose check marking bw 55 to 400s ----pt takes her readings to her endo office to do changes in meds -to take tomorrow to endo's office -Pd to see a private security guard and delicatessen store manager referred by her hse advisor ----pt recently got the CGM by her [...] x 5 days ESRD (end stage renal diseas e) on dialysis ([facility]) 05/25/2022 08/10/2022 Acute osteomyelitis of left foot ([facility]) 12/17/2019 08/10/2022 Encounters Date Type Department Care Team Description 02/12/2025 Telephone [facility] [address] [place] [address] Ally Ferreira MD Nurse Triage 02/06/2025 Telephone [facility] [address] [place] [address] Bettye Llamas RN Medication Changes 02/05/2025 Refill [facility] [address] [place] [address] Ally Ferreira MD 02/03/2025 Orders Only GENERIC EXTERNAL DATA DEPARTMENT Provider, Generic External Data 01/29/2025 Telephone [facility] [address] [place] [address] Ally Ferreira MD No Show 01/28/2025 Telephone [facility] [address] [place] [address] Ally Ferreira MD chart prep 01/09/2025 Telephone [facility] [address] [place] [address] Ally Ferreira MD Referral 01/07/2025 Orders Only [facility] [address] [place], [place] [address] Ally Ferreira MD 01/06/2025 Orders Only [facility] [address] [place], [place] [address] Ally Ferreira MD 01/05/2025 Orders Only [facility] [address] [place] [address] Ally Ferreira MD 01/05/2025 Telephone [facility] [address] [place] [address] Ally Ferreira MD Med Refill 01/05/2025 Telephone [facility] [address] [place] [address] Ally Ferreira MD Durable Medical Equipment 01/05/2025 Telephone [facility] [address] [place] [address] Radha Feliciano [place] 01/05/2025 Telephone [facility] [address] [place] [address] Ally Ferreira MD call back needed 01/04/2025 Refill [facility] [address] [place] [address] Greg Stovall MD History of SIVAKUMAR positive for HSV 01/02/[address] [address] Ally Ferreira MD FYI 01/02/2025 Patient Outreach [address] [address] Ally Ferreira MD Transition Of Care (Tcm) (HDF scheduled and SDOH completed on 08/26/24 ) 12/25/2024 Patient Outreach [address] [address] Ally Ferreira MD Transition Of Care (Tcm) (HDF- Unscheduled ) 12/22/[address] [address] Ally Ferreira MD Verbal Order call back 12/05/2024 Results Follow-Up [facility] [address] [place] [phone] Bettye Llamas, RN Rast Allergen 12/04/2024 Refill [facility] [address] [place] [address] Ally Ferreira MD Primary hypertension 12/04/2024 Refill [facility] [address] [place] [address] Greg Stovall MD History of SIVAKUMAR positive for HSV 12/04/2024 Refill [facility] [address] [place] [address] Kaur Hernandez MD Hypertension, unspecified type; Primary hypertension 12/02/2024 Orders Only [facility] External Provider, [facility] 12/02/2024 Telephone [facility] [address] [place] [address] Ally Ferreira MD Lab Orders 11/26/2024 Telephone [facility] [address] [place] [address] Ally Ferreira MD oct recall 11/25/2024 1:00 PM EDT Office Visit [facility] [address] [place] [address] Abelardo, Antoinette, OD 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 (CMS/HCC) (Primary Dx); Epiretinal membrane (ERM) of both eyes; WOOD DIE MAKER (central serous retinopathy), left; Pseudophakia of both eyes; Presbyopia 11/25/2024 Travel 11/24/2024 Travel from Last 3 Months Immunizations Immunization Administration Dates Next Due DTP 09/11/1995,01/23/1994 DTaP 09/11/1995,01/23/1994 DTaP / HiB / IPV 05/05/1993,02/22/1993, 3 HPV, Quadrivalent 03/31/2008,02/26/2007,01/23/20 07 Hep A, Adult 12/16/2019 Hep B, Adolescent or Pediatric 8,07/25/1996,10/24/1995,09/16 Hep B, Unspecified 04/16/2019,09/27/2018, 019 Hep B, adult 05/13/2007, 7,10/24/1995,09/16 IPV 09/11/1995 Influenza Whole 01/20/2015 Influenza injectable quadriv alent preservative free 01/11/2023 Influenza, IIV3, injectable 02/08/2024,0 01/11/2023,05/27/2019,04/02 Influenza, Split (incl. maria e fied surface antigen) 01/30/2013,01/08/2012 Influenza, Unspecified 01/30/2013,01/08/2012 MMR 12/22/1992,1992 Meningococcal ACWY, unspecified 04/26/2007 Meningococcal MCV4P ACYW-135 04/26/2007 Pfizer Covid-19 Vaccine 12+ 05/13/2024, Pfizer Covid-19 Vaccine 12+ Bivalent 01/26/2022 Pneumococcal [...] Description 06/02/2025 1:00 PM EST Office Visit [facility] [address] [place] [address] Abelardo, Antoinette, OD [address] [place] [address] Health Maintenance Due Date Last Done Comments Family Planning (PISQ) 09/09/2006 Lipid Panel 09/05/2024 09/06/2023, 04/0 11/2023, 08/11/2022, Additional history exists Influenza Vaccine (#1) 2024 , 01/11/2023, 01/11/2023, Additional history exists Diabetes: Hemoglobin A1C 01/15/2025 025, 07/16/2024, 09/06/2023, Additional history exists Diabetes: [...] Associated Diagnosis Comments GLUCOSE, WHOLE BLOOD Routine 02/03/2025 12:15 PM EDT ACID-FAST SMEAR Routine 01/07/2025 6:24 AM EDT ACID-FAST SMEAR Routine 01/06/2025 6:30 PM EDT ACID-FAST SMEAR Routine 01/05/2025 6:29 AM EDT RAST ALLERGEN (NON ORDERABLE) Routine 12/02/2024 4:42 [...] both eyes HM HEMOGLOBIN A1C Routine 10/15/2024 HEPATITIS C AB W/REFL TO HCV RNA, QN, PCR Routine 09/06/2023 10:47 AM EDT Annual physical exam LIPID PANEL, STANDARD Routine 09/06/2023 10:47 AM EDT Annual physical exam PAP SMEAR Routine 05/17/2023 12:00 AM EST HPV MRNA E6/E7 Routine 02/03/2021 9:37 AM EDT from Last 3 Months or Most Recently Relevant to Health Maintenance Results * (ABNORMAL) Glucose, Whole Blood (02/03/2025 12:15 PM EDT) Glucose, Whole Blood 224(H) 60 - 115 mg/dL [facility] Comment:METER #: [id number] Testing performed in the Endocrinology Department [address] , [address], [facility]. 02/03/2025 12:1 5 PM EDT 02/03/2025 12:22 PM EDT us Generic External Data Provider LAB BLOOD ORDERAB LES Final Result Performing Organization Address [facility]/ZIP Co de Phone Number [facility] [address] [place] [phone] * Acid-Fast Smear (01/07/2025 6:24 AM EDT) Only the most recent of3 resultswithin the time period is included. 01/07/2025 6:24 AM EDT 01/07/2025 3:51 PM EDT Comment:Trachea Narrative [facility] - 02/04/2025 11:33 AM EDT Acid-Fast Smear Acid-Fast Smear Acid-Fast Smear No acid-fast bacilli seen. Test performed by: [employer] [address] [place] [address], 3rd floor, [place] [address] Director: Lori Alba MD CLIA: [id number] Acid-Fast Culture null Acid-Fast Culture null Acid-Fast Culture null Acid-Fast Culture null Acid-Fast Culture null Acid-Fast Culture null Acid-Fast Culture null Acid-Fast Culture null Specimen Source: Trachea us Ally Ferguson MD LAB MICROBIOLOGY - GENERAL ORDERABLES Final Result Performing Organization Address [facility] Co de Phone Number [facility] [address] [place] [phone] * Rast Allergen (12/02/2024 4:42 PM EDT) Rast Allergen SEE NOTE [facility] Comment:SEE SCANNED IN EMR 12/02/2024 4:42 PM EDT 12/05/2024 4:42 PM EDT us Ally Ferguson MD HISTORICAL/NON OR DERABLE LABS Final Result Performing Organization Address City/[facility]/ZIP Co de Phone Number [facility] [address] [place] [phone] * Syphilis Screen (12/02/2024 4:42 PM EDT) Syphilis Screen Nonreactive Nonreactive [facility] Blood 12/02/2024 4:42 PM EDT 12/02/2024 4:42 PM EDT Ally Ferguson MD LAB BLOOD ORDERAB LES Final Result Performing Organization Address [facility]/ZIP Co de Phone Number [facility] [address] [place] [phone] * Aspergillus Antigen, EIA, Serum (12/02/2024 4:42 PM EDT) [facility] Aspergillus AG, EIA, Serum Not Detected Not Detected [facility] Comment:A negative result do es [...] with Penicillium marneffei andCryptococcus.THIS TEST WAS PERFORMED AT:[id number] [place] [address]SGNVHDZANAYA BENITEZ MD,PHD Index Value 0.05 <0.50 [facility] Blood 12/02/2024 4:42 PM EDT 12/02/2024 4:42 PM EDT us Ally Ferguson MD LAB BLOOD ORDERAB LES Final Result Performing Organization Address [facility]/ZIP Co de Phone Number [facility] [address] [place] [phone] * (ABNORMAL) Vitamin B12 (Cobalamin) and Folate Panel, Serum (12/02/2024 4:42 PM EDT) Pathologist [facility] Vitamin B12 903(H) 200 - 900 pg/mL [facility] Comment:NORMAL 200-900 PG/ML INDETERMINATE 160-199 PG/ML DEFICIENT < 160 PG/ML Folate 10.9 > or = 4.0 ng/mL [facility] Comment:Reference Values:> o r = 4.0 ng/mL< 4.0 ng/mL suggests folate deficiency Methotrexate, aminopterin and folinic acid(leucovorin) are chemotherapeutic agents whose molecularstructures are similar to folate; therefore, the Architectfolate assay cannot be used for patients using these drugs. Blood 12/02/2024 4:42 PM EDT 12/02/2024 4:42 PM EDT Ally Ferguson MD LAB BLOOD ORDERAB LES Final Result [facility] [address] [place] [phone] * T-SPOT??.TB (12/02/2024 4:42 PM EDT) [facility] T Spot TB Negative Negative [facility] Comment:A negative test resu lt [...] as aquantitative test. TS PANEL A 0 [facility] TS PANEL B 0 [facility] Negative Control Passed [facility] Positive Control Passed [facility] Comment:For additional infor mation, please refer [email or web address]/faq/[email or web address](This link is being provided for informational/educational purposes only.)THIS TEST WAS PERFORMED AT:[employer] [id number] [place] [address]LFIHBDSANAYA BENITEZ MD,PHD 12/02/2024 4:42 PM EDT 12/02/2024 4:42 PM EDT us Ally Ferguson MD LAB BLOOD ORDERAB LES Final Result Performing Organization Address [facility]/ZIP Co de Phone Number [facility] [address] [place] [phone] * TSH with Reflex to Free T4 (12/02/2024 4:42 PM EDT) TSH reflex Free T4 0.93 0.32 - 4.0 uIU/mL [facility] Blood 12/02/2024 4:42 PM EDT 12/02/2024 4:42 PM EDT Ally Ferguson MD LAB BLOOD ORDERAB LES Final Result Performing Organization Address [facility]/ZIP Co de Phone Number [facility] [address] [place] [phone] * Strongyloides Antibody (IgG) (12/02/2024 4:42 PM EDT) Strongyloides Antibody IgG NEGATIVE [facility] Comment:REFERENCE RANGE: NEG ATIVEStrongyloides stercoralis is a parasiticNematode found in tropical and subtropicalregions. Because of low larval densities infeces, stool examination is a relativelyinsensitive diagnostic test; antibody detectionoffers increased sensitivity. Patients withlatent infections who are immunosuppressed orreceiving immunosuppressive therapy are at riskof life- threatening hyperinfection. Significantcrossreactivity may be observed in otherhelminth infections.THIS TEST WAS PERFORMED AT:[employer] [id number] [facility] [place] [address]CUWSPSOHA LYONS MD,PHD,DIANA Blood Venous blood specimen / Unknown 12/02/2024 4:42 PM EDT 12/02/2024 4:42 PM EDT Ally Ferguson MD LAB BLOOD ORDERAB LES Final Result Performing Organization Address [facility] Co de Phone Number [facility] [address] [place] [phone] * IgE Antibody (Anti-IgE IgG) (12/02/2024 4:42 PM EDT) IgE Antibody (Anti-IgE IgG) 13 <168 ng/mL [facility] Comment:This test was develo ped and its analytical performancecharacteristics have been determined by [employer].It has not been cleared or approved by the FDA. This assayhas been validated pursuant to the CLIA regulations and isused for clinical purposes.THIS TEST WAS PERFORMED AT:[employer] [id number] [place] [address]EPAGHSOHA LYONS MD,PHD,DIANA Blood Venous blood specimen / Unknown 12/02/2024 4:42 PM EDT 12/02/2024 4:42 PM EDT Ally Ferguson MD LAB BLOOD ORDERAB LES Final Result Performing Organization Address [facility] Co de Phone Number [facility] [address] [place] [phone] * Hepatitis B surface antigen, EIA (12/02/2024 4:42 PM EDT) [facility] Hepatitis B Surface Ag Negative Negative [facility] Blood Venous blood specimen / Unknown 12/02/2024 4:42 PM EDT 12/02/2024 4:42 PM EDT Ally Ferguson MD LAB BLOOD ORDERAB LES Final Result Performing Organization Address City/[facility]/ZIP Co de Phone Number [facility] [address] [place] [phone] * HIV-1/2 Antigen and Antibodies, Fourth Generation, with Reflexes (12/02/2024 4:42 PM EDT) [facility] HIV AB/AG Nonreactive Nonreactive [facility] Comment:HIV-1 p24 Ag and/or HIV-1/HIV-2 Ab not detected.A test result that is nonreactive does not exclude thepossibility of exposure to or infection with HIV-1 and/orHIV-2. Nonreactive results in this assay for individualswith prior exposure to HIV-1 and/or HIV-2 may be due toantigen and antibody levels that are below the limit ofdetection of this assay.[employer] Found! HIV Ag/Ab Combo assay result andsupplemental assay results should be interpreted inconjunction with the patient's clinical presentation,history and other laboratory results. If the results areinconsistent with clinical evidence, additional testing issuggested to confirm the result. Blood Venous blood specimen / Unknown 12/02/2024 4:42 PM EDT 12/02/2024 4:42 PM EDT Ally Ferguson MD LAB BLOOD ORDERAB LES Final Result Performing Organization Address [facility]/ZIP Co de Phone Number [facility] [address] [place] [phone] * Hepatitis B Surface Antibody, Qualitative (12/02/2024 4:42 PM EDT) [facility] ~Hepatitis B Surface Antibody REACTIVE Nonreactive [facility] Comment:REACTIVE: > 11.99 mI U/mL Blood Venous blood specimen / Unknown 12/02/2024 4:42 PM EDT 12/02/2024 4:42 PM EDT us Ally Ferguson MD LAB BLOOD ORDERAB LES Final Result [facility] [address] [place] [phone] [phone] * XR Foot 3+ Views Right (12/02/2024 3:48 PM EDT) Anatomical Region Laterality Modality Lower Extremities, Foot Right Radiogra phic Imaging 12/02/2024 3:48 PM EDT Narrative 12/02/2024 4:46 PM EDT [facility] [address] [place] [address] XRay Report Signed Patient: Natali Mtz MR#: [id number] : 1990 Acct:[id number] Age/Sex: 34 / F ADM Date: 12/02/24 Loc: .[facility] Attending Dr: Marianne Cartwright MD Ordering Physician: Marianne Cartwright MD Date of Service: 12/02/24 Procedure(s): XR foot RT min 3V Accession Number(s): [id number] cc: Marianne Cartwright MD; Ally Ferreira MD [...] 12/02/24 1643 DD/ 1548 TD/TT: 12/02/24 1554 Corporate Relations Manager: Procedure Note Donotuseinterpreter, Image - 12/02/2024 [facility] [address] [place] [phone] XRay Report Signed Patient: Natali Mtz LMR#: [id number] : 1990Acct:[id number] Age/Sex: 34 / FADM Date: 12/02/24 Loc: .[facility] Attending Dr: Marianne Cartwright MD Ordering Physician: Marianne Cartwright MD Date of Service: 12/02/24 Procedure(s): XR foot RT min 3V Accession Number(s): [id number] cc: Marianne Cartwright MD; Ally Ferreira MD [...] Denis Yen MD 12/02/2024 04:43 PM EDT RP Dictated By: Denis Yen MD Signed By: <Electronically signed by Denis Yen MD in OV> 12/02/24 1643 DD/ 1548 TD/TT: 12/02/24 1554 Corporate Relations Manager: [facility] External Provider IMG XR PROCEDURES Final Result * OCT, Retina - OU - Both Eyes (11/25/2024 3:26 PM EDT) Antoinette Buckley, OD - 11/25/2024 3:26 PM EDT Images [...] the right eye. 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 Will have patient monitor vision with amsler grid. Will also monitor here in 6 months. Result [facility] Antoinette Zhou OD OPHTH TOMOGRAPHY Final Result * (ABNORMAL) HM Hemoglobin A1c (10/15/2024) Hemoglobin A1C 8.0(A) 4.0 - 5.7 % Montse Larose - 10/15/2024 See labs under care everywhere with matching A1c date Result [facility] Historical Provider HEALTH MAINTENANCE Final Result * Hepatitis C Antibody with Reflex to HCV, RNA, Quantitative, Real-Time PCR (09/06/2023 10:47 AM EDT) Hepatitis C Antibody Nonreactive Nonreactive [facility] Comment:Antibodies to HCV no t detected; does not exclude early acuteHCV infection. Blood Venous blood specimen / Unknown 09/06/2023 10:47 AM EDT 09/06/2023 10:47 AM EDT us Ally Ferguson MD LAB BLOOD ORDERAB LES Final Result Performing Organization Address [facility]/ZIP Co de Phone Number [facility] [address] [place] [address] [phone] * (ABNORMAL) Lipid Panel, Standard (09/06/2023 10:47 AM EDT) Triglycerides 256(H) <150 mg/dL [facility] Comment:Desirable Triglyceri de: less than 150 mg/dLBorderline High Triglyceride 150-199 mg/dLHigh Triglyceride: 200-499 mg/dLVery High Triglyceride: greater than or equal to 5OO mg/dL Cholesterol 203(H) <200 mg/dL [facility] Comment:Desirable Cholestero l: less than 200 mg/dLBorderline High Cholesterol: 200-239 mg/dLHigh Cholesterol: greater than 239 mg/dL LDL Cholesterol Calculated 123(H) <100 mg/dL [facility] Comment:Desirable LDL: less than 100 mg/dLNear Optimal/Above Optimal LDL: 110- 129 mg/dLBorderline High LDL: 130-159 mg/dLHigh LDL: 160-189 mg/dLVery High LDL: greater than or equal to 190 mg/dL HDL Cholesterol 29(L) >40 mg/dL [facility] Comment:Desirable HDL: great er than 40 mg/dL Note: This HDL assay may give artificially low results in patients with liver disease. Blood Venous blood specimen / Unknown 09/06/2023 10:47 AM EDT 09/06/2023 10:47 AM EDT us Ally Ferguson MD LAB BLOOD ORDERAB LES Final Result Performing Organization Address City/[facility]/ZIP Co de Phone Number [facility] [address] [place] [address] [phone] * Pap Smear (05/17/2023 12:00 AM EST) Swab Historical Provider MD LAB CYTOLOGY ORDERABLES F inal Result [facility] [address] [place] [address] * HPV mRNA E6/E7 (02/03/2021 9:37 AM EDT) HPV nRNA E6/E7 Not Detected Not Detected [facility] Comment: Methodology: Ce[employer]ounder-Mediated Amplification This assay detects E6/E7 viral messenger RNA (mRNA) from 14 high-risk HPV types (16,18,31,33,35,39,45,51,52,56,58,59,66,68). The analytical performance characteristics of this assay have been determined by [employer]. The modifications have not been cleared or approved by the FDA. This assay has been validated pursuant to the CLIA regulations and is used for clinical purposes. For additional information, please refer to http://Med[employer].com.Doctor [employer] Work/faq/OHC218x9 (This link if provided for information/ educational purposes only.) HPV nRNA E6/E7 Not Detected Not Detected [facility] Comment: Methodology: Ceo [employer] Founder-Mediated Amplification This assay detects E6/E7 viral messenger RNA (mRNA) from 14 high-risk HPV types (16,18,31,33,35,39,45,51,52,56,58,59,66,68). The analytical performance characteristics of this assay have been determined by [employer]. The modifications have not been cleared or approved by the FDA. This assay has been validated pursuant to the CLIA regulations and is used for clinical purposes. For additional information, please refer to http://Medpric[employer].com.[employer] Work/faq/LDS133s1 (This link if provided for information/ educational purposes only.) 02/03/2021 9:37 AM EDT Jen PARKM LAB BLOOD ORDERABLES Araceli l Result [facility] [address] from Last 3 Months or Most Recently Relevant to Health Maintenance Insurance [facility] STANDARD MEDICARE * Guarantor: Smith, Natali Account Type Relation to Patient Date of Phone Billing Address Personal/Family Self [address] [place] Care Teams Chief Chemist Relationship Specialty Start Date End Date Ally Ferreira MD [address] [place] [phone] PCP - General Internal Medicine 07/25/22 [facility] 12/25/24
--- OUTSIDE RECORDS SUMMARY | 2025-02-12 18:21 | XMS_ITS | Encounter Summary ---
Author Organization [facility] Address [address] [facility] [address] [place] [address] Phone Care Team Providers Care Tester Operator Name Role Phone Azucena Bradley MD Primary Care Provider [phone] Reason for Visit * Reason Comments Med Refill Encounter Details Date Type Department Care Team ([facility] st Contact Info) Description 06/04/2023 Refill [facility] [address] [place] [address] [place] [phone] Wesley Pagan MD [address] [facility] [address] [place] [phone] Social History Tobacco Use Types Packs/Day Years [...] on filedocumented in this encounter Care Teams Tester Operator Relationship Specialty Start Date End Date Azucena Bradley MD [address] [place] [address], Floor [address] [place] [address] PCP - General Internal Medicine 01/22/24 documented as of this encounter
--- OUTSIDE RECORDS SUMMARY | 2025-02-12 18:21 | XMS_ITS | Encounter Summary ---
Author Organization [facility] Address [address] [place] [phone] Phone Care Team Providers Care Degree Clerk Name Role Phone Pcp, Unknown Primary Care Provider Ally Hernandez MD Primary Care Pro vider Encounter Details Date Type Department Care Team (Late st Contact Info) Description 03/07/2022 Procedure Pass [facility] - RF/IR [address] [facility], 2nd [place] [address] Social History Tobacco Use Types Packs/Day Years [...] documented as of this encounter Care Teams Degree Clerk Relationship Specialty Start Date End Date Pcp, Unknown PCP - General 07/29/21 12/28/24 Ally Ferreira MD [address] [place] [address] PCP - General Internal Medicine 12/29/24 documented as of this encounter Additional Source Comments The information contained in this document represents components of the legal health record. It is not the complete legal health record.[facility]
--- OUTSIDE RECORDS SUMMARY | 2025-02-12 18:21 | XMS_ITS | Encounter Summary ---
Author Organization [employer] Address [address] 7[address] [place] [address] Care Team Providers Care Wide Area Network Systems Administrator Name Role Phone Ally Ferreira MD Primary Care Pro vider Reason for Visit * Reason Comments Med Refill Encounter Details Date Type Department Care Team ([facility] st Contact Info) Description 05/01/2023 Refill [facility] [address] [place], [place] [phone] Jen Lozoya, VIVIAN [address] [place] [address] Social History Tobacco Use Types Packs/Day Years [...] Upcoming Encounters Date Type Department Care Team ([facility] st Contact Info) Description 06/02/2025 1:00 PM EST Office Visit [facility] [address] [place], [place] [phone] Antoinette Zhou, OD [address] [place] [address] documented as of this encounter Visit Diagnoses Not on filedocumented in this encounter Additional Health Concerns Assessment Noted Time PHQ-9 Depression Total Score: 0 08/11/19 23 9:11 AM EDT documented as of this encounter Care Teams Wide Area Network Systems Administrator Relationship Specialty Start Date End Date Ally Frereira MD [address] [place], [place] [phone] PCP - General Internal Medicine 07/25/22 [facility] 12/25/24 documented as of this encounter
--- OUTSIDE RECORDS SUMMARY | 2025-02-12 18:21 | XMS_ITS | Encounter Summary ---
Author Organization [facility] Address [address] [place] [address] Phone Care Team Providers Care Hospice Liaison Name Role Phone Ally Ferreira MD Primary Care Pro vider Reason for Visit * Reason Comments Med Change Request Encounter Details Date Type Department Care Team (Late st Contact Info) Description 01/01/2025 Refill [facility] [address] [place] [address] Kiet Hidalgo MD [address] [place] [address] Med Change Request Social History Tobacco Use [...] documented as of this encounter Care Teams Hospice Liaison Relationship Specialty Start Date End Date Ally Ferreira MD [address] [place] [address] PCP - General Internal Medicine 12/29/24 documented as of this encounter Additional Source Comments The information contained in this document represents components of the legal health record. It is not the complete legal health record.[facility]
--- OUTSIDE RECORDS SUMMARY | 2025-02-12 18:21 | XMS_ITS | Encounter Summary ---
Author Organization [facility] Address [address] [place] [address] Phone Care Team Providers Care Cmm Programmer Name Role Phone Ally Ferreira MD Primary Care Pro vider Reason for Visit * Reason Comments Med Change Request Encounter Details Date Type Department Care Team (Late st Contact Info) Description 01/08/2025 Refill [facility] [address] [place] [address] Kiet Hidalgo MD 30 [place] [address] Med Change Request Social History Tobacco Use [...] documented as of this encounter Care Teams Cmm Programmer Relationship Specialty Start Date End Date Ally Ferreira MD [address] [place] [address] PCP - General Internal Medicine 12/29/24 documented as of this encounter Additional Source Comments The information contained in this document represents components of the legal health record. It is not the complete legal health record.[facility]
--- OUTSIDE RECORDS SUMMARY | 2025-02-12 18:21 | XMS_ITS | Encounter Summary ---
Author Organization [facility] Address [address] [place] [address] [place] [address] Phone Care Team Providers Care Immunology Specialist Name Role Phone Azucena Bradley MD Primary Care Provider [phone] Reason for Visit * Reason Comments Med Refill Encounter Details Date Type Department Care Team (Late st Contact Info) Description 12/24/2021 Refill [facility] [address] [place] [address] [place] [address] Forrest Adamson MD Social History [...] on filedocumented in this encounter Care Teams Immunology Specialist Relationship Specialty Start Date End Date Azucena Bradley MD [address] [place] [address], [facility] 3 [place] [address] PCP - General Internal Medicine 01/22/24 documented as of this encounter
--- OUTSIDE RECORDS SUMMARY | 2025-02-12 18:21 | XMS_ITS | Encounter Summary ---
Author Organization [facility] Address [address] [place] [address] [place] [address] Phone Care Team Providers Care Windows Migration Technician Name Role Phone Azucena Bradley MD Primary Care Provider [phone] Reason for Visit * Reason Comments Med Refill Encounter Details Date Type Department Care Team (Late st Contact Info) Description 06/22/2022 Refill [facility] [address] [place] [address] [place] [address] Forrest Adamson MD Social History Tobacco [...] on filedocumented in this encounter Care Teams Windows Migration Technician Relationship Specialty Start Date End Date Azucena Bradley MD [address] [place] [address], [facility] 3 [place] [address] PCP - General Internal Medicine 01/22/24 documented as of this encounter
--- OUTSIDE RECORDS SUMMARY | 2025-02-12 18:21 | XMS_ITS | Encounter Summary ---
Author Organization [facility] Address [address] [place] [address] Phone Care Team Providers Care Long Wall Shear Operator Name Role Phone Ally Ferreira MD Primary Care Pro vider Encounter Details Date Type Department Care Team ([facility] st Contact Info) Description 12/30/2024 Procedure Pass [facility] Admitting Dept Virtual Department [address] [place] [address] Social History Tobacco Use Types Packs/Day Years [...] documented as of this encounter Care Teams Long Wall Shear Operator Relationship Specialty Start Date End Date Ally Ferreira MD [address] [place] [address] PCP - General Internal Medicine 12/29/24 documented as of this encounter Additional Source Comments The information contained in this document represents components of the legal health record. It is not the complete legal health record.[facility]
--- OUTSIDE RECORDS SUMMARY | 2025-02-12 18:21 | XMS_ITS | Encounter Summary ---
Author Organization [facility] Address [address] [facility] [address] [place] [address] Phone Care Team Providers Care Group Director Experience Name Role Phone Azucena Bradley MD Primary Care Provider [phone] Reason for Visit * Reason Comments Med Refill Encounter Details Date Type Department Care Team (Late st Contact Info) Description 09/02/2023 Refill [facility] [address] [place] [address] [place] [phone] Paul Brothers MD [address] [facility] [address] [place] [phone] Social History Tobacco Use Types Packs/Day Years [...] on filedocumented in this encounter Care Teams Group Director Experience Relationship Specialty Start Date End Date Azucena Bradley MD [address] [place] [address], Floor 3 [place] [address] PCP - General Internal Medicine 01/22/24 documented as of this encounter
--- OUTSIDE RECORDS SUMMARY | 2025-02-12 18:21 | XMS_ITS | Encounter Summary ---
Author Organization [employer] Address [address] [place] [address] 7 [place] [address] Care Team Providers Care Dip Stand Loader Name Role Phone Ally Ferreira MD Primary Care Pro vider Reason for Visit * Reason Comments Med Change Request Encounter Details Date Type Department Care Team (Late Contact Info) Description 01/13/2023 Refill [facility] [address] [place], [place] [phone] Ally Ferreira MD [address] [place] [address] Social History Tobacco Use Types Packs/Day Years [...] Description 06/02/2025 1:00 PM EST Office Visit [facility] [address] [place], [place] [phone] Antoinette Zhou, OD [address] [place] [address] documented as of this encounter Visit Diagnoses Not on filedocumented in this encounter Additional Health Concerns Assessment Noted Time PHQ-9 Depression Total Score: 0 08/11/19 23 9:11 AM EDT documented as of this encounter Care Teams Dip Stand Loader Relationship Specialty Start Date End Date Ally Ferreira MD [address] [place] [address] PCP - General Internal Medicine [facility] documented as of this encounter
--- OUTSIDE RECORDS SUMMARY | 2025-02-12 18:21 | XMS_ITS | Encounter Summary ---
Author Organization [employer] Address [address] [place] [address] 7 [place] [address] Care Team Providers Care Superintendent Ammunition Storage Name Role Phone Ally Ferreira MD Primary Care Pro vider Reason for Visit * Reason Onset Date Comments Referral 05/01/2023 Encounter Details Date Type Department Care Team ([facility] st Contact Info) Description 05/01/2023 Telephone [facility] [address] [place], [place] [phone] Ally Ferreira MD [address] [place], [place] [phone] Referral Social History Tobacco Use Types Packs/Day [...] Description 06/02/2025 1:00 PM EST Office Visit [facility] [address] [place], [place] [phone] Antoinette Zhou, LILLIANA [address] [place], [place] [phone] documented as of this encounter Visit Diagnoses Not on filedocumented in this encounter Additional Health Concerns Assessment Noted Time PHQ-9 Depression Total Score: 0 08/11/19 23 9:11 AM EDT documented as of this encounter Care Teams Superintendent Ammunition Storage Relationship Specialty Start Date End Date Ally Ferreira MD [address] [place], [place] [phone] PCP - General Internal Medicine 07[facility] documented as of this encounter
--- OUTSIDE RECORDS SUMMARY | 2025-02-12 18:21 | XMS_ITS | Encounter Summary ---
Author Organization [facility] Address [address] [place] [address] Phone Care Team Providers Care Web Application Tester Name Role Phone Ally Ferreira MD Primary Care Pro vider Encounter Details Date Type Department Care Team (Late st Contact Info) Description 12/31/2024 Procedure Pass [facility] Scan - [facility] [address] [place] [address] Social History Tobacco Use Types Packs/Day Years [...] documented as of this encounter Care Teams Web Application Tester Relationship Specialty Start Date End Date Ally Ferreira MD [address] [place] [address] PCP - General Internal Medicine 12/29/24 documented as of this encounter Additional Source Comments The information contained in this document represents components of the legal health record. It is not the complete legal health record.[facility]
--- OUTSIDE RECORDS SUMMARY | 2025-02-12 18:21 | XMS_ITS | Encounter Summary ---
Author Organization [facility] Address [address] [place] [address] Phone Care Team Providers Care Technical Stenographer Name Role Phone Azucena Bradley MD Primary Care Provider Reason for Visit * Reason Comments Med Refill Encounter Details Date Type Department Care Team (Late st Contact Info) Description 12/25/2021 Refill [facility] [address] [place] [address] [place] [address] Forrest Adamson MD Social History Tobacco [...] on filedocumented in this encounter Care Teams Technical Stenographer Relationship Specialty Start Date End Date Azucena Bradley MD [address] [place] [address], [facility] 3 [place] [address] PCP - General Internal Medicine 01/22/24 documented as of this encounter
== END 2025-02-12 16:25 | disposition home or self-care (01) ==
LOC: HO.CT 16:24
PROVIDERS: PCP Student in an Organized Health Care Education/Training Program; Visit Provider Hospitalist
DX: R91.8 Other nonspecific abnormal finding of lung field (principal)
CPT/HCPCS: 71250

== ENCOUNTER → 2025-02-12 16:25 | Outpatient (BNV) | payer MEDICARE, MEDICAID, SELFPAY | PROVIDERS: PCP Student in an Organized Health Care Education/Training Program; Visit Provider Radiology Diagnostic Radiology | DX: R91.8 Other nonspecific abnormal finding of lung field (principal) | CPT/HCPCS: 71250 ==

== ENCOUNTER 2025-02-24 10:55 | Outpatient (AMB) | payer MEDICARE, MEDICAID, SELFPAY ==
--- OUTSIDE RECORDS SUMMARY | 2025-02-19 19:31 | XMS_ITS | Continuity of Care Document ---
Author Organization [facility] ter Address [address] [place] [id number]- Care Team Providers Care Medical Receptionist Name Role Phone Orlando Ferguson MD, Ally Phillips Primary Care Alexandrea cierra [id number] Date[facility]): [facility]/18/25 - 02/19/[address] [address]- Encounter Diagnosis Hand pain(Final) - 02/19/25 Discharge Disposition: A-D/C Home Attending Physician: Deena Rosenbaum DO Admitting Physician: Deena Rosenbaum DO Referring Physician: Not on Staff, Referring MD Encounter Type: Disch ES Allergies, Adverse Reactions, Alerts Substance Criticality Severity Reaction Reaction Severity Status chlorhexidine topical skin sensitivity Active iodinated radiocontrast dyes Itching Active Adhesive Bandage Act dori traMADol seizures Active oxyCODONE Low criticality Mild Itching Acti ve Immunizations Given and Recorded Vaccine Date Status Refusal Reason SARS-CoV-2(COVID-19)mRNA-LNP vac([id number]) 05/13/24 Recorded SARS-CoV-2(COVID-19)mRNA-LNP vac([id number]) 06/12/23 Recorded influenza virus vaccine, inactivated 02/08/24 Pedro rded influenza virus vaccine, inactivated 01/11/23 Pedro rded influenza virus vaccine, inactivated 05/27/19 Give n influenza virus vaccine, inactivated 04/02/14 Pedro rded pneumococcal 20-valent conjugate vaccine 04/26/23 Recorded [id number] 12y+ bivalent booster vax 01/26/22 Recorded SARS-CoV-2 (COVID-19) mRNA-1273 vaccine 03/30/21 R ecorded SARS-CoV-2 (COVID-19) mRNA-1273 vaccine 07/09/20 R ecorded SARS-CoV-2 (COVID-19) mRNA-1273 vaccine 05/26/20 R ecorded Hepatitis A Adult Vaccine 12/16/19 Recorded tetanus/diphtheria/pertussis, acel(Tdap) 12/16/19 Recorded tetanus/diphtheria/pertussis, acel(Tdap) 01/31/12 Recorded Hepatitis B Vaccine (old term) 04/16/19 Recorded Hepatitis B Vaccine (old term) 09/27/18 Recorded Hepatitis B Vaccine (old term) 07/29/18 Recorded pneumococcal 23-valent vaccine 08/21/18 Given pneumococcal 23-valent vaccine 04/16/13 Recorded pneumococcal 23-valent vaccine 01/30/13 Recorded pneumococcal 13-valent vaccine 08/02/18 Recorded Boostrix (Tdap) (oldterm) 03/24/15 Given Fluarix (oldterm) 01/20/15 Given Human Papillomavirus Vaccine 03/31/08 Recorded Human Papillomavirus Vaccine 02/26/07 Recorded Human Papillomavirus Vaccine 01/22/07 Recorded hepatitis B pediatric vaccine 05/13/07 Recorded hepatitis B pediatric vaccine 07/25/96 Recorded hepatitis B pediatric vaccine 10/24/95 Recorded hepatitis B pediatric vaccine 09/17/95 Recorded Meningococcal Conjugate Vaccine 04/26/07 Recorded Varicella Virus Vaccine 07/06/05 Recorded Varicella Virus Vaccine 12/27/04 Recorded tetanus-diphtheria toxoids (Td) 12/27/04 Recorded Poliovirus Vaccine, Inactivated 09/11/95 Recorded Diphth/haemophilus/pertussis/tet/polio 05/05/93 Re corded Diphth/haemophilus/pertussis/tet/polio 02/22/93 Re corded Diphth/haemophilus/pertussis/tet/polio 12/22/92 Re corded Measles/Mumps/Rubella Virus Vaccine 12/22/92 Recor ded Measles/Mumps/Rubella Virus Vaccine 09/10/92 Recor ded Medications acetaminophen 325 mg oral tablet 650 mg, By Mouth, 4 times a day, PRN, # 50 tablet, Refills 0, Tot. Refills 0, Maintenance, Pain , Mild, 12/24/24 12:42:00 PM EDT, Route to Pharmacy Electronically, [facility], Partial fill upon patient request if the prescription is for a schedule II opioid drug., 155, cm, 12/24/24 7:51:00 EDT, Height, 71, kg, 12/19/24 11:27:00 EDT, Dry Weight Start Date: 12/24/24 Status: Ordered Medication Dispense Status: Completed Quantity: 50.0 Unit: tablet Total Allowed Fills: 1 Fills Dispensed: 0 aspirin 81 mg oral delayed release tablet 1 tablet = 81 mg, By Mouth, Daily, Stop 03/25/25., # 90 tablet, 0 Refills, Maintenance, 12/24/24 12:43:00 PM EDT, CR Tablet, [facility], Partial fill upon patient request if the prescription is for a schedule II opioid drug., 155, cm, 12/24/24 7:51:00 EDT, Height, 71, kg, 12/19/24 11:27:00 EDT, Dry Weight Start Date: 12/24/24 Stop Date: 03/24/25 Status: Ordered Medication Dispense Status: Completed Quantity: 90.0 Unit: tablet Total Allowed Fills: 1 Fills Dispensed: 0 calcitriol 0.25 mcg oral capsule 1 capsule = 0.25 mcg, By Mouth, Every Sunday, Sunday and Sunday, # 13 capsule, 0 Refills, Maintenance, 12/04/21 12:52:00 PM EDT, Capsule, [facility] #[id number], Partial fill upon patient request if the prescription is for a schedule II opioid drug., 156, cm, 12/04/21 7:23:00 EDT, Height, 63.8, kg, 11/25/21 12:14:00 EDT, Dry Weight Start Date: 12/04/21 Status: Ordered Medication Dispense Status: Completed Quantity: 13.0 Unit: capsule Total Allowed Fills: 1 Fills Dispensed: 0 carvedilol 25 mg oral tablet 1.5 tablets, By Mouth, 2 times a day Start Date: 01/25/20 Status: Ordered Medication Dispense Status: Completed Total Allowed Fills: 1 Fills Dispensed: 0 cetirizine 10 mg oral tablet See Instructions, Take 1 tablet (10mg) 12 hours prior to procedure. Take 1 tablet (10mg) 2 hours prior to procedure, # 2 tablet, 0 Refills, Maintenance, 12/05/24 11:53:00 AM EDT, [facility]/pharmacy #[id number], Partial fill upon patient request if the prescription is for a schedule II opioid drug., 155, cm, 12/05/24 11:37:00 EDT, Height, 71, kg, 12/05/24 11:37:00 EDT, Dry Weight Start Date: 12/05/24 Status: Ordered Medication Dispense Status: Completed Quantity: 2.0 Unit: tablet Total Allowed Fills: 1 Fills Dispensed: 0 Daily Alyx 1 tablet, By Mouth, 0 Refills, Maintenance, 10/29/18 1:50:40 AM EDT Start Date: 10/29/18 Status: Ordered Medication Dispense Status: Completed Total Allowed Fills: 1 Fills Dispensed: 0 Fiasp 100 units/mL injectable solution INJECT UP TO 50 UNITS PER DAY VIA INSULIN PUMP SUBCUTANEOUSLY 2 TIMES A DAY Start Date: 09/19/23 Status: Ordered Medication Dispense Status: Completed Total Allowed Fills: 1 Fills Dispensed: 0 folic acid 1 mg oral tablet 1 mg, 1, tablet, By Mouth, Daily, # 30 tablet, Refills 0, Maintenance, 05/15/24 2:34:00 PM EST, Partial fill upon patient request if the prescription is for a schedule II opioid drug. Start Date: 05/15/24 Status: Ordered Medication Dispense Status: Completed Quantity: 30.0 Unit: tablet Total Allowed Fills: 1 Fills Dispensed: 0 Glucagon Emergency Kit See Instructions, PRN, # 2 each, Refills 3, Tot. Refills 3, Maintenance, Blood Glucose, use as directed for Type 1 Diabetes Mellitus If you develop low blood sugars, please use this glucagon emergency kit., 09/20/23 12:14:00 PM EDT, Supply, 155, cm, 08/28/23 10:25:00 EDT, Height, 67.2, kg, 07/12/23 13:24:00 EDT, Dry Weight Start Date: 09/20/23 Stop Date: 01/18/24 Status: Ordered Medication Dispense Status: Completed Quantity: 2.0 Unit: each Total Allowed Fills: 4 Fills Dispensed: 0 hydrALAZINE 25 mg oral tablet 50 mg, Tablet, By Mouth, Once, STAT, 02/19/25 5:56:00 PM EST, Stop date 02/19/25 6:15:37 PM EST Start Date: 02/19/25 Stop Date: 02/19/25 Status: Completed Medication Dispense Status: Completed Total Allowed Fills: 1 Fills Dispensed: 0 hydrALAZINE 25 mg oral tablet 50 mg, By Mouth, 2 times a day, Refills 0, Maintenance, 01/28/25 10:45:00 AM EDT, Partial fill uponpatient request if the prescription is for a schedule II opioid drug. Start Date: 01/28/25 Status: Ordered Medication Dispense Status: Completed Total Allowed Fills: 1 Fills Dispensed: 0 HYDROmorphone 4 mg oral tablet 1 tablet = 4 mg, By Mouth, Every 4 hours, PRN for pain, # 10 tablet, 0 Refills, Maintenance, 02/19/25 7:29:00 PM EST, Tablet, [facility] #[id number], Partial fill upon patient request if the prescription is for a schedule II opioid drug., 155, cm, 02/19/25 18:50:00 EST, Height, 62, kg, 02/19/25 18:50:00EST, Dry Weight Start Date: 02/19/25 Status: Ordered Medication Dispense Status: Completed Quantity: 10.0 Unit: tablet Total Allowed Fills: 1 Fills Dispensed: 0 Lyrica 25 mg oral capsule See Instructions, 1 capsule 3 times per week after dialysis, # 30 capsule, 0 Refills, Maintenance, 02/19/25 7:18:00 PM EST, Capsule, [id number], Partial fill upon patient request if the prescription is for a schedule II opioid drug., 155, cm, 02/19/25 18:50:00 EST, Height, 62, kg, 02/19/25 18:50:00 EST, Dry Weight Start Date: 02/19/25 Status: Ordered Medication Dispense Status: Completed Quantity: 30.0 Unit: capsule Total Allowed Fills: 1 Fills Dispensed: 0 montelukast 10 mg oral tablet 10 mg, 1, tablet, By Mouth, Daily, Refills 0, Maintenance, 03/31/24 12:18:00 PM EST, Partial fill upon patient request if the prescription is for a schedule II opioid drug. Start Date: 03/31/24 Status: Ordered Medication Dispense Status: Completed Total Allowed Fills: 1 Fills Dispensed: 0 NIFEdipine 30 mg oral tablet, extended release 90 mg, ER Tablet, By Mouth, Once, STAT, 02/19/25 5:57:00 PM EST, Stop date 02/19/25 6:15:38 PM EST Notes: Do Not Crush. Start Date: 02/19/25 Stop Date: 02/19/25 Status: Completed Medication Dispense Status: Completed Total Allowed Fills: 1 Fills Dispensed: 0 NIFEdipine 90 mg oral tablet, extended release 90 mg, 1, tablet, By Mouth, Daily, # 30 tablet, Refills 0, Tot. Refills 0, Maintenance, 09/26/21 2:38:00 PM EDT, Route to Pharmacy Electronically, [facility], Partial fill upon patient request if the prescription is for a schedule II opioid drug., 156, cm, 09/26/21 11:54:00 EDT, Height, 65.7, kg, 09/16/21 1:52:00 EDT, Dry Weight Start Date: 09/26/21 Status: Ordered Medication Dispense Status: Completed Quantity: 30.0 Unit: tablet Total Allowed Fills: 1 Fills Dispensed: 0 Plavix 75 mg oral tablet 75 mg, By Mouth, Daily, Stop 03/25/25., # 90 tablet, Refills 0, Tot. Refills 0, Maintenance, 12/24/24 12:43:00 PM EDT, Route to Pharmacy Electronically, [facility], Partial fill upon patient request if the prescription is for a schedule II opioid drug., 155, cm, 12/24/24 7:51:00 EDT, Height, 71, kg, 12/19/24 11:27:00 EDT, Dry Weight Start Date: 12/24/24 Stop Date: 03/24/25 Status: Ordered Medication Dispense Status: Completed Quantity: 90.0 Unit: tablet Total Allowed Fills: 1 Fills Dispensed: 0 senna 187 mg oral tablet 2 tablet = 17.2 mg, By Mouth, 2 times a day, 0 Refills, Maintenance, 01/28/25 10:45:00 AM EDT, Tablet, Partial fill upon patient request if the prescription is for a schedule II opioid drug. Start Date: 01/28/25 Status: Ordered Medication Dispense Status: Completed Total Allowed Fills: 1 Fills Dispensed: 0 Sensipar 30 mg oral tablet 1 tablet = 30 mg, By Mouth, Every Sunday, Sunday and Sunday, # 13 tablet, 0 Refills, Maintenance, 12/04/21 12:52:00 PM EDT, Tablet, [facility]/pharmacy #[id number], Partial fill upon patient request if the prescription is for a schedule II opioid drug., 156, cm, 12/04/21 7:23:00 EDT, Height, 63.8, kg, 11/25/21 12:14:00 EDT, Dry Weight Start Date: 12/04/21 Status: Ordered Medication Dispense Status: Completed Quantity: 13.0 Unit: tablet Total Allowed Fills: 1 Fills Dispensed: 0 sevelamer carbonate 800 mg oral tablet 4 tablet = 3,200 mg, By Mouth, 3 times a day, 0 Refills, Maintenance, 09/19/23 2:49:00 PM EDT, Tablet, Partial fill upon patient request if the prescription is for a schedule II opioid drug. Start Date: 09/19/23 Status: Ordered Medication Dispense Status: Completed Total Allowed Fills: 1 Fills Dispensed: 0 Trueplus Glucose 15 g/32 mL oral gel See Instructions, Take if Blood sugar <40 or signs of confusion, # 6 each, 0 Refills, Maintenance, 04/05/24 1:02:00 PM EST, [facility], Partial fill upon patient request if the prescription is for a schedule II opioid drug., 156, cm, 04/03/24 17:48:00 EST, Height, 68.6, kg, 04/03/24 17:48:00 EST, Dry Weight Start Date: 04/05/24 Status: Ordered Medication Dispense Status: Completed Quantity: 6.0 Unit: each Total Allowed Fills: 1 Fills Dispensed: 0 Valtrex 500 mg oral tablet 500 mg, 1, tablet, By Mouth, Daily in AM, Refills 0, Maintenance, 10/03/21 7:26:00 PM EDT, Partial fill upon patient request if the prescription is for a schedule II opioid drug. Start Date: 10/03/21 Stop Date: 11/02/21 Status: Ordered Medication Dispense Status: Completed Total Allowed Fills: 1 Fills Dispensed: 0 Vitamin B6 50 mg oral tablet 50 mg, 1, tablet, By Mouth, Daily, # 7 tablet, Refills 0, Maintenance, 05/15/24 2:34:00 PM EST, Partial fill upon patient request if the prescription is for a schedule II opioid drug. Start Date: 05/15/24 Stop Date: 05/22/24 Status: Ordered Medication Dispense Status: Completed Quantity: 7.0 Unit: tablet Total Allowed Fills: 1 Fills Dispensed: 0 Problem List Condition Confirmation Course Effective Dates Status H ealth Status Informant Abnormal uterine bleeding (AUB) Confirmed Active Anxiety Confirmed Active Ascites Confirmed Active Dialysis patient Confirmed Active End stage renal disease Confirmed Active Hypertension Confirmed Active Highly reliable contraception needed Confirmed Active Poor historian Confirmed Active Diabetic nephropathy with proteinuria Confirmed Active Last Pap smear 05/17/23 negative with negative HPV Confirmed Active Tricuspid regurgitation Confirmed Active Type I diabetes mellitus uncontrolled Confirmed Active Results Radiology Reports * Exam Date Time Procedure Performing Provider Status 02/19/25 5:[address] Angio Chest Auth (Dino zhao) Notes: (CT Angio Chest) Reason For Exam: PE suspected, Intermediate prob, positive D-dimer,;Other: RESULT: CT Angio Chest CT Angio Chest INDICATION: Hx of Present Illness: pt had 3 hrs of her dialysis treatment today, unable to finish it due to bilat hand pain with some swelling, given tylenol with no change, denies other symptoms at this time; Reason: Other:; PE suspected, Intermediate prob, positive D-dimer,; Clinical Question(s):Pulmonary Embolism; Order Comment: TECHNIQUE: Spiral CTA of the chest was performed after rapid IV contrast administration without cardiac gating, triggered by an ASHOK on the main pulmonary artery. Images are formatted in multiple planes using 2-D multiplanar and 3-D maximum intensity projection. 60 cc of Isovue 300 100cc vials was administered intravenously. Weight-based protocol using automatic tube modulation was used to optimize exposure parameters. CTDIvol Body: 8.03 mGy, DLP Body: 309 mGy*cm. COMPARISONS: CT chest 08/02/2023 ANGIOGRAPHIC FINDINGS: No pulmonary embolism to the subsegmental level. Normal caliber pulmonary arteries. No acute aortic abnormality seen on this study performed without cardiac gating. NON-ANGIOGRAPHIC FINDINGS: Restoration Silversmith view findings, lines and tubes: Right IJ tunneled dialysis catheter in satisfactory position with tip proximal right atrium. Trachea and airways: Patent without evidence of tracheal or endobronchial lesion. Lungs and pleura: Right lower lobe calcified granuloma. Scattered subcentimeter nodules similar to prior. Clear lungs. No effusion or pneumothorax. Mediastinum and aleks: No mass or hematoma. No mediastinal or hilar lymphadenopathy. No esophageal abnormality. Heart: Heart is normal in size. No pericardial effusion. Moderate coronary artery calcification. Chest wall soft tissues: No acute abnormality. Diaphragm: Intact. Upper abdomen: No significant abnormality. Bones: No acute abnormality. IMPRESSION: No evidence of pulmonary embolism. WSN: [id number] Ordering Physician: Lissa Matt Dictated By: Yunier Weiss MD Dictated Date/Time: 02/19/25 5:55 pm Reviewed By: Yunier Weiss MD Signed By: Yunier Weiss MD Signed Date/Time: 02/19/25 5:55 pm Transcribed By: CHRISTINE Transcribed Date/Time: 02/19/25 5:50 pm * Exam Date Time Procedure Performing Provider Status 02/19/25 3:44 PM US Pelvic Doppler Comp Au th (Verified) Notes: (US Pelvic Doppler Comp) Reason For Exam: Pain RESULT: US Pelvic Doppler Comp US Transabd 1st Trimester Only, US Uterus Transvaginal, US Pelvic Doppler Comp Hx of Present Illness: pt had 3 hrs of her dialysis treatment today, unable to finish it due to bilat hand pain with some swelling, given Tylenol with no change, denies other symptoms at this time; Reason: Pain; Clinical Question(s): Ectopic; Order Comment: US < 14 Week 0 Day Transabdominal Single Prep. Beta hCG 10. COMPARISON: CT abdomen and pelvis 01/23/2025 TECHNIQUE: Transabdominal and transvaginal pelvic ultrasound with grayscale, color Doppler, and spectral Doppler analysis. 3-D rendered images were obtained to further evaluate uterine and endometrial morphology. FINDINGS: Last menstrual period (LMP): Unknown. UTERUS AND GESTATIONAL STRUCTURES: No intrauterine identified. Intrauterine contraceptive device in place and appears in satisfactory position. Uterus: 8.7 x 3.9 x 3.5 cm, volume 63.3 cc. Severe myometrial calcifications. No masses. No abnormalities of the cervix. RIGHT OVARY: Limited visualization on both transabdominal and transvaginal imaging. Size: 2.9 x 2.0 x 3.1 cm, volume 9.4 cc. Morphology: Echotexture not well evaluated. No pathologic cysts or mass. On transabdominal imaging,a candidate for the ovary demonstrates normal color Doppler appearance and normal arterial and venous waveforms. On transvaginal imaging, the presumed right ovary demonstrates diminutive color Doppler flow and waveforms, presumably technical in nature due to shadowing artifact. LEFT OVARY: Size: 4.9 x 2.0 x 3.9 cm, volume 19.9 cc. Morphology: Normal echotexture. Simple appearing 2.2 cm left ovarian cyst, likely physiologic. A adjacent 2.8 x 3.1 x 2.1 cm partially septated ovoid cystic focus may represent an additional cyst or a small simple hydrosalpinx. Normal color Doppler appearance. Normal arterial and venous waveforms. ADNEXA: Small volume free fluid adjacent to left ovary. IMPRESSION: 1. Intrauterine contraceptive device in satisfactory position. No intrauterine identified. Severe myometrial calcifications consistent with history of diabetes. 2. Limited visualization of right ovary with limited flow evaluation. No specific evidence of active torsion. 3. Physiologic-appearing left ovary containing a 2.8 cm cyst versus simple hydrosalpinx without suspicious features. WSN: [id number] Ordering Physician: Lissa Matt Dictated By: Juan Diego Nielson MD Dictated Date/Time: 02/19/25 4:08 pm Reviewed By: Juan Diego Nielson MD Signed By: Juan Diego Nielson MD Signed Date/Time: 02/19/25 4:08 pm Transcribed By: CHRISTINE Transcribed Date/Time: 02/19/25 4:01 pm * Exam Date Time Procedure Performing Provider Status 02/19/25 3:44 PM US Uterus Transvaginal Auth (Verified) Notes: (US Uterus Transvaginal) Reason For Exam: Pain RESULT: US Uterus Transvaginal US Transabd 1st Trimester Only, US Uterus Transvaginal, US Pelvic Doppler Comp Hx of Present Illness: pt had 3 hrs of her dialysis treatment today, unable to finish it due to bilat hand pain with some swelling, given Tylenol with no change, denies other symptoms at this time; Reason: Pain; Clinical Question(s): Ectopic; Order Comment: US < 14 Week 0 Day Transabdominal Single Prep. Beta hCG 10. COMPARISON: CT abdomen and pelvis 01/23/2025 TECHNIQUE: Transabdominal and transvaginal pelvic ultrasound with grayscale, color Doppler, and spectral Doppler analysis. 3-D rendered images were obtained to further evaluate uterine and endometrial morphology. FINDINGS: Last menstrual period (LMP): Unknown. UTERUS AND GESTATIONAL STRUCTURES: No intrauterine identified. Intrauterine contraceptive device in place and appears in satisfactory position. Uterus: 8.7 x 3.9 x 3.5 cm, volume 63.3 cc. Severe myometrial calcifications. No masses. No abnormalities of the cervix. RIGHT OVARY: Limited visualization on both transabdominal and transvaginal imaging. Size: 2.9 x 2.0 x 3.1 cm, volume 9.4 cc. Morphology: Echotexture not well evaluated. No pathologic cysts or mass. On transabdominal imaging,a candidate for the ovary demonstrates normal color Doppler appearance and normal arterial and venous waveforms. On transvaginal imaging, the presumed right ovary demonstrates diminutive color Doppler flow and waveforms, presumably technical in nature due to shadowing artifact. LEFT OVARY: Size: 4.9 x 2.0 x 3.9 cm, volume 19.9 cc. Morphology: Normal echotexture. Simple appearing 2.2 cm left ovarian cyst, likely physiologic. A adjacent 2.8 x 3.1 x 2.1 cm partially septated ovoid cystic focus may represent an additional cyst or a small simple hydrosalpinx. Normal color Doppler appearance. Normal arterial and venous waveforms. ADNEXA: Small volume free fluid adjacent to left ovary. IMPRESSION: 1. Intrauterine contraceptive device in satisfactory position. No intrauterine identified. Severe myometrial calcifications consistent with history of diabetes. 2. Limited visualization of right ovary with limited flow evaluation. No specific evidence of active torsion. 3. Physiologic-appearing left ovary containing a 2.8 cm cyst versus simple hydrosalpinx without suspicious features. WSN: [id number] Ordering Physician: Lissa Matt Dictated By: Juan iDego Nielson MD Dictated Date/Time: 02/19/25 4:08 pm Reviewed By: Juan Diego Nielson MD Signed By: Juan Diego Nielson MD Signed Date/Time: 02/19/25 4:08 pm Transcribed By: CHRISTINE Transcribed Date/Time: 02/19/25 4:01 pm * Exam Date Time Procedure Performing Provider Status 02/19/25 3:44 PM US Transab d 1st Trimester Only Auth (Verified) Notes: (US Transabd 1st Trimester Only) Reason For Exam: Pain RESULT: US Transabd 1st Trimester Only US Transabd 1st Trimester Only, US Uterus Transvaginal, US Pelvic Doppler Comp Hx of Present Illness: pt had 3 hrs of her dialysis treatment today, unable to finish it due to bilat hand pain with some swelling, given Tylenol with no change, denies other symptoms at this time; Reason: Pain; Clinical Question(s): Ectopic; Order Comment: US < 14 Week 0 Day Transabdominal Single Prep. Beta hCG 10. COMPARISON: CT abdomen and pelvis 01/23/2025 TECHNIQUE: Transabdominal and transvaginal pelvic ultrasound with grayscale, color Doppler, and spectral Doppler analysis. 3-D rendered images were obtained to further evaluate uterine and endometrial morphology. FINDINGS: Last menstrual period (LMP): Unknown. UTERUS AND GESTATIONAL STRUCTURES: No intrauterine identified. Intrauterine contraceptive device in place and appears in satisfactory position. Uterus: 8.7 x 3.9 x 3.5 cm, volume 63.3 cc. Severe myometrial calcifications. No masses. No abnormalities of the cervix. RIGHT OVARY: Limited visualization on both transabdominal and transvaginal imaging. Size: 2.9 x 2.0 x 3.1 cm, volume 9.4 cc. Morphology: Echotexture not well evaluated. No pathologic cysts or mass. On transabdominal imaging,a candidate for the ovary demonstrates normal color Doppler appearance and normal arterial and venous waveforms. On transvaginal imaging, the presumed right ovary demonstrates diminutive color Doppler flow and waveforms, presumably technical in nature due to shadowing artifact. LEFT OVARY: Size: 4.9 x 2.0 x 3.9 cm, volume 19.9 cc. Morphology: Normal echotexture. Simple appearing 2.2 cm left ovarian cyst, likely physiologic. A adjacent 2.8 x 3.1 x 2.1 cm partially septated ovoid cystic focus may represent an additional cyst or a small simple hydrosalpinx. Normal color Doppler appearance. Normal arterial and venous waveforms. ADNEXA: Small volume free fluid adjacent to left ovary. IMPRESSION: 1. Intrauterine contraceptive device in satisfactory position. No intrauterine identified. Severe myometrial calcifications consistent with history of diabetes. 2. Limited visualization of right ovary with limited flow evaluation. No specific evidence of active torsion. 3. Physiologic-appearing left ovary containing a 2.8 cm cyst versus simple hydrosalpinx without suspicious features. WSN: [id number] Ordering Physician: Lissa Matt Dictated By: Juan Diego Nielson MD Dictated Date/Time: 02/19/25 4:08 pm Reviewed By: Juan Diego Nielson MD Signed By: Juan Diego Nielson MD Signed Date/Time: 02/19/25 4:08 pm Transcribed By: CHRISTINE Transcribed Date/Time: 02/19/25 4:01 pm * Exam Date Time Procedure Performing Provider Status 02/19/25 3:44 PM US Doppler Ext Upper Venous Bilat Auth (Verified) Notes: (US Doppler Ext Upper Venous Bilat) Reason For Exam: Pain in limb;Other: RESULT: US Doppler Ext Upper Venous Bilat US Doppler Ext Upper Venous Bilat Hx of Present Illness: pt had 3 hrs of her dialysis treatment today, unable to finish it due to bilat hand pain with some swelling, given Tylenol with no change, denies other symptoms at this time; Reason: Pain in limb; Clinical Question(s): Thrombosis COMPARISON: None. IMAGING TECHNIQUE: Ultrasound examination of the bilateral upper extremity deep venous systems was performed using grayscale, color, and spectral wave analysis including response to compression. FINDINGS: RIGHT UPPER EXTREMITY: Internal jugular vein: Patent. No thrombosis. Subclavian vein: Lateral aspect obscured by port. Medial aspect patent. No thrombosis. Axillary vein: Patent. No thrombosis. Brachial vein: Patent. No thrombosis. Basilic vein: Patent. No thrombosis. Cephalic vein: Patent. No thrombosis. LEFT UPPER EXTREMITY: Internal jugular vein: Patent. No thrombosis. Subclavian vein: Patent. No thrombosis. Axillary vein: Patent. No thrombosis. Brachial vein: Patent. No thrombosis. Basilic vein: Patent. No thrombosis. Cephalic vein: Patent. No thrombosis. IMPRESSION: No evidence of venous thrombosis. WSN: [id number] Ordering Physician: Lissa Matt Dictated By: Juan Diego Nielson MD Dictated Date/Time: 02/19/25 3:59 pm Reviewed By: Juan Diego Nielson MD Signed By: Juan Diego Nielson MD Signed Date/Time: 02/19/25 3:59 pm Transcribed By: CHRISTINE Transcribed Date/Time: 02/19/25 3:47 pm * Exam Date Time Procedure Performing Provider Status 02/19/25 12:55 PM Hand Min 3 Views Left Au th (Verified) Notes: (Hand Min 3 Views Left) Reason For Exam: Pain RESULT: Hand Min 3 Views Left Hand Min 3 Views Left, 3 views Hx of Present Illness: pt had 3 hrs of her dialysis treatment today, unable to finish it due to bilat hand pain with some swelling, given tylenol with no change, denies other symptoms at this time; Reason: Pain; Clinical Question(s): Osteomyelitis; rse greater than 100 COMPARISON: None. FINDINGS: No fractures or bone lesions. No arthritic changes. Normal soft tissues. IMPRESSION: No acute osseous abnormalities. Advanced arterial calcifications. Is the patient diabetic?. WSN: [id number] Ordering Physician: Lissa Matt Dictated By: Escobar Pang MD, V Dictated Date/Time: 02/19/25 1:21 pm Reviewed By: Escobar Pang MD, V Signed By: Escobar Pang MD, V Signed Date/Time: 02/19/25 1:21 pm Transcribed By: CHRISTINE Transcribed Date/Time: 02/19/25 1:19 pm * Exam Date Time Procedure Performing Provider Status 02/19/25 12:55 PM Hand Min 3 Views Right A [facility] (Verified) Notes: (Hand Min 3 Views Right) Reason For Exam: Pain RESULT: Hand Min 3 Views Right Hand Min 3 Views Right, 3 views Hx of Present Illness: pt had 3 hrs of her dialysis treatment today, unable to finish it due to bilat hand pain with some swelling, given tylenol with no change, denies other symptoms at this time; Reason: Pain; Clinical Question(s): Osteomyelitis; esr Greater tahn 100 COMPARISON: None. FINDINGS: No fractures or bone lesions. No arthritic changes. Diffuse moderate to severe atherosclerotic vascular calcification. IMPRESSION: No acute osseous abnormality. Diffuse atherosclerotic vascular calcification. WSN: [id number] Ordering Physician: Lissa Matt Dictated By: Ankit Castaneda MD Dictated Date/Time: 02/19/25 1:20 pm Reviewed By: Ankit Castaneda MD Signed By: Ankit Castaneda MD Signed Date/Time: 02/19/25 1:20 pm Transcribed By: CHRISTINE Transcribed Date/Time: 02/19/25 1:17 pm * Exam Date Time Procedure Performing Provider Status 02/19/25 11:01 AM Chest 2 Views Frontal and Lat Auth (Verified) Notes: (Chest 2 Views Frontal and Lat) Reason For Exam: Shortness of Breath RESULT: Chest 2 Views Frontal and Lat Chest 2 Views Frontal and Lat Hx of Present Illness: pt had 3 hrs of her dialysis treatment today, unable to finish it due to bilat hand pain with some swelling, given tylenol with no change, denies other symptoms at this time; Reason: Shortness of Breath; Clinical Question(s): CHF; Order Comment: Pt complaind about hand pain. Possible hand x-rays also.-AJD COMPARISON: Multiple priors with the most recent dated 02/18/2025 at 1943 hours. FINDINGS: LINES AND TUBES: Right IJ tunneled dual lumen dialysis catheter remains in place with tip in the right atrium in excellent position. No change. LUNGS AND PLEURA: Slightly improved pulmonary vascular congestion and interstitial edema. No pleural effusion. No pneumothorax. HEART, MEDIASTINUM AND ALEKS: Heart is normal in size. Normal mediastinal and hilar contour. BONES AND SOFT TISSUES: No acute abnormality. Multiple surgical clips are seen in the soft tissues of the right lower neck unchanged. IMPRESSION: Slightly improved but persistent mild pulmonary vascular congestion and interstitial edema. No pleural effusion. No focal consolidation. WSN: [id number] Ordering Physician: Lissa Matt Dictated By: Escobar Pang MD, V Dictated Date/Time: 02/19/25 11:09 a Reviewed By: Escobar Pang MD, V Signed By: Escobar Pang MD, V Signed Date/Time: 02/19/25 11:09 am Transcribed By: CHRISTINE Transcribed Date/Time: 02/19/25 11:06 am * Exam Date Time Procedure Performing Provider Status 02/18/25 7:48 PM Chest 2 Views Frontal and Lat Auth (Verified) Notes: (Chest 2 Views Frontal and Lat) Reason For Exam: Chest Pain;Other: RESULT: Chest 2 Views Frontal and Lat Chest 2 Views Frontal and Lat Hx of Present Illness: pt had 3 hrs of her dialysis treatment today, unable to finish it due to bilat hand pain with some swelling, given tylenol with no change, denies other symptoms at this time; Reason: Other:; Chest Pain; Clinical Question(s): Other: COMPARISON: December 17, 2004. FINDINGS: LINES AND TUBES: Dialysis catheter tip overlies radiation. LUNGS AND PLEURA: Vascular congestion without overt edema. No focal consolidations. No evidence of pleural effusion. No pneumothorax. HEART, MEDIASTINUM AND ALEKS: Heart is normal in size. Normal mediastinal and hilar contour. BONES AND SOFT TISSUES: No acute abnormality. IMPRESSION: Vascular congestion without overt edema. No focal consolidations. WSN: [id number] Ordering Physician: Dorothea Mccarthy Dictated By: Shiva Teresa DO Dictated Date/Time: 02/18/25 8:00 pm Reviewed By: Shiva Teresa DO Signed By: Shiva Teresa DO Signed Date/Time: 02/18/25 8:00 pm Transcribed By: CHRISTINE Transcribed Date/Time: 02/18/25 7:59 pm Vital Signs Most recent to oldest [Reference Range]: 1 2 3 4 Height 155 cm (02/19/25 6:50 PM) 155 cm (02/19/25 6:15 PM) 155 cm (02/19/25 4:35 PM) Weight 62 kg (02/19/25 6:50 PM) 62 kg (02/19/25 6:15 PM) 62 kg (02/19/25 4:35 PM) Oxygen Saturation [94-100 %] 98 % (02/19/25 6:50 PM) 100 % (02/19/25 6:15 PM) 100 % (02/19/25 4:32 PM) Pulse Rate [55-90 bpm] 60 bpm (02/19/25 6:50 PM) 85 bpm (02/19/25 6:15 PM) 79 bpm (02/19/25 4:32 PM) Body Mass Index [18.5-24.99 kg/m2] 25.81 kg/m2 *H* (02/19/25 6:50 PM) 25.81 kg/m2 *H* (02/19/25 6:15 PM) 25.81 kg/m2 *H* (02/19/25 4:35 PM) Blood Pressure [90-138/55-84 mm Hg] 113/70mm Hg (02/19/25 6:50 PM) 22/114mm Hg *L* (02/19/25 6:15 PM) 222/114mm Hg *H* (02/19/25 6:13 PM) 222/114mm Hg *H* (02/19/25 6:13 PM) Respiratory Rate [16-30 br/min] 16 br/min (02/19/25 6:15 PM) 16 br/min (02/19/25 4:32 PM) 17 br/min (02/19/25 5:09 AM) Temperature [96.8-100.4 DegF] 97.5 DegF (02/19/25 6:50 PM) 99.0 DegF (02/19/25 6:15 PM) 98.2 DegF (02/19/25 5:09 AM) Mode of Delivery (Oxygen) Room air (02/19/25 6:50 PM) Room air (02/19/25 6:15 PM) Room air (02/19/25 4:32 PM) Blood pressure sites Arm, left (02/19/25 6:15 PM) Arm, left (02/19/25 5:09 AM) Arm, left (02/18/25 9:38 PM) Temperature Route Oral (02/19/25 6:50 PM) Oral (02/19/25 6:15 PM) Oral (02/19/25 5:09 AM) Dry Weight 62 kg (02/19/25 6:50 PM) 62 kg (02/19/25 6:15 PM) 62 kg (02/19/25 4:35 PM) Weight Obtained Via Patient/family stated (02/18/25 6:17 PM) Dry Weight Obtained Via Patient/family stated (02/18/25 6:17 PM) Social History Social History Type Response Smoking Status Never smoker entered on: 09/05/14 Sexual Orientation Self described orien tation: ; Straight or heterosexual Sex Sex Representation Female (finding) Status Not Implantable Device List Procedure Provider Procedure Date Device Type Site Cutdown and Repair Brachial Artery Mickey RIVERA, Carlos Trevino 12/09/24 Unknown Arm Upper Device Identifier Serial Number Lot or Batch Number Manufacturing Date Expiration Date Distinct Identification Code MRI Safety Implantable Status Assigning Authority Unknown Unknown Unknown Unknown 01/11/30 Unknown Unknown Active Unk harrietn EKG study * Event Display: ECG 12-Lead Authored Date: Please click on pdf link to open report * Event Display: ECG 12-Lead Authored Date: Ventricular Rate: 82 BPM Atrial Rate: 82 BPM P-R Interval: 152 ms QRS Duration: 74 ms Q-T Interval: 420 ms QTC Calculation(Bazett): 490 ms P [place]: 71 degrees R [place]: -4 degrees T [place]: 67 degrees Normal sinus rhythm QTcB > 480 msec Abnormal ECG When compared with ECG of 05-Dec-2024 11:50, No significant change was found Confirmed by Brandon Dash ([id number]) on 02/20/2025 7:04:55 AM [place]: Brandon Dash Patient Care team information Care Team Personnel Name: Aquiles Rodriguez Position: [facility] Associate Professional Member Role: Lifetime Consulting Provider Address: [address] [place] [address] [address] [facility] [address] Telecom: Name: Tressa Ponce RN Position: S RN Member Role: Primary Care Nurse Name: Tyson Mack RN Position: S RN Member Role: Primary Care Nurse Name: Danisha Medina CNM Position: Reference Physician Member Role: Primary Care Nurse Address: [address] [place] [address] Telecom: Name: Emilia Castaneda RN Position: S RN Member Role: Primary Care Nurse Name: Ananda Chapman RN Position: S RN Member Role: Primary Care Nurse Name: Rubia Wyatt RN Position: S RN Supdane Member Role: Primary Care Nurse Name: Adelaide Kaufman RN Position: S RN Member Role: Primary Care Nurse Name: Alana Murilol RN Position: S RN Member Role: Primary Care Nurse Name: Adelaide Zavaleta RN Position: S RN Member Role: Primary Care Nurse Name: Christel Preciado LPN Position: S RN Member Role: Primary Care Nurse Name: Angella Ahmadi RN Position: [facility] RN Member Role: Primary Care Nurse Name: Caterina Hollingsworth RN Position: [facility] SN RN Member Role: Primary Care Nurse Name: Antoinette Nash Position: [facility] RN Member Role: Primary Care Nurse Name: Renee Johnson Position: [facility] Outreach Member Role: Lifetime Consulting Physician Name: Ally Bellamy RN Position: [facility] RN Member Role: Primary Care Nurse Name: Poornima Potts RN Position: [facility] Rad RN Member Role: Primary Care Nurse Name: Forrest Adamson MD Position: [facility] Renal MD Member Role: Lifetime Consulting Physician Address: [address] [place] [address] [address] [facility] [place] [address]- Telecom: Name: Erin Mendoza RN Position: [facility] RN Member Role: Primary Care Nurse Name: Becca Edwards RN Position: [facility] RN Member Role: Primary Care Nurse Name: Caron Foster RN Position: [facility] RN Member Role: Primary Care Nurse Name: Juliane Evangelista RN Position: [facility] OB RN Member Role: Primary Care Nurse Name: Herbie Ibrahim RN Position: [facility] RN Supv Member Role: Primary Care Nurse Name: Mimi Beckham RN Position: [facility] RN Member Role: Primary Care Nurse Name: Dwight Harry RN Position: [facility] RN Member Role: Primary Care Nurse Name: Vania Arias RN Position: [facility] RN Member Role: Primary Care Nurse Name: Erika Juarez Position: [facility] RN Member Role: Primary Care Nurse Name: Noble Ricardo RN Position: [facility] RN Member Role: Primary Care Nurse Name: Annie Fernandez RN Position: [facility] RN Member Role: Primary Care Nurse Name: Deloris Weiss RN Position: [facility] RN Member Role: Primary Care Nurse Name: Tricia Feliz RN Position: [facility] RN Member Role: Primary Care Nurse Name: Daysi Cary RN Position: [facility] RN Member Role: Primary Care Nurse Name: Tricia Christopher LPN Position: [facility] RN Member Role: Primary Care Nurse Name: Soila Burch RN Position: [facility] RN Member Role: Primary Care Nurse Name: Katie Soriano RN Position: [facility] RN Member Role: Primary Care Nurse Name: Emily Jon RN Position: [facility] RN Member Role: Primary Care Nurse Name: Elva Matos RN Position: [facility] RN Member Role: Primary Care Nurse Name: Christine Quinones RN Position: [facility] AMB Nurse Member Role: Primary Care Nurse Name: Selena Newberry RN Position: [facility] RN Member Role: Primary Care Nurse Name: Yu Wynn RN Position: [facility] RN Member Role: Primary Care Nurse Name: Rachel Person RN Position: [facility] RN Member Role: Primary Care Nurse Name: Everardo Merrill MD Position: [facility] Outreach Member Role: Lifetime Consulting Physician Address: [address] [facility] [address] [facility] [place] [address]- Telecom: Name: Jesus Guaman MD Position: [facility] Renal MD Member Role: Lifetime Consulting Physician Address: [address] [place] [address] [address] [facility] [place] [address]- Telecom: Name: Radha Verdugo RN Position: [facility] RN Member Role: Primary Care Nurse Name: Yris Jacobs RN Position: [facility] RN Member Role: Primary Care Nurse Name: Lisa Aquino RN Position: [facility] RN Member Role: Primary Care Nurse Name: Ally Ferreira MD Position: [facility] Outreach Member Role: PCP Address: [address] [place] [address]- [place] Telecom: Name: Rubia Gonzalez RN Position: [facility] Onco RN Member Role: Primary Care Nurse Name: Milagros Asencio NP Position: [facility] Associate Professional Member Role: Primary Care Nurse Telecom: Name: Chantelle Wells RN Position: [facility] RN Member Role: Primary Care Nurse Name: Li Barth RN Position: [facility] RN Member Role: Primary Care Nurse Name: Bonnie Avendano CNM Position: [facility] Service Electrician Member Role: Primary Care Nurse Address: [address] [facility] [place] [facility] [place] [address]- [place] Telecom: Name: Atul Burton MD Position: [facility] Renal MD Member Role: Lifetime Consulting Physician Address: [address] [facility] [address] [facility] [place] [address]- Telecom: Name: Chantelle Pate RN Position: [facility] OB RN Member Role: Primary Care Nurse Name: Elizabeth Almeida RN Position: [facility] RN Member Role: Primary Care Nurse Name: Ivon Knapp RN Position: [facility] RN Member Role: Primary Care Nurse Name: Amarilis Mark RN Position: [facility] RN Member Role: Primary Care Nurse Name: Nessa Hodges RN Position: [facility] RN Member Role: Primary Care Nurse Name: Cadny Foreman RN Position: [facility] RN Member Role: Primary Care Nurse Name: Gwendolyn Raphael LPN Position: [facility] RN Member Role: Primary Care Nurse Name: Cristine Chavez RN Position: [facility] RN Member Role: Primary Care Nurse Name: Adelaide Su LPN Position: [facility] RN Member Role: Primary Care Nurse Name: Viry Blue RN Position: [facility] RN Member Role: Primary Care Nurse Name: Ney Mac RN Position: [facility] RN Member Role: Primary Care Nurse Name: Jaki Grey RN Position: [facility] SN RN Member Role: Primary Care Nurse Name: Josh Haro Position: [facility] RN Member Role: Primary Care Nurse Care Team Related Persons Name: NINA NATH Name: ASTRID ARAYA Name: ALLY ARAYA Insurance Providers Guarantor name: DAISY SUSAN [facility] Plan Information #: 1 Payer: MEDICARE B Payer Identifier: Member Number: [id number] Group Number: Subscriber Identifier: [id number] Relationship to Subscriber: self Coverage Type: NA Coverage Verification Date: NA Telecom: NA Address: Health Plan Information #: 2 Payer: [email or web address] [employer] Payer Identifier: Member Number: [id number] Group Number: Subscriber Identifier: [id number] Relationship to Subscriber: self Coverage Type: MEDICAID Coverage Verification Date: NA Telecom: NA Address:
--- OUTSIDE RECORDS SUMMARY | 2025-02-19 23:59 | XMS_ITS | Continuity of Care Document ---
Author Organization [facility] Infectious Disease Address [address] [place] [address]- Care Team Providers Care Environmental Services Assistant Name Role Phone Orlando Ferguson MD, Ally Phillips Primary Care Alexandrea cierra En[place] [facility] Date(s): 01/20/25 - 02/19/[address] [facility] Infectious Disease [address] [place] [id number] Attending Physician: Manny Grace Admitting Physician: AdmManny powell Referring Physician: Admtr, Ar8 Encounter Type: Triage Allergies, Adverse Reactions, Alerts Substance Criticality Severity Reaction Reaction Severity Status chlorhexidine topical skin sensitivity Active iodinated radiocontrast dyes Itching Active Adhesive Bandage Act dori traMADol seizures Active oxyCODONE Low criticality Mild Itching Acti ve Immunizations Given and Recorded Vaccine Date Status Refusal Reason SARS-CoV-2(COVID-19)mRNA-LNP vac([id number]) 05/13/24 Recorded SARS-CoV-2(COVID-19)mRNA-LNP vac([id number]) 06/12/23 Recorded influenza virus vaccine, inactivated 02/08/24 Pedro rded influenza virus vaccine, inactivated 01/11/23 Pedro rded influenza virus vaccine, inactivated 05/27/19 Give n influenza virus vaccine, inactivated 04/02/14 Pedro rded pneumococcal 20-valent conjugate vaccine 04/26/23 Recorded [id number] 12y+ bivalent booster vax 01/26/22 Recorded SARS-CoV-2 [...] 12:42:00 PM EDT, Route to Pharmacy Electronically, [facility] 3, Partial fill upon patient request [...] Maintenance, 12/24/24 12:43:00 PM EDT, CR Tablet, [facility] 3, Partial fill upon patient request [...] Refills, Maintenance, 12/04/21 12:52:00 PM EDT, Capsule, [facility]/pharmacy #[id number], Partial fill upon patient request if [...] 0 Refills, Maintenance, 12/05/24 11:53:00 AM EDT, [facility]/pharmacy #[id number], Partial fill upon patient request if [...] Refills, Maintenance, 02/19/25 7:29:00 PM EST, Tablet, [facility]/pharmacy #[id number], Partial fill upon patient request if [...] 2:38:00 PM EDT, Route to Pharmacy Electronically, [facility] 3, Partial fill upon patient request [...] 12:43:00 PM EDT, Route to Pharmacy Electronically, [facility] 3, Partial fill upon patient request [...] Refills, Maintenance, 12/04/21 12:52:00 PM EDT, Tablet, [facility]/pharmacy #[id number], Partial fill upon patient request if [...] 0 Refills, Maintenance, 04/05/24 1:02:00 PM EST, [facility], Partial fill upon patient request [...] Type I diabetes mellitus uncontrolled Confirmed Active Social History Social History Type Response Smoking Status Never smoker entered on: 09/05/14 Sexual Orientation Self described orien tation: ; Straight or heterosexual Sex Sex Representation Female (finding) Implantable Device List Procedure Provider Procedure Date Device Type Site Cutdown and Repair Brachial Artery Carlos Arevalo MD 12/09/24 Unknown Arm Upper Device Identifier Serial Number Lot or Batch Number Manufacturing Date Expiration Date Distinct Identification Code MRI Safety Implantable Status Assigning Authority Unknown Unknown Unknown Unknown 01/11/30 Unknown Unknown Active Unk harrietn Patient Care team information Care Team Personnel Name: Aquiles Rodriguez Position: [facility] Associate Professional Member Role: Lifetime Consulting Provider Address: [address] [place] [address] [facility] [address] Telecom: Name: Tressa Ponce RN Position: [facility] RN Member Role: Primary Care Nurse Name: Tyson Mack RN Position: [facility] RN Member Role: Primary Care Nurse Name: Danisha Medina CNM Position: Reference Physician Member Role: Primary Care Nurse Address: [address] [place] [address] Telecom: Name: Emilia Castaneda RN Position: [facility] RN Member Role: Primary Care Nurse Name: Ananda Chapman RN Position: [facility] RN Member Role: Primary Care Nurse Name: Rubia Wyatt RN Position: [facility] RN Supv Member Role: Primary Care Nurse Name: Adelaide Kaufman RN Position: [facility] RN Member Role: Primary Care Nurse Name: Alana Murillo RN Position: [facility] RN Member Role: Primary Care Nurse Name: Adelaide Zavaleta RN Position: [facility] RN Member Role: Primary Care Nurse Name: Christel Preciado LPN Position: [facility] RN Member Role: Primary Care Nurse Name: Angella Ahmadi RN Position: [facility] RN Member Role: Primary Care Nurse Name: Caterina Hollingsworth RN Position: [facility] SN RN Member Role: Primary Care Nurse Name: Antoinette Nash Position: [facility] RN Member Role: Primary Care Nurse Name: Renee Johnson Position: [facility] Outreach Member Role: Lifetime Consulting Physician Name: Ally Bellamy RN Position: [facility] RN Member Role: Primary Care Nurse Name: Poornima Potts RN Position: [facility] Rad RN Member Role: Primary Care Nurse Name: Forrest Adamson MD Position: [facility] Renal MD Member Role: Lifetime Consulting Physician Address: [address] [place] [address] [address] [place] [address]- Telecom: Name: Erin Mendoza RN Position: [facility] RN Member Role: Primary Care Nurse Name: Becca Edwards RN Position: [facility] RN Member Role: Primary Care Nurse Name: Caron Foster RN Position: [facility] RN Member Role: Primary Care Nurse Name: Juliane Evangelista RN Position: [facility] OB RN Member Role: Primary Care Nurse Name: Herbie Ibrahim RN Position: [facility] RN Supv Member Role: Primary Care Nurse Name: Mimi Beckham RN Position: [facility] RN Member Role: Primary Care Nurse Name: Dwight Harry RN Position: [facility] RN Member Role: Primary Care Nurse Name: Vania Arias RN Position: [facility] RN Member Role: Primary Care Nurse Name: Erika Juarez Position: [facility] RN Member Role: Primary Care Nurse Name: Noble Ricardo RN Position: [facility] RN Member Role: Primary Care Nurse Name: Annie Fernandez RN Position: [facility] RN Member Role: Primary Care Nurse Name: Deloris Weiss RN Position: [facility] RN Member Role: Primary Care Nurse Name: Tricia Feliz RN Position: [facility] RN Member Role: Primary Care Nurse Name: Daysi Cary RN Position: [facility] RN Member Role: Primary Care Nurse Name: Tricia Christopher LPN Position: [facility] RN Member Role: Primary Care Nurse Name: Soila Burch RN Position: [facility] RN Member Role: Primary Care Nurse Name: Katie Soriano RN Position: [facility] RN Member Role: Primary Care Nurse Name: Emily Jon RN Position: [facility] RN Member Role: Primary Care Nurse Name: Elva Matos RN Position: [facility] RN Member Role: Primary Care Nurse Name: Christine Quinones RN Position: [facility] AMB Nurse Member Role: Primary Care Nurse Name: Selena Nebwerry RN Position: [facility] RN Member Role: Primary Care Nurse Name: Yu Wynn RN Position: [facility] RN Member Role: Primary Care Nurse Name: Rachel Person RN Position: [facility] RN Member Role: Primary Care Nurse Name: Everardo Merrill MD Position: [facility] Outreach Member Role: Lifetime Consulting Physician Address: [address] [facility] [address] [facility], [place] [address]- [place] Telecom: Name: Jesus Guaman MD Position: [facility] Renal MD Member Role: Lifetime Consulting Physician Address: [address] [facility] [address] [facility] [place] [address]- [place] Telecom: Name: Radha Verdugo RN Position: [facility] RN Member Role: Primary Care Nurse Name: Yris Jacobs RN Position: [facility] RN Member Role: Primary Care Nurse Name: Lisa Aquino RN Position: [facility] RN Member Role: Primary Care Nurse Name: Ally Ferreira MD Position: [facility] Outreach Member Role: PCP Address: [address] [place] [address]- [place] Telecom: Name: Rubia Gonzalez RN Position: [facility] Onco RN Member Role: Primary Care Nurse Name: Milagros Asencio NP Position: [facility] Associate Professional Member Role: Primary Care Nurse Telecom: Name: Chantelle Wells RN Position: [facility] RN Member Role: Primary Care Nurse Name: Li Barth RN Position: [facility] RN Member Role: Primary Care Nurse Name: Bonnie Avendano CNM Position: [facility] Boxing Machine Operator Member Role: Primary Care Nurse Address: [address] [facility] [place] [address]- [place] Telecom: Name: Atul Burton MD Position: [facility] Renal MD Member Role: Lifetime Consulting Physician Address: [address] [facility] [address] [facility] [address] Telecom: Name: Chantelle Pate RN Position: [facility] OB RN Member Role: Primary Care Nurse Name: Elizabeth Almeida RN Position: S RN Member Role: Primary Care Nurse Name: Ivon Knapp RN Position: S RN Member Role: Primary Care Nurse Name: Amarilis Mark RN Position: S RN Member Role: Primary Care Nurse Name: Nessa Hodges RN Position: S RN Member Role: Primary Care Nurse Name: Candy Foreman RN Position: [facility] RN Member Role: Primary Care Nurse Name: Gwendolyn Raphael LPN Position: [facility] RN Member Role: Primary Care Nurse Name: Cristine Chavez RN Position: [facility] RN Member Role: Primary Care Nurse Name: Adelaide Su LPN Position: S RN Member Role: Primary Care Nurse Name: Viry Blue RN Position: [facility] RN Member Role: Primary Care Nurse Name: Ney Mac RN Position: [facility] RN Member Role: Primary Care Nurse Name: Jaki Grey RN Position: [facility] SN RN Member Role: Primary Care Nurse Name: Josh Haro Position: [facility] RN Member Role: Primary Care Nurse Care Team Related Persons Name: NINA NATH Name: MARSHALASTRID Vázquez Name: ALLY ARAYA Insurance Providers Guarantor name: [facility] Plan Information #: 1 Payer: MEDICARE B Payer Identifier: NA Member Number: [id number] Group Number: Subscriber Identifier: Relationship to Subscriber: self Coverage Type: NA Coverage Verification Date: NA Telecom: NA Address: NA Health Plan Information #: 2 [facility] [employer]ER [employer] Payer Identifier: NA Member Number: [id number] Group Number: Subscriber Identifier: NA Relationship to Subscriber: self Coverage Type: MEDICAID Coverage Verification Date: NA Telecom: NA Address:
--- OUTSIDE RECORDS SUMMARY | 2025-02-19 23:59 | XMS_ITS | Continuity of Care Document ---
Author Organization [facility] Cardiology Address [address] [place] [address]- Care Team Providers Care Clothing Room Supervisor Name Role Phone Orlando Ferguson MD, Ally Phillips Primary Care Alexandrea norton Encounter [facility] Date(s): 12/25/24 - 02/19/25 [facility] [address] [place] [address]- Attending Physician: Martha Mosher DO Encounter Type: Pre Office Visit Allergies, Adverse Reactions, Alerts Substance Criticality Severity Reaction Reaction Severity Status chlorhexidine topical skin sensitivity Active iodinated radiocontrast dyes Itching Active Adhesive Bandage Act dori traMADol seizures Active oxyCODONE Low criticality Mild Itching Acti ve Immunizations Given and Recorded Vaccine Date Status Refusal Reason SARS-CoV-2(COVID-19)mRNA-LNP vac([id number]) 05/13/24 Recorded SARS-CoV-2(COVID-19)mRNA-LNP vac([id number]) 06/12/23 Recorded influenza virus vaccine, inactivated 02/08/24 Pedro rded influenza virus vaccine, inactivated 01/11/23 Pedro rded influenza virus vaccine, inactivated 05/27/19 Give n influenza virus vaccine, inactivated 04/02/14 Pedro rded pneumococcal 20-valent conjugate vaccine 04/26/23 Recorded [id number] 12y+ bivalent booster vax 01/26/22 Recorded SARS-CoV-2 [...] 12:42:00 PM EDT, Route to Pharmacy Electronically, [facility] 3, Partial fill upon patient request if [...] Maintenance, 12/24/24 12:43:00 PM EDT, CR Tablet, [facility] 3, Partial fill upon patient request if [...] Refills, Maintenance, 12/04/21 12:52:00 PM EDT, Capsule, [facility]/pharmacy #[id number], Partial fill upon patient request if [...] 0 Refills, Maintenance, 12/05/24 11:53:00 AM EDT, [facility]/pharmacy #[id number], Partial fill upon patient request if [...] Refills, Maintenance, 02/19/25 7:29:00 PM EST, Tablet, [facility]/pharmacy #[id number], Partial fill upon patient request if [...] Refills, Maintenance, 02/19/25 7:18:00 PM EST, Capsule, [facility]/pharmacy #[id number], Partial fill upon patient request if [...] 2:38:00 PM EDT, Route to Pharmacy Electronically, [facility] 3, Partial fill upon patient request [...] 12:43:00 PM EDT, Route to Pharmacy Electronically, [facility] 3, Partial fill upon patient request [...] Refills, Maintenance, 12/04/21 12:52:00 PM EDT, Tablet, [facility]/pharmacy #[id number], Partial fill upon patient request if the [...] 0 Refills, Maintenance, 04/05/24 1:02:00 PM EST, [facility], Partial fill upon patient request if [...] Unknown Unknown 01/11/30 Unknown Unknown Active Unk nown Patient Care team information Care Team Personnel Name: Aquiles Rodriguez Position: [facility] Associate Professional Member Role: Lifetime Consulting Provider Address: [address] [facility] [address] [facility] [place], [place] [address] Telecom: Name: Tressa Ponce RN Position: [facility] RN Member Role: Primary Care Nurse Name: Tyson Mack RN Position: [facility] RN Member Role: Primary Care Nurse Name: Danisha Medina CNM Position: Reference Physician Member Role: Primary Care Nurse Address: [address] [place] [id number] Telecom: Name: Emilia Castaneda RN Position: [facility] RN Member Role: Primary Care Nurse Name: Ananda Chapman RN Position: [facility] RN Member Role: Primary Care Nurse Name: Rubia Wyatt RN Position: [facility] RN Supv Member Role: Primary Care Nurse Name: Adelaide Kaufman RN Position: S RN Member Role: Primary Care Nurse Name: Alana Murillo RN Position: [facility] RN Member Role: Primary Care Nurse Name: Adelaide Zavaleta RN Position: S RN Member Role: Primary Care Nurse Name: Christel Preciado LPN Position: [facility] RN Member Role: Primary Care Nurse Name: Angella Ahmadi RN Position: [facility] RN Member Role: Primary Care Nurse Name: Caterina Hollingsworth RN Position: [facility] SN RN Member Role: Primary Care Nurse Name: Antoinette Nash Position: S RN Member Role: Primary Care Nurse Name: Renee Johnson Position: [facility] Outreach Member Role: Lifetime Consulting Physician Name: Ally Bellamy RN Position: [facility] RN Member Role: Primary Care Nurse Name: Poornima Potts RN Position: [facility] Rad RN Member Role: Primary Care Nurse Name: Forrest Adamson MD Position: [facility] Renal MD Member Role: Lifetime Consulting Physician Address: [address] [place] [address] [address] [facility] [place] [address]- Telecom: Name: Erin Mendoza RN Position: [facility] RN Member Role: Primary Care Nurse Name: Becca Edwards RN Position: [facility] RN Member Role: Primary Care Nurse Name: Caron Foster RN Position: [facility] RN Member Role: Primary Care Nurse Name: Juliane Evangelista RN Position: [facility] OB RN Member Role: Primary Care Nurse Name: Herbie Ibrahim RN Position: [facility] RN Supv Member Role: Primary Care Nurse Name: Mimi Beckham RN Position: [facility] RN Member Role: Primary Care Nurse Name: Dwight Harry RN Position: [facility] RN Member Role: Primary Care Nurse Name: Vania Arias RN Position: [facility] RN Member Role: Primary Care Nurse Name: Erika Juarez Position: [facility] RN Member Role: Primary Care Nurse Name: Noble Ricardo RN Position: [facility] RN Member Role: Primary Care Nurse Name: Annie Fernandez RN Position: [facility] RN Member Role: Primary Care Nurse Name: Deloris Weiss RN Position: [facility] RN Member Role: Primary Care Nurse Name: Tricia Feliz RN Position: [facility] RN Member Role: Primary Care Nurse Name: Daysi Cary RN Position: [facility] RN Member Role: Primary Care Nurse Name: Tricia Christopher LPN Position: [facility] RN Member Role: Primary Care Nurse Name: Soila Burch RN Position: [facility] RN Member Role: Primary Care Nurse Name: Katie Soriano RN Position: [facility] RN Member Role: Primary Care Nurse Name: Emily Jon RN Position: [facility] RN Member Role: Primary Care Nurse Name: Elva Matos RN Position: [facility] RN Member Role: Primary Care Nurse Name: Christine Quinones RN Position: [facility] AMB Nurse Member Role: Primary Care Nurse Name: Selena Newberry RN Position: [facility] RN Member Role: Primary Care Nurse Name: Yu Wynn RN Position: [facility] RN Member Role: Primary Care Nurse Name: Rachel Person RN Position: [facility] RN Member Role: Primary Care Nurse Name: Everardo Merrill MD Position: [facility] Outreach Member Role: Lifetime Consulting Physician Address: [address] [facility] [address] [facility] [place], [place] [address]- Telecom: Name: Jesus Guaman MD Position: [facility] Renal MD Member Role: Lifetime Consulting Physician Address: [address] [facility] [facility] [address] Telecom: Name: Radha Verdugo RN Position: [facility] RN Member Role: Primary Care Nurse Name: Yris Jacobs RN Position: [facility] RN Member Role: Primary Care Nurse Name: Lisa Aquino RN Position: [facility] RN Member Role: Primary Care Nurse Name: Ally Ferreira MD Position: [facility] Outreach Member Role: PCP Address: [address] Telecom: Name: Rubia Gonzalez RN Position: [facility] Onco RN Member Role: Primary Care Nurse Name: Milagros Asencio NP Position: [facility] Associate Professional Member Role: Primary Care Nurse Telecom: Name: Chantelle Wells RN Position: [facility] RN Member Role: Primary Care Nurse Name: Li Barth RN Position: [facility] RN Member Role: Primary Care Nurse Name: Bonnie Avendano CNM Position: [facility] Waste Examiner Member Role: Primary Care Nurse Address: [address] [facility] [place] [address]- [place] Telecom: Name: Atul Burton MD Position: [facility] Renal MD Member Role: Lifetime Consulting Physician Address: [address] [facility] [facility] [place] [address]- Telecom: Name: Chantelle Pate RN Position: [facility] OB RN Member Role: Primary Care Nurse Name: Elizabeth Almeida RN Position: [facility] RN Member Role: Primary Care Nurse Name: Ivon Knapp RN Position: [facility] RN Member Role: Primary Care Nurse Name: Amarilis Mark RN Position: [facility] RN Member Role: Primary Care Nurse Name: Nessa Hodges RN Position: [facility] RN Member Role: Primary Care Nurse Name: Candy Foreman RN Position: [facility] RN Member Role: Primary Care Nurse Name: Gwendolyn Raphael LPN Position: [facility] RN Member Role: Primary Care Nurse Name: Cristine Chavez RN Position: [facility] RN Member Role: Primary Care Nurse Name: Adelaide Su LPN Position: [facility] RN Member Role: Primary Care Nurse Name: Viry Blue RN Position: [facility] RN Member Role: Primary Care Nurse Name: Ney Mac RN Position: [facility] RN Member Role: Primary Care Nurse Name: Jaki Grey RN Position: [facility] SN RN Member Role: Primary Care Nurse Name: Josh Haro Position: [facility] RN Member Role: Primary Care Nurse Care Team Related Persons Name: NINA NATH Name: ASTRID ARAYA Name: ALLY ARAYA Insurance Providers Guarantor name: [facility] Information #: 1 Payer: MEDICARE B Payer Identifier: Member Number: [id number] Group Number: Subscriber Identifier: [id number] Relationship to Subscriber: self Coverage Type: NA Coverage Verification Date: Telecom: NA Address: [facility] Information #: 2 Payer: [employer] Payer Identifier: Member Number: [id number] Group Number: Subscriber Identifier: [id number] Relationship to Subscriber: self Coverage Type: MEDICAID Coverage Verification Date: Telecom: Address:
--- OUTSIDE RECORDS SUMMARY | 2025-02-19 23:59 | XMS_ITS | Continuity of Care Document ---
Author Organization [facility] Address [address] [place] [address]- Care Team Providers Care Baseball Scout Name Role Phone Orlando Ferguson MD, Ally Phillips Primary Care Alexandrea norton Encounter [facility] [id number] Date(s): 02/12/25 - 02/19/25 [facility] [address] [place], [place] [address] Attending Physician: Tricia Dumont NP Admitting Physician: Julia SOTO, Tricia Felix Referring Physician: Kurt Jarvis MD Encounter Type: Office Visit Allergies, Adverse Reactions, Alerts Substance Criticality Severity Reaction Reaction Severity Status chlorhexidine topical skin sensitivity Active iodinated radiocontrast dyes Itching Active Adhesive Bandage Act dori traMADol seizures Active oxyCODONE Low criticality Mild Itching Acti ve Immunizations Given and Recorded Vaccine Date Status Refusal Reason SARS-CoV-2(COVID-19)mRNA-LNP vac([id number]) 05/13/24 Recorded SARS-CoV-2(COVID-19)mRNA-LNP vac(pes321) 06/12/23 Recorded influenza virus vaccine, inactivated 02/08/24 Pedro rded influenza virus vaccine, inactivated 01/11/23 Pedro rded influenza virus vaccine, inactivated 05/27/19 Give n influenza virus vaccine, inactivated 04/02/14 Pedro rded pneumococcal 20-valent conjugate vaccine 04/26/23 Recorded [id number] 12y+ bivalent booster vax 01/26/22 Recorded SARS-CoV-2 [...] 12:42:00 PM EDT, Route to Pharmacy Electronically, [facility], Partial fill upon patient [...] Maintenance, 12/24/24 12:43:00 PM EDT, CR Tablet, [facility] 3, Partial fill upon patient [...] Refills, Maintenance, 12/04/21 12:52:00 PM EDT, Capsule, [facility]/pharmacy #[id number], Partial fill upon patient request if [...] 0 Refills, Maintenance, 12/05/24 11:53:00 AM EDT, [facility]/pharmacy #[id number], Partial fill upon patient request if [...] Refills, Maintenance, 02/19/25 7:29:00 PM EST, Tablet, [facility]/pharmacy #[id number], Partial fill upon patient request if [...] 2:38:00 PM EDT, Route to Pharmacy Electronically, [facility] 3, Partial fill upon patient [...] 12:43:00 PM EDT, Route to Pharmacy Electronically, [facility] 3, Partial fill upon patient [...] Refills, Maintenance, 12/04/21 12:52:00 PM EDT, Tablet, [facility]/pharmacy #[id number], Partial fill upon patient request if [...] 0 Refills, Maintenance, 04/05/24 1:02:00 PM EST, [facility] 3, Partial fill upon patient [...] Type I diabetes mellitus uncontrolled Confirmed Active Vital Signs Most recent to oldest [Reference Range]: 1 Height 155 cm (02/12/25 11:38 AM) Weight 71 kg (02/12/25 11:38 AM) Oxygen Saturation [94-100 %] 99 % (02/12/25 11:38 AM) Pulse Rate [55-90 bpm] 85 bpm (02/12/25 11:38 AM) Body Mass Index [18.5-24.99 kg/m2] 29.55 kg/m2 *H* (02/12/25 11:38 AM) Blood Pressure [90-138/55-84 mm Hg] 126/ 70mm Hg (02/12/25 11:38 AM) Mode of Delivery (Oxygen) Room air (02/12/25 11:38 AM) Blood pressure sites Arm, left (02/12/25 11:38 AM) Weight Obtained Via Patient/family state d (02/12/25 11:38 AM) Social History Social History Type Response Smoking [...] Unknown 01/11/30 Unknown Unknown Active Unk nown Note * Keke Aggarwal: PERFORM Event Display: Patient Education/Instruction Authored Date: [id number] Ambulatory Adult Visit Summary [facility] [address] [facility] [address] [address] Name: DAISY DAVIS : 1990?? Visit: 02/12/2025 09:30?? Ambulatory Visit Instructions ?? Your Care Team Primary Care Provider Orlando Ferguson MD, Ally Phillips? This Visit Provider Julia SOTO , Tricia Elvira Vitals Signs Pulse Rate: 85 bpm Height: 155 cm Systolic Blood Pressure: 126 mm Hg Weight: 71 kg Diastolic Blood Pressure: 70 mm Hg Body Mass Index:??29.55 kg/m2??High Oxygen Saturation: 99 % Body surface area: 1.75 What to do next Scheduled Follow-Up Appointments 2024 10:30 AM EST ?? Type: CT Abdomen and Pelvis w/o Contrast Where: [facility] [address] [place] [address]- Status: Pending Sunday 9:15 AM EST ?? Type: Return With: Nuno SOTO, Althea De La Paz Where: [facility] [address] [address]- Status: Pending Sunday 10:40 AM EST ?? Type: Return With: Martha Mosher DO Where: [facility] [address] [place] [address] [address] [place] [address]- Status: Pending Sunday2025 2:00 PM EST ?? Type: Duplex Map UE Bilat Where: [facility] [address] [address]- Status: Pending Sunday2025 8:40 AM EST ?? Type: Return With: Kurt Jarvis MD Where: [facility] [address] [place] [address]- Status: Pending Future Orders CT Abd/Pelvis W/O Contrast, Routine, Reason for Exam: Other:, Transplant eval - calcified iliacs, C/Q: Other:, No Contrast, Due 12/2024, Once, *Est. 02/26/25 due within 6 months, Within 3 Days Transplant PRA PRE - Once, [id number], *Est. 09/01/24 due within 2 week(s), Within 3 Days?? Medications The list below reflects the information in our records and provided by you today along with any changes made during this visit. Please continue your medications until treatment is completed or stopped by your provider. If this is different from the information you have or there are other questions,please contact the prescribing provider. What How Much When Instructions Unchanged Acetaminophen (acetaminophen 325 mg oral tablet) 650 Milligram Oral 4 times a day as needed for Pain , Mild Ordering Physician: Julio Dickson MD Unchanged Aspirin (aspirin 81 mg oral delayed release tablet) 1 tab(s) Oral Daily Duration: 90 Days Special Instructions: Stop . Ordering Physician: Julio Dickson MD ?? Unchanged Calcitriol (calcitriol 0.25 mcg oral capsule) 1 capsule Oral Sunday, Sunday and Sunday Ordering Physician: Gillian Hawthorne MD Unchanged Carvedilol (carvedilol 25 mg oral tablet) 1.5 tablets Oral Twice a day Unchanged Cetirizine (cetirizine 10 mg oral tablet) See instructions Special Instructions: Take 1 tablet (10mg) 12 hours prior to procedure. Take 1 tablet (10mg) 2 hours prior to procedure Ordering Physician: Carlos Arevalo MD ?? Unchanged Cinacalcet (Sensipar 30 mg oral tablet) 1 tab(s) Oral Sunday, Sunday and Sunday Ordering Physician: Gillian Hawthorne MD Unchanged Clopidogrel (Plavix 75 mg oral tablet) 75 Milligram Oral Daily Duration: 90 Days Special Instructions: Stop . Ordering Physician: Julio Dickson MD ?? Unchanged Durable Medical Equipment (Glucagon Emergency Kit) See instructions Duration: 30 Days Special Instructions: use as directed for Type 1 Diabetes Mellitus If you develop low blood sugars, please use this glucagon emergency kit., As needed for Blood Glucose Ordering Physician: Filemon Villafuerte MD ?? Unchanged Folic Acid (folic acid 1 mg oral tablet) 1 tab(s) Oral Daily Unchanged Glucose (Trueplus Glucose 15 g/ 32 mL oral gel) See instructions Special Instructions: Take if Blood sugar <40 or signs of confusion Ordering Physician: Marta Holloway MD ?? Unchanged hydrALAZINE (hydrALAZINE 25 mg oral tablet) 50 Milligram Oral Twice a day Ordering Physician: Nikolai Lopes DO Unchanged Insulin Aspart (Fiasp 100 units/ mL injectable solution) Special Instructions: INJECT UP TO 50 UNITS PER DAY VIA INSULIN PUMP SUBCUTANEOUSLY 2 TIMES A DAY ?? Unchanged Montelukast (montelukast 10 mg oral tablet) 1 tab(s) Oral Daily Unchanged Multivitamin (Daily Alyx) 1 tab(s) Oral Unchanged NIFEdipine (NIFEdipine 90 mg oral tablet, extended release) 1 tab(s) Oral Daily Ordering Physician: Bertha Umanzor MD Unchanged Pregabalin (Lyrica 25 mg oral capsule) 1 capsule Oral Twice a day Ordering Physician: Young RIVERA, Maryan Unchanged Pyridoxine (Vitamin B6 50 mg oral tablet) 1 tab(s) Oral Daily Duration: 7 Days Unchanged Senna (senna 187 mg oral tablet) 2 tab(s) Oral Twice a day Ordering Physician: Nikolai Lopes DO S Unchanged Sevelamer (sevelamer carbonate 800 mg oral tablet) 4 tab(s) Oral 3 times a day Unchanged ValACYclovir (Valtrex 500 mg oral tablet) 1 tab(s) Oral Daily in the morning Medications and Immunizations Administered Medications Given During Visit No medications given during this visit.?? Allergies (NKA means No Known Allergies) oxyCODONE (Mild)??Itching Adhesive Bandage chlorhexidine topical??skin sensitivity iodinated radiocontrast dyes??Itching traMADol??seizures Common Emergency Awareness Tips IS IT A STROKE? Act FAST and Check for these signs: FACE Does the face look uneven? ARM Does one arm drift down? SPEECH Does their speech sound strange? TIME Call at any sign of stroke ?? Heart Attack Signs Chest discomfort: Most heart attacks involve discomfort in the center of the chest and lasts more than a few minutes, or goes away and comes back. It can feel like uncomfortable pressure, squeezing, fullness or pain. Discomfort in upper body: Symptoms can include pain or discomfort in one or both arms, back, neck, jaw or stomach. Shortness of breath: With or without discomfort. Other signs: Breaking out in a cold sweat, nausea, or lightheaded. Remember, MINUTES DO MATTER. If you experience any of these heart attack warning signs, call to get immediate medical attention! ?? Smoking can increase your chances of developing chronic health problems and can cause harmful effects to other family members in your house. If you smoke, you are strongly encouraged to quit. Please call [facility] at [phone] or [phone]-[employer] (1989) or log in to [email or web address] for referrals to smoking cessation programs. ?? The National Suicide Prevention Hotline is available 06/11 if you or someone you know needs to find a reason to keep living. By calling 3-890-359-bsmj (3177) you'll be connected to a skilled, trained counselor at a crisis center in your area. [facility] Portal You can view and manage your care through the patient portal or by using a health care nicole of your choosing. [email or web address] is a website that allows you to securely view your medical information including your hospital discharge summary, office visit summaries, medications and follow-up visits. You can also request appointments, renew medications, and request access to your medical information using a health care nicole of your choosing, or just ask a question. You can enroll at [email or web address] or register during your next office visit. [facility], in keeping with [facility] guidance, no longer requires face masks for staff, patientsor visitors in most situations. Similiar to time spent indoors at other locations, there is the chance that you were exposed to repiratory viruses during your time with us (such as flu or COVID-19). If you develop symptoms concerning for a viral respiratory infection, please seek testing (and treatment if indicated) from your medical provider or home test kit. ?? Disclaimer: The information provided is of a general nature and is intended to be used in conjunction with the recommendations and advice of your health care practitioner. Every effort has been made to ensure that the information provided is accurate and complete at the time it is provided to you however, as your needs change, or, as new information becomes available, different or additional instructions may be required. ?? If you have questions, please consult with your primary care provider or pharmacist, as appropriate. This information is not intended to serve as substitution for assessment and evaluation by a qualified health care provider. If you do not have a primary care provider, you may find a [facility] provider by calling [facility] at [phone]. Patient Care team information Care Team Personnel Name: Aquiles Rodriguez Position: [facility] Associate Professional Member Role: Lifetime Consulting Provider Address: [address] [place] [address] [address] [facility] [address] Telecom: Name: Tressa Ponce RN Position: [facility] RN Member Role: Primary Care Nurse Name: Tyson Mack RN Position: [facility] RN Member Role: Primary Care Nurse Name: Danisha Medina CNM Position: Reference Physician Member Role: Primary Care Nurse Address: [address] [place] [address]- Telecom: Name: Emilia Castaneda RN Position: [facility] RN Member Role: Primary Care Nurse Name: Ananda Chapman RN Position: [facility] RN Member Role: Primary Care Nurse Name: Rubia Wyatt RN Position: [facility] RN Supv Member Role: Primary Care Nurse Name: Adelaide Kaufman RN Position: [facility] RN Member Role: Primary Care Nurse Name: Alana Murillo RN Position: [facility] RN Member Role: Primary Care Nurse Name: Adleaide Zavaleta RN Position: [facility] RN Member Role: Primary Care Nurse Name: Christel Preciado LPN Position: [facility] RN Member Role: Primary Care Nurse Name: Angella Ahmadi RN Position: [facility] RN Member Role: Primary Care Nurse Name: Caterina Hollingsworth RN Position: [facility] SN RN Member Role: Primary Care Nurse Name: Antoinette Nash Position: [facility] RN Member Role: Primary Care Nurse Name: Renee Johnson Position: [facility] Outreach Member Role: Lifetime Consulting Physician Name: Ally Bellamy RN Position: [facility] RN Member Role: Primary Care Nurse Name: Poornima Potts RN Position: [facility] Rad RN Member Role: Primary Care Nurse Name: Forrest Adamson MD Position: [facility] Renal MD Member Role: Lifetime Consulting Physician Address: [address] [place] [address] [address] [facility] [address]- Telecom: Name: Erin Mendoza RN Position: [facility] RN Member Role: Primary Care Nurse Name: Becca Edwards RN Position: [facility] RN Member Role: Primary Care Nurse Name: Caron Foster RN Position: [facility] RN Member Role: Primary Care Nurse Name: Juliane Evangelista RN Position: [facility] OB RN Member Role: Primary Care Nurse Name: Herbie Ibrahim RN Position: [facility] RN Supv Member Role: Primary Care Nurse Name: Mimi Beckham RN Position: [facility] RN Member Role: Primary Care Nurse Name: Dwight Harry RN Position: [facility] RN Member Role: Primary Care Nurse Name: Vania Arias RN Position: [facility] RN Member Role: Primary Care Nurse Name: Erika Juarez Position: [facility] RN Member Role: Primary Care Nurse Name: Noble Ricardo RN Position: [facility] RN Member Role: Primary Care Nurse Name: Annie Fernandez RN Position: [facility] RN Member Role: Primary Care Nurse Name: Deloris Weiss RN Position: [facility] RN Member Role: Primary Care Nurse Name: Tricia Feliz RN Position: [facility] RN Member Role: Primary Care Nurse Name: Daysi Cary RN Position: [facility] RN Member Role: Primary Care Nurse Name: Tricia Christopher LPN Position: [facility] RN Member Role: Primary Care Nurse Name: Soila Burch RN Position: [facility] RN Member Role: Primary Care Nurse Name: Katie Soriano RN Position: [facility] RN Member Role: Primary Care Nurse Name: Emily Jon RN Position: [facility] RN Member Role: Primary Care Nurse Name: Elva Matos RN Position: [facility] RN Member Role: Primary Care Nurse Name: Christine Quinones RN Position: [facility] AMB Nurse Member Role: Primary Care Nurse Name: Selena Newberry RN Position: [facility] RN Member Role: Primary Care Nurse Name: Yu Wynn RN Position: [facility] RN Member Role: Primary Care Nurse Name: Rachel Person RN Position: [facility] RN Member Role: Primary Care Nurse Name: Everardo Merrill MD Position: [facility] Outreach Member Role: Lifetime Consulting Physician Address: [address] [facility] [place], [place] [address] Telecom: Name: Jesus Guaman MD Position: [facility] Renal MD Member Role: Lifetime Consulting Physician Address: [address] [facility] [place], [place] [address] Telecom: Name: Radha Verdugo RN Position: [facility] RN Member Role: Primary Care Nurse Name: Yris Jacobs RN Position: [facility] RN Member Role: Primary Care Nurse Name: Lisa Aquino RN Position: S RN Member Role: Primary Care Nurse Name: Ally Ferreira MD Position: [facility] Outreach Member Role: PCP Address: [address] [place] [address]- [place] Telecom: Name: Rubia Gonzalez RN Position: [facility] Onco RN Member Role: Primary Care Nurse Name: Milagros Asencio NP Position: [facility] Associate Professional Member Role: Primary Care Nurse Telecom: Name: Chantelle Wells RN Position: [facility] RN Member Role: Primary Care Nurse Name: Li Barth RN Position: [facility] RN Member Role: Primary Care Nurse Name: Bonnie Avendano CNM Position: [facility] All Around Patternmaker Member Role: Primary Care Nurse Address: [address] [place] [address] of [facility] [place] [address]- [place] Telecom: Name: Atul Burton MD Position: [facility] Renal MD Member Role: Lifetime Consulting Physician Address: [address] [place] [address] [address] [facility] [place] [address]- [place] Telecom: Name: Chantelle Pate RN Position: [facility] OB RN Member Role: Primary Care Nurse Name: Elizabeth Almeida RN Position: [facility] RN Member Role: Primary Care Nurse Name: Ivon Knapp RN Position: [facility] RN Member Role: Primary Care Nurse Name: Amarilis Mark RN Position: [facility] RN Member Role: Primary Care Nurse Name: Nessa Hodges RN Position: [facility] RN Member Role: Primary Care Nurse Name: Candy Foreman RN Position: [facility] RN Member Role: Primary Care Nurse Name: Gwendolyn Raphael LPN Position: [facility] RN Member Role: Primary Care Nurse Name: Cristine Chavez RN Position: [facility] RN Member Role: Primary Care Nurse Name: Adelaide Su LPN Position: [facility] RN Member Role: Primary Care Nurse Name: Viry Blue RN Position: [facility] RN Member Role: Primary Care Nurse Name: Ney Mac RN Position: [facility] RN Member Role: Primary Care Nurse Name: Jaki Grey RN Position: [facility] RN Member Role: Primary Care Nurse Name: Josh Haro Position: S RN Member Role: Primary Care Nurse Care Team Related Persons Name: NINA NATH Name: ASTRID ARAYA Name: ALLY ARAYA Insurance Providers Guarantor name: [facility] Information #: 1 Payer: MEDICARE B Payer Identifier: Member Number: [id number] Group Number: NA Subscriber Identifier: [id number] Relationship to Subscriber: self Coverage Type: NA Coverage Verification Date: NA Telecom: NA Address: [facility] Plan Information #: 2 Payer: [facility] Payer Identifier: NA Member Number: [id number] Group Number: NA Subscriber Identifier: [id number] Relationship to Subscriber: self Coverage Type: MEDICAID Coverage Verification Date: NA Telecom: NA Address:
--- NOTE | 2025-02-24 11:13 | A.OFFVIS_ITS ---
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 Required: No Accompanied by: Daughter Allergies icodextrin Allergy (Mild, Verified 02/03/25 12:13) Rash oxycodone Adverse Reaction (Severe, Verified 02/03/25 12:13) rash tramadol Adverse Reaction (Severe, Verified 02/03/25 12:13) rash CLOROXINE Allergy (Unknown, Uncoded 02/03/25 12:13) RASH HPI Comprehensive Diabetes Asmnt Most Recent Diabetes Results: 2 Hemoglobin A1c 9.3 % 08/12/19 Cholesterol, (<200) 203 mg/dL H 09/06/23 HDL Cholesterol, (>40) 29 mg/dL L 09/06/23 Triglycerides, (<150) 256 mg/dL H 09/06/23 Creatinine, (0.5-1.4) 6.66 mg/dL H* 09/06/23 BUN, (9-16) 22 mg/dL H 09/06/23 Sodium, (135-145) 141 mmol/L 09/06/23 Potassium, (3.3-5.1) 4.4 mmol/L 09/06/23 Chloride, (96-108) 90 mmol/L L 09/06/23 Carbon Dioxide, (22-29) 36 mmol/L H 09/06/23 Calcium, (8.4-10.2) 9.5 mg/dL 09/06/23 AST, (5-31) 26 U/L 09/06/23 ALT, (0-31) 31 U/L 09/06/23 Total Protein, (6.5-8.0) 8.4 g/dL H 09/06/23 Albumin, (3.5-5.0) 4.0 g/dL 09/06/23 [facility] Medical History (Updated 02/03/25 @ 13:24 by Moshe Avila MD) Foot ulcer Asthma Dyspnea Pulmonary nodules Chronic allergic rhinitis Allergies Kidney failure ESRD (end stage renal disease) on dialysis Anemia HTN (hypertension) ESRD (end stage renal disease) 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 Hypoglycemia due to type 1 diabetes mellitus Hypertension Dyslipidemia Diabetic polyneuropathy associated with type 1 diabetes mellitus Diabetes type 1, uncontrolled ESRD (end stage renal disease) on dialysis ESRD (end stage renal disease) Surgical History (Updated 02/03/25 @ 12:13 by BUNNY Aragon) History of below-knee amputation of right lower extremity History of hemodialysis Hx of amputation Hx of eye surgery Hx of section Family History Father Diabetes mellitus Mother Thyroid disease Pre-diabetes HTN (hypertension) Acute depression Arthritis Social History Household Members: Significant Other Household Members Other:: / - 6 y/o daughter Housing: Apartment Do you presently have visiting nurse or other home services: No Alcohol intake: never Patient Tobacco Use Status: Never used Tobacco service: No Current occupational status: disabled Assessment & Plan Assessment & Plan (1) Diabetes type 1, uncontrolled: Code(s): E10.65 - Type 1 diabetes mellitus with hyperglycemia Qualifiers: Glycemic state: with hyperglycemia Qualified Code(s): E10.65 - Type 1 diabetes mellitus with hyperglycemia Plan: Patient presents for pump training for Omni pod 5 pump and Dexcom G7 CGM training today. The following topics were reviewed today: -Pump therapy basic concepts: Basal/bolus, insulin to carb ratio, correction factor, insulin on board Patient's pre bolus before meals has improved. At the beginning of January patient had amputation of right leg [id number], due to foot ulcer that had not healed and became infected Patient's glucose average has improved but still running above target, see adjustment below Patient agreed to continue entering carbs at meals, and correcting high glucose levels Reinforced with patient the importance of bolusing for meals 15 minutes before eating Patient has not picked up new Dexcom G7 sensors, prescription sent by provider on 01/27/2025 Patient given 1 sample Dexcom G7 sensor in instructed to contact pharmacy to make sure she can pickling solution maker Dexcom G7 sensor Troubleshooting after starting new pod or inserting new insulin set: Occlusion, adhesive tape sensitivity, redness Check BG 2 hours after site change Patient understands the basic concepts of pump therapy, how to give insulin for meals and snacks, how to troubleshoot for hyper and hypoglycemia. Setting verified by [facility]ES, no changes made to patient's pump settings at today's visit Basal rate(s) (units/hour) : 12 AM? to 12 AM 1.25 units / hr Bolus setting Insulin Carbohydrate Ratio (s) Patient continues to struggle bolusing prior to meals. when she does bolus for meals she generally boluses after her glucose is already increasing. Explained to patient that in order to get better control of glucose she needs to consistently enter carbs before meals and when glucose levels are high to correct hyperglycemia. Explained to patient that pump keeps track of the amount of insulin that it is given her, so she does not need to reduce recommended boluses in order to avoid hypoglycemia. If patient is concerned about hypoglycemia we can adjust pump settings. We can not adjust pump settings until we have a better idea about how current ratios are working. Patient agreed to work towards entering carbs at meals, and correcting high glucose levels Reinforced with patient the importance of bolusing for meals 15 minutes before eating Showed patient on Omnipod 5 family engagement specialist how to switch from Dexcom G 6 sensor to Dexcom G7 sensor Troubleshooting after starting new pod or inserting new insulin set: Occlusion, adhesive tape sensitivity, redness Check BG 2 hours after site change Patient understands the basic concepts of pump therapy, how to give insulin for meals and snacks, how to troubleshoot for hyper and hypoglycemia. Setting verified by [facility]ES, see changes made to patient's pump settings at today's visit Basal rate(s) (units/hour) : 12 AM? to 12 AM 1.25 units / hr Bolus setting Insulin Carbohydrate Ratio (s) 12 AM? to 12 AM 1:4.5 New 12 AM? to 12 AM 1:4 Correction Factor / Sensitivity Factor New 12 AM? to 12 AM? 1:30 Active Insulin Time:?2 hours Target(s): 12 AM? to 12 AM 110 mg/dL Correction Threshold 12 AM? to 12 AM 110 mg/dL Patient will follow-up with conservation educator in 4 months, patient instructed to contact conservation educator with questions or concerns Coding Level of Care Code Est Pt Level 1 (36217) Diagnoses Uncontrolled type 1 diabetes mellitus with hyperglycemia E10.65 Glycemic state: with hyperglycemia
--- OUTSIDE RECORDS SUMMARY | 2025-02-24 13:03 | XMS_ITS | Clinical Summary ---
Author Organization [address] [facility] Address [address] [place] [address] Phone Care Team Providers Care [employer] Vice Principal Name Role Phone Mt Hooker MD Primary Care Provider [phone] Allergies No known active allergies Medications CALCITRIOL [...] Kidney failure DX:Kidney failur e Diabetes mellitus ([facility] V24, [facility] V28) DX:Diabetes mellitus (HCC) Diabetic neuropathy ([facility] V24, [facility] V28) DX:Diabetic neuropathy (HCC) Type 1 diabetes ([facility] V24, [facility] V28) DX:Type 1 diabetes ([facility]) Hypertension DX:Hypertension Social History Tobacco [...] Hypertension/CHF/CAD Annual BMP Blood Test 05/06/2024 04/06/2022 COVID-19 Vaccine ( season) 2024 05/13/2024, 06/12/2023, 01/26/2022, Additional history [...] 09/06/2023 , 10/13/2021, 11/30/2020, Additional history exists Meningococcal B Vaccine Aged [...] Health Maintenance Results * Hemoglobin A1c (02/27/2023) [facility] Hemoglobin A1C 0.0 % Comment:no interpretation, a bstracted Blood Venous blood specimen / Unknown [facility] Provider LAB BLOOD ORDERABLES Araceli l Result * Annual BMP Blood Test (04/06/2022) Pathologist [facility] Annual BMP Blood Test abstracted [facility] Provider HEALTH MAINTENANCE Final Result * Hepatitis C Screening (11/30/2020) Pathologist [facility] Hepatitis C Screening abstracted [facility] Provider HEALTH MAINTENANCE Final Result from Last 3 Months or Most Recently Relevant to Health Maintenance Insurance MEDICAID - [place] MEDICARE Care Teams High School Vice Principal Relationship Specialty Start Date End Date Mt Hooker MD [address] [place] [address] VIRA Slaughter [phone] PCP - General Internal Medicine 09/26/21
--- OUTSIDE RECORDS SUMMARY | 2025-02-24 13:03 | XMS_ITS | Encounter Summary ---
Author Organization [employer] Address [address] [place] [address] Care Team Providers Care Qualification Engineer Name Role Phone Ally Ferreira MD Primary Care Pro vider Reason for Visit * Reason Comments Med Refill Encounter Details Date Type Department Care Team ([facility] st Contact Info) Description 11/09/2024 Refill [facility] [address], [place] [phone] Kaur Hernandez MD [address] [place] [address] Hypertension, unspecified type Social History Tobacco Use [...] Care Team (Late st Contact Info) Description 03/05/2025 10:45 AM EST Office Visit [facility] [address] [place] [address] Kaur Hernandez MD [address] [place] [address] 06/02/2025 1:00 PM EST Office Visit [facility] [address] [place] [address] Abelardo, Antoinette, OD [address] [place] [address] documented as of this encounter Visit Diagnoses Diagnosis Hypertension, unspecified type documented in this encounter Additional Health Concerns Assessment Noted Time PHQ-9 Depression Total Score: 0 09/03/19 10:22 AM EDT documented as of this encounter Care Teams Qualification Engineer Relationship Specialty Start Date End Date Ally Ferreira MD [address] [place] [address] PCP - General Internal [facility] documented as of this encounter
--- OUTSIDE RECORDS SUMMARY | 2025-02-24 13:04 | XMS_ITS | Clinical Summary ---
Author Organization [employer] Address [address] [place] [address] Care Team Providers Care Manufacturing Shift Supervisor Name Role Phone Ally Ferreira MD [...] the morning. 022 Active [facility] Saline Nasal Keller 0.65 % nasal spray ADMINISTER 1 SPRAY [...] mouth in the morning. Active Continuous Glucose Filters Assembler (Dexcom G6 gift packer) device Use as directed. E10.65 023 Active Liletta, 52 MG, 20.1 MCG/DAY intrauterine device 52 mg by Intrauterine route. 024 Active loratadine (Claritin) 10 MG tablet Take 10 mg by mouth in the morning. 023 Active montelukast (Singulair) 10 MG tablet Take 10 mg by mouth at bedtime. 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 -states getting tx w marine habitat resource specialist- removed from iron pills Peripheral vascular disorder [...] reports to be following with vascular at [facility] --- ---- requested record to Yariel [...] and exercise,discussed healthy life style -to see supervisory forester referred by her endoc Abnormal EKG 08/10/2022 Assessment & Plan (01/11/2023 7:44 PM EDT): -EKG 07/2022 showed now acute ischemic findings there is QTC prolonged to 491 but noted in the past as well -states was seen by cards before unsure reason but w no major findings -found inconclusive stress test done in 2020 -Per pt has been seen by cards at [facility] -sounds possible was evaluated by [...] x1 , HPV x3, hep B x3-immune, afgebalco14 x2 and later p13 in 2019 -will [...] visit , HPV x3, hep B x3, vnymyaokh14 x2 and later p13 in 2019 ,MMRx2,varicellax2 [...] Referred today to -monitor ESRD on hemodialysis ([facility]) 05/25/2022 Assessment & Plan (01/11/2023 7:48 PM EDT): cara rowland 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 -I called today CM from [facility] # [phone] and discussed pt's concern to be taken [...] Plan (08/10/2022 1:01 PM EDT): f w marine habitat resource specialist on HD ( ) In eval x [...] tab of 100 mg?? --px by her marine habitat resource specialist --advised pt to follow w her specialist to confirm dose of med Assessment & Plan (08/10/2022 12:41 PM EDT): BP at home per pt <140/90 Stopped hydralazine by her marine habitat resource specialist for hypotensive episodes after HD Currently denies [...] losartan ? -all meds refilled by her marine habitat resource specialist ,states dont need any meds refilled -f BP at her next apt -advised to check at home and bring readings Hyperlipidemia 09/06/2012 Proteinuria 01/09/2012 03/07/2023 DM (diabetes mellitus), type 1 with renal compli cations 04/16/1958 Assessment & Plan (01/11/2023 8:05 PM EDT): dxed w DM1 at age 11 y of age c/w nephropathy -ESRD on HD complicated w hypoglycemic events f w diet clerk -Dr Morro Amor on novolog SS ( 6 to 8 u TID)and lantus 18 u HS Hb1AC capillary today is 12.3<---12, LDL 86,CBG elevated today at 235 -gun repair clerk referred today -opthalmo has apt for 05/2023 -sent glucose tab-before and would discuss about gluconate at next visit x emergency -continue care w her diet clerk -will hold on doing Changes per [...] HD complicated w hypoglycemic events f w diet clerk -Dr Morro Amor on novolog SS ( 6 to 8 u TID)and lantus 10 u HS --got today records of her last visit w endo in 07/2022 Hb1AC capillary 12 today --from last endo note had hb1AC in 07/2022 10.9? -gun repair clerk referred already by her diet clerk -pd to abigail apt -opthalmo referral today Pt has continuous capillary glucose check marking bw 55 to 400s ----pt takes her readings to her endo office to do changes in meds -to take tomorrow to endo's office -Pd to see a plow mechanic and supervisory forester referred by her diet clerk ----pt recently got the CGM by [...] (end stage renal diseas e) on dialysis ([facility]) 05/25/2022 08/10/2022 Acute osteomyelitis of left foot ([facility]) 12/17/2019 08/10/2022 Encounters Date Type Department Care Team Description 02/23/2025 Telephone [facility] [address] [place] [address] Ally Ferreira MD chartprep 02/18/2025 Orders Only [facility] [address] [place] [address] Ally Noble MD 02/18/2025 Telephone [facility] [address] [place] [address] Ally Ferreira MD Nurse Triage 02/16/2025 Telephone [facility] [address] [place] [address] Ally Ferreira MD Medication Question 02/12/2025 Telephone [facility] [address] [place] [address] Ally Ferreira MD Nurse Triage 02/06/2025 Telephone [facility] [address] [place] [address] Bettye Llamas, treating plant pumper Changes 02/05/2025 Refill [facility] [address] [place] [address] Ally Ferreira MD 02/03/2025 Orders Only GENERIC EXTERNAL DATA DEPARTMENT Provider, Generic External Data 01/29/2025 Telephone [facility] [address] [place] [address] Ally Ferreira MD No Show 01/28/2025 Telephone [facility] [address] [place] [address] Ally Ferreira MD chart prep 01/09/2025 Telephone [facility] [address] [place] [address] Ally Ferreira MD Referral 01/07/2025 Orders Only [facility] [address] [place] [address] Ally Ferreira MD 01/06/2025 Orders Only [facility] [address] [place] [address] Ally Ferreira MD 01/05/2025 Orders Only [facility] [address] [place] [address] Ally Ferreira MD 01/05/2025 Telephone [facility] [address] [place] [address] Ally Ferreira MD Med Refill 01/05/2025 Telephone [facility] [address] [place] [address] Ally Ferreira MD Durable Medical Equipment 01/05/2025 Telephone [facility] [address] [place] [address] Radha Feliciano [place] 01/05/2025 Telephone [facility] [address] [place] [address] Ally Ferreira MD call back needed 01/04/2025 Refill [facility] [address] [place] [address] Greg Stovall MD History of SIVAKUMAR positive for HSV 01/02/2025 Telephone [facility] [address] [place] [address] Ally Ferreira MD FYI 01/02/2025 Patient Outreach [facility] [address] [place] [address] Ally Ferreira MD Transition Of Care (Tcm) (HDF scheduled and SDOH completed on 08/26/24 ) 12/25/2024 Patient Outreach [facility] [address] [place] [address] Ally Ferreira MD Transition Of Care (Tcm) (HDF- Unscheduled ) 12/22/2024 Telephone [facility] [address] [place] [address] Ally Ferreira MD Verbal Order call back 12/05/2024 Results Follow-Up [facility] [address] [place] [address] Bettye Llamas, RN Rast Allergen 12/04/2024 Refill [facility] [address] [place] [address] Ally Ferreira MD Primary hypertension 12/04/2024 Refill [facility] [address] [place] [address] Greg Stovall MD History of SIVAKUMAR positive for HSV 12/04/2024 Refill [facility] [address] [place] [address] Kaur Hernandez MD Hypertension, unspecified type; Primary hypertension 12/02/2024 Orders Only [facility] External Provider, [facility] 12/02/2024 Telephone [facility] [address] [place] [address] Ally Ferreira MD Lab Orders 11/26/2024 Telephone [facility] [address] [place] [address] Ally Ferreira MD oct recall 11/25/2024 1:00 PM EDT Office Visit [facility] [address] [place] [address] Abelardo, Megan, OD 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 (CMS/HCC) (Primary Dx); Epiretinal membrane (ERM) of both eyes; MACHINE DEICER ELEMENT WINDER (central serous retinopathy), left; Pseudophakia of both eyes; Presbyopia 11/25/2024 Travel 11/24/2024 Travel from Last 3 Months Immunizations Immunization Administration Dates Next Due DTP 09/11/1995,01/23/1994 DTaP 09/11/1995,01/23/1994 DTaP / HiB / IPV 05/05/1993,02/22/1993,09/08/199 3 HPV, Quadrivalent 03/31/2008,02/26/2007,01/23/20 07 Hep A, [...] Description 03/05/2025 10:45 AM EST Office Visit [facility] [address] [place] [address] Kaur Hernandez MD [address] [place], [place] [phone] 06/02/2025 1:00 PM EST Office Visit [facility] [address] [place], [place] [phone] Abelardo, Antoinette, OD [address] [place], [place] [phone] Health Maintenance Due Date Last Done Comments Family Planning (PISQ) 09/09/2006 Lipid Panel 09/05/2024 09/06/2023, 04/0 11/2023, 08/11/2022, Additional history exists Diabetes: Hemoglobin A1C 01/15/2025 [...] exists HIV Screening Completed 12/02/2024, 08/15, 08/11/2022 Influenza Vaccine Completed 01/07/2025, , 01/11/2023, Additional history exists Meningococcal B Vaccine Aged Out No l onger eligible based on patient's age to complete this topic RSV under 20 months Aged Out No longe r eligible based on patient's age to complete this topic Rotavirus Vaccines Aged Out No longer eligible based on patient's age to complete this topic Procedures Procedure Name Priority Date/Time Associated Diagnosis Comments CT CHEST WO CONTRAST Routine 02/13/2025 3:28 PM EDT GLUCOSE, WHOLE BLOOD Routine 02/03/2025 12:15 PM [...] Recently Relevant to Health Maintenance Results * CT Chest w/o Contrast (02/13/2025 3:28 PM EDT) Anatomical Region Laterality Modality Body, Chest Computed Tomogra phy 02/13/2025 3:28 PM EDT Narrative 02/13/2025 3:30 PM EDT [place] [address] [address] Scan Report Signed Patient: Natali Mtz MR#: [id number] 0620 : 1990 Acct:[id number] Age/Sex: 34 / F ADM Date: 02/12/25 Loc: HO.CT Attending Dr: Maico Zabala MD Ordering Physician: Maico Zabala MD Date of Service: 02/12/25 Procedure(s): CT chest wo IV con Accession Number(s): [id number] cc: Ally Ferreira MD; Maico Zabala MD Report Number: [id number]: Total DLP = 92.00 mGy-cm Reason for Exam: R91.8 - Other nonspecific abnormal finding of lung field CLINICAL HISTORY: R91.8 - Other nonspecific abnormal finding of lung field CT chest without contrast Comparison: CT/REG/CA/SR - CT CHEST WITHOUT IV CONTRAST - 11/01/23 10:12 EDT Findings: The heart is normal size. Calcification of the coronary vasculature. The visualized thyroid and mediastinum are unremarkable. No evidence of pneumonia or edema. Stable bilateral pulmonary nodules. For example, no change in the 5 mm subpleural nodule within the superior segment left lower lobe posteriorly ( image 47 ). Stable mild scattered regions of tree-in-bud opacity ( for example within the right lower lobe posteriorly on image 66). The visualized upper abdomen is unremarkable. The bones are intact. IMPRESSION: 1. Stable bilateral pulmonary nodules and tree-in-bud pulmonary opacities. 2. Coronary artery disease. This document has been electronically signed by: Clover Garcia MD on 02/13/2025 15:28:43 Dictated By: Clover Garcia MD Signed By: <Electronically signed by Clover Garcia MD in OV> 02/13/25 1529 DD/ 1528 TD/TT: 02/13/25 1528 Acetylene Gas Compressor: Procedure Note Donotuseinterpreter, Image - 02/13/[address] [place] [address] [address] Scan Report Signed Patient: Natali Mtz LMR#: [id number] 0620 : 1990Acct:[id number] Age/Sex: 34 / FADM Date: 02/12/25 Loc: HO.CT Attending Dr: Maico Zabala MD Ordering Physician: Maico Zabala MD Date of Service: 02/12/25 Procedure(s): CT chest wo IV con Accession Number(s): [id number] cc: Ally Ferreira MD; Maico Zabala MD Report Number: [id number]: Total DLP = 92.00 mGy-cm Reason for Exam: R91.8 - Other nonspecific abnormal finding of lung field CLINICAL HISTORY: R91.8 - Other nonspecific abnormal finding of lung field CT chest without contrast Comparison: CT/REG/CA/SR - CT CHEST WITHOUT IV CONTRAST - 11/01/23 10:12 EDT Findings: The heart is normal size. Calcification of the coronary vasculature. The visualized thyroid and mediastinum are unremarkable. No evidence of pneumonia or edema. Stable bilateral pulmonary nodules. For example, no change in the 5 mm subpleural nodule within the superior segment left lower lobe posteriorly ( image 47 ). Stable mild scattered regions of tree-in-bud opacity ( for example within the right lower lobe posteriorly on image 66). The visualized upper abdomen is unremarkable. The bones are intact. IMPRESSION: 1. Stable bilateral pulmonary nodules and tree-in-bud pulmonary opacities. 2. Coronary artery disease. This document has been electronically signed by: Clover Garcia MD on 02/13/2025 15:28:43 Dictated By: Clover Garcia MD Signed By: <Electronically signed by Clover Garcia MD in OV> 02/13/25 1529 DD/ 1528 TD/TT: 02/13/25 1528 Acetylene Gas Compressor: [facility] External Provider IMG CT PROCEDURES Final Result * (ABNORMAL) Glucose, Whole Blood (02/03/2025 12:15 PM EDT) Glucose, Whole Blood 224(H) 60 - 115 mg/dL [facility] Comment:METER #: [id number] Testing performed in the Endocrinology Department [address] , [address], [facility]. 02/03/2025 12:1 5 PM EDT 02/03/2025 12:22 PM EDT Generic External Data Provider LAB BLOOD ORDERAB LES Final Result [facility] [address] [place] [address] [phone] * Acid-Fast Smear (01/07/2025 6:24 AM EDT) Only the most recent of3 resultswithin the time period is included. 01/07/2025 6:24 AM EDT 01/07/2025 3:51 PM EDT Comment:Trachea Narrative [facility] - 02/04/2025 11:33 AM EDT Acid-Fast Smear Acid-Fast Smear Acid-Fast Smear No acid-fast bacilli seen. Test performed by: [employer] [address] [place] [address], 3rd floor, [place] [address] Director: Lori Alba MD CLIA: [id number] Acid-Fast Culture null Acid-Fast Culture null Acid-Fast Culture null Acid-Fast Culture null Acid-Fast Culture null Acid-Fast Culture null Acid-Fast Culture null Acid-Fast Culture null Specimen Source: Trachea Ally Ferguson MD LAB MICROBIOLOGY - GENERAL ORDERABLES Final Result Performing Organization Address [facility] Co de Phone Number [facility] [address] [place] [phone] * Rast Allergen (12/02/2024 4:42 PM EDT) Pathologist [facility] Rast Allergen SEE NOTE [facility] Comment:SEE SCANNED IN EMR 12/02/2024 4:42 PM EDT 12/05/2024 4:42 PM EDT Ally Ferguson MD HISTORICAL/NON OR DERABLE LABS Final Result Performing Organization Address [place]/[facility] Co de Phone Number [facility] [address] [place] [phone] * Syphilis Screen (12/02/2024 4:42 PM EDT) [facility] Syphilis Screen Nonreactive Nonreactive [facility] Blood 12/02/2024 4:42 PM EDT 12/02/2024 4:42 PM EDT Ally Ferguson MD LAB BLOOD ORDERAB LES Final Result Performing Organization Address [place]/[facility] de Phone Number [facility] [address] [place] [phone] * Aspergillus Antigen, EIA, Serum (12/02/2024 4:42 PM EDT) [facility] Aspergillus AG, EIA, Serum Not Detected Not Detected [facility] Comment:A negative result do es [...] with Penicillium marneffei andCryptococcus.THIS TEST WAS PERFORMED AT:[employer] [id number] [place] [address]VKTTRTNANAYA BENITEZ MD,PHD Index Value 0.05 <0.50 [facility] Blood 12/02/2024 4:42 PM EDT 12/02/2024 4:42 PM EDT us Ally Ferguson MD LAB BLOOD ORDERAB LES Final Result [facility] [address] [place] [phone] * (ABNORMAL) Vitamin B12 (Cobalamin) and Folate Panel, Serum (12/02/2024 4:42 PM EDT) Vitamin B12 903(H) 200 - 900 pg/mL [facility] Comment:NORMAL 200-900 PG/ML INDETERMINATE 160-199 PG/ML DEFICIENT < 160 PG/ML Folate 10.9 > or = 4.0 ng/mL [facility] Comment:Reference Values:> o r = [...] Organization Address City/[facility]/ZIP Co de Phone Number [facility] [address] [place] [address] [phone] * T-SPOT??.TB (12/02/2024 4:42 PM EDT) [facility] T Spot TB Negative Negative [facility] Comment:A negative test resu lt [...] as aquantitative test. TS PANEL A 0 [facility] TS PANEL B 0 [facility] Negative Control Passed [facility] Positive Control Passed [facility] Comment:For additional infor pearl, please refer tohttp://education.[employer]last[employer]ile/faq/DJS394(This link is being provided for informational/educational purposes only.)THIS TEST WAS PERFORMED AT:[employer] [id number] [place] [address]FFPAZMCANAYA BENITEZ MD,PHD 12/02/2024 4:42 PM EDT 12/02/2024 4:42 PM EDT us Ally Ferguson MD LAB BLOOD ORDERAB LES Final Result Performing Organization Address City/[facility]/ZIP Co de Phone Number [facility] [address] [place] [phone] [phone] * TSH with Reflex to Free T4 (12/02/2024 4:42 PM EDT) Pathologist [facility] TSH reflex Free T4 0.93 0.32 - 4.0 uIU/mL [facility] Blood 12/02/2024 4:42 PM EDT 12/02/2024 4:42 PM EDT us Ally Ferguson MD LAB BLOOD ORDERAB LES Final Result [facility] [address] [place] [address] [phone] * Strongyloides Antibody (IgG) (12/02/2024 4:42 PM EDT) [facility] Strongyloides Antibody IgG NEGATIVE [facility] Comment:REFERENCE RANGE: NEG ATIVEStrongyloides stercoralis is a parasiticNematode found in tropical and subtropicalregions. Because of low larval densities infeces, stool examination is a relativelyinsensitive diagnostic test; antibody detectionoffers increased sensitivity. Patients withlatent infections who are immunosuppressed orreceiving immunosuppressive therapy are at riskof life- threatening hyperinfection. Significantcrossreactivity may be observed in otherhelminth infections.THIS TEST WAS PERFORMED AT:[employer] [id number] [facility] [place] [address]NHWPOSOHA LYONS MD,PHD,DIANA Blood Venous blood specimen / Unknown 12/02/2024 4:42 PM EDT 12/02/2024 4:42 PM EDT us Ally Ferguson MD LAB BLOOD ORDERAB LES Final Result [facility] [address] [place] [phone] * IgE Antibody (Anti-IgE IgG) (12/02/2024 4:42 PM EDT) [facility] IgE Antibody (Anti-IgE IgG) 13 <168 ng/mL [facility] Comment:This test was develo ped and its analytical performancecharacteristics have been determined by [employer].It has not been cleared or approved by the FDA. This assayhas been validated pursuant to the CLIA regulations and isused for clinical purposes.THIS TEST WAS PERFORMED AT:[employer] [id number] [facility] [address] [address]BOBWESOHA LYONS MD,PHD,DIANA Blood Venous blood specimen / Unknown 12/02/2024 4:42 PM EDT 12/02/2024 4:42 PM EDT Ally Ferguson MD LAB BLOOD ORDERAB LES Final Result Performing Organization Address [facility]/ZIP Co de Phone Number [facility] [address] [place] [phone] * Hepatitis B surface antigen, EIA (12/02/2024 4:42 PM EDT) [facility] Hepatitis B Surface Ag Negative Negative [facility] Blood Venous blood specimen / Unknown 12/02/2024 4:42 PM EDT 12/02/2024 4:42 PM EDT Ally Ferguson MD LAB BLOOD ORDERAB LES Final Result Performing Organization Address [facility] Co de Phone Number [facility] [address] [place] [phone] * HIV-1/2 Antigen and Antibodies, Fourth Generation, with Reflexes (12/02/2024 4:42 PM EDT) [facility] HIV AB/AG Nonreactive Nonreactive [facility] Comment:HIV-1 p24 Ag and/or HIV-1/HIV-2 Ab not detected.A test result that is nonreactive does not exclude thepossibility of exposure to or infection with HIV-1 and/orHIV-2. Nonreactive results in this assay for individualswith prior exposure to HIV-1 and/or HIV-2 may be due toantigen and antibody levels that are below the limit ofdetection of this assay.The [employer] Alinity HIV Ag/Ab Combo assay result andsupplemental assay [...] Final Result Performing Organization Address [facility]/ZIP Co de Phone Number [facility] [address] [place] [address] [phone] * Hepatitis B Surface Antibody, Qualitative (12/02/2024 4:42 PM EDT) ~Hepatitis B Surface Antibody REACTIVE Nonreactive [facility] Comment:REACTIVE: > 11.99 mI U/mL Blood Venous blood specimen / Unknown 12/02/2024 4:42 PM EDT 12/02/2024 4:42 PM EDT us Ally Ferguson MD LAB BLOOD ORDERAB LES Final Result Performing Organization Address [facility] Co de Phone Number [facility] [address] [place] [phone] * XR Foot 3+ Views Right (12/02/2024 3:48 PM EDT) Anatomical Region Laterality Modality Lower Extremities, Foot Right Radiogra phic Imaging 12/02/2024 3:48 PM EDT Narrative 12/02/2024 4:46 PM EDT [facility] [address] [place] [address] XRay Report Signed Patient: Natali Mtz MR#: [id number] 0620 : 1990 Acct:[id number] Age/Sex: 34 / F ADM Date: 12/02/24 Loc: HO.[facility] Attending Dr: Marianne Cartwright MD Ordering Physician: Marianne Cartwright MD Date of Service: 12/02/24 Procedure(s): XR foot RT min 3V Accession Number(s): [id number] cc: Marianne Cartwright MD; Ally Ferreira MD [...] 12/02/24 1643 DD/ 1548 TD/TT: 12/02/24 1554 Acetylene Gas Compressor: Procedure Note Donotuseinterpreter, Image - 12/02/2024 [facility] [address] [place] [address], [place] [address] XRay Report Signed Patient: Natali Mtz LMR#: [id number] 0620 : 1990Acct:[id number] Age/Sex: 34 / FADM Date: 12/02/24 Loc: HO.[facility] Attending Dr: Marianne Cartwright MD Ordering Physician: Marianne Cartwright MD Date of Service: 12/02/24 Procedure(s): XR foot RT min 3V Accession Number(s): [id number] cc: Marianne Cartwright MD; Ally Ferreira MD [...] 12/02/24 1643 DD/ 1548 TD/TT: 12/02/24 1554 Acetylene Gas Compressor: [facility] External Provider IMG XR PROCEDURES Final Result * OCT, Retina - OU - Both Eyes (11/25/2024 3:26 PM EDT) Narrative Antoientte Zhou, OD - 11/25/2024 3:26 PM EDT Images [...] the right eye. 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 Will have patient monitor vision with amsler grid. Will also monitor here in 6 months. Antoinette Zhou OD OPHTH TOMOGRAPHY Final Result * (ABNORMAL) Hemoglobin A1c (10/15/2024) Hemoglobin A1C 8.0(A) 4.0 - 5.7 % Narrative Montse Salgado - 10/15/2024 See labs under care everywhere with matching A1c date Historical Provider HEALTH MAINTENANCE Final Result * Hepatitis C Antibody with Reflex to HCV, RNA, Quantitative, Real-Time PCR (09/06/2023 10:47 AM EDT) Pathologist [facility] Hepatitis C Antibody Nonreactive Nonreactive [facility] Comment:Antibodies to HCV no t detected; does not exclude early acuteHCV infection. Blood Venous blood specimen / Unknown 09/06/2023 10:47 AM EDT 09/06/2023 10:47 AM EDT Ally Ferguson MD LAB BLOOD ORDERAB LES Final Result [facility] [address] [place] [address] [phone] * (ABNORMAL) Lipid Panel, Standard (09/06/2023 10:47 AM EDT) Triglycerides 256(H) <150 mg/dL [facility] Comment:Desirable Triglyceri de: less than 150 mg/dLBorderline High Triglyceride 150-199 mg/dLHigh Triglyceride: 200-499 mg/dLVery High Triglyceride: greater than or equal to 5OO mg/dL Cholesterol 203(H) <200 mg/dL [facility] Comment:Desirable Cholestero l: less than 200 mg/dLBorderline High Cholesterol: 200-239 mg/dLHigh Cholesterol: greater than 239 mg/dL LDL Cholesterol Calculated 123(H) <100 mg/dL [facility] Comment:Desirable LDL: less than 100 mg/dLNear Optimal/Above Optimal LDL: 110- 129 mg/dLBorderline High LDL: 130-159 mg/dLHigh LDL: 160-189 mg/dLVery High LDL: greater than or equal to 190 mg/dL HDL Cholesterol 29(L) >40 mg/dL [facility] Comment:Desirable HDL: great er than 40 mg/dL Note: This HDL assay may give artificially low results in patients with liver disease. Blood Venous blood specimen / Unknown 09/06/2023 10:47 AM EDT 09/06/2023 10:47 AM EDT Ally Ferguson MD LAB BLOOD ORDERAB LES Final Result Performing Organization Address City/[facility]/ZIP Co de Phone Number [facility] [address] [place] [phone] * Pap Smear (05/17/2023 12:00 AM EST) Swab [facility] Provider LAB CYTOLOGY ORDERABLES F inal Result Performing Organization Address City/[facility]/ZIP Co de Phone Number [facility] [address] [place] [address] * HPV mRNA E6/E7 (02/03/2021 9:37 AM EDT) HPV nRNA E6/E7 Not Detected Not Detected [facility] Comment: Methodology: Joy Operator-Mediated Amplification This assay detects E6/E7 viral messenger RNA (mRNA) from 14 high-risk HPV types (16,18,31,33,35,39,45,51,52,56,58,59,66,68). The analytical performance characteristics of this assay have been determined by [employer]. The modifications have not been cleared or approved by the FDA. This assay has been validated pursuant to the CLIA regulations and is used for clinical purposes. For additional information, please refer to http://education.[employer]/faq/ZBT500e0 (This link if provided for information/ educational purposes only.) HPV nRNA E6/E7 Not Detected Not Detected [facility] Comment: Methodology: Joy Operator-Mediated Amplification This assay detects E6/E7 viral messenger RNA (mRNA) from 14 high-risk HPV types (16,18,31,33,35,39,45,51,52,56,58,59,66,68). The analytical performance characteristics of this assay have been determined by [employer]. The modifications have not been cleared or approved by the FDA. This assay has been validated pursuant to the CLIA regulations and is used for clinical purposes. For additional information, please refer to http://education.[employer]faq/QCB422w5 (This link if provided for information/ educational purposes only.) 02/03/2021 9:37 AM EDT us Jen PARK LAB BLOOD ORDERABLES Araceli maher Result [facility] [address] from Last 3 Months or Most Recently Relevant to Health Maintenance Insurance [facility] MEDIC[facility] Care Teams Manufacturing Shift Supervisor Relationship Specialty Start Date End Date Ally Ferreira MD [address] [place] [phone] PCP - General Internal Medicine [facility]
--- OUTSIDE RECORDS SUMMARY | 2025-02-24 13:04 | XMS_ITS | Encounter Summary ---
Author Organization [facility] Address [address] [place] [address] Care Team Providers Care Undergraduate Intern Name Role Phone Ally Ferreira Primary Care Provider [phone] Encounter Details Date Type Department Care Team (Late Contact Info) Description 02/22/2024 Orders Only [facility] Nuclear Medicine [address] [place] [address] Victor Manuel Corado MD PhD [address] [place] [phone] Social History Tobacco Use Types Packs/Day Years [...] Info) Description 02/02/2026 10:40 AM EDT Follow-Up [facility] Renal Transplant [address] [place] [address] Vinicio Harris MD [address] [place] [address] 02/02/2026 11:00 AM EDT Social Work [facility] Renal Transplant [address] [place] [address] Chani Vargas, [address] [address] documented as of this encounter Visit Diagnoses Not on filedocumented in this encounter Care Teams Undergraduate Intern Relationship Specialty Start Date End Date Ally Ferreira [address] [place] [address] PCP - General 02/04/24 documented as of this encounter
--- OUTSIDE RECORDS SUMMARY | 2025-02-24 13:04 | XMS_ITS | Encounter Summary ---
Author Organization [employer] Address [address] [place] [address] 7 [place] [address] Care Team Providers Care Sales And Merchandising Associate Name Role Phone Ally Ferreira MD Primary Care Pro vider Reason for Visit * Reason Onset Date Comments c/b request 01/19/2023 Encounter Details Date Type Department Care Team ([facility] st Contact Info) Description 01/19/2023 Telephone [facility] MEDICINE [address] [place] [address] Ally Ferreira MD [address] [place] [address] c/b request Social History Tobacco Use Types [...] transplant denial. Patient states it was at [facility] that it was denied, due to vascular problems. * Telephone Encounter - Yasmin Krishna RN - 01/23/2023 10:59 AM EDT Telephone call to regarding the following message from Dr. Perry : Please can you check with pt denial was from [facility] or from [facility]? No answer. Message was left to return call to the green team nurses. * Telephone Encounter - Jacinta Porras - 01/19/2023 1:45 PM EDT Tc from pt advising PCP pt was denied for kidney transplant. Please contact pt at [phone] documented in this encounter Plan of Treatment Upcoming Encounters Date Type Department Care Team (Late st Contact Info) Description 03/05/2025 10:45 AM EST Office Visit [facility] MEDICINE [address] [place] [address] Kaur Hernandez MD [address] [place], [place] [phone] 06/02/2025 1:00 PM EST Office Visit [facility] OPTOMETRY [address] [place] [address] Antoinette Zhou, OD [address] [place] [address] documented as of this encounter Visit Diagnoses Not on filedocumented in this encounter Additional Health Concerns Assessment Noted Time PHQ-9 Depression Total Score: 0 08/11/19 9:11 AM EDT documented as of this encounter Care Teams Sales And Merchandising Associate Relationship Specialty Start Date End Date Ally Ferreira MD [address] [place], [place] [phone] PCP - General Internal Medicine [facility] documented as of this encounter
--- OUTSIDE RECORDS SUMMARY | 2025-02-24 13:04 | XMS_ITS | Clinical Summary ---
Author Organization [facility] Address [address] [place] [address] Care Team Providers Care Behavioral Health Associate Name Role Phone Ally Ferreira Primary Care Provider [phone] Allergies Active Allergy Reactions Criticality Noted Date [...] 1 each 3 3 Active Dexcom G6 Steam Hand misc Use as directed. E10.65 1 each [...] Team Description 02/05/2025 11:00 AM EDT Follow-Up [facility] Renal Transplant [address] [place] [address] Vinicio Harris MD Pre-transplant evaluation for kidney transplant (Primary Dx); ESRD (end stage renal disease) 02/05/2025 10:15 AM EDT Social Work [facility] Renal Transplant [address] [place] [address] Michelet Swartz 02/05/2025 9:30 AM EDT Follow-Up [facility] Renal Transplant [address] [place] [address] Antolin Cortes MD PhD ESRD (end stage renal disease) (Primary Dx); Peripheral vascular disease 02/02/2025 Orders Only [facility] Transplant Department [address] [place] [address] Sabina Velázquez RN ESRD (end stage renal disease) (Primary Dx); Pre-transplant evaluation for kidney transplant 02/02/2025 Telephone [facility] Transplant Department [address] [place] [address] Sabina Velázquez RN 01/29/2025 Orders Only [facility] Transplant Department [address] [place] [address] Sabina Velázquez, RUTH ANN ESRD (end stage renal disease) (Primary Dx); Pre-transplant evaluation for kidney transplant 12/22/2024 Telephone [facility] Transplant Department [address] [place] [address] Sabina Velázquez, RUTH ANN 12/06/2024 myChart Message [facility] Renal Transplant [address] [place] [address] Sabina Velázquez, RUTH ANN Your Recent Visit from Last 3 Months Immunizations Immunization Administration Dates Next Due Covid-19 Monovalent Vaccine, Moderna, mRNA, PF 07/09/2020,05/26/2020 [id number] 05/05/1993,02/22/1993,12/22/1992 Diphtheria, Tetanus Toxoids and Acellular Pertussis [...] Info) Description 02/02/2026 10:40 AM EDT Follow-Up [facility] Renal Transplant [address] [place] [address] Viniico Harris MD [address] [place] [address] 02/02/2026 11:00 AM EDT Social Work [facility] Renal Transplant [address] [place] [address] Chani Vargas, PLANT TECHNICIAN/CONTROL ROOM OPERATOR [address] [place] [address] Health Maintenance Due Date Last Done Comments HPV and Pap Smear 1991 Medicare AWV 09/09/1992 Ophthalmology Exam 09/09/2001 Alcohol/Substance Use Screening 04/16/2024 Depression Screening and Follow-Up 04/16/2024 Social Drivers of Health Kalie ual Screening 04/16/2024 COVID-19 Vaccine (8 - 2024-2 6 season) 2024 05/13/2024, 06/12/2023, 01/26/2022, Additional [...] 09/09/2041 04/26/2023, 08/21/2018, 08/02/2018, Additional history exists Varicella Vaccines Completed 07/06/2005, 12/27/2004 Hepatitis B Vaccines Completed 04/16/2019, 09/27/2018, 07/29/2018, Additional history exists Hepatitis C Screening Completed 09/06/2023 , 10/13/2021, 11/30/2020, Additional history exists HIV Screening Completed 12/02/2024, 11/14, 09/06/2023, Additional history exists Influenza Vaccine Completed 01/07/2025, , 01/11/2023, Additional history exists Procedures * Due to [place] [employer] law, this organization might not be sharing [...] to Health Maintenance Results * Due to [place] state law, this organization might not be sharing negative HIV tests. * (ABNORMAL) POCT Glycosylated Hemoglobin (HGB A1C), interfaced (02/27/2023 1:05 PM EST) Hemoglobin A1C, POCT 10.6(H) <=5.6 % 02/27/2023 1:20 PM EST [facility] Comment: A1C Recommendation for Non- Adults with Diabetes: <7.0% ADA 2011 Standards of Medical Care in Diabetes Blood 02/27/2023 1:05 PM EST 02/27/2023 1:20 PM EST us Robert Meredith MD LAB POCT ORDERABLES - DEVICE Final Result [facility] [address] [place] [address], [place] * (ABNORMAL) Basic Metabolic Panel, Outside [...] NON-REACT JOSE RAFAEL 12/01/2020 8:37 AM EDT [facility] Signal To Cut-Off 0.02 <1.00 12/01/2020 8:37 AM EDT [facility] [employer] [facility] Comment: HCV antibody was non-reactive. There is no laboratory evidence of HCV infection. In most cases, no further action is required. However, if recent HCV exposure is suspected, a test for HCV RNA (test code 74469) is suggested. For additional information please refer to http://education.[employer]/faq/HWN48a3 (This link is being provided for informational/ educational purposes only.) Blood Structure of peripheral vein / Unknown Venipuncture / Unknown 11/30/2020 11:09 AM EDT 11/30/2020 11:33 AM EDT Narrative [facility] 12/01/2020 8:37 AM EDT [facility] Received Date: us Stefan Robbins MD LAB BLOOD ORDERABLES Final Result [facility] [address] [facility] [address], [place] [address], [place] [phone] [facility] [address] [facility] [address] Floor, [place] [address], [place] [phone] from Last 3 Months or Most Recently Relevant to Health Maintenance Insurance [address] [place] [address] MEDICARE [facility] [address] [place] [address] MEDICARE [facility] Advance Directives Documents on File Type Date Recorded Patient Cage Clerk Expl anation Health Care Proxy 01/26/2023 10:42 AM 01/18/23 Health Care Proxy 12/11/2019 8:18 AM 11/30 Care Teams Behavioral Health Associate Relationship Specialty Start Date End Date Ally Ferreira [address] [place] [address] PCP - General 02/04/24
--- OUTSIDE RECORDS SUMMARY | 2025-02-24 13:04 | XMS_ITS | Encounter Summary ---
Author Organization [employer] Address [address] [place] [address] 7 [place] [address] Care Team Providers Care Balance Wheel Screw Hole Tapper Name Role Phone Ally Ferreira MD Primary Care Pro vider Reason for Visit * Reason Comments Med Change Request Encounter Details Date Type Department Care Team (Late Contact Info) Description 01/13/2023 Refill [facility] MEDICINE [address] [place] [address] [phone] Ally Ferreira MD [address] [place], [place] [phone] Social History Tobacco Use Types Packs/Day Years [...] Department Care Team (Late Contact Info) Description 03/05/2025 10:45 AM EST Office Visit [facility] MEDICINE [address] [place] [address] [phone] Kaur Hernandez MD [address] [place], [place] [phone] 06/02/2025 1:00 PM EST Office Visit [facility] OPTOMETRY [address] [place], [place] [phone] Antoinette Zhou, OD [address] [place], [place] [phone] documented as of this encounter Visit Diagnoses Not on filedocumented in this encounter Additional Health Concerns Assessment Noted Time PHQ-9 Depression Total Score: 0 08/11/19 23 9:11 AM EDT documented as of this encounter Care Teams Balance Wheel Screw Hole Tapper Relationship Specialty Start Date End Date Ally Ferreira MD [address] [place], [place] [phone] PCP - General Internal Medicine 07/25/22 [facility] 12/25/24 documented as of this encounter
--- OUTSIDE RECORDS SUMMARY | 2025-02-24 13:04 | XMS_ITS | Encounter Summary ---
Author Organization [facility] Address [address] [place] [address] Care Team Providers Care Porcelain Finisher Name Role Phone Ally Ferreira Primary Care Provider [phone] Encounter Details Date Type Department Care Team (Late st Contact Info) Description 01/11/2021 Orders Only [facility] Nuclear Medicine [address] [place] [address] Shiva Duran MD [address] [place] [address] Social History Tobacco Use Types Packs/Day Years [...] Info) Description 02/02/2026 10:40 AM EDT Follow-Up [facility] Renal Transplant [address] [place] [address] Vinicio Harris MD [address] [place] [address] 02/02/2026 11:00 AM EDT Social Work [facility] Renal Transplant [address] [place] [address] Chani Vargas LICSW [address] [place] [address] documented as of this encounter Visit Diagnoses Not on filedocumented in this encounter Care Teams Porcelain Finisher Relationship Specialty Start Date End Date Ally Ferreira [address] [place] [address] PCP - General 02/04/24 documented as of this encounter
--- OUTSIDE RECORDS SUMMARY | 2025-02-24 13:04 | XMS_ITS | Encounter Summary ---
Author Organization [employer] Address [address] 7[address] [place] [address] Care Team Providers Care Slat Basket Maker Helper Name Role Phone [facility] Primary Care Provider [phone] Ally Ferreira MD Primary Care Pro vider Reason for Visit * Reason Comments Med Refill Encounter Details Date Type Department Care Team (Late st Contact Info) Description 06/06/2022 Refill [facility] MED[facility]INE [address] [place], [place] [phone] Adelaide Cano DO [address] [place], [place] [phone] Social History Tobacco Use Types Packs/Day Years [...] AM EST T/C placed to pt via [employer] Controls Engineer Carlos #[id number]. 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 Advised will update provider. documented in this encounter Plan of Treatment Upcoming Encounters Date Type Department Care Team (Late st Contact Info) Description 03/05/2025 10:45 AM EST Office Visit [facility] MEDICINE [address] [place] [address] Kaur Hernandez MD [address] [place] [address] 06/02/2025 1:00 PM EST Office Visit [facility] OPTOMETRY [address] [place], [place] [phone] Antoinette Zhou, OD [address] [place] [address] documented as of this encounter Visit Diagnoses Not on filedocumented in this encounter Care Teams Slat Basket Maker Helper Relationship Specialty Start Date End Date Viri Wall FNP [address] [place] [address] PCP - General Family Medicine 06/06/22 07/24/22 Ally Ferreira MD [address] [place] [address] [phone] PCP - General Internal Medicine 07/25/22 [facility] documented as of this encounter
--- OUTSIDE RECORDS SUMMARY | 2025-02-24 13:04 | XMS_ITS | Encounter Summary ---
Author Organization [facility] Address [address] [place] [address] Care Team Providers Care Client Administrator Name Role Phone Ally Ferreira Primary Care Provider [phone] Encounter Details Date Type Department Care Team (Late st Contact Info) Description 05/07/2023 Orders Only [facility] Nuclear Medicine [address] [place] [address] Shiva Duran MD [address] [place] [address] Social History Tobacco Use Types Packs/Day Years [...] Info) Description 02/02/2026 10:40 AM EDT Follow-Up [facility] Renal Transplant [address] [place] [address] Vinicio Harris MD [address] [place] [address] 02/02/2026 11:00 AM EDT Social Work [facility] Renal Transplant [address] [place] [address] Chani Vargas LICSW [address] [place] [address] documented as of this encounter Visit Diagnoses Not on filedocumented in this encounter Care Teams Client Administrator Relationship Specialty Start Date End Date Ally Ferreira [address] [place] [address] PCP - General 02/04/24 documented as of this encounter
--- OUTSIDE RECORDS SUMMARY | 2025-02-24 13:04 | XMS_ITS | Encounter Summary ---
Author Organization [facility] Address [address] [place] [address] Care Team Providers Care Optical Instrument Specialist Name Role Phone Ally Ferreira Primary Care Provider [phone] Encounter Details Date Type Department Care Team (Late st Contact Info) Description 12/02/2019 Orders Only [facility] Nuclear Medicine [address] [place] [address] Shiva Duran MD [address] [place] [address] Social History Tobacco Use Types Packs/Day Years [...] Info) Description 02/02/2026 10:40 AM EDT Follow-Up [facility] Renal Transplant [address] [place] [address] Vinicio Harris MD [address] [place] [address] 02/02/2026 11:00 AM EDT Social Work [facility] Renal Transplant [address] [place] [address] Chani Vargas LICSW [address] [place] [address] documented as of this encounter Visit Diagnoses Not on filedocumented in this encounter Care Teams Optical Instrument Specialist Relationship Specialty Start Date End Date Ally Ferreira [address] [place] [address] PCP - General 02/04/24 documented as of this encounter
--- OUTSIDE RECORDS SUMMARY | 2025-02-24 13:04 | XMS_ITS ---
Author Organization [facility] Address [address] [place] [address] Care Team Providers Care Television Parts Tester Name Role Phone Ally Ferreira Primary Care Provider [phone] Transplant Episode Kidney Candidate [facility] ([place], [place]) [facility] waitlisted on 12/29/2019 Marked as Inactive on 12/22/2024 Reason: Temporarily too Sick Kidney CoordinatorSabina Velázquez RN Email: N/A Scores Score Value Updated Exceptions/Reas ons CPRA 0 02/23/2025 EPTS (Calc) 37 02/24/2025 [place] Organ Diagnosis Organ Primary Contributory Kidney Diabetes Mellitus - Type I Infection History Noted Survival Infection Treatment Organism Resolved 12/17/2019 Acute osteomyelitis of left foot 03/02/2023 Care Team Name Role Phone Fax Email Sabina Velázquez RN Kidney Coordinator [phone] N/A Vinicio Harris MD Allergist/Pediatric Pulmonologist [phone] [email or web address] [email or web address] [facility] Icer Machine [phone] [email or web address] Forrest Adamson Referring Physician [phone] N/A Events Pre-Transplant Referred: 06/26/2019 Evaluation began: 12/01/2019 Committee: 12/03/2019 UNOS qualified: 07/15/2018 Center waitlisted: 12/29/2019 Appointments (01/24/2025 - 03/26/2025) When With Visit Type Description 02/05/2025 Transplant - [place], R Follow Up 02/05/2025 Transplant - Sophia B Follow Up ESR D (end stage renal disease) (Primary Dx); Peripheral vascular disease 02/05/2025 Transplant - Caren Harris Follow Up Pre -transplant evaluation for kidney transplant (Primary Dx); ESRD (end stage renal disease) Dialysis History Dialysis History Start End Type Comments Center 07/15/2018 In-center Hemodialysis M/W/F SRINI Kaur [facility] Dialysis Center Information Center Phone Fax Address JOANIE [facility] [phone] [address] [facility] [address] SHANIQUE CONSTANTINO [address]
--- OUTSIDE RECORDS SUMMARY | 2025-02-24 13:04 | XMS_ITS | Encounter Summary ---
Author Organization [facility] Address [address] [place] [address] Care Team Providers Care Director Dental Services Name Role Phone Ally Ferreira Primary Care Provider [phone] Encounter Details Date Type Department Care Team (Late st Contact Info) Description 02/09/2021 Orders Only [facility] Nuclear Medicine [address] [place] [address] Shiva Duran MD [address] [place] [address] Social History Tobacco Use Types Packs/Day Years [...] Info) Description 02/02/2026 10:40 AM EDT Follow-Up [facility] Renal Transplant [address] [place] [address] Vinicio Harris MD [address] [place] [address] 02/02/2026 11:00 AM EDT Social Work [facility] Renal Transplant [address] [place] [address] Chani Vargas LICSW [address] [place] [address] documented as of this encounter Visit Diagnoses Not on filedocumented in this encounter Care Teams Director Dental Services Relationship Specialty Start Date End Date Ally Ferreira [address] [place] [address] PCP - General 02/04/24 documented as of this encounter
--- OUTSIDE RECORDS SUMMARY | 2025-02-24 13:04 | XMS_ITS | Encounter Summary ---
Author Organization [employer] Address [address] [facility] [address] 7t [place] [address] Care Team Providers Care Rolloff Driver Name Role Phone Ally Ferreira MD Primary Care Pro vider Reason for Visit * Reason Comments Med Refill Encounter Details Date Type Department Care Team ([facility] st Contact Info) Description 12/04/2024 Refill [facility] MEDICINE 230 [place], [place] [phone] Greg Stovall MD 230 [place] [address] History of SIVAKUMAR positive for HSV Social [...] Description 03/05/2025 10:45 AM EST Office Visit [facility] MEDICINE 230 [place] [address] Kaur Hernandez MD 230 [place] [address] 06/02/2025 1:00 PM EST Office Visit [facility] OPTOMETRY [address] [place] [address] Abelardo, Antoinette, OD 230 [place] [address] documented as of this encounter Visit Diagnoses Diagnosis History of SIVAKUMAR positive for HSV documented in this encounter Additional Health Concerns Assessment Noted Time PHQ-9 Depression Total Score: 0 09/03/19 10:22 AM EDT documented as of this encounter Care Teams Rolloff Driver Relationship Specialty Start Date End Date Ally Ferreira MD 230 [place] [address] PCP - General Internal Medicine [facility] documented as of this encounter
--- OUTSIDE RECORDS SUMMARY | 2025-02-24 13:05 | XMS_ITS | Encounter Summary ---
Author Organization [employer] Address [address] [place] [address] 7 [place] [address] Care Team Providers Care Pattern Scratcher Name Role Phone Ally Ferreira MD Primary Care Pro vider Reason for Visit * Reason Onset Date Comments Referral 05/01/2023 Encounter Details Date Type Department Care Team ([facility] st Contact Info) Description 05/01/2023 Telephone [facility] MEDICINE 230 [place], [place] [phone] Ally Ferreira MD 230 [place], [place] [phone] Referral Social History Tobacco Use Types Packs/Day [...] or irritable 0 05/01/2023 12:38 PM [place] Feeling afraid as if somethi ng awful [...] Description 03/05/2025 10:45 AM EST Office Visit [facility] MEDICINE 230 [place] [address] Kaur Hernandez MD 230 [place] [address] 06/02/2025 1:00 PM EST Office Visit [facility] OPTOMETRY [address] [place], [place] [phone] Antoinette Zhuo, OD 230 [place], [place] [phone] documented as of this encounter Visit Diagnoses Not on filedocumented in this encounter Additional Health Concerns Assessment Noted Time PHQ-9 Depression Total Score: 0 08/11/19 9:11 AM EDT documented as of this encounter Care Teams Pattern Scratcher Relationship Specialty Start Date End Date Ally Ferreira MD 230 [place], [place] [phone] PCP - General Internal Medicine 07/25/22 [facility] 12/25/24 documented as of this encounter
--- OUTSIDE RECORDS SUMMARY | 2025-02-24 13:05 | XMS_ITS | Encounter Summary ---
Author Organization [employer] Address [address] [place] [address] 7 [place] [address] Care Team Providers Care Swim Instructor Name Role Phone Ally Ferreira MD Primary Care Pro vider Reason for Visit * Reason Onset Date Comments Medication Question 02/16/2025 Encounter Details Date Type Department Care Team ([facility] Contact Info) Description 02/16/2025 Telephone [facility] MEDICINE 230 [place], [place] [phone] Ally Ferreira MD 230 [place] [address] Medication Question Social History Tobacco Use Types Packs/Day Years [...] Telephone Encounter - Bethany Montaño RN - 02/24/2025 10:39 AM EST Pt walked in wanting to follow up on medication question below. She reports taking lyrica 25mg 2 tabs daily not as instructed (1 tab 3x daily on dialysis days) due to pain. She would like to see if Rx can be amended. Pt late to HDF today, rescheduled for 03/05/25 per pt schedule. * Telephone Encounter - Trenton Lau - 02/16/2025 11:56 AM EST TC from [facility] with [facility] wanted to report pt was visited on 02/14 . Pt requesting more pregabalin (Lyrica) 25 MG capsule . Natali reports pt has not been taking meds as prescribed due to pain level. Reporting during dialysis days she takes 2x tablets when on dialysis days instead of the one . documented in this encounter Plan of Treatment Upcoming Encounters Date Type Department Care Team ([facility] Contact Info) Description 03/05/2025 10:45 AM EST Office Visit [facility] MEDICINE [address] [place] [address] [phone] Kaur Hernandez MD 230 [place], [place] [phone] 06/02/2025 1:00 PM EST Office Visit [facility] OPTOMETRY [address] [place], [place] [phone] Antoinette Zhou, OD 230 [place], [place] [phone] documented as of this encounter Visit Diagnoses Not on filedocumented in this encounter Additional Health Concerns Assessment Noted Time PHQ-9 Depression Total Score: 0 09/03/19 25 10:22 AM EDT documented as of this encounter Care Teams Swim Instructor Relationship Specialty Start Date End Date Ally Ferreira MD 230 [place], [place] [phone] PCP - General Internal Medicine [facility] documented as of this encounter
--- OUTSIDE RECORDS SUMMARY | 2025-02-24 13:05 | XMS_ITS | Encounter Summary ---
Author Organization [employer] Address [address] [place] [address] 7 [place] [address] Care Team Providers Care Vegetable Washing Machine Operator Name Role Phone Ally Ferreira MD Primary Care Pro vider Reason for Visit * Reason Onset Date Comments chartprep 02/23/2025 Encounter Details Date Type Department Care Team ([facility] st Contact Info) Description 02/23/2025 Telephone [facility] MEDICINE 230 [place], [place] [phone] Ally Ferreira MD 230 [place] [address] chartprep Social History Tobacco Use Types Packs/Day Years [...] encounter Miscellaneous Notes * Telephone Encounter - Randi Clifton [place] - 02/23/2025 2:46 PM EST ..Chart Prep Labs: not applicable Images: done CT chest Vaccines due: Flu Due Referrals: Turbine Engineer appointment pending Screenings: Not Applicable Overdue care gaps: A1C and Glucose documented in this encounter Plan of Treatment Upcoming Encounters Date Type Department Care Team (Late st Contact Info) Description 03/05/2025 10:45 AM EST Office Visit [facility] MEDICINE 230 [place] [address] Kaur Hernandez MD 230 [place] [address] 06/02/2025 1:00 PM EST Office Visit [facility] OPTOMETRY [address] [place], [place] [phone] Antoinette Zhou OD 230 [place] [address] documented as of this encounter Visit Diagnoses Not on filedocumented in this encounter Additional Health Concerns Assessment Noted Time PHQ-9 Depression Total Score: 0 09/03/19 25 10:22 AM EDT documented as of this encounter Care Teams Vegetable Washing Machine Operator Relationship Specialty Start Date End Date Ally Ferreira MD [address] [place] [address] PCP - General Internal Medicine 07/25/22 [facility] documented as of this encounter
--- OUTSIDE RECORDS SUMMARY | 2025-02-24 13:05 | XMS_ITS | Encounter Summary ---
Author Organization [employer] Address [address] [place] [address] 7 [place] [address] Care Team Providers Care Pe Teacher Name Role Phone Ally Ferreira MD Primary Care Pro vider Reason for Visit * Reason Onset Date Comments Nurse Triage 02/18/2025 Encounter Details Date Type Department Care Team ([facility] st Contact Info) Description 02/18/2025 Telephone [facility] MEDICINE 230 [place], [place] [phone] Ally Ferreira MD 230 [place] [address] Nurse Triage Social History Tobacco Use Types [...] encounter Miscellaneous Notes * Telephone Encounter - Iqra Franklin RN - 02/20/2025 2:15 PM EST TC to pt to inform her of message below. No answer, LVM to return call to office and ask for green team nurses. * Telephone Encounter - Iqra Franklin RN - 02/18/2025 2:15 PM EST TC to pt to triage for hand/ wrist pain. pt has been on dialysis for end stage renal disease. pt last had dialysis today. pt has dialysis on M, W, F. pt states wrist is very swollen and painful. pt denies any fevers or any other symptoms. pt states she has been taking her pregabalin x2 day due to pain, pt requesting a refill and a refill for dilaudid as well. pt was also recently in hospital for f luid overload, which may be cause of symptoms today. pt r/s for Hospital f/u on 02/24/[address] Snell at 9:30, pt feels okay to wait. nurse advised pt that we will send a refill request to PCP and to return call to office with any concerns. pt agrees to plan. Protocol Used: Wrist Pain (Adult) Protocol-Based Disposition: See in Office or Video Visit within 3 Days Video visit offered and caller accepted Positive Triage Questions: * Moderate pain (e.g., interferes with normal activities) and present > 3 days * Patient wants to be seen * Mild pain (e.g., does not interfere with normal activities) and present > 7 days * Wrist pain is a chronic symptom (recurrent or ongoing AND present > 4 weeks) * All higher-acuity triage questions were negative Care Advice Discussed: * Reasons To Call Back - Severe pain lasts over 2 hours after pain medicine - Signs of infection occur (such as spreading redness, warmth, fever) - You become worse * Telephone Encounter - Iqra Franklin RN - 02/18/2025 1:34 PM EST TC placed to pt to triage wrist/ hand pain. . No answer, LVM. Nurse to reattempt in 15 minutes * Telephone Encounter - Dain Rothman - 02/18/2025 12:10 PM EST Symptom: Hand or Wrist Pain - Not From Injury Outcome: Schedule an urgent appointment (within 1 hour) or talk to a nurse or provider soon Reason: Severe pain now The caller accepted this outcome. Contact pt at [phone] documented in this encounter Plan of Treatment Upcoming Encounters Date Type Department Care Team (Late st Contact Info) Description 03/05/2025 10:45 AM EST Office Visit [facility] MEDICINE 230 [place] [address] Kaur Hernandez MD 230 [place] [address] 06/02/2025 1:00 PM EST Office Visit [facility] OPTOMETRY 267 [place] [address] Antoinette Zhou, OD 230 [place] [address] documented as of this encounter Visit Diagnoses Not on filedocumented in this encounter Additional Health Concerns Assessment Noted Time PHQ-9 Depression Total Score: 0 09/03/19 10:22 AM EDT documented as of this encounter Care Teams Pe Teacher Relationship Specialty Start Date End Date Ally Ferreira MD [address] [place] [address] PCP - General Internal Medicine 07/[facility]22 [facility] documented as of this encounter
--- OUTSIDE RECORDS SUMMARY | 2025-02-24 13:05 | XMS_ITS | Encounter Summary ---
Author Organization [employer] Address [address] [facility] [address] 7t [place] [address] Care Team Providers Care Reel Man Name Role Phone Ally Ferreira MD Primary Care Pro vider Reason for Visit * Reason Comments Med Refill Encounter Details Date Type Department Care Team ([facility] st Contact Info) Description 05/01/2023 Refill [facility] MEDICINE 230 [place], [place] [phone] Jen Lozoya, VIVIAN [address] [place] [address] Social History Tobacco Use Types Packs/Day Years [...] Description 03/05/2025 10:45 AM EST Office Visit [facility] MEDICINE [address] [place] [address] Kaur Hernandez MD 230 [place] [address] 06/02/2025 1:00 PM EST Office Visit [facility] OPTOMETRY [address] [place] [address] Antoinette Zhou, OD 230 [place] [address] documented as of this encounter Visit Diagnoses Not on filedocumented in this encounter Additional Health Concerns Assessment Noted Time PHQ-9 Depression Total Score: 0 08/11/19 9:11 AM EDT documented as of this encounter Care Teams Reel Man Relationship Specialty Start Date End Date Ally Ferreira MD 230 [place] [address] PCP - General Internal Medicine 07/25/22 [facility] 12/25/24 documented as of this encounter
--- OUTSIDE RECORDS SUMMARY | 2025-02-24 13:05 | XMS_ITS | Encounter Summary ---
Author Organization [employer] Address 75 [facility] 7t [place] [address] Care Team Providers Care Chaser Apprentice Name Role Phone Ally Ferreira MD Primary Care Pro vider Reason for Visit * Reason Comments Med Refill Encounter Details Date Type Department Care Team ([facility] Contact Info) Description 09/02/2022 Refill [facility] MEDICINE 230 [place] [address] Blair Lopez AGNP Hypertension, unspecified [...] Upcoming Encounters Date Type Department Care Team ([facility] Contact Info) Description 03/05/2025 10:45 AM EST Office Visit [facility] MEDICINE 230 [place] [address] Kaur Hernandez MD 230 [place] [address] 06/02/2025 1:00 PM EST Office Visit [facility] OPTOMETRY [address] [place], [place] [phone] Abelardo, Antoinette, OD 230 [place] [address] documented as of this encounter Visit Diagnoses Diagnosis Hypertension, unspecified type documented in this encounter Additional Health Concerns Assessment Noted Time PHQ-9 Depression Total Score: 0 08/11/19 23 9:11 AM EDT documented as of this encounter Care Teams Chaser Apprentice Relationship Specialty Start Date End Date Ally Ferreira MD 230 [place] [address] PCP - General Internal Medicine 07/25/22 [facility] documented as of this encounter
--- OUTSIDE RECORDS SUMMARY | 2025-02-24 13:05 | XMS_ITS | Encounter Summary ---
Author Organization [employer] Address [address] [place] [address] 7 [place] [address] Care Team Providers Care Gas Engine Repairer Name Role Phone Ally Ferreira MD Primary Care Pro vider Reason for Visit * Reason Comments Med Refill Encounter Details Date Type Department Care Team (Late Contact Info) Description 09/02/2022 Refill [facility] MEDICINE 230 [place], [place] [phone] Ally Ferreira MD 230 [place] [address] Social History Tobacco Use Types Packs/Day Years [...] Description 03/05/2025 10:45 AM EST Office Visit [facility] MEDICINE [address] [place] [address] Kaur Hernandez MD 230 [place], [place] [phone] 06/02/2025 1:00 PM EST Office Visit [facility] OPTOMETRY [address] [place], [place] [phone] Antoinette Zhou, OD 230 [place], [place] [phone] documented as of this encounter Visit Diagnoses Not on filedocumented in this encounter Additional Health Concerns Assessment Noted Time PHQ-9 Depression Total Score: 0 08/11/19 23 9:11 AM EDT documented as of this encounter Care Teams Gas Engine Repairer Relationship Specialty Start Date End Date Ally Ferreira MD 230 [place], [place] [phone] PCP - General Internal Medicine 07/25/22 [facility] documented as of this encounter
--- OUTSIDE RECORDS SUMMARY | 2025-02-24 13:05 | XMS_ITS | Encounter Summary ---
Author Organization [employer] Address [address] [facility] [address] 7t [place] [address] Care Team Providers Care Accounting Associate Name Role Phone Ally Ferreira MD Primary Care Pro vider Encounter Details Date Type Department Care Team (Late st Contact Info) Description 02/18/2025 Orders Only [facility] MEDICINE 230 [place], [place] [phone] Ally Noble MD 230 [place] [address] Social History Tobacco Use Types Packs/Day Years [...] Description 03/05/2025 10:45 AM EST Office Visit [facility] MEDICINE 230 [place] [address] Kaur Hernandez MD 230 [place] [address] 06/02/2025 1:00 PM EST Office Visit [facility] OPTOMETRY [address] [place] [address] Abelardo, Antoinette, OD 230 [place] [address] documented as of this encounter Visit Diagnoses Not on filedocumented in this encounter Additional Health Concerns Assessment Noted Time PHQ-9 Depression Total Score: 0 09/03/19 10:22 AM EDT documented as of this encounter Care Teams Accounting Associate Relationship Specialty Start Date End Date Ally Ferreira MD 230 [place] [address] PCP - General Internal Medicine 07/25/22 [facility] documented as of this encounter
--- OUTSIDE RECORDS SUMMARY | 2025-02-24 13:05 | XMS_ITS | Encounter Summary ---
Author Organization [employer] Address [address] [facility] [address] [place] [address] Care Team Providers Care Stonecutter Hand Name Role Phone Viri Wall Primary Care Provider [phone] Ally Ferreira MD Primary Care Pro vider Reason for Visit * Reason Comments Med Refill Encounter Details Date Type Department Care Team (Late st Contact Info) Description 06/06/2022 Refill [facility] MEDICINE 230 [place], [place] [phone] Name, MD Dain 230 [place], [place] [phone] Primary hypertension (Primary Dx) Social History Tobacco [...] Description 03/05/2025 10:45 AM EST Office Visit [facility] MEDICINE 230 [place] [address] Kaur Hernandez MD 230 [place] [address] 06/02/2025 1:00 PM EST Office Visit [facility] OPTOMETRY [address] [place] [address] Antoinette Zhou, OD 230 [place] [address] documented as of this encounter Visit Diagnoses Diagnosis Primary hypertension- Primary Unspecified essential hypertension documented in this encounter Care Teams Stonecutter Hand Relationship Specialty Start Date End Date Viri Wall FNP 230 [place] [address] PCP - General Family Medicine 06/06/22 07/24/22 Ally Ferreira MD 230 [place] [address] PCP - General Internal Medicine 07/25/22 [facility] documented as of this encounter
== END 2025-02-24 11:24 | disposition home or self-care (01) ==
LOC: HO.ENCR 10:56
PROVIDERS: PCP Student in an Organized Health Care Education/Training Program; Visit Provider Registered Nurse Diabetes Educator
DX: E10.65 Type 1 diabetes mellitus with hyperglycemia (principal)

== ENCOUNTER → 2025-02-24 10:55 | Outpatient (BNVA) | payer MEDICARE, MEDICAID, SELFPAY | PROVIDERS: PCP Student in an Organized Health Care Education/Training Program; Visit Provider Registered Nurse Diabetes Educator | DX: E10.65 Type 1 diabetes mellitus with hyperglycemia (principal) | CPT/HCPCS: 99211 ==

== ENCOUNTER 2025-03-05 12:58 | Outpatient (REF) | payer MEDICARE, MEDICAID, SELFPAY ==
--- OUTSIDE RECORDS SUMMARY | 2025-03-05 18:36 | XMS_ITS | Encounter Summary ---
Author Organization [facility] Address [address] [place] [address] Care Team Providers Care Nuclear Plant Construction Worker Name Role Phone Ally Ferreira Primary Care Provider [phone] Encounter Details Date Type Department Care Team (Late st Contact Info) Description 12/02/2019 Orders Only [facility] Nuclear Medicine [address] [place] [address] Shiva Duran MD [address] [place] [address] Social History Tobacco Use Types Packs/Day Years [...] Info) Description 02/02/2026 10:40 AM EDT Follow-Up [facility] Renal Transplant [address] [place] [address] Vinicio Harris MD [address] [place] [address] 02/02/2026 11:00 AM EDT Social Work [facility] Renal Transplant [address] [place] [address] Chani Vargas LICSW [address] [place] [address] documented as of this encounter Visit Diagnoses Not on filedocumented in this encounter Care Teams Nuclear Plant Construction Worker Relationship Specialty Start Date End Date Ally Ferreira [address] [place] [address] PCP - General 02/04/24 documented as of this encounter
--- OUTSIDE RECORDS SUMMARY | 2025-03-05 18:36 | XMS_ITS | Encounter Summary ---
Author Organization [facility] Address [address] [place] [address] Care Team Providers Care Room Cleaner Name Role Phone Ally Ferreira Primary Care Provider [phone] Encounter Details Date Type Department Care Team (Late st Contact Info) Description 01/11/2021 Orders Only [facility] Nuclear Medicine [address] [place] [address] Shiva Duran MD [address] [place] [address] Social History Tobacco Use Types Packs/Day Years [...] Info) Description 02/02/2026 10:40 AM EDT Follow-Up [facility] Renal Transplant [address] [place] [address] Vinicio Harris MD [address] [place] [address] 02/02/2026 11:00 AM EDT Social Work [facility] Renal Transplant [address] [place] [address] Chani Vargas LICSW [address] [place] [address] documented as of this encounter Visit Diagnoses Not on filedocumented in this encounter Care Teams Room Cleaner Relationship Specialty Start Date End Date Ally Ferreira [address] [place] [address] PCP - General 02/04/24 documented as of this encounter
--- OUTSIDE RECORDS SUMMARY | 2025-03-05 18:36 | XMS_ITS ---
Author Organization [facility] Address [address] [place] [address] Care Team Providers Care Internet Application Developer Name Role Phone Ally Ferreira Primary Care Provider [phone] Transplant Episode Kidney Candidate [facility] ([place] [place]) - [facility] waitlisted on 12/29/2019 Marked as Inactive on 12/22/2024 Reason: Temporarily too Sick Kidney CoordinatorSabina Velázquez RN Email: N/A Scores Score Value Updated Exceptions/Reas ons CPRA 0 02/23/2025 EPTS (Calc) 37 03/05/2025 [place] Organ Diagnosis Organ Primary Contributory Kidney Diabetes Mellitus - Type I Infection History Noted Survival Infection Treatment Organism Resolved 12/17/2019 Acute osteomyelitis of left foot 03/02/2023 Care Team Name Role Phone Fax Email Sabina Velázquez RN Kidney Coordinator [phone] N/A Vinicio Harris MD Concrete Placement Equipment Operator [phone] [email or web address] Vargas [facility] Truck Terminal Manager [phone] [email or web address] Forrest Adamson Referring Physician [phone] N/A Events Pre-Transplant Referred: 06/26/2019 Evaluation began: 12/01/2019 Committee: 12/03/2019 [facility] qualified: 07/15/2018 Center waitlisted: 12/29/2019 Appointments (02/02/2025 - 04/04/2025) When With Visit Type Description 02/05/2025 Transplant [...] Center 07/15/2018 In-center Hemodialysis M/W/F SRINI Kaur [facility] Dialysis Center Information Center Phone Fax Address JOANIE [facility] [phone] [address] [facility] [address] SHANIQUE CONSTANTINO [address]
--- OUTSIDE RECORDS SUMMARY | 2025-03-05 18:36 | XMS_ITS | Encounter Summary ---
Author Organization [facility] Address [address] [place] [address] Care Team Providers Care Avionics Mechanic Name Role Phone Ally Ferreira Primary Care Provider [phone] Encounter Details Date Type Department Care Team (Late st Contact Info) Description 05/07/2023 Orders Only [facility] Nuclear Medicine [address] [place] [address] Shiav Duran MD [address] [place] [address] Social History Tobacco Use Types Packs/Day Years [...] Info) Description 02/02/2026 10:40 AM EDT Follow-Up [facility] Renal Transplant [address] [place] [address] Vinicio Harris MD [address] [place] [address] 02/02/2026 11:00 AM EDT Social Work [facility] Renal Transplant [address] [place] [address] Chani Vargas LICSW [address] [place] [address] documented as of this encounter Visit Diagnoses Not on filedocumented in this encounter Care Teams Avionics Mechanic Relationship Specialty Start Date End Date Ally Ferreira [address] [place] [address] PCP - General 02/04/24 documented as of this encounter
--- OUTSIDE RECORDS SUMMARY | 2025-03-05 18:36 | XMS_ITS | Clinical Summary ---
Author Organization [facility] Address [address] [place] [address] Care Team Providers Care Communications Technologist Name Role Phone Ally Ferreira Primary Care Provider [phone] Allergies Active Allergy Reactions Criticality Noted Date [...] 1 each 3 3 Active Dexcom G6 Analog Circuit Designer misc Use as directed. E10.65 1 each [...] Team Description 02/05/2025 11:00 AM EDT Follow-Up [facility] Renal Transplant [address] [place] [address] Vinicio Harris MD Pre-transplant evaluation for kidney transplant (Primary Dx); ESRD (end stage renal disease) 02/05/2025 10:15 AM EDT Social Work [facility] Renal Transplant [address] [place] [address] Michelet Swartz 02/05/2025 9:30 AM EDT Follow-Up [facility] Renal Transplant [address] [place] [address] Antolin Cortes MD PhD ESRD (end stage renal disease) (Primary Dx); Peripheral vascular disease 02/02/2025 Orders Only [facility] Transplant Department [address] [place] [address] Sabina Velázquez RN ESRD (end stage renal disease) (Primary Dx); Pre-transplant evaluation for kidney transplant 02/02/2025 Telephone [facility] Transplant Department [address] [place] [address] Sabina Velázquez RN 01/29/2025 Orders Only [facility] Transplant Department [address] [place] [address] Sabina Velázquez, RUTH ANN ESRD (end stage renal disease) (Primary Dx); Pre-transplant evaluation for kidney transplant 12/22/2024 Telephone [facility] Transplant Department [address] [place] [address] Sabina Velázquez, RUTH ANN 12/06/2024 myChart Message [facility] Renal Transplant [address] [place] [address] Sabina Velázquez, RUTH ANN Your Recent Visit from Last 3 Months Immunizations Immunization Administration Dates Next Due Covid-19 Monovalent Vaccine, Moderna, mRNA, PF 07/09/2020,05/26/2020 [id number] 05/05/1993,02/22/1993,12/22/1992 Diphtheria, Tetanus Toxoids and Acellular Pertussis [...] Follow-Up [facility] Renal Transplant [address] [place] [address] Vinicio Harris MD [address] [place] [address] 02/02/2026 11:00 AM EDT Social Work [facility] Renal Transplant [address] [place] [address] Chani Vargas, MACHINE HEEL SPRAYER [address] [place] [address] Health Maintenance Due Date Last Done Comments [...] Additional history exists Procedures * Due to [place] [employer] law, this organization might not be sharing [...] 10.6(H) <=5.6 % 02/27/2023 1:20 PM EST [facility], POC Comment: A1C Recommendation for Non- Adults with Diabetes: <7.0% ADA 2011 Standards of Medical Care in Diabetes Blood 02/27/2023 1:05 PM EST 02/27/2023 1:20 PM EST us Robert Meredith MD LAB POCT ORDERABLES - DEVICE Final Result [facility], POC [address] [place] [address], [place] * (ABNORMAL) Basic Metabolic Panel, Outside [...] NON-REACT JOSE RAFAEL 12/01/2020 8:37 AM EDT [employer] [facility] Signal To Cut-Off 0.02 <1.00 12/01/2020 8:37 AM EDT [employer] [facility] Comment: HCV antibody was non-reactive. There is no laboratory evidence of HCV infection. In most cases, no further action is required. However, if recent HCV exposure is suspected, a test for HCV RNA (test code 13101) is suggested. For additional information please refer to http://education.obiwon/faq/EWD30k2 (This link is being provided for informational/ educational purposes only.) Blood Structure of peripheral vein / Unknown Venipuncture / Unknown 11/30/2020 11:09 AM EDT 11/30/2020 11:33 AM EDT [facility]ative [facility]/01/2020 8:37 AM EDT [facility] Received Date: us Stefan Robbins MD LAB BLOOD ORDERABLES Final Result [facility] [address], [place] [address], [place] [phone] [employer] [facility] [address], [place] [address], [place] [phone] from Last 3 Months or Most Recently Relevant to Health Maintenance Insurance [address] [place] [address] MEDICARE [facility] [address] [place] [address] MEDICARE [facility] Advance Directives Documents on File Type Date Recorded Patient Vault Teller Expl anation Health Care Proxy 01/26/2023 10:42 AM 01/18/23 Health Care Proxy 12/11/2019 8:18 AM 11/30 Care Teams Communications Technologist Relationship Specialty Start Date End Date Ally Ferreira [address] [place] [id number] PCP - General 02/04/24
--- OUTSIDE RECORDS SUMMARY | 2025-03-05 18:36 | XMS_ITS | Encounter Summary ---
Author Organization [facility] Address [address] [place] [address] Care Team Providers Care Pediatric Associate Name Role Phone Ally Ferreira Primary Care Provider [phone] Encounter Details Date Type Department Care Team (Late Contact Info) Description 02/22/2024 Orders Only [facility] Nuclear Medicine [address] [place] [address] Victor Manuel Corado MD PhD [address] [place] [address] Social History Tobacco Use Types Packs/Day Years [...] Info) Description 02/02/2026 10:40 AM EDT Follow-Up [facility] Renal Transplant [address] [place] [address] Vinicio Harris MD [address] [place] [address] 02/02/2026 11:00 AM EDT Social Work [facility] Renal Transplant [address] [place] [address] Chani Vargas, [address] [address] documented as of this encounter Visit Diagnoses Not on filedocumented in this encounter Care Teams Pediatric Associate Relationship Specialty Start Date End Date Ally Ferreira [address] [place] [address] PCP - General 02/04/24 documented as of this encounter
--- OUTSIDE RECORDS SUMMARY | 2025-03-05 18:36 | XMS_ITS | Encounter Summary ---
Author Organization [facility] Address [address] [place] [address] Care Team Providers Care Plywood Patcher Name Role Phone Ally Ferreira Primary Care Provider [phone] Encounter Details Date Type Department Care Team (Late st Contact Info) Description 02/09/2021 Orders Only [facility] Nuclear Medicine [address] [place] [address] Shiva Duran MD [address] [place] [address] Social History Tobacco Use Types Packs/Day Years [...] Info) Description 02/02/2026 10:40 AM EDT Follow-Up [facility] Renal Transplant [address] [place] [address] Vinicio Harris MD [address] [place] [address] 02/02/2026 11:00 AM EDT Social Work [facility] Renal Transplant [address] [place] [address] Chani Vargas LICSW [address] [place] [address] documented as of this encounter Visit Diagnoses Not on filedocumented in this encounter Care Teams Plywood Patcher Relationship Specialty Start Date End Date Ally Ferreira [address] [place] [phone] PCP - General 02/04/24 documented as of this encounter
== END 2025-03-05 12:59 | disposition home or self-care (01) ==
LOC: HO.LAB 12:58
PROVIDERS: Internal Medicine; PCP Student in an Organized Health Care Education/Training Program; Visit Provider Student in an Organized Health Care Education/Training Program
DX: R79.89 Other specified abnormal findings of blood chemistry (principal); R97.8 Other abnormal tumor markers
CPT/HCPCS: 36415; 84702